=== PATIENT | female | born 1945 | race Caucasian/White ===

== ENCOUNTER 2022-12-01 08:49 | Outpatient (CLI) | payer MEDICARE, SELFPAY ==
--- NOTE | ~2022-12-01 | MM_ITS ---
EXAMINATION: MM screening leigh BI w fanta HISTORY: Screening TECHNIQUE: Craniocaudal and mediolateral oblique 3-D tomosynthesis images were obtained and synthetic 2-D images were generated. CAD analysis was submitted and interpreted. COMPARISON: No prior mammogram is available for comparison at this institution. BREAST PARENCHYMAL COMPOSITION: There are scattered areas of fibroglandular density. FINDINGS: There is no evidence of suspicious mass, calcification, or architectural distortion to sugg est malignancy in either breast. There has been no suspicious interval change. IMPRESSION: 1. No mammographic evidence of malignancy. 2. Recommend routine screening mammography in one year. BI-RADS Category 1: Negative Reviewed, dictated and finalized at location A.
== END 2022-12-01 08:50 | disposition home or self-care (01) ==
PROVIDERS: PCP Physician Assistant; Visit Provider Physician Assistant
DX: Z12.31 Encounter for screening mammogram for malignant neoplasm of breast (principal)
CPT/HCPCS: 77063; 77067

== ENCOUNTER 2023-09-09 08:01 | Outpatient (CLI) | payer MEDICARE, SELFPAY ==
--- NOTE | ~2023-09-09 | CT_ITS ---
EXAMINATION: CT brain wo con DATE: 09/09/2023 08:25 INDICATION: Syncope and collapse . TECHNIQUE: Computed tomography (CT) of the head was performed without intravenous contrast. The mA wa s adjusted according to patient size. Iterative reconstruction technique was employed. The dose-lengt h product was 645.69 mGy-cm. COMPARISON: None. FINDINGS: No acute intracranial hemorrhage or extra-axial fluid collection. No hydrocephalus, mass, or herniation. No acute ischemic infarct. Unremarkable dural venous sinus attenuation. No acute osseous abnormality. Bilateral maxillary retention cysts/polyps, the remaining aerated spaces are clear. Mild atrophy and chronic white matter change. Atherosclerotic intracranial calcification. Bilateral l ens replacements. IMPRESSION: No acute intracranial process. Reviewed, dictated and finalized at location K.
== END 2023-09-09 08:02 ==
LOC: GOSHIMG 08:03
PROVIDERS: PCP Physician Assistant; Visit Provider Nurse Practitioner
DX: R55 Syncope and collapse (principal)
CPT/HCPCS: 70450

== ENCOUNTER 2023-09-23 09:23 | Outpatient (CLI) | payer MEDICARE, SELFPAY ==
--- NOTE | 2023-09-23 09:35 | ECHO_ITS ---
Patient Info Name: Berenice Alex Age: 77 years : 1945 Gender: Female Ht: 62 in Wt: 140 lbs BSA: 1.68 m2 HR: 50 bpm BP: 167 / 72 mmHg Heart Rhythm: Sinus Rhythm Technical Quality: Good Exam Date: 09/23/2023 9:53 AM Exam Location: Echo Lab Patient Status: Outpatient Admit Date: 09/23/2023 Staff Ordering Physician: Baljinder Swartz APRN Product Management Specialist: Kd Hughes RDCS Attending Provider: Baljinder Swartz APRN Referring Physician: Cale Romano MD; Exam Type: CA echo doppler color flow Study Info Indications R55 - Syncope and collapse Complete two-dimensional, color flow and Doppler transthoracic echocardiogram is performed. Summary 1. Complete two-dimensional, color flow and Doppler transthoracic echocardiogram is performed. 2. Normal left ventricular size thickness and contractility. 3. Mild left atrial enlargement. 4. Mild MR. 5. Small amount of tricuspid regurgitation, normal RV systolic pressure. Left Ventricle Left ventricular chamber dimension is normal. Left ventricular systolic function is normal, estimated at 65-70%. The left ventricular diastolic function is normal. Right Ventricle Right ventricular chamber dimension is normal. Left Atria Left atrial chamber dimension is mildly enlarged. Right Atria Right atrial chamber dimension is normal. Aortic Valve The aortic valve is trileaflet. There is mild aortic valve sclerosis. Pulmonic Valve The pulmonic valve is normal. Mitral Valve The mitral valve has normal leaflets. There is mild mitral valve regurgitation. Tricuspid Valve The tricuspid valve leaflets are normal. There is mild tricuspid valve regurgitation. No pulmonary hypertension, estimated pulmonary arterial systolic pressure is Empty. Pericardium/Pleural The pericardium appears normal. Aorta The prox ascending aorta size is normal. Left Ventricular Outflow Tract Name Value Normal LVOT 2D LVOT Diameter 1.9 cm LVOT Doppler LVOT Peak Gradient 9 mmHg LVOT Mean Gradient 5 mmHg LVOT VTI 35 cm LVOT VTI/AV VTI Ratio 0.8 LVOT Stroke Volume 98 ml LVOT CO 4.8 l/min LVOT CI 2.9 l/min/m2 Pulmonic Valve Name Value Normal PV Doppler PV Peak Gradient 6 mmHg Mitral Valve Name Value Normal MV Doppler MV Peak Gradient 4 mmHg MV Mean Gradient 1 mmHg MV Decel [place] 442 cm/s2 MV PHT 56 ms MV Area (
--- NOTE | 2023-10-29 15:34 | WPDHOLTEREM ---
Holter/Event Monitor Holter/Event Monitor Date of procedure: 09/23/23 Holter/Event Procedure: 48 Hr Holter Monitor Indications: Possible atrial fib Conclusion: 1. 48 hour holter monitor on 09/23/23. 2. Predominant rhythm is sinus rhythm. HR range 39-90 bpm; average HR 56 bpm. HR at 39 bpm was at 02:52. 3. There are 166 premature supraventricular complexes and 29 supraventricular couplets. There are 3 episodes of atrial tachycardia, fastest at 160 bpm and longest lasting 4 beats. 4. There are 9 premature ventricular complexes. No ventricular tachycardia. 5. No sinoatrial or atrioventricular blocks. No significant pauses greater than 2 seconds. 6. No symptoms available for correlation.
== END 2023-09-23 09:24 | disposition home or self-care (01) ==
PROVIDERS: PCP Nurse Practitioner; Referring Provider Specialist; Visit Provider Nurse Practitioner
DX: I36.1 Nonrheumatic tricuspid (valve) insufficiency (principal); I34.0 Nonrheumatic mitral (valve) insufficiency
CPT/HCPCS: 93225; 93226; 93306

== ENCOUNTER 2024-10-31 08:49 | Outpatient (CLI) | payer MEDICARE, SELFPAY ==
--- NOTE | ~2024-10-31 | DEXA_ITS ---
Bone Density Report Name: PAULINO VALENCIA Age: 78 Sex: Female Ethnicity: White Date of : 1945 Indication: postmenopausal; screening for osteoporosis; height loss; hysterectomy; Referring Provider: IRMA WELDON Study: Bone densitometry was performed. Exam Date: October 31, 2024 Accession number: [id number] Bone Density: Region BMD T-score Z-score Classification AP Spine(L1-L4) 1.215 1.5 4.0 Normal Femoral Neck (Left) 0.645 -1.8 0.3 Osteopenia Total Hip (Left) 0.931 -0.1 1.8 Normal Femoral Neck (Right) 0.691 -1.4 0.7 Osteopenia Total Hip (Right) 0.941 0.0 1.9 Normal Total Hip Mean 0.936 -0.1 1.9 Normal World Health Organization criteria for BMD impression classify patients as: Normal (T-score at or above -1.0), Osteopenia (T-score between -1.0 and -2.5), or Osteoporosis (T-score at or below -2.5). 10-year Fracture Risk(1): Major Osteoporotic Fracture 13% Hip Fracture 3.3% Reported Risk Factors: [place] (), Neck BMD=0.645, BMI=28.3 (1) FRAX(R) Version 3.08. Fracture probability calculated for an untreated patient. Fracture probability may be lower if the patient has received treatment. Clinical Information Provided by Patient: Has used the following medications: Vitamin D Has the following medical conditions: Hysterectomy Patient maximum height was 62 Menopause Age: 52 No regular weight bearing exercise Drinks caffeinated beverages Onset of menses at age 16 Number of children 0 Impression: The patient has low bone mass, based on the Left Femoral Neck T-score. The patient has an estimated ten-year risk of hip fracture of 3.3% and an estimated ten-year risk of major fracture of 13%, based on the WHO FRAX algorithm. Discussion: BONE DENSITY IS LOW AT ONE OR MORE SKELETAL SITES. THE PATIENT'S BMD AND CLINICAL RISK FACTORS CONTRIBUTE TO THIS PATIENT'S INCREASED RISK OF FRACTURE. This patient's lowest T-score is low at one or more skeletal sites. It meets the World Health Organization's (WHO) criteria for ?low bone mass? (T-score between -1.0 and -2.5). The patient's 10-year risk of hip fracture as calculated by FRAX exceeds the threshold where pharmacological therapy is recommended by the National Osteoporosis Foundation (NOF). However, all treatment decisions require clinical judgment and consideration of individual patient factors, including patient preferences, comorbidities, previous drug use, risk factors not captured in the FRAX model (e.g., frailty, falls, vitamin D deficiency, increased bone turnover, interval significant decline in bone density) and possible under or overestimation of fracture risk by FRAX. The patient should follow a healthful lifestyle (good nutrition with adequate calcium and vitamin D, and appropriate weight-bearing exercise). Follow-Up: Consider a repeat BMD and Vertebral Fracture Assessment (VFA) exam in 2 years or sooner if medically necessary, to reassess this patient's status. Reported by: JAQUELIN on 10/31/2024 9:29:00 AM. Reviewed, dictated and finalized at location A.
--- OUTSIDE RECORDS SUMMARY | 2024-10-31 09:47 | XMS_ITS | Encounter Summary ---
Author Organization [facility] Healthcare Address [address] [place] [address] Care Team Providers Care Head Start Director Name Role Phone Baljinder Swartz NP Primary Care Provider [phone] Jaswant Chan Unavailable [phone] Yaniv Elmore MD Primary Care Provider [phone] Encounter Details Date Type Department Care Team (Late st Contact Info) Description 11/01/2023 Orders Only [facility] Information Management [address] [place] [id number] Scanning, Provider Social History Tobacco Use Types Packs/Day Years Used Date Smoking Tobacco: Former Comments Unknown Sex and Gender Information Value Date Recorded Sex Assigned at Not on file Legal Sex Female 2:45 PM CDT Gender Identity Not on file Sexual Orientation Not on file documented as of this encounter Plan of Treatment Not on file documented as of this encounter Procedures Procedure Name Priority Date/Time Associated Diagnosis Comments CARDIOLOGY DOCUMENT SCAN 11/01/2023 9:28 PM CDT documented in this encounter Results * Cardiology Document Scan (11/01/2023 9:28 PM CDT) Anatomical Region Laterality Modality Other us Provider Scanning CV CARDIAC SERVICES PROCEDURES Final Result documented in this encounter Visit Diagnoses Not on filedocumented in this encounter Care Teams Head Start Director Relationship Specialty Start Date End Date Baljinder Swartz NP [address] [place] [address] PCP - General Nurse Practitioner 09/23/23 03/27/24 Yaniv Elmore MD [address] [place] [address] PCP - General Family Practice 03/28/24 Jaswant Chan PA [address] [place] [address] Physician Career And Transition Teacher 09/23/23 03/27/24 documented as of this encounter
--- OUTSIDE RECORDS SUMMARY | 2024-10-31 09:47 | XMS_ITS | Clinical Summary ---
Author Organization [facility] Address [address] [place] [address] Phone Care Team Providers Care Mascara Molder Name Role Phone Unavailable Primary Care Provider Unavailabl e Social History Tobacco Use Types Packs/Day Years Used Date Smoking Tobacco: Never Assessed Comments Unknown Sex and Gender Information Value Date Recorded Sex Assigned at Not on file Legal Sex Female 7:31 PM MDT Gender Identity Not on file Sexual Orientation Not on file Plan of Treatment Not on file
--- OUTSIDE RECORDS SUMMARY | 2024-10-31 09:47 | XMS_ITS | Clinical Summary ---
Author Organization [facility] [address] Address [address] [place] [address] Care Team Providers Care Special Events Planner Name Role Phone aYniv Elmore MD Primary Care Provider [phone] Allergies Active Allergy Reactions Criticality Noted Date Comments Morphine Itching Low 07/03/2021 Medications ALPRAZolam (XANAX) 0.25 mg tablet Take 1 tablet (0.25 mg total) by mouth nightly as needed Active amLODIPine (NORVASC) 10 mg tablet Take 1 tablet (10 mg total) by mouth daily Active simvastatin (ZOCOR) 20 mg tablet Take 1 tablet (20 mg total) by mouth nightly Active spironolactone (ALDACTONE) 50 mg tablet Take 1 tablet (50 mg total) by mouth daily Active traZODone (DESYREL) 50 mg tablet Take 1 tablet (50 mg total) by mouth nightly Active lisinopriL (PRINIVIL,ZESTR [place]) 40 mg tablet Take 1 tablet (40 mg total) by mouth daily 06/25/2022 Active Restasis 0.05 % ophthalmic emulsion 1 drop 2 (two) times a day 07/01/2022 Active terbinafine (LamiSIL) 250 mg tablet Take 1 tablet (250 mg total) by mouth Active Active Problems Problem Noted Date Diagnosed Date Hypertension 08/27/2021 Encounters Date Type Department Care Team Description 10/03/2024 10:15 AM CDT Office Visit [facility] Medical [facility] Cardiology at [address] [place] [id number] Cale Romano MD Primary hypertension (Primary Dx) from Last 3 Months Surgical History Surgery Date Site/Laterality Comments KNEE SURGERY 02/16/2004 - 02/14/2005 Right FOOT SURGERY 02/15/2014 - 02/14/2015 Right HYSTERECTOMY 02/15/1997 - 02/14/1998 COSMETIC SURGERY Medical History Medical History Date Comments Hypertension Cataract Family History Medical History Relation Name Comments Diabetes Brother John Hypertension Father Ajay Stroke Father Ajay cerebrovascular accident Father Ajay Hearing loss Mother Birgit Heart disease Mother Birgit Diabetes Sister Apurva Heart disease Sister Apurva Relation Name Status Comments Brother John Father Ajay Mother Birgit Sister Apurva Social History Tobacco Use Types Packs/Day Years Used Date Smoking Tobacco: Former Smokeless Tobacco: Never Tobacco Cessation:Counseling Given: Not Answered Comments Unknown Sex and Gender Information Value Date Recorded Sex Assigned at Not on file Legal Sex Female 2:45 PM CDT Gender Identity Not on file Sexual Orientation Not on file Obstetrics History Last Filed Vital Signs Vital Sign Reading Time Taken Comments Blood Pressure 146/58 10/03/2024 10:21 AM CDT Pulse 52 10/03/2024 10:21 AM CDT Temperature 37.2 C (98.9 F) 12/13/2023 4:04 PM CDT Respiratory Rate 18 12/13/2023 4:04 PM CDT Oxygen Saturation 98% 10/03/2024 10: 21 AM CDT Inhaled Oxygen Concentration - - Weight 68.9 kg (151 lb 14.4 oz) 025 10:21 AM CDT Height 165.1 cm (5' 5) 10/03/2024 10:2 1 AM CDT Body Mass Index 25.28 10/03/2024 10:21 AM CDT Plan of Treatment Health Maintenance Due Date Last Done Comments Depression Screening 1945 Fall Risk Assessment 1945 Hepatitis C Screening 1945 Osteoporosis Screening-Bone Density Scan 1945 DTaP/Tdap/Td Vaccine (1 - Tdap) 12/23/1958 Hepatitis B Screening 12/23/1965 Pneumococcal vaccine 65+ (1 of 1 - PCV) 12/23/1997 Zoster Vaccine (1 of 2) 12/23/1997 Well Visit 65+ 12/23/2012 Covid-19 Vaccine ( season) 2024 Influenza Vaccine (#1) [address] [facility] MEDICARE [facility]AR [facility] Care Teams Special Events Planner Relationship Specialty Start Date End Date Yaniv Elmore MD [address] [place] [address] PCP - General Family Practice 03/28/24
--- OUTSIDE RECORDS SUMMARY | 2024-10-31 09:47 | XMS_ITS | Encounter Summary ---
Author Organization [facility] Address [address] [address] Phone Care Team Providers Care Computer Applications Developer Name Role Phone Unavailable Primary Care Provider Unavailabl e Encounter Details Date Type Department Care Team (Late st Contact Info) Description 03/21/2019 Office Visit [facility] [address] [place] [address] ProviderBrenden MD [address] [place] [address] Social History Tobacco Use Types Packs/Day Years Used Date Smoking Tobacco: Never Assessed Comments Unknown Sex and Gender Information Value Date Recorded Sex Assigned at Not on file Legal Sex Female 7:31 PM MDT Gender Identity Not on file Sexual Orientation Not on file documented as of this encounter Plan of Treatment Not on file documented as of this encounter Visit Diagnoses Not on filedocumented in this encounter
== END 2024-10-31 08:50 | disposition home or self-care (01) ==
LOC: ANHFOHIMG 08:50
PROVIDERS: PCP Family Medicine; Visit Provider Family Medicine
DX: M85.89 Other specified disorders of bone density and structure, multiple sites (principal); Z78.0 Asymptomatic menopausal state; Z13.820 Encounter for screening for osteoporosis
CPT/HCPCS: 77080

== ENCOUNTER 2024-11-01 11:01 | Emergency (ER) | payer MEDICARE, SELFPAY ==
--- NOTE | ~2024-11-01 | CT_ITS ---
EXAMINATION: CT abdomen pelvis w con DATE: 11/01/2024 13:18 INDICATION: Left lower quadrant abdominal pain. TECHNIQUE: Computed tomography (CT) of the abdomen and pelvis was performed with 100 mL Omnipaque 350 intravenous contrast. Automated exposure control and iterative reconstruction technique were employed. The dose-length product was 402.73 mGy-cm. COMPARISON: None. FINDINGS: The visualized portions of lung bases demonstrate mild atelectasis. No pleural effusion. There is left atrial enlargement of the heart. There are coronary artery calcifications. No pericardial effusion. The liver, gallbladder, spleen, pancreas, and adrenal glands are normal. There is cortical thinning of the kidneys. There is a punctate parenchymal calcification in right kidney. There is a 4.4 cm cyst in left kidney. There are scattered diverticula in the colon. There is fat stranding around the ascending, descending, and sigmoid colon, worst around a diverticulum of the sigmoid colon, consistent with diverticulitis. The appendix is normal. There are no pathologically enlarged lymph nodes. There is trace pelvic ascites. There is lumbar levoscoliosis and severe spondylosis. IMPRESSION: 1. Sigmoid diverticulitis. No perforation or abscess. Reviewed, dictated and finalized at location E.
--- OUTSIDE RECORDS SUMMARY | 2024-11-01 09:00 | XMS_ITS | Encounter Summary ---
Author Organization [facility] Healthcare Address [address] [place] [address] Care Team Providers Care Mattress Weaver Name Role Phone Yaniv Elmore MD Primary Care Provider [phone] Reason for Visit * Reason Comments stomach issues Stomach issues for f our days. Diarrhea has let up by using Immodium. But still cramping. Flu shot Wednesday. Ate [place] [facility] and thought salad may have caused issue for food poisoning. Feels bloated. Encounter Details Date Type Department Care Team (Late st Contact Info) Description 11/01/2024 9:00 AM CDT Office Visit [facility] Medical Group Convenient Care at [address] [address] Avelina Pinto ORDER PROCESSING SPECIALIST [address] [place] [address] [address] [place] [address] Acute left lower quadrant pain (Primary Dx) Social History Tobacco Use Types Packs/Day Years Used Date Smoking Tobacco: Former Smokeless Tobacco: Never Comments Unknown Sex and Gender Information Value Date Recorded Sex Assigned at Not on file Legal Sex Female 2:45 PM CDT Gender Identity Not on file Sexual Orientation Not on file documented as of this encounter Last Filed Vital Signs Vital Sign Reading Time Taken Comments Blood Pressure 154/60 11/01/2024 8:50 AM CDT Pulse 68 11/01/2024 8:50 AM CDT Temperature 36.9 C (98.5 F) 11/01/2024 8:50 AM CDT Respiratory Rate 20 11/01/2024 8:50 AM CDT Oxygen Saturation 98% 11/01/2024 8:50 AM CDT Inhaled Oxygen Concentration - - Weight 67.6 kg (149 lb) 11/01/2024 8:50 AM CDT Height 165.1 cm (5' 5) 11/01/2024 8:50 AM CDT Body Mass Index 24.79 11/01/2024 8:50 AM CDT documented in this encounter Patient Instructions * Patient Instructions* Avelina Pinto ORDER PROCESSING SPECIALIST - 11/01/2024 9:00 AM CDT Left lower quadrant abdominal pain x 4 days with diarrhea. Denies vomiting or fever. Very tender upon exam. Concern for diverticulitis. Urine from today. Color, Urine, POC Yellow Clarity, ur, POC Clear Clear Glucose, ur, POC Negative Negative Bilirubin, ur, POC Negative Negative Ketones, ur, POC Negative Negative Specific Exline, POC 1.003 - 1.030 1.020 Blood, ur, POC Negative Negative pH, ur, POC 5.0 - 8.0 5.5 Protein, ur, POC Negative 30. Abnormal Urobilinogen, urine, POC 0.2 - 1.0 mg/dL 0.2 Nitrite, ur, POC Negative Negative Leukocytes, ur, POC Negative Negative documented in this encounter Plan of Treatment Scheduled Orders Name Type Priority Associated Diagnoses Orde r Schedule Urine culture Urine, clean voided Microbiology Routine Acute left lower quadrant pain Expected: 11/01/2024, Expires: 11/01/2025 documented as of this encounter Procedures Procedure Name Priority Date/Time Associated Diagnosis Comments POCT URINALYSIS DIPSTICK Routine 11/01/2024 9:58 AM CDT Acute left lower quadrant pain documented in this encounter Results * (ABNORMAL) POCT urinalysis dipstick (11/01/2024 9:58 AM CDT) Color, Urine, POC Yellow Clarity, ur, POC Clear Clear Glucose, ur, POC Negative Negative Bilirubin, ur, POC Negative Negative Ketones, ur, POC Negative Negative Specific Exline, POC 1.020 1.003 - 1.030 Blood, ur, POC Negative Negative pH, ur, POC 5.5 5.0 - 8.0 Protein, ur, POC 30.(A) Negative Urobilinogen, urine, POC 0.2 0.2 - 1.0 mg/dL Nitrite, ur, POC Negative Negative Leukocytes, ur, POC Negative Negative Lot Number [id number] Urine 11/01/2024 9:58 AM CDT Avelina Pinto ORDER PROCESSING SPECIALIST POINT OF CARE TEST ORDERAB LES Final Result documented in this encounter Visit Diagnoses Diagnosis Acute left lower quadrant pain- Primary documented in this encounter Care Teams Mattress Weaver Relationship Specialty Start Date End Date Yaniv Elmore MD [address] [place] [address] PCP - General Family Practice 03/28/24 documented as of this encounter
[2024-11-01 11:32] VITALS: BP 172/60; PULSE 67; RESP 14; TEMP 36.9; O2SAT 98
[2024-11-01 11:44] LABS: Hematocrit 33.1 % (37.0-47.0); Hemoglobin 11.7 g/dL (12.0-15.0); Immature Granulocyte Percent A 0.3 % (0-0.5); Lymphocytes Absolute Auto 0.92 K/mm3 (0.9-3.2); Mean Corpuscular HGB Conc 35.3 g/dl (32-36); Mean Corpuscular Hemoglobin 31.8 pg (26-34); Mean Corpuscular Volume 89.9 fl (80-100); Nucleated Red Blood Cells Absolute Auto 0.000 K/mm3 (0.0-0.012); Nucleated Red Blood Cells Perc 0.0 % (0.0-0.2); Platelet Count Result 313 k/mm3 (150-375); Red Blood Count 3.68 M/mm3 (4.2-5.4); White Blood Count 12.8 K/mm3 (4.5-10.0)
--- OUTSIDE RECORDS SUMMARY | 2024-11-01 11:51 | XMS_ITS | Clinical Summary ---
Author Organization [facility] [address] Address [address] [place] [address] Care Team Providers Care Impact Retail Service Merchandiser Name Role Phone Yaniv Elmore MD Primary Care Provider [phone] Allergies Active Allergy Reactions Criticality Noted Date [...] Encounters Date Type Department Care Team Description 11/01/2024 9:00 AM CDT Office Visit [facility] Care at [address] [phone] Avelina Pinto NP Acute left lower quadrant pain (Primary Dx) 10/03/2024 10:15 AM CDT Office Visit [facility] Cardiology at [address] [place] [phone] Cale Romano MD Primary hypertension (Primary Dx) [...] Mass Index 24.79 11/01/2024 8:50 AM CDT Plan of Treatment Health Maintenance Due Date Last Done Comments Depression Screening 1945 Fall Risk Assessment 1945 Hepatitis C Screening 1945 Osteoporosis Screening-Bone Density Scan 1945 DTaP/Tdap/Td Vaccine (1 - Tdap) 12/23/1958 Hepatitis B Screening 12/23/1965 Pneumococcal vaccine 65+ (1 of 1 - PCV) 12/23/1997 Zoster Vaccine (1 of 2) 12/23/1997 Well Visit 65+ 12/23/2012 Covid-19 Vaccine (2 - season) 2024 Influenza Vaccine (#1) 2024 Procedures Procedure Name Priority Date/Time Associated Diagnosis Comments POCT URINALYSIS DIPSTICK Routine 11/01/2024 9:58 AM CDT Acute left lower quadrant pain from Last 3 Months Results * (ABNORMAL) POCT urinalysis dipstick (11/01/2024 9:58 AM CDT) Color, Urine, POC Yellow Clarity, ur, POC Clear Clear Glucose, ur, POC Negative Negative Bilirubin, ur, POC Negative Negative Ketones, ur, POC Negative Negative Specific [place], POC 1.020 1.003 - 1.030 Blood, ur, POC Negative Negative pH, ur, POC 5.5 5.0 - 8.0 Protein, ur, POC 30.(A) Negative Urobilinogen, urine, POC 0.2 0.2 - 1.0 mg/dL Nitrite, ur, POC Negative Negative Leukocytes, ur, POC Negative Negative Lot Number [id number] Urine 11/01/2024 9:58 AM CDT Avelina Pinto [employer] POINT OF CARE TEST ORDERAB LES Final Result from Last 3 Months Insurance MEDICARE AARP [facility] Member Subscriber Plan / Payer ( fective 2021-) Name:Berenice Alex Relation to Subscriber:Self Name:Berenice Alex Payer ID:[id number] Group ID:Not on file Type:COMMERCIAL Address: [address] [place] [phone] MEDICARE MEDICARE AARP AARP Care Teams Impact Retail Service Merchandiser Relationship Specialty Start Date End Date Yaniv Elmore MD [address] [place], [place] [id number] PCP - General Family Practice 03/28/24
--- OUTSIDE RECORDS SUMMARY | 2024-11-01 11:51 | XMS_ITS | Clinical Summary ---
Author Organization [facility] Address [address], [place] [address] Phone Care Team Providers Care Bods Developer Name Role Phone Unavailable Primary Care [...]
--- OUTSIDE RECORDS SUMMARY | 2024-11-01 11:51 | XMS_ITS | Encounter Summary ---
Author Organization [facility] Healthcare Address [address] [place] [address] Care Team Providers Care Sales And Marketing Executive Name Role Phone Baljinder Swartz NP Primary Care Provider + [phone] Jaswant Chan Unavailable [phone] Yaniv Elmore MD Primary Care Provider [phone] Encounter Details Date Type Department Care Team (Late st Contact Info) Description 11/01/2023 Orders Only [facility] Health Information Management [address] [place] [address] Scanning, Provider Social History Tobacco Use [...] on filedocumented in this encounter Care Teams Sales And Marketing Executive Relationship Specialty Start Date End Date Baljinder Swartz NP [address] [place] [address] PCP - General Nurse Practitioner 09/23/23 03/27/24 Yaniv Elmore MD [address] [place] [address] PCP - General Family Practice 03/28/24 Jaswant Chan PA [address] [place] [address] Physician Laboratory Operations Coordinator 09/23/23 03/27/24 documented as of this encounter
--- OUTSIDE RECORDS SUMMARY | 2024-11-01 11:51 | XMS_ITS | Encounter Summary ---
Author Organization [facility] Address [address], [place] [address] Phone Care Team Providers Care Software Design Manager Name Role Phone Unavailable Primary Care Provider Unavailabl e Encounter Details Date Type Department Care Team (Late st Contact Info) Description 03/21/2019 Office Visit [facility] [address] [place] [address] ProviderBrenden MD [address] [place] [address] Social History Tobacco Use Types Packs/Day [...]
[2024-11-01] MEDS: ONDANSETRON INJ 4 MG/2 ML VIAL IV PUSH (12:12)
[2024-11-01] MEDS: fentaNYL CITRATE INJ (*CRX) 100 MCG/2 ML VIAL 25 MCG IV PUSH (12:12)
[2024-11-01 12:25] LABS: Add Urine Microscopic? YES; Appearance Urine Clear (Clear); Glucose Urine UA Negative (Negative); Leukocyte Esterase Ur Negative LEU/UL (Negative); Nitrate Urine Negative (Negative); Non Pathogenic Casts 0-2; Specific Grav Ur 1.009 (1.001-1.035)
[2024-11-01 12:46] LABS: Alanine Aminotransferase 22 U/L (6-35); Albumin Level 4.3 g/dL (3.5-5.1); Alkaline Phosphatase 63 U/L (38-126); Anion Gap 8 mmol/L (4-12); Aspartate Amino Transferase 30 U/L (14-36); Bilirubin,Total 0.4 mg/dL (0.2-1.3); Blood Urea Nitrogen 15 mg/dL (7-17); Calcium 9.1 mg/dL (8.4-10.2); Carbon Dioxide 23 mmol/L (22-30); Chloride 94 mmol/L (98-107); Estimated CRCL calculation 38 ml/min; Estimated Glomerular Filt Rate 55; Glucose 113 mg/dL (65-110); Lipase 17 U/L (23-300); Potassium 4.5 mmol/L (3.4-5.0); Sodium 125 mmol/L (137-145); Total Protein 7.8 g/dL (6.3-8.2)
--- NOTE | 2024-11-01 14:51 | ED_ITS ---
HPI - Abdominal Pain General Chief Complaint: Abdominal Pain Stated Complaint: abdominal pain Time Seen by Provider: 11/01/24 11:51 Related Data Home Medications ?Medication ?Instructions ?Recorded ?Confirmed ?Last Taken ?Type terbinafine HCl 250 mg tablet 250 mg PO DAILY 09/03/23 09/03/23 Unknown History Allergies Allergy/AdvReac Type Severity Reaction Status Date / Time morphine Allergy Itching Verified 11/01/24 11:35 [facility] Past Medical History Medical History BMI 25.0-25.9,adult Hypertension Family History Family History Father Hypertension Cerebrovascular accident Mother Heart disease Sibling Diabetes mellitus Sibling Diabetes mellitus Social History Social History Smoking status: Never smoker Second hand tobacco smoke exposure: No Alcohol intake: current Substance use: never Substance use type: does not use Lack of Transportation: No Lack of Food: Never True Current Housing: I Have Housing Concerned About Future Housing: No Difficulty Paying Gas/Electric Bills: No Difficulty Paying for Meds: No Currently Unemployed: No Education: High School Diploma/GED Difficulty w/ Childcare or Family Care: No Living arrangements: with family 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 Gender identity (if verbalized by the patient): Female Course Vital Signs Vital signs: Vital Signs Temperature 98.5 F 11/01/24 11:32 Pulse Rate 67 11/01/24 11:32 Respiratory Rate 14 11/01/24 11:32 Blood Pressure 172/60 H 11/01/24 11:32 Pulse Oximetry 98 11/01/24 11:32 Oxygen Delivery Room Air 11/01/24 11:32 Temperature 98.5 F 11/01/24 11:32 Pulse Rate 67 11/01/24 11:32 Respiratory Rate 14 11/01/24 11:32 Blood Pressure 172/60 H 11/01/24 11:32 Pulse Oximetry 98 11/01/24 11:32 Oxygen Delivery Room Air 11/01/24 11:32 MDM - Abdominal Pain Lab Data 11/01/24 11:30 11/01/24 11:30 Labs: Lab Results 09/17/25 09/17/25 Range/Units 11:30 12:17 WBC 12.8 H (4.5-10.0) K/mm3 RBC 3.68 L (4.2-5.4) M/mm3 Hgb 11.7 L (12.0-15.0) g/dL Hct 33.1 L (37.0-47.0) % MCV 89.9 (80-100) fl MCH 31.8 (26-34) pg MCHC 35.3 (32-36) g/dl RDW 12.4 (11.5-14.5) % Plt Count 313 (150-375) k/mm3 MPV 9.0 (7.4-10.4) fl Immature Gran % (Auto) 0.3 (0-0.5) % Neut % (Auto) 82.3 H (45.5-73.1) % Lymph % (Auto) 7.2 L (18.3-44.2) % [place] % (Auto) 9.5 H (2.6-8.5) % Eos % (Auto) 0.3 (0-4.4) % Baso % (Auto) 0.4 (0.2-1.2) % Lymph # (Auto) 0.92 (0.9-3.2) K/mm3 [place] # (Auto) 1.2 H (0.1-0.6) K/mm3 Eos # (Auto) 0.0 (0-0.3) K/mm3 Baso # (Auto) 0.1 (0.0-0.1) K/mm3 Abs Immat Gran (auto) 0.04 H (0.00-0.031) K/mm3 Absolute Neuts (auto) 10.6 H (1.3-6.7) K/mm3 Absolute Nucleated RBC 0.000 (0.0-0.012) K/mm3 Nucleated RBC % 0.0 (0.0-0.2) % Sodium 125 L (137-145) mmol/L Potassium 4.5 (3.4-5.0) mmol/L Chloride 94 L (98-107) mmol/L Carbon Dioxide 23 (22-30) mmol/L Anion Gap 8 (4-12) mmol/L BUN 15 (7-17) mg/dL Creatinine 0.99 (0.7-1.0) mg/dL Estim Creat Clear Calc 38 ml/min Estimated GFR 55 L (59 - ) Glucose 113 H (65-110) mg/dL Calcium 9.1 (8.4-10.2) mg/dL Total Bilirubin 0.4 (0.2-1.3) mg/dL AST 30 (14-36) U/L ALT 22 (6-35) U/L Alkaline Phosphatase 63 (38-126) U/L Total Protein 7.8 (6.3-8.2) g/dL Albumin 4.3 (3.5-5.1) g/dL Lipase 17 L (23-300) U/L Urine Color Yellow (Yellow) Urine Appearance Clear (Clear) Urine pH 5.5 (5.0-9.0) Ur Specific [place] 1.009 (1.001-1.035) Urine Protein Trace (Negative) mg/dL Urine Glucose (UA) Negative (Negative) mg/dL Urine Ketones Negative (Negative) mg/dL Ur Blood (Man) Negative (Negative) Urine Nitrate Negative (Negative) Urine Bilirubin Negative (Negative) Urine Urobilinogen 0.2 (<2.0) mg/dL Leukocyte Esterase Rfl Negative (Negative) RAMILA/UL Urine RBC 0-2 (0-2) /hpf Urine WBC 0-5 (0-3) /hpf Ur Squamous Epith Cells None seen (Few) /hpf Urine Bacteria None seen /hpf Urine Casts 0-2 Imaging Data Radiologist's impression: ITS Impressions Abdomen/Pelvis CT 11/01/24 13:29 IMPRESSION: 1. Sigmoid diverticulitis. No perforation or abscess. Discharge Plan Discharge Clinical Impression: Diverticulitis Patient Disposition: Home Condition: Stable Instructions: Diverticulitis (ED) Additional Instructions: Return to the emergency department if you develop severe abdominal pain, severe nausea and vomiting to the point where you are unable to keep down fluids, if you develop chest pain or difficulty breathing, blood in your stool, dizziness or fainting, or if you develop any other new or concerning symptoms as these could be signs of more serious medical illness. Try to stay well hydrated. Patient Language: Amharic Prescriptions: New hydrocodone-acetaminophen 5-325 mg tablet 1 tablet PO Q6H PRN (Reason: pain) Qty: 12 0RF ondansetron 4 mg tablet,disintegrating 4 mg PO Q6H PRN (Reason: nausea and vomiting) Qty: 10 0RF amoxicillin-pot clavulanate 875-125 mg tablet 1 tablet PO Q12H Qty: 14 0RF No Action Restasis MultiDose 0.05 % drops 1 drp EACH EYE Q12H Qty: 5.5 3RF terbinafine HCl 250 mg tablet 250 mg PO DAILY Rx Instructions: for 7 days one week out to the month simvastatin [Zocor] 20 mg tablet 20 mg PO DAILY Qty: 90 3RF amlodipine 10 mg tablet 10 mg PO DAILY Qty: 90 1RF trazodone 50 mg tablet 50 mg PO QHS Qty: 90 1RF spironolactone 50 mg tablet See Rx Instructions .ROUTE .COMPLEX Qty: 90 0RF Dose Instruction: Take 1 tablet by mouth once daily Rx Instructions: Take 1 tablet by mouth once daily alprazolam 0.25 mg tablet 0.25 mg PO QHS PRN (Reason: anxiety) Qty: 90 0RF Rx Instructions: must last 90 days lisinopril 40 mg tablet 40 mg PO DAILY Qty: 90 1RF Follow-up/Referrals: Yaniv Elmore MD [Primary Care Provider, Family Practice] - 1 Week
== END 2024-11-01 15:18 | disposition home or self-care (01) ==
PROVIDERS: Emergency Provider Emergency Medicine; PCP Family Medicine
DX: K57.92 Diverticulitis of intestine, part unspecified, without perforation or abscess without bleeding (principal); I10 Essential (primary) hypertension
CPT/HCPCS: 36415; 74177; 80053; 81001; 83690; 85025; 96374; 96375; 99284; J2405; J3010; Q9967

== ENCOUNTER 2024-11-03 09:42 | Inpatient (IN) | payer MEDICARE, SELFPAY ==
--- OUTSIDE RECORDS SUMMARY | 2024-11-01 09:06 | XMS_ITS | Encounter Summary ---
Author Organization [facility] Healthcare Address [address] [place] [address] Care Team Providers Care Textiles And Clothing Teacher Name Role Phone Yaniv Elmore MD Primary Care Provider [phone] Encounter Details Date Type Department Care Team (Latest Contact Info) Description 11/01/2024 9:06 AM CDT - 11/01/2024 11:59 PM CDT Hospital Encounter [address] [address] Acute left lower quadrant pain Discharge Disposition: Discharge to home or self care Social History Tobacco Use Types Packs/Day Years Used Date Smoking Tobacco: Former Smokeless Tobacco: Never Comments Unknown Sex and Gender Information Value Date Recorded Sex Assigned at Not on file Legal Sex Female 2:45 PM CDT Gender Identity Not on file Sexual Orientation Not on file documented as of this encounter Medications at Time of Discharge ALPRAZolam (XANAX) 0.25 mg tablet Take 1 tablet (0.25 mg total) by mouth nightly as needed amLODIPine (NORVASC) 10 mg tablet Take 1 tablet (10 mg total) by mouth daily lisinopriL (PRINIVIL,ZESTRIL ) 40 mg tablet Take 1 tablet (40 mg total) by mouth daily 06/25/2022 Restasis 0.05 % ophthalmic emulsion 1 drop 2 (two) times a day 07/01/2022 simvastatin (ZOCOR) 20 mg tablet Take 1 tablet (20 mg total) by mouth nightly spironolactone (ALDACTONE) 50 mg tablet Take 1 tablet (50 mg total) by mouth daily terbinafine (LamiSIL) 250 mg tablet Take 1 tablet (250 mg total) by mouth traZODone (DESYREL) 50 mg tablet Take 1 tablet (50 mg total) by mouth nightly documented as of this encounter Discharge Disposition Disposition Code Departure Means Destination Discharge to home or self care documented in this encounter Plan of Treatment Not on file documented as of this encounter Procedures Procedure Name Priority Date/Time Associated Diagnosis Comments URINE CULTURE Routine 11/01/2024 10:30 AM CDT Acute left lower quadrant pain documented in this encounter Results * Urine culture Urine, clean voided (11/01/2024 10:30 AM CDT) Report Final Report: Less than 100,000 colonies/mL (clinically insignificant growth based on current clinical standards) Comment:Testing performed by : [facility], [address] [place]., [address] Organism (CLINICALLY INSIGNIFICANT GROWTH RAMSEY PHELPS Urine, clean voided 11/01/2024 10:30 AM CDT 11/01/2024 4:21 PM CDT Narrative RAMSEY PHELPS - 11/02/2024 5:20 PM CDT Testing performed by [facility] Microbiology Laboratory ([phone]) Avelina Pinto NP LAB MICROBIOLOGY - GENERAL ORDERABLES Final Result RAMSEY PHELPS [address] Department [place] [address] documented in this encounter Visit Diagnoses Diagnosis Acute left lower quadrant pain documented in this encounter Care Teams Textiles And Clothing Teacher Relationship Specialty Start Date End Date Yaniv Elmore MD [address] [place] [address] PCP - General Family Practice 03/28/24 documented as of this encounter
--- OUTSIDE RECORDS SUMMARY | 2024-11-01 09:06 | XMS_ITS | Encounter Summary ---
Author Organization [facility] Healthcare Address [address] [place] [address] Care Team Providers Care Motor Coach Supervisor Name Role Phone Yaniv Elmore MD Primary Care Provider [phone] Encounter Details Date Type Department Care Team (Latest Contact Info) Description 11/01/2024 9:06 AM CDT - 11/01/2024 11:59 PM CDT Hospital Encounter [address] [address] Acute left lower quadrant pain Discharge Disposition: [...] current clinical standards) Comment:Testing performed by : [facility], [address] [place]., [address] Organism (CLINICALLY INSIGNIFICANT GROWTH RAMSEY PHELPS Urine, clean voided 11/01/2024 10:30 AM CDT 11/01/2024 4:21 PM CDT Narrative RAMSEY PHELPS - 11/02/2024 5:20 PM CDT Testing performed by [facility] Microbiology Laboratory ([phone]) Avelina Pinto NP LAB MICROBIOLOGY - GENERAL ORDERABLES Final Result RAMSEY PHELPS [address] [address] Department [place] [address] documented in this encounter Visit Diagnoses Diagnosis Acute left lower quadrant pain documented in this encounter Care Teams Motor Coach Supervisor Relationship Specialty Start Date End Date Yaniv Elmore MD [address] [place] [address] PCP - General Family Practice 03/28/24 documented as of this encounter
[2024-11-03] VITALS (14 sets, daily range): BP systolic 112–163; BP diastolic 49–74; PULSE 76–92; RESP 18–29; TEMP 37.1–37.6; O2SAT 89–99; BMI 28.1
--- NOTE | ~2024-11-03 | XR_ITS ---
EXAMINATION: XR chest 1V portable COMPARISON: No comparisons available. HISTORY: effusion FINDINGS: Small left basilar infiltrate and effusion. Moderate right basilar infiltrate and effusion. No pneumothorax. Heart is normal size. Mediastinal and hilar contours are within normal limits. Bony thorax no acute abnormality. Miscellaneous: None Impression: Bilateral pneumonia. The findings are progressed compared to the previous study Reviewed, dictated and finalized at location A. Impression: Bilateral pneumonia. The findings are progressed compared to the previous study
--- NOTE | ~2024-11-03 | XR_ITS ---
EXAMINATION: XR abdomen/kub 1V, 11/05/2024 0:20 CDT HISTORY: Fecal impaction COMPARISON: No comparisons available. Technique: 3 view. Findings: Minimal fecal content, no dilated large bowel loops however there are dilated small bowel loops the largest 4 cm. No free air. No abnormal calcifications No acute osseous abnormality. Impression: 1. Findings concerning for small bowel obstruction. CT is suggested Reviewed, dictated and finalized at location A. Impression: 1. Findings concerning for small bowel obstruction. CT is suggested
--- NOTE | ~2024-11-03 | XR_ITS ---
EXAMINATION: XR_CXR1VTHORA_CR DATE: 11/08/2024 11:26 INDICATION: Bilateral pleural effusions. Respiratory failure. TECHNIQUE: frontal view of the chest was obtained. COMPARISON: Chest radiograph dated 11/06/[address] dated 11/05/2024 FINDINGS: Small lung volumes. Airspace opacities at the bilateral lower lung zones. No pulmonary edema or pneumothorax. Heart size is normal. Right upper extremity peripherally inserted central venous catheter (PICC) tip at the caudal superior vena cava. Colonic interposition underlying the right hemidiaphragm with suggestion of some colonic wall thickening suspicious for colitis. IMPRESSION: 1. No pneumothorax post left thoracentesis. 2. Small lung volumes with airspace opacities in bilateral lower lung zones which could represent atelectasis, pneumonia, small pleural effusions or some combination thereof. 3. Wall thickening at the hepatic flexure of the colon suspicious for colitis. Reviewed, dictated and finalized at location A. IMPRESSION: 1. No pneumothorax post left thoracentesis. 2. Small lung volumes with airspace opacities in bilateral lower lung zones whi ch could represent atelectasis, pneumonia, small pleural effusions or some comb ination thereof. 3. Wall thickening at the hepatic flexure of the colon suspicious for colitis.
--- NOTE | ~2024-11-03 | XR_ITS ---
EXAMINATION: XR chest 2V, 11/26/2024 9:20 CDT HISTORY: Fluid overload COMPARISON: No comparisons available. Technique: 2 views obtained. Findings: Moderate pulmonary venous congestion. Small basilar infiltrates and effusions. No pneumothorax. Mild cardiomegaly. Mediastinal and hilar contours are within normal limits. Bony thorax no acute abnormality. Right PICC line in the SVC. Impression: CHF. Superimposed pneumonia is suspected Reviewed, dictated and finalized at location P. Impression: CHF. Superimposed pneumonia is suspected
--- NOTE | ~2024-11-03 | US_ITS ---
EXAMINATION: US venous doppler [facility], 11/19/2024 18:23 CDT HISTORY: swelling COMPARISON: None Technique: Parnell-scale and color Doppler images were attempted of the lower saphenofemoral junction, common femoral vein,superficial femoral vein, proximal deep femoral vein, proximal deep femoral vein, popliteal vein and posterior tibial veins. Findings: Deep Venous System:Normal flow, augmentation and compressibility. No echogenic thrombus identified. Superficial Venous SystemNo superficial thrombophlebitis. Soft tissues: Soft tissues are unremarkable. Impression: Negative for DVT. Reviewed, dictated and finalized at location P. Impression: Negative for DVT.
--- NOTE | ~2024-11-03 | US_ITS ---
EXAMINATION: US renal BI, 11/04/2024 16:55 CDT HISTORY: DONOVAN Comparison: None Technique: Parnell-scale and color Doppler images were obtained. Findings: KIDNEYS: The renal cortices are intact with no solid masses or calculi, no hydronephrosis. Right Kidney: Right kidney 9.2 x 6.3 x 5.4 cm. Left Kidney: Left kidney lower pole simple cyst 4.2 x 3.4 cm. Left kidney 8.4 x 5.7 x 4.7 cm. Bladder: Holland catheter in the bladder. Incidental minimal ascites noted around the liver.. Impression: Simple appearing left renal cyst. No significant medical renal disease or obstruction Reviewed, dictated and finalized at location A. Impression: Simple appearing left renal cyst. No significant medical renal disease or obstr uction
--- NOTE | ~2024-11-03 | XR_ITS ---
EXAMINATION: XR chest port-a-cath/central 11/10/2024 13:23 INDICATION: Temp dialysis catheter placement TECHNIQUE:A single AP semiupright portable frontal image of the chest was obtained. COMPARISON: 11/09/2024 FINDINGS: Double-lumen catheter with its tips projecting over the right atrium. Grossly stable right PICC line. Cardiomediastinal silhouette is enlarged. No pneumothorax. Moderate-sized bilateral pleural effusions with adjacent consolidations similar to the study from 11/09/2024. IMPRESSION: 1: Double-lumen catheter with its tips projecting over the right atrium. 2. Moderate-sized bilateral pleural effusions with adjacent consolidations similar to the study from 11/09/2024. Recommend follow-up to resolution. Reviewed, dictated and finalized at location Q. IMPRESSION: 1: Double-lumen catheter with its tips projecting over the right atrium. 2. Moderate-sized bilateral pleural effusions with adjacent consolidations sim ilar to the study from 11/09/2024. Recommend follow-up to resolution.
--- NOTE | ~2024-11-03 | XR_ITS ---
Examination: XR chest 1V portable Clinical History: a fib rvr Comparison: None Technique: Portable AP Findings: Heart size normal. Mild bibasilar opacity, left lung worse. Mild CP angle blunting. No acute bony abnormality. Colonic bowel wall thickening; colitis. IMPRESSION: 1. Mild bibasilar atelectasis and/or airspace disease. 2. Small pleural effusions. Reviewed, dictated and finalized at location R.
--- NOTE | ~2024-11-03 | XR_ITS ---
EXAMINATION: XR_CXR1VTHORA_CR, 11/21/2024 14:45 CDT HISTORY: bilateral pleural effusions/POST THORA COMPARISON: No comparisons available. Technique: Single view. Findings: Moderate right basilar infiltrate and effusion. No pneumothorax. Moderate cardiomegaly. Mediastinal and hilar contours are within normal limits. Bony thorax no acute abnormality. Right PICC line a central line in the SVC. Impression: Right pneumonia with effusion. No pneumothorax identified. Reviewed, dictated and finalized at location P. Impression: Right pneumonia with effusion. No pneumothorax identified.
--- NOTE | ~2024-11-03 | CT_ITS ---
EXAMINATION: CT abdomen pelvis wo con DATE: 11/03/2024 12:14 INDICATION: Diverticulitis. Left lower quadrant abdominal pain. TECHNIQUE: Computed tomography (CT) of the abdomen and pelvis was performed with 100 mL Omnipaque-350 intravenous contrast. Automated exposure control and iterative reconstruction technique were employed. The dose-length product was 413.15 mGy-cm. COMPARISON: 11/01/2024 FINDINGS: Mild dependent atelectasis in the bilateral lower lobes. Heart size is normal. Atherosclerotic coronary artery calcifications. No pericardial or pleural effusion. Dependently layering vicariously excreted contrast in the otherwise normal gallbladder. Liver, spleen, pancreas, bilateral adrenal glands and right kidney are normal. 4.4 cm left renal cyst. Moderate scattered diverticulosis with sigmoid and descending colon predominance. Significant interval progression of diffuse wall thickening throughout the colon with adjacent inflammatory stranding consistent with colitis. No pneumatosis, abscess or free intraperitoneal gas. Minimal amount of likely reactive ascites in the deep pelvis. Small bowel and appendix are normal. There are some residual excreted contrast in the normal bladder. The uterus is not identified and has likely been surgically resected. No pathologically enlarged abdominal or pelvic lymphadenopathy. Lumbar levoscoliosis with severe spondylosis. IMPRESSION: 1. Interval progression of radiographically uncomplicated selby colitis which could be infectious, inflammatory or less likely ischemic in etiology. Reviewed, dictated and finalized at location A. IMPRESSION: 1. Interval progression of radiographically uncomplicated selby colitis which cou ld be infectious, inflammatory or less likely ischemic in etiology.
--- NOTE | ~2024-11-03 | CT_ITS ---
EXAMINATION: CT brain wo reshma, 11/06/2024 12:35 CDT HISTORY: headache r/o ICH COMPARISON: No comparisons available. Technique: Axial images obtained of the brain without contrast. One or more of the following dose reduction techniques were used: automated exposure control, adjustment of the mA and/or kV according to patient size, use of iterative reconstruction technique. Findings: No acute infarct or parenchymal hemorrhage. No abnormal mass or mass effect. No midline shift. No extra-axial fluid collections. No hydrocephalus. Mastoid air cells unremarkable. Sinuses and orbits unremarkable. No acute fracture. No significant facial or scalp soft tissue swelling evident. No radiopaque foreign body is seen. Impression: 1.No acute intracranial abnormality. Reviewed, dictated and finalized at location A. Impression: 1.No acute intracranial abnormality.
--- NOTE | ~2024-11-03 | CT_ITS ---
EXAMINATION: CT diagnostic chest wo con DATE: 11/20/2024 14:35 INDICATION: dyspnea TECHNIQUE: Computed tomography (CT) of the chest was performed without intravenous contrast. Additional 3D reconstructions utilizing coronal maximum intensity projection (MIP) were performed. Automated exposure control and iterative reconstruction technique were employed. The dose-length product was 24 0.63 mGy-cm. COMPARISON: 11/05/2024 FINDINGS: Interval increase in size of moderate-sized bilateral posterior layering pleural effusions. There is complete collapse of the bilateral lower lobes. Additional mild dependent atelectasis in the bilateral upper lobes and compressive atelectasis along the basilar right middle lobe. Finally there is a horizontal band of discoid atelectasis at the lingula. No pulmonary edema or pneumonia in the aerated portions the lungs. Borderline heart size. A chronic coronary artery calcifications. No pericardial effusion. Thoracic aorta is normal in caliber. Unchanged mildly enlarged prevascular lymph node in the anterior mediastinum measuring up to 1.3 cm in maximal short axis diameter. No other pathologically enlarged thoracic lymphadenopathy. Perihepatic and perisplenic ascites in the visualized upper abdomen. Layering air-fluid level in the hepatic flexure the colon. Mild thoracic dextrocurvature with mild spondylosis and with bridging osteophytes at multiple levels consistent with diffuse idiopathic skeletal hyperostosis (DISH). Large-bore right internal jugular central venous catheter with distal tip at the caudal superior vena cava. There is also a right upper extremity peripherally inserted central venous catheter (PICC) tip also at the caudal superior vena cava. IMPRESSION: 1. Increase in size of moderate sized bilateral posterior layering pleural effusions with secondary dependent atelectasis including complete collapse of the bilateral lower lobes. 2. Moderate amount of ascites in the visualized upper abdomen. 3. Mildly enlarged prevascular lymph node and the anterior mediastinum which is most likely reactive. Reviewed, dictated and finalized at location A. IMPRESSION: 1. Increase in size of moderate sized bilateral posterior layering pleural effu sions with secondary dependent atelectasis including complete collapse of the b ilateral lower lobes. 2. Moderate amount of ascites in the visualized upper abdomen. 3. Mildly enlarged prevascular lymph node and the anterior mediastinum which is most likely reactive.
--- NOTE | ~2024-11-03 | CT_ITS ---
CT ABDOMEN AND PELVIS WITHOUT CONTRAST Clinical History: rule out perforation, wbc 28k, worsening pain Comparison: CT one day prior Technique: Unenhanced axial images lung bases to symphysis pubis Coronal, sagittal reformats CT images acquired with automatic exposure control for dose reduction DLP: 790 mGy-cm Findings: Without intravenous contrast, sensitivity for detecting visceral parenchymal abnormalities decreased. Lung bases: Small pleural effusions, associated dependent atelectasis. Visualized heart and pericardium: Coronary artery calcifications. Liver: Cirrhosis. Enlarged. Gallbladder: Unremarkable. Spleen: Unremarkable. Pancreas: Atrophic. Adrenal glands: Unremarkable. Kidneys: Right kidney- No hydronephrosis. No renal stones. Left kidney- No hydronephrosis. No renal stones. Cortical cyst. Distal esophagus/stomach: Unremarkable. Small bowel loops: Normal caliber and wall thickness. Colon: Persistent diffuse severe wall thickening. Appendix not seen. No pneumatosis. A few small scattered diverticula. Nodes: No enlarged nodes. Peritoneum: Developing small ascites. No free intraperitoneal air. Urinary bladder: Holland catheter. Uterus: Removed. Adnexa: No masses. Worsening presacral edema. Bones: No acute bony abnormality. Soft tissues: Unremarkable. Unopacified abdominal aorta: No aneurysmal dilatation. Atherosclerotic disease. IMPRESSION: 1. No evidence of bowel perforation. 2. Persistent severe pancolitis. 3. New small scattered ascites. 4. New small pleural effusions and significant bibasilar atelectasis. Reviewed, dictated and finalized at location R.
--- NOTE | ~2024-11-03 | XR_ITS ---
EXAMINATION: XR chest 1V portable 11/17/2024 13:29 INDICATION: Shortness of breath TECHNIQUE:A single portable AP upright frontal image of the chest was obtained COMPARISON: 11/16/2024 FINDINGS: The patient is leaning to the left which limits evaluation. There is a double-lumen right-sided central venous catheter with its tips projecting over the right atrium similar to the prior study. Lung volumes are low. Grossly stable right-sided PICC line. No pneumothorax. Grossly stable pleural and parenchymal opacities in the lower halves of the bilateral hemithoraces which likely represents a combination of pleural fluid with adjacent atelectasis/consolidation and/or airspace disease. Stable interstitial opacities in both lungs. IMPRESSION: 1: Grossly stable pleural and parenchymal opacities in the lower halves of the bilateral hemithoraces which likely represents a combination of pleural fluid with adjacent atelectasis/consolidation and/or airspace disease. The findings are similar to the study from 11/16/2024. Recommend follow-up to resolution. Reviewed, dictated and finalized at location Q. IMPRESSION: 1: Grossly stable pleural and parenchymal opacities in the lower halves of the bilateral hemithoraces which likely represents a combination of pleural fluid with adjacent atelectasis/consolidation and/or airspace disease. The findings a re similar to the study from 11/16/2024. Recommend follow-up to resolution.
--- NOTE | ~2024-11-03 | XR_ITS ---
Examination: XR chest 1V portable Clinical History: SOB Comparison: 11/11/2024 Technique: Portable AP Findings: Right neck dialysis catheter, right PICC. Heart size unchanged, mostly obscured, but probable cardiomegaly. Elevated right hemidiaphragm with associated basilar atelectasis. Pleural effusions and bibasilar opacities persist. Mildly increased interstitial markings. No acute bony abnormality. IMPRESSION: 1. Mild interstitial pulmonary edema. 2. Persistent pleural effusions with bibasilar atelectasis and/or airspace disease. Reviewed, dictated and finalized at location R. IMPRESSION: 1. Mild interstitial pulmonary edema. 2. Persistent pleural effusions with bibasilar atelectasis and/or airspace dis ease.
--- NOTE | ~2024-11-03 | CT_ITS ---
EXAMINATION: CT chest abdomen pelvis wo con, 11/05/2024 16:20 CDT HISTORY: SBO COMPARISON: No comparisons available. TECHNIQUE: CT scan of the chest, abdomen and pelvis was performed without contrast One or more of the following dose reduction techniques were used: automated exposure control, adjustment of the mA and/or kV according to patient size, use of iterative reconstruction technique. Unless otherwise stated, incidental findings do not require dedicated follow up imaging FINDINGS: CT chest: No significant coronary calcification is present ([id number]) LUNGS: No tracheomalacia. No bronchiectasis. Moderate to large simple appearing bilateral pleural effusions with small basilar infiltrates. Minimal emphysematous changes. HEART AND PERICARDIUM: Mild cardiomegaly. No pericardial effusion. AORTA: Atherosclerotic changes of the aorta. MEDIASTINUM: Unremarkable. THYROID: The thyroid is unremarkable. CT abdomen: LIVER: Mild cirrhotic disease of the liver suspected. SPLEEN: Mild atrophy of the spleen.. KIDNEYS: Right Kidney: Right kidney mild hydronephrosis, no hydroureter. Left Kidney: Left kidney large simple appearing peripelvic renal cyst 5 x 6 cm. ADRENAL GLANDS: Unremarkable. PANCREAS: Moderate atrophy of the pancreas. Cystic pancreatic lesion of the body 1.5 x 1.6 cm incompletely evaluated, contrast-enhanced MRI recommended. GALLBLADDER/BILIARY: Mild distention of the gallbladder. STOMACH AND ESOPHAGUS: The stomach is decompressed. BOWEL/MESENTERY: Multiple fluid-filled loops of large bowel which appears thickened, absence of contrast limits evaluation. There is pericolonic stranding noted but no gross perforation or abscess, no pneumatosis. Appendix appears minimally thickened but there is no periappendiceal inflammation. Stranding throughout the visualized remaining mesentery. Nonspecific fluid-filled loops of small bowel, no dilated small bowel loops. RETROPERITONEUM: Unremarkable AORTA/VASCULATURE: Normal caliber aorta. FREE FLUID OR FREE AIR: Large amount of free fluid throughout the abdomen and pelvis. Small amount of free fluid in the presacral space.. CT pelvis: SOLID ORGANS/REPRODUCTIVE: Unremarkable. BLADDER: Bladder decompressed. LYMPHADENOPATHY: No lymphadenopathy. OSSEOUS STRUCTURES: No acute osseous abnormality.No suspicious lesions. OVERLYING SOFT TISSUES: [place] catheter in the bladder. IMPRESSION: 1. Diffuse colitis detailed above, correlate for underlying pseudomembranous colitis. No perforation or abscess. Follow-up recommended to assess. 2. CHF with superimposed probable bronchopneumonia. 3. Incidental findings above. Contrast-enhanced MRI recommended Reviewed, dictated and finalized at location A. IMPRESSION: 1. Diffuse colitis detailed above, correlate for underlying pseudomembranous co litis. No perforation or abscess. Follow-up recommended to assess. 2. CHF with superimposed probable bronchopneumonia. 3. Incidental findings above. Contrast-enhanced MRI recommended
--- NOTE | ~2024-11-03 | XR_ITS ---
Examination: XR chest 1V portable Clinical History: SOB Comparison: 1 day prior Technique: Portable AP Findings: Right neck dialysis catheter, right PICC. Heart size unchanged. Near complete left lower lobe atelectasis with associated effusion. Elevated right hemidiaphragm with associated atelectasis. Right pleural effusion. Minimal interstitial markings. No acute bony abnormality. IMPRESSION: 1. Persistent complete left lower lobe atelectasis, superimposed airspace disease not excluded. 2. Persistent pleural effusions. 3. Mild, if any, interstitial pulmonary edema. Reviewed, dictated and finalized at location R. IMPRESSION: 1. Persistent complete left lower lobe atelectasis, superimposed airspace dise ase not excluded. 2. Persistent pleural effusions. 3. Mild, if any, interstitial pulmonary edema.
--- NOTE | ~2024-11-03 | XR_ITS ---
Examination: XR chest 1V portable Clinical History: CHF + pneumonia + hypoxia Comparison: 1 day prior Technique: Portable AP Findings: Right neck dialysis catheter, right PICC. Heart size unchanged. Elevated right hemidiaphragm, associated basilar atelectasis. Pleural effusions with bibasilar opacities. No acute bony abnormality. IMPRESSION: 1. No significant change. 2. Pleural effusions with bibasilar atelectasis and/or airspace disease. 3. No pneumothorax. Reviewed, dictated and finalized at location R.
--- NOTE | ~2024-11-03 | US_ITS ---
EXAMINATION: US thoracentesis DATE: 11/21/2024 15:11 INDICATION: Bilateral pleural effusions TECHNIQUE: The procedure and its risks and benefits were discussed with the patient. Potential risks discussed included bleeding, infection, and pneumothorax. The patient understood the risks and agreed to proceed. The skin overlying the posterior left hemithorax was prepped and draped in sterile fashi on. 1% lidocaine was used for local anesthesia. Under ultrasound guidance, a 5 Fr catheter with trochar was advanced into the moderate-sized left pleural effusion. Fluid was aspirated. The catheter was removed, and a dressing was applied. There were no immediate complications. FINDINGS: Ultrasound images demonstrate a moderate-sized left pleural effusion and the catheter within the fluid. IMPRESSION: 1. Successful ultrasound-guided thoracentesis yielding 500 mL of yellowish fluid. Reviewed, dictated and finalized at location A. IMPRESSION: 1. Successful ultrasound-guided thoracentesis yielding 500 mL of yellowish flu id.
--- NOTE | ~2024-11-03 | US_ITS ---
EXAMINATION: US thoracentesis DATE: 11/08/2024 11:31 INDICATION: Bilateral pleural effusions TECHNIQUE: The procedure and its risks and benefits were discussed with the patient. Potential risks discussed included bleeding, infection, and pneumothorax. The patient understood the risks and agreed to proceed. The skin was prepped and draped in sterile fashion. 1% lidocaine was used for local anes thesia. Under ultrasound guidance, a 5 Fr catheter with trochar was advanced into the left pleural effusion. Fluid was aspirated. The catheter was removed, and a dressing was applied. There were no immediate complications. FINDINGS: Ultrasound images demonstrate small bilateral pleural effusions, larger on the left. Subsequent images demonstrate the catheter within the left pleural effusion. Incidentally noted is ascites underlying left hemidiaphragm. IMPRESSION: 1. Successful ultrasound-guided thoracentesis yielding 250 mL of yellow fluid. Reviewed, dictated and finalized at location A.
--- NOTE | ~2024-11-03 | XR_ITS ---
Examination: XR chest 1V portable Clinical History: SOB Comparison: 2 days prior Technique: Portable AP Findings: Right PICC. Unchanged cardiomegaly. Persistent large right pleural effusion with basilar atelectasis and/or airspace disease. Developing interstitial markings left lung with basilar atelectasis. No acute bony abnormality. IMPRESSION: 1. Persistent large right pleural effusion with associated basilar atelectasis and/or airspace disease. 2. Left lung developing interstitial pulmonary edema and/or pneumonitis. Reviewed, dictated and finalized at location R.
--- NOTE | ~2024-11-03 | XR_ITS ---
Examination: XR chest 1V portable Clinical History: SOB Comparison: 1 day prior Technique: Portable AP Findings: Right neck dialysis catheter, right PICC. Heart size normal. Persistent significant left lower lobe atelectasis with associated effusion. Persistent elevated right hemidiaphragm with associated atelectasis and persistent effusion. Persistent increased interstitial markings. No acute bony abnormality. IMPRESSION: 1. No change. Reviewed, dictated and finalized at location R. IMPRESSION: 1. No change.
--- NOTE | ~2024-11-03 | XR_ITS ---
EXAMINATION: XR chest 1V portable DATE: 11/06/2024 11:34 INDICATION: Respiratory failure TECHNIQUE: frontal view of the chest was obtained. COMPARISON: Chest radiograph dated 11/04/[address] dated 11/05/2024 FINDINGS: Lung volumes are small, unchanged on the left and with interval progression of volume loss on the right. Airspace opacity at the bilateral lower lung zones with blunting at the costophrenic angles consistent with small bilateral pleural effusions and associated atelectasis and/or pneumonia. No pneumothorax or evident pulmonary edema. Heart size is normal. There is ostial fold thickening along the visualized ascending and transverse colon suggestive of colitis. IMPRESSION: 1. Decreased lung volumes with small bilateral pleural effusions and associated bibasilar atelectasis and/or pneumonia. 2. Haustral fold thickening along the visualized colon suspicious for colitis. Reviewed, dictated and finalized at location A.
--- OUTSIDE RECORDS SUMMARY | 2024-11-03 09:44 | XMS_ITS | Encounter Summary ---
Author Organization [facility] Address [address], [place] [address] Phone Care Team Providers Care Plc Technician Name Role Phone Unavailable Primary Care Provider Unavailabl e Encounter Details Date Type Department Care Team (Late st Contact Info) Description 03/21/2019 Office Visit [facility] [address] [place] [address] ProviderBrenden MD [address] [place] [address] Social History Tobacco Use Types Packs/Day [...]
--- OUTSIDE RECORDS SUMMARY | 2024-11-03 09:44 | XMS_ITS | Clinical Summary ---
Author Organization [facility] [address] Address [address] [place] [address] Care Team Providers Care Premium Card Cancellation Clerk Name Role Phone Yaniv Elmore MD Primary Care Provider [phone] Allergies Active Allergy Reactions Criticality Noted Date [...] Encounters Date Type Department Care Team Description 11/02/2024 Results Follow-Up [facility] Care at [address] [phone] Avelina Pinto NP Urine culture Urine, clean voided 11/01/2024 9:06 AM CDT - 11/01/2024 11:59 PM CDT Hospital Encounter [facility] [address] [place] [address] Acute left lower quadrant pain Discharge Disposition: Discharge to home or self care 11/01/2024 9:00 AM CDT Office Visit [facility] Convenient Care at [address] [phone] Avelina Pinto NP Acute left lower quadrant pain (Primary Dx) 10/03/2024 10:15 AM CDT Office Visit [facility] Cardiology at [address] [place] [address] Cale Romano MD Primary hypertension (Primary Dx) [...] AM CDT Acute left lower quadrant pain POCT URINALYSIS DIPSTICK Routine 11/01/2024 9:58 AM CDT Acute left lower quadrant pain from Last 3 Months Results * Urine culture Urine, clean voided (11/01/2024 10:30 AM CDT) Report Final Report: Less than 100,000 colonies/mL (clinically insignificant growth based on current clinical standards) Comment:Testing performed by : [facility], [address], [place]., [address] Organism (CLINICALLY INSIGNIFICANT GROWTH RAMSEY Urine, clean voided 11/01/2024 10:30 AM CDT 11/01/2024 4:21 PM CDT Narrative [facility] - 11/02/2024 5:20 PM CDT Testing performed by [facility] Microbiology Laboratory ([phone]) us Avelina Pinto NP LAB MICROBIOLOGY - GENERAL ORDERABLES Final Result [facility] [address] [address] [place] [address] * (ABNORMAL) POCT urinalysis dipstick (11/01/2024 9:58 AM CDT) Color, Urine, POC Yellow Clarity, ur, POC Clear Clear Glucose, ur, POC Negative Negative Bilirubin, ur, POC Negative Negative Ketones, ur, POC Negative Negative Specific [place], POC 1.020 1.003 - 1.030 Blood, ur, POC Negative Negative pH, ur, POC 5.5 5.0 - 8.0 Protein, ur, POC 30.(A) Negative Urobilinogen, urine, POC 0.2 0.2 - 1.0 mg/dL Nitrite, ur, POC Negative Negative Leukocytes, ur, POC Negative Negative Lot Number [id number] Urine 11/01/2024 9:58 AM CDT Avelina Pinto NP POINT OF CARE TEST ORDERAB LES Final Result from Last 3 Months Insurance MEDICARE [facility] AARP MEDICARE MEDICARE AARP AARP Care Teams Premium Card Cancellation Clerk Relationship Specialty Start Date End Date Yaniv Elmore MD [address] [place], [place] [id number] PCP - General Family Practice 03/28/24
--- OUTSIDE RECORDS SUMMARY | 2024-11-03 09:44 | XMS_ITS | Clinical Summary ---
Author Organization [facility] Address [address], [place] [address] Phone Care Team Providers Care Nursing Unit Clerk Name Role Phone Unavailable Primary Care Provider [...]
--- OUTSIDE RECORDS SUMMARY | 2024-11-03 09:44 | XMS_ITS | Encounter Summary ---
Author Organization [facility] Healthcare Address [address] [place] [address] Care Team Providers Care Animal Impersonator Name Role Phone Baljinder Swartz NP Primary Care Provider [phone] Jaswant Chan Unavailable [phone] Yaniv Elmore MD Primary Care Provider [phone] Encounter Details Date Type Department Care Team (Late st Contact Info) Description 11/01/2023 Orders Only [facility] Health Information Management [address] [place] [address] Scanning, Provider Social History Tobacco Use [...] on filedocumented in this encounter Care Teams Animal Impersonator Relationship Specialty Start Date End Date Baljinder Swartz NP [address] [place] [address] PCP - General Nurse Practitioner 09/23/23 03/27/24 Yaniv Elmore MD [address] [place] [address] PCP - General Family Practice 03/28/24 Jaswant Chan PA [address] [place] [address] Physician Nursing Assistant 09/23/23 03/27/24 documented as of this encounter
--- OUTSIDE RECORDS SUMMARY | 2024-11-03 09:44 | XMS_ITS | Encounter Summary ---
Author Organization [facility] Healthcare Address [address] [place] [address] Care Team Providers Care Office Equipment Mechanic Name Role Phone Yaniv Elmore MD Primary Care Provider [phone] Encounter Details Date Type Department Care Team (Late st Contact Info) Description 11/02/2024 Results Follow-Up [facility] Convenient Care at [address] [phone] Avelina Pinto NP [address] [place] [address] [address] [place] [address] Urine culture Urine, clean voided Social History Tobacco Use Types Packs/Day Years [...] on filedocumented in this encounter Care Teams Office Equipment Mechanic Relationship Specialty Start Date End Date Yaniv Elmore MD [address] [place] [address] PCP - General Family Practice 03/28/24 documented as of this encounter
--- NOTE | 2024-11-03 10:14 | ED.ABDPAIN ---
HPI - Abdominal Pain General Chief Complaint: Abdominal Pain <Alexi Roe APRN - Last Filed: 11/03/24 14:30> Stated Complaint: abdominal pain <Alexi Roe APRN - Last Filed: 11/03/24 14:30> Time Seen by Provider: 11/03/24 10:14 <Alexi Roe APRN - Last Filed: 11/03/24 14:30> Source: patient <Alexi Roe APRN - Last Filed: 11/03/24 14:30> Mode of arrival: ambulatory <Alexi Roe APRN - Last Filed: 11/03/24 14:30> Limitations: no limitations <Alexi Roe APRN - Last Filed: 11/03/24 14:30> History of Present Illness HPI narrative: Berenice is a 78-year-old female patient presenting to the ER today with complaints of left lower quadrant abdominal pain and diarrhea. She reports symptoms started on Wednesday. She was seen in the ER 2 days ago and diagnosed with diverticulitis without abscess. States her pain is worsening. Rates the pain 8/ 10 currently. Has been taking Zofran and the Augmentin that was prescribed. Denies any fevers, chills, body aches. Has had some nausea without vomiting. <Alexi Roe APRN - Last Filed: 11/03/24 14:30> Related Data Home Medications: Home Medications ?Medication ?Instructions ?Recorded ?Confirmed ?Last Taken ?Type terbinafine HCl 250 mg tablet 250 mg PO DAILY 09/03/23 11/03/24 Unknown History <Alexi Roe APRN - Last Filed: 11/03/24 14:30> Allergies/Adverse Reactions: Allergies Allergy/AdvReac Type Severity Reaction Status Date / Time morphine Allergy Itching Verified 11/01/24 11:35 <Alexi Roe APRN - Last Filed: 11/03/24 14:30> Review of Systems Review of Systems: Pertinent positives per HPI. Patient denies any fever, chills, rash, headache, visual changes, dizziness, cough, runny nose, sore throat, shortness of breath, chest pain, palpitations, vomiting, constipation, or any urinary issues. <Alexi Roe APRN - Last Filed: 11/03/24 14:30> [facility] Past Medical History Medical History: Medical History (Updated 11/03/24 @ 13:15 by Patsy Ramirez APRN) Anxiety Hyperlipidemia BMI 25.0-25.9,adult Hypertension <Alexi Roe APRN - Last Filed: 11/03/24 14:30> Family History Family History: Family History Father Hypertension Cerebrovascular accident Mother Heart disease Sibling Diabetes mellitus Sibling Diabetes mellitus <Alexi Roe APRN - Last Filed: 11/03/24 14:30> Social History Social History: Social History Smoking status: Never smoker Second hand tobacco smoke exposure: No Alcohol intake: current Substance use: never Substance use type: does not use Lack of Transportation: No Lack of Food: Never True Current Housing: I Have Housing Concerned About Future Housing: No Difficulty Paying Gas/Electric Bills: No Difficulty Paying for Meds: No Currently Unemployed: No Education: High School Diploma/GED Difficulty w/ Childcare or Family Care: No Living arrangements: with family 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 There is no relevant family history pertinent to the patient complaint. <Alexi Roe APRN - Last Filed: 11/03/24 14:30> Exam Narrative: General: Well-developed, well nourished, in no apparent distress. Head: Normocephalic, atraumatic. Cardio: Regular rate and rhythm, s1 and s2 normal, no murmur appreciated. Resp: Clear to auscultation bilaterally, no rhonchi, rales, wheezing or rubs. Abdomen: Soft, pliable, bowel sounds present in all quadrants, generalized abdomen tender to palpation with most severe over the left lower quadrant, no organomegly, no CVAT tenderness. <Alexi Roe APRN - Last Filed: 11/03/24 14:30> Course Course Emergency Course: Portions of this record may have been created with voice recognition software. <Alexi Roe APRN - Last Filed: 11/03/24 14:30> VP [employer]ING [employer]IA/PA Physician Supervision This visit was performed by both a physician and an APC. I performed all aspects of the MDM as documented. <Mukesh Horn MD - Last Filed: 11/03/24 18:23> Vital Signs Vital signs: Vital Signs Temperature 98.7 F 11/03/24 10:41 Pulse Rate 87 11/03/24 10:41 Respiratory Rate 26 H 11/03/24 10:41 Blood Pressure 128/49 L 11/03/24 10:41 Pulse Oximetry 97 11/03/24 10:41 Oxygen Delivery Room Air 11/03/24 10:41 Temperature 98.8 F 11/03/24 15:01 Pulse Rate 80 11/03/24 15:01 Respiratory Rate 18 11/03/24 15:01 Blood Pressure 114/51 L 11/03/24 15:01 Pulse Oximetry 96 11/03/24 15:01 Oxygen Delivery Room Air 11/03/24 10:41 Vital signs reviewed <Alexi Roe APRN - Last Filed: 11/03/24 14:30> Vital Signs Temperature 98.7 F 11/03/24 10:41 Pulse Rate 87 11/03/24 10:41 Respiratory Rate 26 H 11/03/24 10:41 Blood Pressure 128/49 L 11/03/24 10:41 Pulse Oximetry 97 11/03/24 10:41 Oxygen Delivery Room Air 11/03/24 10:41 Temperature 98.8 F 11/03/24 15:01 Pulse Rate 80 11/03/24 15:01 Respiratory Rate 18 11/03/24 15:01 Blood Pressure 114/51 L 11/03/24 15:01 Pulse Oximetry 96 11/03/24 15:01 Oxygen Delivery Room Air 11/03/24 10:41 <Mukesh Horn MD - Last Filed: 11/03/24 18:23> MDM - Abdominal Pain MDM Narrative Medical decision making narrative: At the time of visit patient is resting comfortably on the exam table. Patient appears to be nontoxic. Complaints of left lower quadrant abdominal pain and diarrhea. She reports symptoms started on Wednesday. She was seen in the ER 2 days ago and diagnosed with diverticulitis without abscess. States her pain is worsening. Rates the pain 8/ 10 currently. Has been taking Zofran and the Augmentin that was prescribed. Denies any fevers, chills, body aches. Has had some nausea without vomiting. On exam soft, pliable, bowel sounds present in all quadrants, generalized abdomen tender to palpation with most severe over the left lower quadrant, no organomegly, no CVAT tenderness. Labs, urine, and CT abdomen was ordered. IV fluids, morphine, Zofran, and Zosyn was ordered Labs: White blood cell count 21.8, H&H is 13.4 and 30.6 platelet counts 364 has 20 any absolute neutrophils with 20 % bands, sodium levels 123, potassium is 4.6, chlorides 91, carbon dioxide 17, BUN 31 creatinine is 3.03, GFR is 15, glucose 241, calcium 7.9 liver function test within normal limits, lipase less than 10 Diagnostics: Interval progression of radiographically uncomplicated selby colitis which could be infectious, inflammatory or less likely ischemic in etiology. Plan: Patient has colitis with acute kidney injury. She was seen 2 days ago and diagnosed with diverticulitis and given Augmentin. States her symptoms are worsening and she is now having diarrhea. Recommend admission to the hospital. Patient agrees to admission. Contacted [facility]-hospitalist and she accepts patient for transfer <Alexi Roe APRN - Last Filed: 11/03/24 14:30> At the time of visit patient is resting comfortably on the exam table. Patient appears to be nontoxic. Complaints of left lower quadrant abdominal pain and diarrhea. She reports symptoms started on Wednesday. She was seen in the ER 2 days ago and diagnosed with diverticulitis without abscess. States her pain is worsening. Rates the pain 8/ 10 currently. Has been taking Zofran and the Augmentin that was prescribed. Denies any fevers, chills, body aches. Has had some nausea without vomiting. On exam soft, pliable, bowel sounds present in all quadrants, generalized abdomen tender to palpation with most severe over the left lower quadrant, no organomegly, no CVAT tenderness. Labs, urine, and CT abdomen was ordered. IV fluids, morphine, Zofran, and Zosyn was ordered Labs: White blood cell count 21.8, H&H is 13.4 and 30.6 platelet counts 364 has 20 any absolute neutrophils with 20 % bands, sodium levels 123, potassium is 4.6, chlorides 91, carbon dioxide 17, BUN 31 creatinine is 3.03, GFR is 15, glucose 241, calcium 7.9 liver function test within normal limits, lipase less than 10 Diagnostics: Interval progression of radiographically uncomplicated selby colitis which could be infectious, inflammatory or less likely ischemic in etiology. Plan: Patient has colitis with acute kidney injury. She was seen 2 days ago and diagnosed with diverticulitis and given Augmentin. States her symptoms are worsening and she is now having diarrhea. Recommend admission to the hospital. Patient agrees to admission. Contacted Patsy-hospitalist and she accepts patient for transfer -- This visit was performed by both a physician and an APC. I performed all aspects of the MDM as documented. <Mukesh Horn MD - Last Filed: 11/03/24 18:23> Differential Diagnosis Differential diagnosis: Likely abdominal pain, acute appendicitis, constipation, diverticulitis, gastroenteritis, pancreatitis and small bowel obstruction <Alexi Roe APRN - Last Filed: 11/03/24 14:30> Lab Data Result diagrams: 11/03/24 11:19 11/03/24 11:19 <Alexi Roe APRN - Last Filed: 11/03/24 14:30> Labs: Lab Results 11/03/24 Range/Units 11:19 WBC 21.8 H (4.5-10.0) K/mm3 RBC 4.27 (4.2-5.4) M/mm3 Hgb 13.4 (12.0-15.0) g/dL Hct 38.6 (37.0-47.0) % MCV 90.4 (80-100) fl MCH 31.4 (26-34) pg MCHC 34.7 (32-36) g/dl RDW 12.7 (11.5-14.5) % Plt Count 364 (150-375) k/mm3 MPV 8.9 (7.4-10.4) fl Immature Gran % (Auto) Not Reportable Neut % (Auto) Not Reportable Lymph % (Auto) Not Reportable [place] % (Auto) Not Reportable Eos % (Auto) Not Reportable Baso % (Auto) Not Reportable Lymph # (Auto) Not Reportable [place] # (Auto) Not Reportable Eos # (Auto) Not Reportable Baso # (Auto) Not Reportable Abs Immat Gran (auto) Not Reportable Absolute Neuts (auto) Not Reportable Absolute Nucleated RBC Not Reportable Total Counted 100 Neutrophils % (Manual) 72 (46-73) % Band Neutrophils % 20 H (0-6) % Lymphocytes % (Manual) 4 L (18-44) % Monocytes % (Manual) 4 (3-9) % Nucleated RBC % Not Reportable Abs Neuts (Manual) 20.05 H (1.3-6.7) K/mm3 Abs Lymphs (Manual) 0.87 L (1.1-4.5) K/mm3 Abs Monocytes (Manual) 0.87 (0.1-0.90) K/mm3 Platelet Estimate Adequate (Adequate) Schistocytes None seen Sodium 123 L (137-145) mmol/L Potassium 4.6 (3.4-5.0) mmol/L Chloride 91 L (98-107) mmol/L Carbon Dioxide 17 L (22-30) mmol/L Anion Gap 15 H (4-12) mmol/L BUN 31 H D (7-17) mg/dL Creatinine 3.03 H (0.7-1.0) mg/dL Estim Creat Clear Calc 13 ml/min Estimated GFR 15 L (59 - ) Glucose 241 H (65-110) mg/dL Calcium 7.9 L (8.4-10.2) mg/dL Total Bilirubin 0.6 (0.2-1.3) mg/dL AST 29 (14-36) U/L ALT 27 (6-35) U/L Alkaline Phosphatase 65 (38-126) U/L Total Protein 6.4 (6.3-8.2) g/dL Albumin 3.5 (3.5-5.1) g/dL Lipase < 10 L (23-300) U/L <Alexi Roe APRN - Last Filed: 11/03/24 14:30> Lab Results 09/19/25 Range/Units 11:19 WBC 21.8 H (4.5-10.0) K/mm3 RBC 4.27 (4.2-5.4) M/mm3 Hgb 13.4 (12.0-15.0) g/dL Hct 38.6 (37.0-47.0) % MCV 90.4 (80-100) fl MCH 31.4 (26-34) pg MCHC 34.7 (32-36) g/dl RDW 12.7 (11.5-14.5) % Plt Count 364 (150-375) k/mm3 MPV 8.9 (7.4-10.4) fl Immature Gran % (Auto) Not Reportable Neut % (Auto) Not Reportable Lymph % (Auto) Not Reportable [place] % (Auto) Not Reportable Eos % (Auto) Not Reportable Baso % (Auto) Not Reportable Lymph # (Auto) Not Reportable [place] # (Auto) Not Reportable Eos # (Auto) Not Reportable Baso # (Auto) Not Reportable Abs Immat Gran (auto) Not Reportable Absolute Neuts (auto) Not Reportable Absolute Nucleated RBC Not Reportable Total Counted 100 Neutrophils % (Manual) 72 (46-73) % Band Neutrophils % 20 H (0-6) % Lymphocytes % (Manual) 4 L (18-44) % Monocytes % (Manual) 4 (3-9) % Nucleated RBC % Not Reportable Abs Neuts (Manual) 20.05 H (1.3-6.7) K/mm3 Abs Lymphs (Manual) 0.87 L (1.1-4.5) K/mm3 Abs Monocytes (Manual) 0.87 (0.1-0.90) K/mm3 Platelet Estimate Adequate (Adequate) Schistocytes None seen Sodium 123 L (137-145) mmol/L Potassium 4.6 (3.4-5.0) mmol/L Chloride 91 L (98-107) mmol/L Carbon Dioxide 17 L (22-30) mmol/L Anion Gap 15 H (4-12) mmol/L BUN 31 H D (7-17) mg/dL Creatinine 3.03 H (0.7-1.0) mg/dL Estim Creat Clear Calc 13 ml/min Estimated GFR 15 L (59 - ) Glucose 241 H (65-110) mg/dL Calcium 7.9 L (8.4-10.2) mg/dL Total Bilirubin 0.6 (0.2-1.3) mg/dL AST 29 (14-36) U/L ALT 27 (6-35) U/L Alkaline Phosphatase 65 (38-126) U/L Total Protein 6.4 (6.3-8.2) g/dL Albumin 3.5 (3.5-5.1) g/dL Lipase < 10 L (23-300) U/L <Mukesh Horn MD - Last Filed: 11/03/24 18:23> Imaging Data Radiologist's impression: ITS Impressions Abdomen/Pelvis CT 11/03/24 12:27 IMPRESSION: 1. Interval progression of radiographically uncomplicated selby colitis which could be infectious, inflammatory or less likely ischemic in etiology. <Alexi Roe APRN - Last Filed: 11/03/24 14:30> ITS Impressions Abdomen/Pelvis CT 11/03/24 12:27 IMPRESSION: 1. Interval progression of radiographically uncomplicated selby colitis which could be infectious, inflammatory or less likely ischemic in etiology. <Mukesh Horn MD - Last Filed: 11/03/24 18:23> Discharge Plan Discharge Clinical Impression: Acute kidney injury, Colitis <Alexi Roe APRN - Last Filed: 11/03/24 14:30> Patient Disposition: Still a Patient <Alexi Roe APRN - Last Filed: 11/03/24 14:30> Condition: Stable <Alexi Roe APRN - Last Filed: 11/03/24 14:30> Time of Disposition: 13:12 <Alexi Roe APRN - Last Filed: 11/03/24 14:30> 13:12 <Mukesh Horn MD - Last Filed: 11/03/24 18:23> Quality NIHSS Nursing Documentation ED NIHSS nursing documentation: reviewed/agree <Alexi Roe APRN - Last Filed: 11/03/24 14:30>
--- OUTSIDE RECORDS SUMMARY | 2024-11-03 10:20 | XMS_ITS | Clinical Summary ---
Author Organization [facility] Address [address], [place] [address] Phone Care Team Providers Care Heel Coverer Name Role Phone Unavailable Primary Care Provider [...]
--- OUTSIDE RECORDS SUMMARY | 2024-11-03 10:20 | XMS_ITS | Encounter Summary ---
Author Organization [facility] Healthcare Address [address] [place] [address] Care Team Providers Care Paintings Conservator Name Role Phone Yaniv Elmore MD Primary Care Provider [phone] Encounter Details Date Type Department Care Team (Late st Contact Info) Description 11/02/2024 Results Follow-Up [facility] Convenient Care at [address] [phone] Avelina Pinto NP [address] [place] [address] [address] [place] [address] Urine culture Urine, clean voided [...] on filedocumented in this encounter Care Teams Paintings Conservator Relationship Specialty Start Date End Date Yaniv Elmore MD [address] [place] [address] PCP - General Family Practice 03/28/24 documented as of this encounter
--- OUTSIDE RECORDS SUMMARY | 2024-11-03 10:20 | XMS_ITS | Clinical Summary ---
Author Organization [facility] [address] Address [address] [place] [address] Care Team Providers Care Table Tender Sludge Name Role Phone Yaniv Elmore MD Primary Care Provider [phone] Allergies Active Allergy Reactions Criticality Noted Date [...] Department Care Team Description 11/02/2024 Results Follow-Up [facility] Medical [facility] Care at [address] [phone] Avelina Pinto NP Urine culture Urine, clean voided 11/01/2024 9:06 AM CDT - 11/01/2024 11:59 PM CDT Hospital Encounter [facility] [address] [place] [address] Acute left lower quadrant pain Discharge Disposition: Discharge to home or self care 11/01/2024 9:00 AM CDT Office Visit [facility] at [address] [phone] Avelina Pinto NP Acute left lower quadrant pain (Primary Dx) 10/03/2024 10:15 AM CDT Office Visit [facility] Medical [facility] Cardiology at [address] [place] [address] Cale Romano MD Primary hypertension (Primary Dx) [...] current clinical standards) Comment:Testing performed by : [facility], [address] [facility], [place]., [address] Organism (CLINICALLY INSIGNIFICANT GROWTH RAMSEY Urine, clean voided 11/01/2024 10:30 AM CDT 11/01/2024 4:21 PM CDT Narrative [facility] - 11/02/2024 5:20 PM CDT Testing performed by [facility] Microbiology Laboratory ([phone]) us Avelina Pinto NP LAB MICROBIOLOGY - GENERAL ORDERABLES Final Result [facility] [address] Department [place] [address] * (ABNORMAL) POCT urinalysis dipstick (11/01/2024 9:58 AM CDT) Color, Urine, POC Yellow Clarity, ur, POC Clear Clear Glucose, ur, POC Negative Negative Bilirubin, ur, POC Negative Negative Ketones, ur, POC Negative Negative Specific [place], POC 1.020 1.003 - 1.030 Blood, ur, POC Negative Negative pH, ur, POC 5.5 5.0 - 8.0 Protein, ur, POC 30.(A) Negative Urobilinogen, urine, POC 0.2 0.2 - 1.0 mg/dL Nitrite, ur, POC Negative Negative Leukocytes, ur, POC Negative Negative Lot Number [id number] Urine 11/01/2024 9:58 AM CDT Avelina Pinto NP POINT OF CARE TEST ORDERAB LES Final Result from Last 3 Months Insurance MEDICARE [facility] AARP MEDICARE MEDICARE AARP AARP Care Teams Table Tender Sludge Relationship Specialty Start Date End Date Yaniv Elmore MD [address] [place], [place] [id number] PCP - General Family Practice 03/28/24
--- OUTSIDE RECORDS SUMMARY | 2024-11-03 10:20 | XMS_ITS | Encounter Summary ---
Author Organization [facility] Healthcare Address [address] [place] [address] Care Team Providers Care Gasket Inspector Name Role Phone Baljinder Swartz NP Primary Care Provider + [phone] Jaswant Chan Unavailable [phone] Yaniv Elmore MD Primary Care Provider [phone] Encounter Details Date Type Department Care Team (Late st Contact Info) Description 11/01/2023 Orders Only [facility] [place] Information Management [address] [place] [id number] Scanning, Provider Social History Tobacco Use [...] on filedocumented in this encounter Care Teams Gasket Inspector Relationship Specialty Start Date End Date Baljinder Swartz NP [address] [place] [address] PCP - General Nurse Practitioner 09/23/23 03/27/24 Yaniv Elmore MD [address] [place] [address] PCP - General Family Practice 03/28/24 Jaswant Chan PA [address] [place] [address] Physician Mammal Keeper 09/23/23 03/27/24 documented as of this encounter
--- OUTSIDE RECORDS SUMMARY | 2024-11-03 10:20 | XMS_ITS | Encounter Summary ---
Author Organization [facility] Address [address], [place] [address] Phone Care Team Providers Care Ship Engines Operating Engineer Name Role Phone Unavailable Primary Care Provider Unavailabl e Encounter Details Date Type Department Care Team (Late st Contact Info) Description 03/21/2019 Office Visit [facility] [address] [place] [address] ProviderBrenden MD [address] [place] [address] Social History Tobacco Use Types Packs/Day [...]
[2024-11-03 11:24] LABS: Hematocrit 38.6 % (37.0-47.0); Hemoglobin 13.4 g/dL (12.0-15.0); Mean Corpuscular HGB Conc 34.7 g/dl (32-36); Mean Corpuscular Hemoglobin 31.4 pg (26-34); Mean Corpuscular Volume 90.4 fl (80-100); Platelet Count Result 364 k/mm3 (150-375); Red Blood Count 4.27 M/mm3 (4.2-5.4); White Blood Count 21.8 K/mm3 (4.5-10.0)
--- NOTE | 2024-11-03 11:25 | PC.NURSE ---
EDP reports no blood cultures needed.
[2024-11-03] MEDS: SODIUM CHLORIDE 0.9% IV 1,000 ML 999 ML IV CONT ×3 (11:38→22:28)
[2024-11-03] MEDS: PIPERACILLIN/TAZOBACTAM SOD 2.25 GM in SODIUM CHLORIDE 0.9% IV 50 ML 100 ML IVPB ×2 (11:38→20:25)
[2024-11-03 11:45] LABS: Alanine Aminotransferase 27 U/L (6-35); Albumin Level 3.5 g/dL (3.5-5.1); Alkaline Phosphatase 65 U/L (38-126); Anion Gap 15 mmol/L (4-12); Aspartate Amino Transferase 29 U/L (14-36); Band Neutrophils Percent 20 % (0-6); Bilirubin,Total 0.6 mg/dL (0.2-1.3); Blood Urea Nitrogen 31 mg/dL (7-17); Calcium 7.9 mg/dL (8.4-10.2); Carbon Dioxide 17 mmol/L (22-30); Chloride 91 mmol/L (98-107); Estimated CRCL calculation 13 ml/min; Estimated Glomerular Filt Rate 15; Glucose 241 mg/dL (65-110); Lymphocytes Absolute Manual 0.87 K/mm3 (1.1-4.5); Lymphocytes Percent Manual 4 % (18-44); Monocytes Absolute Manual 0.87 K/mm3 (0.1-0.90); Monocytes Percent Manual 4 % (3-9); Neutrophils Absolute Manual 20.05 K/mm3 (1.3-6.7); Neutrophils Percent Manual 72 % (46-73); Potassium 4.6 mmol/L (3.4-5.0); Sodium 123 mmol/L (137-145); Total Cells Counted 100; Total Protein 6.4 g/dL (6.3-8.2)
[2024-11-03 11:46] LABS: Schistocytes None Seen
[2024-11-03 12:38] LABS: Lipase < 10 U/L (23-300)
--- NOTE | 2024-11-03 13:06 | P.HP_ITS ---
H&P: HPI History of Present Illness Date/Time: 11/03/24 13:06 Chief Complaint: Abdominal pain Narrative: 78-year-old female with past medical history of hypertension presents the hospital with acute abdominal pain. Patient presented to the emergency room on 11/01/2021 and diagnosed with diverticulitis without abscess and sent home with p.o. antibiotics. She states that she has not improved. She states that her pain is worsen she is no longer able to tolerate oral intake. Patient states that she has impedance Wednesday. Patient complains of explosive diarrhea and abdominal pain knows only increased since she left the hospital couple days ago. She denies nausea and vomiting. Lab work in the ED shows leukocytosis at 21.8 sodium of 123, chloride 91, carbon dioxide 17, anion gap of 15, BUN of 31, creatinine of 3.30 with baseline being 0.99, GFR 15, glucose 241, calcium 7.9, CT abdomen pelvis show Interval progression of radiographically uncomplicated selby colitis which could be infectious, inflammatory or less likely ischemic in etiology. Patient was given 2 L IV fluid and started on Zosyn. Review of Systems Review of Systems: 12 systems were reviewed and are negativ e except for as per HPI. [facility] Past Medical History Medical History (Updated 11/03/24 @ 22:03 by Patsy Ramirez APRN) Anxiety Hyperlipidemia BMI 25.0-25.9,adult Hypertension Family History Family History Father Hypertension Cerebrovascular accident Mother Heart disease Sibling Diabetes mellitus Sibling Diabetes mellitus Social History Social History Smoking status: Never smoker Second hand tobacco smoke exposure: No Alcohol intake: current Substance use: never Substance use type: does not use Lack of Transportation: No Lack of Food: Never True Current Housing: I Have Housing Concerned About Future Housing: No Difficulty Paying Gas/Electric Bills: No Difficulty Paying for Meds: No Currently Unemployed: No Education: High School Diploma/GED Difficulty w/ Childcare or Family Care: No Living arrangements: with family 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 Gender identity (if verbalized by the patient): Female Spiritual care concerns: No Meds Home Medications and Allergies Home Medications ?Medication ?Instructions ?Recorded ?Confirmed ?Type cyclosporine 0.05 % eye drops 1 drp EACH EYE Q12H #5.5 mL 03/18/21 11/03/24 Rx (Restasis MultiDose) terbinafine HCl 250 mg tablet 250 mg PO DAILY 09/03/23 11/03/24 History simvastatin 20 mg tablet (Zocor) 20 mg PO DAILY #90 ta bs 04/12/24 11/03/24 Rx amlodipine 10 mg tablet 10 mg PO DAILY #90 tabs 04/03/1111/03/24 Rx trazodone 50 mg tablet 50 mg PO QHS #90 tabs 11/03/24 Rx spironolactone 50 mg tablet See Rx Instructions .Route 08/07/24 11/03/24 Rx .COMPLEX #90 tabs alprazolam 0.25 mg tablet 0.25 mg PO QHS PRN anxiety # 90 tabs 09/26/24 11/03/24 Rx lisinopril 40 mg tablet 40 mg PO DAILY #90 tabs 09/1511/03/24 Rx amoxicillin 875 mg-potassium 1 tablet PO Q12H #14 tabs 11/01/24 11/03/24 Rx clavulanate 125 mg tablet hydrocodone 5 mg-acetaminophen 325 1 tablet PO Q6H PRN pain #12 tabs 11/01/24 11/03/24 Rx mg tablet ondansetron 4 mg disintegrating 4 mg PO Q6H PRN nausea and 11/01/24 11/03/24 Rx tablet vomiting #10 tabs Allergies Allergy/AdvReac Type Severity Reaction Status Date / Time morphine Allergy Itching Verified 11/01/24 11:35 Vital Signs Vital Signs - 24 hr 11/03/24 10:41 11/03/24 11:42 11/03/24 11:44 Temperature 98.7 F Pulse Rate 87 85 85 Respiratory Rate 26 H 29 H 21 H Blood Pressure 128/49 L 112/68 Pulse Oximetry 97 89 L Oxygen Delivery Room Air 11/03/24 11:45 11/03/24 11:46 11/03/24 12:00 Temperature Pulse Rate 83 83 78 Respiratory Rate 25 H 25 H 25 H Blood Pressure 136/50 L Pulse Oximetry 96 98 93 Oxygen Delivery 11/03/24 12:01 Temperature Pulse Rate 81 Respiratory Rate 23 H Blood Pressure 137/49 L Pulse Oximetry 93 Oxygen Delivery Exam Narrative: General: well appearing, appears stated age. HEENT: normocephalic, atraumatic. Mucous membranes dry. EOMI, PERRLA, bilateral sclera anicteric, no conjunctival injection. Neck supple without JVD, lymphadenopathy, or bruit. Respiratory: clear to ascultation bilaterally. No rales/rhonic/wheezes. Cardiovascular: Regular rate and rhythm, normal S1-S2 upon ascultation. No murmurs, rubs, or clicks. PMI is nondisplaced, capillary refill less than 3 second. Abdomen: Soft, round, no pulsatile masses, nondistended and nontender. No rebound, no guarding. No CVA tenderness, no hepatosplenomegaly. Bowel sounds present to all four quadrants. No high pitch or tinkling sounds, resonant to percussion. Extremities: No cyanosis, clubbing, or edema present. Pulses are palpable 2/2. Active ROM to all four extremities. Neuro: Alert and orientated x 4. PERRLA. Cranial nerves 2-12 intact without focal deficit. Skin: Warm, dry, and intact, without rash, erythema, or lesion. Psych: pleasant, cooperative, normal speech, normal affect, no hallucinations, no dysarthia H&P: Results Labs Labs: Short CBC 11/03/24 Range/Units 11:19 WBC 21.8 H (4.5-10.0) K/mm3 Hgb 13.4 (12.0-15.0) g/dL Hct 38.6 (37.0-47.0) % Plt Count 364 (150-375) k/mm3 [facility] 11/03/24 11:19 Sodium 123 L Potassium 4.6 Chloride 91 L Carbon Dioxide 17 L BUN 31 H D Creatinine 3.03 H Glucose 241 H Calcium 7.9 L Liver Function 11/03/24 Range/Units 11:19 Total Bilirubin 0.6 (0.2-1.3) mg/dL AST 29 (14-36) U/L ALT 27 (6-35) U/L Alkaline Phosphatase 65 (38-126) U/L Albumin 3.5 (3.5-5.1) g/dL Assessment and Plan Assessment and plan (1) Colitis: Code(s): K52.9 - Noninfective gastroenteritis and colitis, unspecified Status: Acute Assessment and Plan: IV Zosyn npo C diff pending (2) Acute kidney injury: Code(s): N17.9 - Acute kidney failure, unspecified Status: Acute Assessment and Plan: Aggressive fluid hydration BMP in the morning Holland catheter placed for unable to urinate and low urine output Nephrology consulted (3) Anxiety: Code(s): F41.9 - Anxiety disorder, unspecified Status: Acute Assessment and Plan: Restart home Xanax (4) Hyperlipidemia: Qualifiers: Hyperlipidemia type: unspecified Qualified Code(s): E78.5 - Hyperlipidemia, unspecified Code(s): E78.5 - Hyperlipidemia, unspecified Status: Acute Assessment and Plan: Restart home statin (5) Hypertension: Code(s): I10 - Essential (primary) hypertension Status: Acute Assessment and Plan: Holding home antihypertensives due to severe dehydration Quality VTE Prophylaxis VTE prophylaxis: mechanical ordered and pharmacologic ordered Hospitalist [facility] Advance Care Plan I have confirmed that the patient's Advanced Care Plan is present, code status is documented, or surrogate decision maker is listed in patient medical record.: Yes Medication Reconciliation I have utilized all available resources to obtain, update and review the patients current medications (includes all prescriptions, OTC, herbals, cannabis, and nutritional supplements).: Yes
[2024-11-03] MEDS: MORPHINE SULFATE (*CRX) 2 MG/ML INJ IV PUSH ×2 (14:18→20:20)
[2024-11-03] MEDS: SODIUM CHLORIDE 0.9% IV 1,000 ML 100 ML IV CONT ×2 (14:19→23:31)
--- NOTE | 2024-11-03 14:35 | ADMGEN ---
This patient, Berenice Alex, was admitted to 2 Medical Room 260-01. Patient/family oriented to hospital policies and general routines including ID bracelet, bed and alarms, visiting hours, pain management, procedures, bathroom and other care routines, personal items, smoking policy, room service/diet, and visiting hours. Information on how to activate the Rapid Response Team has been discussed. Patient/Family are encouraged to report perceived risks to care and to ask questions if they do not understand what they are told or what they should do.
[2024-11-03] MEDS: cycloSPORINE 0.4 ML OPHTH SOLUTION 1 DROP EACH EYE (20:28)
[2024-11-03] MEDS: LIDOCAINE 2% GEL UROJET 10 ML PKG MUCOUS MEM (22:56)
[2024-11-03] MEDS: CALCIUM GLUC 2,000 MG/NS 100ML 2,000 MG/100 ML BAG 100 MG IVPB (23:27)
[2024-11-04] VITALS (7 sets, daily range): BP systolic 150–164; BP diastolic 41–90; PULSE 76–166; RESP 16–20; TEMP 36.3–37; O2SAT 90–94
[2024-11-04 00:39] LABS: Add Urine Microscopic? YES; Appearance Urine Cloudy (Clear); Glucose Urine UA Negative (Negative); Leukocyte Esterase Ur Trace LEU/UL (Negative); Need Manual Microscopic Reviewed; Nitrate Urine Negative (Negative); Specific Grav Ur 1.023 (1.001-1.035)
[2024-11-04] MEDS: MORPHINE SULFATE (*CRX) 2 MG/ML INJ IV PUSH ×3 (03:44→21:06)
[2024-11-04] MEDS: PIPERACILLIN/TAZOBACTAM SOD 2.25 GM in SODIUM CHLORIDE 0.9% IV 50 ML 100 ML IVPB ×3 (03:48→21:02)
[2024-11-04 05:12] LABS: Hematocrit 36.2 % (37.0-47.0); Hemoglobin 12.3 g/dL (12.0-15.0); Immature Granulocyte Percent A 1.4 % (0-0.5); Lymphocytes Absolute Auto 1.21 K/mm3 (0.9-3.2); Mean Corpuscular HGB Conc 34.0 g/dl (32-36); Mean Corpuscular Hemoglobin 31.5 pg (26-34); Mean Corpuscular Volume 92.6 fl (80-100); Nucleated Red Blood Cells Absolute Auto 0.000 K/mm3 (0.0-0.012); Nucleated Red Blood Cells Perc 0.0 % (0.0-0.2); Platelet Count Result 334 k/mm3 (150-375); Red Blood Count 3.91 M/mm3 (4.2-5.4); White Blood Count 28.1 K/mm3 (4.5-10.0)
[2024-11-04 05:32] LABS: Anion Gap 10 mmol/L (4-12); Blood Urea Nitrogen 36 mg/dL (7-17); Calcium 7.3 mg/dL (8.4-10.2); Carbon Dioxide 12 mmol/L (22-30); Chloride 101 mmol/L (98-107); Estimated CRCL calculation 15 ml/min; Estimated Glomerular Filt Rate 17; Glucose 157 mg/dL (65-110); Potassium 4.8 mmol/L (3.4-5.0); Sodium 123 mmol/L (137-145)
[2024-11-04 05:33] LABS: Band Neutrophils Percent 14 % (0-6); Lymphocytes Absolute Manual 1.68 K/mm3 (1.1-4.5); Lymphocytes Percent Manual 6.0 % (18-44); Monocytes Absolute Manual 1.40 K/mm3 (0.1-0.90); Monocytes Percent Manual 5 % (3-9); Neutrophils Absolute Manual 25.00 K/mm3 (1.3-6.7); Neutrophils Percent Manual 75 % (46-73); Total Cells Counted 100
[2024-11-04 05:34] LABS: Schistocytes None Seen
--- NOTE | 2024-11-04 07:20 | P.PNIM_ITS ---
Progress Note: A&P Assessment and Plan (1) Colitis: Code(s): K52.9 - Noninfective gastroenteritis and colitis, unspecified Status: Acute Assessment and Plan: IV Zosyn npo C diff pending patient reporting worsening abdominal pain, distention since admission wbc increased from 21.8 to 28.1 on Am labs order stat CT abdomen to rule out perforation AM labs (2) Acute kidney injury: Code(s): N17.9 - Acute kidney failure, unspecified Status: Acute Assessment and Plan: Aggressive fluid hydration BMP in the morning Holland catheter placed for unable to urinate and low urine output Nephrology consulted patient received IV contrast on 11/01/2024, prior to this study her BUN and creatinine were normal (3) Anxiety: Code(s): F41.9 - Anxiety disorder, unspecified Status: Acute Assessment and Plan: Restart home Xanax (4) Hyperlipidemia: Qualifiers: Hyperlipidemia type: unspecified Qualified Code(s): E78.5 - Hyperlipidemia, unspecified Code(s): E78.5 - Hyperlipidemia, unspecified Status: Acute Assessment and Plan: Restart home statin (5) Hypertension: Code(s): I10 - Essential (primary) hypertension Status: Acute Assessment and Plan: Holding home antihypertensives due to severe dehydration monitor blood pressures and restart once indicated Subjective Date/time seen: 11/04/24 07:20 Interval history: Patient seen and examined for a follow up visit. Patient seen lying in bed, in no acute distress. Patient reports increased abdominal pain since admission with abdominal distention. Patient is NPO. Patient is receiving IV antibiotics. Deb nt's WBC count increased from 21.8 to 28.1 today. Patient's abdomen is tender to light palpation and patient has guarding on exam. Stat Abdominal CT ordered to rule out perforation. Patient with DONOVAN so unable to order CT with contrast. Nephrology is consulted for DONOVAN. Continue NPO stats and IV fluids. Review of Systems Review of Systems: 12 systems were reviewed and are negativ e except for as per HPI. Exam Narrative: General: in mild distress due to pain, appears stated age. HEENT: normocephalic, atraumatic. Mucous membranes dry. EOMI, PERRLA, bilateral sclera anicteric, no conjunctival injection. Neck supple without JVD, lymphadenopathy, or bruit. Respiratory: clear to ascultation bilaterally. No rales/rhonic/wheezes. Cardiovascular: Regular rate and rhythm, normal S1-S2 upon ascultation. No murmurs, rubs, or clicks. PMI is nondisplaced, capillary refill less than 3 second. Abdomen: Soft, distended, tender to light palpation, guarding present. Bowel sounds present to all four quadrants. Extremities: No cyanosis, clubbing, or edema present. Pulses are palpable 2/2. Active ROM to all four extremities. Neuro: Alert and orientated x 4. PERRLA. Cranial nerves 2-12 intact without focal deficit. Skin: Warm, dry, and intact, without rash, erythema, or lesion. Psych: pleasant, cooperative, normal speech, normal affect, no hallucinations, no dysarthia Objective Data Vital Signs Vital Signs: Vital Signs - 24 hr 11/03/24 10:41 11/03/24 11:42 11/03/24 11:44 Temperature 98.7 F Pulse Rate 87 85 85 Respiratory Rate 26 H 29 H 21 H Blood Pressure 128/49 L 112/68 Pulse Oximetry 97 89 L Oxygen Delivery Room Air 11/03/24 11:45 11/03/24 11:46 11/03/24 12:00 Temperature Pulse Rate 83 83 78 Respiratory Rate 25 H 25 H 25 H Blood Pressure 136/50 L Pulse Oximetry 96 98 93 Oxygen Delivery 11/03/24 12:01 11/03/24 12:02 11/03/24 12:59 Temperature Pulse Rate 81 78 77 Respiratory Rate 23 H 22 H 25 H Blood Pressure 137/49 L Pulse Oximetry 93 95 96 Oxygen Delivery 11/03/24 13:03 11/03/24 13:20 11/03/24 15:01 Temperature 98.8 F Pulse Rate 76 80 80 Respiratory Rate 24 H 25 H 18 Blood Pressure 114/51 L Pulse Oximetry 94 99 96 Oxygen Delivery 11/03/24 20:00 11/03/24 20:53 11/03/24 23:29 Temperature 99.6 F 99 F Pulse Rate 87 92 Respiratory Rate 20 18 Blood Pressure 143/50 H 163/74 H Pulse Oximetry 94 91 Oxygen Delivery Room Air 11/04/24 03:19 Temperature 98 F Pulse Rate 89 Respiratory Rate 16 Blood Pressure 157/62 H Pulse Oximetry 92 Oxygen Delivery Intake/Output Intake/Output: Intake & Output 11/01/24 11/02/24 11/03/24 11/04/24 23:59 23:59 23:59 23:59 Intake Total 2019 150 Output Total 0 500 Balance 2020 -350 Meds/Results Medications: Active Medications Generic Name Dose Route Start Last Admin Trade Name Freq PRN Reason Stop Dose Admin Hydrocodone Bitart/Acetaminophen 1 tab 11/03/24 19:16 Hydrocodone/Acetaminophen (*Crx) 5-325 Mg Tablet PO Q6H PRN Pain 4-6 Alprazolam 0.25 mg 11/03/24 19:16 Alprazolam (*Crx) 0.25 Mg Tablet PO QHS PRN Anxiety Cyclosporine 1 drop 11/03/24 21:00 11/03/24 20:28 Cyclosporine 0.4 Ml Ophth Solution EACH EYE 1 drop Q12HR KEVIN Administration Diphenhydramine HCl 25 mg 11/03/24 13:10 11/04/24 03:45 Diphenhydramine Hcl Inj 50 Mg/Ml Vial IV PUSH 25 mg Q4HR PRN Administration Itching Heparin Sodium (Porcine) 5,000 units 11/04/24 09:00 Heparin Sodium 5,000 Units/Ml Vial SUB-Q Q12HR KEVIN Piperacillin Sod/Tazobactam 50 mls @ 100 mls/hr 11/03/24 20:00 11/04/24 03:48 Sod 2.25 gm/ Sodium Chloride IVPB 100 mls/hr Q8H KEVIN Administration Sodium Chloride 1,000 mls @ 100 mls/hr 11/03/24 13:10 11/03/24 23:31 Normal Saline Iv IV CONT 100 mls/hr .Q10H KEVIN Administration Miscellaneous Information 0 each 11/03/24 00:01 Terbinafine Takes For 7 Days Out Of The Month So When Is Next Dose Due??? XX 12/03/24 00:00 CLARIFY [facility] Morphine Sulfate 2 mg 11/03/24 13:10 11/04/24 03:44 Morphine Sulfate (*Crx) 2 Mg/Ml Inj IV PUSH 2 mg Q4H PRN Administration Pain Rated 7-10 Simvastatin 20 mg 11/04/24 09:00 Simvastatin 20 Mg Tablet PO DAILY [facility] Terbinafine HCl 250 mg 11/04/24 09:00 Terbinafine Hcl 250 Mg Tablet PO DAILY [facility] Trazodone HCl 50 mg 11/03/24 21:00 11/03/24 20:30 Trazodone Hcl 50 Mg Tablet PO Not Given QHS [facility] Radiology Results: ITS Impressions Abdomen/Pelvis CT 11/03/24 12:27 IMPRESSION: 1. Interval progression of radiographically uncomplicated selby colitis which could be infectious, inflammatory or less likely ischemic in etiology. Labs Labs: Laboratory Results - last 24 hr 11/03/24 11/03/24 11/03/24 11:19 14:52 23:33 WBC 21.8 H RBC 4.27 Hgb 13.4 Hct 38.6 MCV 90.4 MCH 31.4 MCHC 34.7 RDW 12.7 Plt Count 364 MPV 8.9 Immature Gran % (Auto) Not Reportable Neut % (Auto) Not Reportable Lymph % (Auto) Not Reportable [place] % (Auto) Not Reportable Eos % (Auto) Not Reportable Baso % (Auto) Not Reportable Lymph # (Auto) Not Reportable [place] # (Auto) Not Reportable Eos # (Auto) Not Reportable Baso # (Auto) Not Reportable Abs Immat Gran (auto) Not Reportable Absolute Neuts (auto) Not Reportable Absolute Nucleated RBC Not Reportable Total Counted 100 Neutrophils % (Manual) 72 Band Neutrophils % 20 H Lymphocytes % (Manual) 4 L Monocytes % (Manual) 4 Nucleated RBC % Not Reportable Abs Neuts (Manual) 20.05 H Abs Lymphs (Manual) 0.87 L Abs Monocytes (Manual) 0.87 Platelet Estimate Adequate Schistocytes None seen Sodium 123 L Potassium 4.6 Chloride 91 L Carbon Dioxide 17 L Anion Gap 15 H BUN 31 H D Creatinine 3.03 H Estim Creat Clear Calc 13 Estimated GFR 15 L Glucose 241 H Lactic Acid 1.4 Calcium 7.9 L Total Bilirubin 0.6 AST 29 ALT 27 Alkaline Phosphatase 65 Total Protein 6.4 Albumin 3.5 Lipase < 10 L Urine Color Dark yellow Urine Appearance Cloudy H Urine pH 5.0 Ur Specific [place] 1.023 Urine Protein 2+ H Urine Glucose (UA) Negative Urine Ketones Trace H Ur Blood (Man) Negative Urine Nitrate Negative Urine Bilirubin 1+ H Urine Urobilinogen 1.0 Add Ur Microanalysis Reviewed Leukocyte Esterase Rfl Trace H Urine RBC 0-2 Urine WBC 0-5 Ur Squamous Epith Cells Few Urine Bacteria None seen Urine Casts -11/04/24 04:54 WBC 28.1 H RBC 3.91 L Hgb 12.3 Hct 36.2 L MCV 92.6 MCH 31.5 MCHC 34.0 RDW 12.9 Plt Count 334 MPV 9.2 Immature Gran % (Auto) 1.4 H Neut % (Auto) 87.1 H Lymph % (Auto) 4.3 L [place] % (Auto) 7.1 Eos % (Auto) 0.0 Baso % (Auto) 0.1 L Lymph # (Auto) 1.21 [place] # (Auto) 2.0 H Eos # (Auto) 0.0 Baso # (Auto) 0.0 Abs Immat Gran (auto) 0.39 H Absolute Neuts (auto) 24.4 H Absolute Nucleated RBC 0.000 Total Counted 100 Neutrophils % (Manual) 75 H Band Neutrophils % 14 H Lymphocytes % (Manual) 6.0 L Monocytes % (Manual) 5 Nucleated RBC % 0.0 Abs Neuts (Manual) 25.00 H Abs Lymphs (Manual) 1.68 Abs Monocytes (Manual) 1.40 H Platelet Estimate Adequate Schistocytes None seen Sodium 123 L Potassium 4.8 Chloride 101 Carbon Dioxide 12 L Anion Gap 10 BUN 36 H Creatinine 2.68 H Estim Creat Clear Calc 15 Estimated GFR 17 L Glucose 157 H Lactic Acid Calcium 7.3 L Total Bilirubin AST ALT Alkaline Phosphatase Total Protein Albumin Lipase Urine Color Urine Appearance Urine pH Ur Specific [place] Urine Protein Urine Glucose (UA) Urine Ketones Ur Blood (Man) Urine Nitrate Urine Bilirubin Urine Urobilinogen Add Ur Microanalysis Leukocyte Esterase Rfl Urine RBC Urine WBC Ur Squamous Epith Cells Urine Bacteria Urine Casts Quality VTE Prophylaxis VTE prophylaxis: mechanical ordered and pharmacologic ordered
[2024-11-04] MEDS: SIMVASTATIN 20 MG TABLET PO (10:21)
[2024-11-04] MEDS: cycloSPORINE 0.4 ML OPHTH SOLUTION 1 DROP EACH EYE ×2 (10:27→21:02)
--- NOTE | 2024-11-04 10:30 | P.CONNP_ITS ---
Assessment and Plan Assessment and plan (1) Acute kidney injury: Code(s): N17.9 - Acute kidney failure, unspecified Status: Acute Assessment and Plan: * as noted by admission labs (creatinine of 3.03mg/dL) * baseline creatinine normal 2 days prior to admission * suspect multifactorial etiology: * prerenal factors * infection/early sepsis (diverticulitis/colitis) * contrast exposure (CT of A/P on 11/01) * relative hypotension on presentation * JAMIE-I/diuretic use prior to admission * urinary retention(?) - difficulty urinating on admission so gamble placed catheter placed * other (?) * check urine studies, CPK, and renal ultrasound * agree with IVFs as tolerated * hold lisinopril and spironolactone * follow trend of repeat labs and UOP (2) Pancolitis: Code(s): K52.9 - Noninfective gastroenteritis and colitis, unspecified Status: Acute Assessment and Plan: * as noted by CT imaging to date: * CT of A/P (11/03): Interval progression of radiographically uncomplicated selby colitis which could be infectious, inflammatory or less likely ischemic in etiology * CT of A/P (): Sigmoid diverticulitis. No perforation or abscess * follow culture data * follow trend of WBC * on antibiotics (3) Metabolic acidosis: Code(s): E87.20 - Acidosis, unspecified Status: Acute Assessment and Plan: * due to DONOVAN/ARF and GI symptoms * lactic acid normal * continue IVF resuscitation * may need to add bicarb to IVFs depending on trend of CO2 * follow repeat labs (4) Hypertension: Code(s): I10 - Essential (primary) hypertension Status: Chronic Assessment and Plan: * reasonable control * holding JAMIE-I and diuretics due to #1 * follow trend of hemodynamics Extensive discussion (> 20minutes) with the patient and her niece at bedside with regard to her acute kidney injury/acute renal failure and the concern that her gastrointestinal infection coupled with her outpatient medications, contrast exposure, and poor oral intake are the etiology of this issue and the hope that ongoing supportive therapy with regard to IV fluids, IV antibiotics, and supportive therapy will hopefully improve her kidney function in general. They both appeared to voice understanding. I will continue to follow the patient with you while she remains hospitalized and make further recommendations as deemed necessary. Thank you for allowing me to participate in the care of this patient. L History of Present Illness Reason for Consult Consult date: 11/04/24 Reason for consult: acute renal failure Chief Complaint Chief complaint: colitis/donovan History of Present Illness Narrative: The patient is a 78-year-old female with a past medical history as outlined below who presented to [facility] Emergency Room due to worsening abdominal pain. The patient actually presented to [facility] Emergency Room a few days ago with abdominal pain and subsequent workup and evaluation led to the diagnosis of acute diverticulitis. She was discharged home on oral antibiotics and antiemetics as there is was no evidence of abscess or perforation by imaging studies. Unfortunately, since her discharge from the emergency room, her abdominal pain has not really improved. She reports that her abdominal pain has continued to worsen in general and because of this has been unable to tolerate any oral intake. She reports the abdominal pain is rated 8/10 in severity.This is further complicated by the fact that she has had ongoing diarrhea as well since her previous ER visit in association with nausea but no reported vomiting. She denies any history of fevers or chills and reports she has been compliant with her oral antibiotic therapy. Given these worsening constellation of symptoms as mentioned, she presented back to the emergency room for further assessment. Workup and evaluation emergency room demonstrated the patient to be hemodynamically stable (although her blood pressure was a bit lower than baseline) and afebrile but in clear distress secondary to her abdominal pain. Routine blood work demonstrated white blood cell count of 21.8, hemoglobin 13.4, hematocrit 30.6, platelet count of 364, with a left shift of 20% bands, sodium 123, potassium 4.6, chloride 91, bicarb 17, BUN 31, creatinine 3.03, glucose 241, calcium 7.9, normal LFTs, and a lipase less than 10. repeat CT scan in the emergency room noted interval progression of radio graphic Katie uncomplicated selby colitis which could be infectious, inflammatory, or less likely ischemic in etiology. She received aggressive IV fluids in the emergency room and after appropriate cultures were obtained, started on IV antibiotics. She was subsequently admitted to the hospital for further evaluation therapy. Since her admission, repeat labs this morning only showed mild improvement in her renal function and worsening of her white blood cell count. Furthermore, she seem to be even more in discomfort with regard to her abdominal pain despite current interventions. A subsequent repeat CT scan of the abdomen pelvis has been ordered to ensure no change from previous imaging. Renal consultation was requested due to her acute kidney injury/ acute renal failure. As demonstrated by her labs on her previous ER visit 48 hours ago, the patient's renal function appears to be relatively normal with a creatinine that runs around 0.9 - 1.1 mg/dL in the last year with her creatinine being 0.99 mg/dL on her ER visit on 11/01/2024. On this hospital admission, her creatinine was 3.03 mg/dL with repeat labs this morning show a creatinine of 2.68 mg/dL. In association with her renal dysfunction is hyponatremia with a sodium level 123 millimoles per L although on her ER visit on 11/01 her sodium level was noted be 125 millimoles per L. the presumed etiology of her acute kidney injury is thought to be secondary to her abdominal infection although it should be noted that she had also received a contrast CT scan on her ER visit on 11/01 so there could be a component of contrast nephropathy playing a role as well. Furthermore, she had difficulty urinating on admission and a Gamble catheter was subsequently placed so there is a possibility that urinary retention may have been present as well. Currently, at the time my evaluation, the patient does not appear to be in any acute distress but still has some mild abdominal discomfort. Review of Systems 2 Review of Systems: As per HPI. [facility] Past Medical History Medical History (Updated 11/05/24 @ 11:16 by Cale Romano MD) BMI 25.0-25.9,adult Anxiety Hyperlipidemia Hypertension Family History Family History Father Hypertension Cerebrovascular accident Mother Heart disease Sibling Diabetes mellitus Sibling Diabetes mellitus Social History Social History Smoking status: Never smoker Second hand tobacco smoke exposure: No Alcohol intake: current Substance use: never Substance use type: does not use Lack of Transportation: No Lack of Food: Never True Current Housing: I Have Housing Concerned About Future Housing: No Difficulty Paying Gas/Electric Bills: No Difficulty Paying for Meds: No Currently Unemployed: No Education: High School Diploma/GED Difficulty w/ Childcare or Family Care: No Living arrangements: with family 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 Gender identity (if verbalized by the patient): Female Spiritual care concerns: No Meds Home Medications and Allergies Home Medications ?Medication ?Instructions ?Recorded ?Confirmed ?Type cyclosporine 0.05 % eye drops 1 drp EACH EYE Q12H #5.5 mL 03/18/21 11/03/24 Rx (Restasis MultiDose) terbinafine HCl 250 mg tablet 250 mg PO DAILY 09/03/23 11/03/24 History simvastatin 20 mg tablet (Zocor) 20 mg PO DAILY #90 ta bs 04/12/24 11/03/24 Rx amlodipine 10 mg tablet 10 mg PO DAILY #90 tabs 03/1111/03/24 Rx trazodone 50 mg tablet 50 mg PO QHS #90 tabs 11/03/24 Rx spironolactone 50 mg tablet See Rx Instructions .Route 08/07/24 11/03/24 Rx .COMPLEX #90 tabs alprazolam 0.25 mg tablet 0.25 mg PO QHS PRN anxiety # 90 tabs 09/26/24 11/03/24 Rx lisinopril 40 mg tablet 40 mg PO DAILY #90 tabs 09/1511/03/24 Rx amoxicillin 875 mg-potassium 1 tablet PO Q12H #14 tabs 11/01/24 11/03/24 Rx clavulanate 125 mg tablet hydrocodone 5 mg-acetaminophen 325 1 tablet PO Q6H PRN pain #12 tabs 11/01/24 11/03/24 Rx mg tablet ondansetron 4 mg disintegrating 4 mg PO Q6H PRN nausea and 11/01/24 11/03/24 Rx tablet vomiting #10 tabs Allergies Allergy/AdvReac Type Severity Reaction Status Date / Time morphine Allergy Itching Verified 11/01/24 11:35 Vital Signs Vital Signs Temp Pulse Resp BP Pulse Ox O2 Del Method 11/04/24 10:15 Room Air 11/04/24 09:25 97.7 F 100 16 151/52 H 92 11/04/24 09:10 Room Air 11/04/24 03:19 98 F 89 16 157/62 H 92 11/03/24 23:29 99 F 92 18 163/74 H 91 11/03/24 20:53 99.6 F 87 20 143/50 H 94 11/03/24 20:00 Room Air Exam 2 Narrative: GENERAL APPEARANCE: elderly but well developed well nourished female in no acute distress HEENT: normocephalic, atraumatic, normal conjunctiva and sclera, nares patient NECK: no lymphadenopathy, thyromegaly, or JVD MOUTH: normal lips, teeth, and gums CARDIOVASCULAR: RRR, normal S1 and S2, no rub RESPIRATORY: clear to auscultation ABDOMEN: soft but +TTP and mild distension, positive bowel sounds present EXTREMITIES: no evidence of cyanosis, clubbing, or edema NEUROLOGICAL: alert and oriented x 3; CN II - XII intact bilaterally; no focal deficits noted Results Lab Results 11/05/24 04:18 11/05/24 04:18 Lab results: Most recent lab results Calcium 7.3 mg/dL (8.4-10.2) L 11/04/24 04:54 Urine Creatinine 171.6 mg/dL 11/04/24 13:05 Urine Creatinine Cancelled 11/04/24 13:05
[2024-11-04] MEDS: SODIUM CHLORIDE 0.9% IV 1,000 ML 100 ML IV CONT (12:06)
[2024-11-04] MEDS: HYDROcodone/acetaminophen (*CRX) 5-325 MG TABLET 1 TAB PO (15:25)
[2024-11-04 16:10] LABS: Urine Eos QC 2nd Tech Confirmed
[2024-11-04 16:19] LABS: Total Protein Urine Random 36 mg/dL; Ur Ttl Prot Creatinine Ratio 0.21 mg/mg (0-0.20)
[2024-11-04 16:26] LABS: Urea Random Urine 419 MG/DL
[2024-11-04 21:06] LABS: Anion Gap 12 mmol/L (4-12); Blood Urea Nitrogen 45 mg/dL (7-17); Calcium 7.1 mg/dL (8.4-10.2); Carbon Dioxide 12 mmol/L (22-30); Chloride 103 mmol/L (98-107); Estimated CRCL calculation 13 ml/min; Estimated Glomerular Filt Rate 15; Glucose 143 mg/dL (65-110); Potassium 5.2 mmol/L (3.4-5.0); Sodium 127 mmol/L (137-145)
--- NOTE | 2024-11-04 23:30 | ECG_ITS ---
Test Date: 2024-11-04 23:39:43 Measurements Intervals [place] Rate: 163 P: 0 MT: 0 QRS: -7 QRSD: 114 T: 71 QT: 275 QTc: 453 Interpretive Statements ATRIAL FLUTTER WITH TWO-TO-ONE CONDUCTION NONSPECIFIC T-WAVE CHANGES CRITICAL TEST RESULT No previous ECG available for comparison Electronically Signed On 11-05-2024 08:25:02 CDT by Cale Romano M.D.
[2024-11-05] VITALS (24 sets, daily range): BP systolic 107–152; BP diastolic 47–95; PULSE 78–166; RESP 16–22; TEMP 36.4–37.1; O2SAT 90–94
--- NOTE | 2024-11-05 00:10 | PM.CCN ---
Critical Care Event Note Summary Code activated: No Narrative: Called by nursing for patient being tachycardic after getting out of bed EKG shows atrial fibrillation rate of 161 Chest x-ray wet read atelectasis with likely pulmonary edema 5 of IV metoprolol cardiology consulted Call Nephrology with recommendations for 2 mg of Bumex, bicarb push instead of bicarb drip. This case had a high probability of a clinically significant, sudden, or life threatening deterioration of this patient's condition which required my full and direct attention, intervention and personal management. Critical care time: 30 - 74 mins
[2024-11-05] MEDS: METOPROLOL TARTRATE INJ 5 MG/5 ML VIAL IV PUSH ×2 (00:17→02:02)
[2024-11-05] MEDS: BUMETANIDE INJ 1 MG/4 ML VIAL 2 MG IV PUSH (00:47)
[2024-11-05] MEDS: SODIUM BICARBONATE 8.4% 50 MEQ/50 ML SYRINGE 100 MEQ IV PUSH (00:53)
--- NOTE | 2024-11-05 02:27 | ECG_ITS ---
Test Date: 2024-11-05 03:32:22 Measurements Intervals [place] Rate: 150 P: 0 OK: 0 QRS: -28 QRSD: 82 T: 26 QT: 255 QTc: 403 Interpretive Statements ATRIAL FLUTTER WITH TWO-TO-ONE CONDUCTION NONSPECIFIC T-WAVE ABNORMALITY ABNORMAL ECG * Compared to ECG 11/04/2024 23:39:43 NO SIGNIFICANT CHANGE Electronically Signed On 11-05-2024 08:29:24 CDT by Cale Romano M.D.
--- NOTE | 2024-11-05 02:52 | PC.NURSE ---
Patient started having tachy of 166, provider informed, EKG stat taken, metoprolol tartrate 5mg given IV, HR maintained at between 147-150. Another dose of metoprolol IV 5mg given with no effect. Patient transferred to IMU for close monitoring and IV cardiac medications.
[2024-11-05] MEDS: PIPERACILLIN/TAZOBACTAM SOD 2.25 GM in SODIUM CHLORIDE 0.9% IV 50 ML 100 ML IVPB ×3 (04:17→20:20)
--- NOTE | 2024-11-05 04:30 | PC.NURSE ---
This patient, Berenice Alex, was received from [facility] on 11/05/24 at 0430. Patient/family oriented to unit policies and routines
[2024-11-05 05:25] LABS: Hematocrit 38.3 % (37.0-47.0); Hemoglobin 13.1 g/dL (12.0-15.0); Mean Corpuscular HGB Conc 34.2 g/dl (32-36); Mean Corpuscular Hemoglobin 31.5 pg (26-34); Mean Corpuscular Volume 92.1 fl (80-100); Platelet Count Result 389 k/mm3 (150-375); Red Blood Count 4.16 M/mm3 (4.2-5.4); White Blood Count 34.1 K/mm3 (4.5-10.0)
[2024-11-05] MEDS: dilTIAZem 100 MG/100 ML 100 MG/100 ML BAG IV CONT (05:29)
[2024-11-05 05:49] LABS: Alanine Aminotransferase 31 U/L (6-35); Albumin Level 2.5 g/dL (3.5-5.1); Alkaline Phosphatase 107 U/L (38-126); Anion Gap 13 mmol/L (4-12); Aspartate Amino Transferase 41 U/L (14-36); Bilirubin,Total 1.1 mg/dL (0.2-1.3); Blood Urea Nitrogen 52 mg/dL (7-17); Calcium 7.3 mg/dL (8.4-10.2); Carbon Dioxide 17 mmol/L (22-30); Chloride 100 mmol/L (98-107); Creatine Kinase 77 U/L (30-135); Estimated CRCL calculation 11 ml/min; Estimated Glomerular Filt Rate 12; Glucose 128 mg/dL (65-110); Potassium 5.0 mmol/L (3.4-5.0); Sodium 130 mmol/L (137-145); Total Protein 5.3 g/dL (6.3-8.2)
[2024-11-05] MEDS: HYDROcodone/acetaminophen (*CRX) 5-325 MG TABLET 1 TAB PO (05:55)
--- NOTE | 2024-11-05 06:05 | ECG_ITS ---
Test Date: 2024-11-05 06:26:27 Measurements Intervals [place] Rate: 155 P: 0 VT: 0 QRS: -29 QRSD: 133 T: 11 QT: 245 QTc: 394 Interpretive Statements ATRIAL FLUTTER/ WITH RAPID VENTRICULAR RESPONSE NONSPECIFIC T-WAVE ABNORMALITY Compared to ECG 11/05/2024 03:32:22 COMPARED WITH TWO PREVIOUS ECGS DURING THIS ADMISSION THE FINDINGS ARE UNCHANGED Electronically Signed On 11-05-2024 08:30:18 CDT by Cale Romano M.D.
--- NOTE | 2024-11-05 06:14 | PM.CCN ---
Critical Care Event Note Summary Code activated: No Narrative: This case had a high probability of a clinically significant, sudden, or life threatening deterioration of this patient's condition which required my full and direct attention, intervention and personal management. The patient's heart rate was in the 160s and 170s. The patient was given another dose of Lopressor without any significant change in her heart rate. The patient was then given IV bolus of Cardizem which appeared to help some. The patient was then moved to [facility] and placed on a Cardizem drip. Cardiology consultation was greatly appreciated. Patient appears to be on a heparin drip already. Unable to do pulmonary CTA at this point due to renal failure. Patient's O2 requirements have increased. Critical care time: 30 - 74 mins
[2024-11-05 06:19] LABS: Band Neutrophils Percent 35 % (0-6); Lymphocytes Absolute Manual 0.68 K/mm3 (1.1-4.5); Lymphocytes Percent Manual 2 % (18-44); Monocytes Absolute Manual 1.36 K/mm3 (0.1-0.90); Monocytes Percent Manual 4 % (3-9); Neutrophils Absolute Manual 32.05 K/mm3 (1.3-6.7); Neutrophils Percent Manual 59 % (46-73); Schistocytes None Seen; Total Cells Counted 100
[2024-11-05 07:27] LABS: Troponin I 0.132 ng/mL (0.000-0.034)
[2024-11-05 07:58] LABS: Troponin I 0.196 ng/mL (0.000-0.034)
[2024-11-05] MEDS: SIMVASTATIN 20 MG TABLET PO (08:40)
[2024-11-05] MEDS: cycloSPORINE 0.4 ML OPHTH SOLUTION 1 DROP EACH EYE ×2 (08:41→20:43)
[2024-11-05 11:08] LABS: Troponin I 0.251 ng/mL (0.000-0.034)
--- NOTE | 2024-11-05 11:11 | PM.CNCAR ---
Assessment and Plan Assessment and plan (1) Atrial flutter: Code(s): I48.92 - Unspecified atrial flutter Status: Acute Plan this is a 78-year-old lady without specific cardiac history who has developed atrial flutter with RVR while she is hospitalized for treatment of colitis. This illness is been marked by abdominal pain and significant diarrhea presumably that has resulted in acute renal injury as well. The arrhythmia appears to have acutely started yesterday. As expected atrial flutter has not responded well in all to diltiazem. I will stop the diltiazem and switch her to IV amiodarone in hopes of converting her back to sinus. I will also start systemic anticoagulation with oral apixaban. Will follow her with you. I do not wish to continue her on amiodarone for the long-term to treat her atrial arrhythmia but given acute colitis and acute renal failure this is probably the best short-term option in terms of affecting a medical cardioversion. Cale Romano MD [facility] History of Present Illness History of Present Illness Consult date/time: 11/05/24 11:11 Reason For Visit: colitis/ridge Narrative: this is a 78-year-old lady I am seeing at the request of the hospitalist for assistance with the management of atrial flutter. The patient is known to me with a history of hypertension but no other significant cardiac diagnosis. I was asked to see her in the office a couple of times for assistance with management of her blood pressure. At 1 time there was concern that she might of had intermittent atrial fibrillation however a Holter monitor did not show any evidence of that. I last saw this lady in the office actually relatively recently on 10/03/2024 at which time she had no cardiovascular complaints and felt well. Her hypertension regimen consisted of lisinopril amlodipine and spironolactone. She came into the hospital emergency room a couple of times recently complaining of abdominal pain and diarrhea and it is felt that she has colitis. She is being treated with antibiotics and yesterday while in the hospital she abruptly noted the onset of tachycardia / palpitations. She was found to be in atrial flutter with 2-1 conduction with a heart rate of 150 and she was placed on intravenous diltiazem. That is been running since yesterday evening and has not affected the rhythm at all. In this setting I am seeing her in consultation. She did have an echocardiogram last year which showed normal left ventricular systolic function and no significant valvular disease. With this current illness her amlodipine and lisinopril are not being given a at this time. In addition with this current illness she appears to have acute renal insufficiency with a BUN in the 30 and creatinine of 3. I do not recall her having a history of renal disease before this. Review of Systems Constitutional: Constitutional: Reports no additional constitutional complaints Eyes: Eyes: Reports no additional eye complaints ENT: Reports system reviewed and no additional complaints, except as documented Cardiovascular: Cardiovascular: Reports palpitations Respiratory: Respiratory: Reports no additional respiratory complaints Gastrointestinal: Gastrointestinal: Reports as per HPI, Reports abdominal pain and Reports diarrhea Musculoskeletal: Musculoskeletal: Reports no additional musculoskeletal complaints Integumentary/Breasts: Skin/Breast: Reports system reviewed and no additional complaints, except as docu Neurologic: Reports system reviewed and no additional complaints, except as documented Endocrine: Endocrine: Reports no additional endocrine complaints Hematologic/Lymphatic: Hematologic/Lymphatic: Reports no additional hematologic/lymphatic complaints Allergic/Immunologic: Allergic/Immunologic: Reports no additional allergic/immunologic complaints [facility] Past Medical History Medical History (Updated 11/05/24 @ 11:16 by Cale Romano MD) Anxiety Hyperlipidemia BMI 25.0-25.9,adult Hypertension Family History Family History Father Hypertension Cerebrovascular accident Mother Heart disease Sibling Diabetes mellitus Sibling Diabetes mellitus Social History Social History Smoking status: Never smoker Second hand tobacco smoke exposure: No Alcohol intake: current Substance use: never Substance use type: does not use Lack of Transportation: No Lack of Food: Never True Current Housing: I Have Housing Concerned About Future Housing: No Difficulty Paying Gas/Electric Bills: No Difficulty Paying for Meds: No Currently Unemployed: No Education: High School Diploma/GED Difficulty w/ Childcare or Family Care: No Living arrangements: with family 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 Gender identity (if verbalized by the patient): Female Spiritual care concerns: No Meds Home Medications and Allergies Home Medications ?Medication ?Instructions ?Recorded ?Confirmed ?Type cyclosporine 0.05 % eye drops 1 drp EACH EYE Q12H #5.5 mL 03/18/21 11/03/24 Rx (Restasis MultiDose) terbinafine HCl 250 mg tablet 250 mg PO DAILY 09/03/23 11/03/24 History simvastatin 20 mg tablet (Zocor) 20 mg PO DAILY #90 tabs 04/12/24 11/03/24 Rx amlodipine 10 mg tablet 10 mg PO DAILY #90 tabs 05/16/24 11/03/24 Rx trazodone 50 mg tablet 50 mg PO QHS #90 tabs 05/16/24 11/03/24 Rx spironolactone 50 mg tablet See Rx Instructions .Route 08/07/24 11/03/24 Rx .COMPLEX #90 tabs alprazolam 0.25 mg tablet 0.25 mg PO QHS PRN anxiety #90 tabs 09/26/24 11/03/24 Rx lisinopril 40 mg tablet 40 mg PO DAILY #90 tabs 10/01/24 11/03/24 Rx amoxicillin 875 mg-potassium 1 tablet PO Q12H #14 tabs 11/01/24 11/03/24 Rx clavulanate 125 mg tablet hydrocodone 5 mg-acetaminophen 325 1 tablet PO Q6H PRN pain #12 tabs 11/01/24 11/03/24 Rx mg tablet ondansetron 4 mg disintegrating 4 mg PO Q6H PRN nausea and 11/01/24 11/03/24 Rx tablet vomiting #10 tabs Allergies Allergy/AdvReac Type Severity Reaction Status Date / Time morphine Allergy Itching Verified 11/01/24 11:35 Vital Signs Vital Signs - 24 hr 11/04/24 15:52 11/04/24 20:00 11/04/24 20:00 Temperature 37.0 C 36.3 C L Pulse Rate 98 76 Respiratory Rate 16 16 Blood Pressure 150/41 H 164/90 H Pulse Oximetry 90 94 92 Oxygen Delivery Nasal Cannula Oxygen Flow Rate 2 11/04/24 23:32 11/04/24 23:35 11/04/24 23:51 Temperature 36.9 C Pulse Rate 166 H Respiratory Rate 20 Blood Pressure 151/54 H Pulse Oximetry 90 90 Oxygen Delivery Room Air Oxygen Flow Rate 11/05/24 00:17 11/05/24 02:02 11/05/24 03:44 Temperature 36.7 C Pulse Rate 166 H 155 H 149 H Respiratory Rate 18 Blood Pressure 128/69 Pulse Oximetry 92 Oxygen Delivery Oxygen Flow Rate 11/05/24 04:35 11/05/24 05:29 11/05/24 06:35 Temperature 36.9 C Pulse Rate 152 H 157 H 156 H Respiratory Rate 16 Blood Pressure 117/65 110/59 L Pulse Oximetry 94 Oxygen Delivery Oxygen Flow Rate 11/05/24 08:00 11/05/24 08:00 11/05/24 08:15 Temperature 36.4 C L Pulse Rate 161 H 156 H 155 H Respiratory Rate 16 Blood Pressure 107/53 L 107/53 L Pulse Oximetry 93 Oxygen Delivery Oxygen Flow Rate 11/05/24 10:22 Temperature Pulse Rate 157 H Respiratory Rate Blood Pressure 113/56 L Pulse Oximetry Oxygen Delivery Oxygen Flow Rate Exam Const: General: uncomfortable Other: Very pleasant lady appearing her stated age she is uncomfortable with abdominal discomfort no specific awareness of tachycardia HENMT: Mouth: Yes moist mucous membranes Eyes: Sclera: sclerae normal Neck: Neck: supple Resp: Effort & Inspection: normal respiratory effort Auscultation: clear to auscultation bilaterally Cardio: Rate: tachycardic Rhythm: regular rhythm GI: Inspection: distended Skin: General skin exam: normal color Neuro: Other: alert and oriented x3 Extrem: General: normal to inspection Results Labs and Meds 11/05/24 04:18 11/05/24 04:18 Lab results: Cardiac Enzymes 11/05/24 11/05/24 11/05/24 Range/Units 04:18 07:05 10:23 AST 41 H (14-36) U/L Troponin I 0.132 H* 0.196 H* D 0.251 H* D (0.000-0.034) ng/mL CBC 11/05/24 Range/Units 04:18 WBC 34.1 H (4.5-10.0) K/mm3 RBC 4.16 L (4.2-5.4) M/mm3 Hgb 13.1 (12.0-15.0) g/dL Hct 38.3 (37.0-47.0) % Plt Count 389 H (150-375) k/mm3 Lymph # (Auto) Not Reportable [place] # (Auto) Not Reportable Eos # (Auto) Not Reportable Baso # (Auto) Not Reportable Comprehensive Metabolic Panel 11/04/24 11/05/24 Range/Units 20:39 04:18 Sodium 127 L 130 L (137-145) mmol/L Potassium 5.2 H 5.0 (3.4-5.0) mmol/L Chloride 103 100 (98-107) mmol/L Carbon Dioxide 12 L 17 L (22-30) mmol/L BUN 45 H 52 H (7-17) mg/dL Creatinine 3.12 H 3.55 H (0.7-1.0) mg/dL Glucose 143 H 128 H (65-110) mg/dL Calcium 7.1 L 7.3 L (8.4-10.2) mg/dL AST 41 H (14-36) U/L ALT 31 (6-35) U/L Alkaline Phosphatase 107 (38-126) U/L Total Protein 5.3 L (6.3-8.2) g/dL Albumin 2.5 L (3.5-5.1) g/dL Intake and Output 11/04/24 11/05/24 11/05/24 23:59 07:59 15:59 Intake Total 50 50 24.4 Output Total 150 200 Balance -100 -150 24.4 Intake: IV 50 50 24.4 dilTIAZem 100 MG/100 ML 100 mg 24.4 In 100 ml @ 5 MG/HR 5 mls/hr IV CONT .Q20H [facility] Rx#:[id number] Piperacillin/Tazobactam Sod 2. 50 50 25 gm In Sodium Chloride 0.9% IV 50 ml @ 100 mls/hr IVPB Q8H [facility] Rx#:[id number] Output: Catheter Urine 150 200 Urethral Catheter 150 200 Other: Number of Bowel Movements Today 1 2
--- NOTE | 2024-11-05 11:31 | P.PNNP_ITS ---
Progress Note: A&P Assessment and Plan (1) Acute kidney injury: Code(s): N17.9 - Acute kidney failure, unspecified Status: Acute Assessment and Plan: * as noted by admission labs (creatinine of 3.03mg/dL) * creatinine normal 2 days prior to admission * baseline creatinine runs ~ 0.9 - 1.1mg/dL * suspect multifactorial etiology: * prerenal factors * infection/early sepsis (diverticulitis/colitis) * contrast exposure (CT of A/P on 11/01) * relative hypotension on presentation * JAMIE-I/diuretic use prior to admission * urinary retention(?) - difficulty urinating on admission so gamble catheter placed * other (?) * off IVFs due to concerns for volume overload * evaluation to date noted: * renal ultrasound without obstruction * urine electrolytes prerenal * urine eosinophils negative * CPK normal * mild proteinuria * holding lisinopril and spironolactone * remains at risk for [employer]/hemodialysis * follow trend of repeat labs and UOP (2) Pancolitis: Code(s): K52.9 - Noninfective gastroenteritis and colitis, unspecified Status: Acute Assessment and Plan: * as noted by CT imaging to date: * CT of A/P (11/04): No evidence of bowel perforation; persistent severe pancolitis * CT of A/P (11/03): Interval progression of radiographically uncomplicated selby colitis which could be infectious, inflammatory or less likely ischemic in etiology * CT of A/P (11/01): Sigmoid diverticulitis. No perforation or abscess * follow culture data * follow trend of WBC * on antibiotics (3) Metabolic acidosis: Code(s): E87.20 - Acidosis, unspecified Status: Acute Assessment and Plan: * due to DONOVAN/ARF and GI symptoms * lactic acid normal * IVFs limited due to concerns about fluid overload * will try oral sodium bicarbonate * follow repeat labs (4) Hyponatremia: Code(s): E87.1 - Hypo-osmolality and hyponatremia Status: Acute Assessment and Plan: * as noted on admission * possible chronic component -- sodium seems to run 129 - 136mmol/L since 2021 * presumably worsen by DONOVAN/ARF and prerenal factors * improvement s/p IVF resuscitation * follow trend of sodium (5) Atrial flutter: Code(s): I48.92 - Unspecified atrial flutter Status: Acute Assessment and Plan: * as noted by events early this AM (11/05) * Cardiology recommendations noted * on IV amiodarone * on heparin gtt for anticoagulation * would consider holding Eliquis (may need further procedures regarding DONOVAN and diverticulitiis/pancolitis) * check Echo (6) Hypertension: Code(s): I10 - Essential (primary) hypertension Status: Chronic Assessment and Plan: * reasonable control * holding JAMIE-I and diuretics due to #1 * follow trend of hemodynamics Another long and extensive discussion (> 20 minutes) with the patient regarding her worsening renal dysfunction in the context of the events noted earlier this morning with regard to her atrial flutter and the concerns for possible volume overload. I voiced my concern that if her kidney function continues to worsen or she runs into further problems/ issues with volume overload, critical electrolyte abnormalities, resistant acidosis, or uremia, she may require renal replacement therapy/dialysis. She appeared to voice understanding to this possibility. Will continue to follow. L Subjective Date/time seen: 11/05/24 11:31 Interval history: Follow-up for acute kidney injury/acute renal failure. Events noted yesterday afternoon/overnight -- rapid reponse x 2 for atrial flutter with RVR with limited response to IV metoprolol and IV cardizem as well as cardizem gtt complicated by hypoxia and the pulmonary edema by CXR; given a dose of IV bumex and IVFs discontinued; seen by Cardiology earlier this AM; appears relatively comfortable at the time of my visit. Exam 2 Narrative: General: elderly but WD/WN female in NAD Heart: tachycardic, normal S1 and S2; no rub Lungs: clear to auscultation Abdomen: soft, mild distension with +TTP, positive bowel sounds Extremities: no cyanosis or clubbing; no edema Skin: warm and dry Objective Data Vital Signs Vital Signs: Vital Signs Temp Pulse Resp BP Pulse Ox O2 Del Method O2 Flow Rate 11/05/24 11:23 116 H 11/05/24 11:18 157 H 11/05/24 11:10 155 H 113/56 L 11/05/24 10:22 157 H 113/56 L 11/05/24 08:15 155 H 107/53 L 11/05/24 08:00 156 H 11/05/24 08:00 97.5 F L 161 H 16 107/53 L 93 11/05/24 06:35 156 H 11/05/24 05:29 157 H 110/59 L 11/05/24 04:35 98.4 F 152 H 16 117/65 94 11/05/24 03:44 98.1 F 149 H 18 128/69 92 11/05/24 02:02 155 H 11/05/24 00:17 166 H 11/04/24 23:51 90 Room Air 11/04/24 23:35 98.5 F 20 151/54 H 90 11/04/24 23:32 166 H 11/04/24 20:00 92 Nasal Cannula 2 11/04/24 20:00 97.4 F L 76 16 164/90 H 94 11/04/24 15:52 98.6 F 98 16 150/41 H 90 Intake/Output Intake/Output: Intake & Output 11/02/24 11/03/24 11/04/24 11/05/24 23:59 23:59 23:59 23:59 Intake Total 2019 1300 229.1 Output Total 650 200 Balance 2019 650 29.1 Meds/Results Medications: Active Medications Generic Name Dose Route Start Last Admin Trade Name Freq PRN Reason Stop Dose Admin Hydrocodone Bitart/Acetaminophen 1 tab 11/03/24 19:16 11/05/24 05:55 Hydrocodone/Acetaminophen (*Crx) 5-325 Mg Tablet PO 1 tab Q6H PRN Administration Pain 4-6 Alprazolam 0.25 mg 11/03/24 19:16 Alprazolam (*Crx) 0.25 Mg Tablet PO QHS PRN Anxiety Apixaban 5 mg 11/05/24 21:00 Apixaban 5 Mg Tablet PO Q12HR KEVIN Cyclosporine 1 drop 11/03/24 21:00 11/05/24 08:41 Cyclosporine 0.4 Ml Ophth Solution EACH EYE 1 drop Q12HR KEVIN Administration Diphenhydramine HCl 25 mg 11/03/24 13:10 11/04/24 21:06 Diphenhydramine Hcl Inj 50 Mg/Ml Vial IV PUSH 25 mg Q4HR PRN Administration Itching Piperacillin Sod/Tazobactam 50 mls @ 100 mls/hr 11/03/24 20:00 11/05/24 15:11 Sod 2.25 gm/ Sodium Chloride IVPB Infused Q8H KEVIN Infusion Amiodarone HCl/Dextrose 360 mg in 200 mls @ 33.333 mls/hr 11/05/24 11:20 11/05/24 11:55 Nexterone 360 Mg/D5w 200 Ml IV CONT 11/05/24 17:19 1 mg/min .Q6H ONE 33.33 mls/hr 1 MG/MIN Administration Amiodarone HCl/Dextrose 360 mg in 200 mls @ 16.667 mls/hr 11/05/24 17:20 Nexterone 360 Mg/D5w 200 Ml IV CONT .Q12H KEVIN 0.5 MG/MIN Miscellaneous Information 0 each 11/03/24 00:01 11/05/24 06:18 Terbinafine Takes For 7 Days Out Of The Month So When Is Next Dose Due??? XX 12/03/24 00:00 Not Given CLARIFY KEVIN Morphine Sulfate 2 mg 11/03/24 13:10 11/04/24 21:06 Morphine Sulfate (*Crx) 2 Mg/Ml Inj IV PUSH 2 mg Q4H PRN Administration Pain Rated 7-10 Simvastatin 20 mg 11/04/24 09:00 11/05/24 08:40 Simvastatin 20 Mg Tablet PO 20 mg DAILY KEVIN Administration Terbinafine HCl 250 mg 11/04/24 09:00 Terbinafine Hcl 250 Mg Tablet PO DAILY KEVIN Trazodone HCl 50 mg 11/03/24 21:00 11/04/24 21:00 Trazodone Hcl 50 Mg Tablet PO Not Given QHS KEVIN Trazodone HCl 50 mg 11/05/24 14:58 Trazodone Hcl 50 Mg Tablet PO HS PRN Insomnia Radiology Results: ITS Impressions Abdomen/Pelvis CT 11/04/24 12:36 IMPRESSION: 1. No evidence of bowel perforation. 2. Persistent severe pancolitis. 3. New small scattered ascites. 4. New small pleural effusions and significant bibasilar atelectasis. Renal Ultrasound 11/04/24 19:07 Impression: Simple appearing left renal cyst. No significant medical renal disease or obstruction Chest X-Ray 11/05/24 11:19 IMPRESSION: 1. Mild bibasilar atelectasis and/or airspace disease. 2. Small pleural effusions. Labs Labs: Laboratory Tests 11/05/24 04:18 11/05/24 04:18 Calcium 7.3 L Total Bilirubin 1.1 AST 41 H ALT 31 Alkaline Phosphatase 107 Total Creatine Kinase 77 Troponin I 0.132 H* Total Protein 5.3 L Albumin 2.5 L Microbiology 11/03/24 14:47 Blood Blood Culture - Preliminary 11/03/24 14:38 Blood Blood Culture - Preliminary
[2024-11-05 11:56] LABS: Alveolar/Arterial O2 Gradient 275.7 mmHg; Fractional Inspired Oxygen 52 %; HCO3 ABG 12.6 mEq/l (22.0-26.0); Oxygen Content ABG 17.4 %vol (16.0-22.0); Oxygen Saturation ABG 93.3 % (95.0-100.0); PO2 ABG 68.6 mmHg (80.0-100.0); PO2 FiO2 Ratio Arterial Blood 1.32 %
--- NOTE | 2024-11-05 11:58 | PCRCNOTE ---
ABG'S delayed due to pt being a hard stick
[2024-11-05 12:00] LABS: PCO2 ABG 23.6 mmHg (35.0-45.0); Site Drawn RIGHT BRACHIAL
[2024-11-05 12:01] LABS: Liters per Minute 8.0 LPM
[2024-11-05 13:14] LABS: MRSA (PCR) NOT DETECTED (NOT DETECTE)
--- NOTE | 2024-11-05 16:11 | P.PNIM_ITS ---
Progress Note: A&P Assessment and Plan (1) Colitis: Code(s): K52.9 - Noninfective gastroenteritis and colitis, unspecified Status: Acute Assessment and Plan: Abb Xray this morning suggestive of SBO CT AP stat ordered NPO, continue ZOsyn monitor leukocytosis, WBC 34 monitor closely (2) Acute kidney injury: Code(s): N17.9 - Acute kidney failure, unspecified Status: Acute Assessment and Plan: Infection vs Contrast related injury vs BMP in the morning Continue to monitor urine output IVF discontinued due to fluid overload patient received IV contrast on 11/01/2024, prior to this study her BUN and creatinine were normal Nephrology following and i discussed plan of care with him (3) Anxiety: Code(s): F41.9 - Anxiety disorder, unspecified Status: Acute Assessment and Plan: Restart home Xanax (4) Hyperlipidemia: Qualifiers: Hyperlipidemia type: unspecified Qualified Code(s): E78.5 - Hyperlipidemia, unspecified Code(s): E78.5 - Hyperlipidemia, unspecified Status: Acute Assessment and Plan: Restart home statin (5) Hypertension: Code(s): I10 - Essential (primary) hypertension Status: Chronic Assessment and Plan: Holding home antihypertensives due to severe dehydration monitor blood pressures and restart once indicated Plan Atrial flutter with RVR Now on Amiodarone infusion Discussed with cardiology as bedside Continue eliquis Cardiology following Hyponatremia currently at baseline, Na 130 Nephrology deems this as his baseline and will continue to monitor DVT prophylaxis on Eliquis Subjective Date/time seen: 11/05/24 16:11 Interval history: Comfortable at bedside Review of Systems Review of Systems: 12 systems were reviewed and are negativ e except for as per HPI. Exam Narrative: General: in mild distress due to pain, appears stated age. HEENT: normocephalic, atraumatic. Mucous membranes dry. EOMI, PERRLA, bilateral sclera anicteric, no conjunctival injection. Neck supple without JVD, lymphadenopathy, or bruit. Respiratory: clear to ascultation bilaterally. No rales/rhonic/wheezes. Cardiovascular: Regular rate and rhythm, normal S1-S2 upon ascultation. No murmurs, rubs, or clicks. PMI is nondisplaced, capillary refill less than 3 second. Abdomen: Soft, distended, tender to light palpation, guarding present. Bowel sounds present to all four quadrants. Extremities: No cyanosis, clubbing, or edema present. Pulses are palpable 2/2. Active ROM to all four extremities. Neuro: Alert and orientated x 4. PERRLA. Cranial nerves 2-12 intact without fo bladimir deficit. Skin: Warm, dry, and intact, without rash, erythema, or lesion. Psych: pleasant, cooperative, normal speech, normal affect, no hallucinations, no dysarthia Objective Data Vital Signs Vital Signs: Vital Signs - 24 hr 11/04/24 20:00 11/04/24 20:00 11/04/24 23:32 Temperature 97.4 F L Pulse Rate 76 166 H Respiratory Rate 16 Blood Pressure 164/90 H Pulse Oximetry 94 92 Oxygen Delivery Nasal Cannula Oxygen Flow Rate 2 11/04/24 23:35 11/04/24 23:51 11/05/24 00:17 Temperature 98.5 F Pulse Rate 166 H Respiratory Rate 20 Blood Pressure 151/54 H Pulse Oximetry 90 90 Oxygen Delivery Room Air Oxygen Flow Rate 11/05/24 02:02 11/05/24 03:44 11/05/24 04:35 Temperature 98.1 F 98.4 F Pulse Rate 155 H 149 H 152 H Respiratory Rate 18 16 Blood Pressure 128/69 117/65 Pulse Oximetry 92 94 Oxygen Delivery Oxygen Flow Rate 11/05/24 05:29 11/05/24 06:35 11/05/24 08:00 Temperature 97.5 F L Pulse Rate 157 H 156 H 161 H Respiratory Rate 16 Blood Pressure 110/59 L 107/53 L Pulse Oximetry 93 Oxygen Delivery Oxygen Flow Rate 11/05/24 08:00 11/05/24 08:15 11/05/24 10:22 Temperature Pulse Rate 156 H 155 H 157 H Respiratory Rate Blood Pressure 107/53 L 113/56 L Pulse Oximetry Oxygen Delivery Oxygen Flow Rate 11/05/24 11:10 11/05/24 11:18 11/05/24 11:23 Temperature Pulse Rate 155 H 157 H 116 H Respiratory Rate Blood Pressure 113/56 L Pulse Oximetry Oxygen Delivery Oxygen Flow Rate 11/05/24 11:55 11/05/24 11:55 11/05/24 12:00 Temperature 97.9 F Pulse Rate 130 H 140 H Respiratory Rate 20 Blood Pressure 114/75 Pulse Oximetry 90 90 Oxygen Delivery High Flow Nasal Cannula Oxygen Flow Rate 8 11/05/24 12:00 11/05/24 15:59 Temperature 98.4 F Pulse Rate 124 H 95 Respiratory Rate 18 Blood Pressure 149/55 H Pulse Oximetry 90 Oxygen Delivery Oxygen Flow Rate Intake/Output Intake/Output: Intake & Output 11/02/24 11/03/24 11/04/24 11/05/24 23:59 23:59 23:59 23:59 Intake Total 2020 1300 229.1 Output Total 0 650 200 Balance 2019 650 29.1 Meds/Results Medications: Active Medications Generic Name Dose Route Start Last Admin Trade Name Freq PRN Reason Stop Dose Admin Hydrocodone Bitart/Acetaminophen 1 tab 11/03/24 19:16 11/05/24 05:55 Hydrocodone/Acetaminophen (*Crx) 5-325 Mg Tablet PO 1 tab Q6H PRN Administration Pain 4-6 Alprazolam 0.25 mg 11/03/24 19:16 Alprazolam (*Crx) 0.25 Mg Tablet PO QHS PRN Anxiety Apixaban 5 mg 11/05/24 21:00 Apixaban 5 Mg Tablet PO Q12HR KEVIN Cyclosporine 1 drop 11/03/24 21:00 11/05/24 08:41 Cyclosporine 0.4 Ml Ophth Solution EACH EYE 1 drop Q12HR KEVIN Administration Diphenhydramine HCl 25 mg 11/03/24 13:10 11/04/24 21:06 Diphenhydramine Hcl Inj 50 Mg/Ml Vial IV PUSH 25 mg Q4HR PRN Administration Itching Piperacillin Sod/Tazobactam 50 mls @ 100 mls/hr 11/03/24 20:00 11/05/24 15:11 Sod 2.25 gm/ Sodium Chloride IVPB Infused Q8H KEVIN Infusion Amiodarone HCl/Dextrose 360 mg in 200 mls @ 33.333 mls/hr 11/05/24 11:20 11/05/24 11:55 Nexterone 360 Mg/D5w 200 Ml IV CONT 11/05/24 17:19 1 mg/min .Q6H ONE 33.33 mls/hr 1 MG/MIN Administration Amiodarone HCl/Dextrose 360 mg in 200 mls @ 16.667 mls/hr 11/05/24 17:20 Nexterone 360 Mg/D5w 200 Ml IV CONT .Q12H KEVIN 0.5 MG/MIN Miscellaneous Information 0 each 11/03/24 00:01 11/05/24 06:18 Terbinafine Takes For 7 Days Out Of The Month So When Is Next Dose Due??? XX 12/03/24 00:00 Not Given CLARIFY KEVIN Morphine Sulfate 2 mg 11/03/24 13:10 11/04/24 21:06 Morphine Sulfate (*Crx) 2 Mg/Ml Inj IV PUSH 2 mg Q4H PRN Administration Pain Rated 7-10 Perflutren Lipid Microsphere 0 ml 11/05/24 15:47 Perflutren Lipid Microspheres 1.5 Ml Vial Diluted To 10 Ml Total Volume IV PUSH 11/08/24 15:47 ONCE PRN adequate visualization Protocol Simvastatin 20 mg 11/04/24 09:00 11/05/24 08:40 Simvastatin 20 Mg Tablet PO 20 mg DAILY KEVIN Administration Sodium Bicarbonate 650 mg 11/05/24 17:00 Sodium Bicarbonate Tab 650 Mg Tablet PO BID KEVIN Terbinafine HCl 250 mg 11/04/24 09:00 Terbinafine Hcl 250 Mg Tablet PO DAILY KEVIN Trazodone HCl 50 mg 11/03/24 21:00 11/04/24 21:00 Trazodone Hcl 50 Mg Tablet PO Not Given QHS KEVIN Trazodone HCl 50 mg 11/05/24 14:58 Trazodone Hcl 50 Mg Tablet PO HS PRN Insomnia Radiology Results: ITS Impressions Abdomen/Pelvis CT 11/04/24 12:36 IMPRESSION: 1. No evidence of bowel perforation. 2. Persistent severe pancolitis. 3. New small scattered ascites. 4. New small pleural effusions and significant bibasilar atelectasis. Renal Ultrasound 11/04/24 19:07 Impression: Simple appearing left renal cyst. No significant medical renal disease or obstruction Chest X-Ray 11/05/24 11:19 IMPRESSION: 1. Mild bibasilar atelectasis and/or airspace disease. 2. Small pleural effusions. Abdomen X-Ray 11/05/24 16:02 Impression: 1. Findings concerning for small bowel obstruction. CT is suggested Labs Labs: Laboratory Results - last 24 hr 11/04/24 11/04/24 11/05/24 13:05 20:39 04:18 WBC 34.1 H RBC 4.16 L Hgb 13.1 Hct 38.3 MCV 92.1 MCH 31.5 MCHC 34.2 RDW 13.0 Plt Count 389 H MPV 9.8 Immature Gran % (Auto) Not Reportable Neut % (Auto) Not Reportable Lymph % (Auto) Not Reportable [place] % (Auto) Not Reportable Eos % (Auto) Not Reportable Baso % (Auto) Not Reportable Lymph # (Auto) Not Reportable [place] # (Auto) Not Reportable Eos # (Auto) Not Reportable Baso # (Auto) Not Reportable Abs Immat Gran (auto) Not Reportable Absolute Neuts (auto) Not Reportable Absolute Nucleated RBC Not Reportable Total Counted 100 Neutrophils % (Manual) 59 Band Neutrophils % 35 H Lymphocytes % (Manual) 2 L Monocytes % (Manual) 4 Nucleated RBC % Not Reportable Abs Neuts (Manual) 32.05 H Abs Lymphs (Manual) 0.68 L Abs Monocytes (Manual) 1.36 H Platelet Estimate Increased Schistocytes None seen Puncture Site ABG pH ABG pCO2 ABG pO2 ABG PO2/FiO2 Ratio ABG HCO3 ABG O2 Saturation ABG O2 Content ABG Base Excess A-a Gradient Oxyhemoglobin Total Hemoglobin O2 Delivery Device O2 Liters/Min FiO2 Sodium 127 L 130 L Potassium 5.2 H 5.0 Chloride 103 100 Carbon Dioxide 12 L 17 L Anion Gap 12 13 H BUN 45 H 52 H Creatinine 3.12 H 3.55 H Estim Creat Clear Calc 13 11 Estimated GFR 15 L 12 L Glucose 143 H 128 H Lactic Acid Calcium 7.1 L 7.3 L Total Bilirubin 1.1 AST 41 H ALT 31 Alkaline Phosphatase 107 Total Creatine Kinase 77 Troponin I 0.132 H* Total Protein 5.3 L Albumin 2.5 L U Random Total Protein 36 Ur Random Sodium 18 Ur Random Urea 419 Urine Creatinine 171.6 Protein/Creat Ratio 2 0.21 H Nasal MRSA (PCR) 11/05/24 11/05/24 11/05/24 07:05 10:23 11:26 WBC RBC Hgb Hct MCV MCH MCHC RDW Plt Count MPV Immature Gran % (Auto) Neut % (Auto) Lymph % (Auto) [place] % (Auto) Eos % (Auto) Baso % (Auto) Lymph # (Auto) [place] # (Auto) Eos # (Auto) Baso # (Auto) Abs Immat Gran (auto) Absolute Neuts (auto) Absolute Nucleated RBC Total Counted Neutrophils % (Manual) Band Neutrophils % Lymphocytes % (Manual) Monocytes % (Manual) Nucleated RBC % Abs Neuts (Manual) Abs Lymphs (Manual) Abs Monocytes (Manual) Platelet Estimate Schistocytes Puncture Site ABG pH ABG pCO2 ABG pO2 ABG PO2/FiO2 Ratio ABG HCO3 ABG O2 Saturation ABG O2 Content ABG Base Excess A-a Gradient Oxyhemoglobin Total Hemoglobin O2 Delivery Device O2 Liters/Min FiO2 Sodium Potassium Chloride Carbon Dioxide Anion Gap BUN Creatinine Estim Creat Clear Calc Estimated GFR Glucose Lactic Acid 1.8 Calcium Total Bilirubin AST ALT Alkaline Phosphatase Total Creatine Kinase Troponin I 0.196 H* D 0.251 H* D Total Protein Albumin U Random Total Protein Ur Random Sodium Ur Random Urea Urine Creatinine Protein/Creat Ratio 2 Nasal MRSA (PCR) 11/05/24 11/05/24 11:48 11:52 WBC RBC Hgb Hct MCV MCH MCHC RDW Plt Count MPV Immature Gran % (Auto) Neut % (Auto) Lymph % (Auto) [place] % (Auto) Eos % (Auto) Baso % (Auto) Lymph # (Auto) [place] # (Auto) Eos # (Auto) Baso # (Auto) Abs Immat Gran (auto) Absolute Neuts (auto) Absolute Nucleated RBC Total Counted Neutrophils % (Manual) Band Neutrophils % Lymphocytes % (Manual) Monocytes % (Manual) Nucleated RBC % Abs Neuts (Manual) Abs Lymphs (Manual) Abs Monocytes (Manual) Platelet Estimate Schistocytes Puncture Site Right brachial ABG pH 7.345 L ABG pCO2 23.6 L* ABG pO2 68.6 L ABG PO2/FiO2 Ratio 1.32 ABG HCO3 12.6 L ABG O2 Saturation 93.3 L ABG O2 Content 17.4 ABG Base Excess -11.1 A-a Gradient 275.7 Oxyhemoglobin 91.6 Total Hemoglobin 13.5 O2 Delivery Device High flow nasal mendoza O2 Liters/Min 8.0 FiO2 52 Sodium Potassium Chloride Carbon Dioxide Anion Gap BUN Creatinine Estim Creat Clear Calc Estimated GFR Glucose Lactic Acid Calcium Total Bilirubin AST ALT Alkaline Phosphatase Total Creatine Kinase Troponin I Total Protein Albumin U Random Total Protein Ur Random Sodium Ur Random Urea Urine Creatinine Protein/Creat Ratio 2 Nasal MRSA (PCR) Not detected Quality VTE Prophylaxis VTE prophylaxis: mechanical ordered and pharmacologic ordered
[2024-11-05] MEDS: SODIUM BICARBONATE TAB 650 MG TABLET PO (17:18)
[2024-11-05] MEDS: APIXABAN 5 MG TABLET PO (20:17)
--- NOTE | 2024-11-05 23:13 | PC.NURSE ---
Patient not maintaining 88% with oxygen turned up to 12L/ hi flow NC. Dr. Jordan and respiratory therapy called. Switching to vapotherm. CT of chest, ab, pelvis also reported to Dr. Jordan. is reviewing chart and assessing patient.
[2024-11-05] MEDS: FUROSEMIDE INJ 100 MG/10 ML VIAL 80 MG IV PUSH (23:42)
--- NOTE | 2024-11-05 23:54 | PC.NURSE ---
Patient maintaining 90 to91% on vapotherm at 70% and 40. Lasix administered per orders.
[2024-11-06] VITALS (30 sets, daily range): BP systolic 105–158; BP diastolic 51–95; PULSE 52–156; RESP 18–28; TEMP 36.6–36.9; O2SAT 90–97
[2024-11-06] MEDS: ALPRAZolam (*CRX) 0.25 MG TABLET PO ×2 (00:11→12:30)
[2024-11-06 00:16] LABS: Troponin I 0.310 ng/mL (0.000-0.034)
--- NOTE | 2024-11-06 02:34 | PC.NURSE ---
Dr. Jordan notified patient has only put out 150ml of urine this shift.
[2024-11-06] MEDS: PIPERACILLIN/TAZOBACTAM SOD 2.25 GM in SODIUM CHLORIDE 0.9% IV 50 ML 100 ML IVPB ×3 (03:54→20:51)
--- NOTE | 2024-11-06 03:54 | P.PNCROSS_ITS ---
Event Note Event Note Event Note: Nurse called to report the patient had increasing oxygen requirements. They pl aced her on Airvo at 70% FiO2 and 40 L per minute. This is because the patient was saturating but when asked the patient reports she does not feel too short of breath. A CT chest abdomen pelvis without contrast done this evening shows bilateral pleural effusions with small basilar infiltrates, emphysematous changes. The patient is already on Zosyn, she has a dry cough. She currently has a Holland catheter in. We discussed the risks versus benefits of Lasix. After shared decision making and considering there is no available proceduralist to perform thoracentesis we will try Lasix. Give 80 mg IV x1 in monitor urine output. Monitor kidney function. Afterwards, the patient reported no shortness of breath. She has diffuse colitis and a distended abdomen, he is having bowel movements. During my exam she had no abdominal tenderness. C diff PCR is pending.
[2024-11-06 05:59] LABS: Hematocrit 39.4 % (37.0-47.0); Hemoglobin 12.6 g/dL (12.0-15.0); Immature Granulocyte Percent A 3.5 % (0-0.5); Lymphocytes Absolute Auto 1.05 K/mm3 (0.9-3.2); Mean Corpuscular HGB Conc 32.0 g/dl (32-36); Mean Corpuscular Hemoglobin 31.5 pg (26-34); Mean Corpuscular Volume 98.5 fl (80-100); Nucleated Red Blood Cells Absolute Auto 0.020 K/mm3 (0.0-0.012); Nucleated Red Blood Cells Perc 0.1 % (0.0-0.2); Platelet Count Result 359 k/mm3 (150-375); Red Blood Count 4.00 M/mm3 (4.2-5.4); White Blood Count 28.3 K/mm3 (4.5-10.0)
[2024-11-06 06:57] LABS: Alanine Aminotransferase 31 U/L (6-35); Albumin Level 2.4 g/dL (3.5-5.1); Alkaline Phosphatase 105 U/L (38-126); Anion Gap 17 mmol/L (4-12); Aspartate Amino Transferase 44 U/L (14-36); Bilirubin,Total 1.1 mg/dL (0.2-1.3); Blood Urea Nitrogen 65 mg/dL (7-17); Calcium 7.1 mg/dL (8.4-10.2); Carbon Dioxide 10 mmol/L (22-30); Chloride 99 mmol/L (98-107); Estimated CRCL calculation 10 ml/min; Estimated Glomerular Filt Rate 11; Glucose 165 mg/dL (65-110); Magnesium 1.8 mg/dL (1.6-2.3); Potassium 5.1 mmol/L (3.4-5.0); Sodium 126 mmol/L (137-145); Total Protein 4.9 g/dL (6.3-8.2); Troponin I 0.244 ng/mL (0.000-0.034)
[2024-11-06] MEDS: APIXABAN 5 MG TABLET PO ×2 (08:33→20:51)
[2024-11-06] MEDS: SIMVASTATIN 20 MG TABLET PO (08:33)
[2024-11-06] MEDS: SODIUM BICARBONATE TAB 650 MG TABLET PO ×2 (08:34→17:13)
[2024-11-06] MEDS: VANCOMYCIN HCL 250 MG ORAL CAPSULE 500 MG PO ×3 (08:34→17:13)
[2024-11-06] MEDS: FUROSEMIDE INJ 40 MG/4 ML VIAL IV PUSH (08:35)
[2024-11-06] MEDS: cycloSPORINE 0.4 ML OPHTH SOLUTION 1 DROP EACH EYE ×2 (08:35→20:51)
[2024-11-06] MEDS: ALBUMIN HUMAN 25% 25 GM/100 ML 100 ML IVPB (08:36)
--- NOTE | 2024-11-06 09:41 | ECG_ITS ---
Test Date: 2024-11-06 09:46:29 Measurements Intervals [place] Rate: 155 P: 0 SC: 0 QRS: -37 QRSD: 80 T: 47 QT: 252 QTc: 405 Interpretive Statements ATRIAL FLUTTER/TACHYCARDIA WITH RAPID VENTRICULAR RESPONSE POSSIBLE ANTERIOR MYOCARDIAL INFARCTION [30 ms Q WAVE IN V3/V4, OR R < 0.2 mV IN V4], PROBABLY OLD ST DEPRESSION, CONSIDER SUBENDOCARDIAL INJURY [0.1+ mV ST DEPRESSION] WARNING: DATA QUALITY MAY AFFECT INTERPRETATION Compared to ECG 11/05/2024 06:26:27 Myocardial infarct finding now present ST (T wave) deviation now present Electronically Signed On 11-06-2024 14:34:12 CDT by Brandon Mathews M.D.
[2024-11-06] MEDS: METOPROLOL TARTRATE INJ 5 MG/5 ML VIAL 2.5 MG IV PUSH ×2 (09:57→11:53)
[2024-11-06] MEDS: DIGOXIN INJ 250 MCG/ML 2 ML AMP (*BKC) IV PUSH (10:43)
--- NOTE | 2024-11-06 10:45 | P.PNNP_ITS ---
Progress Note: A&P Assessment and Plan (1) Acute kidney injury: Code(s): N17.9 - Acute kidney failure, unspecified Status: Acute Assessment and Plan: * ongoing worsening noted * as noted by admission labs (creatinine of 3.03mg/dL) * creatinine normal 2 days prior to admission * baseline creatinine runs ~ 0.9 - 1.1mg/dL * suspect multifactorial etiology: * prerenal factors * infection/early sepsis (diverticulitis/colitis) * contrast exposure (CT of A/P on 11/01) * relative hypotension on presentation * JAMIE-I/diuretic use prior to admission * urinary retention(?) - difficulty urinating on admission so gamble catheter placed * other (?) * off IVFs due to concerns for volume overload * evaluation to date noted: * renal ultrasound without obstruction * urine electrolytes prerenal * urine eosinophils negative * CPK normal * mild proteinuria * holding lisinopril and spironolactone * remains at risk for SH[employer] WORK[employer]/hemodialysis * still somewhat reponsive to diuretic therapy * follow trend of repeat labs and UOP (2) Pancolitis: Code(s): K52.9 - Noninfective gastroenteritis and colitis, unspecified Status: Acute Assessment and Plan: * as noted by CT imaging to date: * CT of C/A/P (11/05): Diffuse colitis detailed above, correlate for underlying pseudomembranous colitis. No perforation or abscess * CT of A/P (11/04): No evidence of bowel perforation; persistent severe pancolitis * CT of A/P (11/03): Interval progression of radiographically uncomplicated selby colitis which could be infectious, inflammatory or less likely ischemic in etiology * CT of A/P (11/01): Sigmoid diverticulitis. No perforation or abscess * follow culture data * follow trend of WBC * on antibiotics (3) Acute hypoxic respiratory failure: Code(s): J96.01 - Acute respiratory failure with hypoxia Status: Acute Assessment and Plan: * worsening since admission * multifactorial etiology: * bilateral pleural effusions * atelectasis * fluid overload * atrial flutter with rapid ventricular response * pancolitis * possible pneumonia * diuresis as tolerated * antibiotics for possible pneumonia * follow respirator status (4) Metabolic acidosis: Code(s): E87.20 - Acidosis, unspecified Status: Acute Assessment and Plan: * due to DONOVAN/ARF and GI symptoms * fluctuating lactic acid levels noted * bicarb IVFs not being given due to concerns about fluid overload * on oral sodium bicarbonate * follow repeat labs (5) Hyponatremia: Code(s): E87.1 - Hypo-osmolality and hyponatremia Status: Acute Assessment and Plan: * as noted on admission * possible chronic component -- sodium seems to run 129 - 136mmol/L since 2021 * presumably worsen by DONOVAN/ARF and prerenal factors * mild improvement s/p IVF resuscitation * follow trend of sodium (6) Atrial flutter: Code(s): I48.92 - Unspecified atrial flutter Status: Acute Assessment and Plan: * as noted by events early on 11/05 * Cardiology recommendations noted * on IV amiodarone * on heparin gtt for anticoagulation * holding Eliquis * check Echo (7) Hypertension: Code(s): I10 - Essential (primary) hypertension Status: Chronic Assessment and Plan: * reasonable control * holding JAMIE-I and diuretics due to #1 * however, may need further diuresis given #3 * follow trend of hemodynamics Will continue to follow. Subjective Date/time seen: 11/06/24 10:45 Interval history: Follow-up for acute kidney injury/acute renal failure. Worsening hypoxia earlier this morning requiring Airvo to maintain oxygenation; imaging done yesterday evening CT C/A/P with findings of CHF and pleural effusions as suspected reason for hypoxia -- given IV lasix in an effort to optimize fluid status/breathing; she appears more comfortable when seen; better urine output noted with diuretic therapy but at the expense of renal function as noted by worsening creatinine by AM labs; discussed case with family at bedside. Exam Narrative: General: elderly but WD/WN female in NAD Heart: tachycardic, normal S1 and S2; no rub Lungs: coarse and decreased at bases Abdomen: soft, mild distension with +TTP, positive bowel sounds Extremities: no cyanosis or clubbing; no edema Skin: warm and dry Objective Data Vital Signs Vital Signs: Vital Signs Temp Pulse Resp BP Pulse Ox O2 Del Method O2 Flow Rate 11/06/24 10:43 128 H 11/06/24 10:00 150 H 154/95 H 11/06/24 10:00 152 H 11/06/24 09:57 153 H 11/06/24 09:55 150 H 22 H 154/95 H 92 11/06/24 08:00 98 158/68 H 11/06/24 08:00 93 11/06/24 08:00 98 F 92 18 158/68 H 96 11/06/24 07:35 94 20 92 High Flow Therapy with Na 40 11/06/24 06:50 91 11/06/24 06:00 91 140/53 L 11/06/24 06:00 97.9 F 95 20 140/53 L 96 11/06/24 05:00 91 145/65 H 11/06/24 04:30 91 11/06/24 04:29 91 20 90 High Flow Therapy with Na 40 11/06/24 04:00 97.8 F 91 20 145/65 H 94 11/06/24 04:00 91 11/06/24 04:00 91 High Flow Therapy with Na 40 11/06/24 03:51 90 11/06/24 03:51 90 11/06/24 02:49 93 116/56 L 11/06/24 02:00 90 11/06/24 02:00 98.1 F 93 18 116/56 L 97 11/06/24 01:37 90 20 93 High Flow Therapy with Na 40 11/06/24 00:46 96 140/51 L 11/06/24 00:00 96 11/06/24 00:00 98.4 F 96 20 140/51 L 90 11/05/24 23:58 90 High Flow Therapy with Na 40 11/05/24 23:17 97 20 91 High Flow Therapy with Na 40 11/05/24 22:00 95 116/47 L 11/05/24 21:05 78 90 High Flow Nasal Cannula 8 11/05/24 20:00 78 145/55 H 11/05/24 20:00 98 11/05/24 20:00 98.7 F 98 22 H 145/55 H 91 11/05/24 19:58 90 High Flow Nasal Cannula 8 Intake/Output Intake/Output: Intake & Output 11/03/24 11/04/24 11/05/24 11/06/24 23:59 23:59 23:59 23:59 Intake Total 2019 1300 306.9 531.8 Output Total 0 787 453 0297 Balance 2019 650 -493.1 -868.2 Meds/Results Medications: Active Medications Generic Name Dose Route Start Last Admin Trade Name Freq PRN Reason Stop Dose Admin Acetaminophen 650 mg 11/06/24 12:18 11/06/24 12:29 Acetaminophen 325 Mg Tablet PO 650 mg Q4H PRN Administration Headache Alprazolam 0.25 mg 11/03/24 19:16 11/06/24 00:11 Alprazolam (*Crx) 0.25 Mg Tablet PO 0.25 mg QHS PRN Administration Anxiety Apixaban 5 mg 11/05/24 21:00 11/06/24 08:33 Apixaban 5 Mg Tablet PO 5 mg Q12HR KEVIN Administration Cyclosporine 1 drop 11/03/24 21:00 11/06/24 08:35 Cyclosporine 0.4 Ml Ophth Solution EACH EYE 1 drop Q12HR KEVIN Administration Digoxin 250 mcg 11/06/24 10:45 11/06/24 10:43 Digoxin Inj 250 Mcg/Ml 2 Ml Amp (*Bkc) IV PUSH 250 mcg DAILY KEVIN Administration Piperacillin Sod/Tazobactam 50 mls @ 100 mls/hr 11/03/24 20:00 11/06/24 12:30 Sod 2.25 gm/ Sodium Chloride IVPB 100 mls/hr Q8H KEVIN Administration Amiodarone HCl/Dextrose 360 mg in 200 mls @ 16.667 mls/hr 11/05/24 17:20 11/06/24 14:39 Nexterone 360 Mg/D5w 200 Ml IV CONT 0.5 mg/min .Q12H KEVIN 16.67 mls/hr 0.5 MG/MIN Administration Miscellaneous Information 0 each 11/03/24 00:01 11/05/24 06:18 Terbinafine Takes For 7 Days Out Of The Month So When Is Next Dose Due??? XX 12/03/24 00:00 Not Given CLARIFY KEVIN Perflutren Lipid Microsphere 0 ml 11/05/24 15:47 Perflutren Lipid Microspheres 1.5 Ml Vial Diluted To 10 Ml Total Volume IV PUSH 11/08/24 15:47 ONCE PRN adequate visualization Protocol Simvastatin 20 mg 11/04/24 09:00 11/06/24 08:33 Simvastatin 20 Mg Tablet PO 20 mg DAILY KEVIN Administration Sodium Bicarbonate 650 mg 11/05/24 17:00 11/06/24 17:13 Sodium Bicarbonate Tab 650 Mg Tablet PO 650 mg BID KEVIN Administration Sodium Chloride 10 ml 11/06/24 22:00 Central Line Flush IV PUSH Q8HR KEVIN Sodium Chloride 10 ml 11/06/24 14:29 Central Line Flush IV PUSH PRN PRN with TPN bag changes Sodium Chloride 20 ml 11/06/24 14:29 Central Line Flush IV PUSH PRN PRN after blood draws Terbinafine HCl 250 mg 11/04/24 09:00 Terbinafine Hcl 250 Mg Tablet PO DAILY KEVIN Trazodone HCl 50 mg 11/03/24 21:00 11/05/24 20:17 Trazodone Hcl 50 Mg Tablet PO 50 mg QHS KEVIN Administration Vancomycin HCl 500 mg 11/06/24 08:15 11/06/24 17:13 Vancomycin Hcl 250 Mg Oral Capsule PO 500 mg Q6HR KEVIN Administration Radiology Results: ITS Impressions Abdomen/Pelvis CT 11/04/24 12:36 IMPRESSION: 1. No evidence of bowel perforation. 2. Persistent severe pancolitis. 3. New small scattered ascites. 4. New small pleural effusions and significant bibasilar atelectasis. Renal Ultrasound 11/04/24 19:07 Impression: Simple appearing left renal cyst. No significant medical renal disease or obstruction Abdomen X-Ray 11/05/24 16:02 Impression: 1. Findings concerning for small bowel obstruction. CT is suggested Chest/Abdomen/Pelvis CT 11/05/24 17:04 IMPRESSION: 1. Diffuse colitis detailed above, correlate for underlying pseudomembranous colitis. No perforation or abscess. Follow-up recommended to assess. 2. CHF with superimposed probable bronchopneumonia. 3. Incidental findings above. Contrast-enhanced MRI recommended Labs Labs: Laboratory Tests 11/06/24 05:28 WBC 28.3 H Hgb 12.6 Hct 39.4 Plt Count 359 Sodium 126 L Potassium 5.1 H Chloride 99 Carbon Dioxide 10 L Anion Gap 17 H BUN 65 H D Creatinine 3.95 H Estim Creat Clear Calc 10 Estimated GFR 11 L Glucose 165 H Lactic Acid 2.7 H Calcium 7.1 L Phosphorus 6.6 H Magnesium 1.8 Total Bilirubin 1.1 AST 44 H ALT 31 Alkaline Phosphatase 105 Troponin I 0.244 H* Total Protein 4.9 L Albumin 2.4 L Microbiology 11/06/24 15:18 Urine - Unspecified Urine Microbiology Comment - Final Not Reportable 11/03/24 14:38 Blood Blood Culture - Preliminary 11/03/24 14:47 Blood Blood Culture - Preliminary
[2024-11-06 11:32] LABS: INR 2.0; Prothrombin Time 22.6 Seconds (11.1-14.7)
--- NOTE | 2024-11-06 11:40 | ECG_ITS ---
Test Date: 2024-11-06 11:41:02 Measurements Intervals [place] Rate: 151 P: 0 PA: 0 QRS: -39 QRSD: 77 T: 28 QT: 194 QTc: 308 Interpretive Statements ATRIAL FLUTTER/TACHYCARDIA WITH RAPID VENTRICULAR RESPONSE POOR R-WAVE PROGRESSION NONSPECIFIC ST SEGMENT ABNORMALITY ABNORMAL ECG Compared to ECG 11/06/2024 09:46:29 No significant changes Electronically Signed On 11-07-2024 12:07:43 CDT by Cale Romano M.D.
[2024-11-06 11:47] LABS: Alanine Aminotransferase 31 U/L (6-35); Albumin Level 3.1 g/dL (3.5-5.1); Alkaline Phosphatase 123 U/L (38-126); Anion Gap 14 mmol/L (4-12); Aspartate Amino Transferase 81 U/L (14-36); Bilirubin,Total 1.1 mg/dL (0.2-1.3); Blood Urea Nitrogen 67 mg/dL (7-17); Calcium 7.1 mg/dL (8.4-10.2); Carbon Dioxide 17 mmol/L (22-30); Chloride 95 mmol/L (98-107); Estimated CRCL calculation 10 ml/min; Estimated Glomerular Filt Rate 10; Glucose 160 mg/dL (65-110); Potassium 4.3 mmol/L (3.4-5.0); Sodium 126 mmol/L (137-145); Total Protein 5.6 g/dL (6.3-8.2)
[2024-11-06] MEDS: METOPROLOL TARTRATE INJ 5 MG/5 ML VIAL (11:48)
--- NOTE | 2024-11-06 11:56 | P.PNIM_ITS ---
Progress Note: A&P Assessment and Plan (1) Colitis: Code(s): K52.9 - Noninfective gastroenteritis and colitis, unspecified Status: Acute Assessment and Plan: Abb Xray this morning suggestive of SBO CT AP stat showed Pseudomembranous colitis COntinue ZOsyn and PO vancomycin 500 Po q6 monitor leukocytosis, WBC 28 today monitor closely (2) Acute kidney injury: Code(s): N17.9 - Acute kidney failure, unspecified Status: Acute Assessment and Plan: Infection vs Contrast related injury vs prerenal BMP in the morning Continue to monitor urine output patient received IV contrast on 11/01/2024, prior to this study her BUN and creatinine were normal Nephrology following and i discussed plan of care with him (3) Anxiety: Code(s): F41.9 - Anxiety disorder, unspecified Status: Acute Assessment and Plan: Restart home Xanax (4) Hyperlipidemia: Qualifiers: Hyperlipidemia type: unspecified Qualified Code(s): E78.5 - Hyperlipidemia, unspecified Code(s): E78.5 - Hyperlipidemia, unspecified Status: Acute Assessment and Plan: Restart home statin (5) Hypertension: Code(s): I10 - Essential (primary) hypertension Status: Chronic Assessment and Plan: Holding home antihypertensives due to severe dehydration monitor blood pressures and restart once indicated Plan Atrial flutter with RVR Now on Amiodarone infusion adn Digoxin Monitor HR ELiquis on hold for possible thoracentesis tomorrow Cardiology following Pseudomembranous colitis Continue PO Vancomycin and Zosyn gentle rehydration monitor Hyponatremia Na 126 will restart IVF pending clinical course Acute hypoxemic respiratory failure From fluid overload vs pneumonia r/o CHF ECHO from 10/08 normal left ventricular function CT chest showed bilateral pleural effusion with possibel consolidation Contienu Zosyn, follow up cultures Thoracentesis ordered, ABg and repeat CXR ordered Discussed with pulmonology Dr Liu and DVT prophylaxis on SCDs, Eliquis on hold Subjective Date/time seen: 11/06/24 11:56 Interval history: Comfortable at bedside Review of Systems Review of Systems: 12 systems were reviewed and are negativ e except for as per HPI. Exam Narrative: General: in mild distress due to pain, appears stated age. HEENT: normocephalic, atraumatic. Mucous membranes dry. EOMI, PERRLA, bilateral sclera anicteric, no conjunctival injection. Neck supple without JVD, lymphadenopathy, or bruit. Respiratory: clear to ascultation bilaterally. No rales/rhonic/wheezes. Cardiovascular: Regular rate and rhythm, normal S1-S2 upon ascultation. No murmurs, rubs, or clicks. PMI is nondisplaced, capillary refill less than 3 second. Abdomen: Soft, distended, tender to light palpation, guarding present. Bowel sounds present to all four quadrants. Extremities: No cyanosis, clubbing, or edema present. Pulses are palpable 2/2. Active ROM to all four extremities. Neuro: Alert and orientated x 4. PERRLA. Cranial nerves 2-12 intact without focal deficit. Skin: Warm, dry, and intact, without rash, erythema, or lesion. Psych: pleasant, cooperative, normal speech, normal affect, no hallucinations, no dysarthia Objective Data Vital Signs Vital Signs: Vital Signs - 24 hr 11/05/24 12:00 11/05/24 12:00 11/05/24 15:59 Temperature 97.9 F 98.4 F Pulse Rate 140 H 124 H 95 Respiratory Rate 20 18 Blood Pressure 114/75 149/55 H Pulse Oximetry 90 90 Oxygen Delivery Oxygen Flow Rate Fraction of Inspired Oxygen 11/05/24 16:00 11/05/24 17:20 11/05/24 18:00 Temperature Pulse Rate 95 99 100 Respiratory Rate Blood Pressure 152/52 H 150/95 H Pulse Oximetry 90 Oxygen Delivery Oxygen Flow Rate Fraction of Inspired Oxygen 11/05/24 19:58 11/05/24 20:00 11/05/24 20:00 Temperature 98.7 F Pulse Rate 98 98 Respiratory Rate 22 H Blood Pressure 145/55 H Pulse Oximetry 90 91 Oxygen Delivery High Flow Nasal Cannula Oxygen Flow Rate 8 Fraction of Inspired Oxygen 11/05/24 20:00 11/05/24 21:05 11/05/24 22:00 Temperature Pulse Rate 78 78 95 Respiratory Rate Blood Pressure 145/55 H 116/47 L Pulse Oximetry 90 Oxygen Delivery High Flow Nasal Cannula Oxygen Flow Rate 8 Fraction of Inspired Oxygen 11/05/24 23:17 11/05/24 23:58 11/06/24 00:00 Temperature 98.4 F Pulse Rate 97 96 Respiratory Rate 20 20 Blood Pressure 140/51 L Pulse Oximetry 91 90 90 Oxygen Delivery High Flow Therapy with Na High Flow Therapy with Na Oxygen Flow Rate 40 40 Fraction of Inspired Oxygen 70 70 11/06/24 00:00 11/06/24 00:46 11/06/24 01:37 Temperature Pulse Rate 96 96 90 Respiratory Rate 20 Blood Pressure 140/51 L Pulse Oximetry 93 Oxygen Delivery High Flow Therapy with Na Oxygen Flow Rate 40 Fraction of Inspired Oxygen 70 11/06/24 02:00 11/06/24 02:00 11/06/24 02:49 Temperature 98.1 F Pulse Rate 93 90 93 Respiratory Rate 18 Blood Pressure 116/56 L 116/56 L Pulse Oximetry 97 Oxygen Delivery Oxygen Flow Rate Fraction of Inspired Oxygen 11/06/24 03:51 11/06/24 03:51 11/06/24 04:00 Temperature Pulse Rate 90 90 Respiratory Rate Blood Pressure Pulse Oximetry 91 Oxygen Delivery High Flow Therapy with Na Oxygen Flow Rate 40 Fraction of Inspired Oxygen 70 11/06/24 04:00 11/06/24 04:00 11/06/24 04:29 Temperature 97.8 F Pulse Rate 91 91 91 Respiratory Rate 20 20 Blood Pressure 145/65 H Pulse Oximetry 94 90 Oxygen Delivery High Flow Therapy with Na Oxygen Flow Rate 40 Fraction of Inspired Oxygen 70 11/06/24 04:30 11/06/24 05:00 11/06/24 06:00 Temperature 97.9 F Pulse Rate 91 91 95 Respiratory Rate 20 Blood Pressure 145/65 H 140/53 L Pulse Oximetry 96 Oxygen Delivery Oxygen Flow Rate Fraction of Inspired Oxygen 11/06/24 06:00 11/06/24 06:50 11/06/24 07:35 Temperature Pulse Rate 91 91 94 Respiratory Rate 20 Blood Pressure 140/53 L Pulse Oximetry 92 Oxygen Delivery High Flow Therapy with Na Oxygen Flow Rate 40 Fraction of Inspired Oxygen 70 11/06/24 08:00 11/06/24 09:55 11/06/24 09:57 Temperature 98 F Pulse Rate 92 153 H Respiratory Rate 18 Blood Pressure 158/68 H 154/95 H Pulse Oximetry 96 Oxygen Delivery Oxygen Flow Rate Fraction of Inspired Oxygen 11/06/24 10:43 11/06/24 11:48 Temperature Pulse Rate 128 H 153 H Respiratory Rate Blood Pressure Pulse Oximetry Oxygen Delivery Oxygen Flow Rate Fraction of Inspired Oxygen Intake/Output Intake/Output: Intake & Output 11/03/24 11/04/24 11/05/24 11/06/24 23:59 23:59 23:59 23:59 Intake Total 2019 1300 306.9 403.3 Output Total 0 650 800 400 Balance 2019 650 -493.1 3.3 Meds/Results Medications: Active Medications Generic Name Dose Route Start Last Admin Trade Name Freq PRN Reason Stop Dose Admin Alprazolam 0.25 mg 11/03/24 19:16 11/06/24 00:11 Alprazolam (*Crx) 0.25 Mg Tablet PO 0.25 mg QHS PRN Administration Anxiety Apixaban 5 mg 11/05/24 21:00 11/06/24 08:33 Apixaban 5 Mg Tablet PO 5 mg Q12HR KEVIN Administration Cyclosporine 1 drop 11/03/24 21:00 11/06/24 08:35 Cyclosporine 0.4 Ml Ophth Solution EACH EYE 1 drop Q12HR KEVIN Administration Digoxin 250 mcg 11/06/24 10:45 11/06/24 10:43 Digoxin Inj 250 Mcg/Ml 2 Ml Amp (*Bkc) IV PUSH 250 mcg DAILY KEVIN Administration Piperacillin Sod/Tazobactam 50 mls @ 100 mls/hr 11/03/24 20:00 11/06/24 03:54 Sod 2.25 gm/ Sodium Chloride IVPB 100 mls/hr Q8H KEVIN Administration Amiodarone HCl/Dextrose 360 mg in 200 mls @ 16.667 mls/hr 11/05/24 17:20 11/06/24 06:00 Nexterone 360 Mg/D5w 200 Ml IV CONT 0.5 mg/min .Q12H KEVIN 16.67 mls/hr 0.5 MG/MIN Infusion Lidocaine HCl 5 ml 11/06/24 11:52 Lidocaine 1% Pf Inj 5 Ml Vial INFILTRATE 11/06/24 11:53 ONCE ONE Miscellaneous Information 0 each 11/03/24 00:01 11/05/24 06:18 Terbinafine Takes For 7 Days Out Of The Month So When Is Next Dose Due??? XX 12/03/24 00:00 Not Given CLARIFY KEVIN Perflutren Lipid Microsphere 0 ml 11/05/24 15:47 Perflutren Lipid Microspheres 1.5 Ml Vial Diluted To 10 Ml Total Volume IV PUSH 11/08/24 15:47 ONCE PRN adequate visualization Protocol Simvastatin 20 mg 11/04/24 09:00 11/06/24 08:33 Simvastatin 20 Mg Tablet PO 20 mg DAILY KEVIN Administration Sodium Bicarbonate 650 mg 11/05/24 17:00 11/06/24 08:34 Sodium Bicarbonate Tab 650 Mg Tablet PO 650 mg BID KEVIN Administration Terbinafine HCl 250 mg 11/04/24 09:00 Terbinafine Hcl 250 Mg Tablet PO DAILY KEVIN Trazodone HCl 50 mg 11/03/24 21:00 11/05/24 20:17 Trazodone Hcl 50 Mg Tablet PO 50 mg QHS KEVIN Administration Vancomycin HCl 500 mg 11/06/24 08:15 11/06/24 08:34 Vancomycin Hcl 250 Mg Oral Capsule PO 500 mg Q6HR KEVIN Administration Radiology Results: ITS Impressions Abdomen/Pelvis CT 11/04/24 12:36 IMPRESSION: 1. No evidence of bowel perforation. 2. Persistent severe pancolitis. 3. New small scattered ascites. 4. New small pleural effusions and significant bibasilar atelectasis. Renal Ultrasound 11/04/24 19:07 Impression: Simple appearing left renal cyst. No significant medical renal disease or obstruction Abdomen X-Ray 11/05/24 16:02 Impression: 1. Findings concerning for small bowel obstruction. CT is suggested Chest/Abdomen/Pelvis CT 11/05/24 17:04 IMPRESSION: 1. Diffuse colitis detailed above, correlate for underlying pseudomembranous colitis. No perforation or abscess. Follow-up recommended to assess. 2. CHF with superimposed probable bronchopneumonia. 3. Incidental findings above. Contrast-enhanced MRI recommended Labs Labs: Laboratory Results - last 24 hr 11/05/24 11/05/24 11/05/24 11:26 11:48 11:52 WBC RBC Hgb Hct MCV MCH MCHC RDW Plt Count MPV Immature Gran % (Auto) Neut % (Auto) Lymph % (Auto) [place] % (Auto) Eos % (Auto) Baso % (Auto) Lymph # (Auto) [place] # (Auto) Eos # (Auto) Baso # (Auto) Abs Immat Gran (auto) Absolute Neuts (auto) Absolute Nucleated RBC Nucleated RBC % PT INR Puncture Site Right brachial ABG pH 7.345 L ABG pCO2 23.6 L* ABG pO2 68.6 L ABG PO2/FiO2 Ratio 1.32 ABG HCO3 12.6 L ABG O2 Saturation 93.3 L ABG O2 Content 17.4 ABG Base Excess -11.1 A-a Gradient 275.7 Oxyhemoglobin 91.6 Total Hemoglobin 13.5 O2 Delivery Device High flow nasal mendoza O2 Liters/Min 8.0 FiO2 52 Sodium Potassium Chloride Carbon Dioxide Anion Gap BUN Creatinine Estim Creat Clear Calc Estimated GFR Glucose Lactic Acid 1.8 Calcium Phosphorus Magnesium Total Bilirubin AST ALT Alkaline Phosphatase Lactate Dehydrogenase Troponin I Total Protein Albumin Nasal MRSA (PCR) Not detected 11/05/24 11/06/24 11/06/24 23:42 05:28 08:19 WBC 28.3 H RBC 4.00 L Hgb 12.6 Hct 39.4 MCV 98.5 D MCH 31.5 MCHC 32.0 RDW 13.2 Plt Count 359 MPV 9.7 Immature Gran % (Auto) 3.5 H Neut % (Auto) 87.5 H Lymph % (Auto) 3.7 L [place] % (Auto) 5.2 Eos % (Auto) 0.1 Baso % (Auto) 0.0 L Lymph # (Auto) 1.05 [place] # (Auto) 1.5 H Eos # (Auto) 0.0 Baso # (Auto) 0.0 Abs Immat Gran (auto) 0.99 H Absolute Neuts (auto) 24.7 H Absolute Nucleated RBC 0.020 H Nucleated RBC % 0.1 PT INR Puncture Site ABG pH ABG pCO2 ABG pO2 ABG PO2/FiO2 Ratio ABG HCO3 ABG O2 Saturation ABG O2 Content ABG Base Excess A-a Gradient Oxyhemoglobin Total Hemoglobin O2 Delivery Device O2 Liters/Min FiO2 Sodium 126 L Potassium 5.1 H Chloride 99 Carbon Dioxide 10 L Anion Gap 17 H BUN 65 H D Creatinine 3.95 H Estim Creat Clear Calc 10 Estimated GFR 11 L Glucose 165 H Lactic Acid 2.7 H 2.1 H Calcium 7.1 L Phosphorus 6.6 H Magnesium 1.8 Total Bilirubin 1.1 AST 44 H ALT 31 Alkaline Phosphatase 105 Lactate Dehydrogenase Troponin I 0.310 H* 0.244 H* D Total Protein 4.9 L Albumin 2.4 L Nasal MRSA (PCR) 11/06/24 11:15 WBC RBC Hgb Hct MCV MCH MCHC RDW Plt Count MPV Immature Gran % (Auto) Neut % (Auto) Lymph % (Auto) [place] % (Auto) Eos % (Auto) Baso % (Auto) Lymph # (Auto) [place] # (Auto) Eos # (Auto) Baso # (Auto) Abs Immat Gran (auto) Absolute Neuts (auto) Absolute Nucleated RBC Nucleated RBC % PT 22.6 H INR 2.0 Puncture Site ABG pH ABG pCO2 ABG pO2 ABG PO2/FiO2 Ratio ABG HCO3 ABG O2 Saturation ABG O2 Content ABG Base Excess A-a Gradient Oxyhemoglobin Total Hemoglobin O2 Delivery Device O2 Liters/Min FiO2 Sodium 126 L Potassium 4.3 Chloride 95 L Carbon Dioxide 17 L Anion Gap 14 H BUN 67 H Creatinine 4.18 H Estim Creat Clear Calc 10 Estimated GFR 10 L Glucose 160 H Lactic Acid Calcium 7.1 L Phosphorus Magnesium Total Bilirubin 1.1 AST 81 H ALT 31 Alkaline Phosphatase 123 Lactate Dehydrogenase 268 H Troponin I Total Protein 5.6 L Albumin 3.1 L Nasal MRSA (PCR) Quality VTE Prophylaxis VTE prophylaxis: mechanical ordered and pharmacologic ordered
--- NOTE | 2024-11-06 12:12 | PCOTNOTE ---
Patient is unable to participate in OT therapy services this date, Per RN, Patient is having increased heart rates, on Vapo-therm.
[2024-11-06] MEDS: ACETAMINOPHEN 325 MG TABLET 650 MG PO (12:29)
--- NOTE | 2024-11-06 12:53 | PCNFU ---
Nutrition Follow-Up Complete: Inadequate oral intake related to altered GI function as evidenced by diverticulitis Diet advancement - Slow progress with goal. Continue same goals Improve PO intake when diet advanced - Continue with goal Goal: Pt current nutrition is Clear liquids. Nutrition recommendation: Advance diet as medically able. Last recorded weight is 69.9 kg. Bowel Motility: +3 BMs 11/05 Labs Reviewed: Alb 2.4, Na 126, K+ 5.1, BUN 65, Cre 3.95, Glu 165 Meds Noted: Eliquis Skin: No pressure Additional Notes: Pt continues with pancolitis. Clear liquids today. Continue to monitor for advancement. Monitoring diet orders, weights, labs, plan of care Follow up in 3 days
[2024-11-06] MEDS: LIDOCAINE 1% PF INJ 5 ML VIAL INFILTRATE (13:40)
--- NOTE | 2024-11-06 13:54 | PM.CNPUL ---
Assessment and Plan Assessment and plan (1) Respiratory failure with hypoxia: Code(s): J96.91 - Respiratory failure, unspecified with hypoxia Status: Acute Assessment and Plan: Patient on no previous oxygen. She presented on 11/01 and 11/03 to the ER with colitis and had room air saturations on 11/03 of 97%. She has progressive worsening oxygenation along with her acute renal failure, development of bilateral pleural effusions and is now requiring Airvo 40 L and 70% FiO2. of note ABG on 11/05/2024 on 8 L nasal cannula with a pH of 7.35/24/69. Etiology of patient's hypoxemic respiratory failure includes: Bilateral pleural effusions with adjacent atelectasis, fluid overload, atrial flutter with rapid ventricular response, pancolitis, and possible pneumonia. 11/06/24: Plan: Agree with as aggressive diuresis as tolerated by her cardiac and renal systems. Since patient is now requiring nares are recommend thoracentesis which hopefully can be performed on 11/07/2024 as she received apixaban 5 mg on 11/06 at 8:33 a.m.. Low clinical suspicion for bacterial pneumonia and agree with Zosyn for her pancolitis, day 3 today. I will send respiratory pathogen panel, urine for Legionella, urine for pneumococcal and serum mycoplasma IgM. I will initiate the patient on EzPAP for her bilateral atelectasis. Currently the patient has minimal shortness of breath but should she develop worsening work of breathing would initiate noninvasive ventilation with the AVAPS mode, rate 14, tidal volume 500, EPAP 5, minimum inspiratory pressure 6, maximal inspiratory pressure 25 and FiO2 to maintain saturations 90-94%. Discussed with patient, niece in the room and Dr. Domínguez. Will follow with you. History of Present Illness History of Present Illness Consult date: 11/06/24 Chief complaint: colitis/ridge Narrative: 11/06/2024: This is a new pulmonary consult for hypoxemic respiratory failure 78-year-old with a history of hypertension. Patient denies a history of asthma, COPD, recurrent pneumonias. She is not on any oxygen at home and checks her pulse oximetry at home and it has been 95-98%. Patient is a never smoker but was exposed to secondhand smoke from her father, from her 1st and 2nd from 1969 to 1985. 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 After 1985 she worked in a [employer]. She denies sand blasting, welding, asbestos were, professional painting, construction work, coal mining or quarry work. Patient noticed that 2 years she developed dyspnea on exertion. Two years ago she could walk 3/4 of a block. 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 11/01 patient presented to the emergency department with abdominal pain and Room air saturations were 98%. CT scan of the abdomen showed diverticulitis with no abscess. Her white blood cell count was 12.8. Her creatinine was 0.99. She was discharged on Augmentin. 11/03/2024 patient presented to the emergency room with abdominal pain. Her blood pressure is 128/49, heart rate 87, respirations 26, room air saturations 97%. White blood cell count was 21.8, creatinine was 3.03, bands were 20%. Lipase less than 10. CT scan of the abdomen showed progression of her pancolitis with no pleural effusions. Patient was started on Zosyn. 11/04/2024: At 8:00 p.m. she required 2 L nasal cannula saturations 92%. Patient developed atrial flutter treated with diltiazem. 11/05/2024 CT scan chest abdomen and pelvis showed moderate bilateral pleural effusions with atelectasis. At 11:45 a.m. she required 8 L nasal cannula saturations 90%. ABG on 8 L nasal cannula 7.35/24/69. At 9:00 p.m. she required 8 L with saturations 90%. At 11:00 p.m. she required Airvo 40 L and 70% with saturations 90%. Cardiology consulted and patient initiated on amiodarone and diltiazem discontinued. 11/06/2024: The patient tells me today that her shortness of breath is at her baseline and this is the same as yesterday. She developed a cough today with no phlegm and no hemoptysis. She denies fever. She tells me her abdominal pain is better today than yesterday. She has had flatus today. Earlier today she received IV metoprolol and IV digoxin for atrial flutter with fast heart rate. Currently her heart rate is 149 and regular and she is being restarted on amiodarone drip. Patient remains on Airvo 40 L, 70% FiO2 with saturations 92%. Her white blood cell count is 28.3, creatinine is 4.18. Chest x-ray today compared with 11/04/2024 shows decreased lung volumes with small bilateral pleural effusions with bibasilar infiltrates. DATA: 11/06/24: EXAMINATION: XR chest 1V portable DATE: 11/06/2024 11:34 INDICATION: Respiratory failure TECHNIQUE: frontal view of the chest was obtained. COMPARISON: Chest radiograph dated 11/04/[address] dated 11/05/2024 FINDINGS: Lung volumes are small, unchanged on the left and with interval progression of volume loss on the right. Airspace opacity at the bilateral lower lung zones with blunting at the costophrenic angles consistent with small bilateral pleural effusions and associated atelectasis and/or pneumonia. No pneumothorax or evident pulmonary edema. Heart size is normal. There is ostial fold thickening along the visualized ascending and transverse colon suggestive of colitis. IMPRESSION: 1. Decreased lung volumes with small bilateral pleural effusions and associated bibasilar atelectasis and/or pneumonia. 2. Haustral fold thickening along the visualized colon suspicious for colitis. 11/05/2024: EXAMINATION: CT chest abdomen pelvis wo con, 11/05/2024 16:20 CDT HISTORY: SBO COMPARISON: No comparisons available. FINDINGS: CT chest: No significant coronary calcification is present ([id number]) LUNGS: No tracheomalacia. No bronchiectasis. Moderate to large simple appearing bilateral pleural effusions with small basilar infiltrates. Minimal emphysematous changes. HEART AND PERICARDIUM: Mild cardiomegaly. No pericardial effusion. AORTA: Atherosclerotic changes of the aorta. MEDIASTINUM: Unremarkable. THYROID: The thyroid is unremarkable. CT abdomen: LIVER: Mild cirrhotic disease of the liver suspected. SPLEEN: Mild atrophy of the spleen.. KIDNEYS: Right Kidney: Right kidney mild hydronephrosis, no hydroureter. Left Kidney: Left kidney large simple appearing peripelvic renal cyst 5 x 6 cm. ADRENAL GLANDS: Unremarkable. PANCREAS: Moderate atrophy of the pancreas. Cystic pancreatic lesion of the body 1.5 x 1.6 cm incompletely evaluated, contrast-enhanced MRI recommended. GALLBLADDER/BILIARY: Mild distention of the gallbladder. STOMACH AND ESOPHAGUS: The stomach is decompressed. BOWEL/MESENTERY: Multiple fluid-filled loops of large bowel which appears thickened, absence of contrast limits evaluation. There is pericolonic stranding noted but no gross perforation or abscess, no pneumatosis. Appendix appears minimally thickened but there is no periappendiceal inflammation. Stranding throughout the visualized remaining mesentery. Nonspecific fluid-filled loops of small bowel, no dilated small bowel loops. RETROPERITONEUM: Unremarkable AORTA/VASCULATURE: Normal caliber aorta. FREE FLUID OR FREE AIR: Large amount of free fluid throughout the abdomen and pelvis. Small amount of free fluid in the presacral space.. CT pelvis: SOLID ORGANS/REPRODUCTIVE: Unremarkable. BLADDER: Bladder decompressed. LYMPHADENOPATHY: No lymphadenopathy. OSSEOUS STRUCTURES: No acute osseous abnormality.No suspicious lesions. OVERLYING SOFT TISSUES: Holland catheter in the bladder. IMPRESSION: 1. Diffuse colitis detailed above, correlate for underlying pseudomembranous colitis. No perforation or abscess. Follow-up recommended to assess. 2. CHF with superimposed probable bronchopneumonia. 3. Incidental findings above. Contrast-enhanced MRI recommended Review of Systems Constitutional: Constitutional: Reports no additional constitutional complaints Eyes: Eyes: Reports no additional eye complaints ENT: Reports system reviewed and no additional complaints, except as documented Cardiovascular: Cardiovascular: Reports no additional cardiovascular complaints Respiratory: Respiratory: Reports no additional respiratory complaints Gastrointestinal: Gastrointestinal: Reports no additional gastrointestinal complaints Musculoskeletal: Musculoskeletal: Reports no additional musculoskeletal complaints Neurologic: Reports system reviewed and no additional complaints, except as documented Psychiatric: Psychiatric: Reports no additional psychiatric complaints Endocrine: Endocrine: Reports no additional endocrine complaints Hematologic/Lymphatic: Hematologic/Lymphatic: Reports no additional hematologic/lymphatic complaints Allergic/Immunologic: Allergic/Immunologic: Reports no additional allergic/immunologic complaints [facility] Past Medical History Medical History (Updated 11/06/24 @ 14:04 by Cale Liu MD) Anxiety Hyperlipidemia BMI 25.0-25.9,adult Hypertension Family History Family History Father Hypertension Cerebrovascular accident Mother Heart disease Sibling Diabetes mellitus Sibling Diabetes mellitus Social History Social History Smoking status: Never smoker Second hand tobacco smoke exposure: No Alcohol intake: current Substance use: never Substance use type: does not use Lack of Transportation: No Lack of Food: Never True Current Housing: I Have Housing Concerned About Future Housing: No Difficulty Paying Gas/Electric Bills: No Difficulty Paying for Meds: No Currently Unemployed: No Education: High School Diploma/GED Difficulty w/ Childcare or Family Care: No Living arrangements: with family 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 Gender identity (if verbalized by the patient): Female Spiritual care concerns: No Meds Home Medications and Allergies Home Medications ?Medication ?Instructions ?Recorded ?Confirmed ?Type cyclosporine 0.05 % eye drops 1 drp EACH EYE Q12H #5.5 mL 03/18/21 11/03/24 Rx (Restasis MultiDose) terbinafine HCl 250 mg tablet 250 mg PO DAILY 09/03/23 11/03/24 History simvastatin 20 mg tablet (Zocor) 20 mg PO DAILY #90 tabs 04/12/24 11/03/24 Rx amlodipine 10 mg tablet 10 mg PO DAILY #90 tabs 05/16/24 11/03/24 Rx trazodone 50 mg tablet 50 mg PO QHS #90 tabs 05/16/24 11/03/24 Rx spironolactone 50 mg tablet See Rx Instructions .Route 08/07/24 11/03/24 Rx .COMPLEX #90 tabs alprazolam 0.25 mg tablet 0.25 mg PO QHS PRN anxiety #90 tabs 09/26/24 11/03/24 Rx lisinopril 40 mg tablet 40 mg PO DAILY #90 tabs 10/01/24 11/03/24 Rx amoxicillin 875 mg-potassium 1 tablet PO Q12H #14 tabs 11/01/24 11/03/24 Rx clavulanate 125 mg tablet hydrocodone 5 mg-acetaminophen 325 1 tablet PO Q6H PRN pain #12 tabs 11/01/24 11/03/24 Rx mg tablet ondansetron 4 mg disintegrating 4 mg PO Q6H PRN nausea and 11/01/24 11/03/24 Rx tablet vomiting #10 tabs Allergies Allergy/AdvReac Type Severity Reaction Status Date / Time morphine Allergy Itching Verified 11/01/24 11:35 Vital Signs Vital Signs - 24 hr 11/05/24 15:59 11/05/24 16:00 11/05/24 17:20 Temperature 36.9 C Pulse Rate 95 95 99 Respiratory Rate 18 Blood Pressure 149/55 H 152/52 H Pulse Oximetry 90 Oxygen Delivery Oxygen Flow Rate Fraction of Inspired Oxygen 11/05/24 18:00 11/05/24 19:58 11/05/24 20:00 Temperature 37.1 C Pulse Rate 100 98 Respiratory Rate 22 H Blood Pressure 150/95 H 145/55 H Pulse Oximetry 90 90 91 Oxygen Delivery High Flow Nasal Cannula Oxygen Flow Rate 8 Fraction of Inspired Oxygen 11/05/24 20:00 11/05/24 20:00 11/05/24 21:05 Temperature Pulse Rate 98 78 78 Respiratory Rate Blood Pressure 145/55 H Pulse Oximetry 90 Oxygen Delivery High Flow Nasal Cannula Oxygen Flow Rate 8 Fraction of Inspired Oxygen 11/05/24 22:00 11/05/24 23:17 11/05/24 23:58 Temperature Pulse Rate 95 97 Respiratory Rate 20 Blood Pressure 116/47 L Pulse Oximetry 91 90 Oxygen Delivery High Flow Therapy with Na High Flow Therapy with Na Oxygen Flow Rate 40 40 Fraction of Inspired Oxygen 70 70 11/06/24 00:00 11/06/24 00:00 11/06/24 00:46 Temperature 36.9 C Pulse Rate 96 96 96 Respiratory Rate 20 Blood Pressure 140/51 L 140/51 L Pulse Oximetry 90 Oxygen Delivery Oxygen Flow Rate Fraction of Inspired Oxygen 11/06/24 01:37 11/06/24 02:00 11/06/24 02:00 Temperature 36.7 C Pulse Rate 90 93 90 Respiratory Rate 20 18 Blood Pressure 116/56 L Pulse Oximetry 93 97 Oxygen Delivery High Flow Therapy with Na Oxygen Flow Rate 40 Fraction of Inspired Oxygen 70 11/06/24 02:49 11/06/24 03:51 11/06/24 03:51 Temperature Pulse Rate 93 90 90 Respiratory Rate Blood Pressure 116/56 L Pulse Oximetry Oxygen Delivery Oxygen Flow Rate Fraction of Inspired Oxygen 11/06/24 04:00 11/06/24 04:00 11/06/24 04:00 Temperature 36.6 C Pulse Rate 91 91 Respiratory Rate 20 Blood Pressure 145/65 H Pulse Oximetry 91 94 Oxygen Delivery High Flow Therapy with Na Oxygen Flow Rate 40 Fraction of Inspired Oxygen 70 11/06/24 04:29 11/06/24 04:30 11/06/24 05:00 Temperature Pulse Rate 91 91 91 Respiratory Rate 20 Blood Pressure 145/65 H Pulse Oximetry 90 Oxygen Delivery High Flow Therapy with Na Oxygen Flow Rate 40 Fraction of Inspired Oxygen 70 11/06/24 06:00 11/06/24 06:00 11/06/24 06:50 Temperature 36.6 C Pulse Rate 95 91 91 Respiratory Rate 20 Blood Pressure 140/53 L 140/53 L Pulse Oximetry 96 Oxygen Delivery Oxygen Flow Rate Fraction of Inspired Oxygen 11/06/24 07:35 11/06/24 08:00 11/06/24 08:00 Temperature 36.6 C Pulse Rate 94 92 93 Respiratory Rate 20 18 Blood Pressure 158/68 H Pulse Oximetry 92 96 Oxygen Delivery High Flow Therapy with Na Oxygen Flow Rate 40 Fraction of Inspired Oxygen 70 11/06/24 09:55 11/06/24 09:57 11/06/24 10:00 Temperature Pulse Rate 150 H 153 H 152 H Respiratory Rate 22 H Blood Pressure 154/95 H Pulse Oximetry 92 Oxygen Delivery Oxygen Flow Rate Fraction of Inspired Oxygen 11/06/24 10:43 11/06/24 11:48 11/06/24 11:50 Temperature Pulse Rate 128 H 153 H 149 H Respiratory Rate 20 Blood Pressure Pulse Oximetry 92 Oxygen Delivery High Flow Therapy with Na Oxygen Flow Rate 40 Fraction of Inspired Oxygen 70 11/06/24 12:00 11/06/24 12:00 11/06/24 12:48 Temperature 36.8 C Pulse Rate 144 H 52 L 149 H Respiratory Rate 28 H 20 Blood Pressure 151/89 H Pulse Oximetry 93 92 Oxygen Delivery High Flow Therapy with Na Oxygen Flow Rate 40 Fraction of Inspired Oxygen 70 Exam Const: General: cooperative, healthy appearing and comfortable Orientation/consciousness: oriented to person, oriented to place and oriented to time Other: No respiratory distress HENMT: Head: normal to inspection Ears: hearing grossly normal bilaterally Eyes: General: appearance normal, both eyes and all related structures Neck: Neck: normal visual inspection Chest: Chest palpation & inspection: normal inspection of the chest Resp: Effort & Inspection: normal respiratory effort and able to speak in complete sentences Auscultation: no crackles, no rales, no rhonchi, no wheezes and diminished lung sounds Other: decreased breath sounds at the bases. Cardio: Jugular venous distension: no JVD Other: Heart rate 150 GI: Inspection: normal to inspection GI Palp: Yes abdominal tenderness and Yes Tenderness to palpation present (GI) Other: distended, decreased bowel sounds. Tender to light palpation. Skin: General skin exam: normal color Neuro: General: oriented to person, oriented to place and oriented to time Extrem: General: normal to inspection Other: No edema Psych: Appearance: grossly normal Results Laboratory Findings 11/06/24 05:28 11/06/24 11:15 ABG, PT/INR, D-dimer: ABG ABG pH 7.345 (7.350-7.450) L 11/05/24 11:52 ABG pCO2 23.6 mmHg (35.0-45.0) L* 11/05/24 11:52 ABG pO2 68.6 mmHg (80.0-100.0) L 11/05/24 11:52 ABG O2 Saturation 93.3 % (95.0-100.0) L 11/05/24 11:52 PT/INR, D-dimer PT 22.6 Seconds (11.1-14.7) H 11/06/24 11:15 INR 2.0 11/06/24 11:15 Abnormal lab findings: Abnormal Labs 11/03/24 11/03/24 11/04/24 11:19 23:33 04:54 WBC 21.8 H 28.1 H RBC 3.91 L Hct 36.2 L Plt Count Immature Gran % (Auto) 1.4 H Neut % (Auto) 87.1 H Lymph % (Auto) 4.3 L Baso % (Auto) 0.1 L [place] # (Auto) 2.0 H Abs Immat Gran (auto) 0.39 H Absolute Neuts (auto) 24.4 H Absolute Nucleated RBC Neutrophils % (Manual) 75 H Band Neutrophils % 20 H 14 H Lymphocytes % (Manual) 4 L 6.0 L Abs Neuts (Manual) 20.05 H 25.00 H Abs Lymphs (Manual) 0.87 L Abs Monocytes (Manual) 1.40 H PT ABG pH ABG pCO2 ABG pO2 ABG HCO3 ABG O2 Saturation Sodium 123 L 123 L Potassium Chloride 91 L Carbon Dioxide 17 L 12 L Anion Gap 15 H BUN 31 H D 36 H Creatinine 3.03 H 2.68 H Estimated GFR 15 L 17 L Glucose 241 H 157 H Lactic Acid Calcium 7.9 L 7.3 L Phosphorus AST Lactate Dehydrogenase Troponin I Total Protein Albumin Lipase < 10 L Urine Appearance Cloudy H Urine Protein 2+ H Urine Ketones Trace H Urine Bilirubin 1+ H Leukocyte Esterase Rfl Trace H Protein/Creat Ratio 2 11/04/24 11/04/24 11/05/24 13:05 20:39 04:18 WBC 34.1 H RBC 4.16 L Hct Plt Count 389 H Immature Gran % (Auto) Neut % (Auto) Lymph % (Auto) Baso % (Auto) [place] # (Auto) Abs Immat Gran (auto) Absolute Neuts (auto) Absolute Nucleated RBC Neutrophils % (Manual) Band Neutrophils % 35 H Lymphocytes % (Manual) 2 L Abs Neuts (Manual) 32.05 H Abs Lymphs (Manual) 0.68 L Abs Monocytes (Manual) 1.36 H PT ABG pH ABG pCO2 ABG pO2 ABG HCO3 ABG O2 Saturation Sodium 127 L 130 L Potassium 5.2 H Chloride Carbon Dioxide 12 L 17 L Anion Gap 13 H BUN 45 H 52 H Creatinine 3.12 H 3.55 H Estimated GFR 15 L 12 L Glucose 143 H 128 H Lactic Acid Calcium 7.1 L 7.3 L Phosphorus AST 41 H Lactate Dehydrogenase Troponin I 0.132 H* Total Protein 5.3 L Albumin 2.5 L Lipase Urine Appearance Urine Protein Urine Ketones Urine Bilirubin Leukocyte Esterase Rfl Protein/Creat Ratio 2 0.21 H 11/05/24 11/05/24 11/05/24 07:05 10:23 11:52 WBC RBC Hct Plt Count Immature Gran % (Auto) Neut % (Auto) Lymph % (Auto) Baso % (Auto) [place] # (Auto) Abs Immat Gran (auto) Absolute Neuts (auto) Absolute Nucleated RBC Neutrophils % (Manual) Band Neutrophils % Lymphocytes % (Manual) Abs Neuts (Manual) Abs Lymphs (Manual) Abs Monocytes (Manual) PT ABG pH 7.345 L ABG pCO2 23.6 L* ABG pO2 68.6 L ABG HCO3 12.6 L ABG O2 Saturation 93.3 L Sodium Potassium Chloride Carbon Dioxide Anion Gap BUN Creatinine Estimated GFR Glucose Lactic Acid Calcium Phosphorus AST Lactate Dehydrogenase Troponin I 0.196 H* D 0.251 H* D Total Protein Albumin Lipase Urine Appearance Urine Protein Urine Ketones Urine Bilirubin Leukocyte Esterase Rfl Protein/Creat Ratio 2 11/05/24 11/06/24 11/06/24 23:42 05:28 08:19 WBC 28.3 H RBC 4.00 L Hct Plt Count Immature Gran % (Auto) 3.5 H Neut % (Auto) 87.5 H Lymph % (Auto) 3.7 L Baso % (Auto) 0.0 L [place] # (Auto) 1.5 H Abs Immat Gran (auto) 0.99 H Absolute Neuts (auto) 24.7 H Absolute Nucleated RBC 0.020 H Neutrophils % (Manual) Band Neutrophils % Lymphocytes % (Manual) Abs Neuts (Manual) Abs Lymphs (Manual) Abs Monocytes (Manual) PT ABG pH ABG pCO2 ABG pO2 ABG HCO3 ABG O2 Saturation Sodium 126 L Potassium 5.1 H Chloride Carbon Dioxide 10 L Anion Gap 17 H BUN 65 H D Creatinine 3.95 H Estimated GFR 11 L Glucose 165 H Lactic Acid 2.7 H 2.1 H Calcium 7.1 L Phosphorus 6.6 H AST 44 H Lactate Dehydrogenase Troponin I 0.310 H* 0.244 H* D Total Protein 4.9 L Albumin 2.4 L Lipase Urine Appearance Urine Protein Urine Ketones Urine Bilirubin Leukocyte Esterase Rfl Protein/Creat Ratio 2 11/06/24 11:15 WBC RBC Hct Plt Count Immature Gran % (Auto) Neut % (Auto) Lymph % (Auto) Baso % (Auto) [place] # (Auto) Abs Immat Gran (auto) Absolute Neuts (auto) Absolute Nucleated RBC Neutrophils % (Manual) Band Neutrophils % Lymphocytes % (Manual) Abs Neuts (Manual) Abs Lymphs (Manual) Abs Monocytes (Manual) PT 22.6 H ABG pH ABG pCO2 ABG pO2 ABG HCO3 ABG O2 Saturation Sodium 126 L Potassium Chloride 95 L Carbon Dioxide 17 L Anion Gap 14 H BUN 67 H Creatinine 4.18 H Estimated GFR 10 L Glucose 160 H Lactic Acid Calcium 7.1 L Phosphorus AST 81 H Lactate Dehydrogenase 268 H Troponin I Total Protein 5.6 L Albumin 3.1 L Lipase Urine Appearance Urine Protein Urine Ketones Urine Bilirubin Leukocyte Esterase Rfl Protein/Creat Ratio 2 Diagnostic Findings Additional studies: ITS Impressions Abdomen/Pelvis CT 11/03/24 12:27 IMPRESSION: 1. Interval progression of radiographically uncomplicated selby colitis which could be infectious, inflammatory or less likely ischemic in etiology. Abdomen/Pelvis CT 11/04/24 12:36 IMPRESSION: 1. No evidence of bowel perforation. 2. Persistent severe pancolitis. 3. New small scattered ascites. 4. New small pleural effusions and significant bibasilar atelectasis. Renal Ultrasound 11/04/24 19:07 Impression: Simple appearing left renal cyst. No significant medical renal disease or obstruction Chest X-Ray 11/05/24 11:19 IMPRESSION: 1. Mild bibasilar atelectasis and/or airspace disease. 2. Small pleural effusions. Abdomen X-Ray 11/05/24 16:02 Impression: 1. Findings concerning for small bowel obstruction. CT is suggested Chest/Abdomen/Pelvis CT 11/05/24 17:04 IMPRESSION: 1. Diffuse colitis detailed above, correlate for underlying pseudomembranous colitis. No perforation or abscess. Follow-up recommended to assess. 2. CHF with superimposed probable bronchopneumonia. 3. Incidental findings above. Contrast-enhanced MRI recommended Chest X-Ray 11/06/24 12:01 IMPRESSION: 1. Decreased lung volumes with small bilateral pleural effusions and associated bibasilar atelectasis and/or pneumonia. 2. Haustral fold thickening along the visualized colon suspicious for colitis. Head CT 11/06/24 12:46 Impression: 1.No acute intracranial abnormality.
--- NOTE | 2024-11-06 16:15 | PC.NURSE ---
At approximately 0938 patient heart rate increased to 150s sustained. Called aerospace engineer application architect manager and left message. A couple of minutes later this RN was informed that the aerospace engineer was on the floor. ECG obtained stat, given to aerospace engineer for review and vital signs obtained at this time. BP was noted to be in the 150s systolic (See Vital sign flow sheet). Instructed to give IV Metoprolol (see eMAR for dose amount). IV medications given as ordered and vital signs obtained afterwards. Systolic blood pressure remained elevated 150s. The patient did not convert, HR remained elevated, and aerospace engineer ordered a one time dose of Digoxin to be given at this time (see eMAR for time and dose). Digoxin was given, HR 130-150s, and dropped to 76. BP remained elevated 161/71, 171/55, and 159/61. Orders given to stop the amiodarone at this time. At approximately 1140am, patients heart rate increased to 150s again. Special Weapons Unit Officer notified of increased heart rate, ordered to give a second dose of Metoprolol (see eMAR). This medication dose was given as ordered. Blood pressure remained elevated in the 150s systolic. At 1315pm this RN called the aerospace engineer again to update her that the patients heart rate remains elevated after the second dose of Metoprolol, orders given to restart Amiodarone (see eMAR). at 1628, aerospace engineer is on the floor at this time. Updated her that the patient's heart rate remains elevated at this time. Amiodarone has been infusing for approximately 2 hours (see eMAR for time), with no change in heart rate. Verbalized understanding at this time. Discussed plan of care again. Plan to have a CYNTHIA with Cardioversion tomorrow and will look at medications tomorrow to determine further plan for possible Digoxin and Metoprolol. This RN verbalizes understanding at this time.
--- NOTE | 2024-11-06 16:33 | PC.NURSE ---
At approximately 1020am this RN and investigative writer (Dr Claudio), discussed placing patient back on Heparin drip. Because patient received a dose of Eliquis (see eMAR), investigative writer states It is ok to start Heparin drip tomorrow after the thoracentesis and hold Eliquis at this time.
[2024-11-06 16:41] LABS: NT Pro B Type Natriuretic Pept 3410 pg/mL (19.9-100)
[2024-11-06 16:49] LABS: Procalcitonin 4.9 ng/mL
[2024-11-06 16:50] LABS: CRP 16.2 mg/dL (<1.0)
[2024-11-06] MEDS: CENTRAL LINE FLUSH 10 ML IV PUSH (20:52)
[2024-11-07] VITALS (28 sets, daily range): BP systolic 129–160; BP diastolic 53–65; PULSE 73–101; RESP 18–23; TEMP 36.3–36.6; O2SAT 90–98
--- NOTE | 2024-11-07 | ECHO_ITS ---
Patient Info Name: Berenice Alex Age: 78 years : 1945 Gender: Female Ht: 62 in Wt: 154 lbs BSA: 1.77 m2 HR: 98 bpm BP: 160 / 58 mmHg Heart Rhythm: Sinus Rhythm Technical Quality: Fair Exam Date: 11/06/2024 2:39 PM Patient Status: I Admit Date: 11/03/2024 Exam Type: CA echo dop color flow w con Complete two-dimensional, color flow and Doppler transthoracic echocardiogram is performed with contrast to opacify the left ventricle and to improve the deliniation of the left ventricle endocardial borders. Staff Referring Physician: Isabell Domíngeuz [place] Man: Bob Quijano III Attending Provider: Isabell Domínguez Contrast/Agitated Saline Contrast/Ag. Saline: Definity Amount: 2.00 ml Administered By: Bob Quijano III Existing IV Access: Yes IV Access Condition: patent with no signs of infiltration Summary 1. Concentric left ventricular hypertrophy with hyperdynamic systolic function, near 0 bladder a jones of LV cavity in end systole. 2. Grade 1 diastolic noncompliance. 3. Sclerosis of the aortic valve with well maintained leaflet excursion. Left Ventricle Left ventricular chamber dimension is normal. Left ventricular systolic function is hyperdynamic, estimated at >70. There is mild concentric increased left ventricular wall thickness. The left ventricular diastolic function is grade I diastolic dysfunction. Right Ventricle Right ventricular chamber dimension is normal. Left Atria Left atrial chamber dimension is normal. Right Atria Right atrial chamber dimension is normal. Aortic Valve The aortic valve is trileaflet. There is mild aortic valve sclerosis. There is no aortic valve stenosis. Pulmonic Valve The pulmonic valve is not well visualized. Mitral Valve The mitral valve has normal leaflets. The mitral valve annulus is mildly calcified. Tricuspid Valve The tricuspid valve leaflets are normal. There is mild tricuspid valve regurgitation. Pericardium/Pleural The pericardium appears normal. Aorta The aortic root size at the sinus of Valsalva is normal. Left Ventricular Outflow Tract Name Value Normal LVOT 2D LVOT Diameter 2.0 cm LVOT Doppler LVOT Peak Velocity 101 cm/s LVOT Peak Gradient 4 mmHg LVOT Mean Gradient 2 mmHg LVOT VTI 21 cm LVOT VTI/AV VTI Ratio 0.8 LVOT Stroke Volume 65 ml LVOT CO 13.9 l/min LVOT CI 7.9 l/min/m2 Pulmonic Valve Name Value Normal PV Doppler PV Peak Velocity 104 cm/s PV Peak Gradient 4 mmHg PV Mean Gradient 2 mmHg Mitral Valve Name Value Normal MV Doppler MV Peak Gradient 4 mmHg MV Mean Gradient 1 mmHg MV Area (Cont Eq VTI) 3.3 cm2 MV Diastolic Function MV E Peak Velocity 51 cm/s MV A Peak Velocity 85 cm/s MV E/A 0.6 MV Decel Time (PW) 395 ms MV Annular TDI MV E/e' (Septal) 6.2 MV E/e' (Lateral) 5.1 MV E/e' (Average) 5.7 Tricuspid Valve Name Value Normal TV Regurgitation Doppler TR Peak Velocity 278 cm/s TR Peak Gradient 30 mmHg Estimated PAP/RSVP RA Pressure 10 mmHg <=5 PA Systolic Pressure 41 mmHg <36 RV Systolic Pressure 41 mmHg <36 TV Annular TDI TV Lateral Alida s' Velocity 18.8 cm/s >=9.5 Aortic Valve Name Value Normal AV Doppler AV Peak Velocity 154 cm/s AV Peak Gradient 9 mmHg AV Mean Gradient 5 mmHg AV VTI 25 cm AV Area (Cont Eq VTI) 2.6 cm2 >=3.0 AV Area (Cont Eq Kedar) 2.1 cm2 AV DI (Kedar) 0.66 AV Regurgitation 2D LVOT Area 3.2 cm2 Ventricles Name Value Normal LV Dimensions 2D/MM IVS Diastolic Thickness (2D) 1.3 cm 0.6-1.0 LVID Diastole (2D) 2.9 cm 3.8-5.2 LVIW Diastolic Thickness (2D) 1.2 cm 0.6-0.9 LVID Systole (2D) 1.9 cm 2.2-3.5 LVOT Diameter 2.0 cm LV Mass (2D Cubed) 105.95 g 67.00-162.00 LV Mass Index (2D Cubed) 60 g/m2 43-95 Relative Wall Thickness (2D) 0.83 <=0.42 LV Fractional Shortening/Ejection Fraction 2D/MM LV Fractional Shortening (2D) 34 % 27-45 LV EF (2D Teichholz) 65 % Atria Name Value Normal LA Dimensions LA Volume (4C A-L) 34 ml LA Volume (BP A-L) 41 ml RA Dimensions RA Systolic Major Agency Length (4C) 5.1 cm 2.2-2.8 RA Area (4C) 12.0 cm2 <=18.0 Report Signatures
[2024-11-07] MEDS: VANCOMYCIN HCL 250 MG ORAL CAPSULE 500 MG PO ×5 (00:06→23:37)
--- NOTE | 2024-11-07 03:16 | PCRCNOTE ---
Patient seen for initial EZPAP Therapy; not completed due to being busy with other staff.
[2024-11-07] MEDS: PIPERACILLIN/TAZOBACTAM SOD 2.25 GM in SODIUM CHLORIDE 0.9% IV 50 ML 100 ML IVPB ×3 (04:39→20:30)
[2024-11-07 04:53] LABS: Hematocrit 33.0 % (37.0-47.0); Hemoglobin 11.6 g/dL (12.0-15.0); Immature Granulocyte Percent A 4.5 % (0-0.5); Lymphocytes Absolute Auto 1.15 K/mm3 (0.9-3.2); Mean Corpuscular HGB Conc 35.2 g/dl (32-36); Mean Corpuscular Hemoglobin 31.4 pg (26-34); Mean Corpuscular Volume 89.2 fl (80-100); Nucleated Red Blood Cells Absolute Auto 0.000 K/mm3 (0.0-0.012); Nucleated Red Blood Cells Perc 0.0 % (0.0-0.2); Platelet Count Result 370 k/mm3 (150-375); Red Blood Count 3.70 M/mm3 (4.2-5.4); White Blood Count 18.5 K/mm3 (4.5-10.0)
[2024-11-07 05:18] LABS: Total Protein 5.0 g/dL (6.3-8.2)
[2024-11-07 05:19] LABS: Alanine Aminotransferase 29 U/L (6-35); Albumin Level 2.6 g/dL (3.5-5.1); Alkaline Phosphatase 114 U/L (38-126); Anion Gap 15 mmol/L (4-12); Aspartate Amino Transferase 63 U/L (14-36); Bilirubin,Total 0.7 mg/dL (0.2-1.3); Blood Urea Nitrogen 69 mg/dL (7-17); Calcium 6.6 mg/dL (8.4-10.2); Carbon Dioxide 17 mmol/L (22-30); Chloride 92 mmol/L (98-107); Estimated CRCL calculation 10 ml/min; Estimated Glomerular Filt Rate 11; Glucose 196 mg/dL (65-110); Magnesium 1.7 mg/dL (1.6-2.3); Potassium 3.9 mmol/L (3.4-5.0); Sodium 124 mmol/L (137-145); Total Protein 5.0 g/dL (6.3-8.2)
[2024-11-07 05:23] LABS: INR 2.1; Prothrombin Time 23.6 Seconds (11.1-14.7)
[2024-11-07 05:24] LABS: Partial Thromboplastin Time 37.1 Seconds (22.3-36.8)
[2024-11-07 05:45] LABS: Hepatitis B Surface Antigen Negative (Negative)
[2024-11-07] MEDS: ACETAMINOPHEN 325 MG TABLET 650 MG PO (05:56)
[2024-11-07] MEDS: CENTRAL LINE FLUSH 10 ML IV PUSH ×3 (05:57→21:14)
[2024-11-07 06:14] LABS: Hepatitis B Surface Anti Res Positive
--- NOTE | 2024-11-07 07:43 | P.PNIM_ITS ---
Progress Note: A&P Assessment and Plan (1) Colitis: Code(s): K52.9 - Noninfective gastroenteritis and colitis, unspecified Status: Acute Assessment and Plan: According to the patient, she was completely healthy until last Wednesday. On 11/01/2024, the patient started with abdominal pain, came to the ED, and was diagnosed with diverticulitis and discharged with outpatient antibiotics. On , the patient began to decline and returned on Wednesday. The patient was admitted in the setting of colitis. The patient had multiple episodes of diarrhea. Patient has a new onset of pleural effusion, AFib with RVR, and DONOVAN. Currently, Eliquis is on hold for a possible thoracentesis scheduled for tomorrow. Patient cardioversion has been canceled due to sinus rhythm. Patient is presently on amiodarone drip and metoprolol 25 mg p.o. q.8 hours and digoxin 250 mcg IV q.d.. Patient is currently on Zosyn and oral vancomycin for colitis and possible C diff. The patient's C. diff was not tested, but her WBC has been trending down. Abd Xray this morning suggestive of SBO CT AP stat showed Pseudomembranous colitis Continue ZOsyn and PO vancomycin 500 Po q6 monitor leukocytosis, and WBC monitor closely (2) Acute kidney injury: Code(s): N17.9 - Acute kidney failure, unspecified Status: Acute Assessment and Plan: Infection vs Contrast related injury vs prerenal BMP in the morning Continue to monitor urine output patient received IV contrast on 11/01/2024, prior to this study her BUN and creatinine were normal Nephrology following (3) Anxiety: Code(s): F41.9 - Anxiety disorder, unspecified Status: Acute Assessment and Plan: Restart home Xanax (4) Hyperlipidemia: Qualifiers: Hyperlipidemia type: unspecified Qualified Code(s): E78.5 - Hyperlipide deondre, unspecified Code(s): E78.5 - Hyperlipidemia, unspecified Status: Acute Assessment and Plan: Restart home statin (5) Hypertension: Code(s): I10 - Essential (primary) hypertension Status: Chronic Assessment and Plan: Holding home antihypertensives due to severe dehydration monitor blood pressures and restart once indicated Plan Atrial flutter with RVR Now on Amiodarone, metoprolol and Digoxin Monitor HR ELiquis on hold for possible thoracentesis tomorrow Cardiology following Pseudomembranous colitis Continue PO Vancomycin and Zosyn gentle rehydration monitor Hyponatremia Na 126 will restart IVF pending clinical course Acute hypoxemic respiratory failure From fluid overload vs pneumonia r/o CHF ECHO from 10/08 normal left ventricular function CT chest showed bilateral pleural effusion with possibel consolidation Continue Zosyn, follow up cultures Thoracentesis ordered, ABg and repeat CXR ordered Discussed with pulmonology Dr Liu and DVT prophylaxis on SCDs, Priscila on hold Subjective Date/time seen: 11/07/24 07:43 Interval history: According to the patient, she was completely healthy until last Wednesday. On 11/01/2024, the patient started with abdominal pain, came to the ED, and was diagnosed with diverticulitis and discharged with outpatient antibiotics. On , the patient began to decline and returned on Wednesday. The patient was admitted in the setting of colitis. The patient had multiple episodes of diarrhea. Patient has a new onset of pleural effusion, AFib with RVR, and DONOVAN. Currently, Priscila is on hold for a possible thoracentesis scheduled for [facility]. Patient cardioversion has been canceled due to sinus rhythm. Patient is presently on amiodarone drip and metoprolol 25 mg p.o. q.8 hours and digoxin 250 mcg IV q.d.. Patient is currently on Zosyn and oral vancomycin for colitis and possible C diff. The patient's C. diff was not tested, but her WBC has been trending down. Review of Systems Review of Systems: 12 systems were reviewed and are negativ e except for as per HPI. Exam Narrative: General: in mild distress due to pain, appears stated age. HEENT: normocephalic, atraumatic. Mucous membranes dry. EOMI, PERRLA, bilateral sclera anicteric, no conjunctival injection. Neck supple without JVD, lymphadenopathy, or bruit. Respiratory: clear to ascultation bilaterally. No rales/rhonic/wheezes. Cardiovascular: Regular rate and rhythm, normal S1-S2 upon ascultation. No murmurs, rubs, or clicks. PMI is nondisplaced, capillary refill less than 3 second. Abdomen: Soft, distended, tender to light palpation, guarding present. Bowel sounds present to all four quadrants. Extremities: No cyanosis, clubbing, or edema present. Pulses are palpable 2/2. Active ROM to all four extremities. Neuro: Alert and orientated x 4. PERRLA. Cranial nerves 2-12 intact without focal deficit. Skin: Warm, dry, and intact, without rash, erythema, or lesion. Psych: pleasant, cooperative, normal speech, normal affect, no hallucinations, no dysarthia Objective Data Vital Signs Vital Signs: Vital Signs - 24 hr 11/06/24 08:00 11/06/24 08:00 11/06/24 08:00 Temperature 98 F Pulse Rate 92 93 98 Respiratory Rate 18 Blood Pressure 158/68 H 158/68 H Pulse Oximetry 96 Oxygen Delivery Oxygen Flow Rate Fraction of Inspired Oxygen 11/06/24 09:55 11/06/24 09:57 11/06/24 10:00 Temperature Pulse Rate 150 H 153 H 152 H Respiratory Rate 22 H Blood Pressure 154/95 H Pulse Oximetry 92 Oxygen Delivery Oxygen Flow Rate Fraction of Inspired Oxygen 11/06/24 10:00 11/06/24 10:43 11/06/24 10:43 Temperature Pulse Rate 150 H 128 H 81 Respiratory Rate Blood Pressure 154/95 H Pulse Oximetry Oxygen Delivery Oxygen Flow Rate Fraction of Inspired Oxygen 11/06/24 11:48 11/06/24 11:50 11/06/24 11:53 Temperature Pulse Rate 153 H 149 H 153 H Respiratory Rate 20 Blood Pressure Pulse Oximetry 92 Oxygen Delivery High Flow Therapy with Na Oxygen Flow Rate 40 Fraction of Inspired Oxygen 70 11/06/24 12:00 11/06/24 12:00 11/06/24 12:00 Temperature 98.3 F Pulse Rate 144 H 52 L 152 H Respiratory Rate 28 H Blood Pressure 151/89 H 151/89 H Pulse Oximetry 93 Oxygen Delivery Oxygen Flow Rate Fraction of Inspired Oxygen 11/06/24 12:48 11/06/24 14:00 11/06/24 14:00 Temperature Pulse Rate 149 H 151 H 152 H Respiratory Rate 20 Blood Pressure Pulse Oximetry 92 Oxygen Delivery High Flow Therapy with Na Oxygen Flow Rate 40 Fraction of Inspired Oxygen 70 11/06/24 14:39 11/06/24 14:39 11/06/24 16:00 Temperature 97.8 F Pulse Rate 151 H 151 H 149 H Respiratory Rate 26 H Blood Pressure 116/57 L Pulse Oximetry 93 Oxygen Delivery Oxygen Flow Rate Fraction of Inspired Oxygen 11/06/24 16:00 11/06/24 16:00 11/06/24 18:00 Temperature 98.0 F Pulse Rate 150 H 149 H 151 H Respiratory Rate 24 H Blood Pressure 116/57 L 111/67 Pulse Oximetry 95 Oxygen Delivery Oxygen Flow Rate Fraction of Inspired Oxygen 11/06/24 18:00 11/06/24 18:00 11/06/24 20:00 Temperature 98.1 F Pulse Rate 153 H 153 H 156 H Respiratory Rate 24 H Blood Pressure 111/62 131/62 Pulse Oximetry 94 Oxygen Delivery Oxygen Flow Rate Fraction of Inspired Oxygen 11/06/24 20:00 11/06/24 21:53 11/06/24 22:00 Temperature Pulse Rate 156 H 104 H 104 H Respiratory Rate 20 Blood Pressure 105/58 L 105/58 L Pulse Oximetry 90 Oxygen Delivery Oxygen Flow Rate Fraction of Inspired Oxygen 11/06/24 22:00 11/07/24 00:00 11/07/24 00:00 Temperature 97.6 F Pulse Rate 104 H 100 100 Respiratory Rate 20 Blood Pressure 150/61 H Pulse Oximetry 97 Oxygen Delivery Oxygen Flow Rate Fraction of Inspired Oxygen 11/07/24 00:09 11/07/24 00:18 11/07/24 00:18 Temperature Pulse Rate 101 H 101 H 101 H Respiratory Rate Blood Pressure 150/61 H 150/61 H 150/61 H Pulse Oximetry Oxygen Delivery Oxygen Flow Rate Fraction of Inspired Oxygen 11/07/24 01:54 11/07/24 01:55 11/07/24 02:00 Temperature Pulse Rate 99 99 99 Respiratory Rate 18 Blood Pressure 148/58 H 148/58 H Pulse Oximetry 91 Oxygen Delivery Oxygen Flow Rate Fraction of Inspired Oxygen 11/07/24 03:57 11/07/24 04:00 11/07/24 04:55 Temperature 97.6 F Pulse Rate 95 97 97 Respiratory Rate 18 Blood Pressure 138/57 L 138/57 L Pulse Oximetry 93 Oxygen Delivery Oxygen Flow Rate Fraction of Inspired Oxygen 11/07/24 05:52 11/07/24 06:00 11/07/24 06:00 Temperature Pulse Rate 98 98 95 Respiratory Rate Blood Pressure 160/58 H 160/58 H Pulse Oximetry 92 Oxygen Delivery Oxygen Flow Rate Fraction of Inspired Oxygen Intake/Output Intake/Output: Intake & Output 11/04/24 11/05/24 11/06/24 11/07/24 23:59 23:59 23:59 23:59 Intake Total 1300 306.9 754.3 373.3 Output Total 105 536 1845 500 Balance 650 -493.1 -645.7 -126.7 Meds/Results Medications: Active Medications Generic Name Dose Route Start Last Admin Trade Name Freq PRN Reason Stop Dose Admin Acetaminophen 650 mg 11/06/24 12:18 11/07/24 05:56 Acetaminophen 325 Mg Tablet PO 650 mg Q4H PRN Administration Headache Alprazolam 0.25 mg 11/03/24 19:16 11/06/24 00:11 Alprazolam (*Crx) 0.25 Mg Tablet PO 0.25 mg QHS PRN Administration Anxiety Apixaban 5 mg 11/05/24 21:00 11/06/24 20:51 Apixaban 5 Mg Tablet PO 5 mg Q12HR KEVIN Administration Cyclosporine 1 drop 11/03/24 21:00 11/06/24 20:51 Cyclosporine 0.4 Ml Ophth Solution EACH EYE 1 drop Q12HR KEVIN Administration Digoxin 250 mcg 11/06/24 10:45 11/06/24 10:43 Digoxin Inj 250 Mcg/Ml 2 Ml Amp (*Bkc) IV PUSH 250 mcg DAILY KEVIN Administration Piperacillin Sod/Tazobactam 50 mls @ 100 mls/hr 11/03/24 20:00 11/07/24 04:39 Sod 2.25 gm/ Sodium Chloride IVPB 100 mls/hr Q8H KEVIN Administration Amiodarone HCl/Dextrose 360 mg in 200 mls @ 16.667 mls/hr 11/05/24 17:20 11/07/24 06:00 Nexterone 360 Mg/D5w 200 Ml IV CONT 0.5 mg/min .Q12H KEVIN 16.67 mls/hr 0.5 MG/MIN Infusion Miscellaneous Information 0 each 11/03/24 00:01 11/05/24 06:18 Terbinafine Takes For 7 Days Out Of The Month So When Is Next Dose Due??? XX 12/03/24 00:00 Not Given CLARIFY KEVIN Perflutren Lipid Microsphere 0 ml 11/05/24 15:47 Perflutren Lipid Microspheres 1.5 Ml Vial Diluted To 10 Ml Total Volume IV PUSH 11/08/24 15:47 ONCE PRN adequate visualization Protocol Simvastatin 20 mg 11/04/24 09:00 11/06/24 08:33 Simvastatin 20 Mg Tablet PO 20 mg DAILY KEVIN Administration Sodium Bicarbonate 650 mg 11/05/24 17:00 11/06/24 17:13 Sodium Bicarbonate Tab 650 Mg Tablet PO 650 mg BID KEVIN Administration Sodium Chloride 10 ml 11/06/24 22:00 11/07/24 05:57 Central Line Flush IV PUSH 10 ml Q8HR KEVIN Administration Sodium Chloride 10 ml 11/06/24 14:29 Central Line Flush IV PUSH PRN PRN with TPN bag changes Sodium Chloride 20 ml 11/06/24 14:29 Central Line Flush IV PUSH PRN PRN after blood draws Terbinafine HCl 250 mg 11/04/24 09:00 Terbinafine Hcl 250 Mg Tablet PO DAILY KEVIN Trazodone HCl 50 mg 11/03/24 21:00 11/06/24 20:51 Trazodone Hcl 50 Mg Tablet PO 50 mg QHS KEVIN Administration Vancomycin HCl 500 mg 11/06/24 08:15 11/07/24 05:56 Vancomycin Hcl 250 Mg Oral Capsule PO 500 mg Q6HR KEVIN Administration Radiology Results: ITS Impressions Abdomen/Pelvis CT 11/04/24 12:36 IMPRESSION: 1. No evidence of bowel perforation. 2. Persistent severe pancolitis. 3. New small scattered ascites. 4. New small pleural effusions and significant bibasilar atelectasis. Renal Ultrasound 11/04/24 19:07 Impression: Simple appearing left renal cyst. No significant medical renal disease or obstruction Abdomen X-Ray 11/05/24 16:02 Impression: 1. Findings concerning for small bowel obstruction. CT is suggested Chest/Abdomen/Pelvis CT 11/05/24 17:04 IMPRESSION: 1. Diffuse colitis detailed above, correlate for underlying pseudomembranous colitis. No perforation or abscess. Follow-up recommended to assess. 2. CHF with superimposed probable bronchopneumonia. 3. Incidental findings above. Contrast-enhanced MRI recommended Chest X-Ray 11/06/24 12:01 IMPRESSION: 1. Decreased lung volumes with small bilateral pleural effusions and associated bibasilar atelectasis and/or pneumonia. 2. Haustral fold thickening along the visualized colon suspicious for colitis. Head CT 11/06/24 12:46 Impression: 1.No acute intracranial abnormality. Labs Labs: Laboratory Results - last 24 hr 11/06/24 11/06/24 11/06/24 08:19 11:15 16:10 WBC RBC Hgb Hct MCV MCH MCHC RDW Plt Count MPV Immature Gran % (Auto) Neut % (Auto) Lymph % (Auto) [place] % (Auto) Eos % (Auto) Baso % (Auto) Lymph # (Auto) [place] # (Auto) Eos # (Auto) Baso # (Auto) Abs Immat Gran (auto) Absolute Neuts (auto) Absolute Nucleated RBC Nucleated RBC % PT 22.6 H INR 2.0 APTT Sodium 126 L Potassium 4.3 Chloride 95 L Carbon Dioxide 17 L Anion Gap 14 H BUN 67 H Creatinine 4.18 H Estim Creat Clear Calc 10 Estimated GFR 10 L Glucose 160 H Lactic Acid 2.1 H 0.9 Calcium 7.1 L Phosphorus Magnesium Total Bilirubin 1.1 AST 81 H ALT 31 Alkaline Phosphatase 123 Lactate Dehydrogenase 268 H C-Reactive Protein 16.2 H NT-Pro-B Natriuret Pep 3410 H Total Protein 5.6 L Albumin 3.1 L Procalcitonin 4.9 Stool Neutral Fats Hep Bs Antigen Hep Bs Antibody Hep B Core Total Ab 11/06/24 11/07/24 11/07/24 17:20 04:35 04:35 WBC 18.5 H RBC 3.70 L Hgb 11.6 L Hct 33.0 L MCV 89.2 D MCH 31.4 MCHC 35.2 RDW 13.0 Plt Count 370 MPV 9.4 Immature Gran % (Auto) 4.5 H Neut % (Auto) 83.0 H Lymph % (Auto) 6.2 L [place] % (Auto) 5.5 Eos % (Auto) 0.3 Baso % (Auto) 0.5 Lymph # (Auto) 1.15 [place] # (Auto) 1.0 H Eos # (Auto) 0.1 Baso # (Auto) 0.1 Abs Immat Gran (auto) 0.83 H Absolute Neuts (auto) 15.3 H Absolute Nucleated RBC 0.000 Nucleated RBC % 0.0 PT 23.6 H INR 2.1 APTT 37.1 H Sodium 124 L Potassium 3.9 Chloride 92 L Carbon Dioxide 17 L Anion Gap 15 H BUN 69 H Creatinine 3.94 H Estim Creat Clear Calc 10 Estimated GFR 11 L Glucose 196 H Lactic Acid Calcium 6.6 L Phosphorus 5.5 H Magnesium 1.7 Total Bilirubin 0.7 AST 63 H ALT 29 Alkaline Phosphatase 114 Lactate Dehydrogenase 262 H C-Reactive Protein NT-Pro-B Natriuret Pep Total Protein 5.0 L 5.0 L Albumin 2.6 L Procalcitonin Stool Neutral Fats Cancelled Hep Bs Antigen Negative Hep Bs Antibody Positive Hep B Core Total Ab Cancelled 11/07/24 04:36 WBC RBC Hgb Hct MCV MCH MCHC RDW Plt Count MPV Immature Gran % (Auto) Neut % (Auto) Lymph % (Auto) [place] % (Auto) Eos % (Auto) Baso % (Auto) Lymph # (Auto) [place] # (Auto) Eos # (Auto) Baso # (Auto) Abs Immat Gran (auto) Absolute Neuts (auto) Absolute Nucleated RBC Nucleated RBC % PT INR APTT Sodium Potassium Chloride Carbon Dioxide Anion Gap BUN Creatinine Estim Creat Clear Calc Estimated GFR Glucose Lactic Acid 0.9 Calcium Phosphorus Magnesium Total Bilirubin AST ALT Alkaline Phosphatase Lactate Dehydrogenase C-Reactive Protein NT-Pro-B Natriuret Pep Total Protein Albumin Procalcitonin Stool Neutral Fats Hep Bs Antigen Hep Bs Antibody Hep B Core Total Ab Quality VTE Prophylaxis VTE prophylaxis: mechanical ordered and pharmacologic ordered Hospitalist MIPS Advance Care Plan I have confirmed that the patient's Advanced Care Plan is present, code status is documented, or surrogate decision maker is listed in patient medical record.: Yes Medication Reconciliation I have utilized all available resources to obtain, update and review the patients current medications (includes all prescriptions, OTC, herbals, cannabis, and nutritional supplements).: Yes
--- NOTE | 2024-11-07 08:01 | P.PNCA_ITS ---
Progress Note: A&P Assessment and Plan (1) Atrial flutter: Code(s): I48.92 - Unspecified atrial flutter Status: Acute (2) Elevated troponin: Code(s): R79.89 - Other specified abnormal findings of blood chemistry Status: Acute Plan Diagnosis: Atrial flutter with RVR-she spontaneously cardioverted to sinus rhythm overnight Hypertension-not well controlled Hyperlipidemia-on statin DONOVAN Acute colitis on IV antibiotic Hyponatremia Pleural effusions- thoracentesis being planned Plan: Spontaneously cardioverted to sinus rhythm overnight. She remains in sinus rhythm with rates in the 90s this morning Start metoprolol tartrate 25 mg q.8 hours Give digoxin 250 mcg p.o. today She completed amiodarone drip. I will not start p.o. amiodarone as the goal is to avoid long-term amiodarone Continue anticoagulation with Eliquis Check and replace electrolytes to keep potassium greater than 4 and magnesium greater than 2 Resume amlodipine 10 mg daily for blood pressure control Lisinopril and spironolactone on hold due to DONOVAN. Monitor renal function daily Continue statin Management of other medical problems per primary team Subjective Date/time seen: 11/07/24 08:01 Interval history: Reason for encounter: A flutter with RVR Relevant history: 78-year-old female with history of hypertension, hyperlipidemia was admitted with abdominal pain secondary to colitis. Lab showed leukocytosis, hyponatremia, DONOVAN with creatinine of 3, elevated lactate, elevated troponin (0.132, 0.196,0.251, 0.310, 0.244). CT chest abdomen pelvis showed diffuse colitis, pulmonary edema, probable bronchopneumonia. She was started on IV antibiotics. She was noted to be in atrial flutter with 2:1 conduction with rates in the 150s and was started on Cardizem drip. Rates were not controlled and Cardiology was consulted for further recommendations. Interval history: Patient spontaneously cardioverted to sinus rhythm overnight. She is in sinus rhythm this morning with rates in the 90s. She denies any chest pain, palpitations, dizziness. She denies any abdominal pain. Review of Systems Cardiovascular: Comments: As per HPI Respiratory: Comments: As per HPI Exam Narrative: General: Alert oriented x3, no acute distress Neck: Supple, no JVD Chest: Decreased breath sounds at lung bases, clear to auscultation remaining lung anand, no rales or rhonchi Cardiac: S1, S2 +, regular rate, regular rhythm, no murmurs or rubs Extremities: Bilateral lower extremity edema 1+, no skin rash Neurologic: Alert and oriented x3, no focal neurological deficits Objective Data Vital Signs Vital Signs: Vital Signs - 24 hr 11/06/24 09:55 11/06/24 09:57 11/06/24 10:00 Temperature Pulse Rate 150 H 153 H 152 H Respiratory Rate 22 H Blood Pressure 154/95 H Pulse Oximetry 92 Oxygen Delivery Oxygen Flow Rate Fraction of Inspired Oxygen 11/06/24 10:00 11/06/24 10:43 11/06/24 10:43 Temperature Pulse Rate 150 H 128 H 81 Respiratory Rate Blood Pressure 154/95 H Pulse Oximetry Oxygen Delivery Oxygen Flow Rate Fraction of Inspired Oxygen 11/06/24 11:48 11/06/24 11:50 11/06/24 11:53 Temperature Pulse Rate 153 H 149 H 153 H Respiratory Rate 20 Blood Pressure Pulse Oximetry 92 Oxygen Delivery High Flow Therapy with Na Oxygen Flow Rate 40 Fraction of Inspired Oxygen 70 11/06/24 12:00 11/06/24 12:00 11/06/24 12:00 Temperature 36.8 C Pulse Rate 144 H 52 L 152 H Respiratory Rate 28 H Blood Pressure 151/89 H 151/89 H Pulse Oximetry 93 Oxygen Delivery Oxygen Flow Rate Fraction of Inspired Oxygen 11/06/24 12:48 11/06/24 14:00 11/06/24 14:00 Temperature Pulse Rate 149 H 151 H 152 H Respiratory Rate 20 Blood Pressure Pulse Oximetry 92 Oxygen Delivery High Flow Therapy with Na Oxygen Flow Rate 40 Fraction of Inspired Oxygen 70 11/06/24 14:39 11/06/24 14:39 11/06/24 16:00 Temperature 36.6 C Pulse Rate 151 H 151 H 149 H Respiratory Rate 26 H Blood Pressure 116/57 L Pulse Oximetry 93 Oxygen Delivery Oxygen Flow Rate Fraction of Inspired Oxygen 11/06/24 16:00 11/06/24 16:00 11/06/24 18:00 Temperature 36.7 C Pulse Rate 150 H 149 H 151 H Respiratory Rate 24 H Blood Pressure 116/57 L 111/67 Pulse Oximetry 95 Oxygen Delivery Oxygen Flow Rate Fraction of Inspired Oxygen 11/06/24 18:00 11/06/24 18:00 11/06/24 20:00 Temperature 36.7 C Pulse Rate 153 H 153 H 156 H Respiratory Rate 24 H Blood Pressure 111/62 131/62 Pulse Oximetry 94 Oxygen Delivery Oxygen Flow Rate Fraction of Inspired Oxygen 11/06/24 20:00 11/06/24 21:53 11/06/24 22:00 Temperature Pulse Rate 156 H 104 H 104 H Respiratory Rate 20 Blood Pressure 105/58 L 105/58 L Pulse Oximetry 90 Oxygen Delivery Oxygen Flow Rate Fraction of Inspired Oxygen 11/06/24 22:00 11/07/24 00:00 11/07/24 00:00 Temperature 36.4 C Pulse Rate 104 H 100 100 Respiratory Rate 20 Blood Pressure 150/61 H Pulse Oximetry 97 Oxygen Delivery Oxygen Flow Rate Fraction of Inspired Oxygen 11/07/24 00:09 11/07/24 00:18 11/07/24 00:18 Temperature Pulse Rate 101 H 101 H 101 H Respiratory Rate Blood Pressure 150/61 H 150/61 H 150/61 H Pulse Oximetry Oxygen Delivery Oxygen Flow Rate Fraction of Inspired Oxygen 11/07/24 01:54 11/07/24 01:55 11/07/24 02:00 Temperature Pulse Rate 99 99 99 Respiratory Rate 18 Blood Pressure 148/58 H 148/58 H Pulse Oximetry 91 Oxygen Delivery Oxygen Flow Rate Fraction of Inspired Oxygen 11/07/24 03:57 11/07/24 04:00 11/07/24 04:55 Temperature 36.4 C Pulse Rate 95 97 97 Respiratory Rate 18 Blood Pressure 138/57 L 138/57 L Pulse Oximetry 93 Oxygen Delivery Oxygen Flow Rate Fraction of Inspired Oxygen 11/07/24 05:52 11/07/24 06:00 11/07/24 06:00 Temperature Pulse Rate 98 98 95 Respiratory Rate Blood Pressure 160/58 H 160/58 H Pulse Oximetry 92 Oxygen Delivery Oxygen Flow Rate Fraction of Inspired Oxygen Intake/Output Intake/Output: Intake & Output 11/04/24 11/05/24 11/06/24 11/07/24 23:59 23:59 23:59 23:59 Intake Total 1300 306.9 754.3 373.3 Output Total 606 629 2021 500 Balance 650 -493.1 -645.7 -126.7 Meds/Results Medications: Active Medications Generic Name Dose Route Start Last Admin Trade Name Freq PRN Reason Stop Dose Admin Acetaminophen 650 mg 11/06/24 12:18 11/07/24 05:56 Acetaminophen 325 Mg Tablet PO 650 mg Q4H PRN Administration Headache Alprazolam 0.25 mg 11/03/24 19:16 11/06/24 00:11 Alprazolam (*Crx) 0.25 Mg Tablet PO 0.25 mg QHS PRN Administration Anxiety Apixaban 5 mg 11/05/24 21:00 11/06/24 20:51 Apixaban 5 Mg Tablet PO 5 mg Q12HR KEVIN Administration Cyclosporine 1 drop 11/03/24 21:00 11/06/24 20:51 Cyclosporine 0.4 Ml Ophth Solution EACH EYE 1 drop Q12HR KEVIN Administration Digoxin 250 mcg 11/06/24 10:45 11/06/24 10:43 Digoxin Inj 250 Mcg/Ml 2 Ml Amp (*Bkc) IV PUSH 250 mcg DAILY KEVIN Administration Piperacillin Sod/Tazobactam 50 mls @ 100 mls/hr 11/03/24 20:00 11/07/24 04:39 Sod 2.25 gm/ Sodium Chloride IVPB 100 mls/hr Q8H KEVIN Administration Amiodarone HCl/Dextrose 360 mg in 200 mls @ 16.667 mls/hr 11/05/24 17:20 11/07/24 06:00 Nexterone 360 Mg/D5w 200 Ml IV CONT 0.5 mg/min .Q12H KEVIN 16.67 mls/hr 0.5 MG/MIN Infusion Metoprolol Tartrate 25 mg 11/07/24 09:00 Metoprolol Tartrate 25 Mg Tablet PO Q8HR KEVIN Miscellaneous Information 0 each 11/03/24 00:01 11/05/24 06:18 Terbinafine Takes For 7 Days Out Of The Month So When Is Next Dose Due??? XX 12/03/24 00:00 Not Given CLARIFY KEVIN Perflutren Lipid Microsphere 0 ml 11/05/24 15:47 Perflutren Lipid Microspheres 1.5 Ml Vial Diluted To 10 Ml Total Volume IV PUSH 11/08/24 15:47 ONCE PRN adequate visualization Protocol Simvastatin 20 mg 11/04/24 09:00 11/06/24 08:33 Simvastatin 20 Mg Tablet PO 20 mg DAILY KEVIN Administration Sodium Bicarbonate 650 mg 11/05/24 17:00 11/06/24 17:13 Sodium Bicarbonate Tab 650 Mg Tablet PO 650 mg BID KEVIN Administration Sodium Chloride 10 ml 11/06/24 22:00 11/07/24 05:57 Central Line Flush IV PUSH 10 ml Q8HR KEVIN Administration Sodium Chloride 10 ml 11/06/24 14:29 Central Line Flush IV PUSH PRN PRN with TPN bag changes Sodium Chloride 20 ml 11/06/24 14:29 Central Line Flush IV PUSH PRN PRN after blood draws Terbinafine HCl 250 mg 11/04/24 09:00 Terbinafine Hcl 250 Mg Tablet PO DAILY KEVIN Trazodone HCl 50 mg 11/03/24 21:00 11/06/24 20:51 Trazodone Hcl 50 Mg Tablet PO 50 mg QHS KEVIN Administration Vancomycin HCl 500 mg 11/06/24 08:15 11/07/24 05:56 Vancomycin Hcl 250 Mg Oral Capsule PO 500 mg Q6HR KEVIN Administration Radiology Results: ITS Impressions Abdomen/Pelvis CT 11/04/24 12:36 IMPRESSION: 1. No evidence of bowel perforation. 2. Persistent severe pancolitis. 3. New small scattered ascites. 4. New small pleural effusions and significant bibasilar atelectasis. Renal Ultrasound 11/04/24 19:07 Impression: Simple appearing left renal cyst. No significant medical renal disease or obstruction Abdomen X-Ray 11/05/24 16:02 Impression: 1. Findings concerning for small bowel obstruction. CT is suggested Chest/Abdomen/Pelvis CT 11/05/24 17:04 IMPRESSION: 1. Diffuse colitis detailed above, correlate for underlying pseudomembranous colitis. No perforation or abscess. Follow-up recommended to assess. 2. CHF with superimposed probable bronchopneumonia. 3. Incidental findings above. Contrast-enhanced MRI recommended Chest X-Ray 11/06/24 12:01 IMPRESSION: 1. Decreased lung volumes with small bilateral pleural effusions and associated bibasilar atelectasis and/or pneumonia. 2. Haustral fold thickening along the visualized colon suspicious for colitis. Head CT 11/06/24 12:46 Impression: 1.No acute intracranial abnormality. Labs Labs: Laboratory Results - last 24 hr 11/06/24 11/06/24 11/06/24 08:19 11:15 16:10 WBC RBC Hgb Hct MCV MCH MCHC RDW Plt Count MPV Immature Gran % (Auto) Neut % (Auto) Lymph % (Auto) Pickett % (Auto) Eos % (Auto) Baso % (Auto) Lymph # (Auto) Pickett # (Auto) Eos # (Auto) Baso # (Auto) Abs Immat Gran (auto) Absolute Neuts (auto) Absolute Nucleated RBC Nucleated RBC % PT 22.6 H INR 2.0 APTT Sodium 126 L Potassium 4.3 Chloride 95 L Carbon Dioxide 17 L Anion Gap 14 H BUN 67 H Creatinine 4.18 H Estim Creat Clear Calc 10 Estimated GFR 10 L Glucose 160 H Lactic Acid 2.1 H 0.9 Calcium 7.1 L Phosphorus Magnesium Total Bilirubin 1.1 AST 81 H ALT 31 Alkaline Phosphatase 123 Lactate Dehydrogenase 268 H C-Reactive Protein 16.2 H NT-Pro-B Natriuret Pep 3410 H Total Protein 5.6 L Albumin 3.1 L Procalcitonin 4.9 Stool Neutral Fats Hep Bs Antigen Hep Bs Antibody Hep B Core Total Ab Ref Lab Test Name Ref Lab Test Result 11/06/24 11/07/24 11/07/24 17:20 04:35 04:35 WBC 18.5 H RBC 3.70 L Hgb 11.6 L Hct 33.0 L MCV 89.2 D MCH 31.4 MCHC 35.2 RDW 13.0 Plt Count 370 MPV 9.4 Immature Gran % (Auto) 4.5 H Neut % (Auto) 83.0 H Lymph % (Auto) 6.2 L Pickett % (Auto) 5.5 Eos % (Auto) 0.3 Baso % (Auto) 0.5 Lymph # (Auto) 1.15 Pickett # (Auto) 1.0 H Eos # (Auto) 0.1 Baso # (Auto) 0.1 Abs Immat Gran (auto) 0.83 H Absolute Neuts (auto) 15.3 H Absolute Nucleated RBC 0.000 Nucleated RBC % 0.0 PT 23.6 H INR 2.1 APTT 37.1 H Sodium 124 L Potassium 3.9 Chloride 92 L Carbon Dioxide 17 L Anion Gap 15 H BUN 69 H Creatinine 3.94 H Estim Creat Clear Calc 10 Estimated GFR 11 L Glucose 196 H Lactic Acid Calcium 6.6 L Phosphorus 5.5 H Magnesium 1.7 Total Bilirubin 0.7 AST 63 H ALT 29 Alkaline Phosphatase 114 Lactate Dehydrogenase 262 H C-Reactive Protein NT-Pro-B Natriuret Pep Total Protein 5.0 L 5.0 L Albumin 2.6 L Procalcitonin Stool Neutral Fats Cancelled Hep Bs Antigen Negative Hep Bs Antibody Positive Hep B Core Total Ab Cancelled Ref Lab Test Name Cancelled Ref Lab Test Result Cancelled 11/07/24 04:36 WBC RBC Hgb Hct MCV MCH MCHC RDW Plt Count MPV Immature Gran % (Auto) Neut % (Auto) Lymph % (Auto) Pickett % (Auto) Eos % (Auto) Baso % (Auto) Lymph # (Auto) [place]ett # (Auto) Eos # (Auto) Baso # (Auto) Abs Immat Gran (auto) Absolute Neuts (auto) Absolute Nucleated RBC Nucleated RBC % PT INR APTT Sodium Potassium Chloride Carbon Dioxide Anion Gap BUN Creatinine Estim Creat Clear Calc Estimated GFR Glucose Lactic Acid 0.9 Calcium Phosphorus Magnesium Total Bilirubin AST ALT Alkaline Phosphatase Lactate Dehydrogenase C-Reactive Protein NT-Pro-B Natriuret Pep Total Protein Albumin Procalcitonin Stool Neutral Fats Hep Bs Antigen Hep Bs Antibody Hep B Core Total Ab Ref Lab Test Name Ref Lab Test Result
[2024-11-07] MEDS: SODIUM BICARBONATE TAB 650 MG TABLET PO ×2 (08:02→17:15)
[2024-11-07] MEDS: SIMVASTATIN 20 MG TABLET PO (08:02)
[2024-11-07] MEDS: METOPROLOL TARTRATE 25 MG TABLET PO ×3 (08:03→21:14)
[2024-11-07] MEDS: cycloSPORINE 0.4 ML OPHTH SOLUTION 1 DROP EACH EYE ×2 (08:04→21:14)
[2024-11-07] MEDS: DIGOXIN INJ 250 MCG/ML 2 ML AMP (*BKC) IV PUSH (08:08)
--- NOTE | 2024-11-07 09:34 | P.PNPL_ITS ---
Progress Note: A&P Assessment and Plan (1) Respiratory failure with hypoxia: Code(s): J96.91 - Respiratory failure, unspecified with hypoxia Status: Acute Assessment and Plan: Patient on no previous oxygen. She presented on 11/01 and 11/03 to the ER with colitis and had room air saturations on 11/03 of 97%. She has progressive worsening oxygenation along with her acute renal failure, development of bila teral pleural effusions and is now requiring Airvo 40 L and 70% FiO2. of note ABG on 11/05/2024 on 8 L nasal cannula with a pH of 7.35/24/69. Etiology of patient's hypoxemic respiratory failure includes: Bilateral pleural effusions with adjacent atelectasis, fluid overload, atrial flutter with rapid ventricular response, pancolitis, and possible pneumonia. 11/06/24: Plan: Agree with as aggressive diuresis as tolerated by her cardiac and renal systems. Since patient is now requiring nares are recommend thoracentesis which hopefully can be performed on 11/07/2024 as she received apixaban 5 mg on 11/06 at 8:33 a.m.. Low clinical suspicion for bacterial pneumonia and agree with Zosyn for her pancolitis, day 3 today. I will send respiratory pathogen panel, urine for Legionella, urine for pneumococcal and serum mycoplasma IgM. I will initiate the patient on EzPAP for her bilateral atelectasis. Currently the patient has minimal shortness of breath but should she develop worsening work of breathing would initiate noninvasive ventilation with the AVAPS mode, rate 14, tidal volume 500, EPAP 5, minimum inspiratory pressure 6, maximal inspiratory pressure 25 and FiO2 to maintain saturations 90-94%. 11/07/24: Patient tells me she feels better today. Overall she feels like she is 25-50% back to normal. Her breathing is better, she has a cough that is improved and produces a little bit of phlegm with no hemoptysis. She has less abdominal pain and has flatus. She is afebrile. She is on Vapotherm 40 L and 70% FiO2 with saturations 91%. She is on IV amiodarone drip now in sinus at 88. Her white blood cell count is 18.5, creatinine is 3.94. Yesterday she diuresed 645 mL, cumulative she is positive 1.4 L since admission. Her weight is 74.1 kg. Plan: patient clinically improved with Zosyn, diuresis, and conversion of a flutter with RVR to sinus. remains with hypoxic respiratory failure. Agree with thoracentesis affects can be safely done with an INR of 2.1. Agree with eventual diuresis, currently on hold per Nephrology. Discussed with Dr. Appiah. Will follow with you. Subjective Date/time seen: 11/07/24 09:34 Interval history: 11/06/2024: This is a new pulmonary consult for hypoxemic respiratory failure 78-year-old with a history of hypertension. Patient denies a history of asthma, COPD, recurrent pneumonias. She is not on any oxygen at home and checks her pulse oximetry at home and it has been 95- 98%. Patient is a never smoker but was exposed to secondhand smoke from her father, from her 1st and 2nd from 1969 to 1985. 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 After 1985 she worked in a [employer]. She denies sand blasting, welding, asbestos were, professional painting, construction work, coal mining or quarry work. Patient noticed that 2 years she developed dyspnea on exertion. Two years ago she could walk 3/4 of a block. One year ago she could walk half a block and currently before this illness she could walk half a block with minimal cell changer the last year. 11/01 patient presented to the emergency department with abdominal pain and Room air saturations were 98%. CT scan of the abdomen showed diverticulitis with no abscess. Her white blood cell count was 12.8. Her creatinine was 0.99. She was discharged on Augmentin. 11/03/2024 patient presented to the emergency room with abdominal pain. Her blood pressure is 128/49, heart rate 87, respirations 26, room air saturations 97%. White blood cell count was 21.8, creatinine was 3.03, bands were 20%. Lipase less than 10. CT scan of the abdomen showed progression of her pancolitis with no pleural effusions. Patient was started on Zosyn. 11/04/2024: At 8:00 p.m. she required 2 L nasal cannula saturations 92%. Patient developed atrial flutter treated with diltiazem. 11/05/2024 CT scan chest abdomen and pelvis showed moderate bilateral pleural effusions with atelectasis. At 11:45 a.m. she required 8 L nasal cannula saturations 90%. ABG on 8 L nasal cannula 7.. At 9:00 p.m. she required 8 L with saturations 90%. At 11:00 p.m. she required Airvo 40 L and 70% with saturations 90%. Cardiology consulted and patient initiated on amiodarone and diltiazem discontinued. 11/06/2024: The patient tells me today that her shortness of breath is at her baseline and this is the same as yesterday. She developed a cough today with no phlegm and no hemoptysis. She denies fever. She tells me her abdominal pain is better today than yesterday. She has had flatus today. Earlier today she received IV metoprolol and IV digoxin for atrial flutter with fast heart rate. C urrently her heart rate is 149 and regular and she is being restarted on amiodarone drip. Patient remains on Airvo 40 L, 70% FiO2 with saturations 92%. Her white blood cell count is 28.3, creatinine is 4.18. Chest x-ray today compared with 11/04/2024 shows decreased lung volumes with small bilateral pleural effusions with bibasilar infiltrates. 11/07/24: Patient tells me she feels better today. Overall she feels like she is 25-50% back to normal. Her breathing is better, she has a cough that is improved and produces a little bit of phlegm with no hemoptysis. She has less abdominal pain and has flatus. She is afebrile. She is on Vapotherm 40 L and 70% FiO2 with saturations 91%. She is on IV amiodarone drip now in sinus at 88. Her white blood cell count is 18.5, creatinine is 3.94. Yesterday she diuresed 645 mL, cumulative she is positive 1.4 L since admission. Her weight is 74.1 kg. DATA: 11/06/24: EXAMINATION: XR chest 1V portable DATE: 11/06/2024 11:34 INDICATION: Respiratory failure TECHNIQUE: frontal view of the chest was obtained. COMPARISON: Chest radiograph dated 11/04/[address] dated 11/05/2024 FINDINGS: Lung volumes are small, unchanged on the left and with interval progression of volume loss on the right. Airspace opacity at the bilateral lower lung zones with blunting at the costophrenic angles consistent with small bilateral pleural effusions and associated atelectasis and/or pneumonia. No pneumothorax or evident pulmonary edema. Heart size is normal. There is ostial fold thickening along the visualized ascending and transverse colon suggestive of colitis. IMPRESSION: 1. Decreased lung volumes with small bilateral pleural effusions and associated bibasilar atelectasis and/or pneumonia. 2. Haustral fold thickening along the visualized colon suspicious for colitis. 11/05/2024: EXAMINATION: CT chest abdomen pelvis wo con, 11/05/2024 16:20 CDT HISTORY: SBO COMPARISON: No comparisons available. FINDINGS: CT chest: No significant coronary calcification is present ([id number]) LUNGS: No tracheomalacia. No bronchiectasis. Moderate to large simple appearing bilateral pleural effusions with small basilar infiltrates. Minimal emphysematous changes. HEART AND PERICARDIUM: Mild cardiomegaly. No pericardial effusion. AORTA: Atherosclerotic changes of the aorta. MEDIASTINUM: Unremarkable. THYROID: The thyroid is unremarkable. CT abdomen: LIVER: Mild cirrhotic disease of the liver suspected. SPLEEN: Mild atrophy of the spleen.. KIDNEYS: Right Kidney: Right kidney mild hydronephrosis, no hydroureter. Left Kidney: Left kidney large simple appearing peripelvic renal cyst 5 x 6 cm. ADRENAL GLANDS: Unremarkable. PANCREAS: Moderate atrophy of the pancreas. Cystic pancreatic lesion of the body 1.5 x 1.6 cm incompletely evaluated, contrast-enhanced MRI recommended. GALLBLADDER/BILIARY: Mild distention of the gallbladder. STOMACH AND ESOPHAGUS: The stomach is decompressed. BOWEL/MESENTERY: Multiple fluid-filled loops of large bowel which appears thickened, absence of contrast limits evaluation. There is pericolonic stranding noted but no gross perforation or abscess, no pneumatosis. Appendix appears minimally thickened but there is no periappendiceal inflammation. Stranding throughout the visualized remaining mesentery. Nonspecific fluid-filled loops of small bowel, no dilated small bowel loops. RETROPERITONEUM: Unremarkable AORTA/VASCULATURE: Normal caliber aorta. FREE FLUID OR FREE AIR: Large amount of free fluid throughout the abdomen and pelvis. Small amount of free fluid in the presacral space.. CT pelvis: SOLID ORGANS/REPRODUCTIVE: Unremarkable. BLADDER: Bladder decompressed. LYMPHADENOPATHY: No lymphadenopathy. OSSEOUS STRUCTURES: No acute osseous abnormality.No suspicious lesions. OVERLYING SOFT TISSUES: Holland catheter in the bladder. IMPRESSION: 1. Diffuse colitis detailed above, correlate for underlying pseudomembranous colitis. No perforation or abscess. Follow-up recommended to assess. 2. CHF with superimposed probable bronchopneumonia. 3. Incidental findings above. Contrast-enhanced MRI recommended Review of Systems Constitutional: Constitutional: Reports no additional constitutional complaints Eyes: Eyes: Reports no additional eye complaints ENT: Reports system reviewed and no additional complaints, except as documented Cardiovascular: Cardiovascular: Reports no additional cardiovascular complaints Respiratory: Respiratory: Reports no additional respiratory complaints Gastrointestinal: Gastrointestinal: Reports no additional gastrointestinal complaints Musculoskeletal: Musculoskeletal: Reports no additional musculoskeletal complaints Neurologic: Reports system reviewed and no additional complaints, except as documented Psychiatric: Psychiatric: Reports no additional psychiatric complaints Endocrine: Endocrine: Reports no additional endocrine complaints Hematologic/Lymphatic: Hematologic/Lymphatic: Reports no additional hematologic/lymphatic complaints Allergic/Immunologic: Allergic/Immunologic: Reports no additional allergic/immunologic complaints Exam Const: General: cooperative, healthy appearing and comfortable Orientation/consciousness: oriented to person, oriented to place and oriented to time Other: No respiratory distress HENMT: Head: normal to inspection Ears: hearing grossly normal bilaterally Eyes: General: appearance normal, both eyes and all related structures Neck: Neck: normal visual inspection Chest: Chest palpation & inspection: normal inspection of the chest Resp: Effort & Inspection: normal respiratory effort and able to speak in complete sentences Auscultation: no crackles, no rales, no rhonchi, no wheezes and diminished lung sounds Other: decreased breath sounds at the bases. Cardio: Jugular venous distension: no JVD Other: Heart rate 150 GI: Inspection: normal to inspection Other: distended, decreased bowel sounds. Tender to light palpation. Skin: General skin exam: normal color Neuro: General: oriented to person, oriented to place and oriented to time Extrem: General: normal to inspection Other: No edema Psych: Appearance: grossly normal Objective Data Vital Signs Vital Signs: Vital Signs - 24 hr 11/06/24 09:55 11/06/24 09:57 11/06/24 10:00 Temperature Pulse Rate 150 H 153 H 152 H Respiratory Rate 22 H Blood Pressure 154/95 H Pulse Oximetry 92 Oxygen Delivery Oxygen Flow Rate Fraction of Inspired Oxygen 11/06/24 10:00 11/06/24 10:43 11/06/24 10:43 Temperature Pulse Rate 150 H 128 H 81 Respiratory Rate Blood Pressure 154/95 H Pulse Oximetry Oxygen Delivery Oxygen Flow Rate Fraction of Inspired Oxygen 11/06/24 11:48 11/06/24 11:50 11/06/24 11:53 Temperature Pulse Rate 153 H 149 H 153 H Respiratory Rate 20 Blood Pressure Pulse Oximetry 92 Oxygen Delivery High Flow Therapy with Na Oxygen Flow Rate 40 Fraction of Inspired Oxygen 70 11/06/24 12:00 11/06/24 12:00 11/06/24 12:00 Temperature 36.8 C Pulse Rate 144 H 52 L 152 H Respiratory Rate 28 H Blood Pressure 151/89 H 151/89 H Pulse Oximetry 93 Oxygen Delivery Oxygen Flow Rate Fraction of Inspired Oxygen 11/06/24 12:48 11/06/24 14:00 11/06/24 14:00 Temperature Pulse Rate 149 H 151 H 152 H Respiratory Rate 20 Blood Pressure Pulse Oximetry 92 Oxygen Delivery High Flow Therapy with Na Oxygen Flow Rate 40 Fraction of Inspired Oxygen 70 11/06/24 14:39 11/06/24 14:39 11/06/24 16:00 Temperature 36.6 C Pulse Rate 151 H 151 H 149 H Respiratory Rate 26 H Blood Pressure 116/57 L Pulse Oximetry 93 Oxygen Delivery Oxygen Flow Rate Fraction of Inspired Oxygen 11/06/24 16:00 11/06/24 16:00 11/06/24 18:00 Temperature 36.7 C Pulse Rate 150 H 149 H 151 H Respiratory Rate 24 H Blood Pressure 116/57 L 111/67 Pulse Oximetry 95 Oxygen Delivery Oxygen Flow Rate Fraction of Inspired Oxygen 11/06/24 18:00 11/06/24 18:00 11/06/24 20:00 Temperature 36.7 C Pulse Rate 153 H 153 H 156 H Respiratory Rate 24 H Blood Pressure 111/62 131/62 Pulse Oximetry 94 Oxygen Delivery Oxygen Flow Rate Fraction of Inspired Oxygen 11/06/24 20:00 11/06/24 21:53 11/06/24 22:00 Temperature Pulse Rate 156 H 104 H 104 H Respiratory Rate 20 Blood Pressure 105/58 L 105/58 L Pulse Oximetry 90 Oxygen Delivery Oxygen Flow Rate Fraction of Inspired Oxygen 11/06/24 22:00 11/07/24 00:00 11/07/24 00:00 Temperature 36.4 C Pulse Rate 104 H 100 100 Respiratory Rate 20 Blood Pressure 150/61 H Pulse Oximetry 97 Oxygen Delivery Oxygen Flow Rate Fraction of Inspired Oxygen 11/07/24 00:09 11/07/24 00:18 11/07/24 00:18 Temperature Pulse Rate 101 H 101 H 101 H Respiratory Rate Blood Pressure 150/61 H 150/61 H 150/61 H Pulse Oximetry Oxygen Delivery Oxygen Flow Rate Fraction of Inspired Oxygen 11/07/24 01:54 11/07/24 01:55 11/07/24 02:00 Temperature Pulse Rate 99 99 99 Respiratory Rate 18 Blood Pressure 148/58 H 148/58 H Pulse Oximetry 91 Oxygen Delivery Oxygen Flow Rate Fraction of Inspired Oxygen 11/07/24 03:57 11/07/24 04:00 11/07/24 04:55 Temperature 36.4 C Pulse Rate 95 97 97 Respiratory Rate 18 Blood Pressure 138/57 L 138/57 L Pulse Oximetry 93 Oxygen Delivery Oxygen Flow Rate Fraction of Inspired Oxygen 11/07/24 05:52 11/07/24 06:00 11/07/24 06:00 Temperature Pulse Rate 98 98 95 Respiratory Rate Blood Pressure 160/58 H 160/58 H Pulse Oximetry 92 Oxygen Delivery Oxygen Flow Rate Fraction of Inspired Oxygen 11/07/24 08:00 11/07/24 08:03 11/07/24 08:08 Temperature 36.6 C Pulse Rate 94 94 93 Respiratory Rate 18 Blood Pressure 146/55 H Pulse Oximetry 95 Oxygen Delivery Oxygen Flow Rate Fraction of Inspired Oxygen 11/07/24 08:43 Temperature Pulse Rate 88 Respiratory Rate 20 Blood Pressure Pulse Oximetry 98 Oxygen Delivery High Flow Therapy with Na Oxygen Flow Rate 40 Fraction of Inspired Oxygen 70 Intake/Output Intake/Output: Intake & Output 11/04/24 11/05/24 11/06/24 11/07/24 23:59 23:59 23:59 23:59 Intake Total 1300 306.9 754.3 373.3 Output Total 179 677 8214 500 Balance 650 -493.1 -645.7 -126.7 Meds/Results Medications: Active Medications Generic Name Dose Route Start Last Admin Trade Name Freq PRN Reason Stop Dose Admin Acetaminophen 650 mg 11/06/24 12:18 11/07/24 05:56 Acetaminophen 325 Mg Tablet PO 650 mg Q4H PRN Administration Headache Alprazolam 0.25 mg 11/03/24 19:16 11/06/24 00:11 Alprazolam (*Crx) 0.25 Mg Tablet PO 0.25 mg QHS PRN Administration Anxiety Apixaban 5 mg 11/05/24 21:00 11/06/24 20:51 Apixaban 5 Mg Tablet PO 5 mg On Hold: 11/07/24 09:00 Q12HR KEVIN Administration Resume: 11/09/24 09:00 Comment: On hold until after thoracentesis and cardiology ok's restart. Cyclosporine 1 drop 11/03/24 21:00 11/07/24 08:04 Cyclosporine 0.4 Ml Ophth Solution EACH EYE 1 drop Q12HR KEVIN Administration Digoxin 250 mcg 11/06/24 10:45 11/07/24 08:08 Digoxin Inj 250 Mcg/Ml 2 Ml Amp (*Bkc) IV PUSH 250 mcg DAILY KEVIN Administration Piperacillin Sod/Tazobactam 50 mls @ 100 mls/hr 11/03/24 20:00 11/07/24 04:39 Sod 2.25 gm/ Sodium Chloride IVPB 100 mls/hr Q8H KEVIN Administration Amiodarone HCl/Dextrose 360 mg in 200 mls @ 16.667 mls/hr 11/05/24 17:20 11/07/24 06:00 Nexterone 360 Mg/D5w 200 Ml IV CONT 0.5 mg/min .Q12H KEVIN 16.67 mls/hr 0.5 MG/MIN Infusion Metoprolol Tartrate 25 mg 11/07/24 09:00 11/07/24 08:03 Metoprolol Tartrate 25 Mg Tablet PO 25 mg Q8HR KEVIN Administration Miscellaneous Information 0 each 11/03/24 00:01 11/05/24 06:18 Terbinafine Takes For 7 Days Out Of The Month So When Is Next Dose Due??? XX 12/03/24 00:00 Not Given CLARIFY KEVIN Perflutren Lipid Microsphere 0 ml 11/05/24 15:47 Perflutren Lipid Microspheres 1.5 Ml Vial Diluted To 10 Ml Total Volume IV PUSH 11/08/24 15:47 ONCE PRN adequate visualization Protocol Simvastatin 20 mg 11/04/24 09:00 11/07/24 08:02 Simvastatin 20 Mg Tablet PO 20 mg DAILY KEVIN Administration Sodium Bicarbonate 650 mg 11/05/24 17:00 11/07/24 08:02 Sodium Bicarbonate Tab 650 Mg Tablet PO 650 mg BID KEVIN Administration Sodium Chloride 10 ml 11/06/24 22:00 11/07/24 05:57 Central Line Flush IV PUSH 10 ml Q8HR KEVIN Administration Sodium Chloride 10 ml 11/06/24 14:29 Central Line Flush IV PUSH PRN PRN with TPN bag changes Sodium Chloride 20 ml 11/06/24 14:29 Central Line Flush IV PUSH PRN PRN after blood draws Terbinafine HCl 250 mg 11/04/24 09:00 Terbinafine Hcl 250 Mg Tablet PO DAILY KEVIN Trazodone HCl 50 mg 11/03/24 21:00 11/06/24 20:51 Trazodone Hcl 50 Mg Tablet PO 50 mg QHS KEVIN Administration Vancomycin HCl 500 mg 11/06/24 08:15 11/07/24 05:56 Vancomycin Hcl 250 Mg Oral Capsule PO 500 mg Q6HR KEVIN Administration Radiology Results: ITS Impressions Abdomen/Pelvis CT 11/04/24 12:36 IMPRESSION: 1. No evidence of bowel perforation. 2. Persistent severe pancolitis. 3. New small scattered ascites. 4. New small pleural effusions and significant bibasilar atelectasis. Renal Ultrasound 11/04/24 19:07 Impression: Simple appearing left renal cyst. No significant medical renal disease or obstruction Abdomen X-Ray 11/05/24 16:02 Impression: 1. Findings concerning for small bowel obstruction. CT is suggested Chest/Abdomen/Pelvis CT 11/05/24 17:04 IMPRESSION: 1. Diffuse colitis detailed above, correlate for underlying pseudomembranous colitis. No perforation or abscess. Follow-up recommended to assess. 2. CHF with superimposed probable bronchopneumonia. 3. Incidental findings above. Contrast-enhanced MRI recommended Chest X-Ray 11/06/24 12:01 IMPRESSION: 1. Decreased lung volumes with small bilateral pleural effusions and associated bibasilar atelectasis and/or pneumonia. 2. Haustral fold thickening along the visualized colon suspicious for colitis. Head CT 09/22/25 12:46 Impression: 1.No acute intracranial abnormality. Labs Labs: Laboratory Results - last 24 hr 11/06/24 11/06/24 11/06/24 08:19 11:15 16:10 WBC RBC Hgb Hct MCV MCH MCHC RDW Plt Count MPV Immature Gran % (Auto) Neut % (Auto) Lymph % (Auto) [place] % (Auto) Eos % (Auto) Baso % (Auto) Lymph # (Auto) [place] # (Auto) Eos # (Auto) Baso # (Auto) Abs Immat Gran (auto) Absolute Neuts (auto) Absolute Nucleated RBC Nucleated RBC % PT 22.6 H INR 2.0 APTT Sodium 126 L Potassium 4.3 Chloride 95 L Carbon Dioxide 17 L Anion Gap 14 H BUN 67 H Creatinine 4.18 H Estim Creat Clear Calc 10 Estimated GFR 10 L Glucose 160 H Lactic Acid 2.1 H 0.9 Calcium 7.1 L Phosphorus Magnesium Total Bilirubin 1.1 AST 81 H ALT 31 Alkaline Phosphatase 123 Lactate Dehydrogenase 268 H C-Reactive Protein 16.2 H NT-Pro-B Natriuret Pep 3410 H Total Protein 5.6 L Albumin 3.1 L Procalcitonin 4.9 Stool Neutral Fats Hep Bs Antigen Hep Bs Antibody Hep B Core Total Ab Ref Lab Test Name Ref Lab Test Result 11/06/24 11/07/24 11/07/24 17:20 04:35 04:35 WBC 18.5 H RBC 3.70 L Hgb 11.6 L Hct 33.0 L MCV 89.2 D MCH 31.4 MCHC 35.2 RDW 13.0 Plt Count 370 MPV 9.4 Immature Gran % (Auto) 4.5 H Neut % (Auto) 83.0 H Lymph % (Auto) 6.2 L [place] % (Auto) 5.5 Eos % (Auto) 0.3 Baso % (Auto) 0.5 Lymph # (Auto) 1.15 [place] # (Auto) 1.0 H Eos # (Auto) 0.1 Baso # (Auto) 0.1 Abs Immat Gran (auto) 0.83 H Absolute Neuts (auto) 15.3 H Absolute Nucleated RBC 0.000 Nucleated RBC % 0.0 PT 23.6 H INR 2.1 APTT 37.1 H Sodium 124 L Potassium 3.9 Chloride 92 L Carbon Dioxide 17 L Anion Gap 15 H BUN 69 H Creatinine 3.94 H Estim Creat Clear Calc 10 Estimated GFR 11 L Glucose 196 H Lactic Acid Calcium 6.6 L Phosphorus 5.5 H Magnesium 1.7 Total Bilirubin 0.7 AST 63 H ALT 29 Alkaline Phosphatase 114 Lactate Dehydrogenase 262 H C-Reactive Protein NT-Pro-B Natriuret Pep Total Protein 5.0 L 5.0 L Albumin 2.6 L Procalcitonin Stool Neutral Fats Cancelled Hep Bs Antigen Negative Hep Bs Antibody Positive Hep B Core Total Ab Cancelled Ref Lab Test Name Cancelled Ref Lab Test Result Cancelled 11/07/24 04:36 WBC RBC Hgb Hct MCV MCH MCHC RDW Plt Count MPV Immature Gran % (Auto) Neut % (Auto) Lymph % (Auto) [place] % (Auto) Eos % (Auto) Baso % (Auto) Lymph # (Auto) [place] # (Auto) Eos # (Auto) Baso # (Auto) Abs Immat Gran (auto) Absolute Neuts (auto) Absolute Nucleated RBC Nucleated RBC % PT INR APTT Sodium Potassium Chloride Carbon Dioxide Anion Gap BUN Creatinine Estim Creat Clear Calc Estimated GFR Glucose Lactic Acid 0.9 Calcium Phosphorus Magnesium Total Bilirubin AST ALT Alkaline Phosphatase Lactate Dehydrogenase C-Reactive Protein NT-Pro-B Natriuret Pep Total Protein Albumin Procalcitonin Stool Neutral Fats Hep Bs Antigen Hep Bs Antibody Hep B Core Total Ab Ref Lab Test Name Ref Lab Test Result
[2024-11-07] MEDS: PERFLUTREN LIPID MICROSPHERES 1.5 ML VIAL DILUTED TO 10 ML TOTAL VOLUME IV PUSH (09:37)
--- NOTE | 2024-11-07 09:37 | IVDEFINITY ---
Prior to administration of IV Definity the patient was educated on the risks and benefits of the imaging enhancing agent including potential adverse side effects. The patient verbalized understanding. Allergies were verified. No exclusion criteria were identified and at least one of the following inclusion criteria were met: 1) physician request, 2) patient technically difficult to image (per the [place] [employer] guidelines of two or more segments not discernable within the apical view), or 3) questionable left ventricular function. ?
--- NOTE | 2024-11-07 09:45 | P.PNNP_ITS ---
Progress Note: A&P Assessment and Plan (1) Acute kidney injury: Code(s): N17.9 - Acute kidney failure, unspecified Status: Acute Assessment and Plan: * as noted by admission labs (creatinine of 3.03mg/dL) * creatinine normal 2 days prior to admission * baseline creatinine runs ~ 0.9 - 1.1mg/dL * suspect multifactorial etiology: * prerenal factors * infection/early sepsis (diverticulitis/colitis) * contrast exposure (CT of A/P on 11/01) * relative hypotension on presentation * JAMIE-I/diuretic use prior to admission * urinary retention(?) - difficulty urinating on admission so gamble catheter placed * other (?) * off IVFs due to concerns for volume overload * evaluation to date noted: * renal ultrasound without obstruction * urine electrolytes prerenal * urine eosinophils negative * CPK normal * mild proteinuria * holding lisinopril and spironolactone * remains at risk for FUR GLAZER/hemodialysis * still somewhat responsive to diuretic therapy * follow trend of repeat labs and UOP (2) Pancolitis: Code(s): K52.9 - Noninfective gastroenteritis and colitis, unspecified Status: Acute Assessment and Plan: * as noted by CT imaging to date: * CT of C/A/P (11/05): Diffuse colitis detailed above, correlate for underlying pseudomembranous colitis. No perforation or abscess * CT of A/P (11/04): No evidence of bowel perforation; persistent severe pancolitis * CT of A/P (11/03): Interval progression of radiographically uncomplicated selby colitis which could be infectious, inflammatory or less likely ischemic in etiology * CT of A/P (11/01): Sigmoid diverticulitis. No perforation or abscess * follow culture data * follow trend of WBC * on antibiotics (3) Acute hypoxic respiratory failure: Code(s): J96.01 - Acute respiratory failure with hypoxia Status: Acute Assessment and Plan: * fluctuating since admission * multifactorial etiology: * bilateral pleural effusions * atelectasis * fluid overload * atrial flutter with rapid ventricular response * pancolitis * possible pneumonia * diuresis as tolerated * antibiotics for possible pneumonia * Pulmonary following with recommendations noted * follow respiratory status (4) Metabolic acidosis: Code(s): E87.20 - Acidosis, unspecified Status: Acute Assessment and Plan: * due to DONOVAN/ARF and GI symptoms * fluctuating lactic acid levels noted * bicarb IVFs not being given due to concerns about fluid overload * on oral sodium bicarbonate * follow repeat labs (5) Hyponatremia: Code(s): E87.1 - Hypo-osmolality and hyponatremia Status: Acute Assessment and Plan: * as noted on admission * possible chronic component -- sodium seems to run 129 - 136mmol/L since 2021 * presumably worsen by DONOVAN/ARF and prerenal factors * mild improvement s/p IVF resuscitation * follow trend of sodium (6) Atrial flutter: Code(s): I48.92 - Unspecified atrial flutter Status: Acute Assessment and Plan: * as noted by events early on 11/05 * attempting rate control strategy * Cardiology recommendations noted * started on metoprolol * on IV amiodarone (temporary measure) * check Echo (7) Elevated troponin: Code(s): R79.89 - Other specified abnormal findings of blood chemistry Status: Acute Assessment and Plan: * due to DONOVAN versus atrial fluttter with RVR * trend noted * Cardiology already following (8) Hypertension: Code(s): I10 - Essential (primary) hypertension Status: Chronic Assessment and Plan: * reasonable control * holding JAMIE-I and diuretics due to #1 * however, may need further diuresis given #3 * follow trend of hemodynamics Will continue to follow. L Subjective Date/time seen: 11/07/24 09:45 Interval history: Follow-up for acute kidney injury/acute renal failure. Renal function/creatinine relatively stable if a tad better by recent testing; she states she does feel better today in general; reports improvement in breathing/respiratory status along with less abdominal pain/discomfort; spontaneous conversion to NSR overnight; no other acute events overnight or earlier this morning. Exam 2 Narrative: General: elderly but WD/WN female in NAD Heart: tachycardic, normal S1 and S2; no rub Lungs: coarse and decreased at bases Abdomen: soft, mild distension with +TTP, positive bowel sounds Extremities: no cyanosis or clubbing; no edema Skin: warm and intact Objective Data Vital Signs Vital Signs: Vital Signs Temp Pulse Resp BP Pulse Ox O2 Del Method O2 Flow Rate 11/07/24 09:00 97.8 F 73 23 H 139/62 95 11/07/24 08:43 88 20 98 High Flow Therapy with Na 40 11/07/24 08:08 93 11/07/24 08:03 94 11/07/24 08:00 94 146/55 H 11/07/24 08:00 97 11/07/24 08:00 97.9 F 94 18 146/55 H 95 11/07/24 06:00 95 11/07/24 06:00 98 160/58 H 11/07/24 05:52 98 160/58 H 92 11/07/24 04:55 97 138/57 L 11/07/24 04:00 97 11/07/24 03:57 97.6 F 95 18 138/57 L 93 11/07/24 02:00 99 11/07/24 01:55 99 148/58 H 11/07/24 01:54 99 18 148/58 H 91 11/07/24 00:18 101 H 150/61 H 11/07/24 00:18 101 H 150/61 H 11/07/24 00:09 101 H 150/61 H 11/07/24 00:00 100 11/07/24 00:00 97.6 F 100 20 150/61 H 97 11/06/24 22:00 104 H 11/06/24 22:00 104 H 105/58 L 11/06/24 21:53 104 H 20 105/58 L 90 11/06/24 20:00 156 H 11/06/24 20:00 98.1 F 156 H 24 H 131/62 94 11/06/24 18:00 153 H 111/62 11/06/24 18:00 153 H 11/06/24 18:00 98.0 F 151 H 24 H 111/67 95 11/06/24 16:00 149 H 116/57 L 11/06/24 16:00 150 H 11/06/24 16:00 97.8 F 149 H 26 H 116/57 L 93 11/06/24 14:39 151 H 11/06/24 14:39 151 H 11/06/24 14:00 152 H 11/06/24 14:00 151 H 11/06/24 12:48 149 H 20 92 High Flow Therapy with Na 40 11/06/24 12:00 152 H 151/89 H 11/06/24 12:00 98.3 F 52 L 28 H 151/89 H 93 11/06/24 12:00 144 H 09/22/25 11:53 153 H 11/06/24 11:50 149 H 20 92 High Flow Therapy with Na 40 11/06/24 11:48 153 H Intake/Output Intake/Output: Intake & Output 11/04/24 11/05/24 11/06/24 11/07/24 23:59 23:59 23:59 23:59 Intake Total 1300 306.9 754.3 489.9 Output Total 091 414 0512 500 Balance 650 -493.1 -645.7 -10.1 Meds/Results Medications: Active Medications Generic Name Dose Route Start Last Admin Trade Name Freq PRN Reason Stop Dose Admin Acetaminophen 650 mg 11/06/24 12:18 11/07/24 05:56 Acetaminophen 325 Mg Tablet PO 650 mg Q4H PRN Administration Headache Alprazolam 0.25 mg 11/03/24 19:16 11/06/24 00:11 Alprazolam (*Crx) 0.25 Mg Tablet PO 0.25 mg QHS PRN Administration Anxiety Apixaban 5 mg 11/05/24 21:00 11/06/24 20:51 Apixaban 5 Mg Tablet PO 5 mg On Hold: 11/07/24 09:00 Q12HR KEVIN Administration Resume: 11/09/24 09:00 Comment: On hold until after thoracentesis and cardiology ok's restart. Cyclosporine 1 drop 11/03/24 21:00 11/07/24 08:04 Cyclosporine 0.4 Ml Ophth Solution EACH EYE 1 drop Q12HR KEVIN Administration Digoxin 250 mcg 11/06/24 10:45 11/07/24 08:08 Digoxin Inj 250 Mcg/Ml 2 Ml Amp (*Bkc) IV PUSH 250 mcg DAILY KEVIN Administration Piperacillin Sod/Tazobactam 50 mls @ 100 mls/hr 11/03/24 20:00 11/07/24 11:32 Sod 2.25 gm/ Sodium Chloride IVPB 100 mls/hr Q8H KEVIN Administration Amiodarone HCl/Dextrose 360 mg in 200 mls @ 16.667 mls/hr 11/05/24 17:20 11/07/24 10:00 Nexterone 360 Mg/D5w 200 Ml IV CONT 0.5 mg/min .Q12H KEVIN 16.67 mls/hr 0.5 MG/MIN Infusion Metoprolol Tartrate 25 mg 11/07/24 09:00 11/07/24 08:03 Metoprolol Tartrate 25 Mg Tablet PO 25 mg Q8HR KEVIN Administration Miscellaneous Information 0 each 11/03/24 00:01 11/05/24 06:18 Terbinafine Takes For 7 Days Out Of The Month So When Is Next Dose Due??? XX 12/03/24 00:00 Not Given CLARIFY KEVIN Simvastatin 20 mg 11/04/24 09:00 11/07/24 08:02 Simvastatin 20 Mg Tablet PO 20 mg DAILY KEVIN Administration Sodium Bicarbonate 650 mg 11/05/24 17:00 11/07/24 08:02 Sodium Bicarbonate Tab 650 Mg Tablet PO 650 mg BID KEVIN Administration Sodium Chloride 10 ml 11/06/24 22:00 11/07/24 05:57 Central Line Flush IV PUSH 10 ml Q8HR KEVIN Administration Sodium Chloride 10 ml 11/06/24 14:29 Central Line Flush IV PUSH PRN PRN with TPN bag changes Sodium Chloride 20 ml 11/06/24 14:29 Central Line Flush IV PUSH PRN PRN after blood draws Terbinafine HCl 250 mg 11/04/24 09:00 Terbinafine Hcl 250 Mg Tablet PO DAILY KEVIN Trazodone HCl 50 mg 11/03/24 21:00 11/06/24 20:51 Trazodone Hcl 50 Mg Tablet PO 50 mg QHS KEVIN Administration Vancomycin HCl 500 mg 11/06/24 08:15 11/07/24 11:32 Vancomycin Hcl 250 Mg Oral Capsule PO 500 mg Q6HR KEVIN Administration Radiology Results: ITS Impressions Abdomen/Pelvis CT 11/04/24 12:36 IMPRESSION: 1. No evidence of bowel perforation. 2. Persistent severe pancolitis. 3. New small scattered ascites. 4. New small pleural effusions and significant bibasilar atelectasis. Renal Ultrasound 11/04/24 19:07 Impression: Simple appearing left renal cyst. No significant medical renal disease or obstruction Abdomen X-Ray 11/05/24 16:02 Impression: 1. Findings concerning for small bowel obstruction. CT is suggested Chest/Abdomen/Pelvis CT 11/05/24 17:04 IMPRESSION: 1. Diffuse colitis detailed above, correlate for underlying pseudomembranous colitis. No perforation or abscess. Follow-up recommended to assess. 2. CHF with superimposed probable bronchopneumonia. 3. Incidental findings above. Contrast-enhanced MRI recommended Chest X-Ray 11/06/24 12:01 IMPRESSION: 1. Decreased lung volumes with small bilateral pleural effusions and associated bibasilar atelectasis and/or pneumonia. 2. Haustral fold thickening along the visualized colon suspicious for colitis. Head CT 11/06/24 12:46 Impression: 1.No acute intracranial abnormality. Labs Labs: Laboratory Tests 11/07/24 04:35 11/07/24 04:35 PT 23.6 H INR 2.1 Calcium 6.6 L Phosphorus 5.5 H Magnesium 1.7 Total Bilirubin 0.7 AST 63 H ALT 29 Alkaline Phosphatase 114 Lactate Dehydrogenase 262 H Total Protein 5.0 L Albumin 2.6 L Microbiology 11/06/24 15:18 Urine - Unspecified Urine Microbiology Comment - Final Not Reportable 11/03/24 14:38 Blood Blood Culture - Preliminary 11/03/24 14:47 Blood Blood Culture - Preliminary
--- NOTE | 2024-11-07 11:02 | PCOTNOTE ---
Per RN hold therapy this date, and attempt back tomorrow after patient has procedure.
[2024-11-07 14:08] LABS: Albumin 1.9 g/dL (2.9-4.4); Alpha-1-Globulin 0.5 g/dL (0.0-0.4); Alpha-2-Globulin 1.2 g/dL (0.4-1.0); Gamma Globulin 0.4 g/dL (0.4-1.8)
--- NOTE | 2024-11-07 14:32 | PC.NURSE ---
On 11/06/24, the PLAST[employer] J[employer] BUILDER, [Eulalio Quijano ], provided care and completed [facility] documentation on this patient. I have reviewed the PLASTIC J[employer]TURE BUILDER's documentation and agree with the findings.
--- NOTE | 2024-11-07 14:46 | PCPTNOTE ---
Attempted PT evaluation, pt needing thoracentesis prior to PT treatment. Will follow.
--- NOTE | 2024-11-07 17:38 | PC.NURSE ---
On 11/07/24, the HOGSHEAD SALVAGE, [Eulalio Quijano ], provided care and completed [facility] documentation on this patient. I have reviewed the HOGSHEAD SALVAGE's documentation and agree with the findings.
[2024-11-08] VITALS (20 sets, daily range): BP systolic 136–148; BP diastolic 47–63; PULSE 58–113; RESP 18–24; TEMP 36.4–36.6; O2SAT 91–98
[2024-11-08] MEDS: PIPERACILLIN/TAZOBACTAM SOD 2.25 GM in SODIUM CHLORIDE 0.9% IV 50 ML 100 ML IVPB ×4 (04:51→23:50)
[2024-11-08] MEDS: VANCOMYCIN HCL 250 MG ORAL CAPSULE 500 MG PO ×4 (05:44→23:01)
[2024-11-08] MEDS: METOPROLOL TARTRATE 25 MG TABLET PO (05:44)
[2024-11-08] MEDS: CENTRAL LINE FLUSH 10 ML IV PUSH ×3 (05:44→21:39)
[2024-11-08 06:00] LABS: Hematocrit 33.5 % (37.0-47.0); Hemoglobin 11.6 g/dL (12.0-15.0); Immature Granulocyte Percent A 3.2 % (0-0.5); Lymphocytes Absolute Auto 1.07 K/mm3 (0.9-3.2); Mean Corpuscular HGB Conc 34.6 g/dl (32-36); Mean Corpuscular Hemoglobin 30.8 pg (26-34); Mean Corpuscular Volume 88.9 fl (80-100); Nucleated Red Blood Cells Absolute Auto 0.000 K/mm3 (0.0-0.012); Nucleated Red Blood Cells Perc 0.0 % (0.0-0.2); Platelet Count Result 374 k/mm3 (150-375); Red Blood Count 3.77 M/mm3 (4.2-5.4); White Blood Count 16.4 K/mm3 (4.5-10.0)
[2024-11-08 06:11] LABS: INR 1.6; Prothrombin Time 18.8 Seconds (11.1-14.7)
[2024-11-08 06:12] LABS: Partial Thromboplastin Time 30.1 Seconds (22.3-36.8)
[2024-11-08 06:23] LABS: Alanine Aminotransferase 28 U/L (6-35); Albumin Level 2.6 g/dL (3.5-5.1); Alkaline Phosphatase 127 U/L (38-126); Anion Gap 14 mmol/L (4-12); Aspartate Amino Transferase 49 U/L (14-36); Bilirubin,Total 0.6 mg/dL (0.2-1.3); Blood Urea Nitrogen 78 mg/dL (7-17); Calcium 7.1 mg/dL (8.4-10.2); Carbon Dioxide 16 mmol/L (22-30); Chloride 92 mmol/L (98-107); Glucose 108 mg/dL (65-110); Magnesium 1.7 mg/dL (1.6-2.3); Potassium 3.9 mmol/L (3.4-5.0); Sodium 122 mmol/L (137-145); Total Protein 5.2 g/dL (6.3-8.2)
[2024-11-08 06:39] LABS: Estimated CRCL calculation 11 ml/min; Estimated Glomerular Filt Rate 12
[2024-11-08 07:09] LABS: Hep B Core Ab, Total Negative (Negative)
[2024-11-08 07:54] LABS: CRP 12.5 mg/dL (<1.0)
--- NOTE | 2024-11-08 07:55 | P.PNIM_ITS ---
Progress Note: A&P Assessment and Plan (1) Colitis: Code(s): K52.9 - Noninfective gastroenteritis and colitis, unspecified Status: Acute Assessment and Plan: According to the patient, she was completely healthy until last Wednesday. On 11/01/2024, the patient started with abdominal pain, came to the ED, and was diagnosed with diverticulitis and discharged with outpatient antibiotics. On , the patient began to decline and returned on Wednesday. The patient was admitted in the setting of colitis. The patient had multiple episodes of diarrhea. Patient has a new onset of pleural effusion, AFib with RVR, and DONOVAN. Currently, Eliquis is on hold for a possible thoracentesis scheduled for tomorrow. Patient cardioversion has been canceled due to sinus rhythm. Patient is presently on amiodarone drip and metoprolol 25 mg p.o. q.8 hours and digoxin 250 mcg IV q.d.. Patient is currently on Zosyn and oral vancomycin for colitis and possible C diff. The patient's C. diff was not tested, but her WBC has been trending down. Abd Xray this morning suggestive of SBO CT AP stat showed Pseudomembranous colitis Continue ZOsyn and PO vancomycin 500 Po q6 monitor leukocytosis, and WBC monitor closely (2) Acute kidney injury: Code(s): N17.9 - Acute kidney failure, unspecified Status: Acute Assessment and Plan: Infection vs Contrast related injury vs prerenal BMP in the morning Continue to monitor urine output patient received IV contrast on 11/01/2024, prior to this study her BUN and creatinine were normal Nephrology following (3) Anxiety: Code(s): F41.9 - Anxiety disorder, unspecified Status: Acute Assessment and Plan: Restart home Xanax (4) Hyperlipidemia: Qualifiers: Hyperlipidemia type: unspecified Qualified Code(s): E78.5 - Hyperlipide deondre, unspecified Code(s): E78.5 - Hyperlipidemia, unspecified Status: Acute Assessment and Plan: Restart home statin (5) Hypertension: Code(s): I10 - Essential (primary) hypertension Status: Chronic Assessment and Plan: Holding home antihypertensives due to severe dehydration monitor blood pressures and restart once indicated Plan Atrial flutter with RVR Now on Amiodarone, metoprolol and Digoxin Monitor HR ELiquis on hold for possible thoracentesis tomorrow Cardiology following Pseudomembranous colitis Continue PO Vancomycin and Zosyn IV gentle rehydration monitor Hyponatremia Na 126 will restart IVF pending clinical course Acute hypoxemic respiratory failure From fluid overload vs pneumonia r/o CHF ECHO from 10/08 normal left ventricular function CT chest showed bilateral pleural effusion with possibel consolidation Continue Zosyn, follow up cultures Thoracentesis performed on 09/24 Pending pleural studies Following pulmonology recommendation DVT prophylaxis on Priscila Barr on hold Subjective Date/time seen: 11/08/24 07:55 Interval history: Patient underwent thoracentesis. Patient is tired but she just returned from the procedure. Patient WBCs are trending down. Will continue Zosyn and oral vancomycin. Advised to continue physical therapy Review of Systems Review of Systems: 12 systems were reviewed and are negativ e except for as per HPI. Exam Narrative: General: in mild distress due to pain, appears stated age. HEENT: normocephalic, atraumatic. Mucous membranes dry. EOMI, PERRLA, bilateral sclera anicteric, no conjunctival injection. Neck supple without JVD, lymphadenopathy, or bruit. Respiratory: clear to ascultation bilaterally. No rales/rhonic/wheezes. Cardiovascular: Regular rate and rhythm, normal S1-S2 upon ascultation. No murmurs, rubs, or clicks. PMI is nondisplaced, capillary refill less than 3 second. Abdomen: Soft, distended, tender to light palpation, guarding present. Bowel sounds present to all four quadrants. Extremities: No cyanosis, clubbing, or edema present. Pulses are palpable 2/2. Active ROM to all four extremities. Neuro: Alert and orientated x 4. PERRLA. Cranial nerves 2-12 intact without focal deficit. Skin: Warm, dry, and intact, without rash, erythema, or lesion. Psych: pleasant, cooperative, normal speech, normal affect, no hallucinations, no dysarthia Objective Data Vital Signs Vital Signs: Vital Signs - 24 hr 11/07/24 08:00 11/07/24 08:00 11/07/24 08:00 Temperature 97.9 F Pulse Rate 94 97 Respiratory Rate 18 Blood Pressure 146/55 H Pulse Oximetry 95 90 Oxygen Delivery High Flow Therapy with Na Oxygen Flow Rate 40 Fraction of Inspired Oxygen 70 11/07/24 08:00 11/07/24 08:03 11/07/24 08:08 Temperature Pulse Rate 94 94 93 Respiratory Rate Blood Pressure 146/55 H Pulse Oximetry Oxygen Delivery Oxygen Flow Rate Fraction of Inspired Oxygen 11/07/24 08:43 11/07/24 10:00 11/07/24 10:00 Temperature 97.8 F Pulse Rate 88 73 75 Respiratory Rate 20 23 H Blood Pressure 139/62 Pulse Oximetry 98 95 Oxygen Delivery High Flow Therapy with Na Oxygen Flow Rate 40 Fraction of Inspired Oxygen 70 11/07/24 10:00 11/07/24 11:59 11/07/24 12:00 Temperature 97.5 F L Pulse Rate 73 81 82 Respiratory Rate 22 H Blood Pressure 139/62 149/53 H 149/53 H Pulse Oximetry 90 Oxygen Delivery Oxygen Flow Rate Fraction of Inspired Oxygen 11/07/24 12:00 11/07/24 12:00 11/07/24 12:07 Temperature Pulse Rate 82 83 Respiratory Rate Blood Pressure 149/53 H Pulse Oximetry 92 Oxygen Delivery High Flow Therapy with Na Oxygen Flow Rate 40 Fraction of Inspired Oxygen 70 11/07/24 14:00 11/07/24 15:39 11/07/24 16:00 Temperature 97.4 F L Pulse Rate 83 86 86 Respiratory Rate 20 Blood Pressure 129/65 Pulse Oximetry 91 Oxygen Delivery Oxygen Flow Rate Fraction of Inspired Oxygen 11/07/24 16:00 11/07/24 16:00 11/07/24 18:00 Temperature Pulse Rate 84 74 Respiratory Rate Blood Pressure Pulse Oximetry 91 Oxygen Delivery High Flow Therapy with Na Oxygen Flow Rate 40 Fraction of Inspired Oxygen 70 11/07/24 20:00 11/07/24 20:42 11/07/24 21:11 Temperature Pulse Rate 80 82 81 Respiratory Rate 20 18 Blood Pressure 149/55 H Pulse Oximetry 92 90 Oxygen Delivery High Flow Therapy with Na Oxygen Flow Rate 40 Fraction of Inspired Oxygen 70 11/07/24 21:14 11/07/24 22:00 11/08/24 00:00 Temperature 97.5 F L Pulse Rate 81 81 78 Respiratory Rate 18 Blood Pressure 136/54 L Pulse Oximetry 94 Oxygen Delivery Oxygen Flow Rate Fraction of Inspired Oxygen 11/08/24 00:00 11/08/24 02:00 11/08/24 04:00 Temperature Pulse Rate 77 72 72 Respiratory Rate Blood Pressure Pulse Oximetry Oxygen Delivery Oxygen Flow Rate Fraction of Inspired Oxygen 11/08/24 04:00 11/08/24 05:44 11/08/24 06:00 Temperature 97.6 F Pulse Rate 72 75 78 Respiratory Rate 18 Blood Pressure 140/47 L Pulse Oximetry 92 Oxygen Delivery Oxygen Flow Rate Fraction of Inspired Oxygen Intake/Output Intake/Output: Intake & Output 11/05/24 11/06/24 11/07/24 11/08/24 23:59 23:59 23:59 23:59 Intake Total 306.9 754.3 1175.1 Output Total 800 1400 900 450 Balance -493.1 -645.7 275.1 -450 Meds/Results Medications: Active Medications Generic Name Dose Route Start Last Admin Trade Name Freq PRN Reason Stop Dose Admin Acetaminophen 650 mg 11/06/24 12:18 11/07/24 05:56 Acetaminophen 325 Mg Tablet PO 650 mg Q4H PRN Administration Headache Alprazolam 0.25 mg 11/03/24 19:16 11/06/24 00:11 Alprazolam (*Crx) 0.25 Mg Tablet PO 0.25 mg QHS PRN Administration Anxiety Apixaban 5 mg 11/05/24 21:00 11/06/24 20:51 Apixaban 5 Mg Tablet PO 5 mg On Hold: 11/07/24 09:00 Q12HR KEVIN Administration Resume: 11/09/24 09:00 Comment: On hold until after thoracentesis and cardiology ok's restart. Cyclosporine 1 drop 11/03/24 21:00 11/07/24 21:14 Cyclosporine 0.4 Ml Ophth Solution EACH EYE 1 drop Q12HR KEVIN Administration Digoxin 250 mcg 11/06/24 10:45 11/07/24 08:08 Digoxin Inj 250 Mcg/Ml 2 Ml Amp (*Bkc) IV PUSH 250 mcg DAILY KEVIN Administration Piperacillin Sod/Tazobactam 50 mls @ 100 mls/hr 11/03/24 20:00 11/08/24 04:51 Sod 2.25 gm/ Sodium Chloride IVPB 100 mls/hr Q8H KEVIN Administration Metoprolol Tartrate 25 mg 11/07/24 09:00 11/08/24 05:44 Metoprolol Tartrate 25 Mg Tablet PO 25 mg Q8HR KEVIN Administration Simvastatin 20 mg 11/04/24 09:00 11/07/24 08:02 Simvastatin 20 Mg Tablet PO 20 mg DAILY KEVIN Administration Sodium Bicarbonate 650 mg 11/05/24 17:00 11/07/24 17:15 Sodium Bicarbonate Tab 650 Mg Tablet PO 650 mg BID KEVIN Administration Sodium Chloride 10 ml 11/06/24 22:00 11/08/24 05:44 Central Line Flush IV PUSH 10 ml Q8HR KEVIN Administration Sodium Chloride 10 ml 11/06/24 14:29 Central Line Flush IV PUSH PRN PRN with TPN bag changes Sodium Chloride 20 ml 11/06/24 14:29 Central Line Flush IV PUSH PRN PRN after blood draws Trazodone HCl 50 mg 11/03/24 21:00 11/07/24 21:13 Trazodone Hcl 50 Mg Tablet PO 50 mg QHS KEVIN Administration Vancomycin HCl 500 mg 11/06/24 08:15 11/08/24 05:44 Vancomycin Hcl 250 Mg Oral Capsule PO 500 mg Q6HR KEVIN Administration Radiology Results: ITS Impressions Abdomen/Pelvis CT 11/04/24 12:36 IMPRESSION: 1. No evidence of bowel perforation. 2. Persistent severe pancolitis. 3. New small scattered ascites. 4. New small pleural effusions and significant bibasilar atelectasis. Renal Ultrasound 11/04/24 19:07 Impression: Simple appearing left renal cyst. No significant medical renal disease or obstruction Abdomen X-Ray 11/05/24 16:02 Impression: 1. Findings concerning for small bowel obstruction. CT is suggested Chest/Abdomen/Pelvis CT 11/05/24 17:04 IMPRESSION: 1. Diffuse colitis detailed above, correlate for underlying pseudomembranous colitis. No perforation or abscess. Follow-up recommended to assess. 2. CHF with superimposed probable bronchopneumonia. 3. Incidental findings above. Contrast-enhanced MRI recommended Chest X-Ray 11/06/24 12:01 IMPRESSION: 1. Decreased lung volumes with small bilateral pleural effusions and associated bibasilar atelectasis and/or pneumonia. 2. Haustral fold thickening along the visualized colon suspicious for colitis. Head CT 11/06/24 12:46 Impression: 1.No acute intracranial abnormality. Labs Labs: Laboratory Results - last 24 hr 11/05/24 11/07/24 11/08/24 04:18 04:35 05:48 WBC 16.4 H RBC 3.77 L Hgb 11.6 L Hct 33.5 L MCV 88.9 MCH 30.8 MCHC 34.6 RDW 13.0 Plt Count 374 MPV 9.3 Immature Gran % (Auto) 3.2 H Neut % (Auto) 84.1 H Lymph % (Auto) 6.5 L [place] % (Auto) 5.2 Eos % (Auto) 0.5 Baso % (Auto) 0.5 Lymph # (Auto) 1.07 [place] # (Auto) 0.9 H Eos # (Auto) 0.1 Baso # (Auto) 0.1 Abs Immat Gran (auto) 0.53 H Absolute Neuts (auto) 13.8 H Absolute Nucleated RBC 0.000 Nucleated RBC % 0.0 PT 18.8 H D INR 1.6 APTT 30.1 Sodium 122 L Potassium 3.9 Chloride 92 L Carbon Dioxide 16 L Anion Gap 14 H BUN 78 H Creatinine 3.78 H Estim Creat Clear Calc 11 Estimated GFR 12 L Glucose 108 Calcium 7.1 L Phosphorus 6.2 H Magnesium 1.7 Total Bilirubin 0.6 AST 49 H ALT 28 Alkaline Phosphatase 127 H C-Reactive Protein 12.5 H Total Protein 5.2 L Total Protein (PEP) 4.7 L Albumin 2.6 L Albumin (PEP) 1.9 L Globulin (PEP) 2.8 Albumin/Globulin Ratio 0.7 [id number] 0.5 H [id number] 1.2 H Beta Globulins 0.7 Gamma Globulins 0.4 PEP Comment Comment Pr Electrophoresis MSpike 0.1 H Hep B Core Total Ab Negative Quality VTE Prophylaxis VTE prophylaxis: mechanical ordered and pharmacologic ordered Hospitalist MIPS Advance Care Plan I have confirmed that the patient's Advanced Care Plan is present, code status is documented, or surrogate decision maker is listed in patient medical record.: Yes Medication Reconciliation I have utilized all available resources to obtain, update and review the patients current medications (includes all prescriptions, OTC, herbals, cannabis, and nutritional supplements).: Yes
[2024-11-08 08:04] LABS: NT Pro B Type Natriuretic Pept 3080 pg/mL (19.9-100)
[2024-11-08 08:19] LABS: Procalcitonin 2.8 ng/mL
--- NOTE | 2024-11-08 08:45 | PM.PNPUL ---
Progress Note: A&P Assessment and Plan (1) Respiratory failure with hypoxia: Code(s): J96.91 - Respiratory failure, unspecified with hypoxia Status: Acute Assessment and Plan: Patient on no previous oxygen. She presented on 11/01 and 11/03 to the ER with colitis and had room air saturations on 11/03 of 97%. She has progressive worsening oxygenation along with her acute renal failure, development of bilateral pleural effusions and is now requiring Airvo 40 L and 70% FiO2. of note ABG on 11/05/2024 on 8 L nasal cannula with a pH of 7.35/24/69. Etiology of patient's hypoxemic respiratory failure includes: Bilateral pleural effusions with adjacent atelectasis, fluid overload, atrial flutter with rapid ventricular response, pancolitis, and possible pneumonia. 11/06/24: Plan: Agree with as aggressive diuresis as tolerated by her cardiac and renal systems. Since patient is now requiring nares are recommend thoracentesis which hopefully can be performed on 11/07/2024 as she received apixaban 5 mg on 11/06 at 8:33 a.m.. Low clinical suspicion for bacterial pneumonia and agree with Zosyn for her pancolitis, day 3 today. I will send respiratory pathogen panel, urine for Legionella, urine for pneumococcal and serum mycoplasma IgM. I will initiate the patient on EzPAP for her bilateral atelectasis. Currently the patient has minimal shortness of breath but should she develop worsening work of breathing would initiate noninvasive ventilation with the AVAPS mode, rate 14, tidal volume 500, EPAP 5, minimum inspiratory pressure 6, maximal inspiratory pressure 25 and FiO2 to maintain saturations 90-94%. 11/07/24: Patient tells me she feels better today. Overall she feels like she is 25-50% back to normal. Her breathing is better, she has a cough that is improved and produces a little bit of phlegm with no hemoptysis. She has less abdominal pain and has flatus. She is afebrile. She is on Vapotherm 40 L and 70% FiO2 with saturations 91%. She is on IV amiodarone drip now in sinus at 88. Her white blood cell count is 18.5, creatinine is 3.94. Yesterday she diuresed 645 mL, cumulative she is positive 1.4 L since admission. Her weight is 74.1 kg. Plan: patient clinically improved with Zosyn, diuresis, and conversion of a flutter with RVR to sinus. remains with hypoxic respiratory failure. Agree with thoracentesis if can be safely done with an INR of 2.1. Agree with eventual diuresis, currently on hold per Nephrology. 11/08/24: Overall the patient tells me she is improving. She denies shortness of breath at rest. She says her cough and phlegm production have improved. States her abdominal tenderness is better, she has had bowel movements and flatus. She is afebrile. When I enter the room she was on Vapotherm 40 L 70% FiO2 with saturations 90%. I changed her to 15 L nasal cannula and sequentially decreased her down to 4 L nasal cannula. After 2 minutes on 4 L her saturations decreased to 89 and I increased her to 5 L nasal cannula her saturations were 91%. She is afebrile. White blood cell count 16.4, creatinine 3.78, serum bicarb 16. Her BNP has improved from 3410 on 11/06/2024 to 3080 today. Her procalcitonin has improved from 4.9 on 11/06/2024 to 2.8 today. her CRP has improved from 16.2 on 11/06/2024 to 12.5 today. Yesterday she was positive 200 and 75 mL, cumulative she is positive 1.3 L since admission. Her weight today is 76.4. Plan: patient clinically improved with Zosyn, day 6 today, diuresis, and conversion of a flutter with RVR to sinus. oxygenation improved and currently on 5 L nasal cannula. Agree with thoracentesis. Agree with eventual diuresis, currently on hold per Nephrology. Now that her oxygenation is improved hopefully can get patient out of bed to chair and start to participate in physical therapy. Discussed with Dr. Appiah. Will follow with you. Subjective Date/time seen: 11/08/24 08:45 Interval history: 11/06/2024: This is a new pulmonary consult for hypoxemic respiratory failure 78-year-old with a history of hypertension. Patient denies a history of asthma, COPD, recurrent pneumonias. She is not on any oxygen at home and checks her pulse oximetry at home and it has been 95-98%. Patient is a never smoker but was exposed to secondhand smoke from her father, from her 1st and 2nd from 1969 to 1985. 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 After 1985 she worked in a [employer]. She denies sand blasting, welding, asbestos were, professional painting, construction work, coal mining or quarry work. Patient noticed that 2 years she developed dyspnea on exertion. Two years ago she could walk 3/4 of a block. 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 11/01 patient presented to the emergency department with abdominal pain and Room air saturations were 98%. CT scan of the abdomen showed diverticulitis with no abscess. Her white blood cell count was 12.8. Her creatinine was 0.99. She was discharged on Augmentin. 11/03/2024 patient presented to the emergency room with abdominal pain. Her blood pressure is 128/49, heart rate 87, respirations 26, room air saturations 97%. White blood cell count was 21.8, creatinine was 3.03, bands were 20%. Lipase less than 10. CT scan of the abdomen showed progression of her pancolitis with no pleural effusions. Patient was started on Zosyn. 11/04/2024: At 8:00 p.m. she required 2 L nasal cannula saturations 92%. Patient developed atrial flutter treated with diltiazem. 11/05/2024 CT scan chest abdomen and pelvis showed moderate bilateral pleural effusions with atelectasis. At 11:45 a.m. she required 8 L nasal cannula saturations 90%. ABG on 8 L nasal cannula 7.35. At 9:00 p.m. she required 8 L with saturations 90%. At 11:00 p.m. she required Airvo 40 L and 70% with saturations 90%. Cardiology consulted and patient initiated on amiodarone and diltiazem discontinued. 11/06/2024: The patient tells me today that her shortness of breath is at her baseline and this is the same as yesterday. She developed a cough today with no phlegm and no hemoptysis. She denies fever. She tells me her abdominal pain is better today than yesterday. She has had flatus today. Earlier today she received IV metoprolol and IV digoxin for atrial flutter with fast heart rate. Currently her heart rate is 149 and regular and she is being restarted on amiodarone drip. Patient remains on Airvo 40 L, 70% FiO2 with saturations 92%. Her white blood cell count is 28.3, creatinine is 4.18. Chest x-ray today compared with 11/04/2024 shows decreased lung volumes with small bilateral pleural effusions with bibasilar infiltrates. 11/07/24: Patient tells me she feels better today. Overall she feels like she is 25-50% back to normal. Her breathing is better, she has a cough that is improved and produces a little bit of phlegm with no hemoptysis. She has less abdominal pain and has flatus. She is afebrile. She is on Vapotherm 40 L and 70% FiO2 with saturations 91%. She is on IV amiodarone drip now in sinus at 88. Her white blood cell count is 18.5, creatinine is 3.94. Yesterday she diuresed 645 mL, cumulative she is positive 1.4 L since admission. Her weight is 74.1 kg. 11/08/24: Overall the patient tells me she is improving. She denies shortness of breath at rest. She says her cough and phlegm production have improved. States her abdominal tenderness is better, she has had bowel movements and flatus. She is afebrile. When I enter the room she was on Vapotherm 40 L 70% FiO2 with saturations 90%. I changed her to 15 L nasal cannula and sequentially decreased her down to 4 L nasal cannula. After 2 minutes on 4 L her saturations decreased to 89 and I increased her to 5 L nasal cannula her saturations were 91%. She is afebrile. White blood cell count 16.4, creatinine 3.78, serum bicarb 16. Her BNP has improved from 3410 on 11/06/2024 to 3080 today. Her procalcitonin has improved from 4.9 on 11/06/2024 to 2.8 today. her CRP has improved from 16.2 on 11/06/2024 to 12.5 today. Yesterday she was positive 200 and 75 mL, cumulative she is positive 1.3 L since admission. Her weight today is 76.4. DATA: 11/06/24: EXAMINATION: XR chest 1V portable DATE: 11/06/2024 11:34 INDICATION: Respiratory failure TECHNIQUE: frontal view of the chest was obtained. COMPARISON: Chest radiograph dated 11/04/[address] dated 11/05/2024 FINDINGS: Lung volumes are small, unchanged on the left and with interval progression of volume loss on the right. Airspace opacity at the bilateral lower lung zones with blunting at the costophrenic angles consistent with small bilateral pleural effusions and associated atelectasis and/or pneumonia. No pneumothorax or evident pulmonary edema. Heart size is normal. There is ostial fold thickening along the visualized ascending and transverse colon suggestive of colitis. IMPRESSION: 1. Decreased lung volumes with small bilateral pleural effusions and associated bibasilar atelectasis and/or pneumonia. 2. Haustral fold thickening along the visualized colon suspicious for colitis. 11/05/2024: EXAMINATION: CT chest abdomen pelvis wo con, 11/05/2024 16:20 CDT HISTORY: SBO COMPARISON: No comparisons available. FINDINGS: CT chest: No significant coronary calcification is present ([id number]) LUNGS: No tracheomalacia. No bronchiectasis. Moderate to large simple appearing bilateral pleural effusions with small basilar infiltrates. Minimal emphysematous changes. HEART AND PERICARDIUM: Mild cardiomegaly. No pericardial effusion. AORTA: Atherosclerotic changes of the aorta. MEDIASTINUM: Unremarkable. THYROID: The thyroid is unremarkable. CT abdomen: LIVER: Mild cirrhotic disease of the liver suspected. SPLEEN: Mild atrophy of the spleen.. KIDNEYS: Right Kidney: Right kidney mild hydronephrosis, no hydroureter. Left Kidney: Left kidney large simple appearing peripelvic renal cyst 5 x 6 cm. ADRENAL GLANDS: Unremarkable. PANCREAS: Moderate atrophy of the pancreas. Cystic pancreatic lesion of the body 1.5 x 1.6 cm incompletely evaluated, contrast-enhanced MRI recommended. GALLBLADDER/BILIARY: Mild distention of the gallbladder. STOMACH AND ESOPHAGUS: The stomach is decompressed. BOWEL/MESENTERY: Multiple fluid-filled loops of large bowel which appears thickened, absence of contrast limits evaluation. There is pericolonic stranding noted but no gross perforation or abscess, no pneumatosis. Appendix appears minimally thickened but there is no periappendiceal inflammation. Stranding throughout the visualized remaining mesentery. Nonspecific fluid-filled loops of small bowel, no dilated small bowel loops. RETROPERITONEUM: Unremarkable AORTA/VASCULATURE: Normal caliber aorta. FREE FLUID OR FREE AIR: Large amount of free fluid throughout the abdomen and pelvis. Small amount of free fluid in the presacral space.. CT pelvis: SOLID ORGANS/REPRODUCTIVE: Unremarkable. BLADDER: Bladder decompressed. LYMPHADENOPATHY: No lymphadenopathy. OSSEOUS STRUCTURES: No acute osseous abnormality.No suspicious lesions. OVERLYING SOFT TISSUES: Holland catheter in the bladder. IMPRESSION: 1. Diffuse colitis detailed above, correlate for underlying pseudomembranous colitis. No perforation or abscess. Follow-up recommended to assess. 2. CHF with superimposed probable bronchopneumonia. 3. Incidental findings above. Contrast-enhanced MRI recommended Review of Systems Constitutional: Constitutional: Reports no additional constitutional complaints Eyes: Eyes: Reports no additional eye complaints ENT: Reports system reviewed and no additional complaints, except as documented Cardiovascular: Cardiovascular: Reports no additional cardiovascular complaints Respiratory: Respiratory: Reports no additional respiratory complaints Gastrointestinal: Gastrointestinal: Reports no additional gastrointestinal complaints Musculoskeletal: Musculoskeletal: Reports no additional musculoskeletal complaints Neurologic: Reports system reviewed and no additional complaints, except as documented Psychiatric: Psychiatric: Reports no additional psychiatric complaints Endocrine: Endocrine: Reports no additional endocrine complaints Hematologic/Lymphatic: Hematologic/Lymphatic: Reports no additional hematologic/lymphatic complaints Allergic/Immunologic: Allergic/Immunologic: Reports no additional allergic/immunologic complaints Exam Const: General: cooperative, healthy appearing and comfortable Orientation/consciousness: oriented to person, oriented to place and oriented to time Other: No respiratory distress HENMT: Head: normal to inspection Ears: hearing grossly normal bilaterally Eyes: General: appearance normal, both eyes and all related structures Neck: Neck: normal visual inspection Chest: Chest palpation & inspection: normal inspection of the chest Resp: Effort & Inspection: normal respiratory effort and able to speak in complete sentences Auscultation: no crackles, no rales, no rhonchi, no wheezes and diminished lung sounds Other: decreased breath sounds at the bases. Cardio: Jugular venous distension: no JVD Other: sinus 73 GI: Inspection: normal to inspection Other: Tender to deep lower quadrants Skin: General skin exam: normal color Neuro: General: oriented to person, oriented to place and oriented to time Extrem: General: normal to inspection Other: No edema Psych: Appearance: grossly normal Objective Data Vital Signs Vital Signs: Vital Signs - 24 hr 11/07/24 10:00 11/07/24 10:00 11/07/24 10:00 Temperature 36.6 C Pulse Rate 73 75 73 Respiratory Rate 23 H Blood Pressure 139/62 139/62 Pulse Oximetry 95 Oxygen Delivery Oxygen Flow Rate Fraction of Inspired Oxygen 11/07/24 11:59 11/07/24 12:00 11/07/24 12:00 Temperature 36.4 C L Pulse Rate 81 82 Respiratory Rate 22 H Blood Pressure 149/53 H 149/53 H Pulse Oximetry 90 92 Oxygen Delivery High Flow Therapy with Na Oxygen Flow Rate 40 Fraction of Inspired Oxygen 70 11/07/24 12:00 11/07/24 12:07 11/07/24 14:00 Temperature Pulse Rate 82 83 83 Respiratory Rate Blood Pressure 149/53 H Pulse Oximetry Oxygen Delivery Oxygen Flow Rate Fraction of Inspired Oxygen 11/07/24 15:39 11/07/24 16:00 11/07/24 16:00 Temperature 36.3 C L Pulse Rate 86 86 84 Respiratory Rate 20 Blood Pressure 129/65 Pulse Oximetry 91 Oxygen Delivery Oxygen Flow Rate Fraction of Inspired Oxygen 11/07/24 16:00 11/07/24 18:00 11/07/24 20:00 Temperature Pulse Rate 74 80 Respiratory Rate Blood Pressure Pulse Oximetry 91 Oxygen Delivery High Flow Therapy with Na Oxygen Flow Rate 40 Fraction of Inspired Oxygen 70 11/07/24 20:42 11/07/24 21:11 11/07/24 21:14 Temperature Pulse Rate 82 81 81 Respiratory Rate 20 18 Blood Pressure 149/55 H Pulse Oximetry 92 90 Oxygen Delivery High Flow Therapy with Na Oxygen Flow Rate 40 Fraction of Inspired Oxygen 70 11/07/24 22:00 11/08/24 00:00 11/08/24 00:00 Temperature 36.4 C L Pulse Rate 81 78 77 Respiratory Rate 18 Blood Pressure 136/54 L Pulse Oximetry 94 Oxygen Delivery Oxygen Flow Rate Fraction of Inspired Oxygen 11/08/24 02:00 11/08/24 04:00 11/08/24 04:00 Temperature 36.4 C Pulse Rate 72 72 72 Respiratory Rate 18 Blood Pressure 140/47 L Pulse Oximetry 92 Oxygen Delivery Oxygen Flow Rate Fraction of Inspired Oxygen 11/08/24 05:44 11/08/24 06:00 11/08/24 08:00 Temperature 36.6 C Pulse Rate 75 78 71 Respiratory Rate 20 Blood Pressure 148/52 H Pulse Oximetry 97 Oxygen Delivery Oxygen Flow Rate Fraction of Inspired Oxygen Intake/Output Intake/Output: Intake & Output 11/05/24 11/06/24 11/07/24 11/08/24 23:59 23:59 23:59 23:59 Intake Total 306.9 754.3 1175.1 Output Total 800 1400 900 450 Balance -493.1 -645.7 275.1 -450 Meds/Results Medications: Active Medications Generic Name Dose Route Start Last Admin Trade Name Freq PRN Reason Stop Dose Admin Acetaminophen 650 mg 11/06/24 12:18 11/07/24 05:56 Acetaminophen 325 Mg Tablet PO 650 mg Q4H PRN Administration Headache Alprazolam 0.25 mg 11/03/24 19:16 11/06/24 00:11 Alprazolam (*Crx) 0.25 Mg Tablet PO 0.25 mg QHS PRN Administration Anxiety Apixaban 5 mg 11/05/24 21:00 11/06/24 20:51 Apixaban 5 Mg Tablet PO 5 mg On Hold: 11/07/24 09:00 Q12HR KEVIN Administration Resume: 11/09/24 09:00 Comment: On hold until after thoracentesis and cardiology ok's restart. Cyclosporine 1 drop 11/03/24 21:00 11/07/24 21:14 Cyclosporine 0.4 Ml Ophth Solution EACH EYE 1 drop Q12HR KEVIN Administration Digoxin 125 mcg 11/08/24 09:00 Digoxin Inj 250 Mcg/Ml 2 Ml Amp (*Bkc) IV PUSH DAILY KEVIN Piperacillin Sod/Tazobactam 50 mls @ 100 mls/hr 11/03/24 20:00 11/08/24 04:51 Sod 2.25 gm/ Sodium Chloride IVPB 100 mls/hr Q8H KEVIN Administration Metoprolol Tartrate 50 mg 11/08/24 09:00 Metoprolol Tartrate 50 Mg Tab PO BID KEVIN Simvastatin 20 mg 11/04/24 09:00 11/07/24 08:02 Simvastatin 20 Mg Tablet PO 20 mg DAILY KEVIN Administration Sodium Bicarbonate 650 mg 11/05/24 17:00 11/07/24 17:15 Sodium Bicarbonate Tab 650 Mg Tablet PO 650 mg BID KEVIN Administration Sodium Chloride 10 ml 11/06/24 22:00 11/08/24 05:44 Central Line Flush IV PUSH 10 ml Q8HR KEVIN Administration Sodium Chloride 10 ml 11/06/24 14:29 Central Line Flush IV PUSH PRN PRN with TPN bag changes Sodium Chloride 20 ml 11/06/24 14:29 Central Line Flush IV PUSH PRN PRN after blood draws Trazodone HCl 50 mg 11/03/24 21:00 11/07/24 21:13 Trazodone Hcl 50 Mg Tablet PO 50 mg QHS KEVIN Administration Vancomycin HCl 500 mg 11/06/24 08:15 11/08/24 05:44 Vancomycin Hcl 250 Mg Oral Capsule PO 500 mg Q6HR KEVIN Administration Radiology Results: ITS Impressions Abdomen/Pelvis CT 11/04/24 12:36 IMPRESSION: 1. No evidence of bowel perforation. 2. Persistent severe pancolitis. 3. New small scattered ascites. 4. New small pleural effusions and significant bibasilar atelectasis. Renal Ultrasound 11/04/24 19:07 Impression: Simple appearing left renal cyst. No significant medical renal disease or obstruction Abdomen X-Ray 11/05/24 16:02 Impression: 1. Findings concerning for small bowel obstruction. CT is suggested Chest/Abdomen/Pelvis CT 11/05/24 17:04 IMPRESSION: 1. Diffuse colitis detailed above, correlate for underlying pseudomembranous colitis. No perforation or abscess. Follow-up recommended to assess. 2. CHF with superimposed probable bronchopneumonia. 3. Incidental findings above. Contrast-enhanced MRI recommended Chest X-Ray 11/06/24 12:01 IMPRESSION: 1. Decreased lung volumes with small bilateral pleural effusions and associated bibasilar atelectasis and/or pneumonia. 2. Haustral fold thickening along the visualized colon suspicious for colitis. Head CT 11/06/24 12:46 Impression: 1.No acute intracranial abnormality. Labs Labs: Laboratory Results - last 24 hr 11/05/24 11/07/24 11/08/24 04:18 04:35 05:48 WBC 16.4 H RBC 3.77 L Hgb 11.6 L Hct 33.5 L MCV 88.9 MCH 30.8 MCHC 34.6 RDW 13.0 Plt Count 374 MPV 9.3 Immature Gran % (Auto) 3.2 H Neut % (Auto) 84.1 H Lymph % (Auto) 6.5 L [place] % (Auto) 5.2 Eos % (Auto) 0.5 Baso % (Auto) 0.5 Lymph # (Auto) 1.07 [place] # (Auto) 0.9 H Eos # (Auto) 0.1 Baso # (Auto) 0.1 Abs Immat Gran (auto) 0.53 H Absolute Neuts (auto) 13.8 H Absolute Nucleated RBC 0.000 Nucleated RBC % 0.0 PT 18.8 H D INR 1.6 APTT 30.1 Sodium 122 L Potassium 3.9 Chloride 92 L Carbon Dioxide 16 L Anion Gap 14 H BUN 78 H Creatinine 3.78 H Estim Creat Clear Calc 11 Estimated GFR 12 L Glucose 108 Calcium 7.1 L Phosphorus 6.2 H Magnesium 1.7 Total Bilirubin 0.6 AST 49 H ALT 28 Alkaline Phosphatase 127 H C-Reactive Protein 12.5 H NT-Pro-B Natriuret Pep 3080 H Total Protein 5.2 L Total Protein (PEP) 4.7 L Albumin 2.6 L Albumin (PEP) 1.9 L Globulin (PEP) 2.8 Albumin/Globulin Ratio 0.7 [id number] 0.5 H [id number] 1.2 H Beta Globulins 0.7 Gamma Globulins 0.4 PEP Comment Comment Procalcitonin 2.8 Pr Electrophoresis MSpike 0.1 H Hep B Core Total Ab Negative
--- NOTE | 2024-11-08 09:27 | PCOTNOTE ---
The patient treatment was not able to be completed. Hold per collar setter overlock today.
[2024-11-08] MEDS: SIMVASTATIN 20 MG TABLET PO (09:50)
[2024-11-08] MEDS: METOPROLOL TARTRATE 50 MG TAB PO ×2 (09:50→16:41)
[2024-11-08] MEDS: cycloSPORINE 0.4 ML OPHTH SOLUTION 1 DROP EACH EYE ×2 (09:50→21:43)
[2024-11-08] MEDS: SODIUM BICARBONATE TAB 650 MG TABLET PO ×2 (09:50→16:42)
[2024-11-08] MEDS: DIGOXIN INJ 250 MCG/ML 2 ML AMP (*BKC) 125 MCG IV PUSH (09:51)
--- NOTE | 2024-11-08 10:28 | PM.PNCARD ---
Progress Note: A&P Assessment and Plan (1) Atrial flutter: Code(s): I48.92 - Unspecified atrial flutter Status: Acute (2) Elevated troponin: Code(s): R79.89 - Other specified abnormal findings of blood chemistry Status: Acute Plan Diagnosis: Atrial flutter with RVR-converted to sinus rhythm Hypertension-not well controlled Hyperlipidemia-on statin DONOVAN Acute colitis on IV antibiotic Hyponatremia Pleural effusions- thoracentesis being planned Plan: She remains in sinus rhythm with rates less than 90s Increase metoprolol to 50 mg b.i.d. Stop digoxin given renal failure Eliquis on hold for thoracentesis today. Resume Eliquis after procedure Check and replace electrolytes to keep potassium greater than 4 and magnesium greater than 2 Lisinopril and spironolactone on hold due to DONOVAN. Monitor renal function daily Hold amlodipine to allow room in blood pressure to increase beta-christine dose Continue statin Management of other medical problems per primary team Subjective Date/time seen: 11/08/24 10:28 Interval history: Reason for encounter: A flutter with RVR Relevant history: 78-year-old female with history of hypertension, hyperlipidemia was admitted with abdominal pain secondary to colitis. Lab showed leukocytosis, hyponatremia, DONOVAN with creatinine of 3, elevated lactate, elevated troponin (0.132, 0.196,0.251, 0.310, 0.244). CT chest abdomen pelvis showed diffuse colitis, pulmonary edema, probable bronchopneumonia. She was started on IV antibiotics. She was noted to be in atrial flutter with 2:1 conduction with rates in the 150s and was started on Cardizem drip. Rates were not controlled and Cardiology was consulted for further recommendations. Interval history: She is resting in bed. She denies any chest pain, palpitations, dizziness. Telemetry shows sinus rhythm with rate in the 70s to 90s. She is scheduled for thoracentesis today. Review of Systems Cardiovascular: Comments: As per HPI Respiratory: Comments: As per HPI Exam Narrative: General: Alert oriented x3, no acute distress Neck: Supple, no JVD Chest: Decreased breath sounds at lung bases, clear to auscultation remaining lung anand, no rales or rhonchi Cardiac: S1, S2 +, regular rate, regular rhythm, no murmurs or rubs Extremities: Bilateral lower extremity edema 1+, no skin rash Neurologic: Alert and oriented x3, no focal neurological deficits Objective Data Vital Signs Vital Signs: Vital Signs - 24 hr 11/07/24 11:59 11/07/24 12:00 11/07/24 12:00 Temperature 36.4 C L Pulse Rate 81 82 Respiratory Rate 22 H Blood Pressure 149/53 H 149/53 H Pulse Oximetry 90 92 Oxygen Delivery High Flow Therapy with Na Oxygen Flow Rate 40 Fraction of Inspired Oxygen 70 11/07/24 12:00 11/07/24 12:07 11/07/24 14:00 Temperature Pulse Rate 82 83 83 Respiratory Rate Blood Pressure 149/53 H Pulse Oximetry Oxygen Delivery Oxygen Flow Rate Fraction of Inspired Oxygen 11/07/24 15:39 11/07/24 16:00 11/07/24 16:00 Temperature 36.3 C L Pulse Rate 86 86 84 Respiratory Rate 20 Blood Pressure 129/65 Pulse Oximetry 91 Oxygen Delivery Oxygen Flow Rate Fraction of Inspired Oxygen 11/07/24 16:00 11/07/24 18:00 11/07/24 20:00 Temperature Pulse Rate 74 80 Respiratory Rate Blood Pressure Pulse Oximetry 91 Oxygen Delivery High Flow Therapy with Na Oxygen Flow Rate 40 Fraction of Inspired Oxygen 70 11/07/24 20:42 11/07/24 21:11 11/07/24 21:14 Temperature Pulse Rate 82 81 81 Respiratory Rate 20 18 Blood Pressure 149/55 H Pulse Oximetry 92 90 Oxygen Delivery High Flow Therapy with Na Oxygen Flow Rate 40 Fraction of Inspired Oxygen 70 11/07/24 22:00 11/08/24 00:00 11/08/24 00:00 Temperature 36.4 C L Pulse Rate 81 78 77 Respiratory Rate 18 Blood Pressure 136/54 L Pulse Oximetry 94 Oxygen Delivery Oxygen Flow Rate Fraction of Inspired Oxygen 11/08/24 02:00 11/08/24 04:00 11/08/24 04:00 Temperature 36.4 C Pulse Rate 72 72 72 Respiratory Rate 18 Blood Pressure 140/47 L Pulse Oximetry 92 Oxygen Delivery Oxygen Flow Rate Fraction of Inspired Oxygen 11/08/24 05:44 11/08/24 06:00 11/08/24 08:00 Temperature 36.6 C Pulse Rate 75 78 71 Respiratory Rate 20 Blood Pressure 148/52 H Pulse Oximetry 97 Oxygen Delivery Oxygen Flow Rate Fraction of Inspired Oxygen 11/08/24 08:00 11/08/24 09:50 11/08/24 09:51 Temperature Pulse Rate 69 71 71 Respiratory Rate Blood Pressure Pulse Oximetry Oxygen Delivery Oxygen Flow Rate Fraction of Inspired Oxygen 11/08/24 10:00 Temperature Pulse Rate 71 Respiratory Rate Blood Pressure Pulse Oximetry Oxygen Delivery Oxygen Flow Rate Fraction of Inspired Oxygen Intake/Output Intake/Output: Intake & Output 11/05/24 11/06/24 11/07/24 11/08/24 23:59 23:59 23:59 23:59 Intake Total 306.9 754.3 1175.1 Output Total 800 1400 900 450 Balance -493.1 -645.7 275.1 -450 Meds/Results Medications: Active Medications Generic Name Dose Route Start Last Admin Trade Name Freq PRN Reason Stop Dose Admin Acetaminophen 650 mg 11/06/24 12:18 11/07/24 05:56 Acetaminophen 325 Mg Tablet PO 650 mg Q4H PRN Administration Headache Alprazolam 0.25 mg 11/03/24 19:16 11/06/24 00:11 Alprazolam (*Crx) 0.25 Mg Tablet PO 0.25 mg QHS PRN Administration Anxiety Apixaban 5 mg 11/05/24 21:00 11/06/24 20:51 Apixaban 5 Mg Tablet PO 5 mg On Hold: 11/07/24 09:00 Q12HR KEVIN Administration Resume: 11/09/24 09:00 Comment: On hold until after thoracentesis and cardiology ok's restart. Cyclosporine 1 drop 11/03/24 21:00 11/08/24 09:50 Cyclosporine 0.4 Ml Ophth Solution EACH EYE 1 drop Q12HR KEVIN Administration Piperacillin Sod/Tazobactam 50 mls @ 100 mls/hr 11/03/24 20:00 11/08/24 04:51 Sod 2.25 gm/ Sodium Chloride IVPB 100 mls/hr Q8H KEVIN Administration Metoprolol Tartrate 50 mg 11/08/24 09:00 11/08/24 09:50 Metoprolol Tartrate 50 Mg Tab PO 50 mg BID KEVIN Administration Simvastatin 20 mg 11/04/24 09:00 11/08/24 09:50 Simvastatin 20 Mg Tablet PO 20 mg DAILY KEVIN Administration Sodium Bicarbonate 650 mg 11/05/24 17:00 11/08/24 09:50 Sodium Bicarbonate Tab 650 Mg Tablet PO 650 mg BID KEVIN Administration Sodium Chloride 10 ml 11/06/24 22:00 11/08/24 05:44 Central Line Flush IV PUSH 10 ml Q8HR KEVIN Administration Sodium Chloride 10 ml 11/06/24 14:29 Central Line Flush IV PUSH PRN PRN with TPN bag changes Sodium Chloride 20 ml 11/06/24 14:29 Central Line Flush IV PUSH PRN PRN after blood draws Trazodone HCl 50 mg 11/03/24 21:00 11/07/24 21:13 Trazodone Hcl 50 Mg Tablet PO 50 mg QHS KEVIN Administration Vancomycin HCl 500 mg 11/06/24 08:15 11/08/24 05:44 Vancomycin Hcl 250 Mg Oral Capsule PO 500 mg Q6HR KEVIN Administration Radiology Results: ITS Impressions Abdomen/Pelvis CT 11/04/24 12:36 IMPRESSION: 1. No evidence of bowel perforation. 2. Persistent severe pancolitis. 3. New small scattered ascites. 4. New small pleural effusions and significant bibasilar atelectasis. Renal Ultrasound 11/04/24 19:07 Impression: Simple appearing left renal cyst. No significant medical renal disease or obstruction Abdomen X-Ray 11/05/24 16:02 Impression: 1. Findings concerning for small bowel obstruction. CT is suggested Chest/Abdomen/Pelvis CT 11/05/24 17:04 IMPRESSION: 1. Diffuse colitis detailed above, correlate for underlying pseudomembranous colitis. No perforation or abscess. Follow-up recommended to assess. 2. CHF with superimposed probable bronchopneumonia. 3. Incidental findings above. Contrast-enhanced MRI recommended Chest X-Ray 11/06/24 12:01 IMPRESSION: 1. Decreased lung volumes with small bilateral pleural effusions and associated bibasilar atelectasis and/or pneumonia. 2. Haustral fold thickening along the visualized colon suspicious for colitis. Head CT 11/06/24 12:46 Impression: 1.No acute intracranial abnormality. Labs Labs: Laboratory Results - last 24 hr 11/05/24 11/07/24 11/08/24 04:18 04:35 05:48 WBC 16.4 H RBC 3.77 L Hgb 11.6 L Hct 33.5 L MCV 88.9 MCH 30.8 MCHC 34.6 RDW 13.0 Plt Count 374 MPV 9.3 Immature Gran % (Auto) 3.2 H Neut % (Auto) 84.1 H Lymph % (Auto) 6.5 L Alfalfa % (Auto) 5.2 Eos % (Auto) 0.5 Baso % (Auto) 0.5 Lymph # (Auto) 1.07 Alfalfa # (Auto) 0.9 H Eos # (Auto) 0.1 Baso # (Auto) 0.1 Abs Immat Gran (auto) 0.53 H Absolute Neuts (auto) 13.8 H Absolute Nucleated RBC 0.000 Nucleated RBC % 0.0 PT 18.8 H D INR 1.6 APTT 30.1 Sodium 122 L Potassium 3.9 Chloride 92 L Carbon Dioxide 16 L Anion Gap 14 H BUN 78 H Creatinine 3.78 H Estim Creat Clear Calc 11 Estimated GFR 12 L Glucose 108 Calcium 7.1 L Phosphorus 6.2 H Magnesium 1.7 Total Bilirubin 0.6 AST 49 H ALT 28 Alkaline Phosphatase 127 H C-Reactive Protein 12.5 H NT-Pro-B Natriuret Pep 3080 H Total Protein 5.2 L Total Protein (PEP) 4.7 L Albumin 2.6 L Albumin (PEP) 1.9 L Globulin (PEP) 2.8 Albumin/Globulin Ratio 0.7 Zjsoc-0-Kezbscpoe 0.5 H Zbaog-8-Hzdoyfxvk 1.2 H Beta Globulins 0.7 Gamma Globulins 0.4 PEP Comment Comment Procalcitonin 2.8 Pr Electrophoresis MSpike 0.1 H Hep B Core Total Ab Negative
--- NOTE | 2024-11-08 10:53 | PC.NURSE ---
Ultrasound and radiology at the bedside at this time to complete a thoracentesis. Family is also at the bedside at this time. No acute distress noted. Patient tolerating 15L/HFNC at this time.
--- NOTE | 2024-11-08 10:57 | CY_PTH ---
PATIENT: Berenice Alex LOC: [id number] U#:[id number] AGE/SX: 78/F ROOM: 260 RE11/03/[address]: Janel Sandhu MD : 1945 BED: 01 DIS: 11/29/2024 SPEC #: [id number] RECD: 11/09/24 06:55 STATUS: ALLYSSA REQ #: [id number] HARITHA: 11/08/24 10:[address]: Isabell Domínguez DEPT: [facility] Cytology RECD BY: Kylee Moctezuma ENTERED: 11/09/24 06:56 SP TYPE: Cytology OTHR DR: MD Yaniv Brambila MD Sriraj T. Kanungo, MD Anjum Owaisi, MD Tissues: A - Pleural Fluid Procedures: Hematoxylin and Eosin Stain Cell Block [id number] Calretinin Cytopathology Cytospin
--- NOTE | 2024-11-08 11:47 | WPDIDCN ---
Assessment and Plan Assessment and plan (1) Colitis: Code(s): K52.9 - Noninfective gastroenteritis and colitis, unspecified Status: Acute Assessment and Plan: -Differential diagnosis of colitis includes progression of diverticulitis vs. C.difficile colitis vs. ischemic vs. other (2) Acute kidney injury: Code(s): N17.9 - Acute kidney failure, unspecified Status: Acute Assessment and Plan: -Sepsis-related vs. other -Management per primary service (3) Acute hypoxic respiratory failure: Code(s): J96.01 - Acute respiratory failure with hypoxia Status: Acute Assessment and Plan: -Likely due to fluid overload/pulmonary edema and pleural effusion -Management as per Pulmonary service (4) Pleural effusion: Code(s): J90 - Pleural effusion, not elsewhere classified Status: Acute Assessment and Plan: -S/P Left thoracentesis 11/08/24 -Management as per pulmonary service (5) Diverticulitis large intestine: Code(s): K57.32 - Diverticulitis of large intestine without perforation or abscess without bleeding Status: Acute Assessment and Plan: -Recently on Augmentin a few days prior to current hospitalization for diverticulitis Plan -Send C.difficile PCR -Await stool culture results -Continue Zosyn given recent diagnosis of diverticulitis -Continue enteral Vancomycin until C.difficile colitis excluded -Added Metronidazole IV for short-course in the event selby-colitis changes due to C.difficile infection -Await left pleural fluid studies -Follow CBC and renal function Antimicrobial plan of care discussed with patient. All questions answered Patient was seen via video telehealth consultation with the assistance of staff. Chart, data, and patient independently reviewed. Patient was located at [facility] while I was located in [facility] office. Received verbal consent from patient. [facility] Data of Consult Date/Time: 11/08/24 11:47 Requesting Physician: Isabell Domínguez MD Primary Care Provider: Yaniv Elmore MD Consult Narrative Reason for consult: Colitis Narrative: Berenice Alex is a 78 year old female with recent symptoms of diverticulitis (treated with outpatient oral antimicrobial therapy) who was admitted for diarrhea and abdominal pain. Patient also noted to have shortness of breath and cough some sputum production. She underwent CT chest/abdomen/pelvis which demonstrated pulmonary edema changes, bilateral pleural effusions and diffuse colitis changes. Patient started on Zosyn and high-dose enteral Vancomycin. She has been undergoing diuresis for fluid overload. She underwent left thoracentesis today which yielded about 250mL of yellow pleural fluid. Blood cultures are negative for growth thus far. GI panel pending. Patient states this is her first episode of diverticulitis. Review of Systems Review of Systems: All systems reviewed & are unremarkable except as noted in HPI and below PMFSH Past Medical History Medical History (Updated 11/08/24 @ 11:54 by Demond Medina MD) Diverticulitis large intestine Anxiety Hyperlipidemia BMI 25.0-25.9,adult Hypertension Family History Family History Father Hypertension Cerebrovascular accident Mother Heart disease Sibling Diabetes mellitus Sibling Diabetes mellitus Social History Social History Smoking status: Never smoker Second hand tobacco smoke exposure: No Alcohol intake: current Substance use: never Substance use type: does not use Lack of Transportation: No Lack of Food: Never True Current Housing: I Have Housing Concerned About Future Housing: No Difficulty Paying Gas/Electric Bills: No Difficulty Paying for Meds: No Currently Unemployed: No Education: High School Diploma/GED Difficulty w/ Childcare or Family Care: No Living arrangements: with family 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 Gender identity (if verbalized by the patient): Female Spiritual care concerns: No Meds Home Medications and Allergies Home Medications ?Medication ?Instructions ?Recorded ?Confirmed ?Type cyclosporine 0.05 % eye drops 1 drp EACH EYE Q12H #5.5 mL 03/18/21 11/03/24 Rx (Restasis MultiDose) terbinafine HCl 250 mg tablet 250 mg PO DAILY 09/03/23 11/03/24 History simvastatin 20 mg tablet (Zocor) 20 mg PO DAILY #90 tabs 04/12/24 11/03/24 Rx amlodipine 10 mg tablet 10 mg PO DAILY #90 tabs 05/16/24 11/03/24 Rx trazodone 50 mg tablet 50 mg PO QHS #90 tabs 05/16/24 11/03/24 Rx spironolactone 50 mg tablet See Rx Instructions .Route 08/07/24 11/03/24 Rx .COMPLEX #90 tabs alprazolam 0.25 mg tablet 0.25 mg PO QHS PRN anxiety #90 tabs 09/26/24 11/03/24 Rx lisinopril 40 mg tablet 40 mg PO DAILY #90 tabs 10/01/24 11/03/24 Rx amoxicillin 875 mg-potassium 1 tablet PO Q12H #14 tabs 11/01/24 11/03/24 Rx clavulanate 125 mg tablet hydrocodone 5 mg-acetaminophen 325 1 tablet PO Q6H PRN pain #12 tabs 11/01/24 11/03/24 Rx mg tablet ondansetron 4 mg disintegrating 4 mg PO Q6H PRN nausea and 11/01/24 11/03/24 Rx tablet vomiting #10 tabs Allergies Allergy/AdvReac Type Severity Reaction Status Date / Time morphine Allergy Itching Verified 11/01/24 11:35 Vital Signs Vital Signs - 24 hr 11/07/24 11:59 11/07/24 12:00 11/07/24 12:00 Temperature 97.5 F L Pulse Rate 81 82 Respiratory Rate 22 H Blood Pressure 149/53 H 149/53 H Pulse Oximetry 90 92 Oxygen Delivery High Flow Therapy with Na Oxygen Flow Rate 40 Fraction of Inspired Oxygen 70 11/07/24 12:00 11/07/24 12:07 11/07/24 14:00 Temperature Pulse Rate 82 83 83 Respiratory Rate Blood Pressure 149/53 H Pulse Oximetry Oxygen Delivery Oxygen Flow Rate Fraction of Inspired Oxygen 11/07/24 15:39 11/07/24 16:00 11/07/24 16:00 Temperature 97.4 F L Pulse Rate 86 86 84 Respiratory Rate 20 Blood Pressure 129/65 Pulse Oximetry 91 Oxygen Delivery Oxygen Flow Rate Fraction of Inspired Oxygen 11/07/24 16:00 11/07/24 18:00 11/07/24 20:00 Temperature Pulse Rate 74 80 Respiratory Rate Blood Pressure Pulse Oximetry 91 Oxygen Delivery High Flow Therapy with Na Oxygen Flow Rate 40 Fraction of Inspired Oxygen 70 11/07/24 20:42 11/07/24 21:11 11/07/24 21:14 Temperature Pulse Rate 82 81 81 Respiratory Rate 20 18 Blood Pressure 149/55 H Pulse Oximetry 92 90 Oxygen Delivery High Flow Therapy with Na Oxygen Flow Rate 40 Fraction of Inspired Oxygen 70 11/07/24 22:00 11/08/24 00:00 11/08/24 00:00 Temperature 97.5 F L Pulse Rate 81 78 77 Respiratory Rate 18 Blood Pressure 136/54 L Pulse Oximetry 94 Oxygen Delivery Oxygen Flow Rate Fraction of Inspired Oxygen 11/08/24 02:00 11/08/24 04:00 11/08/24 04:00 Temperature 97.6 F Pulse Rate 72 72 72 Respiratory Rate 18 Blood Pressure 140/47 L Pulse Oximetry 92 Oxygen Delivery Oxygen Flow Rate Fraction of Inspired Oxygen 11/08/24 05:44 11/08/24 06:00 11/08/24 08:00 Temperature 97.8 F Pulse Rate 75 78 71 Respiratory Rate 20 Blood Pressure 148/52 H Pulse Oximetry 97 Oxygen Delivery Oxygen Flow Rate Fraction of Inspired Oxygen 11/08/24 08:00 11/08/24 09:50 11/08/24 09:51 Temperature Pulse Rate 69 71 71 Respiratory Rate Blood Pressure Pulse Oximetry Oxygen Delivery Oxygen Flow Rate Fraction of Inspired Oxygen 11/08/24 10:00 Temperature Pulse Rate 71 Respiratory Rate Blood Pressure Pulse Oximetry Oxygen Delivery Oxygen Flow Rate Fraction of Inspired Oxygen Exam Narrative: Gen: fatigued Pulm: tachypneic with some conversational dyspnea Derm: no rash Abd: distended Lines: RUE PICC intact : urinary catheter in place draining clear urine Results Labs 11/08/24 05:48 11/08/24 05:48 Labs: Short CBC 11/08/24 Range/Units 05:48 WBC 16.4 H (4.5-10.0) K/mm3 Hgb 11.6 L (12.0-15.0) g/dL Hct 33.5 L (37.0-47.0) % Plt Count 374 (150-375) k/mm3 [facility] 11/08/24 05:48 Sodium 122 L Potassium 3.9 Chloride 92 L Carbon Dioxide 16 L BUN 78 H Creatinine 3.78 H Glucose 108 Calcium 7.1 L Liver Function 11/08/24 Range/Units 05:48 Total Bilirubin 0.6 (0.2-1.3) mg/dL AST 49 H (14-36) U/L ALT 28 (6-35) U/L Alkaline Phosphatase 127 H (38-126) U/L Albumin 2.6 L (3.5-5.1) g/dL
[2024-11-08 12:20] LABS: Appearance Pleural Fluid Hazy (Clear)
[2024-11-08 12:21] LABS: Color Pleural Fluid Yellow (Colorless); Lymphocytes Pleural Fluid 2 %; Macrophages Pleural Fluid 57 %; Mesothelial Cells Pleural Flui 8 %; Monocytes Pleural Fluid 7 %; Neutrophils Pleural Fluid 26 % (0-25); Nucleated Cell Pleural Fluid 874 /uL (0-1000)
[2024-11-08] MEDS: metroNIDAZOLE 500 MG/ISO 100ML 500 MG/100 ML BAG 100 MG IVPB ×2 (12:51→21:39)
--- NOTE | 2024-11-08 13:17 | P.PNNP_ITS ---
Progress Note: A&P Assessment and Plan (1) Acute kidney injury: Code(s): N17.9 - Acute kidney failure, unspecified Status: Acute Assessment and Plan: * slow improvement * as noted by admission labs (creatinine of 3.03mg/dL) * creatinine normal 2 days prior to admission * baseline creatinine runs ~ 0.9 - 1.1mg/dL * suspect multifactorial etiology: * prerenal factors * infection/early sepsis (diverticulitis/colitis) * contrast exposure (CT of A/P on 11/01) * relative hypotension on presentation * JAMIE-I/diuretic use prior to admission * urinary retention(?) - difficulty urinating on admission so gamble catheter placed * other (?) * off IVFs due to concerns for volume overload * evaluation to date noted: * renal ultrasound without obstruction * urine electrolytes prerenal * urine eosinophils negative * CPK normal * mild proteinuria * holding lisinopril and spironolactone * remains at risk for GANTRY RIGGER/hemodialysis * still somewhat responsive to diuretic therapy * follow trend of repeat labs and UOP (2) Pancolitis: Code(s): K52.9 - Noninfective gastroenteritis and colitis, unspecified Status: Acute Assessment and Plan: * as noted by CT imaging to date: * CT of C/A/P (11/05): Diffuse colitis detailed above, correlate for underlying pseudomembranous colitis. No perforation or abscess * CT of A/P (11/04): No evidence of bowel perforation; persistent severe pancolitis * CT of A/P (11/03): Interval progression of radiographically uncomplicated selby colitis which could be infectious, inflammatory or less likely ischemic in etiology * CT of A/P (11/01): Sigmoid diverticulitis. No perforation or abscess * follow culture data * follow trend of WBC * on antibiotics * Infectious Disease following (3) Acute hypoxic respiratory failure: Code(s): J96.01 - Acute respiratory failure with hypoxia Status: Acute Assessment and Plan: * improvement noted * multifactorial etiology: * bilateral pleural effusions * atelectasis * fluid overload * atrial flutter with rapid ventricular response * pancolitis * possible pneumonia * diuresis as tolerated * s/p thoracentesis (on 11/08) * antibiotics for possible pneumonia * Pulmonary following with recommendations noted * follow respiratory status (4) Metabolic acidosis: Code(s): E87.20 - Acidosis, unspecified Status: Acute Assessment and Plan: * due to DONOVAN/ARF and GI symptoms * fluctuating lactic acid levels noted * bicarb IVFs not being given due to concerns about fluid overload * on oral sodium bicarbonate * follow repeat labs (5) Hyponatremia: Code(s): E87.1 - Hypo-osmolality and hyponatremia Status: Acute Assessment and Plan: * as noted on admission * possible chronic component -- sodium seems to run 129 - 136mmol/L since 2021 * presumably worsen by: * DONOVAN/ARF * prerenal factors * pleural effusions * possible pneumonia * urinary retention * mild improvement s/p IVF resuscitation * follow trend of sodium (6) Atrial flutter: Code(s): I48.92 - Unspecified atrial flutter Status: Acute Assessment and Plan: * as noted by events early on 11/05 * attempting rate control strategy * Cardiology recommendations noted * on metoprolol * was on IV amiodarone (temporary measure) * Echo noted (on 11/07) * left ventricular systolic function is hyperdynamic, estimated at > 70% * left ventricular diastolic function is grade I diastolic dysfunction * no aortic valve stenosis * mild tricuspid valve regurgitation * resume anticoagulation(?) (7) Elevated troponin: Code(s): R79.89 - Other specified abnormal findings of blood chemistry Status: Acute Assessment and Plan: * due to DONOVAN versus atrial fluttter with RVR * trend noted * Cardiology already following (8) Hypertension: Code(s): I10 - Essential (primary) hypertension Status: Chronic Assessment and Plan: * reasonable control * holding JAMIE-I and diuretics due to #1 * however, may need further diuresis given #3 * follow trend of hemodynamics Will continue to follow. L Subjective Date/time seen: 11/08/24 13:17 Interval history: Follow-up for acute kidney injury/acute renal failure. Overall, she states that she continues to feel better in general with slow improvement noted each day; s/p left thoracentesis earlier today with further improvement in breathing/respiratory status; renal function/creatinine better today as well with reasonable urine output although sodium a bit worse. Exam 2 Narrative: General: elderly but WD/WN female in NAD Heart: tachycardic, normal S1 and S2; no rub Lungs: coarse and decreased at bases Abdomen: soft, mild distension with +TTP, positive bowel sounds Extremities: no cyanosis or clubbing; no edema Skin: no rash Objective Data Vital Signs Vital Signs: Vital Signs Temp Pulse Resp BP Pulse Ox O2 Del Method O2 Flow Rate 11/08/24 12:00 62 11/08/24 12:00 62 18 97 High Flow Therapy with Na 15 11/08/24 12:00 62 18 141/53 H 97 11/08/24 10:00 71 11/08/24 09:51 71 11/08/24 09:50 71 11/08/24 08:00 69 11/08/24 08:00 97.8 F 71 20 148/52 H 97 11/08/24 06:00 78 11/08/24 05:44 75 11/08/24 04:00 97.6 F 72 18 140/47 L 92 11/08/24 04:00 72 11/08/24 02:00 72 11/08/24 00:00 77 11/08/24 00:00 97.5 F L 78 18 136/54 L 94 11/07/24 22:00 81 11/07/24 21:14 81 11/07/24 21:11 81 18 149/55 H 90 11/07/24 20:42 82 20 92 High Flow Therapy with Na 40 11/07/24 20:00 80 11/07/24 18:00 74 Intake/Output Intake/Output: Intake & Output 11/05/24 11/06/24 11/07/24 11/08/24 23:59 23:59 23:59 23:59 Intake Total 306.9 754.3 1175.1 50 Output Total 800 1400 900 700 Balance -493.1 -645.7 275.1 -650 Meds/Results Medications: Active Medications Generic Name Dose Route Start Last Admin Trade Name Freq PRN Reason Stop Dose Admin Acetaminophen 650 mg 11/06/24 12:18 11/07/24 05:56 Acetaminophen 325 Mg Tablet PO 650 mg Q4H PRN Administration Headache Alprazolam 0.25 mg 11/03/24 19:16 11/06/24 00:11 Alprazolam (*Crx) 0.25 Mg Tablet PO 0.25 mg QHS PRN Administration Anxiety Apixaban 5 mg 11/05/24 21:00 11/06/24 20:51 Apixaban 5 Mg Tablet PO 5 mg On Hold: 11/07/24 09:00 Q12HR KEVIN Administration Resume: 11/09/24 09:00 Comment: On hold until after thoracentesis and cardiology ok's restart. Cyclosporine 1 drop 11/03/24 21:00 11/08/24 09:50 Cyclosporine 0.4 Ml Ophth Solution EACH EYE 1 drop Q12HR KEVIN Administration Piperacillin Sod/Tazobactam 50 mls @ 100 mls/hr 11/03/24 20:00 11/08/24 12:50 Sod 2.25 gm/ Sodium Chloride IVPB 100 mls/hr Q8H KEVIN Administration Metronidazole 500 mg in 100 mls @ 100 mls/hr 11/08/24 13:00 11/08/24 12:51 Flagyl 500 Mg/Iso Soln 100 Ml IVPB 100 mls/hr Q8HR KEVIN Administration Metoprolol Tartrate 50 mg 11/08/24 09:00 11/08/24 09:50 Metoprolol Tartrate 50 Mg Tab PO 50 mg BID KEVIN Administration Simvastatin 20 mg 11/04/24 09:00 11/08/24 09:50 Simvastatin 20 Mg Tablet PO 20 mg DAILY KEVIN Administration Sodium Bicarbonate 650 mg 11/05/24 17:00 11/08/24 09:50 Sodium Bicarbonate Tab 650 Mg Tablet PO 650 mg BID KEVIN Administration Sodium Chloride 10 ml 11/06/24 22:00 11/08/24 14:47 Central Line Flush IV PUSH 10 ml Q8HR KEVIN Administration Sodium Chloride 10 ml 11/06/24 14:29 Central Line Flush IV PUSH PRN PRN with TPN bag changes Sodium Chloride 20 ml 11/06/24 14:29 Central Line Flush IV PUSH PRN PRN after blood draws Trazodone HCl 50 mg 11/03/24 21:00 11/07/24 21:13 Trazodone Hcl 50 Mg Tablet PO 50 mg QHS KEVIN Administration Vancomycin HCl 500 mg 11/06/24 08:15 11/08/24 12:49 Vancomycin Hcl 250 Mg Oral Capsule PO 500 mg Q6HR KEVIN Administration Radiology Results: ITS Impressions Abdomen/Pelvis CT 11/04/24 12:36 IMPRESSION: 1. No evidence of bowel perforation. 2. Persistent severe pancolitis. 3. New small scattered ascites. 4. New small pleural effusions and significant bibasilar atelectasis. Renal Ultrasound 11/04/24 19:07 Impression: Simple appearing left renal cyst. No significant medical renal disease or obstruction Abdomen X-Ray 11/05/24 16:02 Impression: 1. Findings concerning for small bowel obstruction. CT is suggested Chest/Abdomen/Pelvis CT 11/05/24 17:04 IMPRESSION: 1. Diffuse colitis detailed above, correlate for underlying pseudomembranous colitis. No perforation or abscess. Follow-up recommended to assess. 2. CHF with superimposed probable bronchopneumonia. 3. Incidental findings above. Contrast-enhanced MRI recommended Head CT 11/06/24 12:46 Impression: 1.No acute intracranial abnormality. Chest X-Ray 11/08/24 11:31 IMPRESSION: 1. No pneumothorax post left thoracentesis. 2. Small lung volumes with airspace opacities in bilateral lower lung zones which could represent atelectasis, pneumonia, small pleural effusions or some combination thereof. 3. Wall thickening at the hepatic flexure of the colon suspicious for colitis. Thoracentesis Ultrasound 11/08/24 11:36 IMPRESSION: 1. Successful ultrasound-guided thoracentesis yielding 250 mL of yellow fluid. Labs Labs: Laboratory Tests 11/08/24 05:48 11/08/24 05:48 Calcium 7.1 L Phosphorus 6.2 H Magnesium 1.7 Total Bilirubin 0.6 AST 49 H ALT 28 Alkaline Phosphatase 127 H C-Reactive Protein 12.5 H NT-Pro-B Natriuret Pep 3080 H Total Protein 5.2 L Albumin 2.6 L Procalcitonin 2.8 Microbiology 11/08/24 10:58 Pleural Fluid Gram Stain - Final
[2024-11-08 14:08] LABS: Fats, Neutral Normal (.); Fats, Total Normal (.)
[2024-11-08 14:08] LABS: Albumin, U 24.3 % (.); Alpha-1-Globulin, U 1.7 % (.); Alpha-2-Globulin, U 24.3 % (.); Beta Globulin, U 26.9 % (.); Gamma Globulin, U 22.8 % (.)
--- NOTE | 2024-11-08 16:19 | PC.NURSE ---
On 11/08/24, the student, Mary Ellen, provided care and completed [facility] documentation on this patient. I have reviewed the student's documentation and agree with the findings.
[2024-11-08] MEDS: APIXABAN 5 MG TABLET PO (21:43)
[2024-11-09] VITALS (19 sets, daily range): BP systolic 137–158; BP diastolic 40–54; PULSE 57–73; RESP 18–22; TEMP 36.4–36.8; O2SAT 90–94
[2024-11-09] MEDS: ACETAMINOPHEN 325 MG TABLET 650 MG PO ×2 (04:23→13:38)
[2024-11-09] MEDS: metroNIDAZOLE 500 MG/ISO 100ML 500 MG/100 ML BAG 100 MG IVPB ×3 (05:37→21:19)
[2024-11-09] MEDS: VANCOMYCIN HCL 250 MG ORAL CAPSULE 500 MG PO ×3 (05:37→16:56)
[2024-11-09] MEDS: CENTRAL LINE FLUSH 10 ML IV PUSH ×3 (05:37→21:20)
[2024-11-09 06:00] LABS: Hematocrit 31.8 % (37.0-47.0); Hemoglobin 10.9 g/dL (12.0-15.0); Immature Granulocyte Percent A 2.7 % (0-0.5); Lymphocytes Absolute Auto 0.79 K/mm3 (0.9-3.2); Mean Corpuscular HGB Conc 34.3 g/dl (32-36); Mean Corpuscular Hemoglobin 30.8 pg (26-34); Mean Corpuscular Volume 89.8 fl (80-100); Nucleated Red Blood Cells Absolute Auto 0.000 K/mm3 (0.0-0.012); Nucleated Red Blood Cells Perc 0.0 % (0.0-0.2); Platelet Count Result 365 k/mm3 (150-375); Red Blood Count 3.54 M/mm3 (4.2-5.4); White Blood Count 18.2 K/mm3 (4.5-10.0)
[2024-11-09 06:10] LABS: Alanine Aminotransferase 27 U/L (6-35); Albumin Level 2.6 g/dL (3.5-5.1); Alkaline Phosphatase 128 U/L (38-126); Anion Gap 14 mmol/L (4-12); Aspartate Amino Transferase 43 U/L (14-36); Bilirubin,Total 0.5 mg/dL (0.2-1.3); Blood Urea Nitrogen 88 mg/dL (7-17); Calcium 7.4 mg/dL (8.4-10.2); Carbon Dioxide 15 mmol/L (22-30); Chloride 94 mmol/L (98-107); Glucose 93 mg/dL (65-110); Magnesium 1.8 mg/dL (1.6-2.3); Potassium 3.8 mmol/L (3.4-5.0); Sodium 123 mmol/L (137-145); Total Protein 5.1 g/dL (6.3-8.2)
[2024-11-09 06:22] LABS: Estimated CRCL calculation 10 ml/min; Estimated Glomerular Filt Rate 11
[2024-11-09 06:35] LABS: Influenza A QL RT-PCR Negative (Negative); Influenza B QL RT-PCR Negative (Negative); RSV RNA, RT-PCR Negative (Negative); SARS-CoV-2 RNA PCR Negative (Negative)
--- NOTE | 2024-11-09 08:08 | P.PNINF_ITS ---
Progress Note: A&P Assessment and Plan (1) Colitis: Code(s): K52.9 - Noninfective gastroenteritis and colitis, unspecified Status: Acute Assessment and Plan: -Pancolitis noted on CT -Differential diagnosis includes progression of diverticulitis vs. C.difficile pancolitis vs. ischemic colitis vs. other -Await C.difficile PCR -Await stool cultures (2) Acute kidney injury: Code(s): N17.9 - Acute kidney failure, unspecified Status: Acute Assessment and Plan: -Management as per Nephrology service (3) Diverticulitis large intestine: Code(s): K57.32 - Diverticulitis of large intestine without perforation or abscess without bleeding Status: Acute Assessment and Plan: -Diagnosed one week prior to admission -S/P Augmentin x 5 days -Continue Zosyn for diverticulitis (4) Pleural effusion: Code(s): J90 - Pleural effusion, not elsewhere classified Status: Acute Assessment and Plan: -S/P Left thoracentesis 11/08/24 -Pleural fluid studies not consistent with empyema -Await pleural fluid cultures -Management as per Pulmonary service Plan -Await C.difficile PCR (ordered on 11/08/24) -Await stool culture results -Continue Zosyn given recent diagnosis of diverticulitis -Continue enteral Vancomycin until C.difficile colitis excluded -Continue Metronidazole IV day 2 for short-course in the event selby-colitis changes due to C.difficile infection -Await left pleural fluid studies -Follow CBC and renal function Antimicrobial plan of care discussed with patient. All questions answered Patient was seen via video telehealth consultation with the assistance of staff. Chart, data, and patient independently reviewed. Patient was located at [facility] while I was located in my [place] office. Received verbal consent from patient. Subjective Date/time seen: 11/09/24 08:08 Interval history: Patient afebrile. Breathing has improved after thoracentesis. She is still having diarrhea and FMS placed Review of Systems Review of Systems: All systems reviewed & are unremarkable except as noted in HPI and below Exam Narrative: Gen: fatigued Pulm: tachypneic with some conversational dyspnea Derm: no rash Abd: distended : FMS in place Lines: RUE PICC intact : urinary catheter in place draining clear urine Objective Data Vital Signs Vital Signs: Vital Signs - 24 hr 11/08/24 09:50 09/24/25 09:51 11/08/24 10:00 Temperature Pulse Rate 71 71 71 Respiratory Rate Blood Pressure Pulse Oximetry Oxygen Delivery Oxygen Flow Rate Fraction of Inspired Oxygen 11/08/24 12:00 11/08/24 12:00 11/08/24 12:00 Temperature Pulse Rate 62 62 62 Respiratory Rate 18 18 Blood Pressure 141/53 H Pulse Oximetry 97 97 Oxygen Delivery High Flow Therapy with Na Oxygen Flow Rate 15 Fraction of Inspired Oxygen 70 11/08/24 14:00 11/08/24 15:52 11/08/24 16:00 Temperature 97.7 F Pulse Rate 67 113 H Respiratory Rate 18 24 H Blood Pressure 143/47 H Pulse Oximetry 97 98 Oxygen Delivery High Flow Therapy with Na Oxygen Flow Rate 5 Fraction of Inspired Oxygen 70 11/08/24 16:00 11/08/24 16:41 11/08/24 18:00 Temperature Pulse Rate 67 68 63 Respiratory Rate Blood Pressure Pulse Oximetry Oxygen Delivery Oxygen Flow Rate Fraction of Inspired Oxygen 11/08/24 19:55 11/08/24 20:00 11/08/24 20:00 Temperature 97.6 F Pulse Rate 66 64 Respiratory Rate 22 H Blood Pressure 140/61 Pulse Oximetry 92 91 Oxygen Delivery High Flow Nasal Cannula Oxygen Flow Rate 5 Fraction of Inspired Oxygen 11/08/24 20:33 11/08/24 22:00 11/08/24 23:48 Temperature 97.6 F Pulse Rate 58 L 61 Respiratory Rate 22 H Blood Pressure 136/63 Pulse Oximetry 91 91 Oxygen Delivery High Flow Nasal Cannula Oxygen Flow Rate 6 Fraction of Inspired Oxygen 11/09/24 00:00 11/09/24 00:00 11/09/24 02:00 Temperature Pulse Rate 60 60 Respiratory Rate Blood Pressure Pulse Oximetry 90 Oxygen Delivery High Flow Nasal Cannula Oxygen Flow Rate 5 Fraction of Inspired Oxygen 11/09/24 03:59 11/09/24 04:00 11/09/24 04:00 Temperature 97.5 F L Pulse Rate 65 62 Respiratory Rate 22 H Blood Pressure 155/40 H Pulse Oximetry 93 93 Oxygen Delivery High Flow Nasal Cannula Oxygen Flow Rate 5 Fraction of Inspired Oxygen 11/09/24 06:00 11/09/24 07:36 Temperature 97.6 F Pulse Rate 58 L 63 Respiratory Rate 20 Blood Pressure 142/41 H Pulse Oximetry 93 Oxygen Delivery Oxygen Flow Rate Fraction of Inspired Oxygen Intake/Output Intake/Output: Intake & Output 11/06/24 11/07/24 11/08/24 11/09/24 23:59 23:59 23:59 23:59 Intake Total 754.3 1175.1 540 700 Output Total 1400 900 975 250 Balance -645.7 275.1 -435 450 Meds/Results Medications: Active Medications Generic Name Dose Route Start Last Admin Trade Name Freq PRN Reason Stop Dose Admin Acetaminophen 650 mg 11/06/24 12:18 11/09/24 04:23 Acetaminophen 325 Mg Tablet PO 650 mg Q4H PRN Administration Headache Alprazolam 0.25 mg 11/03/24 19:16 11/06/24 00:11 Alprazolam (*Crx) 0.25 Mg Tablet PO 0.25 mg QHS PRN Administration Anxiety Apixaban 5 mg 11/08/24 21:45 11/08/24 21:43 Apixaban 5 Mg Tablet PO 5 mg Q12HR KEVIN Administration Cyclosporine 1 drop 11/03/24 21:00 11/08/24 21:43 Cyclosporine 0.4 Ml Ophth Solution EACH EYE 1 drop Q12HR KEVIN Administration Metronidazole 500 mg in 100 mls @ 100 mls/hr 11/08/24 13:00 11/09/24 06:37 Flagyl 500 Mg/Iso Soln 100 Ml IVPB Infused Q8HR KEVIN Infusion Piperacillin Sod/Tazobactam 50 mls @ 100 mls/hr 11/09/24 00:00 11/09/24 00:20 Sod 2.25 gm/ Sodium Chloride IVPB Infused Q8H KEVIN Infusion Metoprolol Tartrate 50 mg 11/08/24 09:00 11/08/24 16:41 Metoprolol Tartrate 50 Mg Tab PO 50 mg BID KEVIN Administration Simvastatin 20 mg 11/04/24 09:00 11/08/24 09:50 Simvastatin 20 Mg Tablet PO 20 mg DAILY KEVIN Administration Sodium Bicarbonate 650 mg 11/05/24 17:00 11/08/24 16:42 Sodium Bicarbonate Tab 650 Mg Tablet PO 650 mg BID KEVIN Administration Sodium Chloride 10 ml 11/06/24 22:00 11/09/24 05:37 Central Line Flush IV PUSH 10 ml Q8HR KEVIN Administration Sodium Chloride 10 ml 11/06/24 14:29 Central Line Flush IV PUSH PRN PRN with TPN bag changes Sodium Chloride 20 ml 11/06/24 14:29 Central Line Flush IV PUSH PRN PRN after blood draws Trazodone HCl 50 mg 11/03/24 21:00 11/08/24 21:39 Trazodone Hcl 50 Mg Tablet PO 50 mg QHS KEVIN Administration Vancomycin HCl 500 mg 11/06/24 08:15 11/09/24 05:37 Vancomycin Hcl 250 Mg Oral Capsule PO 500 mg Q6HR KEVIN Administration Radiology Results: ITS Impressions Abdomen/Pelvis CT 11/04/24 12:36 IMPRESSION: 1. No evidence of bowel perforation. 2. Persistent severe pancolitis. 3. New small scattered ascites. 4. New small pleural effusions and significant bibasilar atelectasis. Renal Ultrasound 11/04/24 19:07 Impression: Simple appearing left renal cyst. No significant medical renal disease or obstruction Abdomen X-Ray 11/05/24 16:02 Impression: 1. Findings concerning for small bowel obstruction. CT is suggested Chest/Abdomen/Pelvis CT 11/05/24 17:04 IMPRESSION: 1. Diffuse colitis detailed above, correlate for underlying pseudomembranous colitis. No perforation or abscess. Follow-up recommended to assess. 2. CHF with superimposed probable bronchopneumonia. 3. Incidental findings above. Contrast-enhanced MRI recommended Head CT 11/06/24 12:46 Impression: 1.No acute intracranial abnormality. Thoracentesis Ultrasound 11/08/24 11:36 IMPRESSION: 1. Successful ultrasound-guided thoracentesis yielding 250 mL of yellow fluid. Labs Labs: Laboratory Results - last 24 hr 11/04/24 11/06/24 11/07/24 13:05 13:11 04:35 WBC RBC Hgb Hct MCV MCH MCHC RDW Plt Count MPV Immature Gran % (Auto) Neut % (Auto) Lymph % (Auto) Brooks % (Auto) Eos % (Auto) Baso % (Auto) Lymph # (Auto) Brooks # (Auto) Eos # (Auto) Baso # (Auto) Abs Immat Gran (auto) Absolute Neuts (auto) Absolute Nucleated RBC Nucleated RBC % Sodium Potassium Chloride Carbon Dioxide Anion Gap BUN Creatinine Estim Creat Clear Calc Estimated GFR Glucose Calcium Phosphorus Magnesium Total Bilirubin AST ALT Alkaline Phosphatase Total Protein Albumin Procalcitonin Urine Total Protein 58.1 Urine Albumin (PEP) 24.3 U Uwgnm-1-Vivnmffs 1.7 U [id number]-8-Wzgmljkn 24.3 U Beta Globulin 26.9 U Gamma Globulin 22.8 U Random M-Teto (%) Comment: Urine PEP Note Comment Pleural Fluid Source Pleural Color Pleural Appearance Pleural pH Pleural RBC Pleural Nuc Cells Pleural Neutrophils Pleural Lymphocytes Pleural Monocytes Pleural Macrophages Pleural Mesothelial Stool Neutral Fats Normal Stool Total Fats Normal Chlamy pneumoniae PCR Adenovirus (PCR) B. pertussis DNA (PCR) B.parapertussis DNA PCR Coronavirus OC43 (PCR) Coronavirus HKU1 (PCR) Coronavirus 229E (PCR) Coronavirus NL63 (PCR) Hep B Core Total Ab Cancelled Human Metapneumovir PCR Influenza A (RT-PCR) Influenza A (H1) PCR Influ A () PCR Influenza A (H3) PCR Influenza Type A (PCR) Influenza B (RT-PCR) Influenza Type B (PCR) M.pneumoniae IgM Titer M. pneumoniae (PCR) Parainfluenza 1 (PCR) Parainfluenza 2 (PCR) Parainfluenza 3 (PCR) Parainfluenza 4 (PCR) RSV (RT-PCR) RSV (PCR) Entero/Rhino (PCR) SARS-CoV-2 (PCR) SARS-CoV-2 RNA (RT-PCR) 11/07/24 11/08/24 11/08/24 04:37 05:48 10:58 WBC RBC Hgb Hct MCV MCH MCHC RDW Plt Count MPV Immature Gran % (Auto) Neut % (Auto) Lymph % (Auto) Brooks % (Auto) Eos % (Auto) Baso % (Auto) Lymph # (Auto) Brooks # (Auto) Eos # (Auto) Baso # (Auto) Abs Immat Gran (auto) Absolute Neuts (auto) Absolute Nucleated RBC Nucleated RBC % Sodium Potassium Chloride Carbon Dioxide Anion Gap BUN Creatinine Estim Creat Clear Calc Estimated GFR Glucose Calcium Phosphorus Magnesium Total Bilirubin AST ALT Alkaline Phosphatase Total Protein Albumin Procalcitonin 2.8 Urine Total Protein Urine Albumin (PEP) U Lxwyj-4-Wvexwexm U Uyypv-4-Cgekfwmk U Beta Globulin U Gamma Globulin U Random M-Teto (%) Urine PEP Note Pleural Fluid Source Pleural fluid Pleural Color Yellow Pleural Appearance Hazy Pleural pH 7.463 Pleural RBC < 2000 Pleural Nuc Cells 874 Pleural Neutrophils 26 H Pleural Lymphocytes 2 Pleural Monocytes 7 Pleural Macrophages 57 Pleural Mesothelial 8 Stool Neutral Fats Stool Total Fats Chlamy pneumoniae PCR Adenovirus (PCR) B. pertussis DNA (PCR) B.parapertussis DNA PCR Coronavirus OC43 (PCR) Coronavirus HKU1 (PCR) Coronavirus 229E (PCR) Coronavirus NL63 (PCR) Hep B Core Total Ab Human Metapneumovir PCR Influenza A (RT-PCR) Influenza A (H1) PCR Influ A (H1/) PCR Influenza A (H3) PCR Influenza Type A (PCR) Influenza B (RT-PCR) Influenza Type B (PCR) M.pneumoniae IgM Titer <770 M. pneumoniae (PCR) Parainfluenza 1 (PCR) Parainfluenza 2 (PCR) Parainfluenza 3 (PCR) Parainfluenza 4 (PCR) RSV (RT-PCR) RSV (PCR) Entero/Rhino (PCR) SARS-CoV-2 (PCR) SARS-CoV-2 RNA (RT-PCR) 11/09/24 05:44 WBC 18.2 H RBC 3.54 L Hgb 10.9 L Hct 31.8 L MCV 89.8 MCH 30.8 MCHC 34.3 RDW 13.2 Plt Count 365 MPV 9.5 Immature Gran % (Auto) 2.7 H Neut % (Auto) 87.6 H Lymph % (Auto) 4.3 L Brooks % (Auto) 4.6 Eos % (Auto) 0.3 Baso % (Auto) 0.5 Lymph # (Auto) 0.79 L Brooks # (Auto) 0.8 H Eos # (Auto) 0.1 Baso # (Auto) 0.1 Abs Immat Gran (auto) 0.49 H Absolute Neuts (auto) 16.0 H Absolute Nucleated RBC 0.000 Nucleated RBC % 0.0 Sodium 123 L Potassium 3.8 Chloride 94 L Carbon Dioxide 15 L Anion Gap 14 H BUN 88 H D Creatinine 4.10 H Estim Creat Clear Calc 10 Estimated GFR 11 L Glucose 93 Calcium 7.4 L Phosphorus 7.5 H Magnesium 1.8 Total Bilirubin 0.5 AST 43 H ALT 27 Alkaline Phosphatase 128 H Total Protein 5.1 L Albumin 2.6 L Procalcitonin Urine Total Protein Urine Albumin (PEP) U Hdjxl-2-Qwvyanpr U Hkfkq-1-Oaelsqbm U Beta Globulin U Gamma Globulin U Random M-Teto (%) Urine PEP Note Pleural Fluid Source Pleural Color Pleural Appearance Pleural pH Pleural RBC Pleural Nuc Cells Pleural Neutrophils Pleural Lymphocytes Pleural Monocytes Pleural Macrophages Pleural Mesothelial Stool Neutral Fats Stool Total Fats Chlamy pneumoniae PCR Cancelled Adenovirus (PCR) Cancelled B. pertussis DNA (PCR) Cancelled B.parapertussis DNA PCR Cancelled Coronavirus OC43 (PCR) Cancelled Coronavirus HKU1 (PCR) Cancelled Coronavirus 229E (PCR) Cancelled Coronavirus NL63 (PCR) Cancelled Hep B Core Total Ab Human Metapneumovir PCR Cancelled Influenza A (RT-PCR) Negative Influenza A (H1) PCR Cancelled Influ A (H1/09) PCR Cancelled Influenza A (H3) PCR Cancelled Influenza Type A (PCR) Cancelled Influenza B (RT-PCR) Negative Influenza Type B (PCR) Cancelled M.pneumoniae IgM Titer M. pneumoniae (PCR) Cancelled Parainfluenza 1 (PCR) Cancelled Parainfluenza 2 (PCR) Cancelled Parainfluenza 3 (PCR) Cancelled Parainfluenza 4 (PCR) Cancelled RSV (RT-PCR) Negative RSV (PCR) Cancelled Entero/Rhino (PCR) Cancelled SARS-CoV-2 (PCR) Cancelled SARS-CoV-2 RNA (RT-PCR) Negative
[2024-11-09] MEDS: PIPERACILLIN/TAZOBACTAM SOD 2.25 GM in SODIUM CHLORIDE 0.9% IV 50 ML 100 ML IVPB ×2 (08:37→16:57)
[2024-11-09] MEDS: SIMVASTATIN 20 MG TABLET PO (08:37)
[2024-11-09] MEDS: METOPROLOL TARTRATE 50 MG TAB PO ×2 (08:37→16:56)
[2024-11-09] MEDS: SODIUM BICARBONATE TAB 650 MG TABLET PO ×2 (08:37→16:56)
[2024-11-09] MEDS: APIXABAN 5 MG TABLET PO (08:37)
--- NOTE | 2024-11-09 09:15 | P.PNPL_ITS ---
Progress Note: A&P Assessment and Plan (1) Respiratory failure with hypoxia: Code(s): J96.91 - Respiratory failure, unspecified with hypoxia Status: Acute Assessment and Plan: Patient on no previous oxygen. She presented on 11/01 and 11/03 to the ER with colitis and had room air saturations on 11/03 of 97%. She has progressive worsening oxygenation along with her acute renal failure, development of bila teral pleural effusions and is now requiring Airvo 40 L and 70% FiO2. of note ABG on 11/05/2024 on 8 L nasal cannula with a pH of 7.35/24/69. Etiology of patient's hypoxemic respiratory failure includes: Bilateral pleural effusions with adjacent atelectasis, fluid overload, atrial flutter with rapid ventricular response, pancolitis, and possible pneumonia. 11/06/24: Plan: Agree with as aggressive diuresis as tolerated by her cardiac and renal systems. Since patient is now requiring nares are recommend thoracentesis which hopefully can be performed on 11/07/2024 as she received apixaban 5 mg on 11/06 at 8:33 a.m.. Low clinical suspicion for bacterial pneumonia and agree with Zosyn for her pancolitis, day 3 today. I will send respiratory pathogen panel, urine for Legionella, urine for pneumococcal and serum mycoplasma IgM. I will initiate the patient on EzPAP for her bilateral atelectasis. Currently the patient has minimal shortness of breath but should she develop worsening work of breathing would initiate noninvasive ventilation with the AVAPS mode, rate 14, tidal volume 500, EPAP 5, minimum inspiratory pressure 6, maximal inspiratory pressure 25 and FiO2 to maintain saturations 90-94%. 11/07/24: Patient tells me she feels better today. Overall she feels like she is 25-50% back to normal. Her breathing is better, she has a cough that is improved and produces a little bit of phlegm with no hemoptysis. She has less abdominal pain and has flatus. She is afebrile. She is on Vapotherm 40 L and 70% FiO2 with saturations 91%. She is on IV amiodarone drip now in sinus at 88. Her white blood cell count is 18.5, creatinine is 3.94. Yesterday she diuresed 645 mL, cumulative she is positive 1.4 L since admission. Her weight is 74.1 kg. Plan: patient clinically improved with Zosyn, diuresis, and conversion of a flutter with RVR to sinus. remains with hypoxic respiratory failure. Agree with thoracentesis if can be safely done with an INR of 2.1. Agree with eventual diuresis, currently on hold per Nephrology. 11/08/24: Overall the patient tells me she is improving. She denies shortness of breath at rest. She says her cough and phlegm production have improved. States her abdominal tenderness is better, she has had bowel movements and flatus. She is afebrile. When I enter the room she was on Vapotherm 40 L 70% FiO2 with saturations 90%. I changed her to 15 L nasal cannula and sequentially decreased her down to 4 L nasal cannula. After 2 minutes on 4 L her saturations decreased to 89 and I increased her to 5 L nasal cannula her saturations were 91%. She is afebrile. White blood cell count 16.4, creatinine 3.78, serum bicarb 16. Her BNP has improved from 3410 on 11/06/2024 to 3080 today. Her procalcitonin has improved from 4.9 on 11/06/2024 to 2.8 today. her CRP has improved from 16.2 on 11/06/2024 to 12.5 today. Yesterday she was positive 200 and 75 mL, cumulative she is positive 1.3 L since admission. Her weight today is 76.4. Plan: patient clinically improved with Zosyn, day 6 today, diuresis, and conversion of a flutter with RVR to sinus. oxygenation improved and currently on 5 L nasal cannula. Agree with thoracentesis. Agree with eventual diuresis, currently on hold per Nephrology. Now that her oxygenation is improved hopefully can get patient out of bed to chair and start to participate in phys ical therapy. Later in the day patient had a left thoracentesis with 250 mL of yellow fluid removed. PH 7.46. g stain with many white blood cells, no organism seen. White blood cells 874 with a differential neutrophils 26%, lymphocytes 2%, monocytes 7%, macrophages 57%, mesothelial cells 8%. later in the day infectious Disease consulted and continued Zosyn, p.o. va ncomycin and added IV Flagyl. 11/09/2024: Patient tells me she continues to improve. She says she is breathing normal. She remains with a dry cough, no phlegm no hemoptysis. Abdominal pain is better but still present. She now has diarrhea she tells me every 5 minutes. She is afebrile. When I enter the room she was on 5 L nasal cannula saturations 93%. I decreased her to 3 L nasal cannula saturations 92%. White blood cell count is 18.2, creatinine is 4.10, her BUN is 88, her serum bicarb is 15. Yesterday she was -435 mL, cumulative she is positive 1.8 L since admission. Her weight today is 74.5. Chest x-ray today shows right pleural effusion, small left pleural effusion and decreased lung volumes. Plan: From a pulmonary perspective patient continues to improve. She has no clinical symptoms of bacterial pneumonia. Her oxygenation continues to improve. No evidence of an empyema on her left thoracentesis and chest x-ray today shows no rapid reaccumulation of left pleural effusion. I do not believe the patient has a bacterial pneumonia and does not need antibiotics from a pulmonary perspective. Patient has acute kidney injury with fluid overload and colitis likely the etiology of patient's pleural effusions and hypoxic respiratory failure. goal saturation 90-94%, wean oxygen accordingly. Discussed with Nephrology and related that I would do not believe the patient has bacterial pneumonia and that her oxygenation has been improving with treatment of her colitis, cardiac arrhythmia, and gentle diuresis. Discussed with Drs. Appiah and Jillian. Will follow with you. Subjective Date/time seen: 11/09/24 09:15 Interval history: 11/06/2024: This is a new pulmonary consult for hypoxemic respiratory failure 78-year-old with a history of hypertension. Patient denies a history of asthma, COPD, recurrent pneumonias. She is not on any oxygen at home and checks her pulse oximetry at home and it has been 95- 98%. Patient is a never smoker but was exposed to secondhand smoke from her father, from her 1st and 2nd from 1969 to 1985. 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 After 1985 she worked in a [employer]. She denies sand blasting, welding, asbestos were, professional painting, [employer] work, coal mining or quarry work. Patient noticed that 2 years she developed dyspnea on exertion. Two years ago she could walk 3/4 of a block. One year ago she could walk half a block and c urrently before this illness she could walk half a block with minimal foreign exchange dealer the last year. 11/01 patient presented to the emergency department with abdominal pain and Room air saturations were 98%. CT scan of the abdomen showed diverticulitis with no abscess. Her white blood cell count was 12.8. Her creatinine was 0.99. She was discharged on Augmentin. 11/03/2024 patient presented to the emergency room with abdominal pain. Her blood pressure is 128/49, heart rate 87, respirations 26, room air saturations 97%. White blood cell count was 21.8, creatinine was 3.03, bands were 20%. Lipase less than 10. CT scan of the abdomen showed progression of her pancolitis with no pleural effusions. Patient was started on Zosyn. 11/04/2024: At 8:00 p.m. she required 2 L nasal cannula saturations 92%. Patient developed atrial flutter treated with diltiazem. 11/05/2024 CT scan chest abdomen and pelvis showed moderate bilateral pleural effusions with atelectasis. At 11:45 a.m. she required 8 L nasal cannula saturations 90%. ABG on 8 L nasal cannula 7.35. At 9:00 p.m. she required 8 L with saturations 90%. At 11:00 p.m. she required Airvo 40 L and 70% with saturations 90%. Cardiology consulted and patient initiated on amiodarone and diltiazem discontinued. 11/06/2024: The patient tells me today that her shortness of breath is at her baseline and this is the same as yesterday. She developed a cough today with no phlegm and no hemoptysis. She denies fever. She tells me her abdominal pain is better today than yesterday. She has had flatus today. Earlier today she received IV metoprolol and IV digoxin for atrial flutter with fast heart rate. Currently her heart rate is 149 and regular and she is being restarted on amiodarone drip. Patient remains on Airvo 40 L, 70% FiO2 with saturations 92%. Her white blood cell count is 28.3, creatinine is 4.18. Chest x-ray today compared with 11/04/2024 shows decreased lung volumes with small bilateral pleural effusions with bibasilar infiltrates. 11/07/24: Patient tells me she feels better today. Overall she feels like she is 25-50% back to normal. Her breathing is better, she has a cough that is improved and produces a little bit of phlegm with no hemoptysis. She has less abdominal pain and has flatus. She is afebrile. She is on Vapotherm 40 L and 70% FiO2 with saturations 91%. She is on IV amiodarone drip now in sinus at 88. Her white blood cell count is 18.5, creatinine is 3.94. Yesterday she diuresed 645 mL, cumulative she is positive 1.4 L since admission. Her weight is 74.1 kg. 11/08/24: Overall the patient tells me she is improving. She denies shortness of breath at rest. She says her cough and phlegm production have improved. States her abdominal tenderness is better, she has had bowel movements and flatus. She is afebrile. When I enter the room she was on Vapotherm 40 L 70% FiO2 with saturations 90%. I changed her to 15 L nasal cannula and sequentially decreased her down to 4 L nasal cannula. After 2 minutes on 4 L her saturations decreased to 89 and I increased her to 5 L nasal cannula her saturations were 91%. She is afebrile. White blood cell count 16.4, creatinine 3.78, serum bicarb 16. Her BNP has improved from 3410 on 11/06/2024 to 3080 today. Her procalcitonin has improved from 4.9 on 11/06/2024 to 2.8 today. her CRP has improved from 16.2 on 11/06/2024 to 12.5 today. Yesterday she was positive 200 and 75 mL, cumulative she is positive 1.3 L since admission. Her weight today is 76.4. Later in the day patient had a left thoracentesis with 250 mL of yellow fluid removed. PH 7.46. g stain with many white blood cells, no organism seen. White blood cells 874 with a differential neutrophils 26%, lymphocytes 2%, monocytes 7%, macrophages 57%, mesothelial cells 8%. later in the day infectious Disease consulted and continued Zosyn, p.o. vancomycin and added IV Flagyl. 11/09/2024: Patient tells me she continues to improve. She says she is breathing normal. She remains with a dry cough, no phlegm no hemoptysis. Abdominal pain is better but still present. She now has diarrhea she tells me every 5 minutes. She is afebrile. When I enter the room she was on 5 L nasal cannula saturations 93%. I decreased her to 3 L nasal cannula saturations 92%. White blood cell count is 18.2, creatinine is 4.10, her BUN is 88, her serum bicarb is 15. Yesterday she was -435 mL, cumulative she is positive 1.8 L since admission. Her weight today is 74.5. Chest x-ray today shows right pleural effusion, small left pleural effusion and decreased lung volumes. DATA: 11/06/24: EXAMINATION: XR chest 1V portable DATE: 11/06/2024 11:34 INDICATION: Respiratory failure TECHNIQUE: frontal view of the chest was obtained. COMPARISON: Chest radiograph dated 11/04/[address] dated 11/05/2024 FINDINGS: Lung volumes are small, unchanged on the left and with interval progression of volume loss on the right. Airspace opacity at the bilateral lower lung zones with blunting at the costophrenic angles consistent with small bilateral pleural effusions and associated atelectasis and/or pneumonia. No pneumothorax or evident pulmonary edema. Heart size is normal. There is ostial fold thickening along the visualized ascending and transverse colon suggestive of colitis. IMPRESSION: 1. Decreased lung volumes with small bilateral pleural effusions and associated bibasilar atelectasis and/or pneumonia. 2. Haustral fold thickening along the visualized colon suspicious for colitis. 11/05/2024: EXAMINATION: CT chest abdomen pelvis wo con, 11/05/2024 16:20 CDT HISTORY: SBO COMPARISON: No comparisons available. FINDINGS: CT chest: No significant coronary calcification is present ([id number]) LUNGS: No tracheomalacia. No bronchiectasis. Moderate to large simple appearing bilateral pleural effusions with small basilar infiltrates. Minimal emphysematous changes. HEART AND PERICARDIUM: Mild cardiomegaly. No pericardial effusion. AORTA: Atherosclerotic changes of the aorta. MEDIASTINUM: Unremarkable. THYROID: The thyroid is unremarkable. CT abdomen: LIVER: Mild cirrhotic disease of the liver suspected. SPLEEN: Mild atrophy of the spleen.. KIDNEYS: Right Kidney: Right kidney mild hydronephrosis, no hydroureter. Left Kidney: Left kidney large simple appearing peripelvic renal cyst 5 x 6 cm. ADRENAL GLANDS: Unremarkable. PANCREAS: Moderate atrophy of the pancreas. Cystic pancreatic lesion of the body 1.5 x 1.6 cm incompletely evaluated, contrast-enhanced MRI recommended. GALLBLADDER/BILIARY: Mild distention of the gallbladder. STOMACH AND ESOPHAGUS: The stomach is decompressed. BOWEL/MESENTERY: Multiple fluid-filled loops of large bowel which appears thickened, absence of contrast limits evaluation. There is pericolonic stranding noted but no gross perforation or abscess, no pneumatosis. Appendix appears minimally thickened but there is no periappendiceal inflammation. Stranding throughout the visualized remaining mesentery. Nonspecific fluid-filled loops of small bowel, no dilated small bowel loops. RETROPERITONEUM: Unremarkable AORTA/VASCULATURE: Normal caliber aorta. FREE FLUID OR FREE AIR: Large amount of free fluid throughout the abdomen and pelvis. Small amount of free fluid in the presacral space.. CT pelvis: SOLID ORGANS/REPRODUCTIVE: Unremarkable. BLADDER: Bladder decompressed. LYMPHADENOPATHY: No lymphadenopathy. OSSEOUS STRUCTURES: No acute osseous abnormality.No suspicious lesions. OVERLYING SOFT TISSUES: Holland catheter in the bladder. IMPRESSION: 1. Diffuse colitis detailed above, correlate for underlying pseudomembranous colitis. No perforation or abscess. Follow-up recommended to assess. 2. CHF with superimposed probable bronchopneumonia. 3. Incidental findings above. Contrast-enhanced MRI recommended Review of Systems Constitutional: Constitutional: Reports no additional constitutional complaints Eyes: Eyes: Reports no additional eye complaints ENT: Reports system reviewed and no additional complaints, except as documented Cardiovascular: Cardiovascular: Reports no additional cardiovascular complaints Respiratory: Respiratory: Reports no additional respiratory complaints Gastrointestinal: Gastrointestinal: Reports no additional gastrointestinal complaints Musculoskeletal: Musculoskeletal: Reports no additional musculoskeletal complaints Neurologic: Reports system reviewed and no additional complaints, except as documented Psychiatric: Psychiatric: Reports no additional psychiatric complaints Endocrine: Endocrine: Reports no additional endocrine complaints Hematologic/Lymphatic: Hematologic/Lymphatic: Reports no additional hematologic/lymphatic complaints Allergic/Immunologic: Allergic/Immunologic: Reports no additional allergic/immunologic complaints Exam Const: General: cooperative, healthy appearing and comfortable Orientation/consciousness: oriented to person, oriented to place and oriented to time Other: No respiratory distress HENMT: Head: normal to inspection Ears: hearing grossly normal bilaterally Eyes: General: appearance normal, both eyes and all related structures Neck: Neck: normal visual inspection Chest: Chest palpation & inspection: normal inspection of the chest Resp: Effort & Inspection: normal respiratory effort and able to speak in complete sentences Auscultation: no crackles, no rales, no rhonchi, no wheezes and diminished lung sounds Other: decreased breath sounds at the bases. Cardio: Jugular venous distension: no JVD Other: sinus 68 GI: Inspection: normal to inspection Other: Tender to deep lower quadrants Skin: General skin exam: normal color Neuro: General: oriented to person, oriented to place and oriented to time Extrem: General: normal to inspection Other: No edema Psych: Appearance: grossly normal Objective Data Vital Signs Vital Signs: Vital Signs - 24 hr 11/08/24 09:50 11/08/24 09:51 11/08/24 10:00 Temperature Pulse Rate 71 71 71 Respiratory Rate Blood Pressure Pulse Oximetry Oxygen Delivery Oxygen Flow Rate Fraction of Inspired Oxygen 11/08/24 12:00 11/08/24 12:00 11/08/24 12:00 Temperature Pulse Rate 62 62 62 Respiratory Rate 18 18 Blood Pressure 141/53 H Pulse Oximetry 97 97 Oxygen Delivery High Flow Therapy with Na Oxygen Flow Rate 15 Fraction of Inspired Oxygen 70 11/08/24 14:00 11/08/24 15:52 11/08/24 16:00 Temperature 36.5 C Pulse Rate 67 113 H Respiratory Rate 18 24 H Blood Pressure 143/47 H Pulse Oximetry 97 98 Oxygen Delivery High Flow Therapy with Na Oxygen Flow Rate 5 Fraction of Inspired Oxygen 70 11/08/24 16:00 11/08/24 16:41 11/08/24 18:00 Temperature Pulse Rate 67 68 63 Respiratory Rate Blood Pressure Pulse Oximetry Oxygen Delivery Oxygen Flow Rate Fraction of Inspired Oxygen 11/08/24 19:55 11/08/24 20:00 11/08/24 20:00 Temperature 36.4 C Pulse Rate 66 64 Respiratory Rate 22 H Blood Pressure 140/61 Pulse Oximetry 92 91 Oxygen Delivery High Flow Nasal Cannula Oxygen Flow Rate 5 Fraction of Inspired Oxygen 11/08/24 20:33 11/08/24 22:00 11/08/24 23:48 Temperature 36.4 C Pulse Rate 58 L 61 Respiratory Rate 22 H Blood Pressure 136/63 Pulse Oximetry 91 91 Oxygen Delivery High Flow Nasal Cannula Oxygen Flow Rate 6 Fraction of Inspired Oxygen 11/09/24 00:00 11/09/24 00:00 11/09/24 02:00 Temperature Pulse Rate 60 60 Respiratory Rate Blood Pressure Pulse Oximetry 90 Oxygen Delivery High Flow Nasal Cannula Oxygen Flow Rate 5 Fraction of Inspired Oxygen 11/09/24 03:59 11/09/24 04:00 11/09/24 04:00 Temperature 36.4 C L Pulse Rate 65 62 Respiratory Rate 22 H Blood Pressure 155/40 H Pulse Oximetry 93 93 Oxygen Delivery High Flow Nasal Cannula Oxygen Flow Rate 5 Fraction of Inspired Oxygen 11/09/24 06:00 11/09/24 07:36 11/09/24 08:37 Temperature 36.4 C Pulse Rate 58 L 63 66 Respiratory Rate 20 Blood Pressure 142/41 H Pulse Oximetry 93 Oxygen Delivery Oxygen Flow Rate Fraction of Inspired Oxygen 11/09/24 08:39 Temperature Pulse Rate Respiratory Rate Blood Pressure Pulse Oximetry 92 Oxygen Delivery High Flow Nasal Cannula Oxygen Flow Rate 4 Fraction of Inspired Oxygen Intake/Output Intake/Output: Intake & Output 11/06/24 11/07/24 11/08/24 11/09/24 23:59 23:59 23:59 23:59 Intake Total 754.3 1175.1 540 700 Output Total 1400 900 975 250 Balance -645.7 275.1 -435 450 Meds/Results Medications: Active Medications Generic Name Dose Route Start Last Admin Trade Name Freq PRN Reason Stop Dose Admin Acetaminophen 650 mg 11/06/24 12:18 11/09/24 04:23 Acetaminophen 325 Mg Tablet PO 650 mg Q4H PRN Administration Headache Alprazolam 0.25 mg 11/03/24 19:16 11/06/24 00:11 Alprazolam (*Crx) 0.25 Mg Tablet PO 0.25 mg QHS PRN Administration Anxiety Apixaban 5 mg 11/08/24 21:45 11/09/24 08:37 Apixaban 5 Mg Tablet PO 5 mg Q12HR KEVIN Administration Cyclosporine 1 drop 11/03/24 21:00 11/08/24 21:43 Cyclosporine 0.4 Ml Ophth Solution EACH EYE 1 drop Q12HR KEVIN Administration Metronidazole 500 mg in 100 mls @ 100 mls/hr 11/08/24 13:00 11/09/24 06:37 Flagyl 500 Mg/Iso Soln 100 Ml IVPB Infused Q8HR KEVIN Infusion Piperacillin Sod/Tazobactam 50 mls @ 100 mls/hr 11/09/24 00:00 11/09/24 08:37 Sod 2.25 gm/ Sodium Chloride IVPB 100 mls/hr Q8H KEVIN Administration Metoprolol Tartrate 50 mg 11/08/24 09:00 11/09/24 08:37 Metoprolol Tartrate 50 Mg Tab PO 50 mg BID KEVIN Administration Simvastatin 20 mg 11/04/24 09:00 11/09/24 08:37 Simvastatin 20 Mg Tablet PO 20 mg DAILY KEVIN Administration Sodium Bicarbonate 650 mg 11/05/24 17:00 11/09/24 08:37 Sodium Bicarbonate Tab 650 Mg Tablet PO 650 mg BID KEVIN Administration Sodium Chloride 10 ml 11/06/24 22:00 11/09/24 05:37 Central Line Flush IV PUSH 10 ml Q8HR KEVIN Administration Sodium Chloride 10 ml 11/06/24 14:29 Central Line Flush IV PUSH PRN PRN with TPN bag changes Sodium Chloride 20 ml 11/06/24 14:29 Central Line Flush IV PUSH PRN PRN after blood draws Trazodone HCl 50 mg 11/03/24 21:00 11/08/24 21:39 Trazodone Hcl 50 Mg Tablet PO 50 mg QHS KEVIN Administration Vancomycin HCl 500 mg 11/06/24 08:15 11/09/24 05:37 Vancomycin Hcl 250 Mg Oral Capsule PO 500 mg Q6HR KEVIN Administration Radiology Results: ITS Impressions Abdomen/Pelvis CT 11/04/24 12:36 IMPRESSION: 1. No evidence of bowel perforation. 2. Persistent severe pancolitis. 3. New small scattered ascites. 4. New small pleural effusions and significant bibasilar atelectasis. Renal Ultrasound 11/04/24 19:07 Impression: Simple appearing left renal cyst. No significant medical renal disease or obstruction Abdomen X-Ray 11/05/24 16:02 Impression: 1. Findings concerning for small bowel obstruction. CT is suggested Chest/Abdomen/Pelvis CT 11/05/24 17:04 IMPRESSION: 1. Diffuse colitis detailed above, correlate for underlying pseudomembranous colitis. No perforation or abscess. Follow-up recommended to assess. 2. CHF with superimposed probable bronchopneumonia. 3. Incidental findings above. Contrast-enhanced MRI recommended Head CT 11/06/24 12:46 Impression: 1.No acute intracranial abnormality. Thoracentesis Ultrasound 11/08/24 11:36 IMPRESSION: 1. Successful ultrasound-guided thoracentesis yielding 250 mL of yellow fluid. Chest X-Ray 11/09/24 08:11 Impression: Bilateral pneumonia. The findings are progressed compared to the previous study Labs Labs: Laboratory Results - last 24 hr 11/04/24 11/06/24 11/07/24 13:05 13:11 04:35 WBC RBC Hgb Hct MCV MCH MCHC RDW Plt Count MPV Immature Gran % (Auto) Neut % (Auto) Lymph % (Auto) [place] % (Auto) Eos % (Auto) Baso % (Auto) Lymph # (Auto) [place] # (Auto) Eos # (Auto) Baso # (Auto) Abs Immat Gran (auto) Absolute Neuts (auto) Absolute Nucleated RBC Nucleated RBC % Sodium Potassium Chloride Carbon Dioxide Anion Gap BUN Creatinine Estim Creat Clear Calc Estimated GFR Glucose Calcium Phosphorus Magnesium Total Bilirubin AST ALT Alkaline Phosphatase Total Protein Albumin Urine Total Protein 58.1 Urine Albumin (PEP) 24.3 U [id number] 1.7 U [id number] 24.3 U Beta Globulin 26.9 U Gamma Globulin 22.8 U Random M-Teto (%) Comment: Urine PEP Note Comment Pleural Fluid Source Pleural Color Pleural Appearance Pleural pH Pleural RBC Pleural Nuc Cells Pleural Neutrophils Pleural Lymphocytes Pleural Monocytes Pleural Macrophages Pleural Mesothelial Stool Neutral Fats Normal Stool Total Fats Normal Chlamy pneumoniae PCR Adenovirus (PCR) B. pertussis DNA (PCR) B.parapertussis DNA PCR Coronavirus OC43 (PCR) Coronavirus HKU1 (PCR) Coronavirus 229E (PCR) Coronavirus NL63 (PCR) Hep B Core Total Ab Cancelled Human Metapneumovir PCR Influenza A (RT-PCR) Influenza A (H1) PCR Influ A () PCR Influenza A (H3) PCR Influenza Type A (PCR) Influenza B (RT-PCR) Influenza Type B (PCR) M.pneumoniae IgM Titer M. pneumoniae (PCR) Parainfluenza 1 (PCR) Parainfluenza 2 (PCR) Parainfluenza 3 (PCR) Parainfluenza 4 (PCR) RSV (RT-PCR) RSV (PCR) Entero/Rhino (PCR) SARS-CoV-2 (PCR) SARS-CoV-2 RNA (RT-PCR) 11/07/24 11/08/24 11/09/24 04:37 10:58 05:44 WBC 18.2 H RBC 3.54 L Hgb 10.9 L Hct 31.8 L MCV 89.8 MCH 30.8 MCHC 34.3 RDW 13.2 Plt Count 365 MPV 9.5 Immature Gran % (Auto) 2.7 H Neut % (Auto) 87.6 H Lymph % (Auto) 4.3 L [place] % (Auto) 4.6 Eos % (Auto) 0.3 Baso % (Auto) 0.5 Lymph # (Auto) 0.79 L [place] # (Auto) 0.8 H Eos # (Auto) 0.1 Baso # (Auto) 0.1 Abs Immat Gran (auto) 0.49 H Absolute Neuts (auto) 16.0 H Absolute Nucleated RBC 0.000 Nucleated RBC % 0.0 Sodium 123 L Potassium 3.8 Chloride 94 L Carbon Dioxide 15 L Anion Gap 14 H BUN 88 H D Creatinine 4.10 H Estim Creat Clear Calc 10 Estimated GFR 11 L Glucose 93 Calcium 7.4 L Phosphorus 7.5 H Magnesium 1.8 Total Bilirubin 0.5 AST 43 H ALT 27 Alkaline Phosphatase 128 H Total Protein 5.1 L Albumin 2.6 L Urine Total Protein Urine Albumin (PEP) U [id number] U Pxcxy-6-[id number] U Beta Globulin U Gamma Globulin U Random M-Teto (%) Urine PEP Note Pleural Fluid Source Pleural fluid Pleural Color Yellow Pleural Appearance Hazy Pleural pH 7.463 Pleural RBC < 2000 Pleural Nuc Cells 874 Pleural Neutrophils 26 H Pleural Lymphocytes 2 Pleural Monocytes 7 Pleural Macrophages 57 Pleural Mesothelial 8 Stool Neutral Fats Stool Total Fats Chlamy pneumoniae PCR Cancelled Adenovirus (PCR) Cancelled B. pertussis DNA (PCR) Cancelled B.parapertussis DNA PCR Cancelled Coronavirus OC43 (PCR) Cancelled Coronavirus HKU1 (PCR) Cancelled Coronavirus 229E (PCR) Cancelled Coronavirus NL63 (PCR) Cancelled Hep B Core Total Ab Human Metapneumovir PCR Cancelled Influenza A (RT-PCR) Negative Influenza A (H1) PCR Cancelled Influ A (H1/) PCR Cancelled Influenza A (H3) PCR Cancelled Influenza Type A (PCR) Cancelled Influenza B (RT-PCR) Negative Influenza Type B (PCR) Cancelled M.pneumoniae IgM Titer <770 M. pneumoniae (PCR) Cancelled Parainfluenza 1 (PCR) Cancelled Parainfluenza 2 (PCR) Cancelled Parainfluenza 3 (PCR) Cancelled Parainfluenza 4 (PCR) Cancelled RSV (RT-PCR) Negative RSV (PCR) Cancelled Entero/Rhino (PCR) Cancelled SARS-CoV-2 (PCR) Cancelled SARS-CoV-2 RNA (RT-PCR) Negative
--- NOTE | 2024-11-09 13:25 | PC.NURSE ---
Spoke with DR SHAW who gave order to d/c heparin orders and continue holding eliquis. Order read back and verified.
--- NOTE | 2024-11-09 13:54 | P.PNNP_ITS ---
Progress Note: A&P Assessment and Plan (1) Acute kidney injury: Code(s): N17.9 - Acute kidney failure, unspecified Status: Acute Assessment and Plan: * continues to fluctuate * as noted by admission labs (creatinine of 3.03mg/dL) * creatinine normal 2 days prior to admission * baseline creatinine runs ~ 0.9 - 1.1mg/dL * suspect multifactorial etiology: * prerenal factors * infection/early sepsis (diverticulitis/colitis) * contrast exposure (CT of A/P on 11/01) * relative hypotension on presentation * JAMIE-I/diuretic use prior to admission * urinary retention(?) - difficulty urinating on admission so gamble catheter placed * other (?) * off IVFs due to concerns for volume overload * evaluation to date noted: * renal ultrasound without obstruction * urine electrolytes prerenal * urine eosinophils negative * CPK normal * mild proteinuria * holding lisinopril and spironolactone * remains at risk for POCKET CUTTER/hemodialysis -- see discussion below * still somewhat responsive to diuretic therapy * follow trend of repeat labs and UOP (2) Pancolitis: Code(s): K52.9 - Noninfective gastroenteritis and colitis, unspecified Status: Acute Assessment and Plan: * as noted by CT imaging to date: * CT of C/A/P (11/05): Diffuse colitis detailed above, correlate for underlying pseudomembranous colitis. No perforation or abscess * CT of A/P (11/04): No evidence of bowel perforation; persistent severe pancolitis * CT of A/P (11/03): Interval progression of radiographically uncomplicated selby colitis which could be infectious, inflammatory or less likely ischemic in etiology * CT of A/P (11/01): Sigmoid diverticulitis. No perforation or abscess * follow culture data * follow trend of WBC * on antibiotics * Infectious Disease following (3) Acute hypoxic respiratory failure: Code(s): J96.01 - Acute respiratory failure with hypoxia Status: Acute Assessment and Plan: * improvement noted * multifactorial etiology: * bilateral pleural effusions * atelectasis * fluid overload * atrial flutter with rapid ventricular response * pancolitis * possible pneumonia (?) * diuresis as tolerated * s/p thoracentesis (on 11/08) * antibiotics for possible pneumonia * Pulmonary following with recommendations noted * follow respiratory status (4) Metabolic acidosis: Code(s): E87.20 - Acidosis, unspecified Status: Acute Assessment and Plan: * due to DONOVAN/ARF and GI symptoms * fluctuating lactic acid levels noted * bicarb IVFs not being given due to concerns about fluid overload * on oral sodium bicarbonate * follow repeat labs (5) Hyponatremia: Code(s): E87.1 - Hypo-osmolality and hyponatremia Status: Acute Assessment and Plan: * as noted on admission * possible chronic component -- sodium seems to run 129 - 136mmol/L since 2021 * presumably worsen by: * DONOVAN/ARF * prerenal factors * pleural effusions * possible pneumonia * urinary retention * mild improvement s/p IVF resuscitation * follow trend of sodium (6) Atrial flutter: Code(s): I48.92 - Unspecified atrial flutter Status: Acute Assessment and Plan: * as noted by events early on 11/05 * attempting rate control strategy * Cardiology recommendations noted * on metoprolol * was on IV amiodarone (temporary measure) * Echo noted (on 11/07) * left ventricular systolic function is hyperdynamic, estimated at > 70% * left ventricular diastolic function is grade I diastolic dysfunction * no aortic valve stenosis * mild tricuspid valve regurgitation * anticoagulation on hold (7) Elevated troponin: Code(s): R79.89 - Other specified abnormal findings of blood chemistry Status: Acute Assessment and Plan: * due to DONOVAN versus atrial fluttter with RVR * trend noted * Cardiology already following (8) Hypertension: Code(s): I10 - Essential (primary) hypertension Status: Chronic Assessment and Plan: * reasonable control * holding JAMIE-I and diuretics due to #1 * however, may need further diuresis given #3 * follow trend of hemodynamics Long extensive discussion (>20 minutes) with the patient regarding her fluctuating kidney function in association with evidence of volume overload, hyponatremia, metabolic acidosis, and rising BUN /creatinine. I voiced my concerns that we may be getting to a point where we may have to consider renal replacement therapy/dialysis in effort to further/better optimize her volume status and correct her electrolytes along with stabilize her acid-base status. I discussed in detail what dialysis is and what it entails including placement of a dialysis catheter as well as the risks/benefits of the procedures involved and attempted to answer the patient's questions to the best of my abilities. She appeared to voice understanding and was willing to proceed with dialysis if this was something that needs to be done. I will give a trial of high-dose IV diuretic therapy today in effort to see if this promotes better urine output/improvement in her renal function and if her morning labs show worsening of her kidney function, then will proceed with surgical consultation for placement of a temporary dialysis catheter and initiation of renal replacement therapy/ dialysis. Case discussed with Dr. Appiah as well as Dr. Liu. Will continue to follow. L Subjective Date/time seen: 11/09/24 13:54 Interval history: Follow-up for acute kidney injury/acute renal failure. Some improvement in breathing/respiratory status following thoracentesis yesterday; unfortunately, her urine output seems to have declined with associated rise in BUN and creatinine; still with hyponatremia and persistent metabolic acidosis as well; no other acute issues/events overnight or earlier this morning. Exam 2 Narrative: General: elderly but WD/WN female in NAD Heart: tachycardic, normal S1 and S2; no rub Lungs: coarse and decreased at bases Abdomen: soft, mild distension with +TTP, positive bowel sounds Extremities: no cyanosis or clubbing; no edema Skin: no nodules Objective Data Vital Signs Vital Signs: Vital Signs Temp Pulse Resp BP Pulse Ox O2 Del Method O2 Flow Rate 11/09/24 12:00 98 F 67 20 149/46 H 92 11/09/24 12:00 61 11/09/24 12:00 93 High Flow Nasal Cannula 3 11/09/24 10:00 68 11/09/24 08:39 92 High Flow Nasal Cannula 4 11/09/24 08:37 66 11/09/24 08:00 73 11/09/24 08:00 91 High Flow Nasal Cannula 3 11/09/24 07:36 97.6 F 63 20 142/41 H 93 11/09/24 06:00 58 L 11/09/24 04:00 62 11/09/24 04:00 93 High Flow Nasal Cannula 5 11/09/24 03:59 97.5 F L 65 22 H 155/40 H 93 11/09/24 02:00 60 11/09/24 00:00 90 High Flow Nasal Cannula 5 11/09/24 00:00 60 11/08/24 23:48 97.6 F 61 22 H 136/63 91 11/08/24 22:00 58 L 11/08/24 20:33 91 High Flow Nasal Cannula 6 11/08/24 20:00 91 High Flow Nasal Cannula 5 11/08/24 20:00 64 11/08/24 19:55 97.6 F 66 22 H 140/61 92 11/08/24 18:00 63 Intake/Output Intake/Output: Intake & Output 11/06/24 11/07/24 11/08/24 11/09/24 23:59 23:59 23:59 23:59 Intake Total 754.3 1175.1 540 990 Output Total 1400 900 975 250 Balance -645.7 275.1 -435 740 Meds/Results Medications: Active Medications Generic Name Dose Route Start Last Admin Trade Name Freq PRN Reason Stop Dose Admin Acetaminophen 650 mg 11/06/24 12:18 11/09/24 13:38 Acetaminophen 325 Mg Tablet PO 650 mg Q4H PRN Administration Headache Alprazolam 0.25 mg 11/03/24 19:16 11/06/24 00:11 Alprazolam (*Crx) 0.25 Mg Tablet PO 0.25 mg QHS PRN Administration Anxiety Apixaban 5 mg 11/08/24 21:45 11/09/24 08:37 Apixaban 5 Mg Tablet PO 5 mg On Hold: 11/09/24 09:14 Q12HR KEVIN Administration Cyclosporine 1 drop 11/03/24 21:00 11/09/24 11:53 Cyclosporine 0.4 Ml Ophth Solution EACH EYE Not Given Q12HR KEVIN Metronidazole 500 mg in 100 mls @ 100 mls/hr 11/08/24 13:00 11/09/24 13:41 Flagyl 500 Mg/Iso Soln 100 Ml IVPB 100 mls/hr Q8HR KEVIN Administration Piperacillin Sod/Tazobactam 50 mls @ 100 mls/hr 11/09/24 00:00 11/09/24 16:57 Sod 2.25 gm/ Sodium Chloride IVPB 100 mls/hr Q8H KEVIN Administration Metoprolol Tartrate 50 mg 11/08/24 09:00 11/09/24 16:56 Metoprolol Tartrate 50 Mg Tab PO 50 mg BID KEVIN Administration Simvastatin 20 mg 11/04/24 09:00 11/09/24 08:37 Simvastatin 20 Mg Tablet PO 20 mg DAILY KEVIN Administration Sodium Bicarbonate 650 mg 11/05/24 17:00 11/09/24 16:56 Sodium Bicarbonate Tab 650 Mg Tablet PO 650 mg BID KEVIN Administration Sodium Chloride 10 ml 11/06/24 22:00 11/09/24 13:41 Central Line Flush IV PUSH 10 ml Q8HR KEVIN Administration Sodium Chloride 10 ml 11/06/24 14:29 Central Line Flush IV PUSH PRN PRN with TPN bag changes Sodium Chloride 20 ml 11/06/24 14:29 Central Line Flush IV PUSH PRN PRN after blood draws Trazodone HCl 50 mg 11/03/24 21:00 11/08/24 21:39 Trazodone Hcl 50 Mg Tablet PO 50 mg QHS KEVIN Administration Vancomycin HCl 500 mg 11/06/24 08:15 11/09/24 16:56 Vancomycin Hcl 250 Mg Oral Capsule PO 500 mg Q6HR KEVIN Administration Radiology Results: ITS Impressions Abdomen/Pelvis CT 11/04/24 12:36 IMPRESSION: 1. No evidence of bowel perforation. 2. Persistent severe pancolitis. 3. New small scattered ascites. 4. New small pleural effusions and significant bibasilar atelectasis. Renal Ultrasound 11/04/24 19:07 Impression: Simple appearing left renal cyst. No significant medical renal disease or obstruction Abdomen X-Ray 11/05/24 16:02 Impression: 1. Findings concerning for small bowel obstruction. CT is suggested Chest/Abdomen/Pelvis CT 11/05/24 17:04 IMPRESSION: 1. Diffuse colitis detailed above, correlate for underlying pseudomembranous colitis. No perforation or abscess. Follow-up recommended to assess. 2. CHF with superimposed probable bronchopneumonia. 3. Incidental findings above. Contrast-enhanced MRI recommended Head CT 11/06/24 12:46 Impression: 1.No acute intracranial abnormality. Thoracentesis Ultrasound 11/08/24 11:36 IMPRESSION: 1. Successful ultrasound-guided thoracentesis yielding 250 mL of yellow fluid. Chest X-Ray 11/09/24 08:11 Impression: Bilateral pneumonia. The findings are progressed compared to the previous study Labs Labs: Laboratory Tests 11/09/24 05:44 11/09/24 05:44 Calcium 7.4 L Phosphorus 7.5 H Magnesium 1.8 Total Bilirubin 0.5 AST 43 H ALT 27 Alkaline Phosphatase 128 H Total Protein 5.1 L Albumin 2.6 L Microbiology 11/08/24 14:35 Stool Clostridium difficile Toxin A & B - Final 11/08/24 10:58 Pleural Fluid AFB Specimen Processing - Final 11/08/24 10:58 Pleural Fluid Acid Fast Bacilli Smear - Final 11/08/24 10:58 Pleural Fluid Acid Fast Bacilli Culture - Preliminary 11/06/24 17:15 Stool Salmonella/Shigella Screen - Final 11/06/24 17:15 Stool Shiga Toxin (EIA) - Final 11/06/24 15:18 Urine - Urine gamble port Legionella pneumophila Serogrp 1 Ag - Final 11/03/24 14:38 Blood Blood Culture - Final 11/03/24 14:47 Blood Blood Culture - Final
[2024-11-09 15:09] LABS: Albumin, Body Fluid 1.7 g/dL (Not Estab.); Glucose, Body Fluid 106 mg/dL (.)
[2024-11-09 15:09] LABS: LD, Body Fluid 226 IU/L (.)
[2024-11-09 17:41] LABS: Toxigenic C. Diff POSITIVE (NEGATIVE)
[2024-11-09] MEDS: BUMETANIDE INJ 2.5 MG/10 ML VIAL IV PUSH (18:15)
--- NOTE | 2024-11-09 18:33 | P.PNIM_ITS ---
Progress Note: A&P Assessment and Plan (1) Colitis: Code(s): K52.9 - Noninfective gastroenteritis and colitis, unspecified Status: Acute Assessment and Plan: According to the patient, she was completely healthy until last Wednesday. On 11/01/2024, the patient started with abdominal pain, came to the ED, and was diagnosed with diverticulitis and discharged with outpatient antibiotics. On , the patient began to decline and returned on Wednesday. The patient was admitted in the setting of colitis. The patient had multiple episodes of diarrhea. Patient has a new onset of pleural effusion, AFib with RVR, and DONOVAN. Currently, Eliquis is on hold for a possible thoracentesis scheduled for tomorrow. Patient cardioversion has been canceled due to sinus rhythm. Patient is presently on amiodarone drip and metoprolol 25 mg p.o. q.8 hours and digoxin 250 mcg IV q.d.. Patient is currently on Zosyn and oral vancomycin for colitis and C diff. Abd Xray this morning suggestive of SBO CT AP stat showed Pseudomembranous colitis Continue ZOsyn and PO vancomycin 500 Po q6 monitor leukocytosis, and WBC monitor closely (2) Acute kidney injury: Code(s): N17.9 - Acute kidney failure, unspecified Status: Acute Assessment and Plan: Infection vs Contrast related injury vs prerenal BMP in the morning Continue to monitor urine output patient received IV contrast on 11/01/2024, prior to this study her BUN and creatinine were normal Nephrology following Possible dialysis (3) Anxiety: Code(s): F41.9 - Anxiety disorder, unspecified Status: Acute Assessment and Plan: Restart home Xanax (4) Hyperlipidemia: Qualifiers: Hyperlipidemia type: unspecified Qualified Code(s): E78.5 - Hyperlipidemia, unspecified Code(s): E78.5 - Hyperlipidemia, unspecified Status: Acute Assessment and Plan: Restart home statin (5) Hypertension: Code(s): I10 - Essential (primary) hypertension Status: Chronic Assessment and Plan: Holding home antihypertensives due to severe dehydration monitor blood pressures and restart once indicated Plan Atrial flutter with RVR Now on Amiodarone, metoprolol and Digoxin Monitor HR ELiquis on hold for dialysis catheter placement Cardiology following Pseudomembranous colitis Continue PO Vancomycin and Zosyn IV gentle rehydration C diff positive monitor Hyponatremia Na 126 will restart IVF pending clinical course Acute hypoxemic respiratory failure From fluid overload vs pneumonia r/o CHF ECHO from 10/08 normal left ventricular function CT chest showed bilateral pleural effusion with possibel consolidation Continue Zosyn, follow up cultures Thoracentesis performed on 11/08 Pleural studies shows no evidence of empyema Following pulmonology recommendation DVT prophylaxis on SCDs, Eliquis on hold Subjective Date/time seen: 11/09/24 18:33 Interval history: Patient C diff is positive. Possibly will initiated dialysis soon. Discussed with gandy dancer who will consult surgery for placement of dialysis catheter tomorrow. Patient positive for C diff Review of Systems Review of Systems: 12 systems were reviewed and are negativ e except for as per HPI. Exam Narrative: General: in mild distress due to pain, appears stated age. HEENT: normocephalic, atraumatic. Mucous membranes dry. EOMI, PERRLA, bilateral sclera anicteric, no conjunctival injection. Neck supple without JVD, lymphadenopathy, or bruit. Respiratory: clear to ascultation bilaterally. No rales/rhonic/wheezes. Cardiovascular: Regular rate and rhythm, normal S1-S2 upon ascultation. No murmurs, rubs, or clicks. PMI is nondisplaced, capillary refill less than 3 second. Abdomen: Soft, distended, tender to light palpation, guarding present. Bowel sounds present to all four quadrants. Extremities: No cyanosis, clubbing, or edema present. Pulses are palpable 2/2. Active ROM to all four extremities. Neuro: Alert and orientated x 4. PERRLA. Cranial nerves 2-12 intact without focal deficit. Skin: Warm, dry, and intact, without rash, erythema, or lesion. Psych: pleasant, cooperative, normal speech, normal affect, no hallucinations, no dysarthia Objective Data Vital Signs Vital Signs: Vital Signs - 24 hr 11/08/24 19:55 11/08/24 20:00 11/08/24 20:00 Temperature 97.6 F Pulse Rate 66 64 Respiratory Rate 22 H Blood Pressure 140/61 Pulse Oximetry 92 91 Oxygen Delivery High Flow Nasal Cannula Oxygen Flow Rate 5 11/08/24 20:33 11/08/24 22:00 11/08/24 23:48 Temperature 97.6 F Pulse Rate 58 L 61 Respiratory Rate 22 H Blood Pressure 136/63 Pulse Oximetry 91 91 Oxygen Delivery High Flow Nasal Cannula Oxygen Flow Rate 6 11/09/24 00:00 11/09/24 00:00 11/09/24 02:00 Temperature Pulse Rate 60 60 Respiratory Rate Blood Pressure Pulse Oximetry 90 Oxygen Delivery High Flow Nasal Cannula Oxygen Flow Rate 5 11/09/24 03:59 11/09/24 04:00 11/09/24 04:00 Temperature 97.5 F L Pulse Rate 65 62 Respiratory Rate 22 H Blood Pressure 155/40 H Pulse Oximetry 93 93 Oxygen Delivery High Flow Nasal Cannula Oxygen Flow Rate 5 11/09/24 06:00 11/09/24 07:36 11/09/24 08:00 Temperature 97.6 F Pulse Rate 58 L 63 Respiratory Rate 20 Blood Pressure 142/41 H Pulse Oximetry 93 91 Oxygen Delivery High Flow Nasal Cannula Oxygen Flow Rate 3 11/09/24 08:00 11/09/24 08:37 11/09/24 08:39 Temperature Pulse Rate 73 66 Respiratory Rate Blood Pressure Pulse Oximetry 92 Oxygen Delivery High Flow Nasal Cannula Oxygen Flow Rate 4 11/09/24 10:00 11/09/24 12:00 11/09/24 12:00 Temperature Pulse Rate 68 61 Respiratory Rate Blood Pressure Pulse Oximetry 93 Oxygen Delivery High Flow Nasal Cannula Oxygen Flow Rate 3 11/09/24 12:00 11/09/24 14:00 11/09/24 16:00 Temperature 98 F 98.2 F Pulse Rate 67 61 62 Respiratory Rate 20 18 Blood Pressure 149/46 H 158/49 H Pulse Oximetry 92 92 Oxygen Delivery Oxygen Flow Rate 11/09/24 16:00 11/09/24 16:00 11/09/24 16:56 Temperature Pulse Rate 58 L 61 Respiratory Rate Blood Pressure Pulse Oximetry 91 Oxygen Delivery High Flow Nasal Cannula Oxygen Flow Rate 3 11/09/24 18:00 Temperature Pulse Rate 57 L Respiratory Rate Blood Pressure Pulse Oximetry Oxygen Delivery Oxygen Flow Rate Intake/Output Intake/Output: Intake & Output 11/06/24 11/07/24 11/08/24 11/09/24 23:59 23:59 23:59 23:59 Intake Total 754.3 1175.1 540 1240 Output Total 1400 900 975 700 Balance -645.7 275.1 -435 540 Meds/Results Medications: Active Medications Generic Name Dose Route Start Last Admin Trade Name Freq PRN Reason Stop Dose Admin Acetaminophen 650 mg 11/06/24 12:18 11/09/24 13:38 Acetaminophen 325 Mg Tablet PO 650 mg Q4H PRN Administration Headache Alprazolam 0.25 mg 11/03/24 19:16 11/06/24 00:11 Alprazolam (*Crx) 0.25 Mg Tablet PO 0.25 mg QHS PRN Administration Anxiety Apixaban 5 mg 11/08/24 21:45 11/09/24 08:37 Apixaban 5 Mg Tablet PO 5 mg On Hold: 11/09/24 09:14 Q12HR KEVIN Administration Cyclosporine 1 drop 11/03/24 21:00 11/09/24 11:53 Cyclosporine 0.4 Ml Ophth Solution EACH EYE Not Given Q12HR KEVIN Metronidazole 500 mg in 100 mls @ 100 mls/hr 11/08/24 13:00 11/09/24 18:13 Flagyl 500 Mg/Iso Soln 100 Ml IVPB Infused Q8HR KEVIN Infusion Piperacillin Sod/Tazobactam 50 mls @ 100 mls/hr 11/09/24 00:00 11/09/24 18:24 Sod 2.25 gm/ Sodium Chloride IVPB Infused Q8H KEVIN Infusion Metoprolol Tartrate 50 mg 11/08/24 09:00 11/09/24 16:56 Metoprolol Tartrate 50 Mg Tab PO 50 mg BID KEVIN Administration Simvastatin 20 mg 11/04/24 09:00 11/09/24 08:37 Simvastatin 20 Mg Tablet PO 20 mg DAILY KEIVN Administration Sodium Bicarbonate 650 mg 11/05/24 17:00 11/09/24 16:56 Sodium Bicarbonate Tab 650 Mg Tablet PO 650 mg BID KEVIN Administration Sodium Chloride 10 ml 11/06/24 22:00 11/09/24 13:41 Central Line Flush IV PUSH 10 ml Q8HR KEVIN Administration Sodium Chloride 10 ml 11/06/24 14:29 Central Line Flush IV PUSH PRN PRN with TPN bag changes Sodium Chloride 20 ml 11/06/24 14:29 Central Line Flush IV PUSH PRN PRN after blood draws Trazodone HCl 50 mg 11/03/24 21:00 11/08/24 21:39 Trazodone Hcl 50 Mg Tablet PO 50 mg QHS KEVIN Administration Vancomycin HCl 500 mg 11/06/24 08:15 11/09/24 16:56 Vancomycin Hcl 250 Mg Oral Capsule PO 500 mg Q6HR KEVIN Administration Radiology Results: ITS Impressions Abdomen/Pelvis CT 11/04/24 12:36 IMPRESSION: 1. No evidence of bowel perforation. 2. Persistent severe pancolitis. 3. New small scattered ascites. 4. New small pleural effusions and significant bibasilar atelectasis. Renal Ultrasound 11/04/24 19:07 Impression: Simple appearing left renal cyst. No significant medical renal disease or obstruction Abdomen X-Ray 11/05/24 16:02 Impression: 1. Findings concerning for small bowel obstruction. CT is suggested Chest/Abdomen/Pelvis CT 11/05/24 17:04 IMPRESSION: 1. Diffuse colitis detailed above, correlate for underlying pseudomembranous colitis. No perforation or abscess. Follow-up recommended to assess. 2. CHF with superimposed probable bronchopneumonia. 3. Incidental findings above. Contrast-enhanced MRI recommended Head CT 11/06/24 12:46 Impression: 1.No acute intracranial abnormality. Thoracentesis Ultrasound 11/08/24 11:36 IMPRESSION: 1. Successful ultrasound-guided thoracentesis yielding 250 mL of yellow fluid. Chest X-Ray 11/09/24 08:11 Impression: Bilateral pneumonia. The findings are progressed compared to the previous study Labs Labs: Laboratory Results - last 24 hr 11/08/24 11/08/24 11/09/24 10:58 10:59 05:44 WBC 18.2 H RBC 3.54 L Hgb 10.9 L Hct 31.8 L MCV 89.8 MCH 30.8 MCHC 34.3 RDW 13.2 Plt Count 365 MPV 9.5 Immature Gran % (Auto) 2.7 H Neut % (Auto) 87.6 H Lymph % (Auto) 4.3 L [place] % (Auto) 4.6 Eos % (Auto) 0.3 Baso % (Auto) 0.5 Lymph # (Auto) 0.79 L [place] # (Auto) 0.8 H Eos # (Auto) 0.1 Baso # (Auto) 0.1 Abs Immat Gran (auto) 0.49 H Absolute Neuts (auto) 16.0 H Absolute Nucleated RBC 0.000 Nucleated RBC % 0.0 Sodium 123 L Potassium 3.8 Chloride 94 L Carbon Dioxide 15 L Anion Gap 14 H BUN 88 H D Creatinine 4.10 H Estim Creat Clear Calc 10 Estimated GFR 11 L Glucose 93 Calcium 7.4 L Phosphorus 7.5 H Magnesium 1.8 Total Bilirubin 0.5 AST 43 H ALT 27 Alkaline Phosphatase 128 H Total Protein 5.1 L Albumin 2.6 L Fluid Glucose 106 Fluid Total Protein 2.7 Fluid Albumin 1.7 Fluid LDH 226 Chlamy pneumoniae PCR Cancelled Adenovirus (PCR) Cancelled B. pertussis DNA (PCR) Cancelled B.parapertussis DNA PCR Cancelled C. difficile (PCR) Coronavirus OC43 (PCR) Cancelled Coronavirus HKU1 (PCR) Cancelled Coronavirus 229E (PCR) Cancelled Coronavirus NL63 (PCR) Cancelled Human Metapneumovir PCR Cancelled Influenza A (RT-PCR) Negative Influenza A (H1) PCR Cancelled Influ A () PCR Cancelled Influenza A (H3) PCR Cancelled Influenza Type A (PCR) Cancelled Influenza B (RT-PCR) Negative Influenza Type B (PCR) Cancelled M. pneumoniae (PCR) Cancelled Parainfluenza 1 (PCR) Cancelled Parainfluenza 2 (PCR) Cancelled Parainfluenza 3 (PCR) Cancelled Parainfluenza 4 (PCR) Cancelled RSV (RT-PCR) Negative RSV (PCR) Cancelled Entero/Rhino (PCR) Cancelled SARS-CoV-2 (PCR) Cancelled SARS-CoV-2 RNA (RT-PCR) Negative 11/09/24 16:36 WBC RBC Hgb Hct MCV MCH MCHC RDW Plt Count MPV Immature Gran % (Auto) Neut % (Auto) Lymph % (Auto) [place] % (Auto) Eos % (Auto) Baso % (Auto) Lymph # (Auto) [place] # (Auto) Eos # (Auto) Baso # (Auto) Abs Immat Gran (auto) Absolute Neuts (auto) Absolute Nucleated RBC Nucleated RBC % Sodium Potassium Chloride Carbon Dioxide Anion Gap BUN Creatinine Estim Creat Clear Calc Estimated GFR Glucose Calcium Phosphorus Magnesium Total Bilirubin AST ALT Alkaline Phosphatase Total Protein Albumin Fluid Glucose Fluid Total Protein Fluid Albumin Fluid LDH Chlamy pneumoniae PCR Adenovirus (PCR) B. pertussis DNA (PCR) B.parapertussis DNA PCR C. difficile (PCR) Positive A* Coronavirus OC43 (PCR) Coronavirus HKU1 (PCR) Coronavirus 229E (PCR) Coronavirus NL63 (PCR) Human Metapneumovir PCR Influenza A (RT-PCR) Influenza A (H1) PCR Influ A () PCR Influenza A (H3) PCR Influenza Type A (PCR) Influenza B (RT-PCR) Influenza Type B (PCR) M. pneumoniae (PCR) Parainfluenza 1 (PCR) Parainfluenza 2 (PCR) Parainfluenza 3 (PCR) Parainfluenza 4 (PCR) RSV (RT-PCR) RSV (PCR) Entero/Rhino (PCR) SARS-CoV-2 (PCR) SARS-CoV-2 RNA (RT-PCR) Quality VTE Prophylaxis VTE prophylaxis: mechanical ordered and pharmacologic ordered Hospitalist MIPS Advance Care Plan I have confirmed that the patient's Advanced Care Plan is present, code status is documented, or surrogate decision maker is listed in patient medical record.: Yes Medication Reconciliation I have utilized all available resources to obtain, update and review the patients current medications (includes all prescriptions, OTC, herbals, cannabis, and nutritional supplements).: Yes
[2024-11-09] MEDS: cycloSPORINE 0.4 ML OPHTH SOLUTION 1 DROP EACH EYE (21:19)
[2024-11-09 21:33] LABS: Hematocrit 32.0 % (37.0-47.0); Hemoglobin 11.0 g/dL (12.0-15.0); Immature Granulocyte Percent A 2.4 % (0-0.5); Lymphocytes Absolute Auto 0.80 K/mm3 (0.9-3.2); Mean Corpuscular HGB Conc 34.4 g/dl (32-36); Mean Corpuscular Hemoglobin 30.9 pg (26-34); Mean Corpuscular Volume 89.9 fl (80-100); Nucleated Red Blood Cells Absolute Auto 0.000 K/mm3 (0.0-0.012); Nucleated Red Blood Cells Perc 0.0 % (0.0-0.2); Platelet Count Result 415 k/mm3 (150-375); Red Blood Count 3.56 M/mm3 (4.2-5.4); White Blood Count 20.5 K/mm3 (4.5-10.0)
[2024-11-10] VITALS (30 sets, daily range): BP systolic 92–151; BP diastolic 41–63; PULSE 59–72; RESP 17–24; TEMP 36.4–37; O2SAT 90–94
[2024-11-10] MEDS: PIPERACILLIN/TAZOBACTAM SOD 2.25 GM in SODIUM CHLORIDE 0.9% IV 50 ML 100 ML IVPB ×2 (00:36→09:00)
[2024-11-10] MEDS: VANCOMYCIN HCL 250 MG ORAL CAPSULE 500 MG PO ×4 (00:36→17:54)
[2024-11-10] MEDS: BUMETANIDE INJ 1 MG/4 ML VIAL IV PUSH (00:36)
[2024-11-10] MEDS: ALPRAZolam (*CRX) 0.25 MG TABLET PO (00:45)
[2024-11-10] MEDS: metroNIDAZOLE 500 MG/ISO 100ML 500 MG/100 ML BAG 100 MG IVPB ×3 (05:14→21:19)
[2024-11-10] MEDS: CENTRAL LINE FLUSH 10 ML IV PUSH ×3 (05:14→21:20)
[2024-11-10 05:24] LABS: Hematocrit 31.7 % (37.0-47.0); Hemoglobin 10.9 g/dL (12.0-15.0); Mean Corpuscular HGB Conc 34.4 g/dl (32-36); Mean Corpuscular Hemoglobin 30.9 pg (26-34); Mean Corpuscular Volume 89.8 fl (80-100); Platelet Count Result 401 k/mm3 (150-375); Red Blood Count 3.53 M/mm3 (4.2-5.4); White Blood Count 21.8 K/mm3 (4.5-10.0)
[2024-11-10 05:44] LABS: Alanine Aminotransferase 22 U/L (6-35); Albumin Level 2.5 g/dL (3.5-5.1); Alkaline Phosphatase 113 U/L (38-126); Anion Gap 16 mmol/L (4-12); Aspartate Amino Transferase 33 U/L (14-36); Bilirubin,Total 0.4 mg/dL (0.2-1.3); Blood Urea Nitrogen 95 mg/dL (7-17); Calcium 7.6 mg/dL (8.4-10.2); Carbon Dioxide 14 mmol/L (22-30); Chloride 92 mmol/L (98-107); Glucose 101 mg/dL (65-110); Magnesium 1.8 mg/dL (1.6-2.3); Potassium 3.6 mmol/L (3.4-5.0); Sodium 122 mmol/L (137-145); Total Protein 4.9 g/dL (6.3-8.2)
[2024-11-10 05:49] LABS: INR 1.7; Prothrombin Time 20.0 Seconds (11.1-14.7)
[2024-11-10 05:56] LABS: Estimated CRCL calculation 9 ml/min; Estimated Glomerular Filt Rate 9
[2024-11-10 08:10] LABS: CRP 8.8 mg/dL (<1.0)
[2024-11-10 08:15] LABS: NT Pro B Type Natriuretic Pept 1940 pg/mL (19.9-100)
[2024-11-10] MEDS: cycloSPORINE 0.4 ML OPHTH SOLUTION 1 DROP EACH EYE ×2 (09:13→21:38)
[2024-11-10] MEDS: SODIUM BICARBONATE TAB 650 MG TABLET PO (09:14)
[2024-11-10] MEDS: METOPROLOL TARTRATE 50 MG TAB PO ×2 (09:14→17:54)
[2024-11-10 09:15] LABS: Procalcitonin 1.8 ng/mL
[2024-11-10] MEDS: SIMVASTATIN 20 MG TABLET PO (09:15)
--- NOTE | 2024-11-10 10:21 | PM.CNGS ---
Assessment and Plan Assessment and plan (1) Acute kidney injury: Code(s): N17.9 - Acute kidney failure, unspecified Status: Acute Assessment and Plan: Patient presented to the ED on 11/03/2024 with complaints of left lower quadrant abdominal pain and diarrhea. CT revealed selby colitis. Rapid response was called 11/05/2024 for tachycardia in the 160s to 170s. She was noted to be in atrial fibrillation. Imaging of the chest has revealed bilateral pleural effusions and now bilateral pneumonia. Patient and acute hypoxic respiratory failure. Patient presented with DONOVAN. Since admission, kidney function has continued to decline. Nephrology requesting placement of temporary hemodialysis catheter. Continue to hold Eliquis for today. Catheter will be placed later in the afternoon. (2) Respiratory failure with hypoxia: Code(s): J96.91 - Respiratory failure, unspecified with hypoxia Status: Acute Assessment and Plan: Continue per pulmonology recommendations. (3) Atrial flutter: Code(s): I48.92 - Unspecified atrial flutter Status: Acute Assessment and Plan: Cardiology on board. Hold Eliquis for today. Plan Discussed patient's case and plan of care with Dr. Aranda. History of Present Illness Consult details Consult date: 11/10/24 Reason for consult: other (placement of temporary dialysis catheter) Requesting physician: Kathy Walsh MD Narrative: Patient is a 78 year old female with history of hypertension and hyperlipidemia who we have been asked to see in surgical consultation for placement of a temporary hemodialysis catheter. Patient first presented to the ED on 11/03 with complaints of LLQ pain and diarrhea. She had previously been seen in the ED 2 days prior and been diagnosed with diverticulitis without abscess. CT demonstrated gastroenteritis and colitis. [place] [address]. Patient was also noted to have DONOVAN. Nephrology on board. A rapid response was called on the patient on 11/05 shortly after midnight after patient became tachycardic to 160-170s after getting out of bed. A chest xray demonstrated atelectasis with likely pulmonary edema. EKG showed afib. Placed on diltiazem. Cardiology consulted. Switched to amiodarone. Oral apixaban started. Repeat CT on 11/06 demonstrated bilateral pleural effusions with small basilar infiltrates, emphysematous changes. Pulmonology consulted. Aggressive diuresis as tolerated. Patient's kidney function has continued to decline since her admission. BUN and Cr now 95 and 4.51, respectively. Nephrology is requesting placement of a temporary dialysis catheter. General surgery team consulted at this time. Patient denies any previous surgeries or procedures to her neck or chest. Patient did test positive for C diff. Eliquis being held. Last given yesterday. [facility] Past Medical History Medical History (Updated 11/10/24 @ 10:34 by Megan Cee MD) Diverticulitis large intestine Anxiety Hyperlipidemia BMI 25.0-25.9,adult Hypertension Family History Family History Father Hypertension Cerebrovascular accident Mother Heart disease Sibling Diabetes mellitus Sibling Diabetes mellitus Social History Social History Smoking status: Never smoker Second hand tobacco smoke exposure: No Alcohol intake: current Substance use: never Substance use type: does not use Lack of Transportation: No Lack of Food: Never True Current Housing: I Have Housing Concerned About Future Housing: No Difficulty Paying Gas/Electric Bills: No Difficulty Paying for Meds: No Currently Unemployed: No Education: High School Diploma/GED Difficulty w/ Childcare or Family Care: No Living arrangements: with family 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 Gender identity (if verbalized by the patient): Female Spiritual care concerns: No Meds Home Medications and Allergies Home Medications ?Medication ?Instructions ?Recorded ?Confirmed ?Type cyclosporine 0.05 % eye drops 1 drp EACH EYE Q12H #5.5 mL 03/18/21 11/03/24 Rx (Restasis MultiDose) terbinafine HCl 250 mg tablet 250 mg PO DAILY 09/03/23 11/03/24 History simvastatin 20 mg tablet (Zocor) 20 mg PO DAILY #90 tabs 04/12/24 11/03/24 Rx amlodipine 10 mg tablet 10 mg PO DAILY #90 tabs 05/16/24 11/03/24 Rx trazodone 50 mg tablet 50 mg PO QHS #90 tabs 05/16/24 11/03/24 Rx spironolactone 50 mg tablet See Rx Instructions .Route 08/07/24 11/03/24 Rx .COMPLEX #90 tabs alprazolam 0.25 mg tablet 0.25 mg PO QHS PRN anxiety #90 tabs 09/26/24 11/03/24 Rx lisinopril 40 mg tablet 40 mg PO DAILY #90 tabs 10/01/24 11/03/24 Rx amoxicillin 875 mg-potassium 1 tablet PO Q12H #14 tabs 11/01/24 11/03/24 Rx clavulanate 125 mg tablet hydrocodone 5 mg-acetaminophen 325 1 tablet PO Q6H PRN pain #12 tabs 11/01/24 11/03/24 Rx mg tablet ondansetron 4 mg disintegrating 4 mg PO Q6H PRN nausea and 11/01/24 11/03/24 Rx tablet vomiting #10 tabs Allergies Allergy/AdvReac Type Severity Reaction Status Date / Time morphine Allergy Itching Verified 11/01/24 11:35 Vital Signs Vital Signs - 24 hr 11/09/24 12:00 11/09/24 12:00 11/09/24 12:00 Temperature 98 F Pulse Rate 61 67 Respiratory Rate 20 Blood Pressure 149/46 H Pulse Oximetry 93 92 Oxygen Delivery High Flow Nasal Cannula Oxygen Flow Rate 3 11/09/24 14:00 11/09/24 16:00 11/09/24 16:00 Temperature 98.2 F Pulse Rate 61 62 58 L Respiratory Rate 18 Blood Pressure 158/49 H Pulse Oximetry 92 Oxygen Delivery Oxygen Flow Rate 11/09/24 16:00 11/09/24 16:56 11/09/24 18:00 Temperature Pulse Rate 61 57 L Respiratory Rate Blood Pressure Pulse Oximetry 91 Oxygen Delivery High Flow Nasal Cannula Oxygen Flow Rate 3 11/09/24 20:00 11/09/24 20:00 11/09/24 20:25 Temperature 98.1 F Pulse Rate 60 59 L 60 Respiratory Rate 18 18 Blood Pressure 137/54 L Pulse Oximetry 94 94 Oxygen Delivery Nasal Cannula Oxygen Flow Rate 3 11/09/24 22:00 11/09/24 23:45 11/10/24 00:00 Temperature 98 F Pulse Rate 58 L 59 L 59 L Respiratory Rate 18 Blood Pressure 151/53 H Pulse Oximetry 93 Oxygen Delivery Oxygen Flow Rate 11/10/24 02:00 11/10/24 04:00 11/10/24 04:00 Temperature 97.9 F Pulse Rate 60 62 62 Respiratory Rate 18 Blood Pressure 121/63 Pulse Oximetry 93 Oxygen Delivery Oxygen Flow Rate 11/10/24 06:00 11/10/24 07:43 11/10/24 08:00 Temperature 98.4 F Pulse Rate 60 67 Respiratory Rate 24 H Blood Pressure 134/45 L Pulse Oximetry 94 93 Oxygen Delivery High Flow Nasal Cannula Oxygen Flow Rate 3 11/10/24 09:14 Temperature Pulse Rate 66 Respiratory Rate Blood Pressure Pulse Oximetry Oxygen Delivery Oxygen Flow Rate Exam Const: General: comfortable and no acute distress Eyes: General: appearance normal, both eyes and all related structures Neck: Neck: supple and no JVD Chest: Other: No scars or abnormal skin changes Resp: Other: slightly tachycardic Cardio: Rate: regular rate Skin: General skin exam: normal color and no rashes or lesions noted Neuro: Speech: normal speech Extrem: General: normal to inspection Results Labs 11/10/24 05:09 11/10/24 05:09 Labs: Abnormal lab results 11/09/24 11/09/24 11/10/24 Range/Units 16:36 21:16 05:09 WBC 20.5 H 21.8 H (4.5-10.0) K/mm3 RBC 3.56 L 3.53 L (4.2-5.4) M/mm3 Hgb 11.0 L 10.9 L (12.0-15.0) g/dL Hct 32.0 L 31.7 L (37.0-47.0) % Plt Count 415 H 401 H (150-375) k/mm3 Immature Gran % (Auto) 2.4 H (0-0.5) % Neut % (Auto) 89.6 H (45.5-73.1) % Lymph % (Auto) 3.9 L (18.3-44.2) % Lymph # (Auto) 0.80 L (0.9-3.2) K/mm3 [place] # (Auto) 0.7 H (0.1-0.6) K/mm3 Abs Immat Gran (auto) 0.50 H (0.00-0.031) K/mm3 Absolute Neuts (auto) 18.3 H (1.3-6.7) K/mm3 PT 20.0 H (11.1-14.7) Seconds Sodium 122 L (137-145) mmol/L Chloride 92 L (98-107) mmol/L Carbon Dioxide 14 L (22-30) mmol/L Anion Gap 16 H (4-12) mmol/L BUN 95 H (7-17) mg/dL Creatinine 4.51 H (0.7-1.0) mg/dL Estimated GFR 9 L (59 - ) Calcium 7.6 L (8.4-10.2) mg/dL Phosphorus 8.4 H (2.5-4.5) mg/dL C-Reactive Protein 8.8 H (<1.0) mg/dL NT-Pro-B Natriuret Pep 1940 H (19.9-100) pg/mL Total Protein 4.9 L (6.3-8.2) g/dL Albumin 2.5 L (3.5-5.1) g/dL C. difficile (PCR) Positive A* (NEGATIVE) Diabetes panel 11/10/24 Range/Units 05:09 Sodium 122 L (137-145) mmol/L Potassium 3.6 (3.4-5.0) mmol/L Chloride 92 L (98-107) mmol/L Carbon Dioxide 14 L (22-30) mmol/L BUN 95 H (7-17) mg/dL Creatinine 4.51 H (0.7-1.0) mg/dL Glucose 101 (65-110) mg/dL Calcium 7.6 L (8.4-10.2) mg/dL AST 33 (14-36) U/L ALT 22 (6-35) U/L Alkaline Phosphatase 113 (38-126) U/L Total Protein 4.9 L (6.3-8.2) g/dL Albumin 2.5 L (3.5-5.1) g/dL Calcium panel 11/10/24 Range/Units 05:09 Calcium 7.6 L (8.4-10.2) mg/dL Phosphorus 8.4 H (2.5-4.5) mg/dL Albumin 2.5 L (3.5-5.1) g/dL Pituitary panel 11/10/24 Range/Units 05:09 Sodium 122 L (137-145) mmol/L Potassium 3.6 (3.4-5.0) mmol/L Chloride 92 L (98-107) mmol/L Carbon Dioxide 14 L (22-30) mmol/L BUN 95 H (7-17) mg/dL Creatinine 4.51 H (0.7-1.0) mg/dL Glucose 101 (65-110) mg/dL Calcium 7.6 L (8.4-10.2) mg/dL Adrenal panel 11/10/24 Range/Units 05:09 Sodium 122 L (137-145) mmol/L Potassium 3.6 (3.4-5.0) mmol/L Chloride 92 L (98-107) mmol/L Carbon Dioxide 14 L (22-30) mmol/L BUN 95 H (7-17) mg/dL Creatinine 4.51 H (0.7-1.0) mg/dL Glucose 101 (65-110) mg/dL Calcium 7.6 L (8.4-10.2) mg/dL Total Bilirubin 0.4 (0.2-1.3) mg/dL AST 33 (14-36) U/L ALT 22 (6-35) U/L Alkaline Phosphatase 113 (38-126) U/L Total Protein 4.9 L (6.3-8.2) g/dL Albumin 2.5 L (3.5-5.1) g/dL All other labs normal.
--- NOTE | 2024-11-10 10:33 | PM.IMPN ---
Progress Note: A&P Assessment and Plan (1) Hypertension: Code(s): I10 - Essential (primary) hypertension Status: Chronic (2) Elevated troponin: Code(s): R79.89 - Other specified abnormal findings of blood chemistry Status: Acute (3) Atrial flutter: Code(s): I48.92 - Unspecified atrial flutter Status: Acute (4) Pancolitis: Code(s): K52.9 - Noninfective gastroenteritis and colitis, unspecified Status: Acute (5) Acute kidney injury: Code(s): N17.9 - Acute kidney failure, unspecified Status: Acute (6) Metabolic acidosis: Code(s): E87.20 - Acidosis, unspecified Status: Acute (7) Acute hypoxic respiratory failure: Code(s): J96.01 - Acute respiratory failure with hypoxia Status: Acute (8) Pleural effusion: Code(s): J90 - Pleural effusion, not elsewhere classified Status: Acute (9) Clostridium difficile colitis: Code(s): A04.72 - Enterocolitis due to Clostridium difficile, not specified as recurrent Status: Acute Plan 78-year-old female with past medical history of hypertension presents the hospital with acute abdominal pain. Patient presented to the emergency room on 11/01/2021 and diagnosed with diverticulitis without abscess and sent home with p.o. antibiotics. She states that she has not improved. Patient complains of explosive diarrhea and abdominal pain knows only increased since she left the hospital couple days ago. She denies nausea and vomiting. Lab work in the ED shows leukocytosis at 21.8 sodium of 123, chloride 91, carbon dioxide 17, anion gap of 15, BUN of 31, creatinine of 3.30 with baseline being 0.99, GFR 15, glucose 241, calcium 7.9, CT abdomen pelvis show Interval progression of radiographically uncomplicated selby colitis which could be infectious, inflammatory or less likely ischemic in etiology. (1) Clostridium difficulty associated colitis: Patient is currently on p.o. vancomycin, IV Flagyl Also on Zosyn Continues to have leukocytosis ID following Continues to have abdominal pain Rectal tube in place (2) Acute kidney injury+ hyponatremia: Infection vs Contrast related injury vs prerenal Kidney function continues to worsen Nephrology is following Plan for temporary dialysis catheter placement by surgery today followed by initiation of dialysis Monitor urine output Nephrology following for hyponatremia Holding lisinopril and Aldactone Will hold statin as well 3. AFib with RVR: Currently in sinus rhythm Continue tele monitoring Eliquis on hold for dialysis catheter placement Appreciate cardiology help Continue metoprolol t 50 mg b.i.d. Digoxin has been stopped due to renal failure 4. Acute hypoxic respiratory failure: Continue with O2 support, currently on 1 L Pulmonary following From fluid overload vs pneumonia r/o CHF ECHO from 10/08 normal left ventricular function CT chest showed bilateral pleural effusion with possible consolidation Continue Zosyn, follow up cultures Thoracentesis performed on 11/08 Pleural studies shows no evidence of empyema 5. Anxiety: Continue with home Xanax 6. Hypertension: Blood pressure medication remains on hold 7. DVT prophylaxis: SCDs, Eliquis on hold as mentioned above 8. Code status: Full 9. Disposition: Pending improvement, critically sick Time Spent With Patient Time: 41 minutes Subjective Date/time seen: 11/10/24 10:33 Interval history: Continues to have abdominal pain Review of Systems Review of Systems: 12 systems were reviewed and are negative except for as per HPI. Exam Narrative: General: in mild distress due to pain, ill looking HEENT: normocephalic, atraumatic. Mucous membranes dry. EOMI, PERRLA, bilateral sclera anicteric, no conjunctival injection. Neck supple without JVD, lymphadenopathy, or bruit. Respiratory: clear to ascultation bilaterally. No rales/rhonic/wheezes. Cardiovascular: Regular rate and rhythm, normal S1-S2 upon ascultation. No murmurs, rubs, or clicks. PMI is nondisplaced, capillary refill less than 3 second. Abdomen: Soft, distended, tender to palpation, guarding present. Bowel sounds present to all four quadrants. Extremities: No cyanosis, clubbing, or edema present. Pulses are palpable 2/2. Active ROM to all four extremities. Neuro: Alert and orientated x 4. PERRLA. Cranial nerves 2-12 intact without focal deficit. Skin: Warm, dry, and intact, without rash, erythema, or lesion. Objective Data Vital Signs Vital Signs: Vital Signs - 24 hr 11/09/24 12:00 11/09/24 12:00 11/09/24 12:00 Temperature 98 F Pulse Rate 61 67 Respiratory Rate 20 Blood Pressure 149/46 H Pulse Oximetry 93 92 Oxygen Delivery High Flow Nasal Cannula Oxygen Flow Rate 3 11/09/24 14:00 11/09/24 16:00 11/09/24 16:00 Temperature 98.2 F Pulse Rate 61 62 58 L Respiratory Rate 18 Blood Pressure 158/49 H Pulse Oximetry 92 Oxygen Delivery Oxygen Flow Rate 11/09/24 16:00 11/09/24 16:56 11/09/24 18:00 Temperature Pulse Rate 61 57 L Respiratory Rate Blood Pressure Pulse Oximetry 91 Oxygen Delivery High Flow Nasal Cannula Oxygen Flow Rate 3 11/09/24 20:00 11/09/24 20:00 11/09/24 20:25 Temperature 98.1 F Pulse Rate 60 59 L 60 Respiratory Rate 18 18 Blood Pressure 137/54 L Pulse Oximetry 94 94 Oxygen Delivery Nasal Cannula Oxygen Flow Rate 3 11/09/24 22:00 11/09/24 23:45 11/10/24 00:00 Temperature 98 F Pulse Rate 58 L 59 L 59 L Respiratory Rate 18 Blood Pressure 151/53 H Pulse Oximetry 93 Oxygen Delivery Oxygen Flow Rate 11/10/24 02:00 11/10/24 04:00 11/10/24 04:00 Temperature 97.9 F Pulse Rate 60 62 62 Respiratory Rate 18 Blood Pressure 121/63 Pulse Oximetry 93 Oxygen Delivery Oxygen Flow Rate 11/10/24 06:00 11/10/24 07:43 11/10/24 08:00 Temperature 98.4 F Pulse Rate 60 67 Respiratory Rate 24 H Blood Pressure 134/45 L Pulse Oximetry 94 93 Oxygen Delivery High Flow Nasal Cannula Oxygen Flow Rate 3 11/10/24 09:14 Temperature Pulse Rate 66 Respiratory Rate Blood Pressure Pulse Oximetry Oxygen Delivery Oxygen Flow Rate Intake/Output Intake/Output: Intake & Output 11/07/24 11/08/24 11/09/24 11/10/24 23:59 23:59 23:59 23:59 Intake Total 1175.1 540 1340 200 Output Total 900 975 700 350 Balance 275.1 435 640 -150 Meds/Results Medications: Active Medications Generic Name Dose Route Start Last Admin Trade Name Freq PRN Reason Stop Dose Admin Acetaminophen 650 mg 11/06/24 12:18 11/09/24 13:38 Acetaminophen 325 Mg Tablet PO 650 mg Q4H PRN Administration Headache Alprazolam 0.25 mg 11/03/24 19:16 11/10/24 00:45 Alprazolam (*Crx) 0.25 Mg Tablet PO 0.25 mg QHS PRN Administration Anxiety Apixaban 5 mg 11/08/24 21:45 11/09/24 08:37 Apixaban 5 Mg Tablet PO 5 mg On Hold: 11/09/24 09:14 Q12HR KEVIN Administration Cyclosporine 1 drop 11/03/24 21:00 11/10/24 09:13 Cyclosporine 0.4 Ml Ophth Solution EACH EYE 1 drop Q12HR KEVIN Administration Metronidazole 500 mg in 100 mls @ 100 mls/hr 11/08/24 13:00 11/10/24 05:14 Flagyl 500 Mg/Iso Soln 100 Ml IVPB 100 mls/hr Q8HR KEVIN Administration Piperacillin Sod/Tazobactam 50 mls @ 100 mls/hr 11/09/24 00:00 11/10/24 09:00 Sod 2.25 gm/ Sodium Chloride IVPB 100 mls/hr Q8H KEVIN Administration Albumin Human 50 mls @ 999 mls/hr 11/10/24 09:33 Albutein IVPB 12/10/24 09:32 Q10M PRN HYPOTENSION Metoprolol Tartrate 50 mg 11/08/24 09:00 11/10/24 09:14 Metoprolol Tartrate 50 Mg Tab PO 50 mg BID KEVIN Administration Simvastatin 20 mg 11/04/24 09:00 11/10/24 09:15 Simvastatin 20 Mg Tablet PO 20 mg DAILY KEVIN Administration Sodium Bicarbonate 650 mg 11/05/24 17:00 11/10/24 09:14 Sodium Bicarbonate Tab 650 Mg Tablet PO 650 mg BID KEVIN Administration Sodium Chloride 10 ml 11/06/24 22:00 11/10/24 05:14 Central Line Flush IV PUSH 10 ml Q8HR KEVIN Administration Sodium Chloride 10 ml 11/06/24 14:29 Central Line Flush IV PUSH PRN PRN with TPN bag changes Sodium Chloride 20 ml 11/06/24 14:29 Central Line Flush IV PUSH PRN PRN after blood draws Trazodone HCl 50 mg 11/03/24 21:00 11/09/24 21:19 Trazodone Hcl 50 Mg Tablet PO 50 mg QHS KEVIN Administration Vancomycin HCl 500 mg 11/06/24 08:15 11/10/24 05:14 Vancomycin Hcl 250 Mg Oral Capsule PO 500 mg Q6HR KEVIN Administration Radiology Results: ITS Impressions Abdomen/Pelvis CT 11/04/24 12:36 IMPRESSION: 1. No evidence of bowel perforation. 2. Persistent severe pancolitis. 3. New small scattered ascites. 4. New small pleural effusions and significant bibasilar atelectasis. Renal Ultrasound 11/04/24 19:07 Impression: Simple appearing left renal cyst. No significant medical renal disease or obstruction Abdomen X-Ray 11/05/24 16:02 Impression: 1. Findings concerning for small bowel obstruction. CT is suggested Chest/Abdomen/Pelvis CT 11/05/24 17:04 IMPRESSION: 1. Diffuse colitis detailed above, correlate for underlying pseudomembranous colitis. No perforation or abscess. Follow-up recommended to assess. 2. CHF with superimposed probable bronchopneumonia. 3. Incidental findings above. Contrast-enhanced MRI recommended Head CT 11/06/24 12:46 Impression: 1.No acute intracranial abnormality. Thoracentesis Ultrasound 11/08/24 11:36 IMPRESSION: 1. Successful ultrasound-guided thoracentesis yielding 250 mL of yellow fluid. Chest X-Ray 11/09/24 08:11 Impression: Bilateral pneumonia. The findings are progressed compared to the previous study Labs Labs: Laboratory Results - last 24 hr 11/08/24 11/08/24 11/09/24 10:58 10:59 16:36 WBC RBC Hgb Hct MCV MCH MCHC RDW Plt Count MPV Immature Gran % (Auto) Neut % (Auto) Lymph % (Auto) [place] % (Auto) Eos % (Auto) Baso % (Auto) Lymph # (Auto) [place] # (Auto) Eos # (Auto) Baso # (Auto) Abs Immat Gran (auto) Absolute Neuts (auto) Absolute Nucleated RBC Nucleated RBC % PT INR Sodium Potassium Chloride Carbon Dioxide Anion Gap BUN Creatinine Estim Creat Clear Calc Estimated GFR Glucose Calcium Phosphorus Magnesium Total Bilirubin AST ALT Alkaline Phosphatase C-Reactive Protein NT-Pro-B Natriuret Pep Total Protein Albumin Procalcitonin Fluid Glucose 106 Fluid Total Protein 2.7 Fluid Albumin 1.7 Fluid LDH 226 C. difficile (PCR) Positive A* 11/09/24 11/10/24 21:16 05:09 WBC 20.5 H 21.8 H RBC 3.56 L 3.53 L Hgb 11.0 L 10.9 L Hct 32.0 L 31.7 L MCV 89.9 89.8 MCH 30.9 30.9 MCHC 34.4 34.4 RDW 13.2 13.4 Plt Count 415 H 401 H MPV 9.7 9.4 Immature Gran % (Auto) 2.4 H Neut % (Auto) 89.6 H Lymph % (Auto) 3.9 L [place] % (Auto) 3.3 Eos % (Auto) 0.2 Baso % (Auto) 0.6 Lymph # (Auto) 0.80 L [place] # (Auto) 0.7 H Eos # (Auto) 0.1 Baso # (Auto) 0.1 Abs Immat Gran (auto) 0.50 H Absolute Neuts (auto) 18.3 H Absolute Nucleated RBC 0.000 Nucleated RBC % 0.0 PT 20.0 H INR 1.7 Sodium 122 L Potassium 3.6 Chloride 92 L Carbon Dioxide 14 L Anion Gap 16 H BUN 95 H Creatinine 4.51 H Estim Creat Clear Calc 9 Estimated GFR 9 L Glucose 101 Calcium 7.6 L Phosphorus 8.4 H Magnesium 1.8 Total Bilirubin 0.4 AST 33 ALT 22 Alkaline Phosphatase 113 C-Reactive Protein 8.8 H NT-Pro-B Natriuret Pep 1940 H Total Protein 4.9 L Albumin 2.5 L Procalcitonin 1.8 Fluid Glucose Fluid Total Protein Fluid Albumin Fluid LDH C. difficile (PCR) Quality VTE Prophylaxis VTE prophylaxis: mechanical ordered
--- NOTE | 2024-11-10 10:36 | PM.PNPUL ---
Progress Note: A&P Assessment and Plan (1) Respiratory failure with hypoxia: Code(s): J96.91 - Respiratory failure, unspecified with hypoxia Status: Acute Assessment and Plan: Patient on no previous oxygen. She presented on 11/01 and 11/03 to the ER with colitis and had room air saturations on 11/03 of 97%. She has progressive worsening oxygenation along with her acute renal failure, development of bilateral pleural effusions and is now requiring Airvo 40 L and 70% FiO2. of note ABG on 11/05/2024 on 8 L nasal cannula with a pH of 7.35/24/69. Etiology of patient's hypoxemic respiratory failure includes: Bilateral pleural effusions with adjacent atelectasis, fluid overload, atrial flutter with rapid ventricular response, pancolitis, and possible pneumonia. 11/06/24: Plan: Agree with as aggressive diuresis as tolerated by her cardiac and renal systems. Since patient is now requiring nares are recommend thoracentesis which hopefully can be performed on 11/07/2024 as she received apixaban 5 mg on 11/06 at 8:33 a.m.. Low clinical suspicion for bacterial pneumonia and agree with Zosyn for her pancolitis, day 3 today. I will send respiratory pathogen panel, urine for Legionella, urine for pneumococcal and serum mycoplasma IgM. I will initiate the patient on EzPAP for her bilateral atelectasis. Currently the patient has minimal shortness of breath but should she develop worsening work of breathing would initiate noninvasive ventilation with the AVAPS mode, rate 14, tidal volume 500, EPAP 5, minimum inspiratory pressure 6, maximal inspiratory pressure 25 and FiO2 to maintain saturations 90-94%. 11/07/24: Patient tells me she feels better today. Overall she feels like she is 25-50% back to normal. Her breathing is better, she has a cough that is improved and produces a little bit of phlegm with no hemoptysis. She has less abdominal pain and has flatus. She is afebrile. She is on Vapotherm 40 L and 70% FiO2 with saturations 91%. She is on IV amiodarone drip now in sinus at 88. Her white blood cell count is 18.5, creatinine is 3.94. Yesterday she diuresed 645 mL, cumulative she is positive 1.4 L since admission. Her weight is 74.1 kg. Plan: patient clinically improved with Zosyn, diuresis, and conversion of a flutter with RVR to sinus. remains with hypoxic respiratory failure. Agree with thoracentesis if can be safely done with an INR of 2.1. Agree with eventual diuresis, currently on hold per Nephrology. 11/08/24: Overall the patient tells me she is improving. She denies shortness of breath at rest. She says her cough and phlegm production have improved. States her abdominal tenderness is better, she has had bowel movements and flatus. She is afebrile. When I enter the room she was on Vapotherm 40 L 70% FiO2 with saturations 90%. I changed her to 15 L nasal cannula and sequentially decreased her down to 4 L nasal cannula. After 2 minutes on 4 L her saturations decreased to 89 and I increased her to 5 L nasal cannula her saturations were 91%. She is afebrile. White blood cell count 16.4, creatinine 3.78, serum bicarb 16. Her BNP has improved from 3410 on 11/06/2024 to 3080 today. Her procalcitonin has improved from 4.9 on 11/06/2024 to 2.8 today. her CRP has improved from 16.2 on 11/06/2024 to 12.5 today. Yesterday she was positive 200 and 75 mL, cumulative she is positive 1.3 L since admission. Her weight today is 76.4. Plan: patient clinically improved with Zosyn, day 6 today, diuresis, and conversion of a flutter with RVR to sinus. oxygenation improved and currently on 5 L nasal cannula. Agree with thoracentesis. Agree with eventual diuresis, currently on hold per Nephrology. Now that her oxygenation is improved hopefully can get patient out of bed to chair and start to participate in physical therapy. Later in the day patient had a left thoracentesis with 250 mL of yellow fluid removed. PH 7.46. g stain with many white blood cells, no organism seen. White blood cells 874 with a differential neutrophils 26%, lymphocytes 2%, monocytes 7%, macrophages 57%, mesothelial cells 8%. Pleural LDH 226: Serum LDH 262 with ratio of 0.86. Total protein pleural 2.7: Serum total protein 5.2 with ratio of 0.52. Serum albumin 2.6, pleural albumin 1.7 with a gradient of 0.9. Her left effusion is consistent with an exudative, noninfected, macrophage predominant effusion likely and inflammatory response related to her colitis with component of fluid overload from her acute kidney injury. Later in the day infectious Disease consulted and continued Zosyn, p.o. vancomycin and added IV Flagyl. 11/09/2024: Patient tells me she continues to improve. She says she is breathing normal. She remains with a dry cough, no phlegm no hemoptysis. Abdominal pain is better but still present. She now has diarrhea she tells me every 5 minutes. She is afebrile. When I enter the room she was on 5 L nasal cannula saturations 93%. I decreased her to 3 L nasal cannula saturations 92%. White blood cell count is 18.2, creatinine is 4.10, her BUN is 88, her serum bicarb is 15. Yesterday she was -435 mL, cumulative she is positive 1.8 L since admission. Her weight today is 74.5. Chest x-ray today shows right pleural effusion, small left pleural effusion and decreased lung volumes. Plan: From a pulmonary perspective patient continues to improve. She has no clinical symptoms of bacterial pneumonia. Her oxygenation continues to improve. No evidence of an empyema on her left thoracentesis and chest x-ray today shows no rapid reaccumulation of left pleural effusion. I do not believe the patient has a bacterial pneumonia and does not need antibiotics from a pulmonary perspective. Patient has acute kidney injury with fluid overload and colitis likely the etiology of patient's pleural effusions and hypoxic respiratory failure. goal saturation 90-94%, wean oxygen accordingly. Discussed with Nephrology and related that I would do not believe the patient has bacterial pneumonia and that her oxygenation has been improving with treatment of her colitis, cardiac arrhythmia, and gentle diuresis. 11/10/24: From a breathing perspective patient states she is breathing normal. She denies cough, phlegm hemoptysis. She sat in the chair yesterday for 10-15 minutes. When I enter the room she was on 3 L nasal cannula saturations 94%. I decreased her to 1 L nasal cannula her saturations were 92%. Her white blood cell count is 21.8, her creatinine is 4.51, her BUN is 95, her bicarbonate is 14. Her BNP has improved from 3080 on 11/08/2024 to 1940 today. Her CRP has improved from 12.5 on 11/08/2024 to 8.8 today. Her procalcitonin has improved from 2.8 on 11/08/2024 to 1.8 today. Yesterday she was positive 640 mL and cumulative she is positive 1.8 L since admission. Her weight today is 75.9. Plan: from a pulmonary perspective she continues to improve. Her oxygen requirements an hour 1 L. she has no evidence clinically of a bacterial pneumonia And does not need antibiotics from a pulmonary perspective. per Nephrology, patient has acute kidney injury unresponsive to high-dose diuretics with plans to start hemodialysis. Goal saturation 90-94%, adjust oxygen accordingly. Patient should have a formal overnight oximetry and home O2 assessment prior to discharge. Discussed with Dr. Appiah. Will sign off. Call with questions. Subjective Date/time seen: 11/10/24 10:36 Interval history: 11/06/2024: This is a new pulmonary consult for hypoxemic respiratory failure 78-year-old with a history of hypertension. Patient denies a history of asthma, COPD, recurrent pneumonias. She is not on any oxygen at home and checks her pulse oximetry at home and it has been 95-98%. Patient is a never smoker but was exposed to secondhand smoke from her father, from her 1st and 2nd from 1969 to 1985. 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 After 1985 she worked in a [employer]. She denies sand blasting, welding, asbestos were, professional painting, construction work, coal mining or quarry work. Patient noticed that 2 years she developed dyspnea on exertion. Two years ago she could walk 3/4 of a block. 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 11/01 patient presented to the emergency department with abdominal pain and Room air saturations were 98%. CT scan of the abdomen showed diverticulitis with no abscess. Her white blood cell count was 12.8. Her creatinine was 0.99. She was discharged on Augmentin. 11/03/2024 patient presented to the emergency room with abdominal pain. Her blood pressure is 128/49, heart rate 87, respirations 26, room air saturations 97%. White blood cell count was 21.8, creatinine was 3.03, bands were 20%. Lipase less than 10. CT scan of the abdomen showed progression of her pancolitis with no pleural effusions. Patient was started on Zosyn. 11/04/2024: At 8:00 p.m. she required 2 L nasal cannula saturations 92%. Patient developed atrial flutter treated with diltiazem. 11/05/2024 CT scan chest abdomen and pelvis showed moderate bilateral pleural effusions with atelectasis. At 11:45 a.m. she required 8 L nasal cannula saturations 90%. ABG on 8 L nasal cannula 7.. At 9:00 p.m. she required 8 L with saturations 90%. At 11:00 p.m. she required Airvo 40 L and 70% with saturations 90%. Cardiology consulted and patient initiated on amiodarone and diltiazem discontinued. 11/06/2024: The patient tells me today that her shortness of breath is at her baseline and this is the same as yesterday. She developed a cough today with no phlegm and no hemoptysis. She denies fever. She tells me her abdominal pain is better today than yesterday. She has had flatus today. Earlier today she received IV metoprolol and IV digoxin for atrial flutter with fast heart rate. Currently her heart rate is 149 and regular and she is being restarted on amiodarone drip. Patient remains on Airvo 40 L, 70% FiO2 with saturations 92%. Her white blood cell count is 28.3, creatinine is 4.18. Chest x-ray today compared with 11/04/2024 shows decreased lung volumes with small bilateral pleural effusions with bibasilar infiltrates. 11/07/24: Patient tells me she feels better today. Overall she feels like she is 25-50% back to normal. Her breathing is better, she has a cough that is improved and produces a little bit of phlegm with no hemoptysis. She has less abdominal pain and has flatus. She is afebrile. She is on Vapotherm 40 L and 70% FiO2 with saturations 91%. She is on IV amiodarone drip now in sinus at 88. Her white blood cell count is 18.5, creatinine is 3.94. Yesterday she diuresed 645 mL, cumulative she is positive 1.4 L since admission. Her weight is 74.1 kg. 11/08/24: Overall the patient tells me she is improving. She denies shortness of breath at rest. She says her cough and phlegm production have improved. States her abdominal tenderness is better, she has had bowel movements and flatus. She is afebrile. When I enter the room she was on Vapotherm 40 L 70% FiO2 with saturations 90%. I changed her to 15 L nasal cannula and sequentially decreased her down to 4 L nasal cannula. After 2 minutes on 4 L her saturations decreased to 89 and I increased her to 5 L nasal cannula her saturations were 91%. She is afebrile. White blood cell count 16.4, creatinine 3.78, serum bicarb 16. Her BNP has improved from 3410 on 11/06/2024 to 3080 today. Her procalcitonin has improved from 4.9 on 11/06/2024 to 2.8 today. her CRP has improved from 16.2 on 11/06/2024 to 12.5 today. Yesterday she was positive 200 and 75 mL, cumulative she is positive 1.3 L since admission. Her weight today is 76.4. Later in the day patient had a left thoracentesis with 250 mL of yellow fluid removed. PH 7.46. g stain with many white blood cells, no organism seen. White blood cells 874 with a differential neutrophils 26%, lymphocytes 2%, monocytes 7%, macrophages 57%, mesothelial cells 8%. Pleural LDH 226: Serum LDH 262 with ratio of 0.86. Total protein pleural 2.7: Serum total protein 5.2 with ratio of 0.52. Serum albumin 2.6, pleural albumin 1.7 with a gradient of 0.9. Her left effusion is consistent with an exudative, noninfected, macrophage predominant effusion likely and inflammatory response related to her colitis with component of fluid overload from her acute kidney injury. later in the day infectious Disease consulted and continued Zosyn, p.o. vancomycin and added IV Flagyl. 11/09/2024: Patient tells me she continues to improve. She says she is breathing normal. She remains with a dry cough, no phlegm no hemoptysis. Abdominal pain is better but still present. She now has diarrhea she tells me every 5 minutes. She is afebrile. When I enter the room she was on 5 L nasal cannula saturations 93%. I decreased her to 3 L nasal cannula saturations 92%. White blood cell count is 18.2, creatinine is 4.10, her BUN is 88, her serum bicarb is 15. Yesterday she was -435 mL, cumulative she is positive 1.8 L since admission. Her weight today is 74.5. Chest x-ray today shows right pleural effusion, small left pleural effusion and decreased lung volumes. 11/10/24: From a breathing perspective patient states she is breathing normal. She denies cough, phlegm hemoptysis. She sat in the chair yesterday for 10-15 minutes. When I enter the room she was on 3 L nasal cannula saturations 94%. I decreased her to 1 L nasal cannula her saturations were 92%. Her white blood cell count is 21.8, her creatinine is 4.51, her BUN is 95, her bicarbonate is 14. Her BNP has improved from 3080 on 11/08/2024 to 1940 today. Her CRP has improved from 12.5 on 11/08/2024 2 8.8. Her procalcitonin has improved from 2.8 on 11/08/2024 to 1.8. Yesterday she was positive 640 mL and cumulative she is positive 1.8 L since admission. Her weight today is 75.9. Patient says her abdominal pain is present but improved, she now has a rectal tube in place. Her C diff is positive. On Zosyn, Flagyl and p.o. vancomycin per Infectious Disease consult. DATA: 11/06/24: EXAMINATION: XR chest 1V portable DATE: 11/06/2024 11:34 INDICATION: Respiratory failure TECHNIQUE: frontal view of the chest was obtained. COMPARISON: Chest radiograph dated 11/04/[address] dated 11/05/2024 FINDINGS: Lung volumes are small, unchanged on the left and with interval progression of volume loss on the right. Airspace opacity at the bilateral lower lung zones with blunting at the costophrenic angles consistent with small bilateral pleural effusions and associated atelectasis and/or pneumonia. No pneumothorax or evident pulmonary edema. Heart size is normal. There is ostial fold thickening along the visualized ascending and transverse colon suggestive of colitis. IMPRESSION: 1. Decreased lung volumes with small bilateral pleural effusions and associated bibasilar atelectasis and/or pneumonia. 2. Haustral fold thickening along the visualized colon suspicious for colitis. 11/05/2024: EXAMINATION: CT chest abdomen pelvis wo con, 11/05/2024 16:20 CDT HISTORY: SBO COMPARISON: No comparisons available. FINDINGS: CT chest: No significant coronary calcification is present ([id number]) LUNGS: No tracheomalacia. No bronchiectasis. Moderate to large simple appearing bilateral pleural effusions with small basilar infiltrates. Minimal emphysematous changes. HEART AND PERICARDIUM: Mild cardiomegaly. No pericardial effusion. AORTA: Atherosclerotic changes of the aorta. MEDIASTINUM: Unremarkable. THYROID: The thyroid is unremarkable. CT abdomen: LIVER: Mild cirrhotic disease of the liver suspected. SPLEEN: Mild atrophy of the spleen.. KIDNEYS: Right Kidney: Right kidney mild hydronephrosis, no hydroureter. Left Kidney: Left kidney large simple appearing peripelvic renal cyst 5 x 6 cm. ADRENAL GLANDS: Unremarkable. PANCREAS: Moderate atrophy of the pancreas. Cystic pancreatic lesion of the body 1.5 x 1.6 cm incompletely evaluated, contrast-enhanced MRI recommended. GALLBLADDER/BILIARY: Mild distention of the gallbladder. STOMACH AND ESOPHAGUS: The stomach is decompressed. BOWEL/MESENTERY: Multiple fluid-filled loops of large bowel which appears thickened, absence of contrast limits evaluation. There is pericolonic stranding noted but no gross perforation or abscess, no pneumatosis. Appendix appears minimally thickened but there is no periappendiceal inflammation. Stranding throughout the visualized remaining mesentery. Nonspecific fluid-filled loops of small bowel, no dilated small bowel loops. RETROPERITONEUM: Unremarkable AORTA/VASCULATURE: Normal caliber aorta. FREE FLUID OR FREE AIR: Large amount of free fluid throughout the abdomen and pelvis. Small amount of free fluid in the presacral space.. CT pelvis: SOLID ORGANS/REPRODUCTIVE: Unremarkable. BLADDER: Bladder decompressed. LYMPHADENOPATHY: No lymphadenopathy. OSSEOUS STRUCTURES: No acute osseous abnormality.No suspicious lesions. OVERLYING SOFT TISSUES: Holland catheter in the bladder. IMPRESSION: 1. Diffuse colitis detailed above, correlate for underlying pseudomembranous colitis. No perforation or abscess. Follow-up recommended to assess. 2. CHF with superimposed probable bronchopneumonia. 3. Incidental findings above. Contrast-enhanced MRI recommended Review of Systems Constitutional: Constitutional: Reports no additional constitutional complaints Eyes: Eyes: Reports no additional eye complaints ENT: Reports system reviewed and no additional complaints, except as documented Cardiovascular: Cardiovascular: Reports no additional cardiovascular complaints Respiratory: Respiratory: Reports no additional respiratory complaints Gastrointestinal: Gastrointestinal: Reports no additional gastrointestinal complaints Musculoskeletal: Musculoskeletal: Reports no additional musculoskeletal complaints Neurologic: Reports system reviewed and no additional complaints, except as documented Psychiatric: Psychiatric: Reports no additional psychiatric complaints Endocrine: Endocrine: Reports no additional endocrine complaints Hematologic/Lymphatic: Hematologic/Lymphatic: Reports no additional hematologic/lymphatic complaints Allergic/Immunologic: Allergic/Immunologic: Reports no additional allergic/immunologic complaints Exam Const: General: cooperative, healthy appearing and comfortable Orientation/consciousness: oriented to person, oriented to place and oriented to time Other: No respiratory distress HENMT: Head: normal to inspection Ears: hearing grossly normal bilaterally Eyes: General: appearance normal, both eyes and all related structures Neck: Neck: normal visual inspection Chest: Chest palpation & inspection: normal inspection of the chest Resp: Effort & Inspection: normal respiratory effort and able to speak in complete sentences Auscultation: no crackles, no rales, no rhonchi, no wheezes and diminished lung sounds Other: decreased breath sounds right base > left base Cardio: Jugular venous distension: no JVD Other: sinus 68 GI: Inspection: normal to inspection Other: Tender to deep lower quadrants Skin: General skin exam: normal color Neuro: General: oriented to person, oriented to place and oriented to time Extrem: General: normal to inspection Other: No edema Psych: Appearance: grossly normal Objective Data Vital Signs Vital Signs: Vital Signs - 24 hr 11/09/24 12:00 11/09/24 12:00 11/09/24 12:00 Temperature 36.6 C Pulse Rate 61 67 Respiratory Rate 20 Blood Pressure 149/46 H Pulse Oximetry 93 92 Oxygen Delivery High Flow Nasal Cannula Oxygen Flow Rate 3 11/09/24 14:00 11/09/24 16:00 11/09/24 16:00 Temperature 36.8 C Pulse Rate 61 62 58 L Respiratory Rate 18 Blood Pressure 158/49 H Pulse Oximetry 92 Oxygen Delivery Oxygen Flow Rate 11/09/24 16:00 11/09/24 16:56 11/09/24 18:00 Temperature Pulse Rate 61 57 L Respiratory Rate Blood Pressure Pulse Oximetry 91 Oxygen Delivery High Flow Nasal Cannula Oxygen Flow Rate 3 11/09/24 20:00 11/09/24 20:00 11/09/24 20:25 Temperature 36.7 C Pulse Rate 60 59 L 60 Respiratory Rate 18 18 Blood Pressure 137/54 L Pulse Oximetry 94 94 Oxygen Delivery Nasal Cannula Oxygen Flow Rate 3 11/09/24 22:00 11/09/24 23:45 11/10/24 00:00 Temperature 36.6 C Pulse Rate 58 L 59 L 59 L Respiratory Rate 18 Blood Pressure 151/53 H Pulse Oximetry 93 Oxygen Delivery Oxygen Flow Rate 11/10/24 02:00 11/10/24 04:00 11/10/24 04:00 Temperature 36.6 C Pulse Rate 60 62 62 Respiratory Rate 18 Blood Pressure 121/63 Pulse Oximetry 93 Oxygen Delivery Oxygen Flow Rate 11/10/24 06:00 11/10/24 07:43 11/10/24 08:00 Temperature 36.9 C Pulse Rate 60 67 Respiratory Rate 24 H Blood Pressure 134/45 L Pulse Oximetry 94 93 Oxygen Delivery High Flow Nasal Cannula Oxygen Flow Rate 3 11/10/24 09:14 Temperature Pulse Rate 66 Respiratory Rate Blood Pressure Pulse Oximetry Oxygen Delivery Oxygen Flow Rate Intake/Output Intake/Output: Intake & Output 11/07/24 11/08/24 11/09/24 11/10/24 23:59 23:59 23:59 23:59 Intake Total 1175.1 540 1340 200 Output Total 900 975 700 350 Balance 275.1 -866 391 -150 Meds/Results Medications: Active Medications Generic Name Dose Route Start Last Admin Trade Name Freq PRN Reason Stop Dose Admin Acetaminophen 650 mg 11/06/24 12:18 11/09/24 13:38 Acetaminophen 325 Mg Tablet PO 650 mg Q4H PRN Administration Headache Alprazolam 0.25 mg 11/03/24 19:16 11/10/24 00:45 Alprazolam (*Crx) 0.25 Mg Tablet PO 0.25 mg QHS PRN Administration Anxiety Apixaban 5 mg 11/08/24 21:45 11/09/24 08:37 Apixaban 5 Mg Tablet PO 5 mg On Hold: 11/09/24 09:14 Q12HR KEVIN Administration Cyclosporine 1 drop 11/03/24 21:00 11/10/24 09:13 Cyclosporine 0.4 Ml Ophth Solution EACH EYE 1 drop Q12HR KEVIN Administration Metronidazole 500 mg in 100 mls @ 100 mls/hr 11/08/24 13:00 11/10/24 05:14 Flagyl 500 Mg/Iso Soln 100 Ml IVPB 100 mls/hr Q8HR KEVIN Administration Piperacillin Sod/Tazobactam 50 mls @ 100 mls/hr 11/09/24 00:00 11/10/24 09:00 Sod 2.25 gm/ Sodium Chloride IVPB 100 mls/hr Q8H KEVIN Administration Albumin Human 50 mls @ 999 mls/hr 11/10/24 09:33 Albutein IVPB 12/10/24 09:32 Q10M PRN HYPOTENSION Metoprolol Tartrate 50 mg 11/08/24 09:00 11/10/24 09:14 Metoprolol Tartrate 50 Mg Tab PO 50 mg BID KEVIN Administration Simvastatin 20 mg 11/04/24 09:00 11/10/24 09:15 Simvastatin 20 Mg Tablet PO 20 mg DAILY KEVIN Administration Sodium Bicarbonate 650 mg 11/05/24 17:00 11/10/24 09:14 Sodium Bicarbonate Tab 650 Mg Tablet PO 650 mg BID KEVIN Administration Sodium Chloride 10 ml 11/06/24 22:00 11/10/24 05:14 Central Line Flush IV PUSH 10 ml Q8HR KEVIN Administration Sodium Chloride 10 ml 11/06/24 14:29 Central Line Flush IV PUSH PRN PRN with TPN bag changes Sodium Chloride 20 ml 11/06/24 14:29 Central Line Flush IV PUSH PRN PRN after blood draws Trazodone HCl 50 mg 11/03/24 21:00 11/09/24 21:19 Trazodone Hcl 50 Mg Tablet PO 50 mg QHS KEVIN Administration Vancomycin HCl 500 mg 11/06/24 08:15 11/10/24 05:14 Vancomycin Hcl 250 Mg Oral Capsule PO 500 mg Q6HR KEVIN Administration Radiology Results: ITS Impressions Abdomen/Pelvis CT 11/04/24 12:36 IMPRESSION: 1. No evidence of bowel perforation. 2. Persistent severe pancolitis. 3. New small scattered ascites. 4. New small pleural effusions and significant bibasilar atelectasis. Renal Ultrasound 11/04/24 19:07 Impression: Simple appearing left renal cyst. No significant medical renal disease or obstruction Abdomen X-Ray 11/05/24 16:02 Impression: 1. Findings concerning for small bowel obstruction. CT is suggested Chest/Abdomen/Pelvis CT 11/05/24 17:04 IMPRESSION: 1. Diffuse colitis detailed above, correlate for underlying pseudomembranous colitis. No perforation or abscess. Follow-up recommended to assess. 2. CHF with superimposed probable bronchopneumonia. 3. Incidental findings above. Contrast-enhanced MRI recommended Head CT 11/06/24 12:46 Impression: 1.No acute intracranial abnormality. Thoracentesis Ultrasound 11/08/24 11:36 IMPRESSION: 1. Successful ultrasound-guided thoracentesis yielding 250 mL of yellow fluid. Chest X-Ray 11/09/24 08:11 Impression: Bilateral pneumonia. The findings are progressed compared to the previous study Labs Labs: Laboratory Results - last 24 hr 11/08/24 11/08/24 11/09/24 10:58 10:59 16:36 WBC RBC Hgb Hct MCV MCH MCHC RDW Plt Count MPV Immature Gran % (Auto) Neut % (Auto) Lymph % (Auto) [place] % (Auto) Eos % (Auto) Baso % (Auto) Lymph # (Auto) [place] # (Auto) Eos # (Auto) Baso # (Auto) Abs Immat Gran (auto) Absolute Neuts (auto) Absolute Nucleated RBC Nucleated RBC % PT INR Sodium Potassium Chloride Carbon Dioxide Anion Gap BUN Creatinine Estim Creat Clear Calc Estimated GFR Glucose Calcium Phosphorus Magnesium Total Bilirubin AST ALT Alkaline Phosphatase C-Reactive Protein NT-Pro-B Natriuret Pep Total Protein Albumin Procalcitonin Fluid Glucose 106 Fluid Total Protein 2.7 Fluid Albumin 1.7 Fluid LDH 226 C. difficile (PCR) Positive A* 11/09/24 11/10/24 21:16 05:09 WBC 20.5 H 21.8 H RBC 3.56 L 3.53 L Hgb 11.0 L 10.9 L Hct 32.0 L 31.7 L MCV 89.9 89.8 MCH 30.9 30.9 MCHC 34.4 34.4 RDW 13.2 13.4 Plt Count 415 H 401 H MPV 9.7 9.4 Immature Gran % (Auto) 2.4 H Neut % (Auto) 89.6 H Lymph % (Auto) 3.9 L [place] % (Auto) 3.3 Eos % (Auto) 0.2 Baso % (Auto) 0.6 Lymph # (Auto) 0.80 L [place] # (Auto) 0.7 H Eos # (Auto) 0.1 Baso # (Auto) 0.1 Abs Immat Gran (auto) 0.50 H Absolute Neuts (auto) 18.3 H Absolute Nucleated RBC 0.000 Nucleated RBC % 0.0 PT 20.0 H INR 1.7 Sodium 122 L Potassium 3.6 Chloride 92 L Carbon Dioxide 14 L Anion Gap 16 H BUN 95 H Creatinine 4.51 H Estim Creat Clear Calc 9 Estimated GFR 9 L Glucose 101 Calcium 7.6 L Phosphorus 8.4 H Magnesium 1.8 Total Bilirubin 0.4 AST 33 ALT 22 Alkaline Phosphatase 113 C-Reactive Protein 8.8 H NT-Pro-B Natriuret Pep 1940 H Total Protein 4.9 L Albumin 2.5 L Procalcitonin 1.8 Fluid Glucose Fluid Total Protein Fluid Albumin Fluid LDH C. difficile (PCR)
--- NOTE | 2024-11-10 11:53 | WPDINFPN2 ---
Progress Note: A&P Assessment and Plan (1) Clostridium difficile colitis: Code(s): A04.72 - Enterocolitis due to Clostridium difficile, not specified as recurrent Status: Acute Assessment and Plan: -Severe C.difficile colitis -Continue to have diarrhea -WBC continues to increase (2) Leukocytosis: Code(s): D72.829 - Elevated white blood cell count, unspecified Status: Acute Assessment and Plan: -Reactive from C.difficile infection (3) Diverticulitis large intestine: Code(s): K57.32 - Diverticulitis of large intestine without perforation or abscess without bleeding Status: Acute Assessment and Plan: -Diagnosed one week prior to admission -S/P Augmentin x 5 days prior to admission -Discontinue Zosyn as patient has completed 8 day course for diverticulitis (4) Colitis: Code(s): K52.9 - Noninfective gastroenteritis and colitis, unspecified Status: Acute Assessment and Plan: -Pancolitis noted on CT -Due to C.difficile colitis (5) Acute kidney injury: Code(s): N17.9 - Acute kidney failure, unspecified Status: Acute Assessment and Plan: -Management as per Nephrology service -Plans for short-term HD (6) Pleural effusion: Code(s): J90 - Pleural effusion, not elsewhere classified Status: Acute Assessment and Plan: -S/P Left thoracentesis 11/08/24 -Pleural fluid studies not consistent with empyema -Await pleural fluid cultures -Management as per Pulmonary service Plan -Continue high-dose enteral Vancomycin for treatment of C.difficile colitis -Continue Metronidazole IV day 3 for treatment of severe C.difficile colitis -Consider Vancomycin per rectum -Discontinue Zosyn as she has completed therapy for diverticulitis (Augmentin PO x 5 days as outpatient and then Zosyn x 8 days) and as patient has significant diarrhea from C.difficile infection -Await left pleural fluid studies -Follow CBC and renal function Antimicrobial plan of care discussed with patient and family. All questions answered Patient was seen via video telehealth consultation with the assistance of staff. Chart, data, and patient independently reviewed. Patient was located at [facility] while I was located in my [place] office. Received verbal consent from patient. Subjective Date/time seen: 11/10/24 11:53 Interval history: Patient afebrile. Brreathing stable. Diarrhea persists. C.difficile positive. WBC increased further. She reports diffuse abdominal cramping. Review of Systems Review of Systems: All systems reviewed & are unremarkable except as noted in HPI and below Exam Narrative: Gen: fatigued Pulm: tachypneic with some conversational dyspnea Derm: no rash Abd: distended, mild TTP with palpation but no guarding/rebound TTP : FMS in place Lines: RUE PICC intact : urinary catheter in place draining clear urine Objective Data Vital Signs Vital Signs: Vital Signs - 24 hr 11/09/24 12:00 11/09/24 12:00 11/09/24 12:00 Temperature 98 F Pulse Rate 61 67 Respiratory Rate 20 Blood Pressure 149/46 H Pulse Oximetry 93 92 Oxygen Delivery High Flow Nasal Cannula Oxygen Flow Rate 3 11/09/24 14:00 11/09/24 16:00 11/09/24 16:00 Temperature 98.2 F Pulse Rate 61 62 58 L Respiratory Rate 18 Blood Pressure 158/49 H Pulse Oximetry 92 Oxygen Delivery Oxygen Flow Rate 11/09/24 16:00 11/09/24 16:56 11/09/24 18:00 Temperature Pulse Rate 61 57 L Respiratory Rate Blood Pressure Pulse Oximetry 91 Oxygen Delivery High Flow Nasal Cannula Oxygen Flow Rate 3 11/09/24 20:00 11/09/24 20:00 11/09/24 20:25 Temperature 98.1 F Pulse Rate 60 59 L 60 Respiratory Rate 18 18 Blood Pressure 137/54 L Pulse Oximetry 94 94 Oxygen Delivery Nasal Cannula Oxygen Flow Rate 3 11/09/24 22:00 11/09/24 23:45 11/10/24 00:00 Temperature 98 F Pulse Rate 58 L 59 L 59 L Respiratory Rate 18 Blood Pressure 151/53 H Pulse Oximetry 93 Oxygen Delivery Oxygen Flow Rate 11/10/24 02:00 11/10/24 04:00 11/10/24 04:00 Temperature 97.9 F Pulse Rate 60 62 62 Respiratory Rate 18 Blood Pressure 121/63 Pulse Oximetry 93 Oxygen Delivery Oxygen Flow Rate 11/10/24 06:00 11/10/24 07:43 11/10/24 08:00 Temperature 98.4 F Pulse Rate 60 67 Respiratory Rate 24 H Blood Pressure 134/45 L Pulse Oximetry 94 93 Oxygen Delivery High Flow Nasal Cannula Oxygen Flow Rate 3 11/10/24 08:00 11/10/24 08:00 11/10/24 09:14 Temperature Pulse Rate 66 66 Respiratory Rate Blood Pressure Pulse Oximetry 90 Oxygen Delivery High Flow Nasal Cannula Oxygen Flow Rate 1 11/10/24 10:00 Temperature Pulse Rate 62 Respiratory Rate Blood Pressure Pulse Oximetry Oxygen Delivery Oxygen Flow Rate Intake/Output Intake/Output: Intake & Output 11/07/24 11/08/24 11/09/24 11/10/24 23:59 23:59 23:59 23:59 Intake Total 1175.1 540 1340 200 Output Total 900 975 700 350 Balance 275.1 -435 640 -150 Meds/Results Medications: Active Medications Generic Name Dose Route Start Last Admin Trade Name Freq PRN Reason Stop Dose Admin Acetaminophen 650 mg 11/06/24 12:18 11/09/24 13:38 Acetaminophen 325 Mg Tablet PO 650 mg Q4H PRN Administration Headache Alprazolam 0.25 mg 11/03/24 19:16 11/10/24 00:45 Alprazolam (*Crx) 0.25 Mg Tablet PO 0.25 mg QHS PRN Administration Anxiety Apixaban 5 mg 11/08/24 21:45 11/09/24 08:37 Apixaban 5 Mg Tablet PO 5 mg On Hold: 11/09/24 09:14 Q12HR KEVIN Administration Cyclosporine 1 drop 11/03/24 21:00 11/10/24 09:13 Cyclosporine 0.4 Ml Ophth Solution EACH EYE 1 drop Q12HR KEVIN Administration Metronidazole 500 mg in 100 mls @ 100 mls/hr 11/08/24 13:00 11/10/24 05:14 Flagyl 500 Mg/Iso Soln 100 Ml IVPB 100 mls/hr Q8HR KEVIN Administration Piperacillin Sod/Tazobactam 50 mls @ 100 mls/hr 11/09/24 00:00 11/10/24 09:00 Sod 2.25 gm/ Sodium Chloride IVPB 100 mls/hr Q8H KEVIN Administration Albumin Human 50 mls @ 999 mls/hr 11/10/24 09:33 Albutein IVPB 12/10/24 09:32 Q10M PRN HYPOTENSION Metoprolol Tartrate 50 mg 11/08/24 09:00 11/10/24 09:14 Metoprolol Tartrate 50 Mg Tab PO 50 mg BID KEVIN Administration Simvastatin 20 mg 11/04/24 09:00 11/10/24 09:15 Simvastatin 20 Mg Tablet PO 20 mg On Hold: 11/10/24 10:41 DAILY KEVIN Administration Sodium Bicarbonate 650 mg 11/05/24 17:00 11/10/24 09:14 Sodium Bicarbonate Tab 650 Mg Tablet PO 650 mg BID KEVIN Administration Sodium Chloride 10 ml 11/06/24 22:00 11/10/24 05:14 Central Line Flush IV PUSH 10 ml Q8HR KEVIN Administration Sodium Chloride 10 ml 11/06/24 14:29 Central Line Flush IV PUSH PRN PRN with TPN bag changes Sodium Chloride 20 ml 11/06/24 14:29 Central Line Flush IV PUSH PRN PRN after blood draws Trazodone HCl 50 mg 11/03/24 21:00 11/09/24 21:19 Trazodone Hcl 50 Mg Tablet PO 50 mg QHS KEVIN Administration Vancomycin HCl 500 mg 11/06/24 08:15 11/10/24 05:14 Vancomycin Hcl 250 Mg Oral Capsule PO 500 mg Q6HR KEVIN Administration Radiology Results: ITS Impressions Abdomen/Pelvis CT 11/04/24 12:36 IMPRESSION: 1. No evidence of bowel perforation. 2. Persistent severe pancolitis. 3. New small scattered ascites. 4. New small pleural effusions and significant bibasilar atelectasis. Renal Ultrasound 11/04/24 19:07 Impression: Simple appearing left renal cyst. No significant medical renal disease or obstruction Abdomen X-Ray 11/05/24 16:02 Impression: 1. Findings concerning for small bowel obstruction. CT is suggested Chest/Abdomen/Pelvis CT 11/05/24 17:04 IMPRESSION: 1. Diffuse colitis detailed above, correlate for underlying pseudomembranous colitis. No perforation or abscess. Follow-up recommended to assess. 2. CHF with superimposed probable bronchopneumonia. 3. Incidental findings above. Contrast-enhanced MRI recommended Head CT 11/06/24 12:46 Impression: 1.No acute intracranial abnormality. Thoracentesis Ultrasound 11/08/24 11:36 IMPRESSION: 1. Successful ultrasound-guided thoracentesis yielding 250 mL of yellow fluid. Chest X-Ray 11/09/24 08:11 Impression: Bilateral pneumonia. The findings are progressed compared to the previous study Labs Labs: Laboratory Results - last 24 hr 11/08/24 11/08/24 11/09/24 10:58 10:59 16:36 WBC RBC Hgb Hct MCV MCH MCHC RDW Plt Count MPV Immature Gran % (Auto) Neut % (Auto) Lymph % (Auto) [place] % (Auto) Eos % (Auto) Baso % (Auto) Lymph # (Auto) [place] # (Auto) Eos # (Auto) Baso # (Auto) Abs Immat Gran (auto) Absolute Neuts (auto) Absolute Nucleated RBC Nucleated RBC % PT INR Sodium Potassium Chloride Carbon Dioxide Anion Gap BUN Creatinine Estim Creat Clear Calc Estimated GFR Glucose Calcium Phosphorus Magnesium Total Bilirubin AST ALT Alkaline Phosphatase C-Reactive Protein NT-Pro-B Natriuret Pep Total Protein Albumin Procalcitonin Fluid Glucose 106 Fluid Total Protein 2.7 Fluid Albumin 1.7 Fluid LDH 226 C. difficile (PCR) Positive A* 11/09/24 11/10/24 21:16 05:09 WBC 20.5 H 21.8 H RBC 3.56 L 3.53 L Hgb 11.0 L 10.9 L Hct 32.0 L 31.7 L MCV 89.9 89.8 MCH 30.9 30.9 MCHC 34.4 34.4 RDW 13.2 13.4 Plt Count 415 H 401 H MPV 9.7 9.4 Immature Gran % (Auto) 2.4 H Neut % (Auto) 89.6 H Lymph % (Auto) 3.9 L [place] % (Auto) 3.3 Eos % (Auto) 0.2 Baso % (Auto) 0.6 Lymph # (Auto) 0.80 L [place] # (Auto) 0.7 H Eos # (Auto) 0.1 Baso # (Auto) 0.1 Abs Immat Gran (auto) 0.50 H Absolute Neuts (auto) 18.3 H Absolute Nucleated RBC 0.000 Nucleated RBC % 0.0 PT 20.0 H INR 1.7 Sodium 122 L Potassium 3.6 Chloride 92 L Carbon Dioxide 14 L Anion Gap 16 H BUN 95 H Creatinine 4.51 H Estim Creat Clear Calc 9 Estimated GFR 9 L Glucose 101 Calcium 7.6 L Phosphorus 8.4 H Magnesium 1.8 Total Bilirubin 0.4 AST 33 ALT 22 Alkaline Phosphatase 113 C-Reactive Protein 8.8 H NT-Pro-B Natriuret Pep 1940 H Total Protein 4.9 L Albumin 2.5 L Procalcitonin 1.8 Fluid Glucose Fluid Total Protein Fluid Albumin Fluid LDH C. difficile (PCR)
--- NOTE | 2024-11-10 12:58 | PCNFU ---
Nutrition Follow-Up Complete: Inadequate oral intake related to altered GI function as evidenced by diverticulitis Goal:Diet advancement Improve PO intake when diet advanced Pt NPO at this time Pt current nutrition is NPO, was on a heart healthy diet. Nutrition recommendation: resume diet when appropriate, add Banatrol BID for c.diff Last recorded weight is 75.9 kg. Bowel Motility: +BM 11/09 Labs Reviewed: Hgb:10.9, HCt:31.7, Na:122, BUN:95, Cr:4.5, Phos: 8.4 Meds Noted: eliquis, flagyl Skin: WNL Additional Notes: Pt was on a heart healthy diet, 25% intake, NPO today for possible dialysis catheter placement. Pt positive with c.diff. Recommend to resume diet post procedure and add Banatrol BID for c.diff. Monitoring diet orders, weights, labs, plan of care Follow up in 3 days
--- NOTE | 2024-11-10 13:04 | W.PM.PROC2 ---
Procedure Note - Detailed Date of Procedure 11/10/24 Pre-op Diagnosis Acute renal failure, C diff colitis Post-op Diagnosis Same Procedure Performed Right IJ Cecil dialysis catheter placement using ultrasound guidance Surgeon Stefan Aranda, DO Anesthesia Local (1% Lidocaine) Indications Acute renal failure Findings SonoSite ultrasound was used to identify the right internal jugular vein. This was visualized as a compressible vessel just lateral to the pulsatile carotid artery. The right internal jugular vein was accessed with an 18 gauge introducer needle under direct ultrasound visualization. Dark nonpulsatile blood was aspirated. The guidewire advanced moved fully. The 12 [place] triple-lumen 16 cm dialysis catheter was then advanced. X-ray is pending to confirm proper position of placement. Description of Procedure Procedure, risks, benefits, and alternatives were discussed with the patient. Written consent was obtained and placed in chart prior to procedure. Patient was placed supine in hospital bed and placed in slight Trendelenburg position. Time-out was done to confirm patient and procedure. The right neck and chest area was prepped and draped in sterile fashion using chlorhexidine prep. SonoSite ultrasound was used to identify the right internal jugular vein. 1% lidocaine was infiltrated directly over this area. An 18 gauge introducer needle was advanced under ultrasound guidance directly into the right internal jugular vein. Dark nonpulsatile blood was aspirated. A 0.035 in guidewire was then advanced through the needle. The guidewire advanced smoothly. The needle was then withdrawn leaving the guidewire in place. A small janet incision was made at the insertion site using an 11 blade scalpel. The blue dilators were then advanced over the guidewire to dilate the vessel. The 12 [place] triple lumen 16 cm dialysis catheter was then advanced over the guidewire until it was in place. The guidewire was removed. All 3 lumens were then aspirated and flushed with sterile saline. All 3 lumens function with ease. Caps were placed over the lumens. Glue was placed at the insertion site and the catheter was secured in place using 3 0 nylon simple interrupted sutures. A Tegaderm dressing was then applied over top. The patient was then sat up in bed and chest x-ray was ordered to confirm placement. Implants 12 [place] triple-lumen 16 cm dialysis catheter Estimated Blood Loss 5 Urine Output 150 Complications No immediate complications Condition Stable Disposition No change [facility] Billing Surgery - Charge Forward: Surgery Billing
--- NOTE | 2024-11-10 14:31 | PCOTNOTE ---
Attempted to see for OT treatment this afternoon. Patient being transported off the floor for dialysis. Will continue to attempt.
--- NOTE | 2024-11-10 14:47 | PC.NURSE ---
Patient transported to dialysis room at 1448. network intern to resume care at this time.
--- NOTE | 2024-11-10 15:15 | P.PNNP_ITS ---
Progress Note: A&P Assessment and Plan (1) Acute kidney injury: Code(s): N17.9 - Acute kidney failure, unspecified Status: Acute Assessment and Plan: * continues to worsen * as noted by admission labs (creatinine of 3.03mg/dL) * creatinine normal 2 days prior to admission * baseline creatinine runs ~ 0.9 - 1.1mg/dL * suspect multifactorial etiology: * prerenal factors * infection/early sepsis (diverticulitis/colitis) * contrast exposure (CT of A/P on 11/01) * relative hypotension on presentation * JAMIE-I/diuretic use prior to admission * urinary retention(?) - difficulty urinating on admission so gamble catheter placed * other (?) * off IVFs due to concerns for volume overload * evaluation to date noted: * renal ultrasound without obstruction * urine electrolytes prerenal * urine eosinophils negative * CPK normal * mild proteinuria * holding lisinopril and spironolactone * initiated on [employer]/HD today * likely plan HD tomorrow as well * still somewhat responsive to diuretic therapy * follow trend of repeat labs and UOP (2) Clostridium difficile colitis: Code(s): A04.72 - Enterocolitis due to Clostridium difficile, not specified as recurrent Status: Acute Assessment and Plan: * demonstrated by C. diff toxin assay * also noted by CT imaging to date: * CT of C/A/P (11/05): Diffuse colitis detailed above, correlate for underlying pseudomembranous colitis. No perforation or abscess * CT of A/P (11/04): No evidence of bowel perforation; persistent severe pancolitis * CT of A/P (11/03): Interval progression of radiographically uncomplicated selby colitis which could be infectious, inflammatory or less likely ischemic in etiology * CT of A/P (11/01): Sigmoid diverticulitis. No perforation or abscess * complicated by diverticulitis * follow culture data * follow trend of WBC * on antibiotics * Infectious Disease following (3) Acute hypoxic respiratory failure: Code(s): J96.01 - Acute respiratory failure with hypoxia Status: Acute Assessment and Plan: * improvement noted * multifactorial etiology: * bilateral pleural effusions * atelectasis * fluid overload * atrial flutter with rapid ventricular response * pancolitis * possible pneumonia (?) * diuresis as tolerated * s/p thoracentesis (on 11/08) * antibiotics for possible pneumonia * Pulmonary following with recommendations noted * fluid removal with dialysis as tolerated * follow respiratory status (4) Metabolic acidosis: Code(s): E87.20 - Acidosis, unspecified Status: Acute Assessment and Plan: * due to DONOVAN/ARF and GI symptoms * fluctuating lactic acid levels noted * bicarb IVFs not being given due to concerns about fluid overload * d/c oral sodium bicarbonate * dialysis should help correct * follow repeat labs (5) Hyponatremia: Code(s): E87.1 - Hypo-osmolality and hyponatremia Status: Acute Assessment and Plan: * as noted on admission * possible chronic component -- sodium seems to run 129 - 136mmol/L since 2021 * presumably worsen by: * DONOVAN/ARF * prerenal factors * pleural effusions * possible pneumonia * urinary retention * mild improvement s/p IVF resuscitation * should correct to some degree with dialysis * follow trend of sodium (6) Atrial flutter: Code(s): I48.92 - Unspecified atrial flutter Status: Acute Assessment and Plan: * as noted by events early on 11/05 * attempting rate control strategy * Cardiology recommendations noted * on metoprolol * was on IV amiodarone (temporary measure) * Echo noted (on 11/07) * left ventricular systolic function is hyperdynamic, estimated at > 70% * left ventricular diastolic function is grade I diastolic dysfunction * no aortic valve stenosis * mild tricuspid valve regurgitation * anticoagulation on hold (7) Elevated troponin: Code(s): R79.89 - Other specified abnormal findings of blood chemistry Status: Acute Assessment and Plan: * due to DONOVAN versus atrial fluttter with RVR * trend noted * Cardiology already following (8) Hypertension: Code(s): I10 - Essential (primary) hypertension Status: Chronic Assessment and Plan: * reasonable control * holding JAMIE-I and diuretics due to #1 * follow trend of hemodynamics Will continue to follow. L Subjective Date/time seen: 11/10/24 15:15 Interval history: Follow-up for acute kidney injury/acute renal failure. Better urine output noted with high dose IV diuretics but at the expense of renal function/creatinine as noted by AM labs today; s/p temporary HD catheter placement earlier today and tolerating dialysis treatment at the time of my visit (seen on HD at 3:05pm); noted to be positive for C. difficile colitis yesterday evening; major complaint is that of diffuse abdominal discomfort/cramping in association with diarrhea. Exam 2 Narrative: General: elderly but WD/WN female in NAD Heart: tachycardic, normal S1 and S2; no rub Lungs: coarse and decreased at bases Abdomen: soft, mild distension with +TTP, positive bowel sounds Extremities: no cyanosis or clubbing; no edema Skin: warm and dry Objective Data Vital Signs Vital Signs: Vital Signs Temp Pulse Resp BP Pulse Ox O2 Del Method O2 Flow Rate 11/10/24 15:15 66 132/41 L 11/10/24 14:58 62 151/47 H 11/10/24 14:50 97.7 F 62 18 145/52 H 94 11/10/24 14:50 1 11/10/24 14:00 68 11/10/24 12:00 65 11/10/24 12:00 92 High Flow Nasal Cannula 1 11/10/24 12:00 98.6 F 63 18 137/51 L 91 11/10/24 10:00 62 11/10/24 09:14 66 11/10/24 08:00 66 11/10/24 08:00 90 High Flow Nasal Cannula 1 11/10/24 08:00 98.4 F 67 24 H 134/45 L 93 11/10/24 07:43 94 High Flow Nasal Cannula 3 11/10/24 06:00 60 11/10/24 04:00 62 11/10/24 04:00 97.9 F 62 18 121/63 93 11/10/24 02:00 60 11/10/24 00:00 59 L 11/09/24 23:45 98 F 59 L 18 151/53 H 93 11/09/24 22:00 58 L 11/09/24 20:25 60 18 94 Nasal Cannula 3 11/09/24 20:00 59 L 11/09/24 20:00 98.1 F 60 18 137/54 L 94 11/09/24 18:00 57 L 11/09/24 16:56 61 Intake/Output Intake/Output: Intake & Output 11/07/24 11/08/24 11/09/24 11/10/24 23:59 23:59 23:59 23:59 Intake Total 1175.1 540 1340 450 Output Total 900 975 700 902 Balance 275.1 -435 640 -452 Meds/Results Medications: Active Medications Generic Name Dose Route Start Last Admin Trade Name Freq PRN Reason Stop Dose Admin Acetaminophen 650 mg 11/06/24 12:18 11/09/24 13:38 Acetaminophen 325 Mg Tablet PO 650 mg Q4H PRN Administration Headache Alprazolam 0.25 mg 11/03/24 19:16 11/10/24 00:45 Alprazolam (*Crx) 0.25 Mg Tablet PO 0.25 mg QHS PRN Administration Anxiety Apixaban 5 mg 11/08/24 21:45 11/09/24 08:37 Apixaban 5 Mg Tablet PO 5 mg On Hold: 11/09/24 09:14 Q12HR KEVIN Administration Cyclosporine 1 drop 11/03/24 21:00 11/10/24 09:13 Cyclosporine 0.4 Ml Ophth Solution EACH EYE 1 drop Q12HR KEVIN Administration Metronidazole 500 mg in 100 mls @ 100 mls/hr 11/08/24 13:00 11/10/24 14:18 Flagyl 500 Mg/Iso Soln 100 Ml IVPB Infused Q8HR KEVIN Infusion Albumin Human 50 mls @ 999 mls/hr 11/10/24 09:33 Albutein IVPB 12/10/24 09:32 Q10M PRN HYPOTENSION Metoprolol Tartrate 50 mg 11/08/24 09:00 11/10/24 09:14 Metoprolol Tartrate 50 Mg Tab PO 50 mg BID KEVIN Administration Simvastatin 20 mg 11/04/24 09:00 11/10/24 09:15 Simvastatin 20 Mg Tablet PO 20 mg On Hold: 11/10/24 10:41 DAILY KEVIN Administration Sodium Chloride 10 ml 11/06/24 22:00 11/10/24 13:18 Central Line Flush IV PUSH 10 ml Q8HR KEVIN Administration Sodium Chloride 10 ml 11/06/24 14:29 Central Line Flush IV PUSH PRN PRN with TPN bag changes Sodium Chloride 20 ml 11/06/24 14:29 Central Line Flush IV PUSH PRN PRN after blood draws Trazodone HCl 50 mg 11/03/24 21:00 11/09/24 21:19 Trazodone Hcl 50 Mg Tablet PO 50 mg QHS KEVIN Administration Vancomycin HCl 500 mg 11/06/24 08:15 11/10/24 12:00 Vancomycin Hcl 250 Mg Oral Capsule PO 500 mg Q6HR KEVIN Administration Radiology Results: ITS Impressions Abdomen/Pelvis CT 11/04/24 12:36 IMPRESSION: 1. No evidence of bowel perforation. 2. Persistent severe pancolitis. 3. New small scattered ascites. 4. New small pleural effusions and significant bibasilar atelectasis. Renal Ultrasound 11/04/24 19:07 Impression: Simple appearing left renal cyst. No significant medical renal disease or obstruction Abdomen X-Ray 11/05/24 16:02 Impression: 1. Findings concerning for small bowel obstruction. CT is suggested Chest/Abdomen/Pelvis CT 11/05/24 17:04 IMPRESSION: 1. Diffuse colitis detailed above, correlate for underlying pseudomembranous colitis. No perforation or abscess. Follow-up recommended to assess. 2. CHF with superimposed probable bronchopneumonia. 3. Incidental findings above. Contrast-enhanced MRI recommended Head CT 11/06/24 12:46 Impression: 1.No acute intracranial abnormality. Thoracentesis Ultrasound 11/08/24 11:36 IMPRESSION: 1. Successful ultrasound-guided thoracentesis yielding 250 mL of yellow fluid. Labs Labs: Laboratory Tests 11/10/24 05:09 11/10/24 05:09 Calcium 7.6 L Phosphorus 8.4 H Magnesium 1.8 Total Bilirubin 0.4 AST 33 ALT 22 Alkaline Phosphatase 113 C-Reactive Protein 8.8 H NT-Pro-B Natriuret Pep 1940 H Total Protein 4.9 L Albumin 2.5 L Procalcitonin 1.8 Microbiology 11/08/24 10:58 Thoracentesis Fluid Sterile Body Fluid Culture - Preliminary 11/08/24 10:58 Pleural Fluid Fungal Culture - Preliminary 11/08/24 14:35 Stool Clostridium difficile Toxin A & B - Final 11/08/24 10:58 Pleural Fluid AFB Specimen Processing - Final 11/08/24 10:58 Pleural Fluid Acid Fast Bacilli Smear - Final 11/08/24 10:58 Pleural Fluid Acid Fast Bacilli Culture - Preliminary 11/06/24 17:15 Stool Salmonella/Shigella Screen - Final 11/06/24 17:15 Stool Shiga Toxin (EIA) - Final 11/06/24 15:18 Urine - Urine gamble port Legionella pneumophila Serogrp 1 Ag - Final 11/03/24 14:38 Blood Blood Culture - Final 11/03/24 14:47 Blood Blood Culture - Final
[2024-11-10] MEDS: SODIUM CHLORIDE 0.9% IV 1,000 ML 999 ML IV CONT (17:11)
--- NOTE | 2024-11-10 17:49 | PC.NURSE ---
Patient transported back to IMU room 214 at 1749 from dialysis.
[2024-11-11] VITALS (29 sets, daily range): BP systolic 89–165; BP diastolic 43–103; PULSE 55–74; RESP 16–24; TEMP 36.1–37.1; O2SAT 89–100
[2024-11-11] MEDS: VANCOMYCIN HCL 250 MG ORAL CAPSULE 500 MG PO ×5 (00:12→23:54)
[2024-11-11 04:52] LABS: Hematocrit 31.7 % (37.0-47.0); Hemoglobin 11.1 g/dL (12.0-15.0); Immature Granulocyte Percent A 3.1 % (0-0.5); Lymphocytes Absolute Auto 0.98 K/mm3 (0.9-3.2); Mean Corpuscular HGB Conc 35.0 g/dl (32-36); Mean Corpuscular Hemoglobin 31.4 pg (26-34); Mean Corpuscular Volume 89.8 fl (80-100); Nucleated Red Blood Cells Absolute Auto 0.000 K/mm3 (0.0-0.012); Nucleated Red Blood Cells Perc 0.0 % (0.0-0.2); Platelet Count Result 424 k/mm3 (150-375); Red Blood Count 3.53 M/mm3 (4.2-5.4); White Blood Count 23.7 K/mm3 (4.5-10.0)
[2024-11-11 05:10] LABS: Anisocytosis 1+; Burr Cells 1+; Schistocytes None Seen
[2024-11-11 05:30] LABS: Alanine Aminotransferase 21 U/L (6-35); Albumin Level 2.6 g/dL (3.5-5.1); Alkaline Phosphatase 139 U/L (38-126); Anion Gap 13 mmol/L (4-12); Aspartate Amino Transferase 54 U/L (14-36); Bilirubin,Total 0.5 mg/dL (0.2-1.3); Blood Urea Nitrogen 60 mg/dL (7-17); Calcium 7.6 mg/dL (8.4-10.2); Carbon Dioxide 18 mmol/L (22-30); Chloride 97 mmol/L (98-107); Estimated CRCL calculation 13 ml/min; Estimated Glomerular Filt Rate 14; Glucose 109 mg/dL (65-110); Potassium 3.6 mmol/L (3.4-5.0); Sodium 128 mmol/L (137-145); Total Protein 5.2 g/dL (6.3-8.2)
[2024-11-11] MEDS: metroNIDAZOLE 500 MG/ISO 100ML 500 MG/100 ML BAG 100 MG IVPB ×3 (06:07→21:13)
[2024-11-11] MEDS: CENTRAL LINE FLUSH 10 ML IV PUSH ×3 (06:07→21:13)
--- NOTE | 2024-11-11 06:38 | PC.NURSE ---
Patient feeling anxious about dialysis today, requesting xanax. Dr Walsh called and order for 0.25mg xanax PRN before dialysis on dialysis days received.
[2024-11-11 07:08] LABS: Osmolality, Urine 351 mOsmol/kg (.)
[2024-11-11] MEDS: ALPRAZolam (*CRX) 0.25 MG TABLET PO ×2 (08:16→21:13)
[2024-11-11] MEDS: cycloSPORINE 0.4 ML OPHTH SOLUTION 1 DROP EACH EYE ×2 (08:16→21:13)
[2024-11-11] MEDS: METOPROLOL TARTRATE 50 MG TAB PO ×2 (08:16→17:18)
--- NOTE | 2024-11-11 10:10 | P.PNNP_ITS ---
Progress Note: A&P Assessment and Plan (1) Acute kidney injury: Code(s): N17.9 - Acute kidney failure, unspecified Status: Acute Assessment and Plan: * as noted by admission labs (creatinine of 3.03mg/dL) * creatinine normal 2 days prior to admission * baseline creatinine runs ~ 0.9 - 1.1mg/dL * suspect multifactorial etiology: * prerenal factors * infection/early sepsis (diverticulitis/colitis) * contrast exposure (CT of A/P on 11/01) * relative hypotension on presentation * JAMIE-I/diuretic use prior to admission * urinary retention(?) - difficulty urinating on admission so gamble catheter placed * other (?) * off IVFs due to concerns for volume overload * evaluation to date noted: * renal ultrasound without obstruction * urine electrolytes prerenal * urine eosinophils negative * CPK normal * mild proteinuria * holding lisinopril and spironolactone * initiated on [employer]/HD on 11/10 * HD today * likely plan to hold HD tomorrow * follow trend of repeat labs and UOP (2) Clostridium difficile colitis: Code(s): A04.72 - Enterocolitis due to Clostridium difficile, not specified as recurrent Status: Acute Assessment and Plan: * demonstrated by positive C. diff toxin assay * also noted by CT imaging to date: * CT of C/A/P (11/05): Diffuse colitis detailed above, correlate for underlying pseudomembranous colitis. No perforation or abscess * CT of A/P (11/04): No evidence of bowel perforation; persistent severe pancolitis * CT of A/P (11/03): Interval progression of radiographically uncomplicated selby colitis which could be infectious, inflammatory or less likely ischemic in etiology * CT of A/P (11/01): Sigmoid diverticulitis. No perforation or abscess * complicated by diverticulitis * follow culture data * follow trend of WBC * on antibiotics * Infectious Disease following (3) Acute hypoxic respiratory failure: Code(s): J96.01 - Acute respiratory failure with hypoxia Status: Acute Assessment and Plan: * improvement noted * multifactorial etiology: * bilateral pleural effusions * atelectasis * fluid overload * atrial flutter with rapid ventricular response * pancolitis * possible pneumonia (?) * diuresis as tolerated * s/p thoracentesis (on 9/24) * antibiotics for possible pneumonia * Pulmonary following with recommendations noted * fluid removal with dialysis as tolerated * follow respiratory status (4) Metabolic acidosis: Code(s): E87.20 - Acidosis, unspecified Status: Acute Assessment and Plan: * due to DONOVAN/ARF and GI issues/symptoms * fluctuating lactic acid levels noted * dialysis should help correct * follow repeat labs (5) Hyponatremia: Code(s): E87.1 - Hypo-osmolality and hyponatremia Status: Acute Assessment and Plan: * as noted on admission * possible chronic component -- sodium seems to run 129 - 136mmol/L since 2021 * presumably worsen by: * DONOVAN/ARF * prerenal factors * pleural effusions * possible pneumonia * urinary retention * mild improvement s/p IVF resuscitation * should correct to some degree with dialysis * follow trend of sodium (6) Atrial flutter: Code(s): I48.92 - Unspecified atrial flutter Status: Acute Assessment and Plan: * as noted by events early on 11/05 * rate control strategy * Cardiology recommendations noted * on metoprolol * was on IV amiodarone (temporary measure) * Echo noted (on 11/07) * left ventricular systolic function is hyperdynamic, estimated at > 70% * left ventricular diastolic function is grade I diastolic dysfunction * no aortic valve stenosis * mild tricuspid valve regurgitation * anticoagulation on hold (7) Elevated troponin: Code(s): R79.89 - Other specified abnormal findings of blood chemistry Status: Acute Assessment and Plan: * due to DONOVAN versus atrial fluttter with RVR * trend noted * Cardiology already following (8) Hypertension: Code(s): I10 - Essential (primary) hypertension Status: Chronic Assessment and Plan: * reasonable control * holding JAMIE-I and diuretics due to #1 * follow trend of hemodynamics Will continue to follow. L Subjective Date/time seen: 11/11/24 10:10 Interval history: Follow-up for acute kidney injury/acute renal failure. Tolerating dialysis treatment at the time of my visit (seen on HD at 10:00am); tolerated temporary HD catheter placement and dialysis yesteday afternoon as well; still with on/off abdominal pain when seen; issues with anxiety in association with dialysis treatments that appears better with use of benadryl and xanax; no other acute issues noted. Exam 2 Narrative: General: elderly but WD/WN female in NAD Heart: tachycardic, normal S1 and S2; no rub Lungs: coarse and decreased at bases Abdomen: soft, mild distension with +TTP, positive bowel sounds Extremities: no cyanosis or clubbing; no edema Skin: warm and intact Objective Data Vital Signs Vital Signs: Vital Signs Temp Pulse Resp BP Pulse Ox O2 Del Method O2 Flow Rate 11/11/24 10:00 70 120/59 L 11/11/24 09:45 69 115/58 L 11/11/24 09:30 69 136/60 11/11/24 09:15 67 130/58 L 11/11/24 09:00 68 151/60 H 11/11/24 08:42 67 138/103 H 11/11/24 08:42 1 11/11/24 08:32 98.2 F 68 18 165/84 H 91 11/11/24 08:00 67 11/11/24 08:00 91 Nasal Cannula 1 11/11/24 08:00 97.7 F 64 16 150/43 H 90 11/11/24 06:00 59 L 11/11/24 04:00 61 11/11/24 04:00 90 Nasal Cannula 1 11/11/24 04:00 98.5 F 66 19 119/53 L 92 11/11/24 02:00 61 11/11/24 00:15 91 Nasal Cannula 1 11/11/24 00:00 64 11/11/24 00:00 98.2 F 67 17 117/43 L 89 L 11/10/24 22:00 66 11/10/24 21:19 90 Nasal Cannula 1 11/10/24 20:00 68 11/10/24 19:25 97.8 F 69 17 140/48 L 92 11/10/24 18:00 65 11/10/24 18:00 92 High Flow Nasal Cannula 1 11/10/24 17:54 72 11/10/24 17:50 97.5 F L 72 18 130/58 L 92 11/10/24 17:34 97.7 F 69 18 131/47 L 11/10/24 17:28 67 98/47 L 11/10/24 17:15 67 113/47 L 11/10/24 17:00 65 98/41 L 11/10/24 16:45 67 101/42 L 11/10/24 16:30 64 138/48 L 11/10/24 16:15 64 104/53 L 11/10/24 16:00 67 11/10/24 16:00 67 92/50 L 11/10/24 15:45 68 140/51 L 11/10/24 15:30 62 118/50 L 11/10/24 15:15 66 132/41 L 11/10/24 14:58 62 151/47 H 11/10/24 14:50 97.7 F 62 18 145/52 H 94 11/10/24 14:50 1 11/10/24 14:00 68 11/10/24 12:00 65 11/10/24 12:00 92 High Flow Nasal Cannula 1 11/10/24 12:00 98.6 F 63 18 137/51 L 91 Intake/Output Intake/Output: Intake & Output 11/08/24 11/09/24 11/10/24 11/11/24 23:59 23:59 23:59 23:59 Intake Total 540 1340 690 620 Output Total 827 239 2432 275 Balance -435 640 -980 345 Meds/Results Medications: Active Medications Generic Name Dose Route Start Last Admin Trade Name Freq PRN Reason Stop Dose Admin Acetaminophen 650 mg 11/06/24 12:18 11/09/24 13:38 Acetaminophen 325 Mg Tablet PO 650 mg Q4H PRN Administration Headache Alprazolam 0.25 mg 11/03/24 19:16 11/10/24 00:45 Alprazolam (*Crx) 0.25 Mg Tablet PO 0.25 mg QHS PRN Administration Anxiety Alprazolam 0.25 mg 11/11/24 06:34 11/11/24 08:16 Alprazolam (*Crx) 0.25 Mg Tablet PO 0.25 mg WITH DIALYSIS PRN Administration Anxiety Apixaban 5 mg 11/08/24 21:45 11/09/24 08:37 Apixaban 5 Mg Tablet PO 5 mg On Hold: 11/09/24 09:14 Q12HR KEVIN Administration Cyclosporine 1 drop 11/03/24 21:00 11/11/24 08:16 Cyclosporine 0.4 Ml Ophth Solution EACH EYE 1 drop Q12HR KEVIN Administration Epoetin Jarred-epbx 4,000 units 11/11/24 18:00 11/11/24 11:09 Epoetin Jarred-Epbx 4,000 Units/Ml Vial IV PUSH 11/11/24 18:01 4,000 units ONCE ONE Administration Metronidazole 500 mg in 100 mls @ 100 mls/hr 11/08/24 13:00 11/11/24 06:07 Flagyl 500 Mg/Iso Soln 100 Ml IVPB 100 mls/hr Q8HR KEVIN Administration Albumin Human 50 mls @ 999 mls/hr 11/10/24 09:33 Albutein IVPB 12/10/24 09:32 Q10M PRN HYPOTENSION Metoprolol Tartrate 50 mg 11/08/24 09:00 11/11/24 08:16 Metoprolol Tartrate 50 Mg Tab PO 50 mg BID KEVIN Administration Simvastatin 20 mg 11/04/24 09:00 11/10/24 09:15 Simvastatin 20 Mg Tablet PO 20 mg On Hold: 11/10/24 10:41 DAILY KEVIN Administration Sodium Chloride 10 ml 11/06/24 22:00 11/11/24 06:07 Central Line Flush IV PUSH 10 ml Q8HR KEVIN Administration Sodium Chloride 10 ml 11/06/24 14:29 Central Line Flush IV PUSH PRN PRN with TPN bag changes Sodium Chloride 20 ml 11/06/24 14:29 Central Line Flush IV PUSH PRN PRN after blood draws Trazodone HCl 50 mg 11/03/24 21:00 11/10/24 21:19 Trazodone Hcl 50 Mg Tablet PO 50 mg QHS KEVIN Administration Vancomycin HCl 500 mg 11/06/24 08:15 11/11/24 06:06 Vancomycin Hcl 250 Mg Oral Capsule PO 500 mg Q6HR KEVIN Administration Radiology Results: ITS Impressions Abdomen/Pelvis CT 11/04/24 12:36 IMPRESSION: 1. No evidence of bowel perforation. 2. Persistent severe pancolitis. 3. New small scattered ascites. 4. New small pleural effusions and significant bibasilar atelectasis. Renal Ultrasound 11/04/24 19:07 Impression: Simple appearing left renal cyst. No significant medical renal disease or obstruction Abdomen X-Ray 11/05/24 16:02 Impression: 1. Findings concerning for small bowel obstruction. CT is suggested Chest/Abdomen/Pelvis CT 11/05/24 17:04 IMPRESSION: 1. Diffuse colitis detailed above, correlate for underlying pseudomembranous colitis. No perforation or abscess. Follow-up recommended to assess. 2. CHF with superimposed probable bronchopneumonia. 3. Incidental findings above. Contrast-enhanced MRI recommended Head CT 11/06/24 12:46 Impression: 1.No acute intracranial abnormality. Thoracentesis Ultrasound 11/08/24 11:36 IMPRESSION: 1. Successful ultrasound-guided thoracentesis yielding 250 mL of yellow fluid. Chest X-Ray 11/11/24 08:57 IMPRESSION: 1. No significant change. 2. Pleural effusions with bibasilar atelectasis and/or airspace disease. 3. No pneumothorax. Labs Labs: Laboratory Tests 11/11/24 04:47 11/11/24 04:47 Calcium 7.6 L Phosphorus 6.4 H Total Bilirubin 0.5 AST 54 H ALT 21 Alkaline Phosphatase 139 H Total Protein 5.2 L Albumin 2.6 L Microbiology 11/08/24 10:58 Thoracentesis Fluid Sterile Body Fluid Culture - Preliminary 11/08/24 10:58 Pleural Fluid Fungal Culture - Preliminary
[2024-11-11] MEDS: EPOETIN ALFA-EPBX 4,000 UNITS/ML VIAL 4000 UNITS IV PUSH (11:09)
--- NOTE | 2024-11-11 16:22 | P.PNIM_ITS ---
Progress Note: A&P Assessment and Plan (1) Hypertension: Code(s): I10 - Essential (primary) hypertension Status: Chronic (2) Elevated troponin: Code(s): R79.89 - Other specified abnormal findings of blood chemistry Status: Acute (3) Atrial flutter: Code(s): I48.92 - Unspecified atrial flutter Status: Acute (4) Pancolitis: Code(s): K52.9 - Noninfective gastroenteritis and colitis, unspecified Status: Acute (5) Acute kidney injury: Code(s): N17.9 - Acute kidney failure, unspecified Status: Acute (6) Metabolic acidosis: Code(s): E87.20 - Acidosis, unspecified Status: Acute (7) Acute hypoxic respiratory failure: Code(s): J96.01 - Acute respiratory failure with hypoxia Status: Acute (8) Pleural effusion: Code(s): J90 - Pleural effusion, not elsewhere classified Status: Acute (9) Clostridium difficile colitis: Code(s): A04.72 - Enterocolitis due to Clostridium difficile, not specified as recurrent Status: Acute Plan 78-year-old female with past medical history of hypertension presents the hospital with acute abdominal pain. Patient presented to the emergency room on 11/01/2021 and diagnosed with diverticulitis without abscess and sent home with p.o. antibiotics. She states that she has not improved. Patient complains of explosive diarrhea and abdominal pain knows only increased since she left the hospital couple days ago. She denies nausea and vomiting. Lab work in the ED shows leukocytosis at 21.8 sodium of 123, chloride 91, carbon dioxide 17, anion gap of 15, BUN of 31, creatinine of 3.30 with baseline being 0.99, GFR 15, glucose 241, calcium 7.9, CT abdomen pelvis show Interval progression of radiographically uncomplicated selby colitis which could be infectious, inflammatory or less likely ischemic in etiology. (1) Clostridium difficulty associated colitis: Patient is currently on p.o. vancomycin, IV Flagyl Zosyn discontinued Leukocytosis persistent, procalcitonin 1.8, however she remains afebrile and clinically she is improving. Will continue with current management appreciate any further ID recommendations. Rectal tube in place. (2) Acute kidney injury+ hyponatremia: Infection vs Contrast related injury vs prerenal Nephrology is following, right IJ Cecil dialysis catheter placed on 11/10/2024. Dialysis on 11/10/2024, tolerated. Will go again on 11/11/2024. Has Holland catheter, monitor urine output Hyponatremia, improving after dialysis. Holding [employer] statin lisinopril and Aldactone. 3. AFib with RVR: Currently in sinus rhythm Continue tele monitoring Eliquis on hold since dialysis catheter placement. Considering temporary dialysis and unknown disposition, will start heparin in the interim. Appreciate cardiology help Continue metoprolol 50 mg b.i.d. Digoxin has been stopped due to renal failure 4. Acute hypoxic respiratory failure: Currently on 1 L, she is breathing comfortably, in as tolerated. Pulmonology consulted, less likely pneumonia, pneumonia specific antibiotics discontinued. Status post thoracentesis on 11/08/2024 showing exudative effusion, not infectious, macrophage predominant, likely related to colitis/fluid overload related to acute kidney injury. EZ Pap started for bilateral atelectasis. Echocardiogram on 10/08 demonstrating normal left ventricular function. 5. Anxiety: Continue with home Xanax 6. Hypertension: Blood pressure medication remains on hold 7. DVT prophylaxis: SCDs, Eliquis on hold as mentioned above, heparin GTT started on 11/11/2024 8. Code status: Full 9. Disposition: Pending, multiple acute comorbidities. Ongoing PT/OT evaluation and treatment. Time Spent With Patient Time: 41 minutes Time with patient: Greater than 35 minutes Subjective Date/time seen: 11/11/24 16:22 Interval history: No major acute overnight events. Patient believes her breathing is good, he thinks her abdominal pain is improved. She rest comfortably, she has not had diarrhea today. Review of Systems Review of Systems: All systems reviewed & are unremarkable except as noted in HPI and below (Subjective) Exam Const: General: comfortable and no acute distress Other: Tired appearing HENMT: Mouth: Yes moist mucous membranes Neck: Neck: supple Resp: Effort & Inspection: normal respiratory effort Auscultation: clear to auscultation bilaterally Cardio: Rate: regular rate Rhythm: regular rhythm GI: GI Palp: Yes Soft to palpation and No Guarding due to palpation present (GI) Other: Mild distension, mild tenderness to deep palpation left greater than right Neuro: Motor exam (neuro): 5/5 motor strength present throughout Objective Data Vital Signs Vital Signs: Vital Signs - 24 hr 11/10/24 16:30 11/10/24 16:45 11/10/24 17:00 Temperature Pulse Rate 64 67 65 Respiratory Rate Blood Pressure 138/48 L 101/42 L 98/41 L Pulse Oximetry Oxygen Delivery Oxygen Flow Rate 11/10/24 17:15 11/10/24 17:28 11/10/24 17:34 Temperature 97.7 F Pulse Rate 67 67 69 Respiratory Rate 18 Blood Pressure 113/47 L 98/47 L 131/47 L Pulse Oximetry Oxygen Delivery Oxygen Flow Rate 11/10/24 17:50 11/10/24 17:54 11/10/24 18:00 Temperature 97.5 F L Pulse Rate 72 72 Respiratory Rate 18 Blood Pressure 130/58 L Pulse Oximetry 92 92 Oxygen Delivery High Flow Nasal Cannula Oxygen Flow Rate 1 11/10/24 18:00 11/10/24 19:25 11/10/24 20:00 Temperature 97.8 F Pulse Rate 65 69 68 Respiratory Rate 17 Blood Pressure 140/48 L Pulse Oximetry 92 Oxygen Delivery Oxygen Flow Rate 11/10/24 21:19 11/10/24 22:00 11/11/24 00:00 Temperature 98.2 F Pulse Rate 66 67 Respiratory Rate 17 Blood Pressure 117/43 L Pulse Oximetry 90 89 L Oxygen Delivery Nasal Cannula Oxygen Flow Rate 1 11/11/24 00:00 11/11/24 00:15 11/11/24 02:00 Temperature Pulse Rate 64 61 Respiratory Rate Blood Pressure Pulse Oximetry 91 Oxygen Delivery Nasal Cannula Oxygen Flow Rate 1 11/11/24 04:00 11/11/24 04:00 11/11/24 04:00 Temperature 98.5 F Pulse Rate 66 61 Respiratory Rate 19 Blood Pressure 119/53 L Pulse Oximetry 92 90 Oxygen Delivery Nasal Cannula Oxygen Flow Rate 1 11/11/24 06:00 11/11/24 08:00 11/11/24 08:00 Temperature 97.7 F Pulse Rate 59 L 64 Respiratory Rate 16 Blood Pressure 150/43 H Pulse Oximetry 90 91 Oxygen Delivery Nasal Cannula Oxygen Flow Rate 1 11/11/24 08:00 11/11/24 08:32 11/11/24 08:42 Temperature 98.2 F Pulse Rate 67 68 Respiratory Rate 18 Blood Pressure 165/84 H Pulse Oximetry 91 Oxygen Delivery Oxygen Flow Rate 1 11/11/24 08:42 11/11/24 09:00 11/11/24 09:15 Temperature Pulse Rate 67 68 67 Respiratory Rate Blood Pressure 138/103 H 151/60 H 130/58 L Pulse Oximetry Oxygen Delivery Oxygen Flow Rate 11/11/24 09:30 11/11/24 09:45 11/11/24 10:00 Temperature Pulse Rate 69 69 70 Respiratory Rate Blood Pressure 136/60 115/58 L 120/59 L Pulse Oximetry Oxygen Delivery Oxygen Flow Rate 11/11/24 10:00 11/11/24 10:15 11/11/24 10:30 Temperature Pulse Rate 73 69 73 Respiratory Rate Blood Pressure 122/62 103/63 Pulse Oximetry Oxygen Delivery Oxygen Flow Rate 11/11/24 10:45 11/11/24 11:00 11/11/24 11:15 Temperature Pulse Rate 71 69 70 Respiratory Rate Blood Pressure 134/65 106/57 L 105/53 L Pulse Oximetry Oxygen Delivery Oxygen Flow Rate 11/11/24 11:30 11/11/24 11:45 11/11/24 11:51 Temperature 98.1 F Pulse Rate 73 68 66 Respiratory Rate 24 H Blood Pressure 111/53 L 89/53 L 133/69 Pulse Oximetry 100 Oxygen Delivery Oxygen Flow Rate 11/11/24 12:00 11/11/24 12:00 11/11/24 12:00 Temperature 97.0 F L Pulse Rate 55 L 68 Respiratory Rate 24 H Blood Pressure 149/45 H Pulse Oximetry 91 92 Oxygen Delivery Nasal Cannula Oxygen Flow Rate 1 11/11/24 15:51 Temperature 97.5 F L Pulse Rate 71 Respiratory Rate 24 H Blood Pressure 159/60 H Pulse Oximetry 90 Oxygen Delivery Oxygen Flow Rate Intake/Output Intake/Output: Intake & Output 11/08/24 11/09/24 11/10/24 11/11/24 23:59 23:59 23:59 23:59 Intake Total 540 1340 690 720 Output Total 113 982 [id number] 1775 [facility] [phone] Meds/Results Medications: Active Medications Generic Name Dose Route Start Last Admin Trade Name Freq PRN Reason Stop Dose Admin Acetaminophen 650 mg 11/06/24 12:18 11/09/24 13:38 Acetaminophen 325 Mg Tablet PO 650 mg Q4H PRN Administration Headache Alprazolam 0.25 mg 11/03/24 19:16 11/10/24 00:45 Alprazolam (*Crx) 0.25 Mg Tablet PO 0.25 mg QHS PRN Administration Anxiety Alprazolam 0.25 mg 11/11/24 06:34 11/11/24 08:16 Alprazolam (*Crx) 0.25 Mg Tablet PO 0.25 mg WITH DIALYSIS PRN Administration Anxiety Apixaban 5 mg 11/08/24 21:45 11/09/24 08:37 Apixaban 5 Mg Tablet PO 5 mg On Hold: 11/09/24 09:14 Q12HR KEVIN Administration Cyclosporine 1 drop 11/03/24 21:00 11/11/24 08:16 Cyclosporine 0.4 Ml Ophth Solution EACH EYE 1 drop Q12HR KEVIN Administration Epoetin Jarred-epbx 4,000 units 11/11/24 18:00 11/11/24 11:09 Epoetin Jarred-Epbx 4,000 Units/Ml Vial IV PUSH 11/11/24 18:01 4,000 units ONCE ONE Administration Metronidazole 500 mg in 100 mls @ 100 mls/hr 11/08/24 13:00 11/11/24 14:37 Flagyl 500 Mg/Iso Soln 100 Ml IVPB 100 mls/hr Q8HR KEVIN Administration Albumin Human 50 mls @ 999 mls/hr 11/10/24 09:33 Albutein IVPB 12/10/24 09:32 Q10M PRN HYPOTENSION Metoprolol Tartrate 50 mg 11/08/24 09:00 11/11/24 08:16 Metoprolol Tartrate 50 Mg Tab PO 50 mg BID KEVIN Administration Simvastatin 20 mg 11/04/24 09:00 11/10/24 09:15 Simvastatin 20 Mg Tablet PO 20 mg On Hold: 11/10/24 10:41 DAILY KEVIN Administration Sodium Chloride 10 ml 11/06/24 22:00 11/11/24 14:37 Central Line Flush IV PUSH 10 ml Q8HR KEVIN Administration Sodium Chloride 10 ml 11/06/24 14:29 Central Line Flush IV PUSH PRN PRN with TPN bag changes Sodium Chloride 20 ml 11/06/24 14:29 Central Line Flush IV PUSH PRN PRN after blood draws Trazodone HCl 50 mg 11/03/24 21:00 11/10/24 21:19 Trazodone Hcl 50 Mg Tablet PO 50 mg QHS KEVIN Administration Vancomycin HCl 500 mg 11/06/24 08:15 11/11/24 12:36 Vancomycin Hcl 250 Mg Oral Capsule PO 500 mg Q6HR KEVIN Administration Radiology Results: ITS Impressions Abdomen/Pelvis CT 11/04/24 12:36 IMPRESSION: 1. No evidence of bowel perforation. 2. Persistent severe pancolitis. 3. New small scattered ascites. 4. New small pleural effusions and significant bibasilar atelectasis. Renal Ultrasound 11/04/24 19:07 Impression: Simple appearing left renal cyst. No significant medical renal disease or obstruction Abdomen X-Ray 11/05/24 16:02 Impression: 1. Findings concerning for small bowel obstruction. CT is suggested Chest/Abdomen/Pelvis CT 11/05/24 17:04 IMPRESSION: 1. Diffuse colitis detailed above, correlate for underlying pseudomembranous colitis. No perforation or abscess. Follow-up recommended to assess. 2. CHF with superimposed probable bronchopneumonia. 3. Incidental findings above. Contrast-enhanced MRI recommended Head CT 11/06/24 12:46 Impression: 1.No acute intracranial abnormality. Thoracentesis Ultrasound 11/08/24 11:36 IMPRESSION: 1. Successful ultrasound-guided thoracentesis yielding 250 mL of yellow fluid. Chest X-Ray 11/11/24 08:57 IMPRESSION: 1. No significant change. 2. Pleural effusions with bibasilar atelectasis and/or airspace disease. 3. No pneumothorax. Labs Labs: Laboratory Results - last 24 hr 11/04/24 11/11/24 13:05 04:47 WBC 23.7 H RBC 3.53 L Hgb 11.1 L Hct 31.7 L MCV 89.8 MCH 31.4 MCHC 35.0 RDW 13.5 Plt Count 424 H MPV 9.1 Immature Gran % (Auto) 3.1 H Neut % (Auto) 89.5 H Lymph % (Auto) 4.1 L Frio % (Auto) 2.9 Eos % (Auto) 0.1 Baso % (Auto) 0.3 Lymph # (Auto) 0.98 Frio # (Auto) 0.7 H Eos # (Auto) 0.0 Baso # (Auto) 0.1 Abs Immat Gran (auto) 0.74 H Absolute Neuts (auto) 21.2 H Absolute Nucleated RBC 0.000 Band Neutrophils % Not Reportable Nucleated RBC % 0.0 Platelet Estimate Adequate Anisocytosis 1+ Hollis Cells 1+ Schistocytes None seen Sodium 128 L Potassium 3.6 Chloride 97 L Carbon Dioxide 18 L Anion Gap 13 H BUN 60 H D Creatinine 3.24 H Estim Creat Clear Calc 13 Estimated GFR 14 L Glucose 109 Calcium 7.6 L Phosphorus 6.4 H Total Bilirubin 0.5 AST 54 H ALT 21 Alkaline Phosphatase 139 H Total Protein 5.2 L Albumin 2.6 L Urine Osmolality 351
[2024-11-11 17:46] LABS: INR 1.5; Prothrombin Time 18.1 Seconds (11.1-14.7)
[2024-11-11 17:47] LABS: Partial Thromboplastin Time 31.6 Seconds (22.3-36.8)
[2024-11-11] MEDS: HEPARIN SOD/D5W 100 UNITS/ML 25,000 UNITS/250 ML BAG 11 UNITS IV CONT (18:15)
[2024-11-11] MEDS: ALTEPLASE 2 MG VIAL (CATHFLO) IV PUSH (22:17)
[2024-11-12 00:06] LABS: Adenosine Deaminase RBC 407 mU/g Hb (400-900)
[2024-11-12 01:44] LABS: Partial Thromboplastin Time > 200.0 Seconds (22.3-36.8)
[2024-11-12 02:29] LABS: Hematocrit 32.9 % (37.0-47.0); Hemoglobin 11.1 g/dL (12.0-15.0); Immature Granulocyte Percent A 3.9 % (0-0.5); Lymphocytes Absolute Auto 1.60 K/mm3 (0.9-3.2); Mean Corpuscular HGB Conc 33.7 g/dl (32-36); Mean Corpuscular Hemoglobin 30.6 pg (26-34); Mean Corpuscular Volume 90.6 fl (80-100); Nucleated Red Blood Cells Absolute Auto 0.000 K/mm3 (0.0-0.012); Nucleated Red Blood Cells Perc 0.0 % (0.0-0.2); Platelet Count Result 435 k/mm3 (150-375); Red Blood Count 3.63 M/mm3 (4.2-5.4); White Blood Count 24.8 K/mm3 (4.5-10.0)
[2024-11-12 02:49] LABS: Anisocytosis 1+; Burr Cells 1+; Ovalocytes Occasional; Schistocytes None Seen
[2024-11-12 02:53] LABS: Partial Thromboplastin Time 175.9 Seconds (22.3-36.8)
[2024-11-12 03:01] LABS: Alanine Aminotransferase 19 U/L (6-35); Albumin Level 2.6 g/dL (3.5-5.1); Alkaline Phosphatase 109 U/L (38-126); Anion Gap 8 mmol/L (4-12); Aspartate Amino Transferase 25 U/L (14-36); Bilirubin,Total 0.4 mg/dL (0.2-1.3); Blood Urea Nitrogen 42 mg/dL (7-17); Calcium 7.6 mg/dL (8.4-10.2); Carbon Dioxide 25 mmol/L (22-30); Chloride 95 mmol/L (98-107); Estimated CRCL calculation 16 ml/min; Estimated Glomerular Filt Rate 18; Glucose 127 mg/dL (65-110); Potassium 3.4 mmol/L (3.4-5.0); Sodium 128 mmol/L (137-145); Total Protein 5.1 g/dL (6.3-8.2)
[2024-11-12] MEDS: metroNIDAZOLE 500 MG/ISO 100ML 500 MG/100 ML BAG 100 MG IVPB ×3 (05:34→22:19)
[2024-11-12] MEDS: VANCOMYCIN HCL 250 MG ORAL CAPSULE 500 MG PO ×3 (05:34→17:33)
[2024-11-12] MEDS: CENTRAL LINE FLUSH 10 ML IV PUSH ×3 (05:35→22:19)
[2024-11-12 08:00] VITALS: PULSE 86; RESP 20; O2SAT 93
--- NOTE | 2024-11-12 09:37 | P.PNIM_ITS ---
Progress Note: A&P Assessment and Plan (1) Hypertension: Code(s): I10 - Essential (primary) hypertension Status: Chronic (2) Elevated troponin: Code(s): R79.89 - Other specified abnormal findings of blood chemistry Status: Acute (3) Atrial flutter: Code(s): I48.92 - Unspecified atrial flutter Status: Acute (4) Pancolitis: Code(s): K52.9 - Noninfective gastroenteritis and colitis, unspecified Status: Acute (5) Acute kidney injury: Code(s): N17.9 - Acute kidney failure, unspecified Status: Acute (6) Metabolic acidosis: Code(s): E87.20 - Acidosis, unspecified Status: Acute (7) Acute hypoxic respiratory failure: Code(s): J96.01 - Acute respiratory failure with hypoxia Status: Acute (8) Pleural effusion: Code(s): J90 - Pleural effusion, not elsewhere classified Status: Acute (9) Clostridium difficile colitis: Code(s): A04.72 - Enterocolitis due to Clostridium difficile, not specified as recurrent Status: Acute Plan 78-year-old female with past medical history of hypertension presents the hospital with acute abdominal pain. Patient presented to the emergency room on 11/01/2021 and diagnosed with diverticulitis without abscess and sent home with p.o. antibiotics. Patient complains of explosive diarrhea and abdominal pain, denied nausea or vomiting. Lab work in the ED shows leukocytosis at 21.8 sodium of 123, chloride 91, carbon dioxide 17, anion gap of 15, BUN of 31, creatinine of 3.30 with baseline being 0.99, GFR 15, glucose 241, calcium 7.9, CT abdomen pelvis show Interval progression of radiographically uncomplicated selby colitis which could be infectious, inflammatory or less likely ischemic in etiology. Clostridium difficulty associated colitis: Patient is currently on p.o. vancomycin, IV Flagyl Zosyn discontinued Leukocytosis persistent, procalcitonin 1.8, however she remains afebrile and clinically she is improving. Will continue with current management appreciate any further ID recommendations. Rectal tube in place, less output. Acute kidney injury+ hyponatremia: Infection vs Contrast related injury vs prerenal Nephrology is following, right IJ Cecil dialysis catheter placed on 11/10/2024. Tolerated dialysis on 11/10/2024 and 11/11/2024. Has Holland catheter, monitor urine output, currently small output Hyponatremia, improving after dialysis. Holding [employer] statin lisinopril and Aldactone. AFib with RVR: Currently in sinus rhythm Continue tele monitoring Eliquis on hold since dialysis catheter placement. Considering temporary dialysis and unknown disposition, started heparin on 11/11/2024 Continue metoprolol 50 mg b.i.d. Digoxin has been stopped due to renal failure Acute hypoxic respiratory failure: Currently on 1 L, continue to attempt to wean, try to wean today to room air but she was saturating 90%. Denies shortness of breath although. Pulmonology consulted, less likely pneumonia, pneumonia specific antibiotics discontinued. Status post thoracentesis on 11/08/2024 showing exudative effusion, not infectious, macrophage predominant, likely related to colitis/fluid overload related to acute kidney injury. EZ Pap started for bilateral atelectasis. Do not see the ED PAP in her room on 11/12/2024, discussed with nursing to provide this. Patient is enthusiastic to keep using it. Echocardiogram on 10/08 demonstrating normal left ventricular function. Anxiety: Continue with home Xanax Hypertension: Blood pressure medication remains on hold Resume [employer] trazodone 50 mg p.o. q.h.s. Full code Saline lock IV Rectal tube in place Holland catheter in place Continue dialysis per Nephrology Heparin GTT Heart healthy, renal dialysis diet Disposition pending: Continue PT/OT evaluations and sessions Time Spent With Patient Time with patient: Greater than 35 minutes Subjective Date/time seen: 11/12/24 09:37 Interval history: No major acute overnight events. Denies abdominal pain, believes her distension is improved. Denies shortness of breath or cough. Only complains of dry mouth Review of Systems Review of Systems: All systems reviewed & are unremarkable except as noted in HPI and below (Subjective) Exam Const: General: comfortable and no acute distress HENMT: Mouth: Yes dry mucous membranes Eyes: Pupils: Equal, round and reactive pupils present Neck: Neck: supple Resp: Effort & Inspection: normal respiratory effort Other: Scant crackles Cardio: Rate: regular rate Rhythm: regular rhythm GI: Inspection: non-distended GI Palp: Yes Soft to palpation, No Tenderness to palpation present (GI) and No Guarding due to palpation present (GI) Neuro: Motor exam (neuro): 5/5 motor strength present throughout Extrem: General: no edema Objective Data Vital Signs Vital Signs: Vital Signs - 24 hr 11/11/24 09:45 11/11/24 10:00 11/11/24 10:00 Temperature Pulse Rate 69 70 73 Respiratory Rate Blood Pressure 115/58 L 120/59 L Pulse Oximetry Oxygen Delivery Oxygen Flow Rate 11/11/24 10:15 11/11/24 10:30 11/11/24 10:45 Temperature Pulse Rate 69 73 71 Respiratory Rate Blood Pressure 122/62 103/63 134/65 Pulse Oximetry Oxygen Delivery Oxygen Flow Rate 11/11/24 11:00 11/11/24 11:15 11/11/24 11:30 Temperature Pulse Rate 69 70 73 Respiratory Rate Blood Pressure 106/57 L 105/53 L 111/53 L Pulse Oximetry Oxygen Delivery Oxygen Flow Rate 11/11/24 11:45 11/11/24 11:51 11/11/24 12:00 Temperature 98.1 F Pulse Rate 68 66 Respiratory Rate 24 H Blood Pressure 89/53 L 133/69 Pulse Oximetry 100 91 Oxygen Delivery Nasal Cannula Oxygen Flow Rate 1 11/11/24 12:00 11/11/24 12:00 11/11/24 14:00 Temperature 97.0 F L Pulse Rate 55 L 68 74 Respiratory Rate 24 H Blood Pressure 149/45 H Pulse Oximetry 92 Oxygen Delivery Oxygen Flow Rate 11/11/24 15:51 11/11/24 16:00 11/11/24 16:00 Temperature 97.5 F L Pulse Rate 71 71 Respiratory Rate 24 H Blood Pressure 159/60 H Pulse Oximetry 90 91 Oxygen Delivery Nasal Cannula Oxygen Flow Rate 2 11/11/24 18:00 11/11/24 19:38 11/11/24 21:24 Temperature 97.8 F Pulse Rate 67 63 Respiratory Rate 24 H Blood Pressure 152/46 H Pulse Oximetry 93 93 Oxygen Delivery High Flow Nasal Cannula Oxygen Flow Rate 2 Intake/Output Intake/Output: Intake & Output 11/09/24 11/10/24 11/11/24 11/12/24 23:59 23:59 23:59 23:59 Intake Total 1104 466 2310 340 Output Total 700 1677 1900 300 Balance 640 -987 -140 40 Meds/Results Medications: Active Medications Generic Name Dose Route Start Last Admin Trade Name Freq PRN Reason Stop Dose Admin Acetaminophen 650 mg 11/06/24 12:18 11/09/24 13:38 Acetaminophen 325 Mg Tablet PO 650 mg Q4H PRN Administration Headache Alprazolam 0.25 mg 11/03/24 19:16 11/11/24 21:13 Alprazolam (*Crx) 0.25 Mg Tablet PO 0.25 mg QHS PRN Administration Anxiety Alprazolam 0.25 mg 11/11/24 06:34 11/11/24 08:16 Alprazolam (*Crx) 0.25 Mg Tablet PO 0.25 mg WITH DIALYSIS PRN Administration Anxiety Alteplase, Recombinant 2 mg 11/11/24 21:39 11/11/24 22:17 Alteplase 2 Mg Vial (Cathflo) IV PUSH 2 mg ONCE PRN Administration Line Occlusion Cyclosporine 1 drop 11/03/24 21:00 11/11/24 21:13 Cyclosporine 0.4 Ml Ophth Solution EACH EYE 1 drop Q12HR KEVIN Administration Heparin Sodium (Porcine) 5,000 units 11/11/24 16:29 Heparin Sodium 5,000 Units/Ml Vial IV PUSH PRN PRN aPTT less than 55 seconds Heparin Sodium (Porcine) 2,500 units 11/11/24 16:29 Heparin Sodium 5,000 Units/Ml Vial IV PUSH PRN PRN aPTT 55 - 70 seconds Metronidazole 500 mg in 100 mls @ 100 mls/hr 11/08/24 13:00 11/12/24 06:34 Flagyl 500 Mg/Iso Soln 100 Ml IVPB Infused Q8HR KEVIN Infusion Albumin Human 50 mls @ 999 mls/hr 11/10/24 09:33 Albutein IVPB 12/10/24 09:32 Q10M PRN HYPOTENSION Heparin Sodium/Dextrose 25,000 units in 250 mls @ 11 mls/hr 11/11/24 16:30 11/11/24 18:15 Heparin Sodium/D5w 100 Units/Ml IV CONT 1,100 units/hr .[id number] KEVIN 11 mls/hr Protocol Administration 1,100 UNITS/HR Metoprolol Tartrate 50 mg 11/08/24 09:00 11/11/24 17:18 Metoprolol Tartrate 50 Mg Tab PO 50 mg BID KEVIN Administration Sodium Chloride 10 ml 11/06/24 22:00 11/12/24 05:35 Central Line Flush IV PUSH 10 ml Q8HR KEVIN Administration Sodium Chloride 10 ml 11/06/24 14:29 Central Line Flush IV PUSH PRN PRN with TPN bag changes Sodium Chloride 20 ml 11/06/24 14:29 Central Line Flush IV PUSH PRN PRN after blood draws Trazodone HCl 50 mg 11/03/24 21:00 11/11/24 21:12 Trazodone Hcl 50 Mg Tablet PO 50 mg QHS KEVIN Administration Vancomycin HCl 500 mg 11/06/24 08:15 11/12/24 05:34 Vancomycin Hcl 250 Mg Oral Capsule PO 500 mg Q6HR KEVIN Administration Radiology Results: ITS Impressions Abdomen/Pelvis CT 11/04/24 12:36 IMPRESSION: 1. No evidence of bowel perforation. 2. Persistent severe pancolitis. 3. New small scattered ascites. 4. New small pleural effusions and significant bibasilar atelectasis. Renal Ultrasound 11/04/24 19:07 Impression: Simple appearing left renal cyst. No significant medical renal disease or obstruction Abdomen X-Ray 11/05/24 16:02 Impression: 1. Findings concerning for small bowel obstruction. CT is suggested Chest/Abdomen/Pelvis CT 11/05/24 17:04 IMPRESSION: 1. Diffuse colitis detailed above, correlate for underlying pseudomembranous colitis. No perforation or abscess. Follow-up recommended to assess. 2. CHF with superimposed probable bronchopneumonia. 3. Incidental findings above. Contrast-enhanced MRI recommended Head CT 11/06/24 12:46 Impression: 1.No acute intracranial abnormality. Thoracentesis Ultrasound 11/08/24 11:36 IMPRESSION: 1. Successful ultrasound-guided thoracentesis yielding 250 mL of yellow fluid. Chest X-Ray 11/11/24 08:57 IMPRESSION: 1. No significant change. 2. Pleural effusions with bibasilar atelectasis and/or airspace disease. 3. No pneumothorax. Labs Labs: Laboratory Results - last 24 hr 11/06/24 11/11/24 11/12/24 11:15 17:17 01:12 WBC RBC Hgb Hct MCV MCH MCHC RDW Plt Count MPV Immature Gran % (Auto) Neut % (Auto) Lymph % (Auto) Sherman % (Auto) Eos % (Auto) Baso % (Auto) Lymph # (Auto) Sherman # (Auto) Eos # (Auto) Baso # (Auto) Abs Immat Gran (auto) Absolute Neuts (auto) Absolute Nucleated RBC Band Neutrophils % Nucleated RBC % Platelet Estimate Anisocytosis Ovalocytes Ladora Cells Schistocytes PT 18.1 H INR 1.5 APTT 31.6 > 200.0 H* Sodium Potassium Chloride Carbon Dioxide Anion Gap BUN Creatinine Estim Creat Clear Calc Estimated GFR Glucose Calcium Phosphorus Total Bilirubin AST ALT Alkaline Phosphatase Total Protein Albumin RBC Adenosine Deaminase 407 11/12/24 11/12/24 02:21 02:22 WBC 24.8 H RBC 3.63 L Hgb 11.1 L Hct 32.9 L MCV 90.6 MCH 30.6 MCHC 33.7 RDW 13.7 Plt Count 435 H MPV 9.3 Immature Gran % (Auto) 3.9 H Neut % (Auto) 85.3 H Lymph % (Auto) 6.5 L Sherman % (Auto) 3.8 Eos % (Auto) 0.1 Baso % (Auto) 0.4 Lymph # (Auto) 1.60 Sherman # (Auto) 1.0 H Eos # (Auto) 0.0 Baso # (Auto) 0.1 Abs Immat Gran (auto) 0.97 H Absolute Neuts (auto) 21.1 H Absolute Nucleated RBC 0.000 Band Neutrophils % Not Reportable Nucleated RBC % 0.0 Platelet Estimate Adequate Anisocytosis 1+ Ovalocytes Occasional Ladora Cells 1+ Schistocytes None seen PT INR APTT 175.9 H* Sodium 128 L Potassium 3.4 Chloride 95 L Carbon Dioxide 25 Anion Gap 8 BUN 42 H D Creatinine 2.54 H Estim Creat Clear Calc 16 Estimated GFR 18 L Glucose 127 H Calcium 7.6 L Phosphorus 4.3 Total Bilirubin 0.4 AST 25 ALT 19 Alkaline Phosphatase 109 Total Protein 5.1 L Albumin 2.6 L RBC Adenosine Deaminase
[2024-11-12 09:43] VITALS: PULSE 63
[2024-11-12] MEDS: METOPROLOL TARTRATE 50 MG TAB PO ×2 (09:43→16:19)
[2024-11-12] MEDS: cycloSPORINE 0.4 ML OPHTH SOLUTION 1 DROP EACH EYE ×2 (09:44→21:41)
[2024-11-12 10:34] LABS: Partial Thromboplastin Time 88.4 Seconds (22.3-36.8)
--- NOTE | 2024-11-12 12:38 | PM.PNNEP ---
Progress Note: A&P Assessment and Plan (1) Acute kidney injury: Code(s): N17.9 - Acute kidney failure, unspecified Status: Acute Assessment and Plan: as noted by admission labs (creatinine of 3.03mg/dL) creatinine normal 2 days prior to admission baseline creatinine runs ~ 0.9 - 1.1mg/dL suspect multifactorial etiology: prerenal factors infection/early sepsis (diverticulitis/colitis) contrast exposure (CT of A/P on 11/01) relative hypotension on presentation JAMIE-I/diuretic use prior to admission urinary retention(?) - difficulty urinating on admission so gamble catheter placed other (?) off IVFs due to concerns for volume overload evaluation to date noted: renal ultrasound without obstruction urine electrolytes prerenal urine eosinophils negative CPK normal mild proteinuria holding lisinopril and spironolactone initiated on [facility]/HD on 11/10 HD yesterday hold HD today likely plan HD tomorrow follow trend of repeat labs and UOP (2) Clostridium difficile colitis: Code(s): A04.72 - Enterocolitis due to Clostridium difficile, not specified as recurrent Status: Acute Assessment and Plan: demonstrated by positive C. diff toxin assay also noted by CT imaging to date: CT of C/A/P (11/05): Diffuse colitis detailed above, correlate for underlying pseudomembranous colitis. No perforation or abscess CT of A/P (11/04): No evidence of bowel perforation; persistent severe pancolitis CT of A/P (11/03): Interval progression of radiographically uncomplicated selby colitis which could be infectious, inflammatory or less likely ischemic in etiology CT of A/P (11/01): Sigmoid diverticulitis. No perforation or abscess complicated by diverticulitis follow culture data follow trend of WBC on antibiotics Infectious Disease following (3) Acute hypoxic respiratory failure: Code(s): J96.01 - Acute respiratory failure with hypoxia Status: Acute Assessment and Plan: improvement noted multifactorial etiology: bilateral pleural effusions atelectasis fluid overload atrial flutter with rapid ventricular response pancolitis possible pneumonia (?) s/p thoracentesis (on 11/08) antibiotics for possible pneumonia Pulmonary following with recommendations noted fluid removal with dialysis as tolerated follow respiratory status (4) Metabolic acidosis: Code(s): E87.20 - Acidosis, unspecified Status: Acute Assessment and Plan: due to DONOVAN/ARF and GI issues/symptoms fluctuating lactic acid levels noted dialysis should help correct follow repeat labs (5) Hyponatremia: Code(s): E87.1 - Hypo-osmolality and hyponatremia Status: Acute Assessment and Plan: as noted on admission possible chronic component -- sodium seems to run 129 - 136mmol/L since 2021 presumably worsen by: DONOVAN/ARF prerenal factors pleural effusions possible pneumonia urinary retention mild improvement s/p IVF resuscitation should correct to some degree with dialysis follow trend of sodium (6) Atrial flutter: Code(s): I48.92 - Unspecified atrial flutter Status: Acute Assessment and Plan: as noted by events early on 11/05 rate control strategy Cardiology recommendations noted on metoprolol was on IV amiodarone (temporary measure) Echo noted (on 11/07) left ventricular systolic function is hyperdynamic, estimated at > 70% left ventricular diastolic function is grade I diastolic dysfunction no aortic valve stenosis mild tricuspid valve regurgitation on anticoagulation (7) Elevated troponin: Code(s): R79.89 - Other specified abnormal findings of blood chemistry Status: Acute Assessment and Plan: due to DONOVAN versus atrial fluttter with RVR trend noted Cardiology already following (8) Hypertension: Code(s): I10 - Essential (primary) hypertension Status: Chronic Assessment and Plan: reasonable control holding JAMIE-I and diuretics due to #1 follow trend of hemodynamics Will continue to follow. Subjective Date/time seen: 11/12/24 12:38 Interval history: Follow-up for acute kidney injury/acute renal failure. Tolerated dialysis treatment yesterday without any acute issues or problems; no complaints of abdominal pain at the time of my visit and thinks her abdominal distension is doing better as well; no other issues/events overnight or earlier this morning; no apparent distress voiced; still not making much urine. Exam Narrative: General: elderly but WD/WN female in NAD Heart: tachycardic, normal S1 and S2; no rub Lungs: coarse and decreased at bases Abdomen: soft, mild distension with +TTP, positive bowel sounds Extremities: no cyanosis or clubbing; no edema Skin: no rash Objective Data Vital Signs Vital Signs: Vital Signs Temp Pulse Resp BP Pulse Ox O2 Del Method O2 Flow Rate 11/12/24 12:35 93 High Flow Nasal Cannula 2 11/12/24 09:43 63 11/12/24 08:00 86 20 93 Room Air 11/11/24 21:24 93 High Flow Nasal Cannula 2 11/11/24 19:38 97.8 F 63 24 H 152/46 H 93 11/11/24 18:00 67 Intake/Output Intake/Output: Intake & Output 11/09/24 11/10/24 11/11/24 11/12/24 23:59 23:59 23:59 23:59 Intake Total 6510 369 3220 733.1 Output Total 700 1677 1900 300 Balance 640 -987 -140 433.1 Meds/Results Medications: Active Medications Generic Name Dose Route Start Last Admin Trade Name Freq PRN Reason Stop Dose Admin Acetaminophen 650 mg 11/06/24 12:18 11/09/24 13:38 Acetaminophen 325 Mg Tablet PO 650 mg Q4H PRN Administration Headache Alprazolam 0.25 mg 11/03/24 19:16 11/11/24 21:13 Alprazolam (*Crx) 0.25 Mg Tablet PO 0.25 mg QHS PRN Administration Anxiety Alprazolam 0.25 mg 11/11/24 06:34 11/11/24 08:16 Alprazolam (*Crx) 0.25 Mg Tablet PO 0.25 mg WITH DIALYSIS PRN Administration Anxiety Alteplase, Recombinant 2 mg 11/11/24 21:39 11/11/24 22:17 Alteplase 2 Mg Vial (Cathflo) IV PUSH 2 mg ONCE PRN Administration Line Occlusion Cyclosporine 1 drop 11/03/24 21:00 11/12/24 09:44 Cyclosporine 0.4 Ml Ophth Solution EACH EYE 1 drop Q12HR KEVIN Administration Heparin Sodium (Porcine) 5,000 units 11/11/24 16:29 Heparin Sodium 5,000 Units/Ml Vial IV PUSH PRN PRN aPTT less than 55 seconds Heparin Sodium (Porcine) 2,500 units 11/11/24 16:29 Heparin Sodium 5,000 Units/Ml Vial IV PUSH PRN PRN aPTT 55 - 70 seconds Metronidazole 500 mg in 100 mls @ 100 mls/hr 11/08/24 13:00 11/12/24 14:00 Flagyl 500 Mg/Iso Soln 100 Ml IVPB Infused Q8HR KEVIN Infusion Albumin Human 50 mls @ 999 mls/hr 11/10/24 09:33 Albutein IVPB 12/10/24 09:32 Q10M PRN HYPOTENSION Heparin Sodium/Dextrose 25,000 units in 250 mls @ 9 mls/hr 11/11/24 16:30 11/12/24 09:59 Heparin Sodium/D5w 100 Units/Ml IV CONT 900 units/hr .Q24H KEVIN 9 mls/hr Protocol Titration Metoprolol Tartrate 50 mg 11/08/24 09:00 11/12/24 16:19 Metoprolol Tartrate 50 Mg Tab PO 50 mg BID KEVIN Administration Sodium Chloride 10 ml 11/06/24 22:00 11/12/24 13:00 Central Line Flush IV PUSH 10 ml Q8HR KEVIN Administration Sodium Chloride 10 ml 11/06/24 14:29 Central Line Flush IV PUSH PRN PRN with TPN bag changes Sodium Chloride 20 ml 11/06/24 14:29 Central Line Flush IV PUSH PRN PRN after blood draws Trazodone HCl 50 mg 11/03/24 21:00 11/11/24 21:12 Trazodone Hcl 50 Mg Tablet PO 50 mg QHS KEVIN Administration Vancomycin HCl 500 mg 11/06/24 08:15 11/12/24 12:51 Vancomycin Hcl 250 Mg Oral Capsule PO 500 mg Q6HR KEVIN Administration Radiology Results: ITS Impressions Abdomen/Pelvis CT 11/04/24 12:36 IMPRESSION: 1. No evidence of bowel perforation. 2. Persistent severe pancolitis. 3. New small scattered ascites. 4. New small pleural effusions and significant bibasilar atelectasis. Renal Ultrasound 11/04/24 19:07 Impression: Simple appearing left renal cyst. No significant medical renal disease or obstruction Abdomen X-Ray 11/05/24 16:02 Impression: 1. Findings concerning for small bowel obstruction. CT is suggested Chest/Abdomen/Pelvis CT 11/05/24 17:04 IMPRESSION: 1. Diffuse colitis detailed above, correlate for underlying pseudomembranous colitis. No perforation or abscess. Follow-up recommended to assess. 2. CHF with superimposed probable bronchopneumonia. 3. Incidental findings above. Contrast-enhanced MRI recommended Head CT 11/06/24 12:46 Impression: 1.No acute intracranial abnormality. Thoracentesis Ultrasound 11/08/24 11:36 IMPRESSION: 1. Successful ultrasound-guided thoracentesis yielding 250 mL of yellow fluid. Chest X-Ray 11/11/24 08:57 IMPRESSION: 1. No significant change. 2. Pleural effusions with bibasilar atelectasis and/or airspace disease. 3. No pneumothorax. Labs Labs: Laboratory Tests 11/12/24 02:22 11/12/24 02:22 Calcium 7.6 L Phosphorus 4.3 Total Bilirubin 0.4 AST 25 ALT 19 Alkaline Phosphatase 109 Total Protein 5.1 L Albumin 2.6 L Microbiology 11/08/24 10:58 Thoracentesis Fluid Sterile Body Fluid Culture - Final 11/06/24 17:15 Stool Salmonella/Shigella Screen - Final 11/06/24 17:15 Stool Campylobacter Culture - Final 11/06/24 17:15 Stool Shiga Toxin (EIA) - Final
--- NOTE | 2024-11-12 12:38 | P.PNNP_ITS ---
Progress Note: A&P Assessment and Plan (1) Acute kidney injury: Code(s): N17.9 - Acute kidney failure, unspecified Status: Acute Assessment and Plan: * as noted by admission labs (creatinine of 3.03mg/dL) * creatinine normal 2 days prior to admission * baseline creatinine runs ~ 0.9 - 1.1mg/dL * suspect multifactorial etiology: * prerenal factors * infection/early sepsis (diverticulitis/colitis) * contrast exposure (CT of A/P on 11/01) * relative hypotension on presentation * JAMIE-I/diuretic use prior to admission * urinary retention(?) - difficulty urinating on admission so gamble catheter placed * other (?) * off IVFs due to concerns for volume overload * evaluation to date noted: * renal ultrasound without obstruction * urine electrolytes prerenal * urine eosinophils negative * CPK normal * mild proteinuria * holding lisinopril and spironolactone * initiated on [facility]/HD on 11/10 * HD yesterday * hold HD today * likely plan HD tomorrow * follow trend of repeat labs and UOP (2) Clostridium difficile colitis: Code(s): A04.72 - Enterocolitis due to Clostridium difficile, not specified as recurrent Status: Acute Assessment and Plan: * demonstrated by positive C. diff toxin assay * also noted by CT imaging to date: * CT of C/A/P (11/05): Diffuse colitis detailed above, correlate for underlying pseudomembranous colitis. No perforation or abscess * CT of A/P (11/04): No evidence of bowel perforation; persistent severe pancolitis * CT of A/P (11/03): Interval progression of radiographically uncomplicated selby colitis which could be infectious, inflammatory or less likely ischemic in etiology * CT of A/P (11/01): Sigmoid diverticulitis. No perforation or abscess * complicated by diverticulitis * follow culture data * follow trend of WBC * on antibiotics * Infectious Disease following (3) Acute hypoxic respiratory failure: Code(s): J96.01 - Acute respiratory failure with hypoxia Status: Acute Assessment and Plan: * improvement noted * multifactorial etiology: * bilateral pleural effusions * atelectasis * fluid overload * atrial flutter with rapid ventricular response * pancolitis * possible pneumonia (?) * s/p thoracentesis (on 11/08) * antibiotics for possible pneumonia * Pulmonary following with recommendations noted * fluid removal with dialysis as tolerated * follow respiratory status (4) Metabolic acidosis: Code(s): E87.20 - Acidosis, unspecified Status: Acute Assessment and Plan: * due to DONOVAN/ARF and GI issues/symptoms * fluctuating lactic acid levels noted * dialysis should help correct * follow repeat labs (5) Hyponatremia: Code(s): E87.1 - Hypo-osmolality and hyponatremia Status: Acute Assessment and Plan: * as noted on admission * possible chronic component -- sodium seems to run 129 - 136mmol/L since 2021 * presumably worsen by: * DONOVAN/ARF * prerenal factors * pleural effusions * possible pneumonia * urinary retention * mild improvement s/p IVF resuscitation * should correct to some degree with dialysis * follow trend of sodium (6) Atrial flutter: Code(s): I48.92 - Unspecified atrial flutter Status: Acute Assessment and Plan: * as noted by events early on 11/05 * rate control strategy * Cardiology recommendations noted * on metoprolol * was on IV amiodarone (temporary measure) * Echo noted (on 11/07) * left ventricular systolic function is hyperdynamic, estimated at > 70% * left ventricular diastolic function is grade I diastolic dysfunction * no aortic valve stenosis * mild tricuspid valve regurgitation * on anticoagulation (7) Elevated troponin: Code(s): R79.89 - Other specified abnormal findings of blood chemistry Status: Acute Assessment and Plan: * due to DONOVAN versus atrial fluttter with RVR * trend noted * Cardiology already following (8) Hypertension: Code(s): I10 - Essential (primary) hypertension Status: Chronic Assessment and Plan: * reasonable control * holding JAMIE-I and diuretics due to #1 * follow trend of hemodynamics Will continue to follow. L Subjective Date/time seen: 11/12/24 12:38 Interval history: Follow-up for acute kidney injury/acute renal failure. Tolerated dialysis treatment yesterday without any acute issues or problems; no complaints of abdominal pain at the time of my visit and thinks her abdominal distension is doing better as well; no other issues/events overnight or earlier this morning; no apparent distress voiced; still not making much urine. Exam 2 Narrative: General: elderly but WD/WN female in NAD Heart: tachycardic, normal S1 and S2; no rub Lungs: coarse and decreased at bases Abdomen: soft, mild distension with +TTP, positive bowel sounds Extremities: no cyanosis or clubbing; no edema Skin: no rash Objective Data Vital Signs Vital Signs: Vital Signs Temp Pulse Resp BP Pulse Ox O2 Del Method O2 Flow Rate 11/12/24 12:35 93 High Flow Nasal Cannula 2 11/12/24 09:43 63 11/12/24 08:00 86 20 93 Room Air 11/11/24 21:24 93 High Flow Nasal Cannula 2 11/11/24 19:38 97.8 F 63 24 H 152/46 H 93 11/11/24 18:00 67 Intake/Output Intake/Output: Intake & Output 11/09/24 11/10/24 11/11/24 11/12/24 23:59 23:59 23:59 23:59 Intake Total 9844 724 5472 733.1 Output Total 700 1677 1900 300 Balance 640 -987 -140 433.1 Meds/Results Medications: Active Medications Generic Name Dose Route Start Last Admin Trade Name Freq PRN Reason Stop Dose Admin Acetaminophen 650 mg 11/06/24 12:18 11/09/24 13:38 Acetaminophen 325 Mg Tablet PO 650 mg Q4H PRN Administration Headache Alprazolam 0.25 mg 11/03/24 19:16 11/11/24 21:13 Alprazolam (*Crx) 0.25 Mg Tablet PO 0.25 mg QHS PRN Administration Anxiety Alprazolam 0.25 mg 11/11/24 06:34 11/11/24 08:16 Alprazolam (*Crx) 0.25 Mg Tablet PO 0.25 mg WITH DIALYSIS PRN Administration Anxiety Alteplase, Recombinant 2 mg 11/11/24 21:39 11/11/24 22:17 Alteplase 2 Mg Vial (Cathflo) IV PUSH 2 mg ONCE PRN Administration Line Occlusion Cyclosporine 1 drop 11/03/24 21:00 11/12/24 09:44 Cyclosporine 0.4 Ml Ophth Solution EACH EYE 1 drop Q12HR KEVIN Administration Heparin Sodium (Porcine) 5,000 units 11/11/24 16:29 Heparin Sodium 5,000 Units/Ml Vial IV PUSH PRN PRN aPTT less than 55 seconds Heparin Sodium (Porcine) 2,500 units 11/11/24 16:29 Heparin Sodium 5,000 Units/Ml Vial IV PUSH PRN PRN aPTT 55 - 70 seconds Metronidazole 500 mg in 100 mls @ 100 mls/hr 11/08/24 13:00 11/12/24 14:00 Flagyl 500 Mg/Iso Soln 100 Ml IVPB Infused Q8HR KEVIN Infusion Albumin Human 50 mls @ 999 mls/hr 11/10/24 09:33 Albutein IVPB 12/10/24 09:32 Q10M PRN HYPOTENSION Heparin Sodium/Dextrose 25,000 units in 250 mls @ 9 mls/hr 11/11/24 16:30 11/12/24 09:59 Heparin Sodium/D5w 100 Units/Ml IV CONT 900 units/hr .Q24H KEVIN 9 mls/hr Protocol Titration Metoprolol Tartrate 50 mg 11/08/24 09:00 11/12/24 16:19 Metoprolol Tartrate 50 Mg Tab PO 50 mg BID KEVIN Administration Sodium Chloride 10 ml 11/06/24 22:00 11/12/24 13:00 Central Line Flush IV PUSH 10 ml Q8HR KEVIN Administration Sodium Chloride 10 ml 11/06/24 14:29 Central Line Flush IV PUSH PRN PRN with TPN bag changes Sodium Chloride 20 ml 11/06/24 14:29 Central Line Flush IV PUSH PRN PRN after blood draws Trazodone HCl 50 mg 11/03/24 21:00 11/11/24 21:12 Trazodone Hcl 50 Mg Tablet PO 50 mg QHS KEIVN Administration Vancomycin HCl 500 mg 11/06/24 08:15 11/12/24 12:51 Vancomycin Hcl 250 Mg Oral Capsule PO 500 mg Q6HR KEVIN Administration Radiology Results: ITS Impressions Abdomen/Pelvis CT 11/04/24 12:36 IMPRESSION: 1. No evidence of bowel perforation. 2. Persistent severe pancolitis. 3. New small scattered ascites. 4. New small pleural effusions and significant bibasilar atelectasis. Renal Ultrasound 11/04/24 19:07 Impression: Simple appearing left renal cyst. No significant medical renal disease or obstruction Abdomen X-Ray 11/05/24 16:02 Impression: 1. Findings concerning for small bowel obstruction. CT is suggested Chest/Abdomen/Pelvis CT 11/05/24 17:04 IMPRESSION: 1. Diffuse colitis detailed above, correlate for underlying pseudomembranous colitis. No perforation or abscess. Follow-up recommended to assess. 2. CHF with superimposed probable bronchopneumonia. 3. Incidental findings above. Contrast-enhanced MRI recommended Head CT 11/06/24 12:46 Impression: 1.No acute intracranial abnormality. Thoracentesis Ultrasound 11/08/24 11:36 IMPRESSION: 1. Successful ultrasound-guided thoracentesis yielding 250 mL of yellow fluid. Chest X-Ray 11/11/24 08:57 IMPRESSION: 1. No significant change. 2. Pleural effusions with bibasilar atelectasis and/or airspace disease. 3. No pneumothorax. Labs Labs: Laboratory Tests 11/12/24 02:22 11/12/24 02:22 Calcium 7.6 L Phosphorus 4.3 Total Bilirubin 0.4 AST 25 ALT 19 Alkaline Phosphatase 109 Total Protein 5.1 L Albumin 2.6 L Microbiology 11/08/24 10:58 Thoracentesis Fluid Sterile Body Fluid Culture - Final 11/06/24 17:15 Stool Salmonella/Shigella Screen - Final 11/06/24 17:15 Stool Campylobacter Culture - Final 11/06/24 17:15 Stool Shiga Toxin (EIA) - Final
[2024-11-12 12:45] VITALS: O2SAT 93
[2024-11-12 14:08] LABS: Osmolality, Serum 292 mOsmol/kg (280-301)
[2024-11-12 16:00] VITALS: BP 153/49; PULSE 62; RESP 20; TEMP 36.3; O2SAT 92
[2024-11-12 16:19] VITALS: PULSE 62
[2024-11-12 16:52] LABS: Partial Thromboplastin Time 108.4 Seconds (22.3-36.8)
[2024-11-12] MEDS: HEPARIN SOD/D5W 100 UNITS/ML 25,000 UNITS/250 ML BAG 8 UNITS IV CONT (17:26)
[2024-11-12 20:53] VITALS: BP 143/58; PULSE 58; RESP 16; TEMP 36.4; O2SAT 90
[2024-11-12 22:42] LABS: Partial Thromboplastin Time 84.1 Seconds (22.3-36.8)
[2024-11-13] VITALS (7 sets, daily range): BP systolic 122–148; BP diastolic 46–68; PULSE 57–62; RESP 16–18; TEMP 36.4–36.8; O2SAT 91–93
[2024-11-13] MEDS: VANCOMYCIN HCL 250 MG ORAL CAPSULE 500 MG PO ×4 (01:07→17:56)
[2024-11-13] MEDS: ALPRAZolam (*CRX) 0.25 MG TABLET PO (01:25)
[2024-11-13 04:52] LABS: Hematocrit 31.8 % (37.0-47.0); Hemoglobin 10.7 g/dL (12.0-15.0); Immature Granulocyte Percent A 3.5 % (0-0.5); Lymphocytes Absolute Auto 1.48 K/mm3 (0.9-3.2); Mean Corpuscular HGB Conc 33.6 g/dl (32-36); Mean Corpuscular Hemoglobin 30.7 pg (26-34); Mean Corpuscular Volume 91.1 fl (80-100); Nucleated Red Blood Cells Absolute Auto 0.000 K/mm3 (0.0-0.012); Nucleated Red Blood Cells Perc 0.0 % (0.0-0.2); Platelet Count Result 406 k/mm3 (150-375); Red Blood Count 3.49 M/mm3 (4.2-5.4); White Blood Count 25.1 K/mm3 (4.5-10.0)
[2024-11-13 05:19] LABS: Alanine Aminotransferase 16 U/L (6-35); Albumin Level 2.5 g/dL (3.5-5.1); Alkaline Phosphatase 99 U/L (38-126); Anion Gap 8 mmol/L (4-12); Aspartate Amino Transferase 24 U/L (14-36); Bilirubin,Total 0.3 mg/dL (0.2-1.3); Blood Urea Nitrogen 53 mg/dL (7-17); Calcium 7.6 mg/dL (8.4-10.2); Carbon Dioxide 22 mmol/L (22-30); Chloride 91 mmol/L (98-107); Estimated CRCL calculation 16 ml/min; Estimated Glomerular Filt Rate 18; Glucose 117 mg/dL (65-110); Potassium 3.1 mmol/L (3.4-5.0); Sodium 121 mmol/L (137-145); Total Protein 4.9 g/dL (6.3-8.2)
[2024-11-13 05:34] LABS: Partial Thromboplastin Time 112.6 Seconds (22.3-36.8)
[2024-11-13] MEDS: CENTRAL LINE FLUSH 10 ML IV PUSH ×3 (06:09→21:23)
[2024-11-13] MEDS: metroNIDAZOLE 500 MG/ISO 100ML 500 MG/100 ML BAG 100 MG IVPB ×3 (06:09→21:22)
[2024-11-13 07:38] LABS: Magnesium 1.6 mg/dL (1.6-2.3)
--- NOTE | 2024-11-13 08:14 | PM.IMPN ---
Progress Note: A&P Assessment and Plan (1) Hypertension: Code(s): I10 - Essential (primary) hypertension Status: Chronic (2) Elevated troponin: Code(s): R79.89 - Other specified abnormal findings of blood chemistry Status: Acute (3) Atrial flutter: Code(s): I48.92 - Unspecified atrial flutter Status: Acute (4) Pancolitis: Code(s): K52.9 - Noninfective gastroenteritis and colitis, unspecified Status: Acute (5) Acute kidney injury: Code(s): N17.9 - Acute kidney failure, unspecified Status: Acute (6) Metabolic acidosis: Code(s): E87.20 - Acidosis, unspecified Status: Acute (7) Acute hypoxic respiratory failure: Code(s): J96.01 - Acute respiratory failure with hypoxia Status: Acute (8) Pleural effusion: Code(s): J90 - Pleural effusion, not elsewhere classified Status: Acute (9) Clostridium difficile colitis: Code(s): A04.72 - Enterocolitis due to Clostridium difficile, not specified as recurrent Status: Acute Plan 78-year-old female with past medical history of hypertension, class 1 obesity, presents the hospital with acute abdominal pain. Patient presented to the emergency room on 11/01/2021 and diagnosed with diverticulitis without abscess and sent home with p.o. antibiotics. Patient complains of explosive diarrhea and abdominal pain, denied nausea or vomiting. Lab work in the ED shows leukocytosis at 21.8 sodium of 123, chloride 91, carbon dioxide 17, anion gap of 15, BUN of 31, creatinine of 3.30 with baseline being 0.99, GFR 15, glucose 241, calcium 7.9, CT abdomen pelvis show Interval progression of radiographically uncomplicated selby colitis which could be infectious, inflammatory or less likely ischemic in etiology. Clostridium difficulty associated colitis: Started vancomycin 500 mg p.o. q.6 hours on 11/06/2024, metronidazole 500 mg IV q.8 hours on 11/08/2024 Appreciate ID recommendations Zosyn discontinued Leukocytosis persistent, procalcitonin 1.8, however she remains afebrile and clinically she is improving. Will continue with current management appreciate any further ID recommendations. Patient reporting no abdominal pain but feels as if she is having diarrhea. Rectal tube bag only has about 20 cc of liquid green stool. Unclear when the bag was changed or home which has been emptied. I spoke with the patient's nurse and ROLL FORMING SUPERVISOR and they will update me later today about the output. Acute kidney injury/hyponatremia/metabolic acidosis: Infection vs Contrast related injury vs prerenal. Creatinine normal 2 days prior to admission Nephrology is following, right IJ Cecil dialysis catheter placed on 11/10/2024. Dialysis started on 11/10/2024. Again on 11/11/2024, likely dialysis today. Renal ultrasound without obstruction, urine electrolytes pre renal, urine eosinophils negative, CPK normal, mild proteinuria Holding lisinopril and spironolactone Holland catheter in place Follow renal function labs and urine output Disposition pending. Atrial flutter/hypertension/hyperlipidemia: New diagnosis, now converted to sinus rhythm. Continue metoprolol 50 mg p.o. b.i.d.. Digoxin stopped due to renal failure Keep potassium greater than 4 magnesium greater than 2, keep renal failure in consideration. Lisinopril and spironolactone on hold. Amlodipine on hold to allow titration of beta-christine COUNT ROOM CLERK simvastatin on hold. Continue monitoring blood pressure. on telemetry. Was started on Eliquis, temporarily discontinued and replaced with heparin GTT due to unknown disposition of dialysis and return of renal function. Acute hypoxic respiratory failure: Pulmonology consulted. Less likely pneumonia, pneumonia specific antibiotics discontinued. Status post thoracentesis on 11/08/2024 showing exudative effusion, not infectious, macrophage predominant, likely related to colitis/fluid overload related to acute kidney injury. Echocardiogram on 10/08 demonstrating normal left ventricular function. EZ Pap started for bilateral atelectasis. She is not mobile. Encouraged to work with therapy. Weaned to room air on 11/13/2024 Anxiety: Continue with home Xanax Resume COUNT ROOM CLERK trazodone 50 mg p.o. q.h.s. Full code Saline lock IV Rectal tube in place Holland catheter in place Continue dialysis per Nephrology Heparin GTT Heart healthy, renal dialysis diet Disposition pending: Continue PT/OT evaluations and sessions Time Spent With Patient Time with patient: Greater than 35 minutes Subjective Date/time seen: 11/13/24 08:14 Interval history: No major acute overnight events. Believe she is doing well overall. No abdominal pain. Feels as if she is having diarrhea through her rectal tube. Unclear how much. Denies cough or shortness of breath. Review of Systems Review of Systems: All systems reviewed & are unremarkable except as noted in HPI and below (Subjective) Exam Const: General: comfortable and no acute distress HENMT: Mouth: Yes dry mucous membranes Eyes: Pupils: Equal, round and reactive pupils present Neck: Neck: supple Resp: Effort & Inspection: normal respiratory effort Other: Scant crackles Cardio: Rate: regular rate Rhythm: regular rhythm GI: GI Palp: No Tenderness to palpation present (GI) and No Guarding due to palpation present (GI) Other: Mild distension but soft Neuro: Motor exam (neuro): 5/5 motor strength present throughout Extrem: Other: Trace pitting edema bilateral lower extremities Objective Data Vital Signs Vital Signs: Vital Signs - 24 hr 11/12/24 09:43 11/12/24 12:45 11/12/24 16:00 Temperature 97.4 F L Pulse Rate 63 62 Respiratory Rate 20 Blood Pressure 153/49 H Pulse Oximetry 93 92 Oxygen Delivery High Flow Nasal Cannula Oxygen Flow Rate 2 Fraction of Inspired Oxygen 11/12/24 16:19 11/12/24 20:00 11/12/24 20:53 Temperature 97.5 F L Pulse Rate 62 58 L Respiratory Rate 16 Blood Pressure 143/58 H Pulse Oximetry 90 Oxygen Delivery Room Air Oxygen Flow Rate Fraction of Inspired Oxygen 70 11/13/24 04:22 Temperature 97.6 F Pulse Rate 57 L Respiratory Rate 16 Blood Pressure 122/68 Pulse Oximetry 91 Oxygen Delivery Oxygen Flow Rate Fraction of Inspired Oxygen Intake/Output Intake/Output: Intake & Output 11/10/24 11/11/24 11/12/24 11/13/24 23:59 23:59 23:59 23:59 Intake Total 690 1760 1500.2 598.9 Output Total 1677 1900 500 150 Balance -987 -140 1000.2 448.9 Meds/Results Medications: Active Medications Generic Name Dose Route Start Last Admin Trade Name Freq PRN Reason Stop Dose Admin Acetaminophen 650 mg 11/06/24 12:18 11/09/24 13:38 Acetaminophen 325 Mg Tablet PO 650 mg Q4H PRN Administration Headache Alprazolam 0.25 mg 11/03/24 19:16 11/13/24 01:25 Alprazolam (*Crx) 0.25 Mg Tablet PO 0.25 mg QHS PRN Administration Anxiety Alprazolam 0.25 mg 11/11/24 06:34 11/11/24 08:16 Alprazolam (*Crx) 0.25 Mg Tablet PO 0.25 mg WITH DIALYSIS PRN Administration Anxiety Alteplase, Recombinant 2 mg 11/11/24 21:39 11/11/24 22:17 Alteplase 2 Mg Vial (Cathflo) IV PUSH 2 mg ONCE PRN Administration Line Occlusion Cyclosporine 1 drop 11/03/24 21:00 11/12/24 21:41 Cyclosporine 0.4 Ml Ophth Solution EACH EYE 1 drop Q12HR KEVIN Administration Epoetin Jarred-epbx 10,000 units 11/13/24 17:48 Epoetin Jarred-Epbx 10,000 Units/Ml Vial IV PUSH 11/13/24 17:49 ONCE ONE Heparin Sodium (Porcine) 5,000 units 11/11/24 16:29 Heparin Sodium 5,000 Units/Ml Vial IV PUSH PRN PRN aPTT less than 55 seconds Heparin Sodium (Porcine) 2,500 units 11/11/24 16:29 Heparin Sodium 5,000 Units/Ml Vial IV PUSH PRN PRN aPTT 55 - 70 seconds Metronidazole 500 mg in 100 mls @ 100 mls/hr 11/08/24 13:00 11/13/24 06:09 Flagyl 500 Mg/Iso Soln 100 Ml IVPB 100 mls/hr Q8HR KEVIN Administration Albumin Human 50 mls @ 999 mls/hr 11/10/24 09:33 Albutein IVPB 12/10/24 09:32 Q10M PRN HYPOTENSION Heparin Sodium/Dextrose 25,000 units in 250 mls @ 7 mls/hr 11/11/24 16:30 11/13/24 05:48 Heparin Sodium/D5w 100 Units/Ml IV CONT 700 units/hr .Q24H KEVIN 7 mls/hr Protocol Titration 700 UNITS/HR Metoprolol Tartrate 50 mg 11/08/24 09:00 11/12/24 16:19 Metoprolol Tartrate 50 Mg Tab PO 50 mg BID KEVIN Administration Miscellaneous Information 1 each 11/13/24 00:01 Xanax Needs To Be Renewed Or It Will Automatically Discontinue. XX 12/13/24 00:00 CLARIFY KEVIN Sodium Chloride 10 ml 11/06/24 22:00 11/13/24 06:09 Central Line Flush IV PUSH 10 ml Q8HR KEVIN Administration Sodium Chloride 10 ml 11/06/24 14:29 Central Line Flush IV PUSH PRN PRN with TPN bag changes Sodium Chloride 20 ml 11/06/24 14:29 Central Line Flush IV PUSH PRN PRN after blood draws Trazodone HCl 50 mg 11/03/24 21:00 11/12/24 21:41 Trazodone Hcl 50 Mg Tablet PO 50 mg QHS KEVIN Administration Vancomycin HCl 500 mg 11/06/24 08:15 11/13/24 06:09 Vancomycin Hcl 250 Mg Oral Capsule PO 500 mg Q6HR KEVIN Administration Radiology Results: ITS Impressions Abdomen/Pelvis CT 11/04/24 12:36 IMPRESSION: 1. No evidence of bowel perforation. 2. Persistent severe pancolitis. 3. New small scattered ascites. 4. New small pleural effusions and significant bibasilar atelectasis. Renal Ultrasound 11/04/24 19:07 Impression: Simple appearing left renal cyst. No significant medical renal disease or obstruction Abdomen X-Ray 11/05/24 16:02 Impression: 1. Findings concerning for small bowel obstruction. CT is suggested Chest/Abdomen/Pelvis CT 11/05/24 17:04 IMPRESSION: 1. Diffuse colitis detailed above, correlate for underlying pseudomembranous colitis. No perforation or abscess. Follow-up recommended to assess. 2. CHF with superimposed probable bronchopneumonia. 3. Incidental findings above. Contrast-enhanced MRI recommended Head CT 11/06/24 12:46 Impression: 1.No acute intracranial abnormality. Thoracentesis Ultrasound 11/08/24 11:36 IMPRESSION: 1. Successful ultrasound-guided thoracentesis yielding 250 mL of yellow fluid. Chest X-Ray 11/11/24 08:57 IMPRESSION: 1. No significant change. 2. Pleural effusions with bibasilar atelectasis and/or airspace disease. 3. No pneumothorax. Labs Labs: Laboratory Results - last 24 hr 11/05/24 11/12/24 11/12/24 04:18 09:59 16:13 WBC RBC Hgb Hct MCV MCH MCHC RDW Plt Count MPV Immature Gran % (Auto) Neut % (Auto) Lymph % (Auto) [place] % (Auto) Eos % (Auto) Baso % (Auto) Lymph # (Auto) [place] # (Auto) Eos # (Auto) Baso # (Auto) Abs Immat Gran (auto) Absolute Neuts (auto) Absolute Nucleated RBC Nucleated RBC % APTT 88.4 H 108.4 H Sodium Potassium Chloride Carbon Dioxide Anion Gap BUN Creatinine Estim Creat Clear Calc Estimated GFR Glucose Serum Osmolality 292 Calcium Phosphorus Magnesium Total Bilirubin AST ALT Alkaline Phosphatase Total Protein Albumin 11/12/24 11/13/24 11/13/24 22:17 04:45 04:46 WBC 25.1 H RBC 3.49 L Hgb 10.7 L Hct 31.8 L MCV 91.1 MCH 30.7 MCHC 33.6 RDW 13.5 Plt Count 406 H MPV 9.1 Immature Gran % (Auto) 3.5 H Neut % (Auto) 85.8 H Lymph % (Auto) 5.9 L [place] % (Auto) 4.2 Eos % (Auto) 0.2 Baso % (Auto) 0.4 Lymph # (Auto) 1.48 [place] # (Auto) 1.1 H Eos # (Auto) 0.1 Baso # (Auto) 0.1 Abs Immat Gran (auto) 0.89 H Absolute Neuts (auto) 21.5 H Absolute Nucleated RBC 0.000 Nucleated RBC % 0.0 APTT 84.1 H 112.6 H Sodium 121 L Potassium 3.1 L Chloride 91 L Carbon Dioxide 22 Anion Gap 8 BUN 53 H D Creatinine 2.58 H Estim Creat Clear Calc 16 Estimated GFR 18 L Glucose 117 H Serum Osmolality Calcium 7.6 L Phosphorus 4.2 Magnesium 1.6 Total Bilirubin 0.3 AST 24 ALT 16 Alkaline Phosphatase 99 Total Protein 4.9 L Albumin 2.5 L
[2024-11-13] MEDS: POTASSIUM CHLORIDE 20 MEQ ER TABLET 40 MEQ PO (09:20)
[2024-11-13] MEDS: METOPROLOL TARTRATE 50 MG TAB PO ×2 (09:20→17:55)
[2024-11-13] MEDS: cycloSPORINE 0.4 ML OPHTH SOLUTION 1 DROP EACH EYE ×2 (09:20→21:22)
--- NOTE | 2024-11-13 11:04 | P.PNNP_ITS ---
Progress Note: A&P Assessment and Plan (1) Acute kidney injury: Code(s): N17.9 - Acute kidney failure, unspecified Status: Acute Assessment and Plan: * as noted by admission labs (creatinine of 3.03mg/dL) * creatinine normal 2 days prior to admission * baseline creatinine runs ~ 0.9 - 1.1mg/dL * suspect multifactorial etiology: * prerenal factors * infection/early sepsis (diverticulitis/colitis) * contrast exposure (CT of A/P on 11/01) * relative hypotension on presentation * JAMIE-I/diuretic use prior to admission * urinary retention(?) - difficulty urinating on admission so gamble catheter placed * other (?) * off IVFs due to concerns for volume overload * evaluation to date noted: * renal ultrasound without obstruction * urine electrolytes prerenal * urine eosinophils negative * CPK normal * mild proteinuria * holding lisinopril and spironolactone * initiated on SCREEN 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 diff toxin assay * also noted by CT imaging to date: * CT of C/A/P (11/05): Diffuse colitis detailed above, correlate for underlying pseudomembranous colitis. No perforation or abscess * CT of A/P (11/04): No evidence of bowel perforation; persistent severe pancolitis * CT of A/P (11/03): Interval progression of radiographically uncomplicated selby colitis which could be infectious, inflammatory or less likely ischemic in etiology * CT of A/P (11/01): Sigmoid diverticulitis. No perforation or abscess * complicated by diverticulitis * follow culture data * follow trend of WBC * on antibiotics * Infectious Disease following (3) Acute hypoxic respiratory failure: Code(s): J96.01 - Acute respiratory failure with hypoxia Status: Acute Assessment and Plan: * improvement noted * multifactorial etiology: * bilateral pleural effusions * atelectasis * fluid overload * atrial flutter with rapid ventricular response * pancolitis * possible pneumonia (?) * s/p thoracentesis (on 11/08) * Pulmonary following with recommendations noted * fluid removal with dialysis as tolerated * follow respiratory status (4) Metabolic acidosis: Code(s): E87.20 - Acidosis, unspecified Status: Acute Assessment and Plan: * due to DONOVAN/ARF and GI issues/symptoms * fluctuating lactic acid levels noted * dialysis should help correct * follow repeat labs (5) Hyponatremia: Code(s): E87.1 - Hypo-osmolality and hyponatremia Status: Acute Assessment and Plan: * as noted on admission * possible chronic component -- sodium seems to run 129 - 136mmol/L since 2021 * presumably worsen by: * DONOVAN/ARF * prerenal factors * pleural effusions * possible pneumonia * urinary retention * mild improvement s/p IVF resuscitation * should correct to some degree with dialysis * follow trend of sodium (6) Atrial flutter: Code(s): I48.92 - Unspecified atrial flutter Status: Acute Assessment and Plan: * as noted by events early on 11/05 * rate control strategy * Cardiology recommendations noted * on metoprolol * was on IV amiodarone (temporary measure) * Echo noted (on 11/07) * left ventricular systolic function is hyperdynamic, estimated at > 70% * left ventricular diastolic function is grade I diastolic dysfunction * no aortic valve stenosis * mild tricuspid valve regurgitation * on anticoagulation (7) Elevated troponin: Code(s): R79.89 - Other specified abnormal findings of blood chemistry Status: Acute Assessment and Plan: * due to DONOVAN versus atrial fluttter with RVR * trend noted * Cardiology already following (8) Hypertension: Code(s): I10 - Essential (primary) hypertension Status: Chronic Assessment and Plan: * reasonable control * holding JAMIE-I and diuretics due to #1 * follow trend of hemodynamics Will continue to follow. L Subjective Date/time seen: 11/13/24 11:04 Interval history: Follow-up for acute kidney injury/acute renal failure. Renal function/creatinine about the same in the last 24 hours but still not making much urine; reports no abdominal pain at the time of my visit; denies shortness of breath but family at bedside concerned by significant swelling/edema present. Exam 2 Narrative: General: elderly but WD/WN female in NAD Heart: tachycardic, normal S1 and S2; no rub Lungs: coarse and decreased at bases Abdomen: soft, nontender, positive bowel sounds Extremities: no cyanosis or clubbing; no edema Skin: no nodules Objective Data Vital Signs Vital Signs: Vital Signs Temp Pulse Resp BP Pulse Ox O2 Del Method FiO2 11/13/24 09:20 Room Air 11/13/24 09:20 61 11/13/24 09:19 61 148/46 H 91 11/13/24 04:22 97.6 F 57 L 16 122/68 91 11/12/24 20:53 97.5 F L 58 L 16 143/58 H 90 11/12/24 20:00 Room Air 70 Intake/Output Intake/Output: Intake & Output 11/10/24 11/11/24 11/12/24 11/13/24 23:59 23:59 23:59 23:59 Intake Total 690 1760 1500.2 1205.8 Output Total 1677 1900 500 475 Balance -987 -140 1000.2 730.8 Meds/Results Medications: Active Medications Generic Name Dose Route Start Last Admin Trade Name Andreaq PRN Reason Stop Dose Admin Acetaminophen 650 mg 11/06/24 12:18 11/09/24 13:38 Acetaminophen 325 Mg Tablet PO 650 mg Q4H PRN Administration Headache Alprazolam 0.25 mg 11/03/24 19:16 11/13/24 01:25 Alprazolam (*Crx) 0.25 Mg Tablet PO 0.25 mg QHS PRN Administration Anxiety Alprazolam 0.25 mg 11/11/24 06:34 11/11/24 08:16 Alprazolam (*Crx) 0.25 Mg Tablet PO 0.25 mg WITH DIALYSIS PRN Administration Anxiety Alteplase, Recombinant 2 mg 11/11/24 21:39 11/11/24 22:17 Alteplase 2 Mg Vial (Cathflo) IV PUSH 2 mg ONCE PRN Administration Line Occlusion Cyclosporine 1 drop 11/03/24 21:00 11/13/24 09:20 Cyclosporine 0.4 Ml Ophth Solution EACH EYE 1 drop Q12HR KEVIN Administration Heparin Sodium (Porcine) 5,000 units 11/11/24 16:29 Heparin Sodium 5,000 Units/Ml Vial IV PUSH PRN PRN aPTT less than 55 seconds Heparin Sodium (Porcine) 2,500 units 11/11/24 16:29 Heparin Sodium 5,000 Units/Ml Vial IV PUSH PRN PRN aPTT 55 - 70 seconds Metronidazole 500 mg in 100 mls @ 100 mls/hr 11/08/24 13:00 11/13/24 15:47 Flagyl 500 Mg/Iso Soln 100 Ml IVPB Infused Q8HR KEVIN Infusion Albumin Human 50 mls @ 999 mls/hr 11/10/24 09:33 Albutein IVPB 12/10/24 09:32 Q10M PRN HYPOTENSION Heparin Sodium/Dextrose 25,000 units in 250 mls @ 7 mls/hr 11/11/24 16:30 11/13/24 12:30 Heparin Sodium/D5w 100 Units/Ml IV CONT 700 units/hr .Q24H KEVIN 7 mls/hr Protocol Titration 700 UNITS/HR Metoprolol Tartrate 50 mg 11/08/24 09:00 11/13/24 17:55 Metoprolol Tartrate 50 Mg Tab PO 50 mg BID KEVIN Administration Miscellaneous Information 1 each 11/13/24 00:01 Xanax Needs To Be Renewed Or It Will Automatically Discontinue. XX 12/13/24 00:00 CLARIFY KEVIN Sodium Chloride 10 ml 11/06/24 22:00 11/13/24 14:48 Central Line Flush IV PUSH 10 ml Q8HR KEVIN Administration Sodium Chloride 10 ml 11/06/24 14:29 Central Line Flush IV PUSH PRN PRN with TPN bag changes Sodium Chloride 20 ml 11/06/24 14:29 Central Line Flush IV PUSH PRN PRN after blood draws Trazodone HCl 50 mg 11/03/24 21:00 11/12/24 21:41 Trazodone Hcl 50 Mg Tablet PO 50 mg QHS KEVIN Administration Vancomycin HCl 500 mg 11/06/24 08:15 11/13/24 17:56 Vancomycin Hcl 250 Mg Oral Capsule PO 500 mg Q6HR KEVIN Administration Radiology Results: ITS Impressions Abdomen/Pelvis CT 11/04/24 12:36 IMPRESSION: 1. No evidence of bowel perforation. 2. Persistent severe pancolitis. 3. New small scattered ascites. 4. New small pleural effusions and significant bibasilar atelectasis. Renal Ultrasound 11/04/24 19:07 Impression: Simple appearing left renal cyst. No significant medical renal disease or obstruction Abdomen X-Ray 11/05/24 16:02 Impression: 1. Findings concerning for small bowel obstruction. CT is suggested Chest/Abdomen/Pelvis CT 11/05/24 17:04 IMPRESSION: 1. Diffuse colitis detailed above, correlate for underlying pseudomembranous colitis. No perforation or abscess. Follow-up recommended to assess. 2. CHF with superimposed probable bronchopneumonia. 3. Incidental findings above. Contrast-enhanced MRI recommended Head CT 11/06/24 12:46 Impression: 1.No acute intracranial abnormality. Thoracentesis Ultrasound 11/08/24 11:36 IMPRESSION: 1. Successful ultrasound-guided thoracentesis yielding 250 mL of yellow fluid. Chest X-Ray 11/11/24 08:57 IMPRESSION: 1. No significant change. 2. Pleural effusions with bibasilar atelectasis and/or airspace disease. 3. No pneumothorax. Labs Labs: Laboratory Tests 11/13/24 04:46 11/13/24 04:45 Calcium 7.6 L Phosphorus 4.2 Magnesium 1.6 Total Bilirubin 0.3 AST 24 ALT 16 Alkaline Phosphatase 99 Total Protein 4.9 L Albumin 2.5 L Microbiology 11/08/24 10:58 Thoracentesis Fluid Anaerobic Culture Extend Incubation - Preliminary 11/08/24 10:58 Thoracentesis Fluid Sterile Body Fluid Culture - Final 11/06/24 15:18 Urine - Unspecified Urine Specimen Source - Final 11/06/24 15:18 Urine - Unspecified Urine Streptococcus pneumoniae Ag Screen - Final 11/06/24 15:18 Urine - Unspecified Urine Sterile Body Fluid Culture - Final Not Reportable 11/06/24 15:18 Urine - Unspecified Urine Organism Identification - Final Not Reportable
--- NOTE | 2024-11-13 11:50 | WPDINFPN2 ---
Progress Note: A&P Assessment and Plan (1) Clostridium difficile colitis: Code(s): A04.72 - Enterocolitis due to Clostridium difficile, not specified as recurrent Status: Acute Assessment and Plan: -Severe C.difficile colitis is improving -Continue to have some diarrhea but abdominal pain has resolved (2) Leukocytosis: Code(s): D72.829 - Elevated white blood cell count, unspecified Status: Acute Assessment and Plan: -Reactive from C.difficile infection -Continue to monitor (3) Diverticulitis large intestine: Code(s): K57.32 - Diverticulitis of large intestine without perforation or abscess without bleeding Status: Acute Assessment and Plan: -Diagnosed one week prior to admission -S/P Augmentin x 5 days prior to admission -Discontinued Zosyn on 11/10/24 as patient has completed 8 day course for diverticulitis (4) Colitis: Code(s): K52.9 - Noninfective gastroenteritis and colitis, unspecified Status: Acute Assessment and Plan: -Pancolitis noted on CT -Due to C.difficile colitis (5) Acute kidney injury: Code(s): N17.9 - Acute kidney failure, unspecified Status: Acute Assessment and Plan: -Management as per Nephrology service -Plans for short-term HD (6) Pleural effusion: Code(s): J90 - Pleural effusion, not elsewhere classified Status: Acute Assessment and Plan: -S/P Left thoracentesis 11/08/24 -Pleural fluid studies not consistent with empyema -Await pleural fluid cultures- NGTD -Management as per Pulmonary service Plan -Continue high-dose enteral Vancomycin for treatment of C.difficile colitis -Continue Metronidazole IV day 6 for treatment of severe C.difficile colitis -Consider Vancomycin per rectum if symptoms worsen -Follow off other systemic antimicrobials -Await left pleural fluid cultures -Follow CBC and renal function Antimicrobial plan of care discussed with patient. All questions answered Patient was seen via video telehealth consultation with the assistance of staff. Chart, data, and patient independently reviewed. Patient was located at [facility] while I was located in my [place] office. Received verbal consent from patient. Subjective Date/time seen: 11/13/24 11:50 Interval history: Patient afebrile. Clinical status has improved enough that she has transferred from ICU stepdown to general medical floor. Her abdominal pain has resolved. FMS remains in place. She is not sure how much diarrhea she is having at this time. She reports poor appetite. Review of Systems Review of Systems: All systems reviewed & are unremarkable except as noted in HPI and below Exam Narrative: Gen: fatigued Pulm: tachypneic with some conversational dyspnea Derm: no rash Abd: decreased distension, no TTP with palpation and no guarding/rebound TTP : FMS in place Lines: RUE PICC intact : urinary catheter in place draining clear urine Objective Data Vital Signs Vital Signs: Vital Signs - 24 hr 11/12/24 12:45 11/12/24 16:00 11/12/24 16:19 Temperature 97.4 F L Pulse Rate 62 62 Respiratory Rate 20 Blood Pressure 153/49 H Pulse Oximetry 93 92 Oxygen Delivery High Flow Nasal Cannula Oxygen Flow Rate 2 Fraction of Inspired Oxygen 11/12/24 20:00 11/12/24 20:53 11/13/24 04:22 Temperature 97.5 F L 97.6 F Pulse Rate 58 L 57 L Respiratory Rate 16 16 Blood Pressure 143/58 H 122/68 Pulse Oximetry 90 91 Oxygen Delivery Room Air Oxygen Flow Rate Fraction of Inspired Oxygen 70 11/13/24 09:19 11/13/24 09:20 11/13/24 09:20 Temperature Pulse Rate 61 61 Respiratory Rate Blood Pressure 148/46 H Pulse Oximetry 91 Oxygen Delivery Room Air Oxygen Flow Rate Fraction of Inspired Oxygen Intake/Output Intake/Output: Intake & Output 11/10/24 11/11/24 11/12/24 11/13/24 23:59 23:59 23:59 23:59 Intake Total 690 1760 1500.2 658.9 Output Total 1677 1900 500 150 Balance -987 -140 1000.2 508.9 Meds/Results Medications: Active Medications Generic Name Dose Route Start Last Admin Trade Name Freq PRN Reason Stop Dose Admin Acetaminophen 650 mg 11/06/24 12:18 11/09/24 13:38 Acetaminophen 325 Mg Tablet PO 650 mg Q4H PRN Administration Headache Alprazolam 0.25 mg 11/03/24 19:16 11/13/24 01:25 Alprazolam (*Crx) 0.25 Mg Tablet PO 0.25 mg QHS PRN Administration Anxiety Alprazolam 0.25 mg 11/11/24 06:34 11/11/24 08:16 Alprazolam (*Crx) 0.25 Mg Tablet PO 0.25 mg WITH DIALYSIS PRN Administration Anxiety Alteplase, Recombinant 2 mg 11/11/24 21:39 11/11/24 22:17 Alteplase 2 Mg Vial (Cathflo) IV PUSH 2 mg ONCE PRN Administration Line Occlusion Cyclosporine 1 drop 11/03/24 21:00 11/13/24 09:20 Cyclosporine 0.4 Ml Ophth Solution EACH EYE 1 drop Q12HR KEVIN Administration Epoetin Jarred-epbx 10,000 units 11/13/24 17:48 Epoetin Jarred-Epbx 10,000 Units/Ml Vial IV PUSH 11/13/24 17:49 ONCE ONE Heparin Sodium (Porcine) 5,000 units 11/11/24 16:29 Heparin Sodium 5,000 Units/Ml Vial IV PUSH PRN PRN aPTT less than 55 seconds Heparin Sodium (Porcine) 2,500 units 11/11/24 16:29 Heparin Sodium 5,000 Units/Ml Vial IV PUSH PRN PRN aPTT 55 - 70 seconds Metronidazole 500 mg in 100 mls @ 100 mls/hr 11/08/24 13:00 11/13/24 06:09 Flagyl 500 Mg/Iso Soln 100 Ml IVPB 100 mls/hr Q8HR KEVIN Administration Albumin Human 50 mls @ 999 mls/hr 11/10/24 09:33 Albutein IVPB 12/10/24 09:32 Q10M PRN HYPOTENSION Heparin Sodium/Dextrose 25,000 units in 250 mls @ 7 mls/hr 11/11/24 16:30 11/13/24 05:48 Heparin Sodium/D5w 100 Units/Ml IV CONT 700 units/hr .Q24H KEVIN 7 mls/hr Protocol Titration 700 UNITS/HR Metoprolol Tartrate 50 mg 11/08/24 09:00 11/13/24 09:20 Metoprolol Tartrate 50 Mg Tab PO 50 mg BID KEVIN Administration Miscellaneous Information 1 each 11/13/24 00:01 Xanax Needs To Be Renewed Or It Will Automatically Discontinue. XX 12/13/24 00:00 CLARIFY KEVIN Sodium Chloride 10 ml 11/06/24 22:00 11/13/24 06:09 Central Line Flush IV PUSH 10 ml Q8HR KEVIN Administration Sodium Chloride 10 ml 11/06/24 14:29 Central Line Flush IV PUSH PRN PRN with TPN bag changes Sodium Chloride 20 ml 11/06/24 14:29 Central Line Flush IV PUSH PRN PRN after blood draws Trazodone HCl 50 mg 11/03/24 21:00 11/12/24 21:41 Trazodone Hcl 50 Mg Tablet PO 50 mg QHS KEVIN Administration Vancomycin HCl 500 mg 11/06/24 08:15 11/13/24 06:09 Vancomycin Hcl 250 Mg Oral Capsule PO 500 mg Q6HR KEVIN Administration Radiology Results: ITS Impressions Abdomen/Pelvis CT 11/04/24 12:36 IMPRESSION: 1. No evidence of bowel perforation. 2. Persistent severe pancolitis. 3. New small scattered ascites. 4. New small pleural effusions and significant bibasilar atelectasis. Renal Ultrasound 11/04/24 19:07 Impression: Simple appearing left renal cyst. No significant medical renal disease or obstruction Abdomen X-Ray 11/05/24 16:02 Impression: 1. Findings concerning for small bowel obstruction. CT is suggested Chest/Abdomen/Pelvis CT 11/05/24 17:04 IMPRESSION: 1. Diffuse colitis detailed above, correlate for underlying pseudomembranous colitis. No perforation or abscess. Follow-up recommended to assess. 2. CHF with superimposed probable bronchopneumonia. 3. Incidental findings above. Contrast-enhanced MRI recommended Head CT 11/06/24 12:46 Impression: 1.No acute intracranial abnormality. Thoracentesis Ultrasound 11/08/24 11:36 IMPRESSION: 1. Successful ultrasound-guided thoracentesis yielding 250 mL of yellow fluid. Chest X-Ray 11/11/24 08:57 IMPRESSION: 1. No significant change. 2. Pleural effusions with bibasilar atelectasis and/or airspace disease. 3. No pneumothorax. Labs Labs: Laboratory Results - last 24 hr 11/05/24 11/12/24 11/12/24 04:18 16:13 22:17 WBC RBC Hgb Hct MCV MCH MCHC RDW Plt Count MPV Immature Gran % (Auto) Neut % (Auto) Lymph % (Auto) [place] % (Auto) Eos % (Auto) Baso % (Auto) Lymph # (Auto) [place] # (Auto) Eos # (Auto) Baso # (Auto) Abs Immat Gran (auto) Absolute Neuts (auto) Absolute Nucleated RBC Nucleated RBC % APTT 108.4 H 84.1 H Sodium Potassium Chloride Carbon Dioxide Anion Gap BUN Creatinine Estim Creat Clear Calc Estimated GFR Glucose Serum Osmolality 292 Calcium Phosphorus Magnesium Total Bilirubin AST ALT Alkaline Phosphatase Total Protein Albumin 11/13/24 11/13/24 04:45 04:46 WBC 25.1 H RBC 3.49 L Hgb 10.7 L Hct 31.8 L MCV 91.1 MCH 30.7 MCHC 33.6 RDW 13.5 Plt Count 406 H MPV 9.1 Immature Gran % (Auto) 3.5 H Neut % (Auto) 85.8 H Lymph % (Auto) 5.9 L [place] % (Auto) 4.2 Eos % (Auto) 0.2 Baso % (Auto) 0.4 Lymph # (Auto) 1.48 [place] # (Auto) 1.1 H Eos # (Auto) 0.1 Baso # (Auto) 0.1 Abs Immat Gran (auto) 0.89 H Absolute Neuts (auto) 21.5 H Absolute Nucleated RBC 0.000 Nucleated RBC % 0.0 APTT 112.6 H Sodium 121 L Potassium 3.1 L Chloride 91 L Carbon Dioxide 22 Anion Gap 8 BUN 53 H D Creatinine 2.58 H Estim Creat Clear Calc 16 Estimated GFR 18 L Glucose 117 H Serum Osmolality Calcium 7.6 L Phosphorus 4.2 Magnesium 1.6 Total Bilirubin 0.3 AST 24 ALT 16 Alkaline Phosphatase 99 Total Protein 4.9 L Albumin 2.5 L
--- NOTE | 2024-11-13 12:03 | PCNFU ---
Nutrition Follow-Up Complete: Inadequate oral intake related to altered GI function as evidenced by diverticulitis Diet advancement- Goal is met Improve PO intake when diet advanced- Slow progress with goal. Continue same goal Goal: Pt current nutrition is Renal diet. Ensure Plus HP BID (350 kcal, 20 g protein). Nutrition recommendation: No nutrition recommendations. Continue current nutrition care plan and orders. Agree with orders Last recorded weight is 75.4 kg. Bowel Motility:Liquid stool output per FMS Labs Reviewed: Hgb 10.7, Hct 31.8, Alb 2.5, Na 121, K+ 3.1, BUN 53, Cre 2.58, Glu 117 Meds Noted: Eliquis, flagyl, vancomycin Skin: No skin issues. Additional Notes: Intakes remain poor. Family is bringing in food including [employer] milks. Continue current nutrition care plan and orders. Monitoring diet orders, weights, labs, plan of care Follow up in 3 days
[2024-11-13 12:23] LABS: Partial Thromboplastin Time 80.1 Seconds (22.3-36.8)
[2024-11-13 18:18] LABS: Partial Thromboplastin Time 77.4 Seconds (22.3-36.8)
[2024-11-13] MEDS: HEPARIN SOD/D5W 100 UNITS/ML 25,000 UNITS/250 ML BAG 7 UNITS IV CONT (18:50)
[2024-11-13] MEDS: BUMETANIDE INJ 1 MG/4 ML VIAL 2 MG IV PUSH (23:15)
[2024-11-14] VITALS (23 sets, daily range): BP systolic 106–178; BP diastolic 43–70; PULSE 63–75; RESP 16–20; TEMP 36.4–37; O2SAT 90–94
[2024-11-14] MEDS: VANCOMYCIN HCL 250 MG ORAL CAPSULE 500 MG PO ×4 (00:44→17:57)
[2024-11-14] MEDS: ALPRAZolam (*CRX) 0.25 MG TABLET PO ×2 (00:51→10:44)
[2024-11-14 05:06] LABS: Hematocrit 31.0 % (37.0-47.0); Hemoglobin 10.7 g/dL (12.0-15.0); Immature Granulocyte Percent A 3.2 % (0-0.5); Lymphocytes Absolute Auto 1.20 K/mm3 (0.9-3.2); Mean Corpuscular HGB Conc 34.5 g/dl (32-36); Mean Corpuscular Hemoglobin 31.3 pg (26-34); Mean Corpuscular Volume 90.6 fl (80-100); Nucleated Red Blood Cells Absolute Auto 0.000 K/mm3 (0.0-0.012); Nucleated Red Blood Cells Perc 0.0 % (0.0-0.2); Platelet Count Result 360 k/mm3 (150-375); Red Blood Count 3.42 M/mm3 (4.2-5.4); White Blood Count 20.4 K/mm3 (4.5-10.0)
[2024-11-14 05:26] LABS: Alanine Aminotransferase 14 U/L (6-35); Albumin Level 2.3 g/dL (3.5-5.1); Alkaline Phosphatase 86 U/L (38-126); Anion Gap 9 mmol/L (4-12); Aspartate Amino Transferase 25 U/L (14-36); Bilirubin,Total 0.4 mg/dL (0.2-1.3); Blood Urea Nitrogen 56 mg/dL (7-17); Calcium 7.4 mg/dL (8.4-10.2); Carbon Dioxide 21 mmol/L (22-30); Chloride 91 mmol/L (98-107); Estimated CRCL calculation 19 ml/min; Estimated Glomerular Filt Rate 21; Glucose 104 mg/dL (65-110); Magnesium 1.5 mg/dL (1.6-2.3); Partial Thromboplastin Time 72.4 Seconds (22.3-36.8); Potassium 3.3 mmol/L (3.4-5.0); Sodium 121 mmol/L (137-145); Total Protein 4.7 g/dL (6.3-8.2)
[2024-11-14] MEDS: metroNIDAZOLE 500 MG/ISO 100ML 500 MG/100 ML BAG 100 MG IVPB ×3 (05:28→22:16)
[2024-11-14] MEDS: CENTRAL LINE FLUSH 10 ML IV PUSH ×3 (05:35→22:17)
[2024-11-14 05:42] LABS: Procalcitonin 0.6 ng/mL
--- NOTE | 2024-11-14 08:09 | ECG_ITS ---
Test Date: 2024-11-14 09:30:49 Measurements Intervals [place] Rate: 67 P: 30 DE: 159 QRS: -28 QRSD: 96 T: -3 QT: 389 QTc: 411 Interpretive Statements SINUS RHYTHM Poor R wave progression Compared to ECG 11/06/2024 11:41:02 Myocardial infarct finding now present Atrial flutter no longer present Electronically Signed On 11-14-2024 14:43:32 CDT by Richard Arriaga M.D.
[2024-11-14] MEDS: cycloSPORINE 0.4 ML OPHTH SOLUTION 1 DROP EACH EYE ×2 (09:21→22:16)
[2024-11-14] MEDS: METOPROLOL TARTRATE 50 MG TAB PO ×2 (09:21→17:56)
--- NOTE | 2024-11-14 10:47 | PCPTNOTE ---
The patient treatment was not able to be completed at this time due to patient out of room for dialysis. Will plan to continue treatment per plan of care.
--- NOTE | 2024-11-14 11:12 | P.PNNP_ITS ---
Progress Note: A&P Assessment and Plan (1) Acute kidney injury: Code(s): N17.9 - Acute kidney failure, unspecified Status: Acute Assessment and Plan: * as noted by admission labs (creatinine of 3.03mg/dL) * creatinine normal 2 days prior to admission * baseline creatinine runs ~ 0.9 - 1.1mg/dL * suspect multifactorial etiology: * prerenal factors * infection/early sepsis (diverticulitis/colitis) * contrast exposure (CT of A/P on 11/01) * relative hypotension on presentation * JAMIE-I/diuretic use prior to admission * urinary retention(?) - difficulty urinating on admission so gamble catheter placed * other (?) * off IVFs due to concerns for volume overload * evaluation to date noted: * renal ultrasound without obstruction * urine electrolytes prerenal * urine eosinophils negative * CPK normal * mild proteinuria * holding lisinopril and spironolactone * 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 * follow trend of repeat labs and UOP (2) Clostridium difficile colitis: Code(s): A04.72 - Enterocolitis due to Clostridium difficile, not specified as recurrent Status: Acute Assessment and Plan: * demonstrated by positive C. diff toxin assay * also noted by CT imaging to date: * CT of C/A/P (11/05): Diffuse colitis detailed above, correlate for underlying pseudomembranous colitis. No perforation or abscess * CT of A/P (11/04): No evidence of bowel perforation; persistent severe pancolitis * CT of A/P (11/03): Interval progression of radiographically uncomplicated selby colitis which could be infectious, inflammatory or less likely ischemic in etiology * CT of A/P (11/01): Sigmoid diverticulitis. No perforation or abscess * complicated by diverticulitis * follow culture data * follow trend of WBC * on antibiotics * Infectious Disease following (3) Acute hypoxic respiratory failure: Code(s): J96.01 - Acute respiratory failure with hypoxia Status: Acute Assessment and Plan: * improvement noted * multifactorial etiology: * bilateral pleural effusions * atelectasis * fluid overload * atrial flutter with rapid ventricular response * pancolitis * possible pneumonia (?) * s/p thoracentesis (on 11/08) * Pulmonary following with recommendations noted * fluid removal with dialysis as tolerated * follow respiratory status (4) Metabolic acidosis: Code(s): E87.20 - Acidosis, unspecified Status: Acute Assessment and Plan: * due to DONOVAN/ARF and GI issues/symptoms * fluctuating lactic acid levels noted * dialysis should help correct * follow repeat labs (5) Hyponatremia: Code(s): E87.1 - Hypo-osmolality and hyponatremia Status: Acute Assessment and Plan: * as noted on admission * possible chronic component -- sodium seems to run 129 - 136mmol/L since 2021 * presumably worsen by: * DONOVAN/ARF * prerenal factors * pleural effusions * possible pneumonia * urinary retention * mild improvement s/p IVF resuscitation * should correct to some degree with dialysis * follow trend of sodium (6) Atrial flutter: Code(s): I48.92 - Unspecified atrial flutter Status: Acute Assessment and Plan: * as noted by events early on 11/05 * rate control strategy * Cardiology recommendations noted * on metoprolol * was on IV amiodarone (temporary measure) * Echo noted (on 11/07) * left ventricular systolic function is hyperdynamic, estimated at > 70% * left ventricular diastolic function is grade I diastolic dysfunction * no aortic valve stenosis * mild tricuspid valve regurgitation * on anticoagulation (7) Elevated troponin: Code(s): R79.89 - Other specified abnormal findings of blood chemistry Status: Acute Assessment and Plan: * due to DONOVAN versus atrial fluttter with RVR * trend noted * Cardiology already following (8) Hypertension: Code(s): I10 - Essential (primary) hypertension Status: Chronic Assessment and Plan: * reasonable control * holding JAMIE-I and diuretics due to #1 * follow trend of hemodynamics Will continue to follow. L Subjective Date/time seen: 11/14/24 11:12 Interval history: Follow-up for acute kidney injury/acute renal failure. Tolerating dialysis treatment at the time of my visit (seen on HD at 11:00am); still with issues related to swelling/edema but overall, she states that she does feel better; no other issues/events overnight or earlier this morning. Exam 2 Narrative: General: elderly but WD/WN female in NAD Heart: RRR, normal S1 and S2; no rub Lungs: coarse and decreased at bases Abdomen: soft, nontender, positive bowel sounds Extremities: no cyanosis or clubbing; trace - 1+ edema Skin: warm and dry Objective Data Vital Signs Vital Signs: Vital Signs Temp Pulse Resp BP Pulse Ox O2 Del Method FiO2 11/14/24 11:00 72 134/67 11/14/24 10:45 70 139/70 11/14/24 10:30 70 136/66 11/14/24 10:15 68 153/64 H 11/14/24 10:10 70 167/65 H 11/14/24 10:03 98.1 F 71 16 178/68 H 93 11/14/24 09:21 70 11/14/24 09:20 Room Air 11/14/24 04:28 98.0 F 63 16 151/52 H 92 11/13/24 20:05 98.3 F 62 16 147/55 H 92 11/13/24 20:00 62 16 92 Room Air 70 11/13/24 17:55 61 Intake/Output Intake/Output: Intake & Output 11/11/24 11/12/24 11/13/24 11/14/24 23:59 23:59 23:59 23:59 Intake Total 1760 1500.2 1600.1 878.3 Output Total 1900 181 467 8842 Balance -140 1000.2 1125.1 -1421.7 Meds/Results Medications: Active Medications Generic Name Dose Route Start Last Admin Trade Name Freq PRN Reason Stop Dose Admin Acetaminophen 650 mg 11/06/24 12:18 11/09/24 13:38 Acetaminophen 325 Mg Tablet PO 650 mg Q4H PRN Administration Headache Alprazolam 0.25 mg 11/11/24 06:34 11/14/24 10:44 Alprazolam (*Crx) 0.25 Mg Tablet PO 0.25 mg WITH DIALYSIS PRN Administration Anxiety Alteplase, Recombinant 2 mg 11/11/24 21:39 11/11/24 22:17 Alteplase 2 Mg Vial (Cathflo) IV PUSH 2 mg ONCE PRN Administration Line Occlusion Cyclosporine 1 drop 11/03/24 21:00 11/14/24 09:21 Cyclosporine 0.4 Ml Ophth Solution EACH EYE 1 drop Q12HR KEVIN Administration Heparin Sodium (Porcine) 5,000 units 11/11/24 16:29 Heparin Sodium 5,000 Units/Ml Vial IV PUSH PRN PRN aPTT less than 55 seconds Heparin Sodium (Porcine) 2,500 units 11/11/24 16:29 Heparin Sodium 5,000 Units/Ml Vial IV PUSH PRN PRN aPTT 55 - 70 seconds Metronidazole 500 mg in 100 mls @ 100 mls/hr 11/08/24 13:00 11/14/24 15:22 Flagyl 500 Mg/Iso Soln 100 Ml IVPB Infused Q8HR KEVIN Infusion Albumin Human 50 mls @ 999 mls/hr 11/10/24 09:33 Albutein IVPB 12/10/24 09:32 Q10M PRN HYPOTENSION Heparin Sodium/Dextrose 25,000 units in 250 mls @ 7 mls/hr 11/11/24 16:30 11/14/24 06:01 Heparin Sodium/D5w 100 Units/Ml IV CONT 700 units/hr .Q24H KEVIN 7 mls/hr Protocol Titration 700 UNITS/HR Metoprolol Tartrate 50 mg 11/08/24 09:00 11/14/24 09:21 Metoprolol Tartrate 50 Mg Tab PO 50 mg BID KEVIN Administration Sodium Chloride 10 ml 11/06/24 22:00 11/14/24 14:22 Central Line Flush IV PUSH 10 ml Q8HR KEVIN Administration Sodium Chloride 10 ml 11/06/24 14:29 Central Line Flush IV PUSH PRN PRN with TPN bag changes Sodium Chloride 20 ml 11/06/24 14:29 Central Line Flush IV PUSH PRN PRN after blood draws Trazodone HCl 50 mg 11/03/24 21:00 11/13/24 21:22 Trazodone Hcl 50 Mg Tablet PO 50 mg QHS KEVIN Administration Vancomycin HCl 500 mg 11/06/24 08:15 11/14/24 14:21 Vancomycin Hcl 250 Mg Oral Capsule PO 500 mg Q6HR KEVIN Administration Radiology Results: ITS Impressions Abdomen/Pelvis CT 11/04/24 12:36 IMPRESSION: 1. No evidence of bowel perforation. 2. Persistent severe pancolitis. 3. New small scattered ascites. 4. New small pleural effusions and significant bibasilar atelectasis. Renal Ultrasound 11/04/24 19:07 Impression: Simple appearing left renal cyst. No significant medical renal disease or obstruction Abdomen X-Ray 11/05/24 16:02 Impression: 1. Findings concerning for small bowel obstruction. CT is suggested Chest/Abdomen/Pelvis CT 11/05/24 17:04 IMPRESSION: 1. Diffuse colitis detailed above, correlate for underlying pseudomembranous colitis. No perforation or abscess. Follow-up recommended to assess. 2. CHF with superimposed probable bronchopneumonia. 3. Incidental findings above. Contrast-enhanced MRI recommended Head CT 11/06/24 12:46 Impression: 1.No acute intracranial abnormality. Thoracentesis Ultrasound 11/08/24 11:36 IMPRESSION: 1. Successful ultrasound-guided thoracentesis yielding 250 mL of yellow fluid. Chest X-Ray 11/11/24 08:57 IMPRESSION: 1. No significant change. 2. Pleural effusions with bibasilar atelectasis and/or airspace disease. 3. No pneumothorax. Labs Labs: Laboratory Tests 11/14/24 04:49 11/14/24 04:49 Calcium 7.4 L Phosphorus 4.3 Magnesium 1.5 L Total Bilirubin 0.4 AST 25 ALT 14 Alkaline Phosphatase 86 Total Protein 4.7 L Albumin 2.3 L Procalcitonin 0.6 Microbiology 11/08/24 10:58 Thoracentesis Fluid Anaerobic Culture Extend Incubation - Preliminary 11/08/24 10:58 Thoracentesis Fluid Sterile Body Fluid Culture - Final
--- NOTE | 2024-11-14 11:12 | PM.PNNEP ---
Progress Note: A&P Assessment and Plan (1) Acute kidney injury: Code(s): N17.9 - Acute kidney failure, unspecified Status: Acute Assessment and Plan: as noted by admission labs (creatinine of 3.03mg/dL) creatinine normal 2 days prior to admission baseline creatinine runs ~ 0.9 - 1.1mg/dL suspect multifactorial etiology: prerenal factors infection/early sepsis (diverticulitis/colitis) contrast exposure (CT of A/P on 11/01) relative hypotension on presentation JAMIE-I/diuretic use prior to admission urinary retention(?) - difficulty urinating on admission so gamble catheter placed other (?) off IVFs due to concerns for volume overload evaluation to date noted: renal ultrasound without obstruction urine electrolytes prerenal urine eosinophils negative CPK normal mild proteinuria holding lisinopril and spironolactone initiated on ACTUARIAL INTERN/HD on 11/10 HD today relative stability in creatinine slightly better urine output possible recovery??? follow trend of repeat labs and UOP (2) Clostridium difficile colitis: Code(s): A04.72 - Enterocolitis due to Clostridium difficile, not specified as recurrent Status: Acute Assessment and Plan: demonstrated by positive C. diff toxin assay also noted by CT imaging to date: CT of C/A/P (11/05): Diffuse colitis detailed above, correlate for underlying pseudomembranous colitis. No perforation or abscess CT of A/P (11/04): No evidence of bowel perforation; persistent severe pancolitis CT of A/P (11/03): Interval progression of radiographically uncomplicated selby colitis which could be infectious, inflammatory or less likely ischemic in etiology CT of A/P (11/01): Sigmoid diverticulitis. No perforation or abscess complicated by diverticulitis follow culture data follow trend of WBC on antibiotics Infectious Disease following (3) Acute hypoxic respiratory failure: Code(s): J96.01 - Acute respiratory failure with hypoxia Status: Acute Assessment and Plan: improvement noted multifactorial etiology: bilateral pleural effusions atelectasis fluid overload atrial flutter with rapid ventricular response pancolitis possible pneumonia (?) s/p thoracentesis (on 11/08) Pulmonary following with recommendations noted fluid removal with dialysis as tolerated follow respiratory status (4) Metabolic acidosis: Code(s): E87.20 - Acidosis, unspecified Status: Acute Assessment and Plan: due to DOONVAN/ARF and GI issues/symptoms fluctuating lactic acid levels noted dialysis should help correct follow repeat labs (5) Hyponatremia: Code(s): E87.1 - Hypo-osmolality and hyponatremia Status: Acute Assessment and Plan: as noted on admission possible chronic component -- sodium seems to run 129 - 136mmol/L since 2021 presumably worsen by: DONOVAN/ARF prerenal factors pleural effusions possible pneumonia urinary retention mild improvement s/p IVF resuscitation should correct to some degree with dialysis follow trend of sodium (6) Atrial flutter: Code(s): I48.92 - Unspecified atrial flutter Status: Acute Assessment and Plan: as noted by events early on 11/05 rate control strategy Cardiology recommendations noted on metoprolol was on IV amiodarone (temporary measure) Echo noted (on 11/07) left ventricular systolic function is hyperdynamic, estimated at > 70% left ventricular diastolic function is grade I diastolic dysfunction no aortic valve stenosis mild tricuspid valve regurgitation on anticoagulation (7) Elevated troponin: Code(s): R79.89 - Other specified abnormal findings of blood chemistry Status: Acute Assessment and Plan: due to DONOVAN versus atrial fluttter with RVR trend noted Cardiology already following (8) Hypertension: Code(s): I10 - Essential (primary) hypertension Status: Chronic Assessment and Plan: reasonable control holding JAMIE-I and diuretics due to #1 follow trend of hemodynamics Will continue to follow. Subjective Date/time seen: 11/14/24 11:12 Interval history: Follow-up for acute kidney injury/acute renal failure. Tolerating dialysis treatment at the time of my visit (seen on HD at 11:00am); still with issues related to swelling/edema but overall, she states that she does feel better; no other issues/events overnight or earlier this morning. Exam Narrative: General: elderly but WD/WN female in NAD Heart: RRR, normal S1 and S2; no rub Lungs: coarse and decreased at bases Abdomen: soft, nontender, positive bowel sounds Extremities: no cyanosis or clubbing; trace - 1+ edema Skin: warm and dry Objective Data Vital Signs Vital Signs: Vital Signs Temp Pulse Resp BP Pulse Ox O2 Del Method FiO2 11/14/24 11:00 72 134/67 11/14/24 10:45 70 139/70 11/14/24 10:30 70 136/66 11/14/24 10:15 68 153/64 H 11/14/24 10:10 70 167/65 H 11/14/24 10:03 98.1 F 71 16 178/68 H 93 11/14/24 09:21 70 11/14/24 09:20 Room Air 11/14/24 04:28 98.0 F 63 16 151/52 H 92 11/13/24 20:05 98.3 F 62 16 147/55 H 92 11/13/24 20:00 62 16 92 Room Air 70 11/13/24 17:55 61 Intake/Output Intake/Output: Intake & Output 11/11/24 11/12/24 11/13/24 11/14/24 23:59 23:59 23:59 23:59 Intake Total 1760 1500.2 1600.1 878.3 Output Total 1900 805 844 3433 Balance -140 1000.2 1125.1 -1421.7 Meds/Results Medications: Active Medications Generic Name Dose Route Start Last Admin Trade Name Andreaq PRN Reason Stop Dose Admin Acetaminophen 650 mg 11/06/24 12:18 11/09/24 13:38 Acetaminophen 325 Mg Tablet PO 650 mg Q4H PRN Administration Headache Alprazolam 0.25 mg 11/11/24 06:34 11/14/24 10:44 Alprazolam (*Crx) 0.25 Mg Tablet PO 0.25 mg WITH DIALYSIS PRN Administration Anxiety Alteplase, Recombinant 2 mg 11/11/24 21:39 11/11/24 22:17 Alteplase 2 Mg Vial (Cathflo) IV PUSH 2 mg ONCE PRN Administration Line Occlusion Cyclosporine 1 drop 11/03/24 21:00 11/14/24 09:21 Cyclosporine 0.4 Ml Ophth Solution EACH EYE 1 drop Q12HR KEVIN Administration Heparin Sodium (Porcine) 5,000 units 11/11/24 16:29 Heparin Sodium 5,000 Units/Ml Vial IV PUSH PRN PRN aPTT less than 55 seconds Heparin Sodium (Porcine) 2,500 units 11/11/24 16:29 Heparin Sodium 5,000 Units/Ml Vial IV PUSH PRN PRN aPTT 55 - 70 seconds Metronidazole 500 mg in 100 mls @ 100 mls/hr 11/08/24 13:00 11/14/24 15:22 Flagyl 500 Mg/Iso Soln 100 Ml IVPB Infused Q8HR KEVIN Infusion Albumin Human 50 mls @ 999 mls/hr 11/10/24 09:33 Albutein IVPB 12/10/24 09:32 Q10M PRN HYPOTENSION Heparin Sodium/Dextrose 25,000 units in 250 mls @ 7 mls/hr 11/11/24 16:30 11/14/24 06:01 Heparin Sodium/D5w 100 Units/Ml IV CONT 700 units/hr .Q24H KEVIN 7 mls/hr Protocol Titration 700 UNITS/HR Metoprolol Tartrate 50 mg 11/08/24 09:00 11/14/24 09:21 Metoprolol Tartrate 50 Mg Tab PO 50 mg BID KEVIN Administration Sodium Chloride 10 ml 11/06/24 22:00 11/14/24 14:22 Central Line Flush IV PUSH 10 ml Q8HR KEVIN Administration Sodium Chloride 10 ml 11/06/24 14:29 Central Line Flush IV PUSH PRN PRN with TPN bag changes Sodium Chloride 20 ml 11/06/24 14:29 Central Line Flush IV PUSH PRN PRN after blood draws Trazodone HCl 50 mg 11/03/24 21:00 11/13/24 21:22 Trazodone Hcl 50 Mg Tablet PO 50 mg QHS KEVIN Administration Vancomycin HCl 500 mg 11/06/24 08:15 11/14/24 14:21 Vancomycin Hcl 250 Mg Oral Capsule PO 500 mg Q6HR KEVIN Administration Radiology Results: ITS Impressions Abdomen/Pelvis CT 11/04/24 12:36 IMPRESSION: 1. No evidence of bowel perforation. 2. Persistent severe pancolitis. 3. New small scattered ascites. 4. New small pleural effusions and significant bibasilar atelectasis. Renal Ultrasound 11/04/24 19:07 Impression: Simple appearing left renal cyst. No significant medical renal disease or obstruction Abdomen X-Ray 11/05/24 16:02 Impression: 1. Findings concerning for small bowel obstruction. CT is suggested Chest/Abdomen/Pelvis CT 11/05/24 17:04 IMPRESSION: 1. Diffuse colitis detailed above, correlate for underlying pseudomembranous colitis. No perforation or abscess. Follow-up recommended to assess. 2. CHF with superimposed probable bronchopneumonia. 3. Incidental findings above. Contrast-enhanced MRI recommended Head CT 11/06/24 12:46 Impression: 1.No acute intracranial abnormality. Thoracentesis Ultrasound 11/08/24 11:36 IMPRESSION: 1. Successful ultrasound-guided thoracentesis yielding 250 mL of yellow fluid. Chest X-Ray 11/11/24 08:57 IMPRESSION: 1. No significant change. 2. Pleural effusions with bibasilar atelectasis and/or airspace disease. 3. No pneumothorax. Labs Labs: Laboratory Tests 11/14/24 04:49 11/14/24 04:49 Calcium 7.4 L Phosphorus 4.3 Magnesium 1.5 L Total Bilirubin 0.4 AST 25 ALT 14 Alkaline Phosphatase 86 Total Protein 4.7 L Albumin 2.3 L Procalcitonin 0.6 Microbiology 11/08/24 10:58 Thoracentesis Fluid Anaerobic Culture Extend Incubation - Preliminary 11/08/24 10:58 Thoracentesis Fluid Sterile Body Fluid Culture - Final
--- NOTE | 2024-11-14 11:24 | P.PNINF_ITS ---
Progress Note: A&P Assessment and Plan (1) Clostridium difficile colitis: Code(s): A04.72 - Enterocolitis due to Clostridium difficile, not specified as recurrent Status: Acute Assessment and Plan: -Severe C.difficile colitis is improving -Continue to have some diarrhea but abdominal pain has resolved (2) Leukocytosis: Code(s): D72.829 - Elevated white blood cell count, unspecified Status: Acute Assessment and Plan: -Reactive from C.difficile infection -Continue to monitor (3) Diverticulitis large intestine: Code(s): K57.32 - Diverticulitis of large intestine without perforation or abscess witho ut bleeding Status: Acute Assessment and Plan: -Diagnosed one week prior to admission -S/P Augmentin x 5 days prior to admission -Discontinued Zosyn on 11/10/24 as patient has completed 8 day course for diverticulitis (4) Colitis: Code(s): K52.9 - Noninfective gastroenteritis and colitis, unspecified Status: Acute Assessment and Plan: -Pancolitis noted on CT -Due to C.difficile colitis (5) Acute kidney injury: Code(s): N17.9 - Acute kidney failure, unspecified Status: Acute Assessment and Plan: -Management as per Nephrology service -Plans for short-term HD (6) Pleural effusion: Code(s): J90 - Pleural effusion, not elsewhere classified Status: Acute Assessment and Plan: -S/P Left thoracentesis 11/08/24 -Pleural fluid studies not consistent with empyema -Await pleural fluid cultures negative for growth -Management as per Pulmonary service Plan -Continue high-dose enteral Vancomycin for treatment of C.difficile colitis -Continue Metronidazole IV day 6 for treatment of severe C.difficile colitis; will discontinue s oon -Consider Vancomycin per rectum if symptoms worsen -Follow off other systemic antimicrobials -Await left pleural fluid cultures -Follow CBC and renal function Antimicrobial plan of care discussed with patient. All questions answered Patient was seen via video telehealth consultation with the assistance of staff. Chart, data, and patient independently reviewed. Patient was located at [facility] while I was located in my [place] office. Received verbal consent from patient. Subjective Date/time seen: 11/14/24 11:24 Interval history: Patient afebrile. Less diarrhea noted with volume of 200mL. WBC decreased today. She is eating a little bit better today Review of Systems Review of Systems: All systems reviewed & are unremarkable except as noted in HPI and below Exam Narrative: Gen: fatigued Pulm: tachypneic with some conversational dyspnea Derm: no rash Abd: decreased distension, no TTP with palpation and no guarding/rebound TTP : FMS in place Lines: RUE PICC intact : urinary catheter in place draining clear urine Objective Data Vital Signs Vital Signs: Vital Signs - 24 hr 11/13/24 13:26 11/13/24 17:55 11/13/24 20:00 Temperature 97.6 F Pulse Rate 61 61 62 Respiratory Rate 18 16 Blood Pressure 146/53 H Pulse Oximetry 93 92 Oxygen Delivery Room Air Fraction of Inspired Oxygen 70 11/13/24 20:05 11/14/24 04:28 11/14/24 09:20 Temperature 98.3 F 98.0 F Pulse Rate 62 63 Respiratory Rate 16 16 Blood Pressure 147/55 H 151/52 H Pulse Oximetry 92 92 Oxygen Delivery Room Air Fraction of Inspired Oxygen 11/14/24 09:21 11/14/24 10:03 11/14/24 10:10 Temperature 98.1 F Pulse Rate 70 71 70 Respiratory Rate 16 Blood Pressure 178/68 H 167/65 H Pulse Oximetry 93 Oxygen Delivery Fraction of Inspired Oxygen 11/14/24 10:15 11/14/24 10:30 11/14/24 10:45 Temperature Pulse Rate 68 70 70 Respiratory Rate Blood Pressure 153/64 H 136/66 139/70 Pulse Oximetry Oxygen Delivery Fraction of Inspired Oxygen 11/14/24 11:00 11/14/24 11:15 Temperature Pulse Rate 72 71 Respiratory Rate Blood Pressure 134/67 134/68 Pulse Oximetry Oxygen Delivery Fraction of Inspired Oxygen Intake/Output Intake/Output: Intake & Output 11/11/24 11/12/24 11/13/24 11/14/24 23:59 23:59 23:59 23:59 Intake Total 1760 1500.2 1600.1 278.3 Output Total 1900 500 475 550 Balance -140 1000.2 1125.1 -271.7 Meds/Results Medications: Active Medications Generic Name Dose Route Start Last Admin Trade Name Freq PRN Reason Stop Dose Admin Acetaminophen 650 mg 11/06/24 12:18 11/09/24 13:38 Acetaminophen 325 Mg Tablet PO 650 mg Q4H PRN Administration Headache Alprazolam 0.25 mg 11/11/24 06:34 11/14/24 10:44 Alprazolam (*Crx) 0.25 Mg Tablet PO 0.25 mg WITH DIALYSIS PRN Administration Anxiety Alteplase, Recombinant 2 mg 11/11/24 21:39 11/11/24 22:17 Alteplase 2 Mg Vial (Cathflo) IV PUSH 2 mg ONCE PRN Administration Line Occlusion Cyclosporine 1 drop 11/03/24 21:00 11/14/24 09:21 Cyclosporine 0.4 Ml Ophth Solution EACH EYE 1 drop Q12HR KEVIN Administration Heparin Sodium (Porcine) 5,000 units 11/11/24 16:29 Heparin Sodium 5,000 Units/Ml Vial IV PUSH PRN PRN aPTT less than 55 seconds Heparin Sodium (Porcine) 2,500 units 11/11/24 16:29 Heparin Sodium 5,000 Units/Ml Vial IV PUSH PRN PRN aPTT 55 - 70 seconds Metronidazole 500 mg in 100 mls @ 100 mls/hr 11/08/24 13:00 11/14/24 05:28 Flagyl 500 Mg/Iso Soln 100 Ml IVPB 100 mls/hr Q8HR KEVIN Administration Albumin Human 50 mls @ 999 mls/hr 11/10/24 09:33 Albutein IVPB 12/10/24 09:32 Q10M PRN HYPOTENSION Heparin Sodium/Dextrose 25,000 units in 250 mls @ 7 mls/hr 11/11/24 16:30 11/14/24 06:01 Heparin Sodium/D5w 100 Units/Ml IV CONT 700 units/hr .Q24H KEVIN 7 mls/hr Protocol Titration 700 UNITS/HR Metoprolol Tartrate 50 mg 11/08/24 09:00 11/14/24 09:21 Metoprolol Tartrate 50 Mg Tab PO 50 mg BID KEVIN Administration Sodium Chloride 10 ml 11/06/24 22:00 11/14/24 05:35 Central Line Flush IV PUSH 10 ml Q8HR KEVIN Administration Sodium Chloride 10 ml 11/06/24 14:29 Central Line Flush IV PUSH PRN PRN with TPN bag changes Sodium Chloride 20 ml 11/06/24 14:29 Central Line Flush IV PUSH PRN PRN after blood draws Trazodone HCl 50 mg 11/03/24 21:00 11/13/24 21:22 Trazodone Hcl 50 Mg Tablet PO 50 mg QHS KEVIN Administration Vancomycin HCl 500 mg 11/06/24 08:15 11/14/24 05:28 Vancomycin Hcl 250 Mg Oral Capsule PO 500 mg Q6HR KEVIN Administration Radiology Results: ITS Impressions Abdomen/Pelvis CT 11/04/24 12:36 IMPRESSION: 1. No evidence of bowel perforation. 2. Persistent severe pancolitis. 3. New small scattered ascites. 4. New small pleural effusions and significant bibasilar atelectasis. Renal Ultrasound 11/04/24 19:07 Impression: Simple appearing left renal cyst. No significant medical renal disease or obstruction Abdomen X-Ray 11/05/24 16:02 Impression: 1. Findings concerning for small bowel obstruction. CT is suggested Chest/Abdomen/Pelvis CT 11/05/24 17:04 IMPRESSION: 1. Diffuse colitis detailed above, correlate for underlying pseudomembranous colitis. No perforation or abscess. Follow-up recommended to assess. 2. CHF with superimposed probable bronchopneumonia. 3. Incidental findings above. Contrast-enhanced MRI recommended Head CT 11/06/24 12:46 Impression: 1.No acute intracranial abnormality. Thoracentesis Ultrasound 11/08/24 11:36 IMPRESSION: 1. Successful ultrasound-guided thoracentesis yielding 250 mL of yellow fluid. Chest X-Ray 11/11/24 08:57 IMPRESSION: 1. No significant change. 2. Pleural effusions with bibasilar atelectasis and/or airspace disease. 3. No pneumothorax. Labs Labs: Laboratory Results - last 24 hr 11/13/24 11/13/24 11/14/24 11:55 17:57 04:49 WBC 20.4 H RBC 3.42 L Hgb 10.7 L Hct 31.0 L MCV 90.6 MCH 31.3 MCHC 34.5 RDW 13.3 Plt Count 360 MPV 9.1 Immature Gran % (Auto) 3.2 H Neut % (Auto) 85.7 H Lymph % (Auto) 5.9 L Avery % (Auto) 4.8 Eos % (Auto) 0.2 Baso % (Auto) 0.2 Lymph # (Auto) 1.20 Avery # (Auto) 1.0 H Eos # (Auto) 0.0 Baso # (Auto) 0.1 Abs Immat Gran (auto) 0.66 H Absolute Neuts (auto) 17.5 H Absolute Nucleated RBC 0.000 Nucleated RBC % 0.0 APTT 80.1 H 77.4 H 72.4 H Sodium 121 L Potassium 3.3 L Chloride 91 L Carbon Dioxide 21 L Anion Gap 9 BUN 56 H Creatinine 2.23 H Estim Creat Clear Calc 19 Estimated GFR 21 L Glucose 104 Calcium 7.4 L Phosphorus 4.3 Magnesium 1.5 L Total Bilirubin 0.4 AST 25 ALT 14 Alkaline Phosphatase 86 Total Protein 4.7 L Albumin 2.3 L Procalcitonin 0.6
[2024-11-14] MEDS: EPOETIN ALFA-EPBX 10,000 UNITS/ML VIAL 10000 UNITS IV PUSH (11:49)
--- NOTE | 2024-11-14 14:47 | PCPTNOTE ---
Patient returned fr4om dialysis this afternoon and PT treateament attempted. Patient declined PT stating she was exhausted and too fatigued to participate. PT will continue to follow.
--- NOTE | 2024-11-14 17:31 | PM.IMPN ---
Progress Note: A&P Assessment and Plan (1) Hypertension: Code(s): I10 - Essential (primary) hypertension Status: Chronic (2) Elevated troponin: Code(s): R79.89 - Other specified abnormal findings of blood chemistry Status: Acute (3) Atrial flutter: Code(s): I48.92 - Unspecified atrial flutter Status: Acute (4) Pancolitis: Code(s): K52.9 - Noninfective gastroenteritis and colitis, unspecified Status: Acute (5) Acute kidney injury: Code(s): N17.9 - Acute kidney failure, unspecified Status: Acute (6) Metabolic acidosis: Code(s): E87.20 - Acidosis, unspecified Status: Acute (7) Acute hypoxic respiratory failure: Code(s): J96.01 - Acute respiratory failure with hypoxia Status: Acute (8) Pleural effusion: Code(s): J90 - Pleural effusion, not elsewhere classified Status: Acute (9) Clostridium difficile colitis: Code(s): A04.72 - Enterocolitis due to Clostridium difficile, not specified as recurrent Status: Acute Plan 78-year-old female with past medical history of hypertension, class 1 obesity, presents the hospital with acute abdominal pain. Patient presented to the emergency room on 11/01/2021 and diagnosed with diverticulitis without abscess and sent home with p.o. antibiotics. Patient complains of explosive diarrhea and abdominal pain, denied nausea or vomiting. Lab work in the ED shows leukocytosis at 21.8 sodium of 123, chloride 91, carbon dioxide 17, anion gap of 15, BUN of 31, creatinine of 3.30 with baseline being 0.99, GFR 15, glucose 241, calcium 7.9, CT abdomen pelvis show Interval progression of radiographically uncomplicated selby colitis which could be infectious, inflammatory or less likely ischemic in etiology. 11/14/2024 update: Patient continues to improve, still having green watery diarrhea through the rectal tube. White count curve is starting to come down. Continue metronidazole and vancomycin. Dialysis today with Nephrology. Pleural fluid culture negative. Continue to follow. Clostridium difficulty associated colitis: Started vancomycin 500 mg p.o. q.6 hours on 11/06/2024, metronidazole 500 mg IV q.8 hours on 11/08/2024 Appreciate ID recommendations Zosyn discontinued Leukocytosis persistent, procalcitonin 1.8, however she remains afebrile and clinically she is improving. Will continue with current management appreciate any further ID recommendations. Patient reporting no abdominal pain but feels as if she is having diarrhea. Rectal tube bag only has about 20 cc of liquid green stool. Unclear when the bag was changed or home which has been emptied. I spoke with the patient's nurse and [employer] and they will update me later today about the output. Acute kidney injury/hyponatremia/metabolic acidosis: Infection vs Contrast related injury vs prerenal. Creatinine normal 2 days prior to admission Nephrology is following, right IJ Cecil dialysis catheter placed on 11/10/2024. Dialysis started on 11/10/2024. Again on 11/11/2024, likely dialysis today. Renal ultrasound without obstruction, urine electrolytes pre renal, urine eosinophils negative, CPK normal, mild proteinuria Holding lisinopril and spironolactone Holland catheter in place Follow renal function labs and urine output Disposition pending. Atrial flutter/hypertension/hyperlipidemia: New diagnosis, now converted to sinus rhythm. Continue metoprolol 50 mg p.o. b.i.d.. Digoxin stopped due to renal failure Keep potassium greater than 4 magnesium greater than 2, keep renal failure in consideration. Lisinopril and spironolactone on hold. Amlodipine on hold to allow titration of beta-christine [employer] simvastatin on hold. Continue monitoring blood pressure. on telemetry. Was started on Eliquis, temporarily discontinued and replaced with heparin GTT due to unknown disposition of dialysis and return of renal function. Acute hypoxic respiratory failure: Pulmonology consulted. Less likely pneumonia, pneumonia specific antibiotics discontinued. Status post thoracentesis on 11/08/2024 showing exudative effusion, not infectious, macrophage predominant, likely related to colitis/fluid overload related to acute kidney injury. Echocardiogram on 10/08 demonstrating normal left ventricular function. EZ Pap started for bilateral atelectasis. She is not mobile. Encouraged to work with therapy. Weaned to room air on 11/13/2024 Anxiety: Continue with home Xanax Resume [employer] trazodone 50 mg p.o. q.h.s. Full code Saline lock IV Rectal tube in place Holland catheter in place Continue dialysis per Nephrology Heparin GTT Heart healthy, renal dialysis diet Disposition pending: Continue PT/OT evaluations and sessions Time Spent With Patient Time with patient: Greater than 35 minutes Subjective Date/time seen: 11/14/24 17:31 Interval history: No major acute overnight events. About 200 cc through the rectal tube today, still very green and watery. Patient has no symptomatology to report. Review of Systems Review of Systems: All systems reviewed & are unremarkable except as noted in HPI and below (Subjective) Exam Const: General: comfortable and no acute distress HENMT: Mouth: Yes dry mucous membranes Eyes: Pupils: Equal, round and reactive pupils present Neck: Neck: supple Resp: Effort & Inspection: normal respiratory effort Other: Scant crackles Cardio: Rate: regular rate Rhythm: regular rhythm GI: GI Palp: No Tenderness to palpation present (GI) and No Guarding due to palpation present (GI) Other: Mild distension but soft Neuro: Motor exam (neuro): 5/5 motor strength present throughout Extrem: Other: Trace pitting edema bilateral lower extremities Objective Data Vital Signs Vital Signs: Vital Signs - 24 hr 11/13/24 17:55 11/13/24 20:00 11/13/24 20:05 Temperature 98.3 F Pulse Rate 61 62 62 Respiratory Rate 16 16 Blood Pressure 147/55 H Pulse Oximetry 92 92 Oxygen Delivery Room Air Fraction of Inspired Oxygen 70 11/14/24 04:28 11/14/24 09:20 11/14/24 09:21 Temperature 98.0 F Pulse Rate 63 70 Respiratory Rate 16 Blood Pressure 151/52 H Pulse Oximetry 92 Oxygen Delivery Room Air Fraction of Inspired Oxygen 11/14/24 10:03 11/14/24 10:10 11/14/24 10:15 Temperature 98.1 F Pulse Rate 71 70 68 Respiratory Rate 16 Blood Pressure 178/68 H 167/65 H 153/64 H Pulse Oximetry 93 Oxygen Delivery Fraction of Inspired Oxygen 11/14/24 10:30 11/14/24 10:45 11/14/24 11:00 Temperature Pulse Rate 70 70 72 Respiratory Rate Blood Pressure 136/66 139/70 134/67 Pulse Oximetry Oxygen Delivery Fraction of Inspired Oxygen 11/14/24 11:15 11/14/24 11:30 11/14/24 11:45 Temperature Pulse Rate 71 70 67 Respiratory Rate Blood Pressure 134/68 106/56 L 111/58 L Pulse Oximetry Oxygen Delivery Fraction of Inspired Oxygen 11/14/24 12:00 11/14/24 12:15 11/14/24 12:30 Temperature Pulse Rate 65 65 71 Respiratory Rate Blood Pressure 121/63 127/63 147/67 H Pulse Oximetry Oxygen Delivery Fraction of Inspired Oxygen 11/14/24 12:45 11/14/24 13:00 11/14/24 13:15 Temperature Pulse Rate 71 68 72 Respiratory Rate Blood Pressure 111/69 130/59 L 116/65 Pulse Oximetry Oxygen Delivery Fraction of Inspired Oxygen 11/14/24 13:30 11/14/24 13:45 11/14/24 13:55 Temperature 97.7 F Pulse Rate 71 73 75 Respiratory Rate 16 Blood Pressure 147/69 H 139/67 172/67 H Pulse Oximetry 94 Oxygen Delivery Fraction of Inspired Oxygen 11/14/24 14:00 Temperature 98.3 F Pulse Rate 70 Respiratory Rate 20 Blood Pressure 145/43 H Pulse Oximetry 90 Oxygen Delivery Fraction of Inspired Oxygen Intake/Output Intake/Output: Intake & Output 11/11/24 11/12/24 11/13/24 11/14/24 23:59 23:59 23:59 23:59 Intake Total 1760 1500.2 1600.1 878.3 Output Total 1900 624 834 1971 Balance -140 1000.2 1125.1 -1421.7 Meds/Results Medications: Active Medications Generic Name Dose Route Start Last Admin Trade Name Freq PRN Reason Stop Dose Admin Acetaminophen 650 mg 11/06/24 12:18 11/09/24 13:38 Acetaminophen 325 Mg Tablet PO 650 mg Q4H PRN Administration Headache Alprazolam 0.25 mg 11/11/24 06:34 11/14/24 10:44 Alprazolam (*Crx) 0.25 Mg Tablet PO 0.25 mg WITH DIALYSIS PRN Administration Anxiety Alteplase, Recombinant 2 mg 11/11/24 21:39 11/11/24 22:17 Alteplase 2 Mg Vial (Cathflo) IV PUSH 2 mg ONCE PRN Administration Line Occlusion Cyclosporine 1 drop 11/03/24 21:00 11/14/24 09:21 Cyclosporine 0.4 Ml Ophth Solution EACH EYE 1 drop Q12HR KEVIN Administration Heparin Sodium (Porcine) 5,000 units 11/11/24 16:29 Heparin Sodium 5,000 Units/Ml Vial IV PUSH PRN PRN aPTT less than 55 seconds Heparin Sodium (Porcine) 2,500 units 11/11/24 16:29 Heparin Sodium 5,000 Units/Ml Vial IV PUSH PRN PRN aPTT 55 - 70 seconds Metronidazole 500 mg in 100 mls @ 100 mls/hr 11/08/24 13:00 11/14/24 15:22 Flagyl 500 Mg/Iso Soln 100 Ml IVPB Infused Q8HR KEVIN Infusion Albumin Human 50 mls @ 999 mls/hr 11/10/24 09:33 Albutein IVPB 12/10/24 09:32 Q10M PRN HYPOTENSION Heparin Sodium/Dextrose 25,000 units in 250 mls @ 7 mls/hr 11/11/24 16:30 11/14/24 06:01 Heparin Sodium/D5w 100 Units/Ml IV CONT 700 units/hr .Q24H KEVIN 7 mls/hr Protocol Titration 700 UNITS/HR Metoprolol Tartrate 50 mg 11/08/24 09:00 11/14/24 09:21 Metoprolol Tartrate 50 Mg Tab PO 50 mg BID KEVIN Administration Sodium Chloride 10 ml 11/06/24 22:00 11/14/24 14:22 Central Line Flush IV PUSH 10 ml Q8HR KEVIN Administration Sodium Chloride 10 ml 11/06/24 14:29 Central Line Flush IV PUSH PRN PRN with TPN bag changes Sodium Chloride 20 ml 11/06/24 14:29 Central Line Flush IV PUSH PRN PRN after blood draws Trazodone HCl 50 mg 11/03/24 21:00 11/13/24 21:22 Trazodone Hcl 50 Mg Tablet PO 50 mg QHS KEVIN Administration Vancomycin HCl 500 mg 11/06/24 08:15 11/14/24 14:21 Vancomycin Hcl 250 Mg Oral Capsule PO 500 mg Q6HR KEVIN Administration Radiology Results: ITS Impressions Abdomen/Pelvis CT 11/04/24 12:36 IMPRESSION: 1. No evidence of bowel perforation. 2. Persistent severe pancolitis. 3. New small scattered ascites. 4. New small pleural effusions and significant bibasilar atelectasis. Renal Ultrasound 11/04/24 19:07 Impression: Simple appearing left renal cyst. No significant medical renal disease or obstruction Abdomen X-Ray 11/05/24 16:02 Impression: 1. Findings concerning for small bowel obstruction. CT is suggested Chest/Abdomen/Pelvis CT 11/05/24 17:04 IMPRESSION: 1. Diffuse colitis detailed above, correlate for underlying pseudomembranous colitis. No perforation or abscess. Follow-up recommended to assess. 2. CHF with superimposed probable bronchopneumonia. 3. Incidental findings above. Contrast-enhanced MRI recommended Head CT 11/06/24 12:46 Impression: 1.No acute intracranial abnormality. Thoracentesis Ultrasound 11/08/24 11:36 IMPRESSION: 1. Successful ultrasound-guided thoracentesis yielding 250 mL of yellow fluid. Chest X-Ray 11/11/24 08:57 IMPRESSION: 1. No significant change. 2. Pleural effusions with bibasilar atelectasis and/or airspace disease. 3. No pneumothorax. Labs Labs: Laboratory Results - last 24 hr 11/13/24 11/14/24 17:57 04:49 WBC 20.4 H RBC 3.42 L Hgb 10.7 L Hct 31.0 L MCV 90.6 MCH 31.3 MCHC 34.5 RDW 13.3 Plt Count 360 MPV 9.1 Immature Gran % (Auto) 3.2 H Neut % (Auto) 85.7 H Lymph % (Auto) 5.9 L [place] % (Auto) 4.8 Eos % (Auto) 0.2 Baso % (Auto) 0.2 Lymph # (Auto) 1.20 [place] # (Auto) 1.0 H Eos # (Auto) 0.0 Baso # (Auto) 0.1 Abs Immat Gran (auto) 0.66 H Absolute Neuts (auto) 17.5 H Absolute Nucleated RBC 0.000 Nucleated RBC % 0.0 APTT 77.4 H 72.4 H Sodium 121 L Potassium 3.3 L Chloride 91 L Carbon Dioxide 21 L Anion Gap 9 BUN 56 H Creatinine 2.23 H Estim Creat Clear Calc 19 Estimated GFR 21 L Glucose 104 Calcium 7.4 L Phosphorus 4.3 Magnesium 1.5 L Total Bilirubin 0.4 AST 25 ALT 14 Alkaline Phosphatase 86 Total Protein 4.7 L Albumin 2.3 L Procalcitonin 0.6
[2024-11-15] VITALS (10 sets, daily range): BP systolic 142–150; BP diastolic 43–57; PULSE 61–71; RESP 16–18; TEMP 36.3–36.7; O2SAT 91–92
[2024-11-15] MEDS: VANCOMYCIN HCL 250 MG ORAL CAPSULE 500 MG PO ×4 (00:49→17:13)
[2024-11-15 05:30] LABS: Hematocrit 30.6 % (37.0-47.0); Hemoglobin 10.2 g/dL (12.0-15.0); Immature Granulocyte Percent A 3.0 % (0-0.5); Lymphocytes Absolute Auto 1.21 K/mm3 (0.9-3.2); Mean Corpuscular HGB Conc 33.3 g/dl (32-36); Mean Corpuscular Hemoglobin 30.7 pg (26-34); Mean Corpuscular Volume 92.2 fl (80-100); Nucleated Red Blood Cells Absolute Auto 0.020 K/mm3 (0.0-0.012); Nucleated Red Blood Cells Perc 0.1 % (0.0-0.2); Platelet Count Result 345 k/mm3 (150-375); Red Blood Count 3.32 M/mm3 (4.2-5.4); White Blood Count 21.0 K/mm3 (4.5-10.0)
[2024-11-15] MEDS: HEPARIN SOD/D5W 100 UNITS/ML 25,000 UNITS/250 ML BAG 7 UNITS IV CONT (05:40)
[2024-11-15] MEDS: metroNIDAZOLE 500 MG/ISO 100ML 500 MG/100 ML BAG 100 MG IVPB (05:41)
[2024-11-15] MEDS: CENTRAL LINE FLUSH 20 ML IV PUSH (05:42)
[2024-11-15] MEDS: CENTRAL LINE FLUSH 10 ML IV PUSH ×3 (05:42→21:57)
[2024-11-15 05:43] LABS: Anion Gap 7 mmol/L (4-12); Blood Urea Nitrogen 35 mg/dL (7-17); Calcium 7.5 mg/dL (8.4-10.2); Carbon Dioxide 23 mmol/L (22-30); Chloride 94 mmol/L (98-107); Estimated CRCL calculation 27 ml/min; Estimated Glomerular Filt Rate 33; Glucose 115 mg/dL (65-110); Magnesium 1.6 mg/dL (1.6-2.3); Potassium 3.5 mmol/L (3.4-5.0); Sodium 124 mmol/L (137-145)
[2024-11-15 05:45] LABS: Partial Thromboplastin Time 90.8 Seconds (22.3-36.8)
[2024-11-15] MEDS: cycloSPORINE 0.4 ML OPHTH SOLUTION 1 DROP EACH EYE ×2 (09:00→21:57)
[2024-11-15] MEDS: METOPROLOL TARTRATE 50 MG TAB PO ×2 (09:01→17:12)
--- NOTE | 2024-11-15 09:24 | PM.PNCARD ---
Progress Note: A&P Assessment and Plan (1) Atrial flutter: Code(s): I48.92 - Unspecified atrial flutter Status: Acute Plan 78-year-old lady with: Atrial flutter with RVR occurring during the stress of acute infectious/inflammatory colitis. She did convert to sinus rhythm after about 48 hours of IV amiodarone. Now on metoprolol therapy no recurrent atrial arrhythmias thus far. I am going to stop her IV heparin infusion at this time. Will consider oral anticoagulation later/prior to discharge. Cale Romano MD [facility] Subjective Date/time seen: Date of service: 11/15/24 09:24 Interval history: Reason for encounter: A flutter with RVR Relevant history: 78-year-old female with history of hypertension, hyperlipidemia was admitted with abdominal pain secondary to colitis. Lab showed leukocytosis, hyponatremia, DONOVAN with creatinine of 3, elevated lactate, elevated troponin (0.132, 0.196,0.251, 0.310, 0.244). CT chest abdomen pelvis showed diffuse colitis, pulmonary edema, probable bronchopneumonia. She was started on IV antibiotics. She was noted to be in atrial flutter with 2:1 conduction with rates in the 150s and was started on Cardizem drip. Rates were not controlled and Cardiology was consulted for further recommendations. 11/15/2024: Patient remains in sinus rhythm assess is on telemetry now medical/telemetry floor. Still has IV heparin infusing. Continuing to be treated with antibiotics intravenously for C difficile colitis. . Exam Narrative: General: Alert oriented x3, no acute distress Neck: Supple, no JVD Chest: Decreased breath sounds at lung bases, clear to auscultation remaining lung anand, no rales or rhonchi Cardiac: S1, S2 +, regular rate, regular rhythm, no murmurs or rubs Extremities: Bilateral lower extremity edema 1+, no skin rash Neurologic: Alert and oriented x3, no focal neurological deficits Const: General: uncomfortable Other: Very pleasant lady appearing her stated age she is uncomfortable with abdominal discomfort no specific awareness of tachycardia HENMT: Mouth: Yes moist mucous membranes Eyes: Sclera: sclerae normal Neck: Neck: supple Resp: Effort & Inspection: normal respiratory effort Auscultation: clear to auscultation bilaterally Cardio: Rate: regular rate Rhythm: regular rhythm GI: GI Palp: Yes Soft to palpation Skin: General skin exam: normal color Neuro: Other: alert and oriented x3 Extrem: General: normal to inspection Objective Data Vital Signs Vital Signs: Vital Signs - 24 hr 11/14/24 10:03 11/14/24 10:10 11/14/24 10:15 Temperature 36.7 C Pulse Rate 71 70 68 Respiratory Rate 16 Blood Pressure 178/68 H 167/65 H 153/64 H Pulse Oximetry 93 Oxygen Delivery 11/14/24 10:30 11/14/24 10:45 11/14/24 11:00 Temperature Pulse Rate 70 70 72 Respiratory Rate Blood Pressure 136/66 139/70 134/67 Pulse Oximetry Oxygen Delivery 11/14/24 11:15 11/14/24 11:30 11/14/24 11:45 Temperature Pulse Rate 71 70 67 Respiratory Rate Blood Pressure 134/68 106/56 L 111/58 L Pulse Oximetry Oxygen Delivery 11/14/24 12:00 11/14/24 12:15 11/14/24 12:30 Temperature Pulse Rate 65 65 71 Respiratory Rate Blood Pressure 121/63 127/63 147/67 H Pulse Oximetry Oxygen Delivery 11/14/24 12:45 11/14/24 13:00 11/14/24 13:15 Temperature Pulse Rate 71 68 72 Respiratory Rate Blood Pressure 111/69 130/59 L 116/65 Pulse Oximetry Oxygen Delivery 11/14/24 13:30 11/14/24 13:45 11/14/24 13:55 Temperature 36.5 C Pulse Rate 71 73 75 Respiratory Rate 16 Blood Pressure 147/69 H 139/67 172/67 H Pulse Oximetry 94 Oxygen Delivery 11/14/24 14:00 11/14/24 17:56 11/14/24 20:00 Temperature 36.8 C Pulse Rate 70 70 Respiratory Rate 20 Blood Pressure 145/43 H Pulse Oximetry 90 Oxygen Delivery Room Air 11/14/24 20:12 11/15/24 04:00 11/15/24 04:03 Temperature 36.4 C L 36.6 C Pulse Rate 69 64 65 Respiratory Rate 16 16 Blood Pressure 152/46 H 147/43 H Pulse Oximetry 90 91 Oxygen Delivery 11/15/24 09:01 Temperature Pulse Rate 68 Respiratory Rate Blood Pressure Pulse Oximetry Oxygen Delivery Intake/Output Intake/Output: Intake & Output 11/12/24 11/13/24 11/14/24 11/15/24 23:59 23:59 23:59 23:59 Intake Total 1500.2 1600.1 1098.3 517.9 Output Total 462 446 1815 450 Balance 1000.2 1125.1 -1201.7 67.9 Meds/Results Medications: Active Medications Generic Name Dose Route Start Last Admin Trade Name Freq PRN Reason Stop Dose Admin Acetaminophen 650 mg 11/06/24 12:18 11/09/24 13:38 Acetaminophen 325 Mg Tablet PO 650 mg Q4H PRN Administration Headache Alprazolam 0.25 mg 11/11/24 06:34 11/14/24 10:44 Alprazolam (*Crx) 0.25 Mg Tablet PO 0.25 mg WITH DIALYSIS PRN Administration Anxiety Alteplase, Recombinant 2 mg 11/11/24 21:39 11/11/24 22:17 Alteplase 2 Mg Vial (Cathflo) IV PUSH 2 mg ONCE PRN Administration Line Occlusion Cyclosporine 1 drop 11/03/24 21:00 11/15/24 09:00 Cyclosporine 0.4 Ml Ophth Solution EACH EYE 1 drop Q12HR KEVIN Administration Metronidazole 500 mg in 100 mls @ 100 mls/hr 11/08/24 13:00 11/15/24 05:41 Flagyl 500 Mg/Iso Soln 100 Ml IVPB 100 mls/hr Q8HR KEVIN Administration Albumin Human 50 mls @ 999 mls/hr 11/10/24 09:33 Albutein IVPB 12/10/24 09:32 Q10M PRN HYPOTENSION Metoprolol Tartrate 50 mg 11/08/24 09:00 11/15/24 09:01 Metoprolol Tartrate 50 Mg Tab PO 50 mg BID KEVIN Administration Sodium Chloride 10 ml 11/06/24 22:00 11/15/24 05:42 Central Line Flush IV PUSH 10 ml Q8HR KEVIN Administration Sodium Chloride 10 ml 11/06/24 14:29 Central Line Flush IV PUSH PRN PRN with TPN bag changes Sodium Chloride 20 ml 11/06/24 14:29 11/15/24 05:42 Central Line Flush IV PUSH 20 ml PRN PRN Administration after blood draws Trazodone HCl 50 mg 11/03/24 21:00 11/14/24 22:16 Trazodone Hcl 50 Mg Tablet PO 50 mg QHS KEVIN Administration Vancomycin HCl 500 mg 11/06/24 08:15 11/15/24 05:27 Vancomycin Hcl 250 Mg Oral Capsule PO 500 mg Q6HR KEVIN Administration Radiology Results: ITS Impressions Abdomen/Pelvis CT 11/04/24 12:36 IMPRESSION: 1. No evidence of bowel perforation. 2. Persistent severe pancolitis. 3. New small scattered ascites. 4. New small pleural effusions and significant bibasilar atelectasis. Renal Ultrasound 11/04/24 19:07 Impression: Simple appearing left renal cyst. No significant medical renal disease or obstruction Abdomen X-Ray 11/05/24 16:02 Impression: 1. Findings concerning for small bowel obstruction. CT is suggested Chest/Abdomen/Pelvis CT 11/05/24 17:04 IMPRESSION: 1. Diffuse colitis detailed above, correlate for underlying pseudomembranous colitis. No perforation or abscess. Follow-up recommended to assess. 2. CHF with superimposed probable bronchopneumonia. 3. Incidental findings above. Contrast-enhanced MRI recommended Head CT 11/06/24 12:46 Impression: 1.No acute intracranial abnormality. Thoracentesis Ultrasound 11/08/24 11:36 IMPRESSION: 1. Successful ultrasound-guided thoracentesis yielding 250 mL of yellow fluid. Chest X-Ray 11/11/24 08:57 IMPRESSION: 1. No significant change. 2. Pleural effusions with bibasilar atelectasis and/or airspace disease. 3. No pneumothorax. Labs Labs: Laboratory Results - last 24 hr 11/15/24 05:24 WBC 21.0 H RBC 3.32 L Hgb 10.2 L Hct 30.6 L MCV 92.2 MCH 30.7 MCHC 33.3 RDW 13.5 Plt Count 345 MPV 9.4 Immature Gran % (Auto) 3.0 H Neut % (Auto) 85.5 H Lymph % (Auto) 5.8 L [place] % (Auto) 5.4 Eos % (Auto) 0.0 Baso % (Auto) 0.3 Lymph # (Auto) 1.21 [place] # (Auto) 1.1 H Eos # (Auto) 0.0 Baso # (Auto) 0.1 Abs Immat Gran (auto) 0.63 H Absolute Neuts (auto) 18.0 H Absolute Nucleated RBC 0.020 H Nucleated RBC % 0.1 APTT 90.8 H Sodium 124 L Potassium 3.5 Chloride 94 L Carbon Dioxide 23 Anion Gap 7 BUN 35 H D Creatinine 1.54 H Estim Creat Clear Calc 27 Estimated GFR 33 L Glucose 115 H Calcium 7.5 L Magnesium 1.6
--- NOTE | 2024-11-15 10:37 | P.PNINF_ITS ---
Progress Note: A&P Assessment and Plan (1) Clostridium difficile colitis: Code(s): A04.72 - Enterocolitis due to Clostridium difficile, not specified as recurrent Status: Acute Assessment and Plan: -Severe C.difficile colitis is improving -Continue to have some diarrhea but abdominal pain has resolved (2) Leukocytosis: Code(s): D72.829 - Elevated white blood cell count, unspecified Status: Acute Assessment and Plan: -Reactive from C.difficile infection -Continue to monitor (3) Diverticulitis large intestine: Code(s): K57.32 - Diverticulitis of large intestine without perforation or abscess witho ut bleeding Status: Acute Assessment and Plan: -Diagnosed one week prior to admission -S/P Augmentin x 5 days prior to admission -Discontinued Zosyn on 11/10/24 as patient has completed 8 day course for diverticulitis (4) Colitis: Code(s): K52.9 - Noninfective gastroenteritis and colitis, unspecified Status: Acute Assessment and Plan: -Pancolitis noted on CT -Due to C.difficile colitis (5) Acute kidney injury: Code(s): N17.9 - Acute kidney failure, unspecified Status: Acute Assessment and Plan: -Management as per Nephrology service -Plans for short-term HD (6) Pleural effusion: Code(s): J90 - Pleural effusion, not elsewhere classified Status: Acute Assessment and Plan: -S/P Left thoracentesis 11/08/24 -Pleural fluid studies not consistent with empyema -Await pleural fluid cultures negative for growth -Management as per Pulmonary service Plan -Continue enteral Vancomycin for treatment of C.difficile colitis; will start tapering to Vancomycin 250mg po Q6hrs on 11/16/24 -Completed empiric course of metronidazole IV on 11/14/24 -Follow off other systemic antimicrobials -Follow CBC and renal function Antimicrobial plan of care discussed with patient. All questions answered Patient was seen via video telehealth consultation with the assistance of staff. Chart, data, and patient independently reviewed. Patient was located at [facility] while I was located in my [place] office. Received verbal consent from patient. Subjective Date/time seen: 11/15/24 10:37 Interval history: Patient afebrile. She's sitting up in chair and eating lunch. Appetite improving. Diarrhea has slowed down. Rectal tube removed earlier today. Patient denies abdominal pain. Review of Systems Review of Systems: All systems reviewed & are unremarkable except as noted in HPI and below Exam Narrative: Gen: A&Ox3 Pulm: minimal conversational dyspnea Derm: no rash Abd: decreased distension, no TTP with palpation and no guarding/rebound TTP Lines: RUE PICC intact Objective Data Vital Signs Vital Signs: Vital Signs - 24 hr 11/14/24 10:45 11/14/24 11:00 11/14/24 11:15 Temperature Pulse Rate 70 72 71 Respiratory Rate Blood Pressure 139/70 134/67 134/68 Pulse Oximetry Oxygen Delivery 11/14/24 11:30 11/14/24 11:45 11/14/24 12:00 Temperature Pulse Rate 70 67 65 Respiratory Rate Blood Pressure 106/56 L 111/58 L 121/63 Pulse Oximetry Oxygen Delivery 11/14/24 12:15 11/14/24 12:30 11/14/24 12:45 Temperature Pulse Rate 65 71 71 Respiratory Rate Blood Pressure 127/63 147/67 H 111/69 Pulse Oximetry Oxygen Delivery 11/14/24 13:00 11/14/24 13:15 11/14/24 13:30 Temperature Pulse Rate 68 72 71 Respiratory Rate Blood Pressure 130/59 L 116/65 147/69 H Pulse Oximetry Oxygen Delivery 11/14/24 13:45 11/14/24 13:55 11/14/24 14:00 Temperature 97.7 F 98.3 F Pulse Rate 73 75 70 Respiratory Rate 16 20 Blood Pressure 139/67 172/67 H 145/43 H Pulse Oximetry 94 90 Oxygen Delivery 11/14/24 17:56 11/14/24 20:00 11/14/24 20:12 Temperature 97.5 F L Pulse Rate 70 69 Respiratory Rate 16 Blood Pressure 152/46 H Pulse Oximetry 90 Oxygen Delivery Room Air 11/15/24 04:00 11/15/24 04:03 11/15/24 09:01 Temperature 97.9 F Pulse Rate 64 65 68 Respiratory Rate 16 Blood Pressure 147/43 H Pulse Oximetry 91 Oxygen Delivery Intake/Output Intake/Output: Intake & Output 11/12/24 11/13/24 11/14/24 11/15/24 23:59 23:59 23:59 23:59 Intake Total 1500.2 1600.1 1098.3 517.9 Output Total 210 429 9019 450 Balance 1000.2 1125.1 -1201.7 67.9 Meds/Results Medications: Active Medications Generic Name Dose Route Start Last Admin Trade Name Walter PRN Reason Stop Dose Admin Acetaminophen 650 mg 11/06/24 12:18 11/09/24 13:38 Acetaminophen 325 Mg Tablet PO 650 mg Q4H PRN Administration Headache Alprazolam 0.25 mg 11/11/24 06:34 11/14/24 10:44 Alprazolam (*Crx) 0.25 Mg Tablet PO 0.25 mg WITH DIALYSIS PRN Administration Anxiety Alteplase, Recombinant 2 mg 11/11/24 21:39 11/11/24 22:17 Alteplase 2 Mg Vial (Cathflo) IV PUSH 2 mg ONCE PRN Administration Line Occlusion Cyclosporine 1 drop 11/03/24 21:00 11/15/24 09:00 Cyclosporine 0.4 Ml Ophth Solution EACH EYE 1 drop Q12HR KEVIN Administration Albumin Human 50 mls @ 999 mls/hr 11/10/24 09:33 Albutein IVPB 12/10/24 09:32 Q10M PRN HYPOTENSION Metoprolol Tartrate 50 mg 11/08/24 09:00 11/15/24 09:01 Metoprolol Tartrate 50 Mg Tab PO 50 mg BID KEVIN Administration Sodium Chloride 10 ml 11/06/24 22:00 11/15/24 05:42 Central Line Flush IV PUSH 10 ml Q8HR KEVIN Administration Sodium Chloride 10 ml 11/06/24 14:29 Central Line Flush IV PUSH PRN PRN with TPN bag changes Sodium Chloride 20 ml 11/06/24 14:29 11/15/24 05:42 Central Line Flush IV PUSH 20 ml PRN PRN Administration after blood draws Trazodone HCl 50 mg 11/03/24 21:00 11/14/24 22:16 Trazodone Hcl 50 Mg Tablet PO 50 mg QHS KEVIN Administration Vancomycin HCl 500 mg 11/06/24 08:15 11/15/24 05:27 Vancomycin Hcl 250 Mg Oral Capsule PO 500 mg Q6HR KEVIN Administration Radiology Results: ITS Impressions Abdomen/Pelvis CT 11/04/24 12:36 IMPRESSION: 1. No evidence of bowel perforation. 2. Persistent severe pancolitis. 3. New small scattered ascites. 4. New small pleural effusions and significant bibasilar atelectasis. Renal Ultrasound 11/04/24 19:07 Impression: Simple appearing left renal cyst. No significant medical renal disease or obstruction Abdomen X-Ray 11/05/24 16:02 Impression: 1. Findings concerning for small bowel obstruction. CT is suggested Chest/Abdomen/Pelvis CT 11/05/24 17:04 IMPRESSION: 1. Diffuse colitis detailed above, correlate for underlying pseudomembranous colitis. No perforation or abscess. Follow-up recommended to assess. 2. CHF with superimposed probable bronchopneumonia. 3. Incidental findings above. Contrast-enhanced MRI recommended Head CT 11/06/24 12:46 Impression: 1.No acute intracranial abnormality. Thoracentesis Ultrasound 11/08/24 11:36 IMPRESSION: 1. Successful ultrasound-guided thoracentesis yielding 250 mL of yellow fluid. Chest X-Ray 11/11/24 08:57 IMPRESSION: 1. No significant change. 2. Pleural effusions with bibasilar atelectasis and/or airspace disease. 3. No pneumothorax. Labs Labs: Laboratory Results - last 24 hr 11/15/24 05:24 WBC 21.0 H RBC 3.32 L Hgb 10.2 L Hct 30.6 L MCV 92.2 MCH 30.7 MCHC 33.3 RDW 13.5 Plt Count 345 MPV 9.4 Immature Gran % (Auto) 3.0 H Neut % (Auto) 85.5 H Lymph % (Auto) 5.8 L [place] % (Auto) 5.4 Eos % (Auto) 0.0 Baso % (Auto) 0.3 Lymph # (Auto) 1.21 [place] # (Auto) 1.1 H Eos # (Auto) 0.0 Baso # (Auto) 0.1 Abs Immat Gran (auto) 0.63 H Absolute Neuts (auto) 18.0 H Absolute Nucleated RBC 0.020 H Nucleated RBC % 0.1 APTT 90.8 H Sodium 124 L Potassium 3.5 Chloride 94 L Carbon Dioxide 23 Anion Gap 7 BUN 35 H D Creatinine 1.54 H Estim Creat Clear Calc 27 Estimated GFR 33 L Glucose 115 H Calcium 7.5 L Magnesium 1.6
--- NOTE | 2024-11-15 14:24 | P.PNNP_ITS ---
Progress Note: A&P Assessment and Plan (1) Acute kidney injury: Code(s): N17.9 - Acute kidney failure, unspecified Status: Acute Assessment and Plan: * as noted by admission labs (creatinine of 3.03mg/dL) * creatinine normal 2 days prior to admission * baseline creatinine runs ~ 0.9 - 1.1mg/dL * suspect multifactorial etiology: * prerenal factors * infection/early sepsis (diverticulitis/colitis) * contrast exposure (CT of A/P on 11/01) * relative hypotension on presentation * JAMIE-I/diuretic use prior to admission * urinary retention(?) - difficulty urinating on admission so gamble catheter placed * other (?) * off IVFs due to concerns for volume overload * evaluation to date noted: * renal ultrasound without obstruction * urine electrolytes prerenal * urine eosinophils negative * CPK normal * mild proteinuria * holding lisinopril and spironolactone * initiated on TEAM COORDINATOR/HD on 11/10 * HD yesterday -- next treatment possibly tomorrow * relative stability in creatinine * slightly better urine output * possible recovery??? * follow trend of repeat labs and UOP (2) Clostridium difficile colitis: Code(s): A04.72 - Enterocolitis due to Clostridium difficile, not specified as recurrent Status: Acute Assessment and Plan: * demonstrated by positive C. diff toxin assay * also noted by CT imaging to date: * CT of C/A/P (11/05): Diffuse colitis detailed above, correlate for underlying pseudomembranous colitis. No perforation or abscess * CT of A/P (11/04): No evidence of bowel perforation; persistent severe pancolitis * CT of A/P (11/03): Interval progression of radiographically uncomplicated selby colitis which could be infectious, inflammatory or less likely ischemic in etiology * CT of A/P (11/01): Sigmoid diverticulitis. No perforation or abscess * complicated by diverticulitis * follow culture data * follow trend of WBC * on antibiotics * Infectious Disease following (3) Acute hypoxic respiratory failure: Code(s): J96.01 - Acute respiratory failure with hypoxia Status: Acute Assessment and Plan: * improvement noted * multifactorial etiology: * bilateral pleural effusions * atelectasis * fluid overload * atrial flutter with rapid ventricular response * pancolitis * possible pneumonia (?) * s/p thoracentesis (on 11/08) * Pulmonary following with recommendations noted * fluid removal with dialysis as tolerated * follow respiratory status (4) Metabolic acidosis: Code(s): E87.20 - Acidosis, unspecified Status: Acute Assessment and Plan: * due to DONOVAN/ARF and GI issues/symptoms * fluctuating lactic acid levels noted * dialysis should help correct * follow repeat labs (5) Hyponatremia: Code(s): E87.1 - Hypo-osmolality and hyponatremia Status: Acute Assessment and Plan: * as noted on admission * possible chronic component -- sodium seems to run 129 - 136mmol/L since 2021 * presumably worsen by: * DONOVAN/ARF * prerenal factors * pleural effusions * possible pneumonia * urinary retention * mild improvement s/p IVF resuscitation * should correct to some degree with dialysis * follow trend of sodium (6) Atrial flutter: Code(s): I48.92 - Unspecified atrial flutter Status: Acute Assessment and Plan: * as noted by events early on 11/05 * rate control strategy * Cardiology recommendations noted * on metoprolol * was on IV amiodarone (temporary measure) * Echo noted (on 11/07) * left ventricular systolic function is hyperdynamic, estimated at > 70% * left ventricular diastolic function is grade I diastolic dysfunction * no aortic valve stenosis * mild tricuspid valve regurgitation * on anticoagulation (7) Elevated troponin: Code(s): R79.89 - Other specified abnormal findings of blood chemistry Status: Acute Assessment and Plan: * due to DONOVAN versus atrial fluttter with RVR * trend noted * Cardiology already following (8) Hypertension: Code(s): I10 - Essential (primary) hypertension Status: Chronic Assessment and Plan: * reasonable control * holding JAMIE-I and diuretics due to #1 * follow trend of hemodynamics Will continue to follow. L Subjective Date/time seen: 11/15/24 14:24 Interval history: Follow-up for acute kidney injury/acute renal failure. Tolerated dialysis treatment yesterday without any issue or problems; swelling/edema seems to be doing better; still making some urine output despit need for dialysis/TEAM COORDINATOR; she states her stools seem to be more formed at this time; no other events overnight or earlier this morning. Exam 2 Narrative: General: elderly but WD/WN female in NAD Heart: RRR, normal S1 and S2; no rub Lungs: coarse and decreased at bases Abdomen: soft, nontender, positive bowel sounds Extremities: no cyanosis or clubbing; trace edema Skin: warm and intact Objective Data Vital Signs Vital Signs: Vital Signs Temp Pulse Resp BP Pulse Ox O2 Del Method 11/15/24 14:00 98.1 F 71 18 142/57 H 92 11/15/24 12:00 66 11/15/24 09:01 68 11/15/24 08:00 66 11/15/24 04:03 97.9 F 65 16 147/43 H 91 11/15/24 04:00 64 11/14/24 20:12 97.5 F L 69 16 152/46 H 90 11/14/24 20:00 Room Air Intake/Output Intake/Output: Intake & Output 11/12/24 11/13/24 11/14/24 11/15/24 23:59 23:59 23:59 23:59 Intake Total 1500.2 1600.1 1098.3 717.9 Output Total 225 777 6374 700 Balance 1000.2 1125.1 -1201.7 17.9 Meds/Results Medications: Active Medications Generic Name Dose Route Start Last Admin Trade Name Freq PRN Reason Stop Dose Admin Acetaminophen 650 mg 11/06/24 12:18 11/09/24 13:38 Acetaminophen 325 Mg Tablet PO 650 mg Q4H PRN Administration Headache Alprazolam 0.25 mg 11/11/24 06:34 11/14/24 10:44 Alprazolam (*Crx) 0.25 Mg Tablet PO 0.25 mg WITH DIALYSIS PRN Administration Anxiety Alteplase, Recombinant 2 mg 11/11/24 21:39 11/11/24 22:17 Alteplase 2 Mg Vial (Cathflo) IV PUSH 2 mg ONCE PRN Administration Line Occlusion Apixaban 2.5 mg 11/15/24 21:00 Apixaban 2.5 Mg Tablet PO Q12HR KEVIN Cyclosporine 1 drop 11/03/24 21:00 11/15/24 09:00 Cyclosporine 0.4 Ml Ophth Solution EACH EYE 1 drop Q12HR KEVIN Administration Albumin Human 50 mls @ 999 mls/hr 11/10/24 09:33 Albutein IVPB 12/10/24 09:32 Q10M PRN HYPOTENSION Metoprolol Tartrate 50 mg 11/08/24 09:00 11/15/24 17:12 Metoprolol Tartrate 50 Mg Tab PO 50 mg BID KEVIN Administration Sodium Chloride 10 ml 11/06/24 22:00 11/15/24 14:53 Central Line Flush IV PUSH 10 ml Q8HR KEVIN Administration Sodium Chloride 10 ml 11/06/24 14:29 Central Line Flush IV PUSH PRN PRN with TPN bag changes Sodium Chloride 20 ml 11/06/24 14:29 11/15/24 05:42 Central Line Flush IV PUSH 20 ml PRN PRN Administration after blood draws Sodium Chloride 1 spray 11/15/24 16:13 11/15/24 17:13 Saline 0.65% Rodrigo Soln 44 Ml Btl NASAL 1 spray Q6HR PRN Administration Congestion Trazodone HCl 50 mg 11/03/24 21:00 11/14/24 22:16 Trazodone Hcl 50 Mg Tablet PO 50 mg QHS KEVIN Administration Vancomycin HCl 500 mg 11/06/24 08:15 11/15/24 17:13 Vancomycin Hcl 250 Mg Oral Capsule PO 11/16/24 00:01 500 mg Q6HR KEVIN Administration Vancomycin HCl 250 mg 11/16/24 06:00 Vancomycin Hcl 125 Mg Oral Capsule PO 11/30/24 00:01 Q6HR [facility] Vancomycin HCl 125 mg 11/30/24 06:00 Vancomycin Hcl 125 Mg Oral Capsule PO 12/14/24 00:01 Q6HR [facility] Vancomycin HCl 125 mg 12/14/24 09:00 Vancomycin Hcl 125 Mg Oral Capsule PO 12/27/24 21:01 Q12HR [facility] Vancomycin HCl 125 mg 12/28/24 09:00 Vancomycin Hcl 125 Mg Oral Capsule PO 01/10/25 09:01 DAILY [facility] Vancomycin HCl 125 mg 01/11/25 09:00 Vancomycin Hcl 125 Mg Oral Capsule PO 01/23/25 09:01 Q48HR [facility] Radiology Results: ITS Impressions Abdomen/Pelvis CT 11/04/24 12:36 IMPRESSION: 1. No evidence of bowel perforation. 2. Persistent severe pancolitis. 3. New small scattered ascites. 4. New small pleural effusions and significant bibasilar atelectasis. Renal Ultrasound 11/04/24 19:07 Impression: Simple appearing left renal cyst. No significant medical renal disease or obstruction Abdomen X-Ray 11/05/24 16:02 Impression: 1. Findings concerning for small bowel obstruction. CT is suggested Chest/Abdomen/Pelvis CT 11/05/24 17:04 IMPRESSION: 1. Diffuse colitis detailed above, correlate for underlying pseudomembranous colitis. No perforation or abscess. Follow-up recommended to assess. 2. CHF with superimposed probable bronchopneumonia. 3. Incidental findings above. Contrast-enhanced MRI recommended Head CT 11/06/24 12:46 Impression: 1.No acute intracranial abnormality. Thoracentesis Ultrasound 11/08/24 11:36 IMPRESSION: 1. Successful ultrasound-guided thoracentesis yielding 250 mL of yellow fluid. Chest X-Ray 11/11/24 08:57 IMPRESSION: 1. No significant change. 2. Pleural effusions with bibasilar atelectasis and/or airspace disease. 3. No pneumothorax. Labs Labs: Laboratory Tests 11/15/24 05:24 11/15/24 05:24 Glucose 115 H Calcium 7.5 L Magnesium 1.6
--- NOTE | 2024-11-15 14:24 | PM.PNNEP ---
Progress Note: A&P Assessment and Plan (1) Acute kidney injury: Code(s): N17.9 - Acute kidney failure, unspecified Status: Acute Assessment and Plan: as noted by admission labs (creatinine of 3.03mg/dL) creatinine normal 2 days prior to admission baseline creatinine runs ~ 0.9 - 1.1mg/dL suspect multifactorial etiology: prerenal factors infection/early sepsis (diverticulitis/colitis) contrast exposure (CT of A/P on 11/01) relative hypotension on presentation JAMIE-I/diuretic use prior to admission urinary retention(?) - difficulty urinating on admission so gamble catheter placed other (?) off IVFs due to concerns for volume overload evaluation to date noted: renal ultrasound without obstruction urine electrolytes prerenal urine eosinophils negative CPK normal mild proteinuria holding lisinopril and spironolactone initiated on POLICY ANALYST/HD on 11/10 HD yesterday -- next treatment possibly tomorrow relative stability in creatinine slightly better urine output possible recovery??? follow trend of repeat labs and UOP (2) Clostridium difficile colitis: Code(s): A04.72 - Enterocolitis due to Clostridium difficile, not specified as recurrent Status: Acute Assessment and Plan: demonstrated by positive C. diff toxin assay also noted by CT imaging to date: CT of C/A/P (11/05): Diffuse colitis detailed above, correlate for underlying pseudomembranous colitis. No perforation or abscess CT of A/P (11/04): No evidence of bowel perforation; persistent severe pancolitis CT of A/P (11/03): Interval progression of radiographically uncomplicated selby colitis which could be infectious, inflammatory or less likely ischemic in etiology CT of A/P (11/01): Sigmoid diverticulitis. No perforation or abscess complicated by diverticulitis follow culture data follow trend of WBC on antibiotics Infectious Disease following (3) Acute hypoxic respiratory failure: Code(s): J96.01 - Acute respiratory failure with hypoxia Status: Acute Assessment and Plan: improvement noted multifactorial etiology: bilateral pleural effusions atelectasis fluid overload atrial flutter with rapid ventricular response pancolitis possible pneumonia (?) s/p thoracentesis (on 11/08) Pulmonary following with recommendations noted fluid removal with dialysis as tolerated follow respiratory status (4) Metabolic acidosis: Code(s): E87.20 - Acidosis, unspecified Status: Acute Assessment and Plan: due to DONOVAN/ARF and GI issues/symptoms fluctuating lactic acid levels noted dialysis should help correct follow repeat labs (5) Hyponatremia: Code(s): E87.1 - Hypo-osmolality and hyponatremia Status: Acute Assessment and Plan: as noted on admission possible chronic component -- sodium seems to run 129 - 136mmol/L since 2021 presumably worsen by: DONOVAN/ARF prerenal factors pleural effusions possible pneumonia urinary retention mild improvement s/p IVF resuscitation should correct to some degree with dialysis follow trend of sodium (6) Atrial flutter: Code(s): I48.92 - Unspecified atrial flutter Status: Acute Assessment and Plan: as noted by events early on 11/05 rate control strategy Cardiology recommendations noted on metoprolol was on IV amiodarone (temporary measure) Echo noted (on 11/07) left ventricular systolic function is hyperdynamic, estimated at > 70% left ventricular diastolic function is grade I diastolic dysfunction no aortic valve stenosis mild tricuspid valve regurgitation on anticoagulation (7) Elevated troponin: Code(s): R79.89 - Other specified abnormal findings of blood chemistry Status: Acute Assessment and Plan: due to DONOVAN versus atrial fluttter with RVR trend noted Cardiology already following (8) Hypertension: Code(s): I10 - Essential (primary) hypertension Status: Chronic Assessment and Plan: reasonable control holding JAMIE-I and diuretics due to #1 follow trend of hemodynamics Will continue to follow. Subjective Date/time seen: 11/15/24 14:24 Interval history: Follow-up for acute kidney injury/acute renal failure. Tolerated dialysis treatment yesterday without any issue or problems; swelling/edema seems to be doing better; still making some urine output despit need for dialysis/POLICY ANALYST; she states her stools seem to be more formed at this time; no other events overnight or earlier this morning. Exam Narrative: General: elderly but WD/WN female in NAD Heart: RRR, normal S1 and S2; no rub Lungs: coarse and decreased at bases Abdomen: soft, nontender, positive bowel sounds Extremities: no cyanosis or clubbing; trace edema Skin: warm and intact Objective Data Vital Signs Vital Signs: Vital Signs Temp Pulse Resp BP Pulse Ox O2 Del Method 11/15/24 14:00 98.1 F 71 18 142/57 H 92 11/15/24 12:00 66 11/15/24 09:01 68 11/15/24 08:00 66 11/15/24 04:03 97.9 F 65 16 147/43 H 91 11/15/24 04:00 64 11/14/24 20:12 97.5 F L 69 16 152/46 H 90 11/14/24 20:00 Room Air Intake/Output Intake/Output: Intake & Output 11/12/24 11/13/24 11/14/24 11/15/24 23:59 23:59 23:59 23:59 Intake Total 1500.2 1600.1 1098.3 717.9 Output Total 854 427 4212 700 Balance 1000.2 1125.1 -1201.7 17.9 Meds/Results Medications: Active Medications Generic Name Dose Route Start Last Admin Trade Name Freq PRN Reason Stop Dose Admin Acetaminophen 650 mg 11/06/24 12:18 11/09/24 13:38 Acetaminophen 325 Mg Tablet PO 650 mg Q4H PRN Administration Headache Alprazolam 0.25 mg 11/11/24 06:34 11/14/24 10:44 Alprazolam (*Crx) 0.25 Mg Tablet PO 0.25 mg WITH DIALYSIS PRN Administration Anxiety Alteplase, Recombinant 2 mg 11/11/24 21:39 11/11/24 22:17 Alteplase 2 Mg Vial (Cathflo) IV PUSH 2 mg ONCE PRN Administration Line Occlusion Apixaban 2.5 mg 11/15/24 21:00 Apixaban 2.5 Mg Tablet PO Q12HR KEVIN Cyclosporine 1 drop 11/03/24 21:00 11/15/24 09:00 Cyclosporine 0.4 Ml Ophth Solution EACH EYE 1 drop Q12HR KEVIN Administration Albumin Human 50 mls @ 999 mls/hr 11/10/24 09:33 Albutein IVPB 12/10/24 09:32 Q10M PRN HYPOTENSION Metoprolol Tartrate 50 mg 11/08/24 09:00 11/15/24 17:12 Metoprolol Tartrate 50 Mg Tab PO 50 mg BID KEVIN Administration Sodium Chloride 10 ml 11/06/24 22:00 11/15/24 14:53 Central Line Flush IV PUSH 10 ml Q8HR KEVIN Administration Sodium Chloride 10 ml 11/06/24 14:29 Central Line Flush IV PUSH PRN PRN with TPN bag changes Sodium Chloride 20 ml 11/06/24 14:29 11/15/24 05:42 Central Line Flush IV PUSH 20 ml PRN PRN Administration after blood draws Sodium Chloride 1 spray 11/15/24 16:13 11/15/24 17:13 Saline 0.65% Rodrigo Soln 44 Ml Btl NASAL 1 spray Q6HR PRN Administration Congestion Trazodone HCl 50 mg 11/03/24 21:00 11/14/24 22:16 Trazodone Hcl 50 Mg Tablet PO 50 mg QHS KEVIN Administration Vancomycin HCl 500 mg 11/06/24 08:15 11/15/24 17:13 Vancomycin Hcl 250 Mg Oral Capsule PO 11/16/24 00:01 500 mg Q6HR KEVIN Administration Vancomycin HCl 250 mg 11/16/24 06:00 Vancomycin Hcl 125 Mg Oral Capsule PO 11/30/24 00:01 Q6HR [facility] Vancomycin HCl 125 mg 11/30/24 06:00 Vancomycin Hcl 125 Mg Oral Capsule PO 12/14/24 00:01 Q6HR [facility] Vancomycin HCl 125 mg 12/14/24 09:00 Vancomycin Hcl 125 Mg Oral Capsule PO 12/27/24 21:01 Q12HR [facility] Vancomycin HCl 125 mg 12/28/24 09:00 Vancomycin Hcl 125 Mg Oral Capsule PO 01/10/25 09:01 DAILY [facility] Vancomycin HCl 125 mg 01/11/25 09:00 Vancomycin Hcl 125 Mg Oral Capsule PO 01/23/25 09:01 Q48HR [facility] Radiology Results: ITS Impressions Abdomen/Pelvis CT 11/04/24 12:36 IMPRESSION: 1. No evidence of bowel perforation. 2. Persistent severe pancolitis. 3. New small scattered ascites. 4. New small pleural effusions and significant bibasilar atelectasis. Renal Ultrasound 11/04/24 19:07 Impression: Simple appearing left renal cyst. No significant medical renal disease or obstruction Abdomen X-Ray 11/05/24 16:02 Impression: 1. Findings concerning for small bowel obstruction. CT is suggested Chest/Abdomen/Pelvis CT 11/05/24 17:04 IMPRESSION: 1. Diffuse colitis detailed above, correlate for underlying pseudomembranous colitis. No perforation or abscess. Follow-up recommended to assess. 2. CHF with superimposed probable bronchopneumonia. 3. Incidental findings above. Contrast-enhanced MRI recommended Head CT 11/06/24 12:46 Impression: 1.No acute intracranial abnormality. Thoracentesis Ultrasound 11/08/24 11:36 IMPRESSION: 1. Successful ultrasound-guided thoracentesis yielding 250 mL of yellow fluid. Chest X-Ray 11/11/24 08:57 IMPRESSION: 1. No significant change. 2. Pleural effusions with bibasilar atelectasis and/or airspace disease. 3. No pneumothorax. Labs Labs: Laboratory Tests 11/15/24 05:24 11/15/24 05:24 Glucose 115 H Calcium 7.5 L Magnesium 1.6
--- NOTE | 2024-11-15 16:58 | P.PNIM_ITS ---
Progress Note: A&P Assessment and Plan (1) Hypertension: Code(s): I10 - Essential (primary) hypertension Status: Chronic (2) Elevated troponin: Code(s): R79.89 - Other specified abnormal findings of blood chemistry Status: Acute (3) Atrial flutter: Code(s): I48.92 - Unspecified atrial flutter Status: Acute (4) Pancolitis: Code(s): K52.9 - Noninfective gastroenteritis and colitis, unspecified Status: Acute (5) Acute kidney injury: Code(s): N17.9 - Acute kidney failure, unspecified Status: Acute (6) Metabolic acidosis: Code(s): E87.20 - Acidosis, unspecified Status: Acute (7) Acute hypoxic respiratory failure: Code(s): J96.01 - Acute respiratory failure with hypoxia Status: Acute (8) Pleural effusion: Code(s): J90 - Pleural effusion, not elsewhere classified Status: Acute (9) Clostridium difficile colitis: Code(s): A04.72 - Enterocolitis due to Clostridium difficile, not specified as recurrent Status: Acute Plan 78-year-old female with past medical history of hypertension, class 1 obesity, presents the hospital with acute abdominal pain. Patient presented to the emergency room on 11/01/2021 and diagnosed with diverticulitis without abscess and sent home with p.o. antibiotics. Patient complains of explosive diarrhea and abdominal pain, denied nausea or vomiting. Lab work in the ED shows leukocytosis at 21.8 sodium of 123, chloride 91, carbon dioxide 17, anion gap of 15, BUN of 31, creatinine of 3.30 with baseline being 0.99, GFR 15, glucose 241, calcium 7.9, CT abdomen pelvis show Interval progression of radiographically uncomplicated selby colitis which could be infectious, inflammatory or less likely ischemic in etiology. Clostridium difficulty associated colitis: vancomycin 500 mg p.o. q.6 hours on 11/06/2024, begin taper on 11/16/2024. Metronidazole complete from 11/08/2024 to 11/15/2024 Appreciate ID recommendations Zosyn discontinued Leukocytosis persistent however patient has improved clinically. No abdominal pain, stool is becoming more formed. Discontinue rectal tube on 11/15/2024. Continue Banatrol. Acute kidney injury/hyponatremia/metabolic acidosis: Infection vs Contrast related injury vs prerenal. Creatinine normal 2 days prior to admission Nephrology is following, right IJ Cecil dialysis catheter placed on 11/10/2024. Dialysis started on 11/10/2024. Nephrology continuing to manage, discussed with Dr. Walsh. Renal ultrasound without obstruction, urine electrolytes pre renal, urine eosinophils negative, CPK normal, mild proteinuria Holding lisinopril and spironolactone Holland catheter in place Follow renal function labs and urine output Disposition pending. Atrial flutter/hypertension/hyperlipidemia: New diagnosis, now converted to sinus rhythm. Continue metoprolol 50 mg p.o. b.i.d.. Digoxin stopped due to renal failure Keep potassium greater than 4 magnesium greater than 2, keep renal failure in consideration. Lisinopril and spironolactone on hold. 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 Continue monitoring blood pressure. on telemetry. Heparin GTT transition to apixaban 2.5 mg p.o. b.i.d. on 11/15/2024. Discussed with Cardiology Nephrology and the patient. Acute hypoxic respiratory failure: Pulmonology consulted. Less likely pneumonia, pneumonia specific antibiotics discontinued. Status post thoracentesis on 11/08/2024 showing exudative effusion, not infectious, macrophage predominant, likely related to colitis/fluid overload related to acute kidney injury. Echocardiogram on 10/08 demonstrating normal left ventricular function. EZ Pap started for bilateral atelectasis. She is not mobile. Encouraged to work with therapy. Weaned to room air on 11/13/2024 Anxiety: Continue with home Xanax Resume POWER GRADER OPERATOR trazodone 50 mg p.o. q.h.s. Full code Saline lock IV Rectal tube in place Holland catheter in place Continue dialysis per Nephrology Continue apixaban 2.5 mg p.o. b.i.d.. Heart healthy, renal dialysis diet Disposition pending: Continue PT/OT evaluations and sessions. She is very weak, prior to admission she is independent and without health issues. I encouraged her to work with therapy. Time Spent With Patient Time with patient: Greater than 35 minutes Subjective Date/time seen: 11/15/24 16:58 Interval history: No major acute overnight events. Patient has no symptomatology to report. Her stool is more formed. Review of Systems Review of Systems: All systems reviewed & are unremarkable except as noted in HPI and below (Subjective) Exam Const: General: comfortable and no acute distress HENMT: Mouth: Yes dry mucous membranes Eyes: Pupils: Equal, round and reactive pupils present Neck: Neck: supple Resp: Effort & Inspection: normal respiratory effort Other: Scant crackles Cardio: Rate: regular rate Rhythm: regular rhythm GI: GI Palp: No Tenderness to palpation present (GI) and No Guarding due to palpation present (GI) Other: Mild distension but soft Neuro: Motor exam (neuro): 5/5 motor strength present throughout Extrem: Other: Trace pitting edema bilateral lower extremities Objective Data Vital Signs Vital Signs: Vital Signs - 24 hr 11/14/24 17:56 11/14/24 20:00 11/14/24 20:12 Temperature 97.5 F L Pulse Rate 70 69 Respiratory Rate 16 Blood Pressure 152/46 H Pulse Oximetry 90 Oxygen Delivery Room Air 11/15/24 04:00 11/15/24 04:03 11/15/24 08:00 Temperature 97.9 F Pulse Rate 64 65 66 Respiratory Rate 16 Blood Pressure 147/43 H Pulse Oximetry 91 Oxygen Delivery 11/15/24 09:01 11/15/24 12:00 11/15/24 14:00 Temperature 98.1 F Pulse Rate 68 66 71 Respiratory Rate 18 Blood Pressure 142/57 H Pulse Oximetry 92 Oxygen Delivery Intake/Output Intake/Output: Intake & Output 11/12/24 11/13/24 11/14/24 11/15/24 23:59 23:59 23:59 23:59 Intake Total 1500.2 1600.1 1098.3 717.9 Output Total 588 471 6815 700 Balance 1000.2 1125.1 -1201.7 17.9 Meds/Results Medications: Active Medications Generic Name Dose Route Start Last Admin Trade Name Freq PRN Reason Stop Dose Admin Acetaminophen 650 mg 11/06/24 12:18 11/09/24 13:38 Acetaminophen 325 Mg Tablet PO 650 mg Q4H PRN Administration Headache Alprazolam 0.25 mg 11/11/24 06:34 11/14/24 10:44 Alprazolam (*Crx) 0.25 Mg Tablet PO 0.25 mg WITH DIALYSIS PRN Administration Anxiety Alteplase, Recombinant 2 mg 11/11/24 21:39 11/11/24 22:17 Alteplase 2 Mg Vial (Cathflo) IV PUSH 2 mg ONCE PRN Administration Line Occlusion Apixaban 2.5 mg 11/15/24 21:00 Apixaban 2.5 Mg Tablet PO Q12HR KEVIN Cyclosporine 1 drop 11/03/24 21:00 11/15/24 09:00 Cyclosporine 0.4 Ml Ophth Solution EACH EYE 1 drop Q12HR KEVIN Administration Albumin Human 50 mls @ 999 mls/hr 11/10/24 09:33 Albutein IVPB 12/10/24 09:32 Q10M PRN HYPOTENSION Metoprolol Tartrate 50 mg 11/08/24 09:00 11/15/24 09:01 Metoprolol Tartrate 50 Mg Tab PO 50 mg BID KEVIN Administration Sodium Chloride 10 ml 11/06/24 22:00 11/15/24 14:53 Central Line Flush IV PUSH 10 ml Q8HR KEVIN Administration Sodium Chloride 10 ml 11/06/24 14:29 Central Line Flush IV PUSH PRN PRN with TPN bag changes Sodium Chloride 20 ml 11/06/24 14:29 11/15/24 05:42 Central Line Flush IV PUSH 20 ml PRN PRN Administration after blood draws Sodium Chloride 1 spray 11/15/24 16:13 Saline 0.65% Rodrigo Soln 44 Ml Btl NASAL Q6HR PRN Congestion Trazodone HCl 50 mg 11/03/24 21:00 11/14/24 22:16 Trazodone Hcl 50 Mg Tablet PO 50 mg QHS KEVIN Administration Vancomycin HCl 500 mg 11/06/24 08:15 11/15/24 12:34 Vancomycin Hcl 250 Mg Oral Capsule PO 11/16/24 00:01 500 mg Q6HR KEVIN Administration Vancomycin HCl 250 mg 11/16/24 06:00 Vancomycin Hcl 125 Mg Oral Capsule PO 11/30/24 00:01 Q6HR [facility] Vancomycin HCl 125 mg 11/30/24 06:00 Vancomycin Hcl 125 Mg Oral Capsule PO 12/14/24 00:01 Q6HR [facility] Vancomycin HCl 125 mg 12/14/24 09:00 Vancomycin Hcl 125 Mg Oral Capsule PO 12/27/24 21:01 Q12HR [facility] Vancomycin HCl 125 mg 12/28/24 09:00 Vancomycin Hcl 125 Mg Oral Capsule PO 01/10/25 09:01 DAILY [facility] Vancomycin HCl 125 mg 01/11/25 09:00 Vancomycin Hcl 125 Mg Oral Capsule PO 01/23/25 09:01 Q48HR [facility] Radiology Results: ITS Impressions Abdomen/Pelvis CT 11/04/24 12:36 IMPRESSION: 1. No evidence of bowel perforation. 2. Persistent severe pancolitis. 3. New small scattered ascites. 4. New small pleural effusions and significant bibasilar atelectasis. Renal Ultrasound 11/04/24 19:07 Impression: Simple appearing left renal cyst. No significant medical renal disease or obstruction Abdomen X-Ray 11/05/24 16:02 Impression: 1. Findings concerning for small bowel obstruction. CT is suggested Chest/Abdomen/Pelvis CT 11/05/24 17:04 IMPRESSION: 1. Diffuse colitis detailed above, correlate for underlying pseudomembranous colitis. No perforation or abscess. Follow-up recommended to assess. 2. CHF with superimposed probable bronchopneumonia. 3. Incidental findings above. Contrast-enhanced MRI recommended Head CT 11/06/24 12:46 Impression: 1.No acute intracranial abnormality. Thoracentesis Ultrasound 11/08/24 11:36 IMPRESSION: 1. Successful ultrasound-guided thoracentesis yielding 250 mL of yellow fluid. Chest X-Ray 11/11/24 08:57 IMPRESSION: 1. No significant change. 2. Pleural effusions with bibasilar atelectasis and/or airspace disease. 3. No pneumothorax. Labs Labs: Laboratory Results - last 24 hr 11/15/24 05:24 WBC 21.0 H RBC 3.32 L Hgb 10.2 L Hct 30.6 L MCV 92.2 MCH 30.7 MCHC 33.3 RDW 13.5 Plt Count 345 MPV 9.4 Immature Gran % (Auto) 3.0 H Neut % (Auto) 85.5 H Lymph % (Auto) 5.8 L Kleberg % (Auto) 5.4 Eos % (Auto) 0.0 Baso % (Auto) 0.3 Lymph # (Auto) 1.21 Kleberg # (Auto) 1.1 H Eos # (Auto) 0.0 Baso # (Auto) 0.1 Abs Immat Gran (auto) 0.63 H Absolute Neuts (auto) 18.0 H Absolute Nucleated RBC 0.020 H Nucleated RBC % 0.1 APTT 90.8 H Sodium 124 L Potassium 3.5 Chloride 94 L Carbon Dioxide 23 Anion Gap 7 BUN 35 H D Creatinine 1.54 H Estim Creat Clear Calc 27 Estimated GFR 33 L Glucose 115 H Calcium 7.5 L Magnesium 1.6
[2024-11-15] MEDS: SALINE 0.65% NAS SOLN 44 ML BTL 1 SPRAY NASAL (17:13)
[2024-11-15] MEDS: APIXABAN 2.5 MG TABLET PO (21:57)
[2024-11-16] VITALS (12 sets, daily range): BP systolic 146–153; BP diastolic 50–66; PULSE 60–73; RESP 18; TEMP 36.2–36.5; O2SAT 92–94
[2024-11-16] MEDS: VANCOMYCIN HCL 250 MG ORAL CAPSULE 500 MG PO (00:02)
[2024-11-16] MEDS: VANCOMYCIN HCL 125 MG ORAL CAPSULE 250 MG PO ×3 (05:55→17:31)
[2024-11-16] MEDS: CENTRAL LINE FLUSH 20 ML IV PUSH (05:56)
[2024-11-16] MEDS: CENTRAL LINE FLUSH 10 ML IV PUSH ×3 (05:56→21:48)
[2024-11-16 06:10] LABS: Hematocrit 32.3 % (37.0-47.0); Hemoglobin 10.7 g/dL (12.0-15.0); Immature Granulocyte Percent A 1.8 % (0-0.5); Lymphocytes Absolute Auto 1.05 K/mm3 (0.9-3.2); Mean Corpuscular HGB Conc 33.1 g/dl (32-36); Mean Corpuscular Hemoglobin 30.7 pg (26-34); Mean Corpuscular Volume 92.6 fl (80-100); Nucleated Red Blood Cells Absolute Auto 0.000 K/mm3 (0.0-0.012); Nucleated Red Blood Cells Perc 0.0 % (0.0-0.2); Platelet Count Result 332 k/mm3 (150-375); Red Blood Count 3.49 M/mm3 (4.2-5.4); White Blood Count 19.7 K/mm3 (4.5-10.0)
[2024-11-16 06:38] LABS: Albumin Level 2.4 g/dL (3.5-5.1); Anion Gap 6 mmol/L (4-12); Blood Urea Nitrogen 41 mg/dL (7-17); Calcium 7.5 mg/dL (8.4-10.2); Carbon Dioxide 22 mmol/L (22-30); Chloride 92 mmol/L (98-107); Estimated CRCL calculation 28 ml/min; Estimated Glomerular Filt Rate 34; Glucose 108 mg/dL (65-110); Magnesium 1.5 mg/dL (1.6-2.3); Potassium 3.2 mmol/L (3.4-5.0); Sodium 120 mmol/L (137-145)
--- NOTE | 2024-11-16 09:01 | WPDINFPN2 ---
Progress Note: A&P Assessment and Plan (1) Clostridium difficile colitis: Code(s): A04.72 - Enterocolitis due to Clostridium difficile, not specified as recurrent Status: Acute Assessment and Plan: -Severe C.difficile colitis is improving -Continue to have some diarrhea but abdominal pain has resolved (2) Leukocytosis: Code(s): D72.829 - Elevated white blood cell count, unspecified Status: Acute Assessment and Plan: -Reactive from C.difficile infection -Continue to monitor (3) Diverticulitis large intestine: Code(s): K57.32 - Diverticulitis of large intestine without perforation or abscess without bleeding Status: Acute Assessment and Plan: -Diagnosed one week prior to admission -S/P Augmentin x 5 days prior to admission -Discontinued Zosyn on 11/10/24 as patient has completed 8 day course for diverticulitis (4) Colitis: Code(s): K52.9 - Noninfective gastroenteritis and colitis, unspecified Status: Acute Assessment and Plan: -Pancolitis noted on CT -Due to C.difficile colitis (5) Acute kidney injury: Code(s): N17.9 - Acute kidney failure, unspecified Status: Acute Assessment and Plan: -Management as per Nephrology service -Plans for short-term HD (6) Pleural effusion: Code(s): J90 - Pleural effusion, not elsewhere classified Status: Acute Assessment and Plan: -S/P Left thoracentesis 11/08/24 -Pleural fluid studies not consistent with empyema -Await pleural fluid cultures negative for growth -Management as per Pulmonary service Plan -Continue enteral Vancomycin for treatment of C.difficile colitis; started tapering to Vancomycin 250mg po Q6hrs on 11/16/24 -Completed empiric course of metronidazole IV on 11/14/24 -Follow off other systemic antimicrobials -Follow CBC and renal function Antimicrobial plan of care discussed with patient. All questions answered Patient was seen via video telehealth consultation with the assistance of staff. Chart, data, and patient independently reviewed. Patient was located at [facility] while I was located in my [place] office. Received verbal consent from patient. Subjective Date/time seen: 11/16/24 09:01 Interval history: Patient afebrile. Less diarrhea noted. Has had 3 BMs so far. She was able to eat breakfast and lunch. Review of Systems Review of Systems: All systems reviewed & are unremarkable except as noted in HPI and below Exam Narrative: Gen: A&Ox3 Pulm: minimal conversational dyspnea Derm: no rash Abd: decreased distension, no TTP with palpation and no guarding/rebound TTP Lines: RUE PICC intact Objective Data Vital Signs Vital Signs: Vital Signs - 24 hr 11/15/24 12:00 11/15/24 14:00 11/15/24 16:00 Temperature 98.1 F Pulse Rate 66 71 71 Respiratory Rate 18 Blood Pressure 142/57 H Pulse Oximetry 92 Oxygen Delivery 11/15/24 17:12 11/15/24 20:00 11/15/24 20:00 Temperature Pulse Rate 63 61 Respiratory Rate Blood Pressure Pulse Oximetry Oxygen Delivery Room Air 11/15/24 20:04 11/16/24 00:00 11/16/24 04:00 Temperature 97.4 F L Pulse Rate 63 66 60 Respiratory Rate 18 Blood Pressure 150/47 H Pulse Oximetry 92 Oxygen Delivery 11/16/24 04:41 Temperature 97.1 F L Pulse Rate 63 Respiratory Rate 18 Blood Pressure 146/50 H Pulse Oximetry 92 Oxygen Delivery Intake/Output Intake/Output: Intake & Output 11/13/24 11/14/24 11/15/24 11/16/24 23:59 23:59 23:59 23:59 Intake Total 1600.1 1098.3 717.9 400 Output Total 475 2300 700 325 Balance 1125.1 -1201.7 17.9 75 Meds/Results Medications: Active Medications Generic Name Dose Route Start Last Admin Trade Name Freq PRN Reason Stop Dose Admin Acetaminophen 650 mg 11/06/24 12:18 11/09/24 13:38 Acetaminophen 325 Mg Tablet PO 650 mg Q4H PRN Administration Headache Alprazolam 0.25 mg 11/11/24 06:34 11/14/24 10:44 Alprazolam (*Crx) 0.25 Mg Tablet PO 0.25 mg WITH DIALYSIS PRN Administration Anxiety Alteplase, Recombinant 2 mg 11/11/24 21:39 11/11/24 22:17 Alteplase 2 Mg Vial (Cathflo) IV PUSH 2 mg ONCE PRN Administration Line Occlusion Apixaban 2.5 mg 11/15/24 21:00 11/15/24 21:57 Apixaban 2.5 Mg Tablet PO 2.5 mg Q12HR KEVIN Administration Cyclosporine 1 drop 11/03/24 21:00 11/15/24 21:57 Cyclosporine 0.4 Ml Ophth Solution EACH EYE 1 drop Q12HR KEVIN Administration Albumin Human 50 mls @ 999 mls/hr 11/10/24 09:33 Albutein IVPB 12/10/24 09:32 Q10M PRN HYPOTENSION Metoprolol Tartrate 50 mg 11/08/24 09:00 11/15/24 17:12 Metoprolol Tartrate 50 Mg Tab PO 50 mg BID KEVIN Administration Sodium Chloride 10 ml 11/06/24 22:00 11/16/24 05:56 Central Line Flush IV PUSH 10 ml Q8HR KEVIN Administration Sodium Chloride 10 ml 11/06/24 14:29 Central Line Flush IV PUSH PRN PRN with TPN bag changes Sodium Chloride 20 ml 11/06/24 14:29 11/16/24 05:56 Central Line Flush IV PUSH 20 ml PRN PRN Administration after blood draws Sodium Chloride 1 spray 11/15/24 16:13 11/15/24 17:13 Saline 0.65% Rodrigo Soln 44 Ml Btl NASAL 1 spray Q6HR PRN Administration Congestion Trazodone HCl 50 mg 11/03/24 21:00 11/15/24 21:57 Trazodone Hcl 50 Mg Tablet PO 50 mg QHS KEVIN Administration Vancomycin HCl 250 mg 11/16/24 06:00 11/16/24 05:55 Vancomycin Hcl 125 Mg Oral Capsule PO 11/30/24 00:01 250 mg Q6HR KEVIN Administration Vancomycin HCl 125 mg 11/30/24 06:00 Vancomycin Hcl 125 Mg Oral Capsule PO 12/14/24 00:01 Q6HR [facility] Vancomycin HCl 125 mg 12/14/24 09:00 Vancomycin Hcl 125 Mg Oral Capsule PO 12/27/24 21:01 Q12HR [facility] Vancomycin HCl 125 mg 12/28/24 09:00 Vancomycin Hcl 125 Mg Oral Capsule PO 01/10/25 09:01 DAILY [facility] Vancomycin HCl 125 mg 01/11/25 09:00 Vancomycin Hcl 125 Mg Oral Capsule PO 01/23/25 09:01 Q48HR [facility] Radiology Results: ITS Impressions Abdomen/Pelvis CT 11/04/24 12:36 IMPRESSION: 1. No evidence of bowel perforation. 2. Persistent severe pancolitis. 3. New small scattered ascites. 4. New small pleural effusions and significant bibasilar atelectasis. Renal Ultrasound 11/04/24 19:07 Impression: Simple appearing left renal cyst. No significant medical renal disease or obstruction Abdomen X-Ray 11/05/24 16:02 Impression: 1. Findings concerning for small bowel obstruction. CT is suggested Chest/Abdomen/Pelvis CT 11/05/24 17:04 IMPRESSION: 1. Diffuse colitis detailed above, correlate for underlying pseudomembranous colitis. No perforation or abscess. Follow-up recommended to assess. 2. CHF with superimposed probable bronchopneumonia. 3. Incidental findings above. Contrast-enhanced MRI recommended Head CT 11/06/24 12:46 Impression: 1.No acute intracranial abnormality. Thoracentesis Ultrasound 11/08/24 11:36 IMPRESSION: 1. Successful ultrasound-guided thoracentesis yielding 250 mL of yellow fluid. Chest X-Ray 11/11/24 08:57 IMPRESSION: 1. No significant change. 2. Pleural effusions with bibasilar atelectasis and/or airspace disease. 3. No pneumothorax. Labs Labs: Laboratory Results - last 24 hr 11/16/24 06:01 WBC 19.7 H RBC 3.49 L Hgb 10.7 L Hct 32.3 L MCV 92.6 MCH 30.7 MCHC 33.1 RDW 13.9 Plt Count 332 MPV 9.4 Immature Gran % (Auto) 1.8 H Neut % (Auto) 87.2 H Lymph % (Auto) 5.3 L Piatt % (Auto) 5.2 Eos % (Auto) 0.2 Baso % (Auto) 0.3 Lymph # (Auto) 1.05 Piatt # (Auto) 1.0 H Eos # (Auto) 0.0 Baso # (Auto) 0.1 Abs Immat Gran (auto) 0.36 H Absolute Neuts (auto) 17.2 H Absolute Nucleated RBC 0.000 Nucleated RBC % 0.0 Sodium 120 L Potassium 3.2 L Chloride 92 L Carbon Dioxide 22 Anion Gap 6 BUN 41 H Creatinine 1.48 H Estim Creat Clear Calc 28 Estimated GFR 34 L Glucose 108 Calcium 7.5 L Phosphorus 3.3 Magnesium 1.5 L Albumin 2.4 L
[2024-11-16] MEDS: METOPROLOL TARTRATE 50 MG TAB PO ×2 (10:03→17:30)
[2024-11-16] MEDS: APIXABAN 2.5 MG TABLET PO ×2 (10:04→21:43)
[2024-11-16] MEDS: cycloSPORINE 0.4 ML OPHTH SOLUTION 1 DROP EACH EYE ×2 (10:04→21:48)
--- NOTE | 2024-11-16 10:49 | PCNFU ---
Nutrition Follow-Up Complete: Inadequate oral intake related to altered GI function as evidenced by diverticulitis Goal; Diet advancement Improve PO intake when diet advanced Patient will continue current goal. Pt current nutrition is Renal Dialysis with diet supplements. Last recorded weight is 75.9 kg, up from 69.9 kg on admit Bowel Motility: Last reported BM 11/16 Labs Reviewed: Glu 120, BUN 41, Cr 1.48, K 3.2, Alb 2.4 Meds Noted: Vancomycin, Eliquis Skin: WNL Additional Notes: Patient remains on a Renal Dialysis diet. Oral Intake 5-50% of meals. Cdiff+ Banatrol Plus BID being provided. Diet supplement of Ensure Plus High Protein BID for additional 350 kcal and 20 gm protein. Possible Dialysis today. Agree with diet orders. Monitoring diet orders, weights, labs, plan of care Follow up in 3 days
--- NOTE | 2024-11-16 13:16 | P.PNNP_ITS ---
Progress Note: A&P Assessment and Plan (1) Acute kidney injury: Code(s): N17.9 - Acute kidney failure, unspecified Status: Acute Assessment and Plan: * as noted by admission labs (creatinine of 3.03mg/dL) * creatinine normal 2 days prior to admission * baseline creatinine runs ~ 0.9 - 1.1mg/dL * suspect multifactorial etiology: * prerenal factors * infection/early sepsis (diverticulitis/colitis) * contrast exposure (CT of A/P on 11/01) * relative hypotension on presentation * JAMIE-I/diuretic use prior to admission * urinary retention(?) - difficulty urinating on admission so gamble catheter placed * other (?) * off IVFs due to concerns for volume overload * evaluation to date noted: * renal ultrasound without obstruction * urine electrolytes prerenal * urine eosinophils negative * CPK normal * mild proteinuria * holding lisinopril and spironolactone * initiated on MANAGER ACCESS/HD on 11/10 * creatinine better but diminshed UOP * trial of IVFs x 24 hours * follow trend of repeat labs and UOP (2) Clostridium difficile colitis: Code(s): A04.72 - Enterocolitis due to Clostridium difficile, not specified as recurrent Status: Acute Assessment and Plan: * demonstrated by positive C. diff toxin assay * also noted by CT imaging to date: * CT of C/A/P (11/05): Diffuse colitis detailed above, correlate for underlying pseudomembranous colitis. No perforation or abscess * CT of A/P (11/04): No evidence of bowel perforation; persistent severe pancolitis * CT of A/P (11/03): Interval progression of radiographically uncomplicated selby colitis which could be infectious, inflammatory or less likely ischemic in etiology * CT of A/P (11/01): Sigmoid diverticulitis. No perforation or abscess * complicated by diverticulitis * follow culture data * follow trend of WBC * on antibiotics * Infectious Disease following (3) Acute hypoxic respiratory failure: Code(s): J96.01 - Acute respiratory failure with hypoxia Status: Acute Assessment and Plan: * improvement noted * multifactorial etiology: * bilateral pleural effusions * atelectasis * fluid overload * atrial flutter with rapid ventricular response * pancolitis * possible pneumonia (?) * s/p thoracentesis (on 9/24) * Pulmonary following with recommendations noted * fluid removal with dialysis as tolerated * follow respiratory status (4) Metabolic acidosis: Code(s): E87.20 - Acidosis, unspecified Status: Acute Assessment and Plan: * due to DONOVAN/ARF and GI issues/symptoms * fluctuating lactic acid levels noted * dialysis should help correct * follow repeat labs (5) Hyponatremia: Code(s): E87.1 - Hypo-osmolality and hyponatremia Status: Acute Assessment and Plan: * as noted on admission * possible chronic component -- sodium seems to run 129 - 136mmol/L since 2021 * presumably worsen by: * DONOVAN/ARF * prerenal factors * pleural effusions * possible pneumonia * urinary retention * mild improvement s/p IVF resuscitation * repeat trial of IVFs today * follow trend of sodium (6) Atrial flutter: Code(s): I48.92 - Unspecified atrial flutter Status: Acute Assessment and Plan: * as noted by events early on 11/05 * rate control strategy * Cardiology recommendations noted * on metoprolol * was on IV amiodarone (temporary measure) * Echo noted (on 11/07) * left ventricular systolic function is hyperdynamic, estimated at > 70% * left ventricular diastolic function is grade I diastolic dysfunction * no aortic valve stenosis * mild tricuspid valve regurgitation * on anticoagulation (7) Elevated troponin: Code(s): R79.89 - Other specified abnormal findings of blood chemistry Status: Acute Assessment and Plan: * due to DONOVAN versus atrial fluttter with RVR * trend noted * Cardiology already following (8) Hypertension: Code(s): I10 - Essential (primary) hypertension Status: Chronic Assessment and Plan: * reasonable control * holding JAMIE-I and diuretics due to #1 * follow trend of hemodynamics Will continue to follow. L Subjective Date/time seen: 11/16/24 13:16 Interval history: Follow-up for acute kidney injury/acute renal failure. Renal function/creatinine better but not much urine output overnight; nursing reports that she is not eating very much; continues to have diarrhea as welll; major complaint is that of weakness/fatigue; breathing/respiratory status relatively stable. Exam 2 Narrative: General: elderly but WD/WN female in NAD Heart: RRR, normal S1 and S2; no rub Lungs: coarse and decreased at bases Abdomen: soft, nontender, positive bowel sounds Extremities: no cyanosis or clubbing; trace edema Skin: no rash Objective Data Vital Signs Vital Signs: Vital Signs Temp Pulse Resp BP Pulse Ox O2 Del Method 11/16/24 13:06 97.7 F 68 18 148/52 H 94 11/16/24 10:03 73 11/16/24 10:00 Room Air 11/16/24 09:59 92 Room Air 11/16/24 08:00 68 11/16/24 04:41 97.1 F L 63 18 146/50 H 92 11/16/24 04:00 60 11/16/24 00:00 66 11/15/24 20:04 97.4 F L 63 18 150/47 H 92 11/15/24 20:00 Room Air 11/15/24 20:00 61 Intake/Output Intake/Output: Intake & Output 11/13/24 11/14/24 11/15/24 11/16/24 23:59 23:59 23:59 23:59 Intake Total 1600.1 1098.3 717.9 760 Output Total 475 2300 700 325 Balance 1125.1 -1201.7 17.9 435 Meds/Results Medications: Active Medications Generic Name Dose Route Start Last Admin Trade Name Freq PRN Reason Stop Dose Admin Acetaminophen 650 mg 11/06/24 12:18 11/09/24 13:38 Acetaminophen 325 Mg Tablet PO 650 mg Q4H PRN Administration Headache Alprazolam 0.25 mg 11/11/24 06:34 11/14/24 10:44 Alprazolam (*Crx) 0.25 Mg Tablet PO 0.25 mg WITH DIALYSIS PRN Administration Anxiety Alteplase, Recombinant 2 mg 11/11/24 21:39 11/11/24 22:17 Alteplase 2 Mg Vial (Cathflo) IV PUSH 2 mg ONCE PRN Administration Line Occlusion Apixaban 2.5 mg 11/15/24 21:00 11/16/24 10:04 Apixaban 2.5 Mg Tablet PO 2.5 mg Q12HR KEVIN Administration Cyclosporine 1 drop 11/03/24 21:00 11/16/24 10:04 Cyclosporine 0.4 Ml Ophth Solution EACH EYE 1 drop Q12HR KEVIN Administration Albumin Human 50 mls @ 999 mls/hr 11/10/24 09:33 Albutein IVPB 12/10/24 09:32 Q10M PRN HYPOTENSION Sodium Chloride 1,000 mls @ 75 mls/hr 11/16/24 17:25 Normal Saline Iv IV [id number] .[id number] [facility] Metoprolol Tartrate 50 mg 11/08/24 09:00 11/16/24 17:30 Metoprolol Tartrate 50 Mg Tab PO 50 mg BID KEVIN Administration Sodium Chloride 10 ml 11/06/24 22:00 11/16/24 05:56 Central Line Flush IV PUSH 10 ml Q8HR KEVIN Administration Sodium Chloride 10 ml 11/06/24 14:29 Central Line Flush IV PUSH PRN PRN with TPN bag changes Sodium Chloride 20 ml 11/06/24 14:29 11/16/24 05:56 Central Line Flush IV PUSH 20 ml PRN PRN Administration after blood draws Sodium Chloride 1 spray 11/15/24 16:13 11/15/24 17:13 Saline 0.65% Rodrigo Soln 44 Ml Btl NASAL 1 spray Q6HR PRN Administration Congestion Trazodone HCl 50 mg 11/03/24 21:00 11/15/24 21:57 Trazodone Hcl 50 Mg Tablet PO 50 mg QHS KEVIN Administration Vancomycin HCl 250 mg 11/16/24 06:00 11/16/24 17:31 Vancomycin Hcl 125 Mg Oral Capsule PO 11/30/24 00:01 250 mg Q6HR KEVIN Administration Vancomycin HCl 125 mg 11/30/24 06:00 Vancomycin Hcl 125 Mg Oral Capsule PO 12/07/24 00:01 Q6HR [facility] Vancomycin HCl 125 mg 12/07/24 09:00 Vancomycin Hcl 125 Mg Oral Capsule PO 12/13/24 21:01 Q12HR [facility] Vancomycin HCl 125 mg 12/14/24 09:00 Vancomycin Hcl 125 Mg Oral Capsule PO 12/27/24 09:01 DAILY [facility] Vancomycin HCl 125 mg 12/28/24 09:00 Vancomycin Hcl 125 Mg Oral Capsule PO 01/09/25 09:01 Q48HR [facility] Radiology Results: ITS Impressions Abdomen/Pelvis CT 11/04/24 12:36 IMPRESSION: 1. No evidence of bowel perforation. 2. Persistent severe pancolitis. 3. New small scattered ascites. 4. New small pleural effusions and significant bibasilar atelectasis. Renal Ultrasound 11/04/24 19:07 Impression: Simple appearing left renal cyst. No significant medical renal disease or obstruction Abdomen X-Ray 11/05/24 16:02 Impression: 1. Findings concerning for small bowel obstruction. CT is suggested Chest/Abdomen/Pelvis CT 11/05/24 17:04 IMPRESSION: 1. Diffuse colitis detailed above, correlate for underlying pseudomembranous colitis. No perforation or abscess. Follow-up recommended to assess. 2. CHF with superimposed probable bronchopneumonia. 3. Incidental findings above. Contrast-enhanced MRI recommended Head CT 11/06/24 12:46 Impression: 1.No acute intracranial abnormality. Thoracentesis Ultrasound 11/08/24 11:36 IMPRESSION: 1. Successful ultrasound-guided thoracentesis yielding 250 mL of yellow fluid. Chest X-Ray 11/11/24 08:57 IMPRESSION: 1. No significant change. 2. Pleural effusions with bibasilar atelectasis and/or airspace disease. 3. No pneumothorax. Labs Labs: Laboratory Tests 11/16/24 06:01 11/16/24 06:01 Calcium 7.5 L Phosphorus 3.3 Magnesium 1.5 L Albumin 2.4 L
--- NOTE | 2024-11-16 13:16 | PM.PNNEP ---
Progress Note: A&P Assessment and Plan (1) Acute kidney injury: Code(s): N17.9 - Acute kidney failure, unspecified Status: Acute Assessment and Plan: as noted by admission labs (creatinine of 3.03mg/dL) creatinine normal 2 days prior to admission baseline creatinine runs ~ 0.9 - 1.1mg/dL suspect multifactorial etiology: prerenal factors infection/early sepsis (diverticulitis/colitis) contrast exposure (CT of A/P on 11/01) relative hypotension on presentation JAMIE-I/diuretic use prior to admission urinary retention(?) - difficulty urinating on admission so gamble catheter placed other (?) off IVFs due to concerns for volume overload evaluation to date noted: renal ultrasound without obstruction urine electrolytes prerenal urine eosinophils negative CPK normal mild proteinuria holding lisinopril and spironolactone initiated on [employer]/HD on 11/10 creatinine better but diminshed UOP trial of IVFs x 24 hours follow trend of repeat labs and UOP (2) Clostridium difficile colitis: Code(s): A04.72 - Enterocolitis due to Clostridium difficile, not specified as recurrent Status: Acute Assessment and Plan: demonstrated by positive C. diff toxin assay also noted by CT imaging to date: CT of C/A/P (11/05): Diffuse colitis detailed above, correlate for underlying pseudomembranous colitis. No perforation or abscess CT of A/P (11/04): No evidence of bowel perforation; persistent severe pancolitis CT of A/P (11/03): Interval progression of radiographically uncomplicated selby colitis which could be infectious, inflammatory or less likely ischemic in etiology CT of A/P (11/01): Sigmoid diverticulitis. No perforation or abscess complicated by diverticulitis follow culture data follow trend of WBC on antibiotics Infectious Disease following (3) Acute hypoxic respiratory failure: Code(s): J96.01 - Acute respiratory failure with hypoxia Status: Acute Assessment and Plan: improvement noted multifactorial etiology: bilateral pleural effusions atelectasis fluid overload atrial flutter with rapid ventricular response pancolitis possible pneumonia (?) s/p thoracentesis (on 11/08) Pulmonary following with recommendations noted fluid removal with dialysis as tolerated follow respiratory status (4) Metabolic acidosis: Code(s): E87.20 - Acidosis, unspecified Status: Acute Assessment and Plan: due to DONOVAN/ARF and GI issues/symptoms fluctuating lactic acid levels noted dialysis should help correct follow repeat labs (5) Hyponatremia: Code(s): E87.1 - Hypo-osmolality and hyponatremia Status: Acute Assessment and Plan: as noted on admission possible chronic component -- sodium seems to run 129 - 136mmol/L since 2021 presumably worsen by: DONOVAN/ARF prerenal factors pleural effusions possible pneumonia urinary retention mild improvement s/p IVF resuscitation repeat trial of IVFs today follow trend of sodium (6) Atrial flutter: Code(s): I48.92 - Unspecified atrial flutter Status: Acute Assessment and Plan: as noted by events early on 11/05 rate control strategy Cardiology recommendations noted on metoprolol was on IV amiodarone (temporary measure) Echo noted (on 11/07) left ventricular systolic function is hyperdynamic, estimated at > 70% left ventricular diastolic function is grade I diastolic dysfunction no aortic valve stenosis mild tricuspid valve regurgitation on anticoagulation (7) Elevated troponin: Code(s): R79.89 - Other specified abnormal findings of blood chemistry Status: Acute Assessment and Plan: due to DONOVAN versus atrial fluttter with RVR trend noted Cardiology already following (8) Hypertension: Code(s): I10 - Essential (primary) hypertension Status: Chronic Assessment and Plan: reasonable control holding JAMIE-I and diuretics due to #1 follow trend of hemodynamics Will continue to follow. Subjective Date/time seen: 11/16/24 13:16 Interval history: Follow-up for acute kidney injury/acute renal failure. Renal function/creatinine better but not much urine output overnight; nursing reports that she is not eating very much; continues to have diarrhea as welll; major complaint is that of weakness/fatigue; breathing/respiratory status relatively stable. Exam Narrative: General: elderly but WD/WN female in NAD Heart: RRR, normal S1 and S2; no rub Lungs: coarse and decreased at bases Abdomen: soft, nontender, positive bowel sounds Extremities: no cyanosis or clubbing; trace edema Skin: no rash Objective Data Vital Signs Vital Signs: Vital Signs Temp Pulse Resp BP Pulse Ox O2 Del Method 11/16/24 13:06 97.7 F 68 18 148/52 H 94 11/16/24 10:03 73 11/16/24 10:00 Room Air 11/16/24 09:59 92 Room Air 11/16/24 08:00 68 11/16/24 04:41 97.1 F L 63 18 146/50 H 92 11/16/24 04:00 60 11/16/24 00:00 66 11/15/24 20:04 97.4 F L 63 18 150/47 H 92 11/15/24 20:00 Room Air 11/15/24 20:00 61 Intake/Output Intake/Output: Intake & Output 11/13/24 11/14/24 11/15/24 11/16/24 23:59 23:59 23:59 23:59 Intake Total 1600.1 1098.3 717.9 760 Output Total 475 2300 700 325 Balance 1125.1 -1201.7 17.9 435 Meds/Results Medications: Active Medications Generic Name Dose Route Start Last Admin Trade Name Freq PRN Reason Stop Dose Admin Acetaminophen 650 mg 11/06/24 12:18 11/09/24 13:38 Acetaminophen 325 Mg Tablet PO 650 mg Q4H PRN Administration Headache Alprazolam 0.25 mg 11/11/24 06:34 11/14/24 10:44 Alprazolam (*Crx) 0.25 Mg Tablet PO 0.25 mg WITH DIALYSIS PRN Administration Anxiety Alteplase, Recombinant 2 mg 11/11/24 21:39 11/11/24 22:17 Alteplase 2 Mg Vial (Cathflo) IV PUSH 2 mg ONCE PRN Administration Line Occlusion Apixaban 2.5 mg 11/15/24 21:00 11/16/24 10:04 Apixaban 2.5 Mg Tablet PO 2.5 mg Q12HR KEVIN Administration Cyclosporine 1 drop 11/03/24 21:00 11/16/24 10:04 Cyclosporine 0.4 Ml Ophth Solution EACH EYE 1 drop Q12HR KEVIN Administration Albumin Human 50 mls @ 999 mls/hr 11/10/24 09:33 Albutein IVPB 12/10/24 09:32 Q10M PRN HYPOTENSION Sodium Chloride 1,000 mls @ 75 mls/hr 11/16/24 17:25 Normal Saline Iv IV CONT .[id number] KEVIN Metoprolol Tartrate 50 mg 11/08/24 09:00 11/16/24 17:30 Metoprolol Tartrate 50 Mg Tab PO 50 mg BID KEVIN Administration Sodium Chloride 10 ml 09/22/25 22:00 11/16/24 05:56 Central Line Flush IV PUSH 10 ml Q8HR KEVIN Administration Sodium Chloride 10 ml 11/06/24 14:29 Central Line Flush IV PUSH PRN PRN with TPN bag changes Sodium Chloride 20 ml 11/06/24 14:29 11/16/24 05:56 Central Line Flush IV PUSH 20 ml PRN PRN Administration after blood draws Sodium Chloride 1 spray 11/15/24 16:13 11/15/24 17:13 Saline 0.65% Rodrigo Soln 44 Ml Btl NASAL 1 spray Q6HR PRN Administration Congestion Trazodone HCl 50 mg 11/03/24 21:00 11/15/24 21:57 Trazodone Hcl 50 Mg Tablet PO 50 mg QHS KEVIN Administration Vancomycin HCl 250 mg 11/16/24 06:00 11/16/24 17:31 Vancomycin Hcl 125 Mg Oral Capsule PO 11/30/24 00:01 250 mg Q6HR KEVIN Administration Vancomycin HCl 125 mg 11/30/24 06:00 Vancomycin Hcl 125 Mg Oral Capsule PO 12/07/24 00:01 Q6HR KEVIN Vancomycin HCl 125 mg 12/07/24 09:00 Vancomycin Hcl 125 Mg Oral Capsule PO 12/13/24 21:01 Q12HR [facility] Vancomycin HCl 125 mg 12/14/24 09:00 Vancomycin Hcl 125 Mg Oral Capsule PO 12/27/24 09:01 DAILY [facility] Vancomycin HCl 125 mg 12/28/24 09:00 Vancomycin Hcl 125 Mg Oral Capsule PO 01/09/25 09:01 Q48HR [facility] Radiology Results: ITS Impressions Abdomen/Pelvis CT 11/04/24 12:36 IMPRESSION: 1. No evidence of bowel perforation. 2. Persistent severe pancolitis. 3. New small scattered ascites. 4. New small pleural effusions and significant bibasilar atelectasis. Renal Ultrasound 11/04/24 19:07 Impression: Simple appearing left renal cyst. No significant medical renal disease or obstruction Abdomen X-Ray 11/05/24 16:02 Impression: 1. Findings concerning for small bowel obstruction. CT is suggested Chest/Abdomen/Pelvis CT 11/05/24 17:04 IMPRESSION: 1. Diffuse colitis detailed above, correlate for underlying pseudomembranous colitis. No perforation or abscess. Follow-up recommended to assess. 2. CHF with superimposed probable bronchopneumonia. 3. Incidental findings above. Contrast-enhanced MRI recommended Head CT 11/06/24 12:46 Impression: 1.No acute intracranial abnormality. Thoracentesis Ultrasound 11/08/24 11:36 IMPRESSION: 1. Successful ultrasound-guided thoracentesis yielding 250 mL of yellow fluid. Chest X-Ray 11/11/24 08:57 IMPRESSION: 1. No significant change. 2. Pleural effusions with bibasilar atelectasis and/or airspace disease. 3. No pneumothorax. Labs Labs: Laboratory Tests 11/16/24 06:01 11/16/24 06:01 Calcium 7.5 L Phosphorus 3.3 Magnesium 1.5 L Albumin 2.4 L
--- NOTE | 2024-11-16 15:46 | P.PNIM_ITS ---
Progress Note: A&P Assessment and Plan (1) Hypertension: Code(s): I10 - Essential (primary) hypertension Status: Chronic (2) Elevated troponin: Code(s): R79.89 - Other specified abnormal findings of blood chemistry Status: Acute (3) Atrial flutter: Code(s): I48.92 - Unspecified atrial flutter Status: Acute (4) Pancolitis: Code(s): K52.9 - Noninfective gastroenteritis and colitis, unspecified Status: Acute (5) Acute kidney injury: Code(s): N17.9 - Acute kidney failure, unspecified Status: Acute (6) Metabolic acidosis: Code(s): E87.20 - Acidosis, unspecified Status: Acute (7) Acute hypoxic respiratory failure: Code(s): J96.01 - Acute respiratory failure with hypoxia Status: Acute (8) Pleural effusion: Code(s): J90 - Pleural effusion, not elsewhere classified Status: Acute (9) Clostridium difficile colitis: Code(s): A04.72 - Enterocolitis due to Clostridium difficile, not specified as recurrent Status: Acute Plan 78-year-old female with past medical history of hypertension, class 1 obesity, presents the hospital with acute abdominal pain. Patient presented to the emergency room on 11/01/2021 and diagnosed with diverticulitis without abscess and sent home with p.o. antibiotics. Patient complains of explosive diarrhea and abdominal pain, denied nausea or vomiting. Lab work in the ED shows leukocytosis at 21.8 sodium of 123, chloride 91, carbon dioxide 17, anion gap of 15, BUN of 31, creatinine of 3.30 with baseline being 0.99, GFR 15, glucose 241, calcium 7.9, CT abdomen pelvis show Interval progression of radiographically uncomplicated selby colitis which could be infectious, inflammatory or less likely ischemic in etiology. Clostridium difficulty associated colitis: vancomycin 500 mg p.o. q.6 hours on 11/06/2024, begin taper on 11/16/2024. Metronidazole complete from 11/08/2024 to 11/15/2024 Appreciate ID recommendations Zosyn discontinued Leukocytosis persistent however patient has improved clinically. No abdominal pain, stool is becoming more formed. Discontinue rectal tube on 11/15/2024. Continue Banatrol. Acute kidney injury/hyponatremia/metabolic acidosis: Infection vs Contrast related injury vs prerenal. Creatinine normal 2 days prior to admission Nephrology is following, right IJ Cecil dialysis catheter placed on 11/10/2024. Dialysis started on 11/10/2024. Nephrology continuing to manage, discussed with Dr. Walsh. Renal ultrasound without obstruction, urine electrolytes pre renal, urine eosinophils negative, CPK normal, mild proteinuria Holding lisinopril and spironolactone Holland catheter in place Follow renal function labs and urine output Disposition pending. 11/16/2024: Discussed with Nephrology. No dialysis planned for today. Patient has about 500 cc of urine output in the Holland catheter since 4:00 a.m.. Will replace her electrolytes gently. Otherwise, she is very weak. Continue with PT/OT. Patient is enthusiastic to p articipate but she feels very weak. We tried to have her perform a incentive spirometer at bedside and she can only pull in about 500. Encouraged her to keep trying this. Consult dietitian. She is only eating about 15% of her meals. Atrial flutter/hypertension/hyperlipidemia: New diagnosis, now converted to sinus rhythm. Continue metoprolol 50 mg p.o. b.i.d.. Digoxin stopped due to renal failure Keep potassium greater than 4 magnesium greater than 2, keep renal failure in consideration. Lisinopril and spironolactone on hold. Amlodipine on hold to allow titration of beta-christine [employer] simvastatin on hold. Continue monitoring blood pressure. on telemetry. Heparin GTT transition to apixaban 2.5 mg p.o. b.i.d. on 11/15/2024. Acute hypoxic respiratory failure: Pulmonology consulted. Less likely pneumonia, pneumonia specific antibiotics discontinued. Status post thoracentesis on 11/08/2024 showing exudative effusion, not infectious, macrophage predominant, likely related to colitis/fluid overload related to acute kidney injury. Echocardiogram on 10/08 demonstrating normal left ventricular function. EZ Pap started for bilateral atelectasis. She is not mobile. Encouraged to work with therapy. Weaned to room air on 11/13/2024 Anxiety: Continue with home Xanax Resume [employer] trazodone 50 mg p.o. q.h.s. Full code Saline lock IV Rectal tube in place Holland catheter in place Continue dialysis per Nephrology Continue apixaban 2.5 mg p.o. b.i.d.. Heart healthy, renal dialysis diet Disposition pending: Continue PT/OT evaluations and sessions. She is very weak, prior to admission she is independent and without health issues. I encouraged her to work with therapy. Time Spent With Patient Time with patient: Greater than 35 minutes Subjective Date/time seen: 11/16/24 15:46 Interval history: No major acute overnight events. Patient has no symptomatology to report. Nurse reports her stool is mucus like. Patient feels weak but thinks she is doing better. We tried to perform incentive spirometer at bedside, she will be pulled at 500. Weak cough reflex Review of Systems Review of Systems: All systems reviewed & are unremarkable except as noted in HPI and below (Subjective) Exam Const: General: comfortable and no acute distress HENMT: Mouth: Yes dry mucous membranes Eyes: Pupils: Equal, round and reactive pupils present Neck: Neck: supple Resp: Effort & Inspection: normal respiratory effort Other: Scant crackles Cardio: Rate: regular rate Rhythm: regular rhythm GI: GI Palp: No Tenderness to palpation present (GI) and No Guarding due to palpation present (GI) Other: Mild distension but soft Neuro: Motor exam (neuro): 5/5 motor strength present throughout Extrem: Other: Trace pitting edema bilateral lower extremities Objective Data Vital Signs Vital Signs: Vital Signs - 24 hr 11/15/24 16:00 11/15/24 17:12 11/15/24 20:00 Temperature Pulse Rate 71 63 61 Respiratory Rate Blood Pressure Pulse Oximetry Oxygen Delivery 11/15/24 20:00 11/15/24 20:04 11/16/24 00:00 Temperature 97.4 F L Pulse Rate 63 66 Respiratory Rate 18 Blood Pressure 150/47 H Pulse Oximetry 92 Oxygen Delivery Room Air 11/16/24 04:00 11/16/24 04:41 11/16/24 08:00 Temperature 97.1 F L Pulse Rate 60 63 68 Respiratory Rate 18 Blood Pressure 146/50 H Pulse Oximetry 92 Oxygen Delivery 11/16/24 09:59 11/16/24 10:00 11/16/24 10:03 Temperature Pulse Rate 73 Respiratory Rate Blood Pressure Pulse Oximetry 92 Oxygen Delivery Room Air Room Air 11/16/24 12:00 11/16/24 13:26 Temperature 97.7 F Pulse Rate 68 68 Respiratory Rate 18 Blood Pressure 148/52 H Pulse Oximetry 94 Oxygen Delivery Intake/Output Intake/Output: Intake & Output 11/13/24 11/14/24 11/15/24 11/16/24 23:59 23:59 23:59 23:59 Intake Total 1600.1 1098.3 717.9 760 Output Total 475 2300 700 325 Balance 1125.1 -1201.7 17.9 435 Meds/Results Medications: Active Medications Generic Name Dose Route Start Last Admin Trade Name Freq PRN Reason Stop Dose Admin Acetaminophen 650 mg 11/06/24 12:18 11/09/24 13:38 Acetaminophen 325 Mg Tablet PO 650 mg Q4H PRN Administration Headache Alprazolam 0.25 mg 11/11/24 06:34 11/14/24 10:44 Alprazolam (*Crx) 0.25 Mg Tablet PO 0.25 mg WITH DIALYSIS PRN Administration Anxiety Alteplase, Recombinant 2 mg 11/11/24 21:39 11/11/24 22:17 Alteplase 2 Mg Vial (Cathflo) IV PUSH 2 mg ONCE PRN Administration Line Occlusion Apixaban 2.5 mg 11/15/24 21:00 11/16/24 10:04 Apixaban 2.5 Mg Tablet PO 2.5 mg Q12HR KEVIN Administration Cyclosporine 1 drop 11/03/24 21:00 11/16/24 10:04 Cyclosporine 0.4 Ml Ophth Solution EACH EYE 1 drop Q12HR KEVIN Administration Albumin Human 50 mls @ 999 mls/hr 11/10/24 09:33 Albutein IVPB 12/10/24 09:32 Q10M PRN HYPOTENSION Potassium Chloride 100 mls @ 50 mls/hr 11/16/24 15:27 Kcl 20 Meq/Sw 100 Ml IVPB 11/16/24 17:26 ONCE ONE Magnesium Sulfate/Dextrose 1 gm in 100 mls @ 100 mls/hr 11/16/24 15:27 Magnesium Sulf 1 Gm/D5w 100 Ml IVPB 11/16/24 16:26 ONCE ONE Metoprolol Tartrate 50 mg 11/08/24 09:00 11/16/24 10:03 Metoprolol Tartrate 50 Mg Tab PO 50 mg BID KEVIN Administration Sodium Chloride 10 ml 11/06/24 22:00 11/16/24 05:56 Central Line Flush IV PUSH 10 ml Q8HR KEVIN Administration Sodium Chloride 10 ml 11/06/24 14:29 Central Line Flush IV PUSH PRN PRN with TPN bag changes Sodium Chloride 20 ml 11/06/24 14:29 11/16/24 05:56 Central Line Flush IV PUSH 20 ml PRN PRN Administration after blood draws Sodium Chloride 1 spray 11/15/24 16:13 11/15/24 17:13 Saline 0.65% Rodrigo Soln 44 Ml Btl NASAL 1 spray Q6HR PRN Administration Congestion Trazodone HCl 50 mg 11/03/24 21:00 11/15/24 21:57 Trazodone Hcl 50 Mg Tablet PO 50 mg QHS KEVIN Administration Vancomycin HCl 250 mg 11/16/24 06:00 11/16/24 13:34 Vancomycin Hcl 125 Mg Oral Capsule PO 11/30/24 00:01 250 mg Q6HR KEVIN Administration Vancomycin HCl 125 mg 11/30/24 06:00 Vancomycin Hcl 125 Mg Oral Capsule PO 12/07/24 00:01 Q6HR KEVIN Vancomycin HCl 125 mg 12/07/24 09:00 Vancomycin Hcl 125 Mg Oral Capsule PO 12/13/24 21:01 Q12HR [facility] Vancomycin HCl 125 mg 12/14/24 09:00 Vancomycin Hcl 125 Mg Oral Capsule PO 12/27/24 09:01 DAILY [facility] Vancomycin HCl 125 mg 12/28/24 09:00 Vancomycin Hcl 125 Mg Oral Capsule PO 01/09/25 09:01 Q48HR [facility] Radiology Results: ITS Impressions Abdomen/Pelvis CT 11/04/24 12:36 IMPRESSION: 1. No evidence of bowel perforation. 2. Persistent severe pancolitis. 3. New small scattered ascites. 4. New small pleural effusions and significant bibasilar atelectasis. Renal Ultrasound 11/04/24 19:07 Impression: Simple appearing left renal cyst. No significant medical renal disease or obstruction Abdomen X-Ray 11/05/24 16:02 Impression: 1. Findings concerning for small bowel obstruction. CT is suggested Chest/Abdomen/Pelvis CT 11/05/24 17:04 IMPRESSION: 1. Diffuse colitis detailed above, correlate for underlying pseudomembranous colitis. No perforation or abscess. Follow-up recommended to assess. 2. CHF with superimposed probable bronchopneumonia. 3. Incidental findings above. Contrast-enhanced MRI recommended Head CT 11/06/24 12:46 Impression: 1.No acute intracranial abnormality. Thoracentesis Ultrasound 11/08/24 11:36 IMPRESSION: 1. Successful ultrasound-guided thoracentesis yielding 250 mL of yellow fluid. Chest X-Ray 11/11/24 08:57 IMPRESSION: 1. No significant change. 2. Pleural effusions with bibasilar atelectasis and/or airspace disease. 3. No pneumothorax. Labs Labs: Laboratory Results - last 24 hr 11/16/24 06:01 WBC 19.7 H RBC 3.49 L Hgb 10.7 L Hct 32.3 L MCV 92.6 MCH 30.7 MCHC 33.1 RDW 13.9 Plt Count 332 MPV 9.4 Immature Gran % (Auto) 1.8 H Neut % (Auto) 87.2 H Lymph % (Auto) 5.3 L [place] % (Auto) 5.2 Eos % (Auto) 0.2 Baso % (Auto) 0.3 Lymph # (Auto) 1.05 [place] # (Auto) 1.0 H Eos # (Auto) 0.0 Baso # (Auto) 0.1 Abs Immat Gran (auto) 0.36 H Absolute Neuts (auto) 17.2 H Absolute Nucleated RBC 0.000 Nucleated RBC % 0.0 Sodium 120 L Potassium 3.2 L Chloride 92 L Carbon Dioxide 22 Anion Gap 6 BUN 41 H Creatinine 1.48 H Estim Creat Clear Calc 28 Estimated GFR 34 L Glucose 108 Calcium 7.5 L Phosphorus 3.3 Magnesium 1.5 L Albumin 2.4 L
[2024-11-16] MEDS: MAGNESIUM SULF 1 GM/D5W 100 ML 1 GM/100 ML BAG IVPB (17:31)
[2024-11-16] MEDS: KCL 20 MEQ/SW 100 ML 100 ML 50 MEQ IVPB (17:31)
[2024-11-16] MEDS: SODIUM CHLORIDE 0.9% IV 1,000 ML 75 ML IV CONT (18:45)
[2024-11-17] VITALS (13 sets, daily range): BP systolic 148–168; BP diastolic 47–78; PULSE 58–72; RESP 14–24; TEMP 36.1–36.6; O2SAT 91–97
[2024-11-17] MEDS: VANCOMYCIN HCL 125 MG ORAL CAPSULE 250 MG PO ×5 (00:26→23:40)
[2024-11-17] MEDS: CENTRAL LINE FLUSH 10 ML IV PUSH ×3 (05:27→21:11)
[2024-11-17 05:50] LABS: Hematocrit 30.9 % (37.0-47.0); Hemoglobin 10.3 g/dL (12.0-15.0); Immature Granulocyte Percent A 2.0 % (0-0.5); Lymphocytes Absolute Auto 0.88 K/mm3 (0.9-3.2); Mean Corpuscular HGB Conc 33.3 g/dl (32-36); Mean Corpuscular Hemoglobin 30.7 pg (26-34); Mean Corpuscular Volume 92.0 fl (80-100); Nucleated Red Blood Cells Absolute Auto 0.000 K/mm3 (0.0-0.012); Nucleated Red Blood Cells Perc 0.0 % (0.0-0.2); Platelet Count Result 296 k/mm3 (150-375); Red Blood Count 3.36 M/mm3 (4.2-5.4); White Blood Count 15.3 K/mm3 (4.5-10.0)
[2024-11-17 06:05] LABS: Albumin Level 2.2 g/dL (3.5-5.1); Anion Gap 4 mmol/L (4-12); Blood Urea Nitrogen 36 mg/dL (7-17); Calcium 7.3 mg/dL (8.4-10.2); Carbon Dioxide 23 mmol/L (22-30); Chloride 92 mmol/L (98-107); Estimated CRCL calculation 32 ml/min; Estimated Glomerular Filt Rate 40; Glucose 113 mg/dL (65-110); Magnesium 1.6 mg/dL (1.6-2.3); Potassium 3.4 mmol/L (3.4-5.0); Sodium 119 mmol/L (137-145)
[2024-11-17 06:20] LABS: Procalcitonin 0.3 ng/mL
--- NOTE | 2024-11-17 07:38 | PC.NURSE ---
Pt has critical Na of 119. Called and reported to Rupa Mata NP, defer to nephrology, called Dr. Walsh, no answer.
--- NOTE | 2024-11-17 08:06 | PC.NURSE ---
Dr. Walsh called back notified of critical sodium on 119 provider reports i am aware and have put in orders.
[2024-11-17] MEDS: SODIUM CHLORIDE 0.9% IV 1,000 ML 75 ML IV CONT (09:28)
[2024-11-17] MEDS: METOPROLOL TARTRATE 50 MG TAB PO ×2 (09:33→17:33)
[2024-11-17] MEDS: APIXABAN 2.5 MG TABLET PO ×2 (09:33→21:06)
[2024-11-17] MEDS: SODIUM CHLORIDE 1 GM TABLET PO ×3 (09:33→21:07)
[2024-11-17] MEDS: cycloSPORINE 0.4 ML OPHTH SOLUTION 1 DROP EACH EYE ×2 (09:33→21:07)
--- NOTE | 2024-11-17 11:50 | P.PNNP_ITS ---
Progress Note: A&P Assessment and Plan (1) Acute kidney injury: Code(s): N17.9 - Acute kidney failure, unspecified Status: Acute Assessment and Plan: * as noted by admission labs (creatinine of 3.03mg/dL) * creatinine normal 2 days prior to admission * baseline creatinine runs ~ 0.9 - 1.1mg/dL * suspect multifactorial etiology: * prerenal factors * infection/early sepsis (diverticulitis/colitis) * contrast exposure (CT of A/P on 11/01) * relative hypotension on presentation * JAMIE-I/diuretic use prior to admission * urinary retention(?) - difficulty urinating on admission so gamble catheter placed * other (?) * off IVFs due to concerns for volume overload * evaluation to date noted: * renal ultrasound without obstruction * urine electrolytes prerenal * urine eosinophils negative * CPK normal * mild proteinuria * holding lisinopril and spironolactone * 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 diff toxin assay * also noted by CT imaging to date: * CT of C/A/P (11/05): Diffuse colitis detailed above, correlate for underlying pseudomembranous colitis. No perforation or abscess * CT of A/P (11/04): No evidence of bowel perforation; persistent severe pancolitis * CT of A/P (11/03): Interval progression of radiographically uncomplicated selby colitis which could be infectious, inflammatory or less likely ischemic in etiology * CT of A/P (11/01): Sigmoid diverticulitis. No perforation or abscess * complicated by diverticulitis * follow culture data * follow trend of WBC * on antibiotics * Infectious Disease following (3) Acute hypoxic respiratory failure: Code(s): J96.01 - Acute respiratory failure with hypoxia Status: Acute Assessment and Plan: * improvement noted * multifactorial etiology: * bilateral pleural effusions * atelectasis * fluid overload * atrial flutter with rapid ventricular response * pancolitis * possible pneumonia (?) * s/p thoracentesis (on 11/08) * Pulmonary recommendations noted * was getting fluid removed with dialysis * may need to consider IV diuretic therapy * follow respiratory status (4) Metabolic acidosis: Code(s): E87.20 - Acidosis, unspecified Status: Acute Assessment and Plan: * resolved * due to DONOVAN/ARF and GI issues/symptoms * fluctuating lactic acid levels noted * dialysis should help correct * follow repeat labs (5) Hyponatremia: Code(s): E87.1 - Hypo-osmolality and hyponatremia Status: Acute Assessment and Plan: * as noted on admission * possible chronic component -- sodium seems to run 129 - 136mmol/L since 2021 * presumably worsen by: * DONOVAN/ARF * prerenal factors * pleural effusions * possible pneumonia * urinary retention * mild improvement s/p intial IVF resuscitation * no improvement with repeat trial of IVFs * evaluation to date: * check TSH, cortisol and repeat urine electrolytes * noted abnormal SPEP and UPEP -- check immunofixation * added salt tablets * may need loop diuretics as well * follow trend of sodium (6) Atrial flutter: Code(s): I48.92 - Unspecified atrial flutter Status: Acute Assessment and Plan: * as noted by events early on 11/05 * rate control strategy * Cardiology recommendations noted * on metoprolol * was on IV amiodarone (temporary measure) * Echo noted (on 11/07) * left ventricular systolic function is hyperdynamic, estimated at > 70% * left ventricular diastolic function is grade I diastolic dysfunction * no aortic valve stenosis * mild tricuspid valve regurgitation * on anticoagulation (7) Elevated troponin: Code(s): R79.89 - Other specified abnormal findings of blood chemistry Status: Acute Assessment and Plan: * due to DONOVAN versus atrial fluttter with RVR * trend noted * Cardiology following (8) Hypertension: Code(s): I10 - Essential (primary) hypertension Status: Chronic Assessment and Plan: * reasonable control * holding JAMIE-I and diuretics due to #1 * follow trend of hemodynamics Will continue to follow. L Subjective Date/time seen: 11/17/24 11:50 Interval history: Follow-up for acute kidney injury/acute renal failure. Renal function/creatinine better in association with slight improvement in urine output with trial of IVFs yesterday/overnight but patient reported some mild shortness of breath so IVFs discontinued due to concerns of possible pulmonary edema; sodium has worsened as well -- started on salt tablets. Exam 2 Narrative: General: elderly but WD/WN female in NAD Heart: RRR, normal S1 and S2; no rub Lungs: coarse and decreased at bases Abdomen: soft, nontender, positive bowel sounds Extremities: no cyanosis or clubbing; trace edema Skin: no nodules Objective Data Vital Signs Vital Signs: Vital Signs Temp Pulse Resp BP Pulse Ox O2 Del Method 11/17/24 11:20 97.7 F 64 14 148/56 H 93 11/17/24 09:35 68 97 Room Air 11/17/24 09:33 70 11/17/24 09:32 70 159/47 H 11/17/24 05:59 97 F L 63 18 156/48 H 91 11/17/24 04:00 58 L 11/17/24 00:00 58 L 11/16/24 20:07 97.1 F L 65 18 153/66 H 94 11/16/24 20:00 64 11/16/24 20:00 Room Air 11/16/24 17:30 67 Intake/Output Intake/Output: Intake & Output 11/14/24 11/15/24 11/16/24 11/17/24 23:59 23:59 23:59 23:59 Intake Total 1098.3 717.9 1120 2019 Output Total 2300 700 675 400 Balance -1201.7 17.9 445 1619 Meds/Results Medications: Active Medications Generic Name Dose Route Start Last Admin Trade Name Freq PRN Reason Stop Dose Admin Acetaminophen 650 mg 11/06/24 12:18 11/09/24 13:38 Acetaminophen 325 Mg Tablet PO 650 mg Q4H PRN Administration Headache Alprazolam 0.25 mg 11/11/24 06:34 11/14/24 10:44 Alprazolam (*Crx) 0.25 Mg Tablet PO 0.25 mg WITH DIALYSIS PRN Administration Anxiety Alteplase, Recombinant 2 mg 11/11/24 21:39 11/11/24 22:17 Alteplase 2 Mg Vial (Cathflo) IV PUSH 2 mg ONCE PRN Administration Line Occlusion Apixaban 2.5 mg 11/15/24 21:00 11/17/24 09:33 Apixaban 2.5 Mg Tablet PO 2.5 mg Q12HR KEVIN Administration Cyclosporine 1 drop 11/03/24 21:00 11/17/24 09:33 Cyclosporine 0.4 Ml Ophth Solution EACH EYE 1 drop Q12HR KEVIN Administration Furosemide 20 mg 11/17/24 17:00 Furosemide 20 Mg Tablet PO 11/17/24 17:01 ONCE ONE Furosemide 20 mg 11/17/24 21:00 Furosemide Inj 40 Mg/4 Ml Vial IV PUSH 11/17/24 21:01 ONCE ONE Albumin Human 50 mls @ 999 mls/hr 11/10/24 09:33 Albutein IVPB 12/10/24 09:32 Q10M PRN HYPOTENSION Metoprolol Tartrate 50 mg 11/08/24 09:00 11/17/24 09:33 Metoprolol Tartrate 50 Mg Tab PO 50 mg BID KEVIN Administration Sodium Chloride 10 ml 11/06/24 22:00 11/17/24 12:47 Central Line Flush IV PUSH 10 ml Q8HR KEVIN Administration Sodium Chloride 10 ml 11/06/24 14:29 Central Line Flush IV PUSH PRN PRN with TPN bag changes Sodium Chloride 20 ml 11/06/24 14:29 11/16/24 05:56 Central Line Flush IV PUSH 20 ml PRN PRN Administration after blood draws Sodium Chloride 1 spray 11/15/24 16:13 11/15/24 17:13 Saline 0.65% Rodrigo Soln 44 Ml Btl NASAL 1 spray Q6HR PRN Administration Congestion Sodium Chloride 1 gm 11/17/24 09:00 11/17/24 09:33 Sodium Chloride 1 Gm Tablet PO 1 gm BID KEVIN Administration Sodium Chloride 1 gm 11/17/24 21:00 Sodium Chloride 1 Gm Tablet PO 11/17/24 21:01 ONCE ONE Trazodone HCl 50 mg 11/03/24 21:00 11/16/24 21:43 Trazodone Hcl 50 Mg Tablet PO 50 mg QHS KEVIN Administration Vancomycin HCl 250 mg 11/16/24 06:00 11/17/24 12:47 Vancomycin Hcl 125 Mg Oral Capsule PO 11/30/24 00:01 250 mg Q6HR KEVIN Administration Vancomycin HCl 125 mg 11/30/24 06:00 Vancomycin Hcl 125 Mg Oral Capsule PO 12/07/24 00:01 Q6HR KEVIN Vancomycin HCl 125 mg 12/07/24 09:00 Vancomycin Hcl 125 Mg Oral Capsule PO 12/13/24 21:01 Q12HR [facility] Vancomycin HCl 125 mg 12/14/24 09:00 Vancomycin Hcl 125 Mg Oral Capsule PO 12/27/24 09:01 DAILY [facility] Vancomycin HCl 125 mg 12/28/24 09:00 Vancomycin Hcl 125 Mg Oral Capsule PO 01/09/25 09:01 Q48HR [facility] Radiology Results: ITS Impressions Abdomen/Pelvis CT 11/04/24 12:36 IMPRESSION: 1. No evidence of bowel perforation. 2. Persistent severe pancolitis. 3. New small scattered ascites. 4. New small pleural effusions and significant bibasilar atelectasis. Renal Ultrasound 11/04/24 19:07 Impression: Simple appearing left renal cyst. No significant medical renal disease or obstruction Abdomen X-Ray 11/05/24 16:02 Impression: 1. Findings concerning for small bowel obstruction. CT is suggested Chest/Abdomen/Pelvis CT 11/05/24 17:04 IMPRESSION: 1. Diffuse colitis detailed above, correlate for underlying pseudomembranous colitis. No perforation or abscess. Follow-up recommended to assess. 2. CHF with superimposed probable bronchopneumonia. 3. Incidental findings above. Contrast-enhanced MRI recommended Head CT 11/06/24 12:46 Impression: 1.No acute intracranial abnormality. Thoracentesis Ultrasound 11/08/24 11:36 IMPRESSION: 1. Successful ultrasound-guided thoracentesis yielding 250 mL of yellow fluid. Chest X-Ray 11/17/24 13:31 IMPRESSION: 1: Grossly stable pleural and parenchymal opacities in the lower halves of the bilateral hemithoraces which likely represents a combination of pleural fluid with adjacent atelectasis/consolidation and/or airspace disease. The findings are similar to the study from 11/16/2024. Recommend follow-up to resolution. Labs Labs: Laboratory Tests 11/17/24 05:42 11/17/24 11:44 11/17/24 05:42 Sodium 119 L* Potassium 3.4 Chloride 92 L Carbon Dioxide 23 Anion Gap 4 BUN 36 H Creatinine 1.29 H Estim Creat Clear Calc 32 Estimated GFR 40 L Glucose 113 H Calcium 7.3 L Phosphorus 3.2 Magnesium 1.6 Albumin 2.2 L Procalcitonin 0.3 Microbiology 11/08/24 10:58 Thoracentesis Fluid Anaerobic Culture Extend Incubation - Preliminary 11/08/24 10:58 Thoracentesis Fluid Sterile Body Fluid Culture - Final
--- NOTE | 2024-11-17 11:50 | PM.PNNEP ---
Progress Note: A&P Assessment and Plan (1) Acute kidney injury: Code(s): N17.9 - Acute kidney failure, unspecified Status: Acute Assessment and Plan: as noted by admission labs (creatinine of 3.03mg/dL) creatinine normal 2 days prior to admission baseline creatinine runs ~ 0.9 - 1.1mg/dL suspect multifactorial etiology: prerenal factors infection/early sepsis (diverticulitis/colitis) contrast exposure (CT of A/P on 11/01) relative hypotension on presentation JAMIE-I/diuretic use prior to admission urinary retention(?) - difficulty urinating on admission so gamble catheter placed other (?) off IVFs due to concerns for volume overload evaluation to date noted: renal ultrasound without obstruction urine electrolytes prerenal urine eosinophils negative CPK normal mild proteinuria holding lisinopril and spironolactone 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 diff toxin assay also noted by CT imaging to date: CT of C/A/P (11/05): Diffuse colitis detailed above, correlate for underlying pseudomembranous colitis. No perforation or abscess CT of A/P (11/04): No evidence of bowel perforation; persistent severe pancolitis CT of A/P (11/03): Interval progression of radiographically uncomplicated selby colitis which could be infectious, inflammatory or less likely ischemic in etiology CT of A/P (11/01): Sigmoid diverticulitis. No perforation or abscess complicated by diverticulitis follow culture data follow trend of WBC on antibiotics Infectious Disease following (3) Acute hypoxic respiratory failure: Code(s): J96.01 - Acute respiratory failure with hypoxia Status: Acute Assessment and Plan: improvement noted multifactorial etiology: bilateral pleural effusions atelectasis fluid overload atrial flutter with rapid ventricular response pancolitis possible pneumonia (?) s/p thoracentesis (on 11/08) Pulmonary recommendations noted was getting fluid removed with dialysis may need to consider IV diuretic therapy follow respiratory status (4) Metabolic acidosis: Code(s): E87.20 - Acidosis, unspecified Status: Acute Assessment and Plan: resolved due to DONOVAN/ARF and GI issues/symptoms fluctuating lactic acid levels noted dialysis should help correct follow repeat labs (5) Hyponatremia: Code(s): E87.1 - Hypo-osmolality and hyponatremia Status: Acute Assessment and Plan: as noted on admission possible chronic component -- sodium seems to run 129 - 136mmol/L since 2021 presumably worsen by: DONOVAN/ARF prerenal factors pleural effusions possible pneumonia urinary retention mild improvement s/p intial IVF resuscitation no improvement with repeat trial of IVFs evaluation to date: check TSH, cortisol and repeat urine electrolytes noted abnormal SPEP and UPEP -- check immunofixation added salt tablets may need loop diuretics as well follow trend of sodium (6) Atrial flutter: Code(s): I48.92 - Unspecified atrial flutter Status: Acute Assessment and Plan: as noted by events early on 11/05 rate control strategy Cardiology recommendations noted on metoprolol was on IV amiodarone (temporary measure) Echo noted (on 11/07) left ventricular systolic function is hyperdynamic, estimated at > 70% left ventricular diastolic function is grade I diastolic dysfunction no aortic valve stenosis mild tricuspid valve regurgitation on anticoagulation (7) Elevated troponin: Code(s): R79.89 - Other specified abnormal findings of blood chemistry Status: Acute Assessment and Plan: due to DONOVAN versus atrial fluttter with RVR trend noted Cardiology following (8) Hypertension: Code(s): I10 - Essential (primary) hypertension Status: Chronic Assessment and Plan: reasonable control holding JAMIE-I and diuretics due to #1 follow trend of hemodynamics Will continue to follow. Subjective Date/time seen: 11/17/24 11:50 Interval history: Follow-up for acute kidney injury/acute renal failure. Renal function/creatinine better in association with slight improvement in urine output with trial of IVFs yesterday/overnight but patient reported some mild shortness of breath so IVFs discontinued due to concerns of possible pulmonary edema; sodium has worsened as well -- started on salt tablets. Exam Narrative: General: elderly but WD/WN female in NAD Heart: RRR, normal S1 and S2; no rub Lungs: coarse and decreased at bases Abdomen: soft, nontender, positive bowel sounds Extremities: no cyanosis or clubbing; trace edema Skin: no nodules Objective Data Vital Signs Vital Signs: Vital Signs Temp Pulse Resp BP Pulse Ox O2 Del Method 11/17/24 11:20 97.7 F 64 14 148/56 H 93 11/17/24 09:35 68 97 Room Air 11/17/24 09:33 70 11/17/24 09:32 70 159/47 H 11/17/24 05:59 97 F L 63 18 156/48 H 91 11/17/24 04:00 58 L 11/17/24 00:00 58 L 11/16/24 20:07 97.1 F L 65 18 153/66 H 94 11/16/24 20:00 64 11/16/24 20:00 Room Air 11/16/24 17:30 67 Intake/Output Intake/Output: Intake & Output 11/14/24 11/15/24 11/16/24 11/17/24 23:59 23:59 23:59 23:59 Intake Total 1098.3 717.9 1120 2019 Output Total 2300 700 675 400 Balance -1201.7 17.9 445 1619 Meds/Results Medications: Active Medications Generic Name Dose Route Start Last Admin Trade Name Freq PRN Reason Stop Dose Admin Acetaminophen 650 mg 11/06/24 12:18 11/09/24 13:38 Acetaminophen 325 Mg Tablet PO 650 mg Q4H PRN Administration Headache Alprazolam 0.25 mg 11/11/24 06:34 11/14/24 10:44 Alprazolam (*Crx) 0.25 Mg Tablet PO 0.25 mg WITH DIALYSIS PRN Administration Anxiety Alteplase, Recombinant 2 mg 11/11/24 21:39 11/11/24 22:17 Alteplase 2 Mg Vial (Cathflo) IV PUSH 2 mg ONCE PRN Administration Line Occlusion Apixaban 2.5 mg 11/15/24 21:00 11/17/24 09:33 Apixaban 2.5 Mg Tablet PO 2.5 mg Q12HR KEVIN Administration Cyclosporine 1 drop 11/03/24 21:00 11/17/24 09:33 Cyclosporine 0.4 Ml Ophth Solution EACH EYE 1 drop Q12HR KEVIN Administration Furosemide 20 mg 11/17/24 17:00 Furosemide 20 Mg Tablet PO 11/17/24 17:01 ONCE ONE Furosemide 20 mg 11/17/24 21:00 Furosemide Inj 40 Mg/4 Ml Vial IV PUSH 11/17/24 21:01 ONCE ONE Albumin Human 50 mls @ 999 mls/hr 11/10/24 09:33 Albutein IVPB 12/10/24 09:32 Q10M PRN HYPOTENSION Metoprolol Tartrate 50 mg 11/08/24 09:00 11/17/24 09:33 Metoprolol Tartrate 50 Mg Tab PO 50 mg BID KEVIN Administration Sodium Chloride 10 ml 11/06/24 22:00 11/17/24 12:47 Central Line Flush IV PUSH 10 ml Q8HR KEVIN Administration Sodium Chloride 10 ml 11/06/24 14:29 Central Line Flush IV PUSH PRN PRN with TPN bag changes Sodium Chloride 20 ml 11/06/24 14:29 11/16/24 05:56 Central Line Flush IV PUSH 20 ml PRN PRN Administration after blood draws Sodium Chloride 1 spray 11/15/24 16:13 11/15/24 17:13 Saline 0.65% Rodrigo Soln 44 Ml Btl NASAL 1 spray Q6HR PRN Administration Congestion Sodium Chloride 1 gm 11/17/24 09:00 11/17/24 09:33 Sodium Chloride 1 Gm Tablet PO 1 gm BID KEVIN Administration Sodium Chloride 1 gm 11/17/24 21:00 Sodium Chloride 1 Gm Tablet PO 11/17/24 21:01 ONCE ONE Trazodone HCl 50 mg 11/03/24 21:00 11/16/24 21:43 Trazodone Hcl 50 Mg Tablet PO 50 mg QHS KEVIN Administration Vancomycin HCl 250 mg 11/16/24 06:00 11/17/24 12:47 Vancomycin Hcl 125 Mg Oral Capsule PO 11/30/24 00:01 250 mg Q6HR KEVIN Administration Vancomycin HCl 125 mg 11/30/24 06:00 Vancomycin Hcl 125 Mg Oral Capsule PO 12/07/24 00:01 Q6HR [facility] Vancomycin HCl 125 mg 12/07/24 09:00 Vancomycin Hcl 125 Mg Oral Capsule PO 12/13/24 21:01 Q12HR [facility] Vancomycin HCl 125 mg 12/14/24 09:00 Vancomycin Hcl 125 Mg Oral Capsule PO 12/27/24 09:01 DAILY [facility] Vancomycin HCl 125 mg 12/28/24 09:00 Vancomycin Hcl 125 Mg Oral Capsule PO 01/09/25 09:01 Q48HR [facility] Radiology Results: ITS Impressions Abdomen/Pelvis CT 11/04/24 12:36 IMPRESSION: 1. No evidence of bowel perforation. 2. Persistent severe pancolitis. 3. New small scattered ascites. 4. New small pleural effusions and significant bibasilar atelectasis. Renal Ultrasound 11/04/24 19:07 Impression: Simple appearing left renal cyst. No significant medical renal disease or obstruction Abdomen X-Ray 11/05/24 16:02 Impression: 1. Findings concerning for small bowel obstruction. CT is suggested Chest/Abdomen/Pelvis CT 11/05/24 17:04 IMPRESSION: 1. Diffuse colitis detailed above, correlate for underlying pseudomembranous colitis. No perforation or abscess. Follow-up recommended to assess. 2. CHF with superimposed probable bronchopneumonia. 3. Incidental findings above. Contrast-enhanced MRI recommended Head CT 11/06/24 12:46 Impression: 1.No acute intracranial abnormality. Thoracentesis Ultrasound 11/08/24 11:36 IMPRESSION: 1. Successful ultrasound-guided thoracentesis yielding 250 mL of yellow fluid. Chest X-Ray 11/17/24 13:31 IMPRESSION: 1: Grossly stable pleural and parenchymal opacities in the lower halves of the bilateral hemithoraces which likely represents a combination of pleural fluid with adjacent atelectasis/consolidation and/or airspace disease. The findings are similar to the study from 11/16/2024. Recommend follow-up to resolution. Labs Labs: Laboratory Tests 11/17/24 05:42 11/17/24 11:44 11/17/24 05:42 Sodium 119 L* Potassium 3.4 Chloride 92 L Carbon Dioxide 23 Anion Gap 4 BUN 36 H Creatinine 1.29 H Estim Creat Clear Calc 32 Estimated GFR 40 L Glucose 113 H Calcium 7.3 L Phosphorus 3.2 Magnesium 1.6 Albumin 2.2 L Procalcitonin 0.3 Microbiology 11/08/24 10:58 Thoracentesis Fluid Anaerobic Culture Extend Incubation - Preliminary 11/08/24 10:58 Thoracentesis Fluid Sterile Body Fluid Culture - Final
[2024-11-17 12:14] LABS: Anion Gap 4 mmol/L (4-12); Blood Urea Nitrogen 36 mg/dL (7-17); Calcium 7.2 mg/dL (8.4-10.2); Carbon Dioxide 24 mmol/L (22-30); Chloride 91 mmol/L (98-107); Estimated CRCL calculation 33 ml/min; Estimated Glomerular Filt Rate 41; Glucose 179 mg/dL (65-110); Potassium 3.3 mmol/L (3.4-5.0); Sodium 119 mmol/L (137-145)
--- NOTE | 2024-11-17 12:34 | P.PNINF_ITS ---
Progress Note: A&P Assessment and Plan (1) Clostridium difficile colitis: Code(s): A04.72 - Enterocolitis due to Clostridium difficile, not specified as recurrent Status: Acute Assessment and Plan: -Severe C.difficile colitis has improved significantly -Diarrhea resolving (2) Leukocytosis: Code(s): D72.829 - Elevated white blood cell count, unspecified Status: Acute Assessment and Plan: -Reactive from C.difficile infection -WBC improving overall -Continue to monitor (3) Diverticulitis large intestine: Code(s): K57.32 - Diverticulitis of large intestine without perforation or abscess without bleeding Status: Acute Assessment and Plan: -Diagnosed one week prior to admission -S/P Augmentin x 5 days prior to admission -Discontinued Zosyn on 11/10/24 as patient has completed 8 day course for diverticulitis (4) Colitis: Code(s): K52.9 - Noninfective gastroenteritis and colitis, unspecified Status: Acute Assessment and Plan: -Pancolitis noted on CT -Due to C.difficile colitis (5) Acute kidney injury: Code(s): N17.9 - Acute kidney failure, unspecified Status: Acute Assessment and Plan: -Management as per Nephrology service -Plans for short-term HD (6) Pleural effusion: Code(s): J90 - Pleural effusion, not elsewhere classified Status: Acute Assessment and Plan: -S/P Left thoracentesis 11/08/24 -Pleural fluid studies not consistent with empyema -Await pleural fluid cultures negative for growth -Management as per Pulmonary service Plan -Continue enteral Vancomycin for treatment of C.difficile colitis; started tapering to Vancomycin 250mg po Q6hrs on 11/16/24 -Completed empiric course of metronidazole IV on 11/14/24 -Follow off other systemic antimicrobials -Follow CBC and renal function Antimicrobial plan of care discussed with patient. All questions answered Patient was seen via video telehealth consultation with the assistance of staff. Chart, data, and patient independently reviewed. Patient was located at [facility] while I was located in my [place] office. Received verbal consent from patient. Subjective Date/time seen: 11/17/24 12:34 Interval history: Patient afebrile. Feeling better overall. Diarrhea improving. Review of Systems Review of Systems: All systems reviewed & are unremarkable except as noted in HPI and below Exam Narrative: Gen: A&Ox3 Pulm: minimal conversational dyspnea Derm: no rash Abd: decreased distension, no TTP with palpation and no guarding/rebound TTP Lines: RUE PICC intact Objective Data Vital Signs Vital Signs: Vital Signs - 24 hr 11/16/24 13:26 11/16/24 16:00 11/16/24 17:30 Temperature 97.7 F Pulse Rate 68 65 67 Respiratory Rate 18 Blood Pressure 148/52 H Pulse Oximetry 94 Oxygen Delivery 11/16/24 20:00 11/16/24 20:00 11/16/24 20:07 Temperature 97.1 F L Pulse Rate 64 65 Respiratory Rate 18 Blood Pressure 153/66 H Pulse Oximetry 94 Oxygen Delivery Room Air 11/17/24 00:00 11/17/24 04:00 11/17/24 05:59 Temperature 97 F L Pulse Rate 58 L 58 L 63 Respiratory Rate 18 Blood Pressure 156/48 H Pulse Oximetry 91 Oxygen Delivery 11/17/24 09:32 11/17/24 09:33 Temperature Pulse Rate 70 70 Respiratory Rate Blood Pressure 159/47 H Pulse Oximetry Oxygen Delivery Intake/Output Intake/Output: Intake & Output 11/14/24 11/15/24 11/16/24 11/17/24 23:59 23:59 23:59 23:59 Intake Total 1098.3 717.9 1120 1899 Output Total 2300 700 675 400 Balance -1201.7 17.9 445 1499 Meds/Results Medications: Active Medications Generic Name Dose Route Start Last Admin Trade Name Freq PRN Reason Stop Dose Admin Acetaminophen 650 mg 11/06/24 12:18 11/09/24 13:38 Acetaminophen 325 Mg Tablet PO 650 mg Q4H PRN Administration Headache Alprazolam 0.25 mg 11/11/24 06:34 11/14/24 10:44 Alprazolam (*Crx) 0.25 Mg Tablet PO 0.25 mg WITH DIALYSIS PRN Administration Anxiety Alteplase, Recombinant 2 mg 11/11/24 21:39 11/11/24 22:17 Alteplase 2 Mg Vial (Cathflo) IV PUSH 2 mg ONCE PRN Administration Line Occlusion Apixaban 2.5 mg 11/15/24 21:00 11/17/24 09:33 Apixaban 2.5 Mg Tablet PO 2.5 mg Q12HR KEVIN Administration Cyclosporine 1 drop 11/03/24 21:00 11/17/24 09:33 Cyclosporine 0.4 Ml Ophth Solution EACH EYE 1 drop Q12HR KEVIN Administration Albumin Human 50 mls @ 999 mls/hr 11/10/24 09:33 Albutein IVPB 12/10/24 09:32 Q10M PRN HYPOTENSION Metoprolol Tartrate 50 mg 11/08/24 09:00 11/17/24 09:33 Metoprolol Tartrate 50 Mg Tab PO 50 mg BID KEVIN Administration Sodium Chloride 10 ml 11/06/24 22:00 11/17/24 05:27 Central Line Flush IV PUSH 10 ml Q8HR KEVIN Administration Sodium Chloride 10 ml 11/06/24 14:29 Central Line Flush IV PUSH PRN PRN with TPN bag changes Sodium Chloride 20 ml 11/06/24 14:29 11/16/24 05:56 Central Line Flush IV PUSH 20 ml PRN PRN Administration after blood draws Sodium Chloride 1 spray 11/15/24 16:13 11/15/24 17:13 Saline 0.65% Rodrigo Soln 44 Ml Btl NASAL 1 spray Q6HR PRN Administration Congestion Sodium Chloride 1 gm 11/17/24 09:00 11/17/24 09:33 Sodium Chloride 1 Gm Tablet PO 1 gm BID KEVIN Administration Trazodone HCl 50 mg 11/03/24 21:00 11/16/24 21:43 Trazodone Hcl 50 Mg Tablet PO 50 mg QHS KEVIN Administration Vancomycin HCl 250 mg 11/16/24 06:00 11/17/24 05:27 Vancomycin Hcl 125 Mg Oral Capsule PO 11/30/24 00:01 250 mg Q6HR KEVIN Administration Vancomycin HCl 125 mg 11/30/24 06:00 Vancomycin Hcl 125 Mg Oral Capsule PO 12/07/24 00:01 Q6HR [facility] Vancomycin HCl 125 mg 12/07/24 09:00 Vancomycin Hcl 125 Mg Oral Capsule PO 12/13/24 21:01 Q12HR [facility] Vancomycin HCl 125 mg 12/14/24 09:00 Vancomycin Hcl 125 Mg Oral Capsule PO 12/27/24 09:01 DAILY [facility] Vancomycin HCl 125 mg 12/28/24 09:00 Vancomycin Hcl 125 Mg Oral Capsule PO 01/09/25 09:01 Q48HR [facility] Radiology Results: ITS Impressions Abdomen/Pelvis CT 11/04/24 12:36 IMPRESSION: 1. No evidence of bowel perforation. 2. Persistent severe pancolitis. 3. New small scattered ascites. 4. New small pleural effusions and significant bibasilar atelectasis. Renal Ultrasound 11/04/24 19:07 Impression: Simple appearing left renal cyst. No significant medical renal disease or obstr uction Abdomen X-Ray 11/05/24 16:02 Impression: 1. Findings concerning for small bowel obstruction. CT is suggested Chest/Abdomen/Pelvis CT 11/05/24 17:04 IMPRESSION: 1. Diffuse colitis detailed above, correlate for underlying pseudomembranous colitis. No perforation or abscess. Follow-up recommended to assess. 2. CHF with superimposed probable bronchopneumonia. 3. Incidental findings above. Contrast-enhanced MRI recommended Head CT 11/06/24 12:46 Impression: 1.No acute intracranial abnormality. Thoracentesis Ultrasound 11/08/24 11:36 IMPRESSION: 1. Successful ultrasound-guided thoracentesis yielding 250 mL of yellow fluid. Chest X-Ray 11/16/24 18:41 IMPRESSION: 1. Mild interstitial pulmonary edema. 2. Persistent pleural effusions with bibasilar atelectasis and/or airspace disease. Labs Labs: Laboratory Results - last 24 hr 11/17/24 11/17/24 05:42 11:44 WBC 15.3 H RBC 3.36 L Hgb 10.3 L Hct 30.9 L MCV 92.0 MCH 30.7 MCHC 33.3 RDW 13.9 Plt Count 296 MPV 9.6 Immature Gran % (Auto) 2.0 H Neut % (Auto) 85.6 H Lymph % (Auto) 5.8 L [place] % (Auto) 6.0 Eos % (Auto) 0.3 Baso % (Auto) 0.3 Lymph # (Auto) 0.88 L [place] # (Auto) 0.9 H Eos # (Auto) 0.1 Baso # (Auto) 0.1 Abs Immat Gran (auto) 0.30 H Absolute Neuts (auto) 13.1 H Absolute Nucleated RBC 0.000 Nucleated RBC % 0.0 Sodium 119 L* 119 L* Potassium 3.4 3.3 L Chloride 92 L 91 L Carbon Dioxide 23 24 Anion Gap 4 4 BUN 36 H 36 H Creatinine 1.29 H 1.26 H Estim Creat Clear Calc 32 33 Estimated GFR 40 L 41 L Glucose 113 H 179 H Calcium 7.3 L 7.2 L Phosphorus 3.2 Magnesium 1.6 Albumin 2.2 L Procalcitonin 0.3
[2024-11-17] MEDS: POTASSIUM CHLORIDE 20 MEQ ER TABLET PO (12:47)
--- NOTE | 2024-11-17 17:25 | P.PNIM_ITS ---
Progress Note: A&P Assessment and Plan (1) Hypertension: Code(s): I10 - Essential (primary) hypertension Status: Chronic (2) Elevated troponin: Code(s): R79.89 - Other specified abnormal findings of blood chemistry Status: Acute (3) Atrial flutter: Code(s): I48.92 - Unspecified atrial flutter Status: Acute (4) Pancolitis: Code(s): K52.9 - Noninfective gastroenteritis and colitis, unspecified Status: Acute (5) Acute kidney injury: Code(s): N17.9 - Acute kidney failure, unspecified Status: Acute (6) Metabolic acidosis: Code(s): E87.20 - Acidosis, unspecified Status: Acute (7) Acute hypoxic respiratory failure: Code(s): J96.01 - Acute respiratory failure with hypoxia Status: Acute (8) Pleural effusion: Code(s): J90 - Pleural effusion, not elsewhere classified Status: Acute (9) Clostridium difficile colitis: Code(s): A04.72 - Enterocolitis due to Clostridium difficile, not specified as recurrent Status: Acute Plan 78-year-old female with past medical history of hypertension, class 1 obesity, presents the hospital with acute abdominal pain. Patient presented to the emergency room on 11/01/2021 and diagnosed with diverticulitis without abscess and sent home with p.o. antibiotics. Patient complains of explosive diarrhea and abdominal pain, denied nausea or vomiting. Lab work in the ED shows leukocytosis at 21.8 sodium of 123, chloride 91, carbon dioxide 17, anion gap of 15, BUN of 31, creatinine of 3.30 with baseline being 0.99, GFR 15, glucose 241, calcium 7.9, CT abdomen pelvis show Interval progression of radiographically uncomplicated selby colitis which could be infectious, inflammatory or less likely ischemic in etiology. 11/17/2024 update, the patient is improving in regard to her leukocytosis and C diff. infectious disease has begun to taper her vancomycin, agree. Serum creatinine improving, urine output improving but she has pulmonary edema/shortness of breath after receiving IV fluids which were stopped. She also has lower extremity edema, her albumin is low at 2.2. She has not had dialysis in a few days, Nephrology continues to follow. They have added salt tablets. Continue to trend BMP. Received Lasix today. Again encouraged her to eat more and use the incentive spirometer to which she agrees. Clostridium difficulty associated colitis: vancomycin 500 mg p.o. q.6 hours on 11/06/2024, begin taper on 11/16/2024. Metronidazole complete from 11/08/2024 to 11/15/2024 Appreciate ID recommendations Zosyn discontinued Leukocytosis persistent however patient has improved clinically. No abdominal pain, stool is becoming more formed. Discontinue rectal tube on 11/15/2024. Continue Banatrol. Acute kidney injury/hyponatremia/metabolic acidosis: Infection vs Contrast related injury vs prerenal. Creatinine normal 2 days prior to admission Nephrology is following, right IJ Cecil dialysis catheter placed on 11/10/2024. Dialysis started on 11/10/2024. Nephrology continuing to manage, discussed with Dr. Walsh. Renal ultrasound without obstruction, urine electrolytes pre renal, urine eosinophils negative, CPK normal, mild proteinuria Holding lisinopril and spironolactone Holland catheter in place Follow renal function labs and urine output Disposition pending. 11/16/2024: Discussed with Nephrology. No dialysis planned for today. Patient has about 500 cc of urine output in the Holland catheter since 4:00 a.m.. Will replace her electrolytes gently. Otherwise, she is very weak. Continue with PT/OT. Patient is enthusiastic to participate but she feels very weak. We tried to have her perform a incentive spirometer at bedside and she can only pull in about 500. Encouraged her to keep trying this. Consult dietitian. She is only eating about 15% of her meals. Atrial flutter/hypertension/hyperlipidemia: New diagnosis, now converted to sinus rhythm. Continue metoprolol 50 mg p.o. b.i.d.. Digoxin stopped due to renal failure Keep potassium greater than 4 magnesium greater than 2, keep renal failure in consideration. Lisinopril and spironolactone on hold. Amlodipine on hold to allow titration of beta-christine [employer] simvastatin on hold. Continue monitoring blood pressure. on telemetry. Heparin GTT transition to apixaban 2.5 mg p.o. b.i.d. on 11/15/2024. Acute hypoxic respiratory failure: Pulmonology consulted. Less likely pneumonia, pneumonia specific antibiotics discontinued. Status post thoracentesis on 11/08/2024 showing exudative effusion, not infectious, macrophage predominant, likely related to colitis/fluid overload related to acute kidney injury. Echocardiogram on 10/08 demonstrating normal left ventricular function. EZ Pap started for bilateral atelectasis. She is not mobile. Encouraged to work with therapy. 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 q.h.s. Full code Saline lock IV Rectal tube in place Holland catheter in place Continue dialysis per Nephrology Continue apixaban 2.5 mg p.o. b.i.d.. Heart healthy, renal dialysis diet Disposition pending: Continue PT/OT evaluations and sessions. She is very weak, prior to admission she is independent and without health issues. I encouraged her to work with therapy. Time Spent With Patient Time with patient: Greater than 35 minutes Subjective Date/time seen: 11/17/24 17:25 Interval history: Patient has no symptoms to report today other than feeling a bit stressed because her with dementia for got she has been in the hospital and called her about 10 times Review of Systems Review of Systems: All systems reviewed & are unremarkable except as noted in HPI and below (Subjective) Exam Const: General: comfortable and no acute distress HENMT: Mouth: Yes dry mucous membranes Eyes: Pupils: Equal, round and reactive pupils present Neck: Neck: supple Resp: Effort & Inspection: normal respiratory effort Other: Scant crackles Cardio: Rate: regular rate Rhythm: regular rhythm GI: GI Palp: No Tenderness to palpation present (GI) and No Guarding due to palpation present (GI) Other: Mild distension but soft Neuro: Motor exam (neuro): 5/5 motor strength present throughout Extrem: Other: 1-2 +pitting edema bilateral lower extre mities Objective Data Vital Signs Vital Signs: Vital Signs - 24 hr 11/16/24 17:30 11/16/24 20:00 11/16/24 20:00 Temperature Pulse Rate 67 64 Respiratory Rate Blood Pressure Pulse Oximetry Oxygen Delivery Room Air 11/16/24 20:07 11/17/24 00:00 11/17/24 04:00 Temperature 97.1 F L Pulse Rate 65 58 L 58 L Respiratory Rate 18 Blood Pressure 153/66 H Pulse Oximetry 94 Oxygen Delivery 11/17/24 05:59 11/17/24 09:32 11/17/24 09:33 Temperature 97 F L Pulse Rate 63 70 70 Respiratory Rate 18 Blood Pressure 156/48 H 159/47 H Pulse Oximetry 91 Oxygen Delivery 11/17/24 09:35 11/17/24 09:35 11/17/24 12:00 Temperature Pulse Rate 68 68 Respiratory Rate Blood Pressure Pulse Oximetry 97 Oxygen Delivery Room Air 11/17/24 14:00 11/17/24 16:00 Temperature 97.7 F Pulse Rate 64 67 Respiratory Rate 14 Blood Pressure 148/56 H Pulse Oximetry 93 Oxygen Delivery Intake/Output Intake/Output: Intake & Output 11/14/24 11/15/24 11/16/24 11/17/24 23:59 23:59 23:59 23:59 Intake Total 1098.3 717.9 1120 2019 Output Total 2300 700 675 400 Balance -1201.7 17.9 445 1619 Meds/Results Medications: Active Medications Generic Name Dose Route Start Last Admin Trade Name Freq PRN Reason Stop Dose Admin Acetaminophen 650 mg 11/06/24 12:18 11/09/24 13:38 Acetaminophen 325 Mg Tablet PO 650 mg Q4H PRN Administration Headache Alprazolam 0.25 mg 11/11/24 06:34 11/14/24 10:44 Alprazolam (*Crx) 0.25 Mg Tablet PO 0.25 mg WITH DIALYSIS PRN Administration Anxiety Alteplase, Recombinant 2 mg 11/11/24 21:39 11/11/24 22:17 Alteplase 2 Mg Vial (Cathflo) IV PUSH 2 mg ONCE PRN Administration Line Occlusion Apixaban 2.5 mg 11/15/24 21:00 11/17/24 09:33 Apixaban 2.5 Mg Tablet PO 2.5 mg Q12HR KEVIN Administration Cyclosporine 1 drop 11/03/24 21:00 11/17/24 09:33 Cyclosporine 0.4 Ml Ophth Solution EACH EYE 1 drop Q12HR KEVIN Administration Furosemide 20 mg 11/17/24 21:00 Furosemide Inj 40 Mg/4 Ml Vial IV PUSH 11/17/24 21:01 ONCE ONE Albumin Human 50 mls @ 999 mls/hr 11/10/24 09:33 Albutein IVPB 12/10/24 09:32 Q10M PRN HYPOTENSION Metoprolol Tartrate 50 mg 11/08/24 09:00 11/17/24 09:33 Metoprolol Tartrate 50 Mg Tab PO 50 mg BID KEVIN Administration Sodium Chloride 10 ml 11/06/24 22:00 11/17/24 12:47 Central Line Flush IV PUSH 10 ml Q8HR KEVIN Administration Sodium Chloride 10 ml 11/06/24 14:29 Central Line Flush IV PUSH PRN PRN with TPN bag changes Sodium Chloride 20 ml 11/06/24 14:29 11/16/24 05:56 Central Line Flush IV PUSH 20 ml PRN PRN Administration after blood draws Sodium Chloride 1 spray 11/15/24 16:13 11/15/24 17:13 Saline 0.65% Rodrigo Soln 44 Ml Btl NASAL 1 spray Q6HR PRN Administration Congestion Sodium Chloride 1 gm 11/17/24 09:00 11/17/24 09:33 Sodium Chloride 1 Gm Tablet PO 1 gm BID KEVIN Administration Sodium Chloride 1 gm 11/17/24 21:00 Sodium Chloride 1 Gm Tablet PO 11/17/24 21:01 ONCE ONE Trazodone HCl 50 mg 11/03/24 21:00 11/16/24 21:43 Trazodone Hcl 50 Mg Tablet PO 50 mg QHS KEVIN Administration Vancomycin HCl 250 mg 11/16/24 06:00 11/17/24 12:47 Vancomycin Hcl 125 Mg Oral Capsule PO 11/30/24 00:01 250 mg Q6HR KEVIN Administration Vancomycin HCl 125 mg 11/30/24 06:00 Vancomycin Hcl 125 Mg Oral Capsule PO 12/07/24 00:01 Q6HR [facility] Vancomycin HCl 125 mg 12/07/24 09:00 Vancomycin Hcl 125 Mg Oral Capsule PO 12/13/24 21:01 Q12HR [facility] Vancomycin HCl 125 mg 12/14/24 09:00 Vancomycin Hcl 125 Mg Oral Capsule PO 12/27/24 09:01 DAILY [facility] Vancomycin HCl 125 mg 12/28/24 09:00 Vancomycin Hcl 125 Mg Oral Capsule PO 01/09/25 09:01 Q48HR [facility] Radiology Results: ITS Impressions Abdomen/Pelvis CT 11/04/24 12:36 IMPRESSION: 1. No evidence of bowel perforation. 2. Persistent severe pancolitis. 3. New small scattered ascites. 4. New small pleural effusions and significant bibasilar atelectasis. Renal Ultrasound 11/04/24 19:07 Impression: Simple appearing left renal cyst. No significant medical renal disease or obstruction Abdomen X-Ray 11/05/24 16:02 Impression: 1. Findings concerning for small bowel obstruction. CT is suggested Chest/Abdomen/Pelvis CT 11/05/24 17:04 IMPRESSION: 1. Diffuse colitis detailed above, correlate for underlying pseudomembranous colitis. No perforation or abscess. Follow-up recommended to assess. 2. CHF with superimposed probable bronchopneumonia. 3. Incidental findings above. Contrast-enhanced MRI recommended Head CT 11/06/24 12:46 Impression: 1.No acute intracranial abnormality. Thoracentesis Ultrasound 11/08/24 11:36 IMPRESSION: 1. Successful ultrasound-guided thoracentesis yielding 250 mL of yellow fluid. Chest X-Ray 11/17/24 13:31 IMPRESSION: 1: Grossly stable pleural and parenchymal opacities in the lower halves of the bilateral hemithoraces which likely represents a combination of pleural fluid with adjacent atelectasis/consolidation and/or airspace disease. The findings are similar to the study from 11/16/2024. Recommend follow-up to resolution. Labs Labs: Laboratory Results - last 24 hr 11/17/24 11/17/24 05:42 11:44 WBC 15.3 H RBC 3.36 L Hgb 10.3 L Hct 30.9 L MCV 92.0 MCH 30.7 MCHC 33.3 RDW 13.9 Plt Count 296 MPV 9.6 Immature Gran % (Auto) 2.0 H Neut % (Auto) 85.6 H Lymph % (Auto) 5.8 L [place] % (Auto) 6.0 Eos % (Auto) 0.3 Baso % (Auto) 0.3 Lymph # (Auto) 0.88 L [place] # (Auto) 0.9 H Eos # (Auto) 0.1 Baso # (Auto) 0.1 Abs Immat Gran (auto) 0.30 H Absolute Neuts (auto) 13.1 H Absolute Nucleated RBC 0.000 Nucleated RBC % 0.0 Sodium 119 L* 119 L* Potassium 3.4 3.3 L Chloride 92 L 91 L Carbon Dioxide 23 24 Anion Gap 4 4 BUN 36 H 36 H Creatinine 1.29 H 1.26 H Estim Creat Clear Calc 32 33 Estimated GFR 40 L 41 L Glucose 113 H 179 H Calcium 7.3 L 7.2 L Phosphorus 3.2 Magnesium 1.6 Albumin 2.2 L Procalcitonin 0.3
[2024-11-17] MEDS: FUROSEMIDE 20 MG TABLET PO (17:32)
[2024-11-17 18:36] LABS: Anion Gap 5 mmol/L (4-12); Blood Urea Nitrogen 35 mg/dL (7-17); Calcium 7.2 mg/dL (8.4-10.2); Carbon Dioxide 22 mmol/L (22-30); Chloride 92 mmol/L (98-107); Estimated CRCL calculation 34 ml/min; Estimated Glomerular Filt Rate 43; Glucose 168 mg/dL (65-110); Potassium 3.5 mmol/L (3.4-5.0); Sodium 119 mmol/L (137-145)
[2024-11-17] MEDS: FUROSEMIDE INJ 40 MG/4 ML VIAL 20 MG IV PUSH (21:07)
[2024-11-18] VITALS (11 sets, daily range): BP systolic 142–162; BP diastolic 47–60; PULSE 61–68; RESP 16–20; TEMP 36.1–36.6; O2SAT 91–93
[2024-11-18 00:04] LABS: Total Protein Urine Random 12 mg/dL; Ur Ttl Prot Creatinine Ratio 0.28 mg/mg (0-0.20); Urea Random Urine 447 MG/DL
[2024-11-18] MEDS: VANCOMYCIN HCL 125 MG ORAL CAPSULE 250 MG PO ×3 (05:07→16:59)
[2024-11-18] MEDS: CENTRAL LINE FLUSH 20 ML IV PUSH ×2 (05:08→20:18)
[2024-11-18] MEDS: CENTRAL LINE FLUSH 10 ML IV PUSH ×3 (05:08→22:13)
[2024-11-18 05:14] LABS: Hematocrit 29.7 % (37.0-47.0); Hemoglobin 10.0 g/dL (12.0-15.0); Immature Granulocyte Percent A 1.6 % (0-0.5); Lymphocytes Absolute Auto 0.82 K/mm3 (0.9-3.2); Mean Corpuscular HGB Conc 33.7 g/dl (32-36); Mean Corpuscular Hemoglobin 30.8 pg (26-34); Mean Corpuscular Volume 91.4 fl (80-100); Nucleated Red Blood Cells Absolute Auto 0.000 K/mm3 (0.0-0.012); Nucleated Red Blood Cells Perc 0.0 % (0.0-0.2); Platelet Count Result 266 k/mm3 (150-375); Red Blood Count 3.25 M/mm3 (4.2-5.4); White Blood Count 14.1 K/mm3 (4.5-10.0)
[2024-11-18 05:40] LABS: Albumin Level 2.2 g/dL (3.5-5.1); Anion Gap 5 mmol/L (4-12); Blood Urea Nitrogen 36 mg/dL (7-17); Calcium 7.4 mg/dL (8.4-10.2); Carbon Dioxide 22 mmol/L (22-30); Chloride 93 mmol/L (98-107); Estimated CRCL calculation 34 ml/min; Estimated Glomerular Filt Rate 42; Glucose 123 mg/dL (65-110); Magnesium 1.5 mg/dL (1.6-2.3); Potassium 3.5 mmol/L (3.4-5.0); Sodium 120 mmol/L (137-145)
[2024-11-18] MEDS: METOPROLOL TARTRATE 50 MG TAB PO ×2 (08:31→17:00)
[2024-11-18] MEDS: FUROSEMIDE 10 MG TABLET PO ×2 (08:31→17:00)
[2024-11-18] MEDS: APIXABAN 2.5 MG TABLET PO ×2 (08:31→22:13)
[2024-11-18] MEDS: cycloSPORINE 0.4 ML OPHTH SOLUTION 1 DROP EACH EYE ×2 (10:12→22:13)
[2024-11-18] MEDS: SODIUM CHLORIDE 1 GM TABLET PO ×2 (10:12→17:00)
--- NOTE | 2024-11-18 10:18 | P.PNNP_ITS ---
Progress Note: A&P Assessment and Plan (1) Acute kidney injury: Code(s): N17.9 - Acute kidney failure, unspecified Status: Acute Assessment and Plan: * relatively stable at this time * as noted by admission labs (creatinine of 3.03mg/dL) * creatinine normal 2 days prior to admission * baseline creatinine runs ~ 0.9 - 1.1mg/dL * suspect multifactorial etiology: * prerenal factors * infection/early sepsis (diverticulitis/colitis) * contrast exposure (CT of A/P on 11/01) * relative hypotension on presentation * JAMIE-I/diuretic use prior to admission * urinary retention(?) - difficulty urinating on admission so gamble catheter placed * other (?) * evaluation to date noted: * renal ultrasound without obstruction * urine electrolytes prerenal * urine eosinophils negative * CPK normal * mild proteinuria * holding lisinopril and spironolactone * 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 diff toxin assay * also noted by CT imaging to date: * CT of C/A/P (11/05): Diffuse colitis detailed above, correlate for underlying pseudomembranous colitis. No perforation or abscess * CT of A/P (11/04): No evidence of bowel perforation; persistent severe pancolitis * CT of A/P (11/03): Interval progression of radiographically uncomplicated selby colitis which could be infectious, inflammatory or less likely ischemic in etiology * CT of A/P (11/01): Sigmoid diverticulitis. No perforation or abscess * complicated by diverticulitis * follow culture data * follow trend of WBC * on antibiotics * Infectious Disease following (3) Acute hypoxic respiratory failure: Code(s): J96.01 - Acute respiratory failure with hypoxia Status: Acute Assessment and Plan: * improvement noted * multifactorial etiology: * bilateral pleural effusions * atelectasis * fluid overload * atrial flutter with rapid ventricular response * pancolitis * possible pneumonia (?) * s/p thoracentesis (on 11/08) * Pulmonary recommendations noted * was getting fluid removed with dialysis * follow respiratory status (4) Metabolic acidosis: Code(s): E87.20 - Acidosis, unspecified Status: Acute Assessment and Plan: * resolved * due to DONOVAN/ARF and GI issues/symptoms * fluctuating lactic acid levels noted * dialysis should help correct * follow repeat labs (5) Hyponatremia: Code(s): E87.1 - Hypo-osmolality and hyponatremia Status: Acute Assessment and Plan: * as noted on admission * possible chronic component -- sodium seems to run 129 - 136mmol/L since 2021 * presumably worsen by: * DONOVAN/ARF * prerenal factors * pleural effusions * possible pneumonia * urinary retention * mild improvement s/p intial IVF resuscitation * no improvement with repeat trial of IVFs * evaluation to date: * repeat urine electrolytes (11/17) non-prerenal * noted abnormal SPEP and UPEP -- checking immunofixation * check TSH and cortisol * started salt tablets * added loop diuretics * could consider fluid restriction but oral intake is already diminished * follow trend of sodium (6) Atrial flutter: Code(s): I48.92 - Unspecified atrial flutter Status: Acute Assessment and Plan: * as noted by events early on 11/05 * rate control strategy * Cardiology recommendations noted * on metoprolol * was on IV amiodarone (temporary measure) * Echo noted (on 11/07) * left ventricular systolic function is hyperdynamic, estimated at > 70% * left ventricular diastolic function is grade I diastolic dysfunction * no aortic valve stenosis * mild tricuspid valve regurgitation * on anticoagulation (7) Elevated troponin: Code(s): R79.89 - Other specified abnormal findings of blood chemistry Status: Acute Assessment and Plan: * due to DONOVAN versus atrial fluttter with RVR * trend noted * Cardiology comments noted (8) Hypertension: Code(s): I10 - Essential (primary) hypertension Status: Chronic Assessment and Plan: * reasonable control * holding JAMIE-I due to #1 * follow trend of hemodynamics Will continue to follow. L Subjective Date/time seen: 11/18/24 10:18 Interval history: Follow-up for acute kidney injury/acute renal failure. No apparent distress noted at the time of my visit -- reports improvement in breathing/respiratory status in comparison to yesterday; sodium slightly better by repeat labs; renal function/creatinine relatively stable at this time without dialytic intervention; . Exam 2 Narrative: General: elderly but WD/WN female in NAD Heart: RRR, normal S1 and S2; no rub Lungs: coarse and decreased at bases Abdomen: soft, nontender, positive bowel sounds Extremities: no cyanosis or clubbing; trace edema Skin: warm and dry Objective Data Vital Signs Vital Signs: Vital Signs Temp Pulse Resp BP Pulse Ox O2 Del Method FiO2 11/18/24 08:31 63 11/18/24 08:25 Room Air 11/18/24 08:00 68 11/18/24 08:00 63 20 93 Room Air 70 11/18/24 05:45 97.8 F 63 20 142/47 H 93 11/18/24 04:00 64 11/18/24 00:00 61 11/17/24 21:00 Room Air 11/17/24 20:51 97.8 F 71 24 H 168/78 H 93 11/17/24 20:00 72 11/17/24 17:33 68 11/17/24 17:29 68 167/53 H 11/17/24 16:00 67 11/17/24 14:00 97.7 F 64 14 148/56 H 93 Intake/Output Intake/Output: Intake & Output 11/15/24 11/16/24 11/17/24 11/18/24 23:59 23:59 23:59 23:59 Intake Total 717.9 1120 2259 540 Output Total 700 675 750 350 Balance 17.9 445 1509 190 Meds/Results Medications: Active Medications Generic Name Dose Route Start Last Admin Trade Name Freq PRN Reason Stop Dose Admin Acetaminophen 650 mg 11/06/24 12:18 11/09/24 13:38 Acetaminophen 325 Mg Tablet PO 650 mg Q4H PRN Administration Headache Alprazolam 0.25 mg 11/11/24 06:34 11/14/24 10:44 Alprazolam (*Crx) 0.25 Mg Tablet PO 0.25 mg WITH DIALYSIS PRN Administration Anxiety Alteplase, Recombinant 2 mg 11/11/24 21:39 11/11/24 22:17 Alteplase 2 Mg Vial (Cathflo) IV PUSH 2 mg ONCE PRN Administration Line Occlusion Apixaban 2.5 mg 11/15/24 21:00 11/18/24 08:31 Apixaban 2.5 Mg Tablet PO 2.5 mg Q12HR KEVIN Administration Cyclosporine 1 drop 11/03/24 21:00 11/18/24 10:12 Cyclosporine 0.4 Ml Ophth Solution EACH EYE 1 drop Q12HR KEVIN Administration Furosemide 10 mg 11/18/24 09:00 11/18/24 08:31 Furosemide 10 Mg Tablet PO 10 mg BID KEVIN Administration Albumin Human 50 mls @ 999 mls/hr 11/10/24 09:33 Albutein IVPB 12/10/24 09:32 Q10M PRN HYPOTENSION Metoprolol Tartrate 50 mg 11/08/24 09:00 11/18/24 08:31 Metoprolol Tartrate 50 Mg Tab PO 50 mg BID KEVIN Administration Sodium Chloride 10 ml 11/06/24 22:00 11/18/24 05:08 Central Line Flush IV PUSH 10 ml Q8HR KEVIN Administration Sodium Chloride 10 ml 11/06/24 14:29 Central Line Flush IV PUSH PRN PRN with TPN bag changes Sodium Chloride 20 ml 11/06/24 14:29 11/18/24 05:08 Central Line Flush IV PUSH 20 ml PRN PRN Administration after blood draws Sodium Chloride 1 spray 11/15/24 16:13 11/15/24 17:13 Saline 0.65% Rodrigo Soln 44 Ml Btl NASAL 1 spray Q6HR PRN Administration Congestion Sodium Chloride 1 gm 11/17/24 09:00 11/18/24 10:12 Sodium Chloride 1 Gm Tablet PO 1 gm BID KEVIN Administration Trazodone HCl 50 mg 11/03/24 21:00 11/17/24 21:06 Trazodone Hcl 50 Mg Tablet PO 50 mg QHS KEVIN Administration Vancomycin HCl 250 mg 11/16/24 06:00 11/18/24 05:07 Vancomycin Hcl 125 Mg Oral Capsule PO 11/30/24 00:01 250 mg Q6HR KEVIN Administration Vancomycin HCl 125 mg 11/30/24 06:00 Vancomycin Hcl 125 Mg Oral Capsule PO 12/07/24 00:01 Q6HR KEVIN Vancomycin HCl 125 mg 12/07/24 09:00 Vancomycin Hcl 125 Mg Oral Capsule PO 12/13/24 21:01 Q12HR [facility] Vancomycin HCl 125 mg 12/14/24 09:00 Vancomycin Hcl 125 Mg Oral Capsule PO 12/27/24 09:01 DAILY [facility] Vancomycin HCl 125 mg 12/28/24 09:00 Vancomycin Hcl 125 Mg Oral Capsule PO 01/09/25 09:01 Q48HR [facility] Radiology Results: ITS Impressions Abdomen/Pelvis CT 11/04/24 12:36 IMPRESSION: 1. No evidence of bowel perforation. 2. Persistent severe pancolitis. 3. New small scattered ascites. 4. New small pleural effusions and significant bibasilar atelectasis. Renal Ultrasound 11/04/24 19:07 Impression: Simple appearing left renal cyst. No significant medical renal disease or obstruction Abdomen X-Ray 11/05/24 16:02 Impression: 1. Findings concerning for small bowel obstruction. CT is suggested Chest/Abdomen/Pelvis CT 11/05/24 17:04 IMPRESSION: 1. Diffuse colitis detailed above, correlate for underlying pseudomembranous colitis. No perforation or abscess. Follow-up recommended to assess. 2. CHF with superimposed probable bronchopneumonia. 3. Incidental findings above. Contrast-enhanced MRI recommended Head CT 11/06/24 12:46 Impression: 1.No acute intracranial abnormality. Thoracentesis Ultrasound 11/08/24 11:36 IMPRESSION: 1. Successful ultrasound-guided thoracentesis yielding 250 mL of yellow fluid. Chest X-Ray 11/18/24 11:32 IMPRESSION: 1. Persistent complete left lower lobe atelectasis, superimposed airspace disease not excluded. 2. Persistent pleural effusions. 3. Mild, if any, interstitial pulmonary edema. Labs Labs: Laboratory Tests 11/18/24 05:05 11/18/24 05:05 Calcium 7.4 L Phosphorus 3.2 Magnesium 1.5 L Albumin 2.2 L
--- NOTE | 2024-11-18 10:18 | PM.PNNEP ---
Progress Note: A&P Assessment and Plan (1) Acute kidney injury: Code(s): N17.9 - Acute kidney failure, unspecified Status: Acute Assessment and Plan: relatively stable at this time as noted by admission labs (creatinine of 3.03mg/dL) creatinine normal 2 days prior to admission baseline creatinine runs ~ 0.9 - 1.1mg/dL suspect multifactorial etiology: prerenal factors infection/early sepsis (diverticulitis/colitis) contrast exposure (CT of A/P on 11/01) relative hypotension on presentation JAMIE-I/diuretic use prior to admission urinary retention(?) - difficulty urinating on admission so gamble catheter placed other (?) evaluation to date noted: renal ultrasound without obstruction urine electrolytes prerenal urine eosinophils negative CPK normal mild proteinuria holding lisinopril and spironolactone 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 diff toxin assay also noted by CT imaging to date: CT of C/A/P (11/05): Diffuse colitis detailed above, correlate for underlying pseudomembranous colitis. No perforation or abscess CT of A/P (11/04): No evidence of bowel perforation; persistent severe pancolitis CT of A/P (11/03): Interval progression of radiographically uncomplicated selby colitis which could be infectious, inflammatory or less likely ischemic in etiology CT of A/P (11/01): Sigmoid diverticulitis. No perforation or abscess complicated by diverticulitis follow culture data follow trend of WBC on antibiotics Infectious Disease following (3) Acute hypoxic respiratory failure: Code(s): J96.01 - Acute respiratory failure with hypoxia Status: Acute Assessment and Plan: improvement noted multifactorial etiology: bilateral pleural effusions atelectasis fluid overload atrial flutter with rapid ventricular response pancolitis possible pneumonia (?) s/p thoracentesis (on 11/08) Pulmonary recommendations noted was getting fluid removed with dialysis follow respiratory status (4) Metabolic acidosis: Code(s): E87.20 - Acidosis, unspecified Status: Acute Assessment and Plan: resolved due to DONOVAN/ARF and GI issues/symptoms fluctuating lactic acid levels noted dialysis should help correct follow repeat labs (5) Hyponatremia: Code(s): E87.1 - Hypo-osmolality and hyponatremia Status: Acute Assessment and Plan: as noted on admission possible chronic component -- sodium seems to run 129 - 136mmol/L since 2021 presumably worsen by: DONOVAN/ARF prerenal factors pleural effusions possible pneumonia urinary retention mild improvement s/p intial IVF resuscitation no improvement with repeat trial of IVFs evaluation to date: repeat urine electrolytes (11/17) non-prerenal noted abnormal SPEP and UPEP -- checking immunofixation check TSH and cortisol started salt tablets added loop diuretics could consider fluid restriction but oral intake is already diminished follow trend of sodium (6) Atrial flutter: Code(s): I48.92 - Unspecified atrial flutter Status: Acute Assessment and Plan: as noted by events early on 11/05 rate control strategy Cardiology recommendations noted on metoprolol was on IV amiodarone (temporary measure) Echo noted (on 11/07) left ventricular systolic function is hyperdynamic, estimated at > 70% left ventricular diastolic function is grade I diastolic dysfunction no aortic valve stenosis mild tricuspid valve regurgitation on anticoagulation (7) Elevated troponin: Code(s): R79.89 - Other specified abnormal findings of blood chemistry Status: Acute Assessment and Plan: due to DONOVAN versus atrial fluttter with RVR trend noted Cardiology comments noted (8) Hypertension: Code(s): I10 - Essential (primary) hypertension Status: Chronic Assessment and Plan: reasonable control holding JAMIE-I due to #1 follow trend of hemodynamics Will continue to follow. Subjective Date/time seen: 11/18/24 10:18 Interval history: Follow-up for acute kidney injury/acute renal failure. No apparent distress noted at the time of my visit -- reports improvement in breathing/respiratory status in comparison to yesterday; sodium slightly better by repeat labs; renal function/creatinine relatively stable at this time without dialytic intervention; . Exam Narrative: General: elderly but WD/WN female in NAD Heart: RRR, normal S1 and S2; no rub Lungs: coarse and decreased at bases Abdomen: soft, nontender, positive bowel sounds Extremities: no cyanosis or clubbing; trace edema Skin: warm and dry Objective Data Vital Signs Vital Signs: Vital Signs Temp Pulse Resp BP Pulse Ox O2 Del Method FiO2 11/18/24 08:31 63 11/18/24 08:25 Room Air 11/18/24 08:00 68 11/18/24 08:00 63 20 93 Room Air 70 11/18/24 05:45 97.8 F 63 20 142/47 H 93 11/18/24 04:00 64 11/18/24 00:00 61 11/17/24 21:00 Room Air 11/17/24 20:51 97.8 F 71 24 H 168/78 H 93 11/17/24 20:00 72 11/17/24 17:33 68 11/17/24 17:29 68 167/53 H 11/17/24 16:00 67 11/17/24 14:00 97.7 F 64 14 148/56 H 93 Intake/Output Intake/Output: Intake & Output 11/15/24 11/16/24 11/17/24 11/18/24 23:59 23:59 23:59 23:59 Intake Total 717.9 1120 2259 540 Output Total 700 675 750 350 Balance 17.9 445 1509 190 Meds/Results Medications: Active Medications Generic Name Dose Route Start Last Admin Trade Name Freq PRN Reason Stop Dose Admin Acetaminophen 650 mg 11/06/24 12:18 11/09/24 13:38 Acetaminophen 325 Mg Tablet PO 650 mg Q4H PRN Administration Headache Alprazolam 0.25 mg 11/11/24 06:34 11/14/24 10:44 Alprazolam (*Crx) 0.25 Mg Tablet PO 0.25 mg WITH DIALYSIS PRN Administration Anxiety Alteplase, Recombinant 2 mg 11/11/24 21:39 11/11/24 22:17 Alteplase 2 Mg Vial (Cathflo) IV PUSH 2 mg ONCE PRN Administration Line Occlusion Apixaban 2.5 mg 11/15/24 21:00 11/18/24 08:31 Apixaban 2.5 Mg Tablet PO 2.5 mg Q12HR KEVIN Administration Cyclosporine 1 drop 11/03/24 21:00 11/18/24 10:12 Cyclosporine 0.4 Ml Ophth Solution EACH EYE 1 drop Q12HR KEVIN Administration Furosemide 10 mg 11/18/24 09:00 11/18/24 08:31 Furosemide 10 Mg Tablet PO 10 mg BID KEVIN Administration Albumin Human 50 mls @ 999 mls/hr 11/10/24 09:33 Albutein IVPB 12/10/24 09:32 Q10M PRN HYPOTENSION Metoprolol Tartrate 50 mg 11/08/24 09:00 11/18/24 08:31 Metoprolol Tartrate 50 Mg Tab PO 50 mg BID KEVIN Administration Sodium Chloride 10 ml 11/06/24 22:00 11/18/24 05:08 Central Line Flush IV PUSH 10 ml Q8HR KEVIN Administration Sodium Chloride 10 ml 11/06/24 14:29 Central Line Flush IV PUSH PRN PRN with TPN bag changes Sodium Chloride 20 ml 11/06/24 14:29 11/18/24 05:08 Central Line Flush IV PUSH 20 ml PRN PRN Administration after blood draws Sodium Chloride 1 spray 11/15/24 16:13 11/15/24 17:13 Saline 0.65% Rodrigo Soln 44 Ml Btl NASAL 1 spray Q6HR PRN Administration Congestion Sodium Chloride 1 gm 11/17/24 09:00 11/18/24 10:12 Sodium Chloride 1 Gm Tablet PO 1 gm BID KEVIN Administration Trazodone HCl 50 mg 11/03/24 21:00 11/17/24 21:06 Trazodone Hcl 50 Mg Tablet PO 50 mg QHS KEVIN Administration Vancomycin HCl 250 mg 11/16/24 06:00 11/18/24 05:07 Vancomycin Hcl 125 Mg Oral Capsule PO 11/30/24 00:01 250 mg Q6HR KEVIN Administration Vancomycin HCl 125 mg 11/30/24 06:00 Vancomycin Hcl 125 Mg Oral Capsule PO 12/07/24 00:01 Q6HR [facility] Vancomycin HCl 125 mg 12/07/24 09:00 Vancomycin Hcl 125 Mg Oral Capsule PO 12/13/24 21:01 Q12HR [facility] Vancomycin HCl 125 mg 12/14/24 09:00 Vancomycin Hcl 125 Mg Oral Capsule PO 12/27/24 09:01 DAILY [facility] Vancomycin HCl 125 mg 12/28/24 09:00 Vancomycin Hcl 125 Mg Oral Capsule PO 01/09/25 09:01 Q48HR [facility] Radiology Results: ITS Impressions Abdomen/Pelvis CT 11/04/24 12:36 IMPRESSION: 1. No evidence of bowel perforation. 2. Persistent severe pancolitis. 3. New small scattered ascites. 4. New small pleural effusions and significant bibasilar atelectasis. Renal Ultrasound 11/04/24 19:07 Impression: Simple appearing left renal cyst. No significant medical renal disease or obstruction Abdomen X-Ray 11/05/24 16:02 Impression: 1. Findings concerning for small bowel obstruction. CT is suggested Chest/Abdomen/Pelvis CT 11/05/24 17:04 IMPRESSION: 1. Diffuse colitis detailed above, correlate for underlying pseudomembranous colitis. No perforation or abscess. Follow-up recommended to assess. 2. CHF with superimposed probable bronchopneumonia. 3. Incidental findings above. Contrast-enhanced MRI recommended Head CT 11/06/24 12:46 Impression: 1.No acute intracranial abnormality. Thoracentesis Ultrasound 11/08/24 11:36 IMPRESSION: 1. Successful ultrasound-guided thoracentesis yielding 250 mL of yellow fluid. Chest X-Ray 11/18/24 11:32 IMPRESSION: 1. Persistent complete left lower lobe atelectasis, superimposed airspace disease not excluded. 2. Persistent pleural effusions. 3. Mild, if any, interstitial pulmonary edema. Labs Labs: Laboratory Tests 11/18/24 05:05 11/18/24 05:05 Calcium 7.4 L Phosphorus 3.2 Magnesium 1.5 L Albumin 2.2 L
--- NOTE | 2024-11-18 17:30 | P.PNIM_ITS ---
Progress Note: A&P Assessment and Plan (1) Hypertension: Code(s): I10 - Essential (primary) hypertension Status: Chronic (2) Elevated troponin: Code(s): R79.89 - Other specified abnormal findings of blood chemistry Status: Acute (3) Atrial flutter: Code(s): I48.92 - Unspecified atrial flutter Status: Acute (4) Pancolitis: Code(s): K52.9 - Noninfective gastroenteritis and colitis, unspecified Status: Acute (5) Acute kidney injury: Code(s): N17.9 - Acute kidney failure, unspecified Status: Acute (6) Metabolic acidosis: Code(s): E87.20 - Acidosis, unspecified Status: Acute (7) Acute hypoxic respiratory failure: Code(s): J96.01 - Acute respiratory failure with hypoxia Status: Acute (8) Pleural effusion: Code(s): J90 - Pleural effusion, not elsewhere classified Status: Acute (9) Clostridium difficile colitis: Code(s): A04.72 - Enterocolitis due to Clostridium difficile, not specified as recurrent Status: Acute Plan 78-year-old female with past medical history of hypertension, class 1 obesity, presents the hospital with acute abdominal pain. Patient presented to the emergency room on 11/01/2021 and diagnosed with diverticulitis without abscess and sent home with p.o. antibiotics. Patient complains of explosive diarrhea and abdominal pain, denied nausea or vomiting. Lab work in the ED shows leukocytosis at 21.8 sodium of 123, chloride 91, carbon dioxide 17, anion gap of 15, BUN of 31, creatinine of 3.30 with baseline being 0.99, GFR 15, glucose 241, calcium 7.9, CT abdomen pelvis show Interval progression of radiographically uncomplicated selby colitis which could be infectious, inflammatory or less likely ischemic in etiology. 11/17/2024 update, the patient is improving in regard to her leukocytosis and C diff. infectious disease has begun to taper her vancomycin, agree. Serum creatinine improving, urine output improving but she has pulmonary edema/shortness of breath after receiving IV fluids which were stopped. She also has lower extremity edema, her albumin is low at 2.2. She has not had dialysis in a few days, Nephrology continues to follow. They have added salt tablets. Continue to trend BMP. Received Lasix today. Again encouraged her to eat more and use the incentive spirometer to which she agrees. 11/18/2024 update: 4 loose bowel movements, small mucousy and green. Patient has no symptoms to report although, she feels as if her energy is improved a bit. No abdominal pain. Continue vancomycin taper per Infectious Disease recommendations. Patient is now on furosemide 10 mg p.o. b.i.d.. Check BMP again now for hyponatremia. Follow Nephrology recommendations otherwise. Replacing magnesium. Clostridium difficulty associated colitis: vancomycin 500 mg p.o. q.6 hours on 11/06/2024, begin taper on 11/16/2024. Metronidazole complete from 11/08/2024 to 11/15/2024 Appreciate ID recommendations Zosyn discontinued Leukocytosis persistent however patient has improved clinically. No abdominal pain, stool is becoming more formed. Discontinue rectal tube on 11/15/2024. Continue Banatrol. Acute kidney injury/hyponatremia/metabolic acidosis: Infection vs Contrast related injury vs prerenal. Creatinine normal 2 days prior to admission Nephrology is following, right IJ Cecil dialysis catheter placed on 11/10/2024. Dialysis started on 11/10/2024. Nephrology continuing to manage, discussed with Dr. Walsh. Renal ultrasound without obstruction, urine electrolytes pre renal, urine eosinophils negative, CPK normal, mild proteinuria Holding lisinopril and spironolactone Holland catheter in place Follow renal function labs and urine output Disposition pending. 11/16/2024: Discussed with Nephrology. No dialysis planned for today. Patient has about 500 cc of urine output in the Holland catheter since 4:00 a.m.. Will replace her electrolytes gently. Otherwise, she is very weak. Continue with PT/OT. Patient is enthusiastic to participate but she feels very weak. We tried to have her perform a incentive spirometer at bedside and she can only pull in about 500. Encouraged her to keep trying this. Consult dietitian. She is only eating about 15% of her meals. Atrial flutter/hypertension/hyperlipidemia: New diagnosis, now converted to sinus rhythm. Continue metoprolol 50 mg p.o. b.i.d.. Digoxin stopped due to renal failure Keep potassium greater than 4 magnesium greater than 2, keep renal failure in consideration. Lisinopril and spironolactone on hold. 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 Continue monitoring blood pressure. on telemetry. Heparin GTT transition to apixaban 2.5 mg p.o. b.i.d. on 11/15/2024. Acute hypoxic respiratory failure: Pulmonology consulted. Less likely pneumonia, pneumonia specific antibiotics discontinued. Status post thoracentesis on 11/08/2024 showing exudative effusion, not infectious, macrophage predominant, likely related to colitis/fluid overload related to acute kidney injury. Echocardiogram on 10/08 demonstrating normal left ventricular function. EZ Pap started for bilateral atelectasis. She is not mobile. Encouraged to work with therapy. Weaned to room air on 11/13/2024 Anxiety: Continue with home Xanax Resume WORKFORCE PLANNING ANALYST trazodone 50 mg p.o. q.h.s. Full code Saline lock IV Rectal tube in place Holland catheter in place Continue dialysis per Nephrology Continue apixaban 2.5 mg p.o. b.i.d.. Heart healthy, renal dialysis diet Disposition pending: Continue PT/OT evaluations and sessions. She is very weak, prior to admission she is independent and without health issues. I encouraged her to work with therapy. Time Spent With Patient Time with patient: Greater than 35 minutes Subjective Date/time seen: 11/18/24 17:30 Interval history: No major acute overnight events. Patient feels as she improved today. She sat up in the chair for an hour and a half. She had 4 bowel movements today, small. Described as loose watery mucousy and green. Review of Systems Review of Systems: All systems reviewed & are unremarkable except as noted in HPI and below (Subjective) Exam Const: General: comfortable and no acute distress HENMT: Mouth: Yes dry mucous membranes Eyes: Pupils: Equal, round and reactive pupils present Neck: Neck: supple Resp: Effort & Inspection: normal respiratory effort Other: Scant crackles Cardio: Rate: regular rate Rhythm: regular rhythm GI: GI Palp: No Tenderness to palpation present (GI) and No Guarding due to palpation present (GI) Other: Mild distension but soft Neuro: Motor exam (neuro): 5/5 motor strength present throughout Extrem: Other: 1-2 +pitting edema bilateral lower extre mities Objective Data Vital Signs Vital Signs: Vital Signs - 24 hr 11/17/24 17:33 11/17/24 20:00 11/17/24 20:51 Temperature 97.8 F Pulse Rate 68 72 71 Respiratory Rate 24 H Blood Pressure 168/78 H Pulse Oximetry 93 Oxygen Delivery Fraction of Inspired Oxygen 11/17/24 21:00 11/18/24 00:00 11/18/24 04:00 Temperature Pulse Rate 61 64 Respiratory Rate Blood Pressure Pulse Oximetry Oxygen Delivery Room Air Fraction of Inspired Oxygen 11/18/24 05:45 11/18/24 08:00 11/18/24 08:00 Temperature 97.8 F Pulse Rate 63 63 68 Respiratory Rate 20 20 Blood Pressure 142/47 H Pulse Oximetry 93 93 Oxygen Delivery Room Air Fraction of Inspired Oxygen 70 11/18/24 08:25 11/18/24 08:31 11/18/24 12:00 Temperature Pulse Rate 63 67 Respiratory Rate Blood Pressure Pulse Oximetry Oxygen Delivery Room Air Fraction of Inspired Oxygen 11/18/24 13:50 11/18/24 17:00 Temperature 97.8 F Pulse Rate 67 67 Respiratory Rate 16 Blood Pressure 162/60 H Pulse Oximetry 91 Oxygen Delivery Fraction of Inspired Oxygen Intake/Output Intake/Output: Intake & Output 11/15/24 11/16/24 11/17/24 11/18/24 23:59 23:59 23:59 23:59 Intake Total 717.9 1120 2259 790 Output Total 700 675 750 580 Balance 17.9 445 1509 210 Meds/Results Medications: Active Medications Generic Name Dose Route Start Last Admin Trade Name Freq PRN Reason Stop Dose Admin Acetaminophen 650 mg 11/06/24 12:18 11/09/24 13:38 Acetaminophen 325 Mg Tablet PO 650 mg Q4H PRN Administration Headache Alprazolam 0.25 mg 11/11/24 06:34 11/14/24 10:44 Alprazolam (*Crx) 0.25 Mg Tablet PO 0.25 mg WITH DIALYSIS PRN Administration Anxiety Alteplase, Recombinant 2 mg 11/11/24 21:39 11/11/24 22:17 Alteplase 2 Mg Vial (Cathflo) IV PUSH 2 mg ONCE PRN Administration Line Occlusion Apixaban 2.5 mg 11/15/24 21:00 11/18/24 08:31 Apixaban 2.5 Mg Tablet PO 2.5 mg Q12HR KEVIN Administration Cyclosporine 1 drop 11/03/24 21:00 11/18/24 10:12 Cyclosporine 0.4 Ml Ophth Solution EACH EYE 1 drop Q12HR KEVIN Administration Furosemide 10 mg 11/18/24 09:00 11/18/24 17:00 Furosemide 10 Mg Tablet PO 10 mg BID KEVIN Administration Albumin Human 50 mls @ 999 mls/hr 11/10/24 09:33 Albutein IVPB 12/10/24 09:32 Q10M PRN HYPOTENSION Magnesium Sulfate 2 gm in 50 mls @ 25 mls/hr 11/18/24 17:25 Magnesium Sulf 2 Gm/Water 50ml IVPB 11/18/24 19:24 ONCE ONE Metoprolol Tartrate 50 mg 11/08/24 09:00 11/18/24 17:00 Metoprolol Tartrate 50 Mg Tab PO 50 mg BID KEVIN Administration Sodium Chloride 10 ml 11/06/24 22:00 11/18/24 16:59 Central Line Flush IV PUSH 10 ml Q8HR KEVIN Administration Sodium Chloride 10 ml 11/06/24 14:29 Central Line Flush IV PUSH PRN PRN with TPN bag changes Sodium Chloride 20 ml 11/06/24 14:29 11/18/24 05:08 Central Line Flush IV PUSH 20 ml PRN PRN Administration after blood draws Sodium Chloride 1 spray 11/15/24 16:13 11/15/24 17:13 Saline 0.65% Rodrigo Soln 44 Ml Btl NASAL 1 spray Q6HR PRN Administration Congestion Sodium Chloride 1 gm 11/17/24 09:00 11/18/24 17:00 Sodium Chloride 1 Gm Tablet PO 1 gm BID KEVIN Administration Trazodone HCl 50 mg 11/03/24 21:00 11/17/24 21:06 Trazodone Hcl 50 Mg Tablet PO 50 mg QHS KEVIN Administration Vancomycin HCl 250 mg 11/16/24 06:00 11/18/24 16:59 Vancomycin Hcl 125 Mg Oral Capsule PO 11/30/24 00:01 250 mg Q6HR KEVIN Administration Vancomycin HCl 125 mg 11/30/24 06:00 Vancomycin Hcl 125 Mg Oral Capsule PO 12/07/24 00:01 Q6HR KEVIN Vancomycin HCl 125 mg 12/07/24 09:00 Vancomycin Hcl 125 Mg Oral Capsule PO 12/13/24 21:01 Q12HR KEVIN Vancomycin HCl 125 mg 12/14/24 09:00 Vancomycin Hcl 125 Mg Oral Capsule PO 12/27/24 09:01 DAILY [facility] Vancomycin HCl 125 mg 12/28/24 09:00 Vancomycin Hcl 125 Mg Oral Capsule PO 01/09/25 09:01 Q48HR [facility] Radiology Results: ITS Impressions Abdomen/Pelvis CT 11/04/24 12:36 IMPRESSION: 1. No evidence of bowel perforation. 2. Persistent severe pancolitis. 3. New small scattered ascites. 4. New small pleural effusions and significant bibasilar atelectasis. Renal Ultrasound 11/04/24 19:07 Impression: Simple appearing left renal cyst. No significant medical renal disease or obstruction Abdomen X-Ray 11/05/24 16:02 Impression: 1. Findings concerning for small bowel obstruction. CT is suggested Chest/Abdomen/Pelvis CT 11/05/24 17:04 IMPRESSION: 1. Diffuse colitis detailed above, correlate for underlying pseudomembranous colitis. No perforation or abscess. Follow-up recommended to assess. 2. CHF with superimposed probable bronchopneumonia. 3. Incidental findings above. Contrast-enhanced MRI recommended Head CT 11/06/24 12:46 Impression: 1.No acute intracranial abnormality. Thoracentesis Ultrasound 11/08/24 11:36 IMPRESSION: 1. Successful ultrasound-guided thoracentesis yielding 250 mL of yellow fluid. Chest X-Ray 11/18/24 11:32 IMPRESSION: 1. Persistent complete left lower lobe atelectasis, superimposed airspace disease not excluded. 2. Persistent pleural effusions. 3. Mild, if any, interstitial pulmonary edema. Labs Labs: Laboratory Results - last 24 hr 11/17/24 11/17/24 11/18/24 18:11 23:42 05:05 WBC 14.1 H RBC 3.25 L Hgb 10.0 L Hct 29.7 L MCV 91.4 MCH 30.8 MCHC 33.7 RDW 14.1 Plt Count 266 MPV 9.2 Immature Gran % (Auto) 1.6 H Neut % (Auto) 84.2 H Lymph % (Auto) 5.8 L [place] % (Auto) 7.7 Eos % (Auto) 0.3 Baso % (Auto) 0.4 Lymph # (Auto) 0.82 L [place] # (Auto) 1.1 H Eos # (Auto) 0.0 Baso # (Auto) 0.1 Abs Immat Gran (auto) 0.23 H Absolute Neuts (auto) 11.9 H Absolute Nucleated RBC 0.000 Nucleated RBC % 0.0 Sodium 119 L* 120 L Potassium 3.5 3.5 Chloride 92 L 93 L Carbon Dioxide 22 22 Anion Gap 5 5 BUN 35 H 36 H Creatinine 1.22 H 1.25 H Estim Creat Clear Calc 34 34 Estimated GFR 43 L 42 L Glucose 168 H 123 H Calcium 7.2 L 7.4 L Phosphorus 3.2 Magnesium 1.5 L Albumin 2.2 L U Random Total Protein 12 Ur Random Sodium 44 Ur Random Urea 447 Urine Creatinine 42.2 Protein/Creat Ratio 2 0.28 H
[2024-11-18] MEDS: MAGNESIUM SULF 2 GM/WATER 50ML 2 GM/50 ML BAG IVPB (20:15)
[2024-11-18 20:42] LABS: Anion Gap 1 mmol/L (4-12); Blood Urea Nitrogen 37 mg/dL (7-17); Calcium 7.6 mg/dL (8.4-10.2); Carbon Dioxide 26 mmol/L (22-30); Chloride 91 mmol/L (98-107); Estimated CRCL calculation 35 ml/min; Estimated Glomerular Filt Rate 43; Glucose 159 mg/dL (65-110); Potassium 3.5 mmol/L (3.4-5.0); Sodium 118 mmol/L (137-145)
--- NOTE | 2024-11-18 21:58 | PC.NURSE ---
Addendum entered by Maribel Narayanan RN 11/18/24 23:45: Dr. Walsh called back @ 2332. Given orders for 3% saline @ 75 mLs/hr for a total of 3 hours and will check labs in the morning. Original Note: Critical sodium received @2040 by lab, result of 118. Reported critical lab to hospitalist Peyton Garcia @2046, with provider returning call. At this time provider states there is no further intervention that they could possibly order. Provider asked me to contact hand coper, Dr. Walsh to see his opinion on the result & possible treatment, otherwise if no call back from Dr. Walsh, provider asked for there to be a sodium check in the morning w/ at least a BMP. Dr. Walsh called @2054, no response received, voicemail left for Dr. Walsh to call back.
[2024-11-19] VITALS (13 sets, daily range): BP systolic 140–153; BP diastolic 50–56; PULSE 56–80; RESP 18–22; TEMP 36.1–36.5; O2SAT 90–93
[2024-11-19] MEDS: VANCOMYCIN HCL 125 MG ORAL CAPSULE 250 MG PO ×5 (00:20→23:00)
[2024-11-19] MEDS: SODIUM CHLORIDE 3% 225 ML 75 ML IV CONT (00:34)
[2024-11-19] MEDS: CENTRAL LINE FLUSH 10 ML IV PUSH ×3 (05:57→22:20)
[2024-11-19] MEDS: CENTRAL LINE FLUSH 20 ML IV PUSH (05:57)
[2024-11-19 06:12] LABS: Hematocrit 29.4 % (37.0-47.0); Hemoglobin 9.9 g/dL (12.0-15.0); Immature Granulocyte Percent A 1.5 % (0-0.5); Lymphocytes Absolute Auto 0.85 K/mm3 (0.9-3.2); Mean Corpuscular HGB Conc 33.7 g/dl (32-36); Mean Corpuscular Hemoglobin 31.0 pg (26-34); Mean Corpuscular Volume 92.2 fl (80-100); Nucleated Red Blood Cells Absolute Auto 0.000 K/mm3 (0.0-0.012); Nucleated Red Blood Cells Perc 0.0 % (0.0-0.2); Platelet Count Result 260 k/mm3 (150-375); Red Blood Count 3.19 M/mm3 (4.2-5.4); White Blood Count 11.7 K/mm3 (4.5-10.0)
[2024-11-19 06:33] LABS: Albumin Level 2.3 g/dL (3.5-5.1); Anion Gap 6 mmol/L (4-12); Blood Urea Nitrogen 37 mg/dL (7-17); Calcium 7.4 mg/dL (8.4-10.2); Carbon Dioxide 22 mmol/L (22-30); Chloride 94 mmol/L (98-107); Estimated CRCL calculation 37 ml/min; Estimated Glomerular Filt Rate 45; Glucose 123 mg/dL (65-110); Magnesium 2.0 mg/dL (1.6-2.3); Potassium 3.4 mmol/L (3.4-5.0); Sodium 122 mmol/L (137-145)
[2024-11-19 07:03] LABS: Thyroid Stimulating Hormone Reflex 8.320 uIU/mL (0.465-4.68)
[2024-11-19 07:40] LABS: Free T4 Free Thyroxine Reflex 1.53 ng/dL (0.78-2.19)
[2024-11-19] MEDS: METOPROLOL TARTRATE 50 MG TAB PO ×2 (09:23→17:07)
[2024-11-19] MEDS: SODIUM CHLORIDE 1 GM TABLET PO ×2 (09:23→17:07)
[2024-11-19] MEDS: cycloSPORINE 0.4 ML OPHTH SOLUTION 1 DROP EACH EYE ×2 (09:24→21:14)
[2024-11-19] MEDS: APIXABAN 2.5 MG TABLET PO ×2 (09:24→21:10)
[2024-11-19] MEDS: FUROSEMIDE 10 MG TABLET PO (09:24)
[2024-11-19 09:32] LABS: Total Triiodothyronine (T3) 0.60 NG/ML (0.82-1.58)
--- NOTE | 2024-11-19 12:33 | PM.PNNEP ---
Progress Note: A&P Assessment and Plan (1) Acute kidney injury: Code(s): N17.9 - Acute kidney failure, unspecified Status: Acute Assessment and Plan: relatively stable at this time as noted by admission labs (creatinine of 3.03mg/dL) creatinine normal 2 days prior to admission baseline creatinine runs ~ 0.9 - 1.1mg/dL suspect multifactorial etiology: prerenal factors infection/early sepsis (diverticulitis/colitis) contrast exposure (CT of A/P on 11/01) relative hypotension on presentation JAMIE-I/diuretic use prior to admission urinary retention(?) - difficulty urinating on admission so gamble catheter placed other (?) evaluation to date noted: renal ultrasound without obstruction urine electrolytes prerenal urine eosinophils negative CPK normal mild proteinuria holding lisinopril and spironolactone initiated on 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 diff toxin assay also noted by CT imaging to date: CT of C/A/P (11/05): Diffuse colitis detailed above, correlate for underlying pseudomembranous colitis. No perforation or abscess CT of A/P (11/04): No evidence of bowel perforation; persistent severe pancolitis CT of A/P (11/03): Interval progression of radiographically uncomplicated selby colitis which could be infectious, inflammatory or less likely ischemic in etiology CT of A/P (11/01): Sigmoid diverticulitis. No perforation or abscess complicated by diverticulitis follow culture data follow trend of WBC on antibiotics Infectious Disease following (3) Acute hypoxic respiratory failure: Code(s): J96.01 - Acute respiratory failure with hypoxia Status: Acute Assessment and Plan: improvement noted multifactorial etiology: bilateral pleural effusions atelectasis fluid overload atrial flutter with rapid ventricular response pancolitis possible pneumonia (?) s/p thoracentesis (on 11/08) Pulmonary recommendations noted was getting fluid removed with dialysis follow respiratory status (4) Hyponatremia: Code(s): E87.1 - Hypo-osmolality and hyponatremia Status: Acute Assessment and Plan: as noted on admission possible chronic component -- sodium seems to run 129 - 136mmol/L since 2021 presumably worsen by: DONOVAN/ARF prerenal factors pleural effusions possible pneumonia urinary retention mild improvement s/p intial IVF resuscitation no improvement with repeat trial of IVFs evaluation to date: repeat urine electrolytes (11/17) non-prerenal noted abnormal SPEP and UPEP -- checking immunofixation TSH/thyroids studies noted cortisol okay still suspect hypovolemic hyponatremia however, previous attempts at IVFs resulted in shortness of breath consider IV albumin for volume expansion follow trend of sodium (5) Metabolic acidosis: Code(s): E87.20 - Acidosis, unspecified Status: Acute Assessment and Plan: resolved due to DONOVAN/ARF and GI issues/symptoms fluctuating lactic acid levels noted dialysis should help correct follow repeat labs (6) Atrial flutter: Code(s): I48.92 - Unspecified atrial flutter Status: Acute Assessment and Plan: as noted by events early on 11/05 rate control strategy Cardiology recommendations noted on metoprolol was on IV amiodarone (temporary measure) Echo noted (on 11/07) left ventricular systolic function is hyperdynamic, estimated at > 70% left ventricular diastolic function is grade I diastolic dysfunction no aortic valve stenosis mild tricuspid valve regurgitation on anticoagulation (7) Elevated troponin: Code(s): R79.89 - Other specified abnormal findings of blood chemistry Status: Acute Assessment and Plan: due to DONOVAN versus atrial fluttter with RVR trend noted Cardiology comments noted (8) Hypertension: Code(s): I10 - Essential (primary) hypertension Status: Chronic Assessment and Plan: reasonable control holding JAMIE-I due to #1 follow trend of hemodynamics Will continue to follow. Subjective Date/time seen: 11/19/24 12:33 Interval history: Follow-up for acute kidney injury/acute renal failure. Renal function/creatinine continues to improve although her urine output continues to fluctuate; received 3% saline overnight due to drop in sodium level; still not eating or drinking much and from by discussion with nursing, has been consistently bed bound; still having quite a bit of diarrhea. Exam Narrative: General: elderly but WD/WN female in NAD Heart: RRR, normal S1 and S2; no rub Lungs: coarse and decreased at bases Abdomen: soft, nontender, positive bowel sounds Extremities: no cyanosis or clubbing; 1+ edema Skin: warm and intact Objective Data Vital Signs Vital Signs: Vital Signs Temp Pulse Resp BP Pulse Ox O2 Del Method 11/19/24 12:00 72 11/19/24 11:24 Room Air 11/19/24 09:25 Room Air 11/19/24 09:23 68 11/19/24 08:40 92 Room Air 11/19/24 08:00 64 11/19/24 05:47 97 F L 60 18 140/50 L 92 11/19/24 04:00 56 L 11/19/24 00:00 57 L 11/18/24 21:18 97 F L 63 18 143/60 H 92 11/18/24 20:05 Room Air 11/18/24 20:00 63 Intake/Output Intake/Output: Intake & Output 11/16/24 11/17/24 11/18/24 11/19/24 23:59 23:59 23:59 23:59 Intake Total 1120 2259 1270 660 Output Total 675 750 580 400 Balance 445 1509 690 260 Meds/Results Medications: Active Medications Generic Name Dose Route Start Last Admin Trade Name Freq PRN Reason Stop Dose Admin Acetaminophen 650 mg 11/06/24 12:18 11/09/24 13:38 Acetaminophen 325 Mg Tablet PO 650 mg Q4H PRN Administration Headache Alprazolam 0.25 mg 11/11/24 06:34 11/14/24 10:44 Alprazolam (*Crx) 0.25 Mg Tablet PO 0.25 mg WITH DIALYSIS PRN Administration Anxiety Alteplase, Recombinant 2 mg 11/11/24 21:39 11/11/24 22:17 Alteplase 2 Mg Vial (Cathflo) IV PUSH 2 mg ONCE PRN Administration Line Occlusion Apixaban 2.5 mg 11/15/24 21:00 11/19/24 09:24 Apixaban 2.5 Mg Tablet PO 2.5 mg Q12HR KEVIN Administration Cyclosporine 1 drop 11/03/24 21:00 11/19/24 09:24 Cyclosporine 0.4 Ml Ophth Solution EACH EYE 1 drop Q12HR KEVIN Administration Sodium Chloride 1,000 mls @ 75 mls/hr 11/19/24 15:15 11/19/24 15:37 Normal Saline Iv IV CONT 75 mls/hr .[id number] KEVIN Administration Albumin Human 50 mls @ 50 mls/hr 11/19/24 15:30 11/19/24 16:42 Albutein IVPB 11/21/24 06:59 Infused Q8HR KEVIN Infusion Metoprolol Tartrate 50 mg 11/08/24 09:00 11/19/24 17:07 Metoprolol Tartrate 50 Mg Tab PO 50 mg BID KEVIN Administration Sodium Chloride 10 ml 11/06/24 22:00 11/19/24 14:17 Central Line Flush IV PUSH 10 ml Q8HR KEVIN Administration Sodium Chloride 10 ml 11/06/24 14:29 Central Line Flush IV PUSH PRN PRN with TPN bag changes Sodium Chloride 20 ml 11/06/24 14:29 11/19/24 05:57 Central Line Flush IV PUSH 20 ml PRN PRN Administration after blood draws Sodium Chloride 1 spray 11/15/24 16:13 11/15/24 17:13 Saline 0.65% Rodrigo Soln 44 Ml Btl NASAL 1 spray Q6HR PRN Administration Congestion Sodium Chloride 1 gm 11/17/24 09:00 11/19/24 17:07 Sodium Chloride 1 Gm Tablet PO 1 gm BID KEVIN Administration Trazodone HCl 50 mg 11/03/24 21:00 11/18/24 22:13 Trazodone Hcl 50 Mg Tablet PO 50 mg QHS KEVIN Administration Vancomycin HCl 250 mg 11/16/24 06:00 11/19/24 17:06 Vancomycin Hcl 125 Mg Oral Capsule PO 11/30/24 00:01 250 mg Q6HR KEVIN Administration Vancomycin HCl 125 mg 11/30/24 06:00 Vancomycin Hcl 125 Mg Oral Capsule PO 12/07/24 00:01 Q6HR KEVIN Vancomycin HCl 125 mg 12/07/24 09:00 Vancomycin Hcl 125 Mg Oral Capsule PO 12/13/24 21:01 Q12HR [facility] Vancomycin HCl 125 mg 12/14/24 09:00 Vancomycin Hcl 125 Mg Oral Capsule PO 12/27/24 09:01 DAILY KEVIN Vancomycin HCl 125 mg 12/28/24 09:00 Vancomycin Hcl 125 Mg Oral Capsule PO 01/09/25 09:01 Q48HR [facility] Radiology Results: ITS Impressions Abdomen/Pelvis CT 11/04/24 12:36 IMPRESSION: 1. No evidence of bowel perforation. 2. Persistent severe pancolitis. 3. New small scattered ascites. 4. New small pleural effusions and significant bibasilar atelectasis. Renal Ultrasound 11/04/24 19:07 Impression: Simple appearing left renal cyst. No significant medical renal disease or obstruction Abdomen X-Ray 11/05/24 16:02 Impression: 1. Findings concerning for small bowel obstruction. CT is suggested Chest/Abdomen/Pelvis CT 11/05/24 17:04 IMPRESSION: 1. Diffuse colitis detailed above, correlate for underlying pseudomembranous colitis. No perforation or abscess. Follow-up recommended to assess. 2. CHF with superimposed probable bronchopneumonia. 3. Incidental findings above. Contrast-enhanced MRI recommended Head CT 11/06/24 12:46 Impression: 1.No acute intracranial abnormality. Thoracentesis Ultrasound 11/08/24 11:36 IMPRESSION: 1. Successful ultrasound-guided thoracentesis yielding 250 mL of yellow fluid. Chest X-Ray 11/19/24 13:33 IMPRESSION: 1. No change. Labs Labs: Laboratory Tests 11/19/24 05:55 11/19/24 05:55 Calcium 7.4 L Phosphorus 3.2 Magnesium 2.0 Albumin 2.3 L TSH (Reflex) 8.320 H Free T4 1.53 Total T3 0.60 L Random Cortisol 26.40
--- NOTE | 2024-11-19 12:33 | P.PNNP_ITS ---
Progress Note: A&P Assessment and Plan (1) Acute kidney injury: Code(s): N17.9 - Acute kidney failure, unspecified Status: Acute Assessment and Plan: * relatively stable at this time * as noted by admission labs (creatinine of 3.03mg/dL) * creatinine normal 2 days prior to admission * baseline creatinine runs ~ 0.9 - 1.1mg/dL * suspect multifactorial etiology: * prerenal factors * infection/early sepsis (diverticulitis/colitis) * contrast exposure (CT of A/P on 11/01) * relative hypotension on presentation * JAMIE-I/diuretic use prior to admission * urinary retention(?) - difficulty urinating on admission so gamble catheter placed * other (?) * evaluation to date noted: * renal ultrasound without obstruction * urine electrolytes prerenal * urine eosinophils negative * CPK normal * mild proteinuria * holding lisinopril and spironolactone * initiated on DRUG COUNSELOR/HD on 11/10 * creatinine better but diminished UOP * s/p repeat trial of IVFs but held due to concerns of pulmonary edema/shortness of breath (on 11/17) * possible intravascular volume depletion despite outward signs of fluid retention (mild pulmonary edema + extremity swelling) * follow trend of repeat labs and UOP (2) Clostridium difficile colitis: Code(s): A04.72 - Enterocolitis due to Clostridium difficile, not specified as recurrent Status: Acute Assessment and Plan: * demonstrated by positive C. diff toxin assay * also noted by CT imaging to date: * CT of C/A/P (11/05): Diffuse colitis detailed above, correlate for underlying pseudomembranous colitis. No perforation or abscess * CT of A/P (11/04): No evidence of bowel perforation; persistent severe pancolitis * CT of A/P (11/03): Interval progression of radiographically uncomplicated selby colitis which could be infectious, inflammatory or less likely ischemic in etiology * CT of A/P (11/01): Sigmoid diverticulitis. No perforation or abscess * complicated by diverticulitis * follow culture data * follow trend of WBC * on antibiotics * Infectious Disease following (3) Acute hypoxic respiratory failure: Code(s): J96.01 - Acute respiratory failure with hypoxia Status: Acute Assessment and Plan: * improvement noted * multifactorial etiology: * bilateral pleural effusions * atelectasis * fluid overload * atrial flutter with rapid ventricular response * pancolitis * possible pneumonia (?) * s/p thoracentesis (on 11/08) * Pulmonary recommendations noted * was getting fluid removed with dialysis * follow respiratory status (4) Hyponatremia: Code(s): E87.1 - Hypo-osmolality and hyponatremia Status: Acute Assessment and Plan: * as noted on admission * possible chronic component -- sodium seems to run 129 - 136mmol/L since 2021 * presumably worsen by: * DONOVAN/ARF * prerenal factors * pleural effusions * possible pneumonia * urinary retention * mild improvement s/p intial IVF resuscitation * no improvement with repeat trial of IVFs * evaluation to date: * repeat urine electrolytes (11/17) non-prerenal * noted abnormal SPEP and UPEP -- checking immunofixation * TSH/thyroids studies noted * cortisol okay * still suspect hypovolemic hyponatremia * however, previous attempts at IVFs resulted in shortness of breath * consider IV albumin for volume expansion * follow trend of sodium (5) Metabolic acidosis: Code(s): E87.20 - Acidosis, unspecified Status: Acute Assessment and Plan: * resolved * due to DONOVAN/ARF and GI issues/symptoms * fluctuating lactic acid levels noted * dialysis should help correct * follow repeat labs (6) Atrial flutter: Code(s): I48.92 - Unspecified atrial flutter Status: Acute Assessment and Plan: * as noted by events early on 11/05 * rate control strategy * Cardiology recommendations noted * on metoprolol * was on IV amiodarone (temporary measure) * Echo noted (on 11/07) * left ventricular systolic function is hyperdynamic, estimated at > 70% * left ventricular diastolic function is grade I diastolic dysfunction * no aortic valve stenosis * mild tricuspid valve regurgitation * on anticoagulation (7) Elevated troponin: Code(s): R79.89 - Other specified abnormal findings of blood chemistry Status: Acute Assessment and Plan: * due to DONOVAN versus atrial fluttter with RVR * trend noted * Cardiology comments noted (8) Hypertension: Code(s): I10 - Essential (primary) hypertension Status: Chronic Assessment and Plan: * reasonable control * holding JAMIE-I due to #1 * follow trend of hemodynamics Will continue to follow. L Subjective Date/time seen: 11/19/24 12:33 Interval history: Follow-up for acute kidney injury/acute renal failure. Renal function/creatinine continues to improve although her urine output continues to fluctuate; received 3% saline overnight due to drop in sodium level; still not eating or drinking much and from by discussion with nursing, has been consistently bed bound; still having quite a bit of diarrhea. Exam 2 Narrative: General: elderly but WD/WN female in NAD Heart: RRR, normal S1 and S2; no rub Lungs: coarse and decreased at bases Abdomen: soft, nontender, positive bowel sounds Extremities: no cyanosis or clubbing; 1+ edema Skin: warm and intact Objective Data Vital Signs Vital Signs: Vital Signs Temp Pulse Resp BP Pulse Ox O2 Del Method 11/19/24 12:00 72 11/19/24 11:24 Room Air 11/19/24 09:25 Room Air 11/19/24 09:23 68 11/19/24 08:40 92 Room Air 11/19/24 08:00 64 11/19/24 05:47 97 F L 60 18 140/50 L 92 11/19/24 04:00 56 L 11/19/24 00:00 57 L 11/18/24 21:18 97 F L 63 18 143/60 H 92 11/18/24 20:05 Room Air 11/18/24 20:00 63 Intake/Output Intake/Output: Intake & Output 11/16/24 11/17/24 11/18/24 11/19/24 23:59 23:59 23:59 23:59 Intake Total 1120 2259 1270 660 Output Total 675 750 580 400 Balance 445 1509 690 260 Meds/Results Medications: Active Medications Generic Name Dose Route Start Last Admin Trade Name Freq PRN Reason Stop Dose Admin Acetaminophen 650 mg 11/06/24 12:18 11/09/24 13:38 Acetaminophen 325 Mg Tablet PO 650 mg Q4H PRN Administration Headache Alprazolam 0.25 mg 11/11/24 06:34 11/14/24 10:44 Alprazolam (*Crx) 0.25 Mg Tablet PO 0.25 mg WITH DIALYSIS PRN Administration Anxiety Alteplase, Recombinant 2 mg 11/11/24 21:39 11/11/24 22:17 Alteplase 2 Mg Vial (Cathflo) IV PUSH 2 mg ONCE PRN Administration Line Occlusion Apixaban 2.5 mg 11/15/24 21:00 11/19/24 09:24 Apixaban 2.5 Mg Tablet PO 2.5 mg Q12HR KEVIN Administration Cyclosporine 1 drop 11/03/24 21:00 11/19/24 09:24 Cyclosporine 0.4 Ml Ophth Solution EACH EYE 1 drop Q12HR KEVIN Administration Sodium Chloride 1,000 mls @ 75 mls/hr 11/19/24 15:15 11/19/24 15:37 Normal Saline Iv IV CONT 75 mls/hr .[id number] KEVIN Administration Albumin Human 50 mls @ 50 mls/hr 11/19/24 15:30 11/19/24 16:42 Albutein IVPB 11/21/24 06:59 Infused Q8HR KEVIN Infusion Metoprolol Tartrate 50 mg 11/08/24 09:00 11/19/24 17:07 Metoprolol Tartrate 50 Mg Tab PO 50 mg BID KEVIN Administration Sodium Chloride 10 ml 11/06/24 22:00 11/19/24 14:17 Central Line Flush IV PUSH 10 ml Q8HR KEVIN Administration Sodium Chloride 10 ml 11/06/24 14:29 Central Line Flush IV PUSH PRN PRN with TPN bag changes Sodium Chloride 20 ml 11/06/24 14:29 11/19/24 05:57 Central Line Flush IV PUSH 20 ml PRN PRN Administration after blood draws Sodium Chloride 1 spray 11/15/24 16:13 11/15/24 17:13 Saline 0.65% Rodrigo Soln 44 Ml Btl NASAL 1 spray Q6HR PRN Administration Congestion Sodium Chloride 1 gm 11/17/24 09:00 11/19/24 17:07 Sodium Chloride 1 Gm Tablet PO 1 gm BID KEVIN Administration Trazodone HCl 50 mg 11/03/24 21:00 11/18/24 22:13 Trazodone Hcl 50 Mg Tablet PO 50 mg QHS KEVIN Administration Vancomycin HCl 250 mg 11/16/24 06:00 11/19/24 17:06 Vancomycin Hcl 125 Mg Oral Capsule PO 11/30/24 00:01 250 mg Q6HR KEVIN Administration Vancomycin HCl 125 mg 11/30/24 06:00 Vancomycin Hcl 125 Mg Oral Capsule PO 12/07/24 00:01 Q6HR KEVIN Vancomycin HCl 125 mg 12/07/24 09:00 Vancomycin Hcl 125 Mg Oral Capsule PO 12/13/24 21:01 Q12HR [facility] Vancomycin HCl 125 mg 12/14/24 09:00 Vancomycin Hcl 125 Mg Oral Capsule PO 12/27/24 09:01 DAILY [facility] Vancomycin HCl 125 mg 12/28/24 09:00 Vancomycin Hcl 125 Mg Oral Capsule PO 01/09/25 09:01 Q48HR [facility] Radiology Results: ITS Impressions Abdomen/Pelvis CT 11/04/24 12:36 IMPRESSION: 1. No evidence of bowel perforation. 2. Persistent severe pancolitis. 3. New small scattered ascites. 4. New small pleural effusions and significant bibasilar atelectasis. Renal Ultrasound 11/04/24 19:07 Impression: Simple appearing left renal cyst. No significant medical renal disease or obstruction Abdomen X-Ray 11/05/24 16:02 Impression: 1. Findings concerning for small bowel obstruction. CT is suggested Chest/Abdomen/Pelvis CT 11/05/24 17:04 IMPRESSION: 1. Diffuse colitis detailed above, correlate for underlying pseudomembranous colitis. No perforation or abscess. Follow-up recommended to assess. 2. CHF with superimposed probable bronchopneumonia. 3. Incidental findings above. Contrast-enhanced MRI recommended Head CT 11/06/24 12:46 Impression: 1.No acute intracranial abnormality. Thoracentesis Ultrasound 11/08/24 11:36 IMPRESSION: 1. Successful ultrasound-guided thoracentesis yielding 250 mL of yellow fluid. Chest X-Ray 11/19/24 13:33 IMPRESSION: 1. No change. Labs Labs: Laboratory Tests 11/19/24 05:55 11/19/24 05:55 Calcium 7.4 L Phosphorus 3.2 Magnesium 2.0 Albumin 2.3 L TSH (Reflex) 8.320 H Free T4 1.53 Total T3 0.60 L Random Cortisol 26.40
--- NOTE | 2024-11-19 15:10 | P.PNIM_ITS ---
Progress Note: A&P Assessment and Plan (1) Hypertension: Code(s): I10 - Essential (primary) hypertension Status: Chronic (2) Elevated troponin: Code(s): R79.89 - Other specified abnormal findings of blood chemistry Status: Acute (3) Atrial flutter: Code(s): I48.92 - Unspecified atrial flutter Status: Acute (4) Pancolitis: Code(s): K52.9 - Noninfective gastroenteritis and colitis, unspecified Status: Acute (5) Acute kidney injury: Code(s): N17.9 - Acute kidney failure, unspecified Status: Acute (6) Metabolic acidosis: Code(s): E87.20 - Acidosis, unspecified Status: Acute (7) Acute hypoxic respiratory failure: Code(s): J96.01 - Acute respiratory failure with hypoxia Status: Acute (8) Pleural effusion: Code(s): J90 - Pleural effusion, not elsewhere classified Status: Acute (9) Clostridium difficile colitis: Code(s): A04.72 - Enterocolitis due to Clostridium difficile, not specified as recurrent Status: Acute (10) Adjustment disorder with depressed mood: Code(s): F43.21 - Adjustment disorder with depressed mood Status: Acute Plan 78-year-old female with past medical history of hypertension, class 1 obesity, presents the hospital with acute abdominal pain Patient presented to the emergency room on 11/01/2024 and diagnosed with diverticulitis without abscess and sent home with p.o. antibiotics. Patient complains of explosive diarrhea and abdominal pain, denied nausea or vomiting and returned. Admitted on 11/03/2024 for worsening Clostridium difficile colitis. Clostridium difficile associated colitis: vancomycin 500 mg p.o. q.6 hours on 11/06/2024, begin taper on 11/16/2024. Metronidazole complete from 11/08/2024 to 11/15/2024 Appreciate ID recommendations otherwise. Zosyn discontinued Leukocytosis persistent however patient has improved clinically. No abdominal pain, stool is becoming more formed. Discontinue rectal tube on 11/15/2024. Continue Banatrol. On 11/19/2024 she has loose green stools with some mucus however only 2 episodes on this day which is improved. Severe deconditioning/adjustment disorder with depressed features: -the patient has been refusing to participate with therapy. She tells me she is depressed because she has never been this ill before, relatively healthy previous to this admission. She denies adamantly any suicidal ideation, she also refuses to see Psychiatry or to start any pharmacological therapy. I have been giving the patient talk therapy during my visits. She seems to be receptive. On 11/20/2024 a new day team will take over. I advised the patient she should participate with therapy and with the new hospitalist. I let her k now I will be visiting her during my night shifts. Consult spiritual services as well. Provide support. Previous to admission she was taking care of her was dementia. Continue trazodone 50 mg p.o. q.h.s.. She has to get up to chair during the day, walk in her room with therapy while the contact precautions are on, walk in the halls when they are off. -I discussed this with the nursing team on 11/19/2024. Acute kidney injury: Infection vs Contrast related injury vs prerenal. Creatinine normal 2 days prior to admission Nephrology is following, right IJ Cecil dialysis catheter placed on 11/10/2024. Dialysis started on 11/10/2024. No dialysis for some time now, Nephrology continues to manage. Renal ultrasound without obstruction, urine electrolytes pre renal, urine eosinophils negative, CPK normal, mild proteinuria Holding lisinopril and spironolactone Holland catheter in place Follow renal function labs and urine output Disposition pending. When ready to pull out the IJ, hold Eliquis for at least 24 hours. Hyponatremia: On 11/19/2024 she has dry mucous membranes, 2+ lower extremity edema however albumin is very low. Check venous Dopplers for DVT considering her prolonged immobility. I performed a bedside ultrasound to confirm her volume status, her IVC is almost completely collapsed and collapses completely on a sniff test. I discussed these findings with Dr. Walsh. He will initiate fluids, albumin infusion, repeat BMP at 6:00 p.m.. Her shortness of breath is due to severe deconditioning and not fluid overload. Atrial flutter/hypertension/hyperlipidemia: New diagnosis, now converted to sinus rhythm. Continue metoprolol 50 mg p.o. b.i.d.. Digoxin stopped due to renal failure Keep potassium greater than 4 magnesium greater than 2, keep renal failure in consideration 1 replacing electrolytes Lisinopril and spironolactone on hold. Amlodipine on hold to allow titration of beta-christine [employer] [employer] simvastatin on hold. Continue monitoring blood pressure. on telemetry. Heparin GTT transition to apixaban 2.5 mg p.o. b.i.d. on 11/15/2024. Acute hypoxic respiratory failure: Pulmonology consulted. Less likely pneumonia, pneumonia specific antibiotics discontinued. Status post thoracentesis on 11/08/2024 showing exudative effusion, not infectious, macrophage predominant, likely related to colitis/fluid overload related to acute kidney injury. Echocardiogram on 10/08 demonstrating normal left ventricular function. Resolved, weaned to room air on 11/13/2024 She does have persistent shortness of breath. Due to her depression as above she has only been using her incentive spirometer twice per day, advised her she should be using a 4-6 times per hour. I assessed her capacity at bedside and she can only pull in 200 cc on the incentive spirometer. She is very weak and dehydrated and this is likely due to severe deconditioning. As well as a disten ded abdomen. Start EzPAP q.i.d. as well. Some atelectasis at the bases with small pleural effusion, otherwise no adventitious sounds. If need be, a repeat chest CT can be performed. Repeat thoracentesis is a consideration. Anxiety: Continue with home Xanax Continue [employer] trazodone 50 mg p.o. q.h.s. Full code Fluids and dialysis per Nephrology Rectal to removed Holland catheter in place Continue apixaban 2.5 mg p.o. b.i.d.. Heart healthy Disposition pending: Continue PT/OT evaluations and sessions. She is very weak, prior to admission she is independent and without health issues. I encouraged her to work with therapy. Time Spent With Patient Time: Greater than 65 minutes spent with the patient Time with patient: Greater than 35 minutes Subjective Date/time seen: 11/19/24 15:10 Interval history: Patient has been refusing to get up and walk. She feels depressed. The assessment and plan for further information Review of Systems Review of Systems: All systems reviewed & are unremarkable except as noted in HPI and below (Subjective) Exam Const: General: comfortable and no acute distress HENMT: Mouth: Yes dry mucous membranes Eyes: Pupils: Equal, round and reactive pupils present Neck: Neck: supple Resp: Effort & Inspection: normal respiratory effort Auscultation: clear to auscultation bilaterally Other: Low inspiratory effort, no adventitious sounds Cardio: Rate: regular rate Rhythm: regular rhythm GI: Inspection: distended GI Palp: Yes Soft to palpation, No Tenderness to palpation present (GI) and No Guarding due to palpation present (GI) Auscultation: normal bowel sounds Urinary Catheter: Urinary Catheter: patent and draining Neuro: Motor exam (neuro): 5/5 motor strength present throughout Other: Generalized weakness Extrem: Other: 2+ pitting edema bilateral lower extremi ties Objective Data Vital Signs Vital Signs: Vital Signs - 24 hr 11/18/24 16:00 11/18/24 17:00 11/18/24 20:00 Temperature Pulse Rate 68 67 63 Respiratory Rate Blood Pressure Pulse Oximetry Oxygen Delivery 11/18/24 20:05 11/18/24 21:18 11/19/24 00:00 Temperature 97 F L Pulse Rate 63 57 L Respiratory Rate 18 Blood Pressure 143/60 H Pulse Oximetry 92 Oxygen Delivery Room Air 11/19/24 04:00 11/19/24 05:47 11/19/24 08:00 Temperature 97 F L Pulse Rate 56 L 60 64 Respiratory Rate 18 Blood Pressure 140/50 L Pulse Oximetry 92 Oxygen Delivery 11/19/24 08:40 11/19/24 09:23 11/19/24 09:25 Temperature Pulse Rate 68 Respiratory Rate Blood Pressure Pulse Oximetry 92 Oxygen Delivery Room Air Room Air 11/19/24 11:24 11/19/24 12:00 Temperature Pulse Rate 72 Respiratory Rate Blood Pressure Pulse Oximetry Oxygen Delivery Room Air Intake/Output Intake/Output: Intake & Output 11/16/24 11/17/24 11/18/24 11/19/24 23:59 23:59 23:59 23:59 Intake Total 1120 2259 1270 250 Output Total 675 750 580 400 Balance 445 1509 690 -150 Meds/Results Medications: Active Medications Generic Name Dose Route Start Last Admin Trade Name Freq PRN Reason Stop Dose Admin Acetaminophen 650 mg 11/06/24 12:18 11/09/24 13:38 Acetaminophen 325 Mg Tablet PO 650 mg Q4H PRN Administration Headache Alprazolam 0.25 mg 11/11/24 06:34 11/14/24 10:44 Alprazolam (*Crx) 0.25 Mg Tablet PO 0.25 mg WITH DIALYSIS PRN Administration Anxiety Alteplase, Recombinant 2 mg 11/11/24 21:39 11/11/24 22:17 Alteplase 2 Mg Vial (Cathflo) IV PUSH 2 mg ONCE PRN Administration Line Occlusion Apixaban 2.5 mg 11/15/24 21:00 11/19/24 09:24 Apixaban 2.5 Mg Tablet PO 2.5 mg Q12HR KEVIN Administration Cyclosporine 1 drop 11/03/24 21:00 11/19/24 09:24 Cyclosporine 0.4 Ml Ophth Solution EACH EYE 1 drop Q12HR KEVIN Administration Albumin Human 50 mls @ 999 mls/hr 11/10/24 09:33 Albutein IVPB 12/10/24 09:32 Q10M PRN HYPOTENSION Metoprolol Tartrate 50 mg 11/08/24 09:00 11/19/24 09:23 Metoprolol Tartrate 50 Mg Tab PO 50 mg BID KEVIN Administration Sodium Chloride 10 ml 11/06/24 22:00 11/19/24 14:17 Central Line Flush IV PUSH 10 ml Q8HR KEVIN Administration Sodium Chloride 10 ml 11/06/24 14:29 Central Line Flush IV PUSH PRN PRN with TPN bag changes Sodium Chloride 20 ml 11/06/24 14:29 11/19/24 05:57 Central Line Flush IV PUSH 20 ml PRN PRN Administration after blood draws Sodium Chloride 1 spray 11/15/24 16:13 11/15/24 17:13 Saline 0.65% Rodrigo Soln 44 Ml Btl NASAL 1 spray Q6HR PRN Administration Congestion Sodium Chloride 1 gm 11/17/24 09:00 11/19/24 09:23 Sodium Chloride 1 Gm Tablet PO 1 gm BID KEVIN Administration Trazodone HCl 50 mg 11/03/24 21:00 11/18/24 22:13 Trazodone Hcl 50 Mg Tablet PO 50 mg QHS KEVIN Administration Vancomycin HCl 250 mg 11/16/24 06:00 11/19/24 12:27 Vancomycin Hcl 125 Mg Oral Capsule PO 11/30/24 00:01 250 mg Q6HR KEVIN Administration Vancomycin HCl 125 mg 11/30/24 06:00 Vancomycin Hcl 125 Mg Oral Capsule PO 12/07/24 00:01 Q6HR KEVIN Vancomycin HCl 125 mg 12/07/24 09:00 Vancomycin Hcl 125 Mg Oral Capsule PO 12/13/24 21:01 Q12HR [facility] Vancomycin HCl 125 mg 12/14/24 09:00 Vancomycin Hcl 125 Mg Oral Capsule PO 12/27/24 09:01 DAILY [facility] Vancomycin HCl 125 mg 12/28/24 09:00 Vancomycin Hcl 125 Mg Oral Capsule PO 01/09/25 09:01 Q48HR [facility] Radiology Results: ITS Impressions Abdomen/Pelvis CT 11/04/24 12:36 IMPRESSION: 1. No evidence of bowel perforation. 2. Persistent severe pancolitis. 3. New small scattered ascites. 4. New small pleural effusions and significant bibasilar atelectasis. Renal Ultrasound 11/04/24 19:07 Impression: Simple appearing left renal cyst. No significant medical renal disease or obstruction Abdomen X-Ray 11/05/24 16:02 Impression: 1. Findings concerning for small bowel obstruction. CT is suggested Chest/Abdomen/Pelvis CT 11/05/24 17:04 IMPRESSION: 1. Diffuse colitis detailed above, correlate for underlying pseudomembranous colitis. No perforation or abscess. Follow-up recommended to assess. 2. CHF with superimposed probable bronchopneumonia. 3. Incidental findings above. Contrast-enhanced MRI recommended Head CT 11/06/24 12:46 Impression: 1.No acute intracranial abnormality. Thoracentesis Ultrasound 11/08/24 11:36 IMPRESSION: 1. Successful ultrasound-guided thoracentesis yielding 250 mL of yellow fluid. Chest X-Ray 11/19/24 13:33 IMPRESSION: 1. No change. Labs Labs: Laboratory Results - last 24 hr 11/18/24 11/19/24 20:12 05:55 WBC 11.7 H RBC 3.19 L Hgb 9.9 L Hct 29.4 L MCV 92.2 MCH 31.0 MCHC 33.7 RDW 14.4 Plt Count 260 MPV 9.4 Immature Gran % (Auto) 1.5 H Neut % (Auto) 82.4 H Lymph % (Auto) 7.3 L [place] % (Auto) 8.2 Eos % (Auto) 0.3 Baso % (Auto) 0.3 Lymph # (Auto) 0.85 L [place] # (Auto) 1.0 H Eos # (Auto) 0.0 Baso # (Auto) 0.0 Abs Immat Gran (auto) 0.18 H Absolute Neuts (auto) 9.6 H Absolute Nucleated RBC 0.000 Nucleated RBC % 0.0 Sodium 118 L* 122 L Potassium 3.5 3.4 Chloride 91 L 94 L Carbon Dioxide 26 22 Anion Gap 1 L 6 BUN 37 H 37 H Creatinine 1.21 H 1.16 H Estim Creat Clear Calc 35 37 Estimated GFR 43 L 45 L Glucose 159 H 123 H Calcium 7.6 L 7.4 L Phosphorus 3.2 Magnesium 2.0 Albumin 2.3 L TSH (Reflex) 8.320 H Free T4 1.53 Total T3 0.60 L Random Cortisol 26.40
[2024-11-19] MEDS: SODIUM CHLORIDE 0.9% IV 1,000 ML 75 ML IV CONT (15:37)
[2024-11-19] MEDS: ALBUMIN HUMAN 25% 12.5 GM/50ML 50 ML IVPB ×2 (15:42→21:10)
[2024-11-19] MEDS: POTASSIUM CHLORIDE 20 MEQ ER TABLET PO (22:20)
[2024-11-20] VITALS (14 sets, daily range): BP systolic 141–175; BP diastolic 41–60; PULSE 59–81; RESP 16–20; TEMP 36–36.4; O2SAT 92–97
[2024-11-20] MEDS: VANCOMYCIN HCL 125 MG ORAL CAPSULE 250 MG PO ×4 (05:11→23:06)
[2024-11-20] MEDS: CENTRAL LINE FLUSH 10 ML IV PUSH ×3 (05:11→21:23)
[2024-11-20] MEDS: ALBUMIN HUMAN 25% 12.5 GM/50ML 50 ML IVPB ×3 (05:11→21:23)
[2024-11-20 05:26] LABS: Hematocrit 27.9 % (37.0-47.0); Hemoglobin 9.3 g/dL (12.0-15.0); Immature Granulocyte Percent A 1.0 % (0-0.5); Lymphocytes Absolute Auto 0.88 K/mm3 (0.9-3.2); Mean Corpuscular HGB Conc 33.3 g/dl (32-36); Mean Corpuscular Hemoglobin 30.8 pg (26-34); Mean Corpuscular Volume 92.4 fl (80-100); Nucleated Red Blood Cells Absolute Auto 0.000 K/mm3 (0.0-0.012); Nucleated Red Blood Cells Perc 0.0 % (0.0-0.2); Platelet Count Result 264 k/mm3 (150-375); Red Blood Count 3.02 M/mm3 (4.2-5.4); White Blood Count 11.4 K/mm3 (4.5-10.0)
[2024-11-20 05:37] LABS: Albumin Level 2.5 g/dL (3.5-5.1); Anion Gap 6 mmol/L (4-12); Blood Urea Nitrogen 34 mg/dL (7-17); Calcium 7.4 mg/dL (8.4-10.2); Carbon Dioxide 21 mmol/L (22-30); Chloride 95 mmol/L (98-107); Estimated CRCL calculation 40 ml/min; Estimated Glomerular Filt Rate 50; Glucose 125 mg/dL (65-110); Magnesium 1.6 mg/dL (1.6-2.3); Potassium 3.8 mmol/L (3.4-5.0); Sodium 122 mmol/L (137-145)
[2024-11-20 05:37] LABS: Anion Gap 6 mmol/L (4-12); Blood Urea Nitrogen 34 mg/dL (7-17); Calcium 7.4 mg/dL (8.4-10.2); Carbon Dioxide 21 mmol/L (22-30); Chloride 95 mmol/L (98-107); Estimated CRCL calculation 39 ml/min; Estimated Glomerular Filt Rate 49; Glucose 125 mg/dL (65-110); Potassium 3.8 mmol/L (3.4-5.0); Sodium 122 mmol/L (137-145)
--- NOTE | 2024-11-20 07:10 | P.PNIM_ITS ---
Progress Note: A&P Assessment and Plan (1) Clostridium difficile colitis: Code(s): A04.72 - Enterocolitis due to Clostridium difficile, not specified as recurrent Status: Acute Assessment and Plan: - Metronidazole complete from 11/08/2024 to 11/15/2024 - continue vancomycin 500 mg p.o. q.6 hours on 11/06/2024, began taper on 11/16/2024. - Zosyn discontinued - leukocytosis and diarrhea improving - continue Banatrol -Appreciate ID recommendations (2) Adjustment disorder with depressed mood: Code(s): F43.21 - Adjustment disorder with depressed mood Status: Acute Assessment and Plan: - intermittently refused therapy. She is depressed because she has never been this ill before, relatively healthy previous to this admission. She denies adamantly any suicidal ideation, she also refuses to see Psychiatry or to start any pharmacological therapy. - affect seems to be improving. She worked with therapy 11/19. Encouraged to continue participation. Reassurance provided. - continue trazodone qHS (3) Hypertension: Code(s): I10 - Essential (primary) hypertension Status: Chronic Assessment and Plan: -Lisinopril and spironolactone on hold due to DONOVAN -Amlodipine initially on hold to allow titration of beta-christine. Will resume due to high BP trend. - monitor BP (4) Atrial flutter: Code(s): I48.92 - Unspecified atrial flutter Status: Acute Assessment and Plan: -New diagnosis, now converted to sinus rhythm. -Continue metoprolol 50 mg p.o. b.i.d.. -Digoxin stopped due to renal failure - continue Eliquis -Keep potassium greater than 4 magnesium greater than 2, keep renal failure in consideration when replacing electrolytes (5) Acute kidney injury: Code(s): N17.9 - Acute kidney failure, unspecified Status: Acute Assessment and Plan: -Infection vs Contrast related injury vs prerenal. Creatinine normal 2 days prior to admission Nephrology is following, right IJ Cecil dialysis catheter placed on 11/10/2024. -Dialysis started on 11/10/2024. No dialysis for some time now, Nephrology continues to manage. -Renal ultrasound without obstruction, urine electrolytes pre renal, urine eosinophils negative, CPK normal, mild proteinuria -Holding lisinopril and spironolactone -Hol[place] catheter in place -Follow renal function labs and urine output -Disposition pending. When ready to pull out the IJ, hold Eliquis for at least 24 hours. (6) Acute hypoxic respiratory failure: Code(s): J96.01 - Acute respiratory failure with hypoxia Status: Acute Assessment and Plan: -Pulmonology consulted. Less likely pneumonia, pneumonia specific antibiotics discontinued. Status post thoracentesis on 11/08/2024 showing exudative effusion, not infectious, macrophage predominant, likely related to colitis/fluid overload related to acute kidney injury. - echo on 10/08 demonstrating normal left ventricular function. - CXR 11/19 with persistent left lower lobe atelectasis with associated effusion - encouraged incentive spirometry, pulmonary hygiene - currently on RA - still with dyspnea. Check CT chest. (7) Pleural effusion: Code(s): J90 - Pleural effusion, not elsewhere classified Status: Acute Assessment and Plan: -Status post thoracentesis on 11/08/2024 showing exudative effusion, not infectious, macrophage predominant, likely related to colitis/fluid overload related to acute kidney injury. - if dyspnea persists, consider repeat thoracentesis (8) Hyponatremia: Code(s): E87.1 - Hypo-osmolality and hyponatremia Status: Acute Assessment and Plan: - On 11/19/2024 she has dry mucous membranes, 2+ lower extremity edema however albumin is very low. Venous dopplers negative for DVT. - Nephrology started on IV fluids, albumin infusion. No improvement in sodium - patient reports imprvoed PO intake (9) Anxiety: Code(s): F41.9 - Anxiety disorder, unspecified Status: Acute Assessment and Plan: - continue Xanax, trazodone Plan Code status: full code DVT prophylaxis: Priscila Dispo: possibly RO when medically stable. Care coordination following. Subjective Date/time seen: 11/20/24 07:10 Interval history: Patient seen and examined at bedside. Making slow improvement. Still dyspneic, but improved. Stressed importance of working with therapy. Review of Systems Review of Systems: 12 systems were reviewed and are negativ e except for as per HPI. Exam Narrative: General: NAD, appears deconditioned Eyes: EOMI ENT: neck supple Cardiovascular: Regular rate and rhythm Respiratory: decreased in LLL otherwise clear to auscultation. Tachypneic without overt respiratory distress. Gastrointestinal: Soft, non tender Genitourinary: no suprapubic tenderness Musculoskeletal: No edema Skin: warm, dry Neuro: Alert. Psych: Mood appropriate Objective Data Vital Signs Vital Signs: Vital Signs - 24 hr 11/19/24 08:00 11/19/24 08:40 11/19/24 09:23 Temperature Pulse Rate 64 68 Respiratory Rate Blood Pressure Pulse Oximetry 92 Oxygen Delivery Room Air 11/19/24 09:25 11/19/24 11:24 11/19/24 12:00 Temperature Pulse Rate 72 Respiratory Rate Blood Pressure Pulse Oximetry Oxygen Delivery Room Air Room Air 11/19/24 14:00 11/19/24 16:00 11/19/24 17:07 Temperature 97.5 F L Pulse Rate 68 80 64 Respiratory Rate 22 H Blood Pressure 153/56 H Pulse Oximetry 93 Oxygen Delivery 11/19/24 20:00 11/19/24 20:00 11/19/24 21:18 Temperature 97.7 F Pulse Rate 68 64 Respiratory Rate 20 Blood Pressure 146/50 H Pulse Oximetry 90 Oxygen Delivery Room Air 11/19/24 21:41 11/20/24 00:00 11/20/24 04:00 Temperature Pulse Rate 70 62 60 Respiratory Rate 20 Blood Pressure Pulse Oximetry 90 Oxygen Delivery Room Air 11/20/24 04:22 Temperature 97 F L Pulse Rate 60 Respiratory Rate 16 Blood Pressure 150/56 H Pulse Oximetry 92 Oxygen Delivery Intake/Output Intake/Output: Intake & Output 11/17/24 11/18/24 11/19/24 11/20/24 23:59 23:59 23:59 23:59 Intake Total 2259 1270 950 300 Output Total 411 220 5643 450 Balance 1509 690 -50 -150 Meds/Results Medications: Active Medications Generic Name Dose Route Start Last Admin Trade Name Freq PRN Reason Stop Dose Admin Acetaminophen 650 mg 11/06/24 12:18 11/09/24 13:38 Acetaminophen 325 Mg Tablet PO 650 mg Q4H PRN Administration Headache Alprazolam 0.25 mg 11/11/24 06:34 11/14/24 10:44 Alprazolam (*Crx) 0.25 Mg Tablet PO 0.25 mg WITH DIALYSIS PRN Administration Anxiety Alteplase, Recombinant 2 mg 11/11/24 21:39 11/11/24 22:17 Alteplase 2 Mg Vial (Cathflo) IV PUSH 2 mg ONCE PRN Administration Line Occlusion Apixaban 2.5 mg 11/15/24 21:00 11/19/24 21:10 Apixaban 2.5 Mg Tablet PO 2.5 mg Q12HR KEVIN Administration Cyclosporine 1 drop 11/03/24 21:00 11/19/24 21:14 Cyclosporine 0.4 Ml Ophth Solution EACH EYE 1 drop Q12HR KEVIN Administration Sodium Chloride 1,000 mls @ 75 mls/hr 11/19/24 15:15 11/19/24 15:37 Normal Saline Iv IV CONT 75 mls/hr .[id number] KEVIN Administration Albumin Human 50 mls @ 50 mls/hr 11/19/24 15:30 11/20/24 05:11 Albutein IVPB 11/21/24 06:59 50 mls/hr Q8HR KEVIN Administration Metoprolol Tartrate 50 mg 11/08/24 09:00 11/19/24 17:07 Metoprolol Tartrate 50 Mg Tab PO 50 mg BID KEVIN Administration Sodium Chloride 10 ml 11/06/24 22:00 11/20/24 05:11 Central Line Flush IV PUSH 10 ml Q8HR KEVIN Administration Sodium Chloride 10 ml 11/06/24 14:29 Central Line Flush IV PUSH PRN PRN with TPN bag changes Sodium Chloride 20 ml 11/06/24 14:29 11/19/24 05:57 Central Line Flush IV PUSH 20 ml PRN PRN Administration after blood draws Sodium Chloride 1 spray 11/15/24 16:13 11/15/24 17:13 Saline 0.65% Rodrigo Soln 44 Ml Btl NASAL 1 spray Q6HR PRN Administration Congestion Sodium Chloride 1 gm 11/17/24 09:00 11/19/24 17:07 Sodium Chloride 1 Gm Tablet PO 1 gm BID KEVIN Administration Trazodone HCl 50 mg 11/03/24 21:00 11/19/24 21:10 Trazodone Hcl 50 Mg Tablet PO 50 mg QHS KEVIN Administration Vancomycin HCl 250 mg 11/16/24 06:00 11/20/24 05:11 Vancomycin Hcl 125 Mg Oral Capsule PO 11/30/24 00:01 250 mg Q6HR KEVIN Administration Vancomycin HCl 125 mg 11/30/24 06:00 Vancomycin Hcl 125 Mg Oral Capsule PO 12/07/24 00:01 Q6HR KEVIN Vancomycin HCl 125 mg 12/07/24 09:00 Vancomycin Hcl 125 Mg Oral Capsule PO 12/13/24 21:01 Q12HR [facility] Vancomycin HCl 125 mg 12/14/24 09:00 Vancomycin Hcl 125 Mg Oral Capsule PO 12/27/24 09:01 DAILY KEVIN Vancomycin HCl 125 mg 12/28/24 09:00 Vancomycin Hcl 125 Mg Oral Capsule PO 01/09/25 09:01 Q48HR [facility] Radiology Results: ITS Impressions Abdomen/Pelvis CT 11/04/24 12:36 IMPRESSION: 1. No evidence of bowel perforation. 2. Persistent severe pancolitis. 3. New small scattered ascites. 4. New small pleural effusions and significant bibasilar atelectasis. Renal Ultrasound 11/04/24 19:07 Impression: Simple appearing left renal cyst. No significant medical renal disease or obstruction Abdomen X-Ray 11/05/24 16:02 Impression: 1. Findings concerning for small bowel obstruction. CT is suggested Chest/Abdomen/Pelvis CT 11/05/24 17:04 IMPRESSION: 1. Diffuse colitis detailed above, correlate for underlying pseudomembranous colitis. No perforation or abscess. Follow-up recommended to assess. 2. CHF with superimposed probable bronchopneumonia. 3. Incidental findings above. Contrast-enhanced MRI recommended Head CT 11/06/24 12:46 Impression: 1.No acute intracranial abnormality. Thoracentesis Ultrasound 11/08/24 11:36 IMPRESSION: 1. Successful ultrasound-guided thoracentesis yielding 250 mL of yellow fluid. Chest X-Ray 11/19/24 13:33 IMPRESSION: 1. No change. Venous Doppler Study 11/19/24 18:32 Impression: Negative for DVT. Labs Labs: Laboratory Results - last 24 hr 11/19/24 11/20/24 11/20/24 05:55 05:05 05:06 WBC 11.4 H RBC 3.02 L Hgb 9.3 L Hct 27.9 L MCV 92.4 MCH 30.8 MCHC 33.3 RDW 14.4 Plt Count 264 MPV 9.7 Immature Gran % (Auto) 1.0 H Neut % (Auto) 82.4 H Lymph % (Auto) 7.7 L [place] % (Auto) 8.2 Eos % (Auto) 0.3 Baso % (Auto) 0.4 Lymph # (Auto) 0.88 L [place] # (Auto) 0.9 H Eos # (Auto) 0.0 Baso # (Auto) 0.0 Abs Immat Gran (auto) 0.11 H Absolute Neuts (auto) 9.4 H Absolute Nucleated RBC 0.000 Nucleated RBC % 0.0 Sodium 122 L 122 L Potassium 3.8 3.8 Chloride 95 L 95 L Carbon Dioxide 21 L 21 L Anion Gap 6 6 BUN 34 H 34 H Creatinine 1.06 H 1.09 H Estim Creat Clear Calc 40 39 Estimated GFR 50 L 49 L Glucose 125 H 125 H Calcium 7.4 L 7.4 L Phosphorus 3.0 Magnesium 1.6 Albumin 2.5 L Free T4 1.53 Total T3 0.60 L Quality VTE Prophylaxis VTE prophylaxis: mechanical ordered and pharmacologic ordered
[2024-11-20] MEDS: METOPROLOL TARTRATE 50 MG TAB PO ×2 (10:28→18:11)
[2024-11-20] MEDS: APIXABAN 2.5 MG TABLET PO (10:28)
[2024-11-20] MEDS: cycloSPORINE 0.4 ML OPHTH SOLUTION 1 DROP EACH EYE ×2 (10:29→21:22)
--- NOTE | 2024-11-20 10:57 | PM.PNNEP ---
Progress Note: A&P Assessment and Plan (1) Acute kidney injury: Code(s): N17.9 - Acute kidney failure, unspecified Status: Acute Assessment and Plan: relatively stable at this time as noted by admission labs (creatinine of 3.03mg/dL) creatinine normal 2 days prior to admission baseline creatinine runs ~ 0.9 - 1.1mg/dL suspect multifactorial etiology: prerenal factors infection/early sepsis (diverticulitis/colitis) contrast exposure (CT of A/P on 11/01) relative hypotension on presentation JAMIE-I/diuretic use prior to admission urinary retention(?) - difficulty urinating on admission so gamble catheter placed other (?) evaluation to date noted: renal ultrasound without obstruction urine electrolytes prerenal urine eosinophils negative CPK normal mild proteinuria holding lisinopril and spironolactone 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 diff toxin assay also noted by CT imaging to date: CT of C/A/P (11/05): Diffuse colitis detailed above, correlate for underlying pseudomembranous colitis. No perforation or abscess CT of A/P (11/04): No evidence of bowel perforation; persistent severe pancolitis CT of A/P (11/03): Interval progression of radiographically uncomplicated selby colitis which could be infectious, inflammatory or less likely ischemic in etiology CT of A/P (11/01): Sigmoid diverticulitis. No perforation or abscess complicated by diverticulitis follow culture data follow trend of WBC on antibiotics Infectious Disease following (3) Acute hypoxic respiratory failure: Code(s): J96.01 - Acute respiratory failure with hypoxia Status: Acute Assessment and Plan: improvement noted multifactorial etiology: bilateral pleural effusions atelectasis fluid overload atrial flutter with rapid ventricular response pancolitis possible pneumonia (?) s/p thoracentesis (on 11/08) Pulmonary recommendations noted was getting fluid removed with dialysis follow respiratory status consider repeat imaging (i.e. CT of chest) for reassessment (4) Hyponatremia: Code(s): E87.1 - Hypo-osmolality and hyponatremia Status: Acute Assessment and Plan: as noted on admission possible chronic component -- sodium seems to run 129 - 136mmol/L since 2021 presumably worsen by: DONOVAN/ARF prerenal factors pleural effusions possible pneumonia urinary retention mild improvement s/p intial IVF resuscitation no improvement with repeat trial of IVFs evaluation to date: repeat urine electrolytes (11/17) non-prerenal noted abnormal SPEP and UPEP -- checking immunofixation TSH/thyroid studies noted cortisol okay suspect hypovolemic hyponatremia given history and objective data however, attempts at IVFs resulted in shortness of breath concerning for pulmonary edema (may need to d/c current IVFs again) attempting use of IV albumin for volume expansion follow trend of sodium (5) Metabolic acidosis: Code(s): E87.20 - Acidosis, unspecified Status: Acute Assessment and Plan: resolved due to DONOVAN/ARF and GI issues/symptoms fluctuating lactic acid levels noted follow repeat labs (6) Atrial flutter: Code(s): I48.92 - Unspecified atrial flutter Status: Acute Assessment and Plan: as noted by events early on 11/05 rate control strategy Cardiology recommendations noted on metoprolol was on IV amiodarone (temporary measure) Echo noted (on 11/07) left ventricular systolic function is hyperdynamic, estimated at > 70% left ventricular diastolic function is grade I diastolic dysfunction no aortic valve stenosis mild tricuspid valve regurgitation on anticoagulation (7) Elevated troponin: Code(s): R79.89 - Other specified abnormal findings of blood chemistry Status: Acute Assessment and Plan: due to DONOVAN versus atrial fluttter with RVR trend noted Cardiology comments noted (8) Hypertension: Code(s): I10 - Essential (primary) hypertension Status: Chronic Assessment and Plan: reasonable control holding JAMIE-I due to #1 follow trend of hemodynamics Will continue to follow. Subjective Date/time seen: 11/20/24 10:57 Interval history: Follow-up for acute kidney injury/acute renal failure. Renal function/creatinine remains relatively stable with reasonable urine output noted; seems a slightly short of breath at the time of my visit but she states that she feels better overall; no significant change in sodium level; reports better oral intake although family at bedside does not seem to concur with that. Exam Narrative: General: elderly but WD/WN female in NAD Heart: RRR, normal S1 and S2; no rub Lungs: coarse and decreased at bases Abdomen: soft, nontender, positive bowel sounds Extremities: no cyanosis or clubbing; 1+ edema Skin: no rash Objective Data Vital Signs Vital Signs: Vital Signs Temp Pulse Resp BP Pulse Ox O2 Del Method 11/20/24 10:28 60 153/41 H 93 11/20/24 08:00 64 11/20/24 04:22 97 F L 60 16 150/56 H 92 11/20/24 04:00 60 11/20/24 00:00 62 11/19/24 21:41 70 20 90 Room Air 11/19/24 21:18 97.7 F 64 20 146/50 H 90 11/19/24 20:00 68 11/19/24 20:00 Room Air Intake/Output Intake/Output: Intake & Output 11/17/24 11/18/24 11/19/24 11/20/24 23:59 23:59 23:59 23:59 Intake Total 2259 1569 214 1539 Output Total 883 814 1083 450 Balance 1509 690 -50 1140 Meds/Results Medications: Active Medications Generic Name Dose Route Start Last Admin Trade Name Freq PRN Reason Stop Dose Admin Acetaminophen 650 mg 11/06/24 12:18 11/09/24 13:38 Acetaminophen 325 Mg Tablet PO 650 mg Q4H PRN Administration Headache Alprazolam 0.25 mg 11/11/24 06:34 11/20/24 14:56 Alprazolam (*Crx) 0.25 Mg Tablet PO 0.25 mg WITH DIALYSIS PRN Administration Anxiety Alteplase, Recombinant 2 mg 11/11/24 21:39 11/11/24 22:17 Alteplase 2 Mg Vial (Cathflo) IV PUSH 2 mg ONCE PRN Administration Line Occlusion Apixaban 2.5 mg 11/15/24 21:00 11/20/24 10:28 Apixaban 2.5 Mg Tablet PO 2.5 mg On Hold: 11/20/24 16:42 Q12HR KEVIN Administration Cyclosporine 1 drop 11/03/24 21:00 11/20/24 10:29 Cyclosporine 0.4 Ml Ophth Solution EACH EYE 1 drop Q12HR KEVIN Administration Albumin Human 50 mls @ 50 mls/hr 11/19/24 15:30 11/20/24 14:59 Albutein IVPB 11/21/24 06:59 50 mls/hr Q8HR KEVIN Administration Metoprolol Tartrate 50 mg 11/08/24 09:00 11/20/24 10:28 Metoprolol Tartrate 50 Mg Tab PO 50 mg BID KEVIN Administration Sodium Chloride 10 ml 11/06/24 22:00 11/20/24 15:01 Central Line Flush IV PUSH 10 ml Q8HR KEVIN Administration Sodium Chloride 10 ml 11/06/24 14:29 Central Line Flush IV PUSH PRN PRN with TPN bag changes Sodium Chloride 20 ml 11/06/24 14:29 11/19/24 05:57 Central Line Flush IV PUSH 20 ml PRN PRN Administration after blood draws Sodium Chloride 1 spray 11/15/24 16:13 11/15/24 17:13 Saline 0.65% Rodrigo Soln 44 Ml Btl NASAL 1 spray Q6HR PRN Administration Congestion Sodium Chloride 1 gm 11/17/24 09:00 11/20/24 11:11 Sodium Chloride 1 Gm Tablet PO 1 gm BID KEVIN Administration Trazodone HCl 50 mg 11/03/24 21:00 11/19/24 21:10 Trazodone Hcl 50 Mg Tablet PO 50 mg QHS KEVIN Administration Vancomycin HCl 250 mg 11/16/24 06:00 11/20/24 13:16 Vancomycin Hcl 125 Mg Oral Capsule PO 11/30/24 00:01 250 mg Q6HR KEVIN Administration Vancomycin HCl 125 mg 11/30/24 06:00 Vancomycin Hcl 125 Mg Oral Capsule PO 12/07/24 00:01 Q6HR [facility] Vancomycin HCl 125 mg 12/07/24 09:00 Vancomycin Hcl 125 Mg Oral Capsule PO 12/13/24 21:01 Q12HR [facility] Vancomycin HCl 125 mg 12/14/24 09:00 Vancomycin Hcl 125 Mg Oral Capsule PO 12/27/24 09:01 DAILY [facility] Vancomycin HCl 125 mg 12/28/24 09:00 Vancomycin Hcl 125 Mg Oral Capsule PO 01/09/25 09:01 Q48HR [facility] Radiology Results: ITS Impressions Abdomen/Pelvis CT 11/04/24 12:36 IMPRESSION: 1. No evidence of bowel perforation. 2. Persistent severe pancolitis. 3. New small scattered ascites. 4. New small pleural effusions and significant bibasilar atelectasis. Renal Ultrasound 11/04/24 19:07 Impression: Simple appearing left renal cyst. No significant medical renal disease or obstruction Abdomen X-Ray 11/05/24 16:02 Impression: 1. Findings concerning for small bowel obstruction. CT is suggested Chest/Abdomen/Pelvis CT 11/05/24 17:04 IMPRESSION: 1. Diffuse colitis detailed above, correlate for underlying pseudomembranous colitis. No perforation or abscess. Follow-up recommended to assess. 2. CHF with superimposed probable bronchopneumonia. 3. Incidental findings above. Contrast-enhanced MRI recommended Head CT 11/06/24 12:46 Impression: 1.No acute intracranial abnormality. Thoracentesis Ultrasound 11/08/24 11:36 IMPRESSION: 1. Successful ultrasound-guided thoracentesis yielding 250 mL of yellow fluid. Chest X-Ray 11/19/24 13:33 IMPRESSION: 1. No change. Venous Doppler Study 11/19/24 18:32 Impression: Negative for DVT. Labs Labs: Laboratory Tests 11/20/24 05:05 11/20/24 05:06 Calcium 7.4 L Phosphorus 3.0 Magnesium 1.6 Albumin 2.5 L Microbiology 11/08/24 10:58 Thoracentesis Fluid Anaerobic Culture Extend Incubation - Preliminary 11/08/24 10:58 Thoracentesis Fluid Sterile Body Fluid Culture - Final
--- NOTE | 2024-11-20 10:57 | P.PNNP_ITS ---
Progress Note: A&P Assessment and Plan (1) Acute kidney injury: Code(s): N17.9 - Acute kidney failure, unspecified Status: Acute Assessment and Plan: * relatively stable at this time * as noted by admission labs (creatinine of 3.03mg/dL) * creatinine normal 2 days prior to admission * baseline creatinine runs ~ 0.9 - 1.1mg/dL * suspect multifactorial etiology: * prerenal factors * infection/early sepsis (diverticulitis/colitis) * contrast exposure (CT of A/P on 11/01) * relative hypotension on presentation * JAMIE-I/diuretic use prior to admission * urinary retention(?) - difficulty urinating on admission so gamble catheter placed * other (?) * evaluation to date noted: * renal ultrasound without obstruction * urine electrolytes prerenal * urine eosinophils negative * CPK normal * mild proteinuria * holding lisinopril and spironolactone * initiated on [employer]/HD on 11/10 * last HD treatment on 11/14 * follow trend of repeat labs and UOP (2) Clostridium difficile colitis: Code(s): A04.72 - Enterocolitis due to Clostridium difficile, not specified as recurrent Status: Acute Assessment and Plan: * demonstrated by positive C. diff toxin assay * also noted by CT imaging to date: * CT of C/A/P (11/05): Diffuse colitis detailed above, correlate for underlying pseudomembranous colitis. No perforation or abscess * CT of A/P (11/04): No evidence of bowel perforation; persistent severe pancolitis * CT of A/P (11/03): Interval progression of radiographically uncomplicated selby colitis which could be infectious, inflammatory or less likely ischemic in etiology * CT of A/P (11/01): Sigmoid diverticulitis. No perforation or abscess * complicated by diverticulitis * follow culture data * follow trend of WBC * on antibiotics * Infectious Disease following (3) Acute hypoxic respiratory failure: Code(s): J96.01 - Acute respiratory failure with hypoxia Status: Acute Assessment and Plan: * improvement noted * multifactorial etiology: * bilateral pleural effusions * atelectasis * fluid overload * atrial flutter with rapid ventricular response * pancolitis * possible pneumonia (?) * s/p thoracentesis (on 11/08) * Pulmonary recommendations noted * was getting fluid removed with dialysis * follow respiratory status * consider repeat imaging (i.e. CT of chest) for reassessment (4) Hyponatremia: Code(s): E87.1 - Hypo-osmolality and hyponatremia Status: Acute Assessment and Plan: * as noted on admission * possible chronic component -- sodium seems to run 129 - 136mmol/L since 2021 * presumably worsen by: * DONOVAN/ARF * prerenal factors * pleural effusions * possible pneumonia * urinary retention * mild improvement s/p intial IVF resuscitation * no improvement with repeat trial of IVFs * evaluation to date: * repeat urine electrolytes (11/17) non-prerenal * noted abnormal SPEP and UPEP -- checking immunofixation * TSH/thyroid studies noted * cortisol okay * suspect hypovolemic hyponatremia given history and objective data * however, attempts at IVFs resulted in shortness of breath concerning for pulmonary edema (may need to d/c current IVFs again) * attempting use of IV albumin for volume expansion * follow trend of sodium (5) Metabolic acidosis: Code(s): E87.20 - Acidosis, unspecified Status: Acute Assessment and Plan: * resolved * due to DONOVAN/ARF and GI issues/symptoms * fluctuating lactic acid levels noted * follow repeat labs (6) Atrial flutter: Code(s): I48.92 - Unspecified atrial flutter Status: Acute Assessment and Plan: * as noted by events early on 11/05 * rate control strategy * Cardiology recommendations noted * on metoprolol * was on IV amiodarone (temporary measure) * Echo noted (on 11/07) * left ventricular systolic function is hyperdynamic, estimated at > 70% * left ventricular diastolic function is grade I diastolic dysfunction * no aortic valve stenosis * mild tricuspid valve regurgitation * on anticoagulation (7) Elevated troponin: Code(s): R79.89 - Other specified abnormal findings of blood chemistry Status: Acute Assessment and Plan: * due to DONOVAN versus atrial fluttter with RVR * trend noted * Cardiology comments noted (8) Hypertension: Code(s): I10 - Essential (primary) hypertension Status: Chronic Assessment and Plan: * reasonable control * holding JAMIE-I due to #1 * follow trend of hemodynamics Will continue to follow. L Subjective Date/time seen: 11/20/24 10:57 Interval history: Follow-up for acute kidney injury/acute renal failure. Renal function/creatinine remains relatively stable with reasonable urine output noted; seems a slightly short of breath at the time of my visit but she states that she feels better overall; no significant change in sodium level; reports better oral intake although family at bedside does not seem to concur with that. Exam 2 Narrative: General: elderly but WD/WN female in NAD Heart: RRR, normal S1 and S2; no rub Lungs: coarse and decreased at bases Abdomen: soft, nontender, positive bowel sounds Extremities: no cyanosis or clubbing; 1+ edema Skin: no rash Objective Data Vital Signs Vital Signs: Vital Signs Temp Pulse Resp BP Pulse Ox O2 Del Method 11/20/24 10:28 60 153/41 H 93 11/20/24 08:00 64 11/20/24 04:22 97 F L 60 16 150/56 H 92 11/20/24 04:00 60 11/20/24 00:00 62 11/19/24 21:41 70 20 90 Room Air 11/19/24 21:18 97.7 F 64 20 146/50 H 90 11/19/24 20:00 68 11/19/24 20:00 Room Air Intake/Output Intake/Output: Intake & Output 11/17/24 11/18/24 11/19/24 11/20/24 23:59 23:59 23:59 23:59 Intake Total 2259 0614 386 0740 Output Total 733 094 4594 450 Balance 1509 690 -50 1140 Meds/Results Medications: Active Medications Generic Name Dose Route Start Last Admin Trade Name Freq PRN Reason Stop Dose Admin Acetaminophen 650 mg 11/06/24 12:18 11/09/24 13:38 Acetaminophen 325 Mg Tablet PO 650 mg Q4H PRN Administration Headache Alprazolam 0.25 mg 11/11/24 06:34 11/20/24 14:56 Alprazolam (*Crx) 0.25 Mg Tablet PO 0.25 mg WITH DIALYSIS PRN Administration Anxiety Alteplase, Recombinant 2 mg 11/11/24 21:39 11/11/24 22:17 Alteplase 2 Mg Vial (Cathflo) IV PUSH 2 mg ONCE PRN Administration Line Occlusion Apixaban 2.5 mg 11/15/24 21:00 11/20/24 10:28 Apixaban 2.5 Mg Tablet PO 2.5 mg On Hold: 11/20/24 16:42 Q12HR KEVIN Administration Cyclosporine 1 drop 11/03/24 21:00 11/20/24 10:29 Cyclosporine 0.4 Ml Ophth Solution EACH EYE 1 drop Q12HR KEVIN Administration Albumin Human 50 mls @ 50 mls/hr 11/19/24 15:30 11/20/24 14:59 Albutein IVPB 11/21/24 06:59 50 mls/hr Q8HR KEVIN Administration Metoprolol Tartrate 50 mg 11/08/24 09:00 11/20/24 10:28 Metoprolol Tartrate 50 Mg Tab PO 50 mg BID KEVIN Administration Sodium Chloride 10 ml 11/06/24 22:00 11/20/24 15:01 Central Line Flush IV PUSH 10 ml Q8HR KEVIN Administration Sodium Chloride 10 ml 11/06/24 14:29 Central Line Flush IV PUSH PRN PRN with TPN bag changes Sodium Chloride 20 ml 11/06/24 14:29 11/19/24 05:57 Central Line Flush IV PUSH 20 ml PRN PRN Administration after blood draws Sodium Chloride 1 spray 11/15/24 16:13 11/15/24 17:13 Saline 0.65% Rodrigo Soln 44 Ml Btl NASAL 1 spray Q6HR PRN Administration Congestion Sodium Chloride 1 gm 11/17/24 09:00 11/20/24 11:11 Sodium Chloride 1 Gm Tablet PO 1 gm BID KEVIN Administration Trazodone HCl 50 mg 11/03/24 21:00 11/19/24 21:10 Trazodone Hcl 50 Mg Tablet PO 50 mg QHS KEVIN Administration Vancomycin HCl 250 mg 11/16/24 06:00 11/20/24 13:16 Vancomycin Hcl 125 Mg Oral Capsule PO 11/30/24 00:01 250 mg Q6HR KEVIN Administration Vancomycin HCl 125 mg 11/30/24 06:00 Vancomycin Hcl 125 Mg Oral Capsule PO 12/07/24 00:01 Q6HR KEVIN Vancomycin HCl 125 mg 12/07/24 09:00 Vancomycin Hcl 125 Mg Oral Capsule PO 12/13/24 21:01 Q12HR KEVIN Vancomycin HCl 125 mg 12/14/24 09:00 Vancomycin Hcl 125 Mg Oral Capsule PO 12/27/24 09:01 DAILY KEVIN Vancomycin HCl 125 mg 12/28/24 09:00 Vancomycin Hcl 125 Mg Oral Capsule PO 01/09/25 09:01 Q48HR [facility] Radiology Results: ITS Impressions Abdomen/Pelvis CT 11/04/24 12:36 IMPRESSION: 1. No evidence of bowel perforation. 2. Persistent severe pancolitis. 3. New small scattered ascites. 4. New small pleural effusions and significant bibasilar atelectasis. Renal Ultrasound 11/04/24 19:07 Impression: Simple appearing left renal cyst. No significant medical renal disease or obstruction Abdomen X-Ray 11/05/24 16:02 Impression: 1. Findings concerning for small bowel obstruction. CT is suggested Chest/Abdomen/Pelvis CT 11/05/24 17:04 IMPRESSION: 1. Diffuse colitis detailed above, correlate for underlying pseudomembranous colitis. No perforation or abscess. Follow-up recommended to assess. 2. CHF with superimposed probable bronchopneumonia. 3. Incidental findings above. Contrast-enhanced MRI recommended Head CT 11/06/24 12:46 Impression: 1.No acute intracranial abnormality. Thoracentesis Ultrasound 11/08/24 11:36 IMPRESSION: 1. Successful ultrasound-guided thoracentesis yielding 250 mL of yellow fluid. Chest X-Ray 11/19/24 13:33 IMPRESSION: 1. No change. Venous Doppler Study 11/19/24 18:32 Impression: Negative for DVT. Labs Labs: Laboratory Tests 11/20/24 05:05 11/20/24 05:06 Calcium 7.4 L Phosphorus 3.0 Magnesium 1.6 Albumin 2.5 L Microbiology 11/08/24 10:58 Thoracentesis Fluid Anaerobic Culture Extend Incubation - Preliminary 11/08/24 10:58 Thoracentesis Fluid Sterile Body Fluid Culture - Final
[2024-11-20] MEDS: SODIUM CHLORIDE 0.9% IV 1,000 ML 75 ML IV CONT (11:11)
[2024-11-20] MEDS: SODIUM CHLORIDE 1 GM TABLET PO ×2 (11:11→18:12)
--- NOTE | 2024-11-20 11:54 | PCNFU ---
Nutrition Follow-Up Complete: Inadequate oral intake related to altered GI function as evidenced by diverticulitis Diet advancement - Diet is advanced. Improve PO intake when diet advanced - Slow progress with goal. Continue same goal Goal: Pt current nutrition is Heart healthy diet. Ensure Plus HP BID (350 kcal, 20 g protein each) and Banatrol BID for C-diff diarrhea. Nutrition recommendation: No new recommendations. Continue to encourage PO intake. Agree with current nutrition care plan and orders. Last recorded weight is 84 kg. Bowel Motility: +8 BMs 11/18 Labs Reviewed: Hgb 9.3, Hct 27.9, Alb 2.5, Na 122, GFR 49, BUN 35, Cre 1.09, Glu 125 Meds Noted: Eliquis, NS, vancomycin Skin: No skin issues Additional Notes: Continues with some diarrhea. Poor appetite. Banatrol is on board. Agree with current orders. Monitoring diet orders, weights, labs, plan of care Follow up in 3 days
--- NOTE | 2024-11-20 14:54 | P.PNINF_ITS ---
Progress Note: A&P Assessment and Plan (1) Clostridium difficile colitis: Code(s): A04.72 - Enterocolitis due to Clostridium difficile, not specified as recurrent Status: Acute Assessment and Plan: -Severe C.difficile colitis has improved significantly -Diarrhea resolving (2) Leukocytosis: Code(s): D72.829 - Elevated white blood cell count, unspecified Status: Acute Assessment and Plan: -Reactive from C.difficile infection -WBC improving overall -Continue to monitor (3) Diverticulitis large intestine: Code(s): K57.32 - Diverticulitis of large intestine without perforation or abscess without bleeding Status: Acute Assessment and Plan: -Diagnosed one week prior to admission -S/P Augmentin x 5 days prior to admission -Discontinued Zosyn on 11/10/24 as patient has completed 8 day course for diverticulitis (4) Colitis: Code(s): K52.9 - Noninfective gastroenteritis and colitis, unspecified Status: Acute Assessment and Plan: -Pancolitis noted on CT -Due to C.difficile colitis (5) Acute kidney injury: Code(s): N17.9 - Acute kidney failure, unspecified Status: Acute Assessment and Plan: -Management as per Nephrology service -Plans for short-term HD (6) Pleural effusion: Code(s): J90 - Pleural effusion, not elsewhere classified Status: Acute Assessment and Plan: -S/P Left thoracentesis 11/08/24 -Pleural fluid studies not consistent with empyema -Await pleural fluid cultures negative for growth -Management as per Pulmonary service Plan - maintain planned pulse/ taper with oral vancomycin. Currently at 250 mg Q 6 hours changed at 11/16/2024. would plan q.8 hour dosing of oral vancomycin starting 11/30 and then decrease to twice daily dosing on 12/07. daily doses starting on 12/14 and then every other day dosing x2 weeks starting on 12/21/2024. Hold any additional IV Flagyl at this point. Monitor abdominal exam. Follow-up of any other antimicrobials. follow stool output with change in oral vancomycin therapy. Discussed with nursing at bedside Antimicrobial plan of care discussed with patient. All questions answered Patient was seen via video telehealth consultation with the assistance of staff. Chart, data, and patient independently reviewed. Patient was located at [facility] while I was located in my [place] office. Received verbal consent from patient. Subjective Date/time seen: 11/20/24 14:54 Interval history: She feels a bit better. Was able to eat some food for lunch. No obvious diarrhea after the food. Had some soft stools reported by nursing. No abdominal cramping. Exam Narrative: Sitting up in chair. No respiratory distress. No accessory muscles for breathing. No rash. No IV phlebitis. Abdominal distension Objective Data Vital Signs Vital Signs: Vital Signs - 24 hr 11/19/24 16:00 11/19/24 17:07 11/19/24 20:00 Temperature Pulse Rate 80 64 Respiratory Rate Blood Pressure Pulse Oximetry Oxygen Delivery Room Air 11/19/24 20:00 11/19/24 21:18 11/19/24 21:41 Temperature 36.5 C Pulse Rate 68 64 70 Respiratory Rate 20 20 Blood Pressure 146/50 H Pulse Oximetry 90 90 Oxygen Delivery Room Air 11/20/24 00:00 11/20/24 04:00 11/20/24 04:22 Temperature 36.1 C L Pulse Rate 62 60 60 Respiratory Rate 16 Blood Pressure 150/56 H Pulse Oximetry 92 Oxygen Delivery 11/20/24 08:00 11/20/24 10:28 11/20/24 11:00 Temperature Pulse Rate 64 60 60 Respiratory Rate Blood Pressure 153/41 H Pulse Oximetry 93 Oxygen Delivery 11/20/24 12:00 11/20/24 13:45 Temperature 36.2 C L Pulse Rate 81 67 Respiratory Rate 20 Blood Pressure 141/47 H Pulse Oximetry 95 Oxygen Delivery Intake/Output Intake/Output: Intake & Output 11/17/24 11/18/24 11/19/24 11/20/24 23:59 23:59 23:59 23:59 Intake Total 2259 3569 215 9668 Output Total 863 281 1041 450 Balance 1509 690 -50 1090 Meds/Results Medications: Active Medications Generic Name Dose Route Start Last Admin Trade Name Freq PRN Reason Stop Dose Admin Acetaminophen 650 mg 11/06/24 12:18 11/09/24 13:38 Acetaminophen 325 Mg Tablet PO 650 mg Q4H PRN Administration Headache Alprazolam 0.25 mg 11/11/24 06:34 11/14/24 10:44 Alprazolam (*Crx) 0.25 Mg Tablet PO 0.25 mg WITH DIALYSIS PRN Administration Anxiety Alteplase, Recombinant 2 mg 11/11/24 21:39 11/11/24 22:17 Alteplase 2 Mg Vial (Cathflo) IV PUSH 2 mg ONCE PRN Administration Line Occlusion Apixaban 2.5 mg 11/15/24 21:00 11/20/24 10:28 Apixaban 2.5 Mg Tablet PO 2.5 mg Q12HR KEVIN Administration Cyclosporine 1 drop 11/03/24 21:00 11/20/24 10:29 Cyclosporine 0.4 Ml Ophth Solution EACH EYE 1 drop Q12HR KEVIN Administration Sodium Chloride 1,000 mls @ 75 mls/hr 11/19/24 15:15 11/20/24 11:11 Normal Saline Iv IV CONT 75 mls/hr .[id number] KEVIN Administration Albumin Human 50 mls @ 50 mls/hr 11/19/24 15:30 11/20/24 05:11 Albutein IVPB 11/21/24 06:59 50 mls/hr Q8HR KEVIN Administration Metoprolol Tartrate 50 mg 11/08/24 09:00 11/20/24 10:28 Metoprolol Tartrate 50 Mg Tab PO 50 mg BID KEVIN Administration Sodium Chloride 10 ml 11/06/24 22:00 11/20/24 05:11 Central Line Flush IV PUSH 10 ml Q8HR KEVIN Administration Sodium Chloride 10 ml 11/06/24 14:29 Central Line Flush IV PUSH PRN PRN with TPN bag changes Sodium Chloride 20 ml 11/06/24 14:29 11/19/24 05:57 Central Line Flush IV PUSH 20 ml PRN PRN Administration after blood draws Sodium Chloride 1 spray 11/15/24 16:13 11/15/24 17:13 Saline 0.65% Rodrigo Soln 44 Ml Btl NASAL 1 spray Q6HR PRN Administration Congestion Sodium Chloride 1 gm 11/17/24 09:00 11/20/24 11:11 Sodium Chloride 1 Gm Tablet PO 1 gm BID KEVIN Administration Trazodone HCl 50 mg 11/03/24 21:00 11/19/24 21:10 Trazodone Hcl 50 Mg Tablet PO 50 mg QHS KEVIN Administration Vancomycin HCl 250 mg 11/16/24 06:00 11/20/24 13:16 Vancomycin Hcl 125 Mg Oral Capsule PO 11/30/24 00:01 250 mg Q6HR KEVIN Administration Vancomycin HCl 125 mg 11/30/24 06:00 Vancomycin Hcl 125 Mg Oral Capsule PO 12/07/24 00:01 Q6HR [facility] Vancomycin HCl 125 mg 12/07/24 09:00 Vancomycin Hcl 125 Mg Oral Capsule PO 12/13/24 21:01 Q12HR [facility] Vancomycin HCl 125 mg 12/14/24 09:00 Vancomycin Hcl 125 Mg Oral Capsule PO 12/27/24 09:01 DAILY [facility] Vancomycin HCl 125 mg 12/28/24 09:00 Vancomycin Hcl 125 Mg Oral Capsule PO 01/09/25 09:01 Q48HR [facility] Radiology Results: ITS Impressions Abdomen/Pelvis CT 11/04/24 12:36 IMPRESSION: 1. No evidence of bowel perforation. 2. Persistent severe pancolitis. 3. New small scattered ascites. 4. New small pleural effusions and significant bibasilar atelectasis. Renal Ultrasound 11/04/24 19:07 Impression: Simple appearing left renal cyst. No significant medical renal disease or obstruction Abdomen X-Ray 11/05/24 16:02 Impression: 1. Findings concerning for small bowel obstruction. CT is suggested Chest/Abdomen/Pelvis CT 11/05/24 17:04 IMPRESSION: 1. Diffuse colitis detailed above, correlate for underlying pseudomembranous colitis. No perforation or abscess. Follow-up recommended to assess. 2. CHF with superimposed probable bronchopneumonia. 3. Incidental findings above. Contrast-enhanced MRI recommended Head CT 11/06/24 12:46 Impression: 1.No acute intracranial abnormality. Thoracentesis Ultrasound 11/08/24 11:36 IMPRESSION: 1. Successful ultrasound-guided thoracentesis yielding 250 mL of yellow fluid. Chest X-Ray 11/19/24 13:33 IMPRESSION: 1. No change. Venous Doppler Study 11/19/24 18:32 Impression: Negative for DVT. Labs Labs: Laboratory Results - last 24 hr 11/20/24 11/20/24 05:05 05:06 WBC 11.4 H RBC 3.02 L Hgb 9.3 L Hct 27.9 L MCV 92.4 MCH 30.8 MCHC 33.3 RDW 14.4 Plt Count 264 MPV 9.7 Immature Gran % (Auto) 1.0 H Neut % (Auto) 82.4 H Lymph % (Auto) 7.7 L [place] % (Auto) 8.2 Eos % (Auto) 0.3 Baso % (Auto) 0.4 Lymph # (Auto) 0.88 L [place] # (Auto) 0.9 H Eos # (Auto) 0.0 Baso # (Auto) 0.0 Abs Immat Gran (auto) 0.11 H Absolute Neuts (auto) 9.4 H Absolute Nucleated RBC 0.000 Nucleated RBC % 0.0 Sodium 122 L 122 L Potassium 3.8 3.8 Chloride 95 L 95 L Carbon Dioxide 21 L 21 L Anion Gap 6 6 BUN 34 H 34 H Creatinine 1.06 H 1.09 H Estim Creat Clear Calc 40 39 Estimated GFR 50 L 49 L Glucose 125 H 125 H Calcium 7.4 L 7.4 L Phosphorus 3.0 Magnesium 1.6 Albumin 2.5 L
[2024-11-20] MEDS: ALPRAZolam (*CRX) 0.25 MG TABLET PO (14:56)
[2024-11-20] MEDS: FUROSEMIDE INJ 40 MG/4 ML VIAL IV PUSH (18:10)
[2024-11-21] VITALS (14 sets, daily range): BP systolic 145–172; BP diastolic 41–55; PULSE 52–68; RESP 14–20; TEMP 36.4–36.5; O2SAT 90–96
[2024-11-21 00:02] LABS: Urea Random Urine 152 MG/DL
[2024-11-21 00:04] LABS: Total Protein Urine Random 12 mg/dL; Ur Ttl Prot Creatinine Ratio 1.17 mg/mg (0-0.20)
[2024-11-21 04:20] LABS: Hematocrit 27.1 % (37.0-47.0); Hemoglobin 9.0 g/dL (12.0-15.0); Immature Granulocyte Percent A 1.4 % (0-0.5); Lymphocytes Absolute Auto 0.89 K/mm3 (0.9-3.2); Mean Corpuscular HGB Conc 33.2 g/dl (32-36); Mean Corpuscular Hemoglobin 31.0 pg (26-34); Mean Corpuscular Volume 93.4 fl (80-100); Nucleated Red Blood Cells Absolute Auto 0.000 K/mm3 (0.0-0.012); Nucleated Red Blood Cells Perc 0.0 % (0.0-0.2); Platelet Count Result 236 k/mm3 (150-375); Red Blood Count 2.90 M/mm3 (4.2-5.4); White Blood Count 10.0 K/mm3 (4.5-10.0)
[2024-11-21 04:38] LABS: Alanine Aminotransferase 13 U/L (6-35); Albumin Level 2.7 g/dL (3.5-5.1); Alkaline Phosphatase 49 U/L (38-126); Anion Gap 4 mmol/L (4-12); Aspartate Amino Transferase 22 U/L (14-36); Bilirubin,Total 0.4 mg/dL (0.2-1.3); Blood Urea Nitrogen 31 mg/dL (7-17); Calcium 7.5 mg/dL (8.4-10.2); Carbon Dioxide 23 mmol/L (22-30); Chloride 97 mmol/L (98-107); Estimated CRCL calculation 44 ml/min; Estimated Glomerular Filt Rate 55; Glucose 111 mg/dL (65-110); Potassium 3.6 mmol/L (3.4-5.0); Sodium 124 mmol/L (137-145); Total Protein 4.8 g/dL (6.3-8.2)
[2024-11-21] MEDS: CENTRAL LINE FLUSH 10 ML IV PUSH ×3 (05:34→21:16)
[2024-11-21] MEDS: ALBUMIN HUMAN 25% 12.5 GM/50ML 50 ML IVPB (05:34)
[2024-11-21] MEDS: VANCOMYCIN HCL 125 MG ORAL CAPSULE 250 MG PO ×3 (05:35→23:10)
--- NOTE | 2024-11-21 07:38 | P.PNIM_ITS ---
Progress Note: A&P Assessment and Plan (1) Clostridium difficile colitis: Code(s): A04.72 - Enterocolitis due to Clostridium difficile, not specified as recurrent Status: Acute Assessment and Plan: - Metronidazole complete from 11/08/2024 to 11/15/2024 - per ID: maintain planned pulse/ taper with oral vancomycin. Currently at 250 mg Q 6 hours changed at 11/16/2024. would plan q.8 hour dosing of oral vancomycin starting 11/30 and then decrease to twice daily dosing on 12/07. daily doses starting on 12/14 and then every other day dosing x2 weeks starting on 12/21/2024. - monitor stool output while tapering vanc - Zosyn discontinued - leukocytosis and diarrhea improving - continue Banatrol -Appreciate ID recommendations (2) Acute hypoxic respiratory failure: Code(s): J96.01 - Acute respiratory failure with hypoxia Status: Acute Assessment and Plan: -Pulmonology consulted. Less likely pneumonia, pneumonia specific antibiotics discontinued. Status post thoracentesis on 11/08/2024 showing exudative effusion, not infectious, macrophage predominant, likely related to colitis/fluid overload related to acute kidney injury. - echo on 10/08 demonstrating normal left ventricular function. - CXR 11/19 with persistent left lower lobe atelectasis with associated effusion - CT chest 11/20 with increase in size of moderate-sized bilateral posterior layering pleural effusions with secondary dependent atelectasis including complete collapse of the bilateral lobes - encouraged incentive spirometry, pulmonary hygiene - intermittently requiring oxygen and tachypneic - repeat thoracentesis ordered (3) Pleural effusion: Code(s): J90 - Pleural effusion, not elsewhere classified Status: Acute Assessment and Plan: - management as above (4) Hyponatremia: Code(s): E87.1 - Hypo-osmolality and hyponatremia Status: Acute Assessment and Plan: - nephrology on board. Multiple interventions including dialysis, IV fluids, diuretics, salt tabs, 3% hypertonic with minimal improvement. Na 124 which is minimally improved, but patient's intake is improving so hoping sodium will continue to rise. - Nephrology following (5) Anemia: Code(s): D64.9 - Anemia, unspecified Status: Acute Assessment and Plan: - Hgb 11.7 on admission, trended down to 9.0 11/21. Denied signs of bleeding, - likely multifactorial in setting of renal failure, IV fluids, critical illness - check iron studies (6) Adjustment disorder with depressed mood: Code(s): F43.21 - Adjustment disorder with depressed mood Status: Acute Assessment and Plan: - intermittently refused therapy. She is depressed because she has never been this ill before, relatively healthy previous to this admission. She denies adamantly any suicidal ideation, she also refuses to see Psychiatry or to start any pharmacological therapy. - affect seems to be improving. She worked with therapy 11/19. Encouraged to continue participation. Reassurance provided. - continue trazodone qHS (7) Hypertension: Code(s): I10 - Essential (primary) hypertension Status: Chronic Assessment and Plan: -Lisinopril and spironolactone on hold due to DONOVAN -Amlodipine initially on hold to allow titration of beta-christine. Will resume due to high BP trend. - monitor BP (8) Atrial flutter: Code(s): I48.92 - Unspecified atrial flutter Status: Acute Assessment and Plan: -New diagnosis, now converted to sinus rhythm. -Continue metoprolol 50 mg p.o. b.i.d.. -Digoxin stopped due to renal failure - continue Eliquis -Keep potassium greater than 4 magnesium greater than 2, keep renal failure in consideration when replacing electrolytes (9) Acute kidney injury: Code(s): N17.9 - Acute kidney failure, unspecified Status: Acute Assessment and Plan: -Infection vs Contrast related injury vs prerenal. Creatinine normal 2 days prior to admission Nephrology is following, right IJ Cecil dialysis catheter placed on 11/10/2024. -Dialysis started on 11/10/2024. No dialysis for some time now, Nephrology continues to manage. -Renal ultrasound without obstruction, urine electrolytes pre renal, urine eosinophils negative, CPK normal, mild proteinuria -Holding lisinopril and spironolactone -Hol[place] catheter in place -Follow renal function labs and urine output -Disposition pending. When ready to pull out the IJ, hold Eliquis for at least 24 hours. (10) Anxiety: Code(s): F41.9 - Anxiety disorder, unspecified Status: Acute Assessment and Plan: - continue Xanax, trazodone Plan Code status: full code DVT prophylaxis: Eliquis Dispo: possibly RO when medically stable. Care coordination following. Subjective Date/time seen: 11/21/24 07:38 Interval history: Patient seen and examined at bedside. Overall doing much better, eating better and in better spirits. Breathing feels improved. Denied abdominal pain. Review of Systems Review of Systems: 12 systems were reviewed and are negativ e except for as per HPI. Exam Narrative: General: NAD, appears deconditioned Eyes: EOMI ENT: neck supple Cardiovascular: Regular rate and rhythm Respiratory: decreased in LLL otherwise clear to auscultation. Tachypneic without overt respiratory distress on 2L NC Gastrointestinal: Soft, non tender Genitourinary: no suprapubic tenderness Musculoskeletal: No edema Skin: warm, dry Neuro: Alert. Psych: Mood appropriate Objective Data Vital Signs Vital Signs: Vital Signs - 24 hr 11/20/24 08:00 11/20/24 08:00 11/20/24 10:28 Temperature Pulse Rate 64 60 Respiratory Rate Blood Pressure Pulse Oximetry Oxygen Delivery Room Air Oxygen Flow Rate 11/20/24 11:00 11/20/24 12:00 11/20/24 13:45 Temperature 97.1 F L Pulse Rate 60 81 67 Respiratory Rate 20 Blood Pressure 153/41 H 141/47 H Pulse Oximetry 93 95 Oxygen Delivery Oxygen Flow Rate 11/20/24 15:01 11/20/24 16:00 11/20/24 17:31 Temperature 97.6 F Pulse Rate 71 69 69 Respiratory Rate 18 Blood Pressure 153/45 H 163/50 H Pulse Oximetry 96 96 Oxygen Delivery Oxygen Flow Rate 11/20/24 18:11 11/20/24 20:00 11/20/24 20:00 Temperature Pulse Rate 67 61 Respiratory Rate Blood Pressure Pulse Oximetry 92 Oxygen Delivery Nasal Cannula Oxygen Flow Rate 2 11/20/24 21:09 11/21/24 00:00 11/21/24 03:59 Temperature 96.8 F L 97.7 F Pulse Rate 59 L 52 L 62 Respiratory Rate 18 18 Blood Pressure 175/60 H 172/55 H Pulse Oximetry 97 95 Oxygen Delivery Oxygen Flow Rate 11/21/24 04:00 Temperature Pulse Rate 60 Respiratory Rate Blood Pressure Pulse Oximetry Oxygen Delivery Oxygen Flow Rate Intake/Output Intake/Output: Intake & Output 11/18/24 11/19/24 11/20/24 11/21/24 23:59 23:59 23:59 23:59 Intake Total 1403 585 2223 390 Output Total 580 1000 1000 400 Balance 690 -50 1040 -10 Meds/Results Medications: Active Medications Generic Name Dose Route Start Last Admin Trade Name Walter PRN Reason Stop Dose Admin Acetaminophen 650 mg 11/06/24 12:18 11/09/24 13:38 Acetaminophen 325 Mg Tablet PO 650 mg Q4H PRN Administration Headache Alteplase, Recombinant 2 mg 11/11/24 21:39 11/11/24 22:17 Alteplase 2 Mg Vial (Cathflo) IV PUSH 2 mg ONCE PRN Administration Line Occlusion Apixaban 2.5 mg 11/15/24 21:00 11/20/24 10:28 Apixaban 2.5 Mg Tablet PO 2.5 mg On Hold: 11/20/24 16:42 Q12HR KEVIN Administration Cyclosporine 1 drop 11/03/24 21:00 11/20/24 21:22 Cyclosporine 0.4 Ml Ophth Solution EACH EYE 1 drop Q12HR KEVIN Administration Metoprolol Tartrate 50 mg 11/08/24 09:00 11/20/24 18:11 Metoprolol Tartrate 50 Mg Tab PO 50 mg BID KEVIN Administration Sodium Chloride 10 ml 11/06/24 22:00 11/21/24 05:34 Central Line Flush IV PUSH 10 ml Q8HR KEVIN Administration Sodium Chloride 10 ml 11/06/24 14:29 Central Line Flush IV PUSH PRN PRN with TPN bag changes Sodium Chloride 20 ml 11/06/24 14:29 11/19/24 05:57 Central Line Flush IV PUSH 20 ml PRN PRN Administration after blood draws Sodium Chloride 1 spray 11/15/24 16:13 11/15/24 17:13 Saline 0.65% Rodrigo Soln 44 Ml Btl NASAL 1 spray Q6HR PRN Administration Congestion Sodium Chloride 1 gm 11/17/24 09:00 11/20/24 18:12 Sodium Chloride 1 Gm Tablet PO 1 gm BID KEVIN Administration Trazodone HCl 50 mg 11/03/24 21:00 11/20/24 21:22 Trazodone Hcl 50 Mg Tablet PO 50 mg QHS KEVIN Administration Vancomycin HCl 250 mg 11/16/24 06:00 11/21/24 05:35 Vancomycin Hcl 125 Mg Oral Capsule PO 11/30/24 00:01 250 mg Q6HR KEVIN Administration Vancomycin HCl 125 mg 11/30/24 06:00 Vancomycin Hcl 125 Mg Oral Capsule PO 12/07/24 00:01 Q6HR [facility] Vancomycin HCl 125 mg 12/07/24 09:00 Vancomycin Hcl 125 Mg Oral Capsule PO 12/13/24 21:01 Q12HR [facility] Vancomycin HCl 125 mg 12/14/24 09:00 Vancomycin Hcl 125 Mg Oral Capsule PO 12/27/24 09:01 DAILY [facility] Vancomycin HCl 125 mg 12/28/24 09:00 Vancomycin Hcl 125 Mg Oral Capsule PO 01/09/25 09:01 Q48HR [facility] Radiology Results: ITS Impressions Abdomen/Pelvis CT 11/04/24 12:36 IMPRESSION: 1. No evidence of bowel perforation. 2. Persistent severe pancolitis. 3. New small scattered ascites. 4. New small pleural effusions and significant bibasilar atelectasis. Renal Ultrasound 11/04/24 19:07 Impression: Simple appearing left renal cyst. No significant medical renal disease or obstruction Abdomen X-Ray 11/05/24 16:02 Impression: 1. Findings concerning for small bowel obstruction. CT is suggested Chest/Abdomen/Pelvis CT 11/05/24 17:04 IMPRESSION: 1. Diffuse colitis detailed above, correlate for underlying pseudomembranous colitis. No perforation or abscess. Follow-up recommended to assess. 2. CHF with superimposed probable bronchopneumonia. 3. Incidental findings above. Contrast-enhanced MRI recommended Head CT 11/06/24 12:46 Impression: 1.No acute intracranial abnormality. Thoracentesis Ultrasound 11/08/24 11:36 IMPRESSION: 1. Successful ultrasound-guided thoracentesis yielding 250 mL of yellow fluid. Chest X-Ray 11/19/24 13:33 IMPRESSION: 1. No change. Venous Doppler Study 11/19/24 18:32 Impression: Negative for DVT. Chest CT 11/20/24 16:02 IMPRESSION: 1. Increase in size of moderate sized bilateral posterior layering pleural effusions with secondary dependent atelectasis including complete collapse of the bilateral lower lobes. 2. Moderate amount of ascites in the visualized upper abdomen. 3. Mildly enlarged prevascular lymph node and the anterior mediastinum which is most likely reactive. Labs Labs: Laboratory Results - last 24 hr 11/20/24 11/20/24 11/21/24 23:32 23:32 04:13 WBC 10.0 RBC 2.90 L Hgb 9.0 L Hct 27.1 L MCV 93.4 MCH 31.0 MCHC 33.2 RDW 14.3 Plt Count 236 MPV 9.5 Immature Gran % (Auto) 1.4 H Neut % (Auto) 79.6 H Lymph % (Auto) 8.9 L [place] % (Auto) 9.0 H Eos % (Auto) 0.7 Baso % (Auto) 0.4 Lymph # (Auto) 0.89 L [place] # (Auto) 0.9 H Eos # (Auto) 0.1 Baso # (Auto) 0.0 Abs Immat Gran (auto) 0.14 H Absolute Neuts (auto) 8.0 H Absolute Nucleated RBC 0.000 Nucleated RBC % 0.0 Sodium 124 L Potassium 3.6 Chloride 97 L Carbon Dioxide 23 Anion Gap 4 BUN 31 H Creatinine 0.98 Estim Creat Clear Calc 44 Estimated GFR 55 L Glucose 111 H Calcium 7.5 L Total Bilirubin 0.4 AST 22 ALT 13 Alkaline Phosphatase 49 Total Protein 4.8 L Albumin 2.7 L U Random Total Protein 12 Ur Random Sodium 94 Ur Random Urea 152 Urine Creatinine 10.3 10.7 Protein/Creat Ratio 2 1.17 H Quality VTE Prophylaxis VTE prophylaxis: mechanical ordered and pharmacologic ordered
[2024-11-21] MEDS: METOPROLOL TARTRATE 50 MG TAB PO ×2 (08:39→17:52)
[2024-11-21] MEDS: cycloSPORINE 0.4 ML OPHTH SOLUTION 1 DROP EACH EYE ×2 (08:39→21:16)
[2024-11-21 09:03] LABS: Iron 17 ug/dL (37-170)
[2024-11-21 09:17] LABS: Percent Iron Saturation 9 % (20-50)
[2024-11-21 09:44] LABS: Ferritin 162.00 ng/mL (11.1-264)
--- NOTE | 2024-11-21 10:48 | PM.PNNEP ---
Progress Note: A&P Assessment and Plan (1) Acute kidney injury: Code(s): N17.9 - Acute kidney failure, unspecified Status: Acute Assessment and Plan: stable if not resolved as noted by admission labs (creatinine of 3.03mg/dL) creatinine normal 2 days prior to admission baseline creatinine runs ~ 0.9 - 1.1mg/dL suspect multifactorial etiology: prerenal factors infection/early sepsis (diverticulitis/colitis) contrast exposure (CT of A/P on 11/01) relative hypotension on presentation JAMIE-I/diuretic use prior to admission urinary retention(?) - difficulty urinating on admission so gamble catheter placed other (?) evaluation to date noted: renal ultrasound without obstruction urine electrolytes prerenal urine eosinophils negative CPK normal mild proteinuria holding lisinopril and spironolactone initiated on IP [employer]/HD on 11/10 last HD treatment on 11/14 not opposed to removal of temporary HD catheter follow trend of repeat labs and UOP (2) Clostridium difficile colitis: Code(s): A04.72 - Enterocolitis due to Clostridium difficile, not specified as recurrent Status: Acute Assessment and Plan: slow improvement demonstrated by positive C. diff toxin assay also noted by CT imaging to date: CT of C/A/P (11/05): Diffuse colitis detailed above, correlate for underlying pseudomembranous colitis. No perforation or abscess CT of A/P (11/04): No evidence of bowel perforation; persistent severe pancolitis CT of A/P (11/03): Interval progression of radiographically uncomplicated selby colitis which could be infectious, inflammatory or less likely ischemic in etiology CT of A/P (11/01): Sigmoid diverticulitis. No perforation or abscess complicated by diverticulitis follow culture data follow trend of WBC on antibiotics Infectious Disease following (3) Acute hypoxic respiratory failure: Code(s): J96.01 - Acute respiratory failure with hypoxia Status: Acute Assessment and Plan: improvement noted multifactorial etiology: bilateral pleural effusions atelectasis fluid overload atrial flutter with rapid ventricular response pancolitis possible pneumonia (?) s/p thoracentesis (on 11/08) Pulmonary recommendations noted CT of chest (on 11/20) noted noted plans for repeat thoracentesis would not be opposed to further PRN diuretics... (4) Hyponatremia: Code(s): E87.1 - Hypo-osmolality and hyponatremia Status: Acute Assessment and Plan: as noted on admission possible chronic component -- sodium seems to run 129 - 136mmol/L since 2021 presumably worsen by: DONOVAN/ARF prerenal factors pleural effusions possible pneumonia urinary retention mild improvement s/p intial IVF resuscitation no improvement with repeat trial of IVFs evaluation to date: repeat urine electrolytes (11/17) non-prerenal noted abnormal SPEP and UPEP -- checking immunofixation TSH/thyroid studies noted cortisol okay follow trend of sodium (5) Metabolic acidosis: Code(s): E87.20 - Acidosis, unspecified Status: Acute Assessment and Plan: resolved due to DONOVAN/ARF and GI issues/symptoms fluctuating lactic acid levels noted follow repeat labs (6) Atrial flutter: Code(s): I48.92 - Unspecified atrial flutter Status: Acute Assessment and Plan: as noted by events early on 11/05 rate control strategy Cardiology recommendations noted on metoprolol was on IV amiodarone (temporary measure) Echo noted (on 11/07) left ventricular systolic function is hyperdynamic, estimated at > 70% left ventricular diastolic function is grade I diastolic dysfunction no aortic valve stenosis mild tricuspid valve regurgitation on anticoagulation (7) Elevated troponin: Code(s): R79.89 - Other specified abnormal findings of blood chemistry Status: Acute Assessment and Plan: due to DONOVAN versus atrial fluttter with RVR trend noted Cardiology comments noted (8) Hypertension: Code(s): I10 - Essential (primary) hypertension Status: Chronic Assessment and Plan: reasonable control holding JAMIE-I due to #1 follow trend of hemodynamics Will continue to follow. Subjective Date/time seen: 11/21/24 10:48 Interval history: Follow-up for acute kidney injury/acute renal failure. IVF discontinued yesterday due to findings of chest CT -- given a dose of IV diuretics and tentatively scheduled for thoracentesis later this morning; overall, she states that she is feeling better and was able to tolerated some food intake yesterday; no further abdominal pain/discomfort noted; renal function/creatinine stable with slow improvement in sodium level. Exam Narrative: General: elderly but WD/WN female in NAD Heart: RRR, normal S1 and S2; no rub Lungs: coarse and decreased at bases Abdomen: soft, nontender, positive bowel sounds Extremities: no cyanosis or clubbing; 1+ edema Skin: no nodules Objective Data Vital Signs Vital Signs: Vital Signs Temp Pulse Resp BP Pulse Ox O2 Del Method O2 Flow Rate 11/21/24 08:39 68 11/21/24 08:30 68 15 96 Nasal Cannula 2 11/21/24 08:18 61 15 96 Nasal Cannula 2 11/21/24 08:00 52 L 11/21/24 04:00 60 11/21/24 03:59 97.7 F 62 18 172/55 H 95 11/21/24 00:00 52 L 11/20/24 21:09 96.8 F L 59 L 18 175/60 H 97 11/20/24 20:00 61 11/20/24 20:00 92 Nasal Cannula 2 11/20/24 18:11 67 11/20/24 17:31 97.6 F 69 18 163/50 H 96 11/20/24 16:00 69 11/20/24 15:01 71 153/45 H 96 11/20/24 13:45 97.1 F L 67 20 141/47 H 95 Intake/Output Intake/Output: Intake & Output 11/18/24 11/19/24 11/20/24 11/21/24 23:59 23:59 23:59 23:59 Intake Total 3822 833 5121 390 Output Total 580 1000 1000 400 Balance 690 -50 1040 -10 Meds/Results Medications: Active Medications Generic Name Dose Route Start Last Admin Trade Name Freq PRN Reason Stop Dose Admin Acetaminophen 650 mg 11/06/24 12:18 11/09/24 13:38 Acetaminophen 325 Mg Tablet PO 650 mg Q4H PRN Administration Headache Alteplase, Recombinant 2 mg 11/11/24 21:39 11/11/24 22:17 Alteplase 2 Mg Vial (Cathflo) IV PUSH 2 mg ONCE PRN Administration Line Occlusion Apixaban 2.5 mg 11/15/24 21:00 11/20/24 10:28 Apixaban 2.5 Mg Tablet PO 2.5 mg On Hold: 11/20/24 16:42 Q12HR KEVIN Administration Cyclosporine 1 drop 11/03/24 21:00 11/21/24 08:39 Cyclosporine 0.4 Ml Ophth Solution EACH EYE 1 drop Q12HR KEVIN Administration Metoprolol Tartrate 50 mg 11/08/24 09:00 11/21/24 08:39 Metoprolol Tartrate 50 Mg Tab PO 50 mg BID KEVIN Administration Sodium Chloride 10 ml 11/06/24 22:00 11/21/24 05:34 Central Line Flush IV PUSH 10 ml Q8HR KEVIN Administration Sodium Chloride 10 ml 11/06/24 14:29 Central Line Flush IV PUSH PRN PRN with TPN bag changes Sodium Chloride 20 ml 11/06/24 14:29 11/19/24 05:57 Central Line Flush IV PUSH 20 ml PRN PRN Administration after blood draws Sodium Chloride 1 spray 11/15/24 16:13 11/15/24 17:13 Saline 0.65% Rodrigo Soln 44 Ml Btl NASAL 1 spray Q6HR PRN Administration Congestion Sodium Chloride 1 gm 11/17/24 09:00 11/20/24 18:12 Sodium Chloride 1 Gm Tablet PO 1 gm BID KEVIN Administration Trazodone HCl 50 mg 11/03/24 21:00 11/20/24 21:22 Trazodone Hcl 50 Mg Tablet PO 50 mg QHS KEVIN Administration Vancomycin HCl 250 mg 11/16/24 06:00 11/21/24 05:35 Vancomycin Hcl 125 Mg Oral Capsule PO 11/30/24 00:01 250 mg Q6HR KEVIN Administration Vancomycin HCl 125 mg 11/30/24 06:00 Vancomycin Hcl 125 Mg Oral Capsule PO 12/07/24 00:01 Q6HR [facility] Vancomycin HCl 125 mg 12/07/24 09:00 Vancomycin Hcl 125 Mg Oral Capsule PO 12/13/24 21:01 Q12HR [facility] Vancomycin HCl 125 mg 12/14/24 09:00 Vancomycin Hcl 125 Mg Oral Capsule PO 12/27/24 09:01 DAILY [facility] Vancomycin HCl 125 mg 12/28/24 09:00 Vancomycin Hcl 125 Mg Oral Capsule PO 01/09/25 09:01 Q48HR [facility] Radiology Results: ITS Impressions Abdomen/Pelvis CT 11/04/24 12:36 IMPRESSION: 1. No evidence of bowel perforation. 2. Persistent severe pancolitis. 3. New small scattered ascites. 4. New small pleural effusions and significant bibasilar atelectasis. Renal Ultrasound 11/04/24 19:07 Impression: Simple appearing left renal cyst. No significant medical renal disease or obstruction Abdomen X-Ray 11/05/24 16:02 Impression: 1. Findings concerning for small bowel obstruction. CT is suggested Chest/Abdomen/Pelvis CT 11/05/24 17:04 IMPRESSION: 1. Diffuse colitis detailed above, correlate for underlying pseudomembranous colitis. No perforation or abscess. Follow-up recommended to assess. 2. CHF with superimposed probable bronchopneumonia. 3. Incidental findings above. Contrast-enhanced MRI recommended Head CT 11/06/24 12:46 Impression: 1.No acute intracranial abnormality. Thoracentesis Ultrasound 11/08/24 11:36 IMPRESSION: 1. Successful ultrasound-guided thoracentesis yielding 250 mL of yellow fluid. Chest X-Ray 11/19/24 13:33 IMPRESSION: 1. No change. Venous Doppler Study 11/19/24 18:32 Impression: Negative for DVT. Chest CT 11/20/24 16:02 IMPRESSION: 1. Increase in size of moderate sized bilateral posterior layering pleural effusions with secondary dependent atelectasis including complete collapse of the bilateral lower lobes. 2. Moderate amount of ascites in the visualized upper abdomen. 3. Mildly enlarged prevascular lymph node and the anterior mediastinum which is most likely reactive. Labs Labs: Laboratory Tests 11/21/24 04:13 11/21/24 04:13 Calcium 7.5 L Total Bilirubin 0.4 AST 22 ALT 13 Alkaline Phosphatase 49 Total Protein 4.8 L Albumin 2.7 L Microbiology 11/08/24 10:58 Thoracentesis Fluid Anaerobic Culture Extend Incubation - Preliminary 11/08/24 10:58 Thoracentesis Fluid Sterile Body Fluid Culture - Final
--- NOTE | 2024-11-21 10:48 | P.PNNP_ITS ---
Progress Note: A&P Assessment and Plan (1) Acute kidney injury: Code(s): N17.9 - Acute kidney failure, unspecified Status: Acute Assessment and Plan: * stable if not resolved * as noted by admission labs (creatinine of 3.03mg/dL) * creatinine normal 2 days prior to admission * baseline creatinine runs ~ 0.9 - 1.1mg/dL * suspect multifactorial etiology: * prerenal factors * infection/early sepsis (diverticulitis/colitis) * contrast exposure (CT of A/P on 11/01) * relative hypotension on presentation * JAMIE-I/diuretic use prior to admission * urinary retention(?) - difficulty urinating on admission so gamble catheter placed * other (?) * evaluation to date noted: * renal ultrasound without obstruction * urine electrolytes prerenal * urine eosinophils negative * CPK normal * mild proteinuria * holding lisinopril and spironolactone * initiated on [employer]/HD on 11/10 * last HD treatment on 11/14 * not opposed to removal of temporary HD catheter * follow trend of repeat labs and UOP (2) Clostridium difficile colitis: Code(s): A04.72 - Enterocolitis due to Clostridium difficile, not specified as recurrent Status: Acute Assessment and Plan: * slow improvement * demonstrated by positive C. diff toxin assay * also noted by CT imaging to date: * CT of C/A/P (11/05): Diffuse colitis detailed above, correlate for underlying pseudomembranous colitis. No perforation or abscess * CT of A/P (11/04): No evidence of bowel perforation; persistent severe pancolitis * CT of A/P (11/03): Interval progression of radiographically uncomplicated selby colitis which could be infectious, inflammatory or less likely ischemic in etiology * CT of A/P (11/01): Sigmoid diverticulitis. No perforation or abscess * complicated by diverticulitis * follow culture data * follow trend of WBC * on antibiotics * Infectious Disease following (3) Acute hypoxic respiratory failure: Code(s): J96.01 - Acute respiratory failure with hypoxia Status: Acute Assessment and Plan: * improvement noted * multifactorial etiology: * bilateral pleural effusions * atelectasis * fluid overload * atrial flutter with rapid ventricular response * pancolitis * possible pneumonia (?) * s/p thoracentesis (on 11/08) * Pulmonary recommendations noted * CT of chest (on 11/20) noted * noted plans for repeat thoracentesis * would not be opposed to further PRN diuretics... (4) Hyponatremia: Code(s): E87.1 - Hypo-osmolality and hyponatremia Status: Acute Assessment and Plan: * as noted on admission * possible chronic component -- sodium seems to run 129 - 136mmol/L since 2021 * presumably worsen by: * DONOVAN/ARF * prerenal factors * pleural effusions * possible pneumonia * urinary retention * mild improvement s/p intial IVF resuscitation * no improvement with repeat trial of IVFs * evaluation to date: * repeat urine electrolytes (11/17) non-prerenal * noted abnormal SPEP and UPEP -- checking immunofixation * TSH/thyroid studies noted * cortisol okay * follow trend of sodium (5) Metabolic acidosis: Code(s): E87.20 - Acidosis, unspecified Status: Acute Assessment and Plan: * resolved * due to DONOVAN/ARF and GI issues/symptoms * fluctuating lactic acid levels noted * follow repeat labs (6) Atrial flutter: Code(s): I48.92 - Unspecified atrial flutter Status: Acute Assessment and Plan: * as noted by events early on 11/05 * rate control strategy * Cardiology recommendations noted * on metoprolol * was on IV amiodarone (temporary measure) * Echo noted (on 11/07) * left ventricular systolic function is hyperdynamic, estimated at > 70% * left ventricular diastolic function is grade I diastolic dysfunction * no aortic valve stenosis * mild tricuspid valve regurgitation * on anticoagulation (7) Elevated troponin: Code(s): R79.89 - Other specified abnormal findings of blood chemistry Status: Acute Assessment and Plan: * due to DONOVAN versus atrial fluttter with RVR * trend noted * Cardiology comments noted (8) Hypertension: Code(s): I10 - Essential (primary) hypertension Status: Chronic Assessment and Plan: * reasonable control * holding JAMIE-I due to #1 * follow trend of hemodynamics Will continue to follow. L Subjective Date/time seen: 11/21/24 10:48 Interval history: Follow-up for acute kidney injury/acute renal failure. IVF discontinued yesterday due to findings of chest CT -- given a dose of IV diuretics and tentatively scheduled for thoracentesis later this morning; overall, she states that she is feeling better and was able to tolerated some food intake yesterday; no further abdominal pain/discomfort noted; renal function/creatinine stable with slow improvement in sodium level. Exam 2 Narrative: General: elderly but WD/WN female in NAD Heart: RRR, normal S1 and S2; no rub Lungs: coarse and decreased at bases Abdomen: soft, nontender, positive bowel sounds Extremities: no cyanosis or clubbing; 1+ edema Skin: no nodules Objective Data Vital Signs Vital Signs: Vital Signs Temp Pulse Resp BP Pulse Ox O2 Del Method O2 Flow Rate 11/21/24 08:39 68 11/21/24 08:30 68 15 96 Nasal Cannula 2 11/21/24 08:18 61 15 96 Nasal Cannula 2 11/21/24 08:00 52 L 11/21/24 04:00 60 11/21/24 03:59 97.7 F 62 18 172/55 H 95 11/21/24 00:00 52 L 11/20/24 21:09 96.8 F L 59 L 18 175/60 H 97 11/20/24 20:00 61 11/20/24 20:00 92 Nasal Cannula 2 11/20/24 18:11 67 11/20/24 17:31 97.6 F 69 18 163/50 H 96 11/20/24 16:00 69 11/20/24 15:01 71 153/45 H 96 11/20/24 13:45 97.1 F L 67 20 141/47 H 95 Intake/Output Intake/Output: Intake & Output 11/18/24 11/19/24 11/20/24 11/21/24 23:59 23:59 23:59 23:59 Intake Total 9485 369 7615 390 Output Total 580 1000 1000 400 Balance 690 -50 1040 -10 Meds/Results Medications: Active Medications Generic Name Dose Route Start Last Admin Trade Name Freq PRN Reason Stop Dose Admin Acetaminophen 650 mg 11/06/24 12:18 11/09/24 13:38 Acetaminophen 325 Mg Tablet PO 650 mg Q4H PRN Administration Headache Alteplase, Recombinant 2 mg 11/11/24 21:39 11/11/24 22:17 Alteplase 2 Mg Vial (Cathflo) IV PUSH 2 mg ONCE PRN Administration Line Occlusion Apixaban 2.5 mg 11/15/24 21:00 11/20/24 10:28 Apixaban 2.5 Mg Tablet PO 2.5 mg On Hold: 11/20/24 16:42 Q12HR KEVIN Administration Cyclosporine 1 drop 11/03/24 21:00 11/21/24 08:39 Cyclosporine 0.4 Ml Ophth Solution EACH EYE 1 drop Q12HR KEVIN Administration Metoprolol Tartrate 50 mg 11/08/24 09:00 11/21/24 08:39 Metoprolol Tartrate 50 Mg Tab PO 50 mg BID KEVIN Administration Sodium Chloride 10 ml 11/06/24 22:00 11/21/24 05:34 Central Line Flush IV PUSH 10 ml Q8HR KEVIN Administration Sodium Chloride 10 ml 11/06/24 14:29 Central Line Flush IV PUSH PRN PRN with TPN bag changes Sodium Chloride 20 ml 11/06/24 14:29 11/19/24 05:57 Central Line Flush IV PUSH 20 ml PRN PRN Administration after blood draws Sodium Chloride 1 spray 11/15/24 16:13 11/15/24 17:13 Saline 0.65% Rodrigo Soln 44 Ml Btl NASAL 1 spray Q6HR PRN Administration Congestion Sodium Chloride 1 gm 11/17/24 09:00 11/20/24 18:12 Sodium Chloride 1 Gm Tablet PO 1 gm BID KEVIN Administration Trazodone HCl 50 mg 11/03/24 21:00 11/20/24 21:22 Trazodone Hcl 50 Mg Tablet PO 50 mg QHS KEVIN Administration Vancomycin HCl 250 mg 11/16/24 06:00 11/21/24 05:35 Vancomycin Hcl 125 Mg Oral Capsule PO 11/30/24 00:01 250 mg Q6HR KEVIN Administration Vancomycin HCl 125 mg 11/30/24 06:00 Vancomycin Hcl 125 Mg Oral Capsule PO 12/07/24 00:01 Q6HR [facility] Vancomycin HCl 125 mg 12/07/24 09:00 Vancomycin Hcl 125 Mg Oral Capsule PO 12/13/24 21:01 Q12HR [facility] Vancomycin HCl 125 mg 12/14/24 09:00 Vancomycin Hcl 125 Mg Oral Capsule PO 12/27/24 09:01 DAILY [facility] Vancomycin HCl 125 mg 12/28/24 09:00 Vancomycin Hcl 125 Mg Oral Capsule PO 01/09/25 09:01 Q48HR [facility] Radiology Results: ITS Impressions Abdomen/Pelvis CT 11/04/24 12:36 IMPRESSION: 1. No evidence of bowel perforation. 2. Persistent severe pancolitis. 3. New small scattered ascites. 4. New small pleural effusions and significant bibasilar atelectasis. Renal Ultrasound 11/04/24 19:07 Impression: Simple appearing left renal cyst. No significant medical renal disease or obstruction Abdomen X-Ray 11/05/24 16:02 Impression: 1. Findings concerning for small bowel obstruction. CT is suggested Chest/Abdomen/Pelvis CT 11/05/24 17:04 IMPRESSION: 1. Diffuse colitis detailed above, correlate for underlying pseudomembranous colitis. No perforation or abscess. Follow-up recommended to assess. 2. CHF with superimposed probable bronchopneumonia. 3. Incidental findings above. Contrast-enhanced MRI recommended Head CT 11/06/24 12:46 Impression: 1.No acute intracranial abnormality. Thoracentesis Ultrasound 11/08/24 11:36 IMPRESSION: 1. Successful ultrasound-guided thoracentesis yielding 250 mL of yellow fluid. Chest X-Ray 11/19/24 13:33 IMPRESSION: 1. No change. Venous Doppler Study 11/19/24 18:32 Impression: Negative for DVT. Chest CT 11/20/24 16:02 IMPRESSION: 1. Increase in size of moderate sized bilateral posterior layering pleural effusions with secondary dependent atelectasis including complete collapse of the bilateral lower lobes. 2. Moderate amount of ascites in the visualized upper abdomen. 3. Mildly enlarged prevascular lymph node and the anterior mediastinum which is most likely reactive. Labs Labs: Laboratory Tests 11/21/24 04:13 11/21/24 04:13 Calcium 7.5 L Total Bilirubin 0.4 AST 22 ALT 13 Alkaline Phosphatase 49 Total Protein 4.8 L Albumin 2.7 L Microbiology 11/08/24 10:58 Thoracentesis Fluid Anaerobic Culture Extend Incubation - Preliminary 11/08/24 10:58 Thoracentesis Fluid Sterile Body Fluid Culture - Final
[2024-11-21 10:57] LABS: INR 1.2; Prothrombin Time 15.1 Seconds (11.1-14.7)
[2024-11-21 10:58] LABS: Partial Thromboplastin Time 23.6 Seconds (22.3-36.8)
--- NOTE | 2024-11-21 11:21 | P.PNINF_ITS ---
Progress Note: A&P Assessment and Plan (1) Clostridium difficile colitis: Code(s): A04.72 - Enterocolitis due to Clostridium difficile, not specified as recurrent Status: Acute Assessment and Plan: -Severe C.difficile colitis. Although significant improvement had been seen up until today, frequent large volume watery diarrhea has recurred . (2) Leukocytosis: Code(s): D72.829 - Elevated white blood cell count, unspecified Status: Acute Assessment and Plan: -Reactive from C.difficile infection -now resolved. (3) Diverticulitis large intestine: Code(s): K57.32 - Diverticulitis of large intestine without perforation or abscess without bleeding Status: Acute Assessment and Plan: -Diagnosed one week prior to admission -S/P Augmentin x 5 days prior to admission -Discontinued Zosyn on 11/10/24 as patient has completed 8 day course for diverticulitis (4) Colitis: Code(s): K52.9 - Noninfective gastroenteritis and colitis, unspecified Status: Acute Assessment and Plan: -Pancolitis noted on CT -Due to C.difficile colitis (5) Acute kidney injury: Code(s): N17.9 - Acute kidney failure, unspecified Status: Acute Assessment and Plan: -Management as per Nephrology service -Plans for short-term HD (6) Pleural effusion: Code(s): J90 - Pleural effusion, not elsewhere classified Status: Acute Assessment and Plan: -S/P Left thoracentesis 11/08/24 -Pleural fluid studies not consistent with empyema -Pleural fluid cultures negative for growth -Current CT scan shows persistence of bilateral posterior layering pleural effusions with complete collapse of bilateral lower lobes. -Management as per Pulmonary service Plan -- With recurrence of diarrhea will re-add IV Flagyl to current q.6 hours oral vancomycin dosing. Will also delay transition toward taper until further improvement in diarrhea seen. -- Currently on Oral vancomycin 250 mg Q 6 hours, changed on 11/16/2024. Once diarrhea again responds to treatment would proceed with q.8 hour dosing of oral vancomycin x7 days, then twice daily dosing x7 days, then daily dosing x7 days, then every other day dosing for 2 additional weeks. -- Monitor abdominal exam. -- continue to monitor stool output. Patient was seen via video telehealth consultation with the assistance of staff. Chart, data, and patient independently reviewed. Patient was located at [facility] while I was located in my [place] office. Received verbal consent from patient. Subjective Date/time seen: 11/21/24 11:21 Interval history: 11/21/2024: Afebrile, vital signs stable, and on 2 L per nasal cannula. Leukocytosis now resolved. WBC 10.0. CT of chest shows increase in size a moderate-sized bilateral posterior layering pleural effusion with secondary dependent atelectasis including complete collapse of the bilateral lower Lobes, moderate amount of ascites in the upper abdomen, mildly enlarged prevascular lymph node in the anterior mediastinum which is most likely reactive. States diarrhea has recurred today and this was verified by nursing. Review of Systems Review of Systems: All systems reviewed & are unremarkable except as noted in HPI and below Exam Narrative: In bed. No respiratory distress. No accessory muscles for breathing. No rash. No IV phlebitis. Today complaining of recurrence of diarrhea. Objective Data Vital Signs Vital Signs: Vital Signs - 24 hr 11/20/24 12:00 11/20/24 13:45 11/20/24 15:01 Temperature 97.1 F L Pulse Rate 81 67 71 Respiratory Rate 20 Blood Pressure 141/47 H 153/45 H Pulse Oximetry 95 96 Oxygen Delivery Oxygen Flow Rate 11/20/24 16:00 11/20/24 17:31 11/20/24 18:11 Temperature 97.6 F Pulse Rate 69 69 67 Respiratory Rate 18 Blood Pressure 163/50 H Pulse Oximetry 96 Oxygen Delivery Oxygen Flow Rate 11/20/24 20:00 11/20/24 20:00 11/20/24 21:09 Temperature 96.8 F L Pulse Rate 61 59 L Respiratory Rate 18 Blood Pressure 175/60 H Pulse Oximetry 92 97 Oxygen Delivery Nasal Cannula Oxygen Flow Rate 2 11/21/24 00:00 11/21/24 03:59 11/21/24 04:00 Temperature 97.7 F Pulse Rate 52 L 62 60 Respiratory Rate 18 Blood Pressure 172/55 H Pulse Oximetry 95 Oxygen Delivery Oxygen Flow Rate 11/21/24 08:00 11/21/24 08:18 11/21/24 08:39 Temperature Pulse Rate 52 L 61 68 Respiratory Rate 15 Blood Pressure Pulse Oximetry 96 Oxygen Delivery Nasal Cannula Oxygen Flow Rate 2 Intake/Output Intake/Output: Intake & Output 10/04/11/19/24 11/20/24 11/21/24 23:59 23:59 23:59 23:59 Intake Total 9004 824 5450 390 Output Total 580 1000 1000 400 Balance 690 -50 1040 -10 Meds/Results Medications: Active Medications Generic Name Dose Route Start Last Admin Trade Name Freq PRN Reason Stop Dose Admin Acetaminophen 650 mg 11/06/24 12:18 11/09/24 13:38 Acetaminophen 325 Mg Tablet PO 650 mg Q4H PRN Administration Headache Alteplase, Recombinant 2 mg 11/11/24 21:39 11/11/24 22:17 Alteplase 2 Mg Vial (Cathflo) IV PUSH 2 mg ONCE PRN Administration Line Occlusion Apixaban 2.5 mg 11/15/24 21:00 11/20/24 10:28 Apixaban 2.5 Mg Tablet PO 2.5 mg On Hold: 11/20/24 16:42 Q12HR KEVIN Administration Cyclosporine 1 drop 11/03/24 21:00 11/21/24 08:39 Cyclosporine 0.4 Ml Ophth Solution EACH EYE 1 drop Q12HR KEVIN Administration Metoprolol Tartrate 50 mg 11/08/24 09:00 11/21/24 08:39 Metoprolol Tartrate 50 Mg Tab PO 50 mg BID KEVIN Administration Sodium Chloride 10 ml 11/06/24 22:00 11/21/24 05:34 Central Line Flush IV PUSH 10 ml Q8HR KEVIN Administration Sodium Chloride 10 ml 11/06/24 14:29 Central Line Flush IV PUSH PRN PRN with TPN bag changes Sodium Chloride 20 ml 11/06/24 14:29 11/19/24 05:57 Central Line Flush IV PUSH 20 ml PRN PRN Administration after blood draws Sodium Chloride 1 spray 11/15/24 16:13 11/15/24 17:13 Saline 0.65% Rodrigo Soln 44 Ml Btl NASAL 1 spray Q6HR PRN Administration Congestion Sodium Chloride 1 gm 11/17/24 09:00 11/20/24 18:12 Sodium Chloride 1 Gm Tablet PO 1 gm BID KEVIN Administration Trazodone HCl 50 mg 11/03/24 21:00 11/20/24 21:22 Trazodone Hcl 50 Mg Tablet PO 50 mg QHS KEVIN Administration Vancomycin HCl 250 mg 11/16/24 06:00 11/21/24 05:35 Vancomycin Hcl 125 Mg Oral Capsule PO 11/30/24 00:01 250 mg Q6HR [facility] Administration Vancomycin HCl 125 mg 11/30/24 06:00 Vancomycin Hcl 125 Mg Oral Capsule PO 12/07/24 00:01 Q6HR [facility] Vancomycin HCl 125 mg 12/07/24 09:00 Vancomycin Hcl 125 Mg Oral Capsule PO 12/13/24 21:01 Q12HR [facility] Vancomycin HCl 125 mg 12/14/24 09:00 Vancomycin Hcl 125 Mg Oral Capsule PO 12/27/24 09:01 DAILY KEVIN Vancomycin HCl 125 mg 12/28/24 09:00 Vancomycin Hcl 125 Mg Oral Capsule PO 01/09/25 09:01 Q48HR [facility] Radiology Results: ITS Impressions Abdomen/Pelvis CT 11/04/24 12:36 IMPRESSION: 1. No evidence of bowel perforation. 2. Persistent severe pancolitis. 3. New small scattered ascites. 4. New small pleural effusions and significant bibasilar atelectasis. Renal Ultrasound 11/04/24 19:07 Impression: Simple appearing left renal cyst. No significant medical renal disease or obstruction Abdomen X-Ray 11/05/24 16:02 Impression: 1. Findings concerning for small bowel obstruction. CT is suggested Chest/Abdomen/Pelvis CT 11/05/24 17:04 IMPRESSION: 1. Diffuse colitis detailed above, correlate for underlying pseudomembranous colitis. No perforation or abscess. Follow-up recommended to assess. 2. CHF with superimposed probable bronchopneumonia. 3. Incidental findings above. Contrast-enhanced MRI recommended Head CT 11/06/24 12:46 Impression: 1.No acute intracranial abnormality. Thoracentesis Ultrasound 11/08/24 11:36 IMPRESSION: 1. Successful ultrasound-guided thoracentesis yielding 250 mL of yellow fluid. Chest X-Ray 11/19/24 13:33 IMPRESSION: 1. No change. Venous Doppler Study 11/19/24 18:32 Impression: Negative for DVT. Chest CT 11/20/24 16:02 IMPRESSION: 1. Increase in size of moderate sized bilateral posterior layering pleural effusions with secondary dependent atelectasis including complete collapse of the bilateral lower lobes. 2. Moderate amount of ascites in the visualized upper abdomen. 3. Mildly enlarged prevascular lymph node and the anterior mediastinum which is most likely reactive. Labs Labs: Laboratory Results - last 24 hr 11/20/24 11/20/2411/21/25 23:32 23:32 04:13 WBC 10.0 RBC 2.90 L Hgb 9.0 L Hct 27.1 L MCV 93.4 MCH 31.0 MCHC 33.2 RDW 14.3 Plt Count 236 MPV 9.5 Immature Gran % (Auto) 1.4 H Neut % (Auto) 79.6 H Lymph % (Auto) 8.9 L [place] % (Auto) 9.0 H Eos % (Auto) 0.7 Baso % (Auto) 0.4 Lymph # (Auto) 0.89 L [place] # (Auto) 0.9 H Eos # (Auto) 0.1 Baso # (Auto) 0.0 Abs Immat Gran (auto) 0.14 H Absolute Neuts (auto) 8.0 H Absolute Nucleated RBC 0.000 Nucleated RBC % 0.0 Sodium 124 L Potassium 3.6 Chloride 97 L Carbon Dioxide 23 Anion Gap 4 BUN 31 H Creatinine 0.98 Estim Creat Clear Calc 44 Estimated GFR 55 L Glucose 111 H Calcium 7.5 L Iron TIBC % Saturation Ferritin Total Bilirubin 0.4 AST 22 ALT 13 Alkaline Phosphatase 49 Total Protein 4.8 L Albumin 2.7 L U Random Total Protein 12 Ur Random Sodium 94 Ur Random Urea 152 Urine Creatinine 10.3 10.7 Protein/Creat Ratio 2 1.17 H 11/21/24 08:38 WBC RBC Hgb Hct MCV MCH MCHC RDW Plt Count MPV Immature Gran % (Auto) Neut % (Auto) Lymph % (Auto) [place] % (Auto) Eos % (Auto) Baso % (Auto) Lymph # (Auto) [place] # (Auto) Eos # (Auto) Baso # (Auto) Abs Immat Gran (auto) Absolute Neuts (auto) Absolute Nucleated RBC Nucleated RBC % Sodium Potassium Chloride Carbon Dioxide Anion Gap BUN Creatinine Estim Creat Clear Calc Estimated GFR Glucose Calcium Iron 17 L TIBC 180 L % Saturation 9 L Ferritin 162.00 Total Bilirubin AST ALT Alkaline Phosphatase Total Protein Albumin U Random Total Protein Ur Random Sodium Ur Random Urea Urine Creatinine Protein/Creat Ratio 2
[2024-11-21 13:09] LABS: Immunoglobulin A, Qn 119 mg/dL (64-422); Immunoglobulin G, Qn 578 mg/dL (586-1602); Immunoglobulin M, Qn 57 mg/dL (26-217)
--- NOTE | 2024-11-21 14:20 | PC.NURSE ---
pt to radiology via bed
[2024-11-21] MEDS: metroNIDAZOLE 500 MG/ISO 100ML 500 MG/100 ML BAG 100 MG IVPB ×2 (15:24→21:15)
[2024-11-21] MEDS: SODIUM CHLORIDE 1 GM TABLET PO (17:53)
[2024-11-22] VITALS (13 sets, daily range): BP systolic 142–161; BP diastolic 48–61; PULSE 53–70; RESP 18–20; TEMP 36.4–36.8; O2SAT 92–95
[2024-11-22] MEDS: metroNIDAZOLE 500 MG/ISO 100ML 500 MG/100 ML BAG 100 MG IVPB ×3 (05:30→21:21)
[2024-11-22] MEDS: CENTRAL LINE FLUSH 10 ML IV PUSH ×3 (05:31→21:22)
[2024-11-22] MEDS: VANCOMYCIN HCL 125 MG ORAL CAPSULE 250 MG PO ×2 (05:31→12:28)
[2024-11-22 05:49] LABS: Hematocrit 27.6 % (37.0-47.0); Hemoglobin 9.1 g/dL (12.0-15.0); Immature Granulocyte Percent A 1.2 % (0-0.5); Lymphocytes Absolute Auto 0.76 K/mm3 (0.9-3.2); Mean Corpuscular HGB Conc 33.0 g/dl (32-36); Mean Corpuscular Hemoglobin 30.5 pg (26-34); Mean Corpuscular Volume 92.6 fl (80-100); Nucleated Red Blood Cells Absolute Auto 0.000 K/mm3 (0.0-0.012); Nucleated Red Blood Cells Perc 0.0 % (0.0-0.2); Platelet Count Result 277 k/mm3 (150-375); Red Blood Count 2.98 M/mm3 (4.2-5.4); White Blood Count 10.0 K/mm3 (4.5-10.0)
[2024-11-22 05:55] LABS: Alanine Aminotransferase 13 U/L (6-35); Albumin Level 2.5 g/dL (3.5-5.1); Alkaline Phosphatase 51 U/L (38-126); Anion Gap 5 mmol/L (4-12); Aspartate Amino Transferase 21 U/L (14-36); Bilirubin,Total 0.4 mg/dL (0.2-1.3); Blood Urea Nitrogen 29 mg/dL (7-17); Calcium 7.7 mg/dL (8.4-10.2); Carbon Dioxide 22 mmol/L (22-30); Chloride 100 mmol/L (98-107); Estimated CRCL calculation 44 ml/min; Estimated Glomerular Filt Rate 56; Glucose 110 mg/dL (65-110); Potassium 3.6 mmol/L (3.4-5.0); Sodium 127 mmol/L (137-145); Total Protein 4.7 g/dL (6.3-8.2)
[2024-11-22] MEDS: cycloSPORINE 0.4 ML OPHTH SOLUTION 1 DROP EACH EYE ×2 (09:01→21:25)
[2024-11-22] MEDS: METOPROLOL TARTRATE 50 MG TAB PO ×2 (09:01→17:41)
--- NOTE | 2024-11-22 13:53 | P.PNNP_ITS ---
Progress Note: A&P Assessment and Plan (1) Acute kidney injury: Code(s): N17.9 - Acute kidney failure, unspecified Status: Acute Assessment and Plan: * stable if not resolved * as noted by admission labs (creatinine of 3.03mg/dL) * creatinine normal 2 days prior to admission * baseline creatinine runs ~ 0.9 - 1.1mg/dL * suspect multifactorial etiology: * prerenal factors * infection/early sepsis (diverticulitis/colitis) * contrast exposure (CT of A/P on 11/01) * relative hypotension on presentation * JAMIE-I/diuretic use prior to admission * urinary retention(?) - difficulty urinating on admission so gamble catheter placed * other (?) * evaluation to date noted: * renal ultrasound without obstruction * urine electrolytes prerenal * urine eosinophils negative * CPK normal * mild proteinuria * holding lisinopril and spironolactone * 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 diff toxin assay * also noted by CT imaging to date: * CT of C/A/P (11/05): Diffuse colitis detailed above, correlate for underlying pseudomembranous colitis. No perforation or abscess * CT of A/P (11/04): No evidence of bowel perforation; persistent severe pancolitis * CT of A/P (11/03): Interval progression of radiographically uncomplicated selby colitis which could be infectious, inflammatory or less likely ischemic in etiology * CT of A/P (11/01): Sigmoid diverticulitis. No perforation or abscess * complicated by diverticulitis * follow culture data * follow trend of WBC * on antibiotics * Infectious Disease following (3) Acute hypoxic respiratory failure: Code(s): J96.01 - Acute respiratory failure with hypoxia Status: Acute Assessment and Plan: * improvement noted * multifactorial etiology: * bilateral pleural effusions * atelectasis * fluid overload * atrial flutter with rapid ventricular response * pancolitis * possible pneumonia (?) * s/p thoracentesis (on 11/08) * Pulmonary recommendations noted * CT of chest (on 11/20) noted * s/p repeat thoracentesis on 11/21 * would not be opposed to further PRN diuretics... (4) Hyponatremia: Code(s): E87.1 - Hypo-osmolality and hyponatremia Status: Acute Assessment and Plan: * as noted on admission * possible chronic component -- sodium seems to run 129 - 136mmol/L since 2021 * presumably worsen by: * DONOVAN/ARF * prerenal factors * pleural effusions * possible pneumonia * urinary retention * mild improvement s/p intial IVF resuscitation * no improvement with repeat trial of IVFs * evaluation to date: * repeat urine electrolytes (11/17) non-prerenal * noted abnormal SPEP and UPEP -- checking immunofixation * TSH/thyroid studies noted * cortisol okay * follow trend of sodium (5) Metabolic acidosis: Code(s): E87.20 - Acidosis, unspecified Status: Acute Assessment and Plan: * resolved * due to DONOVAN/ARF and GI issues/symptoms * fluctuating lactic acid levels noted * follow repeat labs (6) Atrial flutter: Code(s): I48.92 - Unspecified atrial flutter Status: Acute Assessment and Plan: * as noted by events early on 11/05 * rate control strategy * Cardiology recommendations noted * on metoprolol * was on IV amiodarone (temporary measure) * Echo noted (on 11/07) * left ventricular systolic function is hyperdynamic, estimated at > 70% * left ventricular diastolic function is grade I diastolic dysfunction * no aortic valve stenosis * mild tricuspid valve regurgitation * on anticoagulation (7) Elevated troponin: Code(s): R79.89 - Other specified abnormal findings of blood chemistry Status: Acute Assessment and Plan: * due to DONOVAN versus atrial fluttter with RVR * trend noted * Cardiology comments noted (8) Hypertension: Code(s): I10 - Essential (primary) hypertension Status: Chronic Assessment and Plan: * reasonable control * holding JAMIE-I due to #1 * follow trend of hemodynamics Will continue to follow. L Subjective Date/time seen: 11/22/24 13:53 Interval history: Follow-up for acute kidney injury/acute renal failure. S/P left thoracentesis yesterday afternoon and tolerated the procedure reasonably well; renal function/creatinine remains stable reasonable urine output with noted improvement in sodium level; able to eat a bit more in the last 24 hours; no apparent distress noted. Exam 2 Narrative: General: elderly but WD/WN female in NAD Heart: RRR, normal S1 and S2; no rub Lungs: coarse and decreased at bases Abdomen: soft, nontender, positive bowel sounds Extremities: no cyanosis or clubbing; 1+ edema Skin: warm and dry Objective Data Vital Signs Vital Signs: Vital Signs Temp Pulse Resp BP Pulse Ox O2 Del Method FiO2 11/22/24 13:01 98.3 F 66 20 154/50 H 94 11/22/24 09:01 70 11/22/24 09:00 95 Room Air 11/22/24 08:00 61 11/22/24 07:39 95 Room Air 11/22/24 04:00 60 11/22/24 03:35 97.6 F 58 L 18 142/61 H 92 11/22/24 00:00 53 L 11/21/24 20:27 97.6 F 57 L 18 145/46 H 93 11/21/24 20:12 62 20 90 Room Air 21 11/21/24 20:00 60 11/21/24 20:00 Room Air Intake/Output Intake/Output: Intake & Output 11/19/24 11/20/24 11/21/24 11/22/24 23:59 23:59 23:59 23:59 Intake Total 950 2040 1440 1630 Output Total 1000 1000 1900 3 Balance -50 1040 -460 1627 Meds/Results Medications: Active Medications Generic Name Dose Route Start Last Admin Trade Name Freq PRN Reason Stop Dose Admin Acetaminophen 650 mg 11/06/24 12:18 11/09/24 13:38 Acetaminophen 325 Mg Tablet PO 650 mg Q4H PRN Administration Headache Alteplase, Recombinant 2 mg 11/11/24 21:39 11/11/24 22:17 Alteplase 2 Mg Vial (Cathflo) IV PUSH 2 mg ONCE PRN Administration Line Occlusion Apixaban 2.5 mg 11/15/24 21:00 11/20/24 10:28 Apixaban 2.5 Mg Tablet PO 2.5 mg On Hold: 11/20/24 16:42 Q12HR KEVIN Administration Cyclosporine 1 drop 11/03/24 21:00 11/22/24 09:01 Cyclosporine 0.4 Ml Ophth Solution EACH EYE 1 drop Q12HR KEVIN Administration Metronidazole 500 mg in 100 mls @ 100 mls/hr 11/21/24 14:45 11/22/24 14:30 Flagyl 500 Mg/Iso Soln 100 Ml IVPB Infused Q8HR KEVIN Infusion Metoprolol Tartrate 50 mg 11/08/24 09:00 11/22/24 17:41 Metoprolol Tartrate 50 Mg Tab PO 50 mg BID KEVIN Administration Sodium Chloride 10 ml 11/06/24 22:00 11/22/24 13:27 Central Line Flush IV PUSH 10 ml Q8HR KEVIN Administration Sodium Chloride 10 ml 11/06/24 14:29 Central Line Flush IV PUSH PRN PRN with TPN bag changes Sodium Chloride 20 ml 11/06/24 14:29 11/19/24 05:57 Central Line Flush IV PUSH 20 ml PRN PRN Administration after blood draws Sodium Chloride 1 spray 11/15/24 16:13 11/15/24 17:13 Saline 0.65% Rodrigo Soln 44 Ml Btl NASAL 1 spray Q6HR PRN Administration Congestion Sodium Chloride 1 gm 11/17/24 09:00 11/21/24 17:53 Sodium Chloride 1 Gm Tablet PO 1 gm On Hold: 11/22/24 06:20 BID KEVIN Administration Trazodone HCl 50 mg 11/03/24 21:00 11/21/24 21:16 Trazodone Hcl 50 Mg Tablet PO 50 mg QHS KEVIN Administration Vancomycin HCl 500 mg 11/22/24 18:00 11/22/24 17:41 Vancomycin Hcl 125 Mg Oral Capsule PO 500 mg Q6HR KEVIN Administration Radiology Results: ITS Impressions Abdomen/Pelvis CT 11/04/24 12:36 IMPRESSION: 1. No evidence of bowel perforation. 2. Persistent severe pancolitis. 3. New small scattered ascites. 4. New small pleural effusions and significant bibasilar atelectasis. Renal Ultrasound 11/04/24 19:07 Impression: Simple appearing left renal cyst. No significant medical renal disease or obstruction Abdomen X-Ray 11/05/24 16:02 Impression: 1. Findings concerning for small bowel obstruction. CT is suggested Chest/Abdomen/Pelvis CT 11/05/24 17:04 IMPRESSION: 1. Diffuse colitis detailed above, correlate for underlying pseudomembranous colitis. No perforation or abscess. Follow-up recommended to assess. 2. CHF with superimposed probable bronchopneumonia. 3. Incidental findings above. Contrast-enhanced MRI recommended Head CT 11/06/24 12:46 Impression: 1.No acute intracranial abnormality. Venous Doppler Study 11/19/24 18:32 Impression: Negative for DVT. Chest CT 11/20/24 16:02 IMPRESSION: 1. Increase in size of moderate sized bilateral posterior layering pleural effusions with secondary dependent atelectasis including complete collapse of the bilateral lower lobes. 2. Moderate amount of ascites in the visualized upper abdomen. 3. Mildly enlarged prevascular lymph node and the anterior mediastinum which is most likely reactive. Chest X-Ray 11/21/24 15:16 Impression: Right pneumonia with effusion. No pneumothorax identified. Thoracentesis Ultrasound 11/21/24 15:20 IMPRESSION: 1. Successful ultrasound-guided thoracentesis yielding 500 mL of yellowish fluid. Labs Labs: Laboratory Tests 11/22/24 05:36 11/22/24 05:36 Calcium 7.7 L Total Bilirubin 0.4 AST 21 ALT 13 Alkaline Phosphatase 51 Total Protein 4.7 L Albumin 2.5 L
--- NOTE | 2024-11-22 13:53 | PM.PNNEP ---
Progress Note: A&P Assessment and Plan (1) Acute kidney injury: Code(s): N17.9 - Acute kidney failure, unspecified Status: Acute Assessment and Plan: stable if not resolved as noted by admission labs (creatinine of 3.03mg/dL) creatinine normal 2 days prior to admission baseline creatinine runs ~ 0.9 - 1.1mg/dL suspect multifactorial etiology: prerenal factors infection/early sepsis (diverticulitis/colitis) contrast exposure (CT of A/P on 11/01) relative hypotension on presentation JAMIE-I/diuretic use prior to admission urinary retention(?) - difficulty urinating on admission so gamble catheter placed other (?) evaluation to date noted: renal ultrasound without obstruction urine electrolytes prerenal urine eosinophils negative CPK normal mild proteinuria holding lisinopril and spironolactone 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 diff toxin assay also noted by CT imaging to date: CT of C/A/P (11/05): Diffuse colitis detailed above, correlate for underlying pseudomembranous colitis. No perforation or abscess CT of A/P (11/04): No evidence of bowel perforation; persistent severe pancolitis CT of A/P (11/03): Interval progression of radiographically uncomplicated selby colitis which could be infectious, inflammatory or less likely ischemic in etiology CT of A/P (11/01): Sigmoid diverticulitis. No perforation or abscess complicated by diverticulitis follow culture data follow trend of WBC on antibiotics Infectious Disease following (3) Acute hypoxic respiratory failure: Code(s): J96.01 - Acute respiratory failure with hypoxia Status: Acute Assessment and Plan: improvement noted multifactorial etiology: bilateral pleural effusions atelectasis fluid overload atrial flutter with rapid ventricular response pancolitis possible pneumonia (?) s/p thoracentesis (on 11/08) Pulmonary recommendations noted CT of chest (on 11/20) noted s/p repeat thoracentesis on 11/21 would not be opposed to further PRN diuretics... (4) Hyponatremia: Code(s): E87.1 - Hypo-osmolality and hyponatremia Status: Acute Assessment and Plan: as noted on admission possible chronic component -- sodium seems to run 129 - 136mmol/L since 2021 presumably worsen by: DONOVAN/ARF prerenal factors pleural effusions possible pneumonia urinary retention mild improvement s/p intial IVF resuscitation no improvement with repeat trial of IVFs evaluation to date: repeat urine electrolytes (11/17) non-prerenal noted abnormal SPEP and UPEP -- checking immunofixation TSH/thyroid studies noted cortisol okay follow trend of sodium (5) Metabolic acidosis: Code(s): E87.20 - Acidosis, unspecified Status: Acute Assessment and Plan: resolved due to DONOVAN/ARF and GI issues/symptoms fluctuating lactic acid levels noted follow repeat labs (6) Atrial flutter: Code(s): I48.92 - Unspecified atrial flutter Status: Acute Assessment and Plan: as noted by events early on 11/05 rate control strategy Cardiology recommendations noted on metoprolol was on IV amiodarone (temporary measure) Echo noted (on 11/07) left ventricular systolic function is hyperdynamic, estimated at > 70% left ventricular diastolic function is grade I diastolic dysfunction no aortic valve stenosis mild tricuspid valve regurgitation on anticoagulation (7) Elevated troponin: Code(s): R79.89 - Other specified abnormal findings of blood chemistry Status: Acute Assessment and Plan: due to DONOVAN versus atrial fluttter with RVR trend noted Cardiology comments noted (8) Hypertension: Code(s): I10 - Essential (primary) hypertension Status: Chronic Assessment and Plan: reasonable control holding JAMIE-I due to #1 follow trend of hemodynamics Will continue to follow. Subjective Date/time seen: 11/22/24 13:53 Interval history: Follow-up for acute kidney injury/acute renal failure. S/P left thoracentesis yesterday afternoon and tolerated the procedure reasonably well; renal function/creatinine remains stable reasonable urine output with noted improvement in sodium level; able to eat a bit more in the last 24 hours; no apparent distress noted. Exam Narrative: General: elderly but WD/WN female in NAD Heart: RRR, normal S1 and S2; no rub Lungs: coarse and decreased at bases Abdomen: soft, nontender, positive bowel sounds Extremities: no cyanosis or clubbing; 1+ edema Skin: warm and dry Objective Data Vital Signs Vital Signs: Vital Signs Temp Pulse Resp BP Pulse Ox O2 Del Method FiO2 11/22/24 13:01 98.3 F 66 20 154/50 H 94 11/22/24 09:01 70 11/22/24 09:00 95 Room Air 11/22/24 08:00 61 11/22/24 07:39 95 Room Air 11/22/24 04:00 60 11/22/24 03:35 97.6 F 58 L 18 142/61 H 92 11/22/24 00:00 53 L 11/21/24 20:27 97.6 F 57 L 18 145/46 H 93 11/21/24 20:12 62 20 90 Room Air 21 11/21/24 20:00 60 11/21/24 20:00 Room Air Intake/Output Intake/Output: Intake & Output 11/19/24 11/20/24 11/21/24 11/22/24 23:59 23:59 23:59 23:59 Intake Total 950 2040 1440 1630 Output Total 1000 1000 1900 3 Balance -50 1040 -460 1627 Meds/Results Medications: Active Medications Generic Name Dose Route Start Last Admin Trade Name Freq PRN Reason Stop Dose Admin Acetaminophen 650 mg 11/06/24 12:18 11/09/24 13:38 Acetaminophen 325 Mg Tablet PO 650 mg Q4H PRN Administration Headache Alteplase, Recombinant 2 mg 11/11/24 21:39 11/11/24 22:17 Alteplase 2 Mg Vial (Cathflo) IV PUSH 2 mg ONCE PRN Administration Line Occlusion Apixaban 2.5 mg 11/15/24 21:00 11/20/24 10:28 Apixaban 2.5 Mg Tablet PO 2.5 mg On Hold: 11/20/24 16:42 Q12HR KEVIN Administration Cyclosporine 1 drop 11/03/24 21:00 11/22/24 09:01 Cyclosporine 0.4 Ml Ophth Solution EACH EYE 1 drop Q12HR KEVIN Administration Metronidazole 500 mg in 100 mls @ 100 mls/hr 11/21/24 14:45 11/22/24 14:30 Flagyl 500 Mg/Iso Soln 100 Ml IVPB Infused Q8HR KEVIN Infusion Metoprolol Tartrate 50 mg 11/08/24 09:00 11/22/24 17:41 Metoprolol Tartrate 50 Mg Tab PO 50 mg BID KEVIN Administration Sodium Chloride 10 ml 11/06/24 22:00 11/22/24 13:27 Central Line Flush IV PUSH 10 ml Q8HR KEVIN Administration Sodium Chloride 10 ml 11/06/24 14:29 Central Line Flush IV PUSH PRN PRN with TPN bag changes Sodium Chloride 20 ml 11/06/24 14:29 11/19/24 05:57 Central Line Flush IV PUSH 20 ml PRN PRN Administration after blood draws Sodium Chloride 1 spray 11/15/24 16:13 11/15/24 17:13 Saline 0.65% Rodrigo Soln 44 Ml Btl NASAL 1 spray Q6HR PRN Administration Congestion Sodium Chloride 1 gm 11/17/24 09:00 11/21/24 17:53 Sodium Chloride 1 Gm Tablet PO 1 gm On Hold: 11/22/24 06:20 BID KEVIN Administration Trazodone HCl 50 mg 11/03/24 21:00 11/21/24 21:16 Trazodone Hcl 50 Mg Tablet PO 50 mg QHS KEVIN Administration Vancomycin HCl 500 mg 11/22/24 18:00 11/22/24 17:41 Vancomycin Hcl 125 Mg Oral Capsule PO 500 mg Q6HR KEVIN Administration Radiology Results: ITS Impressions Abdomen/Pelvis CT 11/04/24 12:36 IMPRESSION: 1. No evidence of bowel perforation. 2. Persistent severe pancolitis. 3. New small scattered ascites. 4. New small pleural effusions and significant bibasilar atelectasis. Renal Ultrasound 11/04/24 19:07 Impression: Simple appearing left renal cyst. No significant medical renal disease or obstruction Abdomen X-Ray 11/05/24 16:02 Impression: 1. Findings concerning for small bowel obstruction. CT is suggested Chest/Abdomen/Pelvis CT 11/05/24 17:04 IMPRESSION: 1. Diffuse colitis detailed above, correlate for underlying pseudomembranous colitis. No perforation or abscess. Follow-up recommended to assess. 2. CHF with superimposed probable bronchopneumonia. 3. Incidental findings above. Contrast-enhanced MRI recommended Head CT 11/06/24 12:46 Impression: 1.No acute intracranial abnormality. Venous Doppler Study 11/19/24 18:32 Impression: Negative for DVT. Chest CT 11/20/24 16:02 IMPRESSION: 1. Increase in size of moderate sized bilateral posterior layering pleural effusions with secondary dependent atelectasis including complete collapse of the bilateral lower lobes. 2. Moderate amount of ascites in the visualized upper abdomen. 3. Mildly enlarged prevascular lymph node and the anterior mediastinum which is most likely reactive. Chest X-Ray 11/21/24 15:16 Impression: Right pneumonia with effusion. No pneumothorax identified. Thoracentesis Ultrasound 11/21/24 15:20 IMPRESSION: 1. Successful ultrasound-guided thoracentesis yielding 500 mL of yellowish fluid. Labs Labs: Laboratory Tests 11/22/24 05:36 11/22/24 05:36 Calcium 7.7 L Total Bilirubin 0.4 AST 21 ALT 13 Alkaline Phosphatase 51 Total Protein 4.7 L Albumin 2.5 L
--- NOTE | 2024-11-22 16:21 | P.PNINF_ITS ---
Progress Note: A&P Assessment and Plan (1) Clostridium difficile colitis: Code(s): A04.72 - Enterocolitis due to Clostridium difficile, not specified as recurrent Status: Acute Assessment and Plan: -Severe C.difficile colitis. Although significant improvement had been seen up until today, frequent large volume watery diarrhea has recurred . (2) Leukocytosis: Code(s): D72.829 - Elevated white blood cell count, unspecified Status: Acute Assessment and Plan: -Reactive from C.difficile infection -now resolved. (3) Diverticulitis large intestine: Code(s): K57.32 - Diverticulitis of large intestine without perforation or abscess without bleeding Status: Acute Assessment and Plan: -Diagnosed one week prior to admission -S/P Augmentin x 5 days prior to admission -Discontinued Zosyn on 11/10/24 as patient has completed 8 day course for diverticulitis (4) Colitis: Code(s): K52.9 - Noninfective gastroenteritis and colitis, unspecified Status: Acute Assessment and Plan: -Pancolitis noted on CT -Due to C.difficile colitis (5) Acute kidney injury: Code(s): N17.9 - Acute kidney failure, unspecified Status: Acute Assessment and Plan: -Management as per Nephrology service -Plans for short-term HD (6) Pleural effusion: Code(s): J90 - Pleural effusion, not elsewhere classified Status: Acute Assessment and Plan: -S/P Left thoracentesis 11/08/24 -Pleural fluid studies not consistent with empyema -Pleural fluid cultures negative for growth -Current CT scan shows persistence of bilateral posterior layering pleural effusions with complete collapse of bilateral lower lobes. -Management as per Pulmonary service Plan -- IV Flagyl added back 11/21 with some improvement. Will increase oral vancomycin back to 500 mg q.i.d.. If she has continued improvement, would expect to extend her 500 mg q.i.d. dosing for additional 10 days and stop Flagyl as early as tomorrow. Once diarrhea again responds to treatment would proceed with q.8 hour dosing of oral vancomycin x7 days, then twice daily dosing x7 days, then daily dosing x7 days, then every other day dosing for 2 additional weeks. -- Monitor abdominal exam. -- continue to monitor stool output. Patient was seen via video telehealth consultation with the assistance of staff. Chart, data, and patient independently reviewed. Patient was located at [facility] while I was located in my [place] office. Received verbal consent from patient. Subjective Date/time seen: 11/22/24 16:21 Interval history: She had increased diarrhea yesterday. Only 2 bowel movements today. Was able to eat. Decreased abdominal cramping and any diarrhea on IV Flagyl. Exam Narrative: Sitting up in bed. Alert. Looks more comfortable today. Abdomen less distended overall. No peritoneal signs. Objective Data Vital Signs Vital Signs: Vital Signs - 24 hr 11/21/24 17:52 11/21/24 20:00 11/21/24 20:00 Temperature Pulse Rate 68 60 Respiratory Rate Blood Pressure Pulse Oximetry Oxygen Delivery Room Air Fraction of Inspired Oxygen 11/21/24 20:12 11/21/24 20:27 11/22/24 00:00 Temperature 36.4 C Pulse Rate 62 57 L 53 L Respiratory Rate 20 18 Blood Pressure 145/46 H Pulse Oximetry 90 93 Oxygen Delivery Room Air Fraction of Inspired Oxygen 21 11/22/24 03:35 11/22/24 04:00 11/22/24 07:39 Temperature 36.4 C Pulse Rate 58 L 60 Respiratory Rate 18 Blood Pressure 142/61 H Pulse Oximetry 92 95 Oxygen Delivery Room Air Fraction of Inspired Oxygen 11/22/24 08:00 11/22/24 09:00 11/22/24 09:01 Temperature Pulse Rate 61 70 Respiratory Rate Blood Pressure Pulse Oximetry 95 Oxygen Delivery Room Air Fraction of Inspired Oxygen 11/22/24 12:00 11/22/24 14:01 Temperature 36.8 C Pulse Rate 70 66 Respiratory Rate 20 Blood Pressure 154/50 H Pulse Oximetry 94 Oxygen Delivery Fraction of Inspired Oxygen Intake/Output Intake/Output: Intake & Output 11/19/24 11/20/24 11/21/24 11/22/24 23:59 23:59 23:59 23:59 Intake Total 950 2040 1440 1510 Output Total 1000 1000 1900 3 Balance -50 1040 -460 1507 Meds/Results Medications: Active Medications Generic Name Dose Route Start Last Admin Trade Name Freq PRN Reason Stop Dose Admin Acetaminophen 650 mg 11/06/24 12:18 11/09/24 13:38 Acetaminophen 325 Mg Tablet PO 650 mg Q4H PRN Administration Headache Alteplase, Recombinant 2 mg 11/11/24 21:39 11/11/24 22:17 Alteplase 2 Mg Vial (Cathflo) IV PUSH 2 mg ONCE PRN Administration Line Occlusion Apixaban 2.5 mg 11/15/24 21:00 11/20/24 10:28 Apixaban 2.5 Mg Tablet PO 2.5 mg On Hold: 11/20/24 16:42 Q12HR KEVIN Administration Cyclosporine 1 drop 11/03/24 21:00 11/22/24 09:01 Cyclosporine 0.4 Ml Ophth Solution EACH EYE 1 drop Q12HR KEVIN Administration Metronidazole 500 mg in 100 mls @ 100 mls/hr 11/21/24 14:45 11/22/24 14:30 Flagyl 500 Mg/Iso Soln 100 Ml IVPB Infused Q8HR KEVIN Infusion Metoprolol Tartrate 50 mg 11/08/24 09:00 11/22/24 09:01 Metoprolol Tartrate 50 Mg Tab PO 50 mg BID KEVIN Administration Sodium Chloride 10 ml 11/06/24 22:00 11/22/24 13:27 Central Line Flush IV PUSH 10 ml Q8HR KEVIN Administration Sodium Chloride 10 ml 11/06/24 14:29 Central Line Flush IV PUSH PRN PRN with TPN bag changes Sodium Chloride 20 ml 11/06/24 14:29 11/19/24 05:57 Central Line Flush IV PUSH 20 ml PRN PRN Administration after blood draws Sodium Chloride 1 spray 11/15/24 16:13 11/15/24 17:13 Saline 0.65% Rodrigo Soln 44 Ml Btl NASAL 1 spray Q6HR PRN Administration Congestion Sodium Chloride 1 gm 11/17/24 09:00 11/21/24 17:53 Sodium Chloride 1 Gm Tablet PO 1 gm On Hold: 11/22/24 06:20 BID KEVIN Administration Trazodone HCl 50 mg 11/03/24 21:00 11/21/24 21:16 Trazodone Hcl 50 Mg Tablet PO 50 mg QHS KEVIN Administration Vancomycin HCl 500 mg 11/22/24 18:00 Vancomycin Hcl 125 Mg Oral Capsule PO Q6HR [facility] Radiology Results: ITS Impressions Abdomen/Pelvis CT 11/04/24 12:36 IMPRESSION: 1. No evidence of bowel perforation. 2. Persistent severe pancolitis. 3. New small scattered ascites. 4. New small pleural effusions and significant bibasilar atelectasis. Renal Ultrasound 11/04/24 19:07 Impression: Simple appearing left renal cyst. No significant medical renal disease or obstruction Abdomen X-Ray 11/05/24 16:02 Impression: 1. Findings concerning for small bowel obstruction. CT is suggested Chest/Abdomen/Pelvis CT 11/05/24 17:04 IMPRESSION: 1. Diffuse colitis detailed above, correlate for underlying pseudomembranous colitis. No perforation or abscess. Follow-up recommended to assess. 2. CHF with superimposed probable bronchopneumonia. 3. Incidental findings above. Contrast-enhanced MRI recommended Head CT 11/06/24 12:46 Impression: 1.No acute intracranial abnormality. Venous Doppler Study 11/19/24 18:32 Impression: Negative for DVT. Chest CT 11/20/24 16:02 IMPRESSION: 1. Increase in size of moderate sized bilateral posterior layering pleural effusions with secondary dependent atelectasis including complete collapse of the bilateral lower lobes. 2. Moderate amount of ascites in the visualized upper abdomen. 3. Mildly enlarged prevascular lymph node and the anterior mediastinum which is most likely reactive. Chest X-Ray 11/21/24 15:16 Impression: Right pneumonia with effusion. No pneumothorax identified. Thoracentesis Ultrasound 11/21/24 15:20 IMPRESSION: 1. Successful ultrasound-guided thoracentesis yielding 500 mL of yellowish fluid. Labs Labs: Laboratory Results - last 24 hr 11/22/24 05:36 WBC 10.0 RBC 2.98 L Hgb 9.1 L Hct 27.6 L MCV 92.6 MCH 30.5 MCHC 33.0 RDW 14.4 Plt Count 277 MPV 9.5 Immature Gran % (Auto) 1.2 H Neut % (Auto) 81.6 H Lymph % (Auto) 7.6 L [place] % (Auto) 8.3 Eos % (Auto) 0.4 Baso % (Auto) 0.9 Lymph # (Auto) 0.76 L [place] # (Auto) 0.8 H Eos # (Auto) 0.0 Baso # (Auto) 0.1 Abs Immat Gran (auto) 0.12 H Absolute Neuts (auto) 8.2 H Absolute Nucleated RBC 0.000 Nucleated RBC % 0.0 Sodium 127 L Potassium 3.6 Chloride 100 Carbon Dioxide 22 Anion Gap 5 BUN 29 H Creatinine 0.97 Estim Creat Clear Calc 44 Estimated GFR 56 L Glucose 110 Calcium 7.7 L Total Bilirubin 0.4 AST 21 ALT 13 Alkaline Phosphatase 51 Total Protein 4.7 L Albumin 2.5 L
[2024-11-22] MEDS: VANCOMYCIN HCL 125 MG ORAL CAPSULE 500 MG PO (17:41)
--- NOTE | 2024-11-22 17:53 | P.PNIM_ITS ---
Progress Note: A&P Assessment and Plan (1) Clostridium difficile colitis: Code(s): A04.72 - Enterocolitis due to Clostridium difficile, not specified as recurrent Status: Acute Assessment and Plan: - Metronidazole complete from 11/08/2024 to 11/15/2024 - per ID: maintain planned pulse/ taper with oral vancomycin. Currently at 250 mg Q 6 hours changed at 11/16/2024. would plan q.8 hour dosing of oral vancomycin starting 11/30 and then decrease to twice daily dosing on 12/07. daily doses starting on 12/14 and then every other day dosing x2 weeks starting on 12/21/2024. - monitor stool output while tapering vanc - Zosyn discontinued - leukocytosis and diarrhea improving - continue Banatrol -Appreciate ID recommendations (2) Acute hypoxic respiratory failure: Code(s): J96.01 - Acute respiratory failure with hypoxia Status: Acute Assessment and Plan: -Pulmonology consulted. Less likely pneumonia, pneumonia specific antibiotics discontinued. Status post thoracentesis on 11/08/2024 showing exudative effusion, not infectious, macrophage predominant, likely related to colitis/fluid overload related to acute kidney injury. - echo on 10/08 demonstrating normal left ventricular function. - CXR 11/19 with persistent left lower lobe atelectasis with associated effusion - CT chest 11/20 with increase in size of moderate-sized bilateral posterior layering pleural effusions with secondary dependent atelectasis including complete collapse of the bilateral lobes - encouraged incentive spirometry, pulmonary hygiene - intermittently requiring oxygen and tachypneic - repeat thoracentesis ordered (3) Pleural effusion: Code(s): J90 - Pleural effusion, not elsewhere classified Status: Acute Assessment and Plan: - management as above (4) Hyponatremia: Code(s): E87.1 - Hypo-osmolality and hyponatremia Status: Acute Assessment and Plan: - nephrology on board. Multiple interventions including dialysis, IV fluids, diuretics, salt tabs, 3% hypertonic with minimal improvement. Na 124 which is minimally improved, but patient's intake is improving so hoping sodium will continue to rise. - Nephrology following (5) Anemia: Code(s): D64.9 - Anemia, unspecified Status: Acute Assessment and Plan: - Hgb 11.7 on admission, trended down to 9.0 11/21. Denied signs of bleeding, - likely multifactorial in setting of renal failure, IV fluids, critical illness - check iron studies (6) Adjustment disorder with depressed mood: Code(s): F43.21 - Adjustment disorder with depressed mood Status: Acute Assessment and Plan: - intermittently refused therapy. She is depressed because she has never been this ill before, relatively healthy previous to this admission. She denies adamantly any suicidal ideation, she also refuses to see Psychiatry or to start any pharmacological therapy. - affect seems to be improving. She worked with therapy 11/19. Encouraged to continue participation. Reassurance provided. - continue trazodone qHS (7) Hypertension: Code(s): I10 - Essential (primary) hypertension Status: Chronic Assessment and Plan: -Lisinopril and spironolactone on hold due to DONOVAN -Amlodipine initially on hold to allow titration of beta-christine. Will resume due to high BP trend. - monitor BP (8) Atrial flutter: Code(s): I48.92 - Unspecified atrial flutter Status: Acute Assessment and Plan: -New diagnosis, now converted to sinus rhythm. -Continue metoprolol 50 mg p.o. b.i.d.. -Digoxin stopped due to renal failure - continue Eliquis -Keep potassium greater than 4 magnesium greater than 2, keep renal failure in consideration when replacing electrolytes (9) Acute kidney injury: Code(s): N17.9 - Acute kidney failure, unspecified Status: Acute Assessment and Plan: -Infection vs Contrast related injury vs prerenal. Creatinine normal 2 days prior to admission Nephrology is following, right IJ Cecil dialysis catheter placed on 11/10/2024. -Dialysis started on 11/10/2024. No dialysis for some time now, Nephrology continues to manage. -Renal ultrasound without obstruction, urine electrolytes pre renal, urine eosinophils negative, CPK normal, mild proteinuria -Holding lisinopril and spironolactone -[place] catheter in place -Follow renal function labs and urine output -Disposition pending. When ready to pull out the IJ, hold Eliquis for at least 24 hours. (10) Anxiety: Code(s): F41.9 - Anxiety disorder, unspecified Status: Acute Assessment and Plan: - continue Xanax, trazodone Plan 78 y/o female with severe recurrent C Diff suspect 2/2 Augmentin taken recently, is seen by ID and being treated with IV Flagyl and increase high dose oral vancomycin 500mg qid currently, plan is as patient symptoms improved will taper vancomycin, so far today patient 2 loose BM, will monitor, patient remains clinically stable, will monitor. Code status: full code DVT prophylaxis: Eliquis Dispo: possibly RO when medically stable. Care coordination following. Subjective Date/time seen: 11/22/24 17:53 Interval history: 78 y/o female with severe recurrent C Diff suspect 2/2 Augmentin taken recently, is seen by ID and being treated with IV Flagyl and increase high dose oral vancomycin 500mg qid currently, plan is as patient symptoms improved will taper vancomycin, so far today patient 2 loose BM, will monitor, patient remains clinically stable, will monitor. Review of Systems Review of Systems: 12 systems were reviewed and are negativ e except for as per HPI. Exam Narrative: Patient is comfortable, NAD HEENT: eyes are clear and none icteric LUNGS:CTA HEART: RR S1S2 ABD: BS+, Soft and nontender Lower extremities: no edema SKIN: nonjaundiced Neuro: grossly intact. Objective Data Vital Signs Vital Signs: Vital Signs - 24 hr 11/21/24 20:00 11/21/24 20:00 11/21/24 20:12 Temperature Pulse Rate 60 62 Respiratory Rate 20 Blood Pressure Pulse Oximetry 90 Oxygen Delivery Room Air Room Air Fraction of Inspired Oxygen 21 11/21/24 20:27 11/22/24 00:00 11/22/24 03:35 Temperature 36.4 C 36.4 C Pulse Rate 57 L 53 L 58 L Respiratory Rate 18 18 Blood Pressure 145/46 H 142/61 H Pulse Oximetry 93 92 Oxygen Delivery Fraction of Inspired Oxygen 11/22/24 04:00 11/22/24 07:39 11/22/24 08:00 Temperature Pulse Rate 60 61 Respiratory Rate Blood Pressure Pulse Oximetry 95 Oxygen Delivery Room Air Fraction of Inspired Oxygen 11/22/24 09:00 11/22/24 09:01 11/22/24 12:00 Temperature Pulse Rate 70 70 Respiratory Rate Blood Pressure Pulse Oximetry 95 Oxygen Delivery Room Air Fraction of Inspired Oxygen 11/22/24 14:01 11/22/24 16:00 11/22/24 17:41 Temperature 36.8 C Pulse Rate 66 65 66 Respiratory Rate 20 Blood Pressure 154/50 H Pulse Oximetry 94 Oxygen Delivery Fraction of Inspired Oxygen Intake/Output Intake/Output: Intake & Output 11/19/24 11/20/24 11/21/24 11/22/24 23:59 23:59 23:59 23:59 Intake Total 950 2040 1440 1630 Output Total 1000 1000 1900 3 Balance -50 1040 -460 1627 Meds/Results Medications: Active Medications Generic Name Dose Route Start Last Admin Trade Name Freq PRN Reason Stop Dose Admin Acetaminophen 650 mg 11/06/24 12:18 11/09/24 13:38 Acetaminophen 325 Mg Tablet PO 650 mg Q4H PRN Administration Headache Alteplase, Recombinant 2 mg 11/11/24 21:39 11/11/24 22:17 Alteplase 2 Mg Vial (Cathflo) IV PUSH 2 mg ONCE PRN Administration Line Occlusion Apixaban 2.5 mg 11/15/24 21:00 11/20/24 10:28 Apixaban 2.5 Mg Tablet PO 2.5 mg On Hold: 11/20/24 16:42 Q12HR KEVIN Administration Cyclosporine 1 drop 11/03/24 21:00 11/22/24 09:01 Cyclosporine 0.4 Ml Ophth Solution EACH EYE 1 drop Q12HR KEVIN Administration Metronidazole 500 mg in 100 mls @ 100 mls/hr 11/21/24 14:45 11/22/24 14:30 Flagyl 500 Mg/Iso Soln 100 Ml IVPB Infused Q8HR KEVIN Infusion Metoprolol Tartrate 50 mg 11/08/24 09:00 11/22/24 17:41 Metoprolol Tartrate 50 Mg Tab PO 50 mg BID KEVIN Administration Sodium Chloride 10 ml 11/06/24 22:00 11/22/24 13:27 Central Line Flush IV PUSH 10 ml Q8HR KEVIN Administration Sodium Chloride 10 ml 11/06/24 14:29 Central Line Flush IV PUSH PRN PRN with TPN bag changes Sodium Chloride 20 ml 11/06/24 14:29 11/19/24 05:57 Central Line Flush IV PUSH 20 ml PRN PRN Administration after blood draws Sodium Chloride 1 spray 11/15/24 16:13 11/15/24 17:13 Saline 0.65% Rodrigo Soln 44 Ml Btl NASAL 1 spray Q6HR PRN Administration Congestion Sodium Chloride 1 gm 11/17/24 09:00 11/21/24 17:53 Sodium Chloride 1 Gm Tablet PO 1 gm On Hold: 11/22/24 06:20 BID KEVIN Administration Trazodone HCl 50 mg 11/03/24 21:00 11/21/24 21:16 Trazodone Hcl 50 Mg Tablet PO 50 mg QHS KEVIN Administration Vancomycin HCl 500 mg 11/22/24 18:00 11/22/24 17:41 Vancomycin Hcl 125 Mg Oral Capsule PO 500 mg Q6HR KEVIN Administration Radiology Results: ITS Impressions Abdomen/Pelvis CT 11/04/24 12:36 IMPRESSION: 1. No evidence of bowel perforation. 2. Persistent severe pancolitis. 3. New small scattered ascites. 4. New small pleural effusions and significant bibasilar atelectasis. Renal Ultrasound 11/04/24 19:07 Impression: Simple appearing left renal cyst. No significant medical renal disease or obstruction Abdomen X-Ray 11/05/24 16:02 Impression: 1. Findings concerning for small bowel obstruction. CT is suggested Chest/Abdomen/Pelvis CT 11/05/24 17:04 IMPRESSION: 1. Diffuse colitis detailed above, correlate for underlying pseudomembranous colitis. No perforation or abscess. Follow-up recommended to assess. 2. CHF with superimposed probable bronchopneumonia. 3. Incidental findings above. Contrast-enhanced MRI recommended Head CT 11/06/24 12:46 Impression: 1.No acute intracranial abnormality. Venous Doppler Study 11/19/24 18:32 Impression: Negative for DVT. Chest CT 11/20/24 16:02 IMPRESSION: 1. Increase in size of moderate sized bilateral posterior layering pleural effusions with secondary dependent atelectasis including complete collapse of the bilateral lower lobes. 2. Moderate amount of ascites in the visualized upper abdomen. 3. Mildly enlarged prevascular lymph node and the anterior mediastinum which is most likely reactive. Chest X-Ray 11/21/24 15:16 Impression: Right pneumonia with effusion. No pneumothorax identified. Thoracentesis Ultrasound 11/21/24 15:20 IMPRESSION: 1. Successful ultrasound-guided thoracentesis yielding 500 mL of yellowish fluid. Labs Labs: Laboratory Results - last 24 hr 11/22/24 05:36 WBC 10.0 RBC 2.98 L Hgb 9.1 L Hct 27.6 L MCV 92.6 MCH 30.5 MCHC 33.0 RDW 14.4 Plt Count 277 MPV 9.5 Immature Gran % (Auto) 1.2 H Neut % (Auto) 81.6 H Lymph % (Auto) 7.6 L [place] % (Auto) 8.3 Eos % (Auto) 0.4 Baso % (Auto) 0.9 Lymph # (Auto) 0.76 L [place] # (Auto) 0.8 H Eos # (Auto) 0.0 Baso # (Auto) 0.1 Abs Immat Gran (auto) 0.12 H Absolute Neuts (auto) 8.2 H Absolute Nucleated RBC 0.000 Nucleated RBC % 0.0 Sodium 127 L Potassium 3.6 Chloride 100 Carbon Dioxide 22 Anion Gap 5 BUN 29 H Creatinine 0.97 Estim Creat Clear Calc 44 Estimated GFR 56 L Glucose 110 Calcium 7.7 L Total Bilirubin 0.4 AST 21 ALT 13 Alkaline Phosphatase 51 Total Protein 4.7 L Albumin 2.5 L Quality VTE Prophylaxis VTE prophylaxis: mechanical ordered and pharmacologic ordered
[2024-11-23] VITALS (11 sets, daily range): BP systolic 151–163; BP diastolic 46–51; PULSE 54–71; RESP 16–18; TEMP 36.3–36.6; O2SAT 93–94
[2024-11-23] MEDS: VANCOMYCIN HCL 125 MG ORAL CAPSULE 500 MG PO ×3 (00:36→11:57)
[2024-11-23] MEDS: metroNIDAZOLE 500 MG/ISO 100ML 500 MG/100 ML BAG 100 MG IVPB ×3 (05:21→22:01)
[2024-11-23] MEDS: CENTRAL LINE FLUSH 10 ML IV PUSH ×3 (05:22→22:02)
[2024-11-23 05:57] LABS: Alanine Aminotransferase 13 U/L (6-35); Albumin Level 2.4 g/dL (3.5-5.1); Alkaline Phosphatase 54 U/L (38-126); Anion Gap 1 mmol/L (4-12); Aspartate Amino Transferase 19 U/L (14-36); Bilirubin,Total 0.4 mg/dL (0.2-1.3); Blood Urea Nitrogen 27 mg/dL (7-17); Calcium 7.5 mg/dL (8.4-10.2); Carbon Dioxide 23 mmol/L (22-30); Chloride 101 mmol/L (98-107); Estimated CRCL calculation 45 ml/min; Estimated Glomerular Filt Rate 57; Glucose 119 mg/dL (65-110); Potassium 3.4 mmol/L (3.4-5.0); Sodium 125 mmol/L (137-145); Total Protein 4.5 g/dL (6.3-8.2)
[2024-11-23] MEDS: METOPROLOL TARTRATE 50 MG TAB PO ×2 (08:16→17:25)
[2024-11-23] MEDS: cycloSPORINE 0.4 ML OPHTH SOLUTION 1 DROP EACH EYE ×2 (08:17→20:16)
[2024-11-23] MEDS: SODIUM CHLORIDE 1 GM TABLET PO ×2 (08:18→17:26)
[2024-11-23 10:49] LABS: Hematocrit 26.8 % (37.0-47.0); Hemoglobin 8.9 g/dL (12.0-15.0); Immature Granulocyte Percent A 1.1 % (0-0.5); Lymphocytes Absolute Auto 0.61 K/mm3 (0.9-3.2); Mean Corpuscular HGB Conc 33.2 g/dl (32-36); Mean Corpuscular Hemoglobin 30.9 pg (26-34); Mean Corpuscular Volume 93.1 fl (80-100); Nucleated Red Blood Cells Absolute Auto 0.000 K/mm3 (0.0-0.012); Nucleated Red Blood Cells Perc 0.0 % (0.0-0.2); Platelet Count Result 240 k/mm3 (150-375); Red Blood Count 2.88 M/mm3 (4.2-5.4); White Blood Count 7.6 K/mm3 (4.5-10.0)
--- NOTE | 2024-11-23 10:52 | PCNFU ---
Nutrition Follow-Up Complete: Inadequate oral intake related to altered GI function as evidenced by diverticulitis Goal: Diet advancement Improve PO intake when diet advanced Patient is progressing towards goal. We will continue current goal. Pt current nutrition is Heart Healthy with Banatrol Plus BID and Ensure Plus High Protein BID. Last recorded weight is 85.6 kg Bowel Motility: Last reported BM 11/23 Labs Reviewed: Glu 119, BUN 27, GFR 57, NA 125, Alb 2.4 Meds Noted: Flagyl, Eliquis, Vancomycin. Skin: WNL Additional Notes:Patient tolerating heart healthy diet. Diet supplements of Ensure providing an additional 350 kcal and 20 gm protein. Banatrol BID 2/2 to CDiff+ Agree wtih diet orders at this time. Monitoring diet orders, weights, labs, plan of care Follow up in 5 days
[2024-11-23 11:16] LABS: Alanine Aminotransferase 14 U/L (6-35); Albumin Level 2.5 g/dL (3.5-5.1); Alkaline Phosphatase 57 U/L (38-126); Anion Gap 6 mmol/L (4-12); Aspartate Amino Transferase 21 U/L (14-36); Bilirubin,Total 0.3 mg/dL (0.2-1.3); Blood Urea Nitrogen 26 mg/dL (7-17); Calcium 7.6 mg/dL (8.4-10.2); Carbon Dioxide 23 mmol/L (22-30); Chloride 100 mmol/L (98-107); Estimated CRCL calculation 45 ml/min; Estimated Glomerular Filt Rate 57; Glucose 161 mg/dL (65-110); Magnesium 1.5 mg/dL (1.6-2.3); Potassium 3.3 mmol/L (3.4-5.0); Sodium 129 mmol/L (137-145); Total Protein 4.8 g/dL (6.3-8.2)
--- NOTE | 2024-11-23 13:06 | PM.PNNEP ---
Progress Note: A&P Assessment and Plan (1) Acute kidney injury: Code(s): N17.9 - Acute kidney failure, unspecified Status: Acute Assessment and Plan: stable if not resolved as noted by admission labs (creatinine of 3.03mg/dL) creatinine normal 2 days prior to admission baseline creatinine runs ~ 0.9 - 1.1mg/dL suspect multifactorial etiology: prerenal factors infection/early sepsis (diverticulitis/colitis) contrast exposure (CT of A/P on 11/01) relative hypotension on presentation JAMIE-I/diuretic use prior to admission urinary retention(?) - difficulty urinating on admission so gamble catheter placed other (?) evaluation to date noted: renal ultrasound without obstruction urine electrolytes prerenal urine eosinophils negative CPK normal mild proteinuria holding lisinopril and spironolactone 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 diff toxin assay also noted by CT imaging to date: CT of C/A/P (11/05): Diffuse colitis detailed above, correlate for underlying pseudomembranous colitis. No perforation or abscess CT of A/P (11/04): No evidence of bowel perforation; persistent severe pancolitis CT of A/P (11/03): Interval progression of radiographically uncomplicated selby colitis which could be infectious, inflammatory or less likely ischemic in etiology CT of A/P (11/01): Sigmoid diverticulitis. No perforation or abscess complicated by diverticulitis follow culture data follow trend of WBC on antibiotics Infectious Disease following (3) Acute hypoxic respiratory failure: Code(s): J96.01 - Acute respiratory failure with hypoxia Status: Acute Assessment and Plan: improvement noted multifactorial etiology: bilateral pleural effusions atelectasis fluid overload atrial flutter with rapid ventricular response pancolitis possible pneumonia (?) s/p thoracentesis (on 11/08) Pulmonary recommendations noted CT of chest (on 11/20) noted s/p repeat thoracentesis on 11/21 recent CXR noted - start oral lasix (4) Hyponatremia: Code(s): E87.1 - Hypo-osmolality and hyponatremia Status: Acute Assessment and Plan: slow improvement as noted on admission possible chronic component -- sodium seems to run 129 - 136mmol/L since 2021 presumably worsen by: DONOVAN/ARF prerenal factors pleural effusions possible pneumonia urinary retention mild improvement s/p intial IVF resuscitation no improvement with repeat trial of IVFs evaluation to date: repeat urine electrolytes (11/17) non-prerenal noted abnormal SPEP and UPEP -- checking immunofixation TSH/thyroid studies noted cortisol okay follow trend of sodium (5) Metabolic acidosis: Code(s): E87.20 - Acidosis, unspecified Status: Acute Assessment and Plan: resolved due to DONOVAN/ARF and GI issues/symptoms fluctuating lactic acid levels noted follow repeat labs (6) Atrial flutter: Code(s): I48.92 - Unspecified atrial flutter Status: Acute Assessment and Plan: as noted by events early on 11/05 rate control strategy Cardiology recommendations noted on metoprolol was on IV amiodarone (temporary measure) Echo noted (on 11/07) left ventricular systolic function is hyperdynamic, estimated at > 70% left ventricular diastolic function is grade I diastolic dysfunction no aortic valve stenosis mild tricuspid valve regurgitation on anticoagulation (7) Elevated troponin: Code(s): R79.89 - Other specified abnormal findings of blood chemistry Status: Acute Assessment and Plan: due to DONOVAN versus atrial fluttter with RVR trend noted Cardiology comments noted (8) Hypertension: Code(s): I10 - Essential (primary) hypertension Status: Chronic Assessment and Plan: reasonable control holding JAMIE-I due to #1 follow trend of hemodynamics Will continue to follow. Subjective Date/time seen: 11/23/24 13:06 Interval history: Follow-up for acute kidney injury/acute renal failure. Overall, seems to be slowly improving; up in chair at the time of my visit; renal function/creatinine remains stable with slow improvement in sodium level as well; still has some lower extremity swelling/edema present; attempting to eat more as well; discussed with family at bedside. Exam Narrative: General: elderly but WD/WN female in NAD Heart: RRR, normal S1 and S2; no rub Lungs: coarse and decreased at bases Abdomen: soft, nontender, positive bowel sounds Extremities: no cyanosis or clubbing; 1+ edema Skin: warm and intact Objective Data Vital Signs Vital Signs: Vital Signs Temp Pulse Resp BP Pulse Ox O2 Del Method 11/23/24 13:00 97.4 F L 65 16 154/51 H 94 11/23/24 08:16 64 11/23/24 08:15 Room Air 11/23/24 08:00 63 11/23/24 05:13 97.9 F 59 L 18 151/46 H 93 11/23/24 04:00 54 L 11/23/24 00:00 57 L 11/22/24 21:06 97.6 F 62 18 161/48 H 94 11/22/24 20:00 59 L 11/22/24 20:00 Room Air 11/22/24 17:41 66 Intake/Output Intake/Output: Intake & Output 11/20/24 11/21/24 11/22/24 11/23/24 23:59 23:59 23:59 23:59 Intake Total 2040 1440 1730 780 Output Total 1000 1900 3 Balance 1040 -460 1727 780 Meds/Results Medications: Active Medications Generic Name Dose Route Start Last Admin Trade Name Freq PRN Reason Stop Dose Admin Acetaminophen 650 mg 11/06/24 12:18 11/09/24 13:38 Acetaminophen 325 Mg Tablet PO 650 mg Q4H PRN Administration Headache Alteplase, Recombinant 2 mg 11/11/24 21:39 11/11/24 22:17 Alteplase 2 Mg Vial (Cathflo) IV PUSH 2 mg ONCE PRN Administration Line Occlusion Apixaban 2.5 mg 11/15/24 21:00 11/20/24 10:28 Apixaban 2.5 Mg Tablet PO 2.5 mg On Hold: 11/20/24 16:42 Q12HR KEVIN Administration Cyclosporine 1 drop 11/03/24 21:00 11/23/24 08:17 Cyclosporine 0.4 Ml Ophth Solution EACH EYE 1 drop Q12HR KEVIN Administration Fidaxomicin 200 mg 11/23/24 13:30 11/23/24 14:17 Fidaxomicin 200 Mg Tablet PO 12/02/24 21:01 200 mg Q12HR KEVIN Administration Metronidazole 500 mg in 100 mls @ 100 mls/hr 11/21/24 14:45 11/23/24 15:18 Flagyl 500 Mg/Iso Soln 100 Ml IVPB 11/25/24 23:59 Infused Q8HR KEVIN Infusion Magnesium Oxide 400 mg 11/24/24 09:00 Magnesium Oxide 400 Mg Tablet PO QAM KEVIN Metoprolol Tartrate 50 mg 11/08/24 09:00 11/23/24 08:16 Metoprolol Tartrate 50 Mg Tab PO 50 mg BID KEVIN Administration Sodium Chloride 10 ml 11/06/24 22:00 11/23/24 14:19 Central Line Flush IV PUSH 10 ml Q8HR KEVIN Administration Sodium Chloride 10 ml 11/06/24 14:29 Central Line Flush IV PUSH PRN PRN with TPN bag changes Sodium Chloride 20 ml 11/06/24 14:29 11/19/24 05:57 Central Line Flush IV PUSH 20 ml PRN PRN Administration after blood draws Sodium Chloride 1 spray 11/15/24 16:13 11/15/24 17:13 Saline 0.65% Rodrigo Soln 44 Ml Btl NASAL 1 spray Q6HR PRN Administration Congestion Sodium Chloride 1 gm 11/17/24 09:00 11/23/24 08:18 Sodium Chloride 1 Gm Tablet PO 1 gm BID KEVIN Administration Trazodone HCl 50 mg 11/03/24 21:00 11/22/24 21:21 Trazodone Hcl 50 Mg Tablet PO 50 mg QHS KEVIN Administration Radiology Results: ITS Impressions Abdomen/Pelvis CT 11/04/24 12:36 IMPRESSION: 1. No evidence of bowel perforation. 2. Persistent severe pancolitis. 3. New small scattered ascites. 4. New small pleural effusions and significant bibasilar atelectasis. Renal Ultrasound 11/04/24 19:07 Impression: Simple appearing left renal cyst. No significant medical renal disease or obstruction Abdomen X-Ray 11/05/24 16:02 Impression: 1. Findings concerning for small bowel obstruction. CT is suggested Chest/Abdomen/Pelvis CT 11/05/24 17:04 IMPRESSION: 1. Diffuse colitis detailed above, correlate for underlying pseudomembranous colitis. No perforation or abscess. Follow-up recommended to assess. 2. CHF with superimposed probable bronchopneumonia. 3. Incidental findings above. Contrast-enhanced MRI recommended Head CT 11/06/24 12:46 Impression: 1.No acute intracranial abnormality. Venous Doppler Study 11/19/24 18:32 Impression: Negative for DVT. Chest CT 11/20/24 16:02 IMPRESSION: 1. Increase in size of moderate sized bilateral posterior layering pleural effusions with secondary dependent atelectasis including complete collapse of the bilateral lower lobes. 2. Moderate amount of ascites in the visualized upper abdomen. 3. Mildly enlarged prevascular lymph node and the anterior mediastinum which is most likely reactive. Thoracentesis Ultrasound 11/21/24 15:20 IMPRESSION: 1. Successful ultrasound-guided thoracentesis yielding 500 mL of yellowish fluid. Chest X-Ray 11/23/24 08:49 IMPRESSION: 1. Persistent large right pleural effusion with associated basilar atelectasis and/or airspace disease. 2. Left lung developing interstitial pulmonary edema and/or pneumonitis. Labs Labs: Laboratory Tests 11/23/24 10:35 11/23/24 10:35 Calcium 7.6 L Magnesium 1.5 L Total Bilirubin 0.3 AST 21 ALT 14 Alkaline Phosphatase 57 Total Protein 4.8 L Albumin 2.5 L
--- NOTE | 2024-11-23 13:06 | P.PNNP_ITS ---
Progress Note: A&P Assessment and Plan (1) Acute kidney injury: Code(s): N17.9 - Acute kidney failure, unspecified Status: Acute Assessment and Plan: * stable if not resolved * as noted by admission labs (creatinine of 3.03mg/dL) * creatinine normal 2 days prior to admission * baseline creatinine runs ~ 0.9 - 1.1mg/dL * suspect multifactorial etiology: * prerenal factors * infection/early sepsis (diverticulitis/colitis) * contrast exposure (CT of A/P on 11/01) * relative hypotension on presentation * JAMIE-I/diuretic use prior to admission * urinary retention(?) - difficulty urinating on admission so gamble catheter placed * other (?) * evaluation to date noted: * renal ultrasound without obstruction * urine electrolytes prerenal * urine eosinophils negative * CPK normal * mild proteinuria * holding lisinopril and spironolactone * 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 diff toxin assay * also noted by CT imaging to date: * CT of C/A/P (11/05): Diffuse colitis detailed above, correlate for underlying pseudomembranous colitis. No perforation or abscess * CT of A/P (11/04): No evidence of bowel perforation; persistent severe pancolitis * CT of A/P (11/03): Interval progression of radiographically uncomplicated selby colitis which could be infectious, inflammatory or less likely ischemic in etiology * CT of A/P (11/01): Sigmoid diverticulitis. No perforation or abscess * complicated by diverticulitis * follow culture data * follow trend of WBC * on antibiotics * Infectious Disease following (3) Acute hypoxic respiratory failure: Code(s): J96.01 - Acute respiratory failure with hypoxia Status: Acute Assessment and Plan: * improvement noted * multifactorial etiology: * bilateral pleural effusions * atelectasis * fluid overload * atrial flutter with rapid ventricular response * pancolitis * possible pneumonia (?) * s/p thoracentesis (on 11/08) * Pulmonary recommendations noted * CT of chest (on 11/20) noted * s/p repeat thoracentesis on 11/21 * recent CXR noted - start oral lasix (4) Hyponatremia: Code(s): E87.1 - Hypo-osmolality and hyponatremia Status: Acute Assessment and Plan: * slow improvement * as noted on admission * possible chronic component -- sodium seems to run 129 - 136mmol/L since 2021 * presumably worsen by: * DONOVAN/ARF * prerenal factors * pleural effusions * possible pneumonia * urinary retention * mild improvement s/p intial IVF resuscitation * no improvement with repeat trial of IVFs * evaluation to date: * repeat urine electrolytes (11/17) non-prerenal * noted abnormal SPEP and UPEP -- checking immunofixation * TSH/thyroid studies noted * cortisol okay * follow trend of sodium (5) Metabolic acidosis: Code(s): E87.20 - Acidosis, unspecified Status: Acute Assessment and Plan: * resolved * due to DONOVAN/ARF and GI issues/symptoms * fluctuating lactic acid levels noted * follow repeat labs (6) Atrial flutter: Code(s): I48.92 - Unspecified atrial flutter Status: Acute Assessment and Plan: * as noted by events early on 11/05 * rate control strategy * Cardiology recommendations noted * on metoprolol * was on IV amiodarone (temporary measure) * Echo noted (on 11/07) * left ventricular systolic function is hyperdynamic, estimated at > 70% * left ventricular diastolic function is grade I diastolic dysfunction * no aortic valve stenosis * mild tricuspid valve regurgitation * on anticoagulation (7) Elevated troponin: Code(s): R79.89 - Other specified abnormal findings of blood chemistry Status: Acute Assessment and Plan: * due to DONOVAN versus atrial fluttter with RVR * trend noted * Cardiology comments noted (8) Hypertension: Code(s): I10 - Essential (primary) hypertension Status: Chronic Assessment and Plan: * reasonable control * holding JAMIE-I due to #1 * follow trend of hemodynamics Will continue to follow. L Subjective Date/time seen: 11/23/24 13:06 Interval history: Follow-up for acute kidney injury/acute renal failure. Overall, seems to be slowly improving; up in chair at the time of my visit; renal function/creatinine remains stable with slow improvement in sodium level as well; still has some lower extremity swelling/edema present; attempting to eat more as well; discussed with family at bedside. Exam 2 Narrative: General: elderly but WD/WN female in NAD Heart: RRR, normal S1 and S2; no rub Lungs: coarse and decreased at bases Abdomen: soft, nontender, positive bowel sounds Extremities: no cyanosis or clubbing; 1+ edema Skin: warm and intact Objective Data Vital Signs Vital Signs: Vital Signs Temp Pulse Resp BP Pulse Ox O2 Del Method 11/23/24 13:00 97.4 F L 65 16 154/51 H 94 11/23/24 08:16 64 11/23/24 08:15 Room Air 11/23/24 08:00 63 11/23/24 05:13 97.9 F 59 L 18 151/46 H 93 11/23/24 04:00 54 L 11/23/24 00:00 57 L 11/22/24 21:06 97.6 F 62 18 161/48 H 94 11/22/24 20:00 59 L 11/22/24 20:00 Room Air 11/22/24 17:41 66 Intake/Output Intake/Output: Intake & Output 11/20/24 11/21/24 11/22/24 11/23/24 23:59 23:59 23:59 23:59 Intake Total 2040 1440 1730 780 Output Total 1000 1900 3 Balance 1040 -460 1727 780 Meds/Results Medications: Active Medications Generic Name Dose Route Start Last Admin Trade Name Freq PRN Reason Stop Dose Admin Acetaminophen 650 mg 11/06/24 12:18 11/09/24 13:38 Acetaminophen 325 Mg Tablet PO 650 mg Q4H PRN Administration Headache Alteplase, Recombinant 2 mg 11/11/24 21:39 11/11/24 22:17 Alteplase 2 Mg Vial (Cathflo) IV PUSH 2 mg ONCE PRN Administration Line Occlusion Apixaban 2.5 mg 11/15/24 21:00 11/20/24 10:28 Apixaban 2.5 Mg Tablet PO 2.5 mg On Hold: 11/20/24 16:42 Q12HR KEVIN Administration Cyclosporine 1 drop 11/03/24 21:00 11/23/24 08:17 Cyclosporine 0.4 Ml Ophth Solution EACH EYE 1 drop Q12HR KEVIN Administration Fidaxomicin 200 mg 11/23/24 13:30 11/23/24 14:17 Fidaxomicin 200 Mg Tablet PO 12/02/24 21:01 200 mg Q12HR KEVIN Administration Metronidazole 500 mg in 100 mls @ 100 mls/hr 11/21/24 14:45 11/23/24 15:18 Flagyl 500 Mg/Iso Soln 100 Ml IVPB 11/25/24 23:59 Infused Q8HR KEVIN Infusion Magnesium Oxide 400 mg 11/24/24 09:00 Magnesium Oxide 400 Mg Tablet PO QAM KEVIN Metoprolol Tartrate 50 mg 11/08/24 09:00 11/23/24 08:16 Metoprolol Tartrate 50 Mg Tab PO 50 mg BID KEVIN Administration Sodium Chloride 10 ml 11/06/24 22:00 11/23/24 14:19 Central Line Flush IV PUSH 10 ml Q8HR KEVIN Administration Sodium Chloride 10 ml 11/06/24 14:29 Central Line Flush IV PUSH PRN PRN with TPN bag changes Sodium Chloride 20 ml 11/06/24 14:29 11/19/24 05:57 Central Line Flush IV PUSH 20 ml PRN PRN Administration after blood draws Sodium Chloride 1 spray 11/15/24 16:13 11/15/24 17:13 Saline 0.65% Rodrigo Soln 44 Ml Btl NASAL 1 spray Q6HR PRN Administration Congestion Sodium Chloride 1 gm 11/17/24 09:00 11/23/24 08:18 Sodium Chloride 1 Gm Tablet PO 1 gm BID KEVIN Administration Trazodone HCl 50 mg 11/03/24 21:00 11/22/24 21:21 Trazodone Hcl 50 Mg Tablet PO 50 mg QHS KEVIN Administration Radiology Results: ITS Impressions Abdomen/Pelvis CT 11/04/24 12:36 IMPRESSION: 1. No evidence of bowel perforation. 2. Persistent severe pancolitis. 3. New small scattered ascites. 4. New small pleural effusions and significant bibasilar atelectasis. Renal Ultrasound 11/04/24 19:07 Impression: Simple appearing left renal cyst. No significant medical renal disease or obstruction Abdomen X-Ray 11/05/24 16:02 Impression: 1. Findings concerning for small bowel obstruction. CT is suggested Chest/Abdomen/Pelvis CT 11/05/24 17:04 IMPRESSION: 1. Diffuse colitis detailed above, correlate for underlying pseudomembranous colitis. No perforation or abscess. Follow-up recommended to assess. 2. CHF with superimposed probable bronchopneumonia. 3. Incidental findings above. Contrast-enhanced MRI recommended Head CT 11/06/24 12:46 Impression: 1.No acute intracranial abnormality. Venous Doppler Study 11/19/24 18:32 Impression: Negative for DVT. Chest CT 11/20/24 16:02 IMPRESSION: 1. Increase in size of moderate sized bilateral posterior layering pleural effusions with secondary dependent atelectasis including complete collapse of the bilateral lower lobes. 2. Moderate amount of ascites in the visualized upper abdomen. 3. Mildly enlarged prevascular lymph node and the anterior mediastinum which is most likely reactive. Thoracentesis Ultrasound 11/21/24 15:20 IMPRESSION: 1. Successful ultrasound-guided thoracentesis yielding 500 mL of yellowish fluid. Chest X-Ray 11/23/24 08:49 IMPRESSION: 1. Persistent large right pleural effusion with associated basilar atelectasis and/or airspace disease. 2. Left lung developing interstitial pulmonary edema and/or pneumonitis. Labs Labs: Laboratory Tests 11/23/24 10:35 11/23/24 10:35 Calcium 7.6 L Magnesium 1.5 L Total Bilirubin 0.3 AST 21 ALT 14 Alkaline Phosphatase 57 Total Protein 4.8 L Albumin 2.5 L
[2024-11-23] MEDS: FIDAXOMICIN 200 MG TABLET PO ×2 (14:17→20:16)
[2024-11-23] MEDS: POTASSIUM CHLORIDE 20 MEQ PACKET (FOR LIQUID) 40 MEQ PO (14:18)
[2024-11-23] MEDS: MAGNESIUM SULF 2 GM/WATER 50ML 2 GM/50 ML BAG IVPB (14:19)
--- NOTE | 2024-11-23 16:29 | P.PNIM_ITS ---
Progress Note: A&P Assessment and Plan (1) Clostridium difficile colitis: Code(s): A04.72 - Enterocolitis due to Clostridium difficile, not specified as recurrent Status: Acute Assessment and Plan: - Metronidazole complete from 11/08/2024 to 11/15/2024 - per ID: maintain planned pulse/ taper with oral vancomycin. Currently at 250 mg Q 6 hours changed at 11/16/2024. would plan q.8 hour dosing of oral vancomycin starting 11/30 and then decrease to twice daily dosing on 12/07. daily doses starting on 12/14 and then every other day dosing x2 weeks starting on 12/21/2024. - monitor stool output while tapering vanc - Zosyn discontinued - leukocytosis and diarrhea improving - continue Banatrol -Appreciate ID recommendations (2) Acute hypoxic respiratory failure: Code(s): J96.01 - Acute respiratory failure with hypoxia Status: Acute Assessment and Plan: -Pulmonology consulted. Less likely pneumonia, pneumonia specific antibiotics discontinued. Status post thoracentesis on 11/08/2024 showing exudative effusion, not infectious, macrophage predominant, likely related to colitis/fluid overload related to acute kidney injury. - echo on 10/08 demonstrating normal left ventricular function. - CXR 11/19 with persistent left lower lobe atelectasis with associated effusion - CT chest 11/20 with increase in size of moderate-sized bilateral posterior layering pleural effusions with secondary dependent atelectasis including complete collapse of the bilateral lobes - encouraged incentive spirometry, pulmonary hygiene - intermittently requiring oxygen and tachypneic - repeat thoracentesis ordered (3) Pleural effusion: Code(s): J90 - Pleural effusion, not elsewhere classified Status: Acute Assessment and Plan: - management as above (4) Hyponatremia: Code(s): E87.1 - Hypo-osmolality and hyponatremia Status: Acute Assessment and Plan: - nephrology on board. Multiple interventions including dialysis, IV fluids, diuretics, salt tabs, 3% hypertonic with minimal improvement. Na 124 which is minimally improved, but patient's intake is improving so hoping sodium will continue to rise. - Nephrology following (5) Anemia: Code(s): D64.9 - Anemia, unspecified Status: Acute Assessment and Plan: - Hgb 11.7 on admission, trended down to 9.0 11/21. Denied signs of bleeding, - likely multifactorial in setting of renal failure, IV fluids, critical illness - check iron studies (6) Adjustment disorder with depressed mood: Code(s): F43.21 - Adjustment disorder with depressed mood Status: Acute Assessment and Plan: - intermittently refused therapy. She is depressed because she has never been this ill before, relatively healthy previous to this admission. She denies adamantly any suicidal ideation, she also refuses to see Psychiatry or to start any pharmacological therapy. - affect seems to be improving. She worked with therapy 11/19. Encouraged to continue participation. Reassurance provided. - continue trazodone qHS (7) Hypertension: Code(s): I10 - Essential (primary) hypertension Status: Chronic Assessment and Plan: -Lisinopril and spironolactone on hold due to DONOVAN -Amlodipine initially on hold to allow titration of beta-christine. Will resume due to high BP trend. - monitor BP (8) Atrial flutter: Code(s): I48.92 - Unspecified atrial flutter Status: Acute Assessment and Plan: -New diagnosis, now converted to sinus rhythm. -Continue metoprolol 50 mg p.o. b.i.d.. -Digoxin stopped due to renal failure - continue Eliquis -Keep potassium greater than 4 magnesium greater than 2, keep renal failure in consideration when replacing electrolytes (9) Acute kidney injury: Code(s): N17.9 - Acute kidney failure, unspecified Status: Acute Assessment and Plan: -Infection vs Contrast related injury vs prerenal. Creatinine normal 2 days prior to admission Nephrology is following, right IJ Cecil dialysis catheter placed on 11/10/2024. -Dialysis started on 11/10/2024. No dialysis for some time now, Nephrology continues to manage. -Renal ultrasound without obstruction, urine electrolytes pre renal, urine eosinophils negative, CPK normal, mild proteinuria -Holding lisinopril and spironolactone -[place] catheter in place -Follow renal function labs and urine output -Disposition pending. When ready to pull out the IJ, hold Eliquis for at least 24 hours. 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 will follow instruction from ID and further recommendation to follow. Code status: full code DVT prophylaxis: Eliquis Dispo: possibly RO when medically stable. Care coordination following. 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 will follow instruction from ID and further recommendation to follow. Review of Systems Review of Systems: 12 systems were reviewed and are negativ e except for as per HPI. Exam Narrative: Patient is comfortable, NAD HEENT: eyes are clear and none icteric LUNGS:CTA HEART: RR S1S2 ABD: BS+, Soft and nontender Lower extremities: no edema SKIN: nonjaundiced Neuro: grossly intact. Objective Data Vital Signs Vital Signs: Vital Signs - 24 hr 11/22/24 17:41 11/22/24 20:00 11/22/24 20:00 Temperature Pulse Rate 66 59 L Respiratory Rate Blood Pressure Pulse Oximetry Oxygen Delivery Room Air 11/22/24 21:06 11/23/24 00:00 11/23/24 04:00 Temperature 36.4 C Pulse Rate 62 57 L 54 L Respiratory Rate 18 Blood Pressure 161/48 H Pulse Oximetry 94 Oxygen Delivery 11/23/24 05:13 11/23/24 08:00 11/23/24 08:15 Temperature 36.6 C Pulse Rate 59 L 63 Respiratory Rate 18 Blood Pressure 151/46 H Pulse Oximetry 93 Oxygen Delivery Room Air 11/23/24 08:16 11/23/24 12:00 11/23/24 14:00 Temperature 36.3 C L Pulse Rate 64 60 65 Respiratory Rate 16 Blood Pressure 154/51 H Pulse Oximetry 94 Oxygen Delivery 11/23/24 16:00 Temperature Pulse Rate 65 Respiratory Rate Blood Pressure Pulse Oximetry Oxygen Delivery Intake/Output Intake/Output: Intake & Output 11/20/24 11/21/24 11/22/24 11/23/24 23:59 23:59 23:59 23:59 Intake Total 2040 1440 1730 780 Output Total 1000 1900 3 Balance 1040 -460 1727 780 Meds/Results Medications: Active Medications Generic Name Dose Route Start Last Admin Trade Name Freq PRN Reason Stop Dose Admin Acetaminophen 650 mg 11/06/24 12:18 11/09/24 13:38 Acetaminophen 325 Mg Tablet PO 650 mg Q4H PRN Administration Headache Alteplase, Recombinant 2 mg 11/11/24 21:39 11/11/24 22:17 Alteplase 2 Mg Vial (Cathflo) IV PUSH 2 mg ONCE PRN Administration Line Occlusion Apixaban 2.5 mg 11/15/24 21:00 11/20/24 10:28 Apixaban 2.5 Mg Tablet PO 2.5 mg On Hold: 11/20/24 16:42 Q12HR KEVIN Administration Cyclosporine 1 drop 11/03/24 21:00 11/23/24 08:17 Cyclosporine 0.4 Ml Ophth Solution EACH EYE 1 drop Q12HR KEVIN Administration Fidaxomicin 200 mg 11/23/24 13:30 11/23/24 14:17 Fidaxomicin 200 Mg Tablet PO 12/02/24 21:01 200 mg Q12HR KEVIN Administration Metronidazole 500 mg in 100 mls @ 100 mls/hr 11/21/24 14:45 11/23/24 15:18 Flagyl 500 Mg/Iso Soln 100 Ml IVPB 11/25/24 23:59 Infused Q8HR KEVIN Infusion Magnesium Oxide 400 mg 11/24/24 09:00 Magnesium Oxide 400 Mg Tablet PO QAM KEVIN Metoprolol Tartrate 50 mg 11/08/24 09:00 11/23/24 08:16 Metoprolol Tartrate 50 Mg Tab PO 50 mg BID KEVIN Administration Sodium Chloride 10 ml 11/06/24 22:00 11/23/24 14:19 Central Line Flush IV PUSH 10 ml Q8HR KEVIN Administration Sodium Chloride 10 ml 11/06/24 14:29 Central Line Flush IV PUSH PRN PRN with TPN bag changes Sodium Chloride 20 ml 11/06/24 14:29 11/19/24 05:57 Central Line Flush IV PUSH 20 ml PRN PRN Administration after blood draws Sodium Chloride 1 spray 11/15/24 16:13 11/15/24 17:13 Saline 0.65% Rodrigo Soln 44 Ml Btl NASAL 1 spray Q6HR PRN Administration Congestion Sodium Chloride 1 gm 11/17/24 09:00 11/23/24 08:18 Sodium Chloride 1 Gm Tablet PO 1 gm BID KEVIN Administration Trazodone HCl 50 mg 11/03/24 21:00 11/22/24 21:21 Trazodone Hcl 50 Mg Tablet PO 50 mg QHS KEVIN Administration Radiology Results: ITS Impressions Abdomen/Pelvis CT 11/04/24 12:36 IMPRESSION: 1. No evidence of bowel perforation. 2. Persistent severe pancolitis. 3. New small scattered ascites. 4. New small pleural effusions and significant bibasilar atelectasis. Renal Ultrasound 11/04/24 19:07 Impression: Simple appearing left renal cyst. No significant medical renal disease or obstruction Abdomen X-Ray 11/05/24 16:02 Impression: 1. Findings concerning for small bowel obstruction. CT is suggested Chest/Abdomen/Pelvis CT 11/05/24 17:04 IMPRESSION: 1. Diffuse colitis detailed above, correlate for underlying pseudomembranous colitis. No perforation or abscess. Follow-up recommended to assess. 2. CHF with superimposed probable bronchopneumonia. 3. Incidental findings above. Contrast-enhanced MRI recommended Head CT 11/06/24 12:46 Impression: 1.No acute intracranial abnormality. Venous Doppler Study 11/19/24 18:32 Impression: Negative for DVT. Chest CT 11/20/24 16:02 IMPRESSION: 1. Increase in size of moderate sized bilateral posterior layering pleural effusions with secondary dependent atelectasis including complete collapse of the bilateral lower lobes. 2. Moderate amount of ascites in the visualized upper abdomen. 3. Mildly enlarged prevascular lymph node and the anterior mediastinum which is most likely reactive. Thoracentesis Ultrasound 11/21/24 15:20 IMPRESSION: 1. Successful ultrasound-guided thoracentesis yielding 500 mL of yellowish fluid. Chest X-Ray 11/23/24 08:49 IMPRESSION: 1. Persistent large right pleural effusion with associated basilar atelectasis and/or airspace disease. 2. Left lung developing interstitial pulmonary edema and/or pneumonitis. Labs Labs: Laboratory Results - last 24 hr 11/23/24 11/23/24 05:21 10:35 WBC 7.6 RBC 2.88 L Hgb 8.9 L Hct 26.8 L MCV 93.1 MCH 30.9 MCHC 33.2 RDW 14.6 H Plt Count 240 MPV 9.0 Immature Gran % (Auto) 1.1 H Neut % (Auto) 80.5 H Lymph % (Auto) 8.1 L [place] % (Auto) 9.1 H Eos % (Auto) 0.4 Baso % (Auto) 0.8 Lymph # (Auto) 0.61 L [place] # (Auto) 0.7 H Eos # (Auto) 0.0 Baso # (Auto) 0.1 Abs Immat Gran (auto) 0.08 H Absolute Neuts (auto) 6.1 Absolute Nucleated RBC 0.000 Nucleated RBC % 0.0 Sodium 125 L 129 L Potassium 3.4 3.3 L Chloride 101 100 Carbon Dioxide 23 23 Anion Gap 1 L 6 BUN 27 H 26 H Creatinine 0.95 0.96 Estim Creat Clear Calc 45 45 Estimated GFR 57 L 57 L Glucose 119 H 161 H Calcium 7.5 L 7.6 L Magnesium 1.5 L Total Bilirubin 0.4 0.3 AST 19 21 ALT 13 14 Alkaline Phosphatase 54 57 Total Protein 4.5 L 4.8 L Albumin 2.4 L 2.5 L Quality VTE Prophylaxis VTE prophylaxis: mechanical ordered and pharmacologic ordered
[2024-11-23] MEDS: FUROSEMIDE 20 MG TABLET PO (17:25)
--- NOTE | 2024-11-23 19:32 | WPDINFPN2 ---
Progress Note: A&P Assessment and Plan (1) Clostridium difficile colitis: Code(s): A04.72 - Enterocolitis due to Clostridium difficile, not specified as recurrent Status: Acute Assessment and Plan: -Severe C.difficile colitis. Although significant improvement had been seen up until today, frequent large volume watery diarrhea has recurred . (2) Leukocytosis: Code(s): D72.829 - Elevated white blood cell count, unspecified Status: Acute Assessment and Plan: -Reactive from C.difficile infection -now resolved. (3) Diverticulitis large intestine: Code(s): K57.32 - Diverticulitis of large intestine without perforation or abscess without bleeding Status: Acute Assessment and Plan: -Diagnosed one week prior to admission -S/P Augmentin x 5 days prior to admission -Discontinued Zosyn on 11/10/24 as patient has completed 8 day course for diverticulitis (4) Colitis: Code(s): K52.9 - Noninfective gastroenteritis and colitis, unspecified Status: Acute Assessment and Plan: -Pancolitis noted on CT -Due to C.difficile colitis (5) Acute kidney injury: Code(s): N17.9 - Acute kidney failure, unspecified Status: Acute Assessment and Plan: -Management as per Nephrology service -Plans for short-term HD (6) Pleural effusion: Code(s): J90 - Pleural effusion, not elsewhere classified Status: Acute Assessment and Plan: -S/P Left thoracentesis 11/08/24 -Pleural fluid studies not consistent with empyema -Pleural fluid cultures negative for growth -Current CT scan shows persistence of bilateral posterior layering pleural effusions with complete collapse of bilateral lower lobes. -Management as per Pulmonary service Plan -- IV Flagyl added back 11/21 with some improvement. will stop Wednesday if improved Changing po vanc to dificid empirically Will need oral vanc taper after improvement Continue to monitor shortness of breath. No indication to add systemic abx at this point Will follow thoracentesis fluid. -- Monitor abdominal exam. -- continue to monitor stool output. Patient was seen via video telehealth consultation with the assistance of staff. Chart, data, and patient independently reviewed. Patient was located at [facility] while I was located in my [place] office. Received verbal consent from patient. Subjective Date/time seen: 11/23/24 19:32 Interval history: no fever. still wilth loose stools today. no cramping. able to each. Exam Narrative: Awake. oriented x 3 Some conversational dyspnea no phlebitis No rash Abd without rebound Objective Data Vital Signs Vital Signs: Vital Signs - 24 hr 11/22/24 20:00 11/22/24 20:00 11/22/24 21:06 Temperature 36.4 C Pulse Rate 59 L 62 Respiratory Rate 18 Blood Pressure 161/48 H Pulse Oximetry 94 Oxygen Delivery Room Air 11/23/24 00:00 11/23/24 04:00 11/23/24 05:13 Temperature 36.6 C Pulse Rate 57 L 54 L 59 L Respiratory Rate 18 Blood Pressure 151/46 H Pulse Oximetry 93 Oxygen Delivery 11/23/24 08:00 11/23/24 08:15 11/23/24 08:16 Temperature Pulse Rate 63 64 Respiratory Rate Blood Pressure Pulse Oximetry Oxygen Delivery Room Air 11/23/24 12:00 11/23/24 14:00 11/23/24 16:00 Temperature 36.3 C L Pulse Rate 60 65 65 Respiratory Rate 16 Blood Pressure 154/51 H Pulse Oximetry 94 Oxygen Delivery 11/23/24 17:25 Temperature Pulse Rate 70 Respiratory Rate Blood Pressure Pulse Oximetry Oxygen Delivery Intake/Output Intake/Output: Intake & Output 11/20/24 11/21/24 11/22/24 11/23/24 23:59 23:59 23:59 23:59 Intake Total 2040 1440 1730 1020 Output Total 1000 1900 3 3 Balance 1040 -460 1727 1017 Meds/Results Medications: Active Medications Generic Name Dose Route Start Last Admin Trade Name Andreaq PRN Reason Stop Dose Admin Acetaminophen 650 mg 11/06/24 12:18 11/09/24 13:38 Acetaminophen 325 Mg Tablet PO 650 mg Q4H PRN Administration Headache Alteplase, Recombinant 2 mg 11/11/24 21:39 11/11/24 22:17 Alteplase 2 Mg Vial (Cathflo) IV PUSH 2 mg ONCE PRN Administration Line Occlusion Apixaban 2.5 mg 11/15/24 21:00 11/20/24 10:28 Apixaban 2.5 Mg Tablet PO 2.5 mg On Hold: 11/20/24 16:42 Q12HR KEVIN Administration Cyclosporine 1 drop 11/03/24 21:00 11/23/24 08:17 Cyclosporine 0.4 Ml Ophth Solution EACH EYE 1 drop Q12HR KEVIN Administration Fidaxomicin 200 mg 11/23/24 13:30 11/23/24 14:17 Fidaxomicin 200 Mg Tablet PO 12/02/24 21:01 200 mg Q12HR KEVIN Administration Metronidazole 500 mg in 100 mls @ 100 mls/hr 11/21/24 14:45 11/23/24 15:18 Flagyl 500 Mg/Iso Soln 100 Ml IVPB 11/25/24 23:59 Infused Q8HR KEVIN Infusion Magnesium Oxide 400 mg 11/24/24 09:00 Magnesium Oxide 400 Mg Tablet PO QAM KEVIN Metoprolol Tartrate 50 mg 11/08/24 09:00 11/23/24 17:25 Metoprolol Tartrate 50 Mg Tab PO 50 mg BID KEVIN Administration Sodium Chloride 10 ml 11/06/24 22:00 11/23/24 14:19 Central Line Flush IV PUSH 10 ml Q8HR KEVIN Administration Sodium Chloride 10 ml 11/06/24 14:29 Central Line Flush IV PUSH PRN PRN with TPN bag changes Sodium Chloride 20 ml 11/06/24 14:29 11/19/24 05:57 Central Line Flush IV PUSH 20 ml PRN PRN Administration after blood draws Sodium Chloride 1 spray 11/15/24 16:13 11/15/24 17:13 Saline 0.65% Rodrigo Soln 44 Ml Btl NASAL 1 spray Q6HR PRN Administration Congestion Sodium Chloride 1 gm 11/17/24 09:00 11/23/24 17:26 Sodium Chloride 1 Gm Tablet PO 1 gm BID KEVIN Administration Trazodone HCl 50 mg 11/03/24 21:00 11/22/24 21:21 Trazodone Hcl 50 Mg Tablet PO 50 mg QHS KEVIN Administration Radiology Results: ITS Impressions Abdomen/Pelvis CT 11/04/24 12:36 IMPRESSION: 1. No evidence of bowel perforation. 2. Persistent severe pancolitis. 3. New small scattered ascites. 4. New small pleural effusions and significant bibasilar atelectasis. Renal Ultrasound 11/04/24 19:07 Impression: Simple appearing left renal cyst. No significant medical renal disease or obstruction Abdomen X-Ray 11/05/24 16:02 Impression: 1. Findings concerning for small bowel obstruction. CT is suggested Chest/Abdomen/Pelvis CT 11/05/24 17:04 IMPRESSION: 1. Diffuse colitis detailed above, correlate for underlying pseudomembranous colitis. No perforation or abscess. Follow-up recommended to assess. 2. CHF with superimposed probable bronchopneumonia. 3. Incidental findings above. Contrast-enhanced MRI recommended Head CT 11/06/24 12:46 Impression: 1.No acute intracranial abnormality. Venous Doppler Study 11/19/24 18:32 Impression: Negative for DVT. Chest CT 11/20/24 16:02 IMPRESSION: 1. Increase in size of moderate sized bilateral posterior layering pleural effusions with secondary dependent atelectasis including complete collapse of the bilateral lower lobes. 2. Moderate amount of ascites in the visualized upper abdomen. 3. Mildly enlarged prevascular lymph node and the anterior mediastinum which is most likely reactive. Thoracentesis Ultrasound 11/21/24 15:20 IMPRESSION: 1. Successful ultrasound-guided thoracentesis yielding 500 mL of yellowish fluid. Chest X-Ray 11/23/24 08:49 IMPRESSION: 1. Persistent large right pleural effusion with associated basilar atelectasis and/or airspace disease. 2. Left lung developing interstitial pulmonary edema and/or pneumonitis. Labs Labs: Laboratory Results - last 24 hr 11/23/24 11/23/24 05:21 10:35 WBC 7.6 RBC 2.88 L Hgb 8.9 L Hct 26.8 L MCV 93.1 MCH 30.9 MCHC 33.2 RDW 14.6 H Plt Count 240 MPV 9.0 Immature Gran % (Auto) 1.1 H Neut % (Auto) 80.5 H Lymph % (Auto) 8.1 L [place] % (Auto) 9.1 H Eos % (Auto) 0.4 Baso % (Auto) 0.8 Lymph # (Auto) 0.61 L [place] # (Auto) 0.7 H Eos # (Auto) 0.0 Baso # (Auto) 0.1 Abs Immat Gran (auto) 0.08 H Absolute Neuts (auto) 6.1 Absolute Nucleated RBC 0.000 Nucleated RBC % 0.0 Sodium 125 L 129 L Potassium 3.4 3.3 L Chloride 101 100 Carbon Dioxide 23 23 Anion Gap 1 L 6 BUN 27 H 26 H Creatinine 0.95 0.96 Estim Creat Clear Calc 45 45 Estimated GFR 57 L 57 L Glucose 119 H 161 H Calcium 7.5 L 7.6 L Magnesium 1.5 L Total Bilirubin 0.4 0.3 AST 19 21 ALT 13 14 Alkaline Phosphatase 54 57 Total Protein 4.5 L 4.8 L Albumin 2.4 L 2.5 L
[2024-11-24] VITALS (12 sets, daily range): BP systolic 154–179; BP diastolic 48–72; PULSE 54–78; RESP 18; TEMP 36.3–36.9; O2SAT 90–94
[2024-11-24] MEDS: metroNIDAZOLE 500 MG/ISO 100ML 500 MG/100 ML BAG 100 MG IVPB ×2 (05:38→13:04)
[2024-11-24] MEDS: CENTRAL LINE FLUSH 10 ML IV PUSH ×3 (05:39→22:10)
[2024-11-24 05:55] LABS: Hematocrit 27.1 % (37.0-47.0); Hemoglobin 8.6 g/dL (12.0-15.0); Immature Granulocyte Percent A 1.4 % (0-0.5); Lymphocytes Absolute Auto 0.51 K/mm3 (0.9-3.2); Mean Corpuscular HGB Conc 31.7 g/dl (32-36); Mean Corpuscular Hemoglobin 30.4 pg (26-34); Mean Corpuscular Volume 95.8 fl (80-100); Nucleated Red Blood Cells Absolute Auto 0.000 K/mm3 (0.0-0.012); Nucleated Red Blood Cells Perc 0.0 % (0.0-0.2); Platelet Count Result 240 k/mm3 (150-375); Red Blood Count 2.83 M/mm3 (4.2-5.4); White Blood Count 5.7 K/mm3 (4.5-10.0)
[2024-11-24 06:16] LABS: Alanine Aminotransferase 12 U/L (6-35); Albumin Level 2.3 g/dL (3.5-5.1); Alkaline Phosphatase 55 U/L (38-126); Anion Gap 4 mmol/L (4-12); Aspartate Amino Transferase 22 U/L (14-36); Bilirubin,Total 0.2 mg/dL (0.2-1.3); Blood Urea Nitrogen 23 mg/dL (7-17); Calcium 7.6 mg/dL (8.4-10.2); Carbon Dioxide 23 mmol/L (22-30); Chloride 102 mmol/L (98-107); Estimated CRCL calculation 48 ml/min; Estimated Glomerular Filt Rate > 60; Glucose 123 mg/dL (65-110); Magnesium 1.8 mg/dL (1.6-2.3); Potassium 3.7 mmol/L (3.4-5.0); Sodium 129 mmol/L (137-145); Total Protein 4.5 g/dL (6.3-8.2)
[2024-11-24] MEDS: METOPROLOL TARTRATE 50 MG TAB PO ×2 (09:15→17:24)
[2024-11-24] MEDS: SODIUM CHLORIDE 1 GM TABLET PO ×2 (09:15→17:24)
[2024-11-24] MEDS: MAGNESIUM OXIDE 400 MG TABLET PO (09:15)
[2024-11-24] MEDS: cycloSPORINE 0.4 ML OPHTH SOLUTION 1 DROP EACH EYE ×2 (09:15→22:05)
[2024-11-24] MEDS: FIDAXOMICIN 200 MG TABLET PO ×2 (09:15→21:00)
[2024-11-24] MEDS: FUROSEMIDE 20 MG TABLET PO ×2 (10:16→17:24)
--- NOTE | 2024-11-24 11:32 | P.PNNP_ITS ---
Progress Note: A&P Assessment and Plan (1) Acute kidney injury: Code(s): N17.9 - Acute kidney failure, unspecified Status: Acute Assessment and Plan: * stable if not resolved * as noted by admission labs (creatinine of 3.03mg/dL) * creatinine normal 2 days prior to admission * baseline creatinine runs ~ 0.9 - 1.1mg/dL * suspect multifactorial etiology: * prerenal factors * infection/early sepsis (diverticulitis/colitis) * contrast exposure (CT of A/P on 11/01) * relative hypotension on presentation * JAMIE-I/diuretic use prior to admission * urinary retention(?) - difficulty urinating on admission so gamble catheter placed * other (?) * evaluation to date noted: * renal ultrasound without obstruction * urine electrolytes prerenal * urine eosinophils negative * CPK normal * mild proteinuria * holding lisinopril and spironolactone * initiated on SHOER/HD on 11/10 * last HD treatment on 11/14 * not opposed to removal of temporary HD catheter * follow trend of repeat labs and UOP (2) Clostridium difficile colitis: Code(s): A04.72 - Enterocolitis due to Clostridium difficile, not specified as recurrent Status: Acute Assessment and Plan: * slow improvement * demonstrated by positive C. diff toxin assay * also noted by CT imaging to date: * CT of C/A/P (11/05): Diffuse colitis detailed above, correlate for underlying pseudomembranous colitis. No perforation or abscess * CT of A/P (11/04): No evidence of bowel perforation; persistent severe pancolitis * CT of A/P (11/03): Interval progression of radiographically uncomplicated selby colitis which could be infectious, inflammatory or less likely ischemic in etiology * CT of A/P (11/01): Sigmoid diverticulitis. No perforation or abscess * complicated by diverticulitis * follow culture data * follow trend of WBC * on antibiotics * Infectious Disease following (3) Acute hypoxic respiratory failure: Code(s): J96.01 - Acute respiratory failure with hypoxia Status: Acute Assessment and Plan: * improvement noted * multifactorial etiology: * bilateral pleural effusions * atelectasis * fluid overload * atrial flutter with rapid ventricular response * pancolitis * possible pneumonia (?) * s/p thoracentesis (on 11/08) * Pulmonary recommendations noted * CT of chest (on 11/20) noted * s/p repeat thoracentesis on 11/21 * recent CXR noted - started oral lasix (4) Hyponatremia: Code(s): E87.1 - Hypo-osmolality and hyponatremia Status: Acute Assessment and Plan: * slow improvement * as noted on admission * possible chronic component -- sodium seems to run 129 - 136mmol/L since 2021 * presumably worsen by: * DONOVAN/ARF * prerenal factors * pleural effusions * possible pneumonia * urinary retention * mild improvement s/p intial IVF resuscitation * no improvement with repeat trial of IVFs * evaluation to date: * repeat urine electrolytes (11/17) non-prerenal * noted abnormal SPEP and UPEP -- checking immunofixation * TSH/thyroid studies noted * cortisol okay * getting salt tabs + lasix * attempt to wean salt tabs * follow trend of sodium (5) Metabolic acidosis: Code(s): E87.20 - Acidosis, unspecified Status: Acute Assessment and Plan: * resolved * due to DONOVAN/ARF and GI issues/symptoms * fluctuating lactic acid levels noted * follow repeat labs (6) Atrial flutter: Code(s): I48.92 - Unspecified atrial flutter Status: Acute Assessment and Plan: * as noted by events early on 11/05 * rate control strategy * Cardiology recommendations noted * on metoprolol * was on IV amiodarone (temporary measure) * Echo noted (on 11/07) * left ventricular systolic function is hyperdynamic, estimated at > 70% * left ventricular diastolic function is grade I diastolic dysfunction * no aortic valve stenosis * mild tricuspid valve regurgitation * on anticoagulation (7) Elevated troponin: Code(s): R79.89 - Other specified abnormal findings of blood chemistry Status: Acute Assessment and Plan: * due to DONOVAN versus atrial fluttter with RVR * trend noted * Cardiology comments noted (8) Hypertension: Code(s): I10 - Essential (primary) hypertension Status: Chronic Assessment and Plan: * reasonable control * holding JAMIE-I due to #1 * follow trend of hemodynamics Will continue to follow. L Subjective Date/time seen: 11/24/24 11:32 Interval history: Follow-up for acute kidney injury/acute renal failure. Continues to make slow and steady improvement -- less stool output noted; breathing/respiratory status seems better as well; renal function/creatinine stable with noted/rising sodium level as well; no other issues/events overnight or earlier this morning. 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 Objective Data Vital Signs Vital Signs: Vital Signs Temp Pulse Resp BP Pulse Ox O2 Del Method 11/24/24 11:00 78 11/24/24 09:15 Room Air 11/24/24 09:15 66 11/24/24 08:00 63 11/24/24 04:26 97.4 F L 64 18 154/48 H 94 11/24/24 04:00 54 L 11/24/24 00:00 55 L 11/23/24 20:00 71 11/23/24 20:00 Room Air 11/23/24 19:54 97.6 F 66 18 163/48 H 94 Intake/Output Intake/Output: Intake & Output 11/21/24 11/22/24 11/23/24 11/24/24 23:59 23:59 23:59 23:59 Intake Total 1440 1730 1120 1400 Output Total 1900 3 3 1 Balance -460 1727 1117 1399 Meds/Results Medications: Active Medications Generic Name Dose Route Start Last Admin Trade Name Freq PRN Reason Stop Dose Admin Acetaminophen 650 mg 11/06/24 12:18 11/09/24 13:38 Acetaminophen 325 Mg Tablet PO 650 mg Q4H PRN Administration Headache Alteplase, Recombinant 2 mg 11/11/24 21:39 11/11/24 22:17 Alteplase 2 Mg Vial (Cathflo) IV PUSH 2 mg ONCE PRN Administration Line Occlusion Apixaban 2.5 mg 11/15/24 21:00 11/20/24 10:28 Apixaban 2.5 Mg Tablet PO 2.5 mg On Hold: 11/20/24 16:42 Q12HR KEVIN Administration Cyclosporine 1 drop 11/03/24 21:00 11/24/24 09:15 Cyclosporine 0.4 Ml Ophth Solution EACH EYE 1 drop Q12HR KEVIN Administration Fidaxomicin 200 mg 11/23/24 13:30 11/24/24 09:15 Fidaxomicin 200 Mg Tablet PO 12/02/24 21:01 200 mg Q12HR KEVIN Administration Furosemide 20 mg 11/24/24 09:30 11/24/24 17:24 Furosemide 20 Mg Tablet PO 20 mg BID KEVIN Administration Magnesium Oxide 400 mg 11/24/24 09:00 11/24/24 09:15 Magnesium Oxide 400 Mg Tablet PO 400 mg QAM KEVIN Administration Metoprolol Tartrate 50 mg 11/08/24 09:00 11/24/24 17:24 Metoprolol Tartrate 50 Mg Tab PO 50 mg BID KEVIN Administration Sodium Chloride 10 ml 11/06/24 22:00 11/24/24 13:04 Central Line Flush IV PUSH 10 ml Q8HR KEVIN Administration Sodium Chloride 10 ml 11/06/24 14:29 Central Line Flush IV PUSH PRN PRN with TPN bag changes Sodium Chloride 20 ml 11/06/24 14:29 11/19/24 05:57 Central Line Flush IV PUSH 20 ml PRN PRN Administration after blood draws Sodium Chloride 1 spray 11/15/24 16:13 11/15/24 17:13 Saline 0.65% Rodrigo Soln 44 Ml Btl NASAL 1 spray Q6HR PRN Administration Congestion Sodium Chloride 1 gm 11/17/24 09:00 11/24/24 17:24 Sodium Chloride 1 Gm Tablet PO 1 gm BID KEVIN Administration Trazodone HCl 50 mg 11/03/24 21:00 11/23/24 22:01 Trazodone Hcl 50 Mg Tablet PO 50 mg QHS KEVIN Administration Radiology Results: ITS Impressions Abdomen/Pelvis CT 11/04/24 12:36 IMPRESSION: 1. No evidence of bowel perforation. 2. Persistent severe pancolitis. 3. New small scattered ascites. 4. New small pleural effusions and significant bibasilar atelectasis. Renal Ultrasound 11/04/24 19:07 Impression: Simple appearing left renal cyst. No significant medical renal disease or obstruction Abdomen X-Ray 11/05/24 16:02 Impression: 1. Findings concerning for small bowel obstruction. CT is suggested Chest/Abdomen/Pelvis CT 11/05/24 17:04 IMPRESSION: 1. Diffuse colitis detailed above, correlate for underlying pseudomembranous colitis. No perforation or abscess. Follow-up recommended to assess. 2. CHF with superimposed probable bronchopneumonia. 3. Incidental findings above. Contrast-enhanced MRI recommended Head CT 11/06/24 12:46 Impression: 1.No acute intracranial abnormality. Venous Doppler Study 11/19/24 18:32 Impression: Negative for DVT. Chest CT 11/20/24 16:02 IMPRESSION: 1. Increase in size of moderate sized bilateral posterior layering pleural effusions with secondary dependent atelectasis including complete collapse of the bilateral lower lobes. 2. Moderate amount of ascites in the visualized upper abdomen. 3. Mildly enlarged prevascular lymph node and the anterior mediastinum which is most likely reactive. Thoracentesis Ultrasound 11/21/24 15:20 IMPRESSION: 1. Successful ultrasound-guided thoracentesis yielding 500 mL of yellowish fluid. Chest X-Ray 11/23/24 08:49 IMPRESSION: 1. Persistent large right pleural effusion with associated basilar atelectasis and/or airspace disease. 2. Left lung developing interstitial pulmonary edema and/or pneumonitis. Labs Labs: Laboratory Tests 11/24/24 05:42 11/24/24 05:42 Calcium 7.6 L Magnesium 1.8 Total Bilirubin 0.2 AST 22 ALT 12 Alkaline Phosphatase 55 Total Protein 4.5 L Albumin 2.3 L Microbiology 11/08/24 10:58 Thoracentesis Fluid Anaerobic Culture Extend Incubation - Final 11/08/24 10:58 Thoracentesis Fluid Sterile Body Fluid Culture - Final
--- NOTE | 2024-11-24 11:32 | PM.PNNEP ---
Progress Note: A&P Assessment and Plan (1) Acute kidney injury: Code(s): N17.9 - Acute kidney failure, unspecified Status: Acute Assessment and Plan: stable if not resolved as noted by admission labs (creatinine of 3.03mg/dL) creatinine normal 2 days prior to admission baseline creatinine runs ~ 0.9 - 1.1mg/dL suspect multifactorial etiology: prerenal factors infection/early sepsis (diverticulitis/colitis) contrast exposure (CT of A/P on 11/01) relative hypotension on presentation JAMIE-I/diuretic use prior to admission urinary retention(?) - difficulty urinating on admission so gamble catheter placed other (?) evaluation to date noted: renal ultrasound without obstruction urine electrolytes prerenal urine eosinophils negative CPK normal mild proteinuria holding lisinopril and spironolactone initiated on [employer]/HD on 11/10 last HD treatment on 11/14 not opposed to removal of temporary HD catheter follow trend of repeat labs and UOP (2) Clostridium difficile colitis: Code(s): A04.72 - Enterocolitis due to Clostridium difficile, not specified as recurrent Status: Acute Assessment and Plan: slow improvement demonstrated by positive C. diff toxin assay also noted by CT imaging to date: CT of C/A/P (11/05): Diffuse colitis detailed above, correlate for underlying pseudomembranous colitis. No perforation or abscess CT of A/P (11/04): No evidence of bowel perforation; persistent severe pancolitis CT of A/P (11/03): Interval progression of radiographically uncomplicated selby colitis which could be infectious, inflammatory or less likely ischemic in etiology CT of A/P (11/01): Sigmoid diverticulitis. No perforation or abscess complicated by diverticulitis follow culture data follow trend of WBC on antibiotics Infectious Disease following (3) Acute hypoxic respiratory failure: Code(s): J96.01 - Acute respiratory failure with hypoxia Status: Acute Assessment and Plan: improvement noted multifactorial etiology: bilateral pleural effusions atelectasis fluid overload atrial flutter with rapid ventricular response pancolitis possible pneumonia (?) s/p thoracentesis (on 11/08) Pulmonary recommendations noted CT of chest (on 11/20) noted s/p repeat thoracentesis on 11/21 recent CXR noted - started oral lasix (4) Hyponatremia: Code(s): E87.1 - Hypo-osmolality and hyponatremia Status: Acute Assessment and Plan: slow improvement as noted on admission possible chronic component -- sodium seems to run 129 - 136mmol/L since 2021 presumably worsen by: DONOVAN/ARF prerenal factors pleural effusions possible pneumonia urinary retention mild improvement s/p intial IVF resuscitation no improvement with repeat trial of IVFs evaluation to date: repeat urine electrolytes (11/17) non-prerenal noted abnormal SPEP and UPEP -- checking immunofixation TSH/thyroid studies noted cortisol okay getting salt tabs + lasix attempt to wean salt tabs follow trend of sodium (5) Metabolic acidosis: Code(s): E87.20 - Acidosis, unspecified Status: Acute Assessment and Plan: resolved due to DONOVAN/ARF and GI issues/symptoms fluctuating lactic acid levels noted follow repeat labs (6) Atrial flutter: Code(s): I48.92 - Unspecified atrial flutter Status: Acute Assessment and Plan: as noted by events early on 11/05 rate control strategy Cardiology recommendations noted on metoprolol was on IV amiodarone (temporary measure) Echo noted (on 11/07) left ventricular systolic function is hyperdynamic, estimated at > 70% left ventricular diastolic function is grade I diastolic dysfunction no aortic valve stenosis mild tricuspid valve regurgitation on anticoagulation (7) Elevated troponin: Code(s): R79.89 - Other specified abnormal findings of blood chemistry Status: Acute Assessment and Plan: due to DONOVAN versus atrial fluttter with RVR trend noted Cardiology comments noted (8) Hypertension: Code(s): I10 - Essential (primary) hypertension Status: Chronic Assessment and Plan: reasonable control holding JAMIE-I due to #1 follow trend of hemodynamics Will continue to follow. Subjective Date/time seen: 11/24/24 11:32 Interval history: Follow-up for acute kidney injury/acute renal failure. Continues to make slow and steady improvement -- less stool output noted; breathing/respiratory status seems better as well; renal function/creatinine stable with noted/rising sodium level as well; no other issues/events overnight or earlier this morning. 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 Objective Data Vital Signs Vital Signs: Vital Signs Temp Pulse Resp BP Pulse Ox O2 Del Method 11/24/24 11:00 78 11/24/24 09:15 Room Air 11/24/24 09:15 66 11/24/24 08:00 63 11/24/24 04:26 97.4 F L 64 18 154/48 H 94 11/24/24 04:00 54 L 11/24/24 00:00 55 L 11/23/24 20:00 71 11/23/24 20:00 Room Air 11/23/24 19:54 97.6 F 66 18 163/48 H 94 Intake/Output Intake/Output: Intake & Output 11/21/24 11/22/24 11/23/24 11/24/24 23:59 23:59 23:59 23:59 Intake Total 1440 1730 1120 1400 Output Total 1900 3 3 1 Balance -460 1727 1117 1399 Meds/Results Medications: Active Medications Generic Name Dose Route Start Last Admin Trade Name Freq PRN Reason Stop Dose Admin Acetaminophen 650 mg 11/06/24 12:18 11/09/24 13:38 Acetaminophen 325 Mg Tablet PO 650 mg Q4H PRN Administration Headache Alteplase, Recombinant 2 mg 11/11/24 21:39 11/11/24 22:17 Alteplase 2 Mg Vial (Cathflo) IV PUSH 2 mg ONCE PRN Administration Line Occlusion Apixaban 2.5 mg 11/15/24 21:00 11/20/24 10:28 Apixaban 2.5 Mg Tablet PO 2.5 mg On Hold: 11/20/24 16:42 Q12HR KEVIN Administration Cyclosporine 1 drop 11/03/24 21:00 11/24/24 09:15 Cyclosporine 0.4 Ml Ophth Solution EACH EYE 1 drop Q12HR KEVIN Administration Fidaxomicin 200 mg 11/23/24 13:30 11/24/24 09:15 Fidaxomicin 200 Mg Tablet PO 12/02/24 21:01 200 mg Q12HR KEVIN Administration Furosemide 20 mg 11/24/24 09:30 11/24/24 17:24 Furosemide 20 Mg Tablet PO 20 mg BID KEVIN Administration Magnesium Oxide 400 mg 11/24/24 09:00 11/24/24 09:15 Magnesium Oxide 400 Mg Tablet PO 400 mg QAM KEVIN Administration Metoprolol Tartrate 50 mg 11/08/24 09:00 11/24/24 17:24 Metoprolol Tartrate 50 Mg Tab PO 50 mg BID KEVIN Administration Sodium Chloride 10 ml 11/06/24 22:00 11/24/24 13:04 Central Line Flush IV PUSH 10 ml Q8HR KEVIN Administration Sodium Chloride 10 ml 11/06/24 14:29 Central Line Flush IV PUSH PRN PRN with TPN bag changes Sodium Chloride 20 ml 11/06/24 14:29 11/19/24 05:57 Central Line Flush IV PUSH 20 ml PRN PRN Administration after blood draws Sodium Chloride 1 spray 11/15/24 16:13 11/15/24 17:13 Saline 0.65% Rodrigo Soln 44 Ml Btl NASAL 1 spray Q6HR PRN Administration Congestion Sodium Chloride 1 gm 11/17/24 09:00 11/24/24 17:24 Sodium Chloride 1 Gm Tablet PO 1 gm BID KEVIN Administration Trazodone HCl 50 mg 11/03/24 21:00 11/23/24 22:01 Trazodone Hcl 50 Mg Tablet PO 50 mg QHS KEVIN Administration Radiology Results: ITS Impressions Abdomen/Pelvis CT 11/04/24 12:36 IMPRESSION: 1. No evidence of bowel perforation. 2. Persistent severe pancolitis. 3. New small scattered ascites. 4. New small pleural effusions and significant bibasilar atelectasis. Renal Ultrasound 11/04/24 19:07 Impression: Simple appearing left renal cyst. No significant medical renal disease or obstruction Abdomen X-Ray 11/05/24 16:02 Impression: 1. Findings concerning for small bowel obstruction. CT is suggested Chest/Abdomen/Pelvis CT 11/05/24 17:04 IMPRESSION: 1. Diffuse colitis detailed above, correlate for underlying pseudomembranous colitis. No perforation or abscess. Follow-up recommended to assess. 2. CHF with superimposed probable bronchopneumonia. 3. Incidental findings above. Contrast-enhanced MRI recommended Head CT 11/06/24 12:46 Impression: 1.No acute intracranial abnormality. Venous Doppler Study 11/19/24 18:32 Impression: Negative for DVT. Chest CT 11/20/24 16:02 IMPRESSION: 1. Increase in size of moderate sized bilateral posterior layering pleural effusions with secondary dependent atelectasis including complete collapse of the bilateral lower lobes. 2. Moderate amount of ascites in the visualized upper abdomen. 3. Mildly enlarged prevascular lymph node and the anterior mediastinum which is most likely reactive. Thoracentesis Ultrasound 11/21/24 15:20 IMPRESSION: 1. Successful ultrasound-guided thoracentesis yielding 500 mL of yellowish fluid. Chest X-Ray 11/23/24 08:49 IMPRESSION: 1. Persistent large right pleural effusion with associated basilar atelectasis and/or airspace disease. 2. Left lung developing interstitial pulmonary edema and/or pneumonitis. Labs Labs: Laboratory Tests 11/24/24 05:42 11/24/24 05:42 Calcium 7.6 L Magnesium 1.8 Total Bilirubin 0.2 AST 22 ALT 12 Alkaline Phosphatase 55 Total Protein 4.5 L Albumin 2.3 L Microbiology 11/08/24 10:58 Thoracentesis Fluid Anaerobic Culture Extend Incubation - Final 11/08/24 10:58 Thoracentesis Fluid Sterile Body Fluid Culture - Final
--- NOTE | 2024-11-24 13:49 | P.PNIM_ITS ---
Progress Note: A&P Assessment and Plan (1) Clostridium difficile colitis: Code(s): A04.72 - Enterocolitis due to Clostridium difficile, not specified as recurrent Status: Acute Assessment and Plan: - Metronidazole complete from 11/08/2024 to 11/15/2024 - per ID: maintain planned pulse/ taper with oral vancomycin. Currently at 250 mg Q 6 hours changed at 11/16/2024. would plan q.8 hour dosing of oral vancomycin starting 11/30 and then decrease to twice daily dosing on 12/07. daily doses starting on 12/14 and then every other day dosing x2 weeks starting on 12/21/2024. - monitor stool output while tapering vanc - Zosyn discontinued - leukocytosis and diarrhea improving - continue Banatrol -Appreciate ID recommendations (2) Acute hypoxic respiratory failure: Code(s): J96.01 - Acute respiratory failure with hypoxia Status: Acute Assessment and Plan: -Pulmonology consulted. Less likely pneumonia, pneumonia specific antibiotics discontinued. Status post thoracentesis on 11/08/2024 showing exudative effusion, not infectious, macrophage predominant, likely related to colitis/fluid overload related to acute kidney injury. - echo on 10/08 demonstrating normal left ventricular function. - CXR 11/19 with persistent left lower lobe atelectasis with associated effusion - CT chest 11/20 with increase in size of moderate-sized bilateral posterior layering pleural effusions with secondary dependent atelectasis including complete collapse of the bilateral lobes - encouraged incentive spirometry, pulmonary hygiene - intermittently requiring oxygen and tachypneic - repeat thoracentesis ordered (3) Pleural effusion: Code(s): J90 - Pleural effusion, not elsewhere classified Status: Acute Assessment and Plan: - management as above (4) Hyponatremia: Code(s): E87.1 - Hypo-osmolality and hyponatremia Status: Acute Assessment and Plan: - nephrology on board. Multiple interventions including dialysis, IV fluids, diuretics, salt tabs, 3% hypertonic with minimal improvement. Na 124 which is minimally improved, but patient's intake is improving so hoping sodium will continue to rise. - Nephrology following (5) Anemia: Code(s): D64.9 - Anemia, unspecified Status: Acute Assessment and Plan: - Hgb 11.7 on admission, trended down to 9.0 11/21. Denied signs of bleeding, - likely multifactorial in setting of renal failure, IV fluids, critical illness - check iron studies (6) Adjustment disorder with depressed mood: Code(s): F43.21 - Adjustment disorder with depressed mood Status: Acute Assessment and Plan: - intermittently refused therapy. She is depressed because she has never been this ill before, relatively healthy previous to this admission. She denies adamantly any suicidal ideation, she also refuses to see Psychiatry or to start any pharmacological therapy. - affect seems to be improving. She worked with therapy 11/19. Encouraged to continue participation. Reassurance provided. - continue trazodone qHS (7) Hypertension: Code(s): I10 - Essential (primary) hypertension Status: Chronic Assessment and Plan: -Lisinopril and spironolactone on hold due to DONOVAN -Amlodipine initially on hold to allow titration of beta-christine. Will resume due to high BP trend. - monitor BP (8) Atrial flutter: Code(s): I48.92 - Unspecified atrial flutter Status: Acute Assessment and Plan: -New diagnosis, now converted to sinus rhythm. -Continue metoprolol 50 mg p.o. b.i.d.. -Digoxin stopped due to renal failure - continue Eliquis -Keep potassium greater than 4 magnesium greater than 2, keep renal failure in consideration when replacing electrolytes (9) Acute kidney injury: Code(s): N17.9 - Acute kidney failure, unspecified Status: Acute Assessment and Plan: -Infection vs Contrast related injury vs prerenal. Creatinine normal 2 days prior to admission Nephrology is following, right IJ Cecil dialysis catheter placed on 11/10/2024. -Dialysis started on 11/10/2024. No dialysis for some time now, Nephrology continues to manage. -Renal ultrasound without obstruction, urine electrolytes pre renal, urine eosinophils negative, CPK normal, mild proteinuria -Holding lisinopril and spironolactone -Hol[place] catheter in place -Follow renal function labs and urine output -Disposition pending. When ready to pull out the IJ, hold Eliquis for at least 24 hours. 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 will follow instruction from ID and further recommendation to follow. Code status: full code DVT prophylaxis: Eliquis Dispo: possibly RO when medically stable. Care coordination following. 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 will follow instruction from ID and further recommendation to follow. Review of Systems Review of Systems: 12 systems were reviewed and are negativ e except for as per HPI. All systems reviewed & are unremarkable except as noted in HPI and below (Subjective) Exam Narrative: Patient is comfortable, NAD HEENT: eyes are clear and none icteric LUNGS:CTA HEART: RR S1S2 ABD: BS+, Soft and nontender Lower extremities: no edema SKIN: nonjaundiced Neuro: grossly intact. Objective Data Vital Signs Vital Signs: Vital Signs - 24 hr 11/23/24 14:00 11/23/24 16:00 11/23/24 17:25 Temperature 36.3 C L Pulse Rate 65 65 70 Respiratory Rate 16 Blood Pressure 154/51 H Pulse Oximetry 94 Oxygen Delivery 11/23/24 19:54 11/23/24 20:00 11/23/24 20:00 Temperature 36.4 C Pulse Rate 66 71 Respiratory Rate 18 Blood Pressure 163/48 H Pulse Oximetry 94 Oxygen Delivery Room Air 11/24/24 00:00 11/24/24 04:00 11/24/24 04:26 Temperature 36.3 C L Pulse Rate 55 L 54 L 64 Respiratory Rate 18 Blood Pressure 154/48 H Pulse Oximetry 94 Oxygen Delivery 11/24/24 08:00 11/24/24 09:15 11/24/24 09:15 Temperature Pulse Rate 63 66 Respiratory Rate Blood Pressure Pulse Oximetry Oxygen Delivery Room Air 11/24/24 12:00 Temperature Pulse Rate 78 Respiratory Rate Blood Pressure Pulse Oximetry Oxygen Delivery Intake/Output Intake/Output: Intake & Output 11/21/24 11/22/24 11/23/24 11/24/24 23:59 23:59 23:59 23:59 Intake Total 1440 1730 1120 1160 Output Total 1900 3 3 1 Balance -460 1727 1117 1159 Meds/Results Medications: Active Medications Generic Name Dose Route Start Last Admin Trade Name Freq PRN Reason Stop Dose Admin Acetaminophen 650 mg 11/06/24 12:18 11/09/24 13:38 Acetaminophen 325 Mg Tablet PO 650 mg Q4H PRN Administration Headache Alteplase, Recombinant 2 mg 11/11/24 21:39 11/11/24 22:17 Alteplase 2 Mg Vial (Cathflo) IV PUSH 2 mg ONCE PRN Administration Line Occlusion Apixaban 2.5 mg 11/15/24 21:00 11/20/24 10:28 Apixaban 2.5 Mg Tablet PO 2.5 mg On Hold: 11/20/24 16:42 Q12HR KEVIN Administration Cyclosporine 1 drop 11/03/24 21:00 11/24/24 09:15 Cyclosporine 0.4 Ml Ophth Solution EACH EYE 1 drop Q12HR KEVIN Administration Fidaxomicin 200 mg 11/23/24 13:30 11/24/24 09:15 Fidaxomicin 200 Mg Tablet PO 12/02/24 21:01 200 mg Q12HR KEVIN Administration Furosemide 20 mg 11/24/24 09:30 11/24/24 10:16 Furosemide 20 Mg Tablet PO 20 mg BID KEVIN Administration Magnesium Oxide 400 mg 11/24/24 09:00 11/24/24 09:15 Magnesium Oxide 400 Mg Tablet PO 400 mg QAM KEVIN Administration Metoprolol Tartrate 50 mg 11/08/24 09:00 11/24/24 09:15 Metoprolol Tartrate 50 Mg Tab PO 50 mg BID KEVIN Administration Sodium Chloride 10 ml 11/06/24 22:00 11/24/24 13:04 Central Line Flush IV PUSH 10 ml Q8HR KEVIN Administration Sodium Chloride 10 ml 11/06/24 14:29 Central Line Flush IV PUSH PRN PRN with TPN bag changes Sodium Chloride 20 ml 11/06/24 14:29 11/19/24 05:57 Central Line Flush IV PUSH 20 ml PRN PRN Administration after blood draws Sodium Chloride 1 spray 11/15/24 16:13 11/15/24 17:13 Saline 0.65% Rodrigo Soln 44 Ml Btl NASAL 1 spray Q6HR PRN Administration Congestion Sodium Chloride 1 gm 11/17/24 09:00 11/24/24 09:15 Sodium Chloride 1 Gm Tablet PO 1 gm BID KEVIN Administration Trazodone HCl 50 mg 11/03/24 21:00 11/23/24 22:01 Trazodone Hcl 50 Mg Tablet PO 50 mg QHS KEVIN Administration Radiology Results: ITS Impressions Abdomen/Pelvis CT 11/04/24 12:36 IMPRESSION: 1. No evidence of bowel perforation. 2. Persistent severe pancolitis. 3. New small scattered ascites. 4. New small pleural effusions and significant bibasilar atelectasis. Renal Ultrasound 11/04/24 19:07 Impression: Simple appearing left renal cyst. No significant medical renal disease or obstruction Abdomen X-Ray 11/05/24 16:02 Impression: 1. Findings concerning for small bowel obstruction. CT is suggested Chest/Abdomen/Pelvis CT 11/05/24 17:04 IMPRESSION: 1. Diffuse colitis detailed above, correlate for underlying pseudomembranous colitis. No perforation or abscess. Follow-up recommended to assess. 2. CHF with superimposed probable bronchopneumonia. 3. Incidental findings above. Contrast-enhanced MRI recommended Head CT 11/06/24 12:46 Impression: 1.No acute intracranial abnormality. Venous Doppler Study 11/19/24 18:32 Impression: Negative for DVT. Chest CT 11/20/24 16:02 IMPRESSION: 1. Increase in size of moderate sized bilateral posterior layering pleural effusions with secondary dependent atelectasis including complete collapse of the bilateral lower lobes. 2. Moderate amount of ascites in the visualized upper abdomen. 3. Mildly enlarged prevascular lymph node and the anterior mediastinum which is most likely reactive. Thoracentesis Ultrasound 11/21/24 15:20 IMPRESSION: 1. Successful ultrasound-guided thoracentesis yielding 500 mL of yellowish fluid. Chest X-Ray 11/23/24 08:49 IMPRESSION: 1. Persistent large right pleural effusion with associated basilar atelectasis and/or airspace disease. 2. Left lung developing interstitial pulmonary edema and/or pneumonitis. Labs Labs: Laboratory Results - last 24 hr 11/24/24 05:42 WBC 5.7 RBC 2.83 L Hgb 8.6 L Hct 27.1 L MCV 95.8 MCH 30.4 MCHC 31.7 L RDW 14.6 H Plt Count 240 MPV 9.3 Immature Gran % (Auto) 1.4 H Neut % (Auto) 76.6 H Lymph % (Auto) 8.9 L [place] % (Auto) 10.5 H Eos % (Auto) 1.2 Baso % (Auto) 1.4 H Lymph # (Auto) 0.51 L [place] # (Auto) 0.6 Eos # (Auto) 0.1 Baso # (Auto) 0.1 Abs Immat Gran (auto) 0.08 H Absolute Neuts (auto) 4.4 Absolute Nucleated RBC 0.000 Nucleated RBC % 0.0 Sodium 129 L Potassium 3.7 Chloride 102 Carbon Dioxide 23 Anion Gap 4 BUN 23 H Creatinine 0.89 Estim Creat Clear Calc 48 Estimated GFR > 60 Glucose 123 H Calcium 7.6 L Magnesium 1.8 Total Bilirubin 0.2 AST 22 ALT 12 Alkaline Phosphatase 55 Total Protein 4.5 L Albumin 2.3 L Quality VTE Prophylaxis VTE prophylaxis: mechanical ordered and pharmacologic ordered
--- NOTE | 2024-11-24 18:07 | P.PNINF_ITS ---
Progress Note: A&P Assessment and Plan (1) Clostridium difficile colitis: Code(s): A04.72 - Enterocolitis due to Clostridium difficile, not specified as recurrent Status: Acute Assessment and Plan: -Severe C.difficile colitis. Although significant improvement had been seen up until today, frequent large volume watery diarrhea has recurred . (2) Leukocytosis: Code(s): D72.829 - Elevated white blood cell count, unspecified Status: Acute Assessment and Plan: -Reactive from C.difficile infection -now resolved. (3) Diverticulitis large intestine: Code(s): K57.32 - Diverticulitis of large intestine without perforation or abscess without bleeding Status: Acute Assessment and Plan: -Diagnosed one week prior to admission -S/P Augmentin x 5 days prior to admission -Discontinued Zosyn on 11/10/24 as patient has completed 8 day course for diverticulitis (4) Colitis: Code(s): K52.9 - Noninfective gastroenteritis and colitis, unspecified Status: Acute Assessment and Plan: -Pancolitis noted on CT -Due to C.difficile colitis (5) Acute kidney injury: Code(s): N17.9 - Acute kidney failure, unspecified Status: Acute Assessment and Plan: -Management as per Nephrology service -Plans for short-term HD (6) Pleural effusion: Code(s): J90 - Pleural effusion, not elsewhere classified Status: Acute Assessment and Plan: -S/P Left thoracentesis 11/08/24 -Pleural fluid studies not consistent with empyema -Pleural fluid cultures negative for growth -Current CT scan shows persistence of bilateral posterior layering pleural effusions with complete collapse of bilateral lower lobes. -Management as per Pulmonary service Plan -- continue Dificid trial. Will see if pharmacy able to fill outpatient so patient can take with her to skilled facility to complete 10 day total course. Stop IV Flagyl. Will need oral vanc taper after improvement We can consider fecal transplant options in the outpatient setting Continue to monitor shortness of breath. No indication to add systemic abx at this point Will follow thoracentesis fluid. -- Monitor abdominal exam. -- continue to monitor stool output. Patient was seen via video telehealth consultation with the assistance of staff. Chart, data, and patient independently reviewed. Patient was located at [facility] while I was located in my [place] office. Received verbal consent from patient. Subjective Date/time seen: 11/24/24 18:07 Interval history: continues to do well. Less short of breath overall. Decreased stool output. Had some semi formed stools. Exam Narrative: Awake. oriented x 3 Today, she is much less short of breath no phlebitis No rash sitting up in bed Objective Data Vital Signs Vital Signs: Vital Signs - 24 hr 11/23/24 19:54 11/23/24 20:00 11/23/24 20:00 Temperature 36.4 C Pulse Rate 66 71 Respiratory Rate 18 Blood Pressure 163/48 H Pulse Oximetry 94 Oxygen Delivery Room Air 11/24/24 00:00 11/24/24 04:00 11/24/24 04:26 Temperature 36.3 C L Pulse Rate 55 L 54 L 64 Respiratory Rate 18 Blood Pressure 154/48 H Pulse Oximetry 94 Oxygen Delivery 11/24/24 08:00 11/24/24 09:15 11/24/24 09:15 Temperature Pulse Rate 63 66 Respiratory Rate Blood Pressure Pulse Oximetry Oxygen Delivery Room Air 11/24/24 12:00 11/24/24 14:00 11/24/24 16:00 Temperature 36.9 C Pulse Rate 78 69 67 Respiratory Rate 18 Blood Pressure 166/52 H Pulse Oximetry 93 Oxygen Delivery 11/24/24 17:24 Temperature Pulse Rate 67 Respiratory Rate Blood Pressure Pulse Oximetry Oxygen Delivery Intake/Output Intake/Output: Intake & Output 11/21/24 11/22/24 11/23/24 11/24/24 23:59 23:59 23:59 23:59 Intake Total 1440 1730 1120 1160 Output Total 1900 3 3 1 Balance -460 1727 1117 1159 Meds/Results Medications: Active Medications Generic Name Dose Route Start Last Admin Trade Name Freq PRN Reason Stop Dose Admin Acetaminophen 650 mg 11/06/24 12:18 11/09/24 13:38 Acetaminophen 325 Mg Tablet PO 650 mg Q4H PRN Administration Headache Alteplase, Recombinant 2 mg 11/11/24 21:39 11/11/24 22:17 Alteplase 2 Mg Vial (Cathflo) IV PUSH 2 mg ONCE PRN Administration Line Occlusion Apixaban 2.5 mg 11/15/24 21:00 11/20/24 10:28 Apixaban 2.5 Mg Tablet PO 2.5 mg On Hold: 11/20/24 16:42 Q12HR KEVIN Administration Cyclosporine 1 drop 11/03/24 21:00 11/24/24 09:15 Cyclosporine 0.4 Ml Ophth Solution EACH EYE 1 drop Q12HR KEVIN Administration Fidaxomicin 200 mg 11/23/24 13:30 11/24/24 09:15 Fidaxomicin 200 Mg Tablet PO 12/02/24 21:01 200 mg Q12HR KEVIN Administration Furosemide 20 mg 11/24/24 09:30 11/24/24 17:24 Furosemide 20 Mg Tablet PO 20 mg BID KEVIN Administration Magnesium Oxide 400 mg 11/24/24 09:00 11/24/24 09:15 Magnesium Oxide 400 Mg Tablet PO 400 mg QAM KEVIN Administration Metoprolol Tartrate 50 mg 11/08/24 09:00 11/24/24 17:24 Metoprolol Tartrate 50 Mg Tab PO 50 mg BID KEVIN Administration Sodium Chloride 10 ml 11/06/24 22:00 11/24/24 13:04 Central Line Flush IV PUSH 10 ml Q8HR KEVIN Administration Sodium Chloride 10 ml 11/06/24 14:29 Central Line Flush IV PUSH PRN PRN with TPN bag changes Sodium Chloride 20 ml 11/06/24 14:29 11/19/24 05:57 Central Line Flush IV PUSH 20 ml PRN PRN Administration after blood draws Sodium Chloride 1 spray 11/15/24 16:13 11/15/24 17:13 Saline 0.65% Rodrigo Soln 44 Ml Btl NASAL 1 spray Q6HR PRN Administration Congestion Sodium Chloride 1 gm 11/17/24 09:00 11/24/24 17:24 Sodium Chloride 1 Gm Tablet PO 1 gm BID KEVIN Administration Trazodone HCl 50 mg 11/03/24 21:00 11/23/24 22:01 Trazodone Hcl 50 Mg Tablet PO 50 mg QHS KEVIN Administration Radiology Results: ITS Impressions Abdomen/Pelvis CT 11/04/24 12:36 IMPRESSION: 1. No evidence of bowel perforation. 2. Persistent severe pancolitis. 3. New small scattered ascites. 4. New small pleural effusions and significant bibasilar atelectasis. Renal Ultrasound 11/04/24 19:07 Impression: Simple appearing left renal cyst. No significant medical renal disease or obstruction Abdomen X-Ray 11/05/24 16:02 Impression: 1. Findings concerning for small bowel obstruction. CT is suggested Chest/Abdomen/Pelvis CT 11/05/24 17:04 IMPRESSION: 1. Diffuse colitis detailed above, correlate for underlying pseudomembranous colitis. No perforation or abscess. Follow-up recommended to assess. 2. CHF with superimposed probable bronchopneumonia. 3. Incidental findings above. Contrast-enhanced MRI recommended Head CT 11/06/24 12:46 Impression: 1.No acute intracranial abnormality. Venous Doppler Study 11/19/24 18:32 Impression: Negative for DVT. Chest CT 11/20/24 16:02 IMPRESSION: 1. Increase in size of moderate sized bilateral posterior layering pleural effusions with secondary dependent atelectasis including complete collapse of the bilateral lower lobes. 2. Moderate amount of ascites in the visualized upper abdomen. 3. Mildly enlarged prevascular lymph node and the anterior mediastinum which is most likely reactive. Thoracentesis Ultrasound 11/21/24 15:20 IMPRESSION: 1. Successful ultrasound-guided thoracentesis yielding 500 mL of yellowish fluid. Chest X-Ray 11/23/24 08:49 IMPRESSION: 1. Persistent large right pleural effusion with associated basilar atelectasis and/or airspace disease. 2. Left lung developing interstitial pulmonary edema and/or pneumonitis. Labs Labs: Laboratory Results - last 24 hr 11/24/24 05:42 WBC 5.7 RBC 2.83 L Hgb 8.6 L Hct 27.1 L MCV 95.8 MCH 30.4 MCHC 31.7 L RDW 14.6 H Plt Count 240 MPV 9.3 Immature Gran % (Auto) 1.4 H Neut % (Auto) 76.6 H Lymph % (Auto) 8.9 L [place] % (Auto) 10.5 H Eos % (Auto) 1.2 Baso % (Auto) 1.4 H Lymph # (Auto) 0.51 L [place] # (Auto) 0.6 Eos # (Auto) 0.1 Baso # (Auto) 0.1 Abs Immat Gran (auto) 0.08 H Absolute Neuts (auto) 4.4 Absolute Nucleated RBC 0.000 Nucleated RBC % 0.0 Sodium 129 L Potassium 3.7 Chloride 102 Carbon Dioxide 23 Anion Gap 4 BUN 23 H Creatinine 0.89 Estim Creat Clear Calc 48 Estimated GFR > 60 Glucose 123 H Calcium 7.6 L Magnesium 1.8 Total Bilirubin 0.2 AST 22 ALT 12 Alkaline Phosphatase 55 Total Protein 4.5 L Albumin 2.3 L
[2024-11-24] MEDS: ACETAMINOPHEN 325 MG TABLET 650 MG PO (20:59)
[2024-11-25] VITALS (12 sets, daily range): BP systolic 159–196; BP diastolic 48–62; PULSE 60–74; RESP 16–18; TEMP 36.4–37.1; O2SAT 90–93
[2024-11-25] MEDS: CENTRAL LINE FLUSH 10 ML IV PUSH ×3 (05:31→20:52)
[2024-11-25 05:34] LABS: Hematocrit 27.3 % (37.0-47.0); Hemoglobin 8.8 g/dL (12.0-15.0); Immature Granulocyte Percent A 1.3 % (0-0.5); Lymphocytes Absolute Auto 0.50 K/mm3 (0.9-3.2); Mean Corpuscular HGB Conc 32.2 g/dl (32-36); Mean Corpuscular Hemoglobin 30.7 pg (26-34); Mean Corpuscular Volume 95.1 fl (80-100); Nucleated Red Blood Cells Absolute Auto 0.000 K/mm3 (0.0-0.012); Nucleated Red Blood Cells Perc 0.0 % (0.0-0.2); Platelet Count Result 225 k/mm3 (150-375); Red Blood Count 2.87 M/mm3 (4.2-5.4); White Blood Count 5.3 K/mm3 (4.5-10.0)
[2024-11-25 05:51] LABS: Alanine Aminotransferase 15 U/L (6-35); Albumin Level 2.3 g/dL (3.5-5.1); Alkaline Phosphatase 54 U/L (38-126); Anion Gap 3 mmol/L (4-12); Aspartate Amino Transferase 29 U/L (14-36); Bilirubin,Total 0.2 mg/dL (0.2-1.3); Blood Urea Nitrogen 21 mg/dL (7-17); Calcium 7.5 mg/dL (8.4-10.2); Carbon Dioxide 26 mmol/L (22-30); Chloride 100 mmol/L (98-107); Estimated CRCL calculation 48 ml/min; Estimated Glomerular Filt Rate > 60; Glucose 120 mg/dL (65-110); Magnesium 1.5 mg/dL (1.6-2.3); Potassium 3.7 mmol/L (3.4-5.0); Sodium 129 mmol/L (137-145); Total Protein 4.6 g/dL (6.3-8.2)
[2024-11-25] MEDS: MAGNESIUM SULF 2 GM/WATER 50ML 2 GM/50 ML BAG IVPB (09:14)
[2024-11-25] MEDS: SODIUM CHLORIDE 1 GM TABLET PO ×2 (09:15→17:27)
[2024-11-25] MEDS: cycloSPORINE 0.4 ML OPHTH SOLUTION 1 DROP EACH EYE ×2 (09:15→20:57)
[2024-11-25] MEDS: MAGNESIUM OXIDE 400 MG TABLET PO (09:15)
[2024-11-25] MEDS: FIDAXOMICIN 200 MG TABLET PO ×2 (09:15→20:52)
[2024-11-25] MEDS: FUROSEMIDE 20 MG TABLET PO ×2 (09:15→17:27)
[2024-11-25] MEDS: METOPROLOL TARTRATE 50 MG TAB PO ×2 (09:15→17:27)
--- NOTE | 2024-11-25 10:58 | P.PNNP_ITS ---
Progress Note: A&P Assessment and Plan (1) Acute kidney injury: Code(s): N17.9 - Acute kidney failure, unspecified Status: Acute Assessment and Plan: * creatinine is back to normal * suspect multifactorial etiology: * prerenal factors * infection/early sepsis (diverticulitis/colitis) * contrast exposure (CT of A/P on 11/01) * relative hypotension on presentation * JAMIE-I/diuretic use prior to admission * urinary retention(?) - difficulty urinating on admission so gamble catheter placed * other (?) * evaluation to date noted: * renal ultrasound without obstruction * urine electrolytes prerenal * urine eosinophils negative * CPK normal * mild proteinuria * holding lisinopril and spironolactone * BP is rising again. * She does have a lot of proteinuria * will restart the lisinopril low-dose (2) Clostridium difficile colitis: Code(s): A04.72 - Enterocolitis due to Clostridium difficile, not specified as recurrent Status: Acute Assessment and Plan: * slow improvement * demonstrated by positive C. diff toxin assay * also noted by CT imaging to date: * CT of C/A/P (11/05): Diffuse colitis detailed above, correlate for underlying pseudomembranous colitis. No perforation or abscess * CT of A/P (11/04): No evidence of bowel perforation; persistent severe pancolitis * CT of A/P (11/03): Interval progression of radiographically uncomplicated selby colitis which could be infectious, inflammatory or less likely ischemic in etiology * CT of A/P (11/01): Sigmoid diverticulitis. No perforation or abscess * complicated by diverticulitis * follow culture data * follow trend of WBC * off antibiotics except for the fidaxomicin * Infectious Disease following (3) Acute hypoxic respiratory failure: Code(s): J96.01 - Acute respiratory failure with hypoxia Status: Acute Assessment and Plan: * improvement noted * multifactorial etiology: * bilateral pleural effusions * atelectasis * fluid overload * atrial flutter with rapid ventricular response * pancolitis * possible pneumonia (?) * s/p thoracentesis (on 11/08) * Pulmonary recommendations noted * CT of chest (on 11/20) noted * s/p repeat thoracentesis on 11/21 * on Lasix (4) Hyponatremia: Code(s): E87.1 - Hypo-osmolality and hyponatremia Status: Acute Assessment and Plan: * possible chronic component -- sodium seems to run 129 - 136mmol/L since 2021 * presumably worsen by: * DNOOVAN/ARF * prerenal factors * pleural effusions * possible pneumonia * urinary retention * mild improvement s/p intial IVF resuscitation * no improvement with repeat trial of IVFs * evaluation to date: * repeat urine electrolytes (11/17) non-prerenal * noted abnormal SPEP and UPEP -- checking immunofixation * TSH/thyroid studies noted * cortisol okay * getting lasix to treat her pleural effusions and edema, and salt tablets to keep her sodium from dropping. * follow trend of sodium (5) Metabolic acidosis: Code(s): E87.20 - Acidosis, unspecified Status: Acute Assessment and Plan: * resolved (6) Atrial flutter: Code(s): I48.92 - Unspecified atrial flutter Status: Acute Assessment and Plan: * as noted by events early on 11/05 * Heart rate 66 * Cardiology recommendations noted * on metoprolol * was on IV amiodarone (temporary measure) * Echo noted (on 11/07) * left ventricular systolic function is hyperdynamic, estimated at > 70% * left ventricular diastolic function is grade I diastolic dysfunction * no aortic valve stenosis * mild tricuspid valve regurgitation * on anticoagulation (7) Elevated troponin: Code(s): R79.89 - Other specified abnormal findings of blood chemistry Status: Acute Assessment and Plan: * due to DONOVAN versus atrial fluttter with RVR * trend noted * Cardiology comments noted (8) Hypertension: Code(s): I10 - Essential (primary) hypertension Status: Chronic Assessment and Plan: * systolic ranging 150-170 * creatinine is down to normal now * restarting low-dose Lasix Will continue to follow. Subjective Date/time seen: 11/25/24 10:58 Interval history: Patient feels a little bit better. She is trying to eat some breakfast diarrhea is better Exam Narrative: General: elderly but WD/WN female in NAD Heart: RRR, normal S1 and S2; no rub or gallop Lungs: coarse and decreased at bases Abdomen: soft, nontender, positive bowel sounds Extremities: no cyanosis or clubbing; 1+ edema Skin: preconstruction manager rash or subcu nodules Objective Data Vital Signs Vital Signs: Vital Signs - 24 hr 11/24/24 12:00 11/24/24 14:00 11/24/24 16:00 Temperature 98.5 F Pulse Rate 78 69 67 Respiratory Rate 18 Blood Pressure 166/52 H Pulse Oximetry 93 Oxygen Delivery Fraction of Inspired Oxygen 11/24/24 17:24 11/24/24 19:37 11/24/24 20:00 Temperature 97.7 F Pulse Rate 67 72 71 Respiratory Rate 18 18 Blood Pressure 179/72 H Pulse Oximetry 90 92 Oxygen Delivery Room Air Fraction of Inspired Oxygen 21 11/24/24 20:00 11/24/24 21:30 11/25/24 00:00 Temperature Pulse Rate 71 63 Respiratory Rate Blood Pressure Pulse Oximetry 92 Oxygen Delivery Room Air Fraction of Inspired Oxygen 11/25/24 03:54 11/25/24 04:00 11/25/24 08:00 Temperature 97.5 F L Pulse Rate 60 66 64 Respiratory Rate 18 Blood Pressure 159/48 H Pulse Oximetry 90 Oxygen Delivery Fraction of Inspired Oxygen 11/25/24 09:15 11/25/24 09:15 Temperature Pulse Rate 66 Respiratory Rate Blood Pressure Pulse Oximetry Oxygen Delivery Room Air Fraction of Inspired Oxygen Intake/Output Intake/Output: Intake & Output 11/22/24 11/23/24 11/24/24 11/25/24 23:59 23:59 23:59 23:59 Intake Total 1730 1120 1500 630 Output Total 3 3 1 1 Balance 1727 1117 1499 629 Meds/Results Medications: Active Medications Generic Name Dose Route Start Last Admin Trade Name Freq PRN Reason Stop Dose Admin Acetaminophen 650 mg 11/06/24 12:18 11/24/24 20:59 Acetaminophen 325 Mg Tablet PO 650 mg Q4H PRN Administration Headache Alteplase, Recombinant 2 mg 11/11/24 21:39 11/11/24 22:17 Alteplase 2 Mg Vial (Cathflo) IV PUSH 2 mg ONCE PRN Administration Line Occlusion Apixaban 2.5 mg 11/15/24 21:00 11/20/24 10:28 Apixaban 2.5 Mg Tablet PO 2.5 mg On Hold: 11/20/24 16:42 Q12HR KEVIN Administration Cyclosporine 1 drop 11/03/24 21:00 11/25/24 09:15 Cyclosporine 0.4 Ml Ophth Solution EACH EYE 1 drop Q12HR KEVIN Administration Fidaxomicin 200 mg 11/23/24 13:30 11/25/24 09:15 Fidaxomicin 200 Mg Tablet PO 12/02/24 21:01 200 mg Q12HR KEVIN Administration Furosemide 20 mg 11/24/24 09:30 11/25/24 09:15 Furosemide 20 Mg Tablet PO 20 mg BID KEVIN Administration Magnesium Oxide 400 mg 11/24/24 09:00 11/25/24 09:15 Magnesium Oxide 400 Mg Tablet PO 400 mg QAM KEVIN Administration Metoprolol Tartrate 50 mg 11/08/24 09:00 11/25/24 09:15 Metoprolol Tartrate 50 Mg Tab PO 50 mg BID KEVIN Administration Sodium Chloride 10 ml 11/06/24 22:00 11/25/24 05:31 Central Line Flush IV PUSH 10 ml Q8HR KEVIN Administration Sodium Chloride 10 ml 11/06/24 14:29 Central Line Flush IV PUSH PRN PRN with TPN bag changes Sodium Chloride 20 ml 11/06/24 14:29 11/19/24 05:57 Central Line Flush IV PUSH 20 ml PRN PRN Administration after blood draws Sodium Chloride 1 spray 11/15/24 16:13 11/15/24 17:13 Saline 0.65% Rodrigo Soln 44 Ml Btl NASAL 1 spray Q6HR PRN Administration Congestion Sodium Chloride 1 gm 11/17/24 09:00 11/25/24 09:15 Sodium Chloride 1 Gm Tablet PO 1 gm BID KEVIN Administration Trazodone HCl 50 mg 11/03/24 21:00 11/24/24 22:05 Trazodone Hcl 50 Mg Tablet PO 50 mg QHS KEVIN Administration Radiology Results: ITS Impressions Abdomen/Pelvis CT 11/04/24 12:36 IMPRESSION: 1. No evidence of bowel perforation. 2. Persistent severe pancolitis. 3. New small scattered ascites. 4. New small pleural effusions and significant bibasilar atelectasis. Renal Ultrasound 11/04/24 19:07 Impression: Simple appearing left renal cyst. No significant medical renal disease or obstruction Abdomen X-Ray 11/05/24 16:02 Impression: 1. Findings concerning for small bowel obstruction. CT is suggested Chest/Abdomen/Pelvis CT 11/05/24 17:04 IMPRESSION: 1. Diffuse colitis detailed above, correlate for underlying pseudomembranous colitis. No perforation or abscess. Follow-up recommended to assess. 2. CHF with superimposed probable bronchopneumonia. 3. Incidental findings above. Contrast-enhanced MRI recommended Head CT 11/06/24 12:46 Impression: 1.No acute intracranial abnormality. Venous Doppler Study 11/19/24 18:32 Impression: Negative for DVT. Chest CT 11/20/24 16:02 IMPRESSION: 1. Increase in size of moderate sized bilateral posterior layering pleural effusions with secondary dependent atelectasis including complete collapse of the bilateral lower lobes. 2. Moderate amount of ascites in the visualized upper abdomen. 3. Mildly enlarged prevascular lymph node and the anterior mediastinum which is most likely reactive. Thoracentesis Ultrasound 11/21/24 15:20 IMPRESSION: 1. Successful ultrasound-guided thoracentesis yielding 500 mL of yellowish fluid. Chest X-Ray 11/23/24 08:49 IMPRESSION: 1. Persistent large right pleural effusion with associated basilar atelectasis and/or airspace disease. 2. Left lung developing interstitial pulmonary edema and/or pneumonitis. Labs Labs: Laboratory Results - last 24 hr 11/25/24 05:25 WBC 5.3 RBC 2.87 L Hgb 8.8 L Hct 27.3 L MCV 95.1 MCH 30.7 MCHC 32.2 RDW 14.7 H Plt Count 225 MPV 8.9 Immature Gran % (Auto) 1.3 H Neut % (Auto) 73.0 Lymph % (Auto) 9.4 L [place] % (Auto) 12.0 H Eos % (Auto) 2.8 Baso % (Auto) 1.5 H Lymph # (Auto) 0.50 L [place] # (Auto) 0.6 Eos # (Auto) 0.2 Baso # (Auto) 0.1 Abs Immat Gran (auto) 0.07 H Absolute Neuts (auto) 3.9 Absolute Nucleated RBC 0.000 Nucleated RBC % 0.0 Sodium 129 L Potassium 3.7 Chloride 100 Carbon Dioxide 26 Anion Gap 3 L BUN 21 H Creatinine 0.88 Estim Creat Clear Calc 48 Estimated GFR > 60 Glucose 120 H Calcium 7.5 L Magnesium 1.5 L Total Bilirubin 0.2 AST 29 ALT 15 Alkaline Phosphatase 54 Total Protein 4.6 L Albumin 2.3 L
--- NOTE | 2024-11-25 12:01 | P.PNIM_ITS ---
Progress Note: A&P Assessment and Plan (1) Clostridium difficile colitis: Code(s): A04.72 - Enterocolitis due to Clostridium difficile, not specified as recurrent Status: Acute Assessment and Plan: - Metronidazole complete from 11/08/2024 to 11/15/2024 - per ID: maintain planned pulse/ taper with oral vancomycin. Currently at 250 mg Q 6 hours changed at 11/16/2024. would plan q.8 hour dosing of oral vancomycin starting 11/30 and then decrease to twice daily dosing on 12/07. daily doses starting on 12/14 and then every other day dosing x2 weeks starting on 12/21/2024. - monitor stool output while tapering vanc - Zosyn discontinued - leukocytosis and diarrhea improving - continue Banatrol -Appreciate ID recommendations (2) Acute hypoxic respiratory failure: Code(s): J96.01 - Acute respiratory failure with hypoxia Status: Acute Assessment and Plan: -Pulmonology consulted. Less likely pneumonia, pneumonia specific antibiotics discontinued. Status post thoracentesis on 11/08/2024 showing exudative effusion, not infectious, macrophage predominant, likely related to colitis/fluid overload related to acute kidney injury. - echo on 10/08 demonstrating normal left ventricular function. - CXR 11/19 with persistent left lower lobe atelectasis with associated effusion - CT chest 11/20 with increase in size of moderate-sized bilateral posterior layering pleural effusions with secondary dependent atelectasis including complete collapse of the bilateral lobes - encouraged incentive spirometry, pulmonary hygiene - intermittently requiring oxygen and tachypneic - repeat thoracentesis ordered (3) Pleural effusion: Code(s): J90 - Pleural effusion, not elsewhere classified Status: Acute Assessment and Plan: - management as above (4) Hyponatremia: Code(s): E87.1 - Hypo-osmolality and hyponatremia Status: Acute Assessment and Plan: - nephrology on board. Multiple interventions including dialysis, IV fluids, diuretics, salt tabs, 3% hypertonic with minimal improvement. Na 124 which is minimally improved, but patient's intake is improving so hoping sodium will continue to rise. - Nephrology following (5) Anemia: Code(s): D64.9 - Anemia, unspecified Status: Acute Assessment and Plan: - Hgb 11.7 on admission, trended down to 9.0 11/21. Denied signs of bleeding, - likely multifactorial in setting of renal failure, IV fluids, critical illness - check iron studies (6) Adjustment disorder with depressed mood: Code(s): F43.21 - Adjustment disorder with depressed mood Status: Acute Assessment and Plan: - intermittently refused therapy. She is depressed because she has never been this ill before, relatively healthy previous to this admission. She denies adamantly any suicidal ideation, she also refuses to see Psychiatry or to start any pharmacological therapy. - affect seems to be improving. She worked with therapy 11/19. Encouraged to continue participation. Reassurance provided. - continue trazodone qHS (7) Hypertension: Code(s): I10 - Essential (primary) hypertension Status: Chronic Assessment and Plan: -Lisinopril and spironolactone on hold due to DONOVAN -Amlodipine initially on hold to allow titration of beta-christine. Will resume due to high BP trend. - monitor BP (8) Atrial flutter: Code(s): I48.92 - Unspecified atrial flutter Status: Acute Assessment and Plan: -New diagnosis, now converted to sinus rhythm. -Continue metoprolol 50 mg p.o. b.i.d.. -Digoxin stopped due to renal failure - continue Eliquis -Keep potassium greater than 4 magnesium greater than 2, keep renal failure in consideration when replacing electrolytes (9) Acute kidney injury: Code(s): N17.9 - Acute kidney failure, unspecified Status: Acute Assessment and Plan: -Infection vs Contrast related injury vs prerenal. Creatinine normal 2 days prior to admission Nephrology is following, right IJ Cecil dialysis catheter placed on 11/10/2024. -Dialysis started on 11/10/2024. No dialysis for some time now, Nephrology continues to manage. -Renal ultrasound without obstruction, urine electrolytes pre renal, urine eosinophils negative, CPK normal, mild proteinuria -Holding lisinopril and spironolactone -Hol[place] catheter in place -Follow renal function labs and urine output -Disposition pending. When ready to pull out the IJ, hold Eliquis for at least 24 hours. 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 will follow instruction from ID and further recommendation to follow. patient with DONOVAN, seen by casing grader and her Scr is improving however, she does have protienuria and the casing grader added lisinopril. Code status: full code DVT prophylaxis: Eliquis Dispo: possibly RO when medically stable. Care coordination following. 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 2/2 Augmentin taken recently, is seen by ID and being treated with IV Flagyl and increase high dose oral va ncomycin 500mg qid currently, today patient symptoms slightly worsen as she had 4 loose BM last night and two today however her stools are start to form, over all she is feeling better, lying in the bed and having her is helping her her legs, she did participate with PT today, , patient white counts are trending down, patient is seen by ID being treated IV Flagyl and high dose oral Vancomycin 500 mg qid, will monitor and taper vancomycin as BM frequency improving and start to form stool. will follow instruction from ID and further recommendation to follow. patient with DONOVAN, seen by casing grader and her Scr is improving however, she does have protienuria and the casing grader added lisinopril. Review of Systems Review of Systems: All systems reviewed & are unremarkable except as noted in HPI and below (Subjective) Exam Narrative: Patient is comfortable, NAD HEENT: eyes are clear and none icteric LUNGS:CTA HEART: RR S1S2 ABD: BS+, Soft and nontender Lower extremities: no edema SKIN: nonjaundiced Neuro: grossly intact. Objective Data Vital Signs Vital Signs: Vital Signs - 24 hr 11/24/24 14:00 11/24/24 16:00 11/24/24 17:24 Temperature 36.9 C Pulse Rate 69 67 67 Respiratory Rate 18 Blood Pressure 166/52 H Pulse Oximetry 93 Oxygen Delivery Fraction of Inspired Oxygen 11/24/24 19:37 11/24/24 20:00 11/24/24 20:00 Temperature 36.5 C Pulse Rate 72 71 71 Respiratory Rate 18 18 Blood Pressure 179/72 H Pulse Oximetry 90 92 Oxygen Delivery Room Air Fraction of Inspired Oxygen 21 11/24/24 21:30 11/25/24 00:00 11/25/24 03:54 Temperature 36.4 C L Pulse Rate 63 60 Respiratory Rate 18 Blood Pressure 159/48 H Pulse Oximetry 92 90 Oxygen Delivery Room Air Fraction of Inspired Oxygen 11/25/24 04:00 11/25/24 08:00 11/25/24 09:15 Temperature Pulse Rate 66 64 66 Respiratory Rate Blood Pressure Pulse Oximetry Oxygen Delivery Fraction of Inspired Oxygen 11/25/24 09:15 Temperature Pulse Rate Respiratory Rate Blood Pressure Pulse Oximetry Oxygen Delivery Room Air Fraction of Inspired Oxygen Intake/Output Intake/Output: Intake & Output 11/22/24 11/23/24 11/24/24 11/25/24 23:59 23:59 23:59 23:59 Intake Total 1730 1120 1500 680 Output Total 3 3 1 1 Balance 1727 1117 1499 679 Meds/Results Medications: Active Medications Generic Name Dose Route Start Last Admin Trade Name Freq PRN Reason Stop Dose Admin Acetaminophen 650 mg 11/06/24 12:18 11/24/24 20:59 Acetaminophen 325 Mg Tablet PO 650 mg Q4H PRN Administration Headache Alteplase, Recombinant 2 mg 11/11/24 21:39 11/11/24 22:17 Alteplase 2 Mg Vial (Cathflo) IV PUSH 2 mg ONCE PRN Administration Line Occlusion Apixaban 2.5 mg 11/15/24 21:00 11/20/24 10:28 Apixaban 2.5 Mg Tablet PO 2.5 mg On Hold: 11/20/24 16:42 Q12HR KEVIN Administration Cyclosporine 1 drop 11/03/24 21:00 11/25/24 09:15 Cyclosporine 0.4 Ml Ophth Solution EACH EYE 1 drop Q12HR KEVIN Administration Fidaxomicin 200 mg 11/23/24 13:30 11/25/24 09:15 Fidaxomicin 200 Mg Tablet PO 12/02/24 21:01 200 mg Q12HR KEVIN Administration Furosemide 20 mg 11/24/24 09:30 11/25/24 09:15 Furosemide 20 Mg Tablet PO 20 mg BID KEVIN Administration Lisinopril 10 mg 11/26/24 09:00 Lisinopril 10 Mg Tablet PO DAILY KEVIN Magnesium Oxide 400 mg 11/24/24 09:00 11/25/24 09:15 Magnesium Oxide 400 Mg Tablet PO 400 mg QAM KEVIN Administration Metoprolol Tartrate 50 mg 11/08/24 09:00 11/25/24 09:15 Metoprolol Tartrate 50 Mg Tab PO 50 mg BID KEVIN Administration Sodium Chloride 10 ml 11/06/24 22:00 11/25/24 12:01 Central Line Flush IV PUSH 10 ml Q8HR KEVIN Administration Sodium Chloride 10 ml 11/06/24 14:29 Central Line Flush IV PUSH PRN PRN with TPN bag changes Sodium Chloride 20 ml 11/06/24 14:29 11/19/24 05:57 Central Line Flush IV PUSH 20 ml PRN PRN Administration after blood draws Sodium Chloride 1 spray 11/15/24 16:13 11/15/24 17:13 Saline 0.65% Rodrigo Soln 44 Ml Btl NASAL 1 spray Q6HR PRN Administration Congestion Sodium Chloride 1 gm 11/17/24 09:00 11/25/24 09:15 Sodium Chloride 1 Gm Tablet PO 1 gm BID KEVIN Administration Trazodone HCl 50 mg 11/03/24 21:00 11/24/24 22:05 Trazodone Hcl 50 Mg Tablet PO 50 mg QHS KEVIN Administration Radiology Results: ITS Impressions Abdomen/Pelvis CT 11/04/24 12:36 IMPRESSION: 1. No evidence of bowel perforation. 2. Persistent severe pancolitis. 3. New small scattered ascites. 4. New small pleural effusions and significant bibasilar atelectasis. Renal Ultrasound 11/04/24 19:07 Impression: Simple appearing left renal cyst. No significant medical renal disease or obstruction Abdomen X-Ray 11/05/24 16:02 Impression: 1. Findings concerning for small bowel obstruction. CT is suggested Chest/Abdomen/Pelvis CT 11/05/24 17:04 IMPRESSION: 1. Diffuse colitis detailed above, correlate for underlying pseudomembranous colitis. No perforation or abscess. Follow-up recommended to assess. 2. CHF with superimposed probable bronchopneumonia. 3. Incidental findings above. Contrast-enhanced MRI recommended Head CT 11/06/24 12:46 Impression: 1.No acute intracranial abnormality. Venous Doppler Study 11/19/24 18:32 Impression: Negative for DVT. Chest CT 11/20/24 16:02 IMPRESSION: 1. Increase in size of moderate sized bilateral posterior layering pleural effusions with secondary dependent atelectasis including complete collapse of the bilateral lower lobes. 2. Moderate amount of ascites in the visualized upper abdomen. 3. Mildly enlarged prevascular lymph node and the anterior mediastinum which is most likely reactive. Thoracentesis Ultrasound 11/21/24 15:20 IMPRESSION: 1. Successful ultrasound-guided thoracentesis yielding 500 mL of yellowish fluid. Chest X-Ray 11/23/24 08:49 IMPRESSION: 1. Persistent large right pleural effusion with associated basilar atelectasis and/or airspace disease. 2. Left lung developing interstitial pulmonary edema and/or pneumonitis. Labs Labs: Laboratory Results - last 24 hr 11/25/24 05:25 WBC 5.3 RBC 2.87 L Hgb 8.8 L Hct 27.3 L MCV 95.1 MCH 30.7 MCHC 32.2 RDW 14.7 H Plt Count 225 MPV 8.9 Immature Gran % (Auto) 1.3 H Neut % (Auto) 73.0 Lymph % (Auto) 9.4 L [place] % (Auto) 12.0 H Eos % (Auto) 2.8 Baso % (Auto) 1.5 H Lymph # (Auto) 0.50 L [place] # (Auto) 0.6 Eos # (Auto) 0.2 Baso # (Auto) 0.1 Abs Immat Gran (auto) 0.07 H Absolute Neuts (auto) 3.9 Absolute Nucleated RBC 0.000 Nucleated RBC % 0.0 Sodium 129 L Potassium 3.7 Chloride 100 Carbon Dioxide 26 Anion Gap 3 L BUN 21 H Creatinine 0.88 Estim Creat Clear Calc 48 Estimated GFR > 60 Glucose 120 H Calcium 7.5 L Magnesium 1.5 L Total Bilirubin 0.2 AST 29 ALT 15 Alkaline Phosphatase 54 Total Protein 4.6 L Albumin 2.3 L Quality VTE Prophylaxis VTE prophylaxis: mechanical ordered and pharmacologic ordered
[2024-11-26] VITALS (14 sets, daily range): BP systolic 161–176; BP diastolic 47–56; PULSE 56–73; RESP 15–20; TEMP 36.5–36.8; O2SAT 93–94
[2024-11-26] MEDS: CENTRAL LINE FLUSH 10 ML IV PUSH ×3 (06:11→20:41)
[2024-11-26 06:39] LABS: Alanine Aminotransferase 17 U/L (6-35); Albumin Level 1.7 g/dL (3.5-5.1); Alkaline Phosphatase 42 U/L (38-126); Anion Gap 1 mmol/L (4-12); Aspartate Amino Transferase 38 U/L (14-36); Bilirubin,Total < 0.1 mg/dL (0.2-1.3); Blood Urea Nitrogen 16 mg/dL (7-17); Calcium 5.6 mg/dL (8.4-10.2); Carbon Dioxide 21 mmol/L (22-30); Chloride 108 mmol/L (98-107); Estimated CRCL calculation 64 ml/min; Estimated Glomerular Filt Rate > 60; Glucose 101 mg/dL (65-110); Magnesium 1.2 mg/dL (1.6-2.3); Potassium 2.7 mmol/L (3.4-5.0); Sodium 130 mmol/L (137-145); Total Protein 3.6 g/dL (6.3-8.2)
[2024-11-26 07:50] LABS: Hematocrit 29.5 % (37.0-47.0); Hemoglobin 9.5 g/dL (12.0-15.0); Immature Granulocyte Percent A 0.9 % (0-0.5); Lymphocytes Absolute Auto 0.68 K/mm3 (0.9-3.2); Mean Corpuscular HGB Conc 32.2 g/dl (32-36); Mean Corpuscular Hemoglobin 30.6 pg (26-34); Mean Corpuscular Volume 95.2 fl (80-100); Nucleated Red Blood Cells Absolute Auto 0.000 K/mm3 (0.0-0.012); Nucleated Red Blood Cells Perc 0.0 % (0.0-0.2); Platelet Count Result 232 k/mm3 (150-375); Red Blood Count 3.10 M/mm3 (4.2-5.4); White Blood Count 5.6 K/mm3 (4.5-10.0)
--- NOTE | 2024-11-26 08:47 | P.PNNP_ITS ---
Progress Note: A&P Assessment and Plan (1) Acute kidney injury: Code(s): N17.9 - Acute kidney failure, unspecified Status: Acute Assessment and Plan: * creatinine is back to normal * suspect multifactorial etiology: * prerenal factors * infection/early sepsis (diverticulitis/colitis) * contrast exposure (CT of A/P on 11/01) * relative hypotension on presentation * JAMIE-I/diuretic use prior to admission * urinary retention(?) - difficulty urinating on admission so gamble catheter placed * other (?) * evaluation to date noted: * renal ultrasound without obstruction * urine electrolytes prerenal * urine eosinophils negative * CPK normal * mild proteinuria * back on lisinopril. She got her 1st dose last night at around 11:00 a.m. * BP still generous but just started lisinopril. * K is low. supplement. (2) Clostridium difficile colitis: Code(s): A04.72 - Enterocolitis due to Clostridium difficile, not specified as recurrent Status: Acute Assessment and Plan: * slow improvement * demonstrated by positive C. diff toxin assay * also noted by CT imaging to date: * CT of C/A/P (11/05): Diffuse colitis detailed above, correlate for underlying pseudomembranous colitis. No perforation or abscess * CT of A/P (11/04): No evidence of bowel perforation; persistent severe pancolitis * CT of A/P (11/03): Interval progression of radiographically uncomplicated selby colitis which could be infectious, inflammatory or less likely ischemic in etiology * CT of A/P (11/01): Sigmoid diverticulitis. No perforation or abscess * complicated by diverticulitis * follow culture data * follow trend of WBC * off antibiotics except for the fidaxomicin * Infectious Disease following (3) Acute hypoxic respiratory failure: Code(s): J96.01 - Acute respiratory failure with hypoxia Status: Acute Assessment and Plan: * improvement noted * multifactorial etiology: * bilateral pleural effusions * atelectasis * fluid overload * atrial flutter with rapid ventricular response * pancolitis * possible pneumonia (?) * s/p thoracentesis (on 11/08) * on Lasix for the volume overload and salt tablets to keep the sodium from dropping. However blood pressure is still somewhat high. Swelling is better. Will check a chest x-ray. If the chest x-ray does not show much then consider decreasing Lasix and sodium chloride as well. (4) Hyponatremia: Code(s): E87.1 - Hypo-osmolality and hyponatremia Status: Acute Assessment and Plan: * possible chronic component -- sodium seems to run 129 - 136mmol/L since 2021 * presumably worsen by: * DONOVAN/ARF * prerenal factors * pleural effusions * possible pneumonia * urinary retention * mild improvement s/p intial IVF resuscitation * no improvement with repeat trial of IVFs * evaluation to date: * repeat urine electrolytes (11/17) non-prerenal * noted abnormal SPEP and UPEP -- checking immunofixation * TSH/thyroid studies noted * cortisol okay * getting lasix to treat her pleural effusions and edema, and salt tablets to keep her sodium from dropping. * Sodium level is improved at 1:30 a.m. (5) Metabolic acidosis: Code(s): E87.20 - Acidosis, unspecified Status: Acute Assessment and Plan: * CO2 dropped a little bit today. Will recheck again tomorrow. (6) Atrial flutter: Code(s): I48.92 - Unspecified atrial flutter Status: Acute Assessment and Plan: * as noted by events early on 11/05 * Heart rate 67 * Cardiology recommendations noted * on metoprolol * was on IV amiodarone (temporary measure) * Echo noted (on 11/07) * left ventricular systolic function is hyperdynamic, estimated at > 70% * left ventricular diastolic function is grade I diastolic dysfunction * no aortic valve stenosis * mild tricuspid valve regurgitation * on anticoagulation (7) Elevated troponin: Code(s): R79.89 - Other specified abnormal findings of blood chemistry Status: Acute Assessment and Plan: * due to DONOVAN versus atrial fluttter with RVR * trend noted * Cardiology comments noted (8) Hypertension: Code(s): I10 - Essential (primary) hypertension Status: Chronic Assessment and Plan: * systolic ranging 150-170 * creatinine is down to normal now * restarted low-dose Lisinopril Subjective Date/time seen: 11/26/24 08:47 Interval history: patient is feeling better today. Eating pretty well. Stools have firmed up a little. 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 Objective Data Vital Signs Vital Signs: Vital Signs - 24 hr 11/25/24 09:15 11/25/24 09:15 11/25/24 12:00 Temperature Pulse Rate 66 74 Respiratory Rate Blood Pressure Pulse Oximetry Oxygen Delivery Room Air Fraction of Inspired Oxygen 11/25/24 14:00 11/25/24 16:00 11/25/24 17:27 Temperature 97.7 F Pulse Rate 65 65 65 Respiratory Rate 16 Blood Pressure 175/51 H Pulse Oximetry 92 Oxygen Delivery Fraction of Inspired Oxygen 11/25/24 20:00 11/25/24 20:00 11/25/24 20:29 Temperature Pulse Rate 71 Respiratory Rate Blood Pressure Pulse Oximetry 93 Oxygen Delivery Room Air Room Air Fraction of Inspired Oxygen 21 11/25/24 21:27 11/26/24 00:00 11/26/24 00:04 Temperature 98.8 F Pulse Rate 70 66 Respiratory Rate 16 Blood Pressure 196/62 H 176/56 H Pulse Oximetry 91 Oxygen Delivery Fraction of Inspired Oxygen 11/26/24 04:00 11/26/24 05:09 Temperature 98.3 F Pulse Rate 66 67 Respiratory Rate 16 Blood Pressure 174/51 H Pulse Oximetry 94 Oxygen Delivery Fraction of Inspired Oxygen Intake/Output Intake/Output: Intake & Output 11/23/24 11/24/24 11/25/24 11/26/24 23:59 23:59 23:59 23:59 Intake Total 1120 1500 1280 400 Output Total 3 1 1 Balance 1117 1499 1279 400 Meds/Results Medications: Active Medications Generic Name Dose Route Start Last Admin Trade Name Freq PRN Reason Stop Dose Admin Acetaminophen 650 mg 11/06/24 12:18 11/24/24 20:59 Acetaminophen 325 Mg Tablet PO 650 mg Q4H PRN Administration Headache Alteplase, Recombinant 4 mg 11/26/24 07:05 Alteplase 2 Mg Vial (Cathflo) IV PUSH ONCE PRN Line Occlusion Apixaban 2.5 mg 11/15/24 21:00 11/20/24 10:28 Apixaban 2.5 Mg Tablet PO 2.5 mg On Hold: 11/20/24 16:42 Q12HR KEVIN Administration Cyclosporine 1 drop 11/03/24 21:00 11/25/24 20:57 Cyclosporine 0.4 Ml Ophth Solution EACH EYE 1 drop Q12HR KEVIN Administration Fidaxomicin 200 mg 11/23/24 13:30 11/25/24 20:52 Fidaxomicin 200 Mg Tablet PO 12/02/24 21:01 200 mg Q12HR KEVIN Administration Furosemide 20 mg 11/24/24 09:30 11/25/24 17:27 Furosemide 20 Mg Tablet PO 20 mg BID KEVIN Administration Lisinopril 10 mg 11/26/24 09:00 Lisinopril 10 Mg Tablet PO DAILY KEVIN Magnesium Oxide 400 mg 11/24/24 09:00 11/25/24 09:15 Magnesium Oxide 400 Mg Tablet PO 400 mg QAM KEVIN Administration Metoprolol Tartrate 50 mg 11/08/24 09:00 11/25/24 17:27 Metoprolol Tartrate 50 Mg Tab PO 50 mg BID KEVIN Administration Sodium Chloride 10 ml 11/06/24 22:00 11/26/24 06:11 Central Line Flush IV PUSH 10 ml Q8HR KEVIN Administration Sodium Chloride 10 ml 11/06/24 14:29 Central Line Flush IV PUSH PRN PRN with TPN bag changes Sodium Chloride 20 ml 11/06/24 14:29 11/19/24 05:57 Central Line Flush IV PUSH 20 ml PRN PRN Administration after blood draws Sodium Chloride 1 spray 11/15/24 16:13 11/15/24 17:13 Saline 0.65% Rodrigo Soln 44 Ml Btl NASAL 1 spray Q6HR PRN Administration Congestion Sodium Chloride 1 gm 11/17/24 09:00 11/25/24 17:27 Sodium Chloride 1 Gm Tablet PO 1 gm BID KEVIN Administration Trazodone HCl 50 mg 11/03/24 21:00 11/25/24 20:52 Trazodone Hcl 50 Mg Tablet PO 50 mg QHS KEVIN Administration Radiology Results: ITS Impressions Abdomen/Pelvis CT 11/04/24 12:36 IMPRESSION: 1. No evidence of bowel perforation. 2. Persistent severe pancolitis. 3. New small scattered ascites. 4. New small pleural effusions and significant bibasilar atelectasis. Renal Ultrasound 11/04/24 19:07 Impression: Simple appearing left renal cyst. No significant medical renal disease or obstruction Abdomen X-Ray 11/05/24 16:02 Impression: 1. Findings concerning for small bowel obstruction. CT is suggested Chest/Abdomen/Pelvis CT 11/05/24 17:04 IMPRESSION: 1. Diffuse colitis detailed above, correlate for underlying pseudomembranous colitis. No perforation or abscess. Follow-up recommended to assess. 2. CHF with superimposed probable bronchopneumonia. 3. Incidental findings above. Contrast-enhanced MRI recommended Head CT 11/06/24 12:46 Impression: 1.No acute intracranial abnormality. Venous Doppler Study 11/19/24 18:32 Impression: Negative for DVT. Chest CT 11/20/24 16:02 IMPRESSION: 1. Increase in size of moderate sized bilateral posterior layering pleural effusions with secondary dependent atelectasis including complete collapse of the bilateral lower lobes. 2. Moderate amount of ascites in the visualized upper abdomen. 3. Mildly enlarged prevascular lymph node and the anterior mediastinum which is most likely reactive. Thoracentesis Ultrasound 11/21/24 15:20 IMPRESSION: 1. Successful ultrasound-guided thoracentesis yielding 500 mL of yellowish fluid. Chest X-Ray 11/23/24 08:49 IMPRESSION: 1. Persistent large right pleural effusion with associated basilar atelectasis and/or airspace disease. 2. Left lung developing interstitial pulmonary edema and/or pneumonitis. Labs Labs: Laboratory Results - last 24 hr 11/26/24 11/26/24 06:09 07:44 WBC 5.6 RBC 3.10 L Hgb 9.5 L Hct 29.5 L MCV 95.2 MCH 30.6 MCHC 32.2 RDW 15.0 H Plt Count 232 MPV 9.3 Immature Gran % (Auto) 0.9 H Neut % (Auto) 73.4 H Lymph % (Auto) 12.2 L [place] % (Auto) 10.3 H Eos % (Auto) 1.8 Baso % (Auto) 1.4 H Lymph # (Auto) 0.68 L Martin # (Auto) 0.6 Eos # (Auto) 0.1 Baso # (Auto) 0.1 Abs Immat Gran (auto) 0.05 H Absolute Neuts (auto) 4.1 Absolute Nucleated RBC 0.000 Nucleated RBC % 0.0 Sodium 130 L Potassium 2.7 L* Chloride 108 H Carbon Dioxide 21 L Anion Gap 1 L BUN 16 Creatinine 0.65 L Estim Creat Clear Calc 64 Estimated GFR > 60 Glucose 101 Calcium 5.6 L* Magnesium 1.2 L Total Bilirubin < 0.1 L AST 38 H ALT 17 Alkaline Phosphatase 42 Total Protein 3.6 L Albumin 1.7 L
[2024-11-26] MEDS: METOPROLOL TARTRATE 50 MG TAB PO ×2 (09:57→16:35)
[2024-11-26] MEDS: SODIUM CHLORIDE 1 GM TABLET PO ×2 (09:57→16:35)
[2024-11-26] MEDS: MAGNESIUM OXIDE 400 MG TABLET PO (09:57)
[2024-11-26] MEDS: POTASSIUM CHLORIDE 20 MEQ ER TABLET 40 MEQ PO (09:57)
[2024-11-26] MEDS: FIDAXOMICIN 200 MG TABLET PO ×2 (09:57→20:40)
[2024-11-26] MEDS: FUROSEMIDE 20 MG TABLET PO ×2 (09:57→16:35)
[2024-11-26] MEDS: cycloSPORINE 0.4 ML OPHTH SOLUTION 1 DROP EACH EYE ×2 (09:58→20:40)
[2024-11-26] MEDS: ALTEPLASE 2 MG VIAL (CATHFLO) 4 MG IV PUSH (10:04)
[2024-11-26 14:46] LABS: Potassium 4.0 mmol/L (3.4-5.0)
--- NOTE | 2024-11-26 14:47 | P.PNIM_ITS ---
Progress Note: A&P Assessment and Plan (1) Clostridium difficile colitis: Code(s): A04.72 - Enterocolitis due to Clostridium difficile, not specified as recurrent Status: Acute Assessment and Plan: - Metronidazole complete from 11/08/2024 to 11/15/2024 - per ID: maintain planned pulse/ taper with oral vancomycin. Currently at 250 mg Q 6 hours changed at 11/16/2024. would plan q.8 hour dosing of oral vancomycin starting 11/30 and then decrease to twice daily dosing on 12/07. daily doses starting on 12/14 and then every other day dosing x2 weeks starting on 12/21/2024. - monitor stool output while tapering vanc - Zosyn discontinued - leukocytosis and diarrhea improving - continue Banatrol -Appreciate ID recommendations (2) Acute hypoxic respiratory failure: Code(s): J96.01 - Acute respiratory failure with hypoxia Status: Acute Assessment and Plan: -Pulmonology consulted. Less likely pneumonia, pneumonia specific antibiotics discontinued. Status post thoracentesis on 11/08/2024 showing exudative effusion, not infectious, macrophage predominant, likely related to colitis/fluid overload related to acute kidney injury. - echo on 10/08 demonstrating normal left ventricular function. - CXR 11/19 with persistent left lower lobe atelectasis with associated effusion - CT chest 11/20 with increase in size of moderate-sized bilateral posterior layering pleural effusions with secondary dependent atelectasis including complete collapse of the bilateral lobes - encouraged incentive spirometry, pulmonary hygiene - intermittently requiring oxygen and tachypneic - repeat thoracentesis ordered (3) Pleural effusion: Code(s): J90 - Pleural effusion, not elsewhere classified Status: Acute Assessment and Plan: - management as above (4) Hyponatremia: Code(s): E87.1 - Hypo-osmolality and hyponatremia Status: Acute Assessment and Plan: - nephrology on board. Multiple interventions including dialysis, IV fluids, diuretics, salt tabs, 3% hypertonic with minimal improvement. Na 124 which is minimally improved, but patient's intake is improving so hoping sodium will continue to rise. - Nephrology following (5) Anemia: Code(s): D64.9 - Anemia, unspecified Status: Acute Assessment and Plan: - Hgb 11.7 on admission, trended down to 9.0 11/21. Denied signs of bleeding, - likely multifactorial in setting of renal failure, IV fluids, critical illness - check iron studies (6) Adjustment disorder with depressed mood: Code(s): F43.21 - Adjustment disorder with depressed mood Status: Acute Assessment and Plan: - intermittently refused therapy. She is depressed because she has never been this ill before, relatively healthy previous to this admission. She denies adamantly any suicidal ideation, she also refuses to see Psychiatry or to start any pharmacological therapy. - affect seems to be improving. She worked with therapy 11/19. Encouraged to continue participation. Reassurance provided. - continue trazodone qHS (7) Hypertension: Code(s): I10 - Essential (primary) hypertension Status: Chronic Assessment and Plan: -Lisinopril and spironolactone on hold due to DONOVAN -Amlodipine initially on hold to allow titration of beta-christine. Will resume due to high BP trend. - monitor BP (8) Atrial flutter: Code(s): I48.92 - Unspecified atrial flutter Status: Acute Assessment and Plan: -New diagnosis, now converted to sinus rhythm. -Continue metoprolol 50 mg p.o. b.i.d.. -Digoxin stopped due to renal failure - continue Eliquis -Keep potassium greater than 4 magnesium greater than 2, keep renal failure in consideration when replacing electrolytes (9) Acute kidney injury: Code(s): N17.9 - Acute kidney failure, unspecified Status: Acute Assessment and Plan: -Infection vs Contrast related injury vs prerenal. Creatinine normal 2 days prior to admission Nephrology is following, right IJ Cecil dialysis catheter placed on 11/10/2024. -Dialysis started on 11/10/2024. No dialysis for some time now, Nephrology continues to manage. -Renal ultrasound without obstruction, urine electrolytes pre renal, urine eosinophils negative, CPK normal, mild proteinuria -Holding lisinopril and spironolactone -Holland catheter in place -Follow renal function labs and urine output -Disposition pending. When ready to pull out the IJ, hold Eliquis for at least 24 hours. 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 will follow instruction from ID and further recommendation to follow. patient with DONOVAN, seen by clinical radiologist and her Scr is improving however, she does have proteinuria and the clinical radiologist added lisinopril. her potassium and calcium are low being supplement, will monitor. Code status: full code DVT prophylaxis: Eliquis Dispo: possibly RO when medically stable. Care coordination following. Subjective Date/time seen: 11/26/24 14:47 Interval history: 78 y/o female with severe recurrent C Diff suspect 2/2 Augmentin taken recently, is seen by ID and being treated with IV Flagyl and increase high dose oral vancomycin 500mg qid currently, today patient symptoms slightly worsen as she had 4 loose BM last night and two today however her stools are start to form, over all she is feeling better, lying in the bed, she did participate with PT , , patient white counts are trending down, patient is seen by ID being treated IV Flagyl and high dose oral Vancomycin 500 mg qid, will monitor and taper vancomycin as BM frequency improving and start to form stool. will follow instruction from ID and further recommendation to follow. patient with DONOVAN, seen by clinical radiologist and her Scr is improving however, she does have proteinuria and the clinical radiologist added lisinopril. her potassium and calcium are low being supplement, will monitor. Review of Systems Review of Systems: All systems reviewed & are unremarkable except as noted in HPI and below (Subjective) Exam Narrative: Patient is comfortable, NAD HEENT: eyes are clear and none icteric LUNGS:CTA HEART: RR S1S2 ABD: BS+, Soft and nontender Lower extremities: no edema SKIN: nonjaundiced Neuro: grossly intact. Objective Data Vital Signs Vital Signs: Vital Signs - 24 hr 11/25/24 16:00 11/25/24 17:27 11/25/24 20:00 Temperature Pulse Rate 65 65 Respiratory Rate Blood Pressure Pulse Oximetry Oxygen Delivery Room Air Fraction of Inspired Oxygen 11/25/24 20:00 11/25/24 20:29 11/25/24 21:27 Temperature 37.1 C Pulse Rate 71 70 Respiratory Rate 16 Blood Pressure 196/62 H Pulse Oximetry 93 91 Oxygen Delivery Room Air Fraction of Inspired Oxygen 21 11/26/24 00:00 11/26/24 00:04 11/26/24 04:00 Temperature Pulse Rate 66 66 Respiratory Rate Blood Pressure 176/56 H Pulse Oximetry Oxygen Delivery Fraction of Inspired Oxygen 11/26/24 05:09 11/26/24 08:00 11/26/24 08:00 Temperature 36.8 C Pulse Rate 67 56 L Respiratory Rate 16 Blood Pressure 174/51 H Pulse Oximetry 94 Oxygen Delivery Room Air Fraction of Inspired Oxygen 11/26/24 09:57 Temperature Pulse Rate 67 Respiratory Rate Blood Pressure Pulse Oximetry Oxygen Delivery Fraction of Inspired Oxygen Intake/Output Intake/Output: Intake & Output 11/23/24 11/24/24 11/25/24 11/26/24 23:59 23:59 23:59 23:59 Intake Total 1120 1500 1280 535 Output Total 3 1 1 Balance 1117 1499 1279 535 Meds/Results Medications: Active Medications Generic Name Dose Route Start Last Admin Trade Name Freq PRN Reason Stop Dose Admin Acetaminophen 650 mg 11/06/24 12:18 11/24/24 20:59 Acetaminophen 325 Mg Tablet PO 650 mg Q4H PRN Administration Headache Alteplase, Recombinant 4 mg 11/26/24 07:05 11/26/24 10:04 Alteplase 2 Mg Vial (Cathflo) IV PUSH 4 mg ONCE PRN Administration Line Occlusion Apixaban 2.5 mg 11/15/24 21:00 11/20/24 10:28 Apixaban 2.5 Mg Tablet PO 2.5 mg On Hold: 11/20/24 16:42 Q12HR KEVIN Administration Calcium Carbonate 500 mg 11/26/24 17:00 Calcium/Vitamin D 500 Mg/5 Mcg (200 I.U.) Tablet PO BIDWM KEVIN Cyclosporine 1 drop 11/03/24 21:00 11/26/24 09:58 Cyclosporine 0.4 Ml Ophth Solution EACH EYE 1 drop Q12HR KEVIN Administration Fidaxomicin 200 mg 11/23/24 13:30 11/26/24 09:57 Fidaxomicin 200 Mg Tablet PO 12/02/24 21:01 200 mg Q12HR KEVIN Administration Furosemide 20 mg 11/24/24 09:30 11/26/24 09:57 Furosemide 20 Mg Tablet PO 20 mg BID KEVIN Administration Lisinopril 10 mg 11/26/24 09:00 11/26/24 09:57 Lisinopril 10 Mg Tablet PO 10 mg DAILY KEVIN Administration Magnesium Oxide 400 mg 11/24/24 09:00 11/26/24 09:57 Magnesium Oxide 400 Mg Tablet PO 400 mg QAM KEVIN Administration Metoprolol Tartrate 50 mg 11/08/24 09:00 11/26/24 09:57 Metoprolol Tartrate 50 Mg Tab PO 50 mg BID KEVIN Administration Sodium Chloride 10 ml 11/06/24 22:00 11/26/24 14:43 Central Line Flush IV PUSH 10 ml Q8HR KEVIN Administration Sodium Chloride 10 ml 11/06/24 14:29 Central Line Flush IV PUSH PRN PRN with TPN bag changes Sodium Chloride 20 ml 11/06/24 14:29 11/19/24 05:57 Central Line Flush IV PUSH 20 ml PRN PRN Administration after blood draws Sodium Chloride 1 spray 11/15/24 16:13 11/15/24 17:13 Saline 0.65% Rodrigo Soln 44 Ml Btl NASAL 1 spray Q6HR PRN Administration Congestion Sodium Chloride 1 gm 11/17/24 09:00 11/26/24 09:57 Sodium Chloride 1 Gm Tablet PO 1 gm BID KEVIN Administration Trazodone HCl 50 mg 11/03/24 21:00 11/25/24 20:52 Trazodone Hcl 50 Mg Tablet PO 50 mg QHS KEVIN Administration Radiology Results: ITS Impressions Abdomen/Pelvis CT 11/04/24 12:36 IMPRESSION: 1. No evidence of bowel perforation. 2. Persistent severe pancolitis. 3. New small scattered ascites. 4. New small pleural effusions and significant bibasilar atelectasis. Renal Ultrasound 11/04/24 19:07 Impression: Simple appearing left renal cyst. No significant medical renal disease or obstruction Abdomen X-Ray 11/05/24 16:02 Impression: 1. Findings concerning for small bowel obstruction. CT is suggested Chest/Abdomen/Pelvis CT 11/05/24 17:04 IMPRESSION: 1. Diffuse colitis detailed above, correlate for underlying pseudomembranous colitis. No perforation or abscess. Follow-up recommended to assess. 2. CHF with superimposed probable bronchopneumonia. 3. Incidental findings above. Contrast-enhanced MRI recommended Head CT 11/06/24 12:46 Impression: 1.No acute intracranial abnormality. Venous Doppler Study 11/19/24 18:32 Impression: Negative for DVT. Chest CT 11/20/24 16:02 IMPRESSION: 1. Increase in size of moderate sized bilateral posterior layering pleural effusions with secondary dependent atelectasis including complete collapse of the bilateral lower lobes. 2. Moderate amount of ascites in the visualized upper abdomen. 3. Mildly enlarged prevascular lymph node and the anterior mediastinum which is most likely reactive. Thoracentesis Ultrasound 11/21/24 15:20 IMPRESSION: 1. Successful ultrasound-guided thoracentesis yielding 500 mL of yellowish fluid. Chest X-Ray 11/26/24 14:25 Impression: CHF. Superimposed pneumonia is suspected Labs Labs: Laboratory Results - last 24 hr 11/26/24 11/26/24 11/26/24 06:09 07:44 14:22 WBC 5.6 RBC 3.10 L Hgb 9.5 L Hct 29.5 L MCV 95.2 MCH 30.6 MCHC 32.2 RDW 15.0 H Plt Count 232 MPV 9.3 Immature Gran % (Auto) 0.9 H Neut % (Auto) 73.4 H Lymph % (Auto) 12.2 L [place] % (Auto) 10.3 H Eos % (Auto) 1.8 Baso % (Auto) 1.4 H Lymph # (Auto) 0.68 L [place] # (Auto) 0.6 Eos # (Auto) 0.1 Baso # (Auto) 0.1 Abs Immat Gran (auto) 0.05 H Absolute Neuts (auto) 4.1 Absolute Nucleated RBC 0.000 Nucleated RBC % 0.0 Sodium 130 L Potassium 2.7 L* 4.0 Chloride 108 H Carbon Dioxide 21 L Anion Gap 1 L BUN 16 Creatinine 0.65 L Estim Creat Clear Calc 64 Estimated GFR > 60 Glucose 101 Calcium 5.6 L* Magnesium 1.2 L Total Bilirubin < 0.1 L AST 38 H ALT 17 Alkaline Phosphatase 42 Total Protein 3.6 L Albumin 1.7 L Quality VTE Prophylaxis VTE prophylaxis: mechanical ordered and pharmacologic ordered
[2024-11-26] MEDS: IPRATROPIUM 0.5 MG/ALBUTEROL SULFATE 2.5 MG (BASE) AMPUL.NEB 3 ML (15:10)
[2024-11-26] MEDS: CALCIUM/VITAMIN D 500 MG/5 MCG (200 I.U.) TABLET PO (16:35)
[2024-11-27] VITALS (16 sets, daily range): BP systolic 159–188; BP diastolic 49–58; PULSE 59–82; RESP 16–26; TEMP 36.4–37.1; O2SAT 92–96
--- NOTE | 2024-11-27 02:59 | PCRCNOTE ---
Window of time for administration has passed. See next scheduled administration.
[2024-11-27] MEDS: CENTRAL LINE FLUSH 10 ML IV PUSH ×3 (05:38→21:55)
[2024-11-27 05:54] LABS: Hematocrit 26.9 % (37.0-47.0); Hemoglobin 8.6 g/dL (12.0-15.0); Immature Granulocyte Percent A 0.8 % (0-0.5); Lymphocytes Absolute Auto 0.72 K/mm3 (0.9-3.2); Mean Corpuscular HGB Conc 32.0 g/dl (32-36); Mean Corpuscular Hemoglobin 30.4 pg (26-34); Mean Corpuscular Volume 95.1 fl (80-100); Nucleated Red Blood Cells Absolute Auto 0.000 K/mm3 (0.0-0.012); Nucleated Red Blood Cells Perc 0.0 % (0.0-0.2); Platelet Count Result 197 k/mm3 (150-375); Red Blood Count 2.83 M/mm3 (4.2-5.4); White Blood Count 5.9 K/mm3 (4.5-10.0)
[2024-11-27 06:26] LABS: Alanine Aminotransferase 42 U/L (6-35); Albumin Level 2.4 g/dL (3.5-5.1); Alkaline Phosphatase 63 U/L (38-126); Anion Gap 1 mmol/L (4-12); Aspartate Amino Transferase 83 U/L (14-36); Bilirubin,Total 0.3 mg/dL (0.2-1.3); Blood Urea Nitrogen 19 mg/dL (7-17); Calcium 7.7 mg/dL (8.4-10.2); Carbon Dioxide 27 mmol/L (22-30); Chloride 98 mmol/L (98-107); Estimated CRCL calculation 52 ml/min; Estimated Glomerular Filt Rate > 60; Glucose 125 mg/dL (65-110); Magnesium 1.4 mg/dL (1.6-2.3); Potassium 3.7 mmol/L (3.4-5.0); Sodium 126 mmol/L (137-145); Total Protein 4.8 g/dL (6.3-8.2)
[2024-11-27] MEDS: IPRATROPIUM 0.5 MG/ALBUTEROL SULFATE 2.5 MG (BASE) AMPUL.NEB 3 ML INHALATION ×3 (07:20→21:09)
[2024-11-27] MEDS: SODIUM CHLORIDE 1 GM TABLET PO ×2 (08:38→17:02)
[2024-11-27] MEDS: MAGNESIUM OXIDE 400 MG TABLET PO (08:38)
[2024-11-27] MEDS: CALCIUM/VITAMIN D 500 MG/5 MCG (200 I.U.) TABLET PO ×2 (08:38→17:02)
[2024-11-27] MEDS: FIDAXOMICIN 200 MG TABLET PO ×2 (08:38→21:54)
[2024-11-27] MEDS: METOPROLOL TARTRATE 50 MG TAB PO ×2 (08:38→17:02)
[2024-11-27] MEDS: ACETAMINOPHEN 325 MG TABLET 650 MG PO (08:39)
[2024-11-27] MEDS: FUROSEMIDE 20 MG TABLET PO ×2 (08:39→17:02)
[2024-11-27] MEDS: cycloSPORINE 0.4 ML OPHTH SOLUTION 1 DROP EACH EYE ×2 (08:39→21:54)
--- NOTE | 2024-11-27 12:01 | P.PNNP_ITS ---
Progress Note: A&P Assessment and Plan (1) Acute kidney injury: Code(s): N17.9 - Acute kidney failure, unspecified Status: Acute Assessment and Plan: * resolved - creatinine is back to normal * suspect multifactorial etiology: * prerenal factors * infection/early sepsis (diverticulitis/colitis) * contrast exposure (CT of A/P on 11/01) * relative hypotension on presentation * JAMIE-I/diuretic use prior to admission * urinary retention(?) - difficulty urinating on admission so gamble catheter placed * other (?) * evaluation to date noted: * renal ultrasound without obstruction * urine electrolytes prerenal * urine eosinophils negative * CPK normal * mild proteinuria * follow trend of repeat labs and UOP (2) Clostridium difficile colitis: Code(s): A04.72 - Enterocolitis due to Clostridium difficile, not specified as recurrent Status: Acute Assessment and Plan: * slow improvement * demonstrated by positive C. diff toxin assay * also noted by CT imaging to date: * CT of C/A/P (11/05): Diffuse colitis detailed above, correlate for underlying pseudomembranous colitis. No perforation or abscess * CT of A/P (11/04): No evidence of bowel perforation; persistent severe pancolitis * CT of A/P (11/03): Interval progression of radiographically uncomplicated selby colitis which could be infectious, inflammatory or less likely ischemic in etiology * CT of A/P (11/01): Sigmoid diverticulitis. No perforation or abscess * complicated by diverticulitis * follow culture data * follow trend of WBC * on antibiotics * Infectious Disease following (3) Acute hypoxic respiratory failure: Code(s): J96.01 - Acute respiratory failure with hypoxia Status: Acute Assessment and Plan: * improvement noted * multifactorial etiology: * bilateral pleural effusions * atelectasis * fluid overload * atrial flutter with rapid ventricular response * pancolitis * possible pneumonia (?) * s/p thoracentesis (on 11/08) * recent CXR noted * IV lasix today and tomorrow (along with oral lasix) * consider repeat thoracentesis?. (4) Hyponatremia: Code(s): E87.1 - Hypo-osmolality and hyponatremia Status: Acute Assessment and Plan: * possible chronic component -- sodium seems to run 129 - 136mmol/L since 2021 * presumably worsen by: * DONOVAN/ARF * prerenal factors * pleural effusions * possible pneumonia * urinary retention * mild improvement s/p intial IVF resuscitation * no improvement with repeat trial of IVFs * evaluation to date: * repeat urine electrolytes (11/17) non-prerenal * noted abnormal SPEP and UPEP -- checking immunofixation * TSH/thyroid studies noted * cortisol okay * getting lasix to treat her pleural effusions and edema, and salt tablets to keep her sodium from dropping. * follow trend of sodium levels (5) Metabolic acidosis: Code(s): E87.20 - Acidosis, unspecified Status: Acute Assessment and Plan: * resolved * follow CO2 levels (6) Atrial flutter: Code(s): I48.92 - Unspecified atrial flutter Status: Acute Assessment and Plan: * as noted by events early on 11/05 * rate controlled * Cardiology recommendations noted * on metoprolol * was on IV amiodarone (temporary measure) * Echo noted (on 11/07) * left ventricular systolic function is hyperdynamic, estimated at > 70% * left ventricular diastolic function is grade I diastolic dysfunction * no aortic valve stenosis * mild tricuspid valve regurgitation * on anticoagulation (7) Elevated troponin: Code(s): R79.89 - Other specified abnormal findings of blood chemistry Status: Acute Assessment and Plan: * due to DONOVAN versus atrial fluttter with RVR * trend noted * Cardiology comments noted (8) Hypertension: Code(s): I10 - Essential (primary) hypertension Status: Chronic Assessment and Plan: * running on the high side * just started low-dose lisinopril * follow trend of hemodynamics Will continue to follow. L Subjective Date/time seen: 11/27/24 12:01 Interval history: Follow-up for acute kidney injury/acute renal failure. Chart reviewed since last seen -- renal function/creatinine remains stable but now having issues with breathing/respiratory status; drop in sodium level noted as well; also complaining of generalized fatigue and weakness at the time of my visit. Exam 2 Narrative: General: elderly but WD/WN female in NAD Heart: RRR, normal S1 and S2; no rub Lungs: coarse and decreased at bases Abdomen: soft, nontender, positive bowel sounds Extremities: no cyanosis or clubbing; 1+ edema Skin: no nodules Objective Data Vital Signs Vital Signs: Vital Signs Temp Pulse Resp BP Pulse Ox O2 Del Method O2 Flow Rate 11/27/24 12:00 63 11/27/24 08:38 73 11/27/24 08:35 93 Nasal Cannula 2 11/27/24 08:00 74 11/27/24 07:21 70 20 11/27/24 04:00 80 11/27/24 03:59 97.9 F 73 20 171/49 H 92 11/27/24 00:00 61 11/26/24 20:43 97.8 F 66 20 161/47 H 94 11/26/24 20:00 66 11/26/24 20:00 94 Nasal Cannula 2 Intake/Output Intake/Output: Intake & Output 11/24/24 11/25/24 11/26/24 11/27/24 23:59 23:59 23:59 23:59 Intake Total 1500 0915 918 6388 Output Total 1 1 Balance 1499 1600 529 3373 Meds/Results Medications: Active Medications Generic Name Dose Route Start Last Admin Trade Name Freq PRN Reason Stop Dose Admin Acetaminophen 650 mg 11/06/24 12:18 11/27/24 08:39 Acetaminophen 325 Mg Tablet PO 650 mg Q4H PRN Administration Headache Albuterol/Ipratropium 3 ml 11/26/24 20:00 11/27/24 13:50 Ipratropium 0.5 Mg/Albuterol Sulfate 2.5 Mg (Base) Ampul.Neb 3 Ml INHALATION 3 ml Q6HRT KEVIN Administration Alteplase, Recombinant 4 mg 11/26/24 07:05 11/26/24 10:04 Alteplase 2 Mg Vial (Cathflo) IV PUSH 4 mg ONCE PRN Administration Line Occlusion Apixaban 2.5 mg 11/15/24 21:00 11/20/24 10:28 Apixaban 2.5 Mg Tablet PO 2.5 mg On Hold: 11/20/24 16:42 Q12HR KEVIN Administration Calcium Carbonate 500 mg 11/26/24 17:00 11/27/24 17:02 Calcium/Vitamin D 500 Mg/5 Mcg (200 I.U.) Tablet PO 500 mg BIDWM KEVIN Administration Cyclosporine 1 drop 11/03/24 21:00 11/27/24 08:39 Cyclosporine 0.4 Ml Ophth Solution EACH EYE 1 drop Q12HR KEVIN Administration Fidaxomicin 200 mg 11/23/24 13:30 11/27/24 08:38 Fidaxomicin 200 Mg Tablet PO 12/02/24 21:01 200 mg Q12HR KEVIN Administration Furosemide 20 mg 11/24/24 09:30 11/27/24 17:02 Furosemide 20 Mg Tablet PO 20 mg BID KEVIN Administration Lisinopril 10 mg 11/26/24 09:00 11/27/24 08:39 Lisinopril 10 Mg Tablet PO 10 mg DAILY KEVIN Administration Magnesium Oxide 400 mg 11/24/24 09:00 11/27/24 08:38 Magnesium Oxide 400 Mg Tablet PO 400 mg QAM KEVIN Administration Metoprolol Tartrate 50 mg 11/08/24 09:00 11/27/24 17:02 Metoprolol Tartrate 50 Mg Tab PO 50 mg BID KEVIN Administration Sodium Chloride 10 ml 11/06/24 22:00 11/27/24 15:17 Central Line Flush IV PUSH 10 ml Q8HR KEVIN Administration Sodium Chloride 10 ml 11/06/24 14:29 Central Line Flush IV PUSH PRN PRN with TPN bag changes Sodium Chloride 20 ml 11/06/24 14:29 11/19/24 05:57 Central Line Flush IV PUSH 20 ml PRN PRN Administration after blood draws Sodium Chloride 1 spray 11/15/24 16:13 11/15/24 17:13 Saline 0.65% Rodrigo Soln 44 Ml Btl NASAL 1 spray Q6HR PRN Administration Congestion Sodium Chloride 1 gm 11/17/24 09:00 11/27/24 17:02 Sodium Chloride 1 Gm Tablet PO 1 gm BID KEVIN Administration Trazodone HCl 50 mg 11/03/24 21:00 11/26/24 20:40 Trazodone Hcl 50 Mg Tablet PO 50 mg QHS KEVIN Administration Radiology Results: ITS Impressions Abdomen/Pelvis CT 11/04/24 12:36 IMPRESSION: 1. No evidence of bowel perforation. 2. Persistent severe pancolitis. 3. New small scattered ascites. 4. New small pleural effusions and significant bibasilar atelectasis. Renal Ultrasound 11/04/24 19:07 Impression: Simple appearing left renal cyst. No significant medical renal disease or obstruction Abdomen X-Ray 11/05/24 16:02 Impression: 1. Findings concerning for small bowel obstruction. CT is suggested Chest/Abdomen/Pelvis CT 11/05/24 17:04 IMPRESSION: 1. Diffuse colitis detailed above, correlate for underlying pseudomembranous colitis. No perforation or abscess. Follow-up recommended to assess. 2. CHF with superimposed probable bronchopneumonia. 3. Incidental findings above. Contrast-enhanced MRI recommended Head CT 11/06/24 12:46 Impression: 1.No acute intracranial abnormality. Venous Doppler Study 11/19/24 18:32 Impression: Negative for DVT. Chest CT 11/20/24 16:02 IMPRESSION: 1. Increase in size of moderate sized bilateral posterior layering pleural effusions with secondary dependent atelectasis including complete collapse of the bilateral lower lobes. 2. Moderate amount of ascites in the visualized upper abdomen. 3. Mildly enlarged prevascular lymph node and the anterior mediastinum which is most likely reactive. Thoracentesis Ultrasound 11/21/24 15:20 IMPRESSION: 1. Successful ultrasound-guided thoracentesis yielding 500 mL of yellowish fluid. Chest X-Ray 11/26/24 14:25 Impression: CHF. Superimposed pneumonia is suspected Labs Labs: Laboratory Tests 11/27/24 05:48 11/27/24 05:48 Calcium 7.7 L Phosphorus 3.0 Magnesium 1.4 L Total Bilirubin 0.3 AST 83 H ALT 42 H Alkaline Phosphatase 63 Total Protein 4.8 L Albumin 2.4 L
[2024-11-27] MEDS: MAGNESIUM SULFATE 3GM/D5W100ML 3 GM/100 ML BAG IVPB (12:16)
--- NOTE | 2024-11-27 15:02 | P.PNIM_ITS ---
Progress Note: A&P Assessment and Plan (1) Clostridium difficile colitis: Code(s): A04.72 - Enterocolitis due to Clostridium difficile, not specified as recurrent Status: Acute Assessment and Plan: - Metronidazole complete from 11/08/2024 to 11/15/2024 - per ID: maintain planned pulse/ taper with oral vancomycin. Currently at 250 mg Q 6 hours changed at 11/16/2024. would plan q.8 hour dosing of oral vancomycin starting 11/30 and then decrease to twice daily dosing on 12/07. daily doses starting on 12/14 and then every other day dosing x2 weeks starting on 12/21/2024. - monitor stool output while tapering vanc - Zosyn discontinued - leukocytosis and diarrhea improving - continue Banatrol -Appreciate ID recommendations (2) Acute hypoxic respiratory failure: Code(s): J96.01 - Acute respiratory failure with hypoxia Status: Acute Assessment and Plan: -Pulmonology consulted. Less likely pneumonia, pneumonia specific antibiotics discontinued. Status post thoracentesis on 11/08/2024 showing exudative effusion, not infectious, macrophage predominant, likely related to colitis/fluid overload related to acute kidney injury. - echo on 10/08 demonstrating normal left ventricular function. - CXR 11/19 with persistent left lower lobe atelectasis with associated effusion - CT chest 11/20 with increase in size of moderate-sized bilateral posterior layering pleural effusions with secondary dependent atelectasis including complete collapse of the bilateral lobes - encouraged incentive spirometry, pulmonary hygiene - intermittently requiring oxygen and tachypneic - repeat thoracentesis ordered (3) Pleural effusion: Code(s): J90 - Pleural effusion, not elsewhere classified Status: Acute Assessment and Plan: - management as above (4) Hyponatremia: Code(s): E87.1 - Hypo-osmolality and hyponatremia Status: Acute Assessment and Plan: - nephrology on board. Multiple interventions including dialysis, IV fluids, diuretics, salt tabs, 3% hypertonic with minimal improvement. Na 124 which is minimally improved, but patient's intake is improving so hoping sodium will continue to rise. - Nephrology following (5) Anemia: Code(s): D64.9 - Anemia, unspecified Status: Acute Assessment and Plan: - Hgb 11.7 on admission, trended down to 9.0 11/21. Denied signs of bleeding, - likely multifactorial in setting of renal failure, IV fluids, critical illness - check iron studies (6) Adjustment disorder with depressed mood: Code(s): F43.21 - Adjustment disorder with depressed mood Status: Acute Assessment and Plan: - intermittently refused therapy. She is depressed because she has never been this ill before, relatively healthy previous to this admission. She denies adamantly any suicidal ideation, she also refuses to see Psychiatry or to start any pharmacological therapy. - affect seems to be improving. She worked with therapy 11/19. Encouraged to continue participation. Reassurance provided. - continue trazodone qHS (7) Hypertension: Code(s): I10 - Essential (primary) hypertension Status: Chronic Assessment and Plan: -Lisinopril and spironolactone on hold due to DONOVAN -Amlodipine initially on hold to allow titration of beta-christine. Will resume due to high BP trend. - monitor BP (8) Atrial flutter: Code(s): I48.92 - Unspecified atrial flutter Status: Acute Assessment and Plan: -New diagnosis, now converted to sinus rhythm. -Continue metoprolol 50 mg p.o. b.i.d.. -Digoxin stopped due to renal failure - continue Eliquis -Keep potassium greater than 4 magnesium greater than 2, keep renal failure in consideration when replacing electrolytes (9) Acute kidney injury: Code(s): N17.9 - Acute kidney failure, unspecified Status: Acute Assessment and Plan: -Infection vs Contrast related injury vs prerenal. Creatinine normal 2 days prior to admission Nephrology is following, right IJ Cecil dialysis catheter placed on 11/10/2024. -Dialysis started on 11/10/2024. No dialysis for some time now, Nephrology continues to manage. -Renal ultrasound without obstruction, urine electrolytes pre renal, urine eosinophils negative, CPK normal, mild proteinuria -Holding lisinopril and spironolactone -Holland catheter in place -Follow renal function labs and urine output -Disposition pending. When ready to pull out the IJ, hold Eliquis for at least 24 hours. 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 patient symptoms were improving and stools were forming however today patient stats she had several loose BM last night today feels tide and weak, her Mag this morning was low, and supplemented, will follow instruction from ID and further recommendation to follow. patient with DONOVAN, seen by piercing machine operator and her Scr is improving however, she does have proteinuria and the piercing machine operator added lisinopril. her potassium and calcium are low being supplement, will monitor. patient family is present and gave updates Code status: full code DVT prophylaxis: [place] Dispo: possibly RO when medically stable. Care coordination following. Subjective Date/time seen: 11/27/24 15:02 Interval history: 78 y/o female with severe recurrent C Diff suspect 2/2 Augmentin taken recently, is seen by ID and being treated with IV Flagyl and increase high dose oral vancomycin 500mg qid currently, today patient symptoms slightly worsen as she had 4 loose BM last night and two however her stools are start to form, over all she is feeling better, lying in the bed, she did participate with PT , , patient white counts are trending down, patient is seen by ID being treated IV Flagyl and high dose oral Vancomycin 500 mg qid, will monitor and taper vancomycin as BM frequency improving and start to form stool. patient symptoms were improving and stools were forming however today patient stats she had several loose BM last night today feels tide and weak, her Mag this morning was low, and supplemented, will follow instruction from ID and further recommendation to follow. patient with DONOVAN, seen by piercing machine operator and her Scr is improving however, she does have proteinuria and the piercing machine operator added lisinopril. her potassium and calcium are low being supplement, will monitor. patient family is present and gave updates Review of Systems Review of Systems: 12 systems were reviewed and are negativ e except for as per HPI. All systems reviewed & are unremarkable except as noted in HPI and below (Subjective) Exam Narrative: Patient is comfortable, NAD HEENT: eyes are clear and none icteric LUNGS:CTA HEART: RR S1S2 ABD: BS+, Soft and nontender Lower extremities: no edema SKIN: nonjaundiced Neuro: grossly intact. Objective Data Vital Signs Vital Signs: Vital Signs - 24 hr 11/26/24 15:15 11/26/24 15:25 11/26/24 16:00 Temperature Pulse Rate 67 68 62 Respiratory Rate 20 20 Blood Pressure Pulse Oximetry Oxygen Delivery Oxygen Flow Rate 11/26/24 16:35 11/26/24 20:00 11/26/24 20:00 Temperature Pulse Rate 68 66 Respiratory Rate Blood Pressure Pulse Oximetry 94 Oxygen Delivery Nasal Cannula Oxygen Flow Rate 2 11/26/24 20:43 11/27/24 00:00 11/27/24 03:59 Temperature 36.6 C 36.6 C Pulse Rate 66 61 73 Respiratory Rate 20 20 Blood Pressure 161/47 H 171/49 H Pulse Oximetry 94 92 Oxygen Delivery Oxygen Flow Rate 11/27/24 04:00 11/27/24 07:21 11/27/24 08:00 Temperature Pulse Rate 80 70 74 Respiratory Rate 20 Blood Pressure Pulse Oximetry Oxygen Delivery Oxygen Flow Rate 11/27/24 08:35 11/27/24 08:38 11/27/24 12:00 Temperature Pulse Rate 73 63 Respiratory Rate Blood Pressure Pulse Oximetry 93 Oxygen Delivery Nasal Cannula Oxygen Flow Rate 2 11/27/24 13:50 11/27/24 14:00 Temperature 36.4 C Pulse Rate 82 64 Respiratory Rate 20 26 H Blood Pressure 159/50 H Pulse Oximetry 96 Oxygen Delivery Oxygen Flow Rate Intake/Output Intake/Output: Intake & Output 11/24/24 11/25/24 11/26/24 11/27/24 23:59 23:59 23:59 23:59 Intake Total 1500 7015 122 6314 Output Total 1 1 Balance 1499 0158 276 8309 Meds/Results Medications: Active Medications Generic Name Dose Route Start Last Admin Trade Name Freq PRN Reason Stop Dose Admin Acetaminophen 650 mg 11/06/24 12:18 11/27/24 08:39 Acetaminophen 325 Mg Tablet PO 650 mg Q4H PRN Administration Headache Albuterol/Ipratropium 3 ml 11/26/24 20:00 11/27/24 13:50 Ipratropium 0.5 Mg/Albuterol Sulfate 2.5 Mg (Base) Ampul.Neb 3 Ml INHALATION 3 ml Q6HRT KEVIN Administration Alteplase, Recombinant 4 mg 11/26/24 07:05 11/26/24 10:04 Alteplase 2 Mg Vial (Cathflo) IV PUSH 4 mg ONCE PRN Administration Line Occlusion Apixaban 2.5 mg 11/15/24 21:00 11/20/24 10:28 Apixaban 2.5 Mg Tablet PO 2.5 mg On Hold: 11/20/24 16:42 Q12HR KEVIN Administration Calcium Carbonate 500 mg 11/26/24 17:00 11/27/24 08:38 Calcium/Vitamin D 500 Mg/5 Mcg (200 I.U.) Tablet PO 500 mg BIDWM KEVIN Administration Cyclosporine 1 drop 11/03/24 21:00 11/27/24 08:39 Cyclosporine 0.4 Ml Ophth Solution EACH EYE 1 drop Q12HR KEVIN Administration Fidaxomicin 200 mg 11/23/24 13:30 11/27/24 08:38 Fidaxomicin 200 Mg Tablet PO 12/02/24 21:01 200 mg Q12HR KEVIN Administration Furosemide 20 mg 11/24/24 09:30 11/27/24 08:39 Furosemide 20 Mg Tablet PO 20 mg BID KEVIN Administration Lisinopril 10 mg 11/26/24 09:00 11/27/24 08:39 Lisinopril 10 Mg Tablet PO 10 mg DAILY KEVIN Administration Magnesium Oxide 400 mg 11/24/24 09:00 11/27/24 08:38 Magnesium Oxide 400 Mg Tablet PO 400 mg QAM KEVIN Administration Metoprolol Tartrate 50 mg 11/08/24 09:00 11/27/24 08:38 Metoprolol Tartrate 50 Mg Tab PO 50 mg BID KEVIN Administration Sodium Chloride 10 ml 11/06/24 22:00 11/27/24 12:17 Central Line Flush IV PUSH 10 ml Q8HR KEVIN Administration Sodium Chloride 10 ml 11/06/24 14:29 Central Line Flush IV PUSH PRN PRN with TPN bag changes Sodium Chloride 20 ml 11/06/24 14:29 11/19/24 05:57 Central Line Flush IV PUSH 20 ml PRN PRN Administration after blood draws Sodium Chloride 1 spray 11/15/24 16:13 11/15/24 17:13 Saline 0.65% Rodrigo Soln 44 Ml Btl NASAL 1 spray Q6HR PRN Administration Congestion Sodium Chloride 1 gm 11/17/24 09:00 11/27/24 08:38 Sodium Chloride 1 Gm Tablet PO 1 gm BID KEVIN Administration Trazodone HCl 50 mg 11/03/24 21:00 11/26/24 20:40 Trazodone Hcl 50 Mg Tablet PO 50 mg QHS KEVIN Administration Radiology Results: ITS Impressions Abdomen/Pelvis CT 11/04/24 12:36 IMPRESSION: 1. No evidence of bowel perforation. 2. Persistent severe pancolitis. 3. New small scattered ascites. 4. New small pleural effusions and significant bibasilar atelectasis. Renal Ultrasound 11/04/24 19:07 Impression: Simple appearing left renal cyst. No significant medical renal disease or obstruction Abdomen X-Ray 11/05/24 16:02 Impression: 1. Findings concerning for small bowel obstruction. CT is suggested Chest/Abdomen/Pelvis CT 11/05/24 17:04 IMPRESSION: 1. Diffuse colitis detailed above, correlate for underlying pseudomembranous colitis. No perforation or abscess. Follow-up recommended to assess. 2. CHF with superimposed probable bronchopneumonia. 3. Incidental findings above. Contrast-enhanced MRI recommended Head CT 11/06/24 12:46 Impression: 1.No acute intracranial abnormality. Venous Doppler Study 11/19/24 18:32 Impression: Negative for DVT. Chest CT 11/20/24 16:02 IMPRESSION: 1. Increase in size of moderate sized bilateral posterior layering pleural effusions with secondary dependent atelectasis including complete collapse of the bilateral lower lobes. 2. Moderate amount of ascites in the visualized upper abdomen. 3. Mildly enlarged prevascular lymph node and the anterior mediastinum which is most likely reactive. Thoracentesis Ultrasound 11/21/24 15:20 IMPRESSION: 1. Successful ultrasound-guided thoracentesis yielding 500 mL of yellowish fluid. Chest X-Ray 11/26/24 14:25 Impression: CHF. Superimposed pneumonia is suspected Labs Labs: Laboratory Results - last 24 hr 11/27/24 05:48 WBC 5.9 RBC 2.83 L Hgb 8.6 L Hct 26.9 L MCV 95.1 MCH 30.4 MCHC 32.0 RDW 14.8 H Plt Count 197 MPV 9.2 Immature Gran % (Auto) 0.8 H Neut % (Auto) 73.8 H Lymph % (Auto) 12.2 L [place] % (Auto) 9.8 H Eos % (Auto) 2.4 Baso % (Auto) 1.0 Lymph # (Auto) 0.72 L [place] # (Auto) 0.6 Eos # (Auto) 0.1 Baso # (Auto) 0.1 Abs Immat Gran (auto) 0.05 H Absolute Neuts (auto) 4.4 Absolute Nucleated RBC 0.000 Nucleated RBC % 0.0 Sodium 126 L Potassium 3.7 Chloride 98 Carbon Dioxide 27 Anion Gap 1 L BUN 19 H Creatinine 0.80 Estim Creat Clear Calc 52 Estimated GFR > 60 Glucose 125 H Calcium 7.7 L Phosphorus 3.0 Magnesium 1.4 L Total Bilirubin 0.3 AST 83 H ALT 42 H Alkaline Phosphatase 63 Total Protein 4.8 L Albumin 2.4 L Quality VTE Prophylaxis VTE prophylaxis: mechanical ordered and pharmacologic ordered
--- NOTE | 2024-11-27 19:10 | P.PNINF_ITS ---
Progress Note: A&P Assessment and Plan (1) Clostridium difficile colitis: Code(s): A04.72 - Enterocolitis due to Clostridium difficile, not specified as recurrent Status: Acute Assessment and Plan: -Severe C.difficile colitis. Trial high dose oral vanc/flagyl Transtion to dificid 11/24- . (2) Leukocytosis: Code(s): D72.829 - Elevated white blood cell count, unspecified Status: Acute Assessment and Plan: -Reactive from C.difficile infection -now resolved. (3) Diverticulitis large intestine: Code(s): K57.32 - Diverticulitis of large intestine without perforation or abscess without bleeding Status: Acute Assessment and Plan: -Diagnosed one week prior to admission -S/P Augmentin x 5 days prior to admission -Discontinued Zosyn on 11/10/24 as patient has completed 8 day course for diverticulitis (4) Colitis: Code(s): K52.9 - Noninfective gastroenteritis and colitis, unspecified Status: Acute Assessment and Plan: -Pancolitis noted on CT -Due to C.difficile colitis (5) Acute kidney injury: Code(s): N17.9 - Acute kidney failure, unspecified Status: Acute Assessment and Plan: -Management as per Nephrology service -Plans for short-term HD (6) Pleural effusion: Code(s): J90 - Pleural effusion, not elsewhere classified Status: Acute Assessment and Plan: -S/P Left thoracentesis 11/08/24 -Pleural fluid studies not consistent with empyema -Pleural fluid cultures negative for growth -Current CT scan shows persistence of bilateral posterior layering pleural effusions with complete collapse of bilateral lower lobes. -Management as per Pulmonary service Plan -- continue Dificid trial. At least 10 days Trial to limit dairy with frequent stools but overall more formed. Follow abd exam s/p 2 trials of IV flagyl. No indication for additional Plan for pharmacy to fill Dificid as outpatient so patient can take with her to skilled facility to complete 10 day total course. Stop IV Flagyl. Will need oral vanc taper after improvement We can consider fecal transplant options in the outpatient setting Continue to monitor shortness of breath. -- Monitor abdominal exam. -- continue to monitor stool output. Patient was seen via video telehealth consultation with the assistance of staff. Chart, data, and patient independently reviewed. Patient was located at [facility] while I was located in my [place] office. Received verbal consent from patient. Subjective Date/time seen: 11/27/24 19:10 Interval history: having frequent, semiformed stools. no abd cramping. Exam Narrative: Awake. oriented x 3 on 2lNC no phlebitis No rash sitting up in bed Objective Data Vital Signs Vital Signs: Vital Signs - 24 hr 11/26/24 20:00 11/26/24 20:00 11/26/24 20:43 Temperature 36.6 C Pulse Rate 66 66 Respiratory Rate 20 Blood Pressure 161/47 H Pulse Oximetry 94 94 Oxygen Delivery Nasal Cannula Oxygen Flow Rate 2 11/27/24 00:00 11/27/24 03:59 11/27/24 04:00 Temperature 36.6 C Pulse Rate 61 73 80 Respiratory Rate 20 Blood Pressure 171/49 H Pulse Oximetry 92 Oxygen Delivery Oxygen Flow Rate 11/27/24 07:21 11/27/24 08:00 11/27/24 08:35 Temperature Pulse Rate 70 74 Respiratory Rate 20 Blood Pressure Pulse Oximetry 93 Oxygen Delivery Nasal Cannula Oxygen Flow Rate 2 11/27/24 08:38 11/27/24 12:00 11/27/24 13:50 Temperature Pulse Rate 73 63 82 Respiratory Rate 20 Blood Pressure Pulse Oximetry Oxygen Delivery Oxygen Flow Rate 11/27/24 14:00 11/27/24 16:00 11/27/24 17:02 Temperature 36.4 C Pulse Rate 64 59 L 64 Respiratory Rate 26 H Blood Pressure 159/50 H Pulse Oximetry 96 Oxygen Delivery Oxygen Flow Rate Intake/Output Intake/Output: Intake & Output 11/24/24 11/25/24 11/26/24 11/27/24 23:59 23:59 23:59 23:59 Intake Total 1500 1525 725 7764 Output Total 1 1 Balance 1499 1814 750 6884 Meds/Results Medications: Active Medications Generic Name Dose Route Start Last Admin Trade Name Freq PRN Reason Stop Dose Admin Acetaminophen 650 mg 11/06/24 12:18 11/27/24 08:39 Acetaminophen 325 Mg Tablet PO 650 mg Q4H PRN Administration Headache Albuterol/Ipratropium 3 ml 11/26/24 20:00 11/27/24 13:50 Ipratropium 0.5 Mg/Albuterol Sulfate 2.5 Mg (Base) Ampul.Neb 3 Ml INHALATION 3 ml Q6HRT KEVIN Administration Alteplase, Recombinant 4 mg 11/26/24 07:05 11/26/24 10:04 Alteplase 2 Mg Vial (Cathflo) IV PUSH 4 mg ONCE PRN Administration Line Occlusion Apixaban 2.5 mg 11/15/24 21:00 11/20/24 10:28 Apixaban 2.5 Mg Tablet PO 2.5 mg On Hold: 11/20/24 16:42 Q12HR KEVIN Administration Calcium Carbonate 500 mg 11/26/24 17:00 11/27/24 17:02 Calcium/Vitamin D 500 Mg/5 Mcg (200 I.U.) Tablet PO 500 mg BIDWM KEVIN Administration Cyclosporine 1 drop 11/03/24 21:00 11/27/24 08:39 Cyclosporine 0.4 Ml Ophth Solution EACH EYE 1 drop Q12HR KEVIN Administration Fidaxomicin 200 mg 11/23/24 13:30 11/27/24 08:38 Fidaxomicin 200 Mg Tablet PO 12/02/24 21:01 200 mg Q12HR KEVIN Administration Furosemide 20 mg 11/24/24 09:30 11/27/24 17:02 Furosemide 20 Mg Tablet PO 20 mg BID KEVIN Administration Lisinopril 10 mg 11/26/24 09:00 11/27/24 08:39 Lisinopril 10 Mg Tablet PO 10 mg DAILY KEVIN Administration Magnesium Oxide 400 mg 11/24/24 09:00 11/27/24 08:38 Magnesium Oxide 400 Mg Tablet PO 400 mg QAM KEVIN Administration Metoprolol Tartrate 50 mg 11/08/24 09:00 11/27/24 17:02 Metoprolol Tartrate 50 Mg Tab PO 50 mg BID KEVIN Administration Sodium Chloride 10 ml 11/06/24 22:00 11/27/24 15:17 Central Line Flush IV PUSH 10 ml Q8HR KEVIN Administration Sodium Chloride 10 ml 11/06/24 14:29 Central Line Flush IV PUSH PRN PRN with TPN bag changes Sodium Chloride 20 ml 11/06/24 14:29 11/19/24 05:57 Central Line Flush IV PUSH 20 ml PRN PRN Administration after blood draws Sodium Chloride 1 spray 11/15/24 16:13 11/15/24 17:13 Saline 0.65% Rodrigo Soln 44 Ml Btl NASAL 1 spray Q6HR PRN Administration Congestion Sodium Chloride 1 gm 11/17/24 09:00 11/27/24 17:02 Sodium Chloride 1 Gm Tablet PO 1 gm BID KEVIN Administration Trazodone HCl 50 mg 11/03/24 21:00 11/26/24 20:40 Trazodone Hcl 50 Mg Tablet PO 50 mg QHS KEVIN Administration Radiology Results: ITS Impressions Abdomen/Pelvis CT 11/04/24 12:36 IMPRESSION: 1. No evidence of bowel perforation. 2. Persistent severe pancolitis. 3. New small scattered ascites. 4. New small pleural effusions and significant bibasilar atelectasis. Renal Ultrasound 11/04/24 19:07 Impression: Simple appearing left renal cyst. No significant medical renal disease or obstruction Abdomen X-Ray 11/05/24 16:02 Impression: 1. Findings concerning for small bowel obstruction. CT is suggested Chest/Abdomen/Pelvis CT 11/05/24 17:04 IMPRESSION: 1. Diffuse colitis detailed above, correlate for underlying pseudomembranous colitis. No perforation or abscess. Follow-up recommended to assess. 2. CHF with superimposed probable bronchopneumonia. 3. Incidental findings above. Contrast-enhanced MRI recommended Head CT 11/06/24 12:46 Impression: 1.No acute intracranial abnormality. Venous Doppler Study 11/19/24 18:32 Impression: Negative for DVT. Chest CT 11/20/24 16:02 IMPRESSION: 1. Increase in size of moderate sized bilateral posterior layering pleural effusions with secondary dependent atelectasis including complete collapse of the bilateral lower lobes. 2. Moderate amount of ascites in the visualized upper abdomen. 3. Mildly enlarged prevascular lymph node and the anterior mediastinum which is most likely reactive. Thoracentesis Ultrasound 11/21/24 15:20 IMPRESSION: 1. Successful ultrasound-guided thoracentesis yielding 500 mL of yellowish fluid. Chest X-Ray 11/26/24 14:25 Impression: CHF. Superimposed pneumonia is suspected Labs Labs: Laboratory Results - last 24 hr 11/27/24 05:48 WBC 5.9 RBC 2.83 L Hgb 8.6 L Hct 26.9 L MCV 95.1 MCH 30.4 MCHC 32.0 RDW 14.8 H Plt Count 197 MPV 9.2 Immature Gran % (Auto) 0.8 H Neut % (Auto) 73.8 H Lymph % (Auto) 12.2 L [place] % (Auto) 9.8 H Eos % (Auto) 2.4 Baso % (Auto) 1.0 Lymph # (Auto) 0.72 L [place] # (Auto) 0.6 Eos # (Auto) 0.1 Baso # (Auto) 0.1 Abs Immat Gran (auto) 0.05 H Absolute Neuts (auto) 4.4 Absolute Nucleated RBC 0.000 Nucleated RBC % 0.0 Sodium 126 L Potassium 3.7 Chloride 98 Carbon Dioxide 27 Anion Gap 1 L BUN 19 H Creatinine 0.80 Estim Creat Clear Calc 52 Estimated GFR > 60 Glucose 125 H Calcium 7.7 L Phosphorus 3.0 Magnesium 1.4 L Total Bilirubin 0.3 AST 83 H ALT 42 H Alkaline Phosphatase 63 Total Protein 4.8 L Albumin 2.4 L
[2024-11-27] MEDS: FUROSEMIDE INJ 40 MG/4 ML VIAL 20 MG IV PUSH (21:55)
[2024-11-28] VITALS (15 sets, daily range): BP systolic 166–169; BP diastolic 48–49; PULSE 61–76; RESP 16–20; TEMP 36.4–37.4; O2SAT 92–95
[2024-11-28] MEDS: IPRATROPIUM 0.5 MG/ALBUTEROL SULFATE 2.5 MG (BASE) AMPUL.NEB 3 ML INHALATION ×3 (01:34→21:39)
--- NOTE | 2024-11-28 01:34 | PCRCNOTE ---
Pt declined 0200, stated she would like to sleep, she will call if a treatment is needed
[2024-11-28] MEDS: CENTRAL LINE FLUSH 10 ML IV PUSH ×3 (05:25→21:54)
[2024-11-28 05:38] LABS: Hematocrit 26.9 % (37.0-47.0); Hemoglobin 8.8 g/dL (12.0-15.0); Immature Granulocyte Percent A 1.0 % (0-0.5); Lymphocytes Absolute Auto 0.87 K/mm3 (0.9-3.2); Mean Corpuscular HGB Conc 32.7 g/dl (32-36); Mean Corpuscular Hemoglobin 30.7 pg (26-34); Mean Corpuscular Volume 93.7 fl (80-100); Nucleated Red Blood Cells Absolute Auto 0.000 K/mm3 (0.0-0.012); Nucleated Red Blood Cells Perc 0.0 % (0.0-0.2); Platelet Count Result 195 k/mm3 (150-375); Red Blood Count 2.87 M/mm3 (4.2-5.4); White Blood Count 5.3 K/mm3 (4.5-10.0)
[2024-11-28 06:00] LABS: Alanine Aminotransferase 114 U/L (6-35); Albumin Level 2.5 g/dL (3.5-5.1); Alkaline Phosphatase 70 U/L (38-126); Anion Gap 3 mmol/L (4-12); Aspartate Amino Transferase 190 U/L (14-36); Bilirubin,Total 0.3 mg/dL (0.2-1.3); Blood Urea Nitrogen 18 mg/dL (7-17); Calcium 7.6 mg/dL (8.4-10.2); Carbon Dioxide 29 mmol/L (22-30); Chloride 96 mmol/L (98-107); Estimated CRCL calculation 49 ml/min; Estimated Glomerular Filt Rate > 60; Glucose 117 mg/dL (65-110); Magnesium 1.7 mg/dL (1.6-2.3); Potassium 3.5 mmol/L (3.4-5.0); Sodium 128 mmol/L (137-145); Total Protein 5.0 g/dL (6.3-8.2)
[2024-11-28] MEDS: METOPROLOL TARTRATE 50 MG TAB PO ×2 (08:17→16:33)
[2024-11-28] MEDS: CALCIUM/VITAMIN D 500 MG/5 MCG (200 I.U.) TABLET PO ×2 (08:17→16:34)
[2024-11-28] MEDS: FUROSEMIDE 20 MG TABLET PO (08:17)
[2024-11-28] MEDS: FIDAXOMICIN 200 MG TABLET PO (08:18)
[2024-11-28] MEDS: SODIUM CHLORIDE 1 GM TABLET PO ×2 (08:18→16:34)
[2024-11-28] MEDS: MAGNESIUM OXIDE 400 MG TABLET PO (08:18)
[2024-11-28] MEDS: cycloSPORINE 0.4 ML OPHTH SOLUTION 1 DROP EACH EYE ×2 (08:18→21:53)
--- NOTE | 2024-11-28 11:25 | PCNFU ---
Nutrition Follow-Up Complete: Inadequate oral intake related to altered GI function as evidenced by diverticulitis Goal: Diet advancement Improve PO intake when diet advanced Pt current nutrition is Heart Healthy with diet supplements. Last recorded weight is 84.6 kg Bowel Motility: Last reported BM 11/27 Labs Reviewed: Glu 117, BUN 18, Na 128, Alb 2.5, Hgb 8.8, Hct 26.9 Meds Noted: Lisinopril Skin: WNL Additional Notes: Patient remains on a heart healthy diet. Oral Intake improving to about 50% of meals. Cdiff+, Banatrol Plus BID for stool bulking and diet supplement changed to ensure clear TID for 240 kcal and 8 gm protein. Agree with diet orders. Monitoring diet orders, weights, labs, plan of care Follow up in 5 days
--- NOTE | 2024-11-28 11:44 | PM.PNNEP ---
Progress Note: A&P Assessment and Plan (1) Acute kidney injury: Code(s): N17.9 - Acute kidney failure, unspecified Status: Acute Assessment and Plan: resolved - creatinine is back to normal suspect multifactorial etiology: prerenal factors infection/early sepsis (diverticulitis/colitis) contrast exposure (CT of A/P on 11/01) relative hypotension on presentation JAMIE-I/diuretic use prior to admission urinary retention(?) - difficulty urinating on admission so gamble catheter placed other (?) evaluation to date noted: renal ultrasound without obstruction urine electrolytes prerenal urine eosinophils negative CPK normal mild proteinuria follow trend of repeat labs and UOP (2) Clostridium difficile colitis: Code(s): A04.72 - Enterocolitis due to Clostridium difficile, not specified as recurrent Status: Acute Assessment and Plan: slow improvement demonstrated by positive C. diff toxin assay also noted by CT imaging to date: CT of C/A/P (11/05): Diffuse colitis detailed above, correlate for underlying pseudomembranous colitis. No perforation or abscess CT of A/P (11/04): No evidence of bowel perforation; persistent severe pancolitis CT of A/P (11/03): Interval progression of radiographically uncomplicated selby colitis which could be infectious, inflammatory or less likely ischemic in etiology CT of A/P (11/01): Sigmoid diverticulitis. No perforation or abscess complicated by diverticulitis follow culture data follow trend of WBC on antibiotics Infectious Disease following (3) Acute hypoxic respiratory failure: Code(s): J96.01 - Acute respiratory failure with hypoxia Status: Acute Assessment and Plan: improvement noted multifactorial etiology: bilateral pleural effusions atelectasis fluid overload atrial flutter with rapid ventricular response pancolitis possible pneumonia (?) s/p thoracentesis (on 11/08) recent CXR noted IV lasix today (along with oral lasix) consider repeat thoracentesis?. (4) Hyponatremia: Code(s): E87.1 - Hypo-osmolality and hyponatremia Status: Acute Assessment and Plan: possible chronic component -- sodium seems to run 129 - 136mmol/L since 2021 presumably worsen by: DONOVAN/ARF prerenal factors pleural effusions possible pneumonia urinary retention mild improvement s/p intial IVF resuscitation no improvement with repeat trial of IVFs evaluation to date: repeat urine electrolytes (11/17) non-prerenal noted abnormal SPEP and UPEP -- checking immunofixation TSH/thyroid studies noted cortisol okay getting lasix to treat her pleural effusions and edema, and salt tablets to keep her sodium from dropping. follow trend of sodium levels (5) Metabolic acidosis: Code(s): E87.20 - Acidosis, unspecified Status: Acute Assessment and Plan: resolved follow CO2 levels (6) Atrial flutter: Code(s): I48.92 - Unspecified atrial flutter Status: Acute Assessment and Plan: as noted by events early on 11/05 rate controlled Cardiology recommendations noted on metoprolol was on IV amiodarone (temporary measure) Echo noted (on 11/07) left ventricular systolic function is hyperdynamic, estimated at > 70% left ventricular diastolic function is grade I diastolic dysfunction no aortic valve stenosis mild tricuspid valve regurgitation on anticoagulation (7) Elevated troponin: Code(s): R79.89 - Other specified abnormal findings of blood chemistry Status: Acute Assessment and Plan: due to DONOVAN versus atrial fluttter with RVR trend noted Cardiology comments noted (8) Hypertension: Code(s): I10 - Essential (primary) hypertension Status: Chronic Assessment and Plan: running on the high side just started low-dose lisinopril follow trend of hemodynamics Not much else to add -- will continue to follow intermittently. Subjective Date/time seen: 11/28/24 11:44 Interval history: Follow-up for acute kidney injury/acute renal failure and hyponatremia. Renal function/creatinine as well as sodium remains relatively stable; breathing/respiratory status appears to be slowly improving; no other acute issues/events overnight or earlier this morning. Exam Narrative: General: elderly but WD/WN female in NAD Heart: RRR, normal S1 and S2; no rub Lungs: coarse and decreased at bases Abdomen: soft, nontender, positive bowel sounds Extremities: no cyanosis or clubbing; trace - 1+ edema Skin: warm and dry Objective Data Vital Signs Vital Signs: Vital Signs Temp Pulse Resp BP Pulse Ox O2 Del Method O2 Flow Rate 11/28/24 12:00 97.9 F 64 20 169/49 H 95 11/28/24 09:04 76 18 11/28/24 08:55 75 16 11/28/24 08:17 74 11/28/24 08:15 94 Nasal Cannula 2 11/28/24 08:00 75 11/28/24 05:19 97.6 F 69 18 166/48 H 94 11/28/24 04:00 76 11/28/24 00:00 61 11/27/24 21:17 81 16 11/27/24 21:11 80 16 11/27/24 20:00 65 11/27/24 20:00 81 16 93 Nasal Cannula 2 11/27/24 19:49 98.8 F 68 18 188/58 H 93 Intake/Output Intake/Output: Intake & Output 11/25/24 11/26/24 11/27/24 11/28/24 23:59 23:59 23:59 23:59 Intake Total 3719 757 5124 990 Output Total 1 800 Balance 4422 640 6026 190 Meds/Results Medications: Active Medications Generic Name Dose Route Start Last Admin Trade Name Freq PRN Reason Stop Dose Admin Acetaminophen 650 mg 11/06/24 12:18 11/27/24 08:39 Acetaminophen 325 Mg Tablet PO 650 mg Q4H PRN Administration Headache Albuterol/Ipratropium 3 ml 11/26/24 20:00 11/28/24 17:02 Ipratropium 0.5 Mg/Albuterol Sulfate 2.5 Mg (Base) Ampul.Neb 3 Ml INHALATION Not Given Q6HRT [facility] Alteplase, Recombinant 4 mg 11/26/24 07:05 11/26/24 10:04 Alteplase 2 Mg Vial (Cathflo) IV PUSH 4 mg ONCE PRN Administration Line Occlusion Apixaban 2.5 mg 11/15/24 21:00 11/20/24 10:28 Apixaban 2.5 Mg Tablet PO 2.5 mg On Hold: 11/20/24 16:42 Q12HR KEVIN Administration Calcium Carbonate 500 mg 11/26/24 17:00 11/28/24 16:34 Calcium/Vitamin D 500 Mg/5 Mcg (200 I.U.) Tablet PO 500 mg BIDWM KEVIN Administration Cyclosporine 1 drop 11/03/24 21:00 11/28/24 08:18 Cyclosporine 0.4 Ml Ophth Solution EACH EYE 1 drop Q12HR KEVIN Administration Furosemide 20 mg 11/24/24 09:30 11/28/24 16:32 Furosemide 20 Mg Tablet PO Not Given BID KEVIN Lisinopril 10 mg 11/26/24 09:00 11/28/24 08:17 Lisinopril 10 Mg Tablet PO 10 mg DAILY [facility] Administration Magnesium Oxide 400 mg 11/24/24 09:00 11/28/24 08:18 Magnesium Oxide 400 Mg Tablet PO 400 mg QAM [facility] Administration Metoprolol Tartrate 50 mg 11/08/24 09:00 11/28/24 16:33 Metoprolol Tartrate 50 Mg Tab PO 50 mg BID [facility] Administration Sodium Chloride 10 ml 11/06/24 22:00 11/28/24 12:15 Central Line Flush IV PUSH 10 ml Q8HR KEVIN Administration Sodium Chloride 10 ml 11/06/24 14:29 Central Line Flush IV PUSH PRN PRN with TPN bag changes Sodium Chloride 20 ml 11/06/24 14:29 11/19/24 05:57 Central Line Flush IV PUSH 20 ml PRN PRN Administration after blood draws Sodium Chloride 1 spray 11/15/24 16:13 11/15/24 17:13 Saline 0.65% Rodrigo Soln 44 Ml Btl NASAL 1 spray Q6HR PRN Administration Congestion Sodium Chloride 1 gm 11/17/24 09:00 11/28/24 16:34 Sodium Chloride 1 Gm Tablet PO 1 gm BID [facility] Administration Trazodone HCl 50 mg 11/03/24 21:00 11/27/24 21:54 Trazodone Hcl 50 Mg Tablet PO 50 mg QHS [facility] Administration Vancomycin HCl 125 mg 11/28/24 22:00 Vancomycin Hcl 125 Mg Oral Capsule PO 12/05/24 14:01 Q8HR [facility] Vancomycin HCl 125 mg 12/06/24 09:00 Vancomycin Hcl 250 Mg Oral Capsule PO 12/12/24 21:01 Q12HR [facility] Vancomycin HCl 125 mg 12/13/24 09:00 Vancomycin Hcl 125 Mg Oral Capsule PO 12/19/24 09:01 DAILY [facility] Vancomycin HCl 125 mg 12/20/24 09:00 Vancomycin Hcl 125 Mg Oral Capsule PO 01/01/25 09:01 Q48H [facility] Radiology Results: ITS Impressions Abdomen/Pelvis CT 11/04/24 12:36 IMPRESSION: 1. No evidence of bowel perforation. 2. Persistent severe pancolitis. 3. New small scattered ascites. 4. New small pleural effusions and significant bibasilar atelectasis. Renal Ultrasound 11/04/24 19:07 Impression: Simple appearing left renal cyst. No significant medical renal disease or obstruction Abdomen X-Ray 11/05/24 16:02 Impression: 1. Findings concerning for small bowel obstruction. CT is suggested Chest/Abdomen/Pelvis CT 11/05/24 17:04 IMPRESSION: 1. Diffuse colitis detailed above, correlate for underlying pseudomembranous colitis. No perforation or abscess. Follow-up recommended to assess. 2. CHF with superimposed probable bronchopneumonia. 3. Incidental findings above. Contrast-enhanced MRI recommended Head CT 11/06/24 12:46 Impression: 1.No acute intracranial abnormality. Venous Doppler Study 11/19/24 18:32 Impression: Negative for DVT. Chest CT 11/20/24 16:02 IMPRESSION: 1. Increase in size of moderate sized bilateral posterior layering pleural effusions with secondary dependent atelectasis including complete collapse of the bilateral lower lobes. 2. Moderate amount of ascites in the visualized upper abdomen. 3. Mildly enlarged prevascular lymph node and the anterior mediastinum which is most likely reactive. Thoracentesis Ultrasound 11/21/24 15:20 IMPRESSION: 1. Successful ultrasound-guided thoracentesis yielding 500 mL of yellowish fluid. Chest X-Ray 11/26/24 14:25 Impression: CHF. Superimposed pneumonia is suspected Labs Labs: Laboratory Tests 11/28/24 05:25 11/28/24 05:25 Calcium 7.6 L Magnesium 1.7 Total Bilirubin 0.3 AST 190 H ALT 114 H Alkaline Phosphatase 70 Total Protein 5.0 L Albumin 2.5 L
--- NOTE | 2024-11-28 11:44 | P.PNNP_ITS ---
Progress Note: A&P Assessment and Plan (1) Acute kidney injury: Code(s): N17.9 - Acute kidney failure, unspecified Status: Acute Assessment and Plan: * resolved - creatinine is back to normal * suspect multifactorial etiology: * prerenal factors * infection/early sepsis (diverticulitis/colitis) * contrast exposure (CT of A/P on 11/01) * relative hypotension on presentation * JAMIE-I/diuretic use prior to admission * urinary retention(?) - difficulty urinating on admission so gamble catheter placed * other (?) * evaluation to date noted: * renal ultrasound without obstruction * urine electrolytes prerenal * urine eosinophils negative * CPK normal * mild proteinuria * follow trend of repeat labs and UOP (2) Clostridium difficile colitis: Code(s): A04.72 - Enterocolitis due to Clostridium difficile, not specified as recurrent Status: Acute Assessment and Plan: * slow improvement * demonstrated by positive C. diff toxin assay * also noted by CT imaging to date: * CT of C/A/P (11/05): Diffuse colitis detailed above, correlate for underlying pseudomembranous colitis. No perforation or abscess * CT of A/P (11/04): No evidence of bowel perforation; persistent severe pancolitis * CT of A/P (11/03): Interval progression of radiographically uncomplicated selby colitis which could be infectious, inflammatory or less likely ischemic in etiology * CT of A/P (11/01): Sigmoid diverticulitis. No perforation or abscess * complicated by diverticulitis * follow culture data * follow trend of WBC * on antibiotics * Infectious Disease following (3) Acute hypoxic respiratory failure: Code(s): J96.01 - Acute respiratory failure with hypoxia Status: Acute Assessment and Plan: * improvement noted * multifactorial etiology: * bilateral pleural effusions * atelectasis * fluid overload * atrial flutter with rapid ventricular response * pancolitis * possible pneumonia (?) * s/p thoracentesis (on 11/08) * recent CXR noted * IV lasix today (along with oral lasix) * consider repeat thoracentesis?. (4) Hyponatremia: Code(s): E87.1 - Hypo-osmolality and hyponatremia Status: Acute Assessment and Plan: * possible chronic component -- sodium seems to run 129 - 136mmol/L since 2021 * presumably worsen by: * DONOVAN/ARF * prerenal factors * pleural effusions * possible pneumonia * urinary retention * mild improvement s/p intial IVF resuscitation * no improvement with repeat trial of IVFs * evaluation to date: * repeat urine electrolytes (11/17) non-prerenal * noted abnormal SPEP and UPEP -- checking immunofixation * TSH/thyroid studies noted * cortisol okay * getting lasix to treat her pleural effusions and edema, and salt tablets to keep her sodium from dropping. * follow trend of sodium levels (5) Metabolic acidosis: Code(s): E87.20 - Acidosis, unspecified Status: Acute Assessment and Plan: * resolved * follow CO2 levels (6) Atrial flutter: Code(s): I48.92 - Unspecified atrial flutter Status: Acute Assessment and Plan: * as noted by events early on 11/05 * rate controlled * Cardiology recommendations noted * on metoprolol * was on IV amiodarone (temporary measure) * Echo noted (on 11/07) * left ventricular systolic function is hyperdynamic, estimated at > 70% * left ventricular diastolic function is grade I diastolic dysfunction * no aortic valve stenosis * mild tricuspid valve regurgitation * on anticoagulation (7) Elevated troponin: Code(s): R79.89 - Other specified abnormal findings of blood chemistry Status: Acute Assessment and Plan: * due to DONOVAN versus atrial fluttter with RVR * trend noted * Cardiology comments noted (8) Hypertension: Code(s): I10 - Essential (primary) hypertension Status: Chronic Assessment and Plan: * running on the high side * just started low-dose lisinopril * follow trend of hemodynamics Not much else to add -- will continue to follow intermittently. L Subjective Date/time seen: 11/28/24 11:44 Interval history: Follow-up for acute kidney injury/acute renal failure and hyponatremia. Renal function/creatinine as well as sodium remains relatively stable; breathing/respiratory status appears to be slowly improving; no other acute issues/events overnight or earlier this morning. Exam 2 Narrative: General: elderly but WD/WN female in NAD Heart: RRR, normal S1 and S2; no rub Lungs: coarse and decreased at bases Abdomen: soft, nontender, positive bowel sounds Extremities: no cyanosis or clubbing; trace - 1+ edema Skin: warm and dry Objective Data Vital Signs Vital Signs: Vital Signs Temp Pulse Resp BP Pulse Ox O2 Del Method O2 Flow Rate 11/28/24 12:00 97.9 F 64 20 169/49 H 95 11/28/24 09:04 76 18 11/28/24 08:55 75 16 11/28/24 08:17 74 11/28/24 08:15 94 Nasal Cannula 2 11/28/24 08:00 75 11/28/24 05:19 97.6 F 69 18 166/48 H 94 11/28/24 04:00 76 11/28/24 00:00 61 11/27/24 21:17 81 16 11/27/24 21:11 80 16 11/27/24 20:00 65 11/27/24 20:00 81 16 93 Nasal Cannula 2 11/27/24 19:49 98.8 F 68 18 188/58 H 93 Intake/Output Intake/Output: Intake & Output 11/25/24 11/26/24 11/27/24 11/28/24 23:59 23:59 23:59 23:59 Intake Total 5241 121 4300 990 Output Total 1 800 Balance 7849 488 8525 190 Meds/Results Medications: Active Medications Generic Name Dose Route Start Last Admin Trade Name Freq PRN Reason Stop Dose Admin Acetaminophen 650 mg 11/06/24 12:18 11/27/24 08:39 Acetaminophen 325 Mg Tablet PO 650 mg Q4H PRN Administration Headache Albuterol/Ipratropium 3 ml 11/26/24 20:00 11/28/24 17:02 Ipratropium 0.5 Mg/Albuterol Sulfate 2.5 Mg (Base) Ampul.Neb 3 Ml INHALATION Not Given Q6HRT [facility] Alteplase, Recombinant 4 mg 11/26/24 07:05 11/26/24 10:04 Alteplase 2 Mg Vial (Cathflo) IV PUSH 4 mg ONCE PRN Administration Line Occlusion Apixaban 2.5 mg 11/15/24 21:00 11/20/24 10:28 Apixaban 2.5 Mg Tablet PO 2.5 mg On Hold: 11/20/24 16:42 Q12HR KEVIN Administration Calcium Carbonate 500 mg 11/26/24 17:00 11/28/24 16:34 Calcium/Vitamin D 500 Mg/5 Mcg (200 I.U.) Tablet PO 500 mg BIDWM KEVIN Administration Cyclosporine 1 drop 11/03/24 21:00 11/28/24 08:18 Cyclosporine 0.4 Ml Ophth Solution EACH EYE 1 drop Q12HR KEVIN Administration Furosemide 20 mg 11/24/24 09:30 11/28/24 16:32 Furosemide 20 Mg Tablet PO Not Given BID KEVIN Lisinopril 10 mg 11/26/24 09:00 11/28/24 08:17 Lisinopril 10 Mg Tablet PO 10 mg DAILY KEVIN Administration Magnesium Oxide 400 mg 11/24/24 09:00 11/28/24 08:18 Magnesium Oxide 400 Mg Tablet PO 400 mg QAM KEVIN Administration Metoprolol Tartrate 50 mg 11/08/24 09:00 11/28/24 16:33 Metoprolol Tartrate 50 Mg Tab PO 50 mg BID KEVIN Administration Sodium Chloride 10 ml 11/06/24 22:00 11/28/24 12:15 Central Line Flush IV PUSH 10 ml Q8HR KEVIN Administration Sodium Chloride 10 ml 11/06/24 14:29 Central Line Flush IV PUSH PRN PRN with TPN bag changes Sodium Chloride 20 ml 11/06/24 14:29 11/19/24 05:57 Central Line Flush IV PUSH 20 ml PRN PRN Administration after blood draws Sodium Chloride 1 spray 11/15/24 16:13 11/15/24 17:13 Saline 0.65% Rodrigo Soln 44 Ml Btl NASAL 1 spray Q6HR PRN Administration Congestion Sodium Chloride 1 gm 11/17/24 09:00 11/28/24 16:34 Sodium Chloride 1 Gm Tablet PO 1 gm BID KEVIN Administration Trazodone HCl 50 mg 11/03/24 21:00 11/27/24 21:54 Trazodone Hcl 50 Mg Tablet PO 50 mg QHS KEVIN Administration Vancomycin HCl 125 mg 11/28/24 22:00 Vancomycin Hcl 125 Mg Oral Capsule PO 12/05/24 14:01 Q8HR KEVIN Vancomycin HCl 125 mg 12/06/24 09:00 Vancomycin Hcl 250 Mg Oral Capsule PO 12/12/24 21:01 Q12HR KEVIN Vancomycin HCl 125 mg 12/13/24 09:00 Vancomycin Hcl 125 Mg Oral Capsule PO 12/19/24 09:01 DAILY KEVIN Vancomycin HCl 125 mg 12/20/24 09:00 Vancomycin Hcl 125 Mg Oral Capsule PO 01/01/25 09:01 Q48H [facility] Radiology Results: ITS Impressions Abdomen/Pelvis CT 11/04/24 12:36 IMPRESSION: 1. No evidence of bowel perforation. 2. Persistent severe pancolitis. 3. New small scattered ascites. 4. New small pleural effusions and significant bibasilar atelectasis. Renal Ultrasound 11/04/24 19:07 Impression: Simple appearing left renal cyst. No significant medical renal disease or obstruction Abdomen X-Ray 11/05/24 16:02 Impression: 1. Findings concerning for small bowel obstruction. CT is suggested Chest/Abdomen/Pelvis CT 11/05/24 17:04 IMPRESSION: 1. Diffuse colitis detailed above, correlate for underlying pseudomembranous colitis. No perforation or abscess. Follow-up recommended to assess. 2. CHF with superimposed probable bronchopneumonia. 3. Incidental findings above. Contrast-enhanced MRI recommended Head CT 11/06/24 12:46 Impression: 1.No acute intracranial abnormality. Venous Doppler Study 11/19/24 18:32 Impression: Negative for DVT. Chest CT 11/20/24 16:02 IMPRESSION: 1. Increase in size of moderate sized bilateral posterior layering pleural effusions with secondary dependent atelectasis including complete collapse of the bilateral lower lobes. 2. Moderate amount of ascites in the visualized upper abdomen. 3. Mildly enlarged prevascular lymph node and the anterior mediastinum which is most likely reactive. Thoracentesis Ultrasound 11/21/24 15:20 IMPRESSION: 1. Successful ultrasound-guided thoracentesis yielding 500 mL of yellowish fluid. Chest X-Ray 11/26/24 14:25 Impression: CHF. Superimposed pneumonia is suspected Labs Labs: Laboratory Tests 11/28/24 05:25 11/28/24 05:25 Calcium 7.6 L Magnesium 1.7 Total Bilirubin 0.3 AST 190 H ALT 114 H Alkaline Phosphatase 70 Total Protein 5.0 L Albumin 2.5 L
--- NOTE | 2024-11-28 11:56 | P.PNINF_ITS ---
Progress Note: A&P Assessment and Plan (1) Clostridium difficile colitis: Code(s): A04.72 - Enterocolitis due to Clostridium difficile, not specified as recurrent Status: Acute Assessment and Plan: -Severe C.difficile colitis. Trial high dose oral vanc/flagyl Transtion to dificid 11/24--start po vanco taper . (2) Leukocytosis: Code(s): D72.829 - Elevated white blood cell count, unspecified Status: Acute Assessment and Plan: -Reactive from C.difficile infection -now resolved. (3) Diverticulitis large intestine: Code(s): K57.32 - Diverticulitis of large intestine without perforation or abscess without bleeding Status: Acute Assessment and Plan: -Diagnosed one week prior to admission -S/P Augmentin x 5 days prior to admission -Discontinued Zosyn on 11/10/24 as patient has completed 8 day course for diverticulitis (4) Colitis: Code(s): K52.9 - Noninfective gastroenteritis and colitis, unspecified Status: Acute Assessment and Plan: -Pancolitis noted on CT -Due to C.difficile colitis (5) Acute kidney injury: Code(s): N17.9 - Acute kidney failure, unspecified Status: Acute Assessment and Plan: -Management as per Nephrology service -Plans for short-term HD (6) Pleural effusion: Code(s): J90 - Pleural effusion, not elsewhere classified Status: Acute Assessment and Plan: -S/P Left thoracentesis 11/08/24 -Pleural fluid studies not consistent with empyema -Pleural fluid cultures negative for growth -Current CT scan shows persistence of bilateral posterior layering pleural effusions with complete collapse of bilateral lower lobes. -Management as per Pulmonary service Plan --change abx to po vanco taper over several weeks-->orders in--for discharge Trial to limit dairy with frequent stools but overall more formed. Follow abd exam s/p 2 trials of IV flagyl. No indication for additional We can consider fecal transplant options in the outpatient setting d/w pharmacy staff Patient was seen via video telehealth consultation with the assistance of staff. Chart, data, and patient independently reviewed. Patient was located at [facility] while I was located in my [place] office. Received verbal consent from patient. Subjective Date/time seen: 11/28/24 11:56 Interval history: no fever no leukocytosis no abd pain decreased diarrhea Objective Data Vital Signs Vital Signs: Vital Signs - 24 hr 11/27/24 12:00 11/27/24 13:50 11/27/24 14:00 Temperature 97.6 F Pulse Rate 63 82 64 Respiratory Rate 20 26 H Blood Pressure 159/50 H Pulse Oximetry 96 Oxygen Delivery Oxygen Flow Rate Fraction of Inspired Oxygen 11/27/24 16:00 11/27/24 17:02 11/27/24 19:49 Temperature 98.8 F Pulse Rate 59 L 64 68 Respiratory Rate 18 Blood Pressure 188/58 H Pulse Oximetry 93 Oxygen Delivery Oxygen Flow Rate Fraction of Inspired Oxygen 11/27/24 20:00 11/27/24 20:00 11/27/24 21:11 Temperature Pulse Rate 81 65 80 Respiratory Rate 16 16 Blood Pressure Pulse Oximetry 93 Oxygen Delivery Nasal Cannula Oxygen Flow Rate 2 Fraction of Inspired Oxygen 21 11/27/24 21:17 11/28/24 00:00 11/28/24 04:00 Temperature Pulse Rate 81 61 76 Respiratory Rate 16 Blood Pressure Pulse Oximetry Oxygen Delivery Oxygen Flow Rate Fraction of Inspired Oxygen 11/28/24 05:19 11/28/24 08:00 11/28/24 08:15 Temperature 97.6 F Pulse Rate 69 75 Respiratory Rate 18 Blood Pressure 166/48 H Pulse Oximetry 94 94 Oxygen Delivery Nasal Cannula Oxygen Flow Rate 2 Fraction of Inspired Oxygen 11/28/24 08:17 11/28/24 08:55 11/28/24 09:04 Temperature Pulse Rate 74 75 76 Respiratory Rate 16 18 Blood Pressure Pulse Oximetry Oxygen Delivery Oxygen Flow Rate Fraction of Inspired Oxygen Intake/Output Intake/Output: Intake & Output 11/25/24 11/26/24 11/27/24 11/28/24 23:59 23:59 23:59 23:59 Intake Total 4273 131 3485 510 Output Total 1 400 Balance 0848 102 0369 110 Meds/Results Medications: Active Medications Generic Name Dose Route Start Last Admin Trade Name Freq PRN Reason Stop Dose Admin Acetaminophen 650 mg 11/06/24 12:18 11/27/24 08:39 Acetaminophen 325 Mg Tablet PO 650 mg Q4H PRN Administration Headache Albuterol/Ipratropium 3 ml 11/26/24 20:00 11/28/24 08:55 Ipratropium 0.5 Mg/Albuterol Sulfate 2.5 Mg (Base) Ampul.Neb 3 Ml INHALATION 3 ml Q6HRT KEVIN Administration Alteplase, Recombinant 4 mg 11/26/24 07:05 11/26/24 10:04 Alteplase 2 Mg Vial (Cathflo) IV PUSH 4 mg ONCE PRN Administration Line Occlusion Apixaban 2.5 mg 11/15/24 21:00 11/20/24 10:28 Apixaban 2.5 Mg Tablet PO 2.5 mg On Hold: 11/20/24 16:42 Q12HR KEVIN Administration Calcium Carbonate 500 mg 11/26/24 17:00 11/28/24 08:17 Calcium/Vitamin D 500 Mg/5 Mcg (200 I.U.) Tablet PO 500 mg BIDWM KEVIN Administration Cyclosporine 1 drop 11/03/24 21:00 11/28/24 08:18 Cyclosporine 0.4 Ml Ophth Solution EACH EYE 1 drop Q12HR KEVIN Administration Fidaxomicin 200 mg 11/23/24 13:30 11/28/24 08:18 Fidaxomicin 200 Mg Tablet PO 12/02/24 21:01 200 mg Q12HR KEVIN Administration Furosemide 20 mg 11/24/24 09:30 11/28/24 08:17 Furosemide 20 Mg Tablet PO 20 mg BID KEVIN Administration Lisinopril 10 mg 11/26/24 09:00 11/28/24 08:17 Lisinopril 10 Mg Tablet PO 10 mg DAILY KEVIN Administration Magnesium Oxide 400 mg 11/24/24 09:00 11/28/24 08:18 Magnesium Oxide 400 Mg Tablet PO 400 mg QAM KEVIN Administration Metoprolol Tartrate 50 mg 11/08/24 09:00 11/28/24 08:17 Metoprolol Tartrate 50 Mg Tab PO 50 mg BID KEVIN Administration Sodium Chloride 10 ml 11/06/24 22:00 11/28/24 05:25 Central Line Flush IV PUSH 10 ml Q8HR KEVIN Administration Sodium Chloride 10 ml 11/06/24 14:29 Central Line Flush IV PUSH PRN PRN with TPN bag changes Sodium Chloride 20 ml 11/06/24 14:29 11/19/24 05:57 Central Line Flush IV PUSH 20 ml PRN PRN Administration after blood draws Sodium Chloride 1 spray 11/15/24 16:13 11/15/24 17:13 Saline 0.65% Rodrigo Soln 44 Ml Btl NASAL 1 spray Q6HR PRN Administration Congestion Sodium Chloride 1 gm 11/17/24 09:00 11/28/24 08:18 Sodium Chloride 1 Gm Tablet PO 1 gm BID KEVIN Administration Trazodone HCl 50 mg 11/03/24 21:00 11/27/24 21:54 Trazodone Hcl 50 Mg Tablet PO 50 mg QHS KEVIN Administration Radiology Results: ITS Impressions Abdomen/Pelvis CT 11/04/24 12:36 IMPRESSION: 1. No evidence of bowel perforation. 2. Persistent severe pancolitis. 3. New small scattered ascites. 4. New small pleural effusions and significant bibasilar atelectasis. Renal Ultrasound 11/04/24 19:07 Impression: Simple appearing left renal cyst. No significant medical renal disease or obstruction Abdomen X-Ray 11/05/24 16:02 Impression: 1. Findings concerning for small bowel obstruction. CT is suggested Chest/Abdomen/Pelvis CT 11/05/24 17:04 IMPRESSION: 1. Diffuse colitis detailed above, correlate for underlying pseudomembranous colitis. No perforation or abscess. Follow-up recommended to assess. 2. CHF with superimposed probable bronchopneumonia. 3. Incidental findings above. Contrast-enhanced MRI recommended Head CT 11/06/24 12:46 Impression: 1.No acute intracranial abnormality. Venous Doppler Study 11/19/24 18:32 Impression: Negative for DVT. Chest CT 11/20/24 16:02 IMPRESSION: 1. Increase in size of moderate sized bilateral posterior layering pleural effusions with secondary dependent atelectasis including complete collapse of the bilateral lower lobes. 2. Moderate amount of ascites in the visualized upper abdomen. 3. Mildly enlarged prevascular lymph node and the anterior mediastinum which is most likely reactive. Thoracentesis Ultrasound 11/21/24 15:20 IMPRESSION: 1. Successful ultrasound-guided thoracentesis yielding 500 mL of yellowish fluid. Chest X-Ray 11/26/24 14:25 Impression: CHF. Superimposed pneumonia is suspected Labs Labs: Laboratory Results - last 24 hr 11/28/24 05:25 WBC 5.3 RBC 2.87 L Hgb 8.8 L Hct 26.9 L MCV 93.7 MCH 30.7 MCHC 32.7 RDW 14.9 H Plt Count 195 MPV 9.4 Immature Gran % (Auto) 1.0 H Neut % (Auto) 70.2 Lymph % (Auto) 16.6 L [place] % (Auto) 9.3 H Eos % (Auto) 1.9 Baso % (Auto) 1.0 Lymph # (Auto) 0.87 L [place] # (Auto) 0.5 Eos # (Auto) 0.1 Baso # (Auto) 0.1 Abs Immat Gran (auto) 0.05 H Absolute Neuts (auto) 3.7 Absolute Nucleated RBC 0.000 Nucleated RBC % 0.0 Sodium 128 L Potassium 3.5 Chloride 96 L Carbon Dioxide 29 Anion Gap 3 L BUN 18 H Creatinine 0.86 Estim Creat Clear Calc 49 Estimated GFR > 60 Glucose 117 H Calcium 7.6 L Magnesium 1.7 Total Bilirubin 0.3 AST 190 H ALT 114 H Alkaline Phosphatase 70 Total Protein 5.0 L Albumin 2.5 L
[2024-11-28] MEDS: POTASSIUM CHLORIDE 20 MEQ PACKET (FOR LIQUID) 40 MEQ PO (12:15)
[2024-11-28] MEDS: FUROSEMIDE INJ 40 MG/4 ML VIAL IV PUSH (13:58)
--- NOTE | 2024-11-28 17:32 | P.PNIM_ITS ---
Progress Note: A&P Assessment and Plan (1) Clostridium difficile colitis: Code(s): A04.72 - Enterocolitis due to Clostridium difficile, not specified as recurrent Status: Acute Assessment and Plan: - Metronidazole complete from 11/08/2024 to 11/15/2024 - per ID: maintain planned pulse/ taper with oral vancomycin. Currently at 250 mg Q 6 hours changed at 11/16/2024. would plan q.8 hour dosing of oral vancomycin starting 11/30 and then decrease to twice daily dosing on 12/07. daily doses starting on 12/14 and then every other day dosing x2 weeks starting on 12/21/2024. - monitor stool output while tapering vanc - Zosyn discontinued - leukocytosis and diarrhea improving - continue Banatrol -Appreciate ID recommendations (2) Acute hypoxic respiratory failure: Code(s): J96.01 - Acute respiratory failure with hypoxia Status: Acute Assessment and Plan: -Pulmonology consulted. Less likely pneumonia, pneumonia specific antibiotics discontinued. Status post thoracentesis on 11/08/2024 showing exudative effusion, not infectious, macrophage predominant, likely related to colitis/fluid overload related to acute kidney injury. - echo on 10/08 demonstrating normal left ventricular function. - CXR 11/19 with persistent left lower lobe atelectasis with associated effusion - CT chest 11/20 with increase in size of moderate-sized bilateral posterior layering pleural effusions with secondary dependent atelectasis including complete collapse of the bilateral lobes - encouraged incentive spirometry, pulmonary hygiene - intermittently requiring oxygen and tachypneic - repeat thoracentesis ordered (3) Pleural effusion: Code(s): J90 - Pleural effusion, not elsewhere classified Status: Acute Assessment and Plan: - management as above (4) Hyponatremia: Code(s): E87.1 - Hypo-osmolality and hyponatremia Status: Acute Assessment and Plan: - nephrology on board. Multiple interventions including dialysis, IV fluids, diuretics, salt tabs, 3% hypertonic with minimal improvement. Na 124 which is minimally improved, but patient's intake is improving so hoping sodium will continue to rise. - Nephrology following (5) Anemia: Code(s): D64.9 - Anemia, unspecified Status: Acute Assessment and Plan: - Hgb 11.7 on admission, trended down to 9.0 11/21. Denied signs of bleeding, - likely multifactorial in setting of renal failure, IV fluids, critical illness - check iron studies (6) Adjustment disorder with depressed mood: Code(s): F43.21 - Adjustment disorder with depressed mood Status: Acute Assessment and Plan: - intermittently refused therapy. She is depressed because she has never been this ill before, relatively healthy previous to this admission. She denies adamantly any suicidal ideation, she also refuses to see Psychiatry or to start any pharmacological therapy. - affect seems to be improving. She worked with therapy 11/19. Encouraged to continue participation. Reassurance provided. - continue trazodone qHS (7) Hypertension: Code(s): I10 - Essential (primary) hypertension Status: Chronic Assessment and Plan: -Lisinopril and spironolactone on hold due to DONOVAN -Amlodipine initially on hold to allow titration of beta-christine. Will resume due to high BP trend. - monitor BP (8) Atrial flutter: Code(s): I48.92 - Unspecified atrial flutter Status: Acute Assessment and Plan: -New diagnosis, now converted to sinus rhythm. -Continue metoprolol 50 mg p.o. b.i.d.. -Digoxin stopped due to renal failure - continue Eliquis -Keep potassium greater than 4 magnesium greater than 2, keep renal failure in consideration when replacing electrolytes (9) Acute kidney injury: Code(s): N17.9 - Acute kidney failure, unspecified Status: Acute Assessment and Plan: -Infection vs Contrast related injury vs prerenal. Creatinine normal 2 days prior to admission Nephrology is following, right IJ Cecil dialysis catheter placed on 11/10/2024. -Dialysis started on 11/10/2024. No dialysis for some time now, Nephrology continues to manage. -Renal ultrasound without obstruction, urine electrolytes pre renal, urine eosinophils negative, CPK normal, mild proteinuria -Holding lisinopril and spironolactone -Holland catheter in place -Follow renal function labs and urine output -Disposition pending. When ready to pull out the IJ, hold Eliquis for at least 24 hours. 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 patient symptoms were improving and stools were forming however today patient stats she had several loose BM last night today feels tirade and weak, her Mag this morning was low, and supplemented, patient had low potassium and was given oral potassium which cause to have more diarrhea, will follow instruction from ID and further recommendation to follow. 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 her potassium and calcium are low being supplement, will avoid oral potassium, will monitor. patient family is present and gave updates Code status: full code DVT prophylaxis: Priscila Dispo: possibly RO when medically stable. Care coordination following. 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 patient symptoms were improving and stools were forming however today patient stats she had several loose BM last night today feels tirade and weak, her Mag this morning was low, and supplemented, patient had low potassium and was given oral potassium which cause to have more diarrhea, will follow instruction from ID and further recommendation to follow. 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 her potassium and calcium are low being supplement, will avoid oral potassium, will monitor. patient family is present and gave updates Review of Systems Review of Systems: All systems reviewed & are unremarkable except as noted in HPI and below (Subjective) Exam Narrative: Patient is comfortable, NAD HEENT: eyes are clear and none icteric LUNGS:CTA HEART: RR S1S2 ABD: BS+, Soft and nontender Lower extremities: no edema SKIN: nonjaundiced Neuro: grossly intact. Objective Data Vital Signs Vital Signs: Vital Signs - 24 hr 11/27/24 19:49 11/27/24 20:00 11/27/24 20:00 Temperature 37.1 C Pulse Rate 68 81 65 Respiratory Rate 18 16 Blood Pressure 188/58 H Pulse Oximetry 93 93 Oxygen Delivery Nasal Cannula Oxygen Flow Rate 2 Fraction of Inspired Oxygen 21 11/27/24 21:11 11/27/24 21:17 11/28/24 00:00 Temperature Pulse Rate 80 81 61 Respiratory Rate 16 16 Blood Pressure Pulse Oximetry Oxygen Delivery Oxygen Flow Rate Fraction of Inspired Oxygen 11/28/24 04:00 11/28/24 05:19 11/28/24 08:00 Temperature 36.4 C Pulse Rate 76 69 75 Respiratory Rate 18 Blood Pressure 166/48 H Pulse Oximetry 94 Oxygen Delivery Oxygen Flow Rate Fraction of Inspired Oxygen 11/28/24 08:15 11/28/24 08:17 11/28/24 08:55 Temperature Pulse Rate 74 75 Respiratory Rate 16 Blood Pressure Pulse Oximetry 94 Oxygen Delivery Nasal Cannula Oxygen Flow Rate 2 Fraction of Inspired Oxygen 11/28/24 09:04 11/28/24 12:00 11/28/24 14:00 Temperature 36.6 C Pulse Rate 76 74 64 Respiratory Rate 18 20 Blood Pressure 169/49 H Pulse Oximetry 95 Oxygen Delivery Oxygen Flow Rate Fraction of Inspired Oxygen 11/28/24 16:00 11/28/24 16:33 Temperature Pulse Rate 70 70 Respiratory Rate Blood Pressure Pulse Oximetry Oxygen Delivery Oxygen Flow Rate Fraction of Inspired Oxygen Intake/Output Intake/Output: Intake & Output 11/25/24 11/26/24 11/27/24 11/28/24 23:59 23:59 23:59 23:59 Intake Total 9832 239 6904 750 Output Total 1 800 Balance 3060 868 9278 -50 Meds/Results Medications: Active Medications Generic Name Dose Route Start Last Admin Trade Name Freq PRN Reason Stop Dose Admin Acetaminophen 650 mg 11/06/24 12:18 11/27/24 08:39 Acetaminophen 325 Mg Tablet PO 650 mg Q4H PRN Administration Headache Albuterol/Ipratropium 3 ml 11/26/24 20:00 11/28/24 17:02 Ipratropium 0.5 Mg/Albuterol Sulfate 2.5 Mg (Base) Ampul.Neb 3 Ml INHALATION Not Given Q6HRT KEVIN Alteplase, Recombinant 4 mg 11/26/24 07:05 11/26/24 10:04 Alteplase 2 Mg Vial (Cathflo) IV PUSH 4 mg ONCE PRN Administration Line Occlusion Apixaban 2.5 mg 11/15/24 21:00 11/20/24 10:28 Apixaban 2.5 Mg Tablet PO 2.5 mg On Hold: 11/20/24 16:42 Q12HR KEVIN Administration Calcium Carbonate 500 mg 11/26/24 17:00 11/28/24 16:34 Calcium/Vitamin D 500 Mg/5 Mcg (200 I.U.) Tablet PO 500 mg BIDWM KEVIN Administration Cyclosporine 1 drop 11/03/24 21:00 11/28/24 08:18 Cyclosporine 0.4 Ml Ophth Solution EACH EYE 1 drop Q12HR KEVIN Administration Furosemide 20 mg 11/24/24 09:30 11/28/24 16:32 Furosemide 20 Mg Tablet PO Not Given BID KEVIN Lisinopril 10 mg 11/26/24 09:00 11/28/24 08:17 Lisinopril 10 Mg Tablet PO 10 mg DAILY KEVIN Administration Magnesium Oxide 400 mg 11/24/24 09:00 11/28/24 08:18 Magnesium Oxide 400 Mg Tablet PO 400 mg QAM KEVIN Administration Metoprolol Tartrate 50 mg 11/08/24 09:00 11/28/24 16:33 Metoprolol Tartrate 50 Mg Tab PO 50 mg BID KEVIN Administration Sodium Chloride 10 ml 11/06/24 22:00 11/28/24 12:15 Central Line Flush IV PUSH 10 ml Q8HR KEVIN Administration Sodium Chloride 10 ml 11/06/24 14:29 Central Line Flush IV PUSH PRN PRN with TPN bag changes Sodium Chloride 20 ml 11/06/24 14:29 11/19/24 05:57 Central Line Flush IV PUSH 20 ml PRN PRN Administration after blood draws Sodium Chloride 1 spray 11/15/24 16:13 11/15/24 17:13 Saline 0.65% Rodrigo Soln 44 Ml Btl NASAL 1 spray Q6HR PRN Administration Congestion Sodium Chloride 1 gm 11/17/24 09:00 11/28/24 16:34 Sodium Chloride 1 Gm Tablet PO 1 gm BID KEVIN Administration Trazodone HCl 50 mg 11/03/24 21:00 11/27/24 21:54 Trazodone Hcl 50 Mg Tablet PO 50 mg QHS KEVIN Administration Vancomycin HCl 125 mg 11/28/24 22:00 Vancomycin Hcl 125 Mg Oral Capsule PO 12/05/24 14:01 Q8HR KEVIN Vancomycin HCl 125 mg 12/06/24 09:00 Vancomycin Hcl 250 Mg Oral Capsule PO 12/12/24 21:01 Q12HR KEVIN Vancomycin HCl 125 mg 12/13/24 09:00 Vancomycin Hcl 125 Mg Oral Capsule PO 12/19/24 09:01 DAILY [facility] Vancomycin HCl 125 mg 12/20/24 09:00 Vancomycin Hcl 125 Mg Oral Capsule PO 01/01/25 09:01 Q48H [facility] Radiology Results: ITS Impressions Abdomen/Pelvis CT 11/04/24 12:36 IMPRESSION: 1. No evidence of bowel perforation. 2. Persistent severe pancolitis. 3. New small scattered ascites. 4. New small pleural effusions and significant bibasilar atelectasis. Renal Ultrasound 11/04/24 19:07 Impression: Simple appearing left renal cyst. No significant medical renal disease or obstruction Abdomen X-Ray 11/05/24 16:02 Impression: 1. Findings concerning for small bowel obstruction. CT is suggested Chest/Abdomen/Pelvis CT 11/05/24 17:04 IMPRESSION: 1. Diffuse colitis detailed above, correlate for underlying pseudomembranous colitis. No perforation or abscess. Follow-up recommended to assess. 2. CHF with superimposed probable bronchopneumonia. 3. Incidental findings above. Contrast-enhanced MRI recommended Head CT 11/06/24 12:46 Impression: 1.No acute intracranial abnormality. Venous Doppler Study 11/19/24 18:32 Impression: Negative for DVT. Chest CT 11/20/24 16:02 IMPRESSION: 1. Increase in size of moderate sized bilateral posterior layering pleural effusions with secondary dependent atelectasis including complete collapse of the bilateral lower lobes. 2. Moderate amount of ascites in the visualized upper abdomen. 3. Mildly enlarged prevascular lymph node and the anterior mediastinum which is most likely reactive. Thoracentesis Ultrasound 11/21/24 15:20 IMPRESSION: 1. Successful ultrasound-guided thoracentesis yielding 500 mL of yellowish fluid. Chest X-Ray 11/26/24 14:25 Impression: CHF. Superimposed pneumonia is suspected Labs Labs: Laboratory Results - last 24 hr 11/28/24 05:25 WBC 5.3 RBC 2.87 L Hgb 8.8 L Hct 26.9 L MCV 93.7 MCH 30.7 MCHC 32.7 RDW 14.9 H Plt Count 195 MPV 9.4 Immature Gran % (Auto) 1.0 H Neut % (Auto) 70.2 Lymph % (Auto) 16.6 L [place] % (Auto) 9.3 H Eos % (Auto) 1.9 Baso % (Auto) 1.0 Lymph # (Auto) 0.87 L [place] # (Auto) 0.5 Eos # (Auto) 0.1 Baso # (Auto) 0.1 Abs Immat Gran (auto) 0.05 H Absolute Neuts (auto) 3.7 Absolute Nucleated RBC 0.000 Nucleated RBC % 0.0 Sodium 128 L Potassium 3.5 Chloride 96 L Carbon Dioxide 29 Anion Gap 3 L BUN 18 H Creatinine 0.86 Estim Creat Clear Calc 49 Estimated GFR > 60 Glucose 117 H Calcium 7.6 L Magnesium 1.7 Total Bilirubin 0.3 AST 190 H ALT 114 H Alkaline Phosphatase 70 Total Protein 5.0 L Albumin 2.5 L Quality VTE Prophylaxis VTE prophylaxis: mechanical ordered and pharmacologic ordered
[2024-11-28] MEDS: VANCOMYCIN HCL 125 MG ORAL CAPSULE PO (21:53)
[2024-11-29] VITALS (16 sets, daily range): BP systolic 98–168; BP diastolic 48–60; PULSE 64–98; RESP 15–24; TEMP 36.4–37.3; O2SAT 92–100
[2024-11-29] MEDS: IPRATROPIUM 0.5 MG/ALBUTEROL SULFATE 2.5 MG (BASE) AMPUL.NEB 3 ML INHALATION ×3 (02:43→14:41)
[2024-11-29] MEDS: CENTRAL LINE FLUSH 10 ML IV PUSH ×2 (05:48→13:22)
[2024-11-29] MEDS: VANCOMYCIN HCL 125 MG ORAL CAPSULE PO ×2 (05:48→13:21)
[2024-11-29 06:37] LABS: Hematocrit 26.2 % (37.0-47.0); Hemoglobin 8.3 g/dL (12.0-15.0); Immature Granulocyte Percent A 1.1 % (0-0.5); Lymphocytes Absolute Auto 1.07 K/mm3 (0.9-3.2); Mean Corpuscular HGB Conc 31.7 g/dl (32-36); Mean Corpuscular Hemoglobin 29.9 pg (26-34); Mean Corpuscular Volume 94.2 fl (80-100); Nucleated Red Blood Cells Absolute Auto 0.000 K/mm3 (0.0-0.012); Nucleated Red Blood Cells Perc 0.0 % (0.0-0.2); Platelet Count Result 194 k/mm3 (150-375); Red Blood Count 2.78 M/mm3 (4.2-5.4); White Blood Count 5.7 K/mm3 (4.5-10.0)
[2024-11-29 06:59] LABS: Alanine Aminotransferase 325 U/L (6-35); Albumin Level 2.4 g/dL (3.5-5.1); Alkaline Phosphatase 77 U/L (38-126); Anion Gap 3 mmol/L (4-12); Aspartate Amino Transferase 565 U/L (14-36); Bilirubin,Total 0.3 mg/dL (0.2-1.3); Blood Urea Nitrogen 17 mg/dL (7-17); Calcium 7.5 mg/dL (8.4-10.2); Carbon Dioxide 30 mmol/L (22-30); Chloride 94 mmol/L (98-107); Estimated CRCL calculation 46 ml/min; Estimated Glomerular Filt Rate > 60; Glucose 116 mg/dL (65-110); Magnesium 1.4 mg/dL (1.6-2.3); Potassium 3.5 mmol/L (3.4-5.0); Sodium 127 mmol/L (137-145); Total Protein 4.8 g/dL (6.3-8.2)
[2024-11-29] MEDS: METOPROLOL TARTRATE 50 MG TAB PO ×2 (08:09→17:02)
[2024-11-29] MEDS: MAGNESIUM OXIDE 400 MG TABLET PO (08:10)
[2024-11-29] MEDS: SODIUM CHLORIDE 1 GM TABLET PO ×2 (08:10→17:02)
[2024-11-29] MEDS: FUROSEMIDE 20 MG TABLET PO ×2 (08:10→17:02)
[2024-11-29] MEDS: CALCIUM/VITAMIN D 500 MG/5 MCG (200 I.U.) TABLET PO ×2 (08:10→17:02)
[2024-11-29] MEDS: cycloSPORINE 0.4 ML OPHTH SOLUTION 1 DROP EACH EYE (08:12)
[2024-11-29] MEDS: MAGNESIUM SULFATE 3GM/D5W100ML 3 GM/100 ML BAG IVPB (11:50)
--- NOTE | 2024-11-29 14:41 | P.PNINF_ITS ---
Progress Note: A&P Assessment and Plan (1) Clostridium difficile colitis: Code(s): A04.72 - Enterocolitis due to Clostridium difficile, not specified as recurrent Status: Acute Assessment and Plan: -Severe C.difficile colitis. Trial high dose oral vanc/flagyl Transtion to dificid 11/24-->start po vanco taper . (2) Leukocytosis: Code(s): D72.829 - Elevated white blood cell count, unspecified Status: Acute Assessment and Plan: -Reactive from C.difficile infection -now resolved. (3) Diverticulitis large intestine: Code(s): K57.32 - Diverticulitis of large intestine without perforation or abscess without bleeding Status: Acute Assessment and Plan: -Diagnosed one week prior to admission -S/P Augmentin x 5 days prior to admission -Discontinued Zosyn on 11/10/24 as patient has completed 8 day course for diverticulitis (4) Colitis: Code(s): K52.9 - Noninfective gastroenteritis and colitis, unspecified Status: Acute Assessment and Plan: -Pancolitis noted on CT -Due to C.difficile colitis -->resolved (5) Acute kidney injury: Code(s): N17.9 - Acute kidney failure, unspecified Status: Acute Assessment and Plan: -Management as per Nephrology service -Plans for short-term HD (6) Pleural effusion: Code(s): J90 - Pleural effusion, not elsewhere classified Status: Acute Assessment and Plan: -S/P Left thoracentesis 11/08/24 -Pleural fluid studies not consistent with empyema -Pleural fluid cultures negative for growth -Current CT scan shows persistence of bilateral posterior layering pleural effusions with complete collapse of bilateral lower lobes. -Management as per Pulmonary service Plan --continue po vanco taper over several weeks-->orders in--for discharge We can consider fecal transplant options in the outpatient setting d/w pharmacy staff will follow peripherally. Please call if new issues/concerns arise Patient was seen via video telehealth consultation with the assistance of staff. Chart, data, and patient independently reviewed. Patient was located at [facility] while I was located in my [place] office. Received verbal consent from patient. Subjective Date/time seen: 11/29/24 14:41 Interval history: low grade temps no leukocytosis had formed stool today no abd pain Exam Narrative: NAD, non-toxic Objective Data Vital Signs Vital Signs: Vital Signs - 24 hr 11/28/24 16:00 11/28/24 16:33 11/28/24 20:00 Temperature Pulse Rate 70 70 75 Respiratory Rate 18 Blood Pressure Pulse Oximetry 92 Oxygen Delivery Nasal Cannula Oxygen Flow Rate 2 11/28/24 20:00 11/28/24 20:17 11/28/24 21:39 Temperature 99.3 F Pulse Rate 74 74 72 Respiratory Rate 18 18 Blood Pressure 168/48 H Pulse Oximetry 94 94 Oxygen Delivery Nasal Cannula Oxygen Flow Rate 2 11/28/24 21:39 11/29/24 00:00 11/29/24 02:43 Temperature Pulse Rate 72 64 80 Respiratory Rate 18 16 Blood Pressure Pulse Oximetry 92 Oxygen Delivery Nasal Cannula Oxygen Flow Rate 2 11/29/24 02:43 11/29/24 04:00 11/29/24 04:59 Temperature 99.1 F Pulse Rate 80 76 75 Respiratory Rate 16 18 Blood Pressure 164/60 H Pulse Oximetry 92 Oxygen Delivery Oxygen Flow Rate 11/29/24 07:46 11/29/24 07:46 11/29/24 07:53 Temperature Pulse Rate 73 75 Respiratory Rate 16 16 Blood Pressure Pulse Oximetry 93 Oxygen Delivery Nasal Cannula Oxygen Flow Rate 2 11/29/24 08:00 11/29/24 08:09 11/29/24 08:10 Temperature Pulse Rate 79 85 Respiratory Rate Blood Pressure Pulse Oximetry 95 Oxygen Delivery Nasal Cannula Oxygen Flow Rate 3 11/29/24 12:00 Temperature Pulse Rate 73 Respiratory Rate Blood Pressure Pulse Oximetry Oxygen Delivery Oxygen Flow Rate Intake/Output Intake/Output: Intake & Output 11/26/24 11/27/24 11/28/24 11/29/24 23:59 23:59 23:59 23:59 Intake Total 775 1460 990 360 Output Total 800 600 Balance 775 1460 190 -240 Meds/Results Medications: Active Medications Generic Name Dose Route Start Last Admin Trade Name Freq PRN Reason Stop Dose Admin Acetaminophen 650 mg 11/06/24 12:18 11/27/24 08:39 Acetaminophen 325 Mg Tablet PO 650 mg Q4H PRN Administration Headache Albuterol/Ipratropium 3 ml 11/26/24 20:00 11/29/24 14:41 Ipratropium 0.5 Mg/Albuterol Sulfate 2.5 Mg (Base) Ampul.Neb 3 Ml INHALATION 3 ml Q6HRT KEVIN Administration Alteplase, Recombinant 4 mg 11/26/24 07:05 11/26/24 10:04 Alteplase 2 Mg Vial (Cathflo) IV PUSH 4 mg ONCE PRN Administration Line Occlusion Apixaban 2.5 mg 11/15/24 21:00 11/20/24 10:28 Apixaban 2.5 Mg Tablet PO 2.5 mg On Hold: 11/20/24 16:42 Q12HR KEVIN Administration Calcium Carbonate 500 mg 11/26/24 17:00 11/29/24 08:10 Calcium/Vitamin D 500 Mg/5 Mcg (200 I.U.) Tablet PO 500 mg BIDWM KEVIN Administration Cyclosporine 1 drop 11/03/24 21:00 11/29/24 08:12 Cyclosporine 0.4 Ml Ophth Solution EACH EYE 1 drop Q12HR KEVIN Administration Furosemide 20 mg 11/24/24 09:30 11/29/24 08:10 Furosemide 20 Mg Tablet PO 20 mg BID KEVIN Administration Lisinopril 10 mg 11/26/24 09:00 11/29/24 08:09 Lisinopril 10 Mg Tablet PO 10 mg DAILY KEVIN Administration Magnesium Oxide 400 mg 11/24/24 09:00 11/29/24 08:10 Magnesium Oxide 400 Mg Tablet PO 400 mg QAM KEVIN Administration Metoprolol Tartrate 50 mg 11/08/24 09:00 11/29/24 08:09 Metoprolol Tartrate 50 Mg Tab PO 50 mg BID KEVIN Administration Sodium Chloride 10 ml 11/06/24 22:00 11/29/24 13:22 Central Line Flush IV PUSH 10 ml Q8HR KEVIN Administration Sodium Chloride 10 ml 11/06/24 14:29 Central Line Flush IV PUSH PRN PRN with TPN bag changes Sodium Chloride 20 ml 11/06/24 14:29 11/19/24 05:57 Central Line Flush IV PUSH 20 ml PRN PRN Administration after blood draws Sodium Chloride 1 spray 11/15/24 16:13 11/15/24 17:13 Saline 0.65% Rodrigo Soln 44 Ml Btl NASAL 1 spray Q6HR PRN Administration Congestion Sodium Chloride 1 gm 11/17/24 09:00 11/29/24 08:10 Sodium Chloride 1 Gm Tablet PO 1 gm BID KEVIN Administration Trazodone HCl 50 mg 11/03/24 21:00 11/28/24 21:53 Trazodone Hcl 50 Mg Tablet PO 50 mg QHS KEVIN Administration Vancomycin HCl 125 mg 11/28/24 22:00 11/29/24 13:21 Vancomycin Hcl 125 Mg Oral Capsule PO 12/05/24 14:01 125 mg Q8HR KEVIN Administration Vancomycin HCl 125 mg 12/06/24 09:00 Vancomycin Hcl 250 Mg Oral Capsule PO 12/12/24 21:01 Q12HR KEVIN Vancomycin HCl 125 mg 12/13/24 09:00 Vancomycin Hcl 125 Mg Oral Capsule PO 12/19/24 09:01 DAILY KEVIN Vancomycin HCl 125 mg 12/20/24 09:00 Vancomycin Hcl 125 Mg Oral Capsule PO 01/01/25 09:01 Q48H [facility] Radiology Results: ITS Impressions Abdomen/Pelvis CT 11/04/24 12:36 IMPRESSION: 1. No evidence of bowel perforation. 2. Persistent severe pancolitis. 3. New small scattered ascites. 4. New small pleural effusions and significant bibasilar atelectasis. Renal Ultrasound 11/04/24 19:07 Impression: Simple appearing left renal cyst. No significant medical renal disease or obstruction Abdomen X-Ray 11/05/24 16:02 Impression: 1. Findings concerning for small bowel obstruction. CT is suggested Chest/Abdomen/Pelvis CT 11/05/24 17:04 IMPRESSION: 1. Diffuse colitis detailed above, correlate for underlying pseudomembranous colitis. No perforation or abscess. Follow-up recommended to assess. 2. CHF with superimposed probable bronchopneumonia. 3. Incidental findings above. Contrast-enhanced MRI recommended Head CT 11/06/24 12:46 Impression: 1.No acute intracranial abnormality. Venous Doppler Study 11/19/24 18:32 Impression: Negative for DVT. Chest CT 11/20/24 16:02 IMPRESSION: 1. Increase in size of moderate sized bilateral posterior layering pleural effusions with secondary dependent atelectasis including complete collapse of the bilateral lower lobes. 2. Moderate amount of ascites in the visualized upper abdomen. 3. Mildly enlarged prevascular lymph node and the anterior mediastinum which is most likely reactive. Thoracentesis Ultrasound 11/21/24 15:20 IMPRESSION: 1. Successful ultrasound-guided thoracentesis yielding 500 mL of yellowish fluid. Chest X-Ray 11/26/24 14:25 Impression: CHF. Superimposed pneumonia is suspected Labs Labs: Laboratory Results - last 24 hr 11/29/24 06:25 WBC 5.7 RBC 2.78 L Hgb 8.3 L Hct 26.2 L MCV 94.2 MCH 29.9 MCHC 31.7 L RDW 14.8 H Plt Count 194 MPV 9.3 Immature Gran % (Auto) 1.1 H Neut % (Auto) 69.4 Lymph % (Auto) 18.9 [place] % (Auto) 8.3 Eos % (Auto) 1.4 Baso % (Auto) 0.9 Lymph # (Auto) 1.07 [place] # (Auto) 0.5 Eos # (Auto) 0.1 Baso # (Auto) 0.1 Abs Immat Gran (auto) 0.06 H Absolute Neuts (auto) 3.9 Absolute Nucleated RBC 0.000 Nucleated RBC % 0.0 Sodium 127 L Potassium 3.5 Chloride 94 L Carbon Dioxide 30 Anion Gap 3 L BUN 17 Creatinine 0.89 Estim Creat Clear Calc 46 Estimated GFR > 60 Glucose 116 H Calcium 7.5 L Magnesium 1.4 L Total Bilirubin 0.3 AST 565 H ALT 325 H Alkaline Phosphatase 77 Total Protein 4.8 L Albumin 2.4 L
--- NOTE | 2024-11-29 16:38 | P.DS_ITS ---
DS: Admitting Diagnosis Discharge Date 11/29/24 Admitting Diagnosis Abdominal pain DS: Discharge Diagnosis Discharge Diagnosis (1) Clostridium difficile colitis: Code(s): A04.72 - Enterocolitis due to Clostridium difficile, not specified as recurrent Status: Acute Assessment and Plan: - Metronidazole complete from 11/08/2024 to 11/15/2024 - per ID: maintain planned pulse/ taper with oral vancomycin. Currently at 250 mg Q 6 hours changed at 11/16/2024. would plan q.8 hour dosing of oral vancomycin starting 11/30 and then decrease to twice daily dosing on 12/07. daily doses starting on 12/14 and then every other day dosing x2 weeks starting on 12/21/2024. - monitor stool output while tapering vanc - Zosyn discontinued - leukocytosis and diarrhea improving - continue Banatrol -Appreciate ID recommendations (2) Acute hypoxic respiratory failure: Code(s): J96.01 - Acute respiratory failure with hypoxia Status: Acute Assessment and Plan: -Pulmonology consulted. Less likely pneumonia, pneumonia specific antibiotics discontinued. Status post thoracentesis on 11/08/2024 showing exudative effusion, not infectious, macrophage predominant, likely related to colitis/fluid overload related to acute kidney injury. - echo on 10/08 demonstrating normal left ventricular function. - CXR 11/19 with persistent left lower lobe atelectasis with associated effusion - CT chest 11/20 with increase in size of moderate-sized bilateral posterior layering pleural effusions with secondary dependent atelectasis including complete collapse of the bilateral lobes - encouraged incentive spirometry, pulmonary hygiene - intermittently requiring oxygen and tachypneic - repeat thoracentesis ordered (3) Pleural effusion: Code(s): J90 - Pleural effusion, not elsewhere classified Status: Acute Assessment and Plan: - management as above (4) Hyponatremia: Code(s): E87.1 - Hypo-osmolality and hyponatremia Status: Acute Assessment and Plan: - nephrology on board. Multiple interventions including dialysis, IV fluids, diuretics, salt tabs, 3% hypertonic with minimal improvement. Na 124 which is minimally improved, but patient's intake is improving so hoping sodium will continue to rise. - Nephrology following (5) Anemia: Code(s): D64.9 - Anemia, unspecified Status: Acute Assessment and Plan: - Hgb 11.7 on admission, trended down to 9.0 10/7. Denied signs of bleeding, - likely multifactorial in setting of renal failure, IV fluids, critical illness - check iron studies (6) Adjustment disorder with depressed mood: Code(s): F43.21 - Adjustment disorder with depressed mood Status: Acute Assessment and Plan: - intermittently refused therapy. She is depressed because she has never been this ill before, relatively healthy previous to this admission. She denies adamantly any suicidal ideation, she also refuses to see Psychiatry or to start any pharmacological therapy. - affect seems to be improving. She worked with therapy 11/19. Encouraged to continue participation. Reassurance provided. - continue trazodone qHS (7) Hypertension: Code(s): I10 - Essential (primary) hypertension Status: Chronic Assessment and Plan: -Lisinopril and spironolactone on hold due to DONOVAN -Amlodipine initially on hold to allow titration of beta-christine. Will resume due to high BP trend. - monitor BP (8) Atrial flutter: Code(s): I48.92 - Unspecified atrial flutter Status: Acute Assessment and Plan: -New diagnosis, now converted to sinus rhythm. -Continue metoprolol 50 mg p.o. b.i.d.. -Digoxin stopped due to renal failure - continue Eliquis -Keep potassium greater than 4 magnesium greater than 2, keep renal failure in consideration when replacing electrolytes (9) Acute kidney injury: Code(s): N17.9 - Acute kidney failure, unspecified Status: Acute Assessment and Plan: -Infection vs Contrast related injury vs prerenal. Creatinine normal 2 days prior to admission Nephrology is following, right IJ Cecil dialysis catheter placed on 11/10/2024. -Dialysis started on 11/10/2024. No dialysis for some time now, Nephrology continues to manage. -Renal ultrasound without obstruction, urine electrolytes pre renal, urine eosinophils negative, CPK normal, mild proteinuria -Holding lisinopril and spironolactone -Holland catheter in place -Follow renal function labs and urine output -Disposition pending. When ready to pull out the IJ, hold Eliquis for at least 24 hours. 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 patient symptoms were improving and stools were forming however today patient stats she had several loose BM last night today feels tirade and weak, her Mag this morning was low, and supplemented, patient had low potassium and was given oral potassium which cause to have more diarrhea, will follow instruction from ID and further recommendation to follow. patient with DONOVAN, seen by casing splitter and her Scr is improving however, she does have proteinuria and the casing splitter added lisinopril. her potassium and calcium are low being supplement, will avoid oral potassium, will monitor. patient family is present and gave updates Code status: full code DVT prophylaxis: Priscila Dispo: possibly RO when medically stable. Care coordination following. 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 patient symptoms were improving and stools were forming however today patient stats she had several loose BM last night today feels tirade and weak, her Mag this morning was low, and supplemented, patient had low potassium and was given oral potassium which cause to have more diarrhea, will follow instruction from ID and further recommendation to follow. patient with DONOVAN, seen by casing splitter and her Scr is improving however, she does have proteinuria and the casing splitter added lisinopril. her potassium and calcium are low being supplement, will avoid oral potassium, will monitor. patient family is present and gave updates Patient clinicall symptoms remains stable, and clinically stable, will discharge to [facility] for Rehab. Time Spent with Patient Time attestation: Total time spent providing and/or coordinating discharge services: Exam Narrative: Patient is comfortable, NAD HEENT: eyes are clear and none icteric LUNGS:CTA HEART: RR S1S2 ABD: BS+, Soft and nontender Lower extremities: no edema SKIN: nonjaundiced Neuro: grossly intact. DS: Data Data Completed and Pending Completed studies during hospitalization: Pending at discharge 11/06/24 09:56 Cytology [PTH] Routine Labs on day of discharge: Labs from last 24 hours 11/29/24 06:25 WBC 5.7 RBC 2.78 L Hgb 8.3 L Hct 26.2 L MCV 94.2 MCH 29.9 MCHC 31.7 L RDW 14.8 H Plt Count 194 MPV 9.3 Immature Gran % (Auto) 1.1 H Neut % (Auto) 69.4 Lymph % (Auto) 18.9 Elliott % (Auto) 8.3 Eos % (Auto) 1.4 Baso % (Auto) 0.9 Lymph # (Auto) 1.07 Elliott # (Auto) 0.5 Eos # (Auto) 0.1 Baso # (Auto) 0.1 Abs Immat Gran (auto) 0.06 H Absolute Neuts (auto) 3.9 Absolute Nucleated RBC 0.000 Nucleated RBC % 0.0 Sodium 127 L Potassium 3.5 Chloride 94 L Carbon Dioxide 30 Anion Gap 3 L BUN 17 Creatinine 0.89 Estim Creat Clear Calc 46 Estimated GFR > 60 Glucose 116 H Calcium 7.5 L Magnesium 1.4 L Total Bilirubin 0.3 AST 565 H ALT 325 H Alkaline Phosphatase 77 Total Protein 4.8 L Albumin 2.4 L Preliminary micro results at discharge 11/08/24 10:58 Fungal Culture - Preliminary Pleural Fluid 11/08/24 10:58 Acid Fast Bacilli Culture - Preliminary Pleural Fluid Discharge Plan Discharge Attending physician on discharge: Isabell Domínguez Consulting providers: Cale Romano; Kathy Walsh; Demond Medina; Erika Beckman; Cale Liu; Poonam Willett; Stefan Aranda; Mukesh Horn; Patsy Ramirez; Idania Reyes; Rupa Mata; Isabell Domínguez; Beverly Claudio; Julian Appiah; Megan Cee; Richard Arriaga; Nasir Lofton; Porfirio Mann; Sampson Carreon; Claire Vuong; Ramin Ashford; Tha Duke; Uriel Capps; Wilbert Fan; Brandon Mathews Discharging Clinician: Janel Sandhu Patient Disposition: [facility] Activity: as tolerated Diet: heart healthy Discharge Instructions: Patient is being discharged to [facility] and will be followed by ID for C Diff, please follow taper regiment for Vancomycin recommended by the ID team. 125mg PO q8 Week 1 of 5 of PO Vancomycin Taper - start 11/28/24 125ng q12 Week 2 of 5 of PO Vancomycin Taper - start 12/06/24 125mg qd Week 3 of 5 of PO Vancomycin Taper - start 12/13/24 125mg q48h Weeks 4 and 5 of 5 of PO Vancomycin Taper - start 12/20/24, finish taper 01/01/25 Do not crush, open, or chew capsule. Contact pharmacy to use syrup for feeding tube administration. Patient Instructions: Apixaban (By mouth), Removal of a Central Line, PICC, or Midline Catheter (GEN) Patient Language: East Timorese Follow-up/Referrals: Yaniv Elmore MD [Primary Care Provider, [facility]] Demond Medina MD [Physician, Infectious Disease] Discharge Medications: New acetaminophen 325 mg Tablet 650 mg PO Q4H PRN (Reason: Headache) Qty: 30 0RF calcium carbonate-vitamin D3 [Oyster Shell Calcium-Vit D3] 500 mg-5 mcg (200 unit) Tablet 1 tablet PO BIDWM Qty: 60 0RF Eliquis 2.5 mg Tablet 2.5 mg PO Q12HR Qty: 60 0RF ipratropium-albuterol 0.5 mg-3 mg(2.5 mg base)/3 mL Solution For Nebulization 3 ml inhalation Q6HRT Qty: 90 0RF magnesium oxide 400 mg (241.3 mg magnesium) Tablet 400 mg PO QAM Qty: 30 0RF furosemide 20 mg Tablet 20 mg PO BID Qty: 60 0RF metoprolol tartrate 50 mg Tablet 50 mg PO BID Qty: 60 0RF Saline Mist 0.65 % Aerosol,Josephine 1 spray intranasal Q6HR PRN (Reason: Congestion) Qty: 10 0RF sodium chloride 1,000 mg Tablet,Soluble 1,000 mg PO BID Qty: 60 0RF Continued Restasis MultiDose 0.05 % drops 1 drp EACH EYE Q12H Qty: 5.5 3RF terbinafine HCl 250 mg tablet 250 mg PO DAILY Rx Instructions: for 7 days one week out to the month ondansetron 4 mg tablet,disintegrating 4 mg PO Q6H PRN (Reason: nausea and vomiting) Qty: 10 0RF hydrocodone-acetaminophen 5-325 mg tablet 1 tablet PO Q6H PRN (Reason: pain) Qty: 12 0RF alprazolam 0.25 mg tablet 0.25 mg PO QHS PRN (Reason: anxiety) Qty: 10 0RF Rx Instructions: must last 90 days amlodipine 10 mg tablet 10 mg PO DAILY Qty: 90 1RF spironolactone 50 mg tablet See Rx Instructions .ROUTE .COMPLEX Qty: 90 0RF Dose Instruction: Take 1 tablet by mouth once daily Rx Instructions: Take 1 tablet by mouth once daily lisinopril 40 mg tablet 40 mg PO DAILY Qty: 90 1RF Discontinued amoxicillin-pot clavulanate 875-125 mg tablet 1 tablet PO Q12H Qty: 14 0RF No Action vancomycin 125 mg Capsule 125 mg PO DAILY Rx Instructions: taper- week 3 of 5, start 12/13/24 vancomycin 125 mg Capsule 125 mg PO Q48H Rx Instructions: taper- weeks 4&5 of , start 12/20/24. finish taper 01/01/25 vancomycin 125 mg Capsule 125 mg PO Q8HR Rx Instructions: taper- week 1 of 5 (start 11/28/24) vancomycin 250 mg Capsule 125 mg PO Q12HR Rx Instructions: taper- week 2 of 5, start 12/06/24 trazodone 50 mg tablet 50 mg PO HS simvastatin 20 mg tablet 20 mg PO DAILY Date of admission: 11/03/24 13:08 Primary Care Provider: Yaniv Elmore Admitting Provider: Venice Jordan Attending physician on admission: Janel Sandhu Condition: Stable
== END 2024-11-29 19:51 | DRG 371 ==
LOC: ANHED 13:12 → ANH2MED 16:08 → ANHIMU 11-06 15:19 → ANH2MED 11-16 07:36 → ANHIMU 11-30 09:50
PROVIDERS: General Practice; Internal Medicine; Internal Medicine Nephrology; Internal Medicine Pulmonary Disease; Nurse Practitioner; Nurse Practitioner Adult Health; Nurse Practitioner Gerontology; Physician Assistant; Radiology Diagnostic Radiology; Student in an Organized Health Care Education/Training Program; Admitting Provider General Practice; Emergency Provider Nurse Practitioner Family; PCP Family Medicine; Visit Provider Family Medicine
DX: A04.71 Enterocolitis due to Clostridium difficile, recurrent (principal); J96.01 Acute respiratory failure with hypoxia; E87.1 Hypo-osmolality and hyponatremia; I48.92 Unspecified atrial flutter; N17.9 Acute kidney failure, unspecified; K57.32 Diverticulitis of large intestine without perforation or abscess without bleeding; E87.21 Acute metabolic acidosis; J90 Pleural effusion, not elsewhere classified; T50.8X5A Adverse effect of diagnostic agents, initial encounter; E87.79 Other fluid overload; F43.21 Adjustment disorder with depressed mood; I10 Essential (primary) hypertension; F41.9 Anxiety disorder, unspecified; D63.8 Anemia in other chronic diseases classified elsewhere; E78.5 Hyperlipidemia, unspecified; R33.9 Retention of urine, unspecified; E86.0 Dehydration; I48.91 Unspecified atrial fibrillation; D72.829 Elevated white blood cell count, unspecified; Z99.2 Dependence on renal dialysis
CPT/HCPCS: 32555; 36415; 36569; 36600; 70450; 71045; 71046; 71250; 74018; 74176; 74177; 76770; 77080; 80048; 80053; 80069; 81001; 82042; 82533; 82550; 82570; 82705; 82728; 82784; 82805; 82945; 83540; 83550; 83605; 83615; 83690; 83735; 83880; 83930; 83935; 83986; 84100; 84132; 84145; 84155; 84156; 84157; 84165; 84166; 84300; 84311; 84439; 84443; 84480; 84484; 84540; 85018; 85025; 85027; 85610; 85730; 85999; 86140; 86334; 86335; 86704; 86706; 86738; 87040; 87045; 87046; 87070; 87075; 87101; 87116; 87206; 87340; 87427; 87449; 87493; 87637; 87641; 87899; 88108; 88305; 88342; 89051; 93005; 93970; 94640; 96365; 96374; 96375; 97110; 97161; 97164; 97165; 97530; 97535; 99284; 99285; A9270; C1751; C8929; G0257; J0282; J0613; J0616; J1160; J1163; J1200; J1644; J1836; J1938; J1939; J2003; J2270; J2405; J2543; J2997; J3010; J3475; J3480; J7030; J7131; P9047; Q5105; Q9957; Q9967

== ENCOUNTER 2024-11-30 13:17 | Inpatient (IN) | payer MEDICARE, SELFPAY ==
[2024-11-30] VITALS (7 sets, daily range): BP systolic 153–173; BP diastolic 57–72; PULSE 67–76; RESP 18–28; TEMP 36.2; O2SAT 93–97; BMI 31.1
--- NOTE | ~2024-11-30 | CT_ITS ---
EXAMINATION: CT diagnostic chest w con DATE: 12/06/2024 13:51 INDICATION: re eval pleural affusions, atelectasis TECHNIQUE: Computed tomography (CT) of the chest was performed without intravenous contrast. Additional 3D reconstructions utilizing coronal maximum intensity projection (MIP) were performed. Automated exposure control and iterative reconstruction technique were employed. The dose-length product was 19 3.31 mGy-cm. COMPARISON: None FINDINGS: Small left and moderate-sized right posterior layering pleural effusions. Volume loss in bilateral lower lobes with dependent consolidation consistent with compressive atelectasis. There are patchy groundglass opacities anterior to the regions of consolidation also likely related to atelectasis although differential includes pneumonia. Additional discoid atelectasis in the dependent aspect of the right middle lobe and lingula. Heart size is normal. Atherosclerotic coronary artery calcifications. No pericardial effusion. Thoracic aorta is normal in caliber with no dissection. No interval change in a 2.4 x 1.4 cm fluid attenuation cysts in the anterior mediastinum without evident solid soft tissue component. No pathologically enlarged thoracic lymphadenopathy. Mild thoracic dextrocurvature with mild spondylosis and bridging osteophytes at multiple levels consistent with diffuse idiopathic skeletal hyperostosis (DISH). IMPRESSION: 1. Small left and moderate-sized right posterior layering pleural effusions. 2. Dependent consolidation and groundglass opacities in the bilateral lower lobes with associated volume loss and favor atelectasis over pneumonia. 3. 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 Reviewed, dictated and finalized at location A. IMPRESSION: 1. Small left and moderate-sized right posterior layering pleural effusions. 2. Dependent consolidation and groundglass opacities in the bilateral lower lob es with associated volume loss and favor atelectasis over pneumonia. 3. Unchanged 2.4 x 1.4 cm likely benign cystic lesion in the anterior mediastin um which could represent a thymic, pericardial or foregut duplication cyst.
--- NOTE | ~2024-11-30 | XR_ITS ---
EXAMINATION: XR chest 1V portable COMPARISON: No comparisons available. HISTORY: re eval FINDINGS: Moderate pulmonary venous congestion. Basilar infiltrates. No pneumothorax. Heart is normal size. Mediastinal and hilar contours are within normal limits. Bony thorax no acute abnormality. Miscellaneous: Nonspecific distended loops of bowel in the visualized abdomen, dedicated imaging recommended. Impression: Bilateral probable pneumonia. Findings are progressed compared to the previous study. Distended loops of bowel in the visualized abdomen. Dedicated imaging recommended Reviewed, dictated and finalized at location P. Impression: Bilateral probable pneumonia. Findings are progressed compared to the previous study. Distended loops of bowel in the visualized abdomen. Dedicated imaging re commended
--- NOTE | ~2024-11-30 | US_ITS ---
Examination: Ultrasound of the retroperitoneum including kidneys and bladder. Clinical History: bladder distention . Comparison: CT chest abdomen pelvis 11/30/2024. Findings: Right kidney: 9 cm. Normal echogenicity. No collecting system dilatation. No shadowing calculi. Left kidney: 9 cm. Normal echogenicity. No collecting system dilatation. No shadowing calculi. 4 cm simple cyst. Tiny probable additional cyst Urinary bladder: No wall thickening or focal abnormality. Small layering debris. Post void - 328 ml. IMPRESSION: 1. No hydronephrosis. 2. Post void bladder volume residual 3280 mL. Reviewed, dictated and finalized at location R.
--- NOTE | ~2024-11-30 | XR_ITS ---
EXAMINATION: XR ankle RT min 3V, 12/11/2024 14:30 CDT HISTORY: pain, swelling STARTED THIS AM COMPARISON: No comparisons available. Findings: Remote fracture medial malleolus, no acute fracture. Moderate degenerative changes. Soft tissue swelling. Impression: No acute fracture or malalignment. Reviewed, dictated and finalized at location P. Impression: No acute fracture or malalignment.
--- NOTE | ~2024-11-30 | US_ITS ---
EXAMINATION: US thoracentesis DATE: 12/01/2024 10:15 INDICATION: Right pleural effusion TECHNIQUE: The procedure and its risks and benefits were discussed with the patient. Potential risks discussed included bleeding, infection, and pneumothorax. The patient understood the risks and agreed to proceed. The skin was prepped and draped in sterile fashion. 1% lidocaine was used for local anes thesia. Under ultrasound guidance, a 5 Fr catheter with trochar was advanced into the right pleural effusion. Fluid was aspirated. The catheter was removed, and a dressing was applied. There were no immediate complications. FINDINGS: Ultrasound images demonstrate a small right pleural effusion and the catheter within the fluid. IMPRESSION: 1. Successful ultrasound-guided thoracentesis yielding 450 mL of clear straw- colored fluid. Reviewed, dictated and finalized at location A. IMPRESSION: 1. Successful ultrasound-guided thoracentesis yielding 450 mL of clear straw-c olored fluid.
--- NOTE | ~2024-11-30 | XR_ITS ---
EXAMINATION: XR chest 2V w RT decubitus, 12/08/2024 14:37 CDT HISTORY: right pleural effusion COMPARISON: No comparisons available. Technique: Single view. Findings: Moderate pulmonary venous congestion. Moderate to large right basilar infiltrate and effusion. Small left basilar infiltrate and effusion. No pneumothorax. Moderate cardiomegaly. Mediastinal and hilar contours are within normal limits. Bony thorax no acute abnormality. Impression: CHF. Superimposed pneumonia suspected with free-flowing moderate right pleural effusion. The findings appear slightly progressed compared to the previous exam Reviewed, dictated and finalized at location P. Impression: CHF. Superimposed pneumonia suspected with free-flowing moderate right pleural effusion. The findings appear slightly progressed compared to the previous exam
--- NOTE | ~2024-11-30 | CT_ITS ---
EXAMINATION: CT chest abdomen pelvis w con DATE: 11/30/2024 15:02 INDICATION: Elevated liver function tests TECHNIQUE: Computed tomography (CT) of the chest, abdomen, and pelvis was performed with 100 mL Omnipaque-350 intravenous contrast. Automated exposure control and iterative reconstruction technique were employed. The dose-length product was 1232.99 mGy-cm. COMPARISON: Chest CT dated 11/20/[address] chest, abdomen and pelvis dated 11/05/[address] abdomen and pelvis dated 11/01/2024 FINDINGS: CHEST CT: Moderate-sized bilateral posterior layering pleural effusions with complete collapse of the right lower lobe and partial collapse of the left lower lobe. There is some additional dependent compressive atelectasis in the lingula, right middle and bilateral upper lobes. No pulmonary edema or pneumonia in the aerated portions of the lungs. Borderline heart size. Atherosclerotic coronary artery calcifications. No pericardial effusion. 2.4 x 1.4 cm fluid attenuation cysts in the anterior mediastinum without evident solid soft tissue component. No pathologically enlarged thoracic lymphadenopathy. Mild thoracic dextrocurvature with mild spondylosis and bridging osteophytes at multiple levels consistent wi th diffuse idiopathic skeletal hyperostosis (DISH). ABDOMEN/PELVIS CT: Liver, gallbladder, spleen and bilateral adrenal glands are normal. Mild bilateral hydroureteronephrosis which may be related to bladder outlet obstruction or neurogenic bladder with marked distention of the bladder which measures 20.6 x 10.1 x 15.2 cm. There are couple left renal cysts the larger measuring 4.4 cm in maximal diameter. No significant interval change in a 3 small cystic lesion at the body and tail the pancreas the largest measuring 1.4 cm in maximal diameter. There is mild scattered colonic diverticulosis. There is fluid throughout the colon consistent with diarrhea. There is persistent wall thickening of the colon, mild at the cecum and moderate along the descending and proximal sigmoid colon. There is more localized paracolonic inflammatory stranding along the sigmoid colon and would favor diverticulitis over colitis. Small bowel and appendix are normal. Small amount of likely reactive ascites predominantly in the upper abdomen and along the left paracolic gutter. No organized abscess or free intraperitoneal gas. There is body wall edema tracking along the flanks significantly more prominent on the left than the right. There is additional asymmetric right-sided prominent subcutaneous edema at the proximal left thigh. 25 degrees lumbar levoscoliosis with severe lumbar spondylosis. IMPRESSION: 1. No significant change in a moderate-sized bilateral pleural effusions with complete collapse of the right lower lobe, partial collapse of the left lower lobe and additional mild dependent atelectasis in the remaining lobes of both lungs. 2. Radiographically uncomplicated colitis versus more likely descending colon diverticulitis. 3. Small amount of scattered ascites with no organized abscess or free intraperitoneal gas. 4. No interval change in 3 simple appearing cystic lesions at the body and tail the pancreas measuring up to 1.4 cm. The differential diagnosis includes pseudocyst, intraductal papillary mucinous neoplasm (IPMN), mucinous cystic neoplasm (MCN), and the less common serous cystadenoma and neuroendocrine tumor. Correlate for history of pancreatitis. Recommend 2 year follow-up pre and postcontrast MRI. 5. 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 Reviewed, dictated and finalized at location A. IMPRESSION: 1. No significant change in a moderate-sized bilateral pleural effusions with c omplete collapse of the right lower lobe, partial collapse of the left lower lo be and additional mild dependent atelectasis in the remaining lobes of both alonso gs. 2. Radiographically uncomplicated colitis versus more likely descending colon d iverticulitis. 3. Small amount of scattered ascites with no organized abscess or free intraper itoneal gas. 4. No interval change in 3 simple appearing cystic lesions at the body and tail the pancreas measuring up to 1.4 cm. The differential diagnosis includes pseud ocyst, intraductal papillary mucinous neoplasm (IPMN), mucinous cystic neoplasm (MCN), and the less common serous cystadenoma and neuroendocrine tumor. Correl ate for history of pancreatitis. Recommend 2 year follow-up pre and postcontras t MRI. 5. 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
--- NOTE | ~2024-11-30 | XR_ITS ---
EXAMINATION: [id number] DATE: 12/01/2024 10:01 INDICATION: Status post right thoracentesis TECHNIQUE: frontal view of the chest was obtained. COMPARISON: Chest radiograph dated 11/21/2024 FINDINGS: Interval resolution of the previously seen right pleural effusion. Unchanged very small left pleural effusion. Lung volumes are small with opacities in the lower lung zones which could represent atelectasis or pneumonia. No pneumothorax. Heart size is normal. Dense mitral annular calcification. IMPRESSION: 1. No residual right pleural effusion postthoracentesis. 2. Small lung volumes with opacities at the bilateral lower lung zones consistent with very small left pleural effusion and bibasilar atelectasis and/or pneumonia. Reviewed, dictated and finalized at location A. IMPRESSION: 1. No residual right pleural effusion postthoracentesis. 2. Small lung volumes with opacities at the bilateral lower lung zones consiste nt with very small left pleural effusion and bibasilar atelectasis and/or pneum onia.
--- NOTE | ~2024-11-30 | XR_ITS ---
EXAMINATION: XR chest 1V, 11/30/2024 15:00 CDT HISTORY: sob COMPARISON: No comparisons available. Technique: Single view. Findings: Moderate pulmonary venous congestion. Small right basilar infiltrate and effusion. No pneumothorax. Moderate cardiomegaly. Mediastinal and hilar contours are within normal limits. Bony thorax no acute abnormality. Nonspecific distended loops of bowel within the visualized abdomen, dedicated imaging suggested. Impression: CHF. Right basilar pneumonia. Imaging of the abdomen suggested. Reviewed, dictated and finalized at location P. Impression: CHF. Right basilar pneumonia. Imaging of the abdomen suggested.
--- NOTE | ~2024-11-30 | XR_ITS ---
EXAMINATION: XR chest 1V portable COMPARISON: No comparisons available. HISTORY: right effusion FINDINGS: Small basilar infiltrates and effusions. No pneumothorax. Heart is normal size. Mediastinal and hilar contours are within normal limits. Bony thorax no acute abnormality. Miscellaneous: None Impression: Bilateral pneumonia. The findings appear improved compared to the previous study Reviewed, dictated and finalized at location P. Impression: Bilateral pneumonia. The findings appear improved compared to the previous stud y
--- NOTE | ~2024-11-30 | XR_ITS ---
EXAMINATION: XR chest 1V portable DATE: 12/04/2024 05:24 INDICATION: Reevaluate for pleural effusion TECHNIQUE: frontal view of the chest was obtained. COMPARISON: Chest radiograph dated 12/03/2024 FINDINGS: Small lung volumes. Persistent airspace opacities in bilateral lower lung zones which includes very small bilateral pleural effusions. No pneumothorax. Heart size is normal. Mitral annular calcification. IMPRESSION: 1. Persistent opacities in bilateral lower lung zones which could represent very small bilateral pleural effusions and associated basilar atelectasis and/or pneumonia. Reviewed, dictated and finalized at location A. IMPRESSION: 1. Persistent opacities in bilateral lower lung zones which could represent katrin y small bilateral pleural effusions and associated basilar atelectasis and/or p neumonia.
--- NOTE | 2024-11-30 13:56 | ECG_ITS ---
Test Date: 2024-11-30 14:11:28 Measurements Intervals Dyke Rate: 66 P: 20 ME: 141 QRS: -23 QRSD: 86 T: 18 QT: 401 QTc: 421 Interpretive Statements SINUS RHYTHM DELAYED PRECORDIAL R/S TRANSITION BORDERLINE T WAVE ABNORMALITY- ANTEROLAT/INF LEADS BASELINE ARTIFACT- V5 BORDERLINE ECG Compared to ECG 11/14/2024 09:30:49 NO SIGNIFICANT CHANGE Electronically Signed On 11-30-2024 14:36:16 CDT by Eddi Glez D.O.
--- NOTE | 2024-11-30 13:58 | ED.RECABL ---
HPI - Recheck/Abnormal Lab/Rx General Chief Complaint: Recheck/Abnormal Lab/Rx Stated Complaint: abn labs Time Seen by Provider: 11/30/24 13:45 History of Present Illness HPI narrative: Pt just discharged lasat night from hospital after stay for fluid overload and c dif. [facility] and liver enzymes had nearly doubled from yesterday. Pt denies abdominal pain. Pt says she is swollen and has somne SOB. These symptoms are similar to what she had in the hospital. Pt denies CP. Related Data Home Medications ?Medication ?Instructions ?Recorded ?Confirmed ?Last Taken ?Type terbinafine HCl 250 mg tablet 250 mg PO DAILY 09/03/23 11/29/24 Unknown History vancomycin 125 mg capsule 125 mg PO DAILY 11/29/24 11/29/24 Unknown History vancomycin 125 mg capsule 125 mg PO Q48H 11/29/24 11/29/24 Unknown History vancomycin 125 mg capsule 125 mg PO Q8HR 11/29/24 11/29/24 11/29/24 16:45 History vancomycin 250 mg capsule 125 mg PO Q12HR 11/29/24 11/29/24 Unknown History Allergies Allergy/AdvReac Type Severity Reaction Status Date / Time morphine Allergy Itching Verified 11/30/24 21:16 Review of Systems Review of Systems: All systems reviewed & are unremarkable except as noted in HPI and below [facility] Past Medical History Medical History (Updated 11/30/24 @ 17:32 by Patsy Ramirez APRN) Diastolic dysfunction Pleural effusion Anemia Diverticulitis large intestine Anxiety Hyperlipidemia BMI 25.0-25.9,adult Hypertension Family History Family History Father Hypertension Cerebrovascular accident Mother Heart disease Sibling Diabetes mellitus Sibling Diabetes mellitus Social History Social History Smoking status: Never smoker Second hand tobacco smoke exposure: No Alcohol intake: never Substance use: never Substance use type: does not use Lack of Transportation: No Lack of Food: Never True Current Housing: I Have Housing Concerned About Future Housing: No Difficulty Paying Gas/Electric Bills: No Difficulty Paying for Meds: No Currently Unemployed: No Education: High School Diploma/GED Difficulty w/ Childcare or Family Care: No Living arrangements: with family 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 Gender identity (if verbalized by the patient): Female Spiritual care concerns: No Exam Const: General: no acute distress Nutritional Appearance: well nourished Orientation/consciousness: patient oriented x3 Limitations: no limitations Neck: Neck: normal visual inspection Chest: Chest palpation & inspection: normal inspection of the chest Resp: Effort & Inspection: normal respiratory effort Auscultation: crackles Cardio: Rate: regular rate Rhythm: regular rhythm GI: GI Palp: Yes Soft to palpation and No Tenderness to palpation present (GI) Auscultation: normal bowel sounds Skin: General skin exam: normal color Rashes: no rashes Neuro: General: patient oriented x3, moves all extremities and no focal motor deficits Speech: normal speech Extrem: General: edema Psych: Mental Status: mental status grossly normal Affect: normal affect Attitude: cooperative Course Vital Signs Vital signs: Vital Signs Pulse Rate 67 11/30/24 13:17 Respiratory Rate 25 H 11/30/24 13:17 Blood Pressure 161/58 H 11/30/24 13:17 Pulse Oximetry 94 11/30/24 13:17 Oxygen Delivery Nasal Cannula 11/30/24 13:17 Oxygen Flow Rate 3 11/30/24 13:17 Pulse Rate 71 11/30/24 20:55 Respiratory Rate 24 H 11/30/24 20:55 Blood Pressure 158/72 H 11/30/24 20:55 Pulse Oximetry 93 11/30/24 20:55 Oxygen Delivery Nasal Cannula 11/30/24 15:24 Oxygen Flow Rate 3 11/30/24 15:24 MDM - Recheck/Abnormal Lab/Rx MDM Narrative Medical decision making narrative: DDx includes medicine induced liver enzyme elevation, fluid overload, retaqined gallstone, liver injury among others. discussed with patsy Romo and agrees to admit Lab Data Attestation: I reviewed the patient's lab results. 11/30/24 14:06 11/30/24 14:06 Labs: Lab Results 11/30/24 Range/Units 14:06 WBC 5.8 (4.5-10.0) K/mm3 RBC 3.10 L (4.2-5.4) M/mm3 Hgb 9.3 L (12.0-15.0) g/dL Hct 28.5 L (37.0-47.0) % MCV 91.9 (80-100) fl MCH 30.0 (26-34) pg MCHC 32.6 (32-36) g/dl RDW 14.9 H (11.5-14.5) % Plt Count 237 (150-375) k/mm3 MPV 9.7 (7.4-10.4) fl Immature Gran % (Auto) 1.0 H (0-0.5) % Neut % (Auto) 61.9 (45.5-73.1) % Lymph % (Auto) 25.2 (18.3-44.2) % Knott % (Auto) 9.0 H (2.6-8.5) % Eos % (Auto) 1.7 (0-4.4) % Baso % (Auto) 1.2 (0.2-1.2) % Lymph # (Auto) 1.45 (0.9-3.2) K/mm3 Knott # (Auto) 0.5 (0.1-0.6) K/mm3 Eos # (Auto) 0.1 (0-0.3) K/mm3 Baso # (Auto) 0.1 (0.0-0.1) K/mm3 Abs Immat Gran (auto) 0.06 H (0.00-0.031) K/mm3 Absolute Neuts (auto) 3.6 (1.3-6.7) K/mm3 Absolute Nucleated RBC 0.000 (0.0-0.012) K/mm3 Band Neutrophils % Not Reportable Nucleated RBC % 0.0 (0.0-0.2) % Atypical Lymphocytes Present Platelet Estimate Adequate (Adequate) Ovalocytes Occasional Schistocytes None seen PT 17.6 H (11.1-14.7) Seconds INR 1.5 APTT 31.7 (22.3-36.8) Seconds Sodium 129 L (137-145) mmol/L Potassium 3.0 L (3.4-5.0) mmol/L Chloride 93 L (98-107) mmol/L Carbon Dioxide 31 H (22-30) mmol/L Anion Gap 5 (4-12) mmol/L BUN 16 (7-17) mg/dL Creatinine 0.90 (0.7-1.0) mg/dL Estim Creat Clear Calc 46 ml/min Estimated GFR > 60 (59 - ) Glucose 131 H (65-110) mg/dL Calcium 7.6 L (8.4-10.2) mg/dL Total Bilirubin 0.4 (0.2-1.3) mg/dL AST 785 H (14-36) U/L ALT 667 H (6-35) U/L Alkaline Phosphatase 96 (38-126) U/L Troponin I < 0.012 (0.000-0.034) ng/mL NT-Pro-B Natriuret Pep 837 H (19.9-100) pg/mL Total Protein 5.3 L (6.3-8.2) g/dL Albumin 2.8 L (3.5-5.1) g/dL Lipase 46 (23-300) U/L Acetaminophen < 10 L (10-30) ug/mL Imaging Data Attestation: I personally reviewed and interpreted this imaging study as follows: My impression: ascites and b/l pleural effusions Radiologist's impression: [place] [address] [address] [place] [address] CT Scan Report Signed Patient: Berenice Alex : 1945 MR#: [id number] Age: 78 Acct:[id number] Loc: [facility] ADM Date: 11/30/[address]: Ordering Physician: Mervat Moe III, DO Date of Service: 11/30/24 Procedure(s): CT chest abdomen pelvis w con Accession Number(s): [id number] cc: Mervat Moe III, DO; Yaniv Elmore MD~ EXAMINATION: CT chest abdomen pelvis w con DATE: 11/30/2024 15:02 INDICATION: Elevated liver function tests TECHNIQUE: Computed tomography (CT) of the chest, abdomen, and pelvis was performed with 100 mL Omnipaque-350 intravenous contrast. Automated exposure control and iterative reconstruction technique were employed. The dose-length product was 1232.99 mGy-cm. COMPARISON: Chest CT dated 11/20/[address] chest, abdomen and pelvis dated 11/05/[address] abdomen and pelvis dated 11/01/2024 FINDINGS: CHEST CT: Moderate-sized bilateral posterior layering pleural effusions with complete collapse of the right lower lobe and partial collapse of the left lower lobe. There is some additional dependent compressive atelectasis in the lingula, right middle and bilateral upper lobes. No pulmonary edema or pneumonia in the aerated portions of the lungs. Borderline heart size. Atherosclerotic coronary artery calcifications. No pericardial effusion. 2.4 x 1.4 cm fluid attenuation cysts in the anterior mediastinum without evident solid soft tissue component. No pathologically enlarged thoracic lymphadenopathy. Mild thoracic dextrocurvature with mild spondylosis and bridging osteophytes at multiple levels consistent with diffuse idiopathic skeletal hyperostosis (DISH). ABDOMEN/PELVIS CT: Liver, gallbladder, spleen and bilateral adrenal glands are normal. Mild bilateral hydroureteronephrosis which may be related to bladder outlet obstruction or neurogenic bladder with marked distention of the bladder which measures 20.6 x 10.1 x 15.2 cm. There are couple left renal cysts the larger measuring 4.4 cm in maximal diameter. No significant interval change in a 3 small cystic lesion at the body and tail the pancreas the largest measuring 1.4 cm in maximal diameter. There is mild scattered colonic diverticulosis. There is fluid throughout the colon consistent with diarrhea. There is persistent wall thickening of the colon, mild at the cecum and moderate along the descending and proximal sigmoid colon. There is more localized paracolonic inflammatory stranding along the sigmoid colon and would favor diverticulitis over colitis. Small bowel and appendix are normal. Small amount of likely reactive ascites predominantly in the upper abdomen and along the left paracolic gutter. No organized abscess or free intraperitoneal gas. There is body wall edema tracking along the flanks significantly more prominent on the left than the right. There is additional asymmetric right-sided prominent subcutaneous edema at the proximal left thigh. 25 degrees lumbar levoscoliosis with severe lumbar spondylosis. IMPRESSION: 1. No significant change in a moderate-sized bilateral pleural effusions with complete collapse of the right lower lobe, partial collapse of the left lower lobe and additional mild dependent atelectasis in the remaining lobes of both lungs. 2. Radiographically uncomplicated colitis versus more likely descending colon diverticulitis. 3. Small amount of scattered ascites with no organized abscess or free intraperitoneal gas. 4. No interval change in 3 simple appearing cystic lesions at the body and tail the pancreas measuring up to 1.4 cm. The differential diagnosis includes pseudocyst, intraductal papillary mucinous neoplasm (IPMN), mucinous cystic neoplasm (MCN), and the less common serous cystadenoma and neuroendocrine tumor. Correlate for history of pancreatitis. Recommend 2 year follow-up pre and postcontrast MRI. 5. 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 Reviewed, dictated and finalized at location A. Please be advised this is a medical document. It is intended for [id number] communication. It is written in medical language and may contain unfamiliar abbreviations or verbiage. Medical documents are intended to carry relevant information, facts as evident, and the clinical opinion of the practitioner at the time of the encounter. This report may have been done utilizing a voice recognition system. Attempts have been made to correct errors. However, there may be uncorrected grammatical, spelling, and recognition errors present. The file time of this note does not necessarily represent the time of service. Dictated By: Ramin Ashford MD 11/30/24 1530 Signed By: <Electronically signed by Ramin Ashford MD in OV> 11/30/24 1551 Discharge Plan Discharge Clinical Impression: Fluid overload Patient Disposition: Still a Patient Condition: Stable
[2024-11-30] MEDS: FUROSEMIDE INJ 40 MG/4 ML VIAL IV PUSH ×2 (14:19→23:21)
[2024-11-30 14:21] LABS: Hematocrit 28.5 % (37.0-47.0); Hemoglobin 9.3 g/dL (12.0-15.0); Immature Granulocyte Percent A 1.0 % (0-0.5); Lymphocytes Absolute Auto 1.45 K/mm3 (0.9-3.2); Mean Corpuscular HGB Conc 32.6 g/dl (32-36); Mean Corpuscular Hemoglobin 30.0 pg (26-34); Mean Corpuscular Volume 91.9 fl (80-100); Nucleated Red Blood Cells Absolute Auto 0.000 K/mm3 (0.0-0.012); Nucleated Red Blood Cells Perc 0.0 % (0.0-0.2); Platelet Count Result 237 k/mm3 (150-375); Red Blood Count 3.10 M/mm3 (4.2-5.4); White Blood Count 5.8 K/mm3 (4.5-10.0)
[2024-11-30 14:33] LABS: INR 1.5; Partial Thromboplastin Time 31.7 Seconds (22.3-36.8); Prothrombin Time 17.6 Seconds (11.1-14.7)
[2024-11-30 14:43] LABS: Acetaminophen < 10 ug/mL (10-30)
[2024-11-30 14:50] LABS: Alanine Aminotransferase 667 U/L (6-35); Albumin Level 2.8 g/dL (3.5-5.1); Alkaline Phosphatase 96 U/L (38-126); Anion Gap 5 mmol/L (4-12); Bilirubin,Total 0.4 mg/dL (0.2-1.3); Blood Urea Nitrogen 16 mg/dL (7-17); Calcium 7.6 mg/dL (8.4-10.2); Carbon Dioxide 31 mmol/L (22-30); Chloride 93 mmol/L (98-107); Estimated CRCL calculation 46 ml/min; Estimated Glomerular Filt Rate > 60; Glucose 131 mg/dL (65-110); Lipase 46 U/L (23-300); Potassium 3.0 mmol/L (3.4-5.0); Sodium 129 mmol/L (137-145); Total Protein 5.3 g/dL (6.3-8.2)
[2024-11-30 14:57] LABS: NT Pro B Type Natriuretic Pept 837 pg/mL (19.9-100); Troponin I < 0.012 ng/mL (0.000-0.034)
[2024-11-30 15:16] LABS: Ovalocytes Occasional; Schistocytes None Seen
[2024-11-30 16:26] LABS: Aspartate Amino Transferase 785 U/L (14-36)
--- NOTE | 2024-11-30 16:30 | P.HP_ITS ---
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 Patient had a prolonged course Cesar due to congestive heart failure with fluid overload pleural effusions and new AFib with RVR. She was discharged yesterday to rehab. She states that she had no complaints with at the time however she states that she still extremely fluid overloaded and has recently gone up on her oxygen with shortness of breath. Patient denies fever chills Lab work shows hemoglobin 9.3 which is around baseline, INR 1.5, sodium of 129, potassium of 3.0, calcium is 7.6, AST of 785, ALT of 667, troponin negative, BNP 837, protein 5.3, albumin 2.8, CT shows moderate-sized bilateral pleural effusions with complete collapse of the right lower lobe, partial collapse of the left lower lobe and additional mild dependent atelectasis in the remaining lobes of both lungs, colitis versus more likely descending colon diverticulitis, ascites,Simple appearing likely benign 2.4 x 1.4 cm cyst in the anterior mediastinum which could represent a thymic, pericardial or foregut duplication cyst, and stable cystic lesions in the pancreas. ED patient was given 40 mg Lasix in the ED and potassium. Review of Systems Review of Systems: 12 systems were reviewed and are negativ e except for as per HPI. [facility] Past Medical History Medical History (Updated 11/30/24 @ 23:30 by Patsy Ramirez APRN) Diastolic dysfunction Pleural effusion Anemia Diverticulitis large intestine Anxiety Hyperlipidemia BMI 25.0-25.9,adult Hypertension Family History Family History Father Hypertension Cerebrovascular accident Mother Heart disease Sibling Diabetes mellitus Sibling Diabetes mellitus Social History Social History Smoking status: Never smoker Second hand tobacco smoke exposure: No Alcohol intake: never Substance use: never Substance use type: does not use Lack of Transportation: No Lack of Food: Never True Current Housing: I Have Housing Concerned About Future Housing: No Difficulty Paying Gas/Electric Bills: No Difficulty Paying for Meds: No Currently Unemployed: No Education: High School Diploma/GED Difficulty w/ Childcare or Family Care: No Living arrangements: with family 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 Gender identity (if verbalized by the patient): Female Spiritual care concerns: No Meds Home Medications and Allergies Home Medications ?Medication ?Instructions ?Recorded ?Confirmed ?Type cyclosporine 0.05 % eye drops 1 drp EACH EYE Q12H #5.5 mL 03/18/21 11/30/24 Rx (Restasis MultiDose) terbinafine HCl 250 mg tablet 250 mg PO DAILY 09/03/23 11/30/24 History amlodipine 10 mg tablet 10 mg PO DAILY #90 tabs 03/1111/30/24 Rx spironolactone 50 mg tablet See Rx Instructions .Route 08/07/24 11/30/24 Rx .COMPLEX #90 tabs lisinopril 40 mg tablet 40 mg PO DAILY #90 tabs 09/1511/30/24 Rx ondansetron 4 mg disintegrating 4 mg PO Q6H PRN nausea and 11/01/24 11/30/24 Rx tablet vomiting #10 tabs acetaminophen 325 mg tablet 650 mg (2 x 325 mg) PO Q4H PRN 11/29/24 11/30/24 Rx Headache #30 tabs alprazolam 0.25 mg tablet 0.25 mg PO QHS PRN anxiety # 10 tabs 11/29/24 11/30/24 Rx apixaban 2.5 mg tablet (Eliquis) 2.5 mg PO Q12HR #60 t abs 11/29/24 11/30/24 Rx calcium 500 mg (as 1 tablet PO BIDWM #60 tabs 1 11/30/24 Rx carbonate)-vitamin D3 5 mcg (200 unit) tablet (Oyster Shell Calcium-Vitamin D3) furosemide 20 mg tablet 20 mg PO BID #60 tabs 11/30/24 Rx hydrocodone 5 mg-acetaminophen 325 1 tablet PO Q6H PRN pain #12 tabs 11/29/24 11/30/24 Rx mg tablet ipratropium 0.5 mg-albuterol 3 mg 3 ml inhalation Q6HR T #90 mL 11/29/24 11/30/24 Rx (2.5 mg base)/3 mL nebulization soln magnesium oxide 400 mg (241.3 mg 400 mg PO QAM #30 tab s 11/29/24 11/30/24 Rx magnesium) tablet metoprolol tartrate 50 mg tablet 50 mg PO BID #60 tabs 11/29/24 11/30/24 Rx sodium chloride 0.65 % nasal spray 1 spray intranasal Q6HR PRN 11/29/24 11/30/24 Rx aerosol (Saline Mist) Congestion #10 mL sodium chloride 1,000 mg soluble 1,000 mg PO BID #60 t abs 11/29/24 11/30/24 Rx tablet vancomycin 125 mg capsule 125 mg PO DAILY 11/29/24 History vancomycin 125 mg capsule 125 mg PO Q48H 11/29/2411/15 History vancomycin 125 mg capsule 125 mg PO Q8HR 11/29/2411/15 History vancomycin 250 mg capsule 125 mg PO Q12HR 11/29/24 History atorvastatin 10 mg tablet (Lipitor) 10 mg PO DAILY 11/30/24 History hydralazine 50 mg tablet 50 mg PO Q8H PRN hypertensio n 11/30/24 11/30/24 History hydralazine 50 mg tablet 50 mg PO QID 11/30/24 History Allergies Allergy/AdvReac Type Severity Reaction Status Date / Time morphine Allergy Itching Verified 11/30/24 21:16 Vital Signs Vital Signs - 24 hr 11/30/24 13:17 11/30/24 15:23 11/30/24 15:24 Pulse Rate 67 73 Respiratory Rate 25 H 19 Blood Pressure 161/58 H 153/57 H Pulse Oximetry 94 93 93 Oxygen Delivery Nasal Cannula Nasal Cannula Oxygen Flow Rate 3 3 Exam Narrative: General: No acute distress HEENT: normocephalic, atraumatic. Mucous membranes moist. EOMI, PERRLA, bilateral sclera anicteric, no conjunctival injection. Neck supple without JVD, lymphadenopathy, or bruit. Respiratory: Extremely diminished shallow breathing Cardiovascular: Regular rate and rhythm, normal S1-S2 upon ascultation. No murmurs, rubs, or clicks. PMI is nondisplaced, capillary refill less than 3 second. Abdomen: Soft, round, no pulsatile masses, nondistended and nontender. No rebound, no guarding. No CVA tenderness, no hepatosplenomegaly. Bowel sounds present to all four quadrants. No high pitch or tinkling sounds, resonant to percussion. Extremities: No cyanosis, clubbing, Pulses are palpable 2/2. Active ROM to all four extremities. 4+ generalized edema Neuro: Alert and orientated x 4. PERRLA. Cranial nerves 2-12 intact without focal deficit. Skin: Warm, dry, and intact, without rash, erythema, or lesion. Psych: pleasant, cooperative, normal speech, normal affect, no hallucinations, no dysarthia Sinus rhythm H&P: Results Labs Labs: Short CBC 11/30/24 Range/Units 14:06 WBC 5.8 (4.5-10.0) K/mm3 Hgb 9.3 L (12.0-15.0) g/dL Hct 28.5 L (37.0-47.0) % Plt Count 237 (150-375) k/mm3 BMP 11/30/24 14:06 Sodium 129 L Potassium 3.0 L Chloride 93 L Carbon Dioxide 31 H BUN 16 Creatinine 0.90 Glucose 131 H Calcium 7.6 L Cardiac Enzymes 11/30/24 Range/Units 14:06 Troponin I < 0.012 (0.000-0.034) ng/mL Liver Function 11/30/24 Range/Units 14:06 Total Bilirubin 0.4 (0.2-1.3) mg/dL AST 785 H (14-36) U/L ALT 667 H (6-35) U/L Alkaline Phosphatase 96 (38-126) U/L Albumin 2.8 L (3.5-5.1) g/dL Assessment and Plan Assessment and plan (1) Elevated liver enzymes: Code(s): R74.8 - Abnormal levels of other serum enzymes Status: Acute Assessment and Plan: CT liver is normal CMP in a.m. (2) Fluid overload: Code(s): E87.70 - Fluid overload, unspecified Status: Acute Assessment and Plan: Aggressive diuresis Daily weights Fluid restriction (3) Pleural effusion: Code(s): J90 - Pleural effusion, not elsewhere classified Status: Acute Assessment and Plan: Aggressive diuresis Hold Lasix Thoracentesis Pulmonology consult (4) Diastolic dysfunction: Code(s): I51.89 - Other ill-defined heart diseases Status: Acute Assessment and Plan: Echocardiogram from 11/07/2024 shows EF above 70% Hold home Lasix Aggressively diuresing (5) Pancolitis: Code(s): K52.9 - Noninfective gastroenteritis and colitis, unspecified Status: Acute Assessment and Plan: Patient had a positive C diff test on 11/09/2024 (6) Respiratory failure with hypoxia: Code(s): J96.91 - Respiratory failure, unspecified with hypoxia Status: Acute Assessment and Plan: Wean oxygen as able Likely due to large pleural effusions (7) Clostridium difficile colitis: Code(s): A04.72 - Enterocolitis due to Clostridium difficile, not specified as recurrent Status: Acute Assessment and Plan: Vancomycin taper per ID discharge recommendations (8) A-fib: Code(s): I48.91 - Unspecified atrial fibrillation Status: Acute Assessment and Plan: Holding Eliquis for thoracentesis Continue metoprolol (9) Hyponatremia: Code(s): E87.1 - Hypo-osmolality and hyponatremia Status: Acute Assessment and Plan: Aggressively diuresing patient Salt tabs increased Regular diet BMP in the morning (10) Bladder distension: Code(s): N32.89 - Other specified disorders of bladder Status: Acute Assessment and Plan: Hydronephrosis and distended bladder on CT Bladder scan if over [address] place Holland catheter while aggressively diuresing (11) Hypertension: Code(s): I10 - Essential (primary) hypertension Status: Chronic Assessment and Plan: Holding antihypertensives due to aggressive diuresis (12) Anxiety: Code(s): F41.9 - Anxiety disorder, unspecified Status: Acute Assessment and Plan: Continue Xanax (13) Hyperlipidemia: Qualifiers: Hyperlipidemia type: unspecified Qualified Code(s): E78.5 - Hyperlipidemia, unspecified Code(s): E78.5 - Hyperlipidemia, unspecified Status: Acute Assessment and Plan: Continue Lipitor Quality VTE Prophylaxis VTE prophylaxis: mechanical ordered If No VTE Prophylaxis Answer both mechanical and pharmacologic: Reason no pharmacologic proph: medical contraindication Hospitalist MIPS Advance Care Plan I have confirmed that the patient's Advanced Care Plan is present, code status is documented, or surrogate decision maker is listed in patient medical record.: Yes Medication Reconciliation I have utilized all available resources to obtain, update and review the patients current medications (includes all prescriptions, OTC, herbals, cannabis, and nutritional supplements).: Yes
--- OUTSIDE RECORDS SUMMARY | 2024-11-30 16:46 | XMS_ITS | Encounter Summary ---
Author Organization [facility] Healthcare Address [address] [place] [id number] Care Team Providers Care Silviculturist Name Role Phone Yaniv Elmore MD Primary Care Provider + [phone] Encounter Details Date Type Department Care Team (Late st Contact Info) Description 11/02/2024 Results Follow-Up [facility] Convenient Care at [address] [address] Avelina Pinto BROADCAST TRAFFIC COORDINATOR [address] [place] [address] [address] [place] [address] Urine culture Urine, clean voided Social History Tobacco Use Types Packs/Day Years Used Date Smoking Tobacco: Former Smokeless Tobacco: Never Comments Unknown Sex and Gender Information Value Date Recorded Sex Assigned at Not on file Legal Sex Female 2:45 PM CDT Gender Identity Not on file Sexual Orientation Not on file documented as of this encounter Miscellaneous Notes * Result Encounter Note - Elsa Swartz MA - 11/07/2024 1:41 PM CDT Left voicemail stating results are available on [employer]. Left return number to call back with any further concerns. * Result Encounter Note - Kira Milian MA - 11/06/2024 7:28 PM CDT Called patient and left a voicemail for them to return our call to receive their results. documented in this encounter Plan of Treatment Not on file documented as of this encounter Visit Diagnoses Not on filedocumented in this encounter Care Teams Silviculturist Relationship Specialty Start Date End Date Yaniv Elmore MD [address] [place], [place] [id number] PCP - General Family Practice 03/28/24 documented as of this encounter
--- OUTSIDE RECORDS SUMMARY | 2024-11-30 16:46 | XMS_ITS | Clinical Summary ---
Author Organization [facility] [place] [address] Address [address] [place] [address] Care Team Providers Care Chair Mender Name Role Phone Yaniv Elmore MD Primary Care Provider [phone] Allergies Active Allergy Reactions Criticality Noted Date [...] Encounters Date Type Department Care Team Description 11/17/2024 Orders Only [facility] Cardiology [address] [place] [address] Cale Romano MD 11/09/2024 Orders Only [facility] Cardiology [address] [place] [address] [address] [place] [address] Beverly Claudio MD 11/08/2024 Orders Only [facility] Cardiology [address] [place] [address] [address] [place] [phone] Beverly Claudio MD 11/07/2024 Orders Only [facility] Cardiology [address] [place] [address] [address] [place] [address] Cale Romano MD 11/02/2024 Results Follow-Up [facility] Convenient Care at [address] [address] Avelina Pinto NP Urine culture Urine, clean voided 11/01/2024 9:06 AM CDT - 11/01/2024 11:59 PM CDT Hospital Encounter [address] [address] Acute left lower quadrant pain Discharge Disposition: Discharge to home or self care 11/01/2024 9:00 AM CDT Office Visit [facility] at [address] [address] Avelina Pinto, CARLOS Acute left lower quadrant pain (Primary Dx) 10/03/2024 10:15 AM CDT Office Visit [facility] Cardiology at [address] [place] [address] Cale Romano MD Primary hypertension (Primary Dx) [...] Date/Time Associated Diagnosis Comments CARDIOLOGY DOCUMENT SCAN Routine 11/15/2024 3:22 PM CDT CARDIOLOGY DOCUMENT SCAN Routine 11/08/2024 2:03 PM CDT CARDIOLOGY DOCUMENT SCAN Routine 11/07/2024 11:05 AM CDT CARDIOLOGY DOCUMENT SCAN Routine 11/07/2024 11:03 AM CDT CARDIOLOGY DOCUMENT SCAN Routine 11/05/2024 10:01 AM CDT URINE CULTURE Routine 11/01/2024 10:30 AM CDT Acute left lower quadrant pain POCT URINALYSIS DIPSTICK Routine 11/01/2024 9:58 AM CDT Acute left lower quadrant pain from Last 3 Months Results * Cardiology Document Scan (11/15/2024 3:22 PM CDT) Anatomical Region Laterality Modality Other Cale Romano MD CV CARDIAC SERVICES PROC EDURES Final Result * Cardiology Document Scan (11/08/2024 2:03 PM CDT) Anatomical Region Laterality Modality Other Result [facility] Beverly Claudio MD CV CARDIAC SERVICES PROCEDU RES Final Result * Cardiology Document Scan (11/07/2024 11:05 AM CDT) Anatomical Region Laterality Modality Other Result [facility] Beverly Claudio MD CV CARDIAC SERVICES PROCEDU RES Final Result * Cardiology Document Scan (11/07/2024 11:03 AM CDT) Anatomical Region Laterality Modality Other Result [facility] Beverly Claudio MD CV CARDIAC SERVICES PROCEDU RES Final Result * Cardiology Document Scan (11/05/2024 10:01 AM CDT) Anatomical Region Laterality Modality Other Cale Romano MD CV CARDIAC SERVICES PROC EDURES Final Result * Urine culture Urine, clean voided (11/01/2024 10:30 AM CDT) Report Final Report: Less than 100,000 colonies/mL (clinically insignificant growth based on current clinical standards) Comment:Testing performed by : [facility], [address] [facility], [place]., [address] Organism (CLINICALLY INSIGNIFICANT GROWTH RAMSEY PHELPS Urine, clean voided 11/01/2024 10:30 AM CDT 11/01/2024 4:21 PM CDT Narrative RAMSEY PHELPS - 11/02/2024 5:20 PM CDT Testing performed by [facility] Microbiology Laboratory ([phone]) Avelina Pinto NP LAB MICROBIOLOGY - GENERAL ORDERABLES Final Result RAMSEY PHELPS [address] [place] [address] * (ABNORMAL) POCT urinalysis dipstick (11/01/2024 9:58 AM CDT) Color, Urine, POC Yellow Clarity, ur, POC Clear Clear Glucose, ur, POC Negative Negative Bilirubin, ur, POC Negative Negative Ketones, ur, POC Negative Negative Specific [place], POC 1.020 1.003 - 1.030 Blood, ur, POC Negative Negative pH, ur, POC 5.5 5.0 - 8.0 Protein, ur, POC 30.(A) Negative Urobilinogen, urine, POC 0.2 0.2 - 1.0 mg/dL Nitrite, ur, POC Negative Negative Leukocytes, ur, POC Negative Negative Lot Number [id number] Urine 11/01/2024 9:58 AM CDT Avelina Pinto NP POINT OF CARE TEST ORDERAB LES Final Result from Last 3 Months Insurance MEDICARE [facility] Address: [address] [address] [facility] MEDICARE MEDICARE [facility] [facility] [place] Care Teams Chair Mender Relationship Specialty Start Date End Date Yaniv Elmore MD [address] [place], [place] [id number] PCP - General Family Practice 03/28/24
[2024-11-30] MEDS: POTASSIUM CHLORIDE 20 MEQ ER TABLET 40 MEQ PO ×2 (17:38→23:27)
[2024-11-30] MEDS: ALBUMIN HUMAN 25% 25 GM/100 ML 100 ML IVPB (18:57)
--- NOTE | 2024-11-30 21:01 | ADMGEN ---
This patient, Berenice Alex, was admitted to Medical Room 347-. Patient/family oriented to hospital policies and general routines including ID bracelet, bed and alarms, visiting hours, pain management, procedures, bathroom and other care routines, personal items, smoking policy, room service/diet, and visiting hours. Information on how to activate the Rapid Response Team has been discussed. Patient/Family are encouraged to report perceived risks to care and to ask questions if they do not understand what they are told or what they should do.
[2024-11-30] MEDS: CALCIUM GLUC 1,000 MG/NS 50 ML 1,000 MG/50 ML BAG 100 MG IVPB (23:21)
[2024-11-30] MEDS: cycloSPORINE 0.4 ML OPHTH SOLUTION 1 DROP EACH EYE (23:22)
[2024-11-30] MEDS: ALPRAZolam (*CRX) 0.25 MG TABLET PO (23:22)
[2024-12-01] VITALS (14 sets, daily range): BP systolic 126–132; BP diastolic 45–53; PULSE 63–85; RESP 16–20; TEMP 36.1–36.3; O2SAT 94–97
[2024-12-01] MEDS: TAMSULOSIN HCL 0.4 MG CAPSULE PO ×2 (00:05→08:51)
[2024-12-01] MEDS: VANCOMYCIN HCL 125 MG ORAL CAPSULE PO ×3 (05:42→20:29)
[2024-12-01 06:33] LABS: Hematocrit 25.6 % (37.0-47.0); Hemoglobin 8.1 g/dL (12.0-15.0); Immature Granulocyte Percent A 0.7 % (0-0.5); Lymphocytes Absolute Auto 1.19 K/mm3 (0.9-3.2); Mean Corpuscular HGB Conc 31.6 g/dl (32-36); Mean Corpuscular Hemoglobin 30.0 pg (26-34); Mean Corpuscular Volume 94.8 fl (80-100); Nucleated Red Blood Cells Absolute Auto 0.000 K/mm3 (0.0-0.012); Nucleated Red Blood Cells Perc 0.0 % (0.0-0.2); Platelet Count Result 219 k/mm3 (150-375); Red Blood Count 2.70 M/mm3 (4.2-5.4); White Blood Count 6.0 K/mm3 (4.5-10.0)
[2024-12-01 06:47] LABS: INR 1.4; Prothrombin Time 17.1 Seconds (11.1-14.7)
[2024-12-01 06:48] LABS: Partial Thromboplastin Time 30.6 Seconds (22.3-36.8)
[2024-12-01 06:55] LABS: Alanine Aminotransferase 557 U/L (6-35); Albumin Level 2.9 g/dL (3.5-5.1); Alkaline Phosphatase 96 U/L (38-126); Anion Gap 4 mmol/L (4-12); Aspartate Amino Transferase 563 U/L (14-36); Bilirubin,Total 0.6 mg/dL (0.2-1.3); Blood Urea Nitrogen 15 mg/dL (7-17); Calcium 8.2 mg/dL (8.4-10.2); Carbon Dioxide 32 mmol/L (22-30); Chloride 94 mmol/L (98-107); Estimated CRCL calculation 40 ml/min; Estimated Glomerular Filt Rate 55; Glucose 105 mg/dL (65-110); Potassium 3.9 mmol/L (3.4-5.0); Sodium 130 mmol/L (137-145); Total Protein 5.2 g/dL (6.3-8.2)
[2024-12-01] MEDS: IPRATROPIUM 0.5 MG/ALBUTEROL SULFATE 2.5 MG (BASE) AMPUL.NEB 3 ML INHALATION ×3 (07:39→20:19)
--- NOTE | 2024-12-01 07:57 | P.PNIM_ITS ---
Progress Note: A&P Assessment and Plan (1) Respiratory failure with hypoxia: Code(s): J96.91 - Respiratory failure, unspecified with hypoxia Status: Acute Assessment and Plan: - Oxygen supplementation: 3L NC, wean as tolerated - Suspected cause: likely related to ongoing pleural effusions - CT chest/abdomen/pelvis showed no significant change in a moderate-sized bilateral pleural effusions with complete collapse of the right lower lobe, partial collapse of the left lower lobe and additional mild dependent atelectasis in the remaining lobes of both lungs. (2) Elevated liver enzymes: Code(s): R74.8 - Abnormal levels of other serum enzymes Status: Acute Assessment and Plan: LFTs appear to have been uptrending since 11/25, peaked with an AST 902 and ALT 608 on 11/30 and no downtrending on am labs Tot bili and alk phos remain WNL Hepatitis panel pending CT chest/abdomen/pelvis showed a normal liver but a small amount of scattered ascites with no organized abscess or free intraperitoneal gas GI consulted * Clinical presentation likely related to hypoxic/ischemic injury, especially following episodes of acute respiratory failure or fluid overload in combination with underlying cirrhosis * Check addition Hepatitis panel and autoimmune hepatitis (3) Pleural effusion: Code(s): J90 - Pleural effusion, not elsewhere classified Status: Acute Assessment and Plan: Does not appear infectious in nature. pH > 7.5 and no organisms seen on gram stain. WBC WNL and afebrile. Prior effusion noninfectious on 11/08. - BNP: 837 - CT chest/abdomen/pelvis showed no significant change in a moderate-sized bilateral pleural effusions with complete collapse of the right lower lobe, partial collapse of the left lower lobe and additional mild dependent atelectasis in the remaining lobes of both lungs. - Echo 11/07: Concentric left ventricular hypertrophy with hyperdynamic systolic function and grade I diastolic dysfunction - Thoracentesis on 12/01 with 450 ml clear straw color fluid removed. - Jose hose ordered for bilateral lower ext. edema - Lasix 40 mg IV BID - Monitor vital signs, I&Os, BUN/creatinine, daily weights, neuro status and patient is a fall risk - Monitor serum electrolytes, Keep serum Potassium>4 and serum Magnesium>2 and CBC (4) Pancolitis: Code(s): K52.9 - Noninfective gastroenteritis and colitis, unspecified Status: Acute Assessment and Plan: CT chest/abdomen/pelvis showed uncomplicated colitis vs more likely descending colon diverticulitis Patient had a positive C diff test on 11/09/2024 Evaluated by ID at that time and was discharged on a vancomycin taper which has been continued on admission Patient denies any abdominal pain, nausea/vomiting and diarrhea. Per GI plan to discuss outpatient colonoscopy a follow-up visit (5) A-fib: Code(s): I48.91 - Unspecified atrial fibrillation Status: Acute Assessment and Plan: - EKG: Sinus rhythm HR 66 - metoprolol 50 mg BID - currently holding eliquis for laura, resume as appropriate (6) Bladder distension: Code(s): N32.89 - Other specified disorders of bladder Status: Acute Assessment and Plan: Hydronephrosis and distended bladder on CT UA ordered Denies any UTI like symptoms Bladder scan if over 400 place Holland catheter while aggressively diuresing (7) Hypertension: Code(s): I10 - Essential (primary) hypertension Status: Chronic Assessment and Plan: Chronic - holding amlodipine 10 mg daily, hydralazine 50 mg qid, lisinopril 40 mg daily, reusme as appropriate - metoprolol 50 mg bid - lasix 40 mg IV bid - blood pressures reviewed and remain stable, continue to monitor (8) Anemia: Code(s): D64.9 - Anemia, unspecified Status: Acute Assessment and Plan: Iron panel 11/21: total iron 17, TIBC 180, iron saturation 9%, ferritin 162. No signs of active GI bleeding. Repeat Iron panel ordered Per GI, plan to discuss in the office outpatient if further evaluation and need for endoscopic evaluation to rule out GI source of blood loss or malabsorption (9) Anxiety: Code(s): F41.9 - Anxiety disorder, unspecified Status: Acute Assessment and Plan: Continue Xanax prn Time Spent With Patient Time with patient: 25 - 35 minutes Subjective Date/time seen: 12/01/24 07:57 Interval history: 78-year-old female history of hypertension, hyperlipidemia, CHF, afib presents from rehab with abnormal labs of increased liver enzymes. Patient is pleasant lying comfortably in bed. She continues to endorse slight shortness of breath but notes that this significantly better since receiving the thoracentesis. Patient denies any diarrhea and states she has not had a bowel movement 2 days. She continues to tolerate a diet and denies any associated nausea/vomiting or abdominal pain. She has no other complaints denying chest pain, palpitations. Review of Systems Review of Systems: All systems reviewed & are unremarkable except as noted in HPI and below Exam Narrative: AF HR 63 RR 20 SpO2 94 3L NC (baseline from rehab) BP 132/45 General: female in no acute respiratory distress who is nontoxic appearing, lying semi recumbent in bed. HEENT: Normocephalic. Atraumatic. Extraocular movement intact. Sclera clear and anicteric. No facial asymmetry. Chest: Lungs are diminished lung sounds to the upper lobes and coarse to the lower lobes on auscultation bilaterally. Speaking full sentences. CV: Heart was regular rate and rhythm. Abd: Abdomen was soft. Nontender. Nondistended. Positive bowel sounds. Ext: No clubbing, cyanosis. 2+ pitting edema to the lower extremities. DP pulses bilaterally. Neuro: Patient is alert and oriented x4. Speech is clear. Objective Data Vital Signs Vital Signs: Vital Signs - 24 hr 11/30/24 13:17 11/30/24 15:23 11/30/24 15:24 Temperature Pulse Rate 67 73 Respiratory Rate 25 H 19 Blood Pressure 161/58 H 153/57 H Pulse Oximetry 94 93 93 Oxygen Delivery Nasal Cannula Nasal Cannula Oxygen Flow Rate 3 3 11/30/24 17:02 11/30/24 17:32 11/30/24 20:55 Temperature Pulse Rate 73 76 71 Respiratory Rate 27 H 28 H 24 H Blood Pressure 161/63 H 153/61 H 158/72 H Pulse Oximetry 97 96 93 Oxygen Delivery Oxygen Flow Rate 11/30/24 22:00 12/01/24 07:40 12/01/24 07:40 Temperature 97.1 F L Pulse Rate 74 78 78 Respiratory Rate 18 20 20 Blood Pressure 173/58 H Pulse Oximetry 96 95 Oxygen Delivery Nasal Cannula Oxygen Flow Rate 3 12/01/24 07:47 Temperature Pulse Rate 85 Respiratory Rate 20 Blood Pressure Pulse Oximetry Oxygen Delivery Oxygen Flow Rate Intake/Output Intake/Output: Intake & Output 11/28/24 11/29/24 11/30/24 12/01/24 23:59 23:59 23:59 23:59 Intake Total 420 90 Output Total 1650 600 Balance -1230 -510 Meds/Results Medications: Active Medications Generic Name Dose Route Start Last Admin Trade Name Freq PRN Reason Stop Dose Admin Acetaminophen 650 mg 11/30/24 16:31 Acetaminophen 325 Mg Tablet PO Q4H PRN Mild Pain (1-3) or Fever Hydrocodone Bitart/Acetaminophen 1 tab 11/30/24 22:12 Hydrocodone/Acetaminophen (*Crx) 5-325 Mg Tablet PO Q6H PRN Pain 4-6 Albuterol/Ipratropium 3 ml 12/01/24 02:00 12/01/24 07:39 Ipratropium 0.5 Mg/Albuterol Sulfate 2.5 Mg (Base) Ampul.Neb 3 Ml INHALATION 3 ml Q6HRT KEVIN Administration Alprazolam 0.25 mg 11/30/24 22:12 11/30/24 23:22 Alprazolam (*Crx) 0.25 Mg Tablet PO 0.25 mg QHS PRN Administration Anxiety Atorvastatin Calcium 10 mg 12/01/24 09:00 Atorvastatin 10 Mg Tablet PO DAILY KEVIN Calcium Carbonate 500 mg 12/01/24 08:00 Calcium/Vitamin D 500 Mg/5 Mcg (200 I.U.) Tablet PO BIDWM KEVIN Cyclosporine 1 drop 11/30/24 22:15 11/30/24 23:22 Cyclosporine 0.4 Ml Ophth Solution EACH EYE 1 drop Q12HR KEVIN Administration Docusate Sodium 100 mg 11/30/24 16:31 Docusate Sodium 100 Mg Capsule PO BID PRN Constipation Furosemide 40 mg 12/01/24 09:00 Furosemide Inj 40 Mg/4 Ml Vial IV PUSH BID KEVIN Magnesium Oxide 400 mg 12/01/24 09:00 Magnesium Oxide 400 Mg Tablet PO QAM [facility] Metoprolol Tartrate 50 mg 12/01/24 09:00 Metoprolol Tartrate 50 Mg Tab PO Q12HR [facility] Miscellaneous Information 0 each 11/30/24 00:01 Terbinafine Taken For 7 Days One Week Out To The Month When Is Next Dose Due? XX 12/30/24 00:00 CLARIFY [facility] Sodium Chloride 1 spray 11/30/24 22:12 Saline 0.65% Rodrigo Soln 44 Ml Btl NASAL Q6HR PRN Congestion Sodium Chloride 1,500 mg 12/01/24 09:00 Sodium Chloride 500 Mg Tablet PO BID [facility] Tamsulosin HCl 0.4 mg 12/01/24 09:00 Tamsulosin Hcl 0.4 Mg Capsule PO QAM [facility] Terbinafine HCl 250 mg 12/01/24 09:00 Terbinafine Hcl 250 Mg Tablet PO DAILY [facility] Trazodone HCl 50 mg 11/30/24 23:46 12/01/24 00:06 Trazodone Hcl 50 Mg Tablet PO 50 mg HS PRN Administration Insomnia Vancomycin HCl 125 mg 12/13/24 09:00 Vancomycin Hcl 125 Mg Oral Capsule PO 12/19/24 10:00 DAILY KEVIN Vancomycin HCl 125 mg 12/20/24 09:00 Vancomycin Hcl 125 Mg Oral Capsule PO 01/01/25 10:00 Q48H [facility] Vancomycin HCl 125 mg 12/01/24 06:00 12/01/24 05:42 Vancomycin Hcl 125 Mg Oral Capsule PO 12/05/24 23:00 125 mg Q8HR KEVIN Administration Vancomycin HCl 125 mg 12/06/24 09:00 Vancomycin Hcl 125 Mg Oral Capsule PO 12/12/24 22:00 Q12HR [facility] Radiology Results: ITS Impressions Chest X-Ray 11/30/24 15:09 Impression: CHF. Right basilar pneumonia. Imaging of the abdomen suggested. Chest/Abdomen/Pelvis CT 11/30/24 15:30 IMPRESSION: 1. No significant change in a moderate-sized bilateral pleural effusions with complete collapse of the right lower lobe, partial collapse of the left lower lobe and additional mild dependent atelectasis in the remaining lobes of both lungs. 2. Radiographically uncomplicated colitis versus more likely descending colon diverticulitis. 3. Small amount of scattered ascites with no organized abscess or free intraperitoneal gas. 4. No interval change in 3 simple appearing cystic lesions at the body and tail the pancreas measuring up to 1.4 cm. The differential diagnosis includes pseudocyst, intraductal papillary mucinous neoplasm (IPMN), mucinous cystic neoplasm (MCN), and the less common serous cystadenoma and neuroendocrine tumor. Correlate for history of pancreatitis. Recommend 2 year follow-up pre and postcontrast MRI. 5. 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 Labs Labs: Laboratory Results - last 24 hr 11/30/24 12/01/24 14:06 05:39 WBC 5.8 6.0 RBC 3.10 L 2.70 L Hgb 9.3 L 8.1 L Hct 28.5 L 25.6 L MCV 91.9 94.8 MCH 30.0 30.0 MCHC 32.6 31.6 L RDW 14.9 H 15.1 H Plt Count 237 219 MPV 9.7 9.4 Immature Gran % (Auto) 1.0 H 0.7 H Neut % (Auto) 61.9 68.7 Lymph % (Auto) 25.2 19.8 Greene % (Auto) 9.0 H 7.3 Eos % (Auto) 1.7 2.3 Baso % (Auto) 1.2 1.2 Lymph # (Auto) 1.45 1.19 Greene # (Auto) 0.5 0.4 Eos # (Auto) 0.1 0.1 Baso # (Auto) 0.1 0.1 Abs Immat Gran (auto) 0.06 H 0.04 H Absolute Neuts (auto) 3.6 4.1 Absolute Nucleated RBC 0.000 0.000 Band Neutrophils % Not Reportable Nucleated RBC % 0.0 0.0 Atypical Lymphocytes Present Platelet Estimate Adequate Ovalocytes Occasional Schistocytes None seen PT 17.6 H 17.1 H INR 1.5 1.4 APTT 31.7 30.6 Sodium 129 L 130 L Potassium 3.0 L 3.9 Chloride 93 L 94 L Carbon Dioxide 31 H 32 H Anion Gap 5 4 BUN 16 15 Creatinine 0.90 0.99 Estim Creat Clear Calc 46 40 Estimated GFR > 60 55 L Glucose 131 H 105 Calcium 7.6 L 8.2 L Total Bilirubin 0.4 0.6 AST 785 H 563 H ALT 667 H 557 H Alkaline Phosphatase 96 96 Troponin I < 0.012 NT-Pro-B Natriuret Pep 837 H Total Protein 5.3 L 5.2 L Albumin 2.8 L 2.9 L Lipase 46 Acetaminophen < 10 L
--- NOTE | 2024-12-01 08:11 | WPDGICN ---
Assessment and Plan Assessment and plan (1) Pancreatic cyst: Code(s): K86.2 - Cyst of pancreas Status: Acute (2) Elevated liver enzymes: Code(s): R74.8 - Abnormal levels of other serum enzymes Status: Acute (3) Cirrhosis: Code(s): K74.60 - Unspecified cirrhosis of liver Status: Acute (4) Hyponatremia: Code(s): E87.1 - Hypo-osmolality and hyponatremia Status: Acute (5) Anemia of chronic disease: Code(s): D63.8 - Anemia in other chronic diseases classified elsewhere Status: Acute (6) Iron deficiency: Code(s): E61.1 - Iron deficiency Status: Acute (7) Clostridium difficile colitis: Code(s): A04.72 - Enterocolitis due to Clostridium difficile, not specified as recurrent Status: Acute Plan 1. Pancreatic cyst: CT yesterday: No interval change in 3 simple appearing cystic lesions at the body and tail the pancreas measuring up to 1.4 cm. The differential diagnosis includes pseudocyst, intraductal papillary mucinous neoplasm (IPMN), mucinous cystic neoplasm (MCN), and the less common serous cystadenoma and neuroendocrine tumor. Correlate for history of pancreatitis. Recommend 2 year follow-up pre and postcontrast MRI. CT on 11/05 showed moderate atrophy of the pancreas. Cystic pancreatic lesion of the body 1.5 x 1.6 cm incompletely evaluated. Lipase this admission is normal at 46. No known prior Hx of pancreatitis. Patient to follow up with GI outpatient for further evaluation and monitoring. No need for emergent evaluation, MRI and possible need for EUS can be determined during outpatient follow up visit 2. Elevated liver transaminase/cirrhosis/hyponatremia: MELD NA 18. No prior history of liver decompensation. Patient admitted for acute respiratory failure with hypoxia, elevated liver enzymes, pleural effusions and AFib. Currently on aggressive diuresis and pending thoracentesis. CT yesterday: Small amount of scattered ascites with no organized abscess or free intraperitoneal gas. Patient was discharged to [facility] 11/29 after a nearly month long admission for fluid overload and C-Diff. Labs done at rehab showed that the patients liver transaminase significantly increased overnight showing AST 565-->902 and ALT 325-->608. Total bilirubin and Alk Phos have remained normal. Since admission transaminase have trended down and today, AST 563 and ALT 557. Acetaminophen level <10. No recent medications that would be concerning for DILI. Clinical presentation likely related to hypoxic/ischemic injury, especially following episodes of acute respiratory failure or fluid overload in combination with underlying cirrhosis Patient with chronic hyponatremia etiology likely multifactorial but cirrhosis could be a contributing factor Hep B was negative 11/07, will check addition Hepatitis panel and autoimmune hepatitis 3. Anemia of chronic disease with iron deficiency: Labs today show HGB 8, HCT 26, MCV 95, platelets 219 INR 1.4. Iron panel performed 11/21/2024 showed total iron 17, TIBC 180, iron saturation 9%, ferritin 162. No signs of active GI bleeding. She has not had a colonoscopy or EGD in the past 15-20 years. Recheck iron panel and if still deficient primary care team to correct Patient advised to follow-up with me in the office outpatient and we can further evaluate the possible need for endoscopic evaluation to rule out GI source of blood loss or malabsorption 4. Colitis/C-Diff: Patient diagnosed with diverticulitis prior to her last admission and had completed a 5 day course of Augmentin. She states that her diarrhea initially started 1 day after receiving her flu shot. CT 11/30/2024 showed radiographically uncomplicated colitis versus more likely descending colon diverticulitis. CT 11/05/2024 showed diffuse colitis detailed above, correlate for underlying pseudomembranous colitis. No perforation or abscess. Infectious disease was following the patient during her last admission and per last note: Patient was on high dose oral Vanco/Flagyl and transitioned to Dificid x 10 days if covered--> start PO Vanco taper. Patient denies any diarrhea x2 days and states she has actually had no bowel movement in 2 days due to decreased p.o. intake. According to CT colitis has improved since prior imaging, continue vancomycin taper If diarrhea returns will check C-Diff toxin As mentioned above will discuss outpatient colonoscopy at follow-up visit Thank you very much for allowing me to share in the care of this very nice patient. This report may have been done utilizing a voice recognition system. Attempts have been made to correct errors. However, there may be uncorrected grammatical, spelling, and recognition errors present. GI Consult Note Consult date/time: 12/01/24 08:11 Reason for consult: pancreatic cyst HPI: Berenice Alex is a 78 year old female with past medical surgical history of diastolic dysfunction, history of diverticulitis, anxiety, HLD, HTN, and recent diagnosis of C diff. [facility] after discharge for elevated liver transaminase. GI has been consulted for pancreatic cyst. Patient was seen with her niece Brooklyn who is also her POA and her Yasir at her bedside throughout the entire visit. Patient was hospitalized at [facility] November 01-November 29 for fluid overload and C diff. patient was discharged to [facility] on 11/29 and presented back to the ER on 11/30 for abnormal labs. Patient states that prior to her last admission she had received her flu shot on a Wednesday and then started having diarrhea the following day. When seen in the ER she was diagnosed with diverticulitis and started on a course of antibiotics. During her last admission she was noted to have C diff and was being followed by infectious disease. Patient admits to unexplained weight loss that occurred during prolonged hospitalization, being NPO and having diarrhea. Denies any unexplained weight loss prior to this. She states that over the past 2 days she has had no diarrhea and has actually had no bowel movement but has had minimal p.o. intake. She denies any abdominal pain, nausea, vomiting, bloating, odynophagia, dysphagia, reflux, regurgitation, early satiety or appetite loss. Denies constipation, hematochezia, or melena. Prior to admission she was on no NSAIDs, aspirin, or anticoagulants. She is currently on Eliquis. Patient has a history of hysterectomy and tubal ligation but denies any other abdominal surgeries. Family history negative for CRC or IBD. She is a nondrinker nonsmoker and denies any marijuana use. ENDOSCOPY HISTORY: EGD: Patient has never had an EGD COLONOSCOPY: Per patient last colonoscopy 15-20 years ago she states was normal LABS AND STOOL STUDIES: Labs 12/01/2024: Sodium 130, potassium 3.9, BUN 15, creatinine 0.99, GFR 55, calcium 8.2 WBC 6, Hgb 8, Hct 26, MCV 95, platelets 219, INR 1.4 Total bilirubin 0.6, AST 563, ALT 557, Alkaline Phos 96, albumin 2.9 Labs 11/30/2024: Sodium 127, potassium 3.2, BUN 16, creatinine 0.85, GFR >60, calcium 7.5, magnesium 1.4 WBC 6, Hgb 9, Hct 27, MCV 94, platelets 218, INR 1.5 Total bilirubin 0.4, AST 902, ALT 608, Alkaline Phos 90, albumin 2.5, lipase 46 Acetaminophen <10 IMAGING: CT chest/abd/pelvis w/contrast 11/30/2024: IMPRESSION: 1. No significant change in a moderate-sized bilateral pleural effusions with complete collapse of the right lower lobe, partial collapse of the left lower lobe and additional mild dependent atelectasis in the remaining lobes of both lungs. 2. Radiographically uncomplicated colitis versus more likely descending colon diverticulitis. 3. Small amount of scattered ascites with no organized abscess or free intraperitoneal gas. 4. No interval change in 3 simple appearing cystic lesions at the body and tail the pancreas measuring up to 1.4 cm. The differential diagnosis includes pseudocyst, intraductal papillary mucinous neoplasm (IPMN), mucinous cystic neoplasm (MCN), and the less common serous cystadenoma and neuroendocrine tumor. Correlate for history of pancreatitis. Recommend 2 year follow-up pre and postcontrast MRI. 5. 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 CT chest/abd/pelvis w/o contrast 11/05/2024: LIVER: Mild cirrhotic disease of the liver suspected. SPLEEN: Mild atrophy of the spleen PANCREAS: Moderate atrophy of the pancreas. Cystic pancreatic lesion of the body 1.5 x 1.6 cm incompletely evaluated, contrast-enhanced MRI recommended. GALLBLADDER/BILIARY: Mild distention of the gallbladder. STOMACH AND ESOPHAGUS: The stomach is decompressed. BOWEL/MESENTERY: Multiple fluid-filled loops of large bowel which appears thickened, absence of contrast limits evaluation. There is pericolonic stranding noted but no gross perforation or abscess, no pneumatosis. Appendix appears minimally thickened but there is no periappendiceal inflammation. Stranding throughout the visualized remaining mesentery. Nonspecific fluid-filled loops of small bowel, no dilated small bowel loops. RETROPERITONEUM: Unremarkable IMPRESSION: 1. Diffuse colitis detailed above, correlate for underlying pseudomembranous colitis. No perforation or abscess. Follow-up recommended to assess. 2. CHF with superimposed probable bronchopneumonia. 3. Incidental findings above. Contrast-enhanced MRI recommended CT abd/pelvis 11/04/2024: IMPRESSION: 1. No evidence of bowel perforation. 2. Persistent severe pancolitis. 3. New small scattered ascites. 4. New small pleural effusions and significant bibasilar atelectasis. Review of Systems Constitutional: Constitutional: Reports as per HPI ENT: Reports as per HPI Cardiovascular: Cardiovascular: Reports as per HPI, Denies chest pain and Denies dyspnea Respiratory: Respiratory: Denies cough and Denies dyspnea Gastrointestinal: Gastrointestinal: Reports as per HPI Musculoskeletal: Musculoskeletal: Reports as per HPI Integumentary/Breasts: Skin/Breast: Reports as per HPI Psychiatric: Psychiatric: Reports as per HPI Endocrine: Endocrine: Reports no additional endocrine complaints Hematologic/Lymphatic: Hematologic/Lymphatic: Reports no additional hematologic/lymphatic complaints [facility] Past Medical History Medical History (Updated 12/01/24 @ 13:04 by Rowena Olvera APRN) Diastolic dysfunction Pleural effusion Anemia Diverticulitis large intestine Anxiety Hyperlipidemia BMI 25.0-25.9,adult Hypertension Family History Family History Father Hypertension Cerebrovascular accident Mother Heart disease Sibling Diabetes mellitus Sibling Diabetes mellitus Social History Social History Smoking status: Never smoker Second hand tobacco smoke exposure: No Alcohol intake: never Substance use: never Substance use type: does not use Lack of Transportation: No Lack of Food: Never True Current Housing: I Have Housing Concerned About Future Housing: No Difficulty Paying Gas/Electric Bills: No Difficulty Paying for Meds: No Currently Unemployed: No Education: High School Diploma/GED Difficulty w/ Childcare or Family Care: No Living arrangements: with family 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 Gender identity (if verbalized by the patient): Female Spiritual care concerns: No Meds Home Medications and Allergies Home Medications ?Medication ?Instructions ?Recorded ?Confirmed ?Type cyclosporine 0.05 % eye drops 1 drp EACH EYE Q12H #5.5 mL 03/18/21 11/30/24 Rx (Restasis MultiDose) terbinafine HCl 250 mg tablet 250 mg PO DAILY 09/03/23 11/30/24 History amlodipine 10 mg tablet 10 mg PO DAILY #90 tabs 05/16/24 11/30/24 Rx spironolactone 50 mg tablet See Rx Instructions .Route 08/07/24 11/30/24 Rx .COMPLEX #90 tabs lisinopril 40 mg tablet 40 mg PO DAILY #90 tabs 10/01/24 11/30/24 Rx ondansetron 4 mg disintegrating 4 mg PO Q6H PRN nausea and 11/01/24 11/30/24 Rx tablet vomiting #10 tabs acetaminophen 325 mg tablet 650 mg (2 x 325 mg) PO Q4H PRN 11/29/24 11/30/24 Rx Headache #30 tabs alprazolam 0.25 mg tablet 0.25 mg PO QHS PRN anxiety #10 tabs 11/29/24 11/30/24 Rx apixaban 2.5 mg tablet (Eliquis) 2.5 mg PO Q12HR #60 tabs 11/29/24 11/30/24 Rx calcium 500 mg (as 1 tablet PO BIDWM #60 tabs 11/29/24 11/30/24 Rx carbonate)-vitamin D3 5 mcg (200 unit) tablet (Oyster Shell Calcium-Vitamin D3) furosemide 20 mg tablet 20 mg PO BID #60 tabs 11/29/24 11/30/24 Rx hydrocodone 5 mg-acetaminophen 325 1 tablet PO Q6H PRN pain #12 tabs 11/29/24 11/30/24 Rx mg tablet ipratropium 0.5 mg-albuterol 3 mg 3 ml inhalation Q6HRT #90 mL 11/29/24 11/30/24 Rx (2.5 mg base)/3 mL nebulization soln magnesium oxide 400 mg (241.3 mg 400 mg PO QAM #30 tabs 11/29/24 11/30/24 Rx magnesium) tablet metoprolol tartrate 50 mg tablet 50 mg PO BID #60 tabs 11/29/24 11/30/24 Rx sodium chloride 0.65 % nasal spray 1 spray intranasal Q6HR PRN 11/29/24 11/30/24 Rx aerosol (Saline Mist) Congestion #10 mL sodium chloride 1,000 mg soluble 1,000 mg PO BID #60 tabs 11/29/24 11/30/24 Rx tablet vancomycin 125 mg capsule 125 mg PO DAILY 11/29/24 11/30/24 History vancomycin 125 mg capsule 125 mg PO Q48H 11/29/24 11/30/24 History vancomycin 125 mg capsule 125 mg PO Q8HR 11/29/24 11/30/24 History vancomycin 250 mg capsule 125 mg PO Q12HR 11/29/24 11/30/24 History simvastatin 20 mg tablet 20 mg PO DAILY 12/01/24 12/01/24 History trazodone 50 mg tablet 50 mg PO HS 12/01/24 12/01/24 History Allergies Allergy/AdvReac Type Severity Reaction Status Date / Time morphine Allergy Itching Verified 11/30/24 21:16 Vital Signs Vital Signs - 24 hr 11/30/24 13:17 11/30/24 15:23 11/30/24 15:24 Temperature Pulse Rate 67 73 Respiratory Rate 25 H 19 Blood Pressure 161/58 H 153/57 H Pulse Oximetry 94 93 93 Oxygen Delivery Nasal Cannula Nasal Cannula Oxygen Flow Rate 3 3 11/30/24 17:02 11/30/24 17:32 11/30/24 20:55 Temperature Pulse Rate 73 76 71 Respiratory Rate 27 H 28 H 24 H Blood Pressure 161/63 H 153/61 H 158/72 H Pulse Oximetry 97 96 93 Oxygen Delivery Oxygen Flow Rate 11/30/24 22:00 12/01/24 07:40 12/01/24 07:40 Temperature 97.1 F L Pulse Rate 74 78 78 Respiratory Rate 18 20 20 Blood Pressure 173/58 H Pulse Oximetry 96 95 Oxygen Delivery Nasal Cannula Oxygen Flow Rate 3 12/01/24 07:47 Temperature Pulse Rate 85 Respiratory Rate 20 Blood Pressure Pulse Oximetry Oxygen Delivery Oxygen Flow Rate Exam Const: General: cooperative, healthy appearing, comfortable, no acute distress and well developed Orientation/consciousness: oriented to person, oriented to place, oriented to time and patient oriented x3 HENMT: Head: normal to inspection, normocephalic and atraumatic Mouth: Yes Normal oral and palatal mucosa present and Yes moist mucous membranes Eyes: General: appearance normal, both eyes and all related structures Conjunctivae: conjunctivae normal Sclera: sclerae normal Pupils: Equal, round and reactive pupils present Neck: Neck: normal visual inspection Chest: Chest palpation & inspection: normal inspection of the chest Resp: Effort & Inspection: normal respiratory effort and able to speak in complete sentences Auscultation: diminished lung sounds Cardio: Jugular venous distension: no JVD Rate: regular rate Rhythm: regular rhythm Heart sounds: S1 normal heart sound present and S2 normal heart sound present GI: Inspection: normal to inspection GI Palp: Yes Soft to palpation, No Tenderness to palpation present (GI), No Guarding due to palpation present (GI) and Yes No hepatosplenomegaly present Auscultation: normal bowel sounds Rectal Exam: deferred Skin: General skin exam: normal color and no rashes or lesions noted Neuro: General: oriented to person, oriented to place, oriented to time and patient oriented x3 Cranial nerves: Yes Equal, round and reactive pupils present Speech: normal speech Extrem: General: normal to inspection and no clubbing, cyanosis or edema Psych: Appearance: grossly normal and well kempt Affect: normal affect Results Labs 12/01/24 05:39 12/01/24 05:39 Labs: Short CBC 11/30/24 12/01/24 Range/Units 14:06 05:39 WBC 5.8 6.0 (4.5-10.0) K/mm3 Hgb 9.3 L 8.1 L (12.0-15.0) g/dL Hct 28.5 L 25.6 L (37.0-47.0) % Plt Count 237 219 (150-375) k/mm3 [facility] 11/30/24 12/01/24 14:06 05:39 Sodium 129 L 130 L Potassium 3.0 L 3.9 Chloride 93 L 94 L Carbon Dioxide 31 H 32 H BUN 16 15 Creatinine 0.90 0.99 Glucose 131 H 105 Calcium 7.6 L 8.2 L Cardiac Enzymes 11/30/24 Range/Units 14:06 Troponin I < 0.012 (0.000-0.034) ng/mL Liver Function 11/30/24 12/01/24 Range/Units 14:06 05:39 Total Bilirubin 0.4 0.6 (0.2-1.3) mg/dL AST 785 H 563 H (14-36) U/L ALT 667 H 557 H (6-35) U/L Alkaline Phosphatase 96 96 (38-126) U/L Albumin 2.8 L 2.9 L (3.5-5.1) g/dL
[2024-12-01] MEDS: METOPROLOL TARTRATE 50 MG TAB PO ×2 (08:51→20:29)
[2024-12-01] MEDS: ATORVASTATIN 10 MG TABLET PO (08:51)
[2024-12-01] MEDS: MAGNESIUM OXIDE 400 MG TABLET PO (08:51)
[2024-12-01] MEDS: cycloSPORINE 0.4 ML OPHTH SOLUTION 1 DROP EACH EYE ×2 (08:52→20:29)
[2024-12-01] MEDS: SODIUM CHLORIDE 500 MG TABLET 1500 MG PO ×2 (08:52→16:41)
[2024-12-01] MEDS: FUROSEMIDE INJ 40 MG/4 ML VIAL IV PUSH ×2 (08:52→16:41)
[2024-12-01] MEDS: CALCIUM/VITAMIN D 500 MG/5 MCG (200 I.U.) TABLET PO ×2 (08:52→16:41)
[2024-12-01 09:50] LABS: Procalcitonin 0.4 ng/mL
--- NOTE | 2024-12-01 09:50 | CY_PTH ---
PATIENT: Berenice Alex LOC: [id number] U#:[id number] AGE/SX: 78/F ROOM: 347 RE12/01/[address]: Brandan Johnson MD : 1945 BED: 01 DIS: 12/12/2024 SPEC #: [id number] RECD: 12/01/24 13:37 STATUS: ALLYSSA REQ #: [id number] HARITHA: 12/01/24 09:[address]: Cale Liu DEPT: [facility] Cytology RECD BY: Kylee Moctezuma ENTERED: 12/01/24 13:38 SP TYPE: Cytology OTHR DR: MD Isabell Bowman MD Izabella L. Timmons, PA-C Francisco M. Tagle, MD Tissues: A - Pleural Fluid Procedures: Hematoxylin and Eosin Stain Cell Block Cytopathology Cytospin
[2024-12-01 10:04] LABS: Hepatitis B Surface Antigen Negative (Negative)
[2024-12-01 10:10] LABS: HAV RESULT Negative (Negative); Hepatitis B Core IgM Result Negative (Negative)
[2024-12-01 12:12] LABS: Appearance Pleural Fluid Hazy (Clear); Color Pleural Fluid Yellow (Colorless); Lymphocytes Pleural Fluid 36 %; Monocytes Pleural Fluid 3 %; Nucleated Cell Pleural Fluid 1644 /uL (0-1000)
[2024-12-01 12:13] LABS: Macrophages Pleural Fluid 57 %
--- NOTE | 2024-12-01 12:18 | PC.NURSE ---
Hospitalist, Mikayla PETTY, notified of gram stain results.
[2024-12-01 14:46] LABS: Iron 33 ug/dL (37-170)
[2024-12-01 14:56] LABS: Percent Iron Saturation 19 % (20-50)
[2024-12-01 15:12] LABS: Hepatitis B Surface Antigen Negative (Negative)
[2024-12-01 15:18] LABS: HAV RESULT Negative (Negative); Hepatitis B Core IgM Result Negative (Negative)
[2024-12-01 15:28] LABS: Ferritin 972.00 ng/mL (11.1-264)
[2024-12-01 16:40] LABS: Add Urine Microscopic? NO; Appearance Urine Clear (Clear); Glucose Urine UA Negative (Negative); Leukocyte Esterase Ur Negative LEU/UL (Negative); Nitrate Urine Negative (Negative); Specific Grav Ur 1.013 (1.001-1.035)
[2024-12-01] MEDS: ALPRAZolam (*CRX) 0.25 MG TABLET PO (20:29)
[2024-12-02] VITALS (17 sets, daily range): BP systolic 134–150; BP diastolic 45–52; PULSE 65–83; RESP 14–20; TEMP 36.1–36.8; O2SAT 93–98
[2024-12-02] MEDS: VANCOMYCIN HCL 125 MG ORAL CAPSULE PO ×3 (05:59→22:05)
[2024-12-02 06:05] LABS: Hematocrit 24.4 % (37.0-47.0); Hemoglobin 7.8 g/dL (12.0-15.0); Mean Corpuscular HGB Conc 32.0 g/dl (32-36); Mean Corpuscular Hemoglobin 29.8 pg (26-34); Mean Corpuscular Volume 93.1 fl (80-100); Platelet Count Result 231 k/mm3 (150-375); Red Blood Count 2.62 M/mm3 (4.2-5.4); White Blood Count 7.1 K/mm3 (4.5-10.0)
[2024-12-02 06:26] LABS: Alanine Aminotransferase 473 U/L (6-35); Albumin Level 2.6 g/dL (3.5-5.1); Alkaline Phosphatase 84 U/L (38-126); Anion Gap 3 mmol/L (4-12); Aspartate Amino Transferase 418 U/L (14-36); Bilirubin,Total 0.4 mg/dL (0.2-1.3); Blood Urea Nitrogen 20 mg/dL (7-17); Calcium 7.5 mg/dL (8.4-10.2); Carbon Dioxide 33 mmol/L (22-30); Chloride 92 mmol/L (98-107); Estimated CRCL calculation 35 ml/min; Estimated Glomerular Filt Rate 45; Glucose 113 mg/dL (65-110); Potassium 3.5 mmol/L (3.4-5.0); Sodium 128 mmol/L (137-145); Total Protein 4.9 g/dL (6.3-8.2)
[2024-12-02] MEDS: IPRATROPIUM 0.5 MG/ALBUTEROL SULFATE 2.5 MG (BASE) AMPUL.NEB 3 ML INHALATION ×3 (07:35→20:15)
[2024-12-02] MEDS: ATORVASTATIN 10 MG TABLET PO (08:56)
[2024-12-02] MEDS: cycloSPORINE 0.4 ML OPHTH SOLUTION 1 DROP EACH EYE ×2 (08:56→22:04)
[2024-12-02] MEDS: CALCIUM/VITAMIN D 500 MG/5 MCG (200 I.U.) TABLET PO ×2 (08:56→17:43)
[2024-12-02] MEDS: SODIUM CHLORIDE 500 MG TABLET 1500 MG PO ×2 (08:57→17:43)
[2024-12-02] MEDS: FUROSEMIDE INJ 40 MG/4 ML VIAL IV PUSH ×2 (08:57→17:44)
[2024-12-02] MEDS: MAGNESIUM OXIDE 400 MG TABLET PO (08:57)
[2024-12-02] MEDS: TAMSULOSIN HCL 0.4 MG CAPSULE PO (08:57)
[2024-12-02] MEDS: METOPROLOL TARTRATE 50 MG TAB PO ×2 (09:00→22:05)
[2024-12-02 15:08] LABS: Albumin, Body Fluid 2.1 g/dL (Not Estab.); Glucose, Body Fluid 109 mg/dL (.); LD, Body Fluid 187 IU/L (.); Triglycerides, Body Fluid 27 mg/dL (Not Estab.)
[2024-12-02] MEDS: ALPRAZolam (*CRX) 0.25 MG TABLET PO (22:09)
[2024-12-03] VITALS (18 sets, daily range): BP systolic 127–153; BP diastolic 54–86; PULSE 62–84; RESP 16–18; TEMP 36.4–36.8; O2SAT 94–99
--- NOTE | 2024-12-03 02:14 | PCRCNOTE ---
Patient asked that 0200 tx be held if sleeping
[2024-12-03 05:51] LABS: Hematocrit 24.2 % (37.0-47.0); Hemoglobin 7.6 g/dL (12.0-15.0); Mean Corpuscular HGB Conc 31.4 g/dl (32-36); Mean Corpuscular Hemoglobin 29.7 pg (26-34); Mean Corpuscular Volume 94.5 fl (80-100); Platelet Count Result 212 k/mm3 (150-375); Red Blood Count 2.56 M/mm3 (4.2-5.4); White Blood Count 6.7 K/mm3 (4.5-10.0)
[2024-12-03] MEDS: VANCOMYCIN HCL 125 MG ORAL CAPSULE PO ×3 (05:52→20:16)
[2024-12-03 06:11] LABS: Alanine Aminotransferase 483 U/L (6-35); Albumin Level 2.6 g/dL (3.5-5.1); Alkaline Phosphatase 94 U/L (38-126); Anion Gap 2 mmol/L (4-12); Aspartate Amino Transferase 435 U/L (14-36); Bilirubin,Total 0.4 mg/dL (0.2-1.3); Blood Urea Nitrogen 22 mg/dL (7-17); Calcium 7.6 mg/dL (8.4-10.2); Carbon Dioxide 34 mmol/L (22-30); Chloride 93 mmol/L (98-107); Estimated CRCL calculation 30 ml/min; Estimated Glomerular Filt Rate 39; Glucose 108 mg/dL (65-110); Potassium 3.2 mmol/L (3.4-5.0); Sodium 129 mmol/L (137-145); Total Protein 5.1 g/dL (6.3-8.2)
[2024-12-03] MEDS: IPRATROPIUM 0.5 MG/ALBUTEROL SULFATE 2.5 MG (BASE) AMPUL.NEB 3 ML INHALATION ×3 (07:46→19:43)
--- NOTE | 2024-12-03 10:19 | P.PNIM_ITS ---
Progress Note: A&P Assessment and Plan (1) Respiratory failure with hypoxia: Code(s): J96.91 - Respiratory failure, unspecified with hypoxia Status: Acute Assessment and Plan: - Oxygen supplementation: 3L NC, wean as tolerated - Suspected cause: likely related to ongoing pleural effusions - CT chest/abdomen/pelvis showed no significant change in a moderate-sized bilateral pleural effusions with complete collapse of the right lower lobe, partial collapse of the left lower lobe and additional mild dependent atelectasis in the remaining lobes of both lungs. will add chest xray conitnue lasix for now (2) Elevated liver enzymes: Code(s): R74.8 - Abnormal levels of other serum enzymes Status: Acute Assessment and Plan: LFTs appear to have been uptrending since 11/25, peaked with an AST 902 and ALT 608 on 11/30 and no downtrending on am labs Tot bili and alk phos remain WNL Hepatitis panel pending CT chest/abdomen/pelvis showed a normal liver but a small amount of scattered ascites with no organized abscess or free intraperitoneal gas GI consulted * Clinical presentation likely related to hypoxic/ischemic injury, especially following episodes of acute respiratory failure or fluid overload in combination with underlying cirrhosis * Check addition Hepatitis panel and autoimmune hepatitis (3) Pleural effusion: Code(s): J90 - Pleural effusion, not elsewhere classified Status: Acute Assessment and Plan: Does not appear infectious in nature. pH > 7.5 and no organisms seen on gram stain. WBC WNL and afebrile. Prior effusion noninfectious on 11/08. - BNP: 837 - CT chest/abdomen/pelvis showed no significant change in a moderate-sized skip ateral pleural effusions with complete collapse of the right lower lobe, partial collapse of the left lower lobe and additional mild dependent atelectasis in the remaining lobes of both lungs. - Echo 11/07: Concentric left ventricular hypertrophy with hyperdynamic systolic function and grade I diastolic dysfunction - Thoracentesis on 12/01 with 450 ml clear straw color fluid removed. - Jose hose ordered for bilateral lower ext. edema - Lasix 40 mg IV BID - Monitor vital signs, I&Os, BUN/creatinine, daily weights, neuro status and patient is a fall risk - Monitor serum electrolytes, Keep serum Potassium>4 and serum Magnesium>2 and CBC continue lasix for now will re eval once chest xray is competed (4) Pancolitis: Code(s): K52.9 - Noninfective gastroenteritis and colitis, unspecified Status: Acute Assessment and Plan: CT chest/abdomen/pelvis showed uncomplicated colitis vs more likely descending colon diverticulitis Patient had a positive C diff test on 11/09/2024 Evaluated by ID at that time and was discharged on a vancomycin taper which has been continued on admission Patient denies any abdominal pain, nausea/vomiting and diarrhea. Per GI plan to discuss outpatient colonoscopy a follow-up visit (5) A-fib: Code(s): I48.91 - Unspecified atrial fibrillation Status: Acute Assessment and Plan: - EKG: Sinus rhythm HR 66 - metoprolol 50 mg BID - currently holding eliquis for carlaa, resume as appropriate if chest xray stable, will resume eliquis (6) Bladder distension: Code(s): N32.89 - Other specified disorders of bladder Status: Acute Assessment and Plan: Hydronephrosis and distended bladder on CT UA ordered Denies any UTI like symptoms Bladder scan if over 400 place Holland catheter while aggressively diuresing (7) Hypertension: Code(s): I10 - Essential (primary) hypertension Status: Chronic Assessment and Plan: Chronic - holding amlodipine 10 mg daily, hydralazine 50 mg qid, lisinopril 40 mg daily, reusme as appropriate - metoprolol 50 mg bid - lasix 40 mg IV bid - blood pressures reviewed and remain stable, continue to monitor (8) Anemia: Code(s): D64.9 - Anemia, unspecified Status: Acute Assessment and Plan: Iron panel 11/21: total iron 17, TIBC 180, iron saturation 9%, ferritin 162. No signs of active GI bleeding. Repeat Iron panel ordered Per GI, plan to discuss in the office outpatient if further evaluation and need for endoscopic evaluation to rule out GI source of blood loss or malabsorption (9) Anxiety: Code(s): F41.9 - Anxiety disorder, unspecified Status: Acute Assessment and Plan: Continue Xanax prn Time Spent With Patient Time with patient: 25 - 35 minutes Subjective Date/time seen: 12/02/24 10:19 Interval history: 78-year-old female history of hypertension, hyperlipidemia, CHF, afib presents from rehab with abnormal labs of increased liver enzymes. 12/02 Patient is pleasant, up in a chair. family at the bedside. She continues to endorse slight shortness of breath but notes that this significantly better since receiving the thoracentesis. She continues to tolerate a diet and denies any associated nausea/vomiting or abdominal pain. She has no other complaints denying chest pain, palpitations. Review of Systems Review of Systems: 12 systems were reviewed and are negativ e except for as per HPI. All systems reviewed & are unremarkable except as noted in HPI and below Exam Narrative: AF HR 63 RR 20 SpO2 94 3L NC (baseline from rehab) BP 132/45 General: female in no acute respiratory distress who is nontoxic appearing, lying semi recumbent in bed. HEENT: Normocephalic. Atraumatic. Extraocular movement intact. Sclera clear and anicteric. No facial asymmetry. Chest: Lungs are diminished lung sounds to the upper lobes and coarse to the lower lobes on auscultation bilaterally. Speaking full sentences. CV: Heart was regular rate and rhythm. Abd: Abdomen was soft. Nontender. Nondistended. Positive bowel sounds. Ext: No clubbing, cyanosis. 2+ pitting edema to the lower extremities. DP pulses bilaterally. Neuro: Patient is alert and oriented x4. Speech is clear. Objective Data Vital Signs Vital Signs: Vital Signs - 24 hr 12/02/24 10:46 12/02/24 12:00 12/02/24 14:09 Temperature Pulse Rate 72 83 Respiratory Rate 17 Blood Pressure Pulse Oximetry Oxygen Delivery Nasal Cannula Oxygen Flow Rate 4 12/02/24 14:35 12/02/24 15:14 12/02/24 16:00 Temperature 97.8 F Pulse Rate 83 73 74 Respiratory Rate 17 20 Blood Pressure 134/50 L Pulse Oximetry 96 Oxygen Delivery Oxygen Flow Rate 12/02/24 17:46 12/02/24 20:00 12/02/24 20:00 Temperature Pulse Rate 69 Respiratory Rate Blood Pressure 150/49 H Pulse Oximetry 95 Oxygen Delivery Nasal Cannula Oxygen Flow Rate 2 12/02/24 20:16 12/02/24 20:16 12/02/24 20:20 Temperature Pulse Rate 80 81 Respiratory Rate 15 14 Blood Pressure Pulse Oximetry 93 Oxygen Delivery Nasal Cannula Oxygen Flow Rate 3 12/02/24 22:00 12/03/24 00:00 12/03/24 04:00 Temperature 97.0 F L Pulse Rate 70 62 64 Respiratory Rate 18 Blood Pressure 135/52 L Pulse Oximetry 98 Oxygen Delivery Oxygen Flow Rate 12/03/24 06:00 12/03/24 07:46 12/03/24 07:46 Temperature 97.7 F Pulse Rate 84 66 Respiratory Rate 18 16 Blood Pressure 146/54 H Pulse Oximetry 99 97 Oxygen Delivery Nasal Cannula Oxygen Flow Rate 3 12/03/24 07:58 Temperature Pulse Rate 73 Respiratory Rate 16 Blood Pressure Pulse Oximetry Oxygen Delivery Oxygen Flow Rate Intake/Output Intake/Output: Intake & Output 11/30/24 12/01/24 12/02/24 12/03/24 23:59 23:59 23:59 23:59 Intake Total 167 685 6715 200 Output Total 1650 3150 1275 1200 Balance -1230 -2380 185 -1000 Meds/Results Medications: Active Medications Generic Name Dose Route Start Last Admin Trade Name Freq PRN Reason Stop Dose Admin Acetaminophen 650 mg 11/30/24 16:31 Acetaminophen 325 Mg Tablet PO Q4H PRN Mild Pain (1-3) or Fever Hydrocodone Bitart/Acetaminophen 1 tab 11/30/24 22:12 Hydrocodone/Acetaminophen (*Crx) 5-325 Mg Tablet PO Q6H PRN Pain 4-6 Albuterol/Ipratropium 3 ml 12/01/24 02:00 12/03/24 07:46 Ipratropium 0.5 Mg/Albuterol Sulfate 2.5 Mg (Base) Ampul.Neb 3 Ml INHALATION 3 ml Q6HRT KEVIN Administration Alprazolam 0.25 mg 11/30/24 22:12 12/02/24 22:09 Alprazolam (*Crx) 0.25 Mg Tablet PO 0.25 mg QHS PRN Administration Anxiety Atorvastatin Calcium 10 mg 12/01/24 09:00 12/02/24 08:56 Atorvastatin 10 Mg Tablet PO 10 mg DAILY KEVIN Administration Calcium Carbonate 500 mg 12/01/24 08:00 12/02/24 17:43 Calcium/Vitamin D 500 Mg/5 Mcg (200 I.U.) Tablet PO 500 mg BIDWM KEVIN Administration Cyclosporine 1 drop 11/30/24 22:15 12/02/24 22:04 Cyclosporine 0.4 Ml Ophth Solution EACH EYE 1 drop Q12HR KEVIN Administration Docusate Sodium 100 mg 11/30/24 16:31 Docusate Sodium 100 Mg Capsule PO BID PRN Constipation Furosemide 40 mg 12/01/24 09:00 12/02/24 17:44 Furosemide Inj 40 Mg/4 Ml Vial IV PUSH 40 mg BID KEVIN Administration Magnesium Oxide 400 mg 12/01/24 09:00 12/02/24 08:57 Magnesium Oxide 400 Mg Tablet PO 400 mg QAM KEVIN Administration Metoprolol Tartrate 50 mg 12/01/24 09:00 12/02/24 22:05 Metoprolol Tartrate 50 Mg Tab PO 50 mg Q12HR KEVIN Administration Sodium Chloride 1 spray 11/30/24 22:12 Saline 0.65% Rodrigo Soln 44 Ml Btl NASAL Q6HR PRN Congestion Sodium Chloride 1,500 mg 12/01/24 09:00 12/02/24 17:43 Sodium Chloride 500 Mg Tablet PO 1,500 mg BID KEVIN Administration Tamsulosin HCl 0.4 mg 12/01/24 09:00 12/02/24 08:57 Tamsulosin Hcl 0.4 Mg Capsule PO 0.4 mg QAM KEVIN Administration Trazodone HCl 50 mg 11/30/24 23:46 12/02/24 22:09 Trazodone Hcl 50 Mg Tablet PO 50 mg HS PRN Administration Insomnia Vancomycin HCl 125 mg 12/13/24 09:00 Vancomycin Hcl 125 Mg Oral Capsule PO 12/19/24 10:00 DAILY KEVIN Vancomycin HCl 125 mg 12/20/24 09:00 Vancomycin Hcl 125 Mg Oral Capsule PO 01/01/25 10:00 Q48H KEVIN Vancomycin HCl 125 mg 12/01/24 06:00 12/03/24 05:52 Vancomycin Hcl 125 Mg Oral Capsule PO 12/05/24 23:00 125 mg Q8HR KEVIN Administration Vancomycin HCl 125 mg 12/06/24 09:00 Vancomycin Hcl 125 Mg Oral Capsule PO 12/12/24 22:00 Q12HR [facility] Radiology Results: ITS Impressions Chest/Abdomen/Pelvis CT 11/30/24 15:30 IMPRESSION: 1. No significant change in a moderate-sized bilateral pleural effusions with complete collapse of the right lower lobe, partial collapse of the left lower lobe and additional mild dependent atelectasis in the remaining lobes of both lungs. 2. Radiographically uncomplicated colitis versus more likely descending colon diverticulitis. 3. Small amount of scattered ascites with no organized abscess or free intraperitoneal gas. 4. No interval change in 3 simple appearing cystic lesions at the body and tail the pancreas measuring up to 1.4 cm. The differential diagnosis includes pseudocyst, intraductal papillary mucinous neoplasm (IPMN), mucinous cystic neoplasm (MCN), and the less common serous cystadenoma and neuroendocrine tumor. Correlate for history of pancreatitis. Recommend 2 year follow-up pre and postcontrast MRI. 5. 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 Chest X-Ray 12/01/24 10:04 IMPRESSION: 1. No residual right pleural effusion postthoracentesis. 2. Small lung volumes with opacities at the bilateral lower lung zones consistent with very small left pleural effusion and bibasilar atelectasis and/or pneumonia. Thoracentesis Ultrasound 12/01/24 10:20 IMPRESSION: 1. Successful ultrasound-guided thoracentesis yielding 450 mL of clear straw- colored fluid. Labs Labs: Laboratory Results - last 24 hr 12/01/24 12/01/24 12/03/24 09:50 14:08 05:45 WBC 6.7 RBC 2.56 L Hgb 7.6 L Hct 24.2 L MCV 94.5 MCH 29.7 MCHC 31.4 L RDW 14.9 H Plt Count 212 MPV 9.8 Sodium 129 L Potassium 3.2 L Chloride 93 L Carbon Dioxide 34 H Anion Gap 2 L BUN 22 H Creatinine 1.33 H Estim Creat Clear Calc 30 Estimated GFR 39 L Glucose 108 Calcium 7.6 L Total Bilirubin 0.4 AST 435 H ALT 483 H Alkaline Phosphatase 94 Total Protein 5.1 L Albumin 2.6 L Fluid Glucose 109 Fluid Total Protein 3.0 Fluid Albumin 2.1 Fluid LDH 187 Fluid Amylase 14 Fluid Triglycerides 27 Actin IgG Antibody 5 Quality VTE Prophylaxis VTE prophylaxis: mechanical ordered
[2024-12-03] MEDS: SODIUM CHLORIDE 500 MG TABLET 1500 MG PO ×2 (10:24→17:35)
--- NOTE | 2024-12-03 10:24 | P.PNIM_ITS ---
Progress Note: A&P Assessment and Plan (1) Respiratory failure with hypoxia: Code(s): J96.91 - Respiratory failure, unspecified with hypoxia Status: Acute Assessment and Plan: - Oxygen supplementation: 3L NC, wean as tolerated - Suspected cause: likely related to ongoing pleural effusions - CT chest/abdomen/pelvis showed no significant change in a moderate-sized bilateral pleural effusions with complete collapse of the right lower lobe, partial collapse of the left lower lobe and additional mild dependent atelectasis in the remaining lobes of both lungs. will add chest xray conitnue lasix for now but decrease to daily 40 mg as cr worsen (2) Elevated liver enzymes: Code(s): R74.8 - Abnormal levels of other serum enzymes Status: Acute Assessment and Plan: LFTs appear to have been uptrending since 11/25, peaked with an AST 902 and ALT 608 on 11/30 and no downtrending on am labs Tot bili and alk phos remain WNL Hepatitis panel pending CT chest/abdomen/pelvis showed a normal liver but a small amount of scattered ascites with no organized abscess or free intraperitoneal gas GI consulted * Clinical presentation likely related to hypoxic/ischemic injury, especially following episodes of acute respiratory failure or fluid overload in combination with underlying cirrhosis * Check addition Hepatitis panel and autoimmune hepatitis (3) Pleural effusion: Code(s): J90 - Pleural effusion, not elsewhere classified Status: Acute Assessment and Plan: Does not appear infectious in nature. pH > 7.5 and no organisms seen on gram stain. WBC WNL and afebrile. Prior effusion noninfectious on 11/08. - BNP: 837 - CT chest/abdomen/pelvis showed no significant change in a moderate-sized bilateral pleural effusions with complete collapse of the right lower lobe, partial collapse of the left lower lobe and additional mild dependent atelectasis in the remaining lobes of both lungs. - Echo 11/07: Concentric left ventricular hypertrophy with hyperdynamic systolic function and grade I diastolic dysfunction - Thoracentesis on 12/01 with 450 ml clear straw color fluid removed. - Jose hose ordered for bilateral lower ext. edema - Lasix 40 mg IV BID - Monitor vital signs, I&Os, BUN/creatinine, daily weights, neuro status and patient is a fall risk - Monitor serum electrolytes, Keep serum Potassium>4 and serum Magnesium>2 and CBC continue lasix for now will re eval once chest xray is competed chest xray is stable will decrease lasix to 40 mg iv for now repeat chest xray in am- ordered (4) Pancolitis: Code(s): K52.9 - Noninfective gastroenteritis and colitis, unspecified Status: Acute Assessment and Plan: CT chest/abdomen/pelvis showed uncomplicated colitis vs more likely descending c olon diverticulitis Patient had a positive C diff test on 11/09/2024 Evaluated by ID at that time and was discharged on a vancomycin taper which has been continued on admission Patient denies any abdominal pain, nausea/vomiting and diarrhea. Per GI plan to discuss outpatient colonoscopy a follow-up visit (5) A-fib: Code(s): I48.91 - Unspecified atrial fibrillation Status: Acute Assessment and Plan: - EKG: Sinus rhythm HR 66 - metoprolol 50 mg BID - currently holding eliquis for laura, resume as appropriate if chest xray stable, will resume eliquis (6) Bladder distension: Code(s): N32.89 - Other specified disorders of bladder Status: Acute Assessment and Plan: Hydronephrosis and distended bladder on CT UA ordered Denies any UTI like symptoms Bladder scan if over [address] Holland catheter while aggressively diuresing (7) Hypertension: Code(s): I10 - Essential (primary) hypertension Status: Chronic Assessment and Plan: Chronic - holding amlodipine 10 mg daily, hydralazine 50 mg qid, lisinopril 40 mg daily, reusme as appropriate - metoprolol 50 mg bid - lasix 40 mg IV bid - blood pressures reviewed and remain stable, continue to monitor will resume amlodipine (8) Anemia: Code(s): D64.9 - Anemia, unspecified Status: Acute Assessment and Plan: Iron panel 11/21: total iron 17, TIBC 180, iron saturation 9%, ferritin 162. No signs of active GI bleeding. Repeat Iron panel ordered Per GI, plan to discuss in the office outpatient if further evaluation and need for endoscopic evaluation to rule out GI source of blood loss or malabsorption (9) Anxiety: Code(s): F41.9 - Anxiety disorder, unspecified Status: Acute Assessment and Plan: Continue Xanax prn Subjective Date/time seen: 12/03/24 10:24 Interval history: 78-year-old female history of hypertension, hyperlipidemia, CHF, afib presents from rehab with abnormal labs of increased liver enzymes. 12/02 Patient is pleasant, up in a chair. family at the bedside. She continues to endorse slight shortness of breath but notes that this significantly better since receiving the thoracentesis. She continues to tolerate a diet and denies any associated nausea/vomiting or abdominal pain. She has no other complaints denying chest pain, palpitations. 12/03 pt is seen and examined. Her breathing is better, she is still on oxygen though. Reports that diarrhea is slowing down now. Review of Systems Review of Systems: 12 systems were reviewed and are negativ e except for as per HPI. All systems reviewed & are unremarkable except as noted in HPI and below Exam Narrative: General: female in no acute respiratory distress who is nontoxic appearing, lying semi recumbent in bed. HEENT: Normocephalic. Atraumatic. Extraocular movement intact. Sclera clear and anicteric. No facial asymmetry. Chest: Lungs are diminished lung sounds to the upper lobes and coarse to the lower lobes on auscultation bilaterally. Speaking full sentences. CV: Heart was regular rate and rhythm. Abd: Abdomen was soft. Nontender. Nondistended. Positive bowel sounds. Ext: No clubbing, cyanosis. 2+ pitting edema to the lower extremities. DP pulses bilaterally. Neuro: Patient is alert and oriented x4. Speech is clear. Objective Data Vital Signs Vital Signs: Vital Signs - 24 hr 12/02/24 10:46 12/02/24 12:00 12/02/24 14:09 Temperature Pulse Rate 72 83 Respiratory Rate 17 Blood Pressure Pulse Oximetry Oxygen Delivery Nasal Cannula Oxygen Flow Rate 4 12/02/24 14:35 12/02/24 15:14 12/02/24 16:00 Temperature 97.8 F Pulse Rate 83 73 74 Respiratory Rate 17 20 Blood Pressure 134/50 L Pulse Oximetry 96 Oxygen Delivery Oxygen Flow Rate 12/02/24 17:46 12/02/24 20:00 12/02/24 20:00 Temperature Pulse Rate 69 Respiratory Rate Blood Pressure 150/49 H Pulse Oximetry 95 Oxygen Delivery Nasal Cannula Oxygen Flow Rate 2 12/02/24 20:16 12/02/24 20:16 12/02/24 20:20 Temperature Pulse Rate 80 81 Respiratory Rate 15 14 Blood Pressure Pulse Oximetry 93 Oxygen Delivery Nasal Cannula Oxygen Flow Rate 3 12/02/24 22:00 12/03/24 00:00 12/03/24 04:00 Temperature 97.0 F L Pulse Rate 70 62 64 Respiratory Rate 18 Blood Pressure 135/52 L Pulse Oximetry 98 Oxygen Delivery Oxygen Flow Rate 12/03/24 06:00 12/03/24 07:46 12/03/24 07:46 Temperature 97.7 F Pulse Rate 84 66 Respiratory Rate 18 16 Blood Pressure 146/54 H Pulse Oximetry 99 97 Oxygen Delivery Nasal Cannula Oxygen Flow Rate 3 12/03/24 07:58 Temperature Pulse Rate 73 Respiratory Rate 16 Blood Pressure Pulse Oximetry Oxygen Delivery Oxygen Flow Rate Intake/Output Intake/Output: Intake & Output 11/30/24 12/01/24 12/02/24 12/03/24 23:59 23:59 23:59 23:59 Intake Total 032 634 4700 200 Output Total 1650 3150 1275 1200 Balance -1230 -2380 185 -1000 Meds/Results Medications: Active Medications Generic Name Dose Route Start Last Admin Trade Name Freq PRN Reason Stop Dose Admin Acetaminophen 650 mg 11/30/24 16:31 Acetaminophen 325 Mg Tablet PO Q4H PRN Mild Pain (1-3) or Fever Hydrocodone Bitart/Acetaminophen 1 tab 11/30/24 22:12 Hydrocodone/Acetaminophen (*Crx) 5-325 Mg Tablet PO Q6H PRN Pain 4-6 Albuterol/Ipratropium 3 ml 12/01/24 02:00 12/03/24 07:46 Ipratropium 0.5 Mg/Albuterol Sulfate 2.5 Mg (Base) Ampul.Neb 3 Ml INHALATION 3 ml Q6HRT KEVIN Administration Alprazolam 0.25 mg 11/30/24 22:12 12/02/24 22:09 Alprazolam (*Crx) 0.25 Mg Tablet PO 0.25 mg QHS PRN Administration Anxiety Atorvastatin Calcium 10 mg 12/01/24 09:00 12/02/24 08:56 Atorvastatin 10 Mg Tablet PO 10 mg DAILY KEVIN Administration Calcium Carbonate 500 mg 12/01/24 08:00 12/02/24 17:43 Calcium/Vitamin D 500 Mg/5 Mcg (200 I.U.) Tablet PO 500 mg BIDWM KEVIN Administration Cyclosporine 1 drop 11/30/24 22:15 12/02/24 22:04 Cyclosporine 0.4 Ml Ophth Solution EACH EYE 1 drop Q12HR KEVIN Administration Docusate Sodium 100 mg 11/30/24 16:31 Docusate Sodium 100 Mg Capsule PO BID PRN Constipation Furosemide 40 mg 12/01/24 09:00 12/02/24 17:44 Furosemide Inj 40 Mg/4 Ml Vial IV PUSH 40 mg BID KEVIN Administration Potassium Chloride 40 meq/ 520 mls @ 130 mls/hr 12/03/24 10:22 Sodium Chloride IVPB 12/03/24 14:21 ONCE ONE Magnesium Oxide 400 mg 12/01/24 09:00 12/02/24 08:57 Magnesium Oxide 400 Mg Tablet PO 400 mg QAM KEVIN Administration Metoprolol Tartrate 50 mg 12/01/24 09:00 12/02/24 22:05 Metoprolol Tartrate 50 Mg Tab PO 50 mg Q12HR KEVIN Administration Sodium Chloride 1 spray 11/30/24 22:12 Saline 0.65% Rodrigo Soln 44 Ml Btl NASAL Q6HR PRN Congestion Sodium Chloride 1,500 mg 12/01/24 09:00 12/02/24 17:43 Sodium Chloride 500 Mg Tablet PO 1,500 mg BID KEVIN Administration Tamsulosin HCl 0.4 mg 12/01/24 09:00 12/02/24 08:57 Tamsulosin Hcl 0.4 Mg Capsule PO 0.4 mg QAM KEVIN Administration Trazodone HCl 50 mg 11/30/24 23:46 12/02/24 22:09 Trazodone Hcl 50 Mg Tablet PO 50 mg HS PRN Administration Insomnia Vancomycin HCl 125 mg 12/13/24 09:00 Vancomycin Hcl 125 Mg Oral Capsule PO 12/19/24 10:00 DAILY [facility] Vancomycin HCl 125 mg 12/20/24 09:00 Vancomycin Hcl 125 Mg Oral Capsule PO 01/01/25 10:00 Q48H [facility] Vancomycin HCl 125 mg 12/01/24 06:00 12/03/24 05:52 Vancomycin Hcl 125 Mg Oral Capsule PO 12/05/24 23:00 125 mg Q8HR KEVIN Administration Vancomycin HCl 125 mg 12/06/24 09:00 Vancomycin Hcl 125 Mg Oral Capsule PO 12/12/24 22:00 Q12HR [facility] Radiology Results: ITS Impressions Chest/Abdomen/Pelvis CT 11/30/24 15:30 IMPRESSION: 1. No significant change in a moderate-sized bilateral pleural effusions with complete collapse of the right lower lobe, partial collapse of the left lower lobe and additional mild dependent atelectasis in the remaining lobes of both lungs. 2. Radiographically uncomplicated colitis versus more likely descending colon diverticulitis. 3. Small amount of scattered ascites with no organized abscess or free intraperitoneal gas. 4. No interval change in 3 simple appearing cystic lesions at the body and tail the pancreas measuring up to 1.4 cm. The differential diagnosis includes pseudocyst, intraductal papillary mucinous neoplasm (IPMN), mucinous cystic neoplasm (MCN), and the less common serous cystadenoma and neuroendocrine tumor. Correlate for history of pancreatitis. Recommend 2 year follow-up pre and postcontrast MRI. 5. 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 Chest X-Ray 12/01/24 10:04 IMPRESSION: 1. No residual right pleural effusion postthoracentesis. 2. Small lung volumes with opacities at the bilateral lower lung zones consistent with very small left pleural effusion and bibasilar atelectasis and/or pneumonia. Thoracentesis Ultrasound 12/01/24 10:20 IMPRESSION: 1. Successful ultrasound-guided thoracentesis yielding 450 mL of clear straw- colored fluid. Labs Labs: Laboratory Results - last 24 hr 12/01/24 12/01/24 12/03/24 09:50 14:08 05:45 WBC 6.7 RBC 2.56 L Hgb 7.6 L Hct 24.2 L MCV 94.5 MCH 29.7 MCHC 31.4 L RDW 14.9 H Plt Count 212 MPV 9.8 Sodium 129 L Potassium 3.2 L Chloride 93 L Carbon Dioxide 34 H Anion Gap 2 L BUN 22 H Creatinine 1.33 H Estim Creat Clear Calc 30 Estimated GFR 39 L Glucose 108 Calcium 7.6 L Total Bilirubin 0.4 AST 435 H ALT 483 H Alkaline Phosphatase 94 Total Protein 5.1 L Albumin 2.6 L Fluid Glucose 109 Fluid Total Protein 3.0 Fluid Albumin 2.1 Fluid LDH 187 Fluid Amylase 14 Fluid Triglycerides 27 Actin IgG Antibody 5 Quality VTE Prophylaxis VTE prophylaxis: mechanical ordered
[2024-12-03] MEDS: cycloSPORINE 0.4 ML OPHTH SOLUTION 1 DROP EACH EYE ×2 (10:25→20:15)
[2024-12-03] MEDS: MAGNESIUM OXIDE 400 MG TABLET PO (10:25)
[2024-12-03] MEDS: METOPROLOL TARTRATE 50 MG TAB PO ×2 (10:25→20:16)
[2024-12-03] MEDS: TAMSULOSIN HCL 0.4 MG CAPSULE PO (10:26)
[2024-12-03] MEDS: CALCIUM/VITAMIN D 500 MG/5 MCG (200 I.U.) TABLET PO ×2 (10:26→17:35)
[2024-12-03] MEDS: FUROSEMIDE INJ 40 MG/4 ML VIAL IV PUSH (10:26)
[2024-12-03] MEDS: ATORVASTATIN 10 MG TABLET PO (10:26)
[2024-12-03] MEDS: POTASSIUM CHLORIDE 20 MEQ ER TABLET 40 MEQ PO (14:03)
[2024-12-03] MEDS: ALPRAZolam (*CRX) 0.25 MG TABLET PO (20:16)
[2024-12-03] MEDS: APIXABAN 2.5 MG TABLET PO (20:17)
[2024-12-04] VITALS (13 sets, daily range): BP systolic 143–147; BP diastolic 61–62; PULSE 60–82; RESP 16–18; TEMP 36.3–36.9; O2SAT 94–97
--- NOTE | 2024-12-04 01:51 | PCRCNOTE ---
Pt declined 0200 breathing treatment
[2024-12-04] MEDS: VANCOMYCIN HCL 125 MG ORAL CAPSULE PO ×3 (05:11→21:50)
[2024-12-04 05:31] LABS: Hematocrit 23.7 % (37.0-47.0); Hemoglobin 7.5 g/dL (12.0-15.0); Mean Corpuscular HGB Conc 31.6 g/dl (32-36); Mean Corpuscular Hemoglobin 29.6 pg (26-34); Mean Corpuscular Volume 93.7 fl (80-100); Platelet Count Result 207 k/mm3 (150-375); Red Blood Count 2.53 M/mm3 (4.2-5.4); White Blood Count 6.9 K/mm3 (4.5-10.0)
[2024-12-04 05:43] LABS: Alanine Aminotransferase 423 U/L (6-35); Albumin Level 2.6 g/dL (3.5-5.1); Alkaline Phosphatase 109 U/L (38-126); Anion Gap 2 mmol/L (4-12); Aspartate Amino Transferase 321 U/L (14-36); Bilirubin,Total 0.4 mg/dL (0.2-1.3); Blood Urea Nitrogen 20 mg/dL (7-17); Calcium 7.7 mg/dL (8.4-10.2); Carbon Dioxide 35 mmol/L (22-30); Chloride 93 mmol/L (98-107); Estimated CRCL calculation 34 ml/min; Estimated Glomerular Filt Rate 45; Glucose 108 mg/dL (65-110); Potassium 3.5 mmol/L (3.4-5.0); Sodium 130 mmol/L (137-145); Total Protein 5.0 g/dL (6.3-8.2)
[2024-12-04] MEDS: IPRATROPIUM 0.5 MG/ALBUTEROL SULFATE 2.5 MG (BASE) AMPUL.NEB 3 ML INHALATION (07:55)
--- NOTE | 2024-12-04 09:12 | P.PNIM_ITS ---
Progress Note: A&P Assessment and Plan (1) Respiratory failure with hypoxia: Code(s): J96.91 - Respiratory failure, unspecified with hypoxia Status: Acute Assessment and Plan: - Oxygen supplementation: 2.5L NC, wean as tolerated - Suspected cause: likely related to ongoing pleural effusions - CT chest/abdomen/pelvis showed no significant change in a moderate-sized bilateral pleural effusions with complete collapse of the right lower lobe, partial collapse of the left lower lobe and additional mild dependent atelectasis in the remaining lobes of both lungs. - See plan below (2) Elevated liver enzymes: Code(s): R74.8 - Abnormal levels of other serum enzymes Status: Acute Assessment and Plan: LFTs appear to have been uptrending since 11/25, peaked with an AST 902 and ALT 608 on 11/30 and continue to downtrend on am labs Tot bili and alk phos remain WNL Hepatitis panel negative CT chest/abdomen/pelvis showed a normal liver but a small amount of scattered ascites with no organized abscess or free intraperitoneal gas GI consulted * Clinical presentation likely related to hypoxic/ischemic injury, especially following episodes of acute respiratory failure or fluid overload in combination with underlying cirrhosis LFTs continue to downtrend on labs. (3) Pleural effusion: Code(s): J90 - Pleural effusion, not elsewhere classified Status: Acute Assessment and Plan: Does not appear infectious in nature. pH > 7.5 and no organisms seen on gram stain. WBC WNL and afebrile. Prior effusion noninfectious on 11/08. - BNP: 837 - CT chest/abdomen/pelvis showed no significant change in a moderate-sized bilateral pleural effusions with complete collapse of the right lower lobe, partial collapse of the left lower lobe and additional mild dependent atelectasis in the remaining lobes of both lungs. - Echo 11/07: Concentric left ventricular hypertrophy with hyperdynamic systolic function and grade I diastolic dysfunction - Thoracentesis on 12/01 with 450 ml clear straw color fluid removed. - Jose hose ordered for bilateral lower ext. edema - Lasix 40 mg IV daily - Monitor vital signs, I&Os, BUN/creatinine, daily weights, neuro status and patient is a fall risk - Monitor serum electrolytes, Keep serum Potassium>4 and serum Magnesium>2 and CBC CXR on 12/04 showed persistent opacities in bilateral lower lung zones which could represent very small bilateral pleural effusions and associated basilar atelectasis and/or pneumonia. Likely atelectasis 2/2 effusions as patient remains afebrile, no cough and shortness of breath improving with lasix Will continue to hold antibiotics at this time Continue IV lasix daily, renal function stable Consider a CT tomorrow pending assessment to better evaluate the progression of the effusions (4) Pancolitis: Code(s): K52.9 - Noninfective gastroenteritis and colitis, unspecified Status: Acute Assessment and Plan: CT chest/abdomen/pelvis showed uncomplicated colitis vs more likely descending colon diverticulitis Patient had a positive C diff test on 11/09/2024 Evaluated by ID at that time and was discharged on a vancomycin taper which has been continued on admission Patient denies any abdominal pain, nausea/vomiting and diarrhea. Per GI plan to discuss outpatient colonoscopy a follow-up visit (5) A-fib: Code(s): I48.91 - Unspecified atrial fibrillation Status: Acute Assessment and Plan: - EKG: Sinus rhythm HR 66 - metoprolol 50 mg BID and eliquis 2.5 mg BID (6) Bladder distension: Code(s): N32.89 - Other specified disorders of bladder Status: Acute Assessment and Plan: Hydronephrosis and distended bladder on CT UA nonconcerning for acute infection Denies any UTI like symptoms Bladder scan if over 400 place Holland catheter while aggressively diuresing Will need voiding trial prior to dc (7) Hypertension: Code(s): I10 - Essential (primary) hypertension Status: Chronic Assessment and Plan: Chronic - holding hydralazine 50 mg qid, lisinopril 40 mg daily, resume as appropriate - metoprolol 50 mg bid - amlodipine 10 mg daily - lasix 40 mg IV daily - blood pressures reviewed and remain stable, continue to monitor (8) Anemia: Code(s): D64.9 - Anemia, unspecified Status: Acute Assessment and Plan: Iron panel 11/21: total iron 17, TIBC 180, iron saturation 9%, ferritin 162. No signs of active GI bleeding. Repeat Iron panel appears to be anemia of chronic disease Per GI, plan to discuss in the office outpatient if further evaluation and need for endoscopic evaluation to rule out GI source of blood loss or malabsorption (9) Anxiety: Code(s): F41.9 - Anxiety disorder, unspecified Status: Acute Assessment and Plan: Continue Xanax prn Time Spent With Patient Time with patient: 25 - 35 minutes Subjective Date/time seen: 12/04/24 09:12 Interval history: 78-year-old female history of hypertension, hyperlipidemia, CHF, afib presents from rehab with abnormal labs of increased liver enzymes. Patient is pleasant sitting up comfortably in her chair with family at bedside. She states that her shortness of breath has improved since admission. She remains on oxygen with stable saturations. She denies any associated cough. She has no other complaints denying chest pain, palpitations, nausea/vomiting, and abdominal pain. Review of Systems Review of Systems: All systems reviewed & are unremarkable except as noted in HPI and below Exam Narrative: AF HR 82 RR 16 Spo2 96 2.5L NC BP 147/62 General: female in no acute respiratory distress who is nontoxic appearing, sitting up in chair HEENT: Normocephalic. Atraumatic. Extraocular movement intact. Sclera clear and anicteric. No facial asymmetry. Chest: Lungs are coarse to the lower lobes on auscultation bilaterally. Speaking full sentences. CV: Heart was regular rate and rhythm. Abd: Abdomen was soft. Nontender. Nondistended. Positive bowel sounds. Ext: No clubbing, cyanosis. DP pulses bilaterally. Neuro: Patient is alert and oriented x4. Speech is clear. Objective Data Vital Signs Vital Signs: Vital Signs - 24 hr 12/03/24 10:00 12/03/24 10:25 12/03/24 12:00 Temperature Pulse Rate 80 66 Respiratory Rate Blood Pressure Pulse Oximetry 94 Oxygen Delivery Nasal Cannula Oxygen Flow Rate 3 12/03/24 13:31 12/03/24 13:41 12/03/24 14:11 Temperature 98.2 F Pulse Rate 76 73 73 Respiratory Rate 16 16 16 Blood Pressure 153/56 H Pulse Oximetry 98 Oxygen Delivery Oxygen Flow Rate 12/03/24 16:00 12/03/24 19:43 12/03/24 19:49 Temperature Pulse Rate 73 74 73 Respiratory Rate 16 16 Blood Pressure Pulse Oximetry Oxygen Delivery Oxygen Flow Rate 12/03/24 19:52 12/03/24 20:00 12/03/24 20:00 Temperature Pulse Rate 79 Respiratory Rate Blood Pressure Pulse Oximetry 96 96 Oxygen Delivery Nasal Cannula Nasal Cannula Oxygen Flow Rate 3 3 12/03/24 22:00 12/04/24 00:00 12/04/24 04:00 Temperature 97.6 F Pulse Rate 73 61 60 Respiratory Rate 18 Blood Pressure 127/86 Pulse Oximetry 98 Oxygen Delivery Oxygen Flow Rate 12/04/24 06:00 12/04/24 07:55 12/04/24 07:57 Temperature 97.3 F L Pulse Rate 69 69 Respiratory Rate 16 16 Blood Pressure 147/62 H Pulse Oximetry 95 94 Oxygen Delivery Nasal Cannula Oxygen Flow Rate 3 12/04/24 08:01 Temperature Pulse Rate 72 Respiratory Rate 16 Blood Pressure Pulse Oximetry Oxygen Delivery Oxygen Flow Rate Intake/Output Intake/Output: Intake & Output 12/01/24 12/02/24 12/03/24 12/04/24 23:59 23:59 23:59 23:59 Intake Total 770 1460 1260 480 Output Total 3150 1275 2500 2400 Balance -2380 185 -1240 -1920 Meds/Results Medications: Active Medications Generic Name Dose Route Start Last Admin Trade Name Freq PRN Reason Stop Dose Admin Acetaminophen 650 mg 11/30/24 16:31 Acetaminophen 325 Mg Tablet PO Q4H PRN Mild Pain (1-3) or Fever Hydrocodone Bitart/Acetaminophen 1 tab 11/30/24 22:12 Hydrocodone/Acetaminophen (*Crx) 5-325 Mg Tablet PO Q6H PRN Pain 4-6 Albuterol/Ipratropium 3 ml 12/01/24 02:00 12/04/24 07:55 Ipratropium 0.5 Mg/Albuterol Sulfate 2.5 Mg (Base) Ampul.Neb 3 Ml INHALATION 3 ml Q6HRT KEVIN Administration Alprazolam 0.25 mg 11/30/24 22:12 12/03/24 20:16 Alprazolam (*Crx) 0.25 Mg Tablet PO 0.25 mg QHS PRN Administration Anxiety Amlodipine Besylate 10 mg 12/04/24 09:00 Amlodipine Besylate 10 Mg Tablet PO DAILY KEVIN Apixaban 2.5 mg 12/03/24 21:00 12/03/24 20:17 Apixaban 2.5 Mg Tablet PO 2.5 mg Q12HR KEVIN Administration Atorvastatin Calcium 10 mg 12/01/24 09:00 12/03/24 10:26 Atorvastatin 10 Mg Tablet PO 10 mg DAILY KEVIN Administration Calcium Carbonate 500 mg 12/01/24 08:00 12/03/24 17:35 Calcium/Vitamin D 500 Mg/5 Mcg (200 I.U.) Tablet PO 500 mg BIDWM KEVIN Administration Cyclosporine 1 drop 11/30/24 22:15 12/03/24 20:15 Cyclosporine 0.4 Ml Ophth Solution EACH EYE 1 drop Q12HR KEVIN Administration Docusate Sodium 100 mg 11/30/24 16:31 Docusate Sodium 100 Mg Capsule PO BID PRN Constipation Furosemide 40 mg 12/04/24 09:00 Furosemide Inj 40 Mg/4 Ml Vial IV PUSH DAILY KEVIN Magnesium Oxide 400 mg 12/01/24 09:00 12/03/24 10:25 Magnesium Oxide 400 Mg Tablet PO 400 mg QAM KEVIN Administration Metoprolol Tartrate 50 mg 12/01/24 09:00 12/03/24 20:16 Metoprolol Tartrate 50 Mg Tab PO 50 mg Q12HR KEVIN Administration Sodium Chloride 1 spray 11/30/24 22:12 Saline 0.65% Rodrigo Soln 44 Ml Btl NASAL Q6HR PRN Congestion Sodium Chloride 1,500 mg 12/01/24 09:00 12/03/24 17:35 Sodium Chloride 500 Mg Tablet PO 1,500 mg BID KEVIN Administration Tamsulosin HCl 0.4 mg 12/01/24 09:00 12/03/24 10:26 Tamsulosin Hcl 0.4 Mg Capsule PO 0.4 mg QAM KEVIN Administration Trazodone HCl 50 mg 11/30/24 23:46 12/03/24 20:16 Trazodone Hcl 50 Mg Tablet PO 50 mg HS PRN Administration Insomnia Vancomycin HCl 125 mg 12/13/24 09:00 Vancomycin Hcl 125 Mg Oral Capsule PO 12/19/24 10:00 DAILY KEVIN Vancomycin HCl 125 mg 12/20/24 09:00 Vancomycin Hcl 125 Mg Oral Capsule PO 01/01/25 10:00 Q48H KEVIN Vancomycin HCl 125 mg 12/01/24 06:00 12/04/24 05:11 Vancomycin Hcl 125 Mg Oral Capsule PO 12/05/24 23:00 125 mg Q8HR KEVIN Administration Vancomycin HCl 125 mg 12/06/24 09:00 Vancomycin Hcl 125 Mg Oral Capsule PO 12/12/24 22:00 Q12HR [facility] Radiology Results: ITS Impressions Chest/Abdomen/Pelvis CT 11/30/24 15:30 IMPRESSION: 1. No significant change in a moderate-sized bilateral pleural effusions with complete collapse of the right lower lobe, partial collapse of the left lower lobe and additional mild dependent atelectasis in the remaining lobes of both lungs. 2. Radiographically uncomplicated colitis versus more likely descending colon diverticulitis. 3. Small amount of scattered ascites with no organized abscess or free intraperitoneal gas. 4. No interval change in 3 simple appearing cystic lesions at the body and tail the pancreas measuring up to 1.4 cm. The differential diagnosis includes pseudocyst, intraductal papillary mucinous neoplasm (IPMN), mucinous cystic neoplasm (MCN), and the less common serous cystadenoma and neuroendocrine tumor. Correlate for history of pancreatitis. Recommend 2 year follow-up pre and postcontrast MRI. 5. 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 Thoracentesis Ultrasound 12/01/24 10:20 IMPRESSION: 1. Successful ultrasound-guided thoracentesis yielding 450 mL of clear straw- colored fluid. Chest X-Ray 12/04/24 07:53 IMPRESSION: 1. Persistent opacities in bilateral lower lung zones which could represent very small bilateral pleural effusions and associated basilar atelectasis and/or pneumonia. Labs Labs: Laboratory Results - last 24 hr 12/04/24 05:07 WBC 6.9 RBC 2.53 L Hgb 7.5 L Hct 23.7 L MCV 93.7 MCH 29.6 MCHC 31.6 L RDW 14.7 H Plt Count 207 MPV 9.8 Sodium 130 L Potassium 3.5 Chloride 93 L Carbon Dioxide 35 H Anion Gap 2 L BUN 20 H Creatinine 1.18 H Estim Creat Clear Calc 34 Estimated GFR 45 L Glucose 108 Calcium 7.7 L Total Bilirubin 0.4 AST 321 H ALT 423 H Alkaline Phosphatase 109 Total Protein 5.0 L Albumin 2.6 L Quality VTE Prophylaxis VTE prophylaxis: mechanical ordered and pharmacologic ordered
[2024-12-04] MEDS: CALCIUM/VITAMIN D 500 MG/5 MCG (200 I.U.) TABLET PO ×2 (09:29→16:37)
[2024-12-04] MEDS: FUROSEMIDE INJ 40 MG/4 ML VIAL IV PUSH (09:29)
[2024-12-04] MEDS: METOPROLOL TARTRATE 50 MG TAB PO ×2 (09:29→21:50)
[2024-12-04] MEDS: SODIUM CHLORIDE 500 MG TABLET 1500 MG PO ×2 (09:29→16:37)
[2024-12-04] MEDS: ATORVASTATIN 10 MG TABLET PO (09:30)
[2024-12-04] MEDS: MAGNESIUM OXIDE 400 MG TABLET PO (09:30)
[2024-12-04] MEDS: cycloSPORINE 0.4 ML OPHTH SOLUTION 1 DROP EACH EYE ×2 (09:30→21:50)
[2024-12-04] MEDS: APIXABAN 2.5 MG TABLET PO ×2 (09:30→21:50)
[2024-12-04] MEDS: TAMSULOSIN HCL 0.4 MG CAPSULE PO (09:30)
[2024-12-04 11:25] LABS: Neutrophils Pleural Fluid 4 % (0-25)
[2024-12-04] MEDS: ALPRAZolam (*CRX) 0.25 MG TABLET PO (21:50)
--- NOTE | 2024-12-04 23:55 | PCRCNOTE ---
Scheduled nebulized Duoneb not given due to being well outside of administration timing
[2024-12-05] VITALS (18 sets, daily range): BP systolic 133–151; BP diastolic 46–50; PULSE 57–97; RESP 14–18; TEMP 36.4–37; O2SAT 92–95
[2024-12-05] MEDS: IPRATROPIUM 0.5 MG/ALBUTEROL SULFATE 2.5 MG (BASE) AMPUL.NEB 3 ML INHALATION ×4 (02:07→19:39)
--- NOTE | 2024-12-05 02:29 | PCRCNOTE ---
Patient is agitated that there are 0200 treatments being scheduled after she requested they be discontinued; RN informed.
[2024-12-05] MEDS: VANCOMYCIN HCL 125 MG ORAL CAPSULE PO ×3 (05:25→20:55)
[2024-12-05 05:30] LABS: Hematocrit 23.4 % (37.0-47.0); Hemoglobin 7.4 g/dL (12.0-15.0); Mean Corpuscular HGB Conc 31.6 g/dl (32-36); Mean Corpuscular Hemoglobin 29.8 pg (26-34); Mean Corpuscular Volume 94.4 fl (80-100); Platelet Count Result 200 k/mm3 (150-375); Red Blood Count 2.48 M/mm3 (4.2-5.4); White Blood Count 7.4 K/mm3 (4.5-10.0)
[2024-12-05 05:56] LABS: Alanine Aminotransferase 317 U/L (6-35); Albumin Level 2.5 g/dL (3.5-5.1); Alkaline Phosphatase 106 U/L (38-126); Anion Gap 4 mmol/L (4-12); Aspartate Amino Transferase 179 U/L (14-36); Bilirubin,Total 0.4 mg/dL (0.2-1.3); Blood Urea Nitrogen 20 mg/dL (7-17); Calcium 7.7 mg/dL (8.4-10.2); Carbon Dioxide 35 mmol/L (22-30); Chloride 92 mmol/L (98-107); Estimated CRCL calculation 37 ml/min; Estimated Glomerular Filt Rate 49; Glucose 111 mg/dL (65-110); Potassium 3.4 mmol/L (3.4-5.0); Sodium 131 mmol/L (137-145); Total Protein 5.0 g/dL (6.3-8.2)
--- NOTE | 2024-12-05 08:25 | P.PNIM_ITS ---
Progress Note: A&P Assessment and Plan (1) Respiratory failure with hypoxia: Code(s): J96.91 - Respiratory failure, unspecified with hypoxia Status: Acute Assessment and Plan: - Oxygen supplementation: weaned to room air with stable saturations, maintain spo2 > 90 - Suspected cause: likely related to ongoing pleural effusions - CT chest/abdomen/pelvis showed no significant change in a moderate-sized bilateral pleural effusions with complete collapse of the right lower lobe, partial collapse of the left lower lobe and additional mild dependent atelectasis in the remaining lobes of both lungs. - See plan below (2) Pleural effusion: Code(s): J90 - Pleural effusion, not elsewhere classified Status: Acute Assessment and Plan: Does not appear infectious in nature. pH > 7.5 and no organisms seen on gram stain. WBC WNL and afebrile. Prior effusion noninfectious on 11/08. - BNP: 837 - CT chest/abdomen/pelvis showed no significant change in a moderate-sized bilateral pleural effusions with complete collapse of the right lower lobe, partial collapse of the left lower lobe and additional mild dependent atelectasis in the remaining lobes of both lungs. - Echo 11/07: Concentric left ventricular hypertrophy with hyperdynamic systolic function and grade I diastolic dysfunction - Thoracentesis on 12/01 with 450 ml clear straw color fluid removed. - Jose hose ordered for bilateral lower ext. edema - Lasix 40 mg IV daily - Monitor vital signs, I&Os, BUN/creatinine, daily weights, neuro status and patient is a fall risk - Monitor serum electrolytes, Keep serum Potassium>4 and serum Magnesium>2 and CBC CXR on 12/04 showed persistent opacities in bilateral lower lung zones which could represent very small bilateral pleural effusions and associated basilar atelectasis and/or pneumonia. Likely atelectasis 2/2 effusions as patient remains afebrile, no cough and shortness of breath improving with lasix Will continue to hold antibiotics at this time Continue IV lasix daily, renal function stable Lungs sounds improving on assessment. Weaned to room air today. Consider a CT tomorrow pending assessment to better evaluate the progression of the effusions (3) Elevated liver enzymes: Code(s): R74.8 - Abnormal levels of other serum enzymes Status: Acute Assessment and Plan: LFTs appear to have been uptrending since 11/25, peaked with an AST 902 and ALT 608 on 11/30 and continue to downtrend on am labs Tot bili and alk phos remain WNL Hepatitis panel negative CT chest/abdomen/pelvis showed a normal liver but a small amount of scattered ascites with no organized abscess or free intraperitoneal gas GI consulted * Clinical presentation likely related to hypoxic/ischemic injury, especially following episodes of acute respiratory failure or fluid overload in combination with underlying cirrhosis LFTs continue to downtrend on labs. (4) Pancolitis: Code(s): K52.9 - Noninfective gastroenteritis and colitis, unspecified Status: Acute Assessment and Plan: CT chest/abdomen/pelvis showed uncomplicated colitis vs more likely descending colon diverticulitis Patient had a positive C diff test on 11/09/2024 Evaluated by ID at that time and was discharged on a vancomycin taper which has been continued on admission Patient denies any abdominal pain, nausea/vomiting and diarrhea. Per GI plan to discuss outpatient colonoscopy a follow-up visit Patient continues to have soft formed stools. Denies nausea/vomiting and abdominal pain. (5) A-fib: Code(s): I48.91 - Unspecified atrial fibrillation Status: Acute Assessment and Plan: - EKG: Sinus rhythm HR 66 - metoprolol 50 mg BID and eliquis 2.5 mg BID (6) Bladder distension: Code(s): N32.89 - Other specified disorders of bladder Status: Acute Assessment and Plan: Hydronephrosis and distended bladder on CT UA nonconcerning for acute infection Denies any UTI like symptoms Bladder scan if over 400 place Holland catheter while aggressively diuresing Will attempt a voiding trial today. (7) Hypertension: Code(s): I10 - Essential (primary) hypertension Status: Chronic Assessment and Plan: Chronic - holding hydralazine 50 mg qid, lisinopril 40 mg daily, resume as appropriate - metoprolol 50 mg bid - amlodipine 10 mg daily - lasix 40 mg IV daily - blood pressures reviewed and remain stable, continue to monitor (8) Anemia: Code(s): D64.9 - Anemia, unspecified Status: Acute Assessment and Plan: Iron panel 11/21: total iron 17, TIBC 180, iron saturation 9%, ferritin 162. No signs of active GI bleeding. Repeat Iron panel appears to be anemia of chronic disease Per GI, plan to discuss in the office outpatient if further evaluation and need for endoscopic evaluation to rule out GI source of blood loss or malabsorption (9) Anxiety: Code(s): F41.9 - Anxiety disorder, unspecified Status: Acute Assessment and Plan: Continue Xanax prn Time Spent With Patient Time with patient: 25 - 35 minutes Subjective Date/time seen: 12/05/24 08:25 Interval history: 78-year-old female history of hypertension, hyperlipidemia, CHF, afib presents from rehab with abnormal labs of increased liver enzymes. Patient is pleasant sitting up comfortably in bed with family at bedside. She has no shortness of breath at time of assessment but does endorse increased work of breathing with activity. She denies associated cough. She continues to endorse soft formed stools. Tolerating her diet well and denies any associated nausea/vomiting or abdominal pain. She has no other complaints denying chest pain, palpitations, and dizziness/lightheadedness. Review of Systems Review of Systems: All systems reviewed & are unremarkable except as noted in HPI and below Exam Narrative: AF HR 70 RR 16 Spo2 94 RA BP 140/50 General: female in no acute respiratory distress who is nontoxic appearing, sitting up in bed HEENT: Normocephalic. Atraumatic. Extraocular movement intact. Sclera clear and anicteric. No facial asymmetry. Chest: Right lung coarse to the lower lobe and left lung diminished on auscultation. Speaking full sentences. CV: Heart was regular rate and rhythm. Abd: Abdomen was soft. Nontender. Nondistended. Positive bowel sounds. Ext: No clubbing, cyanosis. DP pulses bilaterally. Neuro: Patient is alert. Speech is clear. Objective Data Vital Signs Vital Signs: Vital Signs - 24 hr 12/04/24 09:29 12/04/24 09:30 12/04/24 12:00 Temperature Pulse Rate 82 77 Respiratory Rate Blood Pressure Pulse Oximetry 96 Oxygen Delivery Nasal Cannula Oxygen Flow Rate 2.5 12/04/24 16:00 12/04/24 20:00 12/04/24 20:00 Temperature Pulse Rate 69 69 Respiratory Rate Blood Pressure Pulse Oximetry 96 Oxygen Delivery Nasal Cannula Oxygen Flow Rate 2.5 12/04/24 22:00 12/05/24 00:00 12/05/24 02:07 Temperature 98.4 F Pulse Rate 70 57 L 65 Respiratory Rate 18 14 Blood Pressure 143/61 H Pulse Oximetry 97 Oxygen Delivery Oxygen Flow Rate 12/05/24 02:10 12/05/24 04:00 12/05/24 06:00 Temperature 98.6 F Pulse Rate 65 61 97 Respiratory Rate 14 16 Blood Pressure 140/50 L Pulse Oximetry 95 94 Oxygen Delivery Nasal Cannula Oxygen Flow Rate 2 12/05/24 07:18 Temperature Pulse Rate 68 Respiratory Rate 14 Blood Pressure Pulse Oximetry Oxygen Delivery Oxygen Flow Rate Intake/Output Intake/Output: Intake & Output 12/02/24 12/03/24 12/04/24 12/05/24 23:59 23:59 23:59 23:59 Intake Total 1460 1260 1340 400 Output Total 1275 2500 3870 1999 Balance 142 -1998 -1678 -1629 Meds/Results Medications: Active Medications Generic Name Dose Route Start Last Admin Trade Name Freq PRN Reason Stop Dose Admin Acetaminophen 650 mg 11/30/24 16:31 Acetaminophen 325 Mg Tablet PO Q4H PRN Mild Pain (1-3) or Fever Hydrocodone Bitart/Acetaminophen 1 tab 11/30/24 22:12 Hydrocodone/Acetaminophen (*Crx) 5-325 Mg Tablet PO Q6H PRN Pain 4-6 Albuterol/Ipratropium 3 ml 12/01/24 02:00 12/05/24 07:16 Ipratropium 0.5 Mg/Albuterol Sulfate 2.5 Mg (Base) Ampul.Neb 3 Ml INHALATION 3 ml Q6HRT KEVIN Administration Alprazolam 0.25 mg 11/30/24 22:12 12/04/24 21:50 Alprazolam (*Crx) 0.25 Mg Tablet PO 0.25 mg QHS PRN Administration Anxiety Amlodipine Besylate 10 mg 12/04/24 09:00 12/04/24 09:30 Amlodipine Besylate 10 Mg Tablet PO 10 mg DAILY KEVIN Administration Apixaban 2.5 mg 12/03/24 21:00 12/04/24 21:50 Apixaban 2.5 Mg Tablet PO 2.5 mg Q12HR KEVIN Administration Atorvastatin Calcium 10 mg 12/01/24 09:00 12/04/24 09:30 Atorvastatin 10 Mg Tablet PO 10 mg DAILY KEVIN Administration Calcium Carbonate 500 mg 12/01/24 08:00 12/04/24 16:37 Calcium/Vitamin D 500 Mg/5 Mcg (200 I.U.) Tablet PO 500 mg BIDWM KEVIN Administration Cyclosporine 1 drop 11/30/24 22:15 12/04/24 21:50 Cyclosporine 0.4 Ml Ophth Solution EACH EYE 1 drop Q12HR KEVIN Administration Docusate Sodium 100 mg 11/30/24 16:31 Docusate Sodium 100 Mg Capsule PO BID PRN Constipation Furosemide 40 mg 12/04/24 09:00 12/04/24 09:29 Furosemide Inj 40 Mg/4 Ml Vial IV PUSH 40 mg DAILY KEVIN Administration Magnesium Oxide 400 mg 12/01/24 09:00 12/04/24 09:30 Magnesium Oxide 400 Mg Tablet PO 400 mg QAM KEVIN Administration Metoprolol Tartrate 50 mg 12/01/24 09:00 12/04/24 21:50 Metoprolol Tartrate 50 Mg Tab PO 50 mg Q12HR KEVIN Administration Sodium Chloride 1 spray 11/30/24 22:12 Saline 0.65% Rodrigo Soln 44 Ml Btl NASAL Q6HR PRN Congestion Sodium Chloride 1,500 mg 12/01/24 09:00 12/04/24 16:37 Sodium Chloride 500 Mg Tablet PO 1,500 mg BID KEVIN Administration Tamsulosin HCl 0.4 mg 12/01/24 09:00 12/04/24 09:30 Tamsulosin Hcl 0.4 Mg Capsule PO 0.4 mg QAM KEVIN Administration Trazodone HCl 50 mg 11/30/24 23:46 12/04/24 21:50 Trazodone Hcl 50 Mg Tablet PO 50 mg HS PRN Administration Insomnia Vancomycin HCl 125 mg 12/13/24 09:00 Vancomycin Hcl 125 Mg Oral Capsule PO 12/19/24 10:00 [address] [facility] Vancomycin HCl 125 mg 12/20/24 09:00 Vancomycin Hcl 125 Mg Oral Capsule PO 01/01/25 10:00 Q48H [facility] Vancomycin HCl 125 mg 12/01/24 06:00 12/05/24 05:25 Vancomycin Hcl 125 Mg Oral Capsule PO 12/05/24 23:00 125 mg Q8HR KEVIN Administration Vancomycin HCl 125 mg 12/06/24 09:00 Vancomycin Hcl 125 Mg Oral Capsule PO 12/12/24 22:00 Q12HR [facility] Radiology Results: ITS Impressions Chest/Abdomen/Pelvis CT 11/30/24 15:30 IMPRESSION: 1. No significant change in a moderate-sized bilateral pleural effusions with complete collapse of the right lower lobe, partial collapse of the left lower lobe and additional mild dependent atelectasis in the remaining lobes of both lungs. 2. Radiographically uncomplicated colitis versus more likely descending colon diverticulitis. 3. Small amount of scattered ascites with no organized abscess or free intraperitoneal gas. 4. No interval change in 3 simple appearing cystic lesions at the body and tail the pancreas measuring up to 1.4 cm. The differential diagnosis includes pseudocyst, intraductal papillary mucinous neoplasm (IPMN), mucinous cystic neoplasm (MCN), and the less common serous cystadenoma and neuroendocrine tumor. Correlate for history of pancreatitis. Recommend 2 year follow-up pre and postcontrast MRI. 5. 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 Thoracentesis Ultrasound 12/01/24 10:20 IMPRESSION: 1. Successful ultrasound-guided thoracentesis yielding 450 mL of clear straw- colored fluid. Chest X-Ray 12/04/24 07:53 IMPRESSION: 1. Persistent opacities in bilateral lower lung zones which could represent very small bilateral pleural effusions and associated basilar atelectasis and/or pneumonia. Labs Labs: Laboratory Results - last 24 hr 12/01/24 12/05/24 09:50 05:08 WBC 7.4 RBC 2.48 L Hgb 7.4 L Hct 23.4 L MCV 94.4 MCH 29.8 MCHC 31.6 L RDW 14.6 H Plt Count 200 MPV 9.8 Sodium 131 L Potassium 3.4 Chloride 92 L Carbon Dioxide 35 H Anion Gap 4 BUN 20 H Creatinine 1.09 H Estim Creat Clear Calc 37 Estimated GFR 49 L Glucose 111 H Calcium 7.7 L Total Bilirubin 0.4 AST 179 H ALT 317 H Alkaline Phosphatase 106 Total Protein 5.0 L Albumin 2.5 L Pleural Neutrophils 4 Quality VTE Prophylaxis VTE prophylaxis: mechanical ordered and pharmacologic ordered
[2024-12-05] MEDS: METOPROLOL TARTRATE 50 MG TAB PO ×2 (09:20→20:55)
[2024-12-05] MEDS: MAGNESIUM OXIDE 400 MG TABLET PO (09:20)
[2024-12-05] MEDS: ATORVASTATIN 10 MG TABLET PO (09:21)
[2024-12-05] MEDS: SODIUM CHLORIDE 500 MG TABLET 1500 MG PO ×2 (09:21→17:05)
[2024-12-05] MEDS: cycloSPORINE 0.4 ML OPHTH SOLUTION 1 DROP EACH EYE ×2 (09:21→20:55)
[2024-12-05] MEDS: FUROSEMIDE INJ 40 MG/4 ML VIAL IV PUSH (09:21)
[2024-12-05] MEDS: CALCIUM/VITAMIN D 500 MG/5 MCG (200 I.U.) TABLET PO ×2 (09:21→17:05)
[2024-12-05] MEDS: APIXABAN 2.5 MG TABLET PO ×2 (09:21→20:55)
[2024-12-05] MEDS: TAMSULOSIN HCL 0.4 MG CAPSULE PO (09:21)
[2024-12-05 16:08] LABS: ANA by IFA Rfx Titer/Pattern Positive (.)
[2024-12-05] MEDS: ALPRAZolam (*CRX) 0.25 MG TABLET PO (20:55)
[2024-12-06] VITALS (13 sets, daily range): BP systolic 134–138; BP diastolic 44–46; PULSE 65–84; RESP 16–20; TEMP 36.2–36.7; O2SAT 86–95
[2024-12-06 05:48] LABS: Hematocrit 24.6 % (37.0-47.0); Hemoglobin 7.8 g/dL (12.0-15.0); Mean Corpuscular HGB Conc 31.7 g/dl (32-36); Mean Corpuscular Hemoglobin 29.7 pg (26-34); Mean Corpuscular Volume 93.5 fl (80-100); Platelet Count Result 245 k/mm3 (150-375); Red Blood Count 2.63 M/mm3 (4.2-5.4); White Blood Count 9.4 K/mm3 (4.5-10.0)
[2024-12-06 06:24] LABS: Alanine Aminotransferase 243 U/L (6-35); Albumin Level 2.6 g/dL (3.5-5.1); Alkaline Phosphatase 127 U/L (38-126); Anion Gap 4 mmol/L (4-12); Aspartate Amino Transferase 122 U/L (14-36); Bilirubin,Total 0.6 mg/dL (0.2-1.3); Blood Urea Nitrogen 17 mg/dL (7-17); Calcium 8.2 mg/dL (8.4-10.2); Carbon Dioxide 35 mmol/L (22-30); Chloride 92 mmol/L (98-107); Estimated CRCL calculation 39 ml/min; Estimated Glomerular Filt Rate 52; Glucose 118 mg/dL (65-110); Potassium 3.3 mmol/L (3.4-5.0); Sodium 131 mmol/L (137-145); Total Protein 5.2 g/dL (6.3-8.2)
[2024-12-06] MEDS: SODIUM CHLORIDE 500 MG TABLET 1500 MG PO ×2 (09:27→18:02)
[2024-12-06] MEDS: MAGNESIUM OXIDE 400 MG TABLET PO (09:27)
[2024-12-06] MEDS: APIXABAN 2.5 MG TABLET PO ×2 (09:27→21:16)
[2024-12-06] MEDS: METOPROLOL TARTRATE 50 MG TAB PO ×2 (09:27→21:16)
[2024-12-06] MEDS: ATORVASTATIN 10 MG TABLET PO (09:27)
[2024-12-06] MEDS: CALCIUM/VITAMIN D 500 MG/5 MCG (200 I.U.) TABLET PO ×2 (09:27→18:03)
[2024-12-06] MEDS: TAMSULOSIN HCL 0.4 MG CAPSULE PO (09:28)
[2024-12-06] MEDS: FUROSEMIDE INJ 40 MG/4 ML VIAL IV PUSH (09:28)
[2024-12-06] MEDS: VANCOMYCIN HCL 125 MG ORAL CAPSULE PO ×2 (09:28→21:16)
[2024-12-06] MEDS: cycloSPORINE 0.4 ML OPHTH SOLUTION 1 DROP EACH EYE ×2 (09:28→21:16)
--- NOTE | 2024-12-06 11:43 | P.PNIM_ITS ---
Progress Note: A&P Assessment and Plan (1) Respiratory failure with hypoxia: Code(s): J96.91 - Respiratory failure, unspecified with hypoxia Status: Acute Assessment and Plan: - Oxygen supplementation: weaned to room air with stable saturations, maintain spo2 > 90 - Suspected cause: likely related to ongoing pleural effusions - CT chest/abdomen/pelvis showed no significant change in a moderate-sized bilateral pleural effusions with complete collapse of the right lower lobe, partial collapse of the left lower lobe and additional mild dependent atelectasis in the remaining lobes of both lungs. - See plan below (2) Pleural effusion: Code(s): J90 - Pleural effusion, not elsewhere classified Status: Acute Assessment and Plan: Does not appear infectious in nature. pH > 7.5 and no organisms seen on gram stain. WBC WNL and afebrile. Prior effusion noninfectious on 11/08. - BNP: 837 - CT chest/abdomen/pelvis showed no significant change in a moderate-sized bilateral pleural effusions with complete collapse of the right lower lobe, partial collapse of the left lower lobe and additional mild dependent atelectasis in the remaining lobes of both lungs. - Echo 11/07: Concentric left ventricular hypertrophy with hyperdynamic systolic function and grade I diastolic dysfunction - Thoracentesis on 12/01 with 450 ml clear straw color fluid removed. - Jose hose ordered for bilateral lower ext. edema - Lasix 40 mg IV daily - Monitor vital signs, I&Os, BUN/creatinine, daily weights, neuro status and patient is a fall risk - Monitor serum electrolytes, Keep serum Potassium>4 and serum Magnesium>2 and CBC CXR on 12/04 showed persistent opacities in bilateral lower lung zones which could represent very small bilateral pleural effusions and associated basilar atelectasis and/or pneumonia. Likely atelectasis 2/2 effusions as patient remains afebrile, no cough and shortness of breath improving with lasix Will continue to hold antibiotics at this time Continue IV lasix daily, renal function stable Lungs sounds improving on assessment. Weaned to room air today. Consider a CT tomorrow pending assessment to better evaluate the progression of the effusions will order CT chest for re eval. will consider pulm consult as well if needed (3) Elevated liver enzymes: Code(s): R74.8 - Abnormal levels of other serum enzymes Status: Acute Assessment and Plan: LFTs appear to have been uptrending since 11/25, peaked with an AST 902 and ALT 608 on 11/30 and continue to downtrend on am labs Tot bili and alk phos remain WNL Hepatitis panel negative CT chest/abdomen/pelvis showed a normal liver but a small amount of scattered ascites with no organized abscess or free intraperitoneal gas GI consulted * Clinical presentation likely related to hypoxic/ischemic injury, especially following episodes of acute respiratory failure or fluid overload in combination with underlying cirrhosis LFTs continue to downtrend on labs. (4) Pancolitis: Code(s): K52.9 - Noninfective gastroenteritis and colitis, unspecified Status: Acute Assessment and Plan: CT chest/abdomen/pelvis showed uncomplicated colitis vs more likely descending colon diverticulitis Patient had a positive C diff test on 11/09/2024 Evaluated by ID at that time and was discharged on a vancomycin taper which has been continued on admission Patient denies any abdominal pain, nausea/vomiting and diarrhea. Per GI plan to discuss outpatient colonoscopy a follow-up visit Patient continues to have soft formed stools. Denies nausea/vomiting and abdominal pain. (5) A-fib: Code(s): I48.91 - Unspecified atrial fibrillation Status: Acute Assessment and Plan: - EKG: Sinus rhythm HR 66 - metoprolol 50 mg BID and eliquis 2.5 mg BID (6) Bladder distension: Code(s): N32.89 - Other specified disorders of bladder Status: Acute Assessment and Plan: Hydronephrosis and distended bladder on CT UA nonconcerning for acute infection Denies any UTI like symptoms Bladder scan if over 400 place Holland catheter while aggressively diuresing Will attempt a voiding trial today. (7) Hypertension: Code(s): I10 - Essential (primary) hypertension Status: Chronic Assessment and Plan: Chronic - holding hydralazine 50 mg qid, lisinopril 40 mg daily, resume as appropriate - metoprolol 50 mg bid - amlodipine 10 mg daily - lasix 40 mg IV daily - blood pressures reviewed and remain stable, continue to monitor (8) Anemia: Code(s): D64.9 - Anemia, unspecified Status: Acute Assessment and Plan: Iron panel 11/21: total iron 17, TIBC 180, iron saturation 9%, ferritin 162. No signs of active GI bleeding. Repeat Iron panel appears to be anemia of chronic disease Per GI, plan to discuss in the office outpatient if further evaluation and need for endoscopic evaluation to rule out GI source of blood loss or malabsorption (9) Anxiety: Code(s): F41.9 - Anxiety disorder, unspecified Status: Acute Assessment and Plan: Continue Xanax prn (10) Hypokalemia: Code(s): E87.6 - Hypokalemia Status: Acute Assessment and Plan: K 3.3- will order replacement Time Spent With Patient Time with patient: 25 - 35 minutes Subjective Date/time seen: 12/06/24 11:43 Interval history: 78-year-old female history of hypertension, hyperlipidemia, CHF, afib presents from rehab with abnormal labs of increased liver enzymes. Patient is pleasant sitting up comfortably in bed with family at bedside. She has no shortness of breath at time of assessment but does endorse increased work of breathing with activity. She denies associated cough. She continues to endorse soft formed stools. Tolerating her diet well and denies any associated nausea/vomiting or abdominal pain. She has no other complaints denying chest pain, palpitations, and dizziness/lightheadedness. Pt is seen and examined. She is breathing betetr but still get very sob with any excerption.Very weak too, working with PT/OT. Review of Systems Review of Systems: 12 systems were reviewed and are negativ e except for as per HPI. All systems reviewed & are unremarkable except as noted in HPI and below Exam Narrative: AF HR 70 RR 16 Spo2 94 RA BP 140/50 General: female in no acute respiratory distress who is nontoxic appearing, sitting up in bed HEENT: Normocephalic. Atraumatic. Extraocular movement intact. Sclera clear and anicteric. No facial asymmetry. Chest: Right lung coarse to the lower lobe and left lung diminished on auscultation. Speaking full sentences. CV: Heart was regular rate and rhythm. Abd: Abdomen was soft. Nontender. Nondistended. Positive bowel sounds. Ext: No clubbing, cyanosis. DP pulses bilaterally. Neuro: Patient is alert. Speech is clear. Objective Data Vital Signs Vital Signs: Vital Signs - 24 hr 12/05/24 12:06 12/05/24 13:13 12/05/24 14:00 Temperature 98.1 F Pulse Rate 65 70 71 Respiratory Rate 16 16 Blood Pressure 133/46 L Pulse Oximetry 92 Oxygen Delivery Fraction of Inspired Oxygen 12/05/24 16:05 12/05/24 19:40 12/05/24 19:44 Temperature Pulse Rate 63 72 72 Respiratory Rate 16 16 Blood Pressure Pulse Oximetry 92 Oxygen Delivery Room Air Fraction of Inspired Oxygen 21 12/05/24 20:00 12/05/24 20:00 12/05/24 21:01 Temperature 97.6 F Pulse Rate 68 77 Respiratory Rate 18 Blood Pressure 151/50 H Pulse Oximetry 95 93 Oxygen Delivery Room Air Fraction of Inspired Oxygen 12/06/24 00:00 12/06/24 04:00 12/06/24 06:00 Temperature 97.1 F L Pulse Rate 75 75 73 Respiratory Rate 18 Blood Pressure 134/44 L Pulse Oximetry 92 Oxygen Delivery Fraction of Inspired Oxygen 12/06/24 09:27 12/06/24 09:30 Temperature Pulse Rate 73 Respiratory Rate Blood Pressure Pulse Oximetry Oxygen Delivery Room Air Fraction of Inspired Oxygen Intake/Output Intake/Output: Intake & Output 12/03/24 12/04/24 12/05/24 12/06/24 23:59 23:59 23:59 23:59 Intake Total 1260 1340 1140 240 Output Total 2500 3870 3000 350 [facility] -1240 -2530 -1860 -110 Meds/Results Medications: Active Medications Generic Name Dose Route Start Last Admin Trade Name Freq PRN Reason Stop Dose Admin Acetaminophen 650 mg 11/30/24 16:31 Acetaminophen 325 Mg Tablet PO Q4H PRN Mild Pain (1-3) or Fever Hydrocodone Bitart/Acetaminophen 1 tab 11/30/24 22:12 Hydrocodone/Acetaminophen (*Crx) 5-325 Mg Tablet PO Q6H PRN Pain 4-6 Albuterol/Ipratropium 3 ml 12/01/24 02:00 12/05/24 19:39 Ipratropium 0.5 Mg/Albuterol Sulfate 2.5 Mg (Base) Ampul.Neb 3 Ml INHALATION 3 ml Q6HRT KEVIN Administration Alprazolam 0.25 mg 11/30/24 22:12 12/05/24 20:55 Alprazolam (*Crx) 0.25 Mg Tablet PO 0.25 mg QHS PRN Administration Anxiety Amlodipine Besylate 10 mg 12/04/24 09:00 12/06/24 09:27 Amlodipine Besylate 10 Mg Tablet PO 10 mg DAILY KEVIN Administration Apixaban 2.5 mg 12/03/24 21:00 12/06/24 09:27 Apixaban 2.5 Mg Tablet PO 2.5 mg Q12HR KEVIN Administration Atorvastatin Calcium 10 mg 12/01/24 09:00 12/06/24 09:27 Atorvastatin 10 Mg Tablet PO 10 mg DAILY KEVIN Administration Calcium Carbonate 500 mg 12/01/24 08:00 12/06/24 09:27 Calcium/Vitamin D 500 Mg/5 Mcg (200 I.U.) Tablet PO 500 mg BIDWM KEVIN Administration Cyclosporine 1 drop 11/30/24 22:15 12/06/24 09:28 Cyclosporine 0.4 Ml Ophth Solution EACH EYE 1 drop Q12HR KEVIN Administration Docusate Sodium 100 mg 11/30/24 16:31 Docusate Sodium 100 Mg Capsule PO BID PRN Constipation Furosemide 40 mg 12/04/24 09:00 12/06/24 09:28 Furosemide Inj 40 Mg/4 Ml Vial IV PUSH 40 mg DAILY KEVIN Administration Magnesium Oxide 400 mg 12/01/24 09:00 12/06/24 09:27 Magnesium Oxide 400 Mg Tablet PO 400 mg QAM KEVIN Administration Metoprolol Tartrate 50 mg 12/01/24 09:00 12/06/24 09:27 Metoprolol Tartrate 50 Mg Tab PO 50 mg Q12HR KEVIN Administration Potassium Chloride 40 meq 12/06/24 11:40 Potassium Chloride 20 Meq Packet (For Liquid) PO DAILY [facility] Sodium Chloride 1 spray 11/30/24 22:12 Saline 0.65% Rodrigo Soln 44 Ml Btl NASAL Q6HR PRN Congestion Sodium Chloride 1,500 mg 12/01/24 09:00 12/06/24 09:27 Sodium Chloride 500 Mg Tablet PO 1,500 mg BID KEVIN Administration Tamsulosin HCl 0.4 mg 12/01/24 09:00 12/06/24 09:28 Tamsulosin Hcl 0.4 Mg Capsule PO 0.4 mg QAM KEVIN Administration Trazodone HCl 50 mg 11/30/24 23:46 12/05/24 20:55 Trazodone Hcl 50 Mg Tablet PO 50 mg HS PRN Administration Insomnia Vancomycin HCl 125 mg 12/13/24 09:00 Vancomycin Hcl 125 Mg Oral Capsule PO 12/19/24 10:00 DAILY KEVIN Vancomycin HCl 125 mg 12/20/24 09:00 Vancomycin Hcl 125 Mg Oral Capsule PO 01/01/25 10:00 Q48H KEVIN Vancomycin HCl 125 mg 12/06/24 09:00 12/06/24 09:28 Vancomycin Hcl 125 Mg Oral Capsule PO 12/12/24 22:00 125 mg Q12HR KEVIN Administration Radiology Results: ITS Impressions Chest/Abdomen/Pelvis CT 11/30/24 15:30 IMPRESSION: 1. No significant change in a moderate-sized bilateral pleural effusions with complete collapse of the right lower lobe, partial collapse of the left lower lobe and additional mild dependent atelectasis in the remaining lobes of both lungs. 2. Radiographically uncomplicated colitis versus more likely descending colon diverticulitis. 3. Small amount of scattered ascites with no organized abscess or free intraperitoneal gas. 4. No interval change in 3 simple appearing cystic lesions at the body and tail the pancreas measuring up to 1.4 cm. The differential diagnosis includes pseudocyst, intraductal papillary mucinous neoplasm (IPMN), mucinous cystic neoplasm (MCN), and the less common serous cystadenoma and neuroendocrine tumor. Correlate for history of pancreatitis. Recommend 2 year follow-up pre and postcontrast MRI. 5. 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 Thoracentesis Ultrasound 12/01/24 10:20 IMPRESSION: 1. Successful ultrasound-guided thoracentesis yielding 450 mL of clear straw- colored fluid. Chest X-Ray 12/04/24 07:53 IMPRESSION: 1. Persistent opacities in bilateral lower lung zones which could represent very small bilateral pleural effusions and associated basilar atelectasis and/or pneumonia. Labs Labs: Laboratory Results - last 24 hr 12/01/24 12/01/24 12/06/24 05:39 09:50 05:29 WBC 9.4 RBC 2.63 L Hgb 7.8 L Hct 24.6 L MCV 93.5 MCH 29.7 MCHC 31.7 L RDW 14.6 H Plt Count 245 MPV 9.7 Sodium 131 L Potassium 3.3 L Chloride 92 L Carbon Dioxide 35 H Anion Gap 4 BUN 17 Creatinine 1.03 H Estim Creat Clear Calc 39 Estimated GFR 52 L Glucose 118 H Calcium 8.2 L Total Bilirubin 0.6 AST 122 H ALT 243 H Alkaline Phosphatase 127 H Total Protein 5.2 L Albumin 2.6 L Fluid Cholesterol 58 PETER Screen Positive A PETER Homogeneous Pattern 1:320 H PETER Comment Comment Quality VTE Prophylaxis VTE prophylaxis: mechanical ordered and pharmacologic ordered
[2024-12-06] MEDS: POTASSIUM CHLORIDE 20 MEQ ER TABLET 40 MEQ PO (14:25)
--- NOTE | 2024-12-06 17:32 | PCRCNOTE ---
Breathing treatments not completed at 0800 and 1400 due to RT being unavailable.
[2024-12-06] MEDS: IPRATROPIUM 0.5 MG/ALBUTEROL SULFATE 2.5 MG (BASE) AMPUL.NEB 3 ML INHALATION (19:05)
[2024-12-06] MEDS: ALPRAZolam (*CRX) 0.25 MG TABLET PO (21:16)
[2024-12-07] VITALS (14 sets, daily range): BP systolic 118–137; BP diastolic 45–83; PULSE 72–75; RESP 16–20; TEMP 36.4–37.1; O2SAT 91–94; BMI 28.8
--- NOTE | 2024-12-07 03:04 | PCRCNOTE ---
Patient requested no 0200 treatment, preferring sleep. Clinical presentation has been much improved over the last days, including being on room air, and appreciating feeling better.
[2024-12-07] MEDS: IPRATROPIUM 0.5 MG/ALBUTEROL SULFATE 2.5 MG (BASE) AMPUL.NEB 3 ML INHALATION ×3 (07:31→20:35)
[2024-12-07] MEDS: cycloSPORINE 0.4 ML OPHTH SOLUTION 1 DROP EACH EYE ×2 (09:16→22:07)
[2024-12-07] MEDS: CALCIUM/VITAMIN D 500 MG/5 MCG (200 I.U.) TABLET PO ×2 (09:16→17:12)
[2024-12-07] MEDS: FUROSEMIDE INJ 40 MG/4 ML VIAL IV PUSH (09:17)
[2024-12-07] MEDS: MAGNESIUM OXIDE 400 MG TABLET PO (09:17)
[2024-12-07] MEDS: METOPROLOL TARTRATE 50 MG TAB PO ×2 (09:17→22:06)
[2024-12-07] MEDS: TAMSULOSIN HCL 0.4 MG CAPSULE PO (09:17)
[2024-12-07] MEDS: ATORVASTATIN 10 MG TABLET PO (09:17)
[2024-12-07] MEDS: SODIUM CHLORIDE 500 MG TABLET 1500 MG PO ×2 (09:17→17:12)
[2024-12-07] MEDS: VANCOMYCIN HCL 125 MG ORAL CAPSULE PO ×2 (09:18→22:07)
[2024-12-07 11:15] LABS: Hematocrit 26.5 % (37.0-47.0); Hemoglobin 8.3 g/dL (12.0-15.0); Mean Corpuscular HGB Conc 31.3 g/dl (32-36); Mean Corpuscular Hemoglobin 29.4 pg (26-34); Mean Corpuscular Volume 94.0 fl (80-100); Platelet Count Result 280 k/mm3 (150-375); Red Blood Count 2.82 M/mm3 (4.2-5.4); White Blood Count 8.7 K/mm3 (4.5-10.0)
[2024-12-07 11:39] LABS: Anion Gap 5 mmol/L (4-12); Blood Urea Nitrogen 19 mg/dL (7-17); Calcium 8.2 mg/dL (8.4-10.2); Carbon Dioxide 35 mmol/L (22-30); Chloride 91 mmol/L (98-107); Estimated CRCL calculation 35 ml/min; Estimated Glomerular Filt Rate 47; Glucose 151 mg/dL (65-110); Potassium 3.7 mmol/L (3.4-5.0); Sodium 131 mmol/L (137-145)
--- NOTE | 2024-12-07 12:50 | PM.IMPN ---
Progress Note: A&P Assessment and Plan (1) Hypertension: Code(s): I10 - Essential (primary) hypertension Status: Chronic (2) A-fib: Code(s): I48.91 - Unspecified atrial fibrillation Status: Acute (3) Hyponatremia: Code(s): E87.1 - Hypo-osmolality and hyponatremia Status: Acute (4) Elevated liver enzymes: Code(s): R74.8 - Abnormal levels of other serum enzymes Status: Acute (5) Cirrhosis: Code(s): K74.60 - Unspecified cirrhosis of liver Status: Acute (6) Hypokalemia: Code(s): E87.6 - Hypokalemia Status: Acute (7) Bladder distension: Code(s): N32.89 - Other specified disorders of bladder Status: Acute (8) Clostridium difficile colitis: Code(s): A04.72 - Enterocolitis due to Clostridium difficile, not specified as recurrent Status: Acute Plan 78-year-old female with past medical history of, hyperlipidemia, chronic pleural effusions, CHF presented from rehab with abnormal labs of increased liver enzymes. Patient had a prolonged course at [facility] due to congestive heart failure with fluid overload pleural effusions and new AFib with RVR. She was discharged to rehab. Presented within 24 hours. Lab work showed hemoglobin 9.3, sodium of 129, potassium of 3.0, , AST of 785, ALT of 667, troponin negative, BNP 837, protein 5.3, albumin 2.8, CT shows moderate-sized bilateral pleural effusions with complete collapse of the right lower lobe, partial collapse of the left lower lobe and additional mild dependent atelectasis in the remaining lobes of both lungs, colitis versus more likely descending colon diverticulitis, ascites,Simple appearing likely benign 2.4 x 1.4 cm cyst in the anterior mediastinum which could represent a thymic, pericardial or foregut duplication cyst, and stable cystic lesions in the pancreas. Patient received Lasix and potassium in the ER, admitted for further workup. Status post thoracentesis, 450 cc of fluid was removed. GI was consulted for transaminitis, which continues to improve, likely from fluid overload. (1) acute Respiratory failure with hypoxia: Continues to be on 1 L of O2 support Status post thoracentesis as mentioned above Does not appear to be infectious, pH greater than 7.5 Echo done in October of this year shows concentric left ventricular hypertrophy with hyperdynamic systolic function and grade 1 diastolic dysfunction Continue with bronchodilators Continue with IV Lasix Pulmonary consult Supplement potassium Strict I's and O's 2. Elevated liver enzymes: Trending down Total bilirubin is normal Hepatitis panel was negative CT chest abdomen pelvis showed normal liver but small amount of scattered ascites with no organized abscess or free intraperitoneal gas clinical presentation likely related to hypoxic/ischemic injury following episode of acute respiratory failure or fluid overload in combination with underlying cirrhosis Appreciate GI help 3. Aaron colitis: CT chest abdomen pelvis showed uncomplicated colitis versus likely descending colon diverticulitis Patient tested positive for C diff on 11/09/2024 Currently patient on oral vancomycin taper Outpatient colonoscopy by GI at some point in near future Continues to have formed stools 4. A-fib: Continue with metoprolol b.i.d. Continue with Eliquis 2.5 mg b.i.d. 5. Bladder distension: Holland has been removed 6. Hypertension: Continue with Norvasc, metoprolol Continue with Lasix Hydralazine, lisinopril are on hold 7. Anemia: Iron panel 11/21: total iron 17, TIBC 180, iron saturation 9%, ferritin 162. No signs of active GI bleeding. Repeat Iron panel appears to be anemia of chronic disease Per GI, plan to discuss in the office outpatient if further evaluation and need for endoscopic evaluation to rule out GI source of blood loss or malabsorption 8. Anxiety: Continue Xanax prn 9. Chronic hyponatremia: Continue with sodium chloride supplementation 10. DVT prophylaxis: Eliquis 11. Code status: Full 12. Disposition: Pending improvement Time Spent With Patient Time: 39 minutes Subjective Date/time seen: 12/07/24 12:50 Interval history: Continues to be on O2 support, no acute events overnight Review of Systems Review of Systems: All systems reviewed & are unremarkable except as noted in HPI and below Exam Narrative: General: No acute distress, on nasal cannula HEENT: Normocephalic. Atraumatic. Chest: Decreased breath sounds bilaterally, no added sounds heard CV: Heart was regular rate and rhythm. Abd: Abdomen was soft. Nontender. Nondistended. Positive bowel sounds. Ext: No clubbing, cyanosis. DP pulses bilaterally. Neuro: Patient is alert. Speech is clear. Objective Data Vital Signs Vital Signs: Vital Signs - 24 hr 12/06/24 14:00 12/06/24 14:10 12/06/24 14:10 Temperature 97.6 F Pulse Rate 73 Respiratory Rate 18 Blood Pressure 138/44 L Pulse Oximetry 86 L 90 90 Oxygen Delivery Nasal Cannula Nasal Cannula Oxygen Flow Rate 1 1 12/06/24 16:12 12/06/24 19:05 12/06/24 19:05 Temperature Pulse Rate 81 81 Respiratory Rate 16 20 Blood Pressure Pulse Oximetry 95 92 Oxygen Delivery Nasal Cannula Oxygen Flow Rate 1 12/06/24 19:15 12/06/24 20:00 12/06/24 21:02 Temperature 98.1 F Pulse Rate 84 82 Respiratory Rate 20 20 Blood Pressure 136/46 L Pulse Oximetry 93 91 Oxygen Delivery Nasal Cannula Oxygen Flow Rate 2 12/07/24 05:13 12/07/24 07:33 12/07/24 07:39 Temperature 97.6 F Pulse Rate 72 75 72 Respiratory Rate 18 20 20 Blood Pressure 118/83 Pulse Oximetry 93 Oxygen Delivery Oxygen Flow Rate 12/07/24 07:40 12/07/24 09:17 12/07/24 09:20 Temperature Pulse Rate 75 75 Respiratory Rate Blood Pressure Pulse Oximetry 91 91 Oxygen Delivery Nasal Cannula Nasal Cannula Oxygen Flow Rate 1 1 Intake/Output Intake/Output: Intake & Output 12/04/24 12/05/24 12/06/24 12/07/24 23:59 23:59 23:59 23:59 Intake Total 1340 1140 720 680 Output Total 3870 3000 1550 400 Balance -2530 -1860 -830 280 Meds/Results Medications: Active Medications Generic Name Dose Route Start Last Admin Trade Name Freq PRN Reason Stop Dose Admin Acetaminophen 650 mg 11/30/24 16:31 Acetaminophen 325 Mg Tablet PO Q4H PRN Mild Pain (1-3) or Fever Hydrocodone Bitart/Acetaminophen 1 tab 11/30/24 22:12 Hydrocodone/Acetaminophen (*Crx) 5-325 Mg Tablet PO Q6H PRN Pain 4-6 Albuterol/Ipratropium 3 ml 12/01/24 02:00 12/07/24 07:31 Ipratropium 0.5 Mg/Albuterol Sulfate 2.5 Mg (Base) Ampul.Neb 3 Ml INHALATION 3 ml Q6HRT KEVIN Administration Alprazolam 0.25 mg 11/30/24 22:12 12/06/24 21:16 Alprazolam (*Crx) 0.25 Mg Tablet PO 0.25 mg QHS PRN Administration Anxiety Amlodipine Besylate 10 mg 12/04/24 09:00 12/07/24 09:17 Amlodipine Besylate 10 Mg Tablet PO 10 mg DAILY KEVIN Administration Apixaban 2.5 mg 12/03/24 21:00 12/07/24 09:54 Apixaban 2.5 Mg Tablet PO Not Given Q12HR KEVIN Atorvastatin Calcium 10 mg 12/01/24 09:00 12/07/24 09:17 Atorvastatin 10 Mg Tablet PO 10 mg DAILY KEVIN Administration Calcium Carbonate 500 mg 12/01/24 08:00 12/07/24 09:16 Calcium/Vitamin D 500 Mg/5 Mcg (200 I.U.) Tablet PO 500 mg BIDWM KEVIN Administration Cyclosporine 1 drop 11/30/24 22:15 12/07/24 09:16 Cyclosporine 0.4 Ml Ophth Solution EACH EYE 1 drop Q12HR KEVIN Administration Docusate Sodium 100 mg 11/30/24 16:31 Docusate Sodium 100 Mg Capsule PO BID PRN Constipation Furosemide 40 mg 12/04/24 09:00 12/07/24 09:17 Furosemide Inj 40 Mg/4 Ml Vial IV PUSH 40 mg DAILY KEVIN Administration Magnesium Oxide 400 mg 12/01/24 09:00 12/07/24 09:17 Magnesium Oxide 400 Mg Tablet PO 400 mg QAM KEVIN Administration Metoprolol Tartrate 50 mg 12/01/24 09:00 12/07/24 09:17 Metoprolol Tartrate 50 Mg Tab PO 50 mg Q12HR KEVIN Administration Sodium Chloride 1 spray 11/30/24 22:12 Saline 0.65% Rodrigo Soln 44 Ml Btl NASAL Q6HR PRN Congestion Sodium Chloride 1,500 mg 12/01/24 09:00 12/07/24 09:17 Sodium Chloride 500 Mg Tablet PO 1,500 mg BID KEVIN Administration Tamsulosin HCl 0.4 mg 12/01/24 09:00 12/07/24 09:17 Tamsulosin Hcl 0.4 Mg Capsule PO 0.4 mg QAM KEVIN Administration Trazodone HCl 50 mg 11/30/24 23:46 12/06/24 21:16 Trazodone Hcl 50 Mg Tablet PO 50 mg HS PRN Administration Insomnia Vancomycin HCl 125 mg 12/13/24 09:00 Vancomycin Hcl 125 Mg Oral Capsule PO 12/19/24 10:00 DAILY KEVIN Vancomycin HCl 125 mg 12/20/24 09:00 Vancomycin Hcl 125 Mg Oral Capsule PO 01/01/25 10:00 Q48H KEVIN Vancomycin HCl 125 mg 12/06/24 09:00 12/07/24 09:18 Vancomycin Hcl 125 Mg Oral Capsule PO 12/12/24 22:00 125 mg Q12HR KEVIN Administration Radiology Results: ITS Impressions Chest/Abdomen/Pelvis CT 11/30/24 15:30 IMPRESSION: 1. No significant change in a moderate-sized bilateral pleural effusions with complete collapse of the right lower lobe, partial collapse of the left lower lobe and additional mild dependent atelectasis in the remaining lobes of both lungs. 2. Radiographically uncomplicated colitis versus more likely descending colon diverticulitis. 3. Small amount of scattered ascites with no organized abscess or free intraperitoneal gas. 4. No interval change in 3 simple appearing cystic lesions at the body and tail the pancreas measuring up to 1.4 cm. The differential diagnosis includes pseudocyst, intraductal papillary mucinous neoplasm (IPMN), mucinous cystic neoplasm (MCN), and the less common serous cystadenoma and neuroendocrine tumor. Correlate for history of pancreatitis. Recommend 2 year follow-up pre and postcontrast MRI. 5. 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 Thoracentesis Ultrasound 12/01/24 10:20 IMPRESSION: 1. Successful ultrasound-guided thoracentesis yielding 450 mL of clear straw-colored fluid. Chest X-Ray 12/04/24 07:53 IMPRESSION: 1. Persistent opacities in bilateral lower lung zones which could represent very small bilateral pleural effusions and associated basilar atelectasis and/or pneumonia. Chest CT 12/06/24 15:35 IMPRESSION: 1. Small left and moderate-sized right posterior layering pleural effusions. 2. Dependent consolidation and groundglass opacities in the bilateral lower lobes with associated volume loss and favor atelectasis over pneumonia. 3. 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 Labs Labs: Laboratory Results - last 24 hr 12/07/24 10:58 WBC 8.7 RBC 2.82 L Hgb 8.3 L Hct 26.5 L MCV 94.0 MCH 29.4 MCHC 31.3 L RDW 14.9 H Plt Count 280 MPV 9.5 Sodium 131 L Potassium 3.7 Chloride 91 L Carbon Dioxide 35 H Anion Gap 5 BUN 19 H Creatinine 1.13 H Estim Creat Clear Calc 35 Estimated GFR 47 L Glucose 151 H Calcium 8.2 L Quality VTE Prophylaxis VTE prophylaxis: pharmacologic ordered
--- NOTE | 2024-12-07 20:42 | PCRCNOTE ---
Patient asked not to bew waken for 0200 [place].
[2024-12-07] MEDS: ALPRAZolam (*CRX) 0.25 MG TABLET PO (22:07)
--- NOTE | 2024-12-07 22:52 | PC.NURSE ---
Called Dr. Nguyễn at approx. 2150 bc I was told in report pt may have a thoracentesis on 12/08 and I needed to know if pt's Eliquis should be held for the procedure. No orders seen in pt's chart for thoracentesis yet. Dr. Nguyễn was consulted today but had not seen pt yet. Dr. Nguyễn called back at approx. 2250 and said to hold Eliquis until she is able to see the pt and can put orders in tomorrow.
[2024-12-08] VITALS (8 sets, daily range): BP systolic 132–144; BP diastolic 50–54; PULSE 67–80; RESP 17–20; TEMP 36.1–37; O2SAT 92–96
[2024-12-08 05:26] LABS: Hematocrit 23.2 % (37.0-47.0); Hemoglobin 7.4 g/dL (12.0-15.0); Immature Granulocyte Percent A 0.9 % (0-0.5); Lymphocytes Absolute Auto 1.68 K/mm3 (0.9-3.2); Mean Corpuscular HGB Conc 31.9 g/dl (32-36); Mean Corpuscular Hemoglobin 29.7 pg (26-34); Mean Corpuscular Volume 93.2 fl (80-100); Nucleated Red Blood Cells Absolute Auto 0.000 K/mm3 (0.0-0.012); Nucleated Red Blood Cells Perc 0.0 % (0.0-0.2); Platelet Count Result 226 k/mm3 (150-375); Red Blood Count 2.49 M/mm3 (4.2-5.4); White Blood Count 8.0 K/mm3 (4.5-10.0)
[2024-12-08 06:14] LABS: Anion Gap 4 mmol/L (4-12); Blood Urea Nitrogen 21 mg/dL (7-17); Calcium 7.7 mg/dL (8.4-10.2); Carbon Dioxide 33 mmol/L (22-30); Chloride 92 mmol/L (98-107); Estimated CRCL calculation 34 ml/min; Estimated Glomerular Filt Rate 45; Glucose 111 mg/dL (65-110); Potassium 3.3 mmol/L (3.4-5.0); Sodium 129 mmol/L (137-145)
[2024-12-08] MEDS: IPRATROPIUM 0.5 MG/ALBUTEROL SULFATE 2.5 MG (BASE) AMPUL.NEB 3 ML INHALATION (08:15)
[2024-12-08] MEDS: ATORVASTATIN 10 MG TABLET PO (08:50)
[2024-12-08] MEDS: MAGNESIUM OXIDE 400 MG TABLET PO (08:51)
[2024-12-08] MEDS: VANCOMYCIN HCL 125 MG ORAL CAPSULE PO ×2 (08:51→22:06)
[2024-12-08] MEDS: SODIUM CHLORIDE 500 MG TABLET 1500 MG PO ×2 (08:51→17:53)
[2024-12-08] MEDS: TAMSULOSIN HCL 0.4 MG CAPSULE PO (08:51)
[2024-12-08] MEDS: cycloSPORINE 0.4 ML OPHTH SOLUTION 1 DROP EACH EYE ×2 (08:51→22:07)
[2024-12-08] MEDS: FUROSEMIDE INJ 40 MG/4 ML VIAL IV PUSH (08:52)
[2024-12-08] MEDS: METOPROLOL TARTRATE 50 MG TAB PO ×2 (08:52→22:06)
[2024-12-08] MEDS: CALCIUM/VITAMIN D 500 MG/5 MCG (200 I.U.) TABLET PO ×2 (08:52→17:53)
--- NOTE | 2024-12-08 09:47 | PM.CNPUL ---
Assessment and Plan Assessment and plan (1) Pleural effusion: Code(s): J90 - Pleural effusion, not elsewhere classified Status: Acute Assessment and Plan: She has a right pleural effusion tapped Nov 17, 450 mL hazy yellow fluid with exudative findings, no growth on micro, mild increase in pleural fluid wbc, Sept 24 thoracentesis on the Left side was exudative related to her colitis with a component of fluid overload from her acute kidney injury, and the kidney injury is much improved. She tells me that she had another thoracentesis on Left, Nov 7 500 mL fluid removed from the left side, no labs tested. She does not have an underlying pulmonary pathologic process. These fluid results are not event sales representative of a pleural space infection such as parapneumonic infection, empyema, and she does not appear to have pneumonia on the CT scan. With her positive PETER 1:320, recent spike in liver enzymes, swelling, anasarca, I think that she may have a hepatic reason for recurrent effusion. She may have autoimmune hepatitis. She may need need additional antibody testing including ANCA antibodies and anti-smooth muscle antibodies. She is on IV Lasix which is helping reduce edema. She is not able to go to rehab today for this reason, still on IV Lasix. Her RIDGE is better, required 3 HD sessions last month for multifactorial acute kidney injury during an episode of C diff colitis with sepsis, contrast for imaging, atrial flutter requiring cardioversion. Her O2 requirement is low, currently 1 L. saturation is 91-92%. Not sure if she has enough fluid tp remove; her CXR 12/04 is improved, she is on 1 L, thoracentesis will not prevent it from coming back until the underlying cause is treated. Her liver enzymes are normalizing, her kidney the values are improved compared to November 10, BUN was 95 creatinine 4.51, current BUN is 21 creatinine 1.17 with creatinine clearance 45-50. (2) Atelectasis: Code(s): J98.11 - Atelectasis Status: Acute Assessment and Plan: She still has some atelectasis, has been in bed, abdominal swelling is improving, and she has the Cornet valve, encouraged her to continue to use. She has a low oxygen requirement 1 liter/minute with saturation around 90 91%. Plan plan: Delay discharge until she is off IV Lasix. Consider liberalized her fluid intake. She had the lowest Na 118 on Nov 18, now 129. On fluid restriction, really uncomfortable. Is this due to renal issues? heart decompensation? Lateral decubitus films to look for pleural fluid layering. Tapping fluid is only a temporary fix for effusions. Not clear why she has had 2 taps on the Left and one on the Right. These have not been infected, most like are due to combination of kidney, liver and cardiac processes with pancolitis and inflammatory fluid moving from abdomen to pleural space. Continue O2 to maintain sat 90-91%, pulmonary hygiene with Cornet valve, out patient testing after she is discharged from rehab. She has had AVALOS for a year and a half. I sent an order for ANCA antibodies with high PETER and liver disease. I will see her tomorrow. History of Present Illness History of Present Illness Consult date: 12/08/24 Chief complaint: fluid overload Narrative: pt was seen Dec 08, 2024 at 11:00 am, Room 347, Yasir and her brother John are present. NEW: Berenice Alex is 78 years old, was well a month ago, Oct 30 was at home taking care of her and dog. She was admitted to [facility] and stayed here for a month, had C diff colitis with sepsis, atrial flutter with cardioversion, had acute kidney injury and required 3 episodes of hemodialysis, acute hypoxemic respiratory failure requiring EZ Pap and Airvo with oxygen requirements up to 70%, she had bilateral atelectasis; Had thoracentesis Left Nov 08 and Nov 21 with 500 mL fluid removed from the left side, no labs tested; went to rehab on November 29 for 12 hours, labs were sent and she had acute increase in her liver enzymes, AST was 190 on November 28 and ALT was 114, by November 30 AST was 902 and ALT was 608; sent back to the hospital on November 30 and admitted on the . Since then the liver enzymes AST and ALT have decreased. GI consult was obtained, diagnoses included pancreatic cyst, increased LFTS, cirrhosis, anemia. Thoracentesis Dec 01 = RIGHT side, 450 cc of fluid was removed; pH greater than 7.50, yellow, hazy, RBCs less than 2000, white blood cells elevated 1644, 4% neutrophils, 36% lymphocytes, 5% monocytes, 57% macrophages, pleural fluid chemistry showed glucose 109, protein 3.0, albumin 2.1, LDH 187, amylase 14, cholesterol 58, triglycerides 27. This is consistent with an exudative noninfected macrophage predominant effusion with mild elevation in white blood cell count, no organisms, moderate WBCs; fungal culture initiated and AFB smear is negative with culture to be completed within 6 weeks. She had a thoracentesis opposite side, 11/08, LEFT side, 250 ml removed, Normal pH 7.46, RBC less than 2000, WBC 874, 26% neutrophils, 2% lymphocytes, 7% monocytes, 57% macrophages 8% mesothelial cells glucose 106. Albumin 1.7. LDH 226, consistent with exudative non infected macrophage predominant effusion with inflammation related to her colitis with component of fluid overload from her acute kidney injury. Ferritin was increased to 972 on Dec 01. Procalcitonin 0.4 on December 01, this is negative, no indication of bacterial pneumonia. December 01 PETER was sent, this is positive at 1:320, homogeneous pattern, gamma globulin is 0.4, at the lower limit of normal, actin IgG is 5, in normal range. IgG is low, 578. Has hypertension, has had it since her late 20s, blood pressure has been controlled with medication but generally runs 140 systolic and 58 diastolic. Her brother also has hypertension. He is a smoker. She has atrial fibrillation, She is followed by Dr. Romano outpatient in the [facility] office. Echo shows diastolic dysfunction. Shehas atrial fib, has been on amiodarone. She was seen by pulmonary Dr Liu Nov 06 for acute hypoxemic respiratory failure, we carried supplemental oxygen, was on EzPAP, had the thoracentesis Nov 08, weaned down, went to Rehab Nov 29 on low flow nasal cannula O2. . She is a never smoker. 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 She has no underlying lung disease, has not use oxygen or inhalers. Has had dyspnea on exertion for 1.5 years. DATA * 12/06/24. chest CT = IMPRESSION: 1. Small left and moderate-sized right posterior layering pleural effusions. 2. Dependent consolidation and groundglass opacities in the bilateral lower lobes with associated volume loss and favor atelectasis over pneumonia. 3. 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 * CXR 12/04/24; 12/04/24, CXR; Persistent opacities in bilateral lower lung zones which could represent very small bilateral pleural effusions and associated basilar atelectasis and/or pneumonia. HISTORY = = = = = = = = = = = this is from Dr Liu's 11/06/24 new pulmonary consultation Assessment and plan (1) Respiratory failure with hypoxia: Patient on no previous oxygen. She presented on 11/01 and 11/03 to the ER with colitis and had room air saturations on 11/03 of 97%. She has progressive worsening oxygenation along with her acute renal failure, development of bilateral pleural effusions and is now requiring Airvo 40 L and 70% FiO2. of note ABG on 11/05/2024 on 8 L nasal cannula with a pH of 7.35/24/69. Etiology of patient's hypoxemic respiratory failure includes: Bilateral pleural effusions with adjacent atelectasis, fluid overload, atrial flutter with rapid ventricular response, pancolitis, and possible pneumonia. 11/06/24: Plan: Agree with as aggressive diuresis as tolerated by her cardiac and renal systems. Since patient is now requiring nares are recommend thoracentesis which hopefully can be performed on 11/07/2024 as she received apixaban 5 mg on 11/06 at 8:33 a.m.. Low clinical suspicion for bacterial pneumonia and agree with Zosyn for her pancolitis, day 3 today. I will send respiratory pathogen panel, urine for Legionella, urine for pneumococcal and serum mycoplasma IgM. I will initiate the patient on EzPAP for her bilateral atelectasis. Currently the patient has minimal shortness of breath but should she develop worsening work of breathing would initiate noninvasive ventilation with the AVAPS mode, rate 14, tidal volume 500, EPAP 5, minimum inspiratory pressure 6, maximal inspiratory pressure 25 and FiO2 to maintain saturations 90-94%. Discussed with patient, niece in the room and Dr. Domínguez. Will follow with you. History of Present Illness Consult date: 11/06/24 Chief complaint: colitis/ridge 11/06/2024: This is a new pulmonary consult for hypoxemic respiratory failure 78-year-old with a history of hypertension. Patient denies a history of asthma, COPD, recurrent pneumonias. She is not on any oxygen at home and checks her pulse oximetry at home and it has been 95-98%. Patient is a never smoker but was exposed to secondhand smoke from her father, from her 1st and 2nd from 1969 to 1985. 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 After 1985 she worked in a [employer]. She denies sand blasting, welding, asbestos were, professional painting, construction work, coal mining or quarry work. Patient noticed that 2 years she developed dyspnea on exertion. Two years ago she could walk 3/4 of a block. One year ago she could walk half a block and currently before this illness she could walk half a block with minimal change person the last year. 11/01 patient presented to the emergency department with abdominal pain and room air saturations were 98%. CT scan of the abdomen showed diverticulitis with no abscess. Her white blood cell count was 12.8. Her creatinine was 0.99. She was discharged on Augmentin. 11/03/2024 patient presented to the emergency room with abdominal pain. Her blood pressure is 128/49, heart rate 87, respirations 26, room air saturations 97%. White blood cell count was 21.8, creatinine was 3.03, bands were 20%. Lipase less than 10. CT scan of the abdomen showed progression of her pancolitis with no pleural effusions. Patient was started on Zosyn. 11/04/2024: At 8:00 p.m. she required 2 L nasal cannula saturations 92%. Patient developed atrial flutter treated with diltiazem. 11/05/2024 CT scan chest abdomen and pelvis showed moderate bilateral pleural effusions with atelectasis. At 11:45 a.m. she required 8 L nasal cannula saturations 90%. ABG on 8 L nasal cannula 7.35/24/69. At 9:00 p.m. she required 8 L with saturations 90%. At 11:00 p.m. she required Airvo 40 L and 70% with saturations 90%. Cardiology consulted and patient initiated on amiodarone and diltiazem discontinued. 11/06/2024: The patient tells me today that her shortness of breath is at her baseline and this is the same as yesterday. She developed a cough today with no phlegm and no hemoptysis. She denies fever. She tells me her abdominal pain is better today than yesterday. She has had flatus today. Earlier today she received IV metoprolol and IV digoxin for atrial flutter with fast heart rate. Currently her heart rate is 149 and regular and she is being restarted on amiodarone drip. Patient remains on Airvo 40 L, 70% FiO2 with saturations 92%. Her white blood cell count is 28.3, creatinine is 4.18. Chest x-ray today compared with 11/04/2024 shows decreased lung volumes with small bilateral pleural effusions with bibasilar infiltrates. DATA: 11/06/24: EXAMINATION: XR chest 1V portable DATE: 11/06/2024 11:34 INDICATION: Respiratory failure TECHNIQUE: frontal view of the chest was obtained. COMPARISON: Chest radiograph dated 11/04/[address] dated 11/05/2024 FINDINGS: Lung volumes are small, unchanged on the left and with interval progression of volume loss on the right. Airspace opacity at the bilateral lower lung zones with blunting at the costophrenic angles consistent with small bilateral pleural effusions and associated atelectasis and/or pneumonia. No pneumothorax or evident pulmonary edema. Heart size is normal. There is ostial fold thickening along the visualized ascending and transverse colon suggestive of colitis. IMPRESSION: 1. Decreased lung volumes with small bilateral pleural effusions and associated bibasilar atelectasis and/or pneumonia. 2. Haustral fold thickening along the visualized colon suspicious for colitis. 11/05/2024: EXAMINATION: CT chest abdomen pelvis wo con, 11/05/2024 16:20 CDT HISTORY: SBO COMPARISON: No comparisons available. FINDINGS: CT chest: No significant coronary calcification is present ([id number]) LUNGS: No tracheomalacia. No bronchiectasis. Moderate to large simple appearing bilateral pleural effusions with small basilar infiltrates. Minimal emphysematous changes. HEART AND PERICARDIUM: Mild cardiomegaly. No pericardial effusion. AORTA: Atherosclerotic changes of the aorta. MEDIASTINUM: Unremarkable. THYROID: The thyroid is unremarkable. CT abdomen: LIVER: Mild cirrhotic disease of the liver suspected. SPLEEN: Mild atrophy of the spleen.. KIDNEYS: Right Kidney: Right kidney mild hydronephrosis, no hydroureter. Left Kidney: Left kidney large simple appearing peripelvic renal cyst 5 x 6 cm. ADRENAL GLANDS: Unremarkable. PANCREAS: Moderate atrophy of the pancreas. Cystic pancreatic lesion of the body 1.5 x 1.6 cm incompletely evaluated, contrast-enhanced MRI recommended. GALLBLADDER/BILIARY: Mild distention of the gallbladder. STOMACH AND ESOPHAGUS: The stomach is decompressed. BOWEL/MESENTERY: Multiple fluid-filled loops of large bowel which appears thickened, absence of contrast limits evaluation. There is pericolonic stranding noted but no gross perforation or abscess, no pneumatosis. Appendix appears minimally thickened but there is no periappendiceal inflammation. Stranding throughout the visualized remaining mesentery. Nonspecific fluid-filled loops of small bowel, no dilated small bowel loops. RETROPERITONEUM: Unremarkable AORTA/VASCULATURE: Normal caliber aorta. FREE FLUID OR FREE AIR: Large amount of free fluid throughout the abdomen and pelvis. Small amount of free fluid in the presacral space.. CT pelvis: SOLID ORGANS/REPRODUCTIVE: Unremarkable. BLADDER: Bladder decompressed. LYMPHADENOPATHY: No lymphadenopathy. OSSEOUS STRUCTURES: No acute osseous abnormality.No suspicious lesions. OVERLYING SOFT TISSUES: Holland catheter in the bladder. IMPRESSION: 1. Diffuse colitis detailed above, correlate for underlying pseudomembranous colitis. No perforation or abscess. Follow-up recommended to assess. 2. CHF with superimposed probable bronchopneumonia. 3. Incidental findings above. Contrast-enhanced MRI recommended Review of Systems Review of Systems: Much less swelling of extremities, and abdomen has less swelling. No chest pain. No productive cough. She is on oxygen 1 L a minute. She is fatigued and short of breath with exertion. She feels better now compared to admission on November 30. All systems reviewed & are unremarkable except as noted in HPI and below PMFSH Past Medical History Medical History (Updated 12/08/24 @ 13:16 by Shama Nguyễn MD) Diastolic dysfunction Pleural effusion Anemia Diverticulitis large intestine Anxiety Hyperlipidemia BMI 25.0-25.9,adult Hypertension Family History Family History Father Hypertension Cerebrovascular accident Mother Heart disease Sibling Diabetes mellitus Sibling Diabetes mellitus Social History Social History Smoking status: Never smoker Second hand tobacco smoke exposure: No Alcohol intake: never Substance use: never Substance use type: does not use Lack of Transportation: No Lack of Food: Never True Current Housing: I Have Housing Concerned About Future Housing: No Difficulty Paying Gas/Electric Bills: No Difficulty Paying for Meds: No Currently Unemployed: No Education: High School Diploma/GED Difficulty w/ Childcare or Family Care: No Living arrangements: with family 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 Gender identity (if verbalized by the patient): Female Spiritual care concerns: No Meds Home Medications and Allergies Home Medications ?Medication ?Instructions ?Recorded ?Confirmed ?Type cyclosporine 0.05 % eye drops 1 drp EACH EYE Q12H #5.5 mL 03/18/21 11/30/24 Rx (Restasis MultiDose) terbinafine HCl 250 mg tablet 250 mg PO DAILY 09/03/23 11/30/24 History amlodipine 10 mg tablet 10 mg PO DAILY #90 tabs 05/16/24 11/30/24 Rx spironolactone 50 mg tablet See Rx Instructions .Route 08/07/24 11/30/24 Rx .COMPLEX #90 tabs lisinopril 40 mg tablet 40 mg PO DAILY #90 tabs 10/01/24 11/30/24 Rx ondansetron 4 mg disintegrating 4 mg PO Q6H PRN nausea and 11/01/24 11/30/24 Rx tablet vomiting #10 tabs acetaminophen 325 mg tablet 650 mg (2 x 325 mg) PO Q4H PRN 11/29/24 11/30/24 Rx Headache #30 tabs alprazolam 0.25 mg tablet 0.25 mg PO QHS PRN anxiety #10 tabs 11/29/24 11/30/24 Rx apixaban 2.5 mg tablet (Eliquis) 2.5 mg PO Q12HR #60 tabs 11/29/24 11/30/24 Rx calcium 500 mg (as 1 tablet PO BIDWM #60 tabs 11/29/24 11/30/24 Rx carbonate)-vitamin D3 5 mcg (200 unit) tablet (Oyster Shell Calcium-Vitamin D3) furosemide 20 mg tablet 20 mg PO BID #60 tabs 11/29/24 11/30/24 Rx hydrocodone 5 mg-acetaminophen 325 1 tablet PO Q6H PRN pain #12 tabs 11/29/24 11/30/24 Rx mg tablet ipratropium 0.5 mg-albuterol 3 mg 3 ml inhalation Q6HRT #90 mL 11/29/24 11/30/24 Rx (2.5 mg base)/3 mL nebulization soln magnesium oxide 400 mg (241.3 mg 400 mg PO QAM #30 tabs 11/29/24 11/30/24 Rx magnesium) tablet metoprolol tartrate 50 mg tablet 50 mg PO BID #60 tabs 11/29/24 11/30/24 Rx sodium chloride 0.65 % nasal spray 1 spray intranasal Q6HR PRN 11/29/24 11/30/24 Rx aerosol (Saline Mist) Congestion #10 mL sodium chloride 1,000 mg soluble 1,000 mg PO BID #60 tabs 11/29/24 11/30/24 Rx tablet vancomycin 125 mg capsule 125 mg PO DAILY 11/29/24 11/30/24 History vancomycin 125 mg capsule 125 mg PO Q48H 11/29/24 11/30/24 History vancomycin 125 mg capsule 125 mg PO Q8HR 11/29/24 11/30/24 History vancomycin 250 mg capsule 125 mg PO Q12HR 11/29/24 11/30/24 History simvastatin 20 mg tablet 20 mg PO DAILY 12/01/24 12/01/24 History trazodone 50 mg tablet 50 mg PO HS 12/01/24 12/01/24 History Allergies Allergy/AdvReac Type Severity Reaction Status Date / Time morphine Allergy Itching Verified 11/30/24 21:16 Vital Signs Vital Signs - 24 hr 12/07/24 13:10 12/07/24 13:17 12/07/24 14:00 Temperature 36.4 C Pulse Rate 75 72 74 Respiratory Rate 20 20 19 Blood Pressure 124/80 Pulse Oximetry 94 Oxygen Delivery Oxygen Flow Rate 12/07/24 20:17 12/07/24 20:20 12/07/24 20:36 Temperature 37.1 C Pulse Rate 74 Respiratory Rate 16 Blood Pressure 137/45 L Pulse Oximetry 92 92 91 Oxygen Delivery Nasal Cannula Nasal Cannula Oxygen Flow Rate 1 1 12/07/24 20:36 12/07/24 20:42 12/07/24 22:06 Temperature Pulse Rate 74 75 75 Respiratory Rate 18 18 Blood Pressure Pulse Oximetry Oxygen Delivery Oxygen Flow Rate 12/08/24 06:00 12/08/24 08:15 12/08/24 08:15 Temperature 36.1 C L Pulse Rate 68 78 Respiratory Rate 18 20 Blood Pressure 133/54 L Pulse Oximetry 92 92 Oxygen Delivery Nasal Cannula Oxygen Flow Rate 1 12/08/24 08:25 12/08/24 08:52 Temperature Pulse Rate 67 80 Respiratory Rate 20 Blood Pressure Pulse Oximetry Oxygen Delivery Oxygen Flow Rate Exam Narrative: GEN: Alert, oriented, not in distress. She is wearing 1 L/min O2, sat is 91-92% HEENT: pupils are equal, EOMI, symmetrical face; oral membranes moist NECK: Trachea is midline CHEST: Equal air entry, symmetric excursion, decreased breath sounds in the right base posteriorly, no wheezes CV: Regular S1S2 no m/g/r ABD : (+) bowel sounds, abdomen is mildly distended. Extremities : no clubbing, cyanosis, or edema. No calf tenderness. Good capillary refill. PSYCH: normal thought and speech, gait is not tested. Results Laboratory Findings 12/08/24 05:18 12/08/24 05:18 ABG, PT/INR, D-dimer: PT/INR, D-dimer PT 17.1 Seconds (11.1-14.7) H 12/01/24 05:39 INR 1.4 12/01/24 05:39 Abnormal lab findings: Abnormal Labs 11/30/24 12/01/24 12/01/24 14:06 05:39 09:19 RBC 3.10 L 2.70 L Hgb 9.3 L 8.1 L Hct 28.5 L 25.6 L MCHC 31.6 L RDW 14.9 H 15.1 H Immature Gran % (Auto) 1.0 H 0.7 H [place] % (Auto) 9.0 H [place] # (Auto) Abs Immat Gran (auto) 0.06 H 0.04 H PT 17.6 H 17.1 H Sodium 129 L 130 L Potassium 3.0 L Chloride 93 L 94 L Carbon Dioxide 31 H 32 H Anion Gap BUN Creatinine Estimated GFR 55 L Glucose 131 H Calcium 7.6 L 8.2 L Iron TIBC % Saturation Ferritin AST 785 H 563 H ALT 667 H 557 H Alkaline Phosphatase Lactate Dehydrogenase 426 H NT-Pro-B Natriuret Pep 837 H Total Protein 5.3 L 5.2 L Albumin 2.8 L 2.9 L Pleural pH > 7.500 H Pleural Nuc Cells Acetaminophen < 10 L PETER Screen Positive A PETER Homogeneous Pattern 1:320 H 12/01/24 12/01/24 12/02/24 09:50 14:08 05:56 RBC 2.62 L Hgb 7.8 L Hct 24.4 L MCHC RDW 14.9 H Immature Gran % (Auto) [place] % (Auto) [place] # (Auto) Abs Immat Gran (auto) PT Sodium 128 L Potassium Chloride 92 L Carbon Dioxide 33 H Anion Gap 3 L BUN 20 H Creatinine 1.18 H Estimated GFR 45 L Glucose 113 H Calcium 7.5 L Iron 33 L TIBC 171 L % Saturation 19 L Ferritin 972.00 H AST 418 H ALT 473 H Alkaline Phosphatase Lactate Dehydrogenase NT-Pro-B Natriuret Pep Total Protein 4.9 L Albumin 2.6 L Pleural pH Pleural Nuc Cells 1644 H Acetaminophen PETER Screen PETER Homogeneous Pattern 12/03/24 12/04/24 12/05/24 05:45 05:07 05:08 RBC 2.56 L 2.53 L 2.48 L Hgb 7.6 L 7.5 L 7.4 L Hct 24.2 L 23.7 L 23.4 L MCHC 31.4 L 31.6 L 31.6 L RDW 14.9 H 14.7 H 14.6 H Immature Gran % (Auto) [place] % (Auto) [place] # (Auto) Abs Immat Gran (auto) PT Sodium 129 L 130 L 131 L Potassium 3.2 L Chloride 93 L 93 L 92 L Carbon Dioxide 34 H 35 H 35 H Anion Gap 2 L 2 L BUN 22 H 20 H 20 H Creatinine 1.33 H 1.18 H 1.09 H Estimated GFR 39 L 45 L 49 L Glucose 111 H Calcium 7.6 L 7.7 L 7.7 L Iron TIBC % Saturation Ferritin AST 435 H 321 H 179 H ALT 483 H 423 H 317 H Alkaline Phosphatase Lactate Dehydrogenase NT-Pro-B Natriuret Pep Total Protein 5.1 L 5.0 L 5.0 L Albumin 2.6 L 2.6 L 2.5 L Pleural pH Pleural Nuc Cells Acetaminophen PETER Screen PETER Homogeneous Pattern 12/06/24 12/07/24 12/08/24 05:29 10:58 05:18 RBC 2.63 L 2.82 L 2.49 L Hgb 7.8 L 8.3 L 7.4 L Hct 24.6 L 26.5 L 23.2 L MCHC 31.7 L 31.3 L 31.9 L RDW 14.6 H 14.9 H 14.9 H Immature Gran % (Auto) 0.9 H [place] % (Auto) 9.2 H [place] # (Auto) 0.7 H Abs Immat Gran (auto) 0.07 H PT Sodium 131 L 131 L 129 L Potassium 3.3 L 3.3 L Chloride 92 L 91 L 92 L Carbon Dioxide 35 H 35 H 33 H Anion Gap BUN 19 H 21 H Creatinine 1.03 H 1.13 H 1.17 H Estimated GFR 52 L 47 L 45 L Glucose 118 H 151 H 111 H Calcium 8.2 L 8.2 L 7.7 L Iron TIBC % Saturation Ferritin AST 122 H ALT 243 H Alkaline Phosphatase 127 H Lactate Dehydrogenase NT-Pro-B Natriuret Pep Total Protein 5.2 L Albumin 2.6 L Pleural pH Pleural Nuc Cells Acetaminophen PETER Screen PETER Homogeneous Pattern
[2024-12-08] MEDS: POTASSIUM CHLORIDE 20 MEQ ER TABLET 40 MEQ PO ×2 (10:19→17:53)
--- NOTE | 2024-12-08 13:21 | P.PNIM_ITS ---
Progress Note: A&P Assessment and Plan (1) Hypertension: Code(s): I10 - Essential (primary) hypertension Status: Chronic (2) A-fib: Code(s): I48.91 - Unspecified atrial fibrillation Status: Acute (3) Hyponatremia: Code(s): E87.1 - Hypo-osmolality and hyponatremia Status: Acute (4) Elevated liver enzymes: Code(s): R74.8 - Abnormal levels of other serum enzymes Status: Acute (5) Cirrhosis: Code(s): K74.60 - Unspecified cirrhosis of liver Status: Acute (6) Hypokalemia: Code(s): E87.6 - Hypokalemia Status: Acute (7) Bladder distension: Code(s): N32.89 - Other specified disorders of bladder Status: Acute (8) Clostridium difficile colitis: Code(s): A04.72 - Enterocolitis due to Clostridium difficile, not specified as recurrent Status: Acute Plan 78-year-old female with past medical history of, hyperlipidemia, chronic pleural effusions, CHF presented from rehab with abnormal labs of increased liver enzymes. Patient had a prolonged course at [facility] due to congestive heart failure with fluid overload pleural effusions and new AFib with RVR. She was discharged to rehab. Presented within 24 hours. Lab work showed hemoglobin 9.3, sodium of 129, potassium of 3.0, , AST of 785, ALT of 667, troponin negative, BNP 837, protein 5.3, albumin 2.8, CT shows moderate-sized bilateral pleural effusions with complete collapse of the right lower lobe, partial collapse of the left lower lobe and additional mild dependent atelectasis in the remaining lobes of both lungs, colitis versus more likely descending colon diverticulitis, ascites,Simple appearing likely benign 2.4 x 1.4 cm cyst in the anterior mediastinum which could represent a thymic, pericardial or foregut duplication cyst, and stable cystic lesions in the pancreas. Patient received Lasix and potassium in the ER, admitted for further workup. Status post thoracentesis, 450 cc of fluid was removed. GI was consulted for transaminitis, which continues to improve, likely from fluid overload. (1) acute Respiratory failure with hypoxia: Continues to be on 1 L of O2 support Status post thoracentesis as mentioned above Does not appear to be infectious, pH greater than 7.5 Echo done in October of this year shows concentric left ventricular hypertroph y with hyperdynamic systolic function and grade 1 diastolic dysfunction Continue with bronchodilators Continue with IV Lasix Pulmonary consult awaited Strict I's and O's 2. Elevated liver enzymes: Trending down Total bilirubin is normal Hepatitis panel was negative CT chest abdomen pelvis showed normal liver but small amount of scattered ascites with no organized abscess or free intraperitoneal gas clinical presentation likely related to hypoxic/ischemic injury following episode of acute respiratory failure or fluid overload in combination with underlying cirrhosis Appreciate GI help Patient has elevated PETER levels ? Autoimmune liver disease I will try to recontact GI, about these test results and the recommendations 3. Aaron colitis: CT chest abdomen pelvis showed uncomplicated colitis versus likely descending colon diverticulitis Patient tested positive for C diff on 11/09/2024 Currently patient on oral vancomycin taper Outpatient colonoscopy by GI at some point in near future Continues to have formed stools 4. A-fib: Continue with metoprolol b.i.d. Continue with Eliquis 2.5 mg b.i.d. 5. Bladder distension: [place] has been removed 6. Hypertension: Continue with Norvasc, metoprolol Continue with Lasix Hydralazine, lisinopril are on hold 7. Anemia: Iron panel 11/21: total iron 17, TIBC 180, iron saturation 9%, ferritin 162. No signs of active GI bleeding. Repeat Iron panel appears to be anemia of chronic disease Per GI, plan to discuss in the office outpatient if further evaluation and need for endoscopic evaluation to rule out GI source of blood loss or malabsorption 8. Anxiety: Continue Xanax prn 9. Chronic hyponatremia: Continue with sodium chloride supplementation 10. DVT prophylaxis: Eliquis 11. Code status: Full 12. Disposition: Pending improvement Time Spent With Patient Time: 39 minutes Subjective Date/time seen: 12/08/24 13:21 Interval history: No acute events overnight Review of Systems Review of Systems: All systems reviewed & are unremarkable except as noted in HPI and below Exam Narrative: General: No acute distress, on nasal cannula HEENT: Normocephalic. Atraumatic. Chest: Decreased breath sounds bilaterally, no added sounds heard CV: Heart was regular rate and rhythm. Abd: Abdomen was soft. Nontender. Nondistended. Positive bowel sounds. Ext: No clubbing, cyanosis. DP pulses bilaterally. Neuro: Patient is alert. Speech is clear. Objective Data Vital Signs Vital Signs: Vital Signs - 24 hr 12/07/24 14:00 12/07/24 20:17 12/07/24 20:20 Temperature 97.6 F 98.7 F Pulse Rate 74 74 Respiratory Rate 19 16 Blood Pressure 124/80 137/45 L Pulse Oximetry 94 92 92 Oxygen Delivery Nasal Cannula Oxygen Flow Rate 1 12/07/24 20:36 12/07/24 20:36 12/07/24 20:42 Temperature Pulse Rate 74 75 Respiratory Rate 18 18 Blood Pressure Pulse Oximetry 91 Oxygen Delivery Nasal Cannula Oxygen Flow Rate 1 12/07/24 22:06 12/08/24 06:00 12/08/24 08:15 Temperature 97.0 F L Pulse Rate 75 68 Respiratory Rate 18 Blood Pressure 133/54 L Pulse Oximetry 92 92 Oxygen Delivery Nasal Cannula Oxygen Flow Rate 1 12/08/24 08:15 12/08/24 08:25 12/08/24 08:52 Temperature Pulse Rate 78 67 80 Respiratory Rate 20 20 Blood Pressure Pulse Oximetry Oxygen Delivery Oxygen Flow Rate Intake/Output Intake/Output: Intake & Output 12/05/24 12/06/24 12/07/24 12/08/24 23:59 23:59 23:59 23:59 Intake Total 1682 439 1824 890 Output Total 3000 1550 800 600 Balance -1860 -830 1031 290 Meds/Results Medications: Active Medications Generic Name Dose Route Start Last Admin Trade Name Freq PRN Reason Stop Dose Admin Acetaminophen 650 mg 11/30/24 16:31 Acetaminophen 325 Mg Tablet PO Q4H PRN Mild Pain (1-3) or Fever Hydrocodone Bitart/Acetaminophen 1 tab 11/30/24 22:12 Hydrocodone/Acetaminophen (*Crx) 5-325 Mg Tablet PO Q6H PRN Pain 4-6 Albuterol/Ipratropium 3 ml 12/08/24 10:36 Ipratropium 0.5 Mg/Albuterol Sulfate 2.5 Mg (Base) Ampul.Neb 3 Ml INHALATION Q6HRT PRN Shortness Of Breath Or Wheezing Alprazolam 0.25 mg 11/30/24 22:12 12/07/24 22:07 Alprazolam (*Crx) 0.25 Mg Tablet PO 0.25 mg QHS PRN Administration Anxiety Amlodipine Besylate 10 mg 12/04/24 09:00 12/08/24 08:51 Amlodipine Besylate 10 Mg Tablet PO 10 mg DAILY KEVIN Administration Apixaban 2.5 mg 12/03/24 21:00 12/08/24 08:55 Apixaban 2.5 Mg Tablet PO Not Given Q12HR KEVIN Atorvastatin Calcium 10 mg 12/01/24 09:00 12/08/24 08:50 Atorvastatin 10 Mg Tablet PO 10 mg DAILY KEVIN Administration Calcium Carbonate 500 mg 12/01/24 08:00 12/08/24 08:52 Calcium/Vitamin D 500 Mg/5 Mcg (200 I.U.) Tablet PO 500 mg BIDWM KEVIN Administration Cyclosporine 1 drop 11/30/24 22:15 12/08/24 08:51 Cyclosporine 0.4 Ml Ophth Solution EACH EYE 1 drop Q12HR KEVIN Administration Docusate Sodium 100 mg 11/30/24 16:31 Docusate Sodium 100 Mg Capsule PO BID PRN Constipation Furosemide 40 mg 12/04/24 09:00 12/08/24 08:52 Furosemide Inj 40 Mg/4 Ml Vial IV PUSH 40 mg DAILY KEVIN Administration Magnesium Oxide 400 mg 12/01/24 09:00 12/08/24 08:51 Magnesium Oxide 400 Mg Tablet PO 400 mg QAM KEVIN Administration Metoprolol Tartrate 50 mg 12/01/24 09:00 12/08/24 08:52 Metoprolol Tartrate 50 Mg Tab PO 50 mg Q12HR KEVIN Administration Potassium Chloride 40 meq 12/08/24 10:05 12/08/24 10:19 Potassium Chloride 20 Meq Er Tablet PO 12/08/24 22:05 40 meq BID KEVIN Administration Sodium Chloride 1 spray 11/30/24 22:12 Saline 0.65% Rodrigo Soln 44 Ml Btl NASAL Q6HR PRN Congestion Sodium Chloride 1,500 mg 12/01/24 09:00 12/08/24 08:51 Sodium Chloride 500 Mg Tablet PO 1,500 mg BID KEVIN Administration Tamsulosin HCl 0.4 mg 12/01/24 09:00 12/08/24 08:51 Tamsulosin Hcl 0.4 Mg Capsule PO 0.4 mg QAM KEVIN Administration Trazodone HCl 50 mg 11/30/24 23:46 12/07/24 22:07 Trazodone Hcl 50 Mg Tablet PO 50 mg HS PRN Administration Insomnia Vancomycin HCl 125 mg 12/13/24 09:00 Vancomycin Hcl 125 Mg Oral Capsule PO 12/19/24 10:00 DAILY KEVIN Vancomycin HCl 125 mg 12/20/24 09:00 Vancomycin Hcl 125 Mg Oral Capsule PO 01/01/25 10:00 Q48H KEVIN Vancomycin HCl 125 mg 12/06/24 09:00 12/08/24 08:51 Vancomycin Hcl 125 Mg Oral Capsule PO 12/12/24 22:00 125 mg Q12HR KEVIN Administration Radiology Results: ITS Impressions Chest/Abdomen/Pelvis CT 11/30/24 15:30 IMPRESSION: 1. No significant change in a moderate-sized bilateral pleural effusions with complete collapse of the right lower lobe, partial collapse of the left lower lobe and additional mild dependent atelectasis in the remaining lobes of both lungs. 2. Radiographically uncomplicated colitis versus more likely descending colon diverticulitis. 3. Small amount of scattered ascites with no organized abscess or free intraperitoneal gas. 4. No interval change in 3 simple appearing cystic lesions at the body and tail the pancreas measuring up to 1.4 cm. The differential diagnosis includes pseudocyst, intraductal papillary mucinous neoplasm (IPMN), mucinous cystic neoplasm (MCN), and the less common serous cystadenoma and neuroendocrine tumor. Correlate for history of pancreatitis. Recommend 2 year follow-up pre and postcontrast MRI. 5. 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 Thoracentesis Ultrasound 12/01/24 10:20 IMPRESSION: 1. Successful ultrasound-guided thoracentesis yielding 450 mL of clear straw- colored fluid. Chest X-Ray 12/04/24 07:53 IMPRESSION: 1. Persistent opacities in bilateral lower lung zones which could represent very small bilateral pleural effusions and associated basilar atelectasis and/or pneumonia. Chest CT 12/06/24 15:35 IMPRESSION: 1. Small left and moderate-sized right posterior layering pleural effusions. 2. Dependent consolidation and groundglass opacities in the bilateral lower lobes with associated volume loss and favor atelectasis over pneumonia. 3. 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 Labs Labs: Laboratory Results - last 24 hr 12/08/24 05:18 WBC 8.0 RBC 2.49 L Hgb 7.4 L Hct 23.2 L MCV 93.2 MCH 29.7 MCHC 31.9 L RDW 14.9 H Plt Count 226 MPV 9.3 Immature Gran % (Auto) 0.9 H Neut % (Auto) 66.2 Lymph % (Auto) 20.9 [place] % (Auto) 9.2 H Eos % (Auto) 2.4 Baso % (Auto) 0.4 Lymph # (Auto) 1.68 [place] # (Auto) 0.7 H Eos # (Auto) 0.2 Baso # (Auto) 0.0 Abs Immat Gran (auto) 0.07 H Absolute Neuts (auto) 5.3 Absolute Nucleated RBC 0.000 Nucleated RBC % 0.0 Sodium 129 L Potassium 3.3 L Chloride 92 L Carbon Dioxide 33 H Anion Gap 4 BUN 21 H Creatinine 1.17 H Estim Creat Clear Calc 34 Estimated GFR 45 L Glucose 111 H Calcium 7.7 L Quality VTE Prophylaxis VTE prophylaxis: pharmacologic ordered
[2024-12-08] MEDS: ALPRAZolam (*CRX) 0.25 MG TABLET PO (22:06)
[2024-12-08] MEDS: APIXABAN 2.5 MG TABLET PO (22:07)
[2024-12-09] VITALS (7 sets, daily range): BP systolic 125–138; BP diastolic 53–56; PULSE 71–82; RESP 15–18; TEMP 36–36.8; O2SAT 94–97
[2024-12-09 05:24] LABS: Hematocrit 24.8 % (37.0-47.0); Hemoglobin 7.6 g/dL (12.0-15.0); Immature Granulocyte Percent A 0.9 % (0-0.5); Lymphocytes Absolute Auto 1.66 K/mm3 (0.9-3.2); Mean Corpuscular HGB Conc 30.6 g/dl (32-36); Mean Corpuscular Hemoglobin 29.0 pg (26-34); Mean Corpuscular Volume 94.7 fl (80-100); Nucleated Red Blood Cells Absolute Auto 0.000 K/mm3 (0.0-0.012); Nucleated Red Blood Cells Perc 0.0 % (0.0-0.2); Platelet Count Result 261 k/mm3 (150-375); Red Blood Count 2.62 M/mm3 (4.2-5.4); White Blood Count 5.7 K/mm3 (4.5-10.0)
[2024-12-09 05:41] LABS: Anion Gap 3 mmol/L (4-12); Blood Urea Nitrogen 21 mg/dL (7-17); Calcium 7.9 mg/dL (8.4-10.2); Carbon Dioxide 33 mmol/L (22-30); Chloride 96 mmol/L (98-107); Estimated CRCL calculation 33 ml/min; Estimated Glomerular Filt Rate 43; Glucose 116 mg/dL (65-110); Potassium 4.2 mmol/L (3.4-5.0); Sodium 132 mmol/L (137-145)
[2024-12-09] MEDS: SODIUM CHLORIDE 500 MG TABLET 1500 MG PO ×2 (08:45→16:37)
[2024-12-09] MEDS: CALCIUM/VITAMIN D 500 MG/5 MCG (200 I.U.) TABLET PO ×2 (08:46→16:38)
[2024-12-09] MEDS: METOPROLOL TARTRATE 50 MG TAB PO ×2 (08:46→21:57)
[2024-12-09] MEDS: ATORVASTATIN 10 MG TABLET PO (08:47)
[2024-12-09] MEDS: MAGNESIUM OXIDE 400 MG TABLET PO (08:47)
[2024-12-09] MEDS: TAMSULOSIN HCL 0.4 MG CAPSULE PO (08:48)
[2024-12-09] MEDS: VANCOMYCIN HCL 125 MG ORAL CAPSULE PO ×2 (08:48→21:57)
[2024-12-09] MEDS: cycloSPORINE 0.4 ML OPHTH SOLUTION 1 DROP EACH EYE ×2 (08:48→22:03)
[2024-12-09] MEDS: FUROSEMIDE INJ 40 MG/4 ML VIAL IV PUSH (08:48)
[2024-12-09] MEDS: APIXABAN 2.5 MG TABLET PO ×2 (08:48→21:57)
--- NOTE | 2024-12-09 10:36 | P.CONREHAB_ITS ---
[facility] Date/Time 12/09/24 10:36 sining template delayed with technical issues with editing Narrative REASON FOR CONSULTATION: ASSESS CURRENT FUNCTIONAL CONDITION AND ACTIVE MEDICAL CONDITIONS CONTRIBUTING TO TO FUNCTIONAL DECLINE The primary reason for rehab is severe deconditioning poor endurance and myopathy in the setting of acute respiratory failure/pleural effusions /ascites/anasarca/hepatic failure and cirrhosis/DONOVAN and colitis The etiologic diagnosis is active and critical medical conditions causing critical illness myopathy debility and deconditioning and protein calorie malnutrition In the setting of prolonged immobility fatigue and cardiopulmonary renal and hepatic failure and dysfunction. Currently she has poor endurance dyspnea at rest resulting in limited power endurance and strength to complete MRAs Mobility Related Activities of Daily Living. She will require progressive mobility and activities to increase endurance before transfer to rehab. Barriers include fluid overload both ascites and pleural effusions and anasarca. Will need review of STS and orthostasis given her prolonged immobility and poor albumin/protein levels. 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 Currently she has poor endurance dyspnea at rest resulting in limited power endurance and strength to complete MRADLs Mobility Related Activities of Daily Living. She will require progressive mobility and activities to increase endurance before transfer to rehab. Barriers include fluid overload both ascites and pleural effusions and anasarca. Will need review of STS and orthostasis given her prolonged immobility and poor albumin/protein levels. Agree with out of bed to chair, ambulation as tolerated (2) Fluid overload: Code(s): E87.70 - Fluid overload, unspecified Status: Acute Assessment and Plan: with recurrent pleural effusions ascites anasarca/BLE edema specialists to review etiology and management resulting in the above. On rehab any fluid removal except diuresis is appropriate (3) Pleural effusion associated with hepatic disorder: Code(s): K76.9 - Liver disease, unspecified; J91.8 - Pleural effusion in other conditions classified elsewhere Status: Acute Assessment and Plan: Appreciate Dr. Márquez assessment Per Dr. Nguyễn patient presented with colitis on 11/01/[address] scan of the abdomen on 11/01/2024 and 11/03/2024 showed no pleural effusions. On 11/04/2024 she had small bilateral pleural effusions. 11/08/24; Later in the day patient had a left thoracentesis with 250 mL of yellow fluid removed. Her left effusion is consistent with an exudative, noninfected, macrophage predominant, non malignant effusion likely an inflammatory response related to her colitis with component of fluid overload from her acute kidney injury. 11/21/2024: Left thoracentesis with 500 mL of yellowish fluid. No studies sent. 12/01/2024: Right thoracentesis with 450 mL of straw-colored fluid. This represents an exudative, noninfected, macrophage predominant, cytology negative pleural effusion. 12/08/24: She has a right pleural effusion tapped Dec 01, 450 mL hazy yellow fluid with exudative findings, no growth on micro, mild increase in pleural fluid wbc, She does not have an underlying pulmonary pathologic process. These fluid results are not cordage sales representative of a pleural space infection such as parapneumonic infection, empyema, and she does not appear to have pneumonia on the CT scan. AGREE WITH NEED TO DETERMINE HEPATIC FUNCTION CAUSING RECURRENT EFFUSIONS. DDX autoimmune hepatitis ? unclear from current results Liver cirrhosis mentioned unclear if plans for work up (GI consulted did not address) Aware initial fluids likely with pancolitis. Agree with incentive spirometry and Cornet flutter valve for atelectasis. Appreciate overnight oximetry on room air tonight. (4) Anasarca: Code(s): R60.1 - Generalized edema Status: Acute Assessment and Plan: Currently patient continues to lose fluid with IV lasix no recent thoracenteses no discussion of paracenteses/management of ascites BLE edema improving Patient making gains-request procedures completed prior to transfer and stable fluid status that can be managed with oral diuretics. RECOMMEND ASSESSMENT OF ORTHOSTATICS GIVEN FLUID LOSS AND IMMOBILITY. (5) Hepatic dysfunction: Code(s): K76.89 - Other specified diseases of liver Status: Acute Assessment and Plan: Unclear of current condition with hepatic dysfunction/ascites and reported cirrhosis. Defer to specialists for evaluation.--autoimmune hepatitis etc DIURESIS CONTINUES LFTS improving consistent with hepatic stasis? with overload If ASCITES worsens recommend abdominal girth monitoring and review if even paracentesis appropriate Will education general manager referral be completed? (6) Clostridium difficile colitis: Code(s): A04.72 - Enterocolitis due to Clostridium difficile, not specified as recurrent Status: Acute Assessment and Plan: Patient had a positive C diff test on 11/09/2024 Problem: Enterocolitis due to Clostridium Difficile Interventions: Metronidazole complete from 11/08-11/15 - Per ID: Maintain planned pulse/taper with oral vancomycin. Currently at 250mg Q6 changed at 11/16. Would plan Q8 dosing of oral vancomycin starting 11/30 and then decrease to twice daily dosing on 12/07. Daily doses starting on 12/14 and then every other day dosing x2 weeks starting on 12/21. -Monitor stool output while tapering vanc -Zosyn discontinued -Leukocytosis and diarrhea improving -Continue Banatrol (7) Gait abnormality: Code(s): R26.9 - Unspecified abnormalities of gait and mobility Status: Acute Assessment and Plan: in the setting of debility immobility anasarca fatigue and malaise PT OT for functional mobility training, MRADL retraining, therapeutic exercise, HEP, endurance training, balance training, DME, fall prevention, review precautions, family teaching. (8) Malaise and fatigue: Code(s): R53.81 - Other malaise; R53.83 - Other fatigue Status: Acute Assessment and Plan: with prolonged immobility and pulmonary cardiac renal and hepatic dysfunction PT OT energy conservation DME (9) Urinary retention with incomplete bladder emptying: Code(s): R33.9 - Retention of urine, unspecified Status: Acute Assessment and Plan: Hydronephrosis and distended bladder on CT Bladder scan if over 400 place Gamble catheter while aggressively diuresing purewick NOT EFFECTIVE to resolve urinary retention with obstructive bladder (10) Acute kidney injury: Code(s): N17.9 - Acute kidney failure, unspecified Status: Acute Assessment and Plan: Problem: DONOVAN Interventions: Infection vs contrast related injury vs prerenal. Cr normal 2 days prior to admission -Nephrology following -Right IJ Cecil dialysis catheter placed 11/10 -Dialysis started on 11/10, discontinued now -Renal ultrasound without obstruction, urine electrolytes pre renal, urine eosinophils neg, CPK normal, mild proteinuria -Holding lisinopril and spironolactone -Gamble cath in place -Follow renal function labs and urine outpt recommend with aggressive diuresis gamble catheter to remain initially. ALSO given hydronephrosis noted with DONOVAN obstructive uropathy likely (additionally I realize DONOVAN also secondary to change in fluid status hypotension etc. (11) Respiratory failure with hypoxia: Code(s): J96.91 - Respiratory failure, unspecified with hypoxia Status: Acute Assessment and Plan: Likely due to large pleural effusions appreciate dr Márquez input Wean oxygen as able increase sitting and mobility IS coronet RT to follow await ON pulse oximetry study (12) A-fib: Code(s): I48.91 - Unspecified atrial fibrillation Status: Acute Assessment and Plan: monitor hemodynamics anticoagulation Continue metoprolol (13) Pancreatic cyst: Code(s): K86.2 - Cyst of pancreas Status: Acute Assessment and Plan: Pancreatic cyst: CT yesterday: No interval change in 3 simple appearing cystic lesions at the body and tail the pancreas measuring up to 1.4 cm. The differential diagnosis includes pseudocyst, intraductal papillary mucinous neoplasm (IPMN), mucinous cystic neoplasm (MCN), and the less common serous cystadenoma and neuroendocrine tumor. Correlate for history of pancreatitis. Recommend 2 year follow-up pre and postcontrast MRI. CT on 11/05 showed moderate atrophy of the pancreas. Cystic pancreatic lesion of the body 1.5 x 1.6 cm incompletely evaluated. Lipase this admission is normal at 46. No known prior Hx of pancreatitis. * Patient to follow up with GI outpatient for further evaluation and monitoring. No need for emergent evaluation, MRI and possible need for EUS can be determined during outpatient follow up visit RECOMMENDATIONS CONTINUE MEDICAL MANAGEMENT--appreciate plan of care for FLUID OVERLOAD ASCITES PLEURAL EFFUSIONS WITH ANASARCA to LIMIT RECURRENT NEED FOR THORACENTESIS NEED HEPATIC EVALUATION OR MANAGEMENT IF PERSISTENT ASCITES (or if related to CLostridium difficile pancolitis) INCREASE MOBILITY AND ENDURANCE REVIEW BLADDER VOLUMES FOR URINARY RETENTION REVIEW CURRENT BOWEL OUTPUT REVIEW FOR ORTHOSTASIS WITH STANDING. I will follow up WEDNESDAY Thank you for allowing me to participate in the rehab needs due to impairments from baseline given acute and chronic complex medical conditions. I saw this patient [id number] on 12/09/24 Consult date: 12/08/24 Chief complaint: critical illness myopathy with decline in functional mobility and mobility related activities of daily living PATIENT IS NOT AT BASELINE STATUS AND IN FACT HAS DECLINED SINCE . Narrative: pt was seen December 09 at 2 pm at [facility]. HPI Berenice Alex is a 78 year old female with past medical history of hypertension, AFib, depression, anemia, hyponatremia, respiratory failure, hyperlipidemia, anxiety [facility]. Was previously admitted on 11/01 for diverticulitis without abscess and was discharged home with p.o. Medications without improved. Patient complains diarrhea worse abdominal pain, C-diff was positive, S/P p.o. Vancomycin with a taper schedule ends 01/04. Required a rectal tube to manage excessive diarrhea. Hospital course complicated by? acute respiratory failure with hypoxia. Chest CT showed persistent L lower lobe atelectasis and associated effusion. Pulmonology did not feel she has pneumonia.? Received a thoracentesis on 11/08 showed exudative effusion, not infectious, macrophage predominant and likely related to colitis/fluid overload DONOVAN. s/p short time dialysis on 11/10.? Improved with dialysis.? Renal ultrasound showed no obstruction.? Patient also complicated by AFib and anemia. Patient required PT/OT. On initial evaluation RO LFTs progressively elevated, patient with dyspnea and complaining of progressive fluid overload with hypoxia with transfer to [place] [facility] for evaluation On transfer to [place] [facility] from [facility] Lab work shows hemoglobin 9.3 which is around baseline, INR 1.5, sodium of 129, potassium of 3.0, calcium is 7.6, AST of 785, ALT of 667, troponin negative, BNP 837, protein 5.3, albumin 2.8, CT shows moderate-sized bilateral pleural effusions with complete collapse of the right lower lobe, partial collapse of the left lower lobe and additional mild dependent atelectasis in the remaining lobes of both lungs, colitis versus more likely descending colon diverticulitis, ascites,Simple appearing likely benign 2.4 x 1.4 cm cyst in the anterior mediastinum which could represent a thymic, pericardial or foregut duplication cyst, and stable cystic lesions in the pancreas. ED patient was given 40 mg Lasix in the ED and potassium. Hospital management has included Respiratory failure with hypoxia Pleural effusions-recurrent Elevated LFTs Ascites/Anasarca Atrial fib flutter Protein calorie malnutrition Pancreatic cyst Cirrhosis PRIOR LEVEL OF FUNCTION: before october INDEPENDENT with mobility self cares ADLs IADLs Prior to hospitalization Berenice was living at home with her . 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 CURRENT LEVEL OF FUNCTION: Eating Supervision or touching assist - 04 Oral Hygiene Supervision or touching assist - 04 Toileting Hygiene Dependent - 01 Shower/bathe Self Partial/Moderate assist - 03 Upper Body Dressing Partial/Moderate assist - 03 Lower Body Dressing Substantial/Maximal assist - 02 Putting on/Taking off Footwear Not assessed/no information Roll Left and Right Supervision or touching assist - 04 Sit to Lying Partial/Moderate assist - 03 Lying to Sitting on Side of Bed Partial/Moderate assist - 03 Sit to Stand Partial/Moderate assist - 03 Chair to Bed Transfer Partial/Moderate assist - 03 Toilet Transfer Partial/Moderate assist - 03 Car Transfer Not assessed/no information Cognition Preadmission Status Comments Expression Without difficulty - 4 Comprehension Understands - 4 Temporal Orientation AO X4 Bladder/Bowel Continence Preadmission Status Comments Bladder Continence Incontinent daily - 3 Bowel Continence Occasionally incontinent - 1 11/28 GOALS: Our therapists will evaluate the patient and establish the goals. However, upon pre-admission screening, the expected goals were to be optimize independence with self-care, optimize independence with transfers, and optimize independence with functional mobility so that the patient can return home. GOALS improved oral intake restorative sleep stable mood hemodynamically stable stable oxygenation fluid balance managed with oral diuretics and no acute need for paracentesis or thoracentesis patient and family aware of medical conditions, neuromuscular conditions impairments rehab plan of care DME recommendations and followup ESTIMATED LENGTH OF STAY: 10-14 days POTENTIAL BARRIERS TO DISCHARGE: Family needs training. Severity of condition prolonged hospitalization immobility with mobility medical conditions. Architectural barriers. ACTIVE CO-MORBIDITIES PRESENT ON ADMISSION: DONOVAN, AFIB, Depression, Anemia, Hypo-Osmolality and hyponatremia, Acute hypoxic respiratory failure ascites anasarca pleural effusions cirrhosis The above co-morbidities impact the patient's function and/or functional outcome by limiting safe functional mobility and MRADLs Covid n/a Review of Systems Review of Systems i am dyspneic when resting-I need tihe HOB raised I have limited appetite I cannot tolerate sitting up for prolonged periods Buttocks hurt after all that diarrhea my legs and joints ache and get shaky by the end of the day I can think but feel tired given my body weakness Mood okay but i am worried about my dont send me to rehab until i can tolerate that activity All systems reviewed & are unremarkable except as noted in HPI and below PMFSH Past Medical History Medical History Acute kidney injury Diastolic dysfunction Pleural effusion Anemia Diverticulitis large intestine Anxiety Hyperlipidemia BMI 25.0-25.9,adult Hypertension Family History Family History Father Hypertension Cerebrovascular accident Mother Heart disease Sibling Diabetes mellitus Sibling Diabetes mellitus Social History Social History Smoking status: Never smoker Second hand tobacco smoke exposure: No Alcohol intake: never Substance use: never Substance use type: does not use Lack of Transportation: No Lack of Food: Never True Current Housing: I Have Housing Concerned About Future Housing: No Difficulty Paying Gas/Electric Bills: No Difficulty Paying for Meds: No Currently Unemployed: No Education: High School Diploma/GED Difficulty w/ Childcare or Family Care: No Living arrangements: with family 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 Gender identity (if verbalized by the patient): Female Spiritual care concerns: No Comments Current Medications Acetaminophen (Acetaminophen 325 Mg Tablet) 650 mg PO Q4H PRN PRN Reason: Mild Pain (1-3) or Fever Albuterol/Ipratropium (Ipratropium 0.5 Mg/Albuterol Sulfate 2.5 Mg (Base) Ampul.Neb 3 Ml) 3 ml INHALATION Q6HRT PRN PRN Reason: Shortness Of Breath Or Wheezing Amlodipine Besylate (Amlodipine Besylate 10 Mg Tablet) 10 mg PO DAILY [facility] Apixaban (Apixaban 2.5 Mg Tablet) 2.5 mg PO Q12HR [facility] Atorvastatin Calcium (Atorvastatin 10 Mg Tablet) 10 mg PO DAILY [facility] Calcium Carbonate (Calcium/Vitamin D 500 Mg/5 Mcg (200 I.U.) Tablet) 500 mg PO BIDWM [facility] Cyclosporine (Cyclosporine 0.4 Ml Ophth Solution) 1 drop EACH EYE Q12HR [facility] Docusate Sodium (Docusate Sodium 100 Mg Capsule) 100 mg PO BID PRN PRN Reason: Constipation Furosemide (Furosemide 40 Mg Tablet) 40 mg PO DAILY [facility] Magnesium Oxide (Magnesium Oxide 400 Mg Tablet) 400 mg PO QAM [facility] Metoprolol Tartrate (Metoprolol Tartrate 50 Mg Tab) 50 mg PO Q12HR [facility] Miscellaneous Information (Xanax And [place] Need To Be Renewed Or They Will Automatically Discontinue.) 1 each XX CLARIFY [facility] Stop: 01/09/25 00:00 Sodium Chloride (Saline 0.65% Rodrigo Soln 44 Ml Btl) 1 spray NASAL Q6HR PRN PRN Reason: Congestion Sodium Chloride (Sodium Chloride 500 Mg Tablet) 1,500 mg PO BID [facility] Last Admin: 12/11/24 17:40 Dose: 1,500 mg Tamsulosin HCl (Tamsulosin Hcl 0.4 Mg Capsule) 0.4 mg PO QAM [facility] Trazodone HCl (Trazodone Hcl 50 Mg Tablet) 50 mg PO HS PRN PRN Reason: Insomnia Vancomycin HCl (Vancomycin Hcl 125 Mg Oral Capsule) 125 mg PO DAILY [facility] Stop: 12/19/24 10:00 Vancomycin HCl (Vancomycin Hcl 125 Mg Oral Capsule) 125 mg PO Q48H KEVIN Stop: 01/01/25 10:00 Vancomycin HCl (Vancomycin Hcl 125 Mg Oral Capsule) 125 mg PO Q12HR [facility] Stop: 12/12/24 22:00 Meds Home Medications and Allergies Home Medications ?Medication ?Instructions ?Recorded ?Confirmed ?Type cyclosporine 0.05 % eye drops 1 drp EACH EYE Q12H #5.5 mL 03/18/21 11/30/24 Rx (Restasis MultiDose) terbinafine HCl 250 mg tablet 250 mg PO DAILY 09/03/23 11/30/24 History amlodipine 10 mg tablet 10 mg PO DAILY #90 tabs 04/0 03/1111/30/24 Rx spironolactone 50 mg tablet See Rx Instructions .Route 08/07/24 11/30/24 Rx .COMPLEX #90 tabs lisinopril 40 mg tablet 40 mg PO DAILY #90 tabs 09/1511/30/24 Rx ondansetron 4 mg disintegrating 4 mg PO Q6H PRN nausea and 11/01/24 11/30/24 Rx tablet vomiting #10 tabs acetaminophen 325 mg tablet 650 mg (2 x 325 mg) PO Q4H PRN 11/29/24 11/30/24 Rx Headache #30 tabs alprazolam 0.25 mg tablet 0.25 mg PO QHS PRN anxiety # 10 tabs 11/29/24 11/30/24 Rx apixaban 2.5 mg tablet (Eliquis) 2.5 mg PO Q12HR #60 t abs 11/29/24 11/30/24 Rx calcium 500 mg (as 1 tablet PO BIDWM #60 tabs 1 11/30/24 Rx carbonate)-vitamin D3 5 mcg (200 unit) tablet (Oyster Shell Calcium-Vitamin D3) furosemide 20 mg tablet 20 mg PO BID #60 tabs 11/30/24 Rx hydrocodone 5 mg-acetaminophen 325 1 tablet PO Q6H PRN pain #12 tabs 11/29/24 11/30/24 Rx mg tablet ipratropium 0.5 mg-albuterol 3 mg 3 ml inhalation Q6HR T #90 mL 11/29/24 11/30/24 Rx (2.5 mg base)/3 mL nebulization soln magnesium oxide 400 mg (241.3 mg 400 mg PO QAM #30 tab s 11/29/24 11/30/24 Rx magnesium) tablet metoprolol tartrate 50 mg tablet 50 mg PO BID #60 tabs 11/29/24 11/30/24 Rx sodium chloride 0.65 % nasal spray 1 spray intranasal Q6HR PRN 11/29/24 11/30/24 Rx aerosol (Saline Mist) Congestion #10 mL sodium chloride 1,000 mg soluble 1,000 mg PO BID #60 t abs 11/29/24 11/30/24 Rx tablet vancomycin 125 mg capsule 125 mg PO DAILY 11/29/24 History vancomycin 125 mg capsule 125 mg PO Q48H 11/29/2411/15 History vancomycin 125 mg capsule 125 mg PO Q8HR 11/29/2411/15 History vancomycin 250 mg capsule 125 mg PO Q12HR 11/29/24 History simvastatin 20 mg tablet 20 mg PO DAILY 12/01/2411/15 History trazodone 50 mg tablet 50 mg PO HS 12/01/24 5 History Allergies Allergy/AdvReac Type Severity Reaction Status Date / Time morphine Allergy Itching Verified 11/30/24 21:16 Vital Signs Vital Signs - 24 hr 12/08/24 14:00 12/08/24 19:55 12/08/24 20:00 Temperature 97.6 F 98.6 F Pulse Rate 71 74 Respiratory Rate 18 17 Blood Pressure 132/53 L 144/50 H Pulse Oximetry 96 95 95 Oxygen Delivery Nasal Cannula Oxygen Flow Rate 1 12/08/24 22:06 12/09/24 05:05 12/09/24 08:00 Temperature 96.8 F L Pulse Rate 74 71 Respiratory Rate 15 Blood Pressure 135/55 L Pulse Oximetry 94 94 Oxygen Delivery Nasal Cannula Oxygen Flow Rate 1 12/09/24 08:46 Temperature Pulse Rate 82 Respiratory Rate Blood Pressure Pulse Oximetry Oxygen Delivery Oxygen Flow Rate Exam Narrative alert thin female seen in room HOB elevated oxygen per NC dyspneic with short word strings NAD Const Other: thin extremities multiple blankets currently on a bedpan (I am too tired to get up to a commode HENMT Other: normocephalic gaunt oxygen per NC tongue midline MMM ? glossitis speech intelligible short word strings Eyes Other: EOMI anicteric sclera Neck Other: head forward Chest Other: no monitor Resp Other: oxygen per NC lungs clear anteriorly but limited lung excursion/equal no wheezes posteriorly decreased breath sounds at bases and on right mild dyspnea but able to speak Cardio Other: RR without murmur GI Other: distended but not taut NT to palpation bowel massage completed without tenderness abdominal fluid present but no distention of abdominal girth Other: purewick in place bladder does not feel distended rectal no incontinence or output depends placed Urinary Catheter Urinary Catheter: other (purewick) Back/Spine/Pelvis Other: assess when seated no severe kyphosis or scoliosis Skin Other: buttocks with no erythema impaired skin integrity poor skin turgor Neuro Other: alert appropriate THIN ATROPHIED MUSCLE BULK ARMS AND LEGS BUE no atrophy generally AROM and strength 3/5 good hand grasp no tremors no asterixis BLE assessed supine hip flexion 2-3-/5 knee extension 2-3/5 ADF EHL 3/5 PROM not to neutral sensation grossly intact no clonus no hoffmans cannot test STS fatigue balance endurance Extrem Other: grossly functional joints ADF PROM not to neutral but no clear foot drop Psych Other: alert appropriate well directed speech affect normal good insight recall and problem solving H&P: Results Labs Labs: Short CBC 12/09/24 Range/Units 05:01 WBC 5.7 (4.5-10.0) K/mm3 Hgb 7.6 L (12.0-15.0) g/dL Hct 24.8 L (37.0-47.0) % Plt Count 261 (150-375) k/mm3 BMP 12/09/24 05:01 Sodium 132 L Potassium 4.2 Chloride 96 L Carbon Dioxide 33 H BUN 21 H Creatinine 1.22 H Glucose 116 H Calcium 7.9 L Rehab Assessment and Plan (1) 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 Currently she has poor endurance dyspnea at rest resulting in limited power endurance and strength to complete [facility] Mobility Related Activities of Daily Living. She will require progressive mobility and activities to increase endurance b efore transfer to rehab. Barriers include fluid overload both ascites and pleural effusions and anasarca. Will need review of STS and orthostasis given her prolonged immobility and poor albumin/protein levels. Agree with out of bed to chair, ambulation as tolerated (2) Fluid overload: Code(s): E87.70 - Fluid overload, unspecified Status: Acute Assessment and Plan: with recurrent pleural effusions ascites anasarca/BLE edema specialists to review etiology and management resulting in the above. On rehab any fluid removal except diuresis is appropriate (3) Pleural effusion associated with hepatic disorder: Code(s): K76.9 - Liver disease, unspecified; J91.8 - Pleural effusion in other conditions classified elsewhere Status: Acute Assessment and Plan: Appreciate Dr. Márquez assessment Per Dr. Nguyễn patient presented with colitis on 11/01/[address] scan of the abdomen on 11/01/2024 and 11/03/2024 showed no pleural effusions. On 11/04/2024 she had small bilateral pleural effusions. 11/08/24; Later in the day patient had a left thoracentesis with 250 mL of yellow fluid removed. Her left effusion is consistent with an exudative, noninfected, macrophage predominant, non malignant effusion likely an inflammatory response related to her colitis with component of fluid overload from her acute kidney injury. 11/21/2024: Left thoracentesis with 500 mL of yellowish fluid. No studies sent. 12/01/2024: Right thoracentesis with 450 mL of straw-colored fluid. This represents an exudative, noninfected, macrophage predominant, cytology negative pleural effusion. 12/08/24: She has a right pleural effusion tapped Dec 01, 450 mL hazy yellow fluid with exudative findings, no growth on micro, mild increase in pleural fluid wbc, She does not have an underlying pulmonary pathologic process. These fluid results are not cordage sales representative of a pleural space infection such as parapneumonic infection, empyema, and she does not appear to have pneumonia on the CT scan. AGREE WITH NEED TO DETERMINE HEPATIC FUNCTION CAUSING RECURRENT EFFUSIONS. DDX autoimmune hepatitis ? unclear from current results Liver cirrhosis mentioned unclear if plans for work up (GI consulted did not address) Aware initial fluids likely with pancolitis. Agree with incentive spirometry and Cornet flutter valve for atelectasis. Appreciate overnight oximetry on room air tonight. (4) Anasarca: Code(s): R60.1 - Generalized edema Status: Acute Assessment and Plan: Currently patient continues to lose fluid with IV lasix no recent thoracenteses no discussion of paracenteses/management of ascites BLE edema improving Patient making gains-request procedures completed prior to transfer and stable fluid status that can be managed with oral diuretics. RECOMMEND ASSESSMENT OF ORTHOSTATICS GIVEN FLUID LOSS AND IMMOBILITY. (5) Hepatic dysfunction: Code(s): K76.89 - Other specified diseases of liver Status: Acute Assessment and Plan: Unclear of current condition with hepatic dysfunction/ascites and reported cirrhosis. Defer to specialists for evaluation.--autoimmune hepatitis etc DIURESIS CONTINUES LFTS improving consistent with hepatic stasis? with overload If ASCITES worsens recommend abdominal girth monitoring and review if even paracentesis appropriate Will education general manager referral be completed? (6) Clostridium difficile colitis: Code(s): A04.72 - Enterocolitis due to Clostridium difficile, not specified as recurrent Status: Acute Assessment and Plan: Patient had a positive C diff test on 11/09/2024 Problem: Enterocolitis due to Clostridium Difficile Interventions: Metronidazole complete from 11/08-11/15 - Per ID: Maintain planned pulse/taper with oral vancomycin. Currently at 250mg Q6 changed at 11/16. Would plan Q8 dosing of oral vancomycin starting 11/30 and then decrease to twice daily dosing on 12/07. Daily doses starting on 12/14 and then every other day dosing x2 weeks starting on 12/21. -Monitor stool output while tapering vanc -Zosyn discontinued -Leukocytosis and diarrhea improving -Continue Banatrol (7) Gait abnormality: Code(s): R26.9 - Unspecified abnormalities of gait and mobility Status: Acute Assessment and Plan: in the setting of debility immobility anasarca fatigue and malaise PT OT for functional mobility training, MRADL retraining, therapeutic exercise, HEP, endurance training, balance training, DME, fall prevention, review precautions, family teaching. (8) Malaise and fatigue: Code(s): R53.81 - Other malaise; R53.83 - Other fatigue Status: Acute Assessment and Plan: with prolonged immobility and pulmonary cardiac renal and hepatic dysfunction PT OT energy conservation DME (9) Urinary retention with incomplete bladder emptying: Code(s): R33.9 - Retention of urine, unspecified Status: Acute Assessment and Plan: Hydronephrosis and distended bladder on CT Bladder scan if over 400 place Gamble catheter while aggressively diuresing purewick NOT EFFECTIVE to resolve urinary retention with obstructive bladder (10) Acute kidney injury: Code(s): N17.9 - Acute kidney failure, unspecified Status: Acute Assessment and Plan: Problem: DONOVAN Interventions: Infection vs contrast related injury vs prerenal. Cr normal 2 days prior to admission -Nephrology following -Right IJ Cecil dialysis catheter placed 11/10 -Dialysis started on 11/10, discontinued now -Renal ultrasound without obstruction, urine electrolytes pre renal, urine eosinophils neg, CPK normal, mild proteinuria -Holding lisinopril and spironolactone -Gamble cath in place -Follow renal function labs and urine outpt recommend with aggressive diuresis gamble catheter to remain initially. ALSO given hydronephrosis noted with DONOVAN obstructive uropathy likely (addition ally I realize DONOVAN also secondary to change in fluid status hypotension etc. (11) Respiratory failure with hypoxia: Code(s): J96.91 - Respiratory failure, unspecified with hypoxia Status: Acute Assessment and Plan: Likely due to large pleural effusions appreciate dr Márquez input Wean oxygen as able increase sitting and mobility IS coronet RT to follow await ON pulse oximetry study (12) A-fib: Code(s): I48.91 - Unspecified atrial fibrillation Status: Acute Assessment and Plan: monitor hemodynamics anticoagulation Continue metoprolol (13) Pancreatic cyst: Code(s): K86.2 - Cyst of pancreas Status: Acute Assessment and Plan: Pancreatic cyst: CT yesterday: No interval change in 3 simple appearing cystic lesions at the body and tail the pancreas measuring up to 1.4 cm. The differential diagnosis includes pseudocyst, intraductal papillary mucinous neoplasm (IPMN), mucinous cystic neoplasm (MCN), and the less common serous cystadenoma and neuroendocrine tumor. Correlate for history of pancreatitis. Recommend 2 year follow-up pre and postcontrast MRI. CT on 11/05 showed moderate atrophy of the pancreas. Cystic pancreatic lesion of the body 1.5 x 1.6 cm incompletely evaluated. Lipase this admission is normal at 46. No known prior Hx of pancreatitis. Patient to follow up with GI outpatient for further evaluation and monitoring. No need for emergent evaluation, MRI and possible need for EUS can be determined during outpatient follow up visit Plan see recommendations about prior to transfer to rehab to ensure successful and safe reconditioning exercises and rehab to improve safe functional mobility endurance and MRADLs.
--- NOTE | 2024-12-09 12:29 | PM.IMPN ---
Progress Note: A&P Assessment and Plan (1) Acute hypoxic respiratory failure: Code(s): J96.01 - Acute respiratory failure with hypoxia Status: Acute Assessment and Plan: Patient readmitted on 11/30 for abnormal labs. She developed worsening oxygen requirement to 4L. Chest CT (11/30) showing moderate bilateral pleural effusions with complete collapse of the right lower lobe and partial collapse of the left lower lobe with dependent compressive atelectasis in the lingula, right middle and bilateral upper lobes. No pulmonary edema or pneumonia in the aerated portions of the lungs. No pericardial effusion. Right thoracentesis with removal of 450mL on 12/01: pH >7.5. SAAG <1.1, Pl Chol>55, LDH<[address] LDH/Serum LDH <0.[address] Prot/S Prot >0.5. Path negative for malignancy. AFB smear negative. Gram stain showing no organisms but moderate WBC. Appears a mixed sample: probably transudate with another process in play. Echo 11/07: EF 70% with Grade I diastolic dysfxn Able to be weaned to 1L. Chest CT 12/06 showing small left and moderate right pleural effusion with dependent consolidation and ground-glass opacities in the bilateral lower lobes. PETER 1:320 as a homogeneous pattern. UPEP with 2 M-spikes. UIF with Bence Quijano protein positive - kappa type. SIF with m-spike noted. Consider autoimmune hepatitis. Consider MM. Pulmonary following and appreciate their input Continue with bronchodilators prn. Continue with IV Lasix Wean O2 as tolerated. (2) Pleural effusion: Code(s): J90 - Pleural effusion, not elsewhere classified Status: Acute Assessment and Plan: As above. (3) Elevated liver enzymes: Code(s): R74.8 - Abnormal levels of other serum enzymes Status: Acute Assessment and Plan: Liver enzymes were climbing prior to discharge with AST peaking at 902 and ALT 667. TB/AlkPhos normal. Viral hepatitis panel negative. PETER positive 1:320 homogeneous. Anti-actin negative. Gamma not elevated. ANCA pending CT abdomen pelvis showed normal liver, GB and spleen. Small amount of reactive ascites. AST and ALT are trending down. Will have patient follow up with GI after discharge (4) Clostridium difficile colitis: Code(s): A04.72 - Enterocolitis due to Clostridium difficile, not specified as recurrent Status: Acute Assessment and Plan: Patient with known recent pancolitis 2nd to CDiff. Patient tested positive for C diff on 11/09. Currently on a tapering dose of oral Vancomycin CT abdomen pelvis showed fluid throughout the colon consistent with diarrhea, persistent wall thickening of the colon (mild at the cecum and moderate along the descending and proximal sigmoid colon) and more localized paracolonic inflammatory stranding along the sigmoid colon and would favor diverticulitis over colitis. Small bowel and appendix are normal. Small amount of likely reactive ascites but no organized abscess or free intraperitoneal gas. WBC normal and benign abdominal exam. Doubt diverticulitis at this time Outpatient colonoscopy by GI at some point in near future Continues to have formed stools (5) A-fib: Code(s): I48.91 - Unspecified atrial fibrillation Status: Acute Assessment and Plan: EKG on admission showing normal sinus rhythm. Continue with metoprolol Continue with Eliquis (6) Hypertension: Code(s): I10 - Essential (primary) hypertension Status: Chronic Assessment and Plan: Patient's blood pressure was reviewed on 12/09 Blood pressure remains well controlled. Will continue to monitor (7) Hyponatremia: Code(s): E87.1 - Hypo-osmolality and hyponatremia Status: Acute Assessment and Plan: Patient with chronic hyponatremia. Sodium running 127-132 Continue with sodium chloride supplementation (8) Bladder distension: Code(s): N32.89 - Other specified disorders of bladder Status: Acute Assessment and Plan: Patient with DONOVAN last admission resulting temporary HD 11/10 -> 11/14. This improved and Cr normalized. Cr on this admission was 0.85 CT Abd/pelvis showing mild bilateral hydroureteronephrosis which may be related to bladder outlet obstruction or neurogenic bladder with marked distention of the bladder. Palm placed but since removed on 12/05 Cr has worsened to 1.1-1.2 range without benefit with Palm in or out. Check renal US. (9) Anemia: Code(s): D64.9 - Anemia, unspecified Status: Acute Assessment and Plan: She has a normal baseline Hgb. Hgb trended down to 8-9 range last admission. Iron panel 11/21: total iron 17, TIBC 180, iron sat 9%, ferritin 162. B12/folate normal in August Thus far, Hgb mostly in the 708 range here No signs of active GI bleeding. Per GI, plan to discuss in the office outpatient if further evaluation and need for endoscopic evaluation to rule out GI source of blood loss or malabsorption Follow and transfuse if Hgb <7 to a stable Hgb Plan DVT prophylaxis: Eliquis Code status: Full Subjective Date/time seen: 12/09/24 12:29 Interval history: 78yo female with chronic pleural effusions, CHF and new AFib with RVR who presents from rehab with abnormal labs of increased liver enzymes on 11/30. Patient had a prolonged course Cesar (11/03 -> 11/29) due to: -- CHF with fluid overload and pleural effusions. EF 70% with Grade I diastolic dysfxn -- DONOVAN resulting in temporary HD 11/10 -> 11/14. -- CDiff Pancolitis -- Respiratory failure -- New AFib with RVR. Assuming care. Chart reviewed. SOB much better and down to 1L. No CP or abd pain. No back pain. Tolerating oral intake. Exam Narrative: AF 96.8 136/66 82 15 94% 1L Gen - NARD Chest - decreased BS in mid and lower right lung field and left lower lung field with egophony, nml RR CV - RRR S1/S2 Abd - soft, NT/ND Ext - trace periankle edema. Neuro - alert and appropriate Psych - nml mood and affect Skin - warm and dry Objective Data Vital Signs Vital Signs: Vital Signs - 24 hr 12/08/24 14:00 12/08/24 19:55 12/08/24 20:00 Temperature 97.6 F 98.6 F Pulse Rate 71 74 Respiratory Rate 18 17 Blood Pressure 132/53 L 144/50 H Pulse Oximetry 96 95 95 Oxygen Delivery Nasal Cannula Oxygen Flow Rate 1 12/08/24 22:06 12/09/24 05:05 12/09/24 08:00 Temperature 96.8 F L Pulse Rate 74 71 Respiratory Rate 15 Blood Pressure 135/55 L Pulse Oximetry 94 94 Oxygen Delivery Nasal Cannula Oxygen Flow Rate 1 12/09/24 08:46 Temperature Pulse Rate 82 Respiratory Rate Blood Pressure Pulse Oximetry Oxygen Delivery Oxygen Flow Rate Intake/Output Intake/Output: Intake & Output 12/06/24 12/07/24 12/08/24 12/09/24 23:59 23:59 23:59 23:59 Intake Total 720 1831 1914 480 Output Total 8580 379 3512 1000 Balance -830 1031 904 -520 Meds/Results Medications: Active Medications Generic Name Dose Route Start Last Admin Trade Name Freq PRN Reason Stop Dose Admin Acetaminophen 650 mg 11/30/24 16:31 Acetaminophen 325 Mg Tablet PO Q4H PRN Mild Pain (1-3) or Fever Hydrocodone Bitart/Acetaminophen 1 tab 11/30/24 22:12 Hydrocodone/Acetaminophen (*Crx) 5-325 Mg Tablet PO Q6H PRN Pain 4-6 Albuterol/Ipratropium 3 ml 12/08/24 10:36 Ipratropium 0.5 Mg/Albuterol Sulfate 2.5 Mg (Base) Ampul.Neb 3 Ml INHALATION Q6HRT PRN Shortness Of Breath Or Wheezing Alprazolam 0.25 mg 11/30/24 22:12 12/08/24 22:06 Alprazolam (*Crx) 0.25 Mg Tablet PO 0.25 mg QHS PRN Administration Anxiety Amlodipine Besylate 10 mg 12/04/24 09:00 12/09/24 08:47 Amlodipine Besylate 10 Mg Tablet PO 10 mg DAILY KEVIN Administration Apixaban 2.5 mg 12/03/24 21:00 12/09/24 08:48 Apixaban 2.5 Mg Tablet PO 2.5 mg Q12HR KEVIN Administration Atorvastatin Calcium 10 mg 12/01/24 09:00 12/09/24 08:47 Atorvastatin 10 Mg Tablet PO 10 mg DAILY KEVIN Administration Calcium Carbonate 500 mg 12/01/24 08:00 12/09/24 08:46 Calcium/Vitamin D 500 Mg/5 Mcg (200 I.U.) Tablet PO 500 mg BIDWM KEVIN Administration Cyclosporine 1 drop 11/30/24 22:15 12/09/24 08:48 Cyclosporine 0.4 Ml Ophth Solution EACH EYE 1 drop Q12HR KEVIN Administration Docusate Sodium 100 mg 11/30/24 16:31 Docusate Sodium 100 Mg Capsule PO BID PRN Constipation Furosemide 40 mg 12/04/24 09:00 12/09/24 08:48 Furosemide Inj 40 Mg/4 Ml Vial IV PUSH 40 mg DAILY KEVIN Administration Magnesium Oxide 400 mg 12/01/24 09:00 12/09/24 08:47 Magnesium Oxide 400 Mg Tablet PO 400 mg QAM KEVIN Administration Metoprolol Tartrate 50 mg 12/01/24 09:00 12/09/24 08:46 Metoprolol Tartrate 50 Mg Tab PO 50 mg Q12HR KEVIN Administration Sodium Chloride 1 spray 11/30/24 22:12 Saline 0.65% Rodrigo Soln 44 Ml Btl NASAL Q6HR PRN Congestion Sodium Chloride 1,500 mg 12/01/24 09:00 12/09/24 08:45 Sodium Chloride 500 Mg Tablet PO 1,500 mg BID KEVIN Administration Tamsulosin HCl 0.4 mg 12/01/24 09:00 12/09/24 08:48 Tamsulosin Hcl 0.4 Mg Capsule PO 0.4 mg QAM KEVIN Administration Trazodone HCl 50 mg 11/30/24 23:46 12/08/24 22:06 Trazodone Hcl 50 Mg Tablet PO 50 mg HS PRN Administration Insomnia Vancomycin HCl 125 mg 12/13/24 09:00 Vancomycin Hcl 125 Mg Oral Capsule PO 12/19/24 10:00 DAILY KEVIN Vancomycin HCl 125 mg 12/20/24 09:00 Vancomycin Hcl 125 Mg Oral Capsule PO 01/01/25 10:00 Q48H KEVIN Vancomycin HCl 125 mg 12/06/24 09:00 12/09/24 08:48 Vancomycin Hcl 125 Mg Oral Capsule PO 12/12/24 22:00 125 mg Q12HR KEVIN Administration Radiology Results: ITS Impressions Chest/Abdomen/Pelvis CT 11/30/24 15:30 IMPRESSION: 1. No significant change in a moderate-sized bilateral pleural effusions with complete collapse of the right lower lobe, partial collapse of the left lower lobe and additional mild dependent atelectasis in the remaining lobes of both lungs. 2. Radiographically uncomplicated colitis versus more likely descending colon diverticulitis. 3. Small amount of scattered ascites with no organized abscess or free intraperitoneal gas. 4. No interval change in 3 simple appearing cystic lesions at the body and tail the pancreas measuring up to 1.4 cm. The differential diagnosis includes pseudocyst, intraductal papillary mucinous neoplasm (IPMN), mucinous cystic neoplasm (MCN), and the less common serous cystadenoma and neuroendocrine tumor. Correlate for history of pancreatitis. Recommend 2 year follow-up pre and postcontrast MRI. 5. 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 Thoracentesis Ultrasound 12/01/24 10:20 IMPRESSION: 1. Successful ultrasound-guided thoracentesis yielding 450 mL of clear straw-colored fluid. Chest CT 12/06/24 15:35 IMPRESSION: 1. Small left and moderate-sized right posterior layering pleural effusions. 2. Dependent consolidation and groundglass opacities in the bilateral lower lobes with associated volume loss and favor atelectasis over pneumonia. 3. 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 Chest X-Ray 12/08/24 14:47 Impression: CHF. Superimposed pneumonia suspected with free-flowing moderate right pleural effusion. The findings appear slightly progressed compared to the previous exam Labs Labs: Laboratory Results - last 24 hr 12/09/24 05:01 WBC 5.7 RBC 2.62 L Hgb 7.6 L Hct 24.8 L MCV 94.7 MCH 29.0 MCHC 30.6 L RDW 14.9 H Plt Count 261 MPV 9.4 Immature Gran % (Auto) 0.9 H Neut % (Auto) 55.9 Lymph % (Auto) 28.9 [place] % (Auto) 11.0 H Eos % (Auto) 2.6 Baso % (Auto) 0.7 Lymph # (Auto) 1.66 [place] # (Auto) 0.6 Eos # (Auto) 0.2 Baso # (Auto) 0.0 Abs Immat Gran (auto) 0.05 H Absolute Neuts (auto) 3.2 Absolute Nucleated RBC 0.000 Nucleated RBC % 0.0 Sodium 132 L Potassium 4.2 Chloride 96 L Carbon Dioxide 33 H Anion Gap 3 L BUN 21 H Creatinine 1.22 H Estim Creat Clear Calc 33 Estimated GFR 43 L Glucose 116 H Calcium 7.9 L Anti-Proteinase 3 FEIA c/o 1.9 Cancelled Anti-Myeloperoxidase Cancelled
[2024-12-09] MEDS: ALPRAZolam (*CRX) 0.25 MG TABLET PO (21:57)
[2024-12-10] VITALS (7 sets, daily range): BP systolic 128–140; BP diastolic 50–59; PULSE 65–72; RESP 16–18; TEMP 36.1–36.8; O2SAT 93–96
[2024-12-10 05:13] LABS: Hematocrit 23.2 % (37.0-47.0); Hemoglobin 7.3 g/dL (12.0-15.0); Immature Granulocyte Percent A 0.9 % (0-0.5); Lymphocytes Absolute Auto 1.82 K/mm3 (0.9-3.2); Mean Corpuscular HGB Conc 31.5 g/dl (32-36); Mean Corpuscular Hemoglobin 29.4 pg (26-34); Mean Corpuscular Volume 93.5 fl (80-100); Nucleated Red Blood Cells Absolute Auto 0.000 K/mm3 (0.0-0.012); Nucleated Red Blood Cells Perc 0.0 % (0.0-0.2); Platelet Count Result 261 k/mm3 (150-375); Red Blood Count 2.48 M/mm3 (4.2-5.4); White Blood Count 5.8 K/mm3 (4.5-10.0)
[2024-12-10 05:29] LABS: Alanine Aminotransferase 86 U/L (6-35); Albumin Level 2.7 g/dL (3.5-5.1); Alkaline Phosphatase 115 U/L (38-126); Anion Gap 3 mmol/L (4-12); Aspartate Amino Transferase 48 U/L (14-36); Bilirubin,Total 0.4 mg/dL (0.2-1.3); Blood Urea Nitrogen 18 mg/dL (7-17); Calcium 7.5 mg/dL (8.4-10.2); Carbon Dioxide 30 mmol/L (22-30); Chloride 98 mmol/L (98-107); Estimated CRCL calculation 35 ml/min; Estimated Glomerular Filt Rate 46; Glucose 111 mg/dL (65-110); Magnesium 1.2 mg/dL (1.6-2.3); Potassium 3.5 mmol/L (3.4-5.0); Sodium 131 mmol/L (137-145); Total Protein 5.6 g/dL (6.3-8.2)
[2024-12-10] MEDS: FUROSEMIDE INJ 40 MG/4 ML VIAL IV PUSH (08:50)
[2024-12-10] MEDS: TAMSULOSIN HCL 0.4 MG CAPSULE PO (08:51)
[2024-12-10] MEDS: CALCIUM/VITAMIN D 500 MG/5 MCG (200 I.U.) TABLET PO ×2 (08:51→17:48)
[2024-12-10] MEDS: APIXABAN 2.5 MG TABLET PO ×2 (08:51→21:41)
[2024-12-10] MEDS: MAGNESIUM OXIDE 400 MG TABLET PO (08:51)
[2024-12-10] MEDS: ATORVASTATIN 10 MG TABLET PO (08:51)
[2024-12-10] MEDS: POTASSIUM CHLORIDE 20 MEQ ER TABLET 40 MEQ PO (08:52)
[2024-12-10] MEDS: METOPROLOL TARTRATE 50 MG TAB PO ×2 (08:52→21:41)
[2024-12-10] MEDS: SODIUM CHLORIDE 500 MG TABLET 1500 MG PO ×2 (08:53→17:49)
[2024-12-10] MEDS: cycloSPORINE 0.4 ML OPHTH SOLUTION 1 DROP EACH EYE ×2 (08:53→21:41)
[2024-12-10] MEDS: VANCOMYCIN HCL 125 MG ORAL CAPSULE PO ×2 (08:54→21:41)
[2024-12-10] MEDS: MAGNESIUM SULFATE 3GM/D5W100ML 3 GM/100 ML BAG IVPB (09:01)
--- NOTE | 2024-12-10 13:16 | P.PNIM_ITS ---
Progress Note: A&P Assessment and Plan (1) Acute hypoxic respiratory failure: Code(s): J96.01 - Acute respiratory failure with hypoxia Status: Acute Assessment and Plan: Patient readmitted on 11/30 for abnormal labs. She developed worsening oxygen requirement to 4L. Chest CT (11/30) showing moderate bilateral pleural effusions with complete collapse of the right lower lobe and partial collapse of the left lower lobe with dependent compressive atelectasis in the lingula, right middle and bilateral upper lobes. No pulmonary edema or pneumonia in the aerated portions of the lungs. No pericardial effusion. Right thoracentesis with removal of 450mL on 12/01: pH >7.5. SAAG <1.1, Pl Chol>55, LDH<[address] LDH/Serum LDH <0.[address] Prot/S Prot >0.5. Path negative for malignancy. AFB smear negative. Gram stain showing no organisms but moderate WBC. Appears a mixed sample: probably transudate with another process in play. Echo 11/07: EF 70% with Grade I diastolic dysfxn Able to be weaned to 1L. Chest CT 12/06 showing small left and moderate right pleural effusion with dependent consolidation and ground-glass opacities in the bilateral lower lobes. PETER 1:320 as a homogeneous pattern. UPEP with 2 M-spikes. UIF with Bence Quijano protein positive - kappa type. SIF with M-spike noted. Consider autoimmune hepatitis. Consider MM. Pulmonary following and appreciate their input Continue with bronchodilators prn. Continue with IV Lasix Wean O2 as tolerated. (2) Pleural effusion: Code(s): J90 - Pleural effusion, not elsewhere classified Status: Acute Assessment and Plan: As above. (3) Elevated liver enzymes: Code(s): R74.8 - Abnormal levels of other serum enzymes Status: Acute Assessment and Plan: Liver enzymes were climbing prior to discharge with AST peaking at 902 and ALT 667. TB/AlkPhos normal. Viral hepatitis panel negative. PETER positive 1:320 homogeneous. Anti-actin negative. Gamma not elevated. ANCA pending CT abdomen pelvis showed normal liver, GB and spleen. Small amount of reactive ascites. AST and ALT are trending down. Will have patient follow up with GI after discharge (4) Clostridium difficile colitis: Code(s): A04.72 - Enterocolitis due to Clostridium difficile, not specified as recurrent Status: Acute Assessment and Plan: Patient with known recent pancolitis 2nd to CDiff. Patient tested positive for C diff on 11/09. Currently on a tapering dose of oral Vancomycin CT abdomen pelvis showed fluid throughout the colon consistent with diarrhea, persistent wall thickening of the colon (mild at the cecum and moderate along the descending and proximal sigmoid colon) and more localized paracolonic inflammatory stranding along the sigmoid colon and would favor diverticulitis over colitis. Small bowel and appendix are normal. Small amount of likely reactive ascites but no organized abscess or free intraperitoneal gas. WBC normal and benign abdominal exam. Doubt diverticulitis at this time Diarrhea has resolved. Outpatient colonoscopy by GI at some point in near future (5) A-fib: Code(s): I48.91 - Unspecified atrial fibrillation Status: Acute Assessment and Plan: EKG on admission showing normal sinus rhythm. Continue with metoprolol Continue with Eliquis (6) Hypertension: Code(s): I10 - Essential (primary) hypertension Status: Chronic Assessment and Plan: Patient's blood pressure was reviewed on 12/10 Blood pressure remains well controlled. Will continue to monitor (7) Hyponatremia: Code(s): E87.1 - Hypo-osmolality and hyponatremia Status: Acute Assessment and Plan: Patient with chronic hyponatremia. Sodium running 127-132 Continue with fluid restriction and sodium chloride supplementation (8) Bladder distension: Code(s): N32.89 - Other specified disorders of bladder Status: Acute Assessment and Plan: Patient with DONOVAN last admission resulting temporary HD 11/10 -> 11/14. This improved and Cr normalized. Cr on this admission was 0.85 CT Abd/pelvis showing mild bilateral hydroureteronephrosis which may be related to bladder outlet obstruction or neurogenic bladder with marked distention of the bladder. Holland placed but since removed on 12/05 Cr has worsened to 1.1-1.2 range without benefit with Holland in or out. Renal US showing no hydronephrosis. PVR 328mL. (9) Anemia: Code(s): D64.9 - Anemia, unspecified Status: Acute Assessment and Plan: She has a normal baseline Hgb. Hgb trended down to 8-9 range last admission. Iron panel 11/21: total iron 17, TIBC 180, iron sat 9%, ferritin 162. B12/folate normal in August Urine protein negative here. Thus far, Hgb mostly in the 708 range here No signs of active GI bleeding. Per GI, plan to discuss in the office outpatient if further evaluation and need for endoscopic evaluation to rule out GI source of blood loss or malabsorption Follow and transfuse if Hgb <7 to a stable Hgb Plan DVT prophylaxis: Eliquis Code status: Full Subjective Date/time seen: 12/10/24 13:16 Interval history: 78yo female with chronic pleural effusions, CHF and new AFib with RVR who presents from rehab with abnormal labs of increased liver enzymes on 11/30. Patient had a prolonged course Cesar (11/03 -> 11/29) due to: -- CHF with fluid overload and pleural effusions. EF 70% with Grade I diastolic dysfxn -- DONOVAN resulting in temporary HD 11/10 -> 11/14. -- CDiff Pancolitis -- Respiratory failure -- New AFib with RVR. Slept well. Feels SOB today. No diarrhea. Not out of bed much. Exam Narrative: AF 97.0 138/50 72 16 93% 2L Gen - NARD Chest - dull to percussion and decreased BS mid and lower lung field on the right and lower left. mild conversational dyspnea CV - RRR S1/S2 Abd - soft, NT/ND Ext - trace periankle edema. Psych - nml mood and affect Skin - warm and dry Objective Data Vital Signs Vital Signs: Vital Signs - 24 hr 12/09/24 14:00 12/09/24 19:37 12/09/24 20:00 Temperature 98.2 F 97.1 F L Pulse Rate 74 71 Respiratory Rate 18 16 Blood Pressure 125/56 L 138/53 L Pulse Oximetry 96 96 97 Oxygen Delivery Nasal Cannula Oxygen Flow Rate 1 12/09/24 21:57 12/10/24 05:29 12/10/24 08:52 Temperature 97.0 F L Pulse Rate 71 68 72 Respiratory Rate 16 Blood Pressure 138/50 L Pulse Oximetry 93 Oxygen Delivery Oxygen Flow Rate 12/10/24 08:55 Temperature Pulse Rate Respiratory Rate Blood Pressure Pulse Oximetry 93 Oxygen Delivery Nasal Cannula Oxygen Flow Rate 2 Intake/Output Intake/Output: Intake & Output 12/07/24 12/08/24 12/09/24 12/10/24 23:59 23:59 23:59 23:59 Intake Total 1831 1914 1880 480 Output Total 800 1010 2500 700 Balance 1031 904 -620 -220 Meds/Results Medications: Active Medications Generic Name Dose Route Start Last Admin Trade Name Freq PRN Reason Stop Dose Admin Acetaminophen 650 mg 11/30/24 16:31 Acetaminophen 325 Mg Tablet PO Q4H PRN Mild Pain (1-3) or Fever Hydrocodone Bitart/Acetaminophen 1 tab 11/30/24 22:12 Hydrocodone/Acetaminophen (*Crx) 5-325 Mg Tablet PO Q6H PRN Pain 4-6 Albuterol/Ipratropium 3 ml 12/08/24 10:36 Ipratropium 0.5 Mg/Albuterol Sulfate 2.5 Mg (Base) Ampul.Neb 3 Ml INHALATION Q6HRT PRN Shortness Of Breath Or Wheezing Alprazolam 0.25 mg 11/30/24 22:12 12/09/24 21:57 Alprazolam (*Crx) 0.25 Mg Tablet PO 0.25 mg QHS PRN Administration Anxiety Amlodipine Besylate 10 mg 12/04/24 09:00 12/10/24 08:51 Amlodipine Besylate 10 Mg Tablet PO 10 mg DAILY KEVIN Administration Apixaban 2.5 mg 12/03/24 21:00 12/10/24 08:51 Apixaban 2.5 Mg Tablet PO 2.5 mg Q12HR KEVIN Administration Atorvastatin Calcium 10 mg 12/01/24 09:00 12/10/24 08:51 Atorvastatin 10 Mg Tablet PO 10 mg DAILY KEVIN Administration Calcium Carbonate 500 mg 12/01/24 08:00 12/10/24 08:51 Calcium/Vitamin D 500 Mg/5 Mcg (200 I.U.) Tablet PO 500 mg BIDWM KEVIN Administration Cyclosporine 1 drop 11/30/24 22:15 12/10/24 08:53 Cyclosporine 0.4 Ml Ophth Solution EACH EYE 1 drop Q12HR KEVIN Administration Docusate Sodium 100 mg 11/30/24 16:31 Docusate Sodium 100 Mg Capsule PO BID PRN Constipation Furosemide 40 mg 12/04/24 09:00 12/10/24 08:50 Furosemide Inj 40 Mg/4 Ml Vial IV PUSH 40 mg DAILY KEVIN Administration Magnesium Oxide 400 mg 12/01/24 09:00 12/10/24 08:51 Magnesium Oxide 400 Mg Tablet PO 400 mg QAM EKVIN Administration Metoprolol Tartrate 50 mg 12/01/24 09:00 12/10/24 08:52 Metoprolol Tartrate 50 Mg Tab PO 50 mg Q12HR KEVIN Administration Miscellaneous Information 1 each 12/10/24 00:01 Xanax And [place] Need To Be Renewed Or They Will Automatically Discontinue. XX 01/09/25 00:00 CLARIFY KEVIN Sodium Chloride 1 spray 11/30/24 22:12 Saline 0.65% Rodrigo Soln 44 Ml Btl NASAL Q6HR PRN Congestion Sodium Chloride 1,500 mg 12/01/24 09:00 12/10/24 08:53 Sodium Chloride 500 Mg Tablet PO 1,500 mg BID KEVIN Administration Tamsulosin HCl 0.4 mg 12/01/24 09:00 12/10/24 08:51 Tamsulosin Hcl 0.4 Mg Capsule PO 0.4 mg QAM KEVIN Administration Trazodone HCl 50 mg 11/30/24 23:46 12/09/24 21:57 Trazodone Hcl 50 Mg Tablet PO 50 mg HS PRN Administration Insomnia Vancomycin HCl 125 mg 12/13/24 09:00 Vancomycin Hcl 125 Mg Oral Capsule PO 12/19/24 10:00 DAILY KEVIN Vancomycin HCl 125 mg 12/20/24 09:00 Vancomycin Hcl 125 Mg Oral Capsule PO 01/01/25 10:00 Q48H KEVIN Vancomycin HCl 125 mg 12/06/24 09:00 12/10/24 08:54 Vancomycin Hcl 125 Mg Oral Capsule PO 12/12/24 22:00 125 mg Q12HR KEVIN Administration Radiology Results: ITS Impressions Chest/Abdomen/Pelvis CT 11/30/24 15:30 IMPRESSION: 1. No significant change in a moderate-sized bilateral pleural effusions with complete collapse of the right lower lobe, partial collapse of the left lower lobe and additional mild dependent atelectasis in the remaining lobes of both lungs. 2. Radiographically uncomplicated colitis versus more likely descending colon diverticulitis. 3. Small amount of scattered ascites with no organized abscess or free intraperitoneal gas. 4. No interval change in 3 simple appearing cystic lesions at the body and tail the pancreas measuring up to 1.4 cm. The differential diagnosis includes pseudocyst, intraductal papillary mucinous neoplasm (IPMN), mucinous cystic neoplasm (MCN), and the less common serous cystadenoma and neuroendocrine tumor. Correlate for history of pancreatitis. Recommend 2 year follow-up pre and postcontrast MRI. 5. 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 Thoracentesis Ultrasound 12/01/24 10:20 IMPRESSION: 1. Successful ultrasound-guided thoracentesis yielding 450 mL of clear straw- colored fluid. Chest CT 12/06/24 15:35 IMPRESSION: 1. Small left and moderate-sized right posterior layering pleural effusions. 2. Dependent consolidation and groundglass opacities in the bilateral lower lobes with associated volume loss and favor atelectasis over pneumonia. 3. 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 Chest X-Ray 12/08/24 14:47 Impression: CHF. Superimposed pneumonia suspected with free-flowing moderate right pleural effusion. The findings appear slightly progressed compared to the previous exam Renal Ultrasound 12/10/24 11:24 IMPRESSION: 1. No hydronephrosis. 2. Post void bladder volume residual 3280 mL. Labs Labs: Laboratory Results - last 24 hr 12/10/24 05:00 WBC 5.8 RBC 2.48 L Hgb 7.3 L Hct 23.2 L MCV 93.5 MCH 29.4 MCHC 31.5 L RDW 14.9 H Plt Count 261 MPV 9.4 Immature Gran % (Auto) 0.9 H Neut % (Auto) 52.2 Lymph % (Auto) 31.3 [place] % (Auto) 12.0 H Eos % (Auto) 3.1 Baso % (Auto) 0.5 Lymph # (Auto) 1.82 [place] # (Auto) 0.7 H Eos # (Auto) 0.2 Baso # (Auto) 0.0 Abs Immat Gran (auto) 0.05 H Absolute Neuts (auto) 3.0 Absolute Nucleated RBC 0.000 Nucleated RBC % 0.0 Sodium 131 L Potassium 3.5 Chloride 98 Carbon Dioxide 30 Anion Gap 3 L BUN 18 H Creatinine 1.14 H Estim Creat Clear Calc 35 Estimated GFR 46 L Glucose 111 H Calcium 7.5 L Phosphorus 3.6 Magnesium 1.2 L Total Bilirubin 0.4 AST 48 H ALT 86 H Alkaline Phosphatase 115 Total Protein 5.6 L Albumin 2.7 L
[2024-12-10] MEDS: ALPRAZolam (*CRX) 0.25 MG TABLET PO (21:41)
[2024-12-11] VITALS (7 sets, daily range): BP systolic 129–135; BP diastolic 46–49; PULSE 69–76; RESP 18–20; TEMP 36.3–37; O2SAT 90–95
[2024-12-11 05:00] LABS: Hematocrit 23.9 % (37.0-47.0); Hemoglobin 7.5 g/dL (12.0-15.0); Immature Granulocyte Percent A 0.6 % (0-0.5); Lymphocytes Absolute Auto 1.66 K/mm3 (0.9-3.2); Mean Corpuscular HGB Conc 31.4 g/dl (32-36); Mean Corpuscular Hemoglobin 29.6 pg (26-34); Mean Corpuscular Volume 94.5 fl (80-100); Nucleated Red Blood Cells Absolute Auto 0.000 K/mm3 (0.0-0.012); Nucleated Red Blood Cells Perc 0.0 % (0.0-0.2); Platelet Count Result 254 k/mm3 (150-375); Red Blood Count 2.53 M/mm3 (4.2-5.4); White Blood Count 5.3 K/mm3 (4.5-10.0)
[2024-12-11 05:38] LABS: Alanine Aminotransferase 75 U/L (6-35); Albumin Level 2.8 g/dL (3.5-5.1); Alkaline Phosphatase 106 U/L (38-126); Anion Gap 4 mmol/L (4-12); Aspartate Amino Transferase 43 U/L (14-36); Bilirubin,Total 0.6 mg/dL (0.2-1.3); Blood Urea Nitrogen 16 mg/dL (7-17); Calcium 7.7 mg/dL (8.4-10.2); Carbon Dioxide 31 mmol/L (22-30); Chloride 97 mmol/L (98-107); Estimated CRCL calculation 37 ml/min; Estimated Glomerular Filt Rate 51; Glucose 110 mg/dL (65-110); Magnesium 1.9 mg/dL (1.6-2.3); Potassium 3.9 mmol/L (3.4-5.0); Sodium 132 mmol/L (137-145); Total Protein 5.8 g/dL (6.3-8.2)
[2024-12-11] MEDS: FUROSEMIDE INJ 40 MG/4 ML VIAL IV PUSH (09:22)
[2024-12-11] MEDS: TAMSULOSIN HCL 0.4 MG CAPSULE PO (09:23)
[2024-12-11] MEDS: ATORVASTATIN 10 MG TABLET PO (09:23)
[2024-12-11] MEDS: MAGNESIUM OXIDE 400 MG TABLET PO (09:23)
[2024-12-11] MEDS: SODIUM CHLORIDE 500 MG TABLET 1500 MG PO ×2 (09:23→17:40)
[2024-12-11] MEDS: METOPROLOL TARTRATE 50 MG TAB PO ×2 (09:24→21:05)
[2024-12-11] MEDS: CALCIUM/VITAMIN D 500 MG/5 MCG (200 I.U.) TABLET PO ×2 (09:27→17:40)
[2024-12-11] MEDS: VANCOMYCIN HCL 125 MG ORAL CAPSULE PO ×2 (09:27→22:06)
[2024-12-11] MEDS: cycloSPORINE 0.4 ML OPHTH SOLUTION 1 DROP EACH EYE ×2 (09:27→21:06)
[2024-12-11] MEDS: APIXABAN 2.5 MG TABLET PO ×2 (09:27→21:05)
--- NOTE | 2024-12-11 09:54 | PM.PNPUL ---
Progress Note: A&P Assessment and Plan (1) Pleural effusion: Code(s): J90 - Pleural effusion, not elsewhere classified Status: Acute Assessment and Plan: patient presented with colitis on 11/01/[address] scan of the abdomen on 11/01/2024 and 11/03/2024 showed no pleural effusions. On 11/04/2024 she had small bilateral pleural effusions. 11/08/24; Later in the day patient had a left thoracentesis with 250 mL of yellow fluid removed. PH 7.46. g stain with many white blood cells, no organism seen. White blood cells 874 with a differential neutrophils 26%, lymphocytes 2%, monocytes 7%, macrophages 57%, mesothelial cells 8%. Pleural LDH 226: Serum LDH 262 with ratio of 0.86. Total protein pleural 2.7: Serum total protein 5.2 with ratio of 0.52. Serum albumin 2.6, pleural albumin 1.7 with a gradient of 0.9. Cytology negative. Fungal cultures negative. Her left effusion is consistent with an exudative, noninfected, macrophage predominant, non malignant effusion likely an inflammatory response related to her colitis with component of fluid overload from her acute kidney injury. 11/21/2024: Left thoracentesis with 500 mL of yellowish fluid. No studies sent. 12/01/2024: Right thoracentesis with 450 mL of straw-colored fluid. G stain no organisms seen, many white blood cells. White blood cells 1644 with differential neutrophils 4%, lymphocytes 36%, monocytes 3%, macrophages 57%, LDH 187 in the pleural: Serum LDH 426 with a ratio of 0.44. Pleural total protein 3.0: Serum total protein 5.2 with a ratio of 0.58. Serum albumin 2.9, pleural albumin 2.1 with a gradient of 0.8. Glucose 109, amylase 14, cholesterol 58, triglycerides 27, cytology negative. Fungal and AFB cultures pending. This represents an exudative, noninfected, macrophage predominant, cytology negative pleural effusion. 12/08/24: She has a right pleural effusion tapped Dec 01, 450 mL hazy yellow fluid with exudative findings, no growth on micro, mild increase in pleural fluid wbc, Sept 24 thoracentesis on the Left side was exudative related to her colitis with a component of fluid overload from her acute kidney injury, and the kidney injury is much improved. She tells me that she had another thoracentesis on Left, Nov 21 500 mL fluid removed from the left side, no labs tested. She does not have an underlying pulmonary pathologic process. These fluid results are not manufacturers representative of a pleural space infection such as parapneumonic infection, empyema, and she does not appear to have pneumonia on the CT scan. With her positive PETER 1:320, recent spike in liver enzymes, swelling, anasarca, I think that she may have a hepatic reason for recurrent effusion. She may have autoimmune hepatitis. She may need need additional antibody testing including ANCA antibodies and anti-smooth muscle antibodies. She is on IV Lasix which is helping reduce edema. She is not able to go to rehab today for this reason, still on IV Lasix. Her DONOVAN is better, required 3 HD sessions last month for multifactorial acute kidney injury during an episode of C diff colitis with sepsis, contrast for imaging, atrial flutter requiring cardioversion. Her O2 requirement is low, currently 1 L. saturation is 91-92%. Not sure if she has enough fluid tp remove; her CXR 12/04 is improved, she is on 1 L, thoracentesis will not prevent it from coming back until the underlying cause is treated. Her liver enzymes are normalizing, her kidney the values are improved compared to November 10, BUN was 95 creatinine 4.51, current BUN is 21 creatinine 1.17 with creatinine clearance 45-50. Plan: Lateral decubitus films to look for pleural fluid layering. Tapping fluid is only a temporary fix for effusions. Not clear why she has had 2 taps on the Left and one on the Right. These have not been infected, most like are due to combination of kidney, liver and cardiac processes with pancolitis and inflammatory fluid moving from abdomen to pleural space. Continue O2 to maintain sat 90-91%, pulmonary hygiene with Cornet valve, out patient testing after she is discharged from rehab. She has had AVALOS for a year and a half. I sent an order for ANCA antibodies with high PETER and liver disease. 12/11/2024: Patient tells me she has no rest shortness of breath. She has dyspnea on exertion when she walks from the bed to the chair. She denies fever, phlegm or hemoptysis. She has a dry cough worse when she moves and takes deep breaths. She has no pedal edema. When I enter the room she was on 1 L nasal cannula saturations 95%. I decreased her to room air and after 12 minutes her saturations were 93%. She is afebrile. White blood cell count 5.3, creatinine 1.05. AST is 43, ALT 75, alk-phos 106. Yesterday she was -980 mL, cumulative she is -9.5 L since admission. Her weight today is 70 kilos. Plan: From a pulmonary perspective patient had no underlying lung disease and no pleural effusions when she was admitted with colitis on 11/01/24. Patient continues to improve. I will repeat a chest x-ray today to follow her right pleural effusion. I will check a BNP. Patient is on 40 Lasix IV q.day with good diuresis since admission and decreasing weight to 70 kilos. Of note, her admission weight on 11/01/2024 was 67.7 kg. Agree with out of bed to chair, ambulation as tolerated, incentive spirometry and Cornet flutter valve for atelectasis. I will check an overnight oximetry on room air tonight. She has a positive PETER with homogeneous pattern and I will send an PETER with reflex to 11 auto antibodies. Anca is pending. Discussed with Dr. Johnson. Will follow with you. Subjective Date/time seen: 12/11/24 09:54 Interval history: 12/08/24: pt was seen Dec 08, 2024 at 11:00 am, Room 347, Yasir and her brother John are present. NEW: Berenice Alex is 78 years old, was well a month ago, Oct 30 was at home taking care of her and dog. She was admitted to [facility] and stayed here for a month, had C diff colitis with sepsis, atrial flutter with cardioversion, had acute kidney injury and required 3 episodes of hemodialysis, acute hypoxemic respiratory failure requiring EZ Pap and Airvo with oxygen requirements up to 70%, she had bilateral atelectasis; Had thoracentesis Left Nov 08 and Nov 21 with 500 mL fluid removed from the left side, no labs tested; went to rehab on November 29 for 12 hours, labs were sent and she had acute increase in her liver enzymes, AST was 190 on November 28 and ALT was 114, by November 30 AST was 902 and ALT was 608; sent back to the hospital on November 30 and admitted on the . Since then the liver enzymes AST and ALT have decreased. GI consult was obtained, diagnoses included pancreatic cyst, increased LFTS, cirrhosis, anemia. Thoracentesis Dec 01 = RIGHT side, 450 cc of fluid was removed; pH greater than 7.50, yellow, hazy, RBCs less than 2000, white blood cells elevated 1644, 4% neutrophils, 36% lymphocytes, 5% monocytes, 57% macrophages, pleural fluid chemistry showed glucose 109, protein 3.0, albumin 2.1, LDH 187, amylase 14, cholesterol 58, triglycerides 27. This is consistent with an exudative noninfected macrophage predominant effusion with mild elevation in white blood cell count, no organisms, moderate WBCs; fungal culture initiated and AFB smear is negative with culture to be completed within 6 weeks. She had a thoracentesis opposite side, 11/08, LEFT side, 250 ml removed, Normal pH 7.46, RBC less than 2000, WBC 874, 26% neutrophils, 2% lymphocytes, 7% monocytes, 57% macrophages 8% mesothelial cells glucose 106. Albumin 1.7. LDH 226, consistent with exudative non infected macrophage predominant effusion with inflammation related to her colitis with component of fluid overload from her acute kidney injury. Ferritin was increased to 972 on Dec 01. Procalcitonin 0.4 on December 01, this is negative, no indication of bacterial pneumonia. December 01 PETER was sent, this is positive at 1:320, homogeneous pattern, gamma globulin is 0.4, at the lower limit of normal, actin IgG is 5, in normal range. IgG is low, 578. Has hypertension, has had it since her late 20s, blood pressure has been controlled with medication but generally runs 140 systolic and 58 diastolic. Her brother also has hypertension. He is a smoker. She has atrial fibrillation, She is followed by Dr. Romano outpatient in the [facility] office. Echo shows diastolic dysfunction. Shehas atrial fib, has been on amiodarone. She was seen by pulmonary Dr Liu Nov 06 for acute hypoxemic respiratory failure, we carried supplemental oxygen, was on EzPAP, had the thoracentesis Nov 08, weaned down, went to Rehab Nov 29 on low flow nasal cannula O2. . She is a never smoker. 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 She has no underlying lung disease, has not use oxygen or inhalers. Has had dyspnea on exertion for 1.5 years. 12/11/2024: Patient tells me she has no rest shortness of breath. She has dyspnea on exertion when she walks from the bed to the chair. She denies fever, phlegm or hemoptysis. She has a dry cough worse when she moves and takes deep breaths. She has no pedal edema. When I enter the room she was on 1 L nasal cannula saturations 95%. I decreased her to room air and after 12 minutes her saturations were 93%. She is afebrile. White blood cell count 5.3, creatinine 1.05. AST is 43, ALT 75, alk-phos 106. Yesterday she was -980 mL, cumulative she is -9.5 L since admission. Her weight today is 70 kilos. DATA * 12/06/24. chest CT = IMPRESSION: 1. Small left and moderate-sized right posterior layering pleural effusions. 2. Dependent consolidation and groundglass opacities in the bilateral lower lobes with associated volume loss and favor atelectasis over pneumonia. 3. 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 11/06/24: EXAMINATION: XR chest 1V portable DATE: 11/06/2024 11:34 INDICATION: Respiratory failure TECHNIQUE: frontal view of the chest was obtained. COMPARISON: Chest radiograph dated 11/04/[address] dated 11/05/2024 FINDINGS: Lung volumes are small, unchanged on the left and with interval progression of volume loss on the right. Airspace opacity at the bilateral lower lung zones with blunting at the costophrenic angles consistent with small bilateral pleural effusions and associated atelectasis and/or pneumonia. No pneumothorax or evident pulmonary edema. Heart size is normal. There is ostial fold thickening along the visualized ascending and transverse colon suggestive of colitis. IMPRESSION: 1. Decreased lung volumes with small bilateral pleural effusions and associated bibasilar atelectasis and/or pneumonia. 2. Haustral fold thickening along the visualized colon suspicious for colitis. 11/05/2024: EXAMINATION: CT chest abdomen pelvis wo con, 11/05/2024 16:20 CDT HISTORY: SBO COMPARISON: No comparisons available. FINDINGS: CT chest: No significant coronary calcification is present ([id number]) LUNGS: No tracheomalacia. No bronchiectasis. Moderate to large simple appearing bilateral pleural effusions with small basilar infiltrates. Minimal emphysematous changes. HEART AND PERICARDIUM: Mild cardiomegaly. No pericardial effusion. AORTA: Atherosclerotic changes of the aorta. MEDIASTINUM: Unremarkable. THYROID: The thyroid is unremarkable. CT abdomen: LIVER: Mild cirrhotic disease of the liver suspected. SPLEEN: Mild atrophy of the spleen.. KIDNEYS: Right Kidney: Right kidney mild hydronephrosis, no hydroureter. Left Kidney: Left kidney large simple appearing peripelvic renal cyst 5 x 6 cm. ADRENAL GLANDS: Unremarkable. PANCREAS: Moderate atrophy of the pancreas. Cystic pancreatic lesion of the body 1.5 x 1.6 cm incompletely evaluated, contrast-enhanced MRI recommended. GALLBLADDER/BILIARY: Mild distention of the gallbladder. STOMACH AND ESOPHAGUS: The stomach is decompressed. BOWEL/MESENTERY: Multiple fluid-filled loops of large bowel which appears thickened, absence of contrast limits evaluation. There is pericolonic stranding noted but no gross perforation or abscess, no pneumatosis. Appendix appears minimally thickened but there is no periappendiceal inflammation. Stranding throughout the visualized remaining mesentery. Nonspecific fluid-filled loops of small bowel, no dilated small bowel loops. RETROPERITONEUM: Unremarkable AORTA/VASCULATURE: Normal caliber aorta. FREE FLUID OR FREE AIR: Large amount of free fluid throughout the abdomen and pelvis. Small amount of free fluid in the presacral space.. CT pelvis: SOLID ORGANS/REPRODUCTIVE: Unremarkable. BLADDER: Bladder decompressed. LYMPHADENOPATHY: No lymphadenopathy. OSSEOUS STRUCTURES: No acute osseous abnormality.No suspicious lesions. OVERLYING SOFT TISSUES: Holland catheter in the bladder. IMPRESSION: 1. Diffuse colitis detailed above, correlate for underlying pseudomembranous colitis. No perforation or abscess. Follow-up recommended to assess. 2. CHF with superimposed probable bronchopneumonia. 3. Incidental findings above. Contrast-enhanced MRI recommended 11/03/24: EXAMINATION: CT abdomen pelvis wo con INDICATION: Diverticulitis. Left lower quadrant abdominal pain. TECHNIQUE: Computed tomography (CT) of the abdomen and pelvis was performed with 100 mL Omnipaque-350 intravenous contrast. Automated exposure control and iterative reconstruction technique were employed. The dose-length product was 413.15 mGy-cm. COMPARISON: 11/01/2024 FINDINGS: Mild dependent atelectasis in the bilateral lower lobes. Heart size is normal. Atherosclerotic coronary artery calcifications. No pericardial or pleural effusion. Dependently layering vicariously excreted contrast in the otherwise normal gallbladder. Liver, spleen, pancreas, bilateral adrenal glands and right kidney are normal. 4.4 cm left renal cyst. Moderate scattered diverticulosis with sigmoid and descending colon predominance. Significant interval progression of diffuse wall thickening throughout the colon with adjacent inflammatory stranding consistent with colitis. No pneumatosis, abscess or free intraperitoneal gas. Minimal amount of likely reactive ascites in the deep pelvis. Small bowel and appendix are normal. There are some residual excreted contrast in the normal bladder. The uterus is not identified and has likely been surgically resected. No pathologically enlarged abdominal or pelvic lymphadenopathy. Lumbar levoscoliosis with severe spondylosis. IMPRESSION: 1. Interval progression of radiographically uncomplicated selby colitis which could be infectious, inflammatory or less likely ischemic in etiology. 11/01/24: EXAMINATION: CT abdomen pelvis w con DATE: 11/01/2024 13:18 INDICATION: Left lower quadrant abdominal pain. TECHNIQUE: Computed tomography (CT) of the abdomen and pelvis was performed with 100 mL Omnipaque 350 intravenous contrast. Automated exposure control and iterative reconstruction technique were employed. The dose-length product was 402.73 mGy-cm. COMPARISON: None. FINDINGS: The visualized portions of lung bases demonstrate mild atelectasis. No pleural effusion. There is left atrial enlargement of the heart. There are coronary artery calcifications. No pericardial effusion. The liver, gallbladder, spleen, pancreas, and adrenal glands are normal. There is cortical thinning of the kidneys. There is a punctate parenchymal calcification in right kidney. There is a 4.4 cm cyst in left kidney. There are scattered diverticula in the colon. There is fat stranding around the ascending, descending, and sigmoid colon, worst around a diverticulum of the sigmoid colon, consistent with diverticulitis. The appendix is normal. There are no pathologically enlarged lymph nodes. There is trace pelvic ascites. There is lumbar levoscoliosis and severe spondylosis. IMPRESSION: 1. Sigmoid diverticulitis. No perforation or abscess. Review of Systems Constitutional: Constitutional: Reports no additional constitutional complaints Eyes: Eyes: Reports no additional eye complaints ENT: Reports system reviewed and no additional complaints, except as documented Cardiovascular: Cardiovascular: Reports no additional cardiovascular complaints Respiratory: Respiratory: Reports no additional respiratory complaints Gastrointestinal: Gastrointestinal: Reports no additional gastrointestinal complaints Musculoskeletal: Musculoskeletal: Reports no additional musculoskeletal complaints Neurologic: Reports system reviewed and no additional complaints, except as documented Psychiatric: Psychiatric: Reports no additional psychiatric complaints Endocrine: Endocrine: Reports no additional endocrine complaints Hematologic/Lymphatic: Hematologic/Lymphatic: Reports no additional hematologic/lymphatic complaints Allergic/Immunologic: Allergic/Immunologic: Reports no additional allergic/immunologic complaints Exam Const: General: cooperative, healthy appearing and comfortable Orientation/consciousness: oriented to person, oriented to place and oriented to time HENMT: Head: normal to inspection Ears: hearing grossly normal bilaterally Eyes: General: appearance normal, both eyes and all related structures Neck: Neck: normal visual inspection Chest: Chest palpation & inspection: normal inspection of the chest Resp: Effort & Inspection: normal respiratory effort and able to speak in complete sentences Auscultation: no crackles, no rales, no rhonchi, no wheezes and lung sounds not diminished Other: decreased breath sounds right base, crackles left base. Cardio: Jugular venous distension: no JVD GI: Inspection: normal to inspection GI Palp: No abdominal tenderness Skin: General skin exam: normal color Neuro: General: oriented to person, oriented to place and oriented to time Extrem: General: normal to inspection Other: No edema Psych: Appearance: grossly normal Objective Data Vital Signs Vital Signs: Vital Signs - 24 hr 12/10/24 14:00 12/10/24 20:00 12/10/24 20:58 Temperature 36.8 C 36.4 C Pulse Rate 71 65 Respiratory Rate 18 18 Blood Pressure 140/51 L 128/59 L Pulse Oximetry 96 95 96 Oxygen Delivery Nasal Cannula Oxygen Flow Rate 1 12/10/24 23:00 12/11/24 05:09 12/11/24 09:24 Temperature 37.0 C Pulse Rate 69 72 Respiratory Rate 18 Blood Pressure 131/46 L Pulse Oximetry 94 93 Oxygen Delivery Nasal Cannula Oxygen Flow Rate 1 Intake/Output Intake/Output: Intake & Output 12/08/24 12/09/24 12/10/24 12/11/24 23:59 23:59 23:59 23:59 Intake Total 1914 1880 720 680 Output Total 1010 2500 1700 400 Balance 371 -593 -101 280 Meds/Results Medications: Active Medications Generic Name Dose Route Start Last Admin Trade Name Freq PRN Reason Stop Dose Admin Acetaminophen 650 mg 11/30/24 16:31 Acetaminophen 325 Mg Tablet PO Q4H PRN Mild Pain (1-3) or Fever Albuterol/Ipratropium 3 ml 12/08/24 10:36 Ipratropium 0.5 Mg/Albuterol Sulfate 2.5 Mg (Base) Ampul.Neb 3 Ml INHALATION Q6HRT PRN Shortness Of Breath Or Wheezing Amlodipine Besylate 10 mg 12/04/24 09:00 12/11/24 09:27 Amlodipine Besylate 10 Mg Tablet PO 10 mg DAILY KEVIN Administration Apixaban 2.5 mg 12/03/24 21:00 12/11/24 09:27 Apixaban 2.5 Mg Tablet PO 2.5 mg Q12HR KEVIN Administration Atorvastatin Calcium 10 mg 12/01/24 09:00 12/11/24 09:23 Atorvastatin 10 Mg Tablet PO 10 mg DAILY KEVIN Administration Calcium Carbonate 500 mg 12/01/24 08:00 12/11/24 09:27 Calcium/Vitamin D 500 Mg/5 Mcg (200 I.U.) Tablet PO 500 mg BIDWM KEVIN Administration Cyclosporine 1 drop 11/30/24 22:15 12/11/24 09:27 Cyclosporine 0.4 Ml Ophth Solution EACH EYE 1 drop Q12HR KEVIN Administration Docusate Sodium 100 mg 11/30/24 16:31 Docusate Sodium 100 Mg Capsule PO BID PRN Constipation Furosemide 40 mg 12/04/24 09:00 12/11/24 09:22 Furosemide Inj 40 Mg/4 Ml Vial IV PUSH 40 mg DAILY KEVIN Administration Magnesium Oxide 400 mg 12/01/24 09:00 12/11/24 09:23 Magnesium Oxide 400 Mg Tablet PO 400 mg QAM KEVIN Administration Metoprolol Tartrate 50 mg 12/01/24 09:00 12/11/24 09:24 Metoprolol Tartrate 50 Mg Tab PO 50 mg Q12HR KEVIN Administration Miscellaneous Information 1 each 12/10/24 00:01 Xanax And Purchase Need To Be Renewed Or They Will Automatically Discontinue. XX 01/09/25 00:00 CLARIFY KEVIN Sodium Chloride 1 spray 11/30/24 22:12 Saline 0.65% Rodrigo Soln 44 Ml Btl NASAL Q6HR PRN Congestion Sodium Chloride 1,500 mg 12/01/24 09:00 12/11/24 09:23 Sodium Chloride 500 Mg Tablet PO 1,500 mg BID KEVIN Administration Tamsulosin HCl 0.4 mg 12/01/24 09:00 12/11/24 09:23 Tamsulosin Hcl 0.4 Mg Capsule PO 0.4 mg QAM KEVIN Administration Trazodone HCl 50 mg 11/30/24 23:46 12/10/24 21:42 Trazodone Hcl 50 Mg Tablet PO 50 mg HS PRN Administration Insomnia Vancomycin HCl 125 mg 12/13/24 09:00 Vancomycin Hcl 125 Mg Oral Capsule PO 12/19/24 10:00 DAILY KEVIN Vancomycin HCl 125 mg 12/20/24 09:00 Vancomycin Hcl 125 Mg Oral Capsule PO 01/01/25 10:00 Q48H KEVIN Vancomycin HCl 125 mg 12/06/24 09:00 12/11/24 09:27 Vancomycin Hcl 125 Mg Oral Capsule PO 12/12/24 22:00 125 mg Q12HR KEVIN Administration Radiology Results: ITS Impressions Chest/Abdomen/Pelvis CT 11/30/24 15:30 IMPRESSION: 1. No significant change in a moderate-sized bilateral pleural effusions with complete collapse of the right lower lobe, partial collapse of the left lower lobe and additional mild dependent atelectasis in the remaining lobes of both lungs. 2. Radiographically uncomplicated colitis versus more likely descending colon diverticulitis. 3. Small amount of scattered ascites with no organized abscess or free intraperitoneal gas. 4. No interval change in 3 simple appearing cystic lesions at the body and tail the pancreas measuring up to 1.4 cm. The differential diagnosis includes pseudocyst, intraductal papillary mucinous neoplasm (IPMN), mucinous cystic neoplasm (MCN), and the less common serous cystadenoma and neuroendocrine tumor. Correlate for history of pancreatitis. Recommend 2 year follow-up pre and postcontrast MRI. 5. 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 Thoracentesis Ultrasound 12/01/24 10:20 IMPRESSION: 1. Successful ultrasound-guided thoracentesis yielding 450 mL of clear straw-colored fluid. Chest CT 12/06/24 15:35 IMPRESSION: 1. Small left and moderate-sized right posterior layering pleural effusions. 2. Dependent consolidation and groundglass opacities in the bilateral lower lobes with associated volume loss and favor atelectasis over pneumonia. 3. 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 Chest X-Ray 12/08/24 14:47 Impression: CHF. Superimposed pneumonia suspected with free-flowing moderate right pleural effusion. The findings appear slightly progressed compared to the previous exam Renal Ultrasound 12/10/24 11:24 IMPRESSION: 1. No hydronephrosis. 2. Post void bladder volume residual 3280 mL. ADDENDUM: 12/10/24 1358 Post void bladder volume residual 328 mL, not 3000 as erroneously reported initially Labs Labs: Laboratory Results - last 24 hr 12/11/24 04:41 WBC 5.3 RBC 2.53 L Hgb 7.5 L Hct 23.9 L MCV 94.5 MCH 29.6 MCHC 31.4 L RDW 15.1 H Plt Count 254 MPV 9.3 Immature Gran % (Auto) 0.6 H Neut % (Auto) 50.1 Lymph % (Auto) 31.4 [place] % (Auto) 13.6 H Eos % (Auto) 3.4 Baso % (Auto) 0.9 Lymph # (Auto) 1.66 [place] # (Auto) 0.7 H Eos # (Auto) 0.2 Baso # (Auto) 0.1 Abs Immat Gran (auto) 0.03 Absolute Neuts (auto) 2.6 Absolute Nucleated RBC 0.000 Nucleated RBC % 0.0 Sodium 132 L Potassium 3.9 Chloride 97 L Carbon Dioxide 31 H Anion Gap 4 BUN 16 Creatinine 1.05 H Estim Creat Clear Calc 37 Estimated GFR 51 L Glucose 110 Calcium 7.7 L Magnesium 1.9 Total Bilirubin 0.6 AST 43 H ALT 75 H Alkaline Phosphatase 106 Total Protein 5.8 L Albumin 2.8 L
--- NOTE | 2024-12-11 13:35 | PM.IMPN ---
Progress Note: A&P Assessment and Plan (1) Ankle pain: Code(s): M25.579 - Pain in unspecified ankle and joints of unspecified foot Status: Acute Assessment and Plan: Patient with nontraumatic right ankle pain. Consider OA since starting therapy recently. Consider gout or occult fx. Check uric acid. Check xray Add ice. Avoid NSAIDs. (2) Acute hypoxic respiratory failure: Code(s): J96.01 - Acute respiratory failure with hypoxia Status: Acute Assessment and Plan: Patient readmitted on 11/30 for abnormal labs. She developed worsening oxygen requirement to 4L. Chest CT (11/30) showing moderate bilateral pleural effusions with complete collapse of the right lower lobe and partial collapse of the left lower lobe with dependent compressive atelectasis in the lingula, right middle and bilateral upper lobes. No pulmonary edema or pneumonia in the aerated portions of the lungs. No pericardial effusion. Right thoracentesis with removal of 450mL on 12/01: pH >7.5. SAAG <1.1, Pl Chol>55, LDH<[address] LDH/Serum LDH <0.[address] Prot/S Prot >0.5. Path negative for malignancy. AFB smear negative. Gram stain showing no organisms but moderate WBC. Appears a mixed sample: probably transudate with another process in play. Echo 11/07: EF 70% with Grade I diastolic dysfxn Able to be weaned to 1L. Chest CT 12/06 showing small left and moderate right pleural effusion with dependent consolidation and ground-glass opacities in the bilateral lower lobes. PETER 1:320 as a homogeneous pattern. UPEP with 2 M-spikes. UIF with Bence Quijano protein positive - kappa type. SIF with M-spike noted. Consider autoimmune hepatitis. Consider MM. Pulmonary following and appreciate their input Continue with bronchodilators prn. On IV Lasix -> will change to oral Lasix Weaned O2 off today. Follow (3) Pleural effusion: Code(s): J90 - Pleural effusion, not elsewhere classified Status: Acute Assessment and Plan: As above. (4) Elevated liver enzymes: Code(s): R74.8 - Abnormal levels of other serum enzymes Status: Acute Assessment and Plan: Liver enzymes were climbing prior to discharge with AST peaking at 902 and ALT 667. TB/AlkPhos normal. Viral hepatitis panel negative. PETER positive 1:320 homogeneous. Anti-actin negative. No gamma spike. ANCA pending CT abdomen pelvis showed normal liver, GB and spleen. Small amount of reactive ascites. AST and ALT are trending down. Will have patient follow up with GI after discharge (5) Clostridium difficile colitis: Code(s): A04.72 - Enterocolitis due to Clostridium difficile, not specified as recurrent Status: Acute Assessment and Plan: Patient with known recent pancolitis 2nd to CDiff. Patient tested positive for C diff on 11/09. Currently on a tapering dose of oral Vancomycin CT abdomen pelvis showed fluid throughout the colon consistent with diarrhea, persistent wall thickening of the colon (mild at the cecum and moderate along the descending and proximal sigmoid colon) and more localized paracolonic inflammatory stranding along the sigmoid colon and would favor diverticulitis over colitis. Small bowel and appendix are normal. Small amount of likely reactive ascites but no organized abscess or free intraperitoneal gas. WBC normal and benign abdominal exam. Doubt diverticulitis at this time Diarrhea has resolved. Outpatient colonoscopy by GI at some point in near future (6) A-fib: Code(s): I48.91 - Unspecified atrial fibrillation Status: Acute Assessment and Plan: EKG on admission showing normal sinus rhythm. Continue with metoprolol Continue with Eliquis (7) Hypertension: Code(s): I10 - Essential (primary) hypertension Status: Chronic Assessment and Plan: Patient's blood pressure was reviewed on 12/11 Blood pressure remains well controlled. Will continue to monitor (8) Hyponatremia: Code(s): E87.1 - Hypo-osmolality and hyponatremia Status: Acute Assessment and Plan: Patient with chronic hyponatremia. Sodium running 127-132 Continue with fluid restriction and sodium chloride supplementation (9) Bladder distension: Code(s): N32.89 - Other specified disorders of bladder Status: Acute Assessment and Plan: Patient with DONOVAN last admission resulting temporary HD 11/10 -> 11/14. This improved and Cr normalized. Cr on this admission was 0.85 CT Abd/pelvis showing mild bilateral hydroureteronephrosis which may be related to bladder outlet obstruction or neurogenic bladder with marked distention of the bladder. Holland placed but since removed on 12/05 Cr has worsened to 1.05-1.2 range without benefit with Holland in or out but stable. Renal US showing no hydronephrosis. PVR 328mL. (10) Anemia: Code(s): D64.9 - Anemia, unspecified Status: Acute Assessment and Plan: She has a normal baseline Hgb. Hgb trended down to 8-9 range last admission. Iron panel 11/21: total iron 17, TIBC 180, iron sat 9%, ferritin 162. B12/folate normal in August Urine protein negative here. Thus far, Hgb mostly in the 7-8 range here and stable No signs of active GI bleeding. Per GI, plan to discuss in the office outpatient if further evaluation and need for endoscopic evaluation to rule out GI source of blood loss or malabsorption Follow and transfuse if Hgb <7 to a stable Hgb Plan DVT prophylaxis: Eliquis Code status: Full Subjective Date/time seen: 12/11/24 13:35 Interval history: 78yo female with chronic pleural effusions, CHF and new AFib with RVR who presents from rehab with abnormal labs of increased liver enzymes on 11/30. Patient had a prolonged course Cesar (11/03 -> 11/29) due to: -- CHF with fluid overload and pleural effusions. EF 70% with Grade I diastolic dysfxn -- DONOVAN resulting in temporary HD 11/10 -> 11/14. -- CDiff Pancolitis -- Respiratory failure -- New AFib with RVR. Swelling noted to her right ankle. She awoke with this. No trauma or twisting of he ankle. No CP or abd pain. No SOb. No hx of gout. She has pain with standing. Exam Narrative: AF98.6 131/46 72 18 93% ra Gen - NARD lying in recliner Chest - decreased BS mid and lower lung field on the right and lower left CV - RRR S1/S2 Abd - soft, NT/ND Ext - trace periankle edema R>L with right lateral malleolar point tenderness. Negative Homans Psych - nml mood and affect Skin - warm and dry Objective Data Vital Signs Vital Signs: Vital Signs - 24 hr 12/10/24 14:00 12/10/24 20:00 12/10/24 20:58 Temperature 98.2 F 97.6 F Pulse Rate 71 65 Respiratory Rate 18 18 Blood Pressure 140/51 L 128/59 L Pulse Oximetry 96 95 96 Oxygen Delivery Nasal Cannula Oxygen Flow Rate 1 12/10/24 23:00 12/11/24 05:09 12/11/24 09:24 Temperature 98.6 F Pulse Rate 69 72 Respiratory Rate 18 Blood Pressure 131/46 L Pulse Oximetry 94 93 Oxygen Delivery Nasal Cannula Oxygen Flow Rate 1 Intake/Output Intake/Output: Intake & Output 12/08/24 12/09/24 12/10/24 12/11/24 23:59 23:59 23:59 23:59 Intake Total 1914 1880 720 920 Output Total 1010 2500 1700 400 Balance 266 -600 -119 270 Meds/Results Medications: Active Medications Generic Name Dose Route Start Last Admin Trade Name Freq PRN Reason Stop Dose Admin Acetaminophen 650 mg 11/30/24 16:31 Acetaminophen 325 Mg Tablet PO Q4H PRN Mild Pain (1-3) or Fever Albuterol/Ipratropium 3 ml 12/08/24 10:36 Ipratropium 0.5 Mg/Albuterol Sulfate 2.5 Mg (Base) Ampul.Neb 3 Ml INHALATION Q6HRT PRN Shortness Of Breath Or Wheezing Amlodipine Besylate 10 mg 12/04/24 09:00 12/11/24 09:27 Amlodipine Besylate 10 Mg Tablet PO 10 mg DAILY KEVIN Administration Apixaban 2.5 mg 12/03/24 21:00 12/11/24 09:27 Apixaban 2.5 Mg Tablet PO 2.5 mg Q12HR KEVIN Administration Atorvastatin Calcium 10 mg 12/01/24 09:00 12/11/24 09:23 Atorvastatin 10 Mg Tablet PO 10 mg DAILY KEVIN Administration Calcium Carbonate 500 mg 12/01/24 08:00 12/11/24 09:27 Calcium/Vitamin D 500 Mg/5 Mcg (200 I.U.) Tablet PO 500 mg BIDWM KEVIN Administration Cyclosporine 1 drop 11/30/24 22:15 12/11/24 09:27 Cyclosporine 0.4 Ml Ophth Solution EACH EYE 1 drop Q12HR KEVIN Administration Docusate Sodium 100 mg 11/30/24 16:31 Docusate Sodium 100 Mg Capsule PO BID PRN Constipation Furosemide 40 mg 12/04/24 09:00 12/11/24 09:22 Furosemide Inj 40 Mg/4 Ml Vial IV PUSH 40 mg DAILY KEVIN Administration Magnesium Oxide 400 mg 12/01/24 09:00 12/11/24 09:23 Magnesium Oxide 400 Mg Tablet PO 400 mg QAM KEVIN Administration Metoprolol Tartrate 50 mg 12/01/24 09:00 12/11/24 09:24 Metoprolol Tartrate 50 Mg Tab PO 50 mg Q12HR KEVIN Administration Miscellaneous Information 1 each 12/10/24 00:01 Xanax And [place] Need To Be Renewed Or They Will Automatically Discontinue. XX 01/09/25 00:00 CLARIFY KEVIN Sodium Chloride 1 spray 11/30/24 22:12 Saline 0.65% Rodrigo Soln 44 Ml Btl NASAL Q6HR PRN Congestion Sodium Chloride 1,500 mg 12/01/24 09:00 12/11/24 09:23 Sodium Chloride 500 Mg Tablet PO 1,500 mg BID KEVIN Administration Tamsulosin HCl 0.4 mg 12/01/24 09:00 12/11/24 09:23 Tamsulosin Hcl 0.4 Mg Capsule PO 0.4 mg QAM KEVIN Administration Trazodone HCl 50 mg 11/30/24 23:46 12/10/24 21:42 Trazodone Hcl 50 Mg Tablet PO 50 mg HS PRN Administration Insomnia Vancomycin HCl 125 mg 12/13/24 09:00 Vancomycin Hcl 125 Mg Oral Capsule PO 12/19/24 10:00 DAILY KEVIN Vancomycin HCl 125 mg 12/20/24 09:00 Vancomycin Hcl 125 Mg Oral Capsule PO 01/01/25 10:00 Q48H KEVIN Vancomycin HCl 125 mg 12/06/24 09:00 12/11/24 09:27 Vancomycin Hcl 125 Mg Oral Capsule PO 12/12/24 22:00 125 mg Q12HR KEVIN Administration Radiology Results: ITS Impressions Chest/Abdomen/Pelvis CT 11/30/24 15:30 IMPRESSION: 1. No significant change in a moderate-sized bilateral pleural effusions with complete collapse of the right lower lobe, partial collapse of the left lower lobe and additional mild dependent atelectasis in the remaining lobes of both lungs. 2. Radiographically uncomplicated colitis versus more likely descending colon diverticulitis. 3. Small amount of scattered ascites with no organized abscess or free intraperitoneal gas. 4. No interval change in 3 simple appearing cystic lesions at the body and tail the pancreas measuring up to 1.4 cm. The differential diagnosis includes pseudocyst, intraductal papillary mucinous neoplasm (IPMN), mucinous cystic neoplasm (MCN), and the less common serous cystadenoma and neuroendocrine tumor. Correlate for history of pancreatitis. Recommend 2 year follow-up pre and postcontrast MRI. 5. 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 Thoracentesis Ultrasound 12/01/24 10:20 IMPRESSION: 1. Successful ultrasound-guided thoracentesis yielding 450 mL of clear straw-colored fluid. Chest CT 12/06/24 15:35 IMPRESSION: 1. Small left and moderate-sized right posterior layering pleural effusions. 2. Dependent consolidation and groundglass opacities in the bilateral lower lobes with associated volume loss and favor atelectasis over pneumonia. 3. 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 Renal Ultrasound 12/10/24 11:24 IMPRESSION: 1. No hydronephrosis. 2. Post void bladder volume residual 3280 mL. ADDENDUM: 12/10/24 1358 Post void bladder volume residual 328 mL, not 3000 as erroneously reported initially Chest X-Ray 12/11/24 12:01 Impression: Bilateral pneumonia. The findings appear improved compared to the previous study Labs Labs: Laboratory Results - last 24 hr 12/10/24 12/11/24 05:00 04:41 WBC 5.3 RBC 2.53 L Hgb 7.5 L Hct 23.9 L MCV 94.5 MCH 29.6 MCHC 31.4 L RDW 15.1 H Plt Count 254 MPV 9.3 Immature Gran % (Auto) 0.6 H Neut % (Auto) 50.1 Lymph % (Auto) 31.4 [place] % (Auto) 13.6 H Eos % (Auto) 3.4 Baso % (Auto) 0.9 Lymph # (Auto) 1.66 [place] # (Auto) 0.7 H Eos # (Auto) 0.2 Baso # (Auto) 0.1 Abs Immat Gran (auto) 0.03 Absolute Neuts (auto) 2.6 Absolute Nucleated RBC 0.000 Nucleated RBC % 0.0 Sodium 132 L Potassium 3.9 Chloride 97 L Carbon Dioxide 31 H Anion Gap 4 BUN 16 Creatinine 1.05 H Estim Creat Clear Calc 37 Estimated GFR 51 L Glucose 110 Calcium 7.7 L Magnesium 1.9 Total Bilirubin 0.6 AST 43 H ALT 75 H Alkaline Phosphatase 106 Total Protein 5.8 L Albumin 2.8 L Livr/Kid Microsome 1 Ab <1.0
[2024-12-11 19:43] LABS: Uric Acid 6.0 mg/dL (2.5-7.5)
[2024-12-11 20:23] LABS: NT Pro B Type Natriuretic Pept 463 pg/mL (19.9-100)
[2024-12-11] MEDS: ALPRAZolam (*CRX) 0.25 MG TABLET PO (21:05)
[2024-12-12] MEDS: ACETAMINOPHEN 325 MG TABLET 650 MG PO (05:02)
[2024-12-12 05:21] VITALS: BP 124/51; PULSE 70; RESP 18; TEMP 36.5; O2SAT 91
[2024-12-12 06:01] LABS: Hematocrit 23.5 % (37.0-47.0); Hemoglobin 7.4 g/dL (12.0-15.0); Immature Granulocyte Percent A 0.5 % (0-0.5); Lymphocytes Absolute Auto 1.77 K/mm3 (0.9-3.2); Mean Corpuscular HGB Conc 31.5 g/dl (32-36); Mean Corpuscular Hemoglobin 29.5 pg (26-34); Mean Corpuscular Volume 93.6 fl (80-100); Nucleated Red Blood Cells Absolute Auto 0.000 K/mm3 (0.0-0.012); Nucleated Red Blood Cells Perc 0.0 % (0.0-0.2); Platelet Count Result 266 k/mm3 (150-375); Red Blood Count 2.51 M/mm3 (4.2-5.4); White Blood Count 5.7 K/mm3 (4.5-10.0)
[2024-12-12 06:27] LABS: Alanine Aminotransferase 59 U/L (6-35); Albumin Level 2.8 g/dL (3.5-5.1); Alkaline Phosphatase 106 U/L (38-126); Anion Gap 5 mmol/L (4-12); Aspartate Amino Transferase 37 U/L (14-36); Bilirubin,Total 0.4 mg/dL (0.2-1.3); Blood Urea Nitrogen 15 mg/dL (7-17); Calcium 7.7 mg/dL (8.4-10.2); Carbon Dioxide 30 mmol/L (22-30); Chloride 97 mmol/L (98-107); Estimated CRCL calculation 39 ml/min; Estimated Glomerular Filt Rate 52; Glucose 119 mg/dL (65-110); Magnesium 1.6 mg/dL (1.6-2.3); Potassium 3.4 mmol/L (3.4-5.0); Sodium 132 mmol/L (137-145); Total Protein 5.9 g/dL (6.3-8.2)
--- NOTE | 2024-12-12 08:37 | P.PNPL_ITS ---
Progress Note: A&P Assessment and Plan (1) Pleural effusion: Code(s): J90 - Pleural effusion, not elsewhere classified Status: Acute Assessment and Plan: patient presented with colitis on 11/01/[address] scan of the abdomen on 11/01/2024 and 11/03/2024 showed no pleural effusions. On 11/04/2024 she had small bilateral pleural effusions. 11/08/24; Later in the day patient had a left thoracentesis with 250 mL of yellow fluid removed. PH 7.46. g stain with many white blood cells, no organism seen. White blood cells 874 with a differential neutrophils 26%, lymphocytes 2%, mon ocytes 7%, macrophages 57%, mesothelial cells 8%. Pleural LDH 226: Serum LDH 262 with ratio of 0.86. Total protein pleural 2.7: Serum total protein 5.2 with ratio of 0.52. Serum albumin 2.6, pleural albumin 1.7 with a gradient of 0.9. Cytology negative. Fungal cultures negative. Her left effusion is consistent with an exudative, noninfected, macrophage predominant, non brad gnant effusion likely an inflammatory response related to her colitis with component of fluid overload from her acute kidney injury. 11/21/2024: Left thoracentesis with 500 mL of yellowish fluid. No studies sent. 12/01/2024: Right thoracentesis with 450 mL of straw-colored fluid. G stain no organisms seen, many white blood cells. White blood cells 1644 with differential neutrophils 4%, lymphocytes 36%, monocytes 3%, macrophages 57%, LDH 187 in the pleural: Serum LDH 426 with a ratio of 0.44. Pleural total protein 3.0: Serum total protein 5.2 with a ratio of 0.58. Serum albumin 2.9, pleural albumin 2.1 with a gradient of 0.8. Glucose 109, amylase 14, cholesterol 58, triglycerides 27, cytology negative. Fungal and AFB cultures pending. This represents an exudative, noninfected, macrophage predominant, cytology negative pleural effusion. 12/08/24: She has a right pleural effusion tapped Dec 01, 450 mL hazy yellow fluid with exudative findings, no growth on micro, mild increase in pleural fluid wbc, Sept 24 thoracentesis on the Left side was exudative related to her colitis with a component of fluid overload from her acute kidney injury, and the kidney injury is much improved. She tells me that she had another thoracentesis on Left, Nov 21 500 mL fluid removed from the left side, no labs tested. She does not have an underlying pulmonary pathologic process. These fluid results are not maintenance representative of a pleural space infection such as parapneumonic infection, empyema, and she does not appear to have pneumonia on the CT scan. With her positive PETER 1:320, recent spike in liver enzymes, swelling, anasarca, I think that she may have a hepatic reason for recurrent effusion. She may have autoimmune hepatitis. She may need need additional antibody testing including ANCA antibodies and anti-smooth muscle antibodies. She is on IV Lasix which is helping reduce edema. She is not able to go to rehab today for this reason, still on IV Lasix. Her DONOVAN is better, required 3 HD sessions last month for multifactorial acute kidney injury during an episode of C diff colitis with sepsis, contrast for imaging, atrial flutter requiring cardioversion. Her O2 requirement is low, currently 1 L. saturation is 91-92%. Not sure if she has enough fluid tp remove; her CXR 12/04 is improved, she is on 1 L, thoracentesis will not prevent it from coming back until the underlying cause is treated. Her liver enzymes are normalizing, her kidney the values are improved compared to November 10, BUN was 95 creatinine 4.51, current BUN is 21 creatinine 1.17 with creatinine clearance 45-50. Plan: Lateral decubitus films to look for pleural fluid layering. Tapping fluid is only a temporary fix for effusions. Not clear why she has had 2 taps on the Left and one on the Right. These have not been infected, most like are due to combination of kidney, liver and cardiac processes with pancolitis and inflam matory fluid moving from abdomen to pleural space. Continue O2 to maintain sat 90-91%, pulmonary hygiene with Cornet valve, out patient testing after she is discharged from rehab. She has had AVALOS for a year and a half. I sent an order for ANCA antibodies with high PETER and liver disease. 12/11/2024: Patient tells me she has no rest shortness of breath. She has dyspnea on exertion when she walks from the bed to the chair. She denies fever, phlegm or hemoptysis. She has a dry cough worse when she moves and takes deep breaths. She has no pedal edema. When I enter the room she was on 1 L nasal cannula saturations 95%. I decreased her to room air and after 12 minutes her saturations were 93%. She is afebrile. White blood cell count 5.3, creatinine 1.05. AST is 43, ALT 75, alk-phos 106. Yesterday she was -980 mL, cumulative she is -9.5 L since admission. Her weight today is 70 kilos. BNP improved from 837 on 11/30/2024 to 463 today Plan: From a pulmonary perspective patient had no underlying lung disease and no pleural effusions when she was admitted with colitis on 11/01/24. Patient continues to improve. I will repeat a chest x-ray today to follow her right pleural effusion. I will check a BNP. Patient is on 40 Lasix IV q.day with good diuresis since admission and decreasing weight to 70 kilos. Of note, her admission weight on 11/01/2024 was 67.7 kg. Agree with out of bed to chair, ambulation as tolerated, incentive spirometry and Cornet flutter valve for atelectasis. I will check an overnight oximetry on room air tonight. She has a positive PETER with homogeneous pattern and I will send an PETER with reflex to 11 auto antibodies. Anca is pending. 12/12/24: Patient has no shortness of breath at rest. She did walk from the bed to the chair yesterday and sat in the chair. Her cough is the same and remains dry with no hemoptysis. Her room air saturations are 92%. She is afebrile. White blood cell count 5.7, creatinine 1.03. yesterday she was positive 160 mL. Cumulative she is -9.2 L since admission. Her weight today is 73.4 kg. Patient had an overnight oximetry on room air with recording duration of 7 hours and 18 minutes. Average saturation 87%. Low saturation 79%. Time with saturation less than or equal to 88% was 369 minutes. Oxygen desaturation index was 4.1. Plan: Overall the patient has improved clinically, she is now on room air during the day, she is participating some activity and walking from the bed to the chair. She is on no antibiotics, does not require bronchodilators is being diuresed per hospitalist team and her effusions are minimal on chest x-ray from 12/11/2024. She does have nocturnal hypoxemia and she qualifies for oxygen at night. If she remains in the hospital tonight will perform overnight oximetry on 2 L nasal cannula. PETER positive at 1:320 and PETER with reflex to 11 auto antibodies has been sent. Anca screen negative. From a pulmonary perspective patient is ready to be discharged on these pulmonary medicines: Oxygen at rest and with activity per protocol at [facility] Oxygen 2 L at night. Titrate oxygen at night to keep saturations greater than or equal to 90%. Diuretics per hospitalist team. Currently she is on Lasix 40 p.o. q.day. she has diuresed 9.2 L since admission with IV Lasix. Her weight today is 73.4 kg. Her BNP yesterday was 463. Chest x-ray shows improved congestion with minimal bilateral effusions. Patient has no intrinsic pulmonary disease and does not need pulmonary specific follow-up as an outpatient. Discussed with Dr. Johnson. Will sign off, call with questions. Subjective Date/time seen: 12/12/24 08:37 Interval history: 12/08/24: pt was seen Dec 08, 2024 at 11:00 am, Room 347, Yasir and her brother John are present. NEW: Berenice Alex is 78 years old, was well a month ago, Oct 30 was at home taking care of her and dog. She was admitted to [facility] and stayed here for a month, had C diff colitis with sepsis, atrial flutter with cardioversion, had acute kidney injury and required 3 episodes of hemodialysis, acute hypoxemic respiratory failure requiring EZ Pap and Airvo with oxygen requirements up to 70%, she had bilateral atelectasis; Had thoracentesis Left Nov 08 and Nov 21 with 500 mL fluid removed from the left side, no labs tested; went to rehab on November 29 for 12 hours, labs were sent and she had acute increase in her liver enzymes, AST was 190 on November 28 and ALT was 114, by November 30 AST was 902 and ALT was 608; sent back to the hospital on November 30 and admitted on the . Since then the liver enzymes AST and ALT have decreased. GI consult was obtained, diagnoses included pancreatic cyst, increased LFTS, cirrhosis, anemia. Thoracentesis Dec 01 = RIGHT side, 450 cc of fluid was removed; pH greater than 7.50, yellow, hazy, RBCs less than 2000, white blood cells elevated 1644, 4% neutrophils, 36% lymphocytes, 5% monocytes, 57% macrophages, pleural fluid chemistry showed glucose 109, protein 3.0, albumin 2.1, LDH 187, amylase 14, cholesterol 58, triglycerides 27. This is consistent with an exudative noninfected macrophage predominant effusion with mild elevation in white blood cell count, no organisms, moderate WBCs; fungal culture initiated and AFB smear is negative with culture to be completed within 6 weeks. She had a thoracentesis opposite side, 11/08, LEFT side, 250 ml removed, Normal pH 7.46, RBC less than 2000, WBC 874, 26% neutrophils, 2% lymphocytes, 7% monocytes, 57% macrophages 8% mesothelial cells glucose 106. Albumin 1.7. LDH 226, consistent with exudative non infected macrophage predominant effusion with inflammation related to her colitis with component of fluid overload from her acute kidney injury. Ferritin was increased to 972 on Dec 01. Procalcitonin 0.4 on December 01, this is negative, no indication of bacterial pneumonia. December 01 PETER was sent, this is positive at 1:320, homogeneous pattern, gamma globulin is 0.4, at the lower limit of normal, actin IgG is 5, in normal range. IgG is low, 578. Has hypertension, has had it since her late 20s, blood pressure has been controlled with medication but generally runs 140 systolic and 58 diastolic. Her brother also has hypertension. He is a smoker. She has atrial fibrillation, She is followed by Dr. Romano outpatient in the [facility] office. Echo shows diastolic dysfunction. Shehas atrial fib, has been on amiodarone. She was seen by pulmonary Dr Liu Nov 06 for acute hypoxemic respiratory failure, we carried supplemental oxygen, was on EzPAP, had the thoracentesis Nov 08, weaned down, went to Rehab Nov 29 on low flow nasal cannula O2. . She is a never smoker. 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 She has no underlying lung disease, has not use oxygen or inhalers. Has had dyspnea on exertion for 1.5 years. 12/11/2024: Patient tells me she has no rest shortness of breath. She has dyspnea on exertion when she walks from the bed to the chair. She denies fever, phlegm or hemoptysis. She has a dry cough worse when she moves and takes deep breaths. She has no pedal edema. When I enter the room she was on 1 L nasal cannula saturations 95%. I decreased her to room air and after 12 minutes her saturations were 93%. She is afebrile. White blood cell count 5.3, creatinine 1.05. AST is 43, ALT 75, alk-phos 106. Yesterday she was -980 mL, cumulative she is -9.5 L since admission. Her weight today is 70 kilos. BNP improved from 837 on 11/30/2024 to 463 today 12/12/24: Patient has no shortness of breath at rest. She did walk from the bed to the chair yesterday and sat in the chair. Her cough is the same and remains dry with no hemoptysis. Her room air saturations are 92%. She is afebrile. White blood cell count 5.7, creatinine 1.03. yesterday she was positive 160 mL. Cumulative she is -9.2 L since admission. Her weight today is 73.4 kg. Patient had an overnight oximetry on room air with recording duration of 7 hours and 18 minutes. Average saturation 87%. Low saturation 79%. Time with saturation less than or equal to 88% was 369 minutes. Oxygen desaturation index was 4.1. DATA: * 12/06/24. chest CT = IMPRESSION: 1. Small left and moderate-sized right posterior layering pleural effusions. 2. Dependent consolidation and groundglass opacities in the bilateral lower lobes with associated volume loss and favor atelectasis over pneumonia. 3. 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 11/06/24: EXAMINATION: XR chest 1V portable DATE: 11/06/2024 11:34 INDICATION: Respiratory failure TECHNIQUE: frontal view of the chest was obtained. COMPARISON: Chest radiograph dated 11/04/[address] dated 11/05/2024 FINDINGS: Lung volumes are small, unchanged on the left and with interval progression of volume loss on the right. Airspace opacity at the bilateral lower lung zones with blunting at the costophrenic angles consistent with small bilateral pleural effusions and associated atelectasis and/or pneumonia. No pneumothorax or evident pulmonary edema. Heart size is normal. There is ostial fold thickening along the visualized ascending and transverse colon suggestive of colitis. IMPRESSION: 1. Decreased lung volumes with small bilateral pleural effusions and associated bibasilar atelectasis and/or pneumonia. 2. Haustral fold thickening along the visualized colon suspicious for colitis. 11/05/2024: EXAMINATION: CT chest abdomen pelvis wo con, 11/05/2024 16:20 CDT HISTORY: SBO COMPARISON: No comparisons available. FINDINGS: CT chest: No significant coronary calcification is present ([id number]) LUNGS: No tracheomalacia. No bronchiectasis. Moderate to large simple appearing bilateral pleural effusions with small basilar infiltrates. Minimal emphysematous changes. HEART AND PERICARDIUM: Mild cardiomegaly. No pericardial effusion. AORTA: Atherosclerotic changes of the aorta. MEDIASTINUM: Unremarkable. THYROID: The thyroid is unremarkable. CT abdomen: LIVER: Mild cirrhotic disease of the liver suspected. SPLEEN: Mild atrophy of the spleen.. KIDNEYS: Right Kidney: Right kidney mild hydronephrosis, no hydroureter. Left Kidney: Left kidney large simple appearing peripelvic renal cyst 5 x 6 cm. ADRENAL GLANDS: Unremarkable. PANCREAS: Moderate atrophy of the pancreas. Cystic pancreatic lesion of the body 1.5 x 1.6 cm incompletely evaluated, contrast-enhanced MRI recommended. GALLBLADDER/BILIARY: Mild distention of the gallbladder. STOMACH AND ESOPHAGUS: The stomach is decompressed. BOWEL/MESENTERY: Multiple fluid-filled loops of large bowel which appears thickened, absence of contrast limits evaluation. There is pericolonic stranding noted but no gross perforation or abscess, no pneumatosis. Appendix appears minimally thickened but there is no periappendiceal inflammation. Stranding throughout the visualized remaining mesentery. Nonspecific fluid-filled loops of small bowel, no dilated small bowel loops. RETROPERITONEUM: Unremarkable AORTA/VASCULATURE: Normal caliber aorta. FREE FLUID OR FREE AIR: Large amount of free fluid throughout the abdomen and pelvis. Small amount of free fluid in the presacral space.. CT pelvis: SOLID ORGANS/REPRODUCTIVE: Unremarkable. BLADDER: Bladder decompressed. LYMPHADENOPATHY: No lymphadenopathy. OSSEOUS STRUCTURES: No acute osseous abnormality.No suspicious lesions. OVERLYING SOFT TISSUES: Holland catheter in the bladder. IMPRESSION: 1. Diffuse colitis detailed above, correlate for underlying pseudomembranous colitis. No perforation or abscess. Follow-up recommended to assess. 2. CHF with superimposed probable bronchopneumonia. 3. Incidental findings above. Contrast-enhanced MRI recommended 11/03/24: EXAMINATION: CT abdomen pelvis wo con INDICATION: Diverticulitis. Left lower quadrant abdominal pain. TECHNIQUE: Computed tomography (CT) of the abdomen and pelvis was performed with 100 mL Omnipaque-350 intravenous contrast. Automated exposure control and iterative reconstruction technique were employed. The dose-length product was 413.15 mGy-cm. COMPARISON: 11/01/2024 FINDINGS: Mild dependent atelectasis in the bilateral lower lobes. Heart size is normal. Atherosclerotic coronary artery calcifications. No pericardial or pleural effusion. Dependently layering vicariously excreted contrast in the otherwise normal gallbladder. Liver, spleen, pancreas, bilateral adrenal glands and right kidney are normal. 4.4 cm left renal cyst. Moderate scattered diverticulosis with sigmoid and descending colon predominance. Significant interval progression of diffuse wall thickening throughout the colon with adjacent inflammatory stranding consistent with colitis. No pneumatosis, abscess or free intraperitoneal gas. Minimal amount of likely reactive ascites in the deep pelv is. Small bowel and appendix are normal. There are some residual excreted contrast in the normal bladder. The uterus is not identified and has likely been surgically resected. No pathologically enlarged abdominal or pelvic lymphadenopathy. Lumbar levoscoliosis with severe spondylosis. IMPRESSION: 1. Interval progression of radiographically uncomplicated selby colitis which could be infectious, inflammatory or less likely ischemic in etiology. 11/01/24: EXAMINATION: CT abdomen pelvis w con DATE: 11/01/2024 13:18 INDICATION: Left lower quadrant abdominal pain. TECHNIQUE: Computed tomography (CT) of the abdomen and pelvis was performed with 100 mL Omnipaque 350 intravenous contrast. Automated exposure control and iterative reconstruction technique were employed. The dose-length product was 402.73 mGy-cm. COMPARISON: None. FINDINGS: The visualized portions of lung bases demonstrate mild atelectasis. No pleural effusion. There is left atrial enlargement of the heart. There are coronary artery calcifications. No pericardial effusion. The liver, gallbladder, spleen, pancreas, and adrenal glands are normal. There is cortical thinning of the kidneys. There is a punctate parenchymal calcification in right kidney. There is a 4.4 cm cyst in left kidney. There are scattered diverticula in the colon. There is fat stranding around the ascending, descending, and sigmoid colon, worst around a diverticulum of the sigmoid colon, consistent with diverticulitis. The appendix is normal. There are no pathologically enlarged lymph nodes. There is trace pelvic ascites. There is lumbar levoscoliosis and severe spondylosis. IMPRESSION: 1. Sigmoid diverticulitis. No perforation or abscess. Review of Systems Constitutional: Constitutional: Reports no additional constitutional comp laints Eyes: Eyes: Reports no additional eye complaints ENT: Reports system reviewed and no additional complaints, except as documented Cardiovascular: Cardiovascular: Reports no additional cardiovascular complaints Respiratory: Respiratory: Reports no additional respiratory complaints Gastrointestinal: Gastrointestinal: Reports no additional gastrointestinal complaints Musculoskeletal: Musculoskeletal: Reports no additional musculoskeletal complaints Neurologic: Reports system reviewed and no additional complaints, except as documented Psychiatric: Psychiatric: Reports no additional psychiatric complaints Endocrine: Endocrine: Reports no additional endocrine complaints Hematologic/Lymphatic: Hematologic/Lymphatic: Reports no additional hematologic/lymphatic complaints Allergic/Immunologic: Allergic/Immunologic: Reports no additional allergic /immunologic complaints Exam Const: General: cooperative, healthy appearing and comfortable Orientation/consciousness: oriented to person, oriented to place and oriented to time HENMT: Head: normal to inspection Ears: hearing grossly normal bilaterally Eyes: General: appearance normal, both eyes and all related structures Neck: Neck: normal visual inspection Chest: Chest palpation & inspection: normal inspection of the chest Resp: Effort & Inspection: normal respiratory effort and able to speak in complete sentences Auscultation: crackles, no rales, no rhonchi, no wheezes and diminished lung sounds Other: decreased breath sounds right base, crackles bases Cardio: Jugular venous distension: no JVD GI: Inspection: normal to inspection Skin: General skin exam: normal color Neuro: General: oriented to person, oriented to place and oriented to time Extrem: General: normal to inspection Other: No edema Psych: Appearance: grossly normal Objective Data Vital Signs Vital Signs: Vital Signs - 24 hr 12/11/24 09:24 12/11/24 09:30 12/11/24 13:24 Temperature Pulse Rate 72 Respiratory Rate Blood Pressure Pulse Oximetry 92 90 Oxygen Delivery Room Air Room Air 12/11/24 14:00 12/11/24 19:46 12/11/24 20:00 Temperature 36.3 C L 36.6 C Pulse Rate 76 73 Respiratory Rate 20 18 Blood Pressure 129/49 L 135/46 L Pulse Oximetry 94 92 Oxygen Delivery Room Air 12/11/24 22:40 12/12/24 05:21 Temperature 36.5 C Pulse Rate 70 Respiratory Rate 18 Blood Pressure 124/51 L Pulse Oximetry 95 91 Oxygen Delivery Room Air Intake/Output Intake/Output: Intake & Output 12/09/24 12/10/24 12/11/24 12/12/24 23:59 23:59 23:59 23:59 Intake Total 1056 525 4232 440 Output Total 2500 1700 1000 300 Balance -620 -980 160 140 Meds/Results Medications: Active Medications Generic Name Dose Route Start Last Admin Trade Name Freq PRN Reason Stop Dose Admin Acetaminophen 650 mg 11/30/24 16:31 12/12/24 05:02 Acetaminophen 325 Mg Tablet PO 650 mg Q4H PRN Administration Mild Pain (1-3) or Fever Albuterol/Ipratropium 3 ml 12/08/24 10:36 Ipratropium 0.5 Mg/Albuterol Sulfate 2.5 Mg (Base) Ampul.Neb 3 Ml INHALATION Q6HRT PRN Shortness Of Breath Or Wheezing Alprazolam 0.25 mg 12/11/24 20:15 12/11/24 21:05 Alprazolam (*Crx) 0.25 Mg Tablet PO 0.25 mg HS PRN Administration Anxiety Amlodipine Besylate 10 mg 12/04/24 09:00 12/11/24 09:27 Amlodipine Besylate 10 Mg Tablet PO 10 mg DAILY KEVIN Administration Apixaban 5 mg 12/12/24 09:00 Apixaban 5 Mg Tablet PO Q12HR KEVIN Atorvastatin Calcium 10 mg 12/01/24 09:00 12/11/24 09:23 Atorvastatin 10 Mg Tablet PO 10 mg DAILY KEVIN Administration Calcium Carbonate 500 mg 12/01/24 08:00 12/11/24 17:40 Calcium/Vitamin D 500 Mg/5 Mcg (200 I.U.) Tablet PO 500 mg BIDWM KEVIN Administration Cyclosporine 1 drop 11/30/24 22:15 12/11/24 21:06 Cyclosporine 0.4 Ml Ophth Solution EACH EYE 1 drop Q12HR KEVIN Administration Docusate Sodium 100 mg 11/30/24 16:31 Docusate Sodium 100 Mg Capsule PO BID PRN Constipation Furosemide 40 mg 12/12/24 09:00 Furosemide 40 Mg Tablet PO DAILY [facility] Magnesium Oxide 400 mg 12/01/24 09:00 12/11/24 09:23 Magnesium Oxide 400 Mg Tablet PO 400 mg QAM KEVIN Administration Metoprolol Tartrate 50 mg 12/01/24 09:00 12/11/24 21:05 Metoprolol Tartrate 50 Mg Tab PO 50 mg Q12HR KEVIN Administration Sodium Chloride 1 spray 11/30/24 22:12 Saline 0.65% Rodrigo Soln 44 Ml Btl NASAL Q6HR PRN Congestion Sodium Chloride 1,500 mg 12/01/24 09:00 12/11/24 17:40 Sodium Chloride 500 Mg Tablet PO 1,500 mg BID KEVIN Administration Tamsulosin HCl 0.4 mg 12/01/24 09:00 12/11/24 09:23 Tamsulosin Hcl 0.4 Mg Capsule PO 0.4 mg QAM KEVIN Administration Trazodone HCl 50 mg 11/30/24 23:46 12/11/24 21:05 Trazodone Hcl 50 Mg Tablet PO 50 mg HS PRN Administration Insomnia Vancomycin HCl 125 mg 12/13/24 09:00 Vancomycin Hcl 125 Mg Oral Capsule PO 12/19/24 10:00 DAILY KEVIN Vancomycin HCl 125 mg 12/20/24 09:00 Vancomycin Hcl 125 Mg Oral Capsule PO 01/01/25 10:00 Q48H KEVIN Vancomycin HCl 125 mg 12/06/24 09:00 12/11/24 22:06 Vancomycin Hcl 125 Mg Oral Capsule PO 12/12/24 22:00 125 mg Q12HR KEVIN Administration Radiology Results: ITS Impressions Chest/Abdomen/Pelvis CT 11/30/24 15:30 IMPRESSION: 1. No significant change in a moderate-sized bilateral pleural effusions with complete collapse of the right lower lobe, partial collapse of the left lower lobe and additional mild dependent atelectasis in the remaining lobes of both lungs. 2. Radiographically uncomplicated colitis versus more likely descending colon diverticulitis. 3. Small amount of scattered ascites with no organized abscess or free intraperitoneal gas. 4. No interval change in 3 simple appearing cystic lesions at the body and tail the pancreas measuring up to 1.4 cm. The differential diagnosis includes pseudocyst, intraductal papillary mucinous neoplasm (IPMN), mucinous cystic neoplasm (MCN), and the less common serous cystadenoma and neuroendocrine tumor. Correlate for history of pancreatitis. Recommend 2 year follow-up pre and postcontrast MRI. 5. 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 Thoracentesis Ultrasound 12/01/24 10:20 IMPRESSION: 1. Successful ultrasound-guided thoracentesis yielding 450 mL of clear straw- colored fluid. Chest CT 12/06/24 15:35 IMPRESSION: 1. Small left and moderate-sized right posterior layering pleural effusions. 2. Dependent consolidation and groundglass opacities in the bilateral lower lobes with associated volume loss and favor atelectasis over pneumonia. 3. 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 Renal Ultrasound 12/10/24 11:24 IMPRESSION: 1. No hydronephrosis. 2. Post void bladder volume residual 3280 mL. ADDENDUM: 12/10/24 1358 Post void bladder volume residual 328 mL, not 3000 as erroneously reported initially Chest X-Ray 12/11/24 12:01 Impression: Bilateral pneumonia. The findings appear improved compared to the previous study Ankle X-Ray 12/11/24 15:51 Impression: No acute fracture or malalignment. Labs Labs: Laboratory Results - last 24 hr 12/09/24 12/10/24 12/11/24 04:56 05:00 04:41 WBC RBC Hgb Hct MCV MCH MCHC RDW Plt Count MPV Immature Gran % (Auto) Neut % (Auto) Lymph % (Auto) [place] % (Auto) Eos % (Auto) Baso % (Auto) Lymph # (Auto) [place] # (Auto) Eos # (Auto) Baso # (Auto) Abs Immat Gran (auto) Absolute Neuts (auto) Absolute Nucleated RBC Nucleated RBC % Sodium Potassium Chloride Carbon Dioxide Anion Gap BUN Creatinine Estim Creat Clear Calc Estimated GFR Glucose Uric Acid 6.0 Calcium Magnesium Total Bilirubin AST ALT Alkaline Phosphatase NT-Pro-B Natriuret Pep 463 H Total Protein Albumin c-ANCA Antibody <1:20 Atypical p-ANCA <1:20 p-ANCA Antibody <1:20 Livr/Kid Microsome 1 Ab <1.0 12/12/24 05:49 WBC 5.7 RBC 2.51 L Hgb 7.4 L Hct 23.5 L MCV 93.6 MCH 29.5 MCHC 31.5 L RDW 15.0 H Plt Count 266 MPV 9.1 Immature Gran % (Auto) 0.5 Neut % (Auto) 54.8 Lymph % (Auto) 30.9 [place] % (Auto) 11.4 H Eos % (Auto) 1.7 Baso % (Auto) 0.7 Lymph # (Auto) 1.77 [place] # (Auto) 0.7 H Eos # (Auto) 0.1 Baso # (Auto) 0.0 Abs Immat Gran (auto) 0.03 Absolute Neuts (auto) 3.1 Absolute Nucleated RBC 0.000 Nucleated RBC % 0.0 Sodium 132 L Potassium 3.4 Chloride 97 L Carbon Dioxide 30 Anion Gap 5 BUN 15 Creatinine 1.03 H Estim Creat Clear Calc 39 Estimated GFR 52 L Glucose 119 H Uric Acid Calcium 7.7 L Magnesium 1.6 Total Bilirubin 0.4 AST 37 H ALT 59 H Alkaline Phosphatase 106 NT-Pro-B Natriuret Pep Total Protein 5.9 L Albumin 2.8 L c-ANCA Antibody Atypical p-ANCA p-ANCA Antibody Livr/Kid Microsome 1 Ab
[2024-12-12] MEDS: SODIUM CHLORIDE 500 MG TABLET 1500 MG PO (09:09)
[2024-12-12 09:10] VITALS: PULSE 74
[2024-12-12] MEDS: ATORVASTATIN 10 MG TABLET PO (09:10)
[2024-12-12] MEDS: FUROSEMIDE 40 MG TABLET PO (09:10)
[2024-12-12] MEDS: APIXABAN 5 MG TABLET PO (09:10)
[2024-12-12] MEDS: METOPROLOL TARTRATE 50 MG TAB PO (09:10)
[2024-12-12] MEDS: CALCIUM/VITAMIN D 500 MG/5 MCG (200 I.U.) TABLET PO (09:11)
[2024-12-12] MEDS: TAMSULOSIN HCL 0.4 MG CAPSULE PO (09:11)
[2024-12-12] MEDS: VANCOMYCIN HCL 125 MG ORAL CAPSULE PO (09:12)
[2024-12-12] MEDS: cycloSPORINE 0.4 ML OPHTH SOLUTION 1 DROP EACH EYE (09:13)
[2024-12-12] MEDS: MAGNESIUM OXIDE 400 MG TABLET PO (09:13)
--- NOTE | 2024-12-12 10:57 | PCNFU ---
Nutrition Follow-Up Complete: Inadequate Oral Intake as related to Fluid Overload as evidenced by poor po intake reported. Goal:Adequate Intake of at least 75% of meals/supplements Pt progressing to goal, continue with same goal Pt current nutrition is Regular, Ensure Clear TID. Nutrition recommendation: continue with current plan of care Last recorded weight is 73.4 kg. Bowel Motility: +BM 12/11 Labs Reviewed:Hgb:7.4, HCT:23.5, Alb:2.8, Na:132, Cr:1.03, Glu:119 Meds Noted: ramana collier Skin: WNL Additional Notes: Pt continues on a regular diet, intake 10-100% and varied but pt reports trying and eating some of each meal, also drinking ensure clear well TID. Encourage po intake of meals and supplements. RD will monitor weight, labs, skin, diet orders, meds every 5 days.
--- NOTE | 2024-12-12 12:45 | PCPTNOTE ---
Attempted to see patient for PT, however patient was working with OT.
[2024-12-12 14:00] VITALS: BP 157/51; PULSE 73; RESP 18; TEMP 36.8; O2SAT 94
--- NOTE | 2024-12-12 14:15 | PM.DS ---
DS: Admitting Diagnosis Discharge Date 12/12/24 Admitting Diagnosis Abnormal blood work DS: Discharge Diagnosis Discharge Diagnosis (1) Acute hypoxic respiratory failure: Code(s): J96.01 - Acute respiratory failure with hypoxia Status: Acute (2) Pleural effusion: Code(s): J90 - Pleural effusion, not elsewhere classified Status: Acute (3) Elevated liver enzymes: Code(s): R74.8 - Abnormal levels of other serum enzymes Status: Acute (4) Clostridium difficile colitis: Code(s): A04.72 - Enterocolitis due to Clostridium difficile, not specified as recurrent Status: Acute (5) Ankle pain: Code(s): M25.579 - Pain in unspecified ankle and joints of unspecified foot Status: Acute (6) A-fib: Code(s): I48.91 - Unspecified atrial fibrillation Status: Acute (7) Hypertension: Code(s): I10 - Essential (primary) hypertension Status: Chronic (8) Hyponatremia: Code(s): E87.1 - Hypo-osmolality and hyponatremia Status: Acute (9) Bladder distension: Code(s): N32.89 - Other specified disorders of bladder Status: Acute (10) Anemia: Code(s): D64.9 - Anemia, unspecified Status: Acute DS: Summary Hospital Course Reason for hospitalization: 78yo female with chronic pleural effusions, CHF and new AFib with RVR who presents from rehab with abnormal labs of increased liver enzymes on 11/30. Patient had a prolonged course at [facility] (11/03 -> 11/29) due to CHF with fluid overload, DONOVAN resulting in temporary dialysis, CDiff Pancolitis, respiratory failure and new AFib with RVR. Please see H&P for details. Hospital Course: Patient readmitted on 11/30 for abnormal labs. She developed worsening oxygen requirement to 4L. Chest CT (11/30) showing moderate bilateral pleural effusions with complete collapse of the right lower lobe and partial collapse of the left lower lobe with dependent compressive atelectasis in the lingula, right middle and bilateral upper lobes. No pulmonary edema or pneumonia in the aerated portions of the lungs. No pericardial effusion. Right thoracentesis with removal of 450mL on 12/01: pH >7.5. SAAG <1.1, Pl Chol>55, LDH<[address] LDH/Serum LDH <0.[address] Prot/S Prot >0.5. Path negative for malignancy. AFB smear negative. Gram stain showing no organisms but moderate WBC. Appears a mixed sample: probably transudate with another process in play. Echo 11/07: EF 70% with Grade I diastolic dysfxn. Able to be weaned to room air. Chest CT 12/06 showing small left and moderate right pleural effusion with dependent consolidation and ground-glass opacities in the bilateral lower lobes. CXR on 12/11 before discharge showing small basilar infiltrates and effusions (doubt acute bacterial PNA). PETER 1:320 as a homogeneous pattern. UPEP with 2 M-spikes. UIF with Bence Quijano protein positive - kappa type. SIF with M-spike noted. Consider autoimmune hepatitis. Consider MM. Pulmonary following and appreciate their input. Was treated with IV Lasix with excellent UOP and weight loss. She ws changed to oral Lasix. Liver enzymes were climbing prior to discharge with AST peaking at 902 and ALT 667. TB/AlkPhos normal. Viral hepatitis panel negative. PETER positive 1:320 homogeneous. Anti-actin negative. No gamma spike. ANCA negative. CT abdomen pelvis showed normal liver, GB and spleen. Small amount of reactive ascites. With diuresis, AST and ALT trended down. [place] related to hepatic congestion. Plan to have patient follow up with GI after discharge. Patient with known recent pancolitis 2nd to [facility]. Patient tested positive for C diff on 11/09. Currently on a tapering dose of oral Vancomycin. CT abdomen pelvis showed fluid throughout the colon consistent with diarrhea, persistent wall thickening of the colon (mild at the cecum and moderate along the descending and proximal sigmoid colon) and more localized paracolonic inflammatory stranding along the sigmoid colon and would favor diverticulitis over colitis. Small bowel and appendix are normal. Small amount of likely reactive ascites but no organized abscess or free intraperitoneal gas. WBC normal and benign abdominal exam. Doubt diverticulitis at this time. Diarrhea has resolved. Outpatient colonoscopy by GI at some point in near future. EKG on admission showing normal sinus rhythm. We continued metoprolol and Eliquis. Patient with chronic hyponatremia. Sodium was running 127-132. We continued with fluid restriction and sodium chloride supplementation. Patient with DONOVAN last admission resulting temporary HD 11/10 -> 11/14. This improved and Cr normalized. Cr on this admission was 0.85. CT Abd/pelvis showing mild bilateral hydroureteronephrosis which may be related to bladder outlet obstruction or neurogenic bladder with marked distention of the bladder. Holland placed but since removed on 12/05. Cr worsened to 1.05-1.2 range without benefit with Holland in or out but stable. Cr at discharge was 1.03. Renal US showing no hydronephrosis. PVR 328mL. Patient has a normal baseline Hgb. Hgb trended down to 8-9 range last admission. Iron panel 11/21: total iron 17, TIBC 180, iron sat 9%, ferritin 162. B12/folate normal in August. Urine protein negative here. Hgb mostly in the 7-8 range here and stable. No signs of active GI bleeding. Per GI, plan to discuss in the office outpatient if further evaluation and need for endoscopic evaluation to rule out GI source of blood loss or malabsorption Patient with nontraumatic right ankle pain. Uric acid was 6. Rt ankle xray showing no acute findings. She overall did well and was able to be discharged on 12/12/24. Discharge instructions discussed including medication side effects. All questions answered. Status at Discharge Cognitive/behavioral status at discharge: stable Time Spent with Patient Time attestation: Total time spent providing and/or coordinating discharge services: 35 minutes Time spent: Greater than 30 minutes Exam Narrative: AF 97.7 124/51 74 18 91% ra Gen - NARD Chest - decreased BS right mid and lower lung field and left base. nml RR CV - RRR S1/S2 Abd - soft, NT/ND Ext - minimal right ankle tenderness. Psych - nml mood and affect Skin - warm and dry DS: Data Data Completed and Pending Completed studies during hospitalization: Pending at discharge 12/01/24 09:50 Cytology [PTH] Routine Labs on day of discharge: Labs from last 24 hours 12/12/24 12/11/24 12/09/24 05:49 04:41 04:56 WBC 5.7 RBC 2.51 L Hgb 7.4 L Hct 23.5 L MCV 93.6 MCH 29.5 MCHC 31.5 L RDW 15.0 H Plt Count 266 MPV 9.1 Immature Gran % (Auto) 0.5 Neut % (Auto) 54.8 Lymph % (Auto) 30.9 [place] % (Auto) 11.4 H Eos % (Auto) 1.7 Baso % (Auto) 0.7 Lymph # (Auto) 1.77 [place] # (Auto) 0.7 H Eos # (Auto) 0.1 Baso # (Auto) 0.0 Abs Immat Gran (auto) 0.03 Absolute Neuts (auto) 3.1 Absolute Nucleated RBC 0.000 Nucleated RBC % 0.0 Sodium 132 L Potassium 3.4 Chloride 97 L Carbon Dioxide 30 Anion Gap 5 BUN 15 Creatinine 1.03 H Estim Creat Clear Calc 39 Estimated GFR 52 L Glucose 119 H Uric Acid 6.0 Calcium 7.7 L Magnesium 1.6 Total Bilirubin 0.4 AST 37 H ALT 59 H Alkaline Phosphatase 106 NT-Pro-B Natriuret Pep 463 H Total Protein 5.9 L Albumin 2.8 L PETER Screen Pending c-ANCA Antibody <1:20 Atypical p-ANCA <1:20 p-ANCA Antibody <1:20 Preliminary micro results at discharge 12/01/24 09:50 Fungal Culture - Preliminary Pleural Fluid 12/01/24 09:50 Acid Fast Bacilli Culture - Preliminary Pleural Fluid Discharge Plan Discharge Attending physician on discharge: Olegario Johnson Consulting providers: Chloe Wisdom; Shama Nguyễn; Thao Brooke Discharging Clinician: Olegario Johnson Anticipated Discharge Date/Time: 12/12/24 14:28 Patient Disposition: [facility] Activity: as tolerated Diet: heart healthy Discharge Instructions: Oxygen at rest and with activity per protocol at [facility] Oxygen 2 L at night. Titrate oxygen at night to keep saturations greater than or equal to 90%. Fluid restriction diet: <1600mL per day Check blood pressure 1 to 2 times a day. Record for the doctor's review. Take precautions to avoid falls. Rise slowly from a lying or sitting position. Pause before standing or walking. Check daily morning weights after voiding. Call the doctor if the patient gains more than 3 lb in 2 days or 5 lb in 1 week. Contact the doctor if the patient has any type of trauma, lightheadedness with standing or other worrisome symptoms. Avoid NSAIDs (ibuprofen, naproxen, Aleve). Tylenol is safe to take. Follow-up with the provider at the facility. Follow-up with Pulmonary in 3-4 weeks. Please call for an appointment. Follow-up with GI in 3-4 weeks. Please call for an appointment. Thank you for using [facility] for your health care needs. Patient Instructions: Apixaban (By mouth), Blood Thinners (GEN) Patient Language: Sierra Leonean Follow-up/Referrals: Yaniv Elmore MD [Primary Care Provider, [facility]] - Call for Appointment Deejay Stephens MD [Physician, Gastroenterology] - Call for Appointment Cale Liu MD [Physician, Pulmonology] - Call for Appointment Discharge Medications: New tamsulosin 0.4 mg Capsule 0.4 mg PO QAM Qty: 30 0RF furosemide 40 mg Tablet 40 mg PO DAILY Qty: 30 0RF Eliquis 5 mg Tablet 5 mg PO Q12HR Qty: 60 0RF atorvastatin 10 mg Tablet 10 mg PO DAILY Qty: 30 0RF Continued Restasis MultiDose 0.05 % drops 1 drp EACH EYE Q12H Qty: 5.5 3RF ondansetron 4 mg tablet,disintegrating 4 mg PO Q6H PRN (Reason: nausea and vomiting) Qty: 10 0RF acetaminophen 325 mg Tablet 650 mg PO Q4H PRN (Reason: Headache) Qty: 30 0RF calcium carbonate-vitamin D3 [Oyster Shell Calcium-Vit D3] 500 mg-5 mcg (200 unit) Tablet 1 tablet PO BIDWM Qty: 60 0RF magnesium oxide 400 mg (241.3 mg magnesium) Tablet 400 mg PO QAM Qty: 30 0RF metoprolol tartrate 50 mg Tablet 50 mg PO BID Qty: 60 0RF Saline Mist 0.65 % Aerosol,[place] 1 spray intranasal Q6HR PRN (Reason: Congestion) Qty: 10 0RF alprazolam 0.25 mg tablet 0.25 mg PO QHS PRN (Reason: anxiety) Qty: 10 0RF Rx Instructions: must last 90 days amlodipine 10 mg tablet 10 mg PO DAILY Qty: 90 1RF vancomycin 250 mg Capsule 125 mg PO Q12HR Qty: 1 0RF Rx Instructions: taper- week 2 of , start 12/06/24 and through 12/12/24 vancomycin 125 mg Capsule 125 mg PO DAILY Qty: 7 0RF Rx Instructions: taper- week 3 of , start 12/13/24 through 12/19/24 vancomycin 125 mg Capsule 125 mg PO Q48H Qty: 7 0RF Rx Instructions: taper- weeks 4&5 of , start 12/20/24. finish taper 01/01/25 Changed ipratropium-albuterol 0.5 mg-3 mg(2.5 mg base)/3 mL Solution For Nebulization 3 ml inhalation Q6HRT PRN (Reason: Shortness Of Breath Or Wheezing) Qty: 90 0RF sodium chloride 1,000 mg Tablet,Soluble 1,500 mg PO BID Qty: 60 0RF trazodone 50 mg tablet 50 mg PO HS PRN (Reason: Insomnia) Qty: 10 0RF Held terbinafine HCl 250 mg tablet 250 mg PO DAILY Hold Instructions: HOLD - Resume when okay with provider Rx Instructions: for 7 days one week out to the month spironolactone 50 mg tablet See Rx Instructions .ROUTE .COMPLEX Qty: 90 0RF Hold Instructions: HOLD - Resume when okay with provider Dose Instruction: Take 1 tablet by mouth once daily Rx Instructions: Take 1 tablet by mouth once daily lisinopril 40 mg tablet 40 mg PO DAILY Qty: 90 1RF Hold Instructions: HOLD - Resume when okay with provider Discontinued Eliquis 2.5 mg Tablet 2.5 mg PO Q12HR Qty: 60 0RF furosemide 20 mg Tablet 20 mg PO BID Qty: 60 0RF hydrocodone-acetaminophen 5-325 mg tablet 1 tablet PO Q6H PRN (Reason: pain) Qty: 12 0RF vancomycin 125 mg Capsule 125 mg PO Q8HR Rx Instructions: taper- week 1 of (start 11/28/24) simvastatin 20 mg tablet 20 mg PO DAILY Date of admission: 12/01/24 08:05 Primary Care Provider: Yaniv Elmore Admitting Provider: Isabell Domínguez Attending physician on admission: Isabell Domínguez Condition: Stable Hospitalist MIPS Heart Failure (Exclusion) Patient has history of Heart Transplant or Left Ventricular Assistive Device?: No IF YES, STOP HERE Heart Failure (Qualifier) Patient has current or prior documentation of LVEF less than or equal to 40%, or mod/servere depressed LVSF?: No IF NO, STOP HERE
[2024-12-15 15:09] LABS: ANA by IFA Rfx Titer/Pattern Positive (.); ANA by IFA Rfx YES YES
--- NOTE | 2025-01-15 07:54 | PC.NURSE ---
AFB cx is negative. Dr. Johnson aware. Results sent to Dr. Liu for PETER.
== END 2024-12-12 16:55 | DRG 640 ==
LOC: ANHED 17:08 → ANH3MEDSUR 18:55 → ANH3MED 19:39
PROVIDERS: Internal Medicine; Internal Medicine Critical Care Medicine; Internal Medicine Pulmonary Disease; Nurse Practitioner Family; Nurse Practitioner Gerontology; Student in an Organized Health Care Education/Training Program; Admitting Provider Internal Medicine; Emergency Provider Emergency Medicine; PCP Family Medicine; Visit Provider Internal Medicine
DX: E87.79 Other fluid overload (principal); J96.01 Acute respiratory failure with hypoxia; A04.72 Enterocolitis due to Clostridium difficile, not specified as recurrent; J90 Pleural effusion, not elsewhere classified; K86.2 Cyst of pancreas; N13.30 Unspecified hydronephrosis; N17.9 Acute kidney failure, unspecified; J98.11 Atelectasis; K74.60 Unspecified cirrhosis of liver; E87.1 Hypo-osmolality and hyponatremia; E87.6 Hypokalemia; N31.9 Neuromuscular dysfunction of bladder, unspecified; D50.9 Iron deficiency anemia, unspecified; R74.8 Abnormal levels of other serum enzymes; E78.5 Hyperlipidemia, unspecified; I48.91 Unspecified atrial fibrillation; D63.8 Anemia in other chronic diseases classified elsewhere; N32.89 Other specified disorders of bladder; F41.9 Anxiety disorder, unspecified; I11.0 Hypertensive heart disease with heart failure; I50.9 Heart failure, unspecified; M25.571 Pain in right ankle and joints of right foot
CPT/HCPCS: 32555; 36415; 71045; 71047; 71260; 73610; 74177; 76770; 80048; 80053; 80074; 80143; 81003; 82042; 82150; 82728; 82945; 83540; 83550; 83615; 83690; 83735; 83880; 83986; 84100; 84145; 84157; 84311; 84478; 84484; 84550; 85025; 85027; 85610; 85730; 86015; 86037; 86038; 86364; 86376; 87101; 87116; 87206; 88108; 88305; 89051; 93005; 94640; 94667; 94762; 96365; 96367; 96375; 97110; 97161; 97166; 97530; 97535; 99285; A9270; G0378; J0612; J1938; J3475; P9047; Q9967

== ENCOUNTER 2025-01-03 12:19 | Outpatient (CLI) | payer MEDICARE, SELFPAY ==
--- NOTE | ~2025-01-03 | XR_ITS ---
Examination: XR chest 2V Clinical History: K76.9 - Liver disease, unspecified Comparison: 12/11/2024 Technique: PA and Lateral Findings: Cardiomediastinal silhouette normal size and configuration. Mild bibasilar opacities persists. Small pleural effusions. No acute bony abnormality. Osteopenia. IMPRESSION: 1. Minimal persistent bibasilar atelectasis and/or airspace disease. 2. Trace pleural effusions. Reviewed, dictated and finalized at location [facility]
[2025-01-04 14:09] LABS: Anti-CCP Ab, IgG/IgA 7 units (0-19)
== END 2025-01-03 12:20 | disposition home or self-care (01) ==
LOC: ANHIMG 12:21 → ANHLAB 12:32
PROVIDERS: PCP Nurse Practitioner Family; Visit Provider Internal Medicine Pulmonary Disease
DX: K76.9 Liver disease, unspecified (principal); J84.9 Interstitial pulmonary disease, unspecified
CPT/HCPCS: 36415; 71046; 86200; 86430